=== PATIENT | female | born 1940 | race Caucasian/White ===

== ENCOUNTER 2021-03-05 19:23 | Emergency (ER) | payer MEDICARE ==
--- OUTSIDE RECORDS SUMMARY | 2021-03-05 19:27 | XMS REPORT | Continuity of Care Document ---
:1940 Author Organization [facility] t Address [address] [place] [address] Care Team Providers Name Role Phone MD RAKESH MILLAN Attending Clinician Unavailable YANA Attending Clinician Unavailable Josseline CASTANEDA Attending Clinician Unavailable SUSANNE Attending Clinician Unavailable MD TARA SKINNER Attending Clinician Unavailable DECLAN Attending Clinician Unavailable ALPESH Attending Clinician Unavailable MD RAKESH MILLAN Admitting Clinician Unavailable SUSANNE Admitting Clinician Unavailable MD TARA SKINNER Admitting Clinician Unavailable ALPESH Admitting Clinician Unavailable Problems This patient has no known problems. Allergies, Adverse Reactions, Alerts This patient has no known allergies or adverse reactions. Medications This patient has no known medications. Procedures This patient has no known procedures. Encounters Start End Encounter Admission Attending Care Care Encounter Source Date/Time Date/Time Type Type Clinicians Facility Department ID 2021-03-03 2021-03-03 Outpatient [facility] [id number] 00:00:00 00:00:00 PEDRO [address] 2021-02-19 2021-02-19 [facility] [id number] 00:00:00 00:00:00 PEDRO [address] 2021-02-19 2021-02-19 [facility] [id number] 00:00:00 00:00:00 PEDRO [address] 2021-02-19 2021-02-19 [facility] [id number] 00:00:00 00:00:00 PEDRO [address] 2021-02-19 2021-02-19 [facility] [id number] 00:00:00 00:00:00 PEDRO [facility] 2021-02-02 2021-02-02 Outpatient YANA, [facility] [id number] 00:00:00 00:00:00 PEDRO [address] [facility] 2021-01-08 2021-01-08 Outpatient YANA, [facility] [id number] 00:00:00 00:00:00 PEDRO [facility] 2021-01-08 2021-01-08 Outpatient YANA, [facility] [id number] 00:00:00 00:00:00 PEDRO [address] [facility] 2020-12-18 2020-12-18 Outpatient LEONEL, [facility] [id number] 06:29:00 17:01:00 [facility] 2020-08-06 2020-08-07 Outpatient SUSANNE, [facility] [id number] 00:00:00 00:00:00 JANAK [address] [facility] 2020-07-25 2020-07-25 Outpatient DECLAN, [facility] [id number] 00:00:00 00:00:00 FELIPE 354 [facility] 2020-07-11 2020-07-19 Inpatient SUSANNE, [place] [id number] 00:00:00 00:00:00 JANAK [address] [facility] 2019-11-20 2019-11-21 Inpatient E ALPESH, [facility] [id number] 10:38:00 15:47:00 MART[facility] 2019-02-05 2019-02-05 Inpatient U [facility] [id number] 10:30:00 07:48:00 kwame [facility] Results Test Description Test Time Test Comments Results Result Comments Source SARS-CoV-2 (COVID-19) RNA [Presence] in Respiratory sp ecimen by 2021-03-03 15:56:37 CHANTEL with probe detection Test Item Value Reference Range Interpretation Comme nts SARS-CoV-2 (COVID-19) RNA [Presence] in Respiratory Detected No t-Detected specimen by CHANTEL with probe detection (test code = 15645-3) 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 (test code = 62459-2) Whether the patient has symptoms related to condition of interest (test code = 11019-1) Patient was hospitalized because of this condition (test code = 70019-2) Whether the patient was admitted to intensive care unit (ICU) for condition of interest (test code = 22260-5) Whether patient resides in a congregate care setting (test code = 98484-2) SARS-CoV-2 (COVID-19) RNA [Presence] in Respiratory specimen by CHANTEL with probe [id number] 00:59:54 Test Item Value Reference Range Interpretation Comments SARS-CoV-2 (COVID-19) RNA Not detected Not-Detected [Presence] in Respiratory specimen by CHANTEL with probe detection (test code = 97576-6) 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 (test code = 95439-4) Whether the patient has symptoms related to condition of interest (test code = 39405-8) Patient was hospitalized because of this condition (test code = 38249-0) Whether the patient was admitted to intensive care unit (ICU) for condition of interest (test code = 22453-1) Whether patient resides in a congregate care setting (test code = 90896-2) SARS-CoV-2 (COVID-19) RNA [Presence] in Respiratory specimen by CHANTEL with probe [id number] 00:35:59 Test Item Value Reference Range Interpretation Comments SARS-CoV-2 (COVID-19) RNA Not detected Not-Detected [Presence] in Respiratory specimen by CHANTEL with probe detection (test code = 64302-7) 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 (test code = 59083-5) Whether the patient has symptoms related to condition of interest (test code = 02746-7) Patient was hospitalized because of this condition (test code = 16225-9) Whether the patient was admitted to intensive care unit (ICU) for condition of interest (test code = 45862-2) Whether patient resides in a congregate care setting (test code = 94308-1) SARS-CoV-2 (COVID-19) RNA [Presence] in Respiratory specimen by CHANTEL with probe [id number] 01:44:30 Test Item Value Reference Range Interpretation Comments SARS-CoV-2 (COVID-19) RNA Not detected Not-Detected [Presence] in Respiratory specimen by CHANTEL with probe detection (test code = 54728-6) 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 (test code = 38954-1) Whether the patient has symptoms related to condition of interest (test code = 58698-1) Patient was hospitalized because of this condition (test code = 54956-4) Whether the patient was admitted to intensive care unit (ICU) for condition of interest (test code = 05689-3) Whether patient resides in a congregate care setting (test code = 43449-6)
[2021-03-05 21:43] LABS: Arterial Blood Carboxyhemoglob 1.8 % (0-1.5); Blood Gas Oxyhemoglobin 93.2 % (94-97); Blood O2 Saturation 95.7 % (92-98.5)
[2021-03-05] MEDS ORDERED: ONDANSETRON 4 MG/2 ML VIAL ONE (22:06)
[2021-03-05] MEDS ORDERED: NA CHLORIDE 0.9% 1,000 ML ONE (22:06)
[2021-03-05 22:49] LABS: Absolute Lymphocytes (CBC) 0.7 K/uL (0.7-4.9); Hematocrit 25.1 % (36.0-45.0); Lymphocytes % 7.8 % (15.3-44.8); MPV 6.8 fL (7.6-11.3); RBC Red Blood Cell Count 2.72 M/uL (3.86-4.86)
[2021-03-05 23:02] LABS: Protime INR 1.08
[2021-03-05 23:05] LABS: SARS-COV-2 RT PCR POSITIVE (NEGATIVE)
[2021-03-05 23:15] LABS: Urine Bacteria 20-50 /HPF (<20); Urine Mucus 1+ /HPF (NONE SEEN)
[2021-03-05 23:17] LABS: ALT/SGPT 13 U/L (12-78); AST/SGOT 12 U/L (15-37); Albumin 2.6 g/dL (3.4-5.0); Alkaline Phosphatase 81 U/L (45-117); BUN Blood Urea Nitrogen 66 mg/dL (7-18); Bicarbonate 26 mmol/L (21-32); Bilirubin Direct 0.1 mg/dL (0-0.2); Bilirubin Total 0.4 mg/dL (0.2-1.0); Ferritin 869.5 ng/mL (8-388); Glucose Level 156 mg/dL (74-106); Lipase 202 U/L (73-393); Protein, Total 6.9 g/dL (6.4-8.2); Sodium Level 134 mmol/L (136-145); Troponin (Emerg Dept Use Only) < 0.02 ng/mL (0.0-0.045)
--- NOTE | 2021-03-05 23:53 | ER ---
Nurse's Notes [facility] Name: Sierra Iqbal Age: 80 yrs Sex: Female : 1940 Arrival Date: 03/05/2021 Time: 19:28 Bed 7 Private MD: Diagnosis: Positive Covid 19 Presentation: 03/05 20:08 Chief complaint: Patient states: Tested postitve for Covid on 03/03/21, today I woke up vc1 feeling SOB and vomiting with a fever. I last took Motrin at around 4 pm. Coronavirus screen: Client denies travel out of the [place] in the last 14 days. Client reports previous positive COVID test result. Date of collection: March 03, 2021. Ebola Screen: Patient negative for fever greater than or equal to 101.5 degrees Fahrenheit, and additional compatible Ebola Virus Disease symptoms. Initial Sepsis Screen: Does the patient meet any 2 criteria? RR > 20 per min. Does the patient have a suspected source of infection? No. Patient's initial sepsis screen is negative. Risk Assessment: Do you want to hurt yourself or someone else? Patient reports no desire to harm self or others. Onset of symptoms was March 03, 2021. 20:08 Method Of Arrival: Wheelchair vc1 20:08 Acuity: BRAD 2 vc1 Triage Assessment: 20:11 General: Appears uncomfortable, ill, obese, Behavior is cooperative, drowsy, flat. vc1 Pain: Complains of pain in chest while coughing. Respiratory: Reports shortness of breath labored breathing Onset: The symptoms/episode began/occurred the patient has moderate shortness of breath. Historical: - Allergies: 22:46 No Known Allergies; sm5 - Home Meds: 22:46 isosorbide mononitrate 20 mg Oral tab 1 tab three times a day [Active]; hydralazine 25 sm5 mg Oral tab 1 tab three times a day [Active]; calcium acetate(phosphat bind) 667 mg oral tab 2 tabs before meals [Active]; carvedilol 6.25 mg oral tab 1 tab 2 times per day [Active]; Lasix 40 mg Oral tab 1 tab once daily [Active]; Vitamin C 1,000 mg Oral tab 1,000 mg daily [Active]; Vitamin D3 25 mcg (1,000 unit) oral tab daily [Active]; Iron CR 325mg Oral [Active]; Lantus U-100 Insulin 100 unit/mL Sub-Q soln 50 unit nightly [Active]; aspirin 81 mg Oral tab daily [Active]; atorvastatin 40 mg oral tab 1 tab once daily [Active]; - PMHx: 22:46 Hypertensive disorder; Congestive heart failure; Diabetes mellitus; ESRD; sm5 - PSHx: 22:46 Total abdominal hysterectomy; Pacemaker placement; sm5 - Immunization history:: Client reports receiving the 2nd dose of the Covid vaccine, Flu vaccine is up to date. - Social history:: Smoking status: unknown. Screenin:44 Abuse screen: Denies threats or abuse. Denies injuries from another. Nutritional sm5 screening: No deficits noted. Tuberculosis screening: No symptoms or risk factors identified. Fall Risk No fall in past 12 months (0 pts). No secondary diagnosis (0 pts). IV access (20 points). Ambulatory Aid- None/Bed Rest/Nurse Assist (0 pts). Gait- Normal/Bed Rest/Wheelchair (0 pts) Mental Status- Oriented to own ability (0 pts). Total Calvillo Fall Scale indicates No Risk (0-24 pts). Assessment: 22:56 General: Appears in no apparent distress. Behavior is calm, cooperative. Neuro: No sm5 deficits noted. Level of Consciousness is awake, alert, Oriented to person, place, time, situation. Cardiovascular: Capillary refill < 3 seconds Patient's skin is warm and dry. Rhythm is sinus rhythm. Respiratory: Airway is patent Trachea midline Respiratory effort is even, labored, Breath sounds are clear. GI: Reports nausea. Vital Signs: 20:08 BP 102 / 59; Pulse 78; Resp 28; Temp 98.8; Pulse Ox 98% on R/A; Weight 91.63 kg; Height vc1 5 ft. 5 in. (165.10 cm); Pain 3/10; 23:00 BP 119 / 56; Pulse 73; Resp 20; Pulse Ox 94% on R/A; sm5 20:08 Body Mass Index 33.61 (91.63 kg, 165.10 cm) vc1 ED Course: 19:28 Patient arrived in ED. wm 20:11 Triage completed. vc1 21:09 Yoni Dave MD is Attending Physician. pkl 21:19 Marcos, Sylvie, RN is Primary Nurse. sm5 21:59 CXR XRAY In Process Unspecified. EDMS 22:42 COVID-19/FLU A+B Sent. sm5 22:43 BMP Sent. sm5 22:43 Blood Culture Adult (2) Sent. sm5 22:43 C-Reactive Protein Sent. sm5 22:43 CBC with Diff Sent. sm5 22:43 D-Dimer Sent. sm5 22:43 Ferritin Sent. sm5 22:43 Flu Sent. sm5 22:43 LFT's Sent. sm5 22:43 Lactate Sent. sm5 22:43 Lipase Sent. sm5 22:43 PT-INR Sent. sm5 22:43 Procalcitonin Sent. sm5 22:43 Ptt, Activated Sent. sm5 22:43 Strep Sent. sm5 22:43 Troponin (emerg Dept Use Only) Sent. sm5 22:43 Urine Microscopic Only Sent. sm5 22:45 Arm band placed on right wrist. sm5 22:45 Patient has correct armband on for positive identification. Placed in gown. Bed in low sm5 position. Call light in reach. Side rails up X2. 23:00 No provider procedures requiring assistance completed. Inserted saline lock: 20 gauge sm5 in right hand, using aseptic technique. 23:01 Inserted saline lock: 20 gauge in left antecubital area, using aseptic technique. Blood sm5 collected. 03/06 00:22 IV discontinued, intact, bleeding controlled, No redness/swelling at site. Pressure sm5 dressing applied. Administered Medications: 03/05 22:08 Drug: Zofran (Ondansetron) 4 mg Route: IVP; Site: right hand; 5 03/06 00:23 Follow up: Response: Nausea is decreased 5 03/05 22:09 Drug: NS 0.9% 1000 ml Route: IV; Rate: 75 ml/hr; Site: right hand; sm5 03/06 00:15 Follow up: IV Status: Completed infusion; IV Intake: 300ml 5 00:15 Drug: Zithromax (azithromycin) 500 mg Route: PO; 5 00:24 Follow up: Response: Medication administered at discharge. 5 Intake: 00:15 IV: 300ml; Total: 300ml. 5 Outcome: 03/05 23:52 Discharge ordered by MD. tate 03/06 00:21 Discharged to home via wheelchair, with family. sm5 Condition: stable Discharge instructions given to patient, family, Instructed on discharge instructions, follow up and referral plans. medication usage, Demonstrated understanding of instructions, follow-up care, medications, Prescriptions given X 3. 00:24 Patient left the ED. 5 Signatures: Dispatcher [employer] EDYoni Ortega MD MD pkl Marsh, Wendy wm Mazur, Sarah, RN RN 5 Kourtney Guillen RN RN vc1 Corrections: (The following items were deleted from the chart) 03/05 22:56 22:46 PMHx: Kidney disease; 5 [facility]
--- NOTE | 2021-03-05 23:53 | EDPHYS ---
Physician Documentation [facility] Name: Sierra Iqbal Age: 80 yrs Sex: Female : 1940 Arrival Date: 03/05/2021 Time: 19:28 Bed 7 Private MD: ED Physician Yoni Dave HPI: 03/05 21:49 This 80 yrs old Female presents to ER via Wheelchair with complaints of Shortness Of pkl Breath, Fever, +COVID, Vomiting. 21:49 The patient has shortness of breath at rest. Onset: The symptoms/episode began/occurred pkl today. Associated signs and symptoms: Pertinent positives: non-productive cough, fever, nausea, vomiting. 21:50 Patient tested positive for Covid 19 on 03/03/21 in [place]. Patient has multiple medical pkl conditions, including hypertension, congestive heart failure, pacemaker, diabetes, chronic renal failure on daily peritoneal dialysis. Patient scheduled for triple by pass end of this month.. Historical: - Allergies: 22:46 No Known Allergies; sm5 - Home Meds: 22:46 isosorbide mononitrate 20 mg Oral tab 1 tab three times a day [Active]; hydralazine 25 sm5 mg Oral tab 1 tab three times a day [Active]; calcium acetate(phosphat bind) 667 mg oral tab 2 tabs before meals [Active]; carvedilol 6.25 mg oral tab 1 tab 2 times per day [Active]; Lasix 40 mg Oral tab 1 tab once daily [Active]; Vitamin C 1,000 mg Oral tab 1,000 mg daily [Active]; Vitamin D3 25 mcg (1,000 unit) oral tab daily [Active]; Iron CR 325mg Oral [Active]; Lantus U-100 Insulin 100 unit/mL Sub-Q soln 50 unit nightly [Active]; aspirin 81 mg Oral tab daily [Active]; atorvastatin 40 mg oral tab 1 tab once daily [Active]; - PMHx: 22:46 Hypertensive disorder; Congestive heart failure; Diabetes mellitus; ESRD; sm5 - PSHx: 22:46 Total abdominal hysterectomy; Pacemaker placement; sm5 - Immunization history:: Client reports receiving the 2nd dose of the Covid vaccine, Flu vaccine is up to date. - Social history:: Smoking status: unknown. ROS: 21:50 Eyes: Negative for injury, pain, redness, and discharge, ENT: Negative for injury, pkl pain, and discharge, Neck: Negative for injury, pain, and swelling, Cardiovascular: Negative for chest pain, palpitations, and edema. 21:50 Respiratory: Positive for cough, with no reported sputum, shortness of breath, at rest. 21:50 Abdomen/GI: Positive for nausea and vomiting. 21:50 Back: Negative for acute changes. 21:50 : Negative for urinary symptoms. 21:50 MS/extremity: Negative for acute changes. 21:50 Skin: Negative for rash. 21:50 Neuro: Negative for altered mental status, loss of consciousness. Exam: 21:50 Head/Face: Normocephalic, atraumatic. Eyes: Pupils equal round and reactive to light, pkl extra-ocular motions intact. Lids and lashes normal. Conjunctiva and sclera are non-icteric and not injected. Cornea within normal limits. Periorbital areas with no swelling, redness, or edema. ENT: Nares patent. No nasal discharge, no septal abnormalities noted. Tympanic membranes are normal and external auditory canals are clear. Oropharynx with no redness, swelling, or masses, exudates, or evidence of obstruction, uvula midline. Mucous membranes moist. Neck: Trachea midline, no thyromegaly or masses palpated, and no cervical lymphadenopathy. Supple, full range of motion without nuchal rigidity, or vertebral point tenderness. No Meningismus. Chest/axilla: Normal chest wall appearance and motion. Nontender with no deformity. No lesions are appreciated. Cardiovascular: Regular rate and rhythm with a normal S1 and S2. No gallops, murmurs, or rubs. Normal PMI, no JVD. No pulse deficits. Respiratory: Lungs have equal breath sounds bilaterally, clear to auscultation and percussion. No rales, rhonchi or wheezes noted. No increased work of breathing, no retractions or nasal flaring. Abdomen/GI: Soft, non-tender, with normal bowel sounds. No distension or tympany. No guarding or rebound. No evidence of tenderness throughout. Back: No spinal tenderness. No costovertebral tenderness. Full range of motion. Skin: Warm, dry with normal turgor. Normal color with no rashes, no lesions, and no evidence of cellulitis. MS/ Extremity: Pulses equal, no cyanosis. Neurovascular intact. Full, normal range of motion. Neuro: Awake and alert, GCS 15, oriented to person, place, time, and situation. Cranial nerves II-XII grossly intact. Motor strength 5/5 in all extremities. Sensory grossly intact. Cerebellar exam normal. Normal gait. Vital Signs: 20:08 BP 102 / 59; Pulse 78; Resp 28; Temp 98.8; Pulse Ox 98% on R/A; Weight 91.63 kg; Height vc1 5 ft. 5 in. (165.10 cm); Pain 3/10; 23:00 BP 119 / 56; Pulse 73; Resp 20; Pulse Ox 94% on R/A; sm5 20:08 Body Mass Index 33.61 (91.63 kg, 165.10 cm) vc1 MDM: 21:09 Patient medically screened. pkl 23:46 Data reviewed: vital signs, nurses notes, lab test result(s), EKG, radiologic studies, pkl plain films. ED course: Discussed lab, EKG and imaging studies. Options given to patient for observation or she may go home and return if her symptoms become worse. Patient and daughter prefer to go home and return if her symptoms become worse.. 03/05 21:23 Order name: BMP; Complete Time: 23:30 pkl 03/05 21:23 Order name: Blood Culture Adult (2) pkl 03/05 21:23 Order name: C-Reactive Protein; Complete Time: 23:30 pkl 03/05 21:23 Order name: CBC with Diff; Complete Time: 22:52 pkl 03/05 21:23 Order name: D-Dimer; Complete Time: 23:07 pkl 03/05 21:23 Order name: Ferritin; Complete Time: 23:30 pkl 03/05 21:23 Order name: LFT's; Complete Time: 23:30 pkl 03/05 21:23 Order name: Lactate; Complete Time: 23:08 pkl 03/05 21:23 Order name: Lipase; Complete Time: 23:30 pkl 03/05 21:23 Order name: PT-INR; Complete Time: 23:07 pkl 03/05 21:23 Order name: Procalcitonin; Complete Time: 23:30 pkl 03/05 21:23 Order name: Ptt, Activated; Complete Time: 23:07 pkl 03/05 21:23 Order name: Strep; Complete Time: 22:55 pkl 03/05 21:23 Order name: Troponin (emerg Dept Use Only); Complete Time: 23:30 pkl 03/05 21:23 Order name: Urine Microscopic Only; Complete Time: 23:30 pkl 03/05 21:23 Order name: CXR XRAY pkl 03/05 21:23 Order name: EKG; Complete Time: 21:24 pkl 03/05 21:23 Order name: Cardiac monitoring; Complete Time: 22:13 pkl 03/05 21:23 Order name: Droplet/Contact Precautions; Complete Time: 22:13 pkl 03/05 21:23 Order name: EKG - Nurse/Tech; Complete Time: 22:42 pkl 03/05 21:26 Order name: ABG; Complete Time: 21:57 pkl 03/05 22:22 Order name: COVID-19/FLU A+B; Complete Time: 23:07 EDMS 03/05 22:55 Order name: Throat Culture [facility] 03/05 23:15 Order name: Urine Culture EDVT 03/05 21:23 Order name: [place]; Complete Time: 22:42 pkl 03/05 21:23 Order name: IV Start; Complete Time: 22:42 pkl 03/05 21:23 Order name: Labs collected and sent; Complete Time: 22:42 pkl 03/05 21:23 Order name: O2 Per Protocol; Complete Time: 22:42 pkl 03/05 21:23 Order name: O2 Sat Monitoring; Complete Time: 22:42 pkl 03/05 21:23 Order name: Urine Dipstick-Ancillary (obtain specimen); Complete Time: 22:42 pkl Administered Medications: 22:08 Drug: Zofran (Ondansetron) 4 mg Route: IVP; Site: right hand; 03/06 00:23 Follow up: Response: Nausea is decreased 03/05 22:09 Drug: NS 0.9% 1000 ml Route: IV; Rate: 75 ml/hr; Site: right hand; 5 03/06 00:15 Follow up: IV Status: Completed infusion; IV Intake: 300ml 00:15 Drug: Zithromax (azithromycin) 500 mg Route: PO; 5 00:24 Follow up: Response: Medication administered at discharge. sm5 Disposition Summary: 03/05/21 23:52 Discharge Ordered Location: Home pkl Problem: new pkl Symptoms: are unchanged pkl Condition: Stable pkl Diagnosis - Positive Covid 19 pkl Followup: pkl - With: Private Physician - When: 2 - 3 days - Reason: Re-evaluation by your physician Discharge Instructions: - Discharge Summary Sheet pkl Forms: - Medication Reconciliation Form pkl - Thank You Letter pkl - Antibiotic Education pkl - Prescription Opioid Use pkl Prescriptions: - albuterol sulfate 90 mcg/actuation Inhalation HFA aerosol inhaler - inhale 2 puff by INHALATION route every 4-6 hours; 1 canister; Refills: 0, pkl Product Selection Permitted - Zofran 4 mg Oral Tablet - take 1 tablet by ORAL route every 12 hours As needed; 10 tablet; Refills: 0, pkl Product Selection Permitted - Zithromax Z-Nima 250 mg Oral Tablet - take 1 tablet by ORAL route as directed for 5 days Day 1 - take two (2) tablets pkl one time. Day 2, 3, 4 , 5 take one (1) tablet once daily.; 6 tablet; Refills: 0, Product Selection Permitted Signatures: Dispatcher [employer] EDMS Yoni Dave MD MD pkl Sylvie Rodríguez RN RN 5 Corrections: (The following items were deleted from the chart) 03/05 21:49 21:49 HEMOGLOBIN A1C+CHEM A1C.LAB.BRZ ordered. EDMS EDMS 22:22 21:26 CORONAVIRUS+MR.LAB.BRZ ordered. EDMS EDMS 22:56 22:46 PMHx: Kidney disease; 5 5
[2021-03-06] MEDS ORDERED: AZITHROMYCIN 250 MG TAB ONE (00:07)
[2021-03-06 00:48] VITALS: TEMP 98.8
[2021-03-06 00:49] VITALS: BP 119/56; O2SAT 94
--- NOTE | 2021-03-06 08:57 | RAD REPORT ---
EXAM DESCRIPTION: RAD - Chest Single View - 03/05/2021 9:59 pm CLINICAL HISTORY: Cough;Fever COMPARISON: None TECHNIQUE: AP portable chest image was obtained 03/05/2021 9:59 pm . FINDINGS: Lungs are clear. Interstitial pattern is believed be baseline for the patient. Heart and v asculature are normal. No measurable pleural effusion and no pneumothorax. No acute bony abnormality seen. No acute aortic findings suspected. Left subclavian pacemaker in place. IMPRESSION: No acute cardiopulmonary process.
--- NOTE | 2021-03-07 13:50 | EKG ---
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
== END 2021-03-06 00:24 | disposition home or self-care (01) ==
LOC: ER 19:23
DX: U07.1 COVID-19 (principal); E11.22 Type 2 diabetes mellitus with diabetic chronic kidney disease; I12.0 Hypertensive chronic kidney disease with stage 5 chronic kidney disease or end stage renal disease; N18.6 End stage renal disease; I50.9 Heart failure, unspecified
CPT/HCPCS: 96361; 93005; 87040 ×2; 87070; 87088; 85025; 87086; 80048; 36415; 87205 ×2; 85610; 85379; 80076; 87081; 83605; 85730; 87077; 87186; 81015; 84484; 82728; 83690; 84145; 0240U; 86140; 71045; 82805; 96374; 99284; J7030; J2405

== ENCOUNTER 2021-04-15 08:28 | Inpatient (IN) | payer MEDICARE ==
--- NOTE | 2021-04-16 14:03 | R.PREADM ---
PRE-ADMISSION SCREENING FORM SCREENING DATE AND TIME 04/15/2021 10:01 (PMP PROJECT MANAGER) ANTICIPATED REHAB ADMISSION DATE 04/17/2021 REFERRING FACILITY [facility] REFERRAL DATE AND TIME 04/10/2021 10:01 (PMP PROJECT MANAGER) REFERRAL OFFICE PHONE [phone] ACUTE ADMIT DATE 04/06/2021 HOSPITALIZED IN LAST 60 DAYS? 04/06/21 Previous Rehabilitation(s): No. ACUTE NUTRITION TECHNICIAN/DC COMMUNICATION AND OUTREACH MANAGER SAMANTHA ATTENDING PHYSICIAN MIRANDA LUI MD REFERRING PHYSICIAN MIRANDA LUI MD PRIMARY CARE PHYSICIAN [facility] CLINICAL LIAISON Laurie Lopez PHYSICIAN REVIEWER Dr. Stephen Goetz M.D. MR# [id number] NAME NOEL REAL ADDRESS [address] [place] [address] PHONE [facility] [id number] DATE OF 1940 AGE 80 SSN# [id number] GENDER female MARITAL STATUS PREF. LANGUAGE (IF NON-LATVIAN) [place]an ADMIT FROM 02 - [facility] PRE-HOSPITAL LIVING SETTING 01 - Home (private home/apt. board/care, assisted living, [place] [facility], transitional living) HOME TYPE AND DETAILS Type of home: single family house # of levels in the residence: 1 # of steps within the residence: 0 # of steps to enter the residence: 0 PRE-HOSPITAL LIVING WITH Alone FAMILY SUPPORT No PRIMARY FAMILY CONTACT NAME GUNJAN GRANGER PRIMARY FAMILY CONTACT PHONE PRIMARY FAMILY CONTACT RELATIONSHIP Daughter PHONE PRIMARY FAMILY CONTACT ON ADM.? no IS PRIMARY FAMILY CONTACT AUTH. REP.? no 1ST EMERGENCY CONTACT GUNJAN GRANGER 1ST CONTACT PHONE 1ST CONTACT RELATIONSHIP Daughter PHONE 1ST CONTACT ON ADM. no IS 1ST CONTACT AUTH. REP.? no PHONE 2ND CONTACT ON ADM.? no PATIENT EMPLOYMENT STATUS Retired (for age) PATIENT EMPLOYER No Employer PAYOR INFORMATION: 1ST PAYOR NAME [employer] 1ST PAYOR PHONE [phone] 1ST PAYOR INJURY/ILLNESS DUE TO ACCIDENT? No ANOTHER DEMOCRAT RESPONSIBLE? No PRIMARY REHAB/ACUTE DIAGNOSIS: ISCHEMIC CARDIOMYOPATHY CABG X4 ONSET DATE 04/06/2021 REHAB IMPAIRMENT CATEGORY (JAN): 14 Cardiac does NOT meet 60% rule PRIMARY DIAGNOSIS-RELATED SURGERIES: CABG X 4 04/06/21 INTERVENTIONS: - COVID-19 MONITORING VITALS ASSESSMENT OF NEED OF O2 - CAD MANAGEMENT - HYPERTENSION Blood pressure will be regularly assessed and medications administered as per physician recommendatio ns. - CHF daily weights will be obtained monitoring of patient symptoms and medication management by physician - ESRD Regular blood draws will occur to monitor patient's kidney function and pt will receive necessary sumit lysis as managed by physician - DIABETES Monitor blood glucose levels and administer medication as indicated by Physician Diet will be customized to manage diabetic needs. - ANEMIA - Surgical Site Management regular assessment of surgical site and appropriate dressing changes as warranted by physician RISK FOR COMPLICATIONS: - CARDIC CARDIOMYOPATHY - EXTUBATED HYPOTENSION POST-OP HYPOTENSION - FALLS Patient will be evaluated for Fall Precautions and will be placed on Fall Precautions as indicated pe r protocol. - ANEMIA - DIABETIC COMPLICATIONS pt will receive a specialized diet to help manage blood glucose levels Regular monitoring and management of blood glucose levels. - CVA pt's blood pressures have been inconsistent and require monitoring and medication management as inidi cated by physician. pt has a history of A-Fib and symptoms will be monitored - SKIN BREAKDOWN Nursing will assess skin daily using assessment tool and will place on Skin Breakdown Precautions as Indicated per protocol - DVT PTT and INR will be monitored to effectively mitigate risk for development of DVT or PE while here. Medications will be administered as per MD Mobility training and regular exercise - Pneumonia Symptoms will be monitored and chest x-rays conducted as warranted Medication management as needed pt will be trained on incentive spirometry and deep breathing activities SUMMARY OF ACUTE HOSPITALIZATION: Pt. is a 80 yo Right-handed female. On 04/06/2021 she was admitted to [facility] with diagnosis ISCHEMIC CARDIOMYOPATHY CABG X4. Her impairment category is Cardiac 09 - Cardiac Disorders (09). Pre-morbidly, Pt. was independent/mod-I in Locomotion, Safety Awareness, Social Cognition, and Balanc e; and she had good Sphincter Control, Self-Care, Communication, and Endurance. Currently, she has deficits of Locomotion, Safety Awareness, Social Cognition, Balance, Transfers Con trol, Sphincter Control, Self-Care, Communication, and Endurance. Pt. is now referred to [facility] for acute in-patient rehabilitation in order to maximize patient's functional independence in activities of daily living, strength, ROM, and mobi lity. Patient has realistic goal of being discharged at assistance level 7-Ind to reside at Home with Pt s elf. 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) End stage renal disease (N18.6) ON PERITONEAL DIALYSIS HYPERLIPIDEMIA TYPE 2 DIABETES MELLITUS ANEMIA SECONDARY TO CHRONIC KIDNEY DISEASE HISTORY OF STROKES OBESITY COVID 19 (POST) A-Fib Pacemaker PAST SURGICAL HISTORY: Pacemaker CABG MEDICATION ALLERGIES: No Known Drug Allergies (NKDA) ENVIRONMENTAL ALLERGIES: - Substance Allergies None Known - Other Allergies None Known CODE STATUS: Full code WEIGHT/HEIGHT/BMI: WEIGHT 233 lbs HEIGHT 5' 5" BMI 38.8 DIET: - Diet Type Regular - Diet - Solid Texture Regular - Diet - Liquid Texture Regular - Tube Feed N/A SKIN DIAGRAM: Incision on Chest; extent - small; stage - NS(Not Stageable). Treatment - Per Physician's Orders. REVIEW OF SYSTEMS: - Gen Alert and awake Lying in bed No apparent distress Oriented to: person, time, and place - Vital Signs Temperature: 97.5 F SBP/DBP: 127/78 Pulse: 79 Resp: 17 Vital signs stable, afebrile - CVS RRR VITAL SIGNS Temperature: 97.5 F SBP/DBP: 127/78 (04/15/21) Pulse: 79 Resp: 17 Vital signs stable, afebrile MEDICATIONS/TREATMENT: Other- See attached MAR (Medication Administration Record). CURRENT SPHINCTER CONTROL: Pre-hospital bladder status: unspecified # of bladder accidents in the last 7 days prior to screenin Pre-hospital bowel status: unspecified # of bowel accidents in the last 7 days prior to screenin Last Bowel Movement Date: 04/15/2021 CURRENT LOCOMOTION STATUS: distance walked 30' 30' 60'feet with IVEA and CGA DETAILED CURRENT FUNCTIONAL STATUS: - Bladder accident frequency: 7-Ind - No accidents in the past 7 days - Bowel accident frequency: 7-Ind - No accidents in the past 7 days - Walking score based on distance walked: 0(N/A) score based on distance walked: 1(<=50ft) - Wheelchair score based on distance traveled: 0(N/A) QI SCORES: - Self-Care A. Eating 03-Partial/moderate assistance B. Oral hygiene 03-Partial/moderate assistance C. Toileting hygiene 03-Partial/moderate assistance E. Shower/bathe self 03-Partial/moderate assistance F. Upper body dressing 03-Partial/moderate assistance G. Lower body dressing 03-Partial/moderate assistance H. Putting on/taking off footwear 88-Not attempted due to medical condition or safety concerns - Mobility A. Roll left and right 04-Supervision or touching assistance B. Sit to lying 03-Partial/moderate assistance C. Lying to sitting on side of bed 03-Partial/moderate assistance D. Sit to stand 03-Partial/moderate assistance E. Chair/fpr-[id number] transfer 03-Partial/moderate assistance F. Toilet transfer 03-Partial/moderate assistance G. Car transfer 88-Not attempted due to medical condition or safety concerns I. Walk 10 feet 03-Partial/moderate assistance J. Walk 50 feet with two turns 88-Not attempted due to medical condition or safety concerns K. Walk 150 feet 88-Not attempted due to medical condition or safety concerns L. Walking 10 feet on uneven surfaces 88-Not attempted due to medical condition or safety concerns M. 1 step (curb) 88-Not attempted due to medical condition or safety concerns N. 4 steps 88-Not attempted due to medical condition or safety concerns O. 12 steps 88-Not attempted due to medical condition or safety concerns P. Picking up object 88-Not attempted due to medical condition or safety concerns R. Wheel 50 feet with two turns 88-Not attempted due to medical condition or safety concerns S. Wheel 150 feet 88-Not attempted due to medical condition or safety concerns - Bladder and Bowel Bladder continence Bowel continence - Endurance Fair - Balance Fair - Safety Awareness Fair CURRENT FUNC. DEFICITS: Self-Care, Mobility, Endurance, Balance, and Safety Awareness CURRENT / PREVIOUS ASSISTIVE DEVICES: Rolling Walker HISTORY OF FALLS. HAS THE PATIENT HAD TWO OR MORE FALLS IN THE PAST YEAR OR ANY FALL WITH INJURY IN T HE PAST YEAR?: No PRIOR SURGERY. DID THE PATIENT HAVE MAJOR SURGERY DURING THE 100 DAYS PRIOR TO ADMISSION?: Yes THERAPY NOTES FROM ACUTE CARE: Attached. SPECIAL NEEDS: - Safety Concerns Skin breakdown precautions needed due to skin breakdown risk - Sternal Precautions s/p CABG x4 PRECAUTIONS: - Fall Precaution SAFTY AND FALL PATIENT NEEDS ACTIVE AND ONGOING THERAPEUTIC INTERVENTION OF MULTIPLE THERAPY DISCIPLINES, INCLUDING: - Dietary and Nutrition Adequate Nutrition. Nutritional Education. Nutritional Supplements. - Occupational Therapy Cognitive Retraining. Visual Perceptual Training. ADL Training. Adaptive Equipment. Evaluate and Glenny t. Safety Awareness. Transfer Training. Patient/Family Education. - Speech Therapy Cognitive Training. Expressive Language Skills. Memory Strategies. Receptive Language Skills. Speech Intelligibility Training. Evaluate and Treat. - Physical Therapy Mobility Training. Gait Training. Safety Awareness. Transfer Training. Balance Training. Evaluate and Treat. PATIENT NEEDS CLOSE MEDICAL SUPERVISION BY A REHABILITATION PHYSICIAN FOR: Coordination of Treatment Team Medical and Co-Morbidity Management Wound Care Pain Management Diabetes Management Post-Op Complications DVT Management PATIENT REQUIRES 24X7 REHAB NURSING FOR MEDICAL AND FUNCTIONAL MGT. OF THE FOLLOWING DEFICITS: Disease Management Medication Management Patient/Family Education Providing Safe Environment Skin Integrity Respiratory/Airway Management PATIENT REQUIRES INTENSIVE, COORDINATED INTERDISCIPLINARY APPROACH TO REHAB: Arranging Home Equipment/Services Discharge Planning Family Intervention/Training Sustainability Engineer/Case Management PATIENT REHAB POTENTIAL: Adela REAL is able and expected to receive 3 hours of individualized therapy daily on at least 5 o f every 7 days Adela FARHNA's prognosis for significant practical improvement within a reasonable period of time ap pears Good Expected level of measurable improvement will be of a practical value to Adela FARHAN's functional c apacity or adaptations to impairments Has a viable Discharge Plan Medically appropriate; condition is sufficiently stable to participate in intensive rehab program DISCHARGE PLAN: - Estimated Length of Stay (days) 10. - Consensus on plan Discharge plan has been discussed with primary caregiver. Patient/Family is in agreement with the antonino n. Primary caregiver is in agreement with the plan. - Patient/Family Goals Return home independently. - Planned Living Setting Upon Discharge Home, to live alone. Transitional Living. Primary caregiver: Pt self. RECOMMENDED CARE LEVEL: IRF RECOMMENDATION DETAILS: Recommended Admission to Comprehensive Rehabilitation Program to Increase Functional [place] SCREENER'S COMPLETENESS CONFIRMATION: - Screening Confirmation The patient data collection on this preadmission screening form is finished PHYSICIANS REVIEW AND ADMISSION DETERMINATION Admit - Based on my review of the Pre-Admission Screening results, in my medical judgment and experie nce, I concur with the findings and recommend admission to [facility], as this patient requires an IRF level of care. SIGNATURE PANEL: [employer] - [electronically] signed by Laurie Lopez on 04/16/2021 at 12:02 (PMP PROJECT MANAGER) [employer] - [electronically] signed by Kuldeep Fang PT on 04/16/2021 at 12:19 (PMP PROJECT MANAGER) Physician Reviewer - [electronically] signed by Dr. Stephen Goetz M.D. on 04/16/2021 at 14:02 (PMP PROJECT MANAGER )
--- OUTSIDE RECORDS SUMMARY | 2021-04-16 16:30 | XMS REPORT | Continuity of Care Document ---
:[address] [facility] t Address [address] [place] [address] Care Team Providers Name Role Phone Mahsa Cedillo MD Primary Care Physician LISANDRO Attending Clinician Unavailable MD VINNY MCMAHON Attending Clinician Unavailable Abel Tim Attending Clinician Jan Morejon MD Attending Clinician JIM Attending Clinician Unavailable Abdiaziz JAIMES Attending Clinician Unavailable Sivan Parikh RN Attending Clinician Unavailable Fabio MICHEL Attending Clinician Unavailable Arlene Park RN Attending Clinician Unavailable Jaqui JAIMES Attending Clinician Unavailable Josesline CASTANEDA Attending Clinician Unavailable Madyson Nolan MD Attending Clinician Eleuterio Chaney MD Attending Clinician Chantal INMAN, TDanielle Attending Clinician Sivan Braga MD Attending Clinician Alberto Arambula MD Attending Clinician Kacie Turpin MD Attending Clinician ALPESH Attending Clinician Unavailable HU Admitting Clinician Unavailable MD Veena LUI Admitting Clinician Unavailable SUSANNE Admitting Clinician Unavailable ALPESH Admitting Clinician Unavailable Payers Payer Name Policy Type Policy Number Effective Date Expiration Date S ource Problems Condition Condition Condition Status Onset Resolution Last Treating Co mments Source Name Details Category Date Date Treatment Clinician Date COVID-19 COVID-19 Disease Active Metho di virus virus 03-27 st detected detected 00:00: Hospit a 00 l 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 Added automatic ally from request for surgery [id number] Unstable Unstable Disease Active 2020-02 Overview: Me yessenia angina angina 2- Form[facility]in [facility] pectoris pectoris 00:00: g of this Hos jimena 00 note l might be different from the original. Added automatic ally from request for surgery [id number] Ischemic Ischemic Disease Active 2020-02 Overview: Me yessenia cardiomyop cardiomyop 2- Formattin st athy athy 00:00: g of this Hospita 00 note l might be different from the original. Added automatic ally from request for surgery [id number] Syncope Syncope Disease Active Methodi 08-06 st 00:00: Hospita 00 l Hypotensiv Hypotensiv Disease Active M ethodi e episode e episode 08-06 st 00:00: Hospita 00 l Renal Renal Disease Active Methodi disease disease 07-11 st 00:00: Hospita 00 l Body Mass Diagnosis Active 2014-06-12 Memoria Index 02:03:24 l 34.0-34.9, Body Torin n adult Mass Index 34.0-34.9, adult Active Diagnosis 06/12/2014 [facility] Dysuria Diagnosis Active 2014-06-12 Me moria 02:02:48 l Dysuria Preet Active Diagnosis 06/12/2014 [facility] pre-operat Diagnosis Active 2014-06-12 Memoria david 02:00:19 l examinatio Torin n n pre-operat david examinatio n Active Diagnosis 06/12/2014 [facility] Unspecifie Diagnosis Active 2014-06-12 Memoria d cataract 02:00:19 l Preet Unspecifie d cataract Active Diagnosis 06/12/2014 [facility] 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 Active Problem 5 [facility] CVA Problem Active 2015-01-30 Memor ia (cerebral 03:02:19 l vascular CVA Preet accident) (cerebral vascular accident) Active Problem 01/30/2015 [facility] Dizziness Diagnosis Active 2014-06-12 Memoria and 02:03:24 l giddiness Preet Dizziness and giddiness Active Diagnosis 06/12/2014 [facility] Diabetes Problem Active 2015-01-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 03:02:19 l manifestat Diabetes He rmann ions, type with renal II or manifestat unspecifie ions, type d type, II or uncontroll unspecifie ed d type, uncontroll ed Active Problem 5 [facility] Care Diabetes Problem Active 2015-01-30 Mem oria mellitus 03:02:19 l without Diabetes Gem nn mention of mellitus complicati without on, type mention of II or complicati unspecifie on, type d type, II or not stated unspecifie as d type, uncontroll not stated ed as uncontroll ed Active Problem 5 [facility] DM II [facility] Problem Active 2015-01-30 Me moria 03:02:19 l DM II [place] [facility] Active Problem 01/30/2015 [facility] TRANSIENT Problem Active 2015-01-30 Me moria ISCHEMIC 03:02:19 l ATTACK(TIA Torin n ) TRANSIENT ISCHEMIC ATTACK(TIA ) Active Problem 01/30/2015 [facility] HYPERTENSI Problem Active 2015-01-30 M emoria ON 03:02:19 l [place] HYPERTENSI ON Active Problem 5 [facility] Care HYPERLIPID Problem Active 2015-01-30 M emoria EMIA 03:02:19 l [place] HYPERLIPID EMIA Active Problem 01/30/2015 [facility] Mixed Problem Active 2015-01-30 Memor ia hyperlipid 03:02:19 l emia Mixed Preet hyperlipid emia Active Problem 01/30/2015 [facility] Diabetes Problem Active 2015-01-30 Mem oria mellitus 03:02:19 l without Diabetes Gem nn mention of mellitus complicati without on, type I mention of [juvenile complicati type], not on, type I stated as [juvenile uncontroll type], not ed stated as uncontroll ed Active Problem 5 [facility] Allergies, Adverse Reactions, Alerts This patient has no known allergies or adverse reactions. Family History Family Member Diagnosis Comments Start Date Stop Date Source [facility] mother Cancer [facility] Social History Social Habit Start Date Stop Date Quantity Comments Source History of Smoker [facility] use Hospital Exposure to Not sure [facility] SARS-CoV-2 Hospital (event) Alcohol intake 2021-03-24 2021-03-24 Current [facility] 00:00:00 00:00:00 non-drinker of Hospital alcohol (finding) Tobacco use and 2021-02-19 2021-02-19 Smokeless tobacco Me [facility]ist exposure 00:00:00 00:00:00 [place] [facility] [place]01-20 2015-01-20 [facility] 00:00:00 00:00:00 Sex Ass[birth year] At [birth year] F [facility] 00:00:00 00:00:00 Hospital Smoking Status Start Date Stop Date Source Ex-smoker 2021-02-19 00:00:00 2021-02-19 00:00:00 [facility] Medications Ordered Filled Start Stop Current Ordering Indication Dosage Frequency Signature Comments Components Source Medication Medication Date Date Medication? Clinician (SIG) Name Name ciprofloxac 2021- Yes 500mg Q.5D Take 1 Me thodi in (Cipro) 03-[address] 500 MG 00:00: 05:59 (500 mg Hospita tablet 00 :00 total) by l mouth 2 (two) times a day for 5 days. calcitrioL Yes .25ug QD Take 0.25 M ethodi (ROCALTROL) 1-[address] 0.25 MCG 16:00: mouth Hospita capsule 47 daily. l nitroglycer Yes .4mg Place 0.4 M ethodi in 1-[address] (NITROSTAT) 16:00: the tongue Hospita 0.4 MG SL 46 every 5 l tablet (five) minutes as needed for chest pain. zinc Yes Take by Methodi sulfate 1-[address] (ZINC-220 16:00: Hospita ORAL) 46 l vitamin B Yes Take by Metho di complex/fol 1-[address] ic acid (B 16:00: Hospita COMPLEX 100 46 l ORAL) insulin Yes 30U QD Inject 30 Metho di GLARGINE 1-[address] (Lantus 15:58: under the Hospi ta Solostar 10 skin every l U-100 morning. Insulin) 100 unit/mL injection (pen) aspirin Yes 81mg QD Take 81 mg Meth marsha (ECOTRIN) 1-[address] 81 MG 15:58: daily. Hospita enteric 10 l coated tablet ferrous Yes 325mg QD Take 325 Metho di sulfate 325 1-[address] (65 FE) MG 15:58: mouth Hospit a tablet 10 daily with l breakfast. atorvastati Yes 40mg QD Take 40 mg Methodi n (LIPITOR) 1-[address] 40 mg 15:58: nightly. Hospita tablet 10 l furosemide Yes 40mg QD Take 40 mg M ethodi (LASIX) 40 1-[address] mg tablet 15:58: daily. Ran Ho spita 10 out of l medication ascorbic Yes 1000mg QD Take 1,000 M ethodi acid, 1-[address] vitamin C, 15:58: mouth Hospit a (vitamin C) 10 daily. l 1000 MG tablet cholecalcif Yes 1000U QD Take 1,000 Methodi arvin, 1-[address] vitamin D3, 15:58: mouth Hospi ta 25 mcg 10 daily. l (1,000 unit) capsule isosorbide Yes 20mg Q.[id number] Take 20 mg Methodi dinitrate 1-25 [id number] [address] mouth [address] (ISORDIL) 15:58: 3D (three) Hospi ta 20 MG 10 times a l tablet day. hydrALAZINE Yes 25mg Q.[id number] Take 25 mg Methodi (APRESOLINE 1-25 [id number] by mouth 3 st ) 25 MG 15:58: 3D (three) Hospita tablet 10 times a l day. calcium Yes 1334mg Q.[id number] Take 1,334 Methodi acetate,silvano 1-25 [id number] mg by s t sphat bind, 15:58: 3D mouth 3 Hos jimena (PHOSLO) 10 (three) l 667 mg times a capsule day with meals. carvediloL Yes 6.25mg Q.5D Take 6.25 Methodi (COREG) 1-[address] 6.25 MG 15:58: mouth 2 Hospita tablet 10 (two) l times a day with meals. ciprofloxac 2020-02- No 500mg Q.5D Take 1 Me thodi in (Cipro) 203-[address] 500 MG 00:00: 05:59 (500 mg Hospita tablet 00 :00 total) by l mouth 2 (two) times a day for 7 days. isosorbide 2020- No 20mg Q.03010070 Take 20 mg Methodi dinitrate 6-10 06-10 [id number] by mouth [address] (ISORDIL) 16:31: 00:00 3D (three) Hosp bentley 20 MG 00 :00 times a l tablet day. carvediloL No 6.25mg Q.5D Take 6.25 Methodi (COREG) 6-10 06-[address] 6.25 MG 16:31: 00:00 mouth 2 Hospit a tablet 00 :00 (two) l times a day with meals. hydrALAZINE 2020- No 37.5mg Q.[id number] Take 37.5 Methodi (APRESOLINE 6-10 06-[id number] ) 25 MG 16:31: 00:00 3D mouth 3 Hospit a tablet 00 :00 (three) l times a day. pantoprazol 2020- No 40mg Q24H Take 40 mg Methodi e 08-06- by mouth st (PROTONIX) 14:19: 00:00 daily as Ho spita 40 MG EC 01 :00 needed. l tablet ascorbic 2020- No 500mg QD Take 500 Met hodi acid, 08-06-[address] vitamin C, 14:17: 00:00 mouth Hospi ta (VITAMIN C) 25 :00 daily. l 500 MG tablet furosemide 2020- No 40mg Q24H Take 40 mg Methodi (LASIX) 40 5-20 05-[address] mg tablet 12:15: 00:00 daily as Hos jimena 16 :00 needed. l furosemide 2020- No 40mg QD Take 1 Meth marsha (LASIX) 40 5-20 06-09 tablet (40 st mg tablet 00:00: 00:00 mg total) Ho spita 00 :00 by mouth l daily for 30 days. LANTUS 2015-02- No Methodi SOLOSTAR 0-03 05-14 st 100 unit/mL 00:00: 00:00 Hospi ta (3 mL) 00 :00 l insulin pen atorvastati 2020- No Metho di n (LIPITOR) 10-23 05-14 st 80 MG 00:00: 00:00 Hospita tablet 00 :00 l lisinopril 2020- No Method i (PRINIVIL,Z 7 05-14 st ESTRIL) 40 00:00: 00:00 Hospit a MG tablet 00 :00 l Lantus 2014-02 Yes Pallavolu INJECT 50 M emoria SoloStar 2-03 Melendez UNITS l 03:02: SUBCUTANEO [place] 19 USLY ONCE DAILY Aspirin Yes Pallavolu 1 tablet M emoria 4-15 Melendez l 02:03: [place] 24 Plavix Yes Pallavolu 1 tablet Me moria 4-15 Melendez Once a day l 02:03: Orally 90 [place] 24 days Novolin Yes Pallavolu 20 UNITS M emoria 70/30 4-15 Melendez l 02:03: 24 Meclizine Yes Pallavolu 1 tablet Memoria HCl 4-15 Melendez l 02:03: 24 Pantoprazol Yes Pallavolu 1 tablet Memoria e Sodium 4-15 Melendez l 02:03: [place] 24 Fenofibrate Yes Pallavolu TAKE ONE Memoria 4-15 Melendez TABLET BY l 02:03: MOUTH ONCE [place] 24 DAILY Lisinopril Yes Pallavolu TAKE ONE Memoria 4-15 Melendez TABLET BY l 02:03: MOUTH ONCE [place] 24 DAILY Carvedilol Yes Pallavolu TAKE ONE Memoria 4-15 Melendez TABLET BY l 02:03: MOUTH [place] 24 TWICE DAILY Simvastatin Yes Pallavolu 1 tablet Memoria 4-15 Melendez l 02:03: [place] 24 Simvastatin Yes Pallavolu 1 tablet Memoria 4-15 Melendez l 02:02: [place] 48 Cipro Yes Pallavolu 1 tablet Mem oria 3-20 Melendez l 00:00: Preet 00 Lantus 0 Yes Pallavolu 40 UNITS Me moria SoloStar 3-13 Melendez l 00:00: Vital Signs Vital Name Observation Time Observation Value Comments Source Body height 2021-03-25 16:20:00 165.1 cm [facility] Body weight 2021-03-25 16:20:00 89.086 kg [facility] BMI 2021-03-25 16:20:00 32.68 kg/m2 [facility] Systolic blood 2021-03-25 15:49:00 128 mm[Hg] [facility] pressure Diastolic blood 2021-03-25 15:49:00 60 mm[Hg] [facility] pressure Heart rate 2021-03-25 15:49:00 73 /min [facility] Body temperature 2021-03-25 15:49:00 35.89 Jennyfer [facility] Respiratory rate 2021-03-25 15:49:00 20 /min [facility] Oxygen saturation in 2021-03-25 15:49:00 100 /min [facility] Arterial blood by Pulse oximetry Weight 2014-06-10 15:00[facility] Oral (F) 2014-06-10 15:00:00 98.4 F [facility] Heart Rate 2014-06-10 15:00:00 [facility] Diastolic (mm Hg) 2014-06-10 15:00:00 Mem orial [place] Systolic (mm Hg) 2014-06-10 15:00:00 Alireza rial [place] Weight 2014-05-17 15:15:00 [facility] Temperature Oral (F) 2014-05-17 15:15:00 98.6 F [facility] Preet Diastolic (mm Hg) 2014-05-17 15:15:00 Mem orial Preet Systolic (mm Hg) 2014-05-17 15:15:00 Alireza russell Preet Weight 2014-03-25 15:45:00 [facility] [place] Temperature Oral (F) 2014-03-25 15:45:00 97.9 F [facility] Heart Rate 2014-03-25 15:45:00 [facility] [place] Diastolic (mm Hg) 2014-03-25 15:45:00 Mem orial [place] Systolic (mm Hg) 2014-03-25 15:45:00 Alireza riakwame Preet Procedures Procedure Date / Time Performing Clinician Source Performed CABG, WITH ENDOSCOPIC VEIN 2021-04-03 13:30:00 Dwain Morejon in [facility] HARVESTING URINE CULTURE 2021-03-25 17:10:00 [facility] XR CHEST 2 VW 2021-03-25 16:48:19 [facility] TYPE AND SCREEN 2021-03-25 16:00:00 [facility] HC COMPLETE BLD COUNT 2021-03-25 16:00:00 [facility] W/AUTO DIFF BASIC METABOLIC PANEL 2021-03-25 16:00:00 [facility] PROTHROMBIN TIME WITH INR 2021-03-25 16:00:00 [facility] PARTIAL THROMBOPLASTIN 2021-03-25 16:00:00 [facility] TIME (PTT) URINALYSIS SCREEN AND 2021-03-25 16:00:00 [facility] MICROSCOPY, WITH REFLEX TO CULTURE D-DIMER 2021-03-25 16:00:00 Dwain Morejon [facility] ESTIMATED GFR 2021-03-25 16:00:00 [facility] COVID-19 QUALITATIVE 2021-03-03 15:16:00 Jayant Arambula [facility] RT-PCR COVID-19 QUALITATIVE 2021-02-19 19:44:00 Dwain Morejon [facility] RT-PCR XR CHEST 2 VW 2021-02-19 19:34:25 Dwain Morejon [facility] URINE CULTURE 2021-02-19 19:24:00 Dwain Morejon [facility] ECG PRE/POST OP 2021-02-19 18:49:51 Dwain Morejon [facility] URINALYSIS SCREEN AND 2021-02-19 18:49:00 [facility] MICROSCOPY, WITH REFLEX TO CULTURE MRSA PCR 2021-02-19 18:48:00 Jean-Pierre [facility] LIPID PANEL 2021-02-19 18:43:00 Jean-Pierre [facility] HEMOGLOBIN A1C 2021-02-19 18:43:00 Jean-Pierre [facility] PARTIAL THROMBOPLASTIN 2021-02-19 18:43:00 Dwain Morejon [facility] TIME (PTT) PROTHROMBIN TIME WITH INR 2021-02-19 18:43:00 [facility] COMPLETE BLD COUNT 2021-02-19 18:43:00 Dwain Morejon [facility] W/AUTO DIFF TYPE AND SCREEN 2021-02-19 18:43:00 Dwain Morejon [facility] COMPREHENSIVE METABOLIC 2021-02-19 18:43:00 Dwain Morejon [facility] PANEL ESTIMATED GFR 2021-02-19 18:43:00 Dwain Morejon [facility] MAGNESIUM LEVEL 2021-02-19 18:43:00 Dwain Morejon [facility] ARTERIAL BLOOD GAS 2021-02-19 18:24:00 Dwain Morejon [facility] US CAROTID DUPLEX 2021-02-02 19:14:00 Dwain Morejon [facility] BILATERAL CV CATH EXTERNAL STUDY 2021-01-08 20:39:13 Dwain Morejon [facility] POC GLUCOSE 2020-08-07 20:42:00 Bhaskar Chaney [facility] sarah Mcclellan HEPATITIS B SURFACE AB, 2020-08-07 17:32:00 [facility] QUANTITATIVE HEPATITIS B SURFACE 2020-08-07 [facility]:32[facility] POC GLUCOSE 2020-08-07 16:08:00 Bhaskar Chaney spital Shadaab POC GLUCOSE 2020-08-07 12:56:00 Bhaskar Chaney [facility] Shadaab HC COMPLETE BLD COUNT 2020-08-07 09:03:00 [facility] W/AUTO DIFF BASIC METABOLIC PANEL 2020-08-07 09:03:00 [facility] ESTIM[facility]FR 2020-08-07 09:03:00 [facility] ospital LACTIC ACID LEVEL, SEPSIS 2020-08-07 03:00:[facility] NOW AND REPEAT 2X EVERY 3 HOURS POC GLUCOSE 2020-08-07 01:36:00 Bhaskar Chaney [facility] Shadaab LACTIC ACID LEVEL, SEPSIS 2020-08-07 00:03:00 [facility] - NOW AND REPEAT 2X EVERY 3 HOURS POC GLUCOSE 2020-08-06 23:14:00 Bhaskar Chaney [facility] Shada COVID-19 QUALITATIVE 2020-08-06 22:43:00 [facility] RT-PCR ECG ED PRELIMINARY 2020-08-06 18:13:40 [facility] INTERPRETATION ECG 12-LEAD 2020-08-06 18:01:17 [facility] ospital XR CHEST 1 VW PORTABLE 2020-08-06 18:00:[facility] BLO[facility], AEROBIC & 2020-08-06 17:41:00 [facility] ANAEROBIC BLOOD CULTURE, AEROBIC & 2020-08-06 17:20:00 [facility] ANAEROBIC LACTIC ACID LEVEL, SEPSIS 2020-08-06 17:17:00 [facility] - NOW AND REPEAT 2X EVERY 3 HOURS COMPREHENSIVE METABOLIC 2020-08-06 17:17:00 [facility] PANEL HC COMPLETE BLD COUNT 2020-08-06 17:17:00 Nolan, Norman Madyson [facility] W/AUTO DIFF ESTIMATED GFR 2020-08-06 17:17:00 Nolan, [facility] osp[facility] CT HEAD WO CONTRAST 2020-08-06 16:38:40 Nolan, [facility] POC GLUCOSE 2020-07-19 16:46:00 Moosavi, Bhaskar [facility] Ho spital Shadaab POC GLUCOSE 2020-07-19 12:27:00 Moosavi, Bhaskar [facility] Ho spital [place] BASIC METABOLIC PANEL 2020-07-19 11:10:00 Milton, Bhaskar [facility] ESTIMATED GFR 2020-07-19 11:10:00 Milton, [facility] POC GLUCOSE 2020-07-19 01:53:00 Moosavi, Bhaskar [facility] Ho spital Shadaab POC GLUCOSE 2020-07-18 22:56:00 Moosavi, Bhaskar [facility] Ho spital [place]adaab POC GLUCOSE 2020-07-18 22:07:00 Moosavi, Bhaskar [facility] Ho spital Shadaab POC GLUCOSE 2020-07-18 17:40:00 Moosavi, Bhaskar [facility] Ho spital [place]ab XR CHEST 1 VW PORTABLE 2020-07-18 16:37:09 Milton, Bhaskar Ather [facility] POC GLUCOSE 2020-07-18 12:54:00 Moosavi, Bhaskar [facility] Ho spital Shadaab TROPONIN 2020-07-18 04:05:00 AngelaStacy fields Lemus POC GLUCOSE 2020-07-18 01:55:00 Moosavi, Bhaskar [facility] Ho spital [place]ab TROPONIN 2020-07-17 23:08:00 Stacy Miller Lemus POC GLUCOSE 2020-07-17 21:33:00 Moosavi, Bhaskar [facility] Ho spital [place]ab TROPONIN 2020-07-17 20:35:00 Stacy Miller ECG 12-LEAD 2020-07-17 18:59:06 Moosavi, Bhaskra [facility] Ho spital [place]ab POC GLUCOSE 2020-07-17 16:49:00 Moosavi, Bhaskar [facility] Ho spital [place] POC GLUCOSE 2020-07-17 12:39:00 Moosavi, Bhaskar [facility] Ho spital [place] BASIC METABOLIC PANEL 2020-07-17 09:54:00 [facility] HC COMPLETE BLD COUNT 2020-07-17 09:54:00 [facility] W/AUTO DIFF ESTIMATED GFR 2020-07-17 09:54:00 [facility] POC GLUCOSE 2020-07-17 01:12:00 Moosavi, Bhaskar [facility] Ho spital Shadaab POC GLUCOSE 2020-07-16 22:31:00 Moosavi, Bhaskar [facility] Ho spital [place] POC GLUCOSE 2020-07-16 18:43:00 Moosavi, Bhaskar [facility] Ho spital [place]adaab PA AN ELECTIVE 2020-07-16 17:47:21 Micheline Pruett [facility] ENDOTRACHEAL AIRWAY INSERTION, CATHETER, 2020-07-16 17:15:00 [facility] DIALYSIS, PERITONEAL, LAPAROSCOPIC LYSIS, ADHESIONS, 2020-07-16 17:15:00 [facility] LAPAROSCOPIC POC PANEL 2020-07-16 17:01:00 Moosavi, Bhaskar [facility] Ho spital [place]ab POC GLUCOSE 2020-07-16 13:11:00 Moosavi, Bhaskar [facility] Ho spital [place] POC GLUCOSE 2020-07-16 01:59:00 Moosavi, Bhaskar [facility] Ho spital [place] POC GLUCOSE 2020-07-15 22:42:00 Moosavi, Bhaskar [facility] Ho spital [place] POC GLUCOSE 2020-07-15 16:29:00 Moosavi, Bhaskar [facility] Ho spital [place] POC GLUCOSE 2020-07-15 13:15:00 Moosavi, Bhaskar [facility] Ho spital [place] BASIC METABOLIC PANEL 2020-07-15 08:40:00 [facility] ESTIMATED GFR 2020-07-15 08:40:00 Milton, [facility] POC GLUCOSE 2020-07-15 01:23:00 Moosavi, Bhaskar Torres Ho spital Shadaab POC GLUCOSE 2020-07-14 20:46:00 Moosavi, Bhaskar [facility] Ho spital [place] POC GLUCOSE 2020-07-14 18:29:00 [facility]osavi[facility] IR TUNNELED DIALYSIS 2020-07-14 16:40:34 Milton [facility] CATHETER PLACEMENT US GUIDED VASCULAR ACCESS 2020-07-14 16:31:38 Milton [facility] TTE COMPLETE, WO CONTRAST, 2020-07-14 15:20:13 [facility] ([id number] POC GLUCOSE 2020-07-14 13:18:00 Moosaclara, [facility] PROTHROMBIN TIME WITH INR 2020-07-14 13:04:00 Milton [facility] ECG 12-LEAD 2020-07-14 10:47:20 [facility]askar [facility] 12-LEAD 2020-07-14 10:46:38 [facility] ospital HEMOGLOBIN & HEMATOCRIT 2020-07-14 10:25:00 [facility] BASIC METABOLIC PANEL 2020-07-14 10:25:00 Milton [facility] ESTIMATED GFR 2020-07-14 10:25:00 Milton [facility] POC GLUCOSE 2020-07-14 02:05:00 [facility] POC GLUCOSE 2020-07-13 21:33:00 Moosavi, [facility] HEPATITIS C ANTIBODY 2020-07-13 20:56:00 Milton [facility] HC COMPLETE BLD COUNT 2020-07-13 17:53:00 Milton [facility] W/AUTO DIFF HEPATITIS B SURFACE 2020-07-13 17:53:00 Milton [facility] ANTIGEN HEPATITIS B SURFACE 2020-07-13 17:53:00 Milton, [facility] ANTIBODY HEPATITIS B CORE ANTIBODY 2020-07-13 17:53:00 Milton, [facility] TOTAL SMEAR REVIEW 2020-07-13 17:53:00 Mliton, [facility] POC GLUCOSE 2020-07-13 16:34:00 Moosavi, [facility] Ho spital Shadaab POC GLUCOSE 2020-07-13 13:42:00 Moosavi, [facility] Ho spital Shadaab BASIC METABOLIC PANEL 2020-07-13 08:50:00 Milton [facility] HC COMPLETE BLD COUNT 2020-07-13 08:50:00 Milton [facility] W/AUTO DIFF ESTIMATED GFR 2020-07-13 08:50:00 Milton, [facility] POC GLUCOSE 2020-07-13 02:26:00 Moosavi, [facility] Ho spital Shadaab POC GLUCOSE 2020-07-13 01:09:00 Moosavi, [facility] Ho spital Shadaab POC GLUCOSE 2020-07-12 22:11:00 Moosavi, [facility] Ho spital Shadaab PARATHYROID HORMONE 2020-07-12 17:31:00 Milton, [facility] URIC ACID LEVEL 2020-07-12 17:31:00 Milton [facility] POC GLUCOSE 2020-07-12 16:47:00 Moosavi, [facility] Ho spital Shadaab POC GLUCOSE 2020-07-12 12:35:00 Moosavi, [facility] Ho spital Shadaab HC COMPLETE BLD COUNT 2020-07-12 09:33:00 [facility]FF Sivan COMPREHENSIVE METABOLIC 2020-07-12 09:33:00 Manuela Braga [facility] PANEL Sivan THYROID STIMULATING 2020-07-12 09:33:00 Jeff Sweet [facility] HORMONE ESTIMATED GFR 2020-07-12 09:33:00 Manuela Braga ospital Sivan TROPONIN 2020-07-12 02:45:00 Lakhwinder Vásqueztal US RENAL 2020-07-12 01:56:43 [facility] POC GLUCOSE 2020-07-12 01:15:00 Motonja [facility] Shadaab COVID-19 QUALITATIVE 2020-07-12 00:24:00 Manuela Braga [facility] RT-PCR Sivan HC COMPLETE BLD COUNT 2020-07-12 00:24:00 [facility] W/AUTO DIFF FERRITIN LEVEL 2020-07-12 00:24:00 [facility] URIC ACID LEVEL 2020-07-12 00:24:00 [facility] TOTAL IRON BINDING 2020-07-12 00:24:00 [facility] CAPACITY PARATHYROID HORMONE 2020-07-12 00:24:00 [facility] PROTEIN, URINE, RANDOM 2020-07-12 00:24:00 [facility] CREATININE LEVEL, URINE, 2020-07-12 00:24:00 [facility] RANDOM VITAMIN D 25 HYDROXY LEVEL 2020-07-12 00:24:00 [facility] URINE PROTEIN 2020-07-12 00:24:00 [facility] ELECTROPHORESIS, RANDOM SERUM ELECTROPHORESIS 2020-07-12 00:24:00 [facility], [facility] KAPPA LAMBDA FREE LIGHT 2020-07-12 00:24:00 [facility] CHAIN WITH RATIO URINE PROTEIN/CREATININE 2020-07-12 00:23:00 [facility] RATIO, RANDOM TROPONIN 2020-07-11 23:42:00 Lakhwinder Vásquez XR CHEST 1 VW PORTABLE 2020-07-11 22:36:14 Maria Luz Manuela [facility] Sivan ECG 12-LEAD 2020-07-11 22:15:53 Moosa, Bhaskar Elizondoist [facility] spital Shadaab ECG 12-LEAD 2020-07-11 22:14:36 Motonja, Bhaskar Sabianist [facility] Shadaab ECG 12-LEAD 2020-07-11 22:13:55 Moosavi, Bhaskar Sabianist [facility] spital Shadaab ECG ED PRELIMINARY 2020-07-11 21:39:29 [facility] Sivan HC COMPLETE BLD COUNT 2020-07-11 21:36:00 [place] [facility] W/AUTO DIFF Sivan COMPREHENSIVE METABOLIC 2020-07-11 21:36:00 [facility] PANEL Sivan B NATRIURETIC PEPTIDE 2020-07-11 21:36:00 [facility] Sivan ESTIMATED GFR 2020-07-11 21:36:00 [facility] TROPONIN 2020-07-11 20:45:00 Lakhwinder Vásquez spital ECG 12-LEAD 2020-07-11 20:34:56 Lakhwinder Vásquez spital Plan of Care Planned Activity Planned Date Details Comments Source Future Scheduled 2021-03-31 65+ P[facility]UMOCOCCAL [facility] Test 07:32:58 VACCINE (1 of 4 - PCV13) [code = 65+ PNEUMOCOCCAL VACCINE (1 of 4 - PCV13)] Future Scheduled 2021-03-31 SHINGLES VACCINES (#1) [facility] Test 07:32:58 [code = SHINGLES VACCINES (#1)] Future Scheduled 2021-03-31 INFLUENZA VACCINE Method [facility] Test 07:32:58 [code = INFLUENZA VACCINE] Future Scheduled 2021-03-31 COVID-19 VACCINE (3 - Me [facility] Test 07:32:58 Booster for Pfizer series) [code = COVID-19 VACCINE (3 - Booster for Pfizer series)] Encounters Start End Encounter Admission Attending Care Care Encounter Source Date/Time Date/Time Type Type Clinicians Facility Department ID 2021-04-06 2021-04-16 Inpatient [place] [id number] [address] [place] [address] 00:00:00 00:00:00 DANYELL [address] 2021-03-30 2021-03-30 Orders Razo, 1.2.840.1 [id number] Methodi 00:00:00 00:00:00 Only Neelima Roman 67505.1.[address] 3.430.2.7 Hospit a .3.717964 l .8 2021-03-27 2021-03-27 Orders Razo, 1.2.840.1 [id number] 2700 Methodi 00:00:00 00:00:00 Only Neelima Roman 09764.1.[address] 3.430.2.7 Hospit a .3.603728 l .8 2021-03-25 2021-03-25 Pre-Admiss Jean-Pierre, 1.2.840.1 [id number] [id number] Methodi 09:25:00 10:25:00 ion Dwain Gregoriowin 18726.1.[address] Testing 3.430.2.7 Hospit a .3.292314 l .8 2021-03-25 2021-03-25 [facility] 1.2.840.1 [id number] [place] 00:00:00 00:00:00 Jonathan , BRITTANEY 82956.1.[address] .3.238648 .8 2021-03-25 2021-03-25 Orders Freed, 1.2.840.1 [id number] 4263 Methodi 00:00:00 00:00:00 Only Norma 60309.1.[address] 3.430.2.7 Hospit a .3.277858 l .8 2021-03-24 2021-03-24 Orders Freed, 1.2.840.1 [id number] 7762 Methodi 00:00:00 00:00:00 Only Norma 17733.1.[address] 3.430.2.7 Hospit a .3.465363 l .8 2021-03-24 2021-03-24 Orders Jl, 1.2.840.1 [id number] 7022 Methodi 00:00:00 00:00:00 Only Carmelina Finnegan 96615.1.1 [address] t 3.430.2.7 Hospit a .3.493338 l .8 2021-03-24 2021-03-24 Travel 1.2.840.1 1.2.441.446 2656 [id number] Methodi 00:00:00 00:00:[address] 3.430.2.7 0.2.7.3.698 Ho spita .3.539233 084.8 l .8 2021-03-03 2021-03-03 Transcribe Jean-Pierre, 1.2.840.1 [id number] 781 [id number] Methodi 00:00:00 00:00:00 Orders Dwain Montoya 61340.1.[address] 3.430.2.7 Hospit a .3.124838 l .8 2021-02-26 2021-02-26 Prep for Mccarthy, 1.2.840.1 [id number] Methodi 00:00:00 00:00:00 Surgery Shelia 19787.1.[address] 3.430.2.7 Hospit a .3.230944 l .8 2021-02-19 2021-02-25 Pre-Admiss Jean-Pierre, 1.2.840.1 [id number] 755 [id number] Methodi 11:13:18 10:03:18 ion Dwain Montoya 34562.1.[address] Testing 3.430.2.7 Hospit a .3.868527 l .8 2021-02-23 2021-02-23 Transcribe Jean-Pierre, 1.2.840.1 [id number] [id number] Methodi 00:00:00 00:00:00 Orders Dwain Montoya 75213.1.[address] 3.430.2.7 Hospit a .3.097289 l .8 2021-02-19 2021-02-19 Hospital JEAN-PIERRE, 1.2.840.1 [id number] 02119 [place] 00:00:00 00:00:00 Encounter DWAIN 31315.1.1 [address] .3.559486 .8 2021-02-192021-02-19 [facility] JEAN-PIERRE, 1.2.840.1 [id number] 71866 [place] 00:00:00 00:00:00 Encounter DWAIN 91807.1.1 [address] .3.985104 .8 2021-02-19 2021-02-19 [place], 1.2.840.1 [id number] 0916 Methodi 00:00:00 00:00:00 Only Ana Maria Jacobs 34793.1.[address] 3.430.2.7 Hospit a .3.534101 l .8 2021-02-19 2021-02-19 Travel 1.2.840.1 1.2.842.523 7818 020181 Methodi 00:00:00 00:00:[address] 3.430.2.7 0.2.7.3.698 Ho spita .3.162214 084.8 l .8 2021-02-17 2021-02-17 Travel 1.2.840.1 1.2.511.623 9090 306691 Methodi 00:00:00 00:00:[address] 3.430.2.7 0.2.7.3.698 Ho spita .3.700323 084.8 l .8 2021-02-16 2021-02-16 [facility] Jean-Pierre, 1.2.840.1 [id number] 2244 Methodi 00:00:00 00:00:00 Only Dwain Montoya 30725.1.[address] 3.430.2.7 Hospit a .3.474336 l .8 2021-02-03 2021-02-03 Prep for Fabio, 1.2.840.1 [id number] 63118 Methodi 00:00:00 00:00:00 Surgery Shelia 23398.1.[address] 3.430.2.7 Hospit a .3.043097 l .8 2021-02-02 2021-02-02 Travel 1.2.840.1 1.2.596.560 2830 696153 Methodi 00:00:00 00:00:[address] 3.430.2.7 0.2.7.3.698 Ho spita .3.634432 084.8 l .8 2021-01-08 2021-01-08 Office Jean-Pierre, 1.2.840.1 [id number] 8995 [facility]i 14:15:05 16:02:28 Visit Dwain Montoya 76398.1.[address] 3.430.2.7 Hospit a .3.940538 l .8 2021-01-08 2021-01-08 Ancillary Jean-Pierre, 1.2.840.1 [id number] [id number] Methodi 14:39:12 14:54:12 Procedure Dwain Montoya 83043.1.[address] 3.430.2.7 Hospit a .3.228447 l .8 2021-01-08 2021-01-08 Nurse Only Jaqui 1.2.840.1 [id number] Methodi 00:00:00 00:00:[address] 3.430.2.7 Hospit a .3.957757 l .8 2021-01-08 2021-01-08 Orders Jean-Pierre, 1.2.840.1 [id number] 5145 Methodi 00:00:00 00:00:00 Only Dwain Gregoriowin 48139.1.[address] 3.430.2.7 Hospit a .3.297518 l .8 2020-12-18 2020-12-18 [facility] 7502 Memoria 06:29:00 17:01:00 LIZZY Aguilar [facility] 2020-08-06 2020-08-07 Emergency NolanNorman 1.2.840.1 70496 1004 [id number] Methodi 11:55:00 16:30:00 [address]askar [address] 3.430.2.7 Hospit a .3.893404 l .8 2020-08-06 2020-08-06 Travel 1.2.840.1 1.2.522.759 9547 [id number] Methodi 00:00:00 00:00:[address] 3.430.2.7 0.2.7.3.698 Ho spita .3.620143 084.8 l .8 2020-07-25 2020-07-25 Office Chantal 1.2.840.1 [id number] 5772 Methodi 12:57:17 13:55:12 Visit Demarcus Alcazar 12577.1.[address] 3.430.2.7 Hospit a .3.140879 l .8 2020-07-25 2020-07-25 Travel 1.2.840.1 1.2.593.205 1051 264355 Methodi 00:00:00 00:00:[address] 3.430.2.7 0.2.7.3.698 Ho spita .3.220808 084.8 l .8 2020-07-11 2020-07-19 [facility] [id number] Methodi 16:15:00 14:37:00 Encounter Bhaskar Chaney 17351.1.[address] 3.430.2.7 Hospit a .3.129079 l .8 2020-07-16 2020-07-16 Surgery Chantal 1.2.840.1 [id number] 1018 Methodi 12:30:00 14:00:00 Demarcus Alcazar [address] 3.430.2.7 Hospit a .3.485010 l .8 2020-07-16 2020-07-16 Anesthesia Jayant Arambula 1.2.840.1 714110 012 [id number] Methodi 12:19:00 13:20:00 Event Irma Turpin 39304.1.[address] 3.430.2.7 Hospit a .3.853048 l .8 2020-07-11 2020-07-11 Travel 1.2.840.1 1.2.873.743 6354 [id number] Methodi 00:00:00 00:00:[address] 3.430.2.7 0.2.7.3.698 Ho spita .3.668773 084.8 l .8 2019-11-20 2019-11-21 Inpatient E ALPESH, [facility] MED 7501 Memoria 10:38:00 15:47:00 MARTITA l Preet Cortez Memoria l 2019-02-05 2019-02-05 Inpatient U [facility] MED 7500 Memoria 10:30:00 07:48:00 l [facility]reet [facility] 2015-01-29 2015-01-29 Unknown nullFlavo Milan [id number] -8 [facility] 20:15:00 20:15:00 r Primary 6h0-6788-x l Care be6-095b1b [facility] 0b03a3 2014-12-19 2014-12-19 Unknown nullFlavo Milan [id number] -f [facility] 19:41:00 19:41:00 r Primary 639-4a6a-8 l Care 1c7-q570ik [facility] a3d76e 2014-11-21 2014-11-21 Unknown nullFlavo Milan [id number] -7 Memoria 21:30:00 21:30:00 r Primary 04a-488c-9 l Care 5bf-8b4fbe [facility] 256fc5 2014-06-10 2014-06-10 Unknown nullFlavo Milan zb56cgwt -1 Memoria 16:00:00 16:00:00 r Primary 91d-488f-8 l Care 5k6-d53890 [facility] 868a81 2014-06-10 2014-06-10 Unknown nullFlavo Milan 8x3fxaad -7 Memoria 15:00:00 15:00:00 r Primary 85e-47a6-a l Care 19a-5e84a0 [facility] [id number] 2014-06-10 2014-06-10 Unknown nullFlavo Milan 811ll121 -a [facility]oria 15:00:00 15:00:00 r Primary 355-4d22-a l Care 86a-3266dd [facility] 4803dc 2014-06-10 2014-06-10 Unknown nullFlavo Milan [id number] -4 Memoria 15:00:00 15:00:00 r Primary 683-4b16-9 l Care 9c8-q0m891 [facility] [id number] 2014-05-17 2014-05-17 Unknown nullFlavo Milan 69f6ml19 -c Memoria 16:15:00 16:15:00 r Primary 0e5-5q45-5 l Care fdf-e1084s [facility] [id number] 2014-05-17 2014-05-17 Unknown nullFlavo Milan 793s7h5n -9 Memoria 15:15:00 15:15:00 r Primary a79-573z-a l Care z11-1v8jm4 [facility] 68c12d 2014-05-17 2014-05-17 Unknown nullFlavo Milan [id number] -5 [facility] 15:15:00 15:15:00 r Primary ce5-474d-a l Care 11e-b9f93d [facility] 920321 7559-03-20 2014-05-17 Unknown nullFlavo Milan [id number] -2 Memoria 15:15:00 15:15:00 r Primary cc8-4483-b l Care y86-5o1058 [facility] 509a47 2014-04-15 2014-04-15 Unknown nullFlavo Milan [id number] -d [facility] 22:42:00 22:42:00 r Primary x7p-2d9z-b l Care 359-704a95 [facility] si313z 2014-04-15 2014-04-15 Unknown nullFlavo Milan [id number] -7 Memoria 21:42:00 21:42:00 r Primary 827-48a3-b l Care 523-61l464 [facility] [id number] 2014-04-15 2014-04-15 Unknown nullFlavo Milan 6252eaaf -4 Memoria 21:42:00 21:42:00 r Primary 0ac-4496-9 l Care 699-0e2aa9 [facility] 5dd5b2 2014-04-15 2014-04-15 Unknown nullFlavo Milan [id number] -9 Memoria 21:42:00 21:42:00 r Primary 60e-47e5-8 l Care 43a-85c0ff [facility] 7f7bbc 2014-03-25 2014-03-25 Unknown nullFlavo Milan [id number] -e Memoria 16:45:00 16:45:00 r Primary 0c1-2c26-6 l Care 94e-7856b2 [facility] [id number] 2014-03-25 2014-03-25 Unknown nullFlavo Milan [id number] -b [facility]oria 15:45:00 15:45:00 r Primary 207-49fc-b l Care 3e0-y25s56 [facility] 227fe3 2014-03-25 2014-03-25 Unknown nullFlavo Milan [id number] -9 Memoria 15:45:00 15:45:00 r Primary 765-443f-a l Care [id number]-b28e1a [facility] 201e32 2014-03-25 2014-03-25 Unknown nullFlavo Milan 8b79t1ki -6 Memoria 15:45:00 15:45:00 r Primary a58-71e0-s l Care 7fb-909e1d [facility] 9e21ee Results Test Description Test Time Test Comments Results Result Comments Source SARS-CoV-2 (COVID-19) RNA [Presence] in Respiratory sp ecimen by 2021-04-16 00:53:01 CHANTEL with probe detection Test Item Value Reference Range Interpretation Comme nts SARS-CoV-2 (COVID-19) RNA [Presence] in Respiratory Detected No t-Detected specimen by CHANTEL with probe detection (test code = 55897-8) 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 (test code = 82715-5) Whether the patient has symptoms related to condition of interest (test code = 73056-8) Patient was hospitalized because of this condition (test code = 27053-0) Whether the patient was admitted to intensive care unit (ICU) for condition of interest (test code = 52231-4) Whether patient resides in a congregate care setting (test code = 34777-3) Type and [id number] 17:19:00 Test Item Value Reference Range Interpretation Comments ABO grouping (test code = 883-9) A Rh type (test code = 71622-3) NEG Antibody screen (gel) (test code = NEG 890-4) [facility] Pre/Post [id number] 00:53:16 Test Item Value Reference Range Interpretation Comments Ventricular rate (test code = 253) Atrial rate (test code = 255) PA interval (test code = 266) QRSD interval (test code = 260) QT interval (test code = 264) QTC interval (test code = 265) P axis 1 (test code = 267) QRS axis 1 (test code = 268) T wave axis (test code = 270) EKG impression (test Sinus rhythm with 1st code = 273) degree AV block with occasional ventricular-paced complexes-ST & Marked T wave abnormality, consider inferior ischemia-ST & Marked T wave abnormality, consider anterolateral ischemia-Prolonged QT-Abnormal ECG-In automated comparison with ECG of 06-AUG-2020 13:01,-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- [facility] 12 [id number] 22:40:10 Test Item Value Reference Range Interpretation Comments Ventricular rate (test code = 253) Atrial rate (test code = 255) QRSD interval (test code = 260) QT interval (test code = 264) QTC interval (test code = 265) QRS axis 1 (test code = 268) T wave axis (test code = 270) EKG impression (test Sinus rhythm-ST & code = 273) Marked T wave abnormality, consider inferior ischemia-ST & Marked T wave abnormality, consider anterolateral ischemia-Prolonged QT-Abnormal ECG-In automated comparison with ECG of 06-AUG-2020 13:00,-Current undetermined rhythm precludes rhythm comparison, needs review- [facility] [id number] 20:43:36 Test Item Value Reference Range Interpretation Comments POC glucose (test code 208 mg/dL 65-99 H Opera tor Name: Melody = 84549-4) Shaun ID: [id number] able: HMW Notified compensation intern Interpretation Abnormal (test code = 07283-8) [facility] ED Preliminary Interpretation - Not an [id number] 18:13:40 Test Item Value Reference Range Interpretation Comments BETH (test code = BETH) Norman Nolan MD 08/06/2020 10:25 [facility] Preliminary Interpretation - Not an OrderPerformed by: Norman Nolan MDAuthorized by: Norman Nolan MD ECG reviewed by ED Physician in the absence of a veterinary medical officer: yes Interpretation: Interpretation: abnormal Rate: ECG rate: 65 BPM ECG rate assessment: normal Rhythm: Rhythm: other rhythm Ectopy: Ectopy: none QRS: QRS axis: Normal QRS intervals: Normal (92 ms)Conduction: Conduction: normal ST segments: ST segments: AbnormalT waves: T waves: non-specific Other findings: Other findings: prolonged qTc interval Comments: QT/QTc: 534/555 msPR Interval: * ms Lab Interpretation Abnormal (test code = 86276-2) [facility], (w Contrast, Strain and 3D if needed)2020-07-15 01:37:44 Test Item Value Reference Range Interpretation Comments Ao Root Diameter 3.24 cm (test code = 5725595988) AoV Area, Vmax (test 1.67 cm2 code = 3312593068) AoV Area, VTI (test 1.76 cm2 code = 0179196996) AoV Mean PG (test mmHg code = 8668587621) AoV Peak PG (test mmHg code = 1318173103) AoV Vmax (test code 1.72 m/s = 4377548540) AoV VTI (test code = 0.35 m 7705968969) IVS,d (test code = 1.06 cm 3598674463) IVS/LVPW,2D (test code = 4647895568) Left Atrium 4.44 cm Dimension Anterior (test code = 1035616758) LA Area d A4C (test 20.62 cm2 code = 5149571614) LV,d (test code = 5.80 cm 1428565882) LV EF,2D (test code 38.89 % = 8738561797) LV,s (test code = 4.92 cm 0066871064) LVOT area (test code 3.49 cm2 = 6599076115) LVOT Diam,S (test 2.11 cm code = 4625588631) LVOT Vmax (test code 0.82 m/s = 4660673037) LVOT VTI (test code 0.18 m = 4581739844) LVPWD,d (test code = 1.02 cm 4898768912) PV Mean Grad (test mmHg code = 6841460502) PV Pk Grad (test mmHg code = 0088316887) PV VMAX (test code = 1.32 m/s 8905003805) PV VTI (test code = 0.26 m 0722538188) RVOT Vmax (test code 0.59 m/s = 6595935959) RVSP (TR) (test code mmHg = 9820117618) TR Vpeak (test code 2.95 mm/s = 2822948890) MV E A ratio (test code = 6287888460) TR pk grad (test mmHg code = 2561309936) PV Vmn (test code = 5343078370) MR Vmax (test code = 5.16 m/s 6765749149) E wave decelartion msec time (test code = 9379591543) MV Peak A Nick (test 1.10 m/s code = 1252151265) MV valve area p 1/2 5.06 cm2 method (test code = 5944672812) MV Peak E Nick (test 1.00 m/s code = 2003197848) MV stenosis pressure 43.50 ms 1/2 time (test code = 4086051727) LVOT stroke volume 0.63 cm3 (test code = 2045584531) AV LVOT peak mmHg gradient (test code = 0412656270) RVSP (test code = mmHg 6702317003) Ao Root Diameter 3.24 cm (test code = 5487752055) MV mean gradient mmHg (test code = 2299401724) LV SYS VOL (test 114.00 ml code = 7557933832) LV CURRY VOL (test 166.56 ml code = 1348899994) LV SV Teich 2D (test 52.56 ml code = 3040645674) LV Vol s Teich PSAX 114.00 ml (test code = 6457856614) LVOT CO (test code = 4.52 l/min 4006447219) LVOT HR for LVOT CO bpm (test code = 6910739312) MR peak grad (test mmHg code = 7984511848) MV Vmax (test code = 1.13 m 3879549381) MV VTI Tips (test 0.18 m code = 9979716186) RVOT pk grad (test mmHg code = 9854926452) AoV Vmn (test code = 3610696225) IVS s 2D (test code = 3171436589) LV FS Teich 2D (test code = 6872430293) MV AE ratio (test code = 6895137419) LV FS Cube 2D (test code = 3379320891) LVOT Vmn (test code = 4727458125) Aov area Vmn (test 1.83 cm2 code = 4967800518) LA Vol d MOD A4C 55.09 ml (test code = 5296133073) LVOT mean grad (test mmHg code = 9230427328) MAX Pred HR (test code = 7139866682) RVOT mean grad (test mmHg code = 5980294162) RVOT Vmn (test code 0.39 m/s = 3834049024) RVOT VTI (test code 0.10 m = 9023304903) 85 of MPHR (test code = 9629250298) Calc MPHR (test code bpm = 2973880969) IVS pct thck PLAX 24.74 % (test code = 9435405936) LV SV Cube 2D (test 75.87 ml code = 9311407495) LV vol d cube 2D 195.12 ml (test code = 9220272776) LV vol s cube 2D 119.25 ml (test code = 5503345121) LVPW pct thck PLAX 35.01 % (test code = 5946501422) LVPW s PLAX (test 1.37 cm code = 5851204396) MV Decel slope (test 6.69 m/s2 code = 5969484795) Pred Exer Dur R1 (test code = 6129312424) Pred METS R1 (test code = 8617275882) Velocity Ratio 0.48 m/s (V1/V2) (test code = 4689) EF (test code = 31.56 % 2177186470) E/A ratio (test code = 6058807755) LVOT VTI (CM) (test 18.00 cm code = 7179634801) BETH (test code = Left ventricular BETH) systolic function is moderately impaired. The left ventricular chamber size is mildly enlarged. Left ventricular systolic function is moderately impaired. Left Ventricular ejection fraction is 30 - 35%. Normal right ventricular size and global function. A pacing wire is visualized in the right atrium and right ventricle. LA size is mildly dilated. Spectral Doppler shows impaired relaxation pattern of LV diastolic filling Mild mitral valve regurgitation Left VentricleThe left ventricular chamber size is mildly enlarged. Left ventricular systolic function is moderately impaired. Left Ventricular ejection fraction is 30 - 35%.Right VentricleNormal right ventricular size and global function. A pacing wire is visualized in the right atrium and right ventricle.Left AtriumLA size is mildly dilated.Right AtriumThe right atrium is normal.Mitral ValveThe mitral valve appears thickened. Mild mitral valve regurgitation. Mild mitral annular calcification.Tricuspid ValveThe tricuspid valve appears normal. Mild tricuspid valve regurgitation. No evidence of tricuspid valve stenosis. RVSP is 40 mmHg.Aortic ValveThe aortic valve appears trileaflet and to open well. No significant aortic regurgitation.Pulmonic ValveThe pulmonic valve was not well visualized. No significant pulmonary valve regurgitation. No evidence of pulmonary valve stenosis.PericardiumNo pericardial effusion seen.DiastologySpectral Doppler shows impaired relaxation pattern of LV diastolic filling.AortaAortic root is normal.Study Quality All standard echocardiographic views were obtained. Study quality is adequate. [facility] [id number] 18:27:55 Test Item Value Reference Range Interpretation Comments Prot/creat ratio, 0.16 mg/L Corrected result; urine (test code = previousl y reported as 2890-2) @RANDY on 2020 at 20:30 by I/AUT [facility]
[2021-04-16] MEDS ORDERED: ACETAMINOPHEN 325 MG TABLET PO PRN (18:31)
[2021-04-16] MEDS ORDERED: GLUCAGON 1 MG/VIAL IM PRN (18:35)
[2021-04-16] MEDS ORDERED: D50W 25 GM/50 ML SYRINGE IV PRN (18:35)
[2021-04-16] MEDS ORDERED: NITROGLYCERIN 0.4 MG/TAB SL PRN (18:48)
[2021-04-16] MEDS: ATORVASTATIN 40 MG TAB PO SCH (19:51)
[2021-04-16] MEDS: MIDODRINE HCL 5 MG TABLET PO SCH (19:51)
[2021-04-16] MEDS: POLYETHYL GLY 3350 17 GM/DOSE PO SCH ×2 (19:51→20:00)
[2021-04-16] MEDS: IPRATROPIUM BROM 0.5MG/2.5ML NEB SCH (20:00)
[2021-04-16] MEDS: HYDROCODONE/APAP 5/325 MG TAB PO PRN (23:02)
[2021-04-17] MEDS: HEPARIN 5000 UNIT/ML 1 ML VIAL SQ SCH ×3 (01:00→15:51)
[2021-04-17] MEDS: IPRATROPIUM BROM 0.5MG/2.5ML NEB SCH ×4 (02:04→19:11)
[2021-04-17] MEDS: carvediloL 3.125 MG TAB PO SCH ×2 (05:02→17:13)
[2021-04-17] MEDS: PANTOPRAZOLE 40MG TABLET PO SCH (05:03)
[2021-04-17 05:06] LABS: Absolute Lymphocytes (CBC) 0.5 K/uL (0.7-4.9); Hematocrit 25.3 % (36.0-45.0); MPV 7.4 fL (7.6-11.3); RBC Red Blood Cell Count 2.77 M/uL (3.86-4.86)
[2021-04-17 05:39] LABS: Albumin 1.9 g/dL (3.4-5.0); Magnesium 2.7 mg/dL (1.8-2.4); Phosphorus 4.2 mg/dL (2.5-4.9); Potassium 3.4 mmol/L (3.5-5.1); Prealbumin 14.6 mg/dL (20-40)
[2021-04-17 05:51] LABS: Platelet Estimate ADEQ
[2021-04-17 05:52] LABS: Anisocytosis 1+; Blood Morphology Comment NOTED (NOT SEEN); Polychromasia SLIGHT; Toxic Granulation 2+
[2021-04-17] MEDS ORDERED: INFLUENZA VACCINE (for 6+ mo) 0.5 ML DOSE IMVAC ONE (08:00)
[2021-04-17] MEDS: INSULIN GLARGINE 100 UNIT/ML SQ SCH (08:42)
[2021-04-17] MEDS: INSULIN LISPRO 100 UNIT/1 ML SQ SCH ×3 (08:43→17:00)
[2021-04-17] MEDS: POLYETHYL GLY 3350 17 GM/DOSE PO SCH ×2 (08:43→20:09)
[2021-04-17] MEDS: CALCITROL 0.25 MCG CAP PO SCH (08:44)
[2021-04-17] MEDS: CLOPIDOGREL 75 MG TABLET PO SCH (08:44)
[2021-04-17] MEDS: ASPIRIN 81 MG CHEWABLE TABLET PO SCH (08:44)
[2021-04-17] MEDS: ZINC SULFATE 220 MG CAP PO SCH (08:44)
[2021-04-17] MEDS: FERROUS SULFATE 325 MG TAB PO SCH (08:44)
[2021-04-17] MEDS: VITAMIN B COMPLEX 1 CAP PO SCH (08:44)
[2021-04-17] MEDS: ASCORBIC ACID 500 MG TABLET PO SCH (08:44)
[2021-04-17] MEDS: CALCIUM ACETATE 667 MG TAB PO SCH ×3 (08:44→17:13)
[2021-04-17] MEDS: MIDODRINE HCL 5 MG TABLET PO SCH ×2 (09:15→20:09)
[2021-04-17 09:16] LABS: Urine Appearance CLOUDY (Clear); Urine Bilirubin NEGATIVE (Negative); Urine Blood TRACE (Negative); Urine Color YELLOW (Yellow); Urine Glucose NEGATIVE (Negative); Urine Protein 2+ (Negative); Urine Specific Gravity 1.015 (1.005-1.030); Urine Urobilinogen 0.2 mg/dL (0.2-1.0); Urine pH 5.5 (5.0-7.0)
[2021-04-17 09:55] LABS: Urine Amorphous Sediment 1+ /HPF (NONE SEEN); Urine Bacteria 20-50 /HPF (<20); Urine RBC 20-50 /HPF (NONE SEEN)
--- NOTE | 2021-04-17 09:58 | P.RH.PN ---
Estimated Length of Stay: 11 Expected Discharge Date: 04/27/21 Discharge Disposition Plan: Home Family Support: Yes [facility] Goal: Mobility, Transfers, Self Care Vital Signs: Last Vital Signs Temp 97.0 F 04/17/21 07:28 Pulse 81 04/17/21 07:28 Resp 18 04/17/21 07:28 BP 132/54 L 04/17/21 07:28 Pulse Ox 96 04/17/21 07:28 Laboratory: Laboratory Last Values WBC 9.80 K/uL (4.3-10.9) 04/17/21 03:55 RBC 2.77 M/uL (3.86-4.86) L 04/17/21 03:55 Hgb 8.6 g/dL (12.0-15.0) L 04/17/21 03:55 Hct 25.3 % (36.0-45.0) L 04/17/21 03:55 MCV 91.2 fL (80-100) 04/17/21 03:55 MCH 31.0 pg (27.0-35.0) 04/17/21 03:55 MCHC 34.0 g/dL (32.0-36.0) 04/17/21 03:55 RDW 15.1 % (12.1-15.2) 04/17/21 03:55 Plt Count 165 K/uL (152-406) 04/17/21 03:55 MPV 7.4 fL (7.6-11.3) L 04/17/21 03:55 Neutrophils % 86.9 % (41.7-73.7) H 04/17/21 03:55 Lymphocytes % 5.0 % (15.3-44.8) L 04/17/21 03:55 Monocytes % 6.4 % (3.3-12.3) 04/17/21 03:55 Eosinophils % 1.3 % (0-4.4) 04/17/21 03:55 Basophils % 0.4 % (0-1.3) 04/17/21 03:55 Absolute Neutrophils 8.5 K/uL (1.8-8.0) H 04/17/21 03:55 Segmented Neutrophils 86 % (40-80) H 04/17/21 03:55 Band Neutrophils 1 % (0-1) 04/17/21 03:55 Absolute Lymphocytes 0.5 K/uL (0.7-4.9) L 04/17/21 03:55 Lymphocytes 7 % (15-42) L 04/17/21 03:55 Monocytes 3 % (0-10) 04/17/21 03:55 Absolute Monocytes 0.6 K/uL (0.1-1.3) 04/17/21 03:55 Eosinophils 2 % (0-3) 04/17/21 03:55 Absolute Eosinophils 0.1 K/uL (0-0.5) 04/17/21 03:55 Basophils 1 % (0-1) 04/17/21 03:55 Absolute Basophils 0.0 K/uL (0-0.5) 04/17/21 03:55 Nucleated RBCs 1 /100WBC 04/17/21 03:55 Toxic Granulation 2+ 04/17/21 03:55 Platelet Estimate Adeq 04/17/21 03:55 Polychromasia Slight 04/17/21 03:55 Anisocytosis 1+ 04/17/21 03:55 Morphology Comment Noted (NOT SEEN) 04/17/21 03:55 Sodium 135 mmol/L (136-145) L 04/17/21 03:55 Potassium 3.4 mmol/L (3.5-5.1) L 04/17/21 03:55 Chloride 101 mmol/L (98-107) 04/17/21 03:55 Carbon Dioxide 25 mmol/L (21-32) 04/17/21 03:55 BUN 94 mg/dL (7-18) H 04/17/21 03:55 Creatinine 5.64 mg/dL (0.55-1.3) H* 04/17/21 03:55 Estimated GFR 7 mL/min (=/>90) L 04/17/21 03:55 Glucose 186 mg/dL (74-106) H 04/17/21 03:55 POC Glucose 170 mg/dL (65-120) H 04/17/21 07:09 Calcium 7.7 mg/dL (8.5-10.1) L 04/17/21 03:55 Phosphorus 4.2 mg/dL (2.5-4.9) 04/17/21 03:55 Magnesium 2.7 mg/dL (1.8-2.4) H 04/17/21 03:55 Albumin 1.9 g/dL (3.4-5.0) L 04/17/21 03:55 Prealbumin 14.6 mg/dL (20-40) L 04/17/21 03:55 Urine Color Yellow (Yellow) 04/17/21 07:30 Urine Appearance Cloudy (Clear) 04/17/21 07:30 Urine pH 5.5 (5.0-7.0) 04/17/21 07:30 Ur Specific [place] 1.015 (1.005-1.030) 04/17/21 07:30 Glucose (UA)(Auto) Negative (Negative) 04/17/21 07:30 Urine Ketones Negative (Negative) 04/17/21 07:30 Urine Blood Trace (Negative) H 04/17/21 07:30 Urine Nitrite Negative (Negative) 04/17/21 07:30 Urine Bilirubin Negative (Negative) 04/17/21 07:30 Urine Urobilinogen 0.2 mg/dL (0.2-1.0) 04/17/21 07:30 Ur Leukocyte Esterase 1+ (Negative) H 04/17/21 07:30 Urine RBC 20-50 /HPF (NONE SEEN) H 04/17/21 07:30 Urine WBC 10-20 /HPF (<5) H 04/17/21 07:30 Ur Squamous Epith Cells 10-20 /HPF (NONE SEEN) H 04/17/21 07:30 Amorphous Sediment 1+ /HPF (NONE SEEN) 04/17/21 07:30 Urine Bacteria 20-50 /HPF (<20) H 04/17/21 07:30 Urine Culture Reflexed Not needed 04/17/21 07:30 Urine Total Protein 2+ (Negative) H 04/17/21 07:30 Weight: 230 lb 3.2 oz Negative Pressure Wound Therapy Present: No Physician Update: Labs reviewed and show mildly low Hgb of 8.6. Will add hemocyte plus and ferrous sulfate. Will be evaluated by physical and occupational therapy. Summary: Patient's care plan and assisted goals have been reviewed and revised as necessary. Please see the Rehabilitation Signature page for all necessary signatures.
--- NOTE | 2021-04-17 14:03 | R.HP ---
HISTORY AND PHYSICAL FACILITY: [facility] ENCOUNTER DATE AND TIME: 04/17/2021 13:57 (VICE PRESIDENT AND PORTFOLIO MANAGER) MR#: [id number] NAME NOEL REAL ADDRESS: [facility] [place]: [place]IP [address] PHONE: DATE OF : 1940 AGE: 80 SSN# [id number] GENDER: Female MARITAL STATUS PRE-HOSPITAL LIVING SETTING 01 - Home (private home/apt. board/care, assisted living, mcc, transitional living) PRE-HOSPITAL LIVING WITH Alone ENCOUNTER PHYSICIAN: Dr. Stephen Goetz M.D. REFERRING DOCTOR: MIRANDA LUI MD DATE OF ADMISSION: 04/16/2021 16:24 (VICE PRESIDENT AND PORTFOLIO MANAGER) REFERRING FACILITY [facility] TYPE AND DETAILS: Type of home: single family house # of levels in the residence: 1 # of steps within the residence: 0 # of steps to enter the residence: 0 ONSET DATE: 04/06/2021 PRIMARY DIAGNOSIS-RELATED SURGERIES: CABG X 4 04/06/21 HISTORY OF PRESENT ILLNESS (HPI): Pt. is a 80 yo Right-handed female. On 04/06/2021 she was admitted to [facility] with diagnosis ISCHEMIC CARDIOMYOPATHY CABG X4. Her impairment category is Cardiac 09 - Cardiac Disorders (09). Pre-morbidly, Pt. was independent/mod-I in Locomotion, Safety Awareness, Social Cognition, and Balanc e; and she had good Sphincter Control, Self-Care, Communication, and Endurance. Currently, she has deficits of Locomotion, Safety Awareness, Social Cognition, Balance, Transfers Con trol, Sphincter Control, Self-Care, Communication, and Endurance. Pt. is now referred to [facility] for acute in-patient rehabilitation in order to maximize patient's functional independence in activities of daily living, strength, ROM, and mobi lity. Patient has realistic goal of being discharged at assistance level 7-Ind to reside at Home with Pt s elf. 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 HISTORY OF STROKES OBESITY COVID 19 (POST) A-Fib Pacemaker PAST SURGICAL HISTORY: Pacemaker CABG SOCIAL HISTORY: - Home Living Alone REVIEW OF SYSTEMS: - Gen No Chills Fatigue No Fever - Eyes No Double Vision No itchiness - ENMT No Difficulty Swallowing - CVS Chest Discomfort No Chest Pain Fatigue No Weight Gain - Resp No Cough No Shortness of Breath - GI Continent No Abdominal Pain Constipation No Diarrhea - Continent No Kidney Pain No Painful Urination No Urinary Urgency - MSK Joint Pain Muscle Cramps Stiffness - Skin No Itching No Rash No Suspicious Lesions - Neuro Coordination Difficulty No Difficulty with Concentration No Memory Loss No Seizures Weakness - Psych Anxiety No Depression No HIV Exposure No Persistent Infections No Seasonal Allergies - Endo No Cold/Heat Intolerance No Excessive Hunger No Excessive Thirst No Excessive Urination PHYSICAL EXAM - Gen Alert and awake Lying in bed No apparent distress Oriented to: person, time, and place - Skin Surgical sites on left and right legs shows good hemostasis. Mild to moderate size blisters on medial left and right thighs. No abnormalities - Eyes No abnormalities - ENMT No abnormalities - Neck No abnormalities - CVS RRR - Chest Chest incision is healing with good hemostasis. - Resp No wheezing - Abd Soft - GI nondistended Deferred - No abnormalities - Ext Moderate edema in both lower extremities. - MSK 4/5 weakness in both lower extremities. - Neuro No focal deficits - Psych Mild anxiety. VITAL SIGNS Temperature: 97.5 F SBP/DBP: 132/54 Pulse: 81 Resp: 16 NURSING: - Shower allowing shower PRECAUTIONS: - Fall Precaution SAFTY AND FALL ACTIVITIES OOB only with supervision QI SCORES: - Self-Care A. Eating 03-Partial/moderate assistance B. Oral hygiene 03-Partial/moderate assistance C. Toileting hygiene 03-Partial/moderate assistance E. Shower/bathe self 03-Partial/moderate assistance F. Upper body dressing 03-Partial/moderate assistance G. Lower body dressing 03-Partial/moderate assistance H. Putting on/taking off footwear 88-Not attempted due to medical condition or safety concerns - Mobility A. Roll left and right 04-Supervision or touching assistance B. Sit to lying 03-Partial/moderate assistance C. Lying to sitting on side of bed 03-Partial/moderate assistance D. Sit to stand 03-Partial/moderate assistance E. Chair/zcp-zk-vvbud transfer 03-Partial/moderate assistance F. Toilet transfer 03-Partial/moderate assistance G. Car transfer 88-Not attempted due to medical condition or safety concerns I. Walk 10 feet 03-Partial/moderate assistance J. Walk 50 feet with two turns 88-Not attempted due to medical condition or safety concerns K. Walk 150 feet 88-Not attempted due to medical condition or safety concerns L. Walking 10 feet on uneven surfaces 88-Not attempted due to medical condition or safety concerns M. 1 step (curb) 88-Not attempted due to medical condition or safety concerns N. 4 steps 88-Not attempted due to medical condition or safety concerns O. 12 steps 88-Not attempted due to medical condition or safety concerns P. Picking up object 88-Not attempted due to medical condition or safety concerns R. Wheel 50 feet with two turns 88-Not attempted due to medical condition or safety concerns S. Wheel 150 feet 88-Not attempted due to medical condition or safety concerns - Bladder and Bowel Bladder continence Bowel continence - Endurance Fair - Balance Fair - Safety Awareness Fair CURRENT FUNC. DEFICITS: Self-Care, Mobility, Endurance, Balance, and Safety Awareness MEDICATIONS: - Other See attached MAR (Medication Administration Record) ASSESSMENT: Pt. is a 80 yo Right-handed female.On 04/06/2021 she was admitted to [facility] with diagnosis ISCHEMI C CARDIOMYOPATHY CABG X4.Her impairment category is Cardiac 09 - Cardiac Disorders (09).Pre-morbidly , Pt. was independent/mod-I in Locomotion, Safety Awareness, Social Cognition, and Balance; and she h ad good Sphincter Control, Self-Care, Communication, and Endurance.Currently, she has deficits of Loc omotion, Safety Awareness, Social Cognition, Balance, Transfers Control, Sphincter Control, Self-Care , Communication, and Endurance.Pt. is now referred to [facility] for acute in- patient rehabilitation in order to maximize patient's functional independence in activities of daily living, strength, ROM, and mobility.- Rehab Goal Patient has realistic goal of being discharged at assistance level 7-Ind to reside at Home with Pt s elf. - Physical Therapy Gait dysfunction - to improve, our physical therapists will perform initial evaluation of pt's status upon admission and devise an individualized program for Gait Training, and Wheel Chair mobility Inability to transfer - to improve, our physical therapists will perform initial evaluation of pt's s tatus upon admission and devise an individualized program for Bed mobility Need for home safety evaluation - to improve, our physical therapists will perform initial evaluation of pt's status upon admission and devise an individualized program for Home Evaluation Need in caregiver upon discharge - to improve, our physical therapists will perform initial evaluatio n of pt's status upon admission and devise an individualized program for Caregiver Training New precaution - to improve, our physical therapists will perform initial evaluation of pt's status u jose admission and devise an individualized program for Patient precaution education Edema - to improve, our physical therapists will perform initial evaluation of pt's status upon admi ssion and devise an individualized program for Elevation Training, and Lymphedema Therapy Poor balance - to improve, our physical therapists will perform initial evaluation of pt's status upo n admission and devise an individualized program for Balance Training Poor endurance - to improve, our physical therapists will perform initial evaluation of pt's status u jose admission and devise an individualized program for Endurance Training Weakness - to improve, our physical therapists will perform initial evaluation of pt's status upon ad mission and devise an individualized program for Aquatic Therapy, Neuromuscular Reeducation, and Stre ngthening Achieving independence - to improve, our physical therapists will perform initial evaluation of pt's status upon admission and devise an individualized program for Community Reintegration Activities - Occupational Therapy ADL deficits - to improve, our occupation therapists will perform initial evaluation of pt's status u jose admission and devise an individualized program for Bathing, Bed mobility, Community Reintegration , Cooking, Dressing, Eating, Fine Motor Skills, Grooming, Homemaking, Kitchen Mobility, Laundry, Rachael ent Education, Safety Awareness, Splinting - Positioning, Transfers(Toilet, Tub, Shower), and Wheel C hair Management Cognitive deficits - to improve, our occupation therapists will perform initial evaluation of pt's st atus upon admission and devise an individualized program for Cognition - orientation Need for child care assistant - to improve, our occupation therapists will perform initial evaluation of pt's s tatus upon admission and devise an individualized program for Caregiver Training Weakness - to improve, our occupation therapists will perform initial evaluation of pt's status upon admission and devise an individualized program for Aquatic Therapy, Balance, Endurance, UE ROM, and U E strengthening MEDICAL PLAN: - Diet Type Start Regular - Diet - Liquid Texture Start Regular - Tube Feed Start N/A - Fall Precaution SAFTY AND FALL - Other See attached MAR (Medication Administration Record) - Diet - Solid Texture Regular - Shower shower DISCHARGE PLAN: - Estimated Length of Stay (days) 10. - Consensus on plan Discharge plan has been discussed with primary caregiver. Patient/Family is in agreement with the antonino n. Primary caregiver is in agreement with the plan. - Patient/Family Goals Return home independently. - Planned Living Setting Upon Discharge Home, to live alone. Transitional Living. Primary caregiver: Pt self. SIGNATURE PANEL: (VICE PRESIDENT AND PORTFOLIO MANAGER)
--- NOTE | 2021-04-17 14:06 | PAPE ---
POST ADMISSION PHYSICIAN EVALUATION PATIENT: [facility] MR# [id number] REFERRING DOCTOR MIRANDA LUI MD PRIMARY CARE PHYSICIAN JOEY JOSUE EVALUATION DATE AND TIME 04/17/2021 14:04 (CUSHION MAKER HAND) NAME NOEL REAL DATE OF 1940 AGE 80 PHONE N# [id number] GENDER female EVALUATING PHYSICIAN Dr. Stephen Goetz M.D. ADMISSION DIAGNOSIS: ISCHEMIC CARDIOMYOPATHY CABG X4 ONSET DATE 04/06/2021 POST-ADMISSION FUNCTIONAL/MEDICAL STATUS: - Bladder Same accident frequency: 7-Ind - No accidents in the past 7 days - Bowel Same accident frequency: 7-Ind - No accidents in the past 7 days - Walking Same score based on distance walked: 0(N/A) Same score based on distance walked: 1(<=50ft) - Wheelchair Same score based on distance traveled: 0(N/A) STATUS CHANGE EVALUATION: No change in Functional or Medical Status is identified compared with Pre-Admission screening. PATIENT NEEDS CLOSE MEDICAL SUPERVISION BY A REHABILITATION PHYSICIAN FOR: Coordination of Treatment Team Medical and Co-Morbidity Management Wound Care Pain Management Diabetes Management Post-Op Complications DVT Management PATIENT REQUIRES 24X7 REHAB NURSING FOR MEDICAL AND FUNCTIONAL MGT. OF THE FOLLOWING DEFICITS: Disease Management Medication Management Patient/Family Education Providing Safe Environment Skin Integrity Respiratory/Airway Management PATIENT REQUIRES INTENSIVE, COORDINATED INTERDISCIPLINARY APPROACH TO REHAB: Arranging Home Equipment/Services Discharge Planning Family Intervention/Training Patternmaker Hand/Case Management LIST OF IDENTIFIED AND POTENTIAL PROBLEMS: Alteration in leisure activities Bladder, Incontinence Bowel, Incontinence Infection, Actual or Potential Mobility Impaired Pain, Alteration in Comfort Self Care Deficit Skin Integrity, Actual or Potential Urinary Tract Infection (UTI), Actual or Potential RISK FOR COMPLICATIONS - CARDIC CARDIOMYOPATHY. - EXTUBATED HYPOTENSION. POST-OP HYPOTENSION. - FALLS Patient will be evaluated for Fall Precautions and will be placed on Fall Precautions as indicated pe r protocol. - ANEMIA - DIABETIC COMPLICATIONS pt will receive a specialized diet to help manage blood glucose levels. Regular monitoring and manage ment of blood glucose levels. - CVA pt's blood pressures have been inconsistent and require monitoring and medication management as inidi cated by physician. pt has a history of A-Fib and symptoms will be monitored. - SKIN BREAKDOWN Nursing will assess skin daily using assessment tool and will place on Skin Breakdown Precautions as Indicated per protocol. - DVT PTT and INR will be monitored to effectively mitigate risk for development of DVT or PE while here. M edications will be administered as per MD. Mobility training and regular exercise. - Pneumonia Symptoms will be monitored and chest x-rays conducted as warranted. Medication management as needed. pt will be trained on incentive spirometry and deep breathing activities. INTERVENTIONS - COVID-19 MONITORING VITALS. ASSESSMENT OF NEED OF O2. - CAD MANAGEMENT. - HYPERTENSION Blood pressure will be regularly assessed and medications administered as per physician vita montoya. - CHF daily weights will be obtained. monitoring of patient symptoms and medication management by physician . - ESRD Regular blood draws will occur to monitor patient's kidney function and pt will receive necessary sumit lysis as managed by physician. - DIABETES Monitor blood glucose levels and administer medication as indicated by Physician. Diet will be custom ized to manage diabetic needs. - ANEMIA - Surgical Site Management regular assessment of surgical site and appropriate dressing changes as warranted by physician. PATIENT COULD BE AT RISK FOR COMPLICATIONS FROM ADVERSE MEDICAL CONDITIONS DUE TO HIS/HER COMORBIDITI ES AND THE RIGORS OF THE INTENSIVE REHABILLITATION PROGRAM. METHODS OR INTERVENTIONS TO AVOID COMPLIC ATIONS INCLUDE: - Deep Vein Thrombosis (DVT) Prophylaxis therapy for prevention . Sequential Compression Device (SCD). TE D Hose. - Bleeding Assess lab values and manage abnormalities. Nursing to teach precautions for anti-coagulation therapy . Wound to be assessed every shift. - Infection Clinical staff to assess and manage the signs and symptoms of infection including fever, redness, war mth, etc. - Urinary Tract Infection - Falls Patient will be evaluated for Fall Precautions and will be placed on Fall Precautions as indicated pe r protocol. - Skin Breakdown Nursing will assess skin daily using assessment tool and will place on Skin Breakdown Precautions as indicated per protocol. - Pain Clinical staff may employ non-medication methods such as massage, distraction, decrease stimulus, etc . as needed. Clinical staff will assess patient's pain level every shift per protocol to assess and e nsure pain management effectiveness. Medications will be given and the pain level re-assessed. PRELIMINARY PLAN OF CARE: - Physical Therapy Patient needs Physical Therapy for a daily minimum of 1.5 hours at least 5 out of 7 days, to improve: Mobility, Strengthening, Transfers, Stretching, ROM, Endurance, Ability to manage stairs, Gait, and Balance. - Speech Therapy Patient needs Speech Therapy for a daily minimum of 0.5 hours at least 5 out of 7 days, to improve: S wallowing, Cognition, Language Skills, and Compensatory Strategies. - Rehabilitation Nursing Patient requires 24x7 Rehabilitation Nursing for: Pain Issues, Identifying and preventing risk factor s, Monitoring and reporting current medical conditions, Assisting with ambulation and transfer, Suha ting with all ADL-s, Teaching patients about disease process and medications, Family teaching, Provid ing safe environment, Bowel and Bladder Issues, Skin Integrity, and Medication Management. Patient needs Patternmaker Hand and/or Case Management for: Discharge Planning, Arranging Home Equipmen t or Services, and Family Interventions. - Dietary and Nutrition Services Patient needs Dietary and Nutrition Services for: Adequate Nutrition, Nutritional Supplements, and Nu tritional Education. - Occupational Therapy Patient needs Occupational Therapy for a daily minimum of 1.5 hours at least 5 out of 7 days, to impr ove Activities of Daily Living, including: Eating, Grooming, Bathing, Dressing, Toileting, Toilet Tra nsfers, Community Reintegration, Higher functional activities, Adaptive Equipment, Splinting, Househo ld Tasks, and Other activities as determined. QI SCORES: - Self-Care A. Eating 03-Partial/moderate assistance B. Oral hygiene 03-Partial/moderate assistance C. Toileting hygiene 03-Partial/moderate assistance E. Shower/bathe self 03-Partial/moderate assistance F. Upper body dressing 03-Partial/moderate assistance G. Lower body dressing 03-Partial/moderate assistance H. Putting on/taking off footwear 88-Not attempted due to medical condition or safety concerns - Mobility A. Roll left and right 04-Supervision or touching assistance B. Sit to lying 03-Partial/moderate assistance C. Lying to sitting on side of bed 03-Partial/moderate assistance D. Sit to stand 03-Partial/moderate assistance E. Chair/yqx-qk-usvbe transfer 03-Partial/moderate assistance F. Toilet transfer 03-Partial/moderate assistance G. Car transfer 88-Not attempted due to medical condition or safety concerns I. Walk 10 feet 03-Partial/moderate assistance J. Walk 50 feet with two turns 88-Not attempted due to medical condition or safety concerns K. Walk 150 feet 88-Not attempted due to medical condition or safety concerns L. Walking 10 feet on uneven surfaces 88-Not attempted due to medical condition or safety concerns M. 1 step (curb) 88-Not attempted due to medical condition or safety concerns N. 4 steps 88-Not attempted due to medical condition or safety concerns O. 12 steps 88-Not attempted due to medical condition or safety concerns P. Picking up object 88-Not attempted due to medical condition or safety concerns R. Wheel 50 feet with two turns 88-Not attempted due to medical condition or safety concerns S. Wheel 150 feet 88-Not attempted due to medical condition or safety concerns - Bladder and Bowel Bladder continence Bowel continence - Endurance Fair - Balance Fair - Safety Awareness Fair POTENTIAL FUNCTIONAL GOALS FOR PATIENT TO ACHIEVE BY DISCHARGE: - Safety Precaution Patient will remain free from falls or injury at time of discharge. - Bed Mobility Patient will perform bed mobility at 4-[place] level of assistance. - Transfers Patient will complete transfers from bed to chair at 4-[place] level of assistance. - Mobility Patient will ambulate 150 ft with 4-Jessee level of assistance with RW. PATIENT REHAB POTENTIAL Adela REAL is able and expected to receive 3 hours of individualized therapy daily on at least 5 o f every 7 days Adela REAL's prognosis for significant practical improvement within a reasonable period of time ap pears Good Expected level of measurable improvement will be of a practical value to Adela REAL's functional c apacity or adaptations to impairments Has a viable Discharge Plan Medically appropriate; condition is sufficiently stable to participate in intensive rehab program DISCHARGE PLAN: - Estimated Length of Stay (days) 10. - Consensus on plan Discharge plan has been discussed with primary caregiver. Patient/Family is in agreement with the antonino n. Primary caregiver is in agreement with the plan. - Patient/Family Goals Return home independently. - Planned Living Setting Upon Discharge Home, to live alone. Transitional Living. Primary caregiver: Pt self. CONCLUSION ON REHABILITATION NECESSITY: I have evaluated patient's pre-admission functional status and, comparing it to the patient's post-ad mission functional status now, I conclude that the pre-admission assessment was accurate. Patient's c ondition on admission supports the medical necessity of admission to [facility]. It is safe to proceed with patient's therapy program. SIGNATURE PANEL: (CUSHION MAKER HAND)
[2021-04-17] MEDS ORDERED: GLUCAGON 1 MG/VIAL IM PRN (15:59)
[2021-04-17] MEDS ORDERED: D50W 25 GM/50 ML SYRINGE IV PRN (15:59)
[2021-04-17] MEDS: INSULIN -REGULAR HUMAN 50 UNIT/0.5 ML ML SQ SCH ×2 (16:28→20:10)
[2021-04-17] MEDS: NEPRO SHAKE 237 ML CAN PO SCH (17:16)
[2021-04-17] MEDS: ATORVASTATIN 40 MG TAB PO SCH (20:10)
[2021-04-17] MEDS: DOCUSATE NA/SENNA CONC 1 TAB PO PRN (20:10)
[2021-04-18] MEDS: HEPARIN 5000 UNIT/ML 1 ML VIAL SQ SCH ×3 (01:00→17:04)
[2021-04-18] MEDS: IPRATROPIUM BROM 0.5MG/2.5ML NEB SCH ×4 (01:21→20:00)
[2021-04-18] MEDS: carvediloL 3.125 MG TAB PO SCH ×2 (05:41→17:15)
[2021-04-18] MEDS: PANTOPRAZOLE 40MG TABLET PO SCH (06:33)
[2021-04-18] MEDS: INSULIN -REGULAR HUMAN 50 UNIT/0.5 ML ML SQ SCH ×4 (07:30→19:52)
[2021-04-18] MEDS: NEPRO SHAKE 237 ML CAN PO SCH ×3 (07:33→17:14)
[2021-04-18] MEDS: MIDODRINE HCL 5 MG TABLET PO SCH ×2 (07:33→19:51)
[2021-04-18] MEDS: INSULIN GLARGINE 100 UNIT/ML SQ SCH (08:49)
[2021-04-18] MEDS: INSULIN LISPRO 100 UNIT/1 ML SQ SCH ×3 (08:49→17:14)
[2021-04-18] MEDS: CALCIUM ACETATE 667 MG TAB PO SCH ×3 (08:50→17:16)
[2021-04-18] MEDS: ASCORBIC ACID 500 MG TABLET PO SCH (08:50)
[2021-04-18] MEDS: ASPIRIN 81 MG CHEWABLE TABLET PO SCH (08:50)
[2021-04-18] MEDS: POLYETHYL GLY 3350 17 GM/DOSE PO SCH ×2 (08:50→19:51)
[2021-04-18] MEDS: VITAMIN B COMPLEX 1 CAP PO SCH (08:50)
[2021-04-18] MEDS: ZINC SULFATE 220 MG CAP PO SCH (08:51)
[2021-04-18] MEDS: FERROUS SULFATE 325 MG TAB PO SCH (08:51)
[2021-04-18] MEDS: CLOPIDOGREL 75 MG TABLET PO SCH (08:51)
[2021-04-18] MEDS: FE SULF/FA/VIT B COMP & C TAB PO SCH (08:51)
[2021-04-18] MEDS: CALCITROL 0.25 MCG CAP PO SCH (08:51)
[2021-04-18] MEDS: NA CHLORIDE 0.9% 1,000 ML IV SCH ×2 (10:00→23:20)
--- NOTE | 2021-04-18 13:14 | RAD REPORT ---
EXAM DESCRIPTION: RAD - Abdomen 1 View (KUB) - 04/18/2021 12:18 pm CLINICAL HISTORY: R/O abdominal obstruction. COMPARISON: No comparisons FINDINGS: Bowel gas pattern is non-specific. No obstruction, free air or pneumatosis. Air is seen f illing but not distending the stomach. Air and stool are seen in nondilated colon with a few air-fill ed nondilated small bowel loops. No suspicious calcifications. IMPRESSION: Nonspecific bowel gas pattern. No obstruction, free air or pneumatosis.
--- NOTE | 2021-04-18 17:01 | RAD REPORT ---
EXAM DESCRIPTION: RAD - Chest Single View - 04/18/2021 4:41 pm CLINICAL HISTORY: R/O pneumonia, history of recent four-vessel CABG COMPARISON: Portable March 05 TECHNIQUE: AP portable chest image was obtained 04/18/2021 4:41 pm . FINDINGS: CABG surgical wound changes are now present. Left subclavian pacemaker remains in place. I ncreased opacification is present in the right base obscuring the right heart border right hemidiaphr agm. Right middle lobe atelectasis and/or infiltrate can give this appearance. Right-sided pleural ef fusion may well be present. Heart size is prominent. Rotation distorts the mediastinum. No pneumothor ax is present. No acute bony abnormality seen. No acute aortic findings suspected. IMPRESSION: Right base opacification new from prior imaging. This could be atelectasis or pneumonia. Right base pleural effusion may well be present.
[2021-04-18] MEDS: CRANBERRY FRUIT EXTRACT 400 MG CAP PO SCH (19:52)
[2021-04-18] MEDS: ATORVASTATIN 40 MG TAB PO SCH (19:52)
[2021-04-18] MEDS ORDERED: levoFLOXacin 500 MG TAB PO SCH (20:00)
[2021-04-19] MEDS: HEPARIN 5000 UNIT/ML 1 ML VIAL SQ SCH ×3 (00:25→17:00)
[2021-04-19] MEDS: IPRATROPIUM BROM 0.5MG/2.5ML NEB SCH ×4 (01:50→20:00)
[2021-04-19 04:09] LABS: Absolute Lymphocytes (CBC) 0.4 K/uL (0.7-4.9); Hematocrit 26.1 % (36.0-45.0); Lymphocytes % 3.8 % (15.3-44.8); MPV 7.7 fL (7.6-11.3); RBC Red Blood Cell Count 2.84 M/uL (3.86-4.86)
[2021-04-19 04:25] LABS: Potassium 3.8 mmol/L (3.5-5.1)
[2021-04-19] MEDS: PANTOPRAZOLE 40MG TABLET PO SCH (05:18)
[2021-04-19] MEDS: carvediloL 3.125 MG TAB PO SCH ×2 (05:18→17:03)
[2021-04-19] MEDS: INSULIN -REGULAR HUMAN 50 UNIT/0.5 ML ML SQ SCH ×4 (07:30→19:37)
[2021-04-19] MEDS: POLYETHYL GLY 3350 17 GM/DOSE PO SCH ×2 (08:00→19:36)
[2021-04-19] MEDS: INSULIN GLARGINE 100 UNIT/ML SQ SCH (08:19)
[2021-04-19] MEDS: INSULIN LISPRO 100 UNIT/1 ML SQ SCH ×4 (08:20→17:02)
[2021-04-19] MEDS: MIDODRINE HCL 5 MG TABLET PO SCH ×2 (08:20→18:44)
[2021-04-19] MEDS: CALCITROL 0.25 MCG CAP PO SCH (08:21)
[2021-04-19] MEDS: ASCORBIC ACID 500 MG TABLET PO SCH (08:21)
[2021-04-19] MEDS: VITAMIN B COMPLEX 1 CAP PO SCH (08:21)
[2021-04-19] MEDS: FERROUS SULFATE 325 MG TAB PO SCH (08:21)
[2021-04-19] MEDS: ASPIRIN 81 MG CHEWABLE TABLET PO SCH (08:21)
[2021-04-19] MEDS: CLOPIDOGREL 75 MG TABLET PO SCH (08:22)
[2021-04-19] MEDS: CALCIUM ACETATE 667 MG TAB PO SCH ×3 (08:22→17:02)
[2021-04-19] MEDS: NEPRO SHAKE 237 ML CAN PO SCH ×3 (08:22→17:01)
[2021-04-19] MEDS: CRANBERRY FRUIT EXTRACT 400 MG CAP PO SCH ×2 (08:22→23:05)
[2021-04-19] MEDS: ZINC SULFATE 220 MG CAP PO SCH (08:22)
[2021-04-19] MEDS: FE SULF/FA/VIT B COMP & C TAB PO SCH (08:22)
[2021-04-19] MEDS ORDERED: NA CHLORIDE 0.9% 500 ML ONE (14:41)
[2021-04-19] MEDS ORDERED: LIDOCAINE 1% MPF 30 ML VIAL ONE (15:33)
--- NOTE | 2021-04-19 16:12 | P.CNS ---
Date of Consult: 04/19/21 PC: I was asked to see this 80-year-old female in regards to the placement of a temporary dialysis catheter. HPC: Patient recently underwent coronary artery bypass surgery. Has been in rehab. Her BUN and creatinine have gone up, and peritoneal dialysis is not correcting her electrolytes. Requires emergent hemodialysis. PSHx: Open heart surgery, pacemaker insertion PMHx: Hypertension, diabetes Social Hx: No known allergy Sys R: Unobtainable at the moment, patient is short of breath O/E: Awake alert vital signs are stable, patient still with some HEENT: Not jaundiced, appears to have an insertion site of the right IJ Chest: Sternotomy incision, pacemaker left-sided chest Abd: Negative [place]: No evidence of fracture on the right side Impression: Patient requires vascular access for emergent dialysis Plan: I discussed with the patient and her daughter the plan for catheter placement. She looks like she has a recent IJ, the left subclavian is occupied with her pacemaker. I will go to the right subclavian. The risks of this procedure has been discussed. The possibility of bleeding, infection, injury to blood vessels and surrounding structures were outlined displacement of pacemaker wires were explained. She understands and wants to proceed.
--- NOTE | 2021-04-19 16:14 | P.OP ---
Preoperative diagnosis: Lack of vascular access Postoperative diagnosis: The same Primary procedure: Insertion of right subclavian dialysis catheter Secondary procedure: Fluoroscopy Anesthesia: Local Estimated blood loss: Less than 10 cc Operative Technique: The patient was brought the operating room and placed supine on the table. After we will have him position between the shoulders, the area of the right chest was prepped with a chlorhexidine solution and she was draped in the usual aseptic manner. The right subclavicular area was infiltrated with 1% lidocaine. A finder needle was used to cannulate the right subclavian vein. A guidewire was now carefully passed down through this. Fluoroscopy was used to verify that the guidewire had gone down in the right direction and was not interfering with any of her pacemaker wires. The needle was now removed leaving the wire in place. A small opening was made at the skin level with an 11 blade. The dilators were progressively passed over the wire. We used fluoroscopy to make sure they made the curve easily. This having been done and observed, the catheter was now placed with a guidewire and using a modified Seldinger technique was used to place it into the right superior vena cava. The catheter was then anchored in place. The catheter was flushed with a saline solution. It was then sutured in place and a sterile dressing was applied. At the end of procedure she was in a stable condition was sent to the recovery room. Needle sponge instrument count were correct. Chest x-ray is pending.
--- NOTE | 2021-04-19 17:11 | RAD REPORT ---
EXAM DESCRIPTION: Fan Single View04/19/2021 4:59 pm CLINICAL HISTORY: Device placement/central venous catheter placement COMPARISON: 2020 FINDINGS: Central venous catheter has been placed near the junction of the SVC and atrium. No pneumothorax seen Mild interstitial pulmonary opacities. Right basilar opacity. Heart is enlarged. Postsurgical changes involve the chest. Pacemaker leads place IMPRESSION: Central venous catheter has been placed near the junction of the SVC and atrium. No pneumothorax seen Mild interstitial pulmonary edema is suspected. Opacification of the right lung base may represent a combination of atelectasis and pleural effusion. Underlying mass could have this appearance as well. It is without significant change from the prior exam
--- NOTE | 2021-04-19 17:25 | RAD REPORT ---
EXAM DESCRIPTION: RAD - Fluoroscopy <1 Hour - 04/19/2021 5:15 pm CLINICAL HISTORY: Device placement central venous catheter placement FINDINGS: A central venous catheter was placed into the junction of the right atrium and superior ve na cava. 3 fluoroscopic spot images are submitted. Fluoroscopy time 0.3 minutes The examination was performed by Dr. Turner
[2021-04-19] MEDS ORDERED: NS 0.9% VIAL 20 ML ONE (18:16)
[2021-04-19] MEDS: ATORVASTATIN 40 MG TAB PO SCH (23:04)
--- NOTE | 2021-04-20 00:26 | CON ---
Date of Consultation: 04/19/2021 Chief Complaint: End-stage renal disease. History Of Present Illness: The patient is a 80-year-old woman with multiple medical problems. Recently, she was hospitalized at [facility] for COVID pneumonia and respiratory failure. She has coronary artery disease, underwent coronary artery bypass surgery. She has a pacemaker. Daughter is at the bedside. The patient cannot provide review of systems. She feels short of breath. The patient has been on peritoneal dialysis. Prior to that, she had hemodialysis. Recently, she developed shortness of breath and fluid overload, remains on peritoneal dialysis, although azotemia has been elevated. The patient requested to resume hemodialysis and temporary dialysis catheter was placed. Surgical consultation was requested for hemodialysis catheter. The patient is considering to resume peritoneal dialysis when fluid overload is controlled. Past Medical History: Hypertension, diabetes mellitus, obesity, hyperlipidemia, and end-stage renal disease, on peritoneal dialysis. Past Surgical History: PD catheter placement, pacemaker placement, and CABG. Social History: Denies tobacco or alcohol. Family History: Noncontributory. ROS: unobtainable , patient lethargic Physical Examination: General: The patient is awake and alert, follows commands. Eyes: Anicteric sclerae. EOMI. Ears, Nose, Mouth, and Throat: Oral mucosa moist. No pallor. Neck: Supple. No bruits. Lungs: Diminished breath sounds at bases. Heart: S1, S2. No pericardial friction rub. Abdomen: Obese, soft, and nontender. Extremities: No edema. No clubbing. No cyanosis. Impression And Plan: 1. End-stage renal disease. Hemodialysis will be done today with ultrafiltration to control azotemia and provide negative fluid balance. The patient will require daily dialysis to control fluid overload. Plan is to continue low-sodium diet and p.o. fluid restriction. 2. Anemia due to chronic kidney disease. Continue STEPHANI. 3. Renal osteodystrophy. Continue renal diet and binders. 4. Congestive heart failure, fluid overload. Continue low-sodium diet, fluid restriction, and adjust ultrafiltration with dialysis to treat fluid overload. EB/MODL Voice ID: [id number] Report ID: [id number] SANDRA
[2021-04-20] MEDS: HEPARIN 5000 UNIT/ML 1 ML VIAL SQ SCH ×4 (01:00→20:30)
[2021-04-20] MEDS: IPRATROPIUM BROM 0.5MG/2.5ML NEB SCH ×4 (01:50→19:28)
[2021-04-20] MEDS: PANTOPRAZOLE 40MG TABLET PO SCH (05:10)
[2021-04-20] MEDS: carvediloL 3.125 MG TAB PO SCH ×2 (05:11→17:04)
[2021-04-20 07:04] LABS: Absolute Lymphocytes (CBC) 0.4 K/uL (0.7-4.9); Lymphocytes % 4.3 % (15.3-44.8); MPV 6.9 fL (7.6-11.3); RBC Red Blood Cell Count 2.79 M/uL (3.86-4.86)
[2021-04-20] MEDS: INSULIN -REGULAR HUMAN 50 UNIT/0.5 ML ML SQ SCH ×4 (07:08→19:39)
[2021-04-20 07:11] LABS: Protime INR 1.17
[2021-04-20 07:21] LABS: Potassium 4.3 mmol/L (3.5-5.1)
[2021-04-20] MEDS: POLYETHYL GLY 3350 17 GM/DOSE PO SCH ×2 (08:00→19:38)
[2021-04-20] MEDS: INSULIN LISPRO 100 UNIT/1 ML SQ SCH ×4 (08:00→18:09)
[2021-04-20] MEDS: CALCIUM ACETATE 667 MG TAB PO SCH ×3 (08:32→18:09)
[2021-04-20] MEDS: ZINC SULFATE 220 MG CAP PO SCH (08:32)
[2021-04-20] MEDS: ASPIRIN 81 MG CHEWABLE TABLET PO SCH (08:32)
[2021-04-20] MEDS: CRANBERRY FRUIT EXTRACT 400 MG CAP PO SCH ×2 (08:32→19:38)
[2021-04-20] MEDS: FERROUS SULFATE 325 MG TAB PO SCH (08:33)
[2021-04-20] MEDS: CALCITROL 0.25 MCG CAP PO SCH (08:33)
[2021-04-20] MEDS: FE SULF/FA/VIT B COMP & C TAB PO SCH (08:33)
[2021-04-20] MEDS: CLOPIDOGREL 75 MG TABLET PO SCH (08:33)
[2021-04-20] MEDS: VITAMIN B COMPLEX 1 CAP PO SCH (08:34)
[2021-04-20] MEDS: ASCORBIC ACID 500 MG TABLET PO SCH (08:34)
[2021-04-20] MEDS: MIDODRINE HCL 5 MG TABLET PO SCH ×2 (08:34→19:38)
[2021-04-20] MEDS: NEPRO SHAKE 237 ML CAN PO SCH ×3 (09:00→18:10)
[2021-04-20] MEDS: INSULIN GLARGINE 100 UNIT/ML SQ SCH (09:16)
[2021-04-20 10:33] LABS: Smudge Cells PRESENT
[2021-04-20 10:34] LABS: Anisocytosis SLIGHT; Blood Morphology Comment NOTED (NOT SEEN); Hypochromasia 1+; Platelet Estimate ADEQ; Polychromasia SLIGHT
[2021-04-20] MEDS ORDERED: D10W 125 ML IV PRN (15:07)
[2021-04-20] MEDS: EPOETIN 4,000 UNIT/ML VIAL IV SCH (15:45)
--- NOTE | 2021-04-20 18:11 | R.PN ---
PROGRESS NOTES ENCOUNTER DATE AND TIME: 04/20/2021 18:03 (EMPLOYMENT LEGAL ASSISTANT) NAME NOEL REAL DATE OF : 1940 DATE OF ADMISSION: 04/16/2021 16:24 (EMPLOYMENT LEGAL ASSISTANT) ISCHEMIC CARDIOMYOPATHY CABG [id number] COMPLAINT: Cardiac debility s/p 4 vessel CABG. SUBJECTIVE: Pt denied any depression. Pt denied any Shortness of Breath. CBC differential is normal. Glucose 203 to 392, albumin 2.2, UA shows > 50 bacteria, 3+ esterase, WBC TNTC. Covid-19 is negative. Ambulated 500' with contact guard assistance. Up and down 15 steps and self-propelled wheelchair 100' with contact guard assistance. VITAL SIGNS Temperature: 97.4 F SBP/DBP: 135/62 Pulse: 84 Resp: 16 MEDICATION ALLERGIES: No Known Drug Allergies (NKDA) ENVIRONMENTAL ALLERGIES: - Substance Allergies None Known - Other Allergies None Known NURSING: - Shower allowing shower PRECAUTIONS: - Fall Precaution SAFTY AND FALL ACTIVITIES OOB only with supervision THERAPIES: - Dietary and Nutrition Adequate Nutrition. Nutritional Education. Nutritional Supplements. - Occupational Therapy Cognitive Retraining. Visual Perceptual Training. ADL Training. Adaptive Equipment. Evaluate and Glenny t. Safety Awareness. Transfer Training. Patient/Family Education. - Speech Therapy Cognitive Training. Expressive Language Skills. Memory Strategies. Receptive Language Skills. Speech Intelligibility Training. Evaluate and Treat. - Physical Therapy Mobility Training. Gait Training. Safety Awareness. Transfer Training. Balance Training. Evaluate and Treat. PHYSICAL EXAM - Gen Alert and awake Lying in bed No apparent distress Oriented to: person, time, and place - Skin Surgical sites on left and right legs shows good hemostasis. Mild to moderate size blisters on medial left and right thighs. No abnormalities - Eyes No abnormalities - ENMT No abnormalities - Neck No abnormalities - CVS RRR - Chest Chest incision is healing with good hemostasis. - Resp No wheezing - Abd Soft - GI nondistended Deferred - No abnormalities - Ext Moderate edema in both lower extremities. - MSK 4/5 weakness in both lower extremities. - Neuro No focal deficits - Psych Mild anxiety. ASSESSMENT: Pt. is a 80 yo Right-handed female.On 04/06/2021 she was admitted to [facility] with diagnosis ISCHEMI C CARDIOMYOPATHY CABG X4.Her impairment category is Cardiac 09 - Cardiac Disorders (09).Pre-morbidly , Pt. was independent/mod-I in Locomotion, Safety Awareness, Social Cognition, and Balance; and she h ad good Sphincter Control, Self-Care, Communication, and Endurance.Currently, she has deficits of Loc omotion, Safety Awareness, Social Cognition, Balance, Transfers Control, Sphincter Control, Self-Care , Communication, and Endurance.Pt. is now referred to [facility] for acute in- patient rehabilitation in order to maximize patient's functional independence in activities of daily living, strength, ROM, and mobility.- Rehab Goal Patient has realistic goal of being discharged at assistance level 7-Ind to reside at Home with Pt s elf. MDM/PLAN: - Physical Therapy Gait dysfunction - to improve, our physical therapists will perform initial evaluation of pt's statu s upon admission and devise an individualized program for Gait Training, and Wheel Chair mobility Inability to transfer - to improve, our physical therapists will perform initial evaluation of pt's status upon admission and devise an individualized program for Bed mobility Need for home safety evaluation - to improve, our physical therapists will perform initial evaluatio n of pt's status upon admission and devise an individualized program for Home Evaluation Need in caregiver upon discharge - to improve, our physical therapists will perform initial evaluati on of pt's status upon admission and devise an individualized program for Caregiver Training New precaution - to improve, our physical therapists will perform initial evaluation of pt's status upon admission and devise an individualized program for Patient precaution education Edema - to improve, our physical therapists will perform initial evaluation of pt's status upon admis preeti and devise an individualized program for Elevation Training, and Lymphedema Therapy Poor balance - to improve, our physical therapists will perform initial evaluation of pt's status up on admission and devise an individualized program for Balance Training Poor endurance - to improve, our physical therapists will perform initial evaluation of pt's status upon admission and devise an individualized program for Endurance Training Weakness - to improve, our physical therapists will perform initial evaluation of pt's status upon a dmission and devise an individualized program for Aquatic Therapy, Neuromuscular Reeducation, and Str engthening Achieving independence - to improve, our physical therapists will perform initial evaluation of pt's status upon admission and devise an individualized program for Community Reintegration Activities - Occupational Therapy ADL deficits - to improve, our occupation therapists will perform initial evaluation of pt's status upon admission and devise an individualized program for Bathing, Bed mobility, Community Reintegratio n, Cooking, Dressing, Eating, Fine Motor Skills, Grooming, Homemaking, Kitchen Mobility, Laundry, Pat ient Education, Safety Awareness, Splinting - Positioning, Transfers(Toilet, Tub, Shower), and Wheel Chair Management Cognitive deficits - to improve, our occupation therapists will perform initial evaluation of pt's s tatus upon admission and devise an individualized program for Cognition - orientation Need for wound care technician - to improve, our occupation therapists will perform initial evaluation of pt's status upon admission and devise an individualized program for Caregiver Training Weakness - to improve, our occupation therapists will perform initial evaluation of pt's status upon admission and devise an individualized program for Aquatic Therapy, Balance, Endurance, UE ROM, and UE strengthening - Other See attached MAR (Medication Administration Record) - Diet Type Continue Regular - Diet - Liquid Texture Continue Regular - Tube Feed Continue N/A - Fall Precaution SAFTY AND FALL - Diet - Solid Texture Continue Regular - Shower allowing shower FUNCTIONAL STATUS: UPDATED AT WEEKLY TEAM CONFERENCE - Bladder Same accident frequency: 7-Ind - No accidents in the past 7 days - Bowel Same accident frequency: 7-Ind - No accidents in the past 7 days - Walking Same score based on distance walked: 0(N/A) Same score based on distance walked: 1(<=50ft) - Wheelchair Same score based on distance traveled: 0(N/A) FUNCTIONAL STATUS: - Self-Care A. Eating Ind B. Grooming Ind C. Bathing sup D. Dressing - Upper sup E. Dressing - Lower [place] F. Toileting [place] - Sphincter Control G. Bladder control Yadira H. Bowel control Yadira - Transfers Control I. Bed/Chair/Wheelchair [place] J. Toilet [place] K. Tub/Shower modA - Locomotion L. Walk/Wheelchair (B) [place] M. Stairs modA - Communication N. Comprehension (B) Yadira O. Expression (B) Yadira - Social Cognition P. Social Interaction Yadira Q. Problem Solving Yadira R. Memory Yadira - Endurance Fair - Balance Fair - Safety Awareness Fair QI SCORES: - Self-Care A. Eating 03-Partial/moderate assistance B. Oral hygiene 03-Partial/moderate assistance C. Toileting hygiene 03-Partial/moderate assistance E. Shower/bathe self 03-Partial/moderate assistance F. Upper body dressing 03-Partial/moderate assistance G. Lower body dressing 03-Partial/moderate assistance H. Putting on/taking off footwear 88-Not attempted due to medical condition or safety concerns - Mobility A. Roll left and right 04-Supervision or touching assistance B. Sit to lying 03-Partial/moderate assistance C. Lying to sitting on side of bed 03-Partial/moderate assistance D. Sit to stand 03-Partial/moderate assistance E. Chair/[id number] transfer 03-Partial/moderate assistance F. Toilet transfer 03-Partial/moderate assistance G. Car transfer 88-Not attempted due to medical condition or safety concerns I. Walk 10 feet 03-Partial/moderate assistance J. Walk 50 feet with two turns 88-Not attempted due to medical condition or safety concerns K. Walk 150 feet 88-Not attempted due to medical condition or safety concerns L. Walking 10 feet on uneven surfaces 88-Not attempted due to medical condition or safety concerns M. 1 step (curb) 88-Not attempted due to medical condition or safety concerns N. 4 steps 88-Not attempted due to medical condition or safety concerns O. 12 steps 88-Not attempted due to medical condition or safety concerns P. Picking up object 88-Not attempted due to medical condition or safety concerns R. Wheel 50 feet with two turns 88-Not attempted due to medical condition or safety concerns S. Wheel 150 feet 88-Not attempted due to medical condition or safety concerns - Bladder and Bowel Bladder continence Bowel continence - Endurance Fair - Balance Fair - Safety Awareness Fair CURRENT [facility]. DEFICITS: Self-Care, Mobility, Endurance, Balance, and Safety Awareness SIGNATURE PANEL: (EMPLOYMENT LEGAL ASSISTANT)
--- NOTE | 2021-04-20 18:33 | R.PN ---
PROGRESS NOTES ENCOUNTER DATE AND TIME: 04/20/2021 18:23 (LEAF STRIPPER) NAME NOEL REAL DATE OF : 1940 DATE OF ADMISSION: 04/16/2021 16:24 (LEAF STRIPPER) ISCHEMIC CARDIOMYOPATHY CABG [id number] COMPLAINT: Cardiac debility s/p 4 vessel CABG. SUBJECTIVE: Pt denied any depression. Pt denied any Shortness of Breath. Cardiac debility, S/P 4 vessel CABG. WBC 9.6, Hgb 8.8. Lighting Engineer 3.55, Na 135, glucose 150 to 270. UA: 1+ esterase, WBC 10-20, bacteria 20-50. Renal service started HD after a port was placed by general surgery. Repeat chest x-ray 04-20-21 shows mild interstitial pulmonary edema. No changes from interval exam. Ambulated 3 steps with rolling walker and standby assistance. VITAL SIGNS 04/20/2021 Temperature: 96.8 F Resp: 16 Pulse: 69 SBP/DBP: 96/58 MEDICATION ALLERGIES: No Known Drug Allergies (NKDA) ENVIRONMENTAL ALLERGIES: - Substance Allergies None Known - Other Allergies None Known NURSING: - Shower allowing shower PRECAUTIONS: - Fall Precaution SAFTY AND FALL ACTIVITIES OOB only with supervision THERAPIES: - Dietary and Nutrition Adequate Nutrition. Nutritional Education. Nutritional Supplements. - Occupational Therapy Cognitive Retraining. Visual Perceptual Training. ADL Training. Adaptive Equipment. Evaluate and Glenny t. Safety Awareness. Transfer Training. Patient/Family Education. - Speech Therapy Cognitive Training. Expressive Language Skills. Memory Strategies. Receptive Language Skills. Speech Intelligibility Training. Evaluate and Treat. - Physical Therapy Mobility Training. Gait Training. Safety Awareness. Transfer Training. Balance Training. Evaluate and Treat. PHYSICAL EXAM - Gen Alert and awake Lying in bed No apparent distress Oriented to: person, time, and place - Skin Surgical sites on left and right legs shows good hemostasis. Mild to moderate size blisters on medial left and right thighs. No abnormalities - Eyes No abnormalities - ENMT No abnormalities - Neck No abnormalities - CVS RRR - Chest Chest incision is healing with good hemostasis. - Resp No wheezing - Abd Soft - GI nondistended Deferred - No abnormalities - Ext Moderate edema in both lower extremities. - MSK 4/5 weakness in both lower extremities. - Neuro No focal deficits - Psych Mild anxiety. ASSESSMENT: Pt. is a 80 yo Right-handed female.On 04/06/2021 she was admitted to [facility] with diagnosis ISCHEMI C CARDIOMYOPATHY CABG X4.Her impairment category is Cardiac 09 - Cardiac Disorders (09).Pre-morbidly , Pt. was independent/mod-I in Locomotion, Safety Awareness, Social Cognition, and Balance; and she h ad good Sphincter Control, Self-Care, Communication, and Endurance.Currently, she has deficits of Loc omotion, Safety Awareness, Social Cognition, Balance, Transfers Control, Sphincter Control, Self-Care , Communication, and Endurance.Pt. is now referred to [facility] for acute in- patient rehabilitation in order to maximize patient's functional independence in activities of daily living, strength, ROM, and mobility.- Rehab Goal Patient has realistic goal of being discharged at assistance level 7-Ind to reside at Home with Pt s elf. MDM/PLAN: - Physical Therapy Gait dysfunction - to improve, our physical therapists will perform initial evaluation of pt's statu s upon admission and devise an individualized program for Gait Training, and Wheel Chair mobility Inability to transfer - to improve, our physical therapists will perform initial evaluation of pt's status upon admission and devise an individualized program for Bed mobility Need for home safety evaluation - to improve, our physical therapists will perform initial evaluatio n of pt's status upon admission and devise an individualized program for Home Evaluation Need in caregiver upon discharge - to improve, our physical therapists will perform initial evaluati on of pt's status upon admission and devise an individualized program for Caregiver Training New precaution - to improve, our physical therapists will perform initial evaluation of pt's status upon admission and devise an individualized program for Patient precaution education Edema - to improve, our physical therapists will perform initial evaluation of pt's status upon admi ssion and devise an individualized program for Elevation Training, and Lymphedema Therapy Poor balance - to improve, our physical therapists will perform initial evaluation of pt's status up on admission and devise an individualized program for Balance Training Poor endurance - to improve, our physical therapists will perform initial evaluation of pt's status upon admission and devise an individualized program for Endurance Training Weakness - to improve, our physical therapists will perform initial evaluation of pt's status upon a dmission and devise an individualized program for Aquatic Therapy, Neuromuscular Reeducation, and Str engthening Achieving independence - to improve, our physical therapists will perform initial evaluation of pt's status upon admission and devise an individualized program for Community Reintegration Activities - Occupational Therapy ADL deficits - to improve, our occupation therapists will perform initial evaluation of pt's status upon admission and devise an individualized program for Bathing, Bed mobility, Community Reintegratio n, Cooking, Dressing, Eating, Fine Motor Skills, Grooming, Homemaking, Kitchen Mobility, Laundry, Pat ient Education, Safety Awareness, Splinting - Positioning, Transfers(Toilet, Tub, Shower), and Wheel Chair Management Cognitive deficits - to improve, our occupation therapists will perform initial evaluation of pt's s tatus upon admission and devise an individualized program for Cognition - orientation Need for cattle care worker - to improve, our occupation therapists will perform initial evaluation of pt's status upon admission and devise an individualized program for Caregiver Training Weakness - to improve, our occupation therapists will perform initial evaluation of pt's status upon admission and devise an individualized program for Aquatic Therapy, Balance, Endurance, UE ROM, and UE strengthening - Other See attached MAR (Medication Administration Record) - Diet Type Continue Regular - Diet - Liquid Texture Continue Regular - Tube Feed Continue N/A - Fall Precaution SAFTY AND FALL - Diet - Solid Texture Continue Regular - Shower allowing shower FUNCTIONAL STATUS: UPDATED AT WEEKLY TEAM CONFERENCE - Bladder Same accident frequency: 7-Ind - No accidents in the past 7 days - Bowel Same accident frequency: 7-Ind - No accidents in the past 7 days - Walking Same score based on distance walked: 0(N/A) Same score based on distance walked: 1(<=50ft) - Wheelchair Same score based on distance traveled: 0(N/A) FUNCTIONAL STATUS: - Self-Care A. Eating Ind D. Dressing - Upper sup E. Dressing - Lower [place] F. Toileting [place] - Sphincter Control G. Bladder control Yadira H. Bowel control Yadira - Transfers Control K. Tub/Shower modA - Locomotion L. Walk/Wheelchair (B) maxA M. Stairs maxA - Communication N. Comprehension (B) Yadira O. Expression (B) Yadira - Social Cognition P. Social Interaction Yadira Q. Problem Solving Yadira R. Memory Yadira - Endurance Fair - Balance Fair - Safety Awareness Fair QI SCORES: - Self-Care A. Eating 03-Partial/moderate assistance B. Oral hygiene 03-Partial/moderate assistance C. Toileting hygiene 03-Partial/moderate assistance E. Shower/bathe self 03-Partial/moderate assistance F. Upper body dressing 03-Partial/moderate assistance G. Lower body dressing 03-Partial/moderate assistance H. Putting on/taking off footwear 88-Not attempted due to medical condition or safety concerns - Mobility A. Roll left and right 04-Supervision or touching assistance B. Sit to lying 03-Partial/moderate assistance C. Lying to sitting on side of bed 03-Partial/moderate assistance D. Sit to stand 03-Partial/moderate assistance E. Chair/[id number] transfer 03-Partial/moderate assistance F. Toilet transfer 03-Partial/moderate assistance G. Car transfer 88-Not attempted due to medical condition or safety concerns I. Walk 10 feet 03-Partial/moderate assistance J. Walk 50 feet with two turns 88-Not attempted due to medical condition or safety concerns K. Walk 150 feet 88-Not attempted due to medical condition or safety concerns L. Walking 10 feet on uneven surfaces 88-Not attempted due to medical condition or safety concerns M. 1 step (curb) 88-Not attempted due to medical condition or safety concerns N. 4 steps 88-Not attempted due to medical condition or safety concerns O. 12 steps 88-Not attempted due to medical condition or safety concerns P. Picking up object 88-Not attempted due to medical condition or safety concerns R. Wheel 50 feet with two turns 88-Not attempted due to medical condition or safety concerns S. Wheel 150 feet 88-Not attempted due to medical condition or safety concerns - Bladder and Bowel Bladder continence Bowel continence - Endurance Fair - Balance Fair - Safety Awareness Fair CURRENT FUNC. DEFICITS: Self-Care, Mobility, Endurance, Balance, and Safety Awareness SIGNATURE PANEL: (LEAF STRIPPER)
[2021-04-20] MEDS: DOCUSATE NA/SENNA CONC 1 TAB PO PRN (19:38)
[2021-04-20] MEDS: ATORVASTATIN 40 MG TAB PO SCH (19:38)
[2021-04-20] MEDS: levoFLOXacin 250 MG TAB PO SCH (19:38)
[2021-04-20] MEDS: SODIUM CHLORIDE 0.9% 10ML INJ IV SCH (19:38)
[2021-04-21] MEDS: IPRATROPIUM BROM 0.5MG/2.5ML NEB SCH ×4 (01:09→20:30)
--- NOTE | 2021-04-21 03:41 | PN ---
Date of Progress Note: 04/20/2021 Chief Complaint: End-stage renal disease. History Of Present Illness: The patient is admitted to rehab floor. She is a 80-year-old woman with multiple medical problems. Recently, she was hospitalized at [facility] for COVID pneumonia and respiratory failure. She has coronary artery disease and underwent coronary artery bypass graft. She has pacemaker. The patient is undergoing hemodialysis and recently she was treated with peritoneal dialysis. During this admission she requested to resume hemodialysis for temporary treatment due to the fact that PT has not controlled fluid overload and azotemia was elevated as well. I discussed with the patient possibility to switch to hemodialysis due to non efficient treatment for fluid overload and control of congestive heart failure. The patient has not made a decision. She has a temporary dialysis catheter, which we will place on April 22. Review of Systems: Denies complaints. Denies fever and chills. Physical Examination: Lungs: Clear to auscultation bilaterally. Heart: S1, S2. Abdomen: Soft, benign. Extremities: Slight edema. Impression And Plan: 1. End-stage renal disease. The patient will have daily hemodialysis with ultrafiltration until obtain metabolic clearance to control azotemia. 2. Anemia due to chronic kidney disease. Continue STEPHANI. 3. Severe deconditioning. Continue rehab. The patient may need cardiac evaluation as well. 4. Congestive heart failure with fluid overload. Continue low-sodium diet, p.o. fluid restriction, and adjust ultrafiltration with dialysis to treat fluid overload. TERRY/JENSEN Voice ID: [id number] Report ID: [id number] SANDRA
[2021-04-21 04:41] LABS: Absolute Lymphocytes (CBC) 0.5 K/uL (0.7-4.9); Hematocrit 24.2 % (36.0-45.0); Lymphocytes % 5.7 % (15.3-44.8); MPV 7.1 fL (7.6-11.3); RBC Red Blood Cell Count 2.65 M/uL (3.86-4.86)
[2021-04-21 04:47] LABS: Potassium 4.6 mmol/L (3.5-5.1)
[2021-04-21] MEDS: PANTOPRAZOLE 40MG TABLET PO SCH (05:02)
[2021-04-21] MEDS: carvediloL 3.125 MG TAB PO SCH ×2 (05:03→18:23)
[2021-04-21] MEDS: INSULIN -REGULAR HUMAN 50 UNIT/0.5 ML ML SQ SCH ×4 (07:30→20:09)
[2021-04-21] MEDS: FE SULF/FA/VIT B COMP & C TAB PO SCH (08:27)
[2021-04-21] MEDS: MIDODRINE HCL 5 MG TABLET PO SCH ×2 (08:27→20:09)
[2021-04-21] MEDS: VITAMIN B COMPLEX 1 CAP PO SCH (08:28)
[2021-04-21] MEDS: POLYETHYL GLY 3350 17 GM/DOSE PO SCH (08:28)
[2021-04-21] MEDS: ASCORBIC ACID 500 MG TABLET PO SCH (08:28)
[2021-04-21] MEDS: CRANBERRY FRUIT EXTRACT 400 MG CAP PO SCH ×2 (08:28→20:09)
[2021-04-21] MEDS: CALCIUM ACETATE 667 MG TAB PO SCH ×3 (08:29→18:16)
[2021-04-21] MEDS: NEPRO SHAKE 237 ML CAN PO SCH ×3 (08:29→18:17)
[2021-04-21] MEDS: CLOPIDOGREL 75 MG TABLET PO SCH (08:29)
[2021-04-21] MEDS: ZINC SULFATE 220 MG CAP PO SCH (08:29)
[2021-04-21] MEDS: ASPIRIN 81 MG CHEWABLE TABLET PO SCH (08:29)
[2021-04-21] MEDS: CALCITROL 0.25 MCG CAP PO SCH (08:29)
[2021-04-21] MEDS: FERROUS SULFATE 325 MG TAB PO SCH (08:29)
[2021-04-21] MEDS: INSULIN GLARGINE 100 UNIT/ML SQ SCH (08:58)
[2021-04-21] MEDS: INSULIN LISPRO 100 UNIT/1 ML SQ SCH ×3 (08:58→18:16)
[2021-04-21] MEDS: SODIUM CHLORIDE 0.9% 10ML INJ IV SCH ×2 (09:00→20:09)
[2021-04-21] MEDS ORDERED: DOCUSATE NA 100 MG CAP PO PRN (09:02)
[2021-04-21] MEDS: HEPARIN 5000 UNIT/ML 1 ML VIAL SQ SCH ×2 (09:22→18:19)
--- NOTE | 2021-04-21 13:24 | P.PN ---
Subjective Date of Service: 04/21/21 Subjective: Other (Received HD today.) Physical Examination - Vital Signs Temperature: 97 F Blood Pressure: 108/68 Pulse: 82 Respirations: 18 Pulse Ox (%): 100 - Physical Exam General: Other (appears as her stated age) HEENT: Atraumatic, Normocephalic Neck: Supple Respiratory: Other (symmetric chest expansion) Cardiovascular: No rubs, No murmurs Gastrointestinal: Soft and benign, Non-distended, Other (+PD catheter) Musculoskeletal: No clubbing Integumentary: No warmth Neurological: Normal speech, Normal tone Urinary: Other (no bladder distention) External genitalia: Deferred Rectal: Deferred - Studies Laboratory Data (last 24 hrs) 04/21/21 04:19: Sodium 134 L, Potassium 4.6, BUN 44 H, Creatinine 2.81 H, Glucose 167 H 04/21/21 04:19: WBC 8.60, Hgb 8.3 L, Hct 24.2 L, Plt Count 192 Assessment And Plan - Plan 1. End-stage renal disease. Previously on PD. HD daily x 3, 3rd day today received to optimize volume and metabolic clearance. The patient is considering to resume peritoneal dialysis when fluid overload is controlled. Renal vit po daily. Monitor renal panel. 2. Anemia due to chronic kidney disease. Continue STEPHANI qTTS 3. Severe deconditioning. Continue physical rehab. The patient may need cardiac evaluation as well. 4. Congestive heart failure with fluid overload. HD as above. 5. Renal osteodystrophy. Monitor Ca & Phos.
[2021-04-21] MEDS ORDERED: POLYETHYL GLY 3350 17 GM/DOSE PO PRN (13:50)
[2021-04-21] MEDS: EPOETIN 4,000 UNIT/ML VIAL IV SCH (16:30)
--- NOTE | 2021-04-21 17:32 | R.PN ---
PROGRESS NOTES ENCOUNTER DATE AND TIME: 04/21/2021 17:24 (STADIUM MANAGER) NAME NOEL REAL DATE OF : 1940 DATE OF ADMISSION: 04/16/2021 16:24 (STADIUM MANAGER) ISCHEMIC CARDIOMYOPATHY CABG [id number] COMPLAINT: Cardiac debility s/p 4 vessel CABG. SUBJECTIVE: Pt denied any depression. Pt denied any Shortness of Breath. Cardiac debility, S/P 4 vessel CABG. WBC 8.6, Hgb 8.3. Shaper And Presser 2.81, Na 134, glucose 167 to 285. UA: 1+ esterase, WBC 10-20, bacteria 20-50. Renal service started HD after a port was placed by general surgery. Repeat chest x-ray 04-20-21 shows mild interstitial pulmonary edema. No changes from interval exam. Ambulated 42' using a rolling walker and contact guard assistance. Self-propelled wheelchair 100' wi th contact guard assistance. VITAL SIGNS Temperature: 97 F Resp: 16 Pulse: 82 SBP/DBP: 108/68 MEDICATION ALLERGIES: No Known Drug Allergies (NKDA) ENVIRONMENTAL ALLERGIES: - Substance Allergies None Known - Other Allergies None Known NURSING: - Shower allowing shower PRECAUTIONS: - Fall Precaution SAFTY AND FALL ACTIVITIES OOB only with supervision THERAPIES: - Dietary and Nutrition Adequate Nutrition. Nutritional Education. Nutritional Supplements. - Occupational Therapy Cognitive Retraining. Visual Perceptual Training. ADL Training. Adaptive Equipment. Evaluate and Glenny t. Safety Awareness. Transfer Training. Patient/Family Education. - Speech Therapy Cognitive Training. Expressive Language Skills. Memory Strategies. Receptive Language Skills. Speech Intelligibility Training. Evaluate and Treat. - Physical Therapy Mobility Training. Gait Training. Safety Awareness. Transfer Training. Balance Training. Evaluate and Treat. PHYSICAL EXAM - Gen Alert and awake Lying in bed No apparent distress Oriented to: person, time, and place - Skin Surgical sites on left and right legs shows good hemostasis. Mild to moderate size blisters on medial left and right thighs. No abnormalities - Eyes No abnormalities - ENMT No abnormalities - Neck No abnormalities - CVS RRR - Chest Chest incision is healing with good hemostasis. - Resp No wheezing - Abd Soft - GI nondistended Deferred - No abnormalities - Ext Moderate edema in both lower extremities. - MSK 4/5 weakness in both lower extremities. - Neuro No focal deficits - Psych Mild anxiety. ASSESSMENT: Pt. is a 80 yo Right-handed female.On 04/06/2021 she was admitted to [facility] with diagnosis ISCHEMI C CARDIOMYOPATHY CABG X4.Her impairment category is Cardiac 09 - Cardiac Disorders (09).Pre-morbidly , Pt. was independent/mod-I in Locomotion, Safety Awareness, Social Cognition, and Balance; and she h ad good Sphincter Control, Self-Care, Communication, and Endurance.Currently, she has deficits of Loc omotion, Safety Awareness, Social Cognition, Balance, Transfers Control, Sphincter Control, Self-Care , Communication, and Endurance.Pt. is now referred to [facility] for acute in- patient rehabilitation in order to maximize patient's functional independence in activities of daily living, strength, ROM, and mobility.- Rehab Goal Patient has realistic goal of being discharged at assistance level 7-Ind to reside at Home with Pt s elf. MDM/PLAN: - Physical Therapy Gait dysfunction - to improve, our physical therapists will perform initial evaluation of pt's statu s upon admission and devise an individualized program for Gait Training, and Wheel Chair mobility Inability to transfer - to improve, our physical therapists will perform initial evaluation of pt's status upon admission and devise an individualized program for Bed mobility Need for home safety evaluation - to improve, our physical therapists will perform initial evaluatio n of pt's status upon admission and devise an individualized program for Home Evaluation Need in caregiver upon discharge - to improve, our physical therapists will perform initial evaluati on of pt's status upon admission and devise an individualized program for Caregiver Training New precaution - to improve, our physical therapists will perform initial evaluation of pt's status upon admission and devise an individualized program for Patient precaution education Edema - to improve, our physical therapists will perform initial evaluation of pt's status upon admi ssion and devise an individualized program for Elevation Training, and Lymphedema Therapy Poor balance - to improve, our physical therapists will perform initial evaluation of pt's status up on admission and devise an individualized program for Balance Training Poor endurance - to improve, our physical therapists will perform initial evaluation of pt's status upon admission and devise an individualized program for Endurance Training Weakness - to improve, our physical therapists will perform initial evaluation of pt's status upon a dmission and devise an individualized program for Aquatic Therapy, Neuromuscular Reeducation, and Str engthening Achieving independence - to improve, our physical therapists will perform initial evaluation of pt's status upon admission and devise an individualized program for Community Reintegration Activities - Occupational Therapy ADL deficits - to improve, our occupation therapists will perform initial evaluation of pt's status upon admission and devise an individualized program for Bathing, Bed mobility, Community Reintegratio n, Cooking, Dressing, Eating, Fine Motor Skills, Grooming, Homemaking, Kitchen Mobility, Laundry, Pat ient Education, Safety Awareness, Splinting - Positioning, Transfers(Toilet, Tub, Shower), and Wheel Chair Management Cognitive deficits - to improve, our occupation therapists will perform initial evaluation of pt's s tatus upon admission and devise an individualized program for Cognition - orientation Need for career coordinator - to improve, our occupation therapists will perform initial evaluation of pt's status upon admission and devise an individualized program for Caregiver Training Weakness - to improve, our occupation therapists will perform initial evaluation of pt's status upon admission and devise an individualized program for Aquatic Therapy, Balance, Endurance, UE ROM, and UE strengthening - Other See attached MAR (Medication Administration Record) - Diet Type Continue Regular - Diet - Liquid Texture Continue Regular - Tube Feed Continue N/A - Fall Precaution SAFTY AND FALL - Diet - Solid Texture Continue Regular - Shower allowing shower FUNCTIONAL STATUS: UPDATED AT WEEKLY TEAM CONFERENCE - Bladder Same accident frequency: 7-Ind - No accidents in the past 7 days - Bowel Same accident frequency: 7-Ind - No accidents in the past 7 days - Walking Same score based on distance walked: 0(N/A) Same score based on distance walked: 1(<=50ft) - Wheelchair Same score based on distance traveled: 0(N/A) FUNCTIONAL STATUS: - Self-Care A. Eating Ind D. Dressing - Upper sup E. Dressing - [place] F. Toileting [place] - Sphincter Control G. Bladder control Yadira H. Bowel control Yadira - Transfers Control K. Tub/Shower modA - Locomotion L. Walk/Wheelchair (B) maxA M. Stairs maxA - Communication N. Comprehension (B) Yadira O. Expression (B) Yadira - Social Cognition P. Social Interaction Yadira Q. Problem Solving Yadira R. Memory Yadira - Endurance Fair - Balance Fair - Safety Awareness Fair QI SCORES: - Self-Care A. Eating 03-Partial/moderate assistance B. Oral hygiene 03-Partial/moderate assistance C. Toileting hygiene 03-Partial/moderate assistance E. Shower/bathe self 03-Partial/moderate assistance F. Upper body dressing 03-Partial/moderate assistance G. Lower body dressing 03-Partial/moderate assistance H. Putting on/taking off footwear 88-Not attempted due to medical condition or safety concerns - Mobility A. Roll left and right 04-Supervision or touching assistance B. Sit to lying 03-Partial/moderate assistance C. Lying to sitting on side of bed 03-Partial/moderate assistance D. Sit to stand 03-Partial/moderate assistance E. Chair/[id number] transfer 03-Partial/moderate assistance F. Toilet transfer 03-Partial/moderate assistance G. Car transfer 88-Not attempted due to medical condition or safety concerns I. Walk 10 feet 03-Partial/moderate assistance J. Walk 50 feet with two turns 88-Not attempted due to medical condition or safety concerns K. Walk 150 feet 88-Not attempted due to medical condition or safety concerns L. Walking 10 feet on uneven surfaces 88-Not attempted due to medical condition or safety concerns M. 1 step (curb) 88-Not attempted due to medical condition or safety concerns N. 4 steps 88-Not attempted due to medical condition or safety concerns O. 12 steps 88-Not attempted due to medical condition or safety concerns P. Picking up object 88-Not attempted due to medical condition or safety concerns R. Wheel 50 feet with two turns 88-Not attempted due to medical condition or safety concerns S. Wheel 150 feet 88-Not attempted due to medical condition or safety concerns - Bladder and Bowel Bladder continence Bowel continence - Endurance Fair - Balance Fair - Safety Awareness Fair [facility] DEFICITS: Self-Care, Mobility, Endurance, Balance, and Safety Awareness SIGNATURE PANEL: (STADIUM MANAGER)
[2021-04-21] MEDS: DOCUSATE NA 100 MG CAP PO SCH ×2 (20:00→20:09)
[2021-04-21] MEDS: ATORVASTATIN 40 MG TAB PO SCH (20:09)
[2021-04-21] MEDS: MELATONIN 3 MG TABLET PO PRN (20:09)
[2021-04-22] MEDS: IPRATROPIUM BROM 0.5MG/2.5ML NEB SCH ×2 (01:42→08:08)
[2021-04-22] MEDS: PANTOPRAZOLE 40MG TABLET PO SCH (05:09)
[2021-04-22] MEDS: carvediloL 3.125 MG TAB PO SCH ×2 (05:09→17:06)
[2021-04-22 05:14] LABS: Absolute Lymphocytes (CBC) 0.5 K/uL (0.7-4.9); Hematocrit 23.7 % (36.0-45.0); MPV 6.9 fL (7.6-11.3); RBC Red Blood Cell Count 2.61 M/uL (3.86-4.86)
[2021-04-22 05:16] LABS: Albumin 2.1 g/dL (3.4-5.0)
[2021-04-22] MEDS: HEPARIN 5000 UNIT/ML 1 ML VIAL SQ SCH ×2 (06:17→18:09)
[2021-04-22] MEDS: INSULIN -REGULAR HUMAN 50 UNIT/0.5 ML ML SQ SCH ×4 (07:30→20:07)
[2021-04-22] MEDS: INSULIN LISPRO 100 UNIT/1 ML SQ SCH ×3 (08:24→17:05)
[2021-04-22] MEDS: ASPIRIN 81 MG CHEWABLE TABLET PO SCH (08:24)
[2021-04-22] MEDS: INSULIN GLARGINE 100 UNIT/ML SQ SCH (08:24)
[2021-04-22] MEDS: FERROUS SULFATE 325 MG TAB PO SCH (08:25)
[2021-04-22] MEDS: DOCUSATE NA 100 MG CAP PO SCH ×2 (08:25→19:23)
[2021-04-22] MEDS: VITAMIN B COMPLEX 1 CAP PO SCH (08:25)
[2021-04-22] MEDS: CALCITROL 0.25 MCG CAP PO SCH (08:25)
[2021-04-22] MEDS: CRANBERRY FRUIT EXTRACT 400 MG CAP PO SCH ×2 (08:25→19:24)
[2021-04-22] MEDS: CLOPIDOGREL 75 MG TABLET PO SCH (08:25)
[2021-04-22] MEDS: FE SULF/FA/VIT B COMP & C TAB PO SCH (08:26)
[2021-04-22] MEDS: NEPRO SHAKE 237 ML CAN PO SCH ×3 (08:26→17:05)
[2021-04-22] MEDS: MIDODRINE HCL 5 MG TABLET PO SCH ×2 (08:26→19:27)
[2021-04-22] MEDS: CALCIUM ACETATE 667 MG TAB PO SCH (08:26)
[2021-04-22] MEDS: ZINC SULFATE 220 MG CAP PO SCH (08:26)
[2021-04-22] MEDS: ASCORBIC ACID 500 MG TABLET PO SCH (08:28)
[2021-04-22] MEDS: SODIUM CHLORIDE 0.9% 10ML INJ IV SCH ×2 (09:06→19:25)
[2021-04-22] MEDS: ONDANSETRON 4 MG (ODT) TAB PO PRN (11:46)
--- NOTE | 2021-04-22 11:50 | PN ---
Date of Progress Note: 04/22/2021 Subjective: The patient was admitted for rehabilitation. The patient is doing well. Still has significant leg swelling. The patient had good urine output. The patient has been started on HD for more metabolic clearance. Physical Examination: Vital Signs: Blood pressure 156/73, pulse of 70, afebrile. Had dialysis. Yesterday, we removed 2 L. Chest: Crackles bilateral. Heart: S1, S2. Systolic murmur. Abdomen: Soft, nontender. Extremity: +2 edema. Neurologic: Alert. No focality. On wheelchair. Laboratory Data: WBC 8.6, H and H 8.2/23.7. Sodium 136, potassium 4, bicarb 30, BUN 36, creatinine 2.3, calcium 8, phosphorus 2, albumin 2.1. Current Medications: The patient on include midodrine 5 mg b.i.d., Levaquin 250 every other day, Plavix, Epogen 4000 every dialysis, atorvastatin, carvedilol 3.125 b.i.d., Tylenol, PhosLo with each meal, pantoprazole, insulin, docusate, cranberry fluid, melatonin, hydrocodone, calcitriol, B complex. Assessment And Plan: 1. End-stage renal disease, still on the over volume side. I am going to go ahead and do another dialysis tomorrow and we will try to challenge the patient. We will follow up. 2. Anemia of chronic kidney disease. The patient is on STEPHANI. We will continue. 3. Secondary hyperparathyroidism. Discontinue PhosLo. I am going to go ahead and send for PTH and we will follow up phosphorus level. 4. Anasarca secondary to cardiorenal. Continue to optimize fluid, start the patient on Lasix, and we will follow up the patient. I am going to send for TSH. 5. Anemia possible secondary to chronic kidney disease. Continue STEPHANI. We will send for iron study and we will follow up. 6. Deconditioning. Continue PT/OT. time spend exam the patient face to face reviewing the data laboratory and radiology placing order discussing the case with the patient discussing the case with the steam trap worker including the nurse and charge nurse discussing the case with our subspecialty team including hospitalist 35-minute MARILU/JENSEN Voice ID: [id number] Report ID: [id number] MTDD
[2021-04-22] MEDS: FUROSEMIDE 40 MG TABLET PO SCH (12:54)
[2021-04-22] MEDS: IPRATROPIUM BROM 0.5MG/2.5ML NEB PRN ×2 (17:40→19:39)
[2021-04-22] MEDS: levoFLOXacin 250 MG TAB PO SCH (19:24)
[2021-04-22] MEDS: ATORVASTATIN 40 MG TAB PO SCH (19:24)
--- NOTE | 2021-04-22 19:30 | R.PN ---
PROGRESS NOTES ENCOUNTER DATE AND TIME: 04/22/2021 19:24 (GEAR DESIGN ENGINEER) NAME NOEL REAL DATE OF : 1940 DATE OF ADMISSION: 04/16/2021 16:24 (GEAR DESIGN ENGINEER) ISCHEMIC CARDIOMYOPATHY CABG [id number] COMPLAINT: Cardiac debility s/p 4 vessel CABG. SUBJECTIVE: Pt denied any depression. Pt denied any Shortness of Breath. Cardiac debility, S/P 4 vessel CABG. WBC 8.6, Hgb 8.2. [employer] 2.81, Na 134, glucose 156 to 178. UA: 1+ esterase, WBC 10-20, bacteria 20-50. Renal service started HD after a port was placed by general surgery. Repeat chest x-ray 04-20-21 shows mild interstitial pulmonary edema. No changes from interval exam. Ambulated 70' using a rolling walker and standby assistance. Self-propelled wheelchair 114' with con tact guard assistance. VITAL SIGNS Temperature: 97.4 F Resp: 16 Pulse: 79 SBP/DBP: 125/68 MEDICATION ALLERGIES: No Known Drug Allergies (NKDA) ENVIRONMENTAL ALLERGIES: - Substance Allergies None Known - Other Allergies None Known NURSING: - Shower allowing shower PRECAUTIONS: - Fall Precaution SAFTY AND FALL ACTIVITIES OOB only with supervision THERAPIES: - Dietary and Nutrition Adequate Nutrition. Nutritional Education. Nutritional Supplements. - Occupational Therapy Cognitive Retraining. Visual Perceptual Training. ADL Training. Adaptive Equipment. Evaluate and Glenny t. Safety Awareness. Transfer Training. Patient/Family Education. - Speech Therapy Cognitive Training. Expressive Language Skills. Memory Strategies. Receptive Language Skills. Speech Intelligibility Training. Evaluate and Treat. - Physical Therapy Mobility Training. Gait Training. Safety Awareness. Transfer Training. Balance Training. Evaluate and Treat. PHYSICAL EXAM - Gen Alert and awake Lying in bed No apparent distress Oriented to: person, time, and place - Skin Surgical sites on left and right legs shows good hemostasis. Mild to moderate size blisters on medial left and right thighs. No abnormalities - Eyes No abnormalities - ENMT No abnormalities - Neck No abnormalities - CVS RRR - Chest Chest incision is healing with good hemostasis. - Resp No wheezing - Abd Soft - GI nondistended Deferred - No abnormalities - Ext Moderate edema in both lower extremities. - MSK 4/5 weakness in both lower extremities. - Neuro No focal deficits - Psych Mild anxiety. ASSESSMENT: Pt. is a 80 yo Right-handed female.On 04/06/2021 she was admitted to [facility] with diagnosis ISCHEMI C CARDIOMYOPATHY CABG X4.Her impairment category is Cardiac 09 - Cardiac Disorders (09).Pre-morbidly , Pt. was independent/mod-I in Locomotion, Safety Awareness, Social Cognition, and Balance; and she h ad good Sphincter Control, Self-Care, Communication, and Endurance.Currently, she has deficits of Loc omotion, Safety Awareness, Social Cognition, Balance, Transfers Control, Sphincter Control, Self-Care , Communication, and Endurance.Pt. is now referred to [facility] for acute in- patient rehabilitation in order to maximize patient's functional independence in activities of daily living, strength, ROM, and mobility.- Rehab Goal Patient has realistic goal of being discharged at assistance level 7-Ind to reside at Home with Pt s elf. MDM/PLAN: - Physical Therapy Gait dysfunction - to improve, our physical therapists will perform initial evaluation of pt's statu s upon admission and devise an individualized program for Gait Training, and Wheel Chair mobility Inability to transfer - to improve, our physical therapists will perform initial evaluation of pt's status upon admission and devise an individualized program for Bed mobility Need for home safety evaluation - to improve, our physical therapists will perform initial evaluatio n of pt's status upon admission and devise an individualized program for Home Evaluation Need in caregiver upon discharge - to improve, our physical therapists will perform initial evaluati on of pt's status upon admission and devise an individualized program for Caregiver Training New precaution - to improve, our physical therapists will perform initial evaluation of pt's status upon admission and devise an individualized program for Patient precaution education Edema - to improve, our physical therapists will perform initial evaluation of pt's status upon admi ssion and devise an individualized program for Elevation Training, and Lymphedema Therapy Poor balance - to improve, our physical therapists will perform initial evaluation of pt's status up on admission and devise an individualized program for Balance Training Poor endurance - to improve, our physical therapists will perform initial evaluation of pt's status upon admission and devise an individualized program for Endurance Training Weakness - to improve, our physical therapists will perform initial evaluation of pt's status upon a dmission and devise an individualized program for Aquatic Therapy, Neuromuscular Reeducation, and Str engthening Achieving independence - to improve, our physical therapists will perform initial evaluation of pt's status upon admission and devise an individualized program for Community Reintegration Activities - Occupational Therapy ADL deficits - to improve, our occupation therapists will perform initial evaluation of pt's status upon admission and devise an individualized program for Bathing, Bed mobility, Community Reintegratio n, Cooking, Dressing, Eating, Fine Motor Skills, Grooming, Homemaking, Kitchen Mobility, Laundry, Pat ient Education, Safety Awareness, Splinting - Positioning, Transfers(Toilet, Tub, Shower), and Wheel Chair Management Cognitive deficits - to improve, our occupation therapists will perform initial evaluation of pt's s tatus upon admission and devise an individualized program for Cognition - orientation Need for critical care nurse specialist - to improve, our occupation therapists will perform initial evaluation of pt's status upon admission and devise an individualized program for Caregiver Training Weakness - to improve, our occupation therapists will perform initial evaluation of pt's status upon admission and devise an individualized program for Aquatic Therapy, Balance, Endurance, UE ROM, and UE strengthening - Other See attached MAR (Medication Administration Record) - Diet Type Continue Regular - Diet - Liquid Texture Continue Regular - Tube Feed Continue N/A - Fall Precaution SAFTY AND FALL - Diet - Solid Texture Continue Regular - Shower allowing shower FUNCTIONAL STATUS: UPDATED AT WEEKLY TEAM CONFERENCE - Bladder Same accident frequency: 7-Ind - No accidents in the past 7 days - Bowel Same accident frequency: 7-Ind - No accidents in the past 7 days - Walking Same score based on distance walked: 0(N/A) Same score based on distance walked: 1(<=50ft) - Wheelchair Same score based on distance traveled: 0(N/A) FUNCTIONAL STATUS: - Self-Care A. Eating Ind D. Dressing - Upper sup E. Dressing - [place] F. Toileting [place] - Sphincter Control G. Bladder control Yadira H. Bowel control Yadira - Transfers Control K. Tub/Shower modA - Locomotion L. Walk/Wheelchair (B) maxA M. Stairs maxA - Communication N. Comprehension (B) Yadira O. Expression (B) Yadira - Social Cognition P. Social Interaction Yadira Q. Problem Solving Yadira R. Memory Yadira - Endurance Fair - Balance Fair - Safety Awareness Fair QI SCORES: - Self-Care A. Eating 03-Partial/moderate assistance B. Oral hygiene 03-Partial/moderate assistance C. Toileting hygiene 03-Partial/moderate assistance E. Shower/bathe self 03-Partial/moderate assistance F. Upper body dressing 03-Partial/moderate assistance G. Lower body dressing 03-Partial/moderate assistance H. Putting on/taking off footwear 88-Not attempted due to medical condition or safety concerns - Mobility A. Roll left and right 04-Supervision or touching assistance B. Sit to lying 03-Partial/moderate assistance C. Lying to sitting on side of bed 03-Partial/moderate assistance D. Sit to stand 03-Partial/moderate assistance E. Chair/mph-rc-vqvah transfer 03-Partial/moderate assistance F. Toilet transfer 03-Partial/moderate assistance G. Car transfer 88-Not attempted due to medical condition or safety concerns I. Walk 10 feet 03-Partial/moderate assistance J. Walk 50 feet with two turns 88-Not attempted due to medical condition or safety concerns K. Walk 150 feet 88-Not attempted due to medical condition or safety concerns L. Walking 10 feet on uneven surfaces 88-Not attempted due to medical condition or safety concerns M. 1 step (curb) 88-Not attempted due to medical condition or safety concerns N. 4 steps 88-Not attempted due to medical condition or safety concerns O. 12 steps 88-Not attempted due to medical condition or safety concerns P. Picking up object 88-Not attempted due to medical condition or safety concerns R. Wheel 50 feet with two turns 88-Not attempted due to medical condition or safety concerns S. Wheel 150 feet 88-Not attempted due to medical condition or safety concerns - Bladder and Bowel Bladder continence Bowel continence - Endurance Fair - Balance Fair - Safety Awareness Fair CURRENT [facility]. DEFICITS: Self-Care, Mobility, Endurance, Balance, and Safety Awareness SIGNATURE PANEL: (GEAR DESIGN ENGINEER)
[2021-04-23] MEDS: PANTOPRAZOLE 40MG TABLET PO SCH (05:10)
[2021-04-23] MEDS: carvediloL 3.125 MG TAB PO SCH ×2 (05:10→17:33)
[2021-04-23] MEDS: HEPARIN 5000 UNIT/ML 1 ML VIAL SQ SCH ×2 (06:19→18:26)
[2021-04-23 06:46] LABS: HBsAG Nonreactive (Nonreactive)
[2021-04-23 06:50] LABS: Hematocrit 24.1 % (36.0-45.0); RBC Red Blood Cell Count 2.59 M/uL (3.86-4.86)
[2021-04-23 06:51] LABS: Absolute Lymphocytes (CBC) 0.5 K/uL (0.7-4.9); Lymphocytes % 5.9 % (15.3-44.8); MPV 6.9 fL (7.6-11.3)
[2021-04-23 07:24] LABS: Albumin 2.3 g/dL (3.4-5.0); Ferritin 1068.7 ng/mL (8-388); Folic Acid, (Folate) 15.1 ng/mL (3.1-17.5); Magnesium 2.5 mg/dL (1.8-2.4); Phosphorus 3.5 mg/dL (2.5-4.9); Potassium 4.6 mmol/L (3.5-5.1); Prealbumin 16.2 mg/dL (20-40); Thyroid Stimulating Hormone 6.37 uIU/mL (0.360-3.740)
[2021-04-23] MEDS: INSULIN -REGULAR HUMAN 50 UNIT/0.5 ML ML SQ SCH ×4 (07:30→20:12)
[2021-04-23] MEDS: IPRATROPIUM BROM 0.5MG/2.5ML NEB PRN ×2 (07:46→15:07)
[2021-04-23] MEDS: INSULIN GLARGINE 100 UNIT/ML SQ SCH (08:07)
[2021-04-23] MEDS: INSULIN LISPRO 100 UNIT/1 ML SQ SCH ×3 (08:08→16:59)
[2021-04-23] MEDS: MIDODRINE HCL 5 MG TABLET PO SCH ×2 (08:09→20:11)
[2021-04-23] MEDS: ASCORBIC ACID 500 MG TABLET PO SCH (08:09)
[2021-04-23] MEDS: FE SULF/FA/VIT B COMP & C TAB PO SCH (08:10)
[2021-04-23] MEDS: ZINC SULFATE 220 MG CAP PO SCH (08:10)
[2021-04-23] MEDS: VITAMIN B COMPLEX 1 CAP PO SCH (08:10)
[2021-04-23] MEDS: CRANBERRY FRUIT EXTRACT 400 MG CAP PO SCH ×2 (08:10→20:11)
[2021-04-23] MEDS: ASPIRIN 81 MG CHEWABLE TABLET PO SCH (08:10)
[2021-04-23] MEDS: DOCUSATE NA 100 MG CAP PO SCH ×2 (08:10→20:11)
[2021-04-23] MEDS: FUROSEMIDE 40 MG TABLET PO SCH (08:11)
[2021-04-23] MEDS: FERROUS SULFATE 325 MG TAB PO SCH (08:11)
[2021-04-23] MEDS: CALCITROL 0.25 MCG CAP PO SCH (08:11)
[2021-04-23] MEDS: NEPRO SHAKE 237 ML CAN PO SCH ×3 (08:11→17:00)
[2021-04-23] MEDS: CLOPIDOGREL 75 MG TABLET PO SCH (08:11)
[2021-04-23] MEDS: SODIUM CHLORIDE 0.9% 10ML INJ IV SCH ×2 (08:12→20:11)
--- NOTE | 2021-04-23 11:48 | RAD REPORT ---
EXAM DESCRIPTION: RAD - Chest Single View - 04/23/2021 11:21 am CLINICAL HISTORY: COPD COMPARISON: Portable 04/19/2021 TECHNIQUE: AP portable chest image was obtained 04/23/2021 11:21 am . FINDINGS: Bilateral pleural effusions and bilateral lung base atelectasis present. Infiltrates could be masked. Right-sided double-lumen catheter is in place. Left-sided pacemaker is in place. Heart size is grossly normal with margins partially obscured by the lung base findings. Vasculature within normal limits. No pneumothorax. No acute bony abnormality seen. No acute aortic findings suspe cted. IMPRESSION: Right greater than left lung base opacification not substantially different from compari son. This could be atelectasis or infiltrate. Pleural effusions are likely.
--- NOTE | 2021-04-23 13:35 | PN ---
Date of Progress Note: 04/23/2021 Subjective: The patient was admitted with rehabilitation. The patient used to be on PD. The patien t was initiated on HD to establish better volume control. The patient interested to go back to PD on. Physical Examination: General: When I saw the patient; the patient is sitting in the chair. Vital Signs: Blood pressure 117/54, pulse of 61, afebrile. Chest: Decreased entry bilateral. Heart: S1, S2. Systolic murmur. Abdomen: Soft, nontender. PD catheter. Extremities: +2 edema. Neuro: Alert. No focality. On wheelchair. Laboratory Data: WBC 8.1, H and H 8.1/24.1. Sodium 133, potassium 4.6, bicarb 32, BUN 55, creatinin e 3.1, GFR of 14, calcium 8.8, phosphorus 3.5, magnesium 2.5, iron saturation 39. PTH 37. Current Medications: The patient on include; 1.Levaquin. 2.Aspirin. 3.Plavix. 4.Epogen. 5.Oral iron. 6.Multivitamin. 7.Carvedilol. 8.Atorvastatin. 9.Tylenol. 10.Lasix 80 daily. 11.Zinc sulfate. 12.Pantoprazole. Assessment And Plan: 1.End-stage renal disease, still on the over volume side. I am going to go ahead and do session of dialysis today and we will do another session also tomorrow sequential to establish better volume con trol. The patient upon discharge will be switched to PD. 2.Hypertension, currently blood pressure on the lower side. I am going to go ahead and continue on the midodrine. We will try to establish better volume control with daily dialysis. Continue Lasix a nd we will follow up. 3.Secondary hyperparathyroidism. Yesterday, we discontinued PhosLo. Phosphorus started trending up . We will monitor. 4.Anasarca secondary to cardiorenal. We will continue daily dialysis to establish better volume con trol. Hypothyroidism could be contributed partially. I am going to start the patient on low dose of levothyroxine and we will follow up. 5.Anemia secondary to chronic kidney disease. Continue STEPHANI. 6.Deconditioning. Continue PT/OT. MARILU/MODL Voice ID: [id number] Report ID: [id number]
--- NOTE | 2021-04-23 17:57 | R.PN ---
PROGRESS NOTES ENCOUNTER DATE AND TIME: 04/23/2021 17:51 (DIVER PUMPER) NAME NOEL REAL DATE OF : 1940 DATE OF ADMISSION: 04/16/2021 16:24 (DIVER PUMPER) ISCHEMIC CARDIOMYOPATHY CABG [id number] COMPLAINT: Cardiac debility s/p 4 vessel CABG. SUBJECTIVE: Pt denied any depression. Pt denied any Shortness of Breath. Cardiac debility, S/P 4 vessel CABG. WBC 8.1, Hgb 8.1. [employer] 3.17, Na 133, glucose 120 to 201. UA: 1+ esterase, WBC 10-20, bacteria 20-50. Renal service started HD after a port was placed by general surgery. Repeat chest x-ray 04-20-21 shows mild interstitial pulmonary edema. No changes from interval exam. Ambulated 70' using a rolling walker and standby assistance. Self-propelled wheelchair 100' with con tact guard assistance. PTH 37.8, TSH 6.37, free T4 1.26. Vitamin D panel is pending. 28 VITAL SIGNS Temperature: 97.5 F Resp: 16 Pulse: 77 standing SBP/DBP: 105/55 standing MEDICATION ALLERGIES: No Known Drug Allergies (NKDA) ENVIRONMENTAL ALLERGIES: - Substance Allergies None Known - Other Allergies None Known NURSING: - Shower allowing shower PRECAUTIONS: - Fall Precaution SAFTY AND FALL ACTIVITIES OOB only with supervision THERAPIES: - Dietary and Nutrition Adequate Nutrition. Nutritional Education. Nutritional Supplements. - Occupational Therapy Cognitive Retraining. Visual Perceptual Training. ADL Training. Adaptive Equipment. Evaluate and Glenny t. Safety Awareness. Transfer Training. Patient/Family Education. - Speech Therapy Cognitive Training. Expressive Language Skills. Memory Strategies. Receptive Language Skills. Speech Intelligibility Training. Evaluate and Treat. - Physical Therapy Mobility Training. Gait Training. Safety Awareness. Transfer Training. Balance Training. Evaluate and Treat. PHYSICAL EXAM - Gen Alert and awake Lying in bed No apparent distress Oriented to: person, time, and place - Skin Surgical sites on left and right legs shows good hemostasis. Mild to moderate size blisters on medial left and right thighs. No abnormalities - Eyes No abnormalities - ENMT No abnormalities - Neck No abnormalities - CVS RRR - Chest Chest incision is healing with good hemostasis. - Resp No wheezing - Abd Soft - GI nondistended Deferred - No abnormalities - Ext Moderate edema in both lower extremities. - MSK 4/5 weakness in both lower extremities. - Neuro No focal deficits - Psych Mild anxiety. ASSESSMENT: Pt. is a 80 yo Right-handed female.On 04/06/2021 she was admitted to [facility] with diagnosis ISCHEMI C CARDIOMYOPATHY CABG X4.Her impairment category is Cardiac 09 - Cardiac Disorders (09).Pre-morbidly , Pt. was independent/mod-I in Locomotion, Safety Awareness, Social Cognition, and Balance; and she h ad good Sphincter Control, Self-Care, Communication, and Endurance.Currently, she has deficits of Loc omotion, Safety Awareness, Social Cognition, Balance, Transfers Control, Sphincter Control, Self-Care , Communication, and Endurance.Pt. is now referred to [facility] for acute in- patient rehabilitation in order to maximize patient's functional independence in activities of daily living, strength, ROM, and mobility.- Rehab Goal Patient has realistic goal of being discharged at assistance level 7-Ind to reside at Home with Pt s elf. MDM/PLAN: - Physical Therapy Gait dysfunction - to improve, our physical therapists will perform initial evaluation of pt's statu s upon admission and devise an individualized program for Gait Training, and Wheel Chair mobility Inability to transfer - to improve, our physical therapists will perform initial evaluation of pt's status upon admission and devise an individualized program for Bed mobility Need for home safety evaluation - to improve, our physical therapists will perform initial evaluatio n of pt's status upon admission and devise an individualized program for Home Evaluation Need in caregiver upon discharge - to improve, our physical therapists will perform initial evaluati on of pt's status upon admission and devise an individualized program for Caregiver Training New precaution - to improve, our physical therapists will perform initial evaluation of pt's status upon admission and devise an individualized program for Patient precaution education Edema - to improve, our physical therapists will perform initial evaluation of pt's status upon admi ssion and devise an individualized program for Elevation Training, and Lymphedema Therapy Poor balance - to improve, our physical therapists will perform initial evaluation of pt's status up on admission and devise an individualized program for Balance Training Poor endurance - to improve, our physical therapists will perform initial evaluation of pt's status upon admission and devise an individualized program for Endurance Training Weakness - to improve, our physical therapists will perform initial evaluation of pt's status upon a dmission and devise an individualized program for Aquatic Therapy, Neuromuscular Reeducation, and Str engthening Achieving independence - to improve, our physical therapists will perform initial evaluation of pt's status upon admission and devise an individualized program for Community Reintegration Activities - Occupational Therapy ADL deficits - to improve, our occupation therapists will perform initial evaluation of pt's status upon admission and devise an individualized program for Bathing, Bed mobility, Community Reintegratio n, Cooking, Dressing, Eating, Fine Motor Skills, Grooming, Homemaking, Kitchen Mobility, Laundry, Pat ient Education, Safety Awareness, Splinting - Positioning, Transfers(Toilet, Tub, Shower), and Wheel Chair Management Cognitive deficits - to improve, our occupation therapists will perform initial evaluation of pt's s tatus upon admission and devise an individualized program for Cognition - orientation Need for transitional care manager - to improve, our occupation therapists will perform initial evaluation of pt's status upon admission and devise an individualized program for Caregiver Training Weakness - to improve, our occupation therapists will perform initial evaluation of pt's status upon admission and devise an individualized program for Aquatic Therapy, Balance, Endurance, UE ROM, and UE strengthening - Other See attached MAR (Medication Administration Record) - Diet Type Continue Regular - Diet - Liquid Texture Continue Regular - Tube Feed Continue N/A - Fall Precaution SAFTY AND FALL - Diet - Solid Texture Continue Regular - Shower allowing shower FUNCTIONAL STATUS: UPDATED AT WEEKLY TEAM CONFERENCE - Bladder Same accident frequency: 7-Ind - No accidents in the past 7 days - Bowel Same accident frequency: 7-Ind - No accidents in the past 7 days - Walking Same score based on distance walked: 0(N/A) Same score based on distance walked: 1(<=50ft) - Wheelchair Same score based on distance traveled: 0(N/A) FUNCTIONAL STATUS: - Self-Care A. Eating Ind D. Dressing - Upper sup E. Dressing - [place] F. Toileting [place] - Sphincter Control G. Bladder control Yadira H. Bowel control Yadira - Transfers Control K. Tub/Shower modA - Locomotion L. Walk/Wheelchair (B) maxA M. Stairs maxA - Communication N. Comprehension (B) Yadira O. Expression (B) Yadira - Social Cognition P. Social Interaction Yadira Q. Problem Solving Yadira R. Memory Yadira - Endurance Fair - Balance Fair - Safety Awareness Fair QI SCORES: - Self-Care A. Eating 03-Partial/moderate assistance B. Oral hygiene 03-Partial/moderate assistance C. Toileting hygiene 03-Partial/moderate assistance E. Shower/bathe self 03-Partial/moderate assistance F. Upper body dressing 03-Partial/moderate assistance G. Lower body dressing 03-Partial/moderate assistance H. Putting on/taking off footwear 88-Not attempted due to medical condition or safety concerns - Mobility A. Roll left and right 04-Supervision or touching assistance B. Sit to lying 03-Partial/moderate assistance C. Lying to sitting on side of bed 03-Partial/moderate assistance D. Sit to stand 03-Partial/moderate assistance E. Chair/iof-in-nmfft transfer 03-Partial/moderate assistance F. Toilet transfer 03-Partial/moderate assistance G. Car transfer 88-Not attempted due to medical condition or safety concerns I. Walk 10 feet 03-Partial/moderate assistance J. Walk 50 feet with two turns 88-Not attempted due to medical condition or safety concerns K. Walk 150 feet 88-Not attempted due to medical condition or safety concerns L. Walking 10 feet on uneven surfaces 88-Not attempted due to medical condition or safety concerns M. 1 step (curb) 88-Not attempted due to medical condition or safety concerns N. 4 steps 88-Not attempted due to medical condition or safety concerns O. 12 steps 88-Not attempted due to medical condition or safety concerns P. Picking up object 88-Not attempted due to medical condition or safety concerns R. Wheel 50 feet with two turns 88-Not attempted due to medical condition or safety concerns S. Wheel 150 feet 88-Not attempted due to medical condition or safety concerns - Bladder and Bowel Bladder continence Bowel continence - Endurance Fair - Balance Fair - Safety Awareness Fair CURRENT FUNC. DEFICITS: Self-Care, Mobility, Endurance, Balance, and Safety Awareness SIGNATURE PANEL: (DIVER PUMPER)
[2021-04-23] MEDS: ATORVASTATIN 40 MG TAB PO SCH (20:11)
[2021-04-24] MEDS ORDERED: LEVOTHYROXINE SOD 0.025 MG TAB PO ONE (05:00)
[2021-04-24] MEDS: carvediloL 3.125 MG TAB PO SCH ×2 (05:06→17:02)
[2021-04-24] MEDS: LEVOTHYROXINE SOD 0.025 MG TAB PO SCH (05:13)
[2021-04-24] MEDS ORDERED: LEVOTHYROXINE SOD 0.025 MG TAB PO SCH ×3 (06:00→06:30)
[2021-04-24 06:04] LABS: Absolute Lymphocytes (CBC) 0.4 K/uL (0.7-4.9); Hematocrit 23.6 % (36.0-45.0); Lymphocytes % 5.5 % (15.3-44.8); MPV 6.7 fL (7.6-11.3); RBC Red Blood Cell Count 2.57 M/uL (3.86-4.86)
--- NOTE | 2021-04-24 06:14 | P.PN ---
Subjective Date of Service: 04/25/21 Subjective: Other (Received PUF today. No c/o chest pain.) Physical Examination - Vital Signs Temperature: 96.8 F Blood Pressure: 153/65 Pulse: 63 Respirations: 22 Pulse Ox (%): 98 - Physical Exam General: Other (Appears her stated age) HEENT: Atraumatic, Normocephalic Neck: Supple, JVD not distended Respiratory: Other (symmetric chest expansion) Cardiovascular: No rubs, No murmurs Gastrointestinal: Soft and benign, No guarding Musculoskeletal: No clubbing Neurological: Normal tone, Normal affect Lymphatics: No axilla or inguinal lymphadenopathy Urinary: Other (no bladder distention) External genitalia: Deferred Rectal: Deferred - Studies Laboratory Data (last 24 hrs) 04/24/21 05:38: WBC 8.10, Hgb 8.1 L, Hct 23.6 L, Plt Count 162 04/23/21 06:28: WBC 8.10, Hgb 8.1 L, Hct 24.1 L, Plt Count 167 04/23/21 06:28: Sodium 133 L, Potassium 4.6, BUN 55 H, Creatinine 3.17 H, Glucose 120 H, Phosphorus 3.5 D, Magnesium 2.5 H Assessment And Plan - Plan 1. End-stage renal disease. Previously on PD. On HD TTS currently. PUF received today. HD tomorrow. The patient is considering to resume peritoneal dialysis when fluid overload is controlled. Renal vit po daily. Monitor renal panel. 2. Anemia due to chronic kidney disease. Continue SETPHANI qTTS 3. Severe deconditioning. Continue physical rehab. The patient may need cardiac evaluation as well. 4. Congestive heart failure with fluid overload. HD/PUF as above. 5. Renal osteodystrophy. Monitor Ca & Phos.
[2021-04-24 06:49] LABS: Albumin 2.3 g/dL (3.4-5.0); Magnesium 2.3 mg/dL (1.8-2.4); Phosphorus 2.7 mg/dL (2.5-4.9); Potassium 4.2 mmol/L (3.5-5.1)
[2021-04-24] MEDS: INSULIN -REGULAR HUMAN 50 UNIT/0.5 ML ML SQ SCH ×4 (07:30→20:39)
[2021-04-24] MEDS: SODIUM CHLORIDE 0.9% 10ML INJ IV SCH ×2 (08:00→20:00)
[2021-04-24] MEDS: DOCUSATE NA 100 MG CAP PO SCH (08:00)
[2021-04-24] MEDS: PANTOPRAZOLE 40MG TABLET PO SCH (08:23)
[2021-04-24] MEDS: FUROSEMIDE 40 MG TABLET PO SCH (08:23)
[2021-04-24] MEDS: ASPIRIN 81 MG CHEWABLE TABLET PO SCH (08:23)
[2021-04-24] MEDS: ASCORBIC ACID 500 MG TABLET PO SCH (08:24)
[2021-04-24] MEDS: FERROUS SULFATE 325 MG TAB PO SCH (08:24)
[2021-04-24] MEDS: CRANBERRY FRUIT EXTRACT 400 MG CAP PO SCH ×2 (08:24→20:38)
[2021-04-24] MEDS: FE SULF/FA/VIT B COMP & C TAB PO SCH (08:24)
[2021-04-24] MEDS: CLOPIDOGREL 75 MG TABLET PO SCH (08:24)
[2021-04-24] MEDS: VITAMIN B COMPLEX 1 CAP PO SCH (08:24)
[2021-04-24] MEDS: MIDODRINE HCL 5 MG TABLET PO SCH ×2 (08:25→20:38)
[2021-04-24] MEDS: ZINC SULFATE 220 MG CAP PO SCH (08:25)
[2021-04-24] MEDS: CALCITROL 0.25 MCG CAP PO SCH (08:25)
[2021-04-24] MEDS: NEPRO SHAKE 237 ML CAN PO SCH ×3 (08:26→17:00)
[2021-04-24] MEDS: INSULIN LISPRO 100 UNIT/1 ML SQ SCH ×3 (08:27→17:00)
[2021-04-24] MEDS: INSULIN GLARGINE 100 UNIT/ML SQ SCH (08:27)
[2021-04-24] MEDS: HEPARIN 5000 UNIT/ML 1 ML VIAL SQ SCH ×2 (08:30→20:00)
[2021-04-24] MEDS: IPRATROPIUM BROM 0.5MG/2.5ML NEB PRN ×2 (08:30→16:05)
--- NOTE | 2021-04-24 09:40 | P.RH.PN ---
Estimated Length of Stay: 15 Expected Discharge Date: 05/01/21 Discharge Disposition Plan: Home Family Support: Yes [facility] Goal: Mobility, Transfers, Self Care Vital Signs: Last Vital Signs Temp 96.6 F L 04/24/21 07:37 Pulse 80 04/24/21 08:23 Resp 18 04/24/21 07:37 BP 121/60 04/24/21 08:23 Pulse Ox 100 04/24/21 07:37 Laboratory: Laboratory Last Values WBC 8.10 K/uL (4.3-10.9) 04/24/21 05:38 RBC 2.57 M/uL (3.86-4.86) L 04/24/21 05:38 Hgb 8.1 g/dL (12.0-15.0) L 04/24/21 05:38 Hct 23.6 % (36.0-45.0) L 04/24/21 05:38 MCV 91.7 fL (80-100) 04/24/21 05:38 MCH 31.6 pg (27.0-35.0) 04/24/21 05:38 MCHC 34.4 g/dL (32.0-36.0) 04/24/21 05:38 RDW 16.6 % (12.1-15.2) H 04/24/21 05:38 Plt Count 162 K/uL (152-406) 04/24/21 05:38 MPV 6.7 fL (7.6-11.3) L 04/24/21 05:38 Neutrophils % 86.3 % (41.7-73.7) H 04/24/21 05:38 Lymphocytes % 5.5 % (15.3-44.8) L 04/24/21 05:38 Monocytes % 6.5 % (3.3-12.3) 04/24/21 05:38 Eosinophils % 1.3 % (0-4.4) 04/24/21 05:38 Basophils % 0.4 % (0-1.3) 04/24/21 05:38 Absolute Neutrophils 7.0 K/uL (1.8-8.0) 04/24/21 05:38 Segmented Neutrophils 85 % (40-80) H 04/20/21 06:36 Band Neutrophils 2 % (0-1) H 04/20/21 06:36 Absolute Lymphocytes 0.4 K/uL (0.7-4.9) L 04/24/21 05:38 Lymphocytes 5 % (15-42) L 04/20/21 06:36 Monocytes ROVING SIZER 04/20/21 06:36 Absolute Monocytes 0.5 K/uL (0.1-1.3) 04/24/21 05:38 Eosinophils 2 % (0-3) 04/17/21 03:55 Absolute Eosinophils 0.1 K/uL (0-0.5) 04/24/21 05:38 Basophils 1 % (0-1) 04/17/21 03:55 Absolute Basophils 0.0 K/uL (0-0.5) 04/24/21 05:38 Nucleated RBCs 1 /100WBC 04/17/21 03:55 Smudge Cells Present 04/20/21 06:36 Toxic Granulation 2+ 04/17/21 03:55 Platelet Estimate Adeq 04/20/21 06:36 Polychromasia Slight 04/20/21 06:36 Hypochromasia 1+ 04/20/21 06:36 Anisocytosis Slight 04/20/21 06:36 Morphology Comment Noted (NOT SEEN) 04/20/21 06:36 PT 13.5 SECONDS (9.5-12.5) H 04/20/21 06:36 INR 1.17 04/20/21 06:36 Sodium 136 mmol/L (136-145) 04/24/21 06:19 Potassium 4.2 mmol/L (3.5-5.1) 04/24/21 06:19 Chloride 102 mmol/L (98-107) 04/24/21 06:19 Carbon Dioxide 29 mmol/L (21-32) 04/24/21 06:19 BUN 38 mg/dL (7-18) H 04/24/21 06:19 Creatinine 2.55 mg/dL (0.55-1.3) H 04/24/21 06:19 Estimated GFR 18 mL/min (=/>90) L 04/24/21 06:19 Glucose 159 mg/dL (74-106) H 04/24/21 06:19 POC Glucose 137 mg/dL (65-120) H 04/24/21 07:30 Calcium 8.5 mg/dL (8.5-10.1) 04/24/21 06:19 Phosphorus 2.7 mg/dL (2.5-4.9) 04/24/21 06:19 Magnesium 2.3 mg/dL (1.8-2.4) 04/24/21 06:19 Iron 82.0 ug/dL (50-170) 04/23/21 06:28 TIBC 209 ug/dL (250-460) L 04/23/21 06:28 Transferrin 149 mg/dL (200-360) L 04/23/21 06:28 Transferrin % Sat 39.2 % (20.0-50.0) 04/23/21 06:28 Ferritin 1068.7 ng/mL (8-388) H 04/23/21 06:28 Albumin 2.3 g/dL (3.4-5.0) L 04/24/21 06:19 Prealbumin 16.2 mg/dL (20-40) L 04/23/21 06:28 Vitamin B12 665 pg/mL (193-986) 04/23/21 06:28 Serum Folate 15.1 ng/mL (3.1-17.5) 04/23/21 06:28 TSH 6.370 uIU/mL (0.360-3.740) H 04/23/21 06:28 Free T4 1.26 ng/dL (0.76-1.46) 04/23/21 06: PTH Intact 37.8 pg/mL (18.4-80.1) 04/23/21 06:28 Urine Color Yellow (Yellow) 04/17/21: Urine Appearance Cloudy (Clear) 04/17/21: Urine pH 5.5 (5.0-7.0) 04/17/21 07: Ur Specific [place] 1.015 (1.005-1.030) 04/17/21 07:30 Glucose (UA)(Auto) Negative (Negative) 04/17/21: Urine Ketones Negative (Negative) 04/17/21 07: Urine Blood Trace (Negative) H 04/17/21 07:30 Urine Nitrite Negative (Negative) 04/17/21: Urine Bilirubin Negative (Negative) 04/17/21: Urine Urobilinogen 0.2 mg/dL (0.2-1.0) 04/17/21 07:30 Ur Leukocyte Esterase 1+ (Negative) H 04/17/21 07:30 Urine RBC 20-50 /HPF (NONE SEEN) H 04/17/21 07:30 Urine WBC 10-20 /HPF (<5) H 04/17/21 07:30 Ur Squamous Epith Cells 10-20 /HPF (NONE SEEN) H 04/17/21 07:30 Amorphous Sediment 1+ /HPF (NONE SEEN) 04/17/21 07:30 Urine Bacteria 20-50 /HPF (<20) H 04/17/21 07:30 Urine Culture Reflexed Not needed 04/17/21 07:30 Urine Total Protein 2+ (Negative) H 04/17/21 07:30 Hep Bs Antigen Nonreactive (Nonreactive) 04/19/21 19:00 Hep Bs Antibody Nonreactive (Nonreactive) 04/19/21 19:00 Hep B Core Total Ab Nonreactive (Nonreactive) 04/19/21 19:00 Hepatitis C Antibody Nonreactive (Nonreactive) 04/19/21 19:00 Hep C Ab Signal/Cutoff 0.01 ratio (<1.00) 04/19/21 19:00 Weight: 225 lb 4.8 oz Wound Present: Yes Negative Pressure Wound Therapy Present: No Physician Update: Labs reviewed and are stable. She is making fairly slow progress overall with sternal precautions. Her depression is improving. Requestin additional days due to needing much more therapy to be safe at home with her daughter. ESRD in now on hemodialysis. Functional Improvement: Patient is physically capable of being I w/ transfers however lacks motivations. Patient requires verbal motivation to stay awake and continuation for therapy. Summary: Patient's care plan and detention goals have been reviewed and revised as necessary. Please see the Rehabilitation Signature page for all necessary signatures.
[2021-04-24 11:15] LABS: Blood Morphology Comment NOT SEEN (NOT SEEN); Platelet Estimate ADEQ; White Blood Cell Scan OK (OK)
[2021-04-24] MEDS ORDERED: DOCUSATE NA 100 MG CAP PO PRN (14:44)
--- NOTE | 2021-04-24 19:57 | RAD REPORT ---
EXAM DESCRIPTION: US - Extrem Venous W Compress Bryant - 04/24/2021 7:37 pm CLINICAL HISTORY: r/o dvt COMPARISON: No comparisons TECHNIQUE: Real-time sonographic evaluation of the lower extremity deep venous systems was performed using color Doppler, grayscale, and compression. FINDINGS: Bilateral lower extremities. Normal compressibility, flow augmentation, phasic flow and spontaneous flow is identified in the righ t lower extremity deep venous systems. No intraluminal filling defects seen. The left common femoral vein, femoral vein, popliteal vein, and posterior tibial vein demonstrate com pressibility, augmentation, and color Doppler flow. The left greater saphenous vein is incompletely c ompressible. Left-sided Dougherty's cyst. IMPRESSION: 1. Positive for deep venous thrombosis in the left greater saphenous vein. 2. Negative for deep venous thrombosis in the right lower extremity.
[2021-04-24] MEDS: DULOXETINE 30 MG CAP PO SCH (20:38)
[2021-04-24] MEDS: ATORVASTATIN 40 MG TAB PO SCH (20:39)
[2021-04-24] MEDS: levoFLOXacin 250 MG TAB PO SCH (20:39)
[2021-04-24] MEDS: MELATONIN 3 MG TABLET PO PRN (22:09)
[2021-04-24] MEDS: HYDROCODONE/APAP 5/325 MG TAB PO PRN (22:09)
[2021-04-25] MEDS: LEVOTHYROXINE SOD 0.025 MG TAB PO SCH (05:03)
[2021-04-25] MEDS: carvediloL 3.125 MG TAB PO SCH ×2 (05:03→16:59)
[2021-04-25 06:25] LABS: Absolute Lymphocytes (CBC) 0.5 K/uL (0.7-4.9); Hematocrit 23.2 % (36.0-45.0); Lymphocytes % 7.8 % (15.3-44.8); MPV 6.8 fL (7.6-11.3); RBC Red Blood Cell Count 2.47 M/uL (3.86-4.86)
[2021-04-25 06:39] LABS: Albumin 2.4 g/dL (3.4-5.0); Magnesium 2.4 mg/dL (1.8-2.4); Phosphorus 3.1 mg/dL (2.5-4.9)
[2021-04-25] MEDS: INSULIN -REGULAR HUMAN 50 UNIT/0.5 ML ML SQ SCH ×4 (06:53→19:59)
[2021-04-25] MEDS: SODIUM CHLORIDE 0.9% 10ML INJ IV SCH ×2 (08:00→19:46)
[2021-04-25] MEDS: FUROSEMIDE 40 MG TABLET PO SCH ×2 (08:00→09:19)
[2021-04-25] MEDS: ONDANSETRON 4 MG (ODT) TAB PO PRN ×2 (08:25→23:48)
[2021-04-25] MEDS: ASPIRIN 81 MG CHEWABLE TABLET PO SCH (08:51)
[2021-04-25] MEDS: FERROUS SULFATE 325 MG TAB PO SCH (08:52)
[2021-04-25] MEDS: CLOPIDOGREL 75 MG TABLET PO SCH (08:52)
[2021-04-25] MEDS: CALCITROL 0.25 MCG CAP PO SCH (08:52)
[2021-04-25] MEDS: VITAMIN B COMPLEX 1 CAP PO SCH (08:52)
[2021-04-25] MEDS: CRANBERRY FRUIT EXTRACT 400 MG CAP PO SCH ×2 (08:52→19:45)
[2021-04-25] MEDS: FE SULF/FA/VIT B COMP & C TAB PO SCH (08:52)
[2021-04-25] MEDS: PANTOPRAZOLE 40MG TABLET PO SCH (08:52)
[2021-04-25] MEDS: ZINC SULFATE 220 MG CAP PO SCH (08:52)
[2021-04-25] MEDS: CYANOCOBALAMIN 1,000 MCG TAB PO SCH (08:52)
[2021-04-25] MEDS: NEPRO SHAKE 237 ML CAN PO SCH ×3 (08:53→17:00)
[2021-04-25] MEDS: ASCORBIC ACID 500 MG TABLET PO SCH (09:01)
[2021-04-25] MEDS: MIDODRINE HCL 5 MG TABLET PO SCH ×2 (09:03→19:45)
[2021-04-25] MEDS: INSULIN LISPRO 100 UNIT/1 ML SQ SCH ×3 (09:20→17:00)
[2021-04-25] MEDS: INSULIN GLARGINE 100 UNIT/ML SQ SCH (09:21)
[2021-04-25] MEDS: HEPARIN 5000 UNIT/ML 1 ML VIAL SQ SCH (10:00)
--- NOTE | 2021-04-25 11:59 | PN ---
Date of Progress Note: 04/25/2021 Subjective: The patient was admitted after cardiac surgery for cardiac rehab. The patient doing wel l. The patient had anasarca. DVT study was done yesterday and was positive for DVT on the greater s aphenous vein on the left side. Physical Examination: Vital Signs: Blood pressure 120/60, pulse of 77. Chest: Crackles bilateral. Heart S1, S2. Systolic murmur. Abdomen: Soft, nontender. Extremity: +1 edema, left more than the right. Laboratory Data: Chest x-ray dated on the , bilateral congestion with right-sided pleural effusi on. DVT study positive for DVT on the greater saphenous on the left side. WBC 6.9, H and H 7.8/23.2 . Sodium 133, potassium 4, bicarb 29, BUN 59, creatinine 3.4, calcium 8.5, phosphorus 3.1, magnesium 2.4, albumin 2.4. Current Medications: The patient on include; 1.Aspirin. 2.Levaquin. 3.Midodrine. 4.Plavix. 5.Carvedilol. 6.Nitroglycerin. 7.Lasix 80 daily. 8.Levothyroxine. 9.Insulin. 10.Vitamin C. 11.Calcitriol. 12.B complex. Assessment And Plan: 1.End-stage renal disease, still on the over volume side. I am going to go ahead and do another ses preeti of sequential today and we will follow up the patient. 2.Hypertension. We will utilize blood pressure for more ultrafiltration. 3.Deep vein thrombosis. We will start the patient on Eliquis. We will follow up with primary. 4.Heart surgery, coronary artery disease. Continue on anticoagulation. Continue PT/OT. We will di scontinue heparin as we are going to start the patient on Eliquis. 5.Anemia of chronic kidney disease. Continue Retacrit. 6.Congestive heart failure with exacerbation as above. 7.Diabetes as by primary. MARILU/JENSEN Voice ID: [id number] Report ID: [id number]
[2021-04-25] MEDS: EPOETIN 4,000 UNIT/ML VIAL IV SCH (14:47)
[2021-04-25] MEDS: ATORVASTATIN 40 MG TAB PO SCH (19:45)
[2021-04-25] MEDS: DULOXETINE 30 MG CAP PO SCH (19:45)
[2021-04-25] MEDS: APIXABAN 5 MG TABLET PO SCH (19:45)
[2021-04-25] MEDS: MELATONIN 3 MG TABLET PO PRN (19:45)
--- NOTE | 2021-04-25 22:41 | P.CNS ---
Date of Consult: 04/25/21 Reason for Consult: Medical management Requesting Physician: Stephen Goetz Chief Complaint: Weakness; fatigue; DVT; ESRD History of Present Illness: The patient is a 80-year-old woman with history of coronary artery disease and recent CABG status post pacemaker placement. Patient was hospitalized at [facility] for COVID pneumonia and respiratory failure. Patient was admitted to rehab after CABG for continued physical therapy and strengthening. Patient has been on peritoneal dialysis. However, peritoneal dialysis had not been working well so patient was started on hemodialysis. Patient has been getting hemodialysis and doing well. Patient was recently found to have a DVT. Patient was started on Eliquis. Patient also on antiplatelet regimen of aspirin and Plavix. Patient with generalized weakness. Continuing with inpatient rehab and hopefully her strength improves. Allergies No Known Allergies Allergy (Verified 04/16/21 16:34) Home Medications: Acetaminophen [Tylenol] 650 mg PO Q6H PRN 04/16/21 Ascorbic Acid [C-1000] 1,000 mg PO DAILY 04/16/21 Aspirin 81 mg PO DAILY 04/16/21 Atorvastatin Calcium [Lipitor] 40 mg PO BEDTIME 04/16/21 Calcitrol [Rocaltrol*] 1 tab PO DAILY 04/16/21 Calcium Acetate [Phoslo*] 1 tab PO TIDWM 04/16/21 Carvedilol [Coreg] 1 tab PO BID 04/16/21 Clopidogrel Bisulfate [Plavix*] 75 mg PO DAILY 04/16/21 Ferrous Sulfate [Ferrous Sulfate*] 1 tab PO DAILY 04/16/21 Heparin Sod,Porcine/0.9 % NaCl [Heparin 5,000 Unit/1,000 ml-Ns] 5,000 unit SQ Q8H 04/16/21 Hydrocodone 5/APAP 325 [[place] 5/325*] 1 tab PO Q5H PRN 04/16/21 Insulin Glargine,Hum.rec.anlog [Lantus Solostar] 30 units SQ DAILY 04/16/21 Insulin Lispro [Insulin Lispro Linus Kwikpen] 12 units SQ TID 04/16/21 Ipratropium Neb [Atrovent*] 1 aero IN Q6H 04/16/21 Midodrine HCl [Proamatine*] 5 mg PO BID 04/16/21 Nitroglycerin [Nitrostat*] 1 tab PO Q5MX3, Q15MX1, Q30M PRN 04/16/21 Pantoprazole [Protonix Tab*] 40 mg PO DAILY 04/16/21 Polyethylene Glycol 3350 [Miralax] 1 packet PO BID 04/16/21 Vitamin B Complex [B Complex] 1 tab PO DAILY 04/16/21 Zinc Sulfate [Zinc Sulfate*] 1 tab PO DAILY 04/16/21 - Past Medical/Surgical History Diabetic: Yes -: CHF -: CAD -: DM -: Stroke, no residual -: HTN -: CKD on Peritoneal dialysis @[facility] -: Cabg x4 04/06/21 - Family History Father Family History: Reviewed- Non-Contributory - Social History Smoking Status: Unknown if ever smoked Alcohol use: No CD- Drugs: No Caffeine use: Yes Place of Residence: Home Review of Systems 10-point ROS is otherwise unremarkable Physical Examination Temp Pulse Resp BP Pulse Ox 96.6 F L 84 18 122/57 L 99 04/25/21 20:00 04/25/21 20:00 04/25/21 20:00 04/25/21 20:00 04/25/21 20:00 General: Alert, In no apparent distress, Other (Lethargic and fatigued) HEENT: Atraumatic, PERRLA, Mucous membr. moist/pink, EOMI, Sclerae nonicteric Neck: Supple, 2+ carotid pulse no bruit, No LAD, Without JVD or thyroid abnormality Respiratory: Clear to auscultation bilaterally, Normal air movement Cardiovascular: Regular rate/rhythm, Normal S1 S2, Systolic murmur Gastrointestinal: Normal bowel sounds, Soft and benign, Non-distended, W/out succussion splash, No tenderness Musculoskeletal: No clubbing, No swelling, No tenderness Integumentary: No rashes Neurological: Sensation intact, Cranial nerves 3-12 intact, Abnormal gait, Abnormal speech Lymphatics: No axilla or inguinal lymphadenopathy Laboratory Data (last 24 hrs) 04/25/21 06:05: WBC 6.90 D, Hgb 7.8 L, Hct 23.2 L, Plt Count 128 L D 04/25/21 06:05: Sodium 133 L, Potassium 4.0, BUN 59 H D, Creatinine 3.41 H, Glucose 134 H, Phosphorus 3.1, Magnesium 2.4 - Problems (1) ESRD (end stage renal disease) Current Visit: Yes Status: Acute (2) Weakness Current Visit: Yes Status: Acute (3) DVT (deep venous thrombosis) Current Visit: Yes Status: Acute (4) Fatigue Current Visit: Yes Status: Acute (5) CAD (coronary artery disease) Current Visit: Yes Status: Acute (6) Status post coronary artery bypass graft Current Visit: Yes Status: Acute (7) History of hypertension Current Visit: Yes Status: Acute (8) History of diabetes mellitus Current Visit: Yes Status: Acute Conclusions/ Impression: Plan: 1. Continue with hemodialysis per nephrology 2. Continue Eliquis for DVT prophylaxis 3. Continue with antiplatelet therapy 4. We will get cardiology consult for input regarding antiplatelet regimen 5. Strict blood pressure and blood sugar control 6. GI DVT prophylaxis Critical Care: No Time Spent Managing Pts care (In Minutes): 45
[2021-04-26] MEDS: LEVOTHYROXINE SOD 0.025 MG TAB PO SCH (05:07)
[2021-04-26] MEDS: carvediloL 3.125 MG TAB PO SCH ×3 (05:07→17:58)
[2021-04-26 06:23] LABS: Absolute Lymphocytes (CBC) 0.6 K/uL (0.7-4.9); Hematocrit 23.8 % (36.0-45.0); MPV 6.8 fL (7.6-11.3); RBC Red Blood Cell Count 2.52 M/uL (3.86-4.86)
[2021-04-26 06:42] LABS: Albumin 2.5 g/dL (3.4-5.0); Magnesium 2.4 mg/dL (1.8-2.4); Phosphorus 2.9 mg/dL (2.5-4.9); Potassium 4.6 mmol/L (3.5-5.1)
[2021-04-26 07:23] LABS: Albumin 2.5 g/dL (3.4-5.0); Bilirubin Total 0.6 mg/dL (0.2-1.0); Folic Acid, (Folate) 15.4 ng/mL (3.1-17.5); Potassium 4.4 mmol/L (3.5-5.1); Protein, Total 6.1 g/dL (6.4-8.2)
[2021-04-26 07:24] LABS: Thyroid Stimulating Hormone 4.25 uIU/mL (0.360-3.740)
[2021-04-26] MEDS: INSULIN -REGULAR HUMAN 50 UNIT/0.5 ML ML SQ SCH ×4 (07:30→19:56)
[2021-04-26] MEDS: ASCORBIC ACID 500 MG TABLET PO SCH (08:00)
[2021-04-26] MEDS: ZINC SULFATE 220 MG CAP PO SCH (08:00)
[2021-04-26] MEDS: FERROUS SULFATE 325 MG TAB PO SCH (08:00)
[2021-04-26] MEDS: CRANBERRY FRUIT EXTRACT 400 MG CAP PO SCH ×2 (08:00→19:56)
[2021-04-26] MEDS: FUROSEMIDE 40 MG TABLET PO SCH ×2 (08:00→13:00)
[2021-04-26] MEDS: FE SULF/FA/VIT B COMP & C TAB PO SCH (08:00)
[2021-04-26] MEDS: PANTOPRAZOLE 40MG TABLET PO SCH ×2 (08:09→17:58)
[2021-04-26] MEDS: NEPRO SHAKE 237 ML CAN PO SCH ×3 (09:00→17:24)
[2021-04-26] MEDS: APIXABAN 5 MG TABLET PO SCH ×2 (09:32→19:55)
[2021-04-26] MEDS: CLOPIDOGREL 75 MG TABLET PO SCH (09:32)
[2021-04-26] MEDS: CYANOCOBALAMIN 1,000 MCG TAB PO SCH (09:32)
[2021-04-26] MEDS: CALCITROL 0.25 MCG CAP PO SCH (09:33)
[2021-04-26] MEDS: MIDODRINE HCL 5 MG TABLET PO SCH ×2 (09:33→19:56)
[2021-04-26] MEDS: INSULIN GLARGINE 100 UNIT/ML SQ SCH (09:34)
[2021-04-26] MEDS: INSULIN LISPRO 100 UNIT/1 ML SQ SCH ×3 (09:34→17:00)
[2021-04-26] MEDS: ASPIRIN 81 MG CHEWABLE TABLET PO SCH (12:01)
[2021-04-26] MEDS: VITAMIN B COMPLEX 1 CAP PO SCH (12:02)
[2021-04-26] MEDS: SODIUM CHLORIDE 0.9% 10ML INJ IV SCH ×2 (12:02→19:56)
[2021-04-26] MEDS: ONDANSETRON 4 MG (ODT) TAB PO PRN ×3 (13:02→22:06)
--- NOTE | 2021-04-26 15:29 | PN ---
Date of Progress Note: 04/26/2021 Subjective: The patient was admitted after heart surgery for cardiac rehab. The patient used to be on PD. The patient was over volume, being dialyzed on a daily basis to establish better volume contr ol. The patient also found to have DVT. Physical Examination: Vital Signs: Blood pressure 129/57, pulse of 80, afebrile. Yesterday, we managed to ultrafiltrate. Chest: Decreased entry bilateral. Heart: S1, S2. Systolic murmur. Sternal wound clean. Abdomen: Morbidly obese. Extremities: +1 edema, more prominent on the left. Neurologic: Alert. No focality. Laboratory Data: H and H 10/20.8. Sodium 133, potassium 4.4, bicarb 29, BUN 42, creatinine 2.8, GFR of 16, calcium 8.3. Phosphorus 2.9. BNP 69,000. Current Medications: The patient on include; 1.Aspirin. 2.Levofloxacin. 3.Eliquis 5 mg b.i.d. 4.Epogen 4000 every dialysis. 5.Carvedilol 3.125 b.i.d. 6.Tylenol. 7.Lasix 80 daily. 8.Ipratropium. 9.Zofran. 10.Insulin. 11.Cranberry fruit extract. 12.Melatonin. 13.Hydrocodone. Assessment And Plan: 1.End-stage renal disease, started to be close to normal volume. The patient is interested to go ba on PD after discharge. We will continue on hemo currently while she is in the hospital to establi sh better volume control and we will follow up the patient. We will continue to challenge as tolerat ed. 2.Hypertension, controlled, optimal. We will utilize blood pressure for more ultrafiltration. Cont inue diuresis. 3.Deep vein thrombosis. The patient was started on Eliquis. We will follow up. 4.Anasarca secondary to renal failure, cardiorenal. Continue to establish better volume control. 5.Unilateral edema secondary to deep vein thrombosis. Continue Eliquis. 6.Anemia of chronic kidney disease. Continue STEPHANI. 7.Secondary hyperparathyroidism. Calcium and phosphorus on the goal. 8.Cardiac surgery. Continue cardiac rehab. We will follow up with the primary. MARILU/JENSEN Voice ID: [id number] Report ID: [id number]
--- NOTE | 2021-04-26 19:47 | RAD REPORT ---
EXAM DESCRIPTION: RAD - Abdomen 1 View (KUB) - 04/26/2021 6:06 pm CLINICAL HISTORY: abd pain COMPARISON: Abdomen 1 View (KUB) dated 04/18/2021 FINDINGS: Nonobstructive bowel gas pattern. No acute osseous abnormality.Right pleural effusion. Pac emaker.No abnormal calcifications. Catheter tubing overlies the pelvis. IMPRESSION: Nonobstructive bowel gas pattern.
[2021-04-26] MEDS: ATORVASTATIN 40 MG TAB PO SCH (19:55)
[2021-04-26] MEDS: levoFLOXacin 250 MG TAB PO SCH (19:55)
[2021-04-26] MEDS: DULOXETINE 30 MG CAP PO SCH (19:55)
[2021-04-27] MEDS: LEVOTHYROXINE SOD 0.025 MG TAB PO SCH (05:02)
[2021-04-27] MEDS: carvediloL 3.125 MG TAB PO SCH ×2 (05:02→17:21)
[2021-04-27 05:31] LABS: Absolute Lymphocytes (CBC) 0.6 K/uL (0.7-4.9); Hematocrit 24.7 % (36.0-45.0); MPV 7.1 fL (7.6-11.3); RBC Red Blood Cell Count 2.62 M/uL (3.86-4.86)
[2021-04-27 05:49] LABS: Albumin 2.7 g/dL (3.4-5.0); Phosphorus 4.5 mg/dL (2.5-4.9)
[2021-04-27 05:50] LABS: Magnesium 2.6 mg/dL (1.8-2.4); Potassium 5.1 mmol/L (3.5-5.1)
[2021-04-27] MEDS: PANTOPRAZOLE 40MG TABLET PO SCH ×2 (07:15→17:21)
[2021-04-27] MEDS: ONDANSETRON 4 MG (ODT) TAB PO PRN (07:17)
[2021-04-27] MEDS: INSULIN -REGULAR HUMAN 50 UNIT/0.5 ML ML SQ SCH ×4 (07:30→19:45)
--- NOTE | 2021-04-27 07:34 | RAD REPORT ---
EXAM DESCRIPTION: RAD - Chest Single View - 04/27/2021 6:46 am CLINICAL HISTORY: follow up COMPARISON: Abdomen 1 View (KUB) dated 04/26/2021; Chest Single View dated 04/23/2021; Chest Single Vi ew dated 04/19/2021; Chest Single View dated 04/18/2021 FINDINGS: Lines: Right subclavian dialysis catheter. Pacemaker. Lungs: Diffuse prominence of the pulmonary interstitium. Pleural: Bilateral effusions. Cardiac: Cardiomegaly. Bones: No acute fractures. Sternotomy. Other: The patient rotated. IMPRESSION: Similar aeration of the lungs with bilateral pleural effusions and hazy opacities likely reflecting edema.
[2021-04-27] MEDS: MIDODRINE HCL 5 MG TABLET PO SCH ×2 (07:40→19:52)
[2021-04-27] MEDS: NEPRO SHAKE 237 ML CAN PO SCH ×3 (07:40→17:00)
[2021-04-27] MEDS: ASPIRIN 81 MG CHEWABLE TABLET PO SCH (07:40)
[2021-04-27] MEDS: CALCITROL 0.25 MCG CAP PO SCH (07:41)
[2021-04-27] MEDS: VITAMIN B COMPLEX 1 CAP PO SCH (07:41)
[2021-04-27] MEDS: SODIUM CHLORIDE 0.9% 10ML INJ IV SCH ×2 (07:42→19:23)
[2021-04-27] MEDS: APIXABAN 5 MG TABLET PO SCH ×2 (07:42→19:52)
[2021-04-27] MEDS: FUROSEMIDE 40 MG TABLET PO SCH (07:43)
[2021-04-27] MEDS: CRANBERRY FRUIT EXTRACT 400 MG CAP PO SCH ×2 (08:00→19:45)
[2021-04-27] MEDS: ZINC SULFATE 220 MG CAP PO SCH (08:00)
[2021-04-27] MEDS: INSULIN LISPRO 100 UNIT/1 ML SQ SCH ×3 (08:00→17:00)
[2021-04-27] MEDS: FERROUS SULFATE 325 MG TAB PO SCH (08:00)
[2021-04-27] MEDS: INSULIN GLARGINE 100 UNIT/ML SQ SCH (08:00)
[2021-04-27] MEDS: FE SULF/FA/VIT B COMP & C TAB PO SCH (08:00)
[2021-04-27] MEDS: ASCORBIC ACID 500 MG TABLET PO SCH (08:00)
--- NOTE | 2021-04-27 13:10 | P.PN ---
Subjective Date of Service: 04/27/21 Chief Complaint: Weakness; fatigue; DVT; ESRD Subjective: No new changes (-Complaining of midabdominal pain, still very static and lethargic Noted with low BP with systolic in the mid 100s today, similar to her chronic a.m. blood pressure Review of records show patient did not get her midodrine last p.m. due to elevated blood pressure Patient denies any chest pain ) Physical Examination - Vital Signs Temperature: 96.6 F Blood Pressure: 109/60 Pulse: 68 Respirations: 19 Pulse Ox (%): 100 - Studies Laboratory Data (last 24 hrs) 04/27/21 05:10: WBC 7.70, Hgb 8.4 L, Hct 24.7 L, Plt Count 109 L 04/27/21 05:10: Sodium 134 L, Potassium 5.1, BUN 63 H D, Creatinine 3.87 H D, Glucose 84, Phosphorus 4.5 D, Magnesium 2.6 H Assessment And Plan Physician Review: Patient Assessed, Agree with Above Assessment and Plan Physician Review Additional Text: General: Alert, In no apparent distress, Other (Lethargic and fatigued) HEENT: Atraumatic, PERRLA, Mucous membr. moist/pink, EOMI, Sclerae nonicteric Neck: Supple, 2+ carotid pulse no bruit, No LAD, Without JVD or thyroid abnormality Respiratory: Clear to auscultation bilaterally, Normal air movement Cardiovascular: Regular rate/rhythm, Normal S1 S2, Systolic murmur Gastrointestinal: Normal bowel sounds, Soft and benign, Non-distended, W/out succussion splash, No tenderness Musculoskeletal: No clubbing, No swelling, No tenderness Integumentary: No rashes Neurological: Sensation intact, Cranial nerves 3-12 intact, Abnormal gait, Abnormal speech Lymphatics: No axilla or inguinal lymphadenopathy Laboratory Data (last 24 hrs) Impression/plan Chronic borderline hypotensionstable, on chronic midodrine Persistent abdominal pain Status post CABG Recent Covid pneumonia with respiratory failurestatus [facility] Anemia of CKD ESRDstatus post failed PD, switched to hemodialysis now since 1 week Mild elevated troponin Status post pacemaker Recent DVT on chronic anticoagulation with Eliquis Plan We will obtain CT of the abdomen today to rule out any intra-abdominal pathology Previous KUB shows normal air-fluid levels with no obstruction Continue midodrine Follow with hemodialysis today, target UF of at least 3 to 4 L Consider increase midodrine to allow for more ultrafiltration on to volume status obtained Nephrology discussed with Rehab team/nurses discussed with Avoid further hold of midodrine doses even with elevated blood pressure intermittently Follow troponin trend, mild elevation may be due to post CABG and ESRD, no any new EKG changes Continue to monitor closely If further rise in troponin, will consult cardiology as well as transfer to inpatient status Continue in rehab for now
--- NOTE | 2021-04-27 14:55 | RAD REPORT ---
EXAM DESCRIPTION: CT - Abdomen Pelvis Wo Contrast - 04/27/2021 2:35 pm CLINICAL HISTORY: Abdominal pain COMPARISON: None TECHNIQUE: Computed axial tomography of the abdomen and pelvis was obtained. IV and oral contrast we re not requested. All CT scans are performed using dose optimization technique as appropriate and may include automated exposure control or mA/KV adjustment according to patient size. FINDINGS: The evaluation of solid organs, vessels and bowel is limited secondary to the lack of con trast administration. Small to moderate right and small left pleural effusions The liver, spleen, pancreas, adrenals and kidneys appear grossly normal. The appendix is normal. There is no evidence of diverticulitis. A percutaneous catheter with its tip in the right upper pelvis. Laxity of the right lateral abdominal wall musculature IMPRESSION: Small to moderate right and small left pleural effusions No acute abnormality involving the abdomen/pelvis
--- NOTE | 2021-04-27 17:10 | R.PN ---
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 SUBJECTIVE: Pt denied any depression. Pt denied any Shortness of Breath. Cardiac debility, S/P 4 vessel CABG. WBC 7.7, Hgb 8.4. Negative Retoucher 3.87, Na 134, glucose 77 to 97. UA: 1+ esterase, WBC 10-20, bacteria 20-50. Renal service started HD after a port was placed by general surgery. Repeat chest x-ray 04-20-21 shows mild interstitial pulmonary edema. No changes from interval exam. Therapy held today due to possible worsening cardiac condition. Patient states that pain is under control. Troponin I is elevated to 142.7. Note patient had 4-vessel CABG. She did not have worsening chest fabiola n. Cardiology is consulted. Hep Bs antigen testing, nonreactive. VITAL SIGNS Temperature: 97.6 F Resp: 16 Pulse: 68 SBP/DBP: 109/60 MEDICATION ALLERGIES: No Known Drug Allergies (NKDA) ENVIRONMENTAL ALLERGIES: - Substance Allergies None Known - Other Allergies None Known NURSING: - Shower allowing shower PRECAUTIONS: - Fall Precaution SAFTY AND FALL ACTIVITIES OOB only with supervision THERAPIES: - Dietary and Nutrition Adequate Nutrition. Nutritional Education. Nutritional Supplements. - Occupational Therapy Cognitive Retraining. Visual Perceptual Training. ADL Training. Adaptive Equipment. Evaluate and Glenny t. Safety Awareness. Transfer Training. Patient/Family Education. - Speech Therapy Cognitive Training. Expressive Language Skills. Memory Strategies. Receptive Language Skills. Speech Intelligibility Training. Evaluate and Treat. - Physical Therapy Mobility Training. Gait Training. Safety Awareness. Transfer Training. Balance Training. Evaluate and Treat. PHYSICAL EXAM - Gen Alert and awake Lying in bed No apparent distress Oriented to: person, time, and place - Skin Surgical sites on left and right legs shows good hemostasis. Mild to moderate size blisters on medial left and right thighs. No abnormalities - Eyes No abnormalities - ENMT No abnormalities - Neck No abnormalities - CVS RRR - Chest Chest incision is healing with good hemostasis. - Resp No wheezing - Abd Soft - GI nondistended Deferred - No abnormalities - Ext Moderate edema in both lower extremities. - MSK 4/5 weakness in both lower extremities. - Neuro No focal deficits - Psych Mild anxiety. ASSESSMENT: Pt. is a 80 yo Right-handed female.On 04/06/2021 she was admitted to [facility] with diagnosis ISCHEMI C CARDIOMYOPATHY CABG X4.Her impairment category is Cardiac 09 - Cardiac Disorders (09).Pre-morbidly , Pt. was independent/mod-I in Locomotion, Safety Awareness, Social Cognition, and Balance; and she h ad good Sphincter Control, Self-Care, Communication, and Endurance.Currently, she has deficits of Loc omotion, Safety Awareness, Social Cognition, Balance, Transfers Control, Sphincter Control, Self-Care , Communication, and Endurance.Pt. is now referred to [facility] for acute in- patient rehabilitation in order to maximize patient's functional independence in activities of daily living, strength, ROM, and mobility.- Rehab Goal Patient has realistic goal of being discharged at assistance level 7-Ind to reside at Home with Pt s elf. MDM/PLAN: - Physical Therapy Gait dysfunction - to improve, our physical therapists will perform initial evaluation of pt's statu s upon admission and devise an individualized program for Gait Training, and Wheel Chair mobility Inability to transfer - to improve, our physical therapists will perform initial evaluation of pt's status upon admission and devise an individualized program for Bed mobility Need for home safety evaluation - to improve, our physical therapists will perform initial evaluatio n of pt's status upon admission and devise an individualized program for Home Evaluation Need in caregiver upon discharge - to improve, our physical therapists will perform initial evaluati on of pt's status upon admission and devise an individualized program for Caregiver Training New precaution - to improve, our physical therapists will perform initial evaluation of pt's status upon admission and devise an individualized program for Patient precaution education Edema - to improve, our physical therapists will perform initial evaluation of pt's status upon admi ssion and devise an individualized program for Elevation Training, and Lymphedema Therapy Poor balance - to improve, our physical therapists will perform initial evaluation of pt's status up on admission and devise an individualized program for Balance Training Poor endurance - to improve, our physical therapists will perform initial evaluation of pt's status upon admission and devise an individualized program for Endurance Training Weakness - to improve, our physical therapists will perform initial evaluation of pt's status upon a dmission and devise an individualized program for Aquatic Therapy, Neuromuscular Reeducation, and Str engthening Achieving independence - to improve, our physical therapists will perform initial evaluation of pt's status upon admission and devise an individualized program for Community Reintegration Activities - Occupational Therapy ADL deficits - to improve, our occupation therapists will perform initial evaluation of pt's status upon admission and devise an individualized program for Bathing, Bed mobility, Community Reintegratio n, Cooking, Dressing, Eating, Fine Motor Skills, Grooming, Homemaking, Kitchen Mobility, Laundry, Pat ient Education, Safety Awareness, Splinting - Positioning, Transfers(Toilet, Tub, Shower), and Wheel Chair Management Cognitive deficits - to improve, our occupation therapists will perform initial evaluation of pt's s tatus upon admission and devise an individualized program for Cognition - orientation Need for vp care management - to improve, our occupation therapists will perform initial evaluation of pt's status upon admission and devise an individualized program for Caregiver Training Weakness - to improve, our occupation therapists will perform initial evaluation of pt's status upon admission and devise an individualized program for Aquatic Therapy, Balance, Endurance, UE ROM, and UE strengthening - Other See attached MAR (Medication Administration Record) - Diet Type Continue Regular - Diet - Liquid Texture Continue Regular - Tube Feed Continue N/A - Fall Precaution SAFTY AND FALL - Diet - Solid Texture Continue Regular - Shower allowing shower FUNCTIONAL STATUS: UPDATED AT WEEKLY TEAM CONFERENCE - Bladder Same accident frequency: 7-Ind - No accidents in the past 7 days - Bowel Same accident frequency: 7-Ind - No accidents in the past 7 days - Walking Same score based on distance walked: 0(N/A) Same score based on distance walked: 1(<=50ft) - Wheelchair Same score based on distance traveled: 0(N/A) FUNCTIONAL STATUS: - Self-Care A. Eating Ind D. Dressing - Upper sup E. Dressing - Lower [place] F. Toileting [place] - Sphincter Control G. Bladder control Yadira H. Bowel control Yadira - Transfers Control K. Tub/Shower modA - Locomotion L. Walk/Wheelchair (B) maxA M. Stairs maxA - Communication N. Comprehension (B) Yadira O. Expression (B) Yadira - Social Cognition P. Social Interaction Yadira Q. Problem Solving Yadira R. Memory Yadira - Endurance Fair - Balance Fair - Safety Awareness Fair QI SCORES: - Self-Care A. Eating 03-Partial/moderate assistance B. Oral hygiene 03-Partial/moderate assistance C. Toileting hygiene 03-Partial/moderate assistance E. Shower/bathe self 03-Partial/moderate assistance F. Upper body dressing 03-Partial/moderate assistance G. Lower body dressing 03-Partial/moderate assistance H. Putting on/taking off footwear 88-Not attempted due to medical condition or safety concerns - Mobility A. Roll left and right 04-Supervision or touching assistance B. Sit to lying 03-Partial/moderate assistance C. Lying to sitting on side of bed 03-Partial/moderate assistance D. Sit to stand 03-Partial/moderate assistance E. Chair/wif-cw-spfoy transfer 03-Partial/moderate assistance F. Toilet transfer 03-Partial/moderate assistance G. Car transfer 88-Not attempted due to medical condition or safety concerns I. Walk 10 feet 03-Partial/moderate assistance J. Walk 50 feet with two turns 88-Not attempted due to medical condition or safety concerns K. Walk 150 feet 88-Not attempted due to medical condition or safety concerns L. Walking 10 feet on uneven surfaces 88-Not attempted due to medical condition or safety concerns M. 1 step (curb) 88-Not attempted due to medical condition or safety concerns N. 4 steps 88-Not attempted due to medical condition or safety concerns O. 12 steps 88-Not attempted due to medical condition or safety concerns P. Picking up object 88-Not attempted due to medical condition or safety concerns R. Wheel 50 feet with two turns 88-Not attempted due to medical condition or safety concerns S. Wheel 150 feet 88-Not attempted due to medical condition or safety concerns - Bladder and Bowel Bladder continence Bowel continence - Endurance Fair - Balance Fair - Safety Awareness Fair CURRENT FUNC. 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
[2021-04-27] MEDS: D5W 1,000 ML IV SCH (17:38)
[2021-04-27 18:11] LABS: Potassium 5.1 mmol/L (3.5-5.1)
[2021-04-27 18:12] LABS: Troponin High Sensitivity 127.5 pg/mL (<58.9)
[2021-04-27] MEDS: ATORVASTATIN 40 MG TAB PO SCH (19:52)
[2021-04-27] MEDS: DULOXETINE 30 MG CAP PO SCH (19:52)
--- NOTE | 2021-04-27 22:08 | CON ---
Date of Consultation: 04/27/2021 Reason For Consultation: Borderline elevation of troponin. History Of Present Illness: This is a 81-year-old female who is status post quadruple bypass surgery recently last month. She was transferred to the facility for inpatient rehab. However, as per mariza madison, she has not been eating and drinking very well and is having failure to thrive. I evaluated the patient by bedside and she is lethargic slightly, but denies having any chest pain. She was found to have DVT recently and she was on Eliquis. Past Medical History: As outlined above in the HPI. Coronary artery disease, end-stage renal diseas e, diabetes, CHF, CVA. Past Surgical History: Coronary artery bypass surgery. Medications: Reviewed. Refer consultation sheet for detailed list. Allergies: NO KNOWN DRUG ALLERGIES. Family History: No mention of coronary artery disease or cancer. Social History: Does not smoke or drink. Does not use any drugs. Review of Systems: All systems reviewed and they were negative except mentioned in HPI. Physical Examination: Vital Signs: Reviewed. Head and Neck: Pupils are equal and reactive to light. Intact eye movements. No JVD. No cervical lymphadenopathy. Neck is supple. Thyroid is not enlarged. Lungs: Clear to auscultation bilaterally. No rhonchi, rales, or crackles. No accessory muscle use. Heart: Regular rate and rhythm. No extra sounds. Abdomen: Soft, nontender. Bowel sounds positive. No organomegaly. No masses or hernia. No rigidi ty or rebound. Extremities: No clubbing, cyanosis. Intact pulses. Skin: No rashes. Neurologic: Alert, awake, oriented x3. No acute focal deficits appreciated. Lymph Nodes: No cervical adenopathy. Investigations: Hemoglobin is 8.4. Troponin highly sensitive was 142. Assessment And Recommendation: 1.Borderline elevated troponin, recent bypass surgery. Patient does not have any chest pain. EKG s howed paced rhythm. Trend 2 more sets of troponin. Obtain echocardiogram and further recommendation based on what the echo shows. 2.Coronary artery disease, status post cardiac bypass surgery. Wound healed very well. Patient jernigan s not have chest pain. Borderline elevated troponin will be worked up as outlined above. Thank you for the consult. /JENSEN Voice ID: [id number] Report ID: [id number]
[2021-04-28 00:11] LABS: Vitamin D 1,25-Dihydroxy Total 21 pg/mL (18-72); Vitamin D,1,25-OH2, D2 <8 pg/mL
--- NOTE | 2021-04-28 03:56 | PN ---
Date of Progress Note: 04/27/2021 History Of Present Illness: End-stage renal disease, on hemodialysis. Previously, patient was on peritoneal dialysis due to volume overload, congestive heart failure. Patient is on hemodialysis via temporary dialysis catheter. Patient has chronic hypotension. Recently, she was hospitalized at [facility] for COVID pneumonia. She has history of coronary artery and CABG. Today, she complained of generalized weakness. She denies nausea, vomiting . She has generalized pain and she is evaluated by primary team for acute coronary syndrome. Patient has chronic hypotension and intradialytic hypotension. Patient is on midodrine. Yesterday, midodrine was on hold due to the fact the blood pressure was normal, and today, blood pressure was low range. Systolic blood pressure was 105. Patient received midodrine. Patient was found to have marginal hyperkalemia, potassium of 5.1 and lab work will be re-evaluated. Dialysis currently is on hold due to typical chest pain and workup with is conducted by primary team and Cardiology. Echo is pending. CT scan of the chest did not show pulmonary edema. There is bilateral small pleural effusion present. There is no infiltrate. Blood cultures were obtained to rule out bacteremia. I spoke with dialysis nurse to obtain culture from the PD fluid. Review of Systems: Denies headache, vision changes. She is complaining of generalized weakness and she was medicated with Zofran nausea. Physical Examination: Lungs: Clear respirations bilaterally. Heart: S1, S2. Abdomen: Soft, benign. Extremities: Slight edema. Impression And Plan: 1. End-stage renal disease. Patient will have dialysis tomorrow. 2. Hyperkalemia. Reevaluate blood work. Continue low-potassium diet. Patient will have dialysis with 2 potassium dialysate and plan is to resume dialysis tomorrow. Patient received dialysis on Tuesday. 3. Hypertension. Patient is off blood pressure medication due to episodes of hypotension. 4. Chest pain. Continue management per primary team. Troponin level was ordered and pending. 5. Chronic kidney disease. Continue STEPHANI. 6. Secondary hyperparathyroidism. Phosphorus level is within normal limits. Continue to monitor. Patient may receive binders if phosphorus is greater than 5. EB/MODL Voice ID: [id number] Report ID: [id number] [facility]
[2021-04-28] MEDS: LEVOTHYROXINE SOD 0.025 MG TAB PO SCH (05:03)
[2021-04-28] MEDS: carvediloL 3.125 MG TAB PO SCH ×2 (05:04→17:08)
[2021-04-28] MEDS: INSULIN -REGULAR HUMAN 50 UNIT/0.5 ML ML SQ SCH ×4 (07:30→20:38)
[2021-04-28] MEDS: ONDANSETRON 4 MG (ODT) TAB PO PRN (07:33)
[2021-04-28] MEDS: PANTOPRAZOLE 40MG TABLET PO SCH ×2 (07:33→17:10)
[2021-04-28] MEDS: ZINC SULFATE 220 MG CAP PO SCH (08:00)
[2021-04-28] MEDS: FE SULF/FA/VIT B COMP & C TAB PO SCH (08:00)
[2021-04-28] MEDS: CRANBERRY FRUIT EXTRACT 400 MG CAP PO SCH ×2 (08:00→20:00)
[2021-04-28] MEDS: FERROUS SULFATE 325 MG TAB PO SCH (08:00)
[2021-04-28] MEDS: ASCORBIC ACID 500 MG TABLET PO SCH (08:00)
[2021-04-28] MEDS: INSULIN LISPRO 100 UNIT/1 ML SQ SCH ×3 (08:00→17:00)
[2021-04-28] MEDS: INSULIN GLARGINE 100 UNIT/ML SQ SCH (08:00)
[2021-04-28] MEDS: NEPRO SHAKE 237 ML CAN PO SCH ×3 (08:00→17:00)
[2021-04-28] MEDS: SODIUM CHLORIDE 0.9% 10ML INJ IV SCH ×2 (08:00→19:31)
[2021-04-28] MEDS: IPRATROPIUM BROM 0.5MG/2.5ML NEB PRN (08:15)
[2021-04-28] MEDS: MIDODRINE HCL 5 MG TABLET PO SCH ×2 (08:18→20:37)
[2021-04-28] MEDS: ASPIRIN 81 MG CHEWABLE TABLET PO SCH (08:18)
[2021-04-28] MEDS: CALCITROL 0.25 MCG CAP PO SCH (08:18)
[2021-04-28] MEDS: VITAMIN B COMPLEX 1 CAP PO SCH (08:18)
[2021-04-28] MEDS: APIXABAN 5 MG TABLET PO SCH ×2 (08:18→20:37)
[2021-04-28] MEDS: FUROSEMIDE 40 MG TABLET PO SCH (08:18)
--- NOTE | 2021-04-28 13:10 | ECHO ---
HEIGHT: 5 ft 5 in WEIGHT: 208 lb 0 oz DATE OF STUDY: 04/28/[address]: Ammon Madden 2-DIMENSIONAL: YES M.MODE: YES DOPPLER: YES COLOR FLOW: YES TDS: NO PORTABLE: NO DEFINITY: NO BUBBLE STUDY: NO DIAGNOSIS: ELEVATED TROPONIN CARDIAC HISTORY: CATHERIZATION: NO SURGERY: YES PROSTHETIC VALVE: NO PACEMAKER: NO MEASUREMENTS (cm) DIASTOLIC (NORMALS) SYSTOLIC (NORMALS) IVSd 1.3 (0.6-1.2) LA Diam 3.4 (1.9-4.0) LVEF 46% LVIDd 4.0 (3.5-5.7) LVIDs 3.1 (2.0-3.5) %FS 22% LVPWd 1.2 (0.6-1.2) Ao Diam 3.2 (2.0-3.7) 2 DIMENSIONAL ASSESSMENT: RIGHT ATRIUM: NORMAL LEFT ATRIUM: NORMAL RIGHT VENTRICLE: NORMAL LEFT VENTRICLE: NORMAL SIZE TRICUSPID VALVE: NORMAL MITRAL VALVE: NORMAL PULMONIC VALVE: NORMAL AORTIC VALVE: SCLEROSIS PERICARDIAL EFFUSION: NONE AORTIC ROOT: NORMAL LEFT VENTRICULAR WALL MOTION: MILD GLOBAL HYPOKINESIS. DOPPLER/COLOR FLOW: MILD TRICUSPID REGURGITATION. COMMENTS: MILD GLOBAL HYPOKINESIS. LEFT VENTRICULAR EJECTION FRACTION 46%. MILD TRICUSPID REGURGITATION. NORMAL RIGHT VENTRICULAR SYSTOLIC PRESSURE. NO EFFUSION. TECHNOLOGIST: Ottoniel VANCE
--- NOTE | 2021-04-28 14:15 | P.PN ---
Subjective Date of Service: 04/28/21 Chief Complaint: Weakness; fatigue; DVT; ESRD Subjective: No new changes (-More awake and conversant Admits to poor appetite, denies any nausea vomiting Daughters at bedside discussed withmultiple questions regarding overall care as well as recent declining intake explained) Physical Examination - Vital Signs Temperature: 96.4 F Blood Pressure: 131/60 Pulse: 72 Respirations: 19 Pulse Ox (%): 100 - Studies Laboratory Data (last 24 hrs) 04/27/21 17:12: Sodium 132 L, Potassium 5.1, BUN 76 H, Creatinine 4.35 H, Glucose 113 H Microbiology Data (last 24 hrs): 04/27/21 10:45 Blood - Blood Anaerobic Blood Culture - Final Assessment And Plan Discharge Plan: Home Physician Review: Patient Assessed, Agree with Above Assessment and Plan Physician Review Additional Text: General: Alert, In no apparent distress, frail-looking, awake HEENT: Atraumatic, PERRLA, on the nasal cannula O2 Neck: Supple, 2+ carotid pulse no bruit, No LAD, Without JVD or thyroid abnormality Respiratory: Mild decreased bibasilar creps Cardiovascular: Regular rate/rhythm, Normal S1 S2, Systolic murmur Gastrointestinal: Normal bowel sounds, Soft and benign, Musculoskeletal: No clubbing, No swelling, No tenderness Integumentary: No rashes Neurological: Sensation intact, Cranial nerves 3-12 intact, Abnormal gait, intact speech Lymphatics: No axilla or inguinal lymphadenopathy Laboratory Data (last 24 hrs) Impression/plan Anorexia/new onset depressionon Cymbalta Chronic borderline hypotensionstable, on chronic midodrine Persistent abdominal painnegative work-up with CT Status post recent CABG Recent Covid pneumonia with respiratory failurestatus [facility] Anemia of CKD ESRDstatus post failed PD, switched to hemodialysis now since last 1 week Mild elevated troponinstable Status post pacemaker Recent DVT on chronic anticoagulation with Eliquis Diabetes mellitus Plan Vitals remained stable, blood pressure remained stable with midodrine Continue D5W for intermittent hypoglycemia Increase p.o. intake encouraged, started on Nepro -Continue current midodrine dosage Follow-up with hemodialysis today Mild elevated troponin but stablemay be due to recent CABG, cardiology on board, follow-up pending echocardiogram, no new EKG changes Since stable blood pressure as well as no evidence of acute coronary syndrome, can resume acute PT/OT rehab services today -Anorexia and p.o. intake may be due to new onset depression since post CABG, although recent start of Cymbalta 4 days ago may be contributing to the decreased appetite -We will switch Cymbalta to Remeronfor increased appetite -Abdominal pain resolved now, CT shows no intra-abdominal pathology -Continue hemodialysis for bilateral pleural effusion control Continue current rehab care TSH mildly elevated but normal T4, likely due to euthyroid sick syndrome, continue current Synthroid dosage - Family discussed with, no urgent need for appetite stimulant including medication at this time, follow-up pending echocardiogram Continue in rehab for now 04/28/21 14:16 Time Spent Managing PTS Care (In Minutes): 35
--- NOTE | 2021-04-28 18:17 | PN ---
Date of Progress Note: 04/28/2021 Subjective: The patient was admitted after CABG for a cardiac rehab. The patient is maintaining goo d blood pressure. The patient complaining from abdominal pain. The patient was started on hemodialy sis to establish better volume control. Last dialysis was Tuesday with 3600 ultrafiltration. Physical Examination: Vital Signs: Blood pressure 131/60, pulse of 72, afebrile. Chest: Decreased entry bilateral base. Heart: S1, S2. Systolic murmur. Abdomen: Soft, nontender. Extremity: Plus edema, more prominent on the left side. Neurologic: Alert. No focality. Laboratory Data: WBC 7.7, H and H 8.4/24.7. Sodium of 132, potassium 5.1, bicarb 29, BUN 76, creati nine 4.3, GFR of 10, calcium 8.8. Current Medications: The patient on include; 1.Aspirin. 2.Midodrine 5 mg b.i.d. 3.Eliquis 5 mg b.i.d. 4.Epogen. 5.Oral iron. 6.Carvedilol 3.125. 7.Nitroglycerin. 8.Lasix 80 daily. 9.Pantoprazole. Assessment And Plan: 1.End-stage renal disease, over volume. I am going to continue dialysis. We will arrange for dialy sis today and we will try to establish better volume control and we will follow up. The patient like s to resume PD as outpatient. 2.Abdominal pain with the presence of PD catheter. We will ask the patient to do flush and since ce ll count is still not done as family not familiar with it, we will follow up with her center. 3.Hypertension. We will utilize blood pressure for more diuresis and ultrafiltration. Discontinue Lasix as the patient is anuric. 4.Coronary artery disease, status post coronary artery bypass graft. We will follow up the PT/OT. Follow up with Cardiology. MARILU/JENSEN Voice ID: [id number] Report ID: [id number]
--- NOTE | 2021-04-28 19:43 | R.PN ---
PROGRESS NOTES ENCOUNTER DATE AND TIME: 04/28/2021 19:37 (PIGMENT PRESSER) NAME NOEL REAL DATE OF : 1940 DATE OF ADMISSION: 04/16/2021 16:24 (PIGMENT PRESSER) ISCHEMIC CARDIOMYOPATHY CABG [id number] COMPLAINT: Cardiac debility s/p 4 vessel CABG. SUBJECTIVE: Pt denied any depression. Pt denied any Shortness of Breath. Cardiac debility, S/P 4 vessel CABG. WBC 7.7, Hgb 8.4. Business Improvement Manager 3.87, Na 134, glucose 115 to 158. UA: 1+ esterase, WBC 10-20, bacteria 20-50. Renal service is doing HD after a port was placed by general surgery. Repeat chest x-ray 04-20-21 shows mild interstitial pulmonary edema. No changes from interval exam. Patient states that pain is under control. Troponin I was elevated to 142.7, then decreased to 125.9. Note patient had 4-vessel CABG. She did no t have worsening chest pain. Cardiology is following the patient. Hep Bs antigen testing, nonreactive. ECHO: EF 46% with mild global hypokinesis. Therapy is held today. VITAL SIGNS Temperature: 97.8 F Resp: 16 Pulse: 66 SBP/DBP: 125/68 MEDICATION ALLERGIES: No Known Drug Allergies (NKDA) ENVIRONMENTAL ALLERGIES: - Substance Allergies None Known - Other Allergies None Known NURSING: - Shower allowing shower PRECAUTIONS: - Fall Precaution SAFTY AND FALL ACTIVITIES OOB only with supervision THERAPIES: - Dietary and Nutrition Adequate Nutrition. Nutritional Education. Nutritional Supplements. - Occupational Therapy Cognitive Retraining. Visual Perceptual Training. ADL Training. Adaptive Equipment. Evaluate and Glenny t. Safety Awareness. Transfer Training. Patient/Family Education. - Speech Therapy Cognitive Training. Expressive Language Skills. Memory Strategies. Receptive Language Skills. Speech Intelligibility Training. Evaluate and Treat. - Physical Therapy Mobility Training. Gait Training. Safety Awareness. Transfer Training. Balance Training. Evaluate and Treat. PHYSICAL EXAM - Gen Alert and awake Lying in bed No apparent distress Oriented to: person, time, and place - Skin Surgical sites on left and right legs shows good hemostasis. Mild to moderate size blisters on medial left and right thighs. No abnormalities - Eyes No abnormalities - ENMT No abnormalities - Neck No abnormalities - CVS RRR - Chest Chest incision is healing with good hemostasis. - Resp No wheezing - Abd Soft - GI nondistended Deferred - No abnormalities - Ext Moderate edema in both lower extremities. - MSK 4/5 weakness in both lower extremities. - Neuro No focal deficits - Psych Mild anxiety. ASSESSMENT: Pt. is a 80 yo Right-handed female.On 04/06/2021 she was admitted to [facility] with diagnosis ISCHEMI C CARDIOMYOPATHY CABG X4.Her impairment category is Cardiac 09 - Cardiac Disorders (09).Pre-morbidly , Pt. was independent/mod-I in Locomotion, Safety Awareness, Social Cognition, and Balance; and she h ad good Sphincter Control, Self-Care, Communication, and Endurance.Currently, she has deficits of Loc omotion, Safety Awareness, Social Cognition, Balance, Transfers Control, Sphincter Control, Self-Care , Communication, and Endurance.Pt. is now referred to [facility] for acute in- patient rehabilitation in order to maximize patient's functional independence in activities of daily living, strength, ROM, and mobility.- Rehab Goal Patient has realistic goal of being discharged at assistance level 7-Ind to reside at Home with Pt s elf. MDM/PLAN: - Physical Therapy Gait dysfunction - to improve, our physical therapists will perform initial evaluation of pt's statu s upon admission and devise an individualized program for Gait Training, and Wheel Chair mobility Inability to transfer - to improve, our physical therapists will perform initial evaluation of pt's status upon admission and devise an individualized program for Bed mobility Need for home safety evaluation - to improve, our physical therapists will perform initial evaluatio n of pt's status upon admission and devise an individualized program for Home Evaluation Need in caregiver upon discharge - to improve, our physical therapists will perform initial evaluati on of pt's status upon admission and devise an individualized program for Caregiver Training New precaution - to improve, our physical therapists will perform initial evaluation of pt's status upon admission and devise an individualized program for Patient precaution education Edema - to improve, our physical therapists will perform initial evaluation of pt's status upon admi ssion and devise an individualized program for Elevation Training, and Lymphedema Therapy Poor balance - to improve, our physical therapists will perform initial evaluation of pt's status up on admission and devise an individualized program for Balance Training Poor endurance - to improve, our physical therapists will perform initial evaluation of pt's status upon admission and devise an individualized program for Endurance Training Weakness - to improve, our physical therapists will perform initial evaluation of pt's status upon a dmission and devise an individualized program for Aquatic Therapy, Neuromuscular Reeducation, and Str engthening Achieving independence - to improve, our physical therapists will perform initial evaluation of pt's status upon admission and devise an individualized program for Community Reintegration Activities - Occupational Therapy ADL deficits - to improve, our occupation therapists will perform initial evaluation of pt's status upon admission and devise an individualized program for Bathing, Bed mobility, Community Reintegratio n, Cooking, Dressing, Eating, Fine Motor Skills, Grooming, Homemaking, Kitchen Mobility, Laundry, Pat ient Education, Safety Awareness, Splinting - Positioning, Transfers(Toilet, Tub, Shower), and Wheel Chair Management Cognitive deficits - to improve, our occupation therapists will perform initial evaluation of pt's s tatus upon admission and devise an individualized program for Cognition - orientation Need for nurse wound care - to improve, our occupation therapists will perform initial evaluation of pt's status upon admission and devise an individualized program for Caregiver Training Weakness - to improve, our occupation therapists will perform initial evaluation of pt's status upon admission and devise an individualized program for Aquatic Therapy, Balance, Endurance, UE ROM, and UE strengthening - Other See attached MAR (Medication Administration Record) - Diet Type Continue Regular - Diet - Liquid Texture Continue Regular - Tube Feed Continue N/A - Fall Precaution SAFTY AND FALL - Diet - Solid Texture Continue Regular - Shower allowing shower FUNCTIONAL STATUS: UPDATED AT WEEKLY TEAM CONFERENCE - Bladder Same accident frequency: 7-Ind - No accidents in the past 7 days - Bowel Same accident frequency: 7-Ind - No accidents in the past 7 days - Walking Same score based on distance walked: 0(N/A) Same score based on distance walked: 1(<=50ft) - Wheelchair Same score based on distance traveled: 0(N/A) FUNCTIONAL STATUS: - Self-Care A. Eating Ind D. Dressing - Upper sup E. Dressing - Lower [place] F. Toileting [place] - Sphincter Control G. Bladder control Yadira H. Bowel control Yadira - Transfers Control K. Tub/Shower modA - Locomotion L. Walk/Wheelchair (B) maxA M. Stairs maxA - Communication N. Comprehension (B) Yadira O. Expression (B) Yadira - Social Cognition P. Social Interaction Yadira Q. Problem Solving Yadira R. Memory Yadira - Endurance Fair - Balance Fair - Safety Awareness Fair QI SCORES: - Self-Care A. Eating 03-Partial/moderate assistance B. Oral hygiene 03-Partial/moderate assistance C. Toileting hygiene 03-Partial/moderate assistance E. Shower/bathe self 03-Partial/moderate assistance F. Upper body dressing 03-Partial/moderate assistance G. Lower body dressing 03-Partial/moderate assistance H. Putting on/taking off footwear 88-Not attempted due to medical condition or safety concerns - Mobility A. Roll left and right 04-Supervision or touching assistance B. Sit to lying 03-Partial/moderate assistance C. Lying to sitting on side of bed 03-Partial/moderate assistance D. Sit to stand 03-Partial/moderate assistance E. Chair/[id number]-[id number] transfer 03-Partial/moderate assistance F. Toilet transfer 03-Partial/moderate assistance G. Car transfer 88-Not attempted due to medical condition or safety concerns I. Walk 10 feet 03-Partial/moderate assistance J. Walk 50 feet with two turns 88-Not attempted due to medical condition or safety concerns K. Walk 150 feet 88-Not attempted due to medical condition or safety concerns L. Walking 10 feet on uneven surfaces 88-Not attempted due to medical condition or safety concerns M. 1 step (curb) 88-Not attempted due to medical condition or safety concerns N. 4 steps 88-Not attempted due to medical condition or safety concerns O. 12 steps 88-Not attempted due to medical condition or safety concerns P. Picking up object 88-Not attempted due to medical condition or safety concerns R. Wheel 50 feet with two turns 88-Not attempted due to medical condition or safety concerns S. Wheel 150 feet 88-Not attempted due to medical condition or safety concerns - Bladder and Bowel Bladder continence Bowel continence - Endurance Fair - Balance Fair - Safety Awareness Fair CURRENT FUNC. DEFICITS: Self-Care, Mobility, Endurance, Balance, and Safety Awareness SIGNATURE PANEL: (PIGMENT PRESSER)
[2021-04-28] MEDS: MIRTAZAPINE 15 MG TAB PO SCH (20:38)
[2021-04-28] MEDS: ATORVASTATIN 40 MG TAB PO SCH (20:38)
[2021-04-29] MEDS: D5W 1,000 ML IV SCH (02:22)
[2021-04-29 04:51] LABS: Albumin 2.6 g/dL (3.4-5.0); Bilirubin Total 0.9 mg/dL (0.2-1.0); Potassium 4.7 mmol/L (3.5-5.1); Protein, Total 6.2 g/dL (6.4-8.2)
[2021-04-29] MEDS: LEVOTHYROXINE SOD 0.025 MG TAB PO SCH (05:08)
[2021-04-29] MEDS: carvediloL 3.125 MG TAB PO SCH ×2 (05:08→17:19)
[2021-04-29] MEDS: INSULIN -REGULAR HUMAN 50 UNIT/0.5 ML ML SQ SCH ×4 (07:28→20:05)
[2021-04-29] MEDS: INSULIN GLARGINE 100 UNIT/ML SQ SCH (08:00)
[2021-04-29] MEDS: ASCORBIC ACID 500 MG TABLET PO SCH (08:00)
[2021-04-29] MEDS: FERROUS SULFATE 325 MG TAB PO SCH (08:00)
[2021-04-29] MEDS: CRANBERRY FRUIT EXTRACT 400 MG CAP PO SCH ×2 (08:00→20:05)
[2021-04-29] MEDS: VITAMIN B COMPLEX 1 CAP PO SCH (08:00)
[2021-04-29] MEDS: ZINC SULFATE 220 MG CAP PO SCH (08:00)
[2021-04-29] MEDS: FE SULF/FA/VIT B COMP & C TAB PO SCH (08:00)
[2021-04-29] MEDS: NEPRO SHAKE 237 ML CAN PO SCH ×3 (08:00→17:21)
[2021-04-29] MEDS: SODIUM CHLORIDE 0.9% 10ML INJ IV SCH ×2 (08:00→20:05)
[2021-04-29] MEDS: INSULIN LISPRO 100 UNIT/1 ML SQ SCH ×3 (08:00→17:00)
[2021-04-29] MEDS: ASPIRIN 81 MG CHEWABLE TABLET PO SCH (08:16)
[2021-04-29] MEDS: APIXABAN 5 MG TABLET PO SCH (08:17)
[2021-04-29] MEDS: PANTOPRAZOLE 40MG TABLET PO SCH ×2 (08:17→17:19)
[2021-04-29] MEDS: CALCITROL 0.25 MCG CAP PO SCH (08:17)
[2021-04-29] MEDS: MIDODRINE HCL 5 MG TABLET PO SCH ×2 (08:17→20:05)
--- NOTE | 2021-04-29 15:16 | RAD REPORT ---
EXAM DESCRIPTION: RAD - Chest Single View - 04/29/2021 3:07 pm CLINICAL HISTORY: compare with previous xray Chest pain. COMPARISON: Chest Single View dated 04/27/2021; Abdomen 1 View (KUB) dated 04/26/2021; Chest Single Vi ew dated 04/23/2021; Chest Single View dated 04/19/2021; Abdomen Pelvis Wo Contrast dated 04/27/2021 FINDINGS: Portable technique limits examination quality. Moderate right pleural effusion appears similar in size relative to prior study. Patchy opacities in both lung bases, greater on the right likely atelectasis. The heart is enlarged with changes of a joselo or CABG. Dual lead pacer device is in place. Right-sided venous catheter tip in the SVC.
--- NOTE | 2021-04-29 15:19 | R.PN ---
PROGRESS NOTES ENCOUNTER DATE AND TIME: 04/29/2021 15:15 (MAORI LIAISON ADVISER) NAME NOEL REAL DATE OF : 1940 DATE OF ADMISSION: 04/16/2021 16:24 (MAORI LIAISON ADVISER) ISCHEMIC CARDIOMYOPATHY CABG [id number] COMPLAINT: Cardiac debility s/p 4 vessel CABG. SUBJECTIVE: Pt denied any depression. Pt denied any Shortness of Breath. Cardiac debility, S/P 4 vessel CABG. WBC 7.7, Hgb 8.4. Counterintelligence/Humint Specialist 3.87, Na 134, glucose 115 to 158. UA: 1+ esterase, WBC 10-20, bacteria 20-50. Renal service is doing HD after a port was placed by general surgery. Repeat chest x-ray 04-20-21 shows mild interstitial pulmonary edema. No changes from interval exam. Patient states that pain is under control. Troponin I was elevated to 142.7, then decreased to 125.9. Note patient had 4-vessel CABG. She did no t have worsening chest pain. Cardiology is following the patient. Hep Bs antigen testing, nonreactive. ECHO: EF 46% with mild global hypokinesis. Ambulated 34' with minimum assistance using a rolling walker. Blood pressure was 114/75 while standin g. VITAL SIGNS Temperature: 97.6 F Resp: 15 Pulse: 81 SBP/DBP: 110/46 MEDICATION ALLERGIES: No Known Drug Allergies (NKDA) ENVIRONMENTAL ALLERGIES: - Substance Allergies None Known - Other Allergies None Known NURSING: - Shower allowing shower PRECAUTIONS: - Fall Precaution SAFTY AND FALL ACTIVITIES OOB only with supervision THERAPIES: - Dietary and Nutrition Adequate Nutrition. Nutritional Education. Nutritional Supplements. - Occupational Therapy Cognitive Retraining. Visual Perceptual Training. ADL Training. Adaptive Equipment. Evaluate and Glenny t. Safety Awareness. Transfer Training. Patient/Family Education. - Speech Therapy Cognitive Training. Expressive Language Skills. Memory Strategies. Receptive Language Skills. Speech Intelligibility Training. Evaluate and Treat. - Physical Therapy Mobility Training. Gait Training. Safety Awareness. Transfer Training. Balance Training. Evaluate and Treat. PHYSICAL EXAM - Gen Alert and awake Lying in bed No apparent distress Oriented to: person, time, and place - Skin Surgical sites on left and right legs shows good hemostasis. Mild to moderate size blisters on medial left and right thighs. No abnormalities - Eyes No abnormalities - ENMT No abnormalities - Neck No abnormalities - CVS RRR - Chest Chest incision is healing with good hemostasis. - Resp No wheezing - Abd Soft - GI nondistended Deferred - No abnormalities - Ext Moderate edema in both lower extremities. - MSK 4/5 weakness in both lower extremities. - Neuro No focal deficits - Psych Mild anxiety. ASSESSMENT: Pt. is a 80 yo Right-handed female.On 04/06/2021 she was admitted to [facility] with diagnosis ISCHEMI C CARDIOMYOPATHY CABG X4.Her impairment category is Cardiac 09 - Cardiac Disorders (09).Pre-morbidly , Pt. was independent/mod-I in Locomotion, Safety Awareness, Social Cognition, and Balance; and she h ad good Sphincter Control, Self-Care, Communication, and Endurance.Currently, she has deficits of Loc omotion, Safety Awareness, Social Cognition, Balance, Transfers Control, Sphincter Control, Self-Care , Communication, and Endurance.Pt. is now referred to [facility] for acute in- patient rehabilitation in order to maximize patient's functional independence in activities of daily living, strength, ROM, and mobility.- Rehab Goal Patient has realistic goal of being discharged at assistance level 7-Ind to reside at Home with Pt s elf. MDM/PLAN: - Physical Therapy Gait dysfunction - to improve, our physical therapists will perform initial evaluation of pt's statu s upon admission and devise an individualized program for Gait Training, and Wheel Chair mobility Inability to transfer - to improve, our physical therapists will perform initial evaluation of pt's status upon admission and devise an individualized program for Bed mobility Need for home safety evaluation - to improve, our physical therapists will perform initial evaluatio n of pt's status upon admission and devise an individualized program for Home Evaluation Need in caregiver upon discharge - to improve, our physical therapists will perform initial evaluati on of pt's status upon admission and devise an individualized program for Caregiver Training New precaution - to improve, our physical therapists will perform initial evaluation of pt's status upon admission and devise an individualized program for Patient precaution education Edema - to improve, our physical therapists will perform initial evaluation of pt's status upon admi ssion and devise an individualized program for Elevation Training, and Lymphedema Therapy Poor balance - to improve, our physical therapists will perform initial evaluation of pt's status up on admission and devise an individualized program for Balance Training Poor endurance - to improve, our physical therapists will perform initial evaluation of pt's status upon admission and devise an individualized program for Endurance Training Weakness - to improve, our physical therapists will perform initial evaluation of pt's status upon a dmission and devise an individualized program for Aquatic Therapy, Neuromuscular Reeducation, and Str engthening Achieving independence - to improve, our physical therapists will perform initial evaluation of pt's status upon admission and devise an individualized program for Community Reintegration Activities - Occupational Therapy ADL deficits - to improve, our occupation therapists will perform initial evaluation of pt's status upon admission and devise an individualized program for Bathing, Bed mobility, Community Reintegratio n, Cooking, Dressing, Eating, Fine Motor Skills, Grooming, Homemaking, Kitchen Mobility, Laundry, Pat ient Education, Safety Awareness, Splinting - Positioning, Transfers(Toilet, Tub, Shower), and Wheel Chair Management Cognitive deficits - to improve, our occupation therapists will perform initial evaluation of pt's s tatus upon admission and devise an individualized program for Cognition - orientation Need for career and transition teacher - to improve, our occupation therapists will perform initial evaluation of pt's status upon admission and devise an individualized program for Caregiver Training Weakness - to improve, our occupation therapists will perform initial evaluation of pt's status upon admission and devise an individualized program for Aquatic Therapy, Balance, Endurance, UE ROM, and UE strengthening - Other See attached MAR (Medication Administration Record) - Diet Type Continue Regular - Diet - Liquid Texture Continue Regular - Tube Feed Continue N/A - Fall Precaution SAFTY AND FALL - Diet - Solid Texture Continue Regular - Shower allowing shower FUNCTIONAL STATUS: UPDATED AT WEEKLY TEAM CONFERENCE - Bladder Same accident frequency: 7-Ind - No accidents in the past 7 days - Bowel Same accident frequency: 7-Ind - No accidents in the past 7 days - Walking Same score based on distance walked: 0(N/A) Same score based on distance walked: 1(<=50ft) - Wheelchair Same score based on distance traveled: 0(N/A) FUNCTIONAL STATUS: - Self-Care A. Eating Ind D. Dressing - Upper sup E. Dressing - Lower [place] F. Toileting [place] - Sphincter Control G. Bladder control Yadira H. Bowel control Yadira - Transfers Control K. Tub/Shower modA - Locomotion L. Walk/Wheelchair (B) maxA M. Stairs maxA - Communication N. Comprehension (B) Yadira O. Expression (B) Yadira - Social Cognition P. Social Interaction Yadira Q. Problem Solving Yadira R. Memory Yadira - Endurance Fair - Balance Fair - Safety Awareness Fair QI SCORES: - Self-Care A. Eating 03-Partial/moderate assistance B. Oral hygiene 03-Partial/moderate assistance C. Toileting hygiene 03-Partial/moderate assistance E. Shower/bathe self 03-Partial/moderate assistance F. Upper body dressing 03-Partial/moderate assistance G. Lower body dressing 03-Partial/moderate assistance H. Putting on/taking off footwear 88-Not attempted due to medical condition or safety concerns - Mobility A. Roll left and right 04-Supervision or touching assistance B. Sit to lying 03-Partial/moderate assistance C. Lying to sitting on side of bed 03-Partial/moderate assistance D. Sit to stand 03-Partial/moderate assistance E. Chair/[id number] transfer 03-Partial/moderate assistance F. Toilet transfer 03-Partial/moderate assistance G. Car transfer 88-Not attempted due to medical condition or safety concerns I. Walk 10 feet 03-Partial/moderate assistance J. Walk 50 feet with two turns 88-Not attempted due to medical condition or safety concerns K. Walk 150 feet 88-Not attempted due to medical condition or safety concerns L. Walking 10 feet on uneven surfaces 88-Not attempted due to medical condition or safety concerns M. 1 step (curb) 88-Not attempted due to medical condition or safety concerns N. 4 steps 88-Not attempted due to medical condition or safety concerns O. 12 steps 88-Not attempted due to medical condition or safety concerns P. Picking up object 88-Not attempted due to medical condition or safety concerns R. Wheel 50 feet with two turns 88-Not attempted due to medical condition or safety concerns S. Wheel 150 feet 88-Not attempted due to medical condition or safety concerns - Bladder and Bowel Bladder continence Bowel continence - Endurance Fair - Balance Fair - Safety Awareness Fair [facility] DEFICITS: Self-Care, Mobility, Endurance, Balance, and Safety Awareness SIGNATURE PANEL: (MAORI LIAISON ADVISER)
--- NOTE | 2021-04-29 17:20 | RAD REPORT ---
EXAM DESCRIPTION: US - Extremity Venous Uni Ltd - 04/29/2021 5:02 pm CLINICAL HISTORY: compare with previous test Leg swelling and edema. COMPARISON: Extrem Venous W Compress Bryant dated 04/24/2021 FINDINGS: Left lower extremity venous system was interrogated with Doppler technique. Normal flow, c ompressibility and augmentation was noted. There is no DVT present. IMPRESSION: No evidence of left lower extremity deep venous thrombosis.
[2021-04-29] MEDS: ATORVASTATIN 40 MG TAB PO SCH (20:05)
[2021-04-29] MEDS: APIXABAN 2.5 MG TABLET PO SCH (20:05)
[2021-04-29] MEDS: MIRTAZAPINE 15 MG TAB PO SCH (20:05)
[2021-04-29] MEDS: EPOETIN ALFA-EPBX 10,000 UNIT/ML VIAL IV SCH (20:08)
--- NOTE | 2021-04-29 21:59 | PN ---
Date of Progress Note: 04/29/2021 Subjective: The patient was admitted after cardiac surgery for cardiac rehab. The patient been dial yzed almost on a daily basis to establish better volume control. The patient still complaining from shortness of breath today. Physical Examination: Vital Signs: When I saw the patient, the patient sitting in the chair with blood pressure of 108/68, pulse of 88. Chest: Crackles bilateral. Heart: S1, S2. Systolic murmur. Abdomen: Soft, nontender. Extremities: +1 edema. Neurological: Alert and oriented x3. No focal. Laboratory Data: H and H of 8.4/24.2. Sodium 133, potassium 4.7, bicarb 29, BUN 47, creatinine 3.4, calcium of 8. Current Medications: The patient on include: 1.Aspirin. 2.Eliquis. 3.Epogen. 4.Carvedilol. 5.Atorvastatin. 6.Nitroglycerin. 7.Ipratropium. Assessment And Plan: 1.End-stage renal disease, over volume. We will continue the patient on dialysis 3 times a week. T he patient interested to switch back to PD after discharge. We will follow up. 2.Hypertension, controlled, optimal. We will keep utilizing blood pressure for more ultrafiltration . 3.Congestive heart failure, coronary artery disease. I am going to go ahead and get therapeutic alana st x-ray for better evaluation of the fluid status. We will continue challenging the patient. 4.Anemia of chronic kidney disease. I am going to go ahead and increase her Epogen to 6000. 5.Deconditioning. Continue PT/OT. MARILU/JENSEN Voice ID: [id number] Report ID: [id number]
[2021-04-29] MEDS: IPRATROPIUM BROM 0.5MG/2.5ML NEB PRN (22:12)
[2021-04-30] MEDS: IPRATROPIUM BROM 0.5MG/2.5ML NEB PRN ×2 (02:48→08:25)
[2021-04-30] MEDS: LEVOTHYROXINE SOD 0.025 MG TAB PO SCH (05:06)
[2021-04-30] MEDS: carvediloL 3.125 MG TAB PO SCH ×2 (05:06→17:27)
[2021-04-30 06:36] LABS: Absolute Lymphocytes (CBC) 0.5 K/uL (0.7-4.9); Hematocrit 21.6 % (36.0-45.0); Lymphocytes % 7.6 % (15.3-44.8); MPV 6.5 fL (7.6-11.3); RBC Red Blood Cell Count 2.32 M/uL (3.86-4.86)
[2021-04-30 06:50] LABS: Albumin 2.5 g/dL (3.4-5.0); Bilirubin Total 0.8 mg/dL (0.2-1.0); Magnesium 2.6 mg/dL (1.8-2.4); Potassium 4.9 mmol/L (3.5-5.1); Prealbumin 23.1 mg/dL (20-40); Protein, Total 5.8 g/dL (6.4-8.2)
[2021-04-30] MEDS: PANTOPRAZOLE 40MG TABLET PO SCH ×2 (07:23→16:30)
[2021-04-30] MEDS: INSULIN -REGULAR HUMAN 50 UNIT/0.5 ML ML SQ SCH ×4 (07:26→19:59)
[2021-04-30] MEDS: ASCORBIC ACID 500 MG TABLET PO SCH (08:00)
[2021-04-30] MEDS: ZINC SULFATE 220 MG CAP PO SCH (08:00)
[2021-04-30] MEDS: CRANBERRY FRUIT EXTRACT 400 MG CAP PO SCH (08:00)
[2021-04-30] MEDS: SODIUM CHLORIDE 0.9% 10ML INJ IV SCH ×2 (08:00→19:58)
--- NOTE | 2021-04-30 08:22 | RAD REPORT ---
EXAM DESCRIPTION: US - Extremity Venous Uni Ltd - 04/30/2021 12:11 am CLINICAL HISTORY: compare with previous test Leg swelling and edema. COMPARISON: Extremity Venous Uni Ltd dated 04/29/2021 FINDINGS: Right lower extremity venous system was interrogated with Doppler technique. Normal flow, compressibility and augmentation was noted. There is no DVT present. IMPRESSION: No evidence of right lower extremity deep venous thrombosis.
[2021-04-30] MEDS: ASPIRIN EC 81 MG TAB PO SCH (08:40)
[2021-04-30] MEDS: APIXABAN 2.5 MG TABLET PO SCH ×2 (08:41→19:59)
[2021-04-30] MEDS: MIDODRINE HCL 5 MG TABLET PO SCH ×2 (08:41→19:59)
[2021-04-30] MEDS: CALCITROL 0.25 MCG CAP PO SCH (08:46)
[2021-04-30] MEDS: FERROUS SULFATE 325 MG TAB PO SCH (08:46)
[2021-04-30] MEDS: NEPRO SHAKE 237 ML CAN PO SCH ×3 (08:47→17:00)
[2021-04-30] MEDS: INSULIN LISPRO 100 UNIT/1 ML SQ SCH ×3 (09:12→17:00)
[2021-04-30] MEDS: INSULIN GLARGINE 100 UNIT/ML SQ SCH (09:12)
[2021-04-30] MEDS: FE SULF/FA/VIT B COMP & C TAB PO SCH (11:11)
[2021-04-30] MEDS: VITAMIN B COMPLEX 1 CAP PO SCH (11:11)
[2021-04-30 13:47] LABS: C.diff Antigen/Toxin Ag neg : Tox neg (NEG : NEG)
--- NOTE | 2021-04-30 17:45 | PN ---
Date of Progress Note: 04/30/2021 Subjective: The patient was admitted for cardiac rehab after CABG. The patient starts participating on physical therapy. Physical Examination: Vital Signs: Blood pressure 121/61, pulse of 75, afebrile. The patient had good urine output. Chest: Crackles bilateral. Heart: S1, S2. Systolic murmur. Abdomen: Soft, nontender. Extremities: +1 edema left more than the right. Laboratory Data: Chest x-ray still has cardiomegaly with congestion with right- sided pleural effusion. WBC 7.3, H and H 7.5/21.6. Sodium 130, potassium 4.9, bicarb 27, BUN 71, creatinine 4.8, calcium 8.1, magnesium 2.6, albumin 2.5. Current Medications: The patient on include: 1. Midodrine. 2. Aspirin. 3. Epogen. 4. Atorvastatin. 5. Carvedilol b.i.d. 6. Zinc sulfate. 7. Ipratropium. Assessment And Plan: 1. End-stage renal disease with over volume. We will continue challenging the patient. We will arrange for blood transfusion tomorrow with dialysis and we will ultrafiltrate. 2. Hypertension, currently blood pressure on the lower side. We will try to utilize blood pressure for more ultrafiltration. 3. Anemia of chronic kidney disease/I am going to continue STEPHANI. 4. Secondary hyperparathyroidism, stable. 5. Coronary artery disease, congestive heart failure. We will try to establish better volume control with dialysis. 6. Cardiac rehab post CABG. We will follow up with Dr. Goetz. MARILU/JENSEN Voice ID: [id number] Report ID: [id number]
[2021-04-30] MEDS: ATORVASTATIN 40 MG TAB PO SCH (19:59)
[2021-04-30] MEDS: MIRTAZAPINE 15 MG TAB PO SCH (19:59)
[2021-05-01] MEDS: LEVOTHYROXINE SOD 0.025 MG TAB PO SCH (05:18)
[2021-05-01] MEDS: carvediloL 3.125 MG TAB PO SCH ×2 (05:18→17:23)
[2021-05-01] MEDS: INSULIN -REGULAR HUMAN 50 UNIT/0.5 ML ML SQ SCH ×4 (07:30→20:35)
[2021-05-01 07:31] LABS: Albumin 2.7 g/dL (3.4-5.0); Bilirubin Total 1.4 mg/dL (0.2-1.0); Potassium 3.9 mmol/L (3.5-5.1); Protein, Total 6.3 g/dL (6.4-8.2)
[2021-05-01] MEDS: PANTOPRAZOLE 40MG TABLET PO SCH ×2 (07:37→16:53)
[2021-05-01] MEDS: ONDANSETRON 4 MG (ODT) TAB PO PRN (07:37)
[2021-05-01] MEDS: INSULIN GLARGINE 100 UNIT/ML SQ SCH (08:24)
[2021-05-01] MEDS: INSULIN LISPRO 100 UNIT/1 ML SQ SCH ×3 (08:25→16:52)
[2021-05-01] MEDS: ZINC SULFATE 220 MG CAP PO SCH (08:25)
[2021-05-01] MEDS: VITAMIN B COMPLEX 1 CAP PO SCH (08:26)
[2021-05-01] MEDS: FERROUS SULFATE 325 MG TAB PO SCH (08:26)
[2021-05-01] MEDS: CALCITROL 0.25 MCG CAP PO SCH (08:26)
[2021-05-01] MEDS: APIXABAN 2.5 MG TABLET PO SCH ×2 (08:26→20:34)
[2021-05-01] MEDS: FE SULF/FA/VIT B COMP & C TAB PO SCH (08:26)
[2021-05-01] MEDS: ASPIRIN EC 81 MG TAB PO SCH (08:26)
[2021-05-01] MEDS: MIDODRINE HCL 5 MG TABLET PO SCH ×2 (08:26→20:34)
[2021-05-01] MEDS: NEPRO SHAKE 237 ML CAN PO SCH ×3 (08:27→17:23)
[2021-05-01] MEDS: SODIUM CHLORIDE 0.9% 10ML INJ IV SCH ×2 (08:27→20:00)
--- NOTE | 2021-05-01 09:49 | P.RH.PN ---
Estimated Length of Stay: 22 Expected Discharge Date: 05/06/21 Discharge Disposition Plan: Home Family Support: Yes Custodial Goal: Mobility, Transfers, Self Care Vital Signs: Last Vital Signs Temp 98.0 F 05/01/21 08:00 Pulse 81 05/01/21 08:00 Resp 16 05/01/21 08:00 BP 131/53 L 05/01/21 08:00 Pulse Ox 96 05/01/21 08:00 Laboratory: Laboratory Last Values WBC 6.30 K/uL (4.3-10.9) D 04/30/21 06:23 RBC 2.32 M/uL (3.86-4.86) L 04/30/21 06:23 Hgb 7.5 g/dL (12.0-15.0) L 04/30/21 06:23 Hct 21.6 % (36.0-45.0) L 04/30/21 06:23 MCV 93.2 fL (80-100) 04/30/21 06:23 MCH 32.4 pg (27.0-35.0) 04/30/21 06:23 MCHC 34.8 g/dL (32.0-36.0) 04/30/21 06:23 RDW 21.8 % (12.1-15.2) H D 04/30/21 06:23 Plt Count 109 K/uL (152-406) L 04/30/21 06:23 MPV 6.5 fL (7.6-11.3) L 04/30/21 06:23 Neutrophils % 83.6 % (41.7-73.7) H 04/30/21 06:23 Lymphocytes % 7.6 % (15.3-44.8) L 04/30/21 06:23 Monocytes % 7.6 % (3.3-12.3) 04/30/21 06:23 Eosinophils % 0.9 % (0-4.4) 04/30/21 06:23 Basophils % 0.3 % (0-1.3) 04/30/21 06:23 Absolute Neutrophils 5.2 K/uL (1.8-8.0) 04/30/21 06:23 Segmented Neutrophils 85 % (40-80) H 04/20/21 06:36 Band Neutrophils 2 % (0-1) H 04/20/21 06:36 Absolute Lymphocytes 0.5 K/uL (0.7-4.9) L 04/30/21 06:23 Lymphocytes 5 % (15-42) L 04/20/21 06:36 Monocytes PEST CONTROL SUPERVISOR 04/20/21 06:36 Absolute Monocytes 0.5 K/uL (0.1-1.3) 04/30/21 06:23 Eosinophils 2 % (0-3) 04/17/21 03:55 Absolute Eosinophils 0.1 K/uL (0-0.5) 04/30/21 06:23 Basophils 1 % (0-1) 04/17/21 03:55 Absolute Basophils 0.0 K/uL (0-0.5) 04/30/21 06:23 Nucleated RBCs 1 /100WBC 04/17/21 03:55 Smudge Cells Present 04/20/21 06:36 Toxic Granulation 2+ 04/17/21 03:55 Platelet Estimate Adeq 04/24/21 05:38 Polychromasia Slight 04/20/21 06:36 Hypochromasia 1+ 04/20/21 06:36 Anisocytosis Slight 04/20/21 06:36 Morphology Comment Not seen (NOT SEEN) 04/24/21 05:38 ESR Westergren 91 mm/HR (0-30) H 04/26/21 06:10 PT 13.5 SECONDS (9.5-12.5) H 04/20/21 06:36 INR 1.17 04/20/21 06:36 Sodium 135 mmol/L (136-145) L 05/01/21 06:58 Potassium 3.9 mmol/L (3.5-5.1) 05/01/21 06:58 Chloride 100 mmol/L (98-107) 05/01/21 06:58 Carbon Dioxide 28 mmol/L (21-32) 05/01/21 06:58 BUN 40 mg/dL (7-18) H D 05/01/21 06:58 Creatinine 3.57 mg/dL (0.55-1.3) H D 05/01/21 06:58 Estimated GFR 12 mL/min (=/>90) L 05/01/21 06:58 Glucose 137 mg/dL (74-106) H 05/01/21 06:58 POC Glucose 146 mg/dL (65-120) H 05/01/21 07:43 Calcium 8.4 mg/dL (8.5-10.1) L 05/01/21 06:58 Phosphorus 4.5 mg/dL (2.5-4.9) D 04/27/21 05:10 Magnesium 2.6 mg/dL (1.8-2.4) H 04/30/21 06:23 Iron 78.0 ug/dL (50-170) 04/26/21 06:10 TIBC 209 ug/dL (250-460) L 04/23/21 06:28 Transferrin 149 mg/dL (200-360) L 04/23/21 06:28 Transferrin % Sat 39.2 % (20.0-50.0) 04/23/21 06:28 Ferritin 1068.7 ng/mL (8-388) H 04/23/21 06:28 Total Bilirubin 1.4 mg/dL (0.2-1.0) H 05/01/21 06:58 AST 17 U/L (15-37) 05/01/21 06:58 ALT 14 U/L (12-78) 05/01/21 06:58 Alkaline Phosphatase 95 U/L (45-117) 05/01/21 06:58 Creatine Kinase 23 U/L (26-192) L 04/26/21 06:10 CK-MB (CK-2) 3.5 ng/mL (1.0-3.6) 04/27/21 10:56 Troponin I High Sens 125.90 pg/mL (<58.9) H* 04/27/21 23:03 NT-Pro-B Natriuret Pep 33804 pg/mL (<450) H 04/26/21 06:10 Serum Total Protein 6.3 g/dL (6.4-8.2) L 05/01/21 06:58 Albumin 2.7 g/dL (3.4-5.0) L 05/01/21 06:58 Globulin 3.6 g/dL (2.3-3.5) H 05/01/21 06:58 Albumin/Globulin Ratio 0.8 (1.1-1.8) L 05/01/21 06:58 Prealbumin 23.1 mg/dL (20-40) 04/30/21 06:23 Vitamin B12 1125 pg/mL (193-986) H 04/26/21 06:10 Vit D 1,25-Dihyd Total 21 pg/mL (18-72) 04/23/21 06:28 1,25 Dihydroxy Vit D2 <8 pg/mL 04/23/21 06:28 1,25 Dihydroxy Vit D3 21 pg/mL 04/23/21 06:28 Serum Folate 15.4 ng/mL (3.1-17.5) 04/26/21 06:10 Procalcitonin 0.48 ng/mL (<0.050) H 04/26/21 06:10 TSH 4.250 uIU/mL (0.360-3.740) H 04/26/21 06:10 Free T4 1.23 ng/dL (0.76-1.46) 04/26/21 06:10 PTH Intact 37.8 pg/mL (18.4-80.1) 04/23/21 06:28 Cortisol 22.70 ug/dL (SEE COMMENT) 04/26/21 06:10 Urine Color Yellow (Yellow) 04/17/21 07:30 Urine Appearance Cloudy (Clear) 04/17/21 07:30 Urine pH 5.5 (5.0-7.0) 04/17/21 07:30 Ur Specific [place] 1.015 (1.005-1.030) 04/17/21 07:30 Glucose (UA)(Auto) Negative (Negative) 04/17/21 07:30 Urine Ketones Negative (Negative) 04/17/21 07:30 Urine Blood Trace (Negative) H 04/17/21 07:30 Urine Nitrite Negative (Negative) 04/17/21 07:30 Urine Bilirubin Negative (Negative) 04/17/21 07:30 Urine Urobilinogen 0.2 mg/dL (0.2-1.0) 04/17/21 07:30 Ur Leukocyte Esterase 1+ (Negative) H 04/17/21 07:30 Urine RBC 20-50 /HPF (NONE SEEN) H 04/17/21 07:30 Urine WBC 10-20 /HPF (<5) H 04/17/21 07:30 Ur Squamous Epith Cells 10-20 /HPF (NONE SEEN) H 04/17/21 07:30 Amorphous Sediment 1+ /HPF (NONE SEEN) 04/17/21 07:30 Urine Bacteria 20-50 /HPF (<20) H 04/17/21 07:30 Urine Culture Reflexed Not needed 04/17/21 07:30 Urine Total Protein 2+ (Negative) H 04/17/21 07:30 C. difficile Ag & Toxin Ag neg : tox neg (NEG : NEG) 04/30/21 10:20 Hep Bs Antigen Nonreactive (Nonreactive) 04/19/21 19:00 Hep Bs Antibody Nonreactive (Nonreactive) 04/19/21 19:00 Hep B Core Total Ab Nonreactive (Nonreactive) 04/19/21 19:00 Hepatitis C Antibody Nonreactive (Nonreactive) 04/19/21 19:00 Hep C Ab Signal/Cutoff 0.01 ratio (<1.00) 04/19/21 19:00 Smear Scan Ok (OK) 04/24/21 05:38 ABO/Rh A NEGATIVE 04/30/21 14:58 Solid Phase Ab Screen Negative 04/30/21 14:58 Crossmatch See Detail 04/30/21 14:58 Weight: 208 lb Wound Present: Yes Negative Pressure Wound Therapy Present: No Physician Update: She has severe anemia and received 2 units of blood. She is making slow overall progress with all therapy. She is depressed and is on antidepressant. She is ambulating less than 25' at a time. He days will be extended. Functional Improvement: Patient continues to self limit requiring heavy VC for mtoivation and continuation of PT services. Patient is physically capable of meeting goals and medically stable however, due to self limitation patient still has not met goals. Summary: Patient's care plan and terminal gauger goals have been reviewed and revised as necessary. Please see the Rehabilitation Signature page for all necessary signatures.
--- NOTE | 2021-05-01 12:46 | P.PN ---
Subjective Date of Service: 05/01/21 Chief Complaint: Weakness; fatigue; DVT; ESRD Subjective Pt with ESRD was on PD , switch to HD now Today no overnight events HD tomorrow cont PT/OT A/P End-stage renal disease. Previously on PD. On HD TTS currently. The patient is considering to resume peritoneal dialysis when fluid overload is controlled. Renal vit po daily. Monitor renal panel. Anemia due to chronic kidney disease. Continue STEPHANI qTTS, odse increased Severe deconditioning. Continue physical rehab. Congestive heart failure with fluid overload. HD/PUF as above. Renal osteodystrophy. Monitor Ca & Phos. Physical Examination - Vital Signs Temperature: 98.0 F Blood Pressure: 131/53 Pulse: 81 Respirations: 16 Pulse Ox (%): 96 - Studies Laboratory Data (last 24 hrs) 05/01/21 06:58: Sodium 135 L, Potassium 3.9, BUN 40 H D, Creatinine 3.57 H D, Glucose 137 H, Total Bilirubin 1.4 H, AST 17, ALT 14, Alkaline Phosphatase 95 Microbiology Data (last 24 hrs): 04/30/21 10:20 Stool Occult Blood - Final Assessment And Plan Physician Review: Patient Assessed, Agree with Above Assessment and Plan
[2021-05-01] MEDS: EPOETIN ALFA-EPBX 10,000 UNIT/ML VIAL IV SCH (17:00)
[2021-05-01] MEDS: IPRATROPIUM BROM 0.5MG/2.5ML NEB PRN (19:19)
[2021-05-01] MEDS: ATORVASTATIN 40 MG TAB PO SCH (20:34)
[2021-05-01] MEDS: MIRTAZAPINE 15 MG TAB PO SCH (20:35)
[2021-05-02] MEDS: IPRATROPIUM BROM 0.5MG/2.5ML NEB PRN (01:36)
[2021-05-02] MEDS: carvediloL 3.125 MG TAB PO SCH ×2 (05:27→17:12)
[2021-05-02] MEDS: LEVOTHYROXINE SOD 0.025 MG TAB PO SCH (05:27)
[2021-05-02] MEDS: ONDANSETRON 4 MG (ODT) TAB PO PRN (07:00)
[2021-05-02] MEDS: PANTOPRAZOLE 40MG TABLET PO SCH ×2 (07:00→16:40)
[2021-05-02] MEDS: INSULIN -REGULAR HUMAN 50 UNIT/0.5 ML ML SQ SCH ×4 (07:30→21:00)
[2021-05-02] MEDS: FERROUS SULFATE 325 MG TAB PO SCH (07:54)
[2021-05-02] MEDS: MIDODRINE HCL 5 MG TABLET PO SCH ×2 (07:54→21:00)
[2021-05-02] MEDS: ASPIRIN EC 81 MG TAB PO SCH (07:54)
[2021-05-02] MEDS: FE SULF/FA/VIT B COMP & C TAB PO SCH (07:54)
[2021-05-02] MEDS: ZINC SULFATE 220 MG CAP PO SCH (07:54)
[2021-05-02] MEDS: VITAMIN B COMPLEX 1 CAP PO SCH (07:54)
[2021-05-02] MEDS: INSULIN LISPRO 100 UNIT/1 ML SQ SCH ×3 (07:55→16:40)
[2021-05-02] MEDS: INSULIN GLARGINE 100 UNIT/ML SQ SCH (07:55)
[2021-05-02] MEDS: APIXABAN 2.5 MG TABLET PO SCH ×2 (07:55→21:00)
[2021-05-02] MEDS: CALCITROL 0.25 MCG CAP PO SCH (07:58)
[2021-05-02] MEDS: SODIUM CHLORIDE 0.9% 10ML INJ IV SCH ×2 (07:58→21:00)
[2021-05-02] MEDS: NEPRO SHAKE 237 ML CAN PO SCH ×3 (07:58→16:41)
[2021-05-02 09:03] LABS: Albumin 2.4 g/dL (3.4-5.0); Bilirubin Total 0.8 mg/dL (0.2-1.0); Potassium 4.5 mmol/L (3.5-5.1); Protein, Total 5.7 g/dL (6.4-8.2)
--- NOTE | 2021-05-02 14:09 | PN ---
Date of Progress Note: 04/28/2021 Ms. Iqbal was seen by Dr. Madden in the rehab center. She is admitted under Dr. Goetz for re habilitation post CABG surgery last month. Has a history of DVT, on Eliquis. Apparently, she has be en more somnolent and we got short of breath. Echocardiogram showed an ejection fraction of 30% to 3 5%. The patient needs to be on RAUL inhibitor, carvedilol, Lasix, and she needs to continue her Eliqu is. We will continue to follow her as needed. She obviously has an ischemic cardiomyopathy post CAB G with a significant drop in her ejection fraction. We will definitely follow her as an outpatient a s well. TACO/JENSEN Voice ID: [id number] Report ID: [id number]
[2021-05-02 18:40] LABS: Absolute Lymphocytes (CBC) 0.5 K/uL (0.7-4.9); Hematocrit 28.8 % (36.0-45.0); Lymphocytes % 9.1 % (15.3-44.8); MPV 6.6 fL (7.6-11.3); RBC Red Blood Cell Count 3.15 M/uL (3.86-4.86)
[2021-05-02] MEDS: EPOETIN ALFA-EPBX 10,000 UNIT/ML VIAL IV SCH (19:15)
[2021-05-02] MEDS: ATORVASTATIN 40 MG TAB PO SCH (21:00)
[2021-05-02] MEDS: MIRTAZAPINE 15 MG TAB PO SCH (21:00)
[2021-05-03] MEDS: carvediloL 3.125 MG TAB PO SCH ×2 (05:14→17:05)
[2021-05-03] MEDS: LEVOTHYROXINE SOD 0.025 MG TAB PO SCH (05:15)
[2021-05-03] MEDS: PANTOPRAZOLE 40MG TABLET PO SCH ×2 (07:00→16:45)
[2021-05-03] MEDS: ONDANSETRON 4 MG (ODT) TAB PO PRN (07:00)
[2021-05-03] MEDS: INSULIN -REGULAR HUMAN 50 UNIT/0.5 ML ML SQ SCH ×4 (07:30→19:47)
[2021-05-03] MEDS: INSULIN LISPRO 100 UNIT/1 ML SQ SCH ×3 (08:06→16:45)
[2021-05-03] MEDS: CALCITROL 0.25 MCG CAP PO SCH (08:07)
[2021-05-03] MEDS: VITAMIN B COMPLEX 1 CAP PO SCH (08:07)
[2021-05-03] MEDS: ASPIRIN EC 81 MG TAB PO SCH (08:07)
[2021-05-03] MEDS: INSULIN GLARGINE 100 UNIT/ML SQ SCH (08:07)
[2021-05-03] MEDS: ZINC SULFATE 220 MG CAP PO SCH (08:07)
[2021-05-03] MEDS: FE SULF/FA/VIT B COMP & C TAB PO SCH (08:07)
[2021-05-03] MEDS: NEPRO SHAKE 237 ML CAN PO SCH ×3 (08:08→16:46)
[2021-05-03] MEDS: SODIUM CHLORIDE 0.9% 10ML INJ IV SCH ×2 (08:08→19:47)
[2021-05-03] MEDS: MIDODRINE HCL 5 MG TABLET PO SCH ×2 (08:08→19:47)
[2021-05-03] MEDS: APIXABAN 2.5 MG TABLET PO SCH ×2 (08:08→19:47)
[2021-05-03] MEDS: FERROUS SULFATE 325 MG TAB PO SCH (08:08)
--- NOTE | 2021-05-03 12:04 | P.PN ---
Subjective Date of Service: 05/03/21 Chief Complaint: Weakness; fatigue; DVT; ESRD Subjective Pt with ESRD was on PD , switch to HD now Today no overnight events cont PT/OT Dialysis o Tuesday , UF 2 liters Physical exam General: AAOx3, NAD CHEST; CTAB, no wheezes or rales HEART : RRR. Normal S1,2 no murmur or rub Abd: soft, Nt Ext: no edema, Rt leg wound Skin : No rash A/P End-stage renal disease. Previously on PD. On HD TTS currently. The patient is considering to resume peritoneal dialysis when fluid overload is controlled. Renal vit po daily. Monitor renal panel. Anemia due to chronic kidney disease. Continue STEPHANI qTTS, odse increased Severe deconditioning. Continue physical rehab. Congestive heart failure with fluid overload. HD/PUF as above. Renal osteodystrophy. Monitor Ca & Phos. Physical Examination - Vital Signs Temperature: 97.6 F Blood Pressure: 99/56 Pulse: 73 Respirations: 16 Pulse Ox (%): 100 - Studies Laboratory Data (last 24 hrs) 05/02/21 18:14: WBC 5.70, Hgb 10.0 L D, Hct 28.8 L D, Plt Count 117 L Microbiology Data (last 24 hrs): 04/27/21 10:56 Blood - Blood Aerobic Blood Culture - Final No growth in 5 days. 04/27/21 10:56 Blood - Blood Anaerobic Blood Culture - Final 04/27/21 10:56 Blood - Blood Gram Stain - Final 04/27/21 17:12 Blood - Blood Aerobic Blood Culture - Final No growth in 5 days. 04/27/21 17:12 Blood - Blood Anaerobic Blood Culture - Final No growth in 5 days. 04/27/21 10:45 Blood - Blood Aerobic Blood Culture - Final No growth in 5 days. 04/27/21 10:45 Blood - Blood Anaerobic Blood Culture - Final Assessment And Plan Physician Review: Patient Assessed, Agree with Above Assessment and Plan
[2021-05-03] MEDS: ATORVASTATIN 40 MG TAB PO SCH (19:47)
[2021-05-03] MEDS: MIRTAZAPINE 15 MG TAB PO SCH (19:47)
[2021-05-04] MEDS: carvediloL 3.125 MG TAB PO SCH ×2 (05:12→17:06)
[2021-05-04] MEDS: LEVOTHYROXINE SOD 0.025 MG TAB PO SCH (05:13)
[2021-05-04] MEDS: INSULIN -REGULAR HUMAN 50 UNIT/0.5 ML ML SQ SCH ×4 (07:30→19:18)
[2021-05-04 07:35] LABS: Absolute Lymphocytes (CBC) 0.7 K/uL (0.7-4.9); Hematocrit 29.3 % (36.0-45.0); Lymphocytes % 12.2 % (15.3-44.8); MPV 6.8 fL (7.6-11.3); RBC Red Blood Cell Count 3.16 M/uL (3.86-4.86)
[2021-05-04 07:50] LABS: Potassium 4.6 mmol/L (3.5-5.1)
[2021-05-04] MEDS: SODIUM CHLORIDE 0.9% 10ML INJ IV SCH (08:00)
[2021-05-04] MEDS: NEPRO SHAKE 237 ML CAN PO SCH ×3 (08:30→16:33)
[2021-05-04] MEDS: PANTOPRAZOLE 40MG TABLET PO SCH ×2 (08:31→16:44)
[2021-05-04] MEDS: MIDODRINE HCL 5 MG TABLET PO SCH ×2 (08:38→19:18)
[2021-05-04] MEDS: CALCITROL 0.25 MCG CAP PO SCH (08:38)
[2021-05-04] MEDS: APIXABAN 2.5 MG TABLET PO SCH ×2 (08:38→19:18)
[2021-05-04] MEDS: ASPIRIN EC 81 MG TAB PO SCH (08:38)
[2021-05-04] MEDS: INSULIN GLARGINE 100 UNIT/ML SQ SCH (08:39)
[2021-05-04] MEDS: INSULIN LISPRO 100 UNIT/1 ML SQ SCH ×3 (08:39→16:48)
[2021-05-04] MEDS: FE SULF/FA/VIT B COMP & C TAB PO SCH (12:16)
[2021-05-04] MEDS: FERROUS SULFATE 325 MG TAB PO SCH (12:16)
[2021-05-04] MEDS: ZINC SULFATE 220 MG CAP PO SCH (12:16)
[2021-05-04] MEDS: VITAMIN B COMPLEX 1 CAP PO SCH (12:16)
--- NOTE | 2021-05-04 18:31 | R.PN ---
PROGRESS NOTES ENCOUNTER DATE AND TIME: 05/04/2021 18:26 (BUSINESS PROPOSAL REP) NAME NOEL REAL DATE OF : 1940 DATE OF ADMISSION: 04/16/2021 16:24 (BUSINESS PROPOSAL REP) ISCHEMIC CARDIOMYOPATHY CABG [id number] COMPLAINT: Cardiac debility s/p 4 vessel CABG. SUBJECTIVE: Pt denied any depression. Pt denied any Shortness of Breath. Cardiac debility, S/P 4 vessel CABG. WBC 5.5, Hgb 10.0. Chip Unloader 4.88, Ca 8.1, Na 134, glucose 131 to 189. UA: 1+ esterase, WBC 10-20, bacteria 20-50. Renal service is doing HD after a port was placed by general surgery. Repeat chest x-ray 04-20-21 shows mild interstitial pulmonary edema. No changes from interval exam. Patient states that pain is under control. Hep Bs antigen testing, nonreactive. ECHO: EF 46% with mild global hypokinesis. COVID-19 test today is negative. She is not doing therapy as instructed for the last 3 days. She will be discharge to a SNF on . She refused to ambulate today despite appearing to be much better compared to when first admitted. VITAL SIGNS Temperature: 97.5 F Resp: 16 Pulse: 70 SBP/DBP: 124/77 MEDICATION ALLERGIES: No Known Drug Allergies (NKDA) ENVIRONMENTAL ALLERGIES: - Substance Allergies None Known - Other Allergies None Known NURSING: - Shower allowing shower PRECAUTIONS: - Fall Precaution SAFTY AND FALL ACTIVITIES OOB only with supervision THERAPIES: - Dietary and Nutrition Adequate Nutrition. Nutritional Education. Nutritional Supplements. - Occupational Therapy Cognitive Retraining. Visual Perceptual Training. ADL Training. Adaptive Equipment. Evaluate and Glenny t. Safety Awareness. Transfer Training. Patient/Family Education. - Speech Therapy Cognitive Training. Expressive Language Skills. Memory Strategies. Receptive Language Skills. Speech Intelligibility Training. Evaluate and Treat. - Physical Therapy Mobility Training. Gait Training. Safety Awareness. Transfer Training. Balance Training. Evaluate and Treat. PHYSICAL EXAM - Gen Alert and awake Lying in bed No apparent distress Oriented to: person, time, and place - Skin Surgical sites on left and right legs shows good hemostasis. Mild to moderate size blisters on medial left and right thighs. No abnormalities - Eyes No abnormalities - ENMT No abnormalities - Neck No abnormalities - CVS RRR - Chest Chest incision is healing with good hemostasis. - Resp No wheezing - Abd Soft - GI nondistended Deferred - No abnormalities - Ext Moderate edema in both lower extremities. - MSK 4/5 weakness in both lower extremities. - Neuro No focal deficits - Psych Mild anxiety. ASSESSMENT: Pt. is a 80 yo Right-handed female.On 04/06/2021 she was admitted to [facility] with diagnosis ISCHEMI C CARDIOMYOPATHY CABG X4.Her impairment category is Cardiac 09 - Cardiac Disorders (09).Pre-morbidly , Pt. was independent/mod-I in Locomotion, Safety Awareness, Social Cognition, and Balance; and she h ad good Sphincter Control, Self-Care, Communication, and Endurance.Currently, she has deficits of Loc omotion, Safety Awareness, Social Cognition, Balance, Transfers Control, Sphincter Control, Self-Care , Communication, and Endurance.Pt. is now referred to [facility] for acute in- patient rehabilitation in order to maximize patient's functional independence in activities of daily living, strength, ROM, and mobility.- Rehab Goal Patient has realistic goal of being discharged at assistance level 7-Ind to reside at Home with Pt s elf. MDM/PLAN: - Physical Therapy Gait dysfunction - to improve, our physical therapists will perform initial evaluation of pt's statu s upon admission and devise an individualized program for Gait Training, and Wheel Chair mobility Inability to transfer - to improve, our physical therapists will perform initial evaluation of pt's status upon admission and devise an individualized program for Bed mobility Need for home safety evaluation - to improve, our physical therapists will perform initial evaluatio n of pt's status upon admission and devise an individualized program for Home Evaluation Need in caregiver upon discharge - to improve, our physical therapists will perform initial evaluati on of pt's status upon admission and devise an individualized program for Caregiver Training New precaution - to improve, our physical therapists will perform initial evaluation of pt's status upon admission and devise an individualized program for Patient precaution education Edema - to improve, our physical therapists will perform initial evaluation of pt's status upon admi ssion and devise an individualized program for Elevation Training, and Lymphedema Therapy Poor balance - to improve, our physical therapists will perform initial evaluation of pt's status up on admission and devise an individualized program for Balance Training Poor endurance - to improve, our physical therapists will perform initial evaluation of pt's status upon admission and devise an individualized program for Endurance Training Weakness - to improve, our physical therapists will perform initial evaluation of pt's status upon a dmission and devise an individualized program for Aquatic Therapy, Neuromuscular Reeducation, and Str engthening Achieving independence - to improve, our physical therapists will perform initial evaluation of pt's status upon admission and devise an individualized program for Community Reintegration Activities - Occupational Therapy ADL deficits - to improve, our occupation therapists will perform initial evaluation of pt's status upon admission and devise an individualized program for Bathing, Bed mobility, Community Reintegratio n, Cooking, Dressing, Eating, Fine Motor Skills, Grooming, Homemaking, Kitchen Mobility, Laundry, Pat ient Education, Safety Awareness, Splinting - Positioning, Transfers(Toilet, Tub, Shower), and Wheel Chair Management Cognitive deficits - to improve, our occupation therapists will perform initial evaluation of pt's s tatus upon admission and devise an individualized program for Cognition - orientation Need for career education teacher - to improve, our occupation therapists will perform initial evaluation of pt's status upon admission and devise an individualized program for Caregiver Training Weakness - to improve, our occupation therapists will perform initial evaluation of pt's status upon admission and devise an individualized program for Aquatic Therapy, Balance, Endurance, UE ROM, and UE strengthening - Other See attached MAR (Medication Administration Record) - Diet Type Continue Regular - Diet - Liquid Texture Continue Regular - Tube Feed Continue N/A - Fall Precaution SAFTY AND FALL - Diet - Solid Texture Continue Regular - Shower allowing shower FUNCTIONAL STATUS: UPDATED AT WEEKLY TEAM CONFERENCE - Bladder Same accident frequency: 7-Ind - No accidents in the past 7 days - Bowel Same accident frequency: 7-Ind - No accidents in the past 7 days - Walking Same score based on distance walked: 0(N/A) Same score based on distance walked: 1(<=50ft) - Wheelchair Same score based on distance traveled: 0(N/A) FUNCTIONAL STATUS: - Self-Care A. Eating Ind D. Dressing - Upper sup E. Dressing - Lower [place] F. Toileting [place] - Sphincter Control G. Bladder control Yadira H. Bowel control Yadira - Transfers Control K. Tub/Shower modA - Locomotion L. Walk/Wheelchair (B) maxA M. Stairs maxA - Communication N. Comprehension (B) Yadira O. Expression (B) Yadira - Social Cognition P. Social Interaction Yadira Q. Problem Solving Yadira R. Memory Yadira - Endurance Fair - Balance Fair - Safety Awareness Fair QI SCORES: - Self-Care A. Eating 03-Partial/moderate assistance B. Oral hygiene 03-Partial/moderate assistance C. Toileting hygiene 03-Partial/moderate assistance E. Shower/bathe self 03-Partial/moderate assistance F. Upper body dressing 03-Partial/moderate assistance G. Lower body dressing 03-Partial/moderate assistance H. Putting on/taking off footwear 88-Not attempted due to medical condition or safety concerns - Mobility A. Roll left and right 04-Supervision or touching assistance B. Sit to lying 03-Partial/moderate assistance C. Lying to sitting on side of bed 03-Partial/moderate assistance D. Sit to stand 03-Partial/moderate assistance E. Chair/kqs-[id number] transfer 03-Partial/moderate assistance F. Toilet transfer 03-Partial/moderate assistance G. Car transfer 88-Not attempted due to medical condition or safety concerns I. Walk 10 feet 03-Partial/moderate assistance J. Walk 50 feet with two turns 88-Not attempted due to medical condition or safety concerns K. Walk 150 feet 88-Not attempted due to medical condition or safety concerns L. Walking 10 feet on uneven surfaces 88-Not attempted due to medical condition or safety concerns M. 1 step (curb) 88-Not attempted due to medical condition or safety concerns N. 4 steps 88-Not attempted due to medical condition or safety concerns O. 12 steps 88-Not attempted due to medical condition or safety concerns P. Picking up object 88-Not attempted due to medical condition or safety concerns R. Wheel 50 feet with two turns 88-Not attempted due to medical condition or safety concerns S. Wheel 150 feet 88-Not attempted due to medical condition or safety concerns - Bladder and Bowel Bladder continence Bowel continence - Endurance Fair - Balance Fair - Safety Awareness Fair CURRENT FUNC. DEFICITS: Self-Care, Mobility, Endurance, Balance, and Safety Awareness SIGNATURE PANEL: (BUSINESS PROPOSAL REP)
[2021-05-04] MEDS: ATORVASTATIN 40 MG TAB PO SCH (19:18)
[2021-05-04] MEDS: MIRTAZAPINE 15 MG TAB PO SCH (19:18)
--- NOTE | 2021-05-05 00:38 | PN ---
Date of Progress Note: 05/04/2021 Chief Complaint: End-stage renal disease. History Of Present Illness: Currently, the patient is on hemodialysis. She wants to resume peritone al dialysis. The patient is scheduled to have hemodialysis tomorrow. She had temporary hemodialysis catheter, which was placed when the patient was fluid overloaded and required extra dialysis session for volume control. The patient denies PND or orthopnea. Physical Examination: Lungs: Diminished breath sounds at bases. Heart: S1, S2. Abdomen: Soft, benign. Extremities: No edema. Impression And Plan: 1.End-stage renal disease. Continue hemodialysis during this hospitalization and patient will be sw itched to peritoneal dialysis. Arrangements are with outpatient dialysis nursing staff. 2.Anemia of chronic kidney disease. Continue STEPHANI. 3.Severe deconditioning. The patient is on rehab. 4.Congestive heart failure with fluid overload. Continue p.o. fluid restriction, low-sodium diet an d ultrafiltration and dialysis as needed. 5.Renal osteodystrophy. Monitor phosphorus and calcium. Continue low phosphorus diet. TERRY/MODL Voice ID: [id number] Report ID: [id number]
[2021-05-05] MEDS: carvediloL 3.125 MG TAB PO SCH ×2 (05:03→17:24)
[2021-05-05] MEDS: LEVOTHYROXINE SOD 0.025 MG TAB PO SCH (05:03)
[2021-05-05] MEDS: INSULIN -REGULAR HUMAN 50 UNIT/0.5 ML ML SQ SCH ×4 (06:55→21:00)
[2021-05-05] MEDS: NEPRO SHAKE 237 ML CAN PO SCH (08:00)
[2021-05-05] MEDS: PANTOPRAZOLE 40MG TABLET PO SCH ×2 (08:37→17:30)
[2021-05-05] MEDS: APIXABAN 2.5 MG TABLET PO SCH (08:37)
[2021-05-05] MEDS: MIDODRINE HCL 5 MG TABLET PO SCH ×2 (08:37→20:59)
[2021-05-05] MEDS: CALCITROL 0.25 MCG CAP PO SCH (08:38)
[2021-05-05] MEDS: ASPIRIN EC 81 MG TAB PO SCH (08:40)
[2021-05-05] MEDS: INSULIN LISPRO 100 UNIT/1 ML SQ SCH ×3 (08:41→17:30)
[2021-05-05] MEDS: INSULIN GLARGINE 100 UNIT/ML SQ SCH (08:41)
[2021-05-05] MEDS: VITAMIN B COMPLEX 1 CAP PO SCH (09:11)
[2021-05-05] MEDS: ZINC SULFATE 220 MG CAP PO SCH (09:11)
[2021-05-05] MEDS: FERROUS SULFATE 325 MG TAB PO SCH (09:11)
[2021-05-05] MEDS: FE SULF/FA/VIT B COMP & C TAB PO SCH (09:11)
--- NOTE | 2021-05-05 15:23 | RAD REPORT ---
EXAM DESCRIPTION: USExtremity Venous Uni Ltd05/05/2021 3:10 pm CLINICAL HISTORY: left leg pain and swelling. FINDINGS: Heterogeneous fluid collection is present within the left thigh extending to the left knee compatible with hematoma. Echogenic material consistent with acute/subacute thrombus is present within the greater saphenous ve in near the takeoff with left common femoral vein. Left common femoral, superficial femoral, popliteal and posterior tibial veins are compressible and demonstrate augmentation. Doppler demonstrates good flow. Grayscale, color and spectral analysis performed on all vessels IMPRESSION: Acute/subacute thrombus within the left greater saphenous vein near its takeoff within t he left common femoral vein extending towards the knee. Hematoma in the region of the left hip extending to the left knee. The precise dimensions of the simi lucio are not well displayed on this exam. If clinically indicated a CT scan could be obtained for fur ther evaluation
--- NOTE | 2021-05-05 15:54 | P.PN ---
Subjective Date of Service: 05/05/21 Chief Complaint: Weakness; fatigue; DVT; ESRD Subjective: No new changes (Received HD today.) Physical Examination - Vital Signs Temperature: 95.4 F Blood Pressure: 114/65 Pulse: 76 Respirations: 19 Pulse Ox (%): 100 - Physical Exam General: Other (frail looking.) HEENT: Atraumatic, Normocephalic Neck: Supple Respiratory: Other (symmetric chest expansion) Cardiovascular: No rubs, No murmurs Gastrointestinal: Soft and benign, No guarding Musculoskeletal: No clubbing Integumentary: No warmth Neurological: Normal speech, Normal tone Urinary: Other (no bladder distention) External genitalia: Deferred Rectal: Deferred Assessment And Plan - Plan 1. End-stage renal disease. Previously on PD. On HD TTS currently. HD today. The patient is considering to resume peritoneal dialysis when fluid overload is controlled. Renal vit po daily. Monitor renal panel. 2. Anemia due to chronic kidney disease. Continue STEPHANI qTTS 3. Severe deconditioning. Continue physical rehab. The patient may need cardiac evaluation as well. 4. Congestive heart failure with fluid overload. HD as above. 5. Renal osteodystrophy. Monitor Ca & Phos. 6. L leg DVT. [place]. Physician Review: Patient Assessed, Agree with Above Assessment and Plan
[2021-05-05] MEDS: EPOETIN ALFA-EPBX 10,000 UNIT/ML VIAL IV SCH ×2 (17:00→19:21)
[2021-05-05] MEDS: ALBUMIN HUMAN 25% 100 ML IV SCH ×2 (17:00→18:01)
--- NOTE | 2021-05-05 17:14 | R.PN ---
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 SUBJECTIVE: Pt denied any depression. Pt denied any Shortness of Breath. Cardiac debility, S/P 4 vessel CABG. WBC 5.5, Hgb 10.0. Pharmacometrician 4.88, Ca 8.1, Na 134, glucose 109 to 259. UA: 1+ esterase, WBC 10-20, bacteria 20-50. Renal service is doing HD after a port was placed by general surgery. Repeat chest x-ray 04-20-21 shows mild interstitial pulmonary edema. No changes from interval exam. Patient states that pain is under control. Hep Bs antigen testing, nonreactive. ECHO: EF 46% with mild global hypokinesis. COVID-19 test is negative. Wheelchair mobilized 100' forward and 100' backwards with standby assistance. Repeat left lower extremity Doppler shows acute/subacute left greater saphenous vein and femoral vein into the knee. Hematoma in the left hip extending to the left knee. CT scan of the left knee, femur and knee is ordered. Eliquis 5 mg bid. VITAL SIGNS Temperature: 98.0 F Resp: 15 Pulse: 76 SBP/DBP: 114/65 MEDICATION ALLERGIES: No Known Drug Allergies (NKDA) ENVIRONMENTAL ALLERGIES: - Substance Allergies None Known - Other Allergies None Known NURSING: - Shower allowing shower PRECAUTIONS: - Fall Precaution SAFTY AND FALL ACTIVITIES OOB only with supervision THERAPIES: - Dietary and Nutrition Adequate Nutrition. Nutritional Education. Nutritional Supplements. - Occupational Therapy Cognitive Retraining. Visual Perceptual Training. ADL Training. Adaptive Equipment. Evaluate and Glenny t. Safety Awareness. Transfer Training. Patient/Family Education. - Speech Therapy Cognitive Training. Expressive Language Skills. Memory Strategies. Receptive Language Skills. Speech Intelligibility Training. Evaluate and Treat. - Physical Therapy Mobility Training. Gait Training. Safety Awareness. Transfer Training. Balance Training. Evaluate and Treat. PHYSICAL EXAM - Gen Alert and awake Lying in bed No apparent distress Oriented to: person, time, and place - Skin Surgical sites on left and right legs shows good hemostasis. Mild to moderate size blisters on medial left and right thighs. No abnormalities - Eyes No abnormalities - ENMT No abnormalities - Neck No abnormalities - CVS RRR - Chest Chest incision is healing with good hemostasis. - Resp No wheezing - Abd Soft - GI nondistended Deferred - No abnormalities - Ext Moderate edema in both lower extremities. - MSK 4/5 weakness in both lower extremities. - Neuro No focal deficits - Psych Mild anxiety. ASSESSMENT: Pt. is a 80 yo Right-handed female.On 04/06/2021 she was admitted to [facility] with diagnosis ISCHEMI C CARDIOMYOPATHY CABG X4.Her impairment category is Cardiac 09 - Cardiac Disorders (09).Pre-morbidly , Pt. was independent/mod-I in Locomotion, Safety Awareness, Social Cognition, and Balance; and she h ad good Sphincter Control, Self-Care, Communication, and Endurance.Currently, she has deficits of Loc omotion, Safety Awareness, Social Cognition, Balance, Transfers Control, Sphincter Control, Self-Care , Communication, and Endurance.Pt. is now referred to [facility] for acute in- patient rehabilitation in order to maximize patient's functional independence in activities of daily living, strength, ROM, and mobility.- Rehab Goal Patient has realistic goal of being discharged at assistance level 7-Ind to reside at Home with Pt s elf. MDM/PLAN: - Physical Therapy Gait dysfunction - to improve, our physical therapists will perform initial evaluation of pt's statu s upon admission and devise an individualized program for Gait Training, and Wheel Chair mobility Inability to transfer - to improve, our physical therapists will perform initial evaluation of pt's status upon admission and devise an individualized program for Bed mobility Need for home safety evaluation - to improve, our physical therapists will perform initial evaluatio n of pt's status upon admission and devise an individualized program for Home Evaluation Need in caregiver upon discharge - to improve, our physical therapists will perform initial evaluati on of pt's status upon admission and devise an individualized program for Caregiver Training New precaution - to improve, our physical therapists will perform initial evaluation of pt's status upon admission and devise an individualized program for Patient precaution education Edema - to improve, our physical therapists will perform initial evaluation of pt's status upon admi ssion and devise an individualized program for Elevation Training, and Lymphedema Therapy Poor balance - to improve, our physical therapists will perform initial evaluation of pt's status up on admission and devise an individualized program for Balance Training Poor endurance - to improve, our physical therapists will perform initial evaluation of pt's status upon admission and devise an individualized program for Endurance Training Weakness - to improve, our physical therapists will perform initial evaluation of pt's status upon a dmission and devise an individualized program for Aquatic Therapy, Neuromuscular Reeducation, and Str engthening Achieving independence - to improve, our physical therapists will perform initial evaluation of pt's status upon admission and devise an individualized program for Community Reintegration Activities - Occupational Therapy ADL deficits - to improve, our occupation therapists will perform initial evaluation of pt's status upon admission and devise an individualized program for Bathing, Bed mobility, Community Reintegratio n, Cooking, Dressing, Eating, Fine Motor Skills, Grooming, Homemaking, Kitchen Mobility, Laundry, Pat ient Education, Safety Awareness, Splinting - Positioning, Transfers(Toilet, Tub, Shower), and Wheel Chair Management Cognitive deficits - to improve, our occupation therapists will perform initial evaluation of pt's s tatus upon admission and devise an individualized program for Cognition - orientation Need for care advocate - to improve, our occupation therapists will perform initial evaluation of pt's status upon admission and devise an individualized program for Caregiver Training Weakness - to improve, our occupation therapists will perform initial evaluation of pt's status upon admission and devise an individualized program for Aquatic Therapy, Balance, Endurance, UE ROM, and UE strengthening - Other See attached MAR (Medication Administration Record) - Diet Type Continue Regular - Diet - Liquid Texture Continue Regular - Tube Feed Continue N/A - Fall Precaution SAFTY AND FALL - Diet - Solid Texture Continue Regular - Shower allowing shower FUNCTIONAL STATUS: UPDATED AT WEEKLY TEAM CONFERENCE - Bladder Same accident frequency: 7-Ind - No accidents in the past 7 days - Bowel Same accident frequency: 7-Ind - No accidents in the past 7 days - Walking Same score based on distance walked: 0(N/A) Same score based on distance walked: 1(<=50ft) - Wheelchair Same score based on distance traveled: 0(N/A) FUNCTIONAL STATUS: - Self-Care A. Eating Ind D. Dressing - Upper sup E. Dressing - Lower [place] F. Toileting [place] - Sphincter Control G. Bladder control Yadira H. Bowel control Yadira - Transfers Control K. Tub/Shower modA - Locomotion L. Walk/Wheelchair (B) maxA M. Stairs maxA - Communication N. Comprehension (B) Yadira O. Expression (B) Yadira - Social Cognition P. Social Interaction Yadira Q. Problem Solving Yadira R. Memory Yadira - Endurance Fair - Balance Fair - Safety Awareness Fair QI SCORES: - Self-Care A. Eating 03-Partial/moderate assistance B. Oral hygiene 03-Partial/moderate assistance C. Toileting hygiene 03-Partial/moderate assistance E. Shower/bathe self 03-Partial/moderate assistance F. Upper body dressing 03-Partial/moderate assistance G. Lower body dressing 03-Partial/moderate assistance H. Putting on/taking off footwear 88-Not attempted due to medical condition or safety concerns - Mobility A. Roll left and right 04-Supervision or touching assistance B. Sit to lying 03-Partial/moderate assistance C. Lying to sitting on side of bed 03-Partial/moderate assistance D. Sit to stand 03-Partial/moderate assistance E. Chair/[id number]-[id number] transfer 03-Partial/moderate assistance F. Toilet transfer 03-Partial/moderate assistance G. Car transfer 88-Not attempted due to medical condition or safety concerns I. Walk 10 feet 03-Partial/moderate assistance J. Walk 50 feet with two turns 88-Not attempted due to medical condition or safety concerns K. Walk 150 feet 88-Not attempted due to medical condition or safety concerns L. Walking 10 feet on uneven surfaces 88-Not attempted due to medical condition or safety concerns M. 1 step (curb) 88-Not attempted due to medical condition or safety concerns N. 4 steps 88-Not attempted due to medical condition or safety concerns O. 12 steps 88-Not attempted due to medical condition or safety concerns P. Picking up object 88-Not attempted due to medical condition or safety concerns R. Wheel 50 feet with two turns 88-Not attempted due to medical condition or safety concerns S. Wheel 150 feet 88-Not attempted due to medical condition or safety concerns - Bladder and Bowel Bladder continence Bowel continence - Endurance Fair - Balance Fair - Safety Awareness Fair CURRENT FUNC. 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
--- NOTE | 2021-05-05 17:32 | RAD REPORT ---
EXAM DESCRIPTION: CT - Hip Left Wo Con - 05/05/2021 5:12 pm CLINICAL HISTORY: Left hip pain and swelling COMPARISON: Ultrasound May 05, 2021 TECHNIQUE: Computed axial tomography left hip and proximal to mid left femur obtained with coronal a nd sagittal reconstruction. All CT scans are performed using dose optimization technique as appropriate and may include automated exposure control or mA/KV adjustment according to patient size. FINDINGS: No fracture or dislocation is seen. No significant hip joint effusion. A low to intermediate density fluid collection is present within the posteromedial subcutaneous tissu es of the mid left femur extending to the knee measuring approximately 2.5 x 2.3 centimeters (AP by gracie sears). Diffuse edema within the subcutaneous tissues IMPRESSION: Fluid collection extending from the mid left femur to the knee having the appearance of a subacute hematoma.
--- NOTE | 2021-05-05 17:33 | RAD REPORT ---
EXAM DESCRIPTION: CT - Knee Left Wo Con - 05/05/2021 5:12 pm CLINICAL HISTORY: Left knee pain and swelling COMPARISON: May 05, 2021 ultrasound TECHNIQUE: Computed axial tomography obtained from a the mid left femur to the left knee. Coronal an d sagittal reconstruction performed All CT scans are performed using dose optimization technique as appropriate and may include automated exposure control or mA/KV adjustment according to patient size. FINDINGS: No fracture or dislocation is seen. No significant knee joint effusion. A low to intermediate density fluid collection is present within the posteromedial subcutaneous tissu es of the mid left femur extending to the knee measuring approximately 2.5 x 2.3 centimeters (AP by gracie sears). Diffuse edema within the subcutaneous tissues IMPRESSION: Fluid collection extending from the mid left femur to the knee having the appearance of a subacute hematoma.
[2021-05-05] MEDS: APIXABAN 5 MG TABLET PO SCH (20:58)
[2021-05-05] MEDS: ATORVASTATIN 40 MG TAB PO SCH (20:59)
[2021-05-05] MEDS: MIRTAZAPINE 15 MG TAB PO SCH (20:59)
[2021-05-06] MEDS: IPRATROPIUM BROM 0.5MG/2.5ML NEB PRN ×2 (02:31→19:50)
[2021-05-06] MEDS: LEVOTHYROXINE SOD 0.025 MG TAB PO SCH (05:10)
[2021-05-06] MEDS: carvediloL 3.125 MG TAB PO SCH ×2 (05:10→17:39)
[2021-05-06] MEDS: INSULIN -REGULAR HUMAN 50 UNIT/0.5 ML ML SQ SCH ×4 (07:04→20:33)
[2021-05-06] MEDS: PANTOPRAZOLE 40MG TABLET PO SCH ×2 (07:28→17:13)
[2021-05-06] MEDS: ASPIRIN EC 81 MG TAB PO SCH (08:00)
[2021-05-06] MEDS: MIDODRINE HCL 5 MG TABLET PO SCH ×2 (08:16→20:32)
[2021-05-06] MEDS: APIXABAN 5 MG TABLET PO SCH ×2 (08:16→20:00)
[2021-05-06] MEDS: CALCITROL 0.25 MCG CAP PO SCH (08:17)
[2021-05-06] MEDS: VITAMIN B COMPLEX 1 CAP PO SCH (08:17)
[2021-05-06] MEDS: FERROUS SULFATE 325 MG TAB PO SCH (08:17)
[2021-05-06] MEDS: FE SULF/FA/VIT B COMP & C TAB PO SCH (08:18)
[2021-05-06] MEDS: ZINC SULFATE 220 MG CAP PO SCH (08:18)
[2021-05-06] MEDS: LIDOCAINE 4% PATCH TOP SCH (08:18)
[2021-05-06] MEDS: INSULIN LISPRO 100 UNIT/1 ML SQ SCH ×3 (08:57→16:34)
[2021-05-06] MEDS: INSULIN GLARGINE 100 UNIT/ML SQ SCH (08:58)
--- NOTE | 2021-05-06 14:06 | CON ---
Date of Consultation: 05/06/2021 Reason For Consultation: Placement of a tunneled hemodialysis catheter. History Of Present Illness: This is the case of a 81-year-old patient, currently in rehab, who is in need of hemodialysis catheter. The patient has a temporary one placed by Dr. Odom, one of the [facility] surgeons several weeks ago, but is not tunneled and they wanted a cuffed tunnel catheter. That i s why they called me. Dr. Odom asked me to help in the case. Past Surgical History: Includes open heart surgery, pacemaker insertion, also this temporary dialysi s catheter in the right subclavian vein. Past Medical History: Hypertension, diabetes. Social History: She does not smoke. She does not drink alcohol. Allergies: NONE. Review of Systems: No shortness of breath. No chest pain. Ten points otherwise unremarkable. Family History: Noncontributory. Physical Examination: General: The patient is awake, alert. HEENT: Pupils are equal and reactive. Anicteric. Neck: Supple. Chest: Clear. The patient has a hemodialysis catheter on the right subclavian chest area. Abdomen: Soft and depressible. No guarding or rebound. Extremities: Good capillary refill. Laboratory Data: Blood work; WBC count 5.5 with hemoglobin of 10. INR is 1.1. Glucose 124. Assessment: A 81-year-old patient in need of cuffed hemodialysis catheter tunnel. The benefits, alt ernatives, and risks were fully explained to the patient, which include, but not limited to infection , bleeding, damage to adjacent structures, anesthesia complication, pneumothorax, hemothorax, DVTs, M I, and even . She also understands this is a temporary catheter. She has to look for her [facility] surgeons in [place] that will be sent by the Renal doctor to have more permanent access if the he modialysis will be continued. She understands also the risks of hemothorax, understands the risks of PEs, understands the risks of pericardial tamponade and vessel lacerations. HM/MODL Voice ID: [id number] Report ID: [id number]
--- NOTE | 2021-05-06 15:12 | PN ---
Date of Progress Note: 05/06/2021 Subjective: Patient was admitted for rehabilitation after CABG. Patient tolerated rehab, but is sti ll weak. Physical Examination: Vital Signs: Blood pressure 137/59, pulse of 90, afebrile. We managed to remove 2 L yesterday with the dialysis. Chest: Decreased entry bilateral base. Heart: S1, S2. Systolic murmur. Abdomen: Soft, nontender. PD catheter. Extremities: Plus edema left more than the right. Laboratory Data: WBC 5.5, H and H 10/29.3, platelets 115. Sodium 134, potassium 4.6, bicarb 28, BUN 59, creatinine 4.8, calcium 8.1. Current Medications: The patient is on include: 1.Epogen. 2.Eliquis. 3.Atorvastatin. 4.Carvedilol 3.125. 5.Zinc sulfate. 6.Zofran. 7.Levothyroxine. 8.Calcitriol. Assessment And Plan: 1.End-stage renal disease. We will continue the patient on dialysis. We will arrange for the patie nt for another session of dialysis tomorrow. Patient is planned for discharge to rehab, which they d o not do PD, so patient is going to need arrangement for hemodialysis. We will consult social services designee for chair with Dorothy Santillan and we will consult the surgery for converting the temporary dial ysis catheter to tunnelled. 2.Hypertension. We will utilize the blood pressure for more ultrafiltration. Continue current dose of carvedilol. 3.Anemia of chronic kidney disease. Continue STEPHANI. 4.Secondary hyperparathyroidism, stable. MARILU/JENSEN Voice ID: [id number] Report ID: [id number]
--- NOTE | 2021-05-06 16:23 | R.PN ---
PROGRESS NOTES ENCOUNTER DATE AND TIME: 05/06/2021 16:16 (SENIOR SCHEDULER) NAME NOEL REAL DATE OF : 1940 DATE OF ADMISSION: 04/16/2021 16:24 (SENIOR SCHEDULER) ISCHEMIC CARDIOMYOPATHY CABG [id number] COMPLAINT: Cardiac debility s/p 4 vessel CABG. SUBJECTIVE: Pt denied any depression. Pt denied any Shortness of Breath. Cardiac debility, S/P 4 vessel CABG. WBC 5.5, Hgb 10.0. Roofer 4.88, Ca 8.1, Na 134, glucose 111 to 124. UA: 1+ esterase, WBC 10-20, bacteria 20-50. Renal service is doing HD after a port was placed by general surgery. Repeat chest x-ray 04-20-21 shows mild interstitial pulmonary edema. No changes from interval exam. Patient states that pain is under control. Hep Bs antigen testing, nonreactive. ECHO: EF 46% with mild global hypokinesis. COVID-19 test is negative on 05/04/2021 and 05/06/2021. Repeat left lower extremity Doppler shows acute/subacute left greater saphenous vein and femoral vein into the knee. Hematoma in the left hip extending to the left knee. CT scan of the left knee, femur and knee is ordered. Eliquis 5 mg bid. She refused out of bed therapy today. She did bed mobility exercises. Her temporary dialysis will be converted to permanent in the AM and she will be discharged to [facility] the following day. VITAL SIGNS Temperature: 97.1 F Resp: 16 Pulse: 90 SBP/DBP: 137/59 MEDICATION ALLERGIES: No Known Drug Allergies (NKDA) ENVIRONMENTAL ALLERGIES: - Substance Allergies None Known - Other Allergies None Known NURSING: - Shower allowing shower PRECAUTIONS: - Fall Precaution SAFTY AND FALL ACTIVITIES OOB only with supervision THERAPIES: - Dietary and Nutrition Adequate Nutrition. Nutritional Education. Nutritional Supplements. - Occupational Therapy Cognitive Retraining. Visual Perceptual Training. ADL Training. Adaptive Equipment. Evaluate and Glenny t. Safety Awareness. Transfer Training. Patient/Family Education. - Speech Therapy Cognitive Training. Expressive Language Skills. Memory Strategies. Receptive Language Skills. Speech Intelligibility Training. Evaluate and Treat. - Physical Therapy Mobility Training. Gait Training. Safety Awareness. Transfer Training. Balance Training. Evaluate and Treat. PHYSICAL EXAM - Gen Alert and awake Lying in bed No apparent distress Oriented to: person, time, and place - Skin Surgical sites on left and right legs shows good hemostasis. Mild to moderate size blisters on medial left and right thighs. No abnormalities - Eyes No abnormalities - ENMT No abnormalities - Neck No abnormalities - CVS RRR - Chest Chest incision is healing with good hemostasis. - Resp No wheezing - Abd Soft - GI nondistended Deferred - No abnormalities - Ext Moderate edema in both lower extremities. - MSK 4/5 weakness in both lower extremities. - Neuro No focal deficits - Psych Mild anxiety. ASSESSMENT: Pt. is a 80 yo Right-handed female.On 04/06/2021 she was admitted to [facility] with diagnosis ISCHEMI C CARDIOMYOPATHY CABG X4.Her impairment category is Cardiac 09 - Cardiac Disorders (09).Pre-morbidly , Pt. was independent/mod-I in Locomotion, Safety Awareness, Social Cognition, and Balance; and she h ad good Sphincter Control, Self-Care, Communication, and Endurance.Currently, she has deficits of Loc omotion, Safety Awareness, Social Cognition, Balance, Transfers Control, Sphincter Control, Self-Care , Communication, and Endurance.Pt. is now referred to [facility] for acute in- patient rehabilitation in order to maximize patient's functional independence in activities of daily living, strength, ROM, and mobility.- Rehab Goal Patient has realistic goal of being discharged at assistance level 7-Ind to reside at Home with Pt s elf. MDM/PLAN: - Physical Therapy Gait dysfunction - to improve, our physical therapists will perform initial evaluation of pt's statu s upon admission and devise an individualized program for Gait Training, and Wheel Chair mobility Inability to transfer - to improve, our physical therapists will perform initial evaluation of pt's status upon admission and devise an individualized program for Bed mobility Need for home safety evaluation - to improve, our physical therapists will perform initial evaluatio n of pt's status upon admission and devise an individualized program for Home Evaluation Need in caregiver upon discharge - to improve, our physical therapists will perform initial evaluati on of pt's status upon admission and devise an individualized program for Caregiver Training New precaution - to improve, our physical therapists will perform initial evaluation of pt's status upon admission and devise an individualized program for Patient precaution education Edema - to improve, our physical therapists will perform initial evaluation of pt's status upon admi ssion and devise an individualized program for Elevation Training, and Lymphedema Therapy Poor balance - to improve, our physical therapists will perform initial evaluation of pt's status up on admission and devise an individualized program for Balance Training Poor endurance - to improve, our physical therapists will perform initial evaluation of pt's status upon admission and devise an individualized program for Endurance Training Weakness - to improve, our physical therapists will perform initial evaluation of pt's status upon a dmission and devise an individualized program for Aquatic Therapy, Neuromuscular Reeducation, and Str engthening Achieving independence - to improve, our physical therapists will perform initial evaluation of pt's status upon admission and devise an individualized program for Community Reintegration Activities - Occupational Therapy ADL deficits - to improve, our occupation therapists will perform initial evaluation of pt's status upon admission and devise an individualized program for Bathing, Bed mobility, Community Reintegratio n, Cooking, Dressing, Eating, Fine Motor Skills, Grooming, Homemaking, Kitchen Mobility, Laundry, Pat ient Education, Safety Awareness, Splinting - Positioning, Transfers(Toilet, Tub, Shower), and Wheel Chair Management Cognitive deficits - to improve, our occupation therapists will perform initial evaluation of pt's s tatus upon admission and devise an individualized program for Cognition - orientation Need for children's zoo caretaker - to improve, our occupation therapists will perform initial evaluation of pt's status upon admission and devise an individualized program for Caregiver Training Weakness - to improve, our occupation therapists will perform initial evaluation of pt's status upon admission and devise an individualized program for Aquatic Therapy, Balance, Endurance, UE ROM, and UE strengthening - Other See attached MAR (Medication Administration Record) - Diet Type Continue Regular - Diet - Liquid Texture Continue Regular - Tube Feed Continue N/A - Fall Precaution SAFTY AND FALL - Diet - Solid Texture Continue Regular - Shower allowing shower FUNCTIONAL STATUS: UPDATED AT WEEKLY TEAM CONFERENCE - Bladder Same accident frequency: 7-Ind - No accidents in the past 7 days - Bowel Same accident frequency: 7-Ind - No accidents in the past 7 days - Walking Same score based on distance walked: 0(N/A) Same score based on distance walked: 1(<=50ft) - Wheelchair Same score based on distance traveled: 0(N/A) FUNCTIONAL STATUS: - Self-Care A. Eating Ind D. Dressing - Upper sup E. Dressing - Lower [place] F. Toileting [place] - Sphincter Control G. Bladder control Yadira H. Bowel control Yadira - Transfers Control K. Tub/Shower modA - Locomotion L. Walk/Wheelchair (B) maxA M. Stairs maxA - Communication N. Comprehension (B) Yadira O. Expression (B) Yadira - Social Cognition P. Social Interaction Yadira Q. Problem Solving Yadira R. Memory Yadira - Endurance Fair - Balance Fair - Safety Awareness Fair QI SCORES: - Self-Care A. Eating 03-Partial/moderate assistance B. Oral hygiene 03-Partial/moderate assistance C. Toileting hygiene 03-Partial/moderate assistance E. Shower/bathe self 03-Partial/moderate assistance F. Upper body dressing 03-Partial/moderate assistance G. Lower body dressing 03-Partial/moderate assistance H. Putting on/taking off footwear 88-Not attempted due to medical condition or safety concerns - Mobility A. Roll left and right 04-Supervision or touching assistance B. Sit to lying 03-Partial/moderate assistance C. Lying to sitting on side of bed 03-Partial/moderate assistance D. Sit to stand 03-Partial/moderate assistance E. Chair/[id number] transfer 03-Partial/moderate assistance F. Toilet transfer 03-Partial/moderate assistance G. Car transfer 88-Not attempted due to medical condition or safety concerns I. Walk 10 feet 03-Partial/moderate assistance J. Walk 50 feet with two turns 88-Not attempted due to medical condition or safety concerns K. Walk 150 feet 88-Not attempted due to medical condition or safety concerns L. Walking 10 feet on uneven surfaces 88-Not attempted due to medical condition or safety concerns M. 1 step (curb) 88-Not attempted due to medical condition or safety concerns N. 4 steps 88-Not attempted due to medical condition or safety concerns O. 12 steps 88-Not attempted due to medical condition or safety concerns P. Picking up object 88-Not attempted due to medical condition or safety concerns R. Wheel 50 feet with two turns 88-Not attempted due to medical condition or safety concerns S. Wheel 150 feet 88-Not attempted due to medical condition or safety concerns - Bladder and Bowel Bladder continence Bowel continence - Endurance Fair - Balance Fair - Safety Awareness Fair CURRENT FUNC. DEFICITS: Self-Care, Mobility, Endurance, Balance, and Safety Awareness SIGNATURE PANEL: (SENIOR SCHEDULER)
[2021-05-06] MEDS: NEPRO SHAKE 237 ML CAN PO SCH (17:13)
[2021-05-06] MEDS ORDERED: D50W 25 GM/50 ML SYRINGE IV PRN (17:18)
[2021-05-06] MEDS: MIRTAZAPINE 15 MG TAB PO SCH (20:32)
[2021-05-06] MEDS: ATORVASTATIN 40 MG TAB PO SCH (20:32)
[2021-05-07] MEDS: IPRATROPIUM BROM 0.5MG/2.5ML NEB PRN (04:15)
[2021-05-07 04:52] LABS: Absolute Lymphocytes (CBC) 0.7 K/uL (0.7-4.9); Hematocrit 25.8 % (36.0-45.0); MPV 6.5 fL (7.6-11.3); RBC Red Blood Cell Count 2.83 M/uL (3.86-4.86)
[2021-05-07 05:21] LABS: Albumin 2.8 g/dL (3.4-5.0); Magnesium 2.3 mg/dL (1.8-2.4); Potassium 4.2 mmol/L (3.5-5.1); Prealbumin 22.9 mg/dL (20-40)
[2021-05-07] MEDS: LEVOTHYROXINE SOD 0.025 MG TAB PO SCH (05:24)
[2021-05-07] MEDS: carvediloL 3.125 MG TAB PO SCH ×2 (05:24→17:35)
[2021-05-07 05:26] LABS: Anisocytosis 1+; Blood Morphology Comment NOTED (NOT SEEN); Macrocytosis SLIGHT; Platelet Estimate ADEQ; White Blood Cell Scan OK (OK)
[2021-05-07] MEDS: LIDOCAINE 4% PATCH TOP SCH (06:54)
[2021-05-07] MEDS: MIDODRINE HCL 5 MG TABLET PO SCH ×2 (07:02→20:21)
[2021-05-07] MEDS: PANTOPRAZOLE 40MG TABLET PO SCH ×2 (07:27→16:09)
[2021-05-07] MEDS: INSULIN -REGULAR HUMAN 50 UNIT/0.5 ML ML SQ SCH ×4 (07:27→20:45)
[2021-05-07] MEDS: VITAMIN B COMPLEX 1 CAP PO SCH (07:28)
[2021-05-07] MEDS: APIXABAN 5 MG TABLET PO SCH ×2 (07:30→20:21)
[2021-05-07] MEDS: FE SULF/FA/VIT B COMP & C TAB PO SCH (07:31)
[2021-05-07] MEDS: FERROUS SULFATE 325 MG TAB PO SCH (07:31)
[2021-05-07] MEDS: INSULIN LISPRO 100 UNIT/1 ML SQ SCH ×3 (07:31→16:12)
[2021-05-07] MEDS: NEPRO SHAKE 237 ML CAN PO SCH ×5 (07:31→17:37)
[2021-05-07] MEDS: CALCITROL 0.25 MCG CAP PO SCH (07:32)
[2021-05-07] MEDS: INSULIN GLARGINE 100 UNIT/ML SQ SCH (07:32)
[2021-05-07] MEDS: ZINC SULFATE 220 MG CAP PO SCH (07:32)
[2021-05-07] MEDS ORDERED: NA CHLORIDE 0.9% 500 ML ONE (08:29)
[2021-05-07] MEDS ORDERED: NA CHLORIDE 0.9% 100 ML IV ONE (08:39)
[2021-05-07] MEDS ORDERED: HEPARIN 5000 UNIT/ML 1 ML VIAL ONE (08:39)
[2021-05-07] MEDS: BUPIVACAINE 0.5% PF 10 ML VIAL ONE ×2 (08:39→09:42)
[2021-05-07] MEDS ORDERED: NS 0.9% VIAL 10 ML ONE (08:39)
[2021-05-07] MEDS ORDERED: FENTANYL CITR 100 MCG/2 ML ONE (08:46)
[2021-05-07] MEDS ORDERED: propofoL 200 MG/20 ML VIAL IV ONE (08:46)
[2021-05-07] MEDS ORDERED: LIDOCAINE 2% MPF 5 ML VIAL ONE (08:46)
[2021-05-07] MEDS ORDERED: CEFAZOLIN SODIUM 1 GM/VIAL ONE (08:58)
--- NOTE | 2021-05-07 10:15 | P.BOP ---
Preoperative diagnosis: ESRD, CHF Postoperative diagnosis: same Primary procedure: 1. Placement of Hemosplit cuffed HD catheter Secondary procedure: 2. Interpretation of Fluoroscopy Other procedure(s): 3. Right neck and subclavian ultrasound Estimated blood loss: Less than 10 cc Specimen: old dialysis catheter intact Findings: see dicta Anesthesia: General Complications: None Drain(s): Other Implants: Hemosplit cuffed HD catheter Fluids & blood products: no blood Transferred to: Recovery Room Condition: Good
--- NOTE | 2021-05-07 10:38 | RAD REPORT ---
EXAM DESCRIPTION: RAD - Fluoroscopy <1 Hour - 05/07/2021 10:33 am CLINICAL HISTORY: Venous catheter insertion. HEMODIALYSIS CATH PLACEMENT COMPARISON: Fluoroscopy <1 Hour dated 04/19/2021 FINDINGS: Fluoroscopic imaging is submitted from placement of a venous catheter. Details of the pro cedure not available. Fluoroscopy time: 0.7 minutes
--- NOTE | 2021-05-07 11:28 | RAD REPORT ---
EXAM DESCRIPTION: RAD - Chest Single View - 05/07/2021 11:22 am CLINICAL HISTORY: new HD catheter Chest pain. COMPARISON: Chest Single View dated 04/29/2021; Chest Single View dated 04/27/2021; Abdomen 1 View (KUB ) dated 04/26/2021; Chest Single View dated 04/23/2021 FINDINGS: Portable technique limits examination quality. Right-sided venous catheter has been placed with its tip in the SVC. No postprocedure pneumothorax. Moderate CHF pattern with right pleural effusion is again noted.
--- NOTE | 2021-05-07 15:54 | OP ---
Date of Procedure: 05/07/2021 Surgeon: Brown Odell MD Preoperative Diagnoses: Morbid obesity, end-stage renal disease, congestive heart failure, on hemodi alysis. Postoperative Diagnoses: Morbid obesity, end-stage renal disease, congestive heart failure, on hemod ialysis. Procedures: 1.Placement of HemoSplit cuffed hemodialysis catheter. 2.Interpretation of fluoroscopy. 3.Right neck and subclavian ultrasound. Estimated Blood Loss: Less than 10 mL. Specimen: Old dialysis catheter intact. Anesthesia: General plus local. Findings: New HemoSplit cuffed catheter was placed replacing the previous non-cuffed catheter. Implant: HemoSplit cuffed hemodialysis catheter. Indication: This is the case of a 81-year-old patient, had an emergent placement of hemodialysis cat heter not too long ago. She also had recent cardiac surgery, defibrillator placed too. Dr. Odom came emergently and placed a hemodialysis catheter on the subclavian vein because he could not get ac cess to other place of subclavian. He is afraid of and left jugular because of the recent surgery an d recent placement of a device. In the right jugular region since the patient body habitus was diffi cult to access, so we put a non-cuffed catheter on the right subclavian vein and then the renal docto r has already discharged her, but they want to replace with a cuffed catheter. The benefits, alterna tives, and risks of placement of a hemodialysis catheter were fully explained to the patient, which i nclude, but not limited to infection, bleeding, damage to adjacent structures, anesthesia complicatio n, hemothorax, pneumothorax, DVTs, PEs, pericardiac tamponade, dislodging of heart device, vein lacer ation, infection, MA, and even . She also understands this may not relieve any symptoms. She u nderstands the chance of pneumothorax and hemothorax. She signed a consent. Procedure In Detail: The patient was brought to the operating room, placed in supine position. Anes thesia was done without complication. Right chest and neck were prepped and draped in a sterile [facility] ion. We have this dilemma at this moment too. We have this previous catheter in the right subclavia n. It is not the usual location that we had our first option, but this case is the safest option, so what I did just basically removed the stitches, cleaned the area nicely. We were trying to see we h ave a new insertion point, so we were trying to stay away from the all insertion points at least afte r the new catheter is placed, so I put the patient in Trendelenburg position, put a guidewire through the previous Mahurkar catheter, put pressure in the area. A guidewire was placed in. I have to men tion that before that I did an ultrasound of the right subclavian in right neck to make sure they are patent and shows compressible, they are patent. Once again, neck location is little bit difficult f or body habitus, so we are going to trying to do the safer way for her case. Once again, we went elisabet k, the guidewire was placed in the superior vena cava using fluoroscopy as guidance. Previous cathet er was placed in. I did not want to come new catheter to come through that previous incision, so we got the guidewire. We made another incision in the upper chest and pulled the guidewire to that new incision. So, we do not have to use old one. Then, we created an incision on the right upper chest and the catheter was basically tunneled through. To that new incision, we created the area below the subclavian. With the help of fluoroscopy, multiple dilators were placed over the area until we plac e the introducer and sheath, catheter. The guidewire was removed and then the catheter was placed th rough the introducer sheath and the introducer sheath was peeled off. This was done under fluoroscop y. At the end of the case, excellent backflow and inflow. The previous incisions were left to close by secondary intention with some Neosporin. New incisions were approximated with 3-0 chromic. The line was flushed with heparinized solution. Excellent backflow and inflow. The patient was brought back to normal position and a chest x-ray was ordered in recovery. The patient tolerated the procedu re well. From here now, Renal Service will take care of her. She was advised once again to look for more permanent access through a vascular surgical office in [place]. BRITTANY/JENSEN Voice ID: [id number] Report ID: [id number]
[2021-05-07] MEDS: EPOETIN ALFA-EPBX 10,000 UNIT/ML VIAL IV SCH ×2 (17:00→17:45)
--- NOTE | 2021-05-07 18:08 | R.PN ---
PROGRESS NOTES ENCOUNTER DATE AND TIME: 05/07/2021 18:04 (OFFAL SEPARATOR) NAME NOEL REAL DATE OF : 1940 DATE OF ADMISSION: 04/16/2021 16:24 (OFFAL SEPARATOR) ISCHEMIC CARDIOMYOPATHY CABG [id number] COMPLAINT: Cardiac debility s/p 4 vessel CABG. SUBJECTIVE: Pt denied any depression. Pt denied any Shortness of Breath. Cardiac debility, S/P 4 vessel CABG. WBC 5.5, Hgb 10.0. Library Director 4.88, Ca 8.1, Na 134, glucose 111 to 124. UA: 1+ esterase, WBC 10-20, bacteria 20-50. Renal service is doing HD after a port was placed by general surgery. Repeat chest x-ray 04-20-21 shows mild interstitial pulmonary edema. No changes from interval exam. Patient states that pain is under control. Hep Bs antigen testing, nonreactive. ECHO: EF 46% with mild global hypokinesis. COVID-19 test is negative on 05/04/2021 and 05/06/2021. Repeat left lower extremity Doppler shows acute/subacute left greater saphenous vein and femoral vein into the knee. Hematoma in the left hip extending to the left knee. CT scan of the left knee, femur and knee is ordered. Eliquis 5 mg bid. Her temporary dialysis was converted to permanent access and she will be discharged to SNF in the AM. VITAL SIGNS Temperature: 97.0 F Resp: 15 Pulse: 66 SBP/DBP: 129/53 MEDICATION ALLERGIES: No Known Drug Allergies (NKDA) ENVIRONMENTAL ALLERGIES: - Substance Allergies None Known - Other Allergies None Known NURSING: - Shower allowing shower PRECAUTIONS: - Fall Precaution SAFTY AND FALL ACTIVITIES OOB only with supervision THERAPIES: - Dietary and Nutrition Adequate Nutrition. Nutritional Education. Nutritional Supplements. - Occupational Therapy Cognitive Retraining. Visual Perceptual Training. ADL Training. Adaptive Equipment. Evaluate and Glenny t. Safety Awareness. Transfer Training. Patient/Family Education. - Speech Therapy Cognitive Training. Expressive Language Skills. Memory Strategies. Receptive Language Skills. Speech Intelligibility Training. Evaluate and Treat. - Physical Therapy Mobility Training. Gait Training. Safety Awareness. Transfer Training. Balance Training. Evaluate and Treat. PHYSICAL EXAM - Gen Alert and awake Lying in bed No apparent distress Oriented to: person, time, and place - Skin Surgical sites on left and right legs shows good hemostasis. Mild to moderate size blisters on medial left and right thighs. No abnormalities - Eyes No abnormalities - ENMT No abnormalities - Neck No abnormalities - CVS RRR - Chest Chest incision is healing with good hemostasis. - Resp No wheezing - Abd Soft - GI nondistended Deferred - No abnormalities - Ext Moderate edema in both lower extremities. - MSK 4/5 weakness in both lower extremities. - Neuro No focal deficits - Psych Mild anxiety. ASSESSMENT: Pt. is a 80 yo Right-handed female.On 04/06/2021 she was admitted to [facility] with diagnosis ISCHEMI C CARDIOMYOPATHY CABG X4.Her impairment category is Cardiac 09 - Cardiac Disorders (09).Pre-morbidly , Pt. was independent/mod-I in Locomotion, Safety Awareness, Social Cognition, and Balance; and she h ad good Sphincter Control, Self-Care, Communication, and Endurance.Currently, she has deficits of Loc omotion, Safety Awareness, Social Cognition, Balance, Transfers Control, Sphincter Control, Self-Care , Communication, and Endurance.Pt. is now referred to [facility] for acute in- patient rehabilitation in order to maximize patient's functional independence in activities of daily living, strength, ROM, and mobility.- Rehab Goal Patient has realistic goal of being discharged at assistance level 7-Ind to reside at Home with Pt s elf. MDM/PLAN: - Physical Therapy Gait dysfunction - to improve, our physical therapists will perform initial evaluation of pt's statu s upon admission and devise an individualized program for Gait Training, and Wheel Chair mobility Inability to transfer - to improve, our physical therapists will perform initial evaluation of pt's status upon admission and devise an individualized program for Bed mobility Need for home safety evaluation - to improve, our physical therapists will perform initial evaluatio n of pt's status upon admission and devise an individualized program for Home Evaluation Need in caregiver upon discharge - to improve, our physical therapists will perform initial evaluati on of pt's status upon admission and devise an individualized program for Caregiver Training New precaution - to improve, our physical therapists will perform initial evaluation of pt's status upon admission and devise an individualized program for Patient precaution education Edema - to improve, our physical therapists will perform initial evaluation of pt's status upon admi ssion and devise an individualized program for Elevation Training, and Lymphedema Therapy Poor balance - to improve, our physical therapists will perform initial evaluation of pt's status up on admission and devise an individualized program for Balance Training Poor endurance - to improve, our physical therapists will perform initial evaluation of pt's status upon admission and devise an individualized program for Endurance Training Weakness - to improve, our physical therapists will perform initial evaluation of pt's status upon a dmission and devise an individualized program for Aquatic Therapy, Neuromuscular Reeducation, and Str engthening Achieving independence - to improve, our physical therapists will perform initial evaluation of pt's status upon admission and devise an individualized program for Community Reintegration Activities - Occupational Therapy ADL deficits - to improve, our occupation therapists will perform initial evaluation of pt's status upon admission and devise an individualized program for Bathing, Bed mobility, Community Reintegratio n, Cooking, Dressing, Eating, Fine Motor Skills, Grooming, Homemaking, Kitchen Mobility, Laundry, Pat ient Education, Safety Awareness, Splinting - Positioning, Transfers(Toilet, Tub, Shower), and Wheel Chair Management Cognitive deficits - to improve, our occupation therapists will perform initial evaluation of pt's s tatus upon admission and devise an individualized program for Cognition - orientation Need for care provider - to improve, our occupation therapists will perform initial evaluation of pt's status upon admission and devise an individualized program for Caregiver Training Weakness - to improve, our occupation therapists will perform initial evaluation of pt's status upon admission and devise an individualized program for Aquatic Therapy, Balance, Endurance, UE ROM, and UE strengthening - Other See attached MAR (Medication Administration Record) - Diet Type Continue Regular - Diet - Liquid Texture Continue Regular - Tube Feed Continue N/A - Fall Precaution SAFTY AND FALL - Diet - Solid Texture Continue Regular - Shower allowing shower FUNCTIONAL STATUS: UPDATED AT WEEKLY TEAM CONFERENCE - Bladder Same accident frequency: 7-Ind - No accidents in the past 7 days - Bowel Same accident frequency: 7-Ind - No accidents in the past 7 days - Walking Same score based on distance walked: 0(N/A) Same score based on distance walked: 1(<=50ft) - Wheelchair Same score based on distance traveled: 0(N/A) FUNCTIONAL STATUS: - Self-Care A. Eating Ind D. Dressing - Upper sup E. Dressing - Lower [place] F. Toileting [place] - Sphincter Control G. Bladder control Yadira H. Bowel control Yadira - Transfers Control K. Tub/Shower modA - Locomotion L. Walk/Wheelchair (B) maxA M. Stairs maxA - Communication N. Comprehension (B) Yadira O. Expression (B) Yadira - Social Cognition P. Social Interaction Yadira Q. Problem Solving Yadira R. Memory Yadira - Endurance Fair - Balance Fair - Safety Awareness Fair QI SCORES: - Self-Care A. Eating 03-Partial/moderate assistance B. Oral hygiene 03-Partial/moderate assistance C. Toileting hygiene 03-Partial/moderate assistance E. Shower/bathe self 03-Partial/moderate assistance F. Upper body dressing 03-Partial/moderate assistance G. Lower body dressing 03-Partial/moderate assistance H. Putting on/taking off footwear 88-Not attempted due to medical condition or safety concerns - Mobility A. Roll left and right 04-Supervision or touching assistance B. Sit to lying 03-Partial/moderate assistance C. Lying to sitting on side of bed 03-Partial/moderate assistance D. Sit to stand 03-Partial/moderate assistance E. Chair/afp-hv-pwcar transfer 03-Partial/moderate assistance F. Toilet transfer 03-Partial/moderate assistance G. Car transfer 88-Not attempted due to medical condition or safety concerns I. Walk 10 feet 03-Partial/moderate assistance J. Walk 50 feet with two turns 88-Not attempted due to medical condition or safety concerns K. Walk 150 feet 88-Not attempted due to medical condition or safety concerns L. Walking 10 feet on uneven surfaces 88-Not attempted due to medical condition or safety concerns M. 1 step (curb) 88-Not attempted due to medical condition or safety concerns N. 4 steps 88-Not attempted due to medical condition or safety concerns O. 12 steps 88-Not attempted due to medical condition or safety concerns P. Picking up object 88-Not attempted due to medical condition or safety concerns R. Wheel 50 feet with two turns 88-Not attempted due to medical condition or safety concerns S. Wheel 150 feet 88-Not attempted due to medical condition or safety concerns - Bladder and Bowel Bladder continence Bowel continence - Endurance Fair - Balance Fair - Safety Awareness Fair CURRENT FUNC. DEFICITS: Self-Care, Mobility, Endurance, Balance, and Safety Awareness SIGNATURE PANEL: (OFFAL SEPARATOR)
[2021-05-07] MEDS: ATORVASTATIN 40 MG TAB PO SCH (20:21)
[2021-05-07] MEDS: MIRTAZAPINE 15 MG TAB PO SCH (20:21)
[2021-05-08] MEDS: IPRATROPIUM BROM 0.5MG/2.5ML NEB PRN ×2 (01:23→20:00)
[2021-05-08] MEDS: carvediloL 3.125 MG TAB PO SCH ×2 (05:18→17:01)
[2021-05-08] MEDS: LEVOTHYROXINE SOD 0.025 MG TAB PO SCH (05:18)
[2021-05-08] MEDS: PANTOPRAZOLE 40MG TABLET PO SCH ×2 (07:19→16:59)
[2021-05-08] MEDS: INSULIN -REGULAR HUMAN 50 UNIT/0.5 ML ML SQ SCH ×4 (07:30→19:30)
[2021-05-08] MEDS: INSULIN LISPRO 100 UNIT/1 ML SQ SCH ×3 (07:54→17:00)
[2021-05-08] MEDS: NEPRO SHAKE 237 ML CAN PO SCH ×3 (07:54→17:01)
[2021-05-08] MEDS: INSULIN GLARGINE 100 UNIT/ML SQ SCH (07:54)
[2021-05-08] MEDS: FERROUS SULFATE 325 MG TAB PO SCH (07:55)
[2021-05-08] MEDS: CALCITROL 0.25 MCG CAP PO SCH (07:55)
[2021-05-08] MEDS: ZINC SULFATE 220 MG CAP PO SCH (07:55)
[2021-05-08] MEDS: MIDODRINE HCL 5 MG TABLET PO SCH ×2 (07:55→19:30)
[2021-05-08] MEDS: VITAMIN B COMPLEX 1 CAP PO SCH (07:55)
[2021-05-08] MEDS: APIXABAN 5 MG TABLET PO SCH ×2 (07:55→19:30)
[2021-05-08] MEDS: FE SULF/FA/VIT B COMP & C TAB PO SCH (07:55)
--- NOTE | 2021-05-08 09:47 | P.RH.PN ---
Estimated Length of Stay: 26 Expected Discharge Date: 05/11/21 Discharge Disposition Plan: [facility] Family Support: Yes Care Home Goal: Mobility, Transfers, Self Care Vital Signs: Last Vital Signs Temp 95.7 F L 05/08/21 07:39 Pulse 84 05/08/21 07:39 Resp 18 05/08/21 07:39 BP 120/58 L 05/08/21 07:39 Pulse Ox 91 05/08/21 07:39 Laboratory: Laboratory Last Values WBC 4.70 K/uL (4.3-10.9) D 05/07/21 04:32 RBC 2.83 M/uL (3.86-4.86) L 05/07/21 04:32 Hgb 8.9 g/dL (12.0-15.0) L 05/07/21 04:32 Hct 25.8 % (36.0-45.0) L 05/07/21 04:32 MCV 91.3 fL (80-100) 05/07/21 04:32 MCH 31.4 pg (27.0-35.0) 05/07/21 04:32 MCHC 34.4 g/dL (32.0-36.0) 05/07/21 04:32 RDW 20.4 % (12.1-15.2) H 05/07/21 04:32 Plt Count 137 K/uL (152-406) L 05/07/21 04:32 MPV 6.5 fL (7.6-11.3) L 05/07/21 04:32 Neutrophils % 72.8 % (41.7-73.7) 05/07/21 04:32 Lymphocytes % 14.0 % (15.3-44.8) L 05/07/21 04:32 Monocytes % 9.8 % (3.3-12.3) 05/07/21 04:32 Eosinophils % 2.6 % (0-4.4) 05/07/21 04:32 Basophils % 0.8 % (0-1.3) 05/07/21 04:32 Absolute Neutrophils 3.4 K/uL (1.8-8.0) 05/07/21 04:32 Segmented Neutrophils 85 % (40-80) H 04/20/21 06:36 Band Neutrophils 2 % (0-1) H 04/20/21 06:36 Absolute Lymphocytes 0.7 K/uL (0.7-4.9) 05/07/21 04:32 Lymphocytes 5 % (15-42) L 04/20/21 06:36 Monocytes GRAIN COMMODITY MANAGER 04/20/21 06:36 Absolute Monocytes 0.5 K/uL (0.1-1.3) 05/07/21 04:32 Eosinophils 2 % (0-3) 04/17/21 03:55 Absolute Eosinophils 0.1 K/uL (0-0.5) 05/07/21 04:32 Basophils 1 % (0-1) 04/17/21 03:55 Absolute Basophils 0.0 K/uL (0-0.5) 05/07/21 04:32 Nucleated RBCs 1 /100WBC 04/17/21 03:55 Smudge Cells Present 04/20/21 06:36 Toxic Granulation 2+ 04/17/21 03:55 Platelet Estimate Adeq 05/07/21 04:32 Polychromasia Slight 04/20/21 06:36 Hypochromasia 1+ 04/20/21 06:36 Anisocytosis 1+ 05/07/21 04:32 Macrocytosis Slight 05/07/21 04:32 Morphology Comment Noted (NOT SEEN) 05/07/21 04:32 ESR Westergren 91 mm/HR (0-30) H 04/26/21 06:10 PT 13.5 SECONDS (9.5-12.5) H 04/20/21 06:36 INR 1.17 04/20/21 06:36 Sodium 130 mmol/L (136-145) L 05/07/21 04:32 Potassium 4.2 mmol/L (3.5-5.1) 05/07/21 04:32 Chloride 96 mmol/L (98-107) L 05/07/21 04:32 Carbon Dioxide 27 mmol/L (21-32) 05/07/21 04:32 BUN 60 mg/dL (7-18) H 05/07/21 04:32 Creatinine 4.75 mg/dL (0.55-1.3) H 05/07/21 04:32 Estimated GFR 9 mL/min (=/>90) L 05/07/21 04:32 Glucose 116 mg/dL (74-106) H 05/07/21 04:32 POC Glucose 124 mg/dL (65-120) H 05/08/21 06:50 Calcium 8.3 mg/dL (8.5-10.1) L 05/07/21 04:32 Phosphorus 4.5 mg/dL (2.5-4.9) D 04/27/21 05:10 Magnesium 2.3 mg/dL (1.8-2.4) 05/07/21 04:32 Iron 78.0 ug/dL (50-170) 04/26/21 06:10 TIBC 209 ug/dL (250-460) L 04/23/21 06:28 Transferrin 149 mg/dL (200-360) L 04/23/21 06:28 Transferrin % Sat 39.2 % (20.0-50.0) 04/23/21 06:28 Ferritin 1068.7 ng/mL (8-388) H 04/23/21 06:28 Total Bilirubin 0.8 mg/dL (0.2-1.0) 05/02/21 07:55 AST 20 U/L (15-37) 05/02/21 07:55 ALT 15 U/L (12-78) 05/02/21 07:55 Alkaline Phosphatase 80 U/L (45-117) 05/02/21 07:55 Creatine Kinase 23 U/L (26-192) L 04/26/21 06:10 CK-MB (CK-2) 3.5 ng/mL (1.0-3.6) 04/27/21 10:56 Troponin I High Sens 125.90 pg/mL (<58.9) H* 04/27/21 23:03 NT-Pro-B Natriuret Pep 81822 pg/mL (<450) H 04/26/21 06:10 Serum Total Protein 5.7 g/dL (6.4-8.2) L 05/02/21 07:55 Albumin 2.8 g/dL (3.4-5.0) L 05/07/21 04:32 Globulin 3.3 g/dL (2.3-3.5) 05/02/21 07:55 Albumin/Globulin Ratio 0.7 (1.1-1.8) L 05/02/21 07:55 Prealbumin 22.9 mg/dL (20-40) 05/07/21 04:32 Vitamin B12 1125 pg/mL (193-986) H 04/26/21 06:10 Vit D 1,25-Dihyd Total 21 pg/mL (18-72) 04/23/21 06:28 1,25 Dihydroxy Vit D2 <8 pg/mL 04/23/21 06:28 1,25 Dihydroxy Vit D3 21 pg/mL 04/23/21 06:28 Serum Folate 15.4 ng/mL (3.1-17.5) 04/26/21 06:10 Procalcitonin 0.48 ng/mL (<0.050) H 04/26/21 06:10 TSH 4.250 uIU/mL (0.360-3.740) H 04/26/21 06:10 Free T4 1.23 ng/dL (0.76-1.46) 04/26/21 06:10 PTH Intact 37.8 pg/mL (18.4-80.1) 04/23/21 06:28 Cortisol 22.70 ug/dL (SEE COMMENT) 04/26/21 06:10 Urine Color Yellow (Yellow) 04/17/21 07:30 Urine Appearance Cloudy (Clear) 04/17/21 07:30 Urine pH 5.5 (5.0-7.0) 04/17/21 07:30 Ur Specific [place] 1.015 (1.005-1.030) 04/17/21 07:30 Glucose (UA)(Auto) Negative (Negative) 04/17/21 07:30 Urine Ketones Negative (Negative) 04/17/21 07:30 Urine Blood Trace (Negative) H 04/17/21 07:30 Urine Nitrite Negative (Negative) 04/17/21 07:30 Urine Bilirubin Negative (Negative) 04/17/21 07:30 Urine Urobilinogen 0.2 mg/dL (0.2-1.0) 04/17/21 07:30 Ur Leukocyte Esterase 1+ (Negative) H 04/17/21 07:30 Urine RBC 20-50 /HPF (NONE SEEN) H 04/17/21 07:30 Urine WBC 10-20 /HPF (<5) H 04/17/21 07:30 Ur Squamous Epith Cells 10-20 /HPF (NONE SEEN) H 04/17/21 07:30 Amorphous Sediment 1+ /HPF (NONE SEEN) 04/17/21 07:30 Urine Bacteria 20-50 /HPF (<20) H 04/17/21 07:30 Urine Culture Reflexed Not needed 04/17/21 07:30 Urine Total Protein 2+ (Negative) H 04/17/21 07:30 C. difficile Ag & Toxin Ag neg : tox neg (NEG : NEG) 04/30/21 10:20 Hep Bs Antigen Nonreactive (Nonreactive) 04/19/21 19:00 Hep Bs Antibody Nonreactive (Nonreactive) 04/19/21 19:00 Hep B Core Total Ab Nonreactive (Nonreactive) 04/19/21 19:00 Hepatitis C Antibody Nonreactive (Nonreactive) 04/19/21 19:00 Hep C Ab Signal/Cutoff 0.01 ratio (<1.00) 04/19/21 19:00 SARS-CoV-2 Rap RNA(RT-PCR) Negative (NEGATIVE) 05/06/21 09:45 Smear Scan Ok (OK) 05/07/21 04:32 ABO/Rh A NEGATIVE 04/30/21 14:58 Solid Phase Ab Screen Negative 04/30/21 14:58 Crossmatch See Detail 04/30/21 14:58 Weight: 205 lb 3.2 oz Wound Present: Yes Negative Pressure Wound Therapy Present: No Physician Update: Labs were reviewed are stable given her ESRD on HD. Chest x- ray shows mod pleural effusion with O2 sat drop to 85% on room air after supine to sit exercises. Only 2 showers in 21 days doing sponge baths. Upper body dressing with min assistance. Mod assistance for lower body dressing. Dependent for footware. Contact guard for transfers. Walking 20' with much encouragement, contact guard using a rolling walker. Functional Improvement: Patient continues to self limit requiring heavy VC for mtoivation and continuation of PT services. Patient is physically capable of meeting goals and medically stable however, due to self limitation patient still has not met goals. Summary: Patient's care plan and skilled nursing goals have been reviewed and revised as necessary. Please see the Rehabilitation Signature page for all necessary signatures.
[2021-05-08] MEDS: LIDOCAINE 4% PATCH TOP SCH (11:30)
[2021-05-08] MEDS: ATORVASTATIN 40 MG TAB PO SCH (19:30)
[2021-05-08] MEDS: MIRTAZAPINE 15 MG TAB PO SCH (19:30)
--- NOTE | 2021-05-08 21:15 | P.CNS ---
Date of Consult: 05/08/21 Reason for Consult: ESRD Requesting Physician: Stephen Goetz Chief Complaint: Weakness; fatigue; DVT; ESRD History of Present Illness: 81 yo WF CHF, CAD, CKD, DM presented to the [facility] after an episode of COVID followed by a CABG. During the hospitalization, she was found to have a DVT and started on Eliquis. She reports moderate, persistent weakness and fatigue that is worse after dialysis. Allergies No Known Allergies Allergy (Verified 04/16/21 16:34) Home medications list reviewed: Yes Home Medications: Acetaminophen [Tylenol*] 650 mg PO Q6H PRN tab 05/06/21 Apixaban [Eliquis] 5 mg PO BID tablet 05/06/21 Atorvastatin Calcium [Lipitor] 40 mg PO BEDTIME tab 05/06/21 Calcitrol [Rocaltrol*] 0.25 mcg PO DAILY cap 05/06/21 Docusate [Colace Cap*] 100 mg PO BID PRN cap 05/06/21 Docusate/Senna [Senokot-S*] 2 tab PO BEDTIME PRN tab 05/06/21 Epoetin Carlos-Epbx [Retacrit] 6,000 unit IV TuThSa@1700 vial 05/06/21 Ferrous Sulfate [Ferrous Sulfate*] 325 mg PO DAILY tab 05/06/21 Heparin [Heparin 1,000 units/mL *] 6,000 unit IV EVERY HD PRN vial 05/06/21 Hydrocodone 5/APAP 325 [[employer] 5/325*] 1 tab PO Q4H PRN tab 05/06/21 Insulin -Regular Human [Novolin -R*] See Protocol SQ ACHS ml 05/06/21 Insulin Glargine,Hum.rec.anlog [Semglee] 30 unit SQ DAILY ml 05/06/21 Insulin Lispro [Humalog*] 10 unit SQ TIDWM ml 05/06/21 Ipratropium Neb [Atrovent*] 0.5 mg NEB [id number] PRN amp 05/06/21 Iron/FA/Vit B-Com W/C [Hemocyte Plus*] 1 tab PO DAILY WITH BREAKFAST tab 05/06/21 Lidocaine 4% Patch [Lidoderm 5% Patch*] 1 patch TOP DAILY patch 05/06/21 Melatonin [Melatonin*] 3 mg PO BEDTIME PRN PRN tablet 05/06/21 Midodrine HCl [Proamatine*] 5 mg PO BID tab 05/06/21 Mirtazapine [Remeron*] 15 mg PO BEDTIME tab 05/06/21 Nitroglycerin [Nitrostat*] 0.4 mg SL UD PRN tab 05/06/21 Ondansetron [Zofran (Odt)*] 4 mg PO Q4H PRN tab 05/06/21 Pantoprazole [Protonix Tab*] 40 mg PO BIDAC tab 05/06/21 Polyethyl Gly 3350 [Glycolax*] 17 gm PO BID PRN udbot 05/06/21 Vitamin B Complex [Vitamin B Complex*] 1 cap PO DAILY cap 05/06/21 Zinc Sulfate [Zinc Sulfate*] 220 mg PO DAILY cap 05/06/21 carvediloL [Coreg*] 3.125 mg PO BID 6AM 6PM tab 05/06/21 - Past Medical/Surgical History Diabetic: Yes -: CHF -: CAD -: DM -: Stroke, no residual -: HTN -: CKD on Peritoneal dialysis @[facility] -: Cabg x4 04/06/21 - Family History Father Family History: Reviewed- Non-Contributory - Social History Smoking Status: Unknown if ever smoked Alcohol use: No CD- Drugs: No Caffeine use: Yes Place of Residence: Home Review of Systems 10-point ROS is otherwise unremarkable General: Weakness, Malaise Respiratory: SOB with Excertion Cardiovascular: Edema Neurological: Weakness Physical Examination Temp Pulse Resp BP Pulse Ox 98.8 F 73 18 164/60 H 99 05/08/21 20:33 05/08/21 20:33 05/08/21 20:33 05/08/21 20:33 05/08/21 20:33 General: Oriented x3, Cooperative HEENT: Atraumatic Neck: Supple Respiratory: Clear to auscultation bilaterally Cardiovascular: Regular rate/rhythm, Edema Gastrointestinal: Soft and benign, Non-distended Musculoskeletal: No clubbing, No contractures Integumentary: No rashes, No cyanosis Neurological: Normal speech Blood work reviewed in the chart. Imagings Data: EXAM DESCRIPTION: RAD - Chest Single View - 05/07/2021 11:22 am CLINICAL HISTORY: new HD catheter Chest pain. COMPARISON: Chest Single View dated 04/29/2021; Chest Single View dated 04/27/2021; Abdomen 1 View (KUB) dated 04/26/2021; Chest Single View dated 04/23/2021 FINDINGS: Portable technique limits examination quality. Right-sided venous catheter has been placed with its tip in the SVC. No postprocedure pneumothorax. Moderate CHF pattern with right pleural effusion is again noted. Conclusions/Impression: ESRD -HD TIW Chronic hypotension -Continue Midodrine Diastolic CHF, chronic -HD with UF -Continue Coreg DM II with CKD -Continue Lantus -Continue Lispro -RISS Moderate malnutrition -Continue Nepro Anemia in CKD -Increase Retacrit CKD MBD -Increase Calcitriol LE DVT -Continue Yazmin Case reviewed with her daughter, Aubree. Thank you kindly for the consultation.
[2021-05-09 04:24] VITALS: BMI 34.7
[2021-05-09] MEDS: carvediloL 3.125 MG TAB PO SCH ×2 (05:16→17:05)
[2021-05-09] MEDS: LEVOTHYROXINE SOD 0.025 MG TAB PO SCH (05:16)
[2021-05-09] MEDS: PANTOPRAZOLE 40MG TABLET PO SCH ×2 (06:52→16:59)
[2021-05-09] MEDS: INSULIN -REGULAR HUMAN 50 UNIT/0.5 ML ML SQ SCH ×4 (07:18→22:37)
[2021-05-09] MEDS: LIDOCAINE 4% PATCH TOP SCH (08:07)
[2021-05-09] MEDS: CALCITROL 0.25 MCG CAP PO SCH (08:07)
[2021-05-09] MEDS: APIXABAN 5 MG TABLET PO SCH ×3 (08:08→22:36)
[2021-05-09] MEDS: VITAMIN B COMPLEX 1 CAP PO SCH (08:08)
[2021-05-09] MEDS: MIDODRINE HCL 5 MG TABLET PO SCH ×3 (08:08→22:36)
[2021-05-09] MEDS: FERROUS SULFATE 325 MG TAB PO SCH (08:08)
[2021-05-09] MEDS: INSULIN GLARGINE 100 UNIT/ML SQ SCH (08:26)
[2021-05-09] MEDS: NEPRO SHAKE 237 ML CAN PO SCH ×4 (08:26→17:10)
[2021-05-09] MEDS: INSULIN LISPRO 100 UNIT/1 ML SQ SCH ×4 (08:27→17:09)
[2021-05-09] MEDS: FE SULF/FA/VIT B COMP & C TAB PO SCH (10:16)
[2021-05-09] MEDS: ZINC SULFATE 220 MG CAP PO SCH (10:17)
[2021-05-09] MEDS ORDERED: EPOETIN ALFA 10,000 UNIT/ML VIAL IV SCH (17:00)
[2021-05-09] MEDS: IPRATROPIUM BROM 0.5MG/2.5ML NEB PRN (18:07)
--- NOTE | 2021-05-09 20:02 | P.PN ---
Date of Service: 05/09/21 Vital Signs Temp Pulse Resp BP Pulse Ox 96.4 F L 78 18 127/66 100 05/09/21 07:00 05/09/21 07:00 05/09/21 07:00 05/09/21 07:00 05/09/21 07:00 Medications Acetaminophen (Acetaminophen 325 Mg Tablet) 650 mg PO Q6H PRN PRN Reason: TEMP > 100.4' F Last Admin: 04/17/21 09:45 Dose: 650 mg Documented by: Hydrocodone Bitart/Acetaminophen (Hydrocodone/Apap 5/325 Mg Tab) 1 tab PO Q4H PRN PRN Reason: Pain scale 5-7 (Moderate) Last Admin: 04/24/21 22:09 Dose: 1 tab Documented by: Apixaban (Apixaban 5 Mg Tablet) 5 mg PO BID [facility] Last Admin: 05/09/21 08:08 Dose: 5 mg Documented by: Atorvastatin Calcium (Atorvastatin 40 Mg Tab) 40 mg PO BEDTIME [facility] Last Admin: 05/08/21 19:30 Dose: 40 mg Documented by: Calcitriol (Calcitrol 0.25 Mcg Cap) 0.5 mcg PO DAILY [facility] Last Admin: 05/09/21 08:07 Dose: 0.5 mcg Documented by: Carvedilol (Carvedilol 3.125 Mg Tab) 3.125 mg PO BID 6AM 6PM [facility] Last Admin: 05/09/21 17:05 Dose: Not Given Documented by: Docusate Sodium (Docusate Na 100 Mg Cap) 100 mg PO BID PRN PRN Reason: CONSTIPATION Enteral Nutritional Formula (Nepro Shake 237 Ml Can) 237 ml PO 0800,1200,1700 [facility] Last Admin: 05/09/21 17:00 Dose: Not Given Documented by: Epoetin Carlos (Epoetin Carlos 10,000 Unit/Ml Vial) 10,000 unit IV TuThSa@1700 [facility] Ferrous Sulfate (Ferrous Sulfate 325 Mg Tab) 325 mg PO DAILY [facility] Last Admin: 05/09/21 08:08 Dose: 325 mg Documented by: Glucagon (Glucagon 1 Mg/Vial) 1 mg IM 1X PRN; Protocol PRN Reason: HYPOGLYCEMIA Heparin Sodium (Porcine) (Heparin 1,000 Unit/Ml Vial) 6,000 unit IV EVERY HD PRN PRN Reason: AFTER EACH Dextrose (Dextrose 10% Water Iv Soln.) 125 mls @ 0 mls/hr IV PRN PRN; Protocol PRN Reason: HYPOGLYCEMIA Insulin Glargine (Insulin Glargine 100 Unit/Ml) 30 unit SQ DAILY [facility] Last Admin: 05/09/21 08:26 Dose: 30 unit Documented by: Insulin Human Lispro (Insulin Lispro 100 Unit/1 Ml) 10 unit SQ TIDWM [facility] Last Admin: 05/09/21 17:00 Dose: Not Given Documented by: Insulin Human Regular (Insulin -Regular Human 50 Unit/0.5 Ml Ml) 0 unit SQ ACHS [facility]; Protocol Last Admin: 05/09/21 16:30 Dose: Not Given Documented by: Ipratropium [place] (Ipratropium Brom 0.5mg/2.5ml) 0.5 mg NEB [id number] PRN PRN Reason: SHORTNESS OF BREATH Last Admin: 05/09/21 18:07 Dose: 0.5 mg Documented by: Levothyroxine Sodium (Levothyroxine Sod 0.025 Mg Tab) 0.025 mg PO 0600 [facility] Last Admin: 05/09/21 05:16 Dose: 0.025 mg Documented by: Lidocaine (Lidocaine 4% Patch) 1 patch TOP DAILY [facility] Last Admin: 05/09/21 08:07 Dose: 1 patch Documented by: Melatonin (Melatonin 3 Mg Tablet) 3 mg PO BEDTIME PRN PRN PRN Reason: INSOMNIA Last Admin: 04/24/21 22:09 Dose: 3 mg Documented by: Midodrine (Midodrine Hcl 5 Mg Tablet) 5 mg PO BID [facility] Last Admin: 05/09/21 08:08 Dose: 5 mg Documented by: Mirtazapine (Mirtazapine 15 Mg Tab) 15 mg PO BEDTIME [facility] Last Admin: 05/08/21 19:30 Dose: 15 mg Documented by: Multivitamins/Iron (Fe Sulf/Fa/Vit B Comp & C Tab) 1 tab PO DAILY WITH BREAKFAST [facility] Last Admin: 05/09/21 10:16 Dose: 1 tab Documented by: Nitroglycerin (Nitroglycerin 0.4 Mg/Tab) 0.4 mg SL UD PRN PRN Reason: Pain scale 2-4 (Mild) Ondansetron HCl (Ondansetron 4 Mg (Odt) Tab) 4 mg PO Q4H PRN PRN Reason: NAUSEA / VOMITING Last Admin: 05/03/21 07:00 Dose: 4 mg Documented by: Pantoprazole Sodium (Pantoprazole 40mg Tablet) 40 mg PO BIDAC [facility]; Protocol Last Admin: 05/09/21 16:59 Dose: 40 mg Documented by: Polyethylene Glycol (Polyethyl Gly 3350 17 Gm/Dose) 17 gm PO BID PRN PRN Reason: CONSTIPATION Senna/Docusate Sodium (Docusate Na/Senna Conc 1 Tab) 2 tab PO BEDTIME PRN PRN Reason: CONSTIPATION Last Admin: 04/17/21 20:10 Dose: 2 tab Documented by: Vitamin B Complex (Vitamin B Complex 1 Cap) 1 cap PO DAILY [facility] Last Admin: 05/09/21 08:08 Dose: 1 cap Documented by: Zinc Sulfate (Zinc Sulfate 220 Mg Cap) 220 mg PO DAILY [facility] Last Admin: 05/09/21 10:17 Dose: 220 mg Documented by: Lab Results (last 24 hrs) 05/09/21 16:35: POC Glucose 145 H 05/09/21 11:39: POC Glucose 155 H 05/09/21 07:10: POC Glucose 136 H Microbiology Results 04/27/21 10:56 Blood - Blood Aerobic Blood Culture - Final No growth in 5 days. 04/27/21 10:56 Blood - Blood Anaerobic Blood Culture - Final 04/27/21 10:56 Blood - Blood Gram Stain - Final 04/27/21 17:12 Blood - Blood Aerobic Blood Culture - Final No growth in 5 days. 04/27/21 17:12 Blood - Blood Anaerobic Blood Culture - Final No growth in 5 days. 04/27/21 10:45 Blood - Blood Aerobic Blood Culture - Final No growth in 5 days. 04/27/21 10:45 Blood - Blood Anaerobic Blood Culture - Final 04/30/21 10:20 Stool Occult Blood - Final 04/17/21 07:30 Clean Catch Urine [place] Count - Final No growth. 04/17/21 07:30 Clean Catch Urine - Final No growth. Assessment/ Plan: Nephrology No dyspnea No chest pain Weakness and fatigue No acute events overnight Vitals, medications, blood work and imaging reviewed in the chart. General: Oriented x3, Cooperative HEENT: Atraumatic Neck: Supple Respiratory: Clear to auscultation bilaterally Cardiovascular: Regular rate/rhythm, Edema Gastrointestinal: Soft and benign, Non-distended Musculoskeletal: No clubbing, No contractures Integumentary: No rashes, No cyanosis Neurological: Normal speech Blood work reviewed in the chart. Imagings Data: EXAM DESCRIPTION: RAD - Chest Single View - 05/07/2021 11:22 am CLINICAL HISTORY: new HD catheter Chest pain. COMPARISON: Chest Single View dated 04/29/2021; Chest Single View dated 04/27/2021; Abdomen 1 View (KUB) dated 04/26/2021; Chest Single View dated 04/23/2021 FINDINGS: Portable technique limits examination quality. Right-sided venous catheter has been placed with its tip in the SVC. No postprocedure pneumothorax. Moderate CHF pattern with right pleural effusion is again noted. Conclusions/Impression: ESRD -HD TIW Chronic hypotension -Continue Midodrine Diastolic CHF, chronic -HD with UF -Continue Coreg DM II with CKD -Continue Lantus -Continue Lispro -RISS Moderate malnutrition -Continue Nepro Anemia in CKD -Continue Retacrit CKD MBD -Continue Calcitriol LE DVT -Continue Yazmin Case reviewed with her daughter, Aubree.
[2021-05-09] MEDS: MIRTAZAPINE 15 MG TAB PO SCH ×2 (21:00→22:36)
[2021-05-09] MEDS: ATORVASTATIN 40 MG TAB PO SCH ×2 (21:00→22:36)
[2021-05-10] MEDS: carvediloL 3.125 MG TAB PO SCH ×2 (05:16→16:33)
[2021-05-10] MEDS: LEVOTHYROXINE SOD 0.025 MG TAB PO SCH (05:16)
[2021-05-10 06:27] LABS: Absolute Lymphocytes (CBC) 0.5 K/uL (0.7-4.9); Hematocrit 27.2 % (36.0-45.0); Lymphocytes % 12.3 % (15.3-44.8); MPV 6.3 fL (7.6-11.3); RBC Red Blood Cell Count 2.93 M/uL (3.86-4.86)
[2021-05-10 06:45] LABS: Albumin 2.6 g/dL (3.4-5.0); Phosphorus 1.9 mg/dL (2.5-4.9)
[2021-05-10] MEDS: LIDOCAINE 4% PATCH TOP SCH (06:45)
[2021-05-10] MEDS: INSULIN -REGULAR HUMAN 50 UNIT/0.5 ML ML SQ SCH ×4 (07:19→19:55)
[2021-05-10] MEDS: PANTOPRAZOLE 40MG TABLET PO SCH ×2 (07:34→15:54)
[2021-05-10] MEDS: IPRATROPIUM BROM 0.5MG/2.5ML NEB SCH ×2 (07:38→23:16)
[2021-05-10] MEDS: NEPRO SHAKE 237 ML CAN PO SCH ×3 (08:00→15:52)
[2021-05-10] MEDS: CALCITROL 0.25 MCG CAP PO SCH (08:32)
[2021-05-10] MEDS: APIXABAN 5 MG TABLET PO SCH ×2 (08:32→19:55)
[2021-05-10] MEDS: MIDODRINE HCL 5 MG TABLET PO SCH ×2 (08:33→19:54)
[2021-05-10] MEDS: INSULIN LISPRO 100 UNIT/1 ML SQ SCH ×3 (09:02→15:52)
[2021-05-10] MEDS: INSULIN GLARGINE 100 UNIT/ML SQ SCH (09:02)
[2021-05-10] MEDS: VITAMIN B COMPLEX 1 CAP PO SCH (09:24)
[2021-05-10] MEDS: FERROUS SULFATE 325 MG TAB PO SCH (09:24)
[2021-05-10] MEDS: ZINC SULFATE 220 MG CAP PO SCH (09:24)
[2021-05-10] MEDS: FE SULF/FA/VIT B COMP & C TAB PO SCH (09:24)
[2021-05-10 10:09] LABS: Anisocytosis 1+; Blood Morphology Comment NOTED (NOT SEEN); Platelet Estimate ADEQ; Poikilocytosis 1+; White Blood Cell Scan OK (OK)
[2021-05-10] MEDS: ATORVASTATIN 40 MG TAB PO SCH (19:54)
[2021-05-10] MEDS: MIRTAZAPINE 15 MG TAB PO SCH (19:55)
[2021-05-11] MEDS: carvediloL 3.125 MG TAB PO SCH (05:01)
[2021-05-11] MEDS: LEVOTHYROXINE SOD 0.025 MG TAB PO SCH (05:01)
[2021-05-11] MEDS: INSULIN -REGULAR HUMAN 50 UNIT/0.5 ML ML SQ SCH ×2 (07:09→11:30)
[2021-05-11 07:12] VITALS: BP 137/61; TEMP 96.7
[2021-05-11] MEDS: PANTOPRAZOLE 40MG TABLET PO SCH (07:16)
[2021-05-11] MEDS: LIDOCAINE 4% PATCH TOP SCH (08:00)
[2021-05-11] MEDS: NEPRO SHAKE 237 ML CAN PO SCH ×2 (08:00→12:00)
[2021-05-11] MEDS: IPRATROPIUM BROM 0.5MG/2.5ML NEB SCH (08:30)
[2021-05-11] MEDS: APIXABAN 5 MG TABLET PO SCH (08:56)
[2021-05-11] MEDS: INSULIN LISPRO 100 UNIT/1 ML SQ SCH ×2 (08:57→11:44)
[2021-05-11] MEDS: MIDODRINE HCL 5 MG TABLET PO SCH (08:57)
[2021-05-11] MEDS: CALCITROL 0.25 MCG CAP PO SCH (08:57)
[2021-05-11] MEDS: FERROUS SULFATE 325 MG TAB PO SCH (08:57)
[2021-05-11] MEDS: INSULIN GLARGINE 100 UNIT/ML SQ SCH (08:58)
[2021-05-11] MEDS: VITAMIN B COMPLEX 1 CAP PO SCH (09:21)
[2021-05-11] MEDS: ZINC SULFATE 220 MG CAP PO SCH (09:21)
[2021-05-11] MEDS: FE SULF/FA/VIT B COMP & C TAB PO SCH (09:21)
[2021-05-11 09:39] VITALS: O2SAT 97
--- NOTE | 2021-05-11 17:26 | R.PN ---
PROGRESS NOTES ENCOUNTER DATE AND TIME: 05/11/2021 17:21 (CDT) NAME NOEL REAL DATE OF : 1940 DATE OF ADMISSION: 04/16/2021 16:24 (RFID SPECIALIST) ISCHEMIC CARDIOMYOPATHY CABG [id number] COMPLAINT: Cardiac debility s/p 4 vessel CABG. SUBJECTIVE: Pt denied any depression. Pt denied any Shortness of Breath. Cardiac debility, S/P 4 vessel CABG. WBC 4.2, Hgb 9.2. Shirt Ironer Supervisor 4.88, Ca 8.1, Na 134, glucose 87 to 147. UA: 1+ esterase, WBC 10-20, bacteria 2 0-50. Renal service is doing HD after a port was placed by general surgery. Repeat chest x-ray 04-20-21 shows mild interstitial pulmonary edema. No changes from interval exam. Patient states that pain is under control. Hep Bs antigen testing, nonreactive. ECHO: EF 46% with mild global hypokinesis. COVID-19 test is negative on 05/04/2021, 05/06/2021 and 05/11/21. Repeat left lower extremity Doppler shows acute/subacute left greater saphenous vein and femoral vein into the knee. Hematoma in the left hip extending to the left knee. CT scan of the left knee, femur and knee is ordered. Eliquis 5 mg bid. Her temporary dialysis was converted to permanent access and she will be discharged to SNF today. VITAL SIGNS Temperature: 97.5 F Resp: 16 Pulse: 84 SBP/DBP: 137/61 MEDICATION ALLERGIES: No Known Drug Allergies (NKDA) ENVIRONMENTAL ALLERGIES: - Substance Allergies None Known - Other Allergies None Known NURSING: - Shower allowing shower PRECAUTIONS: - Fall Precaution SAFTY AND FALL ACTIVITIES OOB only with supervision THERAPIES: - Dietary and Nutrition Adequate Nutrition. Nutritional Education. Nutritional Supplements. - Occupational Therapy Cognitive Retraining. Visual Perceptual Training. ADL Training. Adaptive Equipment. Evaluate and Glenny t. Safety Awareness. Transfer Training. Patient/Family Education. - Speech Therapy Cognitive Training. Expressive Language Skills. Memory Strategies. Receptive Language Skills. Speech Intelligibility Training. Evaluate and Treat. - Physical Therapy Mobility Training. Gait Training. Safety Awareness. Transfer Training. Balance Training. Evaluate and Treat. PHYSICAL EXAM - Gen Alert and awake Lying in bed No apparent distress Oriented to: person, time, and place - Skin Surgical sites on left and right legs shows good hemostasis. Mild to moderate size blisters on medial left and right thighs. No abnormalities - Eyes No abnormalities - ENMT No abnormalities - Neck No abnormalities - CVS RRR - Chest Chest incision is healing with good hemostasis. - Resp No wheezing - Abd Soft - GI nondistended Deferred - No abnormalities - Ext Moderate edema in both lower extremities. - MSK 4/5 weakness in both lower extremities. - Neuro No focal deficits - Psych Mild anxiety. ASSESSMENT: Pt. is a 80 yo Right-handed female.On 04/06/2021 she was admitted to [facility] with diagnosis ISCHEMI C CARDIOMYOPATHY CABG X4.Her impairment category is Cardiac 09 - Cardiac Disorders (09).Pre-morbidly , Pt. was independent/mod-I in Locomotion, Safety Awareness, Social Cognition, and Balance; and she h ad good Sphincter Control, Self-Care, Communication, and Endurance.Currently, she has deficits of Loc omotion, Safety Awareness, Social Cognition, Balance, Transfers Control, Sphincter Control, Self-Care , Communication, and Endurance.Pt. is now referred to [facility] for acute in- patient rehabilitation in order to maximize patient's functional independence in activities of daily living, strength, ROM, and mobility.- Rehab Goal Patient has realistic goal of being discharged at assistance level 7-Ind to reside at Home with Pt s elf. MDM/PLAN: - Physical Therapy Gait dysfunction - to improve, our physical therapists will perform initial evaluation of pt's statu s upon admission and devise an individualized program for Gait Training, and Wheel Chair mobility Inability to transfer - to improve, our physical therapists will perform initial evaluation of pt's status upon admission and devise an individualized program for Bed mobility Need for home safety evaluation - to improve, our physical therapists will perform initial evaluatio n of pt's status upon admission and devise an individualized program for Home Evaluation Need in caregiver upon discharge - to improve, our physical therapists will perform initial evaluati on of pt's status upon admission and devise an individualized program for Caregiver Training New precaution - to improve, our physical therapists will perform initial evaluation of pt's status upon admission and devise an individualized program for Patient precaution education Edema - to improve, our physical therapists will perform initial evaluation of pt's status upon admi ssion and devise an individualized program for Elevation Training, and Lymphedema Therapy Poor balance - to improve, our physical therapists will perform initial evaluation of pt's status up on admission and devise an individualized program for Balance Training Poor endurance - to improve, our physical therapists will perform initial evaluation of pt's status upon admission and devise an individualized program for Endurance Training Weakness - to improve, our physical therapists will perform initial evaluation of pt's status upon a dmission and devise an individualized program for Aquatic Therapy, Neuromuscular Reeducation, and Str engthening Achieving independence - to improve, our physical therapists will perform initial evaluation of pt's status upon admission and devise an individualized program for Community Reintegration Activities - Occupational Therapy ADL deficits - to improve, our occupation therapists will perform initial evaluation of pt's status upon admission and devise an individualized program for Bathing, Bed mobility, Community Reintegratio n, Cooking, Dressing, Eating, Fine Motor Skills, Grooming, Homemaking, Kitchen Mobility, Laundry, Pat ient Education, Safety Awareness, Splinting - Positioning, Transfers(Toilet, Tub, Shower), and Wheel Chair Management Cognitive deficits - to improve, our occupation therapists will perform initial evaluation of pt's s tatus upon admission and devise an individualized program for Cognition - orientation Need for skin care specialist - to improve, our occupation therapists will perform initial evaluation of pt's status upon admission and devise an individualized program for Caregiver Training Weakness - to improve, our occupation therapists will perform initial evaluation of pt's status upon admission and devise an individualized program for Aquatic Therapy, Balance, Endurance, UE ROM, and UE strengthening - Other See attached MAR (Medication Administration Record) - Diet Type Continue Regular - Diet - Liquid Texture Continue Regular - Tube Feed Continue N/A - Fall Precaution SAFTY AND FALL - Diet - Solid Texture Continue Regular - Shower allowing shower FUNCTIONAL STATUS: UPDATED AT WEEKLY TEAM CONFERENCE - Bladder Same accident frequency: 7-Ind - No accidents in the past 7 days - Bowel Same accident frequency: 7-Ind - No accidents in the past 7 days - Walking Same score based on distance walked: 0(N/A) Same score based on distance walked: 1(<=50ft) - Wheelchair Same score based on distance traveled: 0(N/A) FUNCTIONAL STATUS: - Self-Care A. Eating Ind D. Dressing - Upper sup E. Dressing - Lower [place] F. Toileting [place] - Sphincter Control G. Bladder control Yadira H. Bowel control Yadira - Transfers Control K. Tub/Shower modA - Locomotion L. Walk/Wheelchair (B) maxA M. Stairs maxA - Communication N. Comprehension (B) Yadira O. Expression (B) Ydaira - Social Cognition P. Social Interaction Yadira Q. Problem Solving Yadira R. Memory Yadira - Endurance Fair - Balance Fair - Safety Awareness Fair QI SCORES: - Self-Care A. Eating 03-Partial/moderate assistance B. Oral hygiene 03-Partial/moderate assistance C. Toileting hygiene 03-Partial/moderate assistance E. Shower/bathe self 03-Partial/moderate assistance F. Upper body dressing 03-Partial/moderate assistance G. Lower body dressing 03-Partial/moderate assistance H. Putting on/taking off footwear 88-Not attempted due to medical condition or safety concerns - Mobility A. Roll left and right 04-Supervision or touching assistance B. Sit to lying 03-Partial/moderate assistance C. Lying to sitting on side of bed 03-Partial/moderate assistance D. Sit to stand 03-Partial/moderate assistance E. Chair/ody-mr-vhlje transfer 03-Partial/moderate assistance F. Toilet transfer 03-Partial/moderate assistance G. Car transfer 88-Not attempted due to medical condition or safety concerns I. Walk 10 feet 03-Partial/moderate assistance J. Walk 50 feet with two turns 88-Not attempted due to medical condition or safety concerns K. Walk 150 feet 88-Not attempted due to medical condition or safety concerns L. Walking 10 feet on uneven surfaces 88-Not attempted due to medical condition or safety concerns M. 1 step (curb) 88-Not attempted due to medical condition or safety concerns N. 4 steps 88-Not attempted due to medical condition or safety concerns O. 12 steps 88-Not attempted due to medical condition or safety concerns P. Picking up object 88-Not attempted due to medical condition or safety concerns R. Wheel 50 feet with two turns 88-Not attempted due to medical condition or safety concerns S. Wheel 150 feet 88-Not attempted due to medical condition or safety concerns - Bladder and Bowel Bladder continence Bowel continence - Endurance Fair - Balance Fair - Safety Awareness Fair CURRENT FUNC. DEFICITS: Self-Care, Mobility, Endurance, Balance, and Safety Awareness SIGNATURE PANEL: (CDT)
--- NOTE | 2021-05-11 21:17 | P.PN ---
Date of Service: 05/11/21 Vital Signs Temp Pulse Resp BP Pulse Ox 96.7 F L 84 16 137/61 100 05/11/21 07:11 05/11/21 07:11 05/11/21 07:11 05/11/21 07:11 05/11/21 07:11 Lab Results (last 24 hrs) 05/11/21 12:10: SARS-CoV-2 Rap RNA(RT-PCR) Negative 05/11/21 11:39: POC Glucose 87 05/11/21 06:57: POC Glucose 113 Microbiology Results 04/27/21 10:56 Blood - Blood Aerobic Blood Culture - Final No growth in 5 days. 04/27/21 10:56 Blood - Blood Anaerobic Blood Culture - Final 04/27/21 10:56 Blood - Blood Gram Stain - Final 04/27/21 17:12 Blood - Blood Aerobic Blood Culture - Final No growth in 5 days. 04/27/21 17:12 Blood - Blood Anaerobic Blood Culture - Final No growth in 5 days. 04/27/21 10:45 Blood - Blood Aerobic Blood Culture - Final No growth in 5 days. 04/27/21 10:45 Blood - Blood Anaerobic Blood Culture - Final 04/30/21 10:20 Stool Occult Blood - Final 04/17/21 07:30 Clean Catch Urine [place] Count - Final No growth. 04/17/21 07:30 Clean Catch Urine - Final No growth. Assessment/ Plan: Nephrology No dyspnea No chest pain Weakness and fatigue Depressed No acute events overnight Vitals, medications, blood work and imaging reviewed in the chart. General: Oriented x3, Cooperative. Obese. HEENT: Atraumatic Neck: Supple Respiratory: Clear to auscultation bilaterally Cardiovascular: Regular rate/rhythm, Edema Gastrointestinal: Soft and benign, Non-distended Musculoskeletal: No clubbing, No contractures Integumentary: No rashes, No cyanosis Neurological: Normal speech Blood work reviewed in the chart. Imagings Data: EXAM DESCRIPTION: RAD - Chest Single View - 05/07/2021 11:22 am CLINICAL HISTORY: new HD catheter Chest pain. COMPARISON: Chest Single View dated 04/29/2021; Chest Single View dated 04/01; Abdomen 1 View (KUB) dated 04/26/2021; Chest Single View dated 04/23/2021 FINDINGS: Portable technique limits examination quality. Right-sided venous catheter has been placed with its tip in the SVC. No postprocedure pneumothorax. Moderate CHF pattern with right pleural effusion is again noted. Conclusions/Impression: ESRD -HD TIW Chronic hypotension -Continue Midodrine Diastolic CHF, chronic -HD with UF -Continue Coreg DM II with CKD -Continue Lantus -Continue Lispro -RISS Moderate malnutrition -Continue Nepro Anemia in CKD -Continue Retacrit CKD MBD -Continue Calcitriol LE DVT -Continue Yazmin Case reviewed with her daughter, Aubree.
--- NOTE | 2021-05-13 16:58 | R.DS ---
DISCHARGE SUMMARY FACILITY [facility] MR# [id number] NAME NOEL REAL ADDRESS [id number] [place] [address] [address] [id number] PHONE DATE OF 1940 AGE 80 SSN# [id number] GENDER Female MARITAL STATUS ENCOUNTER PHYSICIAN Dr. Stephen Goetz M.D. REFERRING DOCTOR MIRANDA LUI MD REFERRING FACILITY [facility] JOEY JOSUE-JEY DISCHARGE DIAGNOSIS: - Cardiac 09 - Cardiac Disorders (09) ISCHEMIC CARDIOMYOPATHY CABG X4. DATE OF ADMISSION 04/16/2021 16:24 (MANAGER SOCIAL MEDIA) MEDICATION ALLERGIES: No Known Drug Allergies (NKDA) ENVIRONMENTAL ALLERGIES: - Substance Allergies None Known - Other Allergies None Known DISCHARGE MEDICATIONS: Other- ContinueSee attached MAR (Medication Administration Record). NURSING: - Shower allowing shower PRECAUTIONS: - Fall Precaution SAFTY AND FALL ACTIVITIES OOB only with supervision THERAPIES: - Dietary and Nutrition Adequate Nutrition Nutritional Education Nutritional Supplements - Occupational Therapy Cognitive Retraining Visual Perceptual Training ADL Training Adaptive Equipment Evaluate and Treat Safety Awareness Transfer Training Patient/Family Education - Speech Therapy Cognitive Training Expressive Language Skills Memory Strategies Receptive Language Skills Speech Intelligibility Training Evaluate and Treat - Physical Therapy Mobility Training Gait Training Safety Awareness Transfer Training Balance Training Evaluate and Treat HISTORY OF PRESENT ILLNESS: Pt. is a 80 yo Right-handed female.On 04/06/2021 she was admitted to [facility] with diagnosis ISCHEMI C CARDIOMYOPATHY CABG X4.Her impairment category is Cardiac 09 - Cardiac Disorders ().Pre-morbidly , Pt. was independent/mod-I in Locomotion, Safety Awareness, Social Cognition, and Balance; and she h ad good Sphincter Control, Self-Care, Communication, and Endurance.Currently, she has deficits of Loc omotion, Safety Awareness, Social Cognition, Balance, Transfers Control, Sphincter Control, Self-Care , Communication, and Endurance.Pt. is now referred to [facility] for acute in- patient rehabilitation in order to maximize patient's functional independence in activities of daily living, strength, ROM, and mobility.- Rehab Goal Patient has realistic goal of being discharged at assistance level 7-Ind to reside at Home with Pt s elf. DIET - LIQUID TEXTURE: On 04/15/2021 Pt was upgraded to Regular Diet - Liquid Texture. DIET - SOLID TEXTURE: On 04/15/2021 Pt was upgraded to Regular Diet - Solid Texture. DIET TYPE: On 04/15/2021 Pt was upgraded to Regular Diet Type. FALL PRECAUTION: On 04/15/2021 the following precautions were added for the patient: Fall Precaution - SAFTY AND FALL. On 04/17/2021 the following precautions were added for the patient: Fall Precaution - SAFTY AND FALL . On 04/20/2021 the following precautions were removed for the patient: Fall Precaution - SAFTY AND FA LL. On 04/20/2021 the following precautions were added for the patient: Fall Precaution - SAFTY AND FALL . The following precautions were removed for the patient: Fall Precaution - SAFTY AND FALL, and Fall Pr ecaution - SAFTY AND FALL. TUBE FEED: On 04/15/2021 Pt was changed to N/A Tube Feed. DISCHARGE PHYSICAL EXAM - Gen Alert and awake Lying in bed No apparent distress Oriented to: person, time, and place - Skin Surgical sites on left and right legs shows good hemostasis. Mild to moderate size blisters on medial left and right thighs. No abnormalities - Eyes No abnormalities - ENMT No abnormalities - Neck No abnormalities - CVS RRR - Chest Chest incision is healing with good hemostasis. - Resp No wheezing - Abd Soft - GI nondistended Deferred - No abnormalities - Ext Moderate edema in both lower extremities. - MSK 4/5 weakness in both lower extremities. - Neuro No focal deficits - Psych Mild anxiety. FUNCTIONAL STATUS: - Self-Care A. Eating 7-Ind D. Dressing - Upper 5-sup E. Dressing - Lower 5-sup F. Toileting 5-sup - Sphincter Control G. Bladder control 6-Yadira H. Bowel control 6-Yadira - Transfers Control K. Tub/Shower 4-Jessee - Locomotion L. Walk/Wheelchair (B) 4-Jessee M. Stairs 2-maxA - Communication N. Comprehension (B) 6-Ydaira O. Expression (B) 6-Yadira - Social Cognition P. Social Interaction 6-Yadira Q. Problem Solving 6-Yadira R. Memory 6-Yadira - Endurance Fair - Balance Fair - Safety Awareness Fair QI SCORES: - Self-Care A. Eating 03-Partial/moderate assistance B. Oral hygiene 03-Partial/moderate assistance C. Toileting hygiene 03-Partial/moderate assistance E. Shower/bathe self 03-Partial/moderate assistance F. Upper body dressing 03-Partial/moderate assistance G. Lower body dressing 03-Partial/moderate assistance H. Putting on/taking off footwear 88-Not attempted due to medical condition or safety concerns - Mobility A. Roll left and right 04-Supervision or touching assistance B. Sit to lying 03-Partial/moderate assistance C. Lying to sitting on side of bed 03-Partial/moderate assistance D. Sit to stand 03-Partial/moderate assistance E. Chair/[id number] transfer 03-Partial/moderate assistance F. Toilet transfer 03-Partial/moderate assistance G. Car transfer 88-Not attempted due to medical condition or safety concerns I. Walk 10 feet 03-Partial/moderate assistance J. Walk 50 feet with two turns 88-Not attempted due to medical condition or safety concerns K. Walk 150 feet 88-Not attempted due to medical condition or safety concerns L. Walking 10 feet on uneven surfaces 88-Not attempted due to medical condition or safety concerns M. 1 step (curb) 88-Not attempted due to medical condition or safety concerns N. 4 steps 88-Not attempted due to medical condition or safety concerns O. 12 steps 88-Not attempted due to medical condition or safety concerns P. Picking up object 88-Not attempted due to medical condition or safety concerns R. Wheel 50 feet with two turns 88-Not attempted due to medical condition or safety concerns S. Wheel 150 feet 88-Not attempted due to medical condition or safety concerns - Bladder and Bowel Bladder continence Bowel continence - Endurance Fair - Balance Fair - Safety Awareness Fair DISCHARGE INSTRUCTIONS: - N/A Aspirin 81 mg daily, Eliquis 2.5 mg bid. DISCHARGE PLAN, FOLLOW UP CARE PROVISIONS: - Estimated Length of Stay (days) 10. - Consensus on plan Discharge plan has been discussed with primary caregiver. Patient/Family is in agreement with the antonino n. Primary caregiver is in agreement with the plan. - Patient/Family Goals Return home independently. - Planned Living Setting Upon Discharge Home, to live alone. Transitional Living. Primary caregiver: Pt self. SIGNATURE PANEL: (CDT)
== END 2021-05-11 14:30 | DRG 949 ==
LOC: 5TH 04-16 16:24
PROVIDERS: ADMIT Psychiatry & Neurology Neurology with Special Qualifications in Child Neurology; ATTEND Psychiatry & Neurology Neurology with Special Qualifications in Child Neurology
PROC: 02HV33Z Insertion of Infusion Device into Superior Vena Cava, Percutaneous Approach (ICD-10-PCS; 2021-04-19)
PROC: 5A1D70Z Performance of Urinary Filtration, Intermittent, Less than 6 Hours Per Day (ICD-10-PCS; 2021-04-19)
PROC: 30233N1 Transfusion of Nonautologous Red Blood Cells into Peripheral Vein, Percutaneous Approach (ICD-10-PCS; 2021-04-30)
PROC: 02HV33Z Insertion of Infusion Device into Superior Vena Cava, Percutaneous Approach (ICD-10-PCS; 2021-05-07)
PROC: 0JH63XZ Insertion of Tunneled Vascular Access Device into Chest Subcutaneous Tissue and Fascia, Percutaneous Approach (ICD-10-PCS; principal; 2021-05-07 09:00)
DX: Z48.812 Encounter for surgical aftercare following surgery on the circulatory system (principal); N18.6 End stage renal disease; I50.32 Chronic diastolic (congestive) heart failure; I13.2 Hypertensive heart and chronic kidney disease with heart failure and with stage 5 chronic kidney disease, or end stage renal disease; E44.0 Moderate protein-calorie malnutrition; N25.81 Secondary hyperparathyroidism of renal origin; E11.22 Type 2 diabetes mellitus with diabetic chronic kidney disease; D63.1 Anemia in chronic kidney disease; E11.649 Type 2 diabetes mellitus with hypoglycemia without coma; I95.89 Other hypotension; E87.5 Hyperkalemia; I25.10 Atherosclerotic heart disease of native coronary artery without angina pectoris; N25.0 Renal osteodystrophy; E78.5 Hyperlipidemia, unspecified; M89.9 Disorder of bone, unspecified; R77.8 Other specified abnormalities of plasma proteins; Z68.34 Body mass index [BMI] 34.0-34.9, adult; Z86.73 Personal history of transient ischemic attack (TIA), and cerebral infarction without residual deficits; Z86.16 Personal history of COVID-19; Z95.0 Presence of cardiac pacemaker; Z79.01 Long term (current) use of anticoagulants; Z95.1 Presence of aortocoronary bypass graft; Z86.718 Personal history of other venous thrombosis and embolism; Z99.2 Dependence on renal dialysis; Z79.4 Long term (current) use of insulin; Z79.899 Other long term (current) drug therapy; Z79.82 Long term (current) use of aspirin; Z79.02 Long term (current) use of antithrombotics/antiplatelets; Z95.828 Presence of other vascular implants and grafts; Z20.822 Contact with and (suspected) exposure to COVID-19
CPT/HCPCS: 36415; 71045; 73700; 74018; 74176; 76000; 80048; 80053; 80069; 81001; 82040; 82274; 82533; 82550; 82553; 82607; 82652; 82728; 82746; 82947; 83540; 83735; 83880; 83970; 84100; 84134; 84145; 84439; 84443; 84466; 84484; 85025; 85610; 85652; 86704; 86706; 86803; 86850; 86900; 86901; 87040; 87086; 87088; 87205; 87324; 87340; 87449; 88300; 90935; 92523; 93005; 93306; 93970; 93971; 94010; 94640; 97110; 97112; 97116; 97162; 97165; 97530; 97535; 97542; C1752; J0690; J1644; J1815; J2704; J3010; J7040; J7060; P9016; P9047; Q5105; Q5106; U0003

== ENCOUNTER 2021-08-05 16:08 | Inpatient (IN) | payer MEDICARE ==
--- OUTSIDE RECORDS SUMMARY | 2021-08-05 16:11 | XMS REPORT | Continuity of Care Document ---
:1940 Author Organization [facility] t Address [address] [place] [address] Care Team Providers Name Role Phone Mahsa Cedillo MD Primary Care Physician JEAN-PIERRE Attending Clinician Unavailable LISANDRO Attending Clinician Unavailable MD VINNY MCMAHON Attending Clinician Unavailable Abel Tim Attending Clinician JIM Attending Clinician Unavailable Abdiaziz JAIMES Attending Clinician Unavailable Sivan Parikh RN Attending Clinician Unavailable MD RAKESH MOREJON Attending Clinician Unavailable Fabio MICHEL Attending Clinician Unavailable Arlene Park RN Attending Clinician Unavailable Jaqui JAIMES Attending Clinician Unavailable Josseline CASTANEDA Attending Clinician Unavailable An INMAN, Madyson Attending Clinician Eleuterio Chaney MD Attending Clinician MD ELEUTERIO CHANEY Attending Clinician Unavailable Chantal INMAN, TDanielle Attending Clinician Sivan Braga MD Attending Clinician Alberto Arambula MD Attending Clinician Kacie Turpin MD Attending Clinician ALPESH Attending Clinician Unavailable HU Admitting Clinician Unavailable MD HU HDanielle Admitting Clinician Unavailable MD RAKESH MOREJON Admitting Clinician Unavailable SUSANNE Admitting Clinician Unavailable MD ELEUTERIO CHANEY Admitting Clinician Unavailable ALPESH Admitting Clinician Unavailable Payers Payer Name Policy Type Policy Number Effective Date Expiration Date S jaquelin Problems Condition Condition Condition Status Onset Resolution [...] Added automatic ally from request for surgery [id number] Unstable Unstable Disease Active 2020-02 Overview: Me thodi angina angina 2-[address] pectoris pectoris 00:00: g of this Hos jimena 00 note l might be different from the original. Added automatic ally from request for surgery [id number] Ischemic Ischemic Disease Active 2020-02 Overview: Me yessenia cardiomyop cardiomyop 2-[address] athy athy 00:00: g of this Hospita 00 note l might be different from the original. 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, type with renal II or manifestat unspecifie ions, type d type, II or uncontroll unspecifie ed d type, uncontroll ed Active Problem 5 [facility] Diabetes Problem Active 2015-01-30 Mem oria mellitus 03:02:19 l without Diabetes Gem nn mention of mellitus complicati without on, type mention of II or complicati unspecifie on, type d type, II or not stated unspecifie as d type, uncontroll not stated ed as uncontroll ed Active Problem 5 [facility] DM II [facility] Problem Active 2015-01-30 Me moria 03:02:19 l DM II [place] [facility] Active Problem 01/30/2015 [facility] TRANSIENT Problem Active 2015-01-30 Me moria ISCHEMIC 03:02:19 l ATTACK(TIA Torin n ) TRANSIENT ISCHEMIC ATTACK(TIA ) Active Problem 01/30/2015 [facility] HYPERTENSI Problem Active 2015-01-30 M emoria ON 03:02:19 l [place] HYPERTENSI ON Active Problem 5 [facility] Care HYPERLIPID Problem Active 2015-01-30 M emoria EMIA 03:02:19 l Preet HYPERLIPID EMIA Active Problem 01/30/2015 [facility] Mixed Problem Active 2015-01-30 Memor ia hyperlipid 03:02:19 l emia Mixed [place] hyperlipid emia Active Problem 01/30/2015 [facility] Diabetes Problem Active 2015-01-30 Mem oria mellitus 03:02:19 l without Diabetes Gem nn mention of mellitus complicati without on, type I mention of [juvenile complicati type], not on, type I stated as [juvenile uncontroll type], not ed stated as uncontroll ed Active Problem 5 [facility] Body Mass Diagnosis Active 2014-06-12 Memoria Index 02:03:24 l 34.0-34.9, Body Torin n adult Mass Index 34.0-34.9, adult Active Diagnosis 06/12/2014 [facility] Dysuria Diagnosis Active 2014-06-12 Me moria 02:02:48 l Dysuria [place] Active Diagnosis 06/12/2014 [facility] pre-operat Diagnosis Active 2014-06-12 Memoria david 02:00:19 l examinatio Torin n n pre-operat david examinatio n Active Diagnosis 06/12/2014 [facility] Unspecifie Diagnosis Active 2014-06-12 Memoria d cataract 02:00:19 l [place] Unspecifie d cataract Active Diagnosis 06/12/2014 [facility] 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 Family History Family Member Diagnosis Comments Start Date Stop Date Source Natural father Heart disease [facility] Natural mother Cancer [facility] Social History Social Habit Start Date Stop Date Quantity Comments Source History of Smoker [facility] tobacco use Hospital Exposure to Not sure [facility] SARS-CoV-2 Hospital (event) Alcohol intake 2021-03-24 2021-03-24 Current [facility] 00:00:00 00:00:00 non-drinker of Hospital alcohol (finding) Tobacco use and 2021-02-19 2021-02-19 Smokeless tobacco [facility] exposure 00:00:00 00:00:00 [facility]user [facility] 2015-01-20 2015-01-20 [facility] 00:00:00 00:00:00 Sex Assigned At [birth year] F [facility] 00:00:00 00:00:00 Hospital Smoking Status Start Date Stop Date Source Ex-smoker 2021-02-19 00:00:00 2021-02-19 00:00:00 [facility] Medications Ordered Filled Start Stop Current Ordering Indication Dosage Frequency Signature Comments Components Source Medication Medication Date Date Medication? Clinician (SIG) Name Name ciprofloxac 2021- No 500mg Q.5D Take 1 Me thodi in (Cipro) 03-[address] 500 MG 00:00: 05:59 (500 [...] l (1,000 unit) capsule isosorbide Yes 20mg [id number] Take 20 mg [facility] dinitrate 1-25 [id number] mouth [address] (ISORDIL) 15:58: 3D (three) Hospi ta 20 MG 10 times a l tablet day. hydrALAZINE Yes 25mg Q.[id number] Take 25 mg [facility] (APRESOLINE 1-25 [id number] mouth 3 st ) 25 MG 15:58: 3D (three) Hospita tablet 10 times a l day. calcium Yes 1334mg Q.[id number] Take 1,334 [facility] acetate,silvano 1-25 [id number] mg by s t sphat bind, 15:58: 3D mouth 3 Hos jimena (PHOSLO) 10 (three) l 667 mg times a capsule day with meals. carvediloL Yes 6.25mg Q.5D Take 6.25 [facility] (COREG) 1-[address] 6.25 MG 15:58: mouth 2 Hospita tablet 10 (two) l times a day with meals. ciprofloxac 2020-02- No 500mg Q.5D Take 1 Me thodi in (Cipro) 04-[address] 500 MG 00:00: 05:59 (500 mg Hospita tablet 00 :00 total) by l mouth 2 (two) times a day for 7 days. isosorbide 2020- No 20mg [id number] Take 20 mg [facility] dinitrate 08-07-10 [id number] [address] mouth [address] (ISORDIL) 16:31: 00:00 3D (three) Hosp [facility] 20 MG 00 :00 times a l tablet day. carvediloL 2020- No 6.25mg Q.5D Take 6.25 [facility] (COREG) 6-10 06-[address] 6.25 MG 16:31: 00:00 mouth 2 Hospit a tablet 00 :00 (two) l times a day with meals. hydrALAZINE 2020- No 37.5mg [id number] Take 37.5 [facility] (APRESOLINE 6- 06-[id number] mg by st ) 25 MG 16:31: 00:00 3D mouth 3 Hospit a tablet 00 :00 (three) l times a day. pantoprazol 2020- No 40mg Q24H Take 40 mg Methodi e 08-06-[address] (PROTONIX) 14:19: 00:00 daily [...] SoloStar 2-03 Melendez UNITS l 03:02: SUBCUTANEO [place] 19 USLY ONCE DAILY Aspirin Yes Pallavolu 1 tablet M emoria 4-15 [place] l 02:03: 24 Plavix Yes Pallavolu 1 tablet Me moria 4-15 [place] Once a day l 02:03: Orally 90 Preet 24 days Novolin Yes Pallavolu 20 UNITS M emoria 70/30 4-15 [place] l 02:03: 24 Meclizine Yes Pallavolu 1 tablet Memoria HCl 4-15 [place] l 02:03: 24 Pantoprazol Yes Pallavolu 1 tablet Memoria e Sodium 4-15 [place] l 02:03: 24 Fenofibrate Yes Pallavolu TAKE ONE Memoria 4-15 [place] TABLET BY l 02:03: MOUTH ONCE Preet 24 DAILY Lisinopril Yes Pallavolu TAKE ONE Memoria 4-15 [place] TABLET BY l 02:03: MOUTH ONCE [place] 24 DAILY Carvedilol Yes Pallavolu TAKE ONE Memoria 4-15 [place] TABLET BY l 02:03: MOUTH [place] 24 TWICE DAILY Simvastatin Yes Pallavolu 1 tablet Memoria 4-15 [place] l 02:03: [place] 24 Simvastatin Yes Pallavolu 1 tablet Memoria 4-15 [place] l 02:02: Preet 48 Cipro Yes Pallavolu 1 tablet Mem oria 3-20 [place] l 00:00: Preet 00 Lantus 0 Yes Pallavolu 40 UNITS Me moria SoloStar 3-13 [place] l 00:00: 00 Vital Signs Vital Name Observation Time Observation Value Comments Source Body height 2021-03-25 16:20:00 165.1 cm [facility] Body weight 2021-03-25 16:20:00 89.086 kg [facility] BMI 2021-03-25 16:20:00 32.68 kg/m2 [facility] Systolic blood 2021-03-25 15:49:00 128 mm[Hg] [facility] pressure Diastolic blood 2021-03-25 15:49:00 60 mm[Hg] [facility] pressure Heart rate 2021-03-25 15:49:00 73 /min [facility] Body temperature 2021-03-25 15:49:00 35.89 [facility]fer [facility] Respiratory rate 2021-03-25 15:49:00 20 /min [facility] Oxygen saturation in 2021-03-25 15:49:00 100 /min [facility] Arterial blood by Pulse oximetry Weight 2014-06-10 15:00:00 [facility] Temperature Oral (F) 2014-06-10 15:00:00 98.4 F [facility] Heart Rate 2014-06-10 15:00:00 [facility] Diastolic (mm Hg) 2014-06-10 15:00:00 Mem orial [place] Systolic (mm Hg) 2014-06-10 15:00:00 Alireza rial Preet Weight 2014-05-17 15:15:00 [facility] Temperature Oral (F) 2014-05-17 15:15:00 98.6 F [facility] Diastolic (mm Hg) 2014-05-17 15:15:00 Mem orial [place] Systolic (mm Hg) 2014-05-17 15:15:00 Alireza rial [place] Weight 2014-03-25 15:45:00 [facility] Temperature Oral (F) 2014-03-25 15:45:00 97.9 F [facility] [place] Heart Rate 2014-03-25 15:45:00 [facility] [place] Diastolic (mm Hg) 2014-03-25 15:45:00 Mem orial [place] Systolic (mm Hg) 2014-03-25 15:45:00 Alireza rial [place] Procedures Procedure Date / Time Performing Clinician Source Performed CABG, WITH ENDOSCOPIC VEIN 2021-04-03 13:30:00 Dwain Morejon in [facility] HARVESTING URINE CULTURE 2021-03-25 17:10:00 [facility] XR CHEST 2 VW 2021-03-25 16:48:19 [facility] TYPE AND SCREEN 2021-03-25 16:00:00 [facility] HC COMPLETE BLD COUNT 2021-03-25 16:00:00 [facility] W/AUTO DIFF BASIC METABOLIC PANEL 2021-03-25 16:00:00 [facility] PROTHROMBIN TIME WITH INR 2021-03-25 16:00:00 [facility] PARTIAL THROMBOPLASTIN 2021-03-25 16:00:00 [facility] TIME (PTT) URINALYSIS SCREEN AND 2021-03-25 16:00:00 [facility] MICROSCOPY, WITH REFLEX TO CULTURE D-DIMER 2021-03-25 16:00:00 Dwain Morejon [facility] ESTIMATED GFR 2021-03-25 16:00:00 [facility] COVID-19 QUALITATIVE 2021-03-03 15:16:00 Jayant Arambula [facility] RT-PCR COVID-19 QUALITATIVE 2021-02-19 19:44:00 Dwain Morejon [facility] RT-PCR XR CHEST 2 VW 2021-02-19 19:34:25 Dwain Morejon [facility] URINE CULTURE 2021-02-19 19:24:00 Dwain Morejon [facility] ECG PRE/POST OP 2021-02-19 18:49:51 Dwain Morejon [facility] URINALYSIS SCREEN AND 2021-02-19 18:49:00 Dwain Morejon [facility] MICROSCOPY, WITH REFLEX TO CULTURE MRSA PCR 2021-02-19 18:48:00 Dwain Morejon [facility] LIPID PANEL 2021-02-19 18:43:00 Dwain Morejon Rakesh [facility] HEMOGLOBIN A1C 2021-02-19 18:43:00 Dwain Morejon Rakesh [facility] PARTIAL THROMBOPLASTIN 2021-02-19 18:43:00 Dwain Morejon [facility] TIME (PTT) PROTHROMBIN TIME WITH INR 2021-02-19 18:43:00 [facility] COMPLETE BLD [facility] 2021-02-19 18:43:00 Dwain Morejon [facility] W/AUTO DIFF TYPE AND SCREEN 2021-02-19 18:43:00 Dwain Morejon [facility] COMPREHENSIVE METABOLIC 2021-02-19 18:43:00 Dwain Morejon Rakesh [facility] PANEL ESTIMATED GFR 2021-02-19 18:43:00 Dwain Morejon [facility] MAGNESIUM LEVEL 2021-02-19 18:43:00 Dwain Morejon [facility] ARTERIAL BLOOD GAS 2021-02-19 18:24:00 Dwain Morejon [facility] US CAROTID DUPLEX 2021-02-02 19:14:00 Dwain Morejon [facility] BILATERAL CV CATH EXTERNAL STUDY 2021-01-08 20:39:13 Dwain Morejon [facility] POC GLUCOSE 2020-08-07 20:42:00 Bhaskar Chaney [facility] sarah Boyceda HEPATITIS B SURFACE AB, 2020-08-07 17:32:00 [place], [facility] QUANTITATIVE HEPATITIS B SURFACE 2020-08-07 17:32:00 [place] [facility] ANTIGEN POC GLUCOSE 2020-08-07 16:08:00 [facility] POC GLUCOSE 2020-08-07 12:56:00 [facility] HC COMPLETE BLD COUNT 2020-08-07 09:03:00 [facility]FF BASIC METABOLIC PANEL 2020-08-07 09:03:00 [facility]FR 2020-08-07 09:03:00 [facility] LACTIC ACID LEVEL, SEPSIS 2020-08-07 03:00:00 [facility] - NOW AND REPEAT 2X EVERY 3 HOURS POC GLUCOSE 2020-08-07 01:36:00 [facility] LACTIC ACID LEVEL, SEPSIS 2020-08-07 00:03:00 [facility] NOW AND REPEAT 2X EVERY 3 HOURS POC GLUCOSE 2020-08-06 23:14:00 Bhaskar Chaney spital [place] COVID-19 QUALITATIVE 2020-08-06 22:43:00 [facility] RT-PCR ECG ED PRELIMINARY 2020-08-06 18:13:40 [facility] INTERPRETATION ECG 12-LEAD 2020-08-06 18:01:17 [facility] ospital XR CHEST 1 VW PORTABLE 2020-08-06 18:00:31 [facility] BLOOD CULTURE, AEROBIC & 2020-08-06 17:41:00 [facility] ANAEROBIC BLOOD CULTURE, AEROBIC & 2020-08-06 17:20:00 [facility] ANA[facility] LACTIC ACID LEVEL, SEPSIS 2020-08-06 17:17:00 [facility] - NOW AND REPEAT 2X EVERY 3 HOURS COMPREHENSIVE METABOLIC 2020-08-06 17:17:00 NolanPhankatarina Coughlin [facility] PANEL HC COMPLETE BLD COUNT 2020-08-06 17:17:00 NolanNorman Madyson [facility] W/AUTO DIFF ESTIMATED GFR 2020-08-06 17:17:00 [facility] HEAD WO CONTRAST 2020-08-06 16:38:40 [facility] 2020-07-19 16:46:00 Moosavi, Bhaskar [facility] POC GLUCOSE 2020-07-19 12:27:00 Moosavi, Bhaskar [facility] BASIC METABOLIC PANEL 2020-07-19 11:10:00 [place] [facility] ESTIMATED GFR 2020-07-19 11:10:[address] [place] [facility] POC GLUCOSE 2020-07-19 01:53:00 Moosavi, Bhaskar [facility] POC GLUCOSE 2020-07-18 22:56:00 Moosavi, Bhaskar [facility] POC GLUCOSE 2020-07-18 22:07:00 Moosavi, Bhaskar [facility] [place] POC GLUCOSE 2020-07-18 17:40:00 Moosavi, Bhaskar [facility] XR CHEST 1 VW PORTABLE 2020-07-18 16:37:09 [facility]SE 2020-07-18 12:54:00 Moosavi, Bhaskar [facility] [place] TROPONIN 2020-07-18 04:05:00 AngelaStacy Lemus POC GLUCOSE 2020-07-18 01:55:00 Moosavi, Bhaskar [facility] [place] TROPONIN 2020-07-17 23:08:00 Stacy Miller Lemus POC GLUCOSE 2020-07-17 21:33:00 Moosavi, Bhaskar [facility] [place] TROPONIN 2020-07-17 20:35:00 Stacy Miller ECG 12-LEAD 2020-07-17 18:59:06 Moosavi, Bhaskar [facility] [place] POC GLUCOSE 2020-07-17 16:49:00 Moosavi, Bhaskar [facility] [place] POC GLUCOSE 2020-07-17 12:39:00 Moosavi, Bhaskar [facility] [place] BASIC METABOLIC PANEL 2020-07-17 09:54:00 [facility] HC COMPLETE BLD COUNT 2020-07-17 09:54:00 [facility] W/AUTO DIFF ESTIMATED GFR 2020-07-17 09:54:00 [facility] POC GLUCOSE 2020-07-17 01:12:00 Moosavi, Bhaskar [facility] POC GLUCOSE 2020-07-16 22:31:00 Moosavi, Bhaskar [facility] POC GLUCOSE 2020-07-16 18:43:00 Moosavi, Bhaskar [facility] NE AN ELECTIVE 2020-07-16 17:47:21 Micheline Pruett Sivan [facility] ENDOTRACHEAL AIRWAY INSERTION, CATHETER, 2020-07-16 17:15:00 [facility] DIALYSIS, PERITONEAL, LAPAROSCOPIC LYSIS, ADHESIONS, 2020-07-16 17:15:00 [facility] LAPAROSCOPIC POC PANEL 2020-07-16 17:01:00 Moosavi, Bhaskar [facility] POC GLUCOSE 2020-07-16 13:11:00 Moosavi, Bhaskar [facility] POC GLUCOSE 2020-07-16 01:59:00 Moosavi, Bhaskar [facility] POC GLUCOSE 2020-07-15 22:42:00 Moosavi, Bhaskar [facility] POC GLUCOSE 2020-07-15 16:29:00 Moosavi, Bhaskar [facility] POC GLUCOSE 2020-07-15 13:15:00 Moosavi, Bhaskar [facility] [place] BASIC METABOLIC PANEL 2020-07-15 08:40:00 [place] [facility] ESTIMATED GFR 2020-07-15 08:40:00 [facility] 2020-07-15 01:23:00 [facility] POC GLUCOSE 2020-07-14 20:46:00 Motonja, Bhaskar Torres spital [place] POC GLUCOSE 2020-07-14 18:29:00 MoosaBhaskar elizabethHoly [facility] IR TUNNELED DIALYSIS 2020-07-14 16:40:34 [place] [facility] CATHETER PLACEMENT US GUIDED VASCULAR ACCESS 2020-07-14 16:31:38 [place] [facility] TTE COMPLETE, WO CONTRAST, 2020-07-14 15:20:13 [facility] W DOPPLER ([id number]) POC GLUCOSE 2020-07-14 13:18:00 MoBhaskar [facility] PROTHROMBIN TIME WITH INR 2020-07-14 13:04:00 [place] [facility] ECG 12-LEAD 2020-07-14 10:47:20 [facility] 12-LEAD 2020-07-14 10:46:38 [facility] ospital HEMOGLOBIN & HEMATOCRIT 2020-07-14 10:25:00 Batsheva Vergara [facility] BASIC METABOLIC PANEL 2020-07-14 10:25:00 [place] [facility] ESTIMATED GFR 2020-07-14 10:25:[address] [place] [facility] POC GLUCOSE 2020-07-14 02:05:00 [facility] POC GLUCOSE 2020-07-13 21:33:00 Motonja [facility]ital [place] HEPATITIS C ANTIBODY 2020-07-13 20:56:00 [place] [facility] HC COMPLETE BLD COUNT 2020-07-13 17:53:00 [place] [facility] W/AUTO DIFF HEPATITIS B SURFACE 2020-07-13 17:53:00 [place], [facility] ANTIGEN HEPATITIS B SURFACE 2020-07-13 17:53:00 [place], [facility] ANTIBODY HEPATITIS B CORE ANTIBODY 2020-07-13 17:53:00 [place], [facility] TOTAL SMEAR REVIEW 2020-07-13 17:53:00 [place], [facility] POC GLUCOSE 2020-07-13 16:34:00 Moosavi, Bhaskar [facility] POC GLUCOSE 2020-07-13 13:42:00 Moosavi, [facility] [place] BASIC METABOLIC PANEL 2020-07-13 08:50:00 [place], [facility] HC COMPLETE BLD COUNT 2020-07-13 08:50:00 [place], [facility] W/AUTO DIFF ESTIMATED GFR 2020-07-13 08:50:00 [place], [facility] POC GLUCOSE 2020-07-13 02:26:00 Moosavi, Bhaskar [facility] [place] POC GLUCOSE 2020-07-13 01:09:00 Moosavi, Bhaskar [facility] POC GLUCOSE 2020-07-12 22:11:00 Moosavi, Bhaskar [facility] PARATHYROID HORMONE 2020-07-12 17:31:00 [place], [facility] URIC ACID LEVEL 2020-07-12 17:31:00 [place], [facility] POC GLUCOSE 2020-07-12 16:47:00 Moosavi, Bhaskar [facility] POC GLUCOSE 2020-07-12 12:35:00 Moosavi, Bhaskar [facility] HC COMPLETE BLD COUNT 2020-07-12 09:33:00 Manuela Braga [facility] W/AUTO DIFF Sivan COMPREHENSIVE METABOLIC 2020-07-12 09:33:00 [facility] PANEL Sivan THYROID STIMULATING 2020-07-12 09:33:00 Kee, Jeff [facility] HORMONE ESTIMATED GFR 2020-07-12 09:33:00 [facility] Sivan TROPONIN 2020-07-12 02:45:00 Lakhwinder Vásquez spital US RENAL 2020-07-12 01:56:43 [facility] POC GLUCOSE 2020-07-12 01:15:00 Motonja [facility] Shadaab COVID-19 QUALITATIVE 2020-07-12 00:24:00 Manuela Braga [facility] RT-PCR Sivan HC COMPLETE BLD COUNT 2020-07-12 00:24:00 [facility] W/AUTO DIFF FERRITIN LEVEL 2020-07-12 00:24:00 [facility] URIC ACID LEVEL 2020-07-12 00:24:00 [facility] TOTAL IRON BINDING 2020-07-12 00:24:00 [facility] CAPACITY PARATHYROID HORMONE 2020-07-12 00:24:00 [facility] PROTEIN, URINE, RANDOM 2020-07-12 00:24:00 [facility] CREATININE LEVEL, URINE, 2020-07-12 00:24:00 [facility] RANDOM VITAMIN D 25 HYDROXY LEVEL 2020-07-12 00:24:00 [facility] URINE PROTEIN 2020-07-12 00:24:00 [facility] ELECTROPHORESIS, RANDOM SERUM ELECTROPHORESIS 2020-07-12 00:24:00 [facility] KAPPA LAMBDA FREE LIGHT 2020-07-12 00:24:00 [facility] CHAIN WITH RATIO URINE PROTEIN/CREATININE 2020-07-12 00:23:00 [facility] RATIO, RANDOM TROPONIN 2020-07-11 23:42:00 Lakhwinder Vásquez XR CHEST 1 VW PORTABLE 2020-07-11 22:36:14 [facility] 12-LEAD 2020-07-11 22:15:53 Moosaclara, [facility] ECG 12-LEAD 2020-07-11 22:14:36 Moosavi, Bhaskar [facility] ECG 12-LEAD 2020-07-11 22:13:55 Moosavi, Bhaskar [facility] ECG ED PRELIMINARY 2020-07-11 21:39:29 Maria Luz [facility] INTERPRETATION Sivan HC COMPLETE BLD COUNT 2020-07-11 21:36:00 [facility] W/AUTO DIFF Sivan COMPREHENSIVE METABOLIC 2020-07-11 21:36:00 [facility] PANEL Sivan B NATRIURETIC PEPTIDE 2020-07-11 21:36:00 [facility] Sivan ESTIMATED GFR 2020-07-11 21:36:00 [facility] Sivan TROPONIN 2020-07-11 20:45:00 Lakhwinder Vásquez Ho spital ECG 12-LEAD 2020-07-11 20:34:56 Lakhwinder Vásquezist Ho spital Plan of Care Planned Activity Planned Date Details Comments Source Future Scheduled 2021-03-31 65+ PNEUMOCOCCAL [facility] Test 07:32:58 VACCINE (1 of 4 - PCV13) [code = 65+ PNEUMOCOCCAL VACCINE (1 of 4 - PCV13)] Future Scheduled 2021-03-31 SHINGLES VACCINES (#1) [facility] Test 07:32:58 [code = SHINGLES VACCINES (#1)] Future Scheduled 2021-03-31 INFLUENZA VACCINE Method [facility] Test 07:32:58 [code = INFLUENZA VACCINE] Future Scheduled 2021-03-31 COVID-19 VACCINE (3 - Me [facility] Test 07:32:58 Booster for Pfizer series) [code = COVID-19 VACCINE (3 - Booster for Pfizer series)] Encounters Start End Encounter Admission Attending Care Care Encounter Source Date/Time Date/Time Type Type Clinicians Facility Department ID 2021-06-02 2021-06-02 Outpatient JEAN-PIERRE [facility] [id number] [address] [place] [address] 00:00:00 00:00:00 DWAIN [address] 2021-04-06 2021-04-16 Inpatient [facility] [id number] [place] 00:00:00 00:00:00 DANYELL [address] 2021-03-30 2021-03-30 Orders Razo, 1.2.840.1 [id number] Methodi 00:00:00 00:00:00 Only Neelima Bellharriet 60388.1.[address] 3.430.2.7 Hospit a .3.653393 l .8 2021-03-27 2021-03-27 Orders Razo, 1.2.840.1 [id number] 7419 Methodi 00:00:00 00:00:00 Only Neelima Bellharriet [address]0501.1.[address] 3.430.2.7 Hospit a .3.223897 l .8 2021-03-25 2021-03-25 Pre-Admiss Jean-Pierre, 1.2.840.1 [id number] Methodi 09:25:00 10:25:00 ion Dwain Rakesh 40694.1.[address] Testing 3.430.2.7 Hospit a .3.124287 l .8 2021-03-25 2021-03-25 [facility].2.[facility]1 [id number] [place] 00:00:00 00:00:00 BRITTANEY Castillo 55210[address]1.[address] .3.597564 .8 2021-03-25 2021-03-25 Orders Freed, 1.2.840.1 [id number] 9836 Methodi 00:00:00 00:00:00 Only Norma 69699.1.[address] 3.430.2.7 Hospit a .3.723354 l .8 2021-03-24 2021-03-24 Orders Freed, 1.2.840.1 [id number] 2923 Methodi 00:00:00 00:00:00 Only Norma 61027.1.[address] 3.430.2.7 Hospit a .3.311392 l .8 2021-03-24 2021-03-24 Orders Jl, 1.2.840.1 [id number] 9558 Methodi 00:00:00 00:00:00 Only Carmelina Finnegan 92884.1.1 [address] t 3.430.2.7 Hospit a .3.674292 l .8 2021-03-24 2021-03-24 Travel 1.2.840.1 1.2.162.099 1167 064348 Methodi 00:00:00 00:00:[address] 3.430.2.7 0.2.7.3.698 Ho spita .3.259230 084.8 l .8 2021-03-03 2021-03-03 Outpatient JEAN-PIERRE, [facility] [id number] [place] 00:00:00 00:00:00 DWAIN [facility] 2021-03-03 2021-03-03 Transcribe Jean-Pierre, 1.2.840.1 [id number] [id number] Methodi 00:00:00 00:00:00 Orders Dwain Montoya 98261.1.[address] 3.430.2.7 Hospit a .3.834091 l .8 2021-02-26 2021-02-26 Prep for Mccarthy, 1.2.840.1 [id number] 95649 Methodi 00:00:00 00:00:00 Surgery Shelia 08876.1.[address] 3.430.2.7 Hospit a .3.215192 l .8 2021-02-19 2021-02-25 Pre-Admiss Jean-Pierre, 1.2.840.1 [id number] 806 [id number] Methodi 11:13:18 10:03:18 ion Dwain Montoya 11242.1.[address] Testing 3.430.2.7 Hospit a .3.316914 l .8 2021-02-23 2021-02-23 Transcribe Jean-Pierre, 1.2.840.1 [id number] 597 [id number] Methodi 00:00:00 00:00:00 Orders Dwain Gregoriowin 27027.1.[address] 3.430.2.7 Hospit a .3.026323 l .8 2021-02-19 2021-02-19 [facility] JEAN-PIERRE, 1.2.840.1 [id number] [place] 00:00:00 00:00:00 Encounter DWAIN 44344.1.1 [address] .3.050128 .8 2021-02-19 2021-02-19 [facility] JEAN-PIERRE, 1.2.840.1 [id number] [place] 00:00:00 00:00:00 Encounter DWAIN 05590.1.1 [address] .3.640457 .8 2021-02-19 2021-02-19 Outpatient JEAN-PIERRECOUNT INCLUDES THE [facility] [id number] [place] 00:00:00 00:00:00 DWAIN [address] 2021-02-19 2021-02-19 [place] 1.2.840.1 [id number] 7369 Methodi 00:00:00 00:00:00 Only Ana Maria Jacobs 57771.1.[address] 3.430.2.7 Hospit a .3.308961 l .8 2021-02-19 2021-02-19 Travel 1.2.840.1 1.2.200.494 3963 [id number] Methodi 00:00:00 00:00:[address] 3.430.2.7 0.2.7.3.698 Ho spita .3.684491 084.8 l .8 2021-02-17 2021-02-17 Travel 1.2.840.1 1.2.966.160 2009 690024 Methodi 00:00:00 00:00:[address] 3.430.2.7 0.2.7.3.698 Ho spita .3.617972 084.8 l .8 2021-02-16 2021-02-16 Orders Jean-Pierre 1.2.840.1 [id number] 8335 Methodi 00:00:00 00:00:00 Only Dwain Montoya 76380.1.[address] 3.430.2.7 Hospit a .3.915033 l .8 2021-02-03 2021-02-03 Prep for Fabio, 1.2.840.1 [id number] 62419 Methodi 00:00:00 00:00:00 Surgery Shelia 81734.1.[address] 3.430.2.7 Hospit a .3.976965 l .8 2021-02-02 2021-02-02 Outpatient JEAN-PIERRECOUNT INCLUDES THE [facility] [id number] [place] 00:00:00 00:00:00 DWAIN Dick [facility] 2021-02-02 2021-02-02 Travel 1.2.840.1 1.2.391.669 8812 [id number] Methodi 00:00:00 00:00:[address] 3.430.2.7 0.2.7.3.698 Ho spita .3.848692 084.8 l .8 2021-01-08 2021-01-08 Office Jean-Pierre, 1.2.840.1 [id number] 5762 Methodi 14:15:05 16:02:28 Visit Dwain Montoya 58500.1.[address] 3.430.2.7 Hospit a .3.689807 l .8 2021-01-08 2021-01-08 Ancillary Jean-Pierre, 1.2.840.1 [id number] [id number] Methodi 14:39:12 14:54:12 Procedure Dwain oMntoya 76661.1.[address] 3.430.2.7 Hospit a .3.189078 l .8 2021-01-08 2021-01-08 Nurse Only Jaqui, 1.2.840.1 [id number] Methodi 00:00:00 00:00:[address] 3.430.2.7 Hospit a .3.993087 l .8 2021-01-08 2021-01-08 Orders Jean-Pierre, 1.2.840.1 [id number] 0696 Methodi 00:00:00 00:00:00 Only Dwain Montoya 93219.1.[address] 3.430.2.7 Hospit a .3.390913 l .8 2020-12-18 2020-12-18 Outpatient JORGE, [facility] CAR 7502 [facility] 06:29:00 17:01:00 [facility] 2020-08-06 2020-08-07 Emergency Nolan, Norman Coughlin 1.2.840.1 23285 [id number] [id number] Methodi 11:55:00 16:30:00 [address].1.[address] 3.430.2.7 Hospit a .3.626639 l .8 2020-08-06 2020-08-06 Travel 1.2.840.1 1.2.581.343 6510 478239 Methodi 00:00:00 00:00:[address] 3.430.2.7 0.2.7.3.698 Ho spita .3.947929 084.8 l .8 2020-07-25 2020-07-25 Office Cornejo, 1.2.840.1 [id number] 5976 Methodi 12:57:17 13:55:12 Visit Demarcus Alcazar 52076.1.[address] 3.430.2.7 Hospit a .3.639840 l .8 2020-07-25 2020-07-25 Travel 1.2.840.1 1.2.748.741 5745 890819 Methodi 00:00:00 00:00:[address] 3.430.2.7 0.2.7.3.698 Ho spita .3.074220 084.8 l .8 2020-07-11 2020-07-19 [facility] Manuela Braga 1.2.840.1 [id number] Methodi 16:15:00 14:37:00 Encounter Bhaskar Chaney 52033.1.[address] 3.430.2.7 Hospit a .3.043228 l .8 2020-07-16 2020-07-16 Surgery Chantal, 1.2.840.1 [id number] 3206 Methodi 12:30:00 14:00:00 Demarcus Alc[address] 3.430.2.7 Hospit a .3.517583 l .8 2020-07-16 2020-07-16 Anesthesia Jayant Arambula K 1.2.840.1 356318 012 [id number] Methodi 12:19:00 13:20:00 Event Irma Turpin 49223.1.[address] 3.430.2.7 Hospit a .3.436232 l .8 2020-07-11 2020-07-11 Travel 1.2.840.1 1.2.558.190 9722 120323 Methodi 00:00:00 00:00:[address] 3.430.2.7 0.2.7.3.698 Ho spita .3.206051 084.8 l .8 2019-11-20 2019-11-21 [facility] 7501 [facility] 10:38:00 15:47:00 [facility] 2019-02-05 2019-02-05 Inpatient U [facility] MED 7500 Mem[facility] 10:30:00 07:48:00 kwame puente [facility] 2015-01-29 2015-01-29 Unknown nullFlavo Hazard [id number] -8 Memoria 20:15:00 20:15:00 r Primary 4j4-5929-q l Care be6-095b1b [facility] 0b03a3 2014-12-19 2014-12-19 Unknown nullFlavo Hazard [id number] -f Memoria 19:41:00 19:41:00 r Primary 639-4a6a-8 l Care 8u6-w985qj [facility] a3d76e 2014-11-21 2014-11-21 Unknown nullFlavo Hazard [id number] -7 Memoria 21:30:00 21:30:00 r Primary 04a-488c-9 l Care 5bf-8b4fbe [facility] 256fc5 2014-06-10 2014-06-10 Unknown nullFlavo Hazard ud07uwuv -1 [facility]oria 16:00:00 16:00:00 r Primary 91d-488f-8 l Care [id number]-m04783 [facility] 868a81 2014-06-10 2014-06-10 Unknown nullFlavo Hazard 4k4qfeam -7 Memoria 15:00:00 15:00:00 r Primary 85e-47a6-a l Care 19a-5e84a0 [facility] [id number] 2014-06-10 2014-06-10 Unknown nullFlavo Hazard 262oe262 -a Memoria 15:00:00 15:00:00 r Primary 355-4d22-a l Care 86a-3266dd [facility] 4803dc 2014-06-10 2014-06-10 Unknown nullFlavo Hazard 6785930g -4 Memoria 15:00:00 15:00:00 r Primary 683-4b16-9 l Care [id number]-k2p841 [facility] [id number] 2014-05-17 2014-05-17 Unknown nullFlavo Hazard 54x0lw94 -c Memoria 16:15:00 16:15:00 r Primary 2k7-7n42-8 l Care fdf-k5896v [facility] [id number] 2014-05-17 2014-05-17 Unknown nullFlavo Hazard 326f4u7w -9 Memoria 15:15:00 15:15:00 r Primary o40-616n-g l Care p66-7z6ka1 [facility] 68c12d 2014-05-17 2014-05-17 Unknown nullFlavo Hazard [id number] -5 Memoria 15:15:00 15:15:00 r Primary ce5-474d-a l Care 11e-b9f93d [facility] 263755 4182-03-20 2014-05-17 Unknown nullFlavo Hazard 9p07w556 -2 Memoria 15:15:00 15:15:00 r Primary cc8-4483-b l Care l44-1f5330 [facility] 509a47 2014-04-15 2014-04-15 Unknown nullFlavo Hazard [id number] -d [facility]oria 22:42:00 22:42:00 r Primary l2u-3t3h-u l Care 359-704a95 [facility] ov197z 2014-04-15 2014-04-15 Unknown nullFlavo Hazard wpc10r3e -7 Memoria 21:42:00 21:42:00 r Primary 827-48a3-b l Care 523-27n641 [facility] [id number] 2014-04-15 2014-04-15 Unknown nullFlavo Hazard 6252eaaf -4 Memoria 21:42:00 21:42:00 r Primary 0ac-4496-9 l Care 699-0e2aa9 [facility] 5dd5b2 2014-04-15 2014-04-15 Unknown nullFlavo Hazard [id number] -9 Memoria 21:42:00 21:42:00 r Primary 60e-47e5-8 l Care 43a-85c0ff [facility] 7f7bbc 2014-03-25 2014-03-25 Unknown nullFlavo Hazard 77e44je5 -e [facility]oria 16:45:00 16:45:00 r Primary 9i9-7v83-6 l Care 94e-7856b2 [facility] d6bb02 2014-03-25 2014-03-25 Unknown nullFlavo Hazard [id number] -b Memoria 15:45:00 15:45:00 r Primary 207-49fc-b l Care 5j2-m15v13 [facility] 227fe3 2014-03-25 2014-03-25 Unknown nullFlavo Hazard [id number] -9 Memoria 15:45:00 15:45:00 r Primary 765-443f-a l Care [id number]-b28e1a [facility] 201e32 2014-03-25 2014-03-25 Unknown nullFlavo Hazard 3c68h3ts -6 Memoria 15:45:00 15:45:00 r Primary r39-28n2-q l Care 7fb-909e1d [facility] [id number] Results Test Description Test Time Test Comments Results Result Comments Source SARS-CoV-2 (COVID-19) RNA [Presence] in Respiratory sp ecimen by 2021-04-16 00:53:01 CHANTEL with probe detection Test Item Value Reference Range Interpretation Comme nts SARS-CoV-2 (COVID-19) RNA [Presence] in Respiratory Detected No t-Detected specimen by CHANTEL with probe detection (test code = 04386-0) 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 (test code = 40995-9) Whether the patient has symptoms related to condition of interest (test code = 31839-3) Patient was hospitalized because of this condition (test code = 62227-8) Whether the patient was admitted to intensive care unit (ICU) for condition of interest (test code = 09747-7) Whether patient resides in a congregate care setting (test code = 04976-2) Type and udulpg2016-30-30 17:19:00 Test Item Value Reference Range Interpretation Comments ABO grouping (test code = 883-9) A Rh type (test code = 46503-6) NEG Antibody screen (gel) (test code = NEG 890-4) [facility] (COVID-19) RNA [Presence] in Respiratory specimen by CHANTEL with probe hedriugds1896-48-96 15:56:37 Test Item Value Reference Range Interpretation Comments SARS-CoV-2 (COVID-19) RNA [Presence] Detected Not-Detected in Respiratory specimen by CHANTEL with probe detection (test code = 07728-4) 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 (test code = 62380-4) Whether the patient has symptoms related to condition of interest (test code = 81268-6) Patient was hospitalized because of this condition (test code = 63495-2) Whether the patient was admitted to intensive care unit (ICU) for condition of interest (test code = 93900-9) Whether patient resides in a congregate care setting (test code = 96553-8) SARS-CoV-2 (COVID-19) RNA [Presence] in Respiratory specimen by CHANTEL with probe jynvtffgd5536-55-95 00:59:54 Test Item Value Reference Range Interpretation Comments SARS-CoV-2 (COVID-19) RNA Not detected Not-Detected [Presence] in Respiratory specimen by CHANTEL with probe detection (test code = 15719-9) 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 (test code = 34270-1) Whether the patient has symptoms related to condition of interest (test code = 11103-3) Patient was hospitalized because of this condition (test code = 13869-0) Whether the patient was admitted to intensive care unit (ICU) for condition of interest (test code = 03437-2) Whether patient resides in a congregate care setting (test code = 66734-1) ECG Pre/Post [id number] 00:53:16 Test Item Value Reference Range Interpretation Comments Ventricular rate (test code = 253) Atrial rate (test code = 255) NE interval (test code = 266) QRSD interval [...] 13:01,-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- [address]2021-06-10 22:40:10 Test Item Value Reference Range Interpretation [...] undetermined rhythm precludes rhythm comparison, needs review- [facility] cruhkdq9814-23-64 20:43:36 Test Item Value Reference Range Interpretation Comments POC glucose (test code 208 mg/dL 65-99 H [employer] Name: Melody = 72127-7) Shaun ID: [id number] able: HMW Notified enamel drier Interpretation Abnormal (test code = 80541-2) [facility] RNA [Presence] in Respiratory specimen by CHANTEL with probe odqnxyfjx4505-51-21 00:35:59 Test Item Value Reference Range Interpretation Comments SARS-CoV-2 (COVID-19) RNA Not detected Not-Detected [Presence] in Respiratory specimen by CHANTEL with probe detection (test code = 05808-4) 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 (test code = 76920-3) Whether the patient has symptoms related to condition of interest (test code = 92060-1) Patient was hospitalized because of this condition (test code = 28277-0) Whether the patient was admitted to intensive care unit (ICU) for condition of interest (test code = 83239-9) Whether patient resides in a congregate care setting (test code = 41189-3) ECG ED Preliminary Interpretation - Not an Ehnuh2975-01-75 18:13:40 Test Item Value Reference Range Interpretation Comments BETH (test code = BETH) Norman Nolan MD 08/06/2020 10:25 PMEG ED Preliminary Interpretation - Not an OrderPerformed by: Norman Nolan MDAuthorized by: Norman Nolan MD ECG reviewed by ED Physician in the absence of a retrieval specialist: yes Interpretation: Interpretation: abnormal Rate: ECG rate: 65 BPM ECG rate assessment: normal Rhythm: Rhythm: other rhythm Ectopy: Ectopy: none QRS: QRS axis: Normal QRS intervals: Normal (92 ms)Conduction: Conduction: normal ST segments: ST segments: AbnormalT waves: T waves: non-specific Other findings: Other findings: prolonged qTc interval Comments: QT/QTc: 534/555 msPR Interval: * ms Lab Interpretation Abnormal (test code = 98957-6) [facility], (w Contrast, Strain and 3D if needed)2020-07-15 01:37:44 Test Item Value Reference Range Interpretation Comments Ao Root Diameter 3.24 cm (test code = 2205705325) AoV Area, Vmax (test 1.67 cm2 code = 8924366701) AoV Area, VTI (test 1.76 cm2 code = 6794718036) AoV Mean PG (test mmHg code = 2771082244) AoV Peak PG (test mmHg code = 0640686184) AoV Vmax (test code 1.72 m/s = 7649056006) AoV VTI (test code = 0.35 m 9809494547) IVS,d (test code = 1.06 cm 4917948303) IVS/LVPW,2D (test code = 1988656749) Left Atrium 4.44 cm Dimension Anterior (test code = 6356065932) LA Area d A4C (test 20.62 cm2 code = 4173982093) LV,d (test code = 5.80 cm 1070715992) LV EF,2D (test code 38.89 % = 2061834432) LV,s (test code = 4.92 cm 5568830427) LVOT area (test code 3.49 cm2 = 5618643486) LVOT Diam,S (test 2.11 cm code = 4347869211) LVOT Vmax (test code 0.82 m/s = 4184252829) LVOT VTI (test code 0.18 m = 7552143730) LVPWD,d (test code = 1.02 cm 1081451870) PV Mean Grad (test mmHg code = 2556108813) PV Pk Grad (test mmHg code = 0155694107) PV VMAX (test code = 1.32 m/s 2284174989) PV VTI (test code = 0.26 m 1642643570) RVOT Vmax (test code 0.59 m/s = 8279338193) RVSP (TR) (test code mmHg = 9440150886) TR Vpeak (test code 2.95 mm/s = 4269610442) MV E A ratio (test code = 5033277863) TR pk grad (test mmHg code = 8580701025) PV Vmn (test code = 0605248903) MR Vmax (test code = 5.16 m/s 7190966727) E wave decelartion msec time (test code = 8340088136) MV Peak A Nick (test 1.10 m/s code = 9991437411) MV valve area p 1/2 5.06 cm2 method (test code = 1132675619) MV Peak E Nick (test 1.00 m/s code = 5973444334) MV stenosis pressure 43.50 ms 1/2 time (test code = 1448684026) LVOT stroke volume 0.63 cm3 (test code = 9116474636) AV LVOT peak mmHg gradient (test code = 4767106440) RVSP (test code = mmHg 0641033161) Ao Root Diameter 3.24 cm (test code = 9402356943) MV mean gradient mmHg (test code = 5456269040) LV SYS VOL (test 114.00 ml code = 3465276938) LV CURRY VOL (test 166.56 ml code = 0002147663) LV SV Teich 2D (test 52.56 ml code = 5963886025) LV Vol s Teich PSAX 114.00 ml (test code = 9158206605) LVOT CO (test code = 4.52 l/min 1476472707) LVOT HR for LVOT CO bpm (test code = 5522325487) MR peak grad (test mmHg code = 3176270978) MV Vmax (test code = 1.13 m 4363832137) MV VTI Tips (test 0.18 m code = 1945515274) RVOT pk grad (test mmHg code = 9594243190) AoV Vmn (test code = 3735347318) IVS s 2D (test code = 1181472195) LV FS Teich 2D (test code = 8425849510) MV AE ratio (test code = 6403988606) LV FS Cube 2D (test code = 5685618934) LVOT Vmn (test code = 0767213903) Aov area Vmn (test 1.83 cm2 code = 0839498235) LA Vol d MOD A4C 55.09 ml (test code = 5168177047) LVOT mean grad (test mmHg code = 6037716774) MAX Pred HR (test code = 2399055824) RVOT mean grad (test mmHg code = 1572975386) RVOT Vmn (test code 0.39 m/s = 5890533144) RVOT VTI (test code 0.10 m = 2090223329) 85 of MPHR (test code = 9150800956) Calc MPHR (test code bpm = 1973286276) IVS pct thck PLAX 24.74 % (test code = 6304423934) LV SV Cube 2D (test 75.87 ml code = 9610416890) LV vol d cube 2D 195.12 ml (test code = 1270588224) LV vol s cube 2D 119.25 ml (test code = 1181264816) LVPW pct thck PLAX 35.01 % (test code = 7149840155) LVPW s PLAX (test 1.37 cm code = 6729483687) MV Decel slope (test 6.69 m/s2 code = 9723864004) Pred Exer Dur R1 (test code = 7253400642) Pred METS R1 (test code = 3414283269) Velocity Ratio 0.48 m/s (V1/V2) (test code = 4689) EF (test code = 31.56 % 3676855180) E/A ratio (test code = 5789994429) LVOT VTI (CM) (test 18.00 cm code = 0257704425) BETH (test code = Left ventricular BETH) [...] views were obtained. Study quality is adequate. [facility] protein/creatinine ratio, [id number] 18:27:55 Test Item Value Reference Range Interpretation Comments Prot/creat ratio, 0.16 mg/L Corrected result; urine (test code = previousl y reported as 2890-2) @RANDY on 2020 at 20:30 by I/AUT [facility] RNA [Presence] in Respiratory specimen by CHANTEL with probe [id number] 01:44:30 Test Item Value Reference Range Interpretation Comments SARS-CoV-2 (COVID-19) RNA Not detected Not-Detected [Presence] in Respiratory specimen by CHANTEL with probe detection (test code = 64091-6) 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 (test code = 58427-3) Whether the patient has symptoms related to condition of interest (test code = 64633-0) Patient was hospitalized because of this condition (test code = 37722-5) Whether the patient was admitted to intensive care unit (ICU) for condition of interest (test code = 96802-1) Whether patient resides in a congregate care setting (test code = 16618-1)
--- NOTE | 2021-08-05 17:08 | RAD REPORT ---
EXAM DESCRIPTION: Fan Single View08/05/2021 5:01 pm CLINICAL HISTORY: Cough COMPARISON: None FINDINGS: The lungs appear clear of acute infiltrate. The heart is mildly enlarged. Postsurgical changes involve the chest. Pacemaker leads in place Central venous catheter with its tip in the superior vena cava IMPRESSION: No acute abnormalities displayed
[2021-08-05 17:19] LABS: Absolute Lymphocytes (CBC) 1.3 K/uL (0.7-4.9); Hematocrit 28.2 % (36.0-45.0); Lymphocytes % 15.8 % (15.3-44.8); MCV 89.9 fL (80-100); MPV 6.8 fL (7.6-11.3); RBC Red Blood Cell Count 3.14 M/uL (3.86-4.86)
[2021-08-05] MEDS ORDERED: NA CHLORIDE 0.9% 500 ML ONE (17:29)
[2021-08-05 17:47] LABS: Potassium 3.3 mmol/L (3.5-5.1); Troponin High Sensitivity 25.2 pg/mL (<58.9)
--- NOTE | 2021-08-05 18:27 | ER ---
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 Coronavirus screen: Vaccine status: Patient reports receiving the 2nd dose of the covid vaccine. Ebola Screen: No symptoms or risks identified at this time. Initial Sepsis Screen: Does the patient meet any 2 criteria? No. Patient's initial sepsis screen is negative. Does the patient have a suspected source of infection? No. Patient's initial sepsis screen is negative. Risk Assessment: Do you want to hurt yourself or someone else? Patient reports no desire to harm self or others. Onset of symptoms was August 05, 2021. 16:16 Method Of Arrival: EMS: [facility] 16:16 Acuity: BRAD 2 ph Triage Assessment: 16:22 General: Appears in no apparent distress. uncomfortable, Behavior is calm, cooperative, ph appropriate for age, Denies fever, chills. Pain: Denies pain. Neuro: Level of Consciousness is awake, obeys commands, lethargic, Oriented to person, place, time, situation. Cardiovascular: Capillary refill < 3 seconds in bilateral fingers Patient's skin is warm and dry. Respiratory: Airway is patent Respiratory effort is even, unlabored. GI: Abdomen is non-distended, Reports diarrhea, nausea, vomiting. Derm: Skin is fragile, is thin, Skin is pink, warm \\T\\ dry. Musculoskeletal: Circulation, motion, and sensation intact. Range of motion: intact in all extremities. Historical: - Allergies: 16:22 No Known Allergies; ph - Home Meds: 16:21 aspirin 81 mg Oral tab daily [Active]; atorvastatin 40 mg Oral tab 1 tab once daily ph [Active]; calcium acetate(phosphat bind) 667 mg Oral tab 2 tabs before meals [Active]; carvedilol 6.25 mg Oral tab 1 tab 2 times per day [Active]; hydralazine 25 mg Oral tab 1 tab three times a day [Active]; Iron CR 325mg Oral [Active]; isosorbide mononitrate 20 mg Oral tab 1 tab three times a day [Active]; Lantus U-100 Insulin 100 unit/mL Sub-Q soln 50 unit nightly [Active]; Lasix 40 mg Oral tab 1 tab once daily [Active]; Vitamin C 1,000 mg Oral tab 1000 mg daily [Active]; Vitamin D3 25 mcg (1,000 unit) Oral tab daily [Active]; - PMHx: 16:21 Congestive heart failure; diabetes mellitus; ESRD; Hypertensive disorder; ph 16:22 Peritoneal dialysis; ph - PSHx: 16:21 Pacemaker placement; Total abdominal hysterectomy; ph - Immunization history:: Adult Immunizations unknown. - Social history:: Smoking status: Patient denies any tobacco usage or history of. Screenin:23 Abuse screen: Denies threats or abuse. Denies injuries from another. Nutritional ph screening: No deficits noted. Tuberculosis screening: No symptoms or risk factors identified. Fall Risk None identified. Assessment: 17:00 General: SEE TRIAGE ASSESSMENT. ph 18:00 Reassessment: Patient appears in no apparent distress at this time. Patient and/or ph family updated on plan of care and expected duration. Pain level reassessed. Patient is alert, oriented x 3, equal unlabored respirations, skin warm/dry/pink. 19:44 General: Appears ill, Reports chills for. Pain: Denies pain. Respiratory: Respiratory as6 effort is even, unlabored, Respiratory pattern is regular, symmetrical. 19:46 General: Reports fatigue for. as6 19:46 Derm: Skin is pale. as6 Vital Signs: 16:16 BP 84 / 58; Pulse 65; Resp 16; Temp 98.2; Pulse Ox 97% on R/A; Weight 74.84 kg; Height ph 5 ft. 5 in. (165.10 cm); 16:30 BP 85 / 54; Pulse 74; Resp 18; Pulse Ox 99% on R/A; ph 17:00 BP 89 / 46; Pulse 74; Resp 18; Pulse Ox 99% on R/A; ph 17:30 BP 84 / 52; Pulse 76; Resp 16; Pulse Ox 99% ; ph 18:00 BP 80 / 60; Pulse 69; Resp 16; Pulse Ox 98% on R/A; ph 18:42 BP 109 / 68; Pulse 76; Resp 18; Pulse Ox 99% on R/A; ph 19:45 BP 82 / 50; Pulse 77; Resp 18; Pulse Ox 97% on R/A; as6 21:13 BP 118 / 72; Pulse 70; Resp 16 S; Pulse Ox 100% on R/A; as6 16:16 Body Mass Index 27.46 (74.84 kg, 165.10 cm) ph ED Course: 16:16 Patient arrived in ED. ph 16:18 Dm Moe DO is Attending Physician. ms3 16:21 Triage completed. ph 16:23 Arm band placed on Patient placed in an exam room, on a stretcher, on security monitor, ph on pulse oximetry. 16:24 Patient has correct armband on for positive identification. Bed in low position. Call ph light in reach. Side rails up X 1. Pulse ox on. NIBP on. Door closed. Noise minimized. Warm blanket given. 17:00 No provider procedures requiring assistance completed. Maintain EMS IV. Dressing ph intact. Site clean \\T\\ dry. Gauge \\T\\ site: 20 L hand. IV is patent, with fluids infusing freely, Flushed right hand with 5 ml normal saline. Patient admitted, IV remains in place. 17:03 XRAY Chest (1 view) In Process Unspecified. EDMS 17:08 Razia Gonzales, RN is Primary Nurse. ph 17:49 Notified ED physician of a critical lab result(s). K 6.2, creatinine 7.42. Dr. Moe ss notified. 18:26 Fabian Giordano MD is Hospitalizing Provider. ms3 19:02 Primary Nurse role handed off by Razia Gonzales, FIONA tw5 19:02 Sharda Campos is Primary Nurse. tw5 19:03 COVID-19 SARS RT PCR (Document "Date of Onset" if Symptomatic) Sent. tw5 Administered Medications: 17:34 Drug: NS 0.9% 500 ml Route: IV; Rate: 1000 ml; Site: right hand; ph 18:42 Follow up: Response: No adverse reaction; IV Status: Completed infusion; IV Intake: ph 500ml 19:44 Drug: midodrine 5 mg Route: PO; as6 22:56 Follow up: Response: No adverse reaction as6 21:29 Drug: ProTONIX (pantoprazole) 40 mg Route: IVP; Site: right forearm; as6 22:56 Follow up: Response: No adverse reaction as6 21:29 Drug: Zosyn (piperacillin-tazobactam) 3.375 grams Route: IVPB; Infused Over: 60 mins; as6 Site: right forearm; 08/06 00:38 Follow up: Response: No adverse reaction; IV Status: Completed infusion; IV Intake: as6 100ml 08/05 21:29 Drug: NS 0.9% 250 ml Route: IV; Rate: bolus; Site: right forearm; as6 08/06 00:38 Follow up: Response: No adverse reaction; IV Status: Completed infusion; IV Intake: as6 250ml Medication: 08/05 16:24 VIS not applicable for this client. ph Intake: 18:42 IV: 500ml; Total: 500ml. ph 08/06 00:38 IV: 100ml; Total: 600ml. as6 00:38 IV: 250ml; Total: 850ml. as6 Outcome: 08/05 18:26 Decision to Hospitalize by Provider. ms3 08/06 00:39 Admitted to ICU accompanied by nurse, via stretcher, room 7, with chart. as6 Condition: stable Instructed on the need for admit. 00:47 Patient left the ED. as6 Signatures: Dispatcher [employer] EDMS Madalyn Carlos, RN RN ss Razia Gonzales RN RN Dm Moe DO DO ms3 Sharda Campos tw5 Sixto Pelletier RN RN as6 Corrections: (The following items were deleted from the chart) 08/05 17:51 17:49 Notified ED physician of a critical lab result(s). K 6.2, creatinine elevated. ss Dr. Moe notified. ss
--- NOTE | 2021-08-05 18:27 | EDPHYS ---
Physician Documentation [facility] Name: Sierra Iqbal Age: 81 yrs Sex: Female : 1940 Arrival Date: 08/05/2021 Time: 16:16 Bed 3 Private MD: ED Physician Dm Michaud HPI: 08/05 16:35 This 81 yrs old Female presents to ER via EMS with complaints of ms3 Nausea/Vomiting/Diarrhea, Syncope. 16:35 The patient presents to the emergency department with nausea, vomiting, diarrhea. ms3 Onset: The symptoms/episode began/occurred 1 month(s) ago. Possible causes: unknown. The symptoms are aggravated by nothing. The symptoms are alleviated by nothing. Associated signs and symptoms: Pertinent positives: diarrhea, nausea, vomiting. Severity of symptoms: At their worst the symptoms were very mild in the emergency department the symptoms are unchanged. Historical: - Allergies: 16:22 No Known Allergies; ph - Home Meds: 16:21 aspirin 81 mg Oral tab daily [Active]; atorvastatin 40 mg Oral tab 1 tab once daily ph [Active]; calcium acetate(phosphat bind) 667 mg Oral tab 2 tabs before meals [Active]; carvedilol 6.25 mg Oral tab 1 tab 2 times per day [Active]; hydralazine 25 mg Oral tab 1 tab three times a day [Active]; Iron CR 325mg Oral [Active]; isosorbide mononitrate 20 mg Oral tab 1 tab three times a day [Active]; Lantus U-100 Insulin 100 unit/mL Sub-Q soln 50 unit nightly [Active]; Lasix 40 mg Oral tab 1 tab once daily [Active]; Vitamin C 1,000 mg Oral tab 1000 mg daily [Active]; Vitamin D3 25 mcg (1,000 unit) Oral tab daily [Active]; - PMHx: 16:21 Congestive heart failure; diabetes mellitus; ESRD; Hypertensive disorder; ph 16:22 Peritoneal dialysis; ph - PSHx: 16:21 Pacemaker placement; Total abdominal hysterectomy; ph - Immunization history:: Adult Immunizations unknown. - Social history:: Smoking status: Patient denies any tobacco usage or history of. ROS: 16:42 Constitutional: Negative for fever, and chills. Neck: Negative for injury, pain, and ms3 swelling, Cardiovascular: Negative for chest pain, and palpitations. Respiratory: Negative for shortness of breath, cough, wheezing, and pleuritic chest pain, Skin: Negative for injury, rash, and discoloration. 16:42 Abdomen/GI: Positive for nausea, vomiting, and diarrhea. 16:42 Neuro: Positive for dizziness. 16:42 All other systems are negative. Exam: 16:42 Constitutional: This is a well developed, well nourished patient who is awake, alert, ms3 and in no acute distress. Head/Face: Normocephalic, atraumatic. Neck: Trachea midline, no cervical lymphadenopathy. Supple, full range of motion without nuchal rigidity, or vertebral point tenderness. No Meningismus. Chest/axilla: Normal chest wall appearance and motion. Nontender with no deformity. Cardiovascular: Regular rate and rhythm with a normal S1 and S2. No gallops, murmurs, or rubs. Normal PMI, no JVD. No pulse deficits. Respiratory: Lungs have equal breath sounds bilaterally, clear to auscultation and percussion. No rales, rhonchi or wheezes noted. No increased work of breathing, no retractions or nasal flaring. Abdomen/GI: Soft, non-tender, with normal bowel sounds. No distension or tympany. No guarding or rebound. No evidence of tenderness throughout. Skin: Warm, dry with normal turgor. Normal color with no rashes, no lesions, and no evidence of cellulitis. Psych: Awake, alert, with orientation to person, place and time. Behavior, mood, and affect are within normal limits. 17:30 ECG was reviewed by the Attending Physician. ms3 Vital Signs: 16:16 BP 84 / 58; Pulse 65; Resp 16; Temp 98.2; Pulse Ox 97% on R/A; Weight 74.84 kg; Height ph 5 ft. 5 in. (165.10 cm); 16:30 BP 85 / 54; Pulse 74; Resp 18; Pulse Ox 99% on R/A; ph 17:00 BP 89 / 46; Pulse 74; Resp 18; Pulse Ox 99% on R/A; ph 17:30 BP 84 / 52; Pulse 76; Resp 16; Pulse Ox 99% ; ph 18:00 BP 80 / 60; Pulse 69; Resp 16; Pulse Ox 98% on R/A; ph 18:42 BP 109 / 68; Pulse 76; Resp 18; Pulse Ox 99% on R/A; ph 19:45 BP 82 / 50; Pulse 77; Resp 18; Pulse Ox 97% on R/A; as6 21:13 BP 118 / 72; Pulse 70; Resp 16 S; Pulse Ox 100% on R/A; as6 16:16 Body Mass Index 27.46 (74.84 kg, 165.10 cm) ph MDM: 16:18 Patient medically screened. ms3 16:42 Differential diagnosis: Nonspecific abd pain, gastritis, viral gastroenteritis, ms3 gastroenteritis, Dehydration. 18:26 Data reviewed: vital signs, nurses notes, lab test result(s), EKG, radiologic studies, ms3 and as a result, I will admit patient. Data interpreted: Pulse oximetry: on room air is 97 %. Interpretation: normal. Counseling: I had a detailed discussion with the patient and/or guardian regarding: the historical points, exam findings, and any diagnostic results supporting the discharge/admit diagnosis, lab results, radiology results, the need for further work-up and treatment in the hospital. ED course: Discussed patient with Yoan PERSONNEL ASSISTANT with Dr Giordano. He accepts patient. Discussed plan with patient and her daughter and they understand/ agree with plan. Patient's blood pressure has improved since arrival to the Emergency Department.. 08/05 16:19 Order name: Basic Metabolic Panel; Complete Time: 17:52 ms3 08/05 16:19 Order name: CBC with Diff; Complete Time: 17:52 ms3 08/05 16:19 Order name: NT PRO-BNP; Complete Time: 17:52 ms3 08/05 16:19 Order name: Troponin HS; Complete Time: 17:52 ms3 08/05 16:48 Order name: COVID-19 SARS RT PCR (Document "Date of Onset" if Symptomatic); Complete ss Time: 20:44 08/05 17:07 Order name: Occult Blood--Ancillary; Complete Time: 19:24 bd 08/05 16:19 Order name: XRAY Chest (1 view); Complete Time: 17:52 ms3 08/05 18:38 Order name: Abdomen ; Complete Time: 20:56 EDMS 08/05 23:20 Order name: Glucose, Ancillary Testing EDMS 08/05 16:19 Order name: EKG; Complete Time: 16:19 ms3 08 16:19 Order name: Cardiac monitoring; Complete Time: 16:24 ms3 08 16:19 Order name: EKG - Nurse/Tech; Complete Time: 17:34 ms3 08 16:19 Order name: IV Saline Lock; Complete Time: 16:24 ms3 08 16:19 Order name: Labs collected and sent; Complete Time: 17:09 ms3 08/05 16:19 Order name: O2 Per Protocol; Complete Time: 16:24 ms3 08/05 16:19 Order name: O2 Sat Monitoring; Complete Time: 16:24 ms3 08 21:12 Order name: NPO; Complete Time: 21:12 la1 EC:30 Rate is 67 beats/min. Rhythm is regular. QT interval is normal. Clinical impression: ms3 Paced. Interpreted by me. Administered Medications: 17:34 Drug: NS 0.9% 500 ml Route: IV; Rate: 1000 ml; Site: right hand; ph 18:42 Follow up: Response: No adverse reaction; IV Status: Completed infusion; IV Intake: ph 500ml 19:44 Drug: midodrine 5 mg Route: PO; as6 22:56 Follow up: Response: No adverse reaction as6 21:29 Drug: ProTONIX (pantoprazole) 40 mg Route: IVP; Site: right forearm; as6 22:56 Follow up: Response: No adverse reaction as6 21:29 Drug: Zosyn (piperacillin-tazobactam) 3.375 grams Route: IVPB; Infused Over: 60 mins; as6 Site: right forearm; 08/06 00:38 Follow up: Response: No adverse reaction; IV Status: Completed infusion; IV Intake: as6 100ml 08/05 21:29 Drug: NS 0.9% 250 ml Route: IV; Rate: bolus; Site: right forearm; as6 08/06 00:38 Follow up: Response: No adverse reaction; IV Status: Completed infusion; IV Intake: as6 250ml Disposition Summary: 08/05/21 18:26 Hospitalization Ordered Provider: Fabian Giordano ms3 Condition: Stable ms3 Problem: new ms3 Symptoms: are unchanged ms3 Bed/Room Type: Standard ms3 Hospitalization Status: Inpatient Admission(08/05/21 18:29) ms3 Location: Intensive Care Unit(08/06/21 00:33) cg Room Assignment: 7-(08/06/21 00:33) cg Diagnosis - Hypotension, unspecified ms3 - End stage renal disease ms3 - Syncope ms3 Forms: - Medication Reconciliation Form ms3 - SBAR form ms3 Signatures: Dispatcher [employer] EDRajendra Stokes MD MD rn Attema, Lee, FREIGHT FLAGMAN-C FREIGHT FLAGMAN-Cla1 Razia Gonzales RN RN Maddi Park RN RN Dm Richard DO DO ms3 Faith Osuna RN RN ld1 Sixto Pelletier RN RN as6 Corrections: (The following items were deleted from the chart) 08/05 18:29 18:26 Observation ms3 ms3 18:29 18:26 Telemetry/MedSurg (observation) ms3 ms3 18:29 18:26 ms3 ms3 21:04 18:29 ms3 cg 21:06 21:04 201 cg cg 21:26 18:29 Telemetry/MedSurg (Inpatient) ms3 ld1 21:26 21:06 cg ld1 08/06 00:33 08 21:26 [facility] ER HOLD ld1 cg 08/06 00:33 08/05 21:26 ERHOLD- ld1 cg
--- NOTE | 2021-08-05 19:43 | P.HP ---
Certification for Inpatient Patient admitted to: Inpatient With expected LOS: >2 Midnights Patient will require the following post-hospital care: None Practitioner: I am a practitioner with admitting privileges, knowledge of patient current condition, hospital course, and medical plan of care. Services: Services provided to patient in accordance with Admission requirements found in Title 42 Section 412.3 of the Code of Federal Regulations Patient History Date of Service: 08/05/21 Reason for admission: Syncope, hypotension History of Present Illness: 81-year-old female history of chronic systolic congestive heart failure, ESRD on PD but with HD catheter in place, DMII, presents emergency room after having a syncopal episode, patient reports that she was straining to have a bowel movement when this occurred although she does report that she has been having dizziness and lightheadedness over the course of the last week or so it was noted that she was hypotensive and orthostatic in the emergency department she was given 500 cc NS bolus blood pressure has improved but still on the low side her labs were significant for normocytic anemia and other findings of ESRD chest x-ray was unremarkable without signs of volume overload. Patient does report that she been having difficulty taking her oral medications as well as persistent nausea vomiting over the course last 1 to 2 weeks, a CT has been ordered to further evaluate this. Patient was also admitted to the rehab unit earlier this year at which time she did have some degree of chronic hypotension requiring midodrine during her stay. Patient was given dose of midodrine in the emergency department will need to admit for further evaluation and management of hypotension, syncope on ESRD. Allergies No Known Allergies Allergy (Verified 04/16/21 16:34) Home Medications: Acetaminophen [Tylenol*] 650 mg PO Q6H PRN tab 05/06/21 Apixaban [Eliquis] 5 mg PO BID tablet 05/06/21 Atorvastatin Calcium [Lipitor] 40 mg PO BEDTIME tab 05/06/21 Calcitrol [Rocaltrol*] 0.25 mcg PO DAILY cap 05/06/21 Docusate [Colace Cap*] 100 mg PO BID PRN cap 05/06/21 Docusate/Senna [Senokot-S*] 2 tab PO BEDTIME PRN tab 05/06/21 Epoetin Carlos-Epbx [Retacrit] 6,000 unit IV TuThSa@1700 vial 05/06/21 Ferrous Sulfate [Ferrous Sulfate*] 325 mg PO DAILY tab 05/06/21 Heparin [Heparin 1,000 units/mL *] 6,000 unit IV EVERY HD PRN vial 05/06/21 Insulin Glargine,Hum.rec.anlog [Semglee] 30 unit SQ DAILY ml 05/06/21 Insulin Lispro [Humalog*] 10 unit SQ TIDWM ml 05/06/21 Ipratropium Neb [Atrovent*] 0.5 mg NEB [id number] PRN amp 05/06/21 Iron/FA/Vit B-Com W/C [Hemocyte Plus*] 1 tab PO DAILY WITH BREAKFAST tab 05/06/21 Lidocaine 4% Patch [Lidoderm 5% Patch*] 1 patch TOP DAILY patch 05/06/21 Melatonin [Melatonin*] 3 mg PO BEDTIME PRN PRN tablet 05/06/21 Midodrine HCl [Proamatine*] 5 mg PO BID tab 05/06/21 Mirtazapine [Remeron*] 15 mg PO BEDTIME tab 05/06/21 Nitroglycerin [Nitrostat*] 0.4 mg SL UD PRN tab 05/06/21 Ondansetron [Zofran (Odt)*] 4 mg PO Q4H PRN tab 05/06/21 Pantoprazole [Protonix Tab*] 40 mg PO BIDAC tab 05/06/21 Polyethyl Gly 3350 [Glycolax*] 17 gm PO BID PRN udbot 05/06/21 Vitamin B Complex [Vitamin B Complex*] 1 cap PO DAILY cap 05/06/21 Zinc Sulfate [Zinc Sulfate*] 220 mg PO DAILY cap 05/06/21 carvediloL [Coreg*] 3.125 mg PO BID 6AM 6PM tab 05/06/21 - Past Medical/Surgical History Diabetic: Yes -: CHF -: CAD -: DM -: Stroke, no residual -: HTN -: CKD on Peritoneal dialysis @[facility] -: Cabg x4 04/06/21 Psychosocial/ Personal History: Patient lives at home with her daughter - Family History Mother -: Cancer Father -: Heart disease Sister -: Cancer - Social History Smoking Status: Never smoker Alcohol use: No CD- Drugs: No Caffeine use: Yes Place of Residence: Home Review of Systems 10-point ROS is otherwise unremarkable General: Weakness, Malaise Cardiovascular: Light Headedness, Other (Syncope), As per HPI Gastrointestinal: Nausea, Vomiting Physical Examination - Physical Exam General: Alert, In no apparent distress, Oriented x3, Obese HEENT: Atraumatic, PERRLA, Mucous membr. moist/pink, EOMI, Sclerae nonicteric Neck: Supple, 2+ carotid pulse no bruit, No LAD, Without JVD or thyroid abnormality Respiratory: Clear to auscultation bilaterally, Normal air movement Cardiovascular: Regular rate/rhythm, Normal S1 S2 Capillary refill: <2 Seconds Gastrointestinal: Normal bowel sounds, No tenderness Musculoskeletal: No tenderness Integumentary: No rashes Neurological: Normal gait, Normal speech, Normal strength at 5/5 x4 extr, Normal tone, Normal affect - Studies Laboratory Data (last 24 hrs) 08/05/21 16:50: WBC 8.0, Hgb 9.6 L, Hct 28.2 L, Plt Count 144 L 08/05/21 16:50: Sodium 140, Potassium 3.3 L, BUN 39 H, Creatinine 7.42 H*, Glucose 121 H Microbiology Data (last 24 hrs): 08/05/21 17:07 Stool Occult Blood - Final Assessment and Plan - Plan Assessment: Syncope History of hypertension currently with hypotension Nausea and vomiting ESRD on PD/with HD cath Chronic diastolic congestive heart failure 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 Orthostatics were positive in the ER has received some IV fluids chest x-ray negative for volume overload pattern we will continue with small boluses as necessary to maintain blood pressure. History of hypertension currently with hypotension: Received IV fluids in the ER during her stay in rehab was receiving midodrine 5 mg p.o. twice daily, given dose of midodrine now, will continue midodrine 5 mg p.o. twice daily. Appreciate further input from nephrology. Nausea and vomiting: Reports ongoing nausea vomiting over the course last week or 2 CT pending to further evaluate we will continue daily Protonix clear liquid diet advance as tolerated. ESRD on PD/with HD cath: Typically does peritoneal dialysis at home but does have hemodialysis catheter that was inserted during her rehab stay, nephrology consulted for assistance in managing her dialysis needs. Chronic diastolic congestive heart failure: Stable, continue as above. CAD status post CABG: Monitor telemetry, continue home medication. Diabetes type 2insulin-dependent: ACH S Accu-Chek, sliding scale insulin. DVT PPX: Heparin Code status: Full Discharge Plan: Home Plan to discharge in: 24 Hours - Advance Directives Does patient have a Living Will: No Does patient have a Durable POA for Healthcare: No - Code Status/Comfort Care Code Status Assessed: Yes (Full code) Critical Care: No Time Spent Managing Pts Care (In Minutes): 55
--- NOTE | 2021-08-05 20:51 | RAD REPORT ---
EXAM DESCRIPTION: CT - Abdomen Pelvis Wo Contrast - 08/05/2021 8:28 pm CLINICAL HISTORY: Abdominal pain vomiting COMPARISON: March 2021 TECHNIQUE: Computed axial tomography of the abdomen and pelvis was obtained. IV and oral contrast we re not requested. All CT scans are performed using dose optimization technique as appropriate and may include automated exposure control or mA/KV adjustment according to patient size. FINDINGS: The evaluation of solid organs, vessels and bowel is limited secondary to the lack of con trast administration. The liver, spleen, pancreas, adrenals and kidneys appear grossly normal. Dialysis catheter within the pelvis. Pneumoperitoneum. There probably is a perforation of the anterior aspect of the distal stomach. Small amount of ascites IMPRESSION: Pneumoperitoneum. This likely indicates a bowel perforation. Anterior aspect of the dist al stomach is the probable source. Kang Page of the emergency room notified
[2021-08-05] MEDS ORDERED: PANTOPRAZOLE 40 MG INJ ONE (21:22)
[2021-08-05] MEDS ORDERED: PIPERACIL/TAZO 3.375 GM VIAL IV ONE (21:22)
[2021-08-05] MEDS ORDERED: NA CHLORIDE 0.9% 250 ML ONE (21:22)
[2021-08-05] MEDS ORDERED: NA CHLORIDE 0.9% 100 ML ONE (21:22)
[2021-08-05] MEDS ORDERED: SODIUM CHLORIDE 0.9% 10ML INJ IV PRN (22:30)
[2021-08-05] MEDS: INSULIN -REGULAR HUMAN 50 UNIT/0.5 ML ML SQ SCH (22:30)
[2021-08-06 05:48] LABS: Absolute Lymphocytes (CBC) 1.1 K/uL (0.7-4.9); Hematocrit 22.6 % (36.0-45.0); Lymphocytes % 19.5 % (15.3-44.8); MCV 89.4 fL (80-100); MPV 6.4 fL (7.6-11.3); RBC Red Blood Cell Count 2.53 M/uL (3.86-4.86)
[2021-08-06] MEDS ORDERED: NA CHLORIDE 0.9% 250 ML ONE (06:01)
[2021-08-06 06:25] LABS: AST/SGOT 7 U/L (15-37); Albumin 2.1 g/dL (3.4-5.0); Alkaline Phosphatase 80 U/L (45-117); BUN Blood Urea Nitrogen 51 mg/dL (7-18); Bicarbonate 24 mmol/L (21-32); Bilirubin Total 0.4 mg/dL (0.2-1.0); Glomerular Filtration Rate 4 ml/min (=/>90); Glucose Level 115 mg/dL (74-106); Potassium 4.4 mmol/L (3.5-5.1); Protein, Total 5.6 g/dL (6.4-8.2); Sodium Level 134 mmol/L (136-145)
[2021-08-06 06:27] LABS: ALT/SGPT < 10 U/L (12-78)
--- NOTE | 2021-08-06 06:28 | EKG ---
Test Date: 2021-08-05 Test Time: 17:30:17 Profile Saw Setup Operator: MICHELE MEASUREMENT RESULTS: Intervals: Rate: 67 AK: QRSD: 98 QT: 488 QTc: 515 [place]: P: 67 AK: QRS: 33 T: 251 INTERPRETIVE STATEMENTS: Sinus rhythm with occasional ventricular-paced complexes ST & Marked T wave abnormality, consider anterolateral ischemia Prolonged QT Abnormal ECG Compared to ECG 04/27/2021 12:43:25 T-wave abnormality now present Possible ischemia now present Prolonged QT interval now present Electronically Signed On 08-06-21 06:27:36 CDT by Ned Matthews
[2021-08-06] MEDS: NA CHLORIDE 0.9% 250 ML IV PRN ×2 (06:29→06:43)
[2021-08-06] MEDS: INSULIN -REGULAR HUMAN 50 UNIT/0.5 ML ML SQ SCH ×4 (07:21→20:39)
[2021-08-06] MEDS: PIPER TAZO 3.375 GM in NA CHLORIDE 0.9% 100 ML IV SCH ×2 (08:28→20:38)
[2021-08-06] MEDS: PANTOPRAZOLE 40 MG INJ IVP SCH ×2 (08:28→20:38)
[2021-08-06] MEDS: MIDODRINE HCL 5 MG TABLET PO SCH ×3 (08:37→20:38)
[2021-08-06] MEDS: ONDANSETRON 4 MG/2 ML VIAL IV PRN (08:55)
[2021-08-06] MEDS ORDERED: MIDODRINE HCL 5 MG TABLET PO SCH (09:00)
[2021-08-06] MEDS ORDERED: EPOETIN ALFA 10,000 UNIT/ML VIAL IV ONE (09:30)
[2021-08-06] MEDS ORDERED: NA CHLORIDE 0.9% 1,000 ML IV SCH (10:00)
--- NOTE | 2021-08-06 13:43 | CON ---
Date of Consultation: 08/06/2021 Reason For Consultation: ESRD on peritoneal dialysis. History Of Present Illness: Ms. Iqbal is a 81-year-old female with past medical history signifi cant for history of ESRD, on dialysis for the last close to a year. She is currently living with her daughter who brought her into the hospital because of syncopal episodes x2 yesterday. The patient h as had 4-vessel coronary bypass back in March and since that time her symptoms started gradually o f decreased appetite, failure to thrive, and has progressively gotten worse with severe nausea and vo miting and unable to keep any food down. The patient has been continuing to do peritoneal dialysis w ith the help of her daughter who has been able to do PD at home. However, at this time, she has brou ght her in because of the syncopal episodes. She was found to have severe hypotension. She received few boluses of fluid yesterday and again this morning. She had a CT scan of her abdomen which showe d some free air, which is likely from the peritoneal dialysis catheter, but she is currently n.p.o. a nd awaiting surgical clearance for her to eat. She is completely asymptomatic in terms of her abdomi nal symptoms. Denies any abdominal pain. She has chronic nausea and vomiting. Past Medical History: Significant for history of ESRD on dialysis, history of coronary artery diseas e status post CABG, history of stroke, no residual deficits, history of diabetes. Family History: Significant for mother with history of cancer and father with history of heart disea se. Social History: No history of smoking, alcohol, or drug use reported. Currently living at home with her daughter. Home Medications: Have been reviewed. She remains on midodrine for chronic hypotension, Retacrit, i nsulin, Remeron, and Coreg 3.125 mg b.i.d. Physical Examination: Vital Signs: At this time are showing temperature of 97.2, pulse rate of 83, respiratory rate of 18, and blood pressure 93/59. General: She appears in no acute distress. She appears lethargic and with flat affect. HEENT: Shows atraumatic head. Lungs: Clear to auscultation. Abdomen: Obese, nontender. PD catheter in place. No tenderness, rebound or guarding was noted. Extremities: Showed no evidence of edema at all. Neurologic: She is alert, awake, and oriented x3. Her daughter is at bedside. No focal gross motor neurological deficits were noted. Laboratory Data: At this time are showing BUN of 51, creatinine of 10, sodium of 134, potassium of 4 .4, chloride was 98. LFTs are within normal limits. CBC showing hemoglobin of 7.7, hematocrit of 22 .6, and platelet count of 173. Current Medications: Have been reviewed in detail. She is on midodrine 10 mg 3 times a day. Coreg is on hold. I have ordered Retacrit 10,000 one time dose for her anemia. She is on Zosyn 3.375 g ev natalie [address] scan of her abdomen and pelvis showing pneumoperitoneum without any other acute abd ominal findings and dialysis catheter was noted within the pelvis. Impression: 1.End-stage renal disease, on peritoneal dialysis. The patient also has a hemodialysis catheter in her right IJ because she was on hemodialysis intermittently back in May when she went to [facility]. Righ t now she is currently on PD. The patient's volume status seems okay and status seems oka y and given her hypotension we will hold off on any dialysis for today. We will try to order some ge ntle IV hydration to improve her volume status and monitor her labs closely and follow up on her volu ri status tomorrow and reassess her situation. 2.Pneumoperitoneum, likely secondary to placement of PD catheter, unlikely secondary to bowel perfor ation. We are awaiting surgical consult. 3.Failure to thrive with nausea, vomiting, and decreased p.o. intake with hypokalemia and hypophosph atemia that has been going on for a long time. The patient will benefit from GI consultation to furt her evaluate this. 4.Anemia secondary to chronic kidney disease. The patient will be given some Epogen and monitor chelsie sely. 5.Hypotension. Continue midodrine. Rule out sepsis. Cultures are still pending at this time and f ollow up closely. Plan: Overall, the patient's condition is guarded. We will try to correct the hypotension. Start h er on gentle IV hydration to avoid further volume overload also and monitor labs closely. Hold off o n further dialysis hemo or peritoneum at this time and monitor closely. VV/MODL Voice ID: [id number] Report ID: [id number]
[2021-08-06] MEDS ORDERED: propofoL 200 MG/20 ML VIAL IV ONE (14:20)
[2021-08-06] MEDS ORDERED: LIDOCAINE 1% MPF 5 ML VIAL ONE (14:20)
[2021-08-07 05:51] LABS: Absolute Lymphocytes (CBC) 1.4 K/uL (0.7-4.9); Hematocrit 25.3 % (36.0-45.0); Lymphocytes % 22.1 % (15.3-44.8); MCV 89.3 fL (80-100); MPV 6.4 fL (7.6-11.3); RBC Red Blood Cell Count 2.84 M/uL (3.86-4.86)
[2021-08-07 06:13] LABS: AST/SGOT 8 U/L (15-37); Albumin 2.1 g/dL (3.4-5.0); Alkaline Phosphatase 78 U/L (45-117); BUN Blood Urea Nitrogen 56 mg/dL (7-18); Bicarbonate 24 mmol/L (21-32); Bilirubin Total 0.4 mg/dL (0.2-1.0); Glomerular Filtration Rate 3 ml/min (=/>90); Glucose Level 103 mg/dL (74-106); Potassium 4.6 mmol/L (3.5-5.1); Protein, Total 5.7 g/dL (6.4-8.2); Sodium Level 134 mmol/L (136-145)
[2021-08-07 06:14] LABS: ALT/SGPT < 10 U/L (12-78)
[2021-08-07] MEDS: INSULIN -REGULAR HUMAN 50 UNIT/0.5 ML ML SQ SCH ×4 (07:30→20:48)
[2021-08-07] MEDS: PANTOPRAZOLE 40 MG INJ IVP SCH ×2 (08:09→20:48)
[2021-08-07] MEDS: PIPER TAZO 3.375 GM in NA CHLORIDE 0.9% 100 ML IV SCH ×2 (08:09→20:47)
[2021-08-07] MEDS: MIDODRINE HCL 5 MG TABLET PO SCH ×3 (08:09→20:48)
[2021-08-07] MEDS: ONDANSETRON 4 MG/2 ML VIAL IV PRN ×2 (09:55→16:54)
--- NOTE | 2021-08-07 11:13 | ECHO ---
HEIGHT: 5 ft 5 in WEIGHT: 184 lb 14.4 oz DATE OF STUDY: 08/07/[address]: Fabian Giordano MD 2-DIMENSIONAL: YES M.MODE: YES DOPPLER: YES COLOR FLOW: YES TDS: NO PORTABLE: YES DEFINITY: NO BUBBLE STUDY: NO DIAGNOSIS: PATIENT WITH SIGNIFICANT CARDIAC HISTORY, PERSISTENT HYPOTENSION CARDIAC HISTORY: CATHERIZATION:YES SURGERY: YES PROSTHETIC VALVE: NO PACEMAKER: YES MEASUREMENTS (cm) DIASTOLIC (NORMALS) SYSTOLIC (NORMALS) IVSd 1.1 (0.6-1.2) LA Diam 3.6 (1.9-4.0) LVEF 52% LVIDd 4.5 (3.5-5.7) LVIDs 3.3 (2.0-3.5) %FS 27% LVPWd 1.1 (0.6-1.2) Ao Diam 2.6 (2.0-3.7) 2 DIMENSIONAL ASSESSMENT: RIGHT ATRIUM: NORMAL LEFT ATRIUM: NORMAL RIGHT VENTRICLE: PACEMAKER LEFT VENTRICLE: NORMAL TRICUSPID VALVE: NORMAL MITRAL VALVE: MITRAL ANNULAR CALCFICATION PULMONIC VALVE: NORMAL AORTIC VALVE: SCLEROSIS PERICARDIAL EFFUSION: NONE AORTIC ROOT: NORMAL LEFT VENTRICULAR WALL MOTION: NORMAL LEFT VENTRICULAR EJECTION FRACTION. DECREASED LEFT VENTRICULAR COMPLIANCE. DOPPLER/COLOR FLOW: DECREASED LEFT VENTRICULAR COMPLIANCE. COMMENTS: PERMANENT PACEMAKER IN RIGHT VENTRICULAR APEX. AORTIC SCLEROSIS. MITRAL ANNULAR CALCFICATION. DECREASED LEFT VENTRICULAR COMPLIANCE. NORMAL LEFT VENTRICULAR EJECTION FRACTION. NO EFFUSION. TECHNOLOGIST: Ottoniel VANCE
[2021-08-07] MEDS: SUCRALFATE 1 GM TABLET PO SCH ×3 (11:36→20:48)
--- NOTE | 2021-08-07 14:16 | PN ---
Date of Progress Note: 08/07/2021 Subjective: The patient was seen and examined at bedside. She had EGD yesterday, which showed duode nitis and gastritis. She looks little bit better as compared to yesterday. Her daughter is at [facility]. Physical Examination: Vital Signs: Showing temperature of 97.1, pulse rate of 71, respiratory rate of 18, and blood pressu re 98/55. General: She appears in no acute distress. HEENT: Atraumatic head. Lungs: Auscultation of lungs revealed bilateral equal air entry. Abdomen: Soft and nontender. Extremities: Showed no evidence of edema. She is alert, awake, and oriented x3. Laboratory Data: At this time are showing creatinine of 10.7, BUN of 56, and sodium of 134. LFTs ar e within normal limits. CBC showing stable hemoglobin, hematocrit, and platelet count, which is impr oving. Current Medications: Have been reviewed in detail. Impression: 1.End-stage renal disease, on peritoneal dialysis. The patient was on peritoneal dialysis. She als o has a right-sided tunneled dialysis catheter for hemodialysis. We will need to remove it at some p oint, but will leave it in for right now. We will plan for peritoneal dialysis tonight with a 1.5% d extrose and no ultrafiltration to be done. 2.Hypotension with orthostatic hypotension. The patient is currently on midodrine. Cardiac etiolog y is being ruled out. Cardiac evaluation is being done. She has chronic failure to thrive. She got some IV fluids yesterday. We will do gentle peritoneal dialysis without any ultrafiltration and mon itor closely. 3.Anemia secondary to chronic disease. She got a dose of Retacrit. Continue to monitor. 4.Severe debility and weakness. 5.History of chronic congestive heart failure, compensated. History of coronary artery disease, sta ble. 6.Gastritis, noted on the esophagogastroduodenoscopy. We will go ahead and order a PPI and sucralfa te with some Zofran to help her with her eating. VV/MODL Voice ID: [id number] Report ID: [id number]
--- NOTE | 2021-08-07 17:46 | P.PN ---
Subjective Date of Service: 08/06/21 Chief Complaint: Syncope, hypotension Subjective: No new changes, Improving Physical Examination - Vital Signs Temperature: 97.6 F Blood Pressure: 122/51 Pulse: 80 Respirations: 15 Pulse Ox (%): 100 - Physical Exam General: Alert, Oriented x3 HEENT: Atraumatic, Normocephalic Neck: Supple Respiratory: Normal air movement Cardiovascular: Regular rate/rhythm, Normal S1 S2 Gastrointestinal: Soft and benign Musculoskeletal: No swelling Neurological: Normal speech, Normal strength at 5/5 x4 extr Assessment And Plan - Plan Syncope History of hypertension currently with hypotension Nausea and vomiting ESRD on PD/with HD cath Chronic diastolic congestive heart failure CAD status post CABG Diabetes type 2insulin-dependent Plan: Syncope: No repeat episode. We will follow closely. Cardiology following for management recommendations. History of hypertension currently with hypotension: Concerns for vol depletion noted. We will follow closely. Cardiology evaluating. Nausea and vomiting: No repeat episodes. we will follow closely. ESRD on PD/with HD cath: PD/HD as per nephrology. Chronic diastolic congestive heart failure: Stable, continue as above. CAD status post CABG: Monitor telemetry, continue home medication. Diabetes type 2insulin-dependent: ACH S Accu-Chek, sliding scale insulin. Pneumoperitonium: Has been worked up by GI and there was no concern for perforation. Pantoprazole dose to be continued. DVT PPX: Heparin. Code status: Full. Discharge Plan: Home.
--- NOTE | 2021-08-07 17:52 | P.PN ---
Subjective Date of Service: 08/07/21 Chief Complaint: Syncope, hypotension Subjective: No new changes, Improving (still has hypotensive episodes.) Physical Examination - Vital Signs Temperature: 97.6 F Blood Pressure: 122/51 Pulse: 80 Respirations: 15 Pulse Ox (%): 100 - Physical Exam General: Alert, Oriented x3 HEENT: Atraumatic, Normocephalic Neck: Supple Respiratory: Normal air movement Cardiovascular: Regular rate/rhythm, Normal S1 S2 Gastrointestinal: Soft and benign Musculoskeletal: No swelling Neurological: Normal speech, Normal strength at 5/5 x4 extr Assessment And Plan - Plan Syncope History of hypertension currently with hypotension Nausea and vomiting ESRD on PD/with HD cath Chronic diastolic congestive heart failure 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 No repeat episode since admission. we will monitor in telemetry. History of hypertension currently with hypotension: Cardiology following. On midodrine for control. Nausea and vomiting: Resolved. we will follow closely. ESRD on PD/with HD cath: Nephrology following for dialysis needs. Chronic diastolic congestive heart failure: Stable, continue as above. CAD status post CABG: Monitor telemetry, continue home medication. Diabetes type 2insulin-dependent: ACH S Accu-Chek, sliding scale insulin. DVT PPX: Heparin. Code status: Full. Discharge Plan: Home.
--- NOTE | 2021-08-07 19:58 | OP ---
Surgeon: Zev Gilbert MD Procedure Performed: Esophagogastroduodenoscopy. Indication For Procedure: Persistent nausea, vomiting, questionable gastric perforation. Plan For Anesthesia: Monitored anesthesia care. Complexity: High due to the patient's comorbidities. Technique: After obtaining informed consent from the patient and explaining risks and complications, which include, but are not limited to bleeding, infection, perforation, and anesthesia complication, the patient was placed in the left lateral position and sedation was given. From then on, the scope was advanced into the mouth and carefully guided up till the second portion of the duodenum. After the examination was completed and all diagnostic maneuvers done, the scope and equipment were withdra wn and procedure terminated in a safe manner. Findings: Esophagus: No gross lesion seen in the upper and mid esophagus. A small hiatal hernia se en in the distal portion. The Z-line was irregular. Biopsies taken. Stomach: A very mild patchy erythema seen in the body and antrum biopsies taken. Duodenum: Mild erythema seen in the duodenal bulb. Biopsies taken. The second portion of the duode num was normal. Complications: None. Tolerance To Anesthesia: Excellent. Estimated Blood Loss: Minimal. Postoperative Diagnoses: Mild gastritis, mild duodenitis. Plan: 1.Await pathology results. 2.Continue PPI, avoid NSAIDs. 3.Follow up with primary care team and Renal to evaluate for non-GI cause of her symptoms. US/MODL Voice ID: [id number] Report ID: [id number]
[2021-08-08 05:25] LABS: Absolute Lymphocytes (CBC) 1.4 K/uL (0.7-4.9); Lymphocytes % 22.3 % (15.3-44.8); MCV 88.8 fL (80-100); MPV 6.6 fL (7.6-11.3)
[2021-08-08 05:47] LABS: AST/SGOT 9 U/L (15-37); Alkaline Phosphatase 74 U/L (45-117); BUN Blood Urea Nitrogen 53 mg/dL (7-18); Bicarbonate 23 mmol/L (21-32); Bilirubin Total 0.3 mg/dL (0.2-1.0); Glomerular Filtration Rate 4 ml/min (=/>90); Glucose Level 156 mg/dL (74-106); Potassium 3.9 mmol/L (3.5-5.1); Protein, Total 5.8 g/dL (6.4-8.2); Sodium Level 132 mmol/L (136-145)
[2021-08-08 05:50] LABS: ALT/SGPT < 10 U/L (12-78)
[2021-08-08] MEDS: INSULIN -REGULAR HUMAN 50 UNIT/0.5 ML ML SQ SCH ×4 (07:30→20:11)
[2021-08-08] MEDS: SUCRALFATE 1 GM TABLET PO SCH ×4 (08:51→20:10)
[2021-08-08] MEDS: PIPER TAZO 3.375 GM in NA CHLORIDE 0.9% 100 ML IV SCH ×2 (08:51→20:09)
[2021-08-08] MEDS: ONDANSETRON 4 MG/2 ML VIAL IV PRN ×2 (08:51→17:24)
[2021-08-08] MEDS: PANTOPRAZOLE 40 MG INJ IVP SCH ×2 (08:51→20:10)
[2021-08-08] MEDS: MIDODRINE HCL 5 MG TABLET PO SCH ×3 (08:51→20:10)
--- NOTE | 2021-08-08 11:29 | CON ---
Date of Consultation: 08/07/2021 Reason For Consultation: Hypotension and an extensive past cardiac history. History Of Present Illness: Ms. Iqbal is a 81-year-old woman, who came in to the emergency room complaining of nausea, vomiting, diarrhea, and syncope. Has remained hypotensive and I was consulte d. Ms. Iqbal has an extensive history. She has had congestive heart failure, diabetes, end-sta ge renal disease, hypertension. She is on peritoneal dialysis. She has also has a history of monet ry artery disease, dyslipidemia. Has a history of pacemaker placement. There were some questions ab out a perforated stomach, but apparently that had been ruled out. She does have gastritis, esophagit is, and colitis. She is on antibiotics, but remained slightly hypotensive and I was consulted. The patient had no cardiac symptoms. She denied PND, orthopnea, pedal edema, palpitations, or syncope. She denied any chest pain. Denied any shortness of breath. Past Medical History: As stated above. Allergies: NONE. Review of Systems: Negative. Social History: Negative. Family History: Negative. Medications: At home include aspirin, Lipitor, calcium, hydralazine, carvedilol, isosorbide, insulin , Lasix, and vitamins. Physical Examination: Vital Signs: Her blood pressure when I saw her was 122/51. She was in a paced rhythm, afebrile, 96% room air saturation. HEENT: Negative. Neck: Supple with no bruit. Chest: Clear. Cardiac: Revealed a paced rhythm. No murmurs, gallops, or rubs. Abdomen: Benign. Extremities: Revealed no clubbing, cyanosis, or edema. Diagnostic Data: Showed her creatinine is 10.7. Her hemoglobin is 8.7. Her potassium was 4.6, gluc ose was 178. Her EKG showed sinus rhythm with occasional PVCs. Chest x-ray was negative. Impression And Plan: Hypotension secondary to dehydration from nausea, vomiting and diarrhea, which may be secondary to gastritis and/or colitis. No cardiac symptoms and this is definitely not a cardi ac hypotension. She is normotensive today. Echocardiogram is pending. I will continue her present regimen definitely, continue hold her Coreg and hydralazine as well as Bumex for now. Nephrology is following. She is getting peritoneal dialysis. I do not have any more recommendation from a cardiac standpoint. We will see what her echocardiogram shows. Her other problems including diabetes and d yslipidemia and coronary artery disease seem to be stable at this point. SUSANA Voice ID: [id number] Report ID: [id number]
[2021-08-08 12:11] LABS: C.diff Antigen/Toxin Ag neg : Tox neg (NEG : NEG)
--- NOTE | 2021-08-08 12:17 | PN ---
Date of Progress Note: 08/08/2021 Ms. Iqbal was seen yesterday for hypotension, which I thought was secondary to dehydration, poss ible gastritis, colitis and maybe peritonitis. She has been followed by Nephrology for peritoneal di alysis. Perforated bowel possibility and diagnosis were ruled out. Dr. Curiel is on the case. I r ecommended we hold her Bumex and hydralazine and Coreg. Echocardiogram which was done yesterday show ed an ejection fraction of 52%, no wall motion abnormalities, no effusion, pacemaker in the right fernando tricular apex. Her pacemaker is functioning appropriately. Again, I do not think we are dealing wit h any cardiac issue. We will continue present regimen, reinstate her blood pressure pills whenever s he is able to tolerate it today. Her blood pressure is 109/57. I will sign off the case. I will be available for questions if the need arises. TACO/JENSEN Voice ID: [id number] Report ID: [id number]
[2021-08-08] MEDS ORDERED: PROMETHAZINE INJ 25 MG/ML AMP IV PRN ×2 (12:33→12:35)
--- NOTE | 2021-08-08 16:13 | P.PN ---
Subjective Date of Service: 08/08/21 Chief Complaint: Syncope, hypotension Subjective: No new changes, Improving Physical Examination - Vital Signs Temperature: 97.1 F Blood Pressure: 106/52 Pulse: 79 Respirations: 16 Pulse Ox (%): 100 - Physical Exam General: Alert, Oriented x3 HEENT: Atraumatic, Normocephalic Neck: Supple Respiratory: Normal air movement Cardiovascular: Regular rate/rhythm, Normal S1 S2 Gastrointestinal: Soft and benign Musculoskeletal: No swelling Neurological: Normal speech, Normal strength at 5/5 x4 extr Assessment And Plan - Plan Syncope History of hypertension currently with hypotension Nausea and vomiting ESRD on PD/with HD cath Chronic diastolic congestive heart failure CAD status post CABG Diabetes type 2insulin-dependent Plan: Syncope: No repeat episode. We will follow closely. Cardiology following for management recommendations. History of hypertension currently with hypotension: Concerns for vol depletion noted. We will follow closely. Cardiology evaluating. Rate is adequate for now. Nausea and vomiting: Continues to have episode of nausea however she is stable. Will continue Zofran and as needed Phenergan for management. ESRD on PD/with HD cath: PD prescription as per nephrology. Chronic diastolic congestive heart failure: Stable, continue as above. CAD status post CABG: Monitor telemetry, continue home medication. Diabetes type 2insulin-dependent: ACH S Accu-Chek, sliding scale insulin. Pneumoperitonium: Has been worked up by GI and there was no concern for perforation. Pantoprazole dose to be continued. DVT PPX: Heparin. Code status: Full. Discharge Plan: Home.
[2021-08-08] MEDS: SODIUM CHLORIDE 1 GM TAB PO SCH (17:00)
--- NOTE | 2021-08-08 20:49 | PN ---
Date of Progress Note: 08/08/2021 Subjective: The patient is seen at the bedside. The patient has GI symptoms. The patient's EGD did show gastritis. She states that medications given to her since that time have somewhat improved her symptoms. She states that her p.o. intake is modestly improving. She did have peritoneal dialysis overnight with 1.5% solution. Objective: Vital Signs: Blood pressure is 105/49, pulse 78, afebrile. General: No acute distress. Heart: Regular rate and rhythm. No murmurs, rubs, or gallops. Lungs: Grossly clear. Abdomen: Soft. Extremities: No edema. Laboratory Data: H and H of 8.3/24. Serum chemistry; sodium is 132, potassium 3.9, chloride 96, CO2 of 23, BUN and creatinine of 53/9.9, glucose 156, calcium 7. Medications: Reviewed. Impression: 1.End-stage renal disease, on peritoneal dialysis. 2.Hypotension with orthostatic hypotension. 3.Hyponatremia. 4.Anemia. 5.Debility and weakness. 6.Chronic congestive heart failure. 7.Gastritis. Plan: The patient will continue peritoneal dialysis at the same concentration dialysate solution for 8 hours tonight. I have added thyroid and cortisol level as part of the patient's hyponatremia workup. We will start salt tablet 1 g b.i.d. I have also added the iron panel to assess the patient 's anemia. /JENSEN Voice ID: [id number] Report ID: [id number]
[2021-08-09 05:56] LABS: Thyroid Stimulating Hormone 5.48 uIU/mL (0.360-3.740)
[2021-08-09] MEDS: INSULIN -REGULAR HUMAN 50 UNIT/0.5 ML ML SQ SCH ×4 (07:30→21:00)
[2021-08-09] MEDS: PANTOPRAZOLE 40 MG INJ IVP SCH ×2 (08:59→21:07)
[2021-08-09] MEDS: MIDODRINE HCL 5 MG TABLET PO SCH ×3 (08:59→21:08)
[2021-08-09] MEDS: PIPER TAZO 3.375 GM in NA CHLORIDE 0.9% 100 ML IV SCH ×2 (08:59→21:07)
[2021-08-09] MEDS: SUCRALFATE 1 GM TABLET PO SCH ×5 (09:00→21:08)
[2021-08-09 09:10] LABS: Potassium 3.5 mmol/L (3.5-5.1)
[2021-08-09] MEDS: SODIUM CHLORIDE 1 GM TAB PO SCH ×3 (09:11→16:26)
[2021-08-09] MEDS: ONDANSETRON 4 MG/2 ML VIAL IV PRN ×2 (09:16→22:00)
[2021-08-09] MEDS: VITAMIN D 1000 UNIT TAB PO SCH (12:56)
--- NOTE | 2021-08-09 15:25 | P.PN ---
Subjective Date of Service: 08/09/21 Chief Complaint: Syncope, hypotension Subjective: No new changes, Improving Physical Examination - Vital Signs Temperature: 97.6 F Blood Pressure: 113/49 Pulse: 72 Respirations: 15 Pulse Ox (%): 100 - Physical Exam General: Alert, In no apparent distress HEENT: Atraumatic, Normocephalic Neck: Supple Respiratory: Normal air movement Cardiovascular: Regular rate/rhythm, Normal S1 S2 Gastrointestinal: Soft and benign Musculoskeletal: No swelling Neurological: Normal speech Assessment And Plan - Plan Syncope History of hypertension currently with hypotension Nausea and vomiting ESRD on PD/with HD cath Chronic diastolic congestive heart failure CAD status post CABG Diabetes type 2insulin-dependent Plan: Syncope: No repeat episode. We will follow closely. Cardiology following for management recommendations. History of hypertension currently with hypotension: Concerns for volume depletion noted. We will follow closely. Cardiology evaluating. Nausea and vomiting: Continues to have episode of nausea however she is stable. Will continue Zofran and as needed Phernegan for management. Sucralfate dose added. ESRD on PD/with HD cath: PD prescription as per nephrology. Chronic diastolic congestive heart failure: Stable, continue as above. CAD status post CABG: Monitor telemetry, continue home medication. Diabetes type 2insulin-dependent: ACH S Accu-Chek, sliding scale insulin. Pneumoperitonium: Has been worked up by GI and there was no concern for perforation. Pantoprazole dose to be continued for gastritis episode. DVT PPX: Heparin. Code status: Full. Discharge Plan: Home.
[2021-08-09] MEDS: CALCIUM CARBONATE 500 MG TAB PO SCH ×2 (16:26→21:08)
--- NOTE | 2021-08-09 19:47 | PN ---
Date of Progress Note: 08/09/2021 Subjective: The patient is seen at the bedside. No overnight events reported. The patient feels we ll. Denies any fevers, chills, chest pain, shortness of breath, nausea, vomiting, or diarrhea. Objective: Vital Signs: Blood pressure is 110/38, pulse 70, and afebrile. General: No acute distress. Heart: Regular rate and rhythm. No murmurs, rubs, gallops. Lungs: Grossly clear. Abdomen: Soft, nontender, nondistended. Extremities: No edema. Laboratory Data: Sodium 121, potassium 3.5, chloride 95, CO2 of 22, BUN 48, creatinine 9.28, glucose 134, calcium 6.9, corrected calcium is 8.3. Iron panel was reviewed. The patient is iron replete. The patient does have evidence of possible hypothyroidism with low free T4. Cortisol level was norm al. Impression: 1.End-stage renal disease, on peritoneal dialysis. 2.Hypotension with orthostatic hypotension status post IV fluids, unknown salt tablets. 3.Hyponatremia, likely depletion with possible hypothyroidism component. 4.Anemia. 5.Debility and weakness. 6.Chronic congestive heart failure. 7.Gastritis. Plan: The patient remains on liquid diet. The patient would benefit from having diet advanced so as to improve electrolyte balance. The patient does have low calcium level and vitamin D 2000 units da lyndon will be added. It should be noted that the patient's corrected calcium is 8.3 and does not requi re aggressive replenishment. Salt tablets have been increased. We will continue peritoneal dialysis at the current prescription. /JENSEN Voice ID: [id number] Report ID: [id number]
[2021-08-10 06:02] LABS: Potassium 3.7 mmol/L (3.5-5.1)
[2021-08-10 06:35] VITALS: BMI 33.3
[2021-08-10] MEDS: INSULIN -REGULAR HUMAN 50 UNIT/0.5 ML ML SQ SCH ×4 (07:30→20:11)
[2021-08-10] MEDS: VITAMIN D 1000 UNIT TAB PO SCH (08:31)
[2021-08-10] MEDS: PANTOPRAZOLE 40 MG INJ IVP SCH ×2 (08:31→20:32)
[2021-08-10] MEDS: PIPER TAZO 3.375 GM in NA CHLORIDE 0.9% 100 ML IV SCH ×2 (08:31→20:32)
[2021-08-10] MEDS: SUCRALFATE 1 GM TABLET PO SCH ×4 (08:31→20:31)
[2021-08-10] MEDS: SODIUM CHLORIDE 1 GM TAB PO SCH ×2 (08:32→17:05)
[2021-08-10] MEDS: CALCIUM CARBONATE 500 MG TAB PO SCH ×3 (08:32→20:31)
[2021-08-10] MEDS: MIDODRINE HCL 5 MG TABLET PO SCH ×3 (08:32→21:00)
--- NOTE | 2021-08-10 09:48 | P.PN ---
Date of Service: 08/10/21 Subjective Patient with persistent nausea and vomiting. Unknown etiology. Physical Examination - Vital Signs Reviewed - Physical Exam General: Alert, In no apparent distress Respiratory: Normal air movement Cardiovascular: Regular rate/rhythm, Normal S1 S2 Gastrointestinal: Soft and benign Musculoskeletal: No swelling Neurological: Normal speech Assessment And Plan Assessment Syncope History of hypertension currently with hypotension Nausea and vomiting ESRD on PD/with HD cath Chronic diastolic congestive heart failure CAD status post CABG Diabetes type 2insulin-dependent Plan: Syncope: No repeat episode. We will follow closely. Cardiology following for management recommendations. History of hypertension currently with hypotension: Concerns for volume depletion noted. We will follow closely. Cardiology evaluating. Nausea and vomiting: Continues to have episode of nausea however she is stable. Will continue Zofran and as needed Phernegan for management. Sucralfate dose added. ESRD on PD/with HD cath: PD prescription as per nephrology. Chronic diastolic congestive heart failure: Stable, continue as above. CAD status post CABG: Monitor telemetry, continue home medication. Diabetes type 2insulin-dependent: ACH S Accu-Chek, sliding scale insulin. Pneumoperitonium: Has been worked up by GI and there was no concern for perforation. Pantoprazole dose to be continued for gastritis episode. DVT PPX: Heparin. Code status: Full. Discharge Plan: Home.
[2021-08-10] MEDS ORDERED: METOCLOPRAMIDE 10 MG/2mL INJ IV SCH (10:00)
[2021-08-10 14:39] LABS: Urine Appearance Clear (Clear); Urine Bilirubin Negative (Negative); Urine Blood 1+ (Negative); Urine Color Yellow (Yellow); Urine Glucose Trace (Negative); Urine Protein 2+ (Negative); Urine Specific Gravity 1.015 (1.005-1.030); Urine Urobilinogen 0.2 mg/dL (0.2-1.0)
[2021-08-10 14:47] LABS: Urine Microscopic Reflex ORDER UMIC
[2021-08-10 14:50] LABS: Urine Bacteria <20 /HPF (<20); Urine RBC <5 /HPF (NONE SEEN)
[2021-08-11 06:47] LABS: Absolute Lymphocytes (CBC) 0.9 K/uL (0.7-4.9); Hematocrit 22.7 % (36.0-45.0); Lymphocytes % 18.2 % (15.3-44.8); MCV 88.6 fL (80-100); MPV 6.2 fL (7.6-11.3); RBC Red Blood Cell Count 2.56 M/uL (3.86-4.86)
[2021-08-11 07:14] LABS: ALT/SGPT < 10 U/L (12-78); AST/SGOT 7 U/L (15-37); Albumin 1.8 g/dL (3.4-5.0); Alkaline Phosphatase 62 U/L (45-117); BUN Blood Urea Nitrogen 40 mg/dL (7-18); Bicarbonate 24 mmol/L (21-32); Bilirubin Total 0.3 mg/dL (0.2-1.0); Glomerular Filtration Rate 4 ml/min (=/>90); Glucose Level 135 mg/dL (74-106); Lipase 310 U/L (73-393); Magnesium 1.6 mg/dL (1.8-2.4); Phosphorus 5.6 mg/dL (2.5-4.9); Potassium 3.6 mmol/L (3.5-5.1); Protein, Total 5.2 g/dL (6.4-8.2); Sodium Level 130 mmol/L (136-145)
[2021-08-11] MEDS: INSULIN -REGULAR HUMAN 50 UNIT/0.5 ML ML SQ SCH ×4 (07:30→21:00)
[2021-08-11] MEDS: PIPER TAZO 3.375 GM in NA CHLORIDE 0.9% 100 ML IV SCH ×2 (08:24→21:51)
[2021-08-11] MEDS: SUCRALFATE 1 GM TABLET PO SCH ×4 (08:25→21:50)
[2021-08-11] MEDS: VITAMIN D 1000 UNIT TAB PO SCH (08:25)
[2021-08-11] MEDS: PANTOPRAZOLE 40 MG INJ IVP SCH ×2 (08:25→21:51)
[2021-08-11] MEDS: CALCIUM CARBONATE 500 MG TAB PO SCH ×3 (08:25→21:50)
[2021-08-11] MEDS: MIDODRINE HCL 5 MG TABLET PO SCH ×3 (08:26→21:50)
--- NOTE | 2021-08-11 08:47 | RAD REPORT ---
EXAM DESCRIPTION: US - Abdomen Exam Complete - 08/11/2021 5:51 am CLINICAL HISTORY: Abdominal pain. Intractable nausea and vomiting COMPARISON: No comparisons FINDINGS: The liver parenchyma is heterogenous in coarsened. No focal liver lesions or intrahepatic biliary dilatation is seen. Echogenic material is present within the gallbladder likely sludge and small stones. Common bile abi t is normal in caliber measuring 4 mm. Cortical thinning is seen involving both kidneys. The kidneys are mildly atrophic. No hydronephrosis, focal lesion of concern or perinephric fluid. The spleen is normal in size measuring 8 centimeters. The pancreas and aorta are obscured by bowel gas. The visualized aspects of the IVC are grossly normal. Trace free fluid is seen in the abdomen. IMPRESSION: Coarsened liver parenchyma suggests chronic inflammation or mild fatty infiltration. Sludge/stones present in gallbladder without cholecystitis findings. Atrophic kidneys with cortical thinning bilaterally.
[2021-08-11] MEDS ORDERED: MAGNESIUM SULFATE 1 gm IVPB 1 GM/100 ML BAG IV ONE (10:17)
[2021-08-11] MEDS: SODIUM CHLORIDE 1 GM TAB PO SCH ×2 (11:13→16:12)
--- NOTE | 2021-08-11 19:04 | P.PN ---
Date of Service: 08/10/21 Vital Signs Temp Pulse Resp BP Pulse Ox 96.8 F 66 18 182/63 H 99 08/11/21 16:00 08/11/21 16:00 08/11/21 16:00 08/11/21 16:00 08/11/21 16:00 Medications Calcium Carbonate/Glycine (Calcium Carbonate 500 Mg Tab) 1,000 mg PO TID [facility] Last Admin: 08/11/21 16:12 Dose: 1,000 mg Documented by: Cholecalciferol (Vitamin D 1000 Unit Tab) 2,000 unit PO DAILY [facility] Last Admin: 08/11/21 08:25 Dose: 2,000 unit Documented by: Piperacillin Sod/Tazobactam (Sod 3.375 gm/ Sodium Chloride) 100 mls @ 25 mls/hr IV Q12HR [facility]; Protocol Last Admin: 08/11/21 08:24 Dose: 100 mls Documented by: Sodium Chloride (Sodium Chloride) 250 mls @ 999 mls/hr IV Q15M PRN PRN Reason: HYPOTENSION Last Admin: 08/06/21 06:43 Dose: 250 mls Documented by: Insulin Human Regular (Insulin -Regular Human 50 Unit/0.5 Ml Ml) 0 unit SQ ACHS [facility]; Protocol Last Admin: 08/11/21 07:30 Dose: Not Given Documented by: Midodrine (Midodrine Hcl 5 Mg Tablet) 10 mg PO TID [facility] Last Admin: 08/11/21 14:00 Dose: Not Given Documented by: Ondansetron HCl (Ondansetron 4 Mg/2 Ml Vial) 4 mg IV Q6HP PRN PRN Reason: NAUSEA / VOMITING Last Admin: 08/09/21 22:00 Dose: 4 mg Documented by: Pantoprazole Sodium (Pantoprazole 40 Mg Inj) 40 mg IVP Q12HR [facility]; Protocol Last Admin: 08/11/21 08:25 Dose: 40 mg Documented by: Promethazine HCl (Promethazine Inj 25 Mg/Ml Amp) 12.5 mg IV Q6H PRN PRN Reason: NAUSEA / VOMITING Sodium Chloride (Flush Normal Saline 10 Ml) 10 ml IV BID [facility] Last Admin: 08/11/21 08:27 Dose: 10 ml Documented by: Sodium Chloride (Sodium Chloride 0.9% 10ml Inj) 10 ml IV UD PRN PRN Reason: Diluant Sodium Chloride (Sodium Chloride 1 Gm Tab) 2 gm PO BIDWM [facility] Last Admin: 08/11/21 16:12 Dose: 2 gm Documented by: Sucralfate (Sucralfate 1 Gm Tablet) 1 gm PO ACHS [facility] Last Admin: 08/11/21 16:15 Dose: 1 gm Documented by: Microbiology Results 08/05/21 17:07 Stool Occult Blood - Final Assessment/ Plan: Nephrology No dyspnea No chest pain Dizziness and weakness. No acute events overnight Vitals, medications, blood work and imaging reviewed in the chart. NAD. NCAT. MMM. Neck supple. Normal respiratory effort. RRR. Abd ND. No C/C/E. No rash. AAO. Normal speech. ESRD Proteinuria -Continue PD Hyponatremia -Continue NaCl Hypomagnesemia -Replete prn Hypotension -Continue Midodrine DM II with CKD -RISS Severe malnutrition Hypoalbuminemia -Encourage nutrition Anemia in CKD -Start Retacrit TIW CKD MBD -Continue Vitamin D -Continue Calcium TID
--- NOTE | 2021-08-11 19:08 | P.PN ---
Date of Service: 08/11/21 Vital Signs Temp Pulse Resp BP Pulse Ox 96.8 F 66 18 182/63 H 99 08/11/21 16:00 08/11/21 16:00 08/11/21 16:00 08/11/21 16:00 08/11/21 16:00 Medications Calcitriol (Calcitrol 0.25 Mcg Cap) 0.5 mcg PO DAILY [facility] Calcium Carbonate/Glycine (Calcium Carbonate 500 Mg Tab) 1,000 mg PO TID [facility] Last Admin: 08/11/21 16:12 Dose: 1,000 mg Documented by: Cholecalciferol (Vitamin D 1000 Unit Tab) 2,000 unit PO DAILY [facility] Last Admin: 08/11/21 08:25 Dose: 2,000 unit Documented by: Enteral Nutritional Formula (Nepro Shake 237 Ml Can) 240 ml PO TID [facility] Epoetin Carlos (Epoetin Carlos 10,000 Unit/Ml Vial) 10,000 unit SQ M,W,F [facility] Piperacillin Sod/Tazobactam (Sod 3.375 gm/ Sodium Chloride) 100 mls @ 25 mls/hr IV Q12HR [facility]; Protocol Last Admin: 08/11/21 08:24 Dose: 100 mls Documented by: Sodium Chloride (Sodium Chloride) 250 mls @ 999 mls/hr IV Q15M PRN PRN Reason: HYPOTENSION Last Admin: 08/06/21 06:43 Dose: 250 mls Documented by: Insulin Human Regular (Insulin -Regular Human 50 Unit/0.5 Ml Ml) 0 unit SQ ACHS [facility]; Protocol Last Admin: 08/11/21 07:30 Dose: Not Given Documented by: Midodrine (Midodrine Hcl 5 Mg Tablet) 10 mg PO TID [facility] Last Admin: 08/11/21 14:00 Dose: Not Given Documented by: Ondansetron HCl (Ondansetron 4 Mg/2 Ml Vial) 4 mg IV Q6HP PRN PRN Reason: NAUSEA / VOMITING Last Admin: 08/09/21 22:00 Dose: 4 mg Documented by: Pantoprazole Sodium (Pantoprazole 40 Mg Inj) 40 mg IVP Q12HR [facility]; Protocol Last Admin: 08/11/21 08:25 Dose: 40 mg Documented by: Promethazine HCl (Promethazine Inj 25 Mg/Ml Amp) 12.5 mg IV Q6H PRN PRN Reason: NAUSEA / VOMITING Sodium Chloride (Flush Normal Saline 10 Ml) 10 ml IV BID [facility] Last Admin: 08/11/21 08:27 Dose: 10 ml Documented by: Sodium Chloride (Sodium Chloride 0.9% 10ml Inj) 10 ml IV UD PRN PRN Reason: Diluant Sodium Chloride (Sodium Chloride 1 Gm Tab) 2 gm PO BIDWM [facility] Last Admin: 08/11/21 16:12 Dose: 2 gm Documented by: Sucralfate (Sucralfate 1 Gm Tablet) 1 gm PO ACHS [facility] Last Admin: 08/11/21 16:15 Dose: 1 gm Documented by: Vitamin B Complex/Vit C/Folic Acid (Multivitamins,Therapeut 1 Tab) 1 tab PO DAILY [facility] Microbiology Results 08/05/21 17:07 Stool Occult Blood - Final Assessment/ Plan: Nephrology No dyspnea No chest pain Dizziness and weakness. No acute events overnight Vitals, medications, blood work and imaging reviewed in the chart. NAD. NCAT. MMM. Neck supple. Normal respiratory effort. RRR. Abd ND. No C/C/E. No rash. AAO. Normal speech. ESRD Proteinuria -Continue PD Hyponatremia -Continue NaCl Hypomagnesemia -Replete prn Hypotension -Continue Midodrine DM II with CKD -RISS Severe malnutrition Hypoalbuminemia -Encourage nutrition Anemia in CKD -Continue Retacrit TIW CKD MBD -Continue Vitamin D -Continue Calcium TID
[2021-08-11] MEDS: NEPRO SHAKE 237 ML CAN PO SCH (21:00)
[2021-08-12] MEDS: INSULIN -REGULAR HUMAN 50 UNIT/0.5 ML ML SQ SCH ×2 (07:30→11:30)
--- NOTE | 2021-08-12 07:44 | P.PN ---
Date of Service: 08/12/21 Vital Signs Temp Pulse Resp BP Pulse Ox 97.9 F 87 17 119/58 L 99 08/12/21 04:00 08/12/21 04:00 08/12/21 04:00 08/12/21 04:00 08/12/21 04:00 Medications Calcitriol (Calcitrol 0.25 Mcg Cap) 0.5 mcg PO DAILY [facility] Calcium Carbonate/Glycine (Calcium Carbonate 500 Mg Tab) 1,000 mg PO TID [facility] Last Admin: 08/11/21 21:50 Dose: 1,000 mg Documented by: Cholecalciferol (Vitamin D 1000 Unit Tab) 2,000 unit PO DAILY [facility] Last Admin: 08/11/21 08:25 Dose: 2,000 unit Documented by: Enteral Nutritional Formula (Nepro Shake 237 Ml Can) 237 ml PO TID [facility] Last Admin: 08/11/21 21:00 Dose: Not Given Documented by: Epoetin Carlos (Epoetin Carlos 10,000 Unit/Ml Vial) 10,000 unit SQ M,W,F [facility] Piperacillin Sod/Tazobactam (Sod 3.375 gm/ Sodium Chloride) 100 mls @ 25 mls/hr IV Q12HR [facility]; Protocol Last Admin: 08/11/21 21:51 Dose: 100 mls Documented by: Sodium Chloride (Sodium Chloride) 250 mls @ 999 mls/hr IV Q15M PRN PRN Reason: HYPOTENSION Last Admin: 08/06/21 06:43 Dose: 250 mls Documented by: Insulin Human Regular (Insulin -Regular Human 50 Unit/0.5 Ml Ml) 0 unit SQ ACHS [facility]; Protocol Last Admin: 08/11/21 21:00 Dose: Not Given Documented by: Midodrine (Midodrine Hcl 5 Mg Tablet) 10 mg PO TID [facility] Last Admin: 08/11/21 21:50 Dose: 10 mg Documented by: Ondansetron HCl (Ondansetron 4 Mg/2 Ml Vial) 4 mg IV Q6HP PRN PRN Reason: NAUSEA / VOMITING Last Admin: 08/09/21 22:00 Dose: 4 mg Documented by: Pantoprazole Sodium (Pantoprazole 40 Mg Inj) 40 mg IVP Q12HR [facility]; Protocol Last Admin: 08/11/21 21:51 Dose: 40 mg Documented by: Promethazine HCl (Promethazine Inj 25 Mg/Ml Amp) 12.5 mg IV Q6H PRN PRN Reason: NAUSEA / VOMITING Sodium Chloride (Flush Normal Saline 10 Ml) 10 ml IV BID [facility] Last Admin: 08/11/21 21:51 Dose: 10 ml Documented by: Sodium Chloride (Sodium Chloride 0.9% 10ml Inj) 10 ml IV UD PRN PRN Reason: Diluant Sodium Chloride (Sodium Chloride 1 Gm Tab) 2 gm PO BIDWM [facility] Last Admin: 08/11/21 16:12 Dose: 2 gm Documented by: Sucralfate (Sucralfate 1 Gm Tablet) 1 gm PO ACHS [facility] Last Admin: 08/11/21 21:50 Dose: 1 gm Documented by: Vitamin B Complex/Vit C/Folic Acid (Multivitamins,Therapeut 1 Tab) 1 tab PO DAILY [facility] Microbiology Results 08/05/21 17:07 Stool Occult Blood - Final Assessment/ Plan: Nephrology No dyspnea No chest pain Did not sleep well overnight No acute events overnight Vitals, medications, blood work and imaging reviewed in the chart. NAD. NCAT. MMM. Neck supple. Normal respiratory effort. RRR. Abd ND. No C/C/E. No rash. AAO. Normal speech. ESRD Proteinuria -Continue PD Hyponatremia -Continue NaCl Hypomagnesemia -Replete prn Hypotension -Continue Midodrine DM II with CKD -RISS Severe malnutrition Hypoalbuminemia -Encourage nutrition Anemia in CKD -Continue Retacrit TIW CKD MBD -Continue Vitamin D -Continue Calcium TID
[2021-08-12] MEDS ORDERED: CALCITROL 0.25 MCG CAP PO SCH (09:00)
[2021-08-12] MEDS ORDERED: MULTIVITAMINS,THERAPEUT 1 TAB PO SCH (09:00)
[2021-08-12] MEDS: NEPRO SHAKE 237 ML CAN PO SCH ×3 (09:05→14:08)
[2021-08-12] MEDS: PIPER TAZO 3.375 GM in NA CHLORIDE 0.9% 100 ML IV SCH (09:09)
[2021-08-12] MEDS: PANTOPRAZOLE 40 MG INJ IVP SCH (09:09)
[2021-08-12] MEDS: CALCIUM CARBONATE 500 MG TAB PO SCH ×2 (09:10→14:04)
[2021-08-12] MEDS: SODIUM CHLORIDE 1 GM TAB PO SCH (09:10)
[2021-08-12] MEDS: MIDODRINE HCL 5 MG TABLET PO SCH ×2 (09:10→14:04)
[2021-08-12] MEDS: SUCRALFATE 1 GM TABLET PO SCH ×2 (09:11→12:03)
[2021-08-12] MEDS: VITAMIN D 1000 UNIT TAB PO SCH (09:13)
[2021-08-12 11:23] VITALS: O2SAT 100
[2021-08-12 12:02] VITALS: BP 112/60; TEMP 97.5
--- NOTE | 2021-08-12 12:23 | P.PN ---
Date of Service: 08/11/21 Subjective Continues to improve. Clinical symptoms are much better. 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 No other complaints. History of hypertension currently with hypotension: Symptoms are much better. Blood pressure improved Nausea and vomiting: Nausea/vomiting has improved. Advancing diet as tolerated. ESRD on PD/with HD cath: PD prescription as per nephrology. Chronic diastolic congestive heart failure: Stable, continue as above. CAD status post CABG: Monitor telemetry, continue home medication. Diabetes type 2insulin-dependent: ACH S Accu-Chek, sliding scale insulin. Pneumoperitonium: No abnormalities noted-stable; GI does not recommend any further work-up. DVT PPX: Heparin. Code status: Full. Discharge Plan: Home.
[2021-08-12] MEDS ORDERED: EPOETIN ALFA 10,000 UNIT/ML VIAL SQ SCH (17:00)
== END 2021-08-12 14:00 | disposition home or self-care (01) | DRG 391 ==
LOC: ER 16:08 → ERHOLD 19:09 → 3RD-ICU 08-06 00:43 → OBSVTOIN 08-06 10:59 → 2ND 08-10 18:13
PROVIDERS: ADMIT Internal Medicine Nephrology; ATTEND Internal Medicine Nephrology
PROC: 0DB68ZX Excision of Stomach, Via Natural or Artificial Opening Endoscopic, Diagnostic (ICD-10-PCS; 2021-08-06)
PROC: 0DB58ZX Excision of Esophagus, Via Natural or Artificial Opening Endoscopic, Diagnostic (ICD-10-PCS; 2021-08-06)
PROC: 0DB98ZX Excision of Duodenum, Via Natural or Artificial Opening Endoscopic, Diagnostic (ICD-10-PCS; principal; 2021-08-06 14:30)
DX: K29.70 Gastritis, unspecified, without bleeding (principal); N18.6 End stage renal disease; E43 Unspecified severe protein-calorie malnutrition; I50.32 Chronic diastolic (congestive) heart failure; E87.1 Hypo-osmolality and hyponatremia; I25.10 Atherosclerotic heart disease of native coronary artery without angina pectoris; K29.80 Duodenitis without bleeding; E11.22 Type 2 diabetes mellitus with diabetic chronic kidney disease; E83.42 Hypomagnesemia; Z68.33 Body mass index [BMI] 33.0-33.9, adult; E88.09 Other disorders of plasma-protein metabolism, not elsewhere classified; D63.1 Anemia in chronic kidney disease; K66.8 Other specified disorders of peritoneum; R62.7 Adult failure to thrive; R53.81 Other malaise; K44.9 Diaphragmatic hernia without obstruction or gangrene; E86.9 Volume depletion, unspecified; I95.1 Orthostatic hypotension; Z99.2 Dependence on renal dialysis; Z95.1 Presence of aortocoronary bypass graft; Z79.4 Long term (current) use of insulin; Z86.79 Personal history of other diseases of the circulatory system; Z20.822 Contact with and (suspected) exposure to COVID-19; Z95.0 Presence of cardiac pacemaker; Z86.73 Personal history of transient ischemic attack (TIA), and cerebral infarction without residual deficits
CPT/HCPCS: 36415; 71045; 74176; 76700; 80048; 80053; 81003; 81015; 82272; 82306; 82330; 82533; 82728; 82947; 83540; 83605; 83690; 83735; 83880; 83970; 84100; 84145; 84439; 84443; 84466; 84484; 85025; 87086; 87088; 87324; 87449; 88305; 88312; 93005; 93306; 96361; 96365; 96366; 96368; 96375; 97110; 97161; 97530; 99285; C9113; G0378; J1815; J2250; J2405; J2543; J2704; J2765; J3475; J7030; J7040; J7050; U0003

== ENCOUNTER 2021-10-05 09:55 | Day surgery (SDC) | payer MEDICARE, OTHER ==
[2021-10-02 15:11] LABS: Potassium 3.1 mmol/L (3.5-5.1)
[2021-10-02 15:11] LABS: SARS-CoV-2 Antigen Rapid Res Negative (Negative)
[2021-10-05] MEDS ORDERED: NA CHLORIDE 0.9% 1,000 ML ONE (10:06)
[2021-10-05] MEDS ORDERED: CEFAZOLIN SODIUM 1 GM/VIAL ONE (10:06)
[2021-10-05 10:29] VITALS: O2SAT 100
[2021-10-05] MEDS ORDERED: LIDOCAINE 1% W/EPI 1:100,000 10 ML VIAL ONE (11:12)
[2021-10-05] MEDS ORDERED: propofoL 200 MG/20 ML VIAL IV ONE (11:30)
[2021-10-05] MEDS ORDERED: LIDOCAINE 1% MPF 5 ML VIAL ONE (11:30)
--- NOTE | 2021-10-05 12:11 | P.OP ---
Preoperative diagnosis: Attention to HD catheter Postoperative diagnosis: Attention to HD catheter Primary procedure: Removal of RIGHT chest HD catheter Anesthesia: Mac + Local Estimated blood loss: <2cc Specimen: catheter for culture Findings: small collection around catheter Complications: None Transferred to: Recovery Room Condition: Good
[2021-10-05 13:08] VITALS: BP 100/54; TEMP 97.9
--- NOTE | 2021-10-05 23:00 | OP ---
Date of Procedure: 10/05/2021 Surgeon: Edgar Brito MD, Preoperative Diagnosis: Attention to right chest hemodialysis catheter. Postoperative Diagnosis: Attention to right chest hemodialysis catheter. Procedure Performed: Removal of right subclavian chest hemodialysis catheter. Anesthesia: MAC plus local with 0.25% Marcaine. Estimated Blood Loss: Less than 2 cc. Specimen: Catheter sent for culture. Findings: Small collection in right catheter. Complications: None. Disposition: Patient was transferred to recovery room in good condition. Procedure In Detail: After informed consent was obtained, patient was brought to the operating room, prepped and draped in the usual sterile fashion. After adequate anesthesia was achieved, patient wa s placed in steep Trendelenburg position. I then removed the sutures attaching the catheter to the c hest wall and then subsequently dilated the tract to bring the cuff into view. I then performed a co mbination of blunt and Metzenbaum dissection to bring the cuff into visualized field. A small amount of fluid, which had a murky appearance was appreciated at this point. I then removed the catheter w hile holding the patient in steep Trendelenburg position and applying pressure at the insertion site at the exit site. The catheter was removed and sent off for culture and ID at this point. I then ir rigated the tract, the insertion site completely with irrigation and closed it with interrupted 2-0 n ylon sutures and a sterile dressing was placed over the top. Patient was then taken out of Trendelen robbie position and pressure continued to be held for another 2 minutes after patient was in head up po sition with sterile dressings in place. No collections, no hematoma, no bleeding was appreciated thr oughout the procedure. All counts were correct at the end of the case. ALVAREZ/JENSEN Voice ID: [id number] Report ID: [id number]
== END 2021-10-05 13:14 | disposition home or self-care (01) ==
LOC: OR 09:55
PROVIDERS: ATTEND Surgery
PROC: 0WPG03Z Removal of Infusion Device from Peritoneal Cavity, Open Approach (ICD-10-PCS; principal; 2021-10-05 11:30)
DX: Z45.2 Encounter for adjustment and management of vascular access device (principal); E11.22 Type 2 diabetes mellitus with diabetic chronic kidney disease; I13.2 Hypertensive heart and chronic kidney disease with heart failure and with stage 5 chronic kidney disease, or end stage renal disease; I50.9 Heart failure, unspecified; N18.6 End stage renal disease; Z99.2 Dependence on renal dialysis; Z20.822 Contact with and (suspected) exposure to COVID-19
CPT/HCPCS: 36590; 80048; 36415; 82947; 88300; 87811; J2704; J7030; J0690

== ENCOUNTER 2022-02-15 12:28 | Inpatient (IN) | payer OTHER ==
--- OUTSIDE RECORDS SUMMARY | 2022-02-15 12:41 | XMS REPORT | Continuity of Care Document ---
:1940 Author Organization [facility] t Address [address] [place] [address] Care Team Providers Name Role Phone RUTH UP Primary Care Physician UnavailGeneva Mahajan Attending Clinician Unavailable Ruth Up Attending Clinician [phone] Will Corona MD Attending Clinician WILL CORONA Attending Clinician Unavailable Jean-Pierre INMAN, Dwain Montoya Attending Clinician Jaqui JAIMES, Radha Attending Clinician Unavailable Jackie INMAN, Sumit Curiel Attending Clinician Forest Mcmahon MD Attending Clinician Rosario Nolan MD Attending Clinician [phone] Pedrito Espinoza CRNA. Attending Clinician MD FOREST MCMAHON Attending Clinician Unavailable Dung MCCULLOUGH, Neelima Roman Attending Clinician Pauly INMAN, Aston Attending Clinician Abdiaziz RN, Norma Attending Clinician Unavailable Jl JAIMES, Carmelina Finnegan Attending Clinician Unavailable MD DWAIN MOREJON Attending Clinician Unavailable Shelia Mccarthy MA Attending Clinician Unavailable Xavier JAIMES, Ana Maria Jacobs Attending Clinician Unavailable LIZZY CASTANEDA Attending Clinician Unavailable An INMAN, Norman Coughlin Attending Clinician Ritu INMAN, Janak Mcclellan Attending Clinician MD JANAK SKINNER Attending Clinician Unavailable Chantal INMAN, Demarcus Ottoniel Attending Clinician Maria Luz INMAN, Manuela Finnegan Attending Clinician [phone] Jayant Arambula MD Attending Clinician Papi INMAN, Irma Hester Attending Clinician MARTITA BETTS Attending Clinician Unavailable WILL CORONA Admitting Clinician Unavailable SUMIT MEJIA Admitting Clinician Unavailable MD SUMIT MEJIA Admitting Clinician Unavailable MD DWAIN MOREJON Admitting Clinician Unavailable JANAK SKINNER Admitting Clinician Unavailable MD JANAK SKINNER Admitting Clinician Unavailable MARTITA BETTS Admitting Clinician Unavailable Payers Payer Name Policy Type Policy Number Effective Date Expiration Date Jayla hammer [facility] 53 [id number] 2021 [facility] ADVANTAGE 00:00:[address] [facility] Problems Condition Condition Condition Status Onset Resolution Last Treating Co mments Source Name Details Category Date Date Treatment Clinician Date ESRD on ESRD on Disease Active 2021-[address] [facility] peritoneal peritoneal 0- Sanam kes dialysis dialysis 00:00: Medica l 00 Center Hypotensio Hypotensio Disease Active 2021-[address] n n 0- kes 00:00: Medical 00 Center COVID-19 COVID-19 Disease Active Metho di virus virus 03-27 st detected detected 00:00: Hospit a 00 l 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 Added automatic ally from request for surgery [id number] Unstable Unstable Disease Active 2020-02 Overview: Me thodi angina angina 2-[address] pectoris pectoris 00:00: g of this Hos jimena 00 note l might be different from the original. Added automatic ally from request for surgery [id number] Ischemic Ischemic Disease Active 2020-02 Overview: Me meaghanodi cardiomyop cardiomyop 2-[address] athy athy 00:00: g of this Hospita 00 note l might be different from the original. 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 03:02:19 l manifestat manifestat He rmann ions, type ions, type II or II or unspecifie unspecifie d type, d type, uncontroll uncontroll ed ed Active Problem 01/30/2015 [facility] Diabetes Diabetes Problem Active 2015-01-30 Memoria mellitus mellitus 03:02:19 l without without Preet mention of mention of complicati complicati on, type on, type II or II or unspecifie unspecifie d type, d type, not stated not stated as as uncontroll uncontroll ed ed Active Problem 01/30/2015 [facility] DM II [facility] DM II [facility] Problem Active 2015-01-30 Memoria Active 03:02:19 l Problem [place] 01/30/2015 [facility] TRANSIENT TRANSIENT Problem Active 2015-01-30 Memoria ISCHEMIC ISCHEMIC 03:02:19 l ATTACK(TIA ATTACK(TIA He rmann ) ) Active Problem 01/30/2015 [facility] HYPERTENSI HYPERTENS Problem Active 2015-01-30 Memoria ON ION Active 03:02:19 l Problem Preet 01/30/2015 [facility] HYPERLIPID HYPERLIPI Problem Active 2015-01-30 Memoria EMIA DEMIA 03:02:19 l Active Preet Problem 01/30/2015 [facility] 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 Memor ia hyperlipid hyperlipid 03:02:19 l emia maria t [place] Active Problem 01/30/2015 [facility] Diabetes Diabetes Problem Active 2015-01-30 Memoria mellitus mellitus 03:02:19 l without without Preet mention of mention of complicati complicati on, type I on, type I [juvenile [juvenile type], not type], not stated as stated as uncontroll uncontroll ed ed Active Problem 01/30/2015 [facility] Body Mass Body Mass Diagnosis Active 2014-06-12 Memoria Index Index 02:03:24 l 34.0-34.9, 34.0-34.9, He rmann adult adult Active Diagnosis 06/12/2014 [facility] Dysuria Dysuria Diagnosis Active 2014-06-12 Memoria Active 02:02:48 l Diagnosis Preet 06/12/2014 [facility] pre-operat Diagnosis Active 2014-06-12 Memoria david pre-operat 02:00:19 l examinatio david Torin n n examinatio n Active Diagnosis 06/12/2014 [facility] Unspecifie Unspecifi Diagnosis Active 2014-06-12 Memoria d cataract ed 02:00:19 l cataract Preet Active Diagnosis 06/12/2014 [facility] DM renal DM renal Problem Active 2015-01-30 Memoria manif type manif type 03:02:19 l II II Active Preet Problem 01/30/2015 [facility] CVA CVA Problem Active 2015-01-30 Memor ia (cerebral (cerebral 03:02:19 l vascular vascular Toirn n accident) accident) Active Problem 01/30/2015 [facility] Dizziness Dizziness Diagnosis Active 2014-06-12 Memoria and and 02:03:24 l giddiness giddiness Herm los Active Diagnosis 06/12/2014 [facility] [id number] Functional Problem Com mon incontinen [facility] - [facility] [id number] 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 - [facility]I involving [place] [facility] coronary [facility] artery of Center [place] heart without angina pectoris [id number] 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 - [facility] [id number] long term Problem Com mon (current) Spirit use of - CHI insulin [facility] [id number] Peritoneal Problem Co mmon dialysis Spirit catheter - [facility] in place [facility] [id number] Mixed Problem Common hyperlipid Spirit emia - [facility] [id number] Wheelchair Problem Co mmon bound Spirit - CH[facility] [id number] 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 - [facility] [id number] 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 [facility] failure Center [id number] Hypertensi Problem C ommon [id number] ve heart Spirit and - CHI chronic kidney [facility] disease Medical with heart Center failure and with stage 5 chronic kidney disease, or end stage renal disease [id number] 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 [id number] End stage Problem Com mon renal Spirit disease - [facility] Allergies, Adverse Reactions, Alerts Allergy Allergy Status Severity Reaction(s) Onset Inactive Treating Comm ents Source Name Type Date Date Clinician NO KNOWN Allergy Active [facility] ALLERGIE S Family History Family Member Diagnosis Comments Start Date Stop Date Source Natural father Heart disease [facility] Natural mother Cancer [facility] Social History Social Habit Start Date Stop Date Quantity Comments Source Exposure to Not sure [facility] SARS-CoV-2 [facility] (event) History of [facility] - Tobacco Use [facility] Alcohol intake 2021-06-02 2021-06-02 Current [facility] 00:00:00 00:00:00 non-drinker of Hospital alcohol (finding) Tobacco use and 2021-02-19 2021-02-19 Smokeless tobacco Me [facility] exposure 00:00:00 00:00:00 non-user Hospital Alliepakennedy? 2015-01-20 2015-01-20 [facility] 00:00:00 00:00:00 Sex Ass[birth year] [facility] 00:00:00 00:00:00 Medical Center Smoking Status Start Date Stop Date Source Never Smoker [facility] Ex-smoker 2021-02-19 00:00:00 2021-02-19 00:00:00 [facility] Medications Ordered Filled Start Stop Current Ordering Indication Dosage Frequency Signature Comments Components Source Medication Medication Date Date Medication? Clinician (SIG) Name Name clopidogrel 2021-02 Yes 75mg QD Take [address] (PLAVIX) 75 1-07 by mouth Luke s mg tablet 11:50: daily. Medica l 11 Dora insulin 2021-02 Yes QD Inject [facility] glargine 1-07 [facility] (LANTUS) 11:50: usly Medical 100 unit/mL 11 nightly Cente r injection Use as directed . aspirin 81 2021-02 Yes 81mg QD Take [address] MG EC 1-07 by mouth [facility] tablet 11:50: daily. [address] lisinopril 2021-02 Yes 20mg QD Take [address] (PRINIVIL,Z 1-07 by mouth Luke s ESTRIL) 20 11:50: daily. Medic al MG tablet 11 Dora cloNIDine 2021-02 Yes .1mg Q.5D Take 0.[address] HCl 1-07 mg by [facility] (CATAPRES) 11:50: mouth 2 Medi gabbi 0.1 MG 11 (two) Dora tablet times daily. atorvastati 2021-02 Yes 20mg QD Take [address] n (LIPITOR) 1-07 by mouth Luke s 20 MG 11:50: daily. Medical tablet 11 Dora fenofibrate 2021-02 Yes 160mg QD Take [address] (TRIGLIDE,L 1-07 mg by [facility] OFIBRA) 160 11:50: mouth Medic al MG tablet 11 daily. Dora clopidogrel 2021-02 Yes 75mg QD Take [address] (PLAVIX) 75 0-02 by mouth Luke s mg tablet 02:33: daily. Medica l 50 Dora insulin 2021-02 Yes QD Inject [facility] glargine 0-02 [facility] (LANTUS) 02:33: usly Medical 100 unit/mL 50 nightly Cente r injection Use as directed . aspirin 81 2021-02 Yes 81mg QD Take [address] MG EC 0-02 by mouth [facility] tablet 02:33: daily. [address] lisinopril 2021-02 Yes 20mg QD Take [address] (PRINIVIL,Z 0-02 by mouth Luke s ESTRIL) 20 02:33: daily. Medic al MG tablet 50 Dora cloNIDine 2021-02 Yes .1mg Q.5D Take 0.[address] HCl 0-02 mg by [facility] (CATAPRES) 02:33: mouth 2 Medi gabbi 0.1 MG 50 (two) Center tablet times daily. atorvastati 2021-02 Yes 20mg QD Take [address] n (LIPITOR) 0-02 by mouth Luke s 20 MG 02:33: daily. Medical tablet 50 Dora fenofibrate 2021-02 Yes 160mg QD Take [address] (TRIGLIDE,L 0-02 mg by [facility] OFIBRA) 160 02:33: mouth Medic al MG tablet 50 daily. Dora clopidogrel 2021-02 Yes 75mg QD Take [address] (PLAVIX) 75 0-02 by mouth Luke s mg tablet 02:33: daily. Medica l 50 Dora insulin 2021-02 Yes QD Inject [facility] glargine 0-02 [facility] (LANTUS) 02:33: usly Medical 100 unit/mL 50 nightly Cente r injection Use as directed . aspirin 81 2021-02 Yes 81mg QD Take [address] MG EC 0-02 by mouth [facility] tablet 02:33: daily. [address] lisinopril 2021-02 Yes 20mg QD Take [address] (PRINIVIL,Z 0-02 by mouth Luke s ESTRIL) 20 02:33: daily. Medic al MG tablet 50 Dora cloNIDine 2021-02 Yes .1mg Q.5D Take 0.[address] HCl 0-02 mg by [facility]ukes (CATAPRES) 02:33: mouth 2 Medi gabbi 0.1 MG 50 (two) Center tablet times daily. atorvastati 2021-02 Yes 20mg QD Take [address] n (LIPITOR) 0-02 by mouth Luke s 20 MG 02:33: daily. Medical tablet 50 Dora fenofibrate 2021-02 Yes 160mg QD Take [address] (TRIGLIDE,L 0-02 mg by [facility] OFIBRA) 160 02:33: mouth Medic al MG tablet 50 daily. Dora clopidogrel 2021-02 Yes 75mg QD Take [address] (PLAVIX) 75 0-02 by mouth Luke s mg tablet 02:33: daily. Medica l 50 Dora insulin 2021-02 Yes QD Inject [facility] glargine 0-02 [facility] (LANTUS) 02:33: usly Medical 100 unit/mL 50 nightly Cente r injection Use as directed . aspirin 81 2021-02 Yes 81mg QD Take [address] MG EC 0-02 by mouth [facility] tablet 02:33: daily. [address] lisinopril 2021-02 Yes 20mg QD Take [address] (PRINIVIL,Z 0-02 by mouth Luke s ESTRIL) 20 02:33: daily. Medic al MG tablet 50 Dora cloNIDine 2021-02 Yes .1mg Q.5D Take 0.[address] HCl 0-02 mg by [facility] (CATAPRES) 02:33: mouth 2 Medi gabbi 0.1 MG 50 (two) Dora tablet times daily. atorvastati 2021-02 Yes 20mg QD Take [address] n (LIPITOR) 0-02 by mouth Luke s 20 MG 02:33: daily. Medical tablet 50 Dora fenofibrate 2021-02 Yes 160mg QD Take [address] (TRIGLIDE,L 0-02 mg by [facility] OFIBRA) 160 02:33: mouth Medic al MG tablet 50 daily. Dora clopidogrel 2021-02 Yes 75mg QD Take [address] (PLAVIX) 75 0-02 by mouth Luke s mg tablet 02:33: daily. Medica l 50 Dora insulin 2021-02 Yes QD Inject [facility] glargine 0-02 [facility] (LANTUS) 02:33: usly Medical 100 unit/mL 50 nightly Cente r injection Use as directed . aspirin 81 2021-02 Yes 81mg QD Take [address] MG EC 0-02 by mouth [facility] tablet 02:33: daily. [address] lisinopril 2021-02 Yes 20mg QD Take [address] (PRINIVIL,Z 0-02 by mouth Luke s ESTRIL) 20 02:33: daily. Medic al MG tablet 50 Dora cloNIDine 2021-02 Yes .1mg Q.5D Take 0.[address] HCl 0-02 mg by [facility] (CATAPRES) 02:33: mouth 2 Medi gabbi 0.1 MG 50 (two) Center tablet times daily. atorvastati 2021-02 Yes 20mg QD Take [address] n (LIPITOR) 0-02 by mouth Luke s 20 MG 02:33: daily. Medical tablet 50 Dora fenofibrate 2021-02 Yes 160mg QD Take [address] (TRIGLIDE,L 0-02 mg by [facility] OFIBRA) 160 02:33: mouth Medic al MG tablet 50 daily. Dora clopidogrel 2021-02 Yes 75mg QD Take [address] (PLAVIX) 75 0-02 by mouth Luke s mg tablet 02:33: daily. Medica l 50 Dora insulin 2021-02 Yes QD Inject [facility] glargine 0-02 [facility]o [facility] (LANTUS) 02:33: usly Medical 100 unit/mL 50 nightly Cente r injection Use as directed . aspirin 81 2021-02 Yes 81mg QD Take [address] MG EC 0-02 by mouth [facility] tablet 02:33: daily. Medical [address] [place] [address] lisinopril 2021-02 Yes 20mg QD Take [address] (PRINIVIL,Z 0-02 by mouth Luke s ESTRIL) 20 02:33: daily. Medic al MG tablet 50 Dora cloNIDine 2021-02 Yes .1mg Q.5D Take 0.[address] HCl 0-02 mg by [facility] (CATAPRES) 02:33: mouth 2 Medi gabbi 0.1 MG 50 (two) Center tablet times daily. atorvastati 2021-02 Yes 20mg QD Take [address] n (LIPITOR) 0-02 by mouth Luke s 20 MG 02:33: daily. Medical tablet 50 Dora fenofibrate 2021-02 Yes 160mg QD Take [address] (TRIGLIDE,L 0-02 mg by [facility] OFIBRA) 160 02:33: mouth Medic al MG tablet 50 daily. Dora clopidogrel 2021-02 Yes 75mg QD Take [address] (PLAVIX) 75 0-02 by mouth Luke s mg tablet 02:33: daily. Medica l 50 Dora insulin 2021-02 Yes QD Inject [facility] glargine 0-02 [facility]cutaneo [facility] (LANTUS) 02:33: usly Medical 100 unit/mL 50 nightly Cente r injection Use as directed . aspirin 81 2021-02 Yes 81mg QD Take [address] MG EC 0-02 by mouth [facility] tablet 02:33: daily. Medical 50 Center lisinopril 2021-02 Yes 20mg QD Take [address] (PRINIVIL,Z 0-02 by mouth Luke s ESTRIL) 20 02:33: daily. Medic al MG tablet 50 Center cloNIDine 2021-02 Yes .1mg Q.5D Take 0.[address] HCl 0-02 mg by [facility] (CATAPRES) 02:33: mouth 2 Medi gabbi 0.1 MG 50 (two) Center tablet times daily. atorvastati 2021-02 Yes 20mg QD Take [address] n (LIPITOR) 0-02 by mouth Luke s 20 MG 02:33: daily. Medical tablet 50 Center fenofibrate 2021-02 Yes 160mg QD Take [address] (TRIGLIDE,L 0-02 mg by [facility] OFIBRA) 160 02:33: mouth Medic al MG tablet 50 daily. Center nitroglycer Yes .4mg Place 0.4 M ethodi in 2-[address] (NITROSTAT) 15:55: the tongue Hospita 0.4 MG SL 04 every 5 l tablet (five) minutes as needed for chest pain. zinc Yes Take by Methodi sulfate 2-[address] (ZINC-220 15:55: Hospita ORAL) 04 l vitamin B Yes Take by Metho di complex/fol 2-[address] ic acid (B 15:55: Hospita COMPLEX 100 04 l ORAL) calcitrioL Yes .25ug QD Take 0.25 M ethodi (ROCALTROL) 2-[address] 0.25 MCG 15:55: mouth Hospita capsule 04 daily. l nitroglycer Yes .4mg Place 0.4 M ethodi in 2-[address] (NITROSTAT) 15:55: the tongue Hospita 0.4 MG SL 04 every 5 l tablet (five) minutes as needed for chest pain. zinc Yes Take by Methodi sulfate 2-[address] (ZINC-220 15:55: Hospita ORAL) 04 l vitamin B 2022-0 Yes Take by Metho di complex/fol 2-[address] ic acid (B 15:55: Hospita COMPLEX 100 04 l ORAL) calcitrioL 2022-0 Yes .25ug QD Take 0.25 M ethodi (ROCALTROL) 2-[address] 0.25 MCG 15:55: mouth Hospita capsule 04 daily. l nitroglycer 2022-[address] 0.4 M ethodi in 2-[address] (NITROSTAT) 15:55: the tongue Hospita 0.4 MG SL 04 every 5 l tablet (five) minutes as needed for chest pain. zinc 2022-0 Yes Take by Methodi sulfate 2-[address] (ZINC-220 15:55: Hospita ORAL) 04 l vitamin B 2022-0 Yes Take by Metho di complex/fol 2-[address] ic acid (B 15:55: Hospita COMPLEX 100 04 l ORAL) calcitrioL 2022-0 Yes .25ug QD Take 0.25 M ethodi (ROCALTROL) 2-[address] 0.25 MCG 15:55: mouth Hospita capsule 04 daily. l nitroglycer 2022-[address] 0.4 M ethodi in 2-[address] (NITROSTAT) 15:55: the tongue Hospita 0.4 MG SL 04 every 5 l tablet (five) minutes as needed for chest pain. zinc 2022-0 Yes Take by Methodi sulfate 2-[address] (ZINC-220 15:55: Hospita ORAL) 04 l vitamin B 2022-0 Yes Take by Metho di complex/fol 2-[address] ic acid (B 15:55: Hospita COMPLEX 100 04 l ORAL) calcitrioL 2022-0 Yes .25ug QD Take 0.25 M ethodi (ROCALTROL) 2-[address] 0.25 MCG 15:55: mouth Hospita capsule 04 daily. l nitroglycer 2022-[address] 0.4 M ethodi in 2-[address] (NITROSTAT) 15:55: the tongue Hospita 0.4 MG SL 04 every 5 l tablet (five) minutes as needed for chest pain. zinc 2022-0 Yes Take by Methodi sulfate 2-[address] (ZINC-220 15:55: Hospita ORAL) 04 l vitamin B 2022-0 Yes Take by Metho di complex/fol 2-[address] ic acid (B 15:55: Hospita COMPLEX 100 04 l ORAL) calcitrioL 2022-0 Yes .25ug QD Take 0.25 M ethodi (ROCALTROL) 2-[address] 0.25 MCG 15:55: mouth Hospita capsule 04 daily. l nitroglycer 2022-[address] 0.4 M ethodi in 2-[address] (NITROSTAT) 15:55: the tongue Hospita 0.4 MG SL 04 every 5 l tablet (five) minutes as needed for chest pain. zinc 2022-0 Yes Take by Methodi sulfate 2-[address] (ZINC-220 15:55: Hospita ORAL) 04 l vitamin B 2022-0 Yes Take by Metho di complex/fol 2-[address] ic acid (B 15:55: Hospita COMPLEX 100 04 l ORAL) calcitrioL 2022-0 Yes .25ug QD Take 0.25 M ethodi (ROCALTROL) 2-[address] 0.25 MCG 15:55: mouth Hospita capsule 04 daily. l nitroglycer 2022-[address] 0.4 M ethodi in 2-[address] (NITROSTAT) 15:55: the tongue Hospita 0.4 MG SL 04 every 5 l tablet (five) minutes as needed for chest pain. zinc 2022-0 Yes Take by Methodi sulfate 2-[address] (ZINC-220 15:55: Hospita ORAL) 04 l vitamin B 2022-0 Yes Take by Metho di complex/fol 2-[address] ic acid (B 15:55: Hospita COMPLEX 100 04 l ORAL) calcitrioL 2022-0 Yes .25ug QD Take 0.25 M ethodi (ROCALTROL) 2-[address] 0.25 MCG 15:55: mouth Hospita capsule 04 daily. l nitroglycer 2022-[address] 0.4 M ethodi in 2-[address] (NITROSTAT) 15:55: the tongue Hospita 0.4 MG SL 04 every 5 l tablet (five) minutes as needed for chest pain. zinc 2022-0 Yes Take by Methodi sulfate 2-[address] (ZINC-220 15:55: Hospita ORAL) 04 l vitamin B 2022-0 Yes Take by Metho di complex/fol 2-[address] ic acid (B 15:55: Hospita COMPLEX 100 04 l ORAL) calcitrioL 2022-0 Yes .25ug QD Take 0.25 M ethodi (ROCALTROL) 2-[address] 0.25 MCG 15:55: mouth Hospita capsule 04 daily. l nitroglycer 2022-[address] 0.4 M ethodi in 2-[address] (NITROSTAT) 15:55: the tongue Hospita 0.4 MG SL 04 every 5 l tablet (five) minutes as needed for chest pain. zinc 2022-0 Yes Take by Methodi sulfate 2-[address] (ZINC-220 15:55: Hospita ORAL) 04 l vitamin B 2022-0 Yes Take by Metho di complex/fol 2-[address] ic acid (B 15:55: Hospita COMPLEX 100 04 l ORAL) calcitrioL 2022-0 Yes .25ug QD Take 0.25 M ethodi (ROCALTROL) 2-[address] 0.25 MCG 15:55: mouth Hospita capsule 04 daily. l nitroglycer 2022-[address] 0.4 M ethodi in 2-[address] (NITROSTAT) 15:55: the tongue Hospita 0.4 MG SL 04 every 5 l tablet (five) minutes as needed for chest pain. zinc 2022-0 Yes Take by Methodi sulfate 2-[address] (ZINC-220 15:55: Hospita ORAL) 04 l vitamin B 2022-0 Yes Take by Metho di complex/fol 2-[address] ic acid (B 15:55: Hospita COMPLEX 100 04 l ORAL) calcitrioL 2022-0 Yes .25ug QD Take 0.25 M ethodi (ROCALTROL) 2-[address] 0.25 MCG 15:55: mouth Hospita capsule 04 daily. l clopidogreL 2022-0 2022- No 75mg QD Take 1 Met hodi (PLAVIX) 75 2-18 03-21 tablet (75 s t mg tablet 00:00: 04:59 mg total) Ho spita 00 :00 by mouth l daily for 30 days. pantoprazol 2021-2- No 40mg QD Take 1 Met hodi e 2-18 -21 tablet (40 st (PROTONIX) 00:00: 04:59 mg total) H ospita 40 MG EC 00 :00 by mouth l tablet daily for 30 days. clopidogreL 2021-2021- No 75mg QD Take 1 Met hodi (PLAVIX) 75 2-18 -21 tablet (75 s t mg tablet 00:00: 04:59 mg total) Ho spita 00 :00 by mouth l daily for 30 days. pantoprazol 2021-2021- No 40mg QD Take 1 Met hodi e 2-18 - tablet (40 st (PROTONIX) 00:00: 04:59 mg total) H ospita 40 MG EC 00 :00 by mouth l tablet daily for 30 days. clopidogreL 2021-0 2021- No 75mg QD Take 1 Met hodi (PLAVIX) 75 2-18 -21 tablet (75 s t mg tablet 00:00: 04:59 mg total) Ho spita 00 :00 by mouth l daily for 30 days. pantoprazol 2021-0 2021- No 40mg QD Take 1 Met hodi e 2-18 - tablet (40 st (PROTONIX) 00:00: 04:59 mg total) H ospita 40 MG EC 00 :00 by mouth l tablet daily for 30 days. clopidogreL 2021-0 2021- No 75mg QD Take 1 Met hodi (PLAVIX) 75 218 -21 tablet (75 s t mg tablet 00:00: 04:59 mg total) Ho spita 00 :00 by mouth l daily for 30 days. pantoprazol 2021-0 2- No 40mg QD Take 1 Met hodi e 2-18 -21 tablet (40 st (PROTONIX) 00:00: 04:59 mg total) H ospita 40 MG EC 00 :00 by mouth l tablet daily for 30 days. clopidogreL 2021-0 2- No 75mg QD Take 1 Met hodi (PLAVIX) 75 2-18 -21 tablet (75 s t mg tablet 00:00: 04:59 mg total) Ho spita 00 :00 by mouth l daily for 30 days. pantoprazol 2-0 2022- No 40mg QD Take 1 Met hodi e 2-18 -21 tablet (40 st (PROTONIX) 00:00: 04:59 mg total) H ospita 40 MG EC 00 :00 by mouth l tablet daily for 30 days. clopidogreL 2021-0 2022- No 75mg QD Take 1 Met hodi (PLAVIX) 75 2-18 -21 tablet (75 s t mg tablet 00:00: 04:59 mg total) Ho spita 00 :00 by mouth l daily for 30 days. pantoprazol 2021-0 2- No 40mg QD Take 1 Met hodi e 2-18 -21 tablet (40 st (PROTONIX) 00:00: 04:59 mg total) H ospita 40 MG EC 00 :00 by mouth l tablet daily for 30 days. clopidogreL 2021-2- No 75mg QD Take 1 Met hodi (PLAVIX) 75 2-18 -21 tablet (75 s t mg tablet 00:00: 04:59 mg total) Ho spita 00 :00 by mouth l daily for 30 days. pantoprazol 2021-0 2- No 40mg QD Take 1 Met hodi e 2-18 -21 tablet (40 st (PROTONIX) 00:00: 04:59 mg total) H ospita 40 MG EC 00 :00 by mouth l tablet daily for 30 days. clopidogreL 2021-0 2- No 75mg QD Take 1 Met hodi (PLAVIX) 75 2-18 -21 tablet (75 s t mg tablet 00:00: 04:59 mg total) Ho spita 00 :00 by mouth l daily for 30 days. pantoprazol 2-0 2- No 40mg QD Take 1 Met hodi e 2-18 03-21 tablet (40 st (PROTONIX) 00:00: 04:59 mg total) H ospita 40 MG EC 00 :00 by mouth l tablet daily for 30 days. clopidogreL 2021-0 2- No 75mg QD Take 1 Met hodi (PLAVIX) 75 2-18 03-21 tablet (75 s t mg tablet 00:00: 04:59 mg total) Ho spita 00 :00 by mouth l daily for 30 days. pantoprazol 2021- No 40mg QD Take 1 Met hodi e 2-18 03-21 tablet (40 st (PROTONIX) 00:00: 04:59 mg total) H ospita 40 MG EC 00 :00 by mouth l tablet daily for 30 days. clopidogreL 2021- No 75mg QD Take 1 Met hodi (PLAVIX) 75 -18 -21 tablet (75 s t mg tablet 00:00: 04:59 mg total) [facility] 00 :00 by mouth l daily for 30 days. pantoprazol 2021- No 40mg QD Take 1 [facility] 2-18 -21 tablet (40 st (PROTONIX) 00:00: 04:59 mg total) [facility] 40 MG EC 00 :00 by mouth l tablet daily for 30 days. furosemide 2021- No 40mg QD Take 40 mg [facility] (LASIX) 40 -16 04-[address] mg tablet 15:55: 00:00 daily. Ran [facility] 26 :00 out of l medication cholecalcif 2021- No 1000U QD Take 1,000 [facility] arvin, 2-17 02-[address] vitamin D3, 15:55: 00:00 mouth [facility] 25 mcg 26 :00 daily. l (1,000 unit) capsule isosorbide 2021- No 20mg Q.[id number] Take 20 mg [facility] dinitrate 04-16-17 [id number] by mouth [address] (ISORDIL) 15:55: 00:00 3D (three) [facility] 20 MG 26 :00 times a l tablet day. hydrALAZINE 2021- No 25mg Q.[id number] Take 25 mg [facility] (APRESOLINE 2-17 -17 [id number] by mouth 3 st ) 25 MG 15:55: 00:00 3D (three) [facility] tablet 26 :00 times a l day. carvediloL 2021- No 6.25mg Q.5D Take 6.25 [facility] (COREG) 2-17 02-[address] 6.25 MG 15:55: 00:00 mouth 2 [facility] tablet 26 :00 (two) l times a day with meals. furosemide 2021-0 2- No 40mg QD Take 40 mg [facility] (LASIX) 40 2-17 02-[address] mg tablet 15:55: 00:00 daily. Ran [facility] 26 :00 out of l medication cholecalcif 2021-0 2- No 1000U QD Take 1,000 [facility] arvin, 2-17 02-[address] vitamin D3, 15:55: 00:00 mouth [facility] 25 mcg 26 :00 daily. l (1,000 unit) capsule isosorbide 2021-0 2- No 20mg Q.[id number] Take 20 mg [facility] dinitrate -16 04-17 [id number] [address] mouth [address] (ISORDIL) 15:55: 00:00 3D (three) [facility] 20 MG 26 :00 times a l tablet day. hydrALAZINE 2021-0 2- No 25mg Q.[id number] Take 25 mg [facility] (APRESOLINE -16 04- [id number] by mouth 3 st ) 25 MG 15:55: 00:00 3D (three) [facility] tablet 26 :00 times a l day. carvediloL 2021-0 2- No 6.25mg Q.5D Take 6.25 [facility] (COREG) 2-17 02-[address] 6.25 MG 15:55: 00:00 mouth 2 [facility] tablet 26 :00 (two) l times a day with meals. furosemide 2021-0 2021- No 40mg QD Take 40 mg [facility] (LASIX) 40 2-17 -[address] mg tablet 15:55: 00:00 daily. [facility] 26 :00 out of l medication cholecalcif 2021-0 2- No 1000U QD Take 1,000 [facility] arvin, 2-17 02-[address] vitamin D3, 15:55: 00:00 mouth [facility] 25 mcg 26 :00 daily. l (1,000 unit) capsule isosorbide 2-0 2022- No 20mg Q.[id number] Take 20 mg [facility] dinitrate 2-17 -17 [id number] [address] mouth [address] (ISORDIL) 15:55: 00:00 3D (three) [facility] 20 MG 26 :00 times a l tablet day. hydrALAZINE 2021- No 25mg Q.[id number] Take 25 mg [facility] (APRESOLINE -16 04-17 [id number] by mouth 3 st ) 25 MG 15:55: 00:00 3D (three) [facility] tablet 26 :00 times a l day. carvediloL 2021- No 6.25mg Q.5D Take 6.25 [facility] (COREG) 2-17 02-[address] 6.25 MG 15:55: 00:00 mouth 2 [facility] tablet 26 :00 (two) l times a day with meals. furosemide 2021- No 40mg QD Take 40 mg [facility] (LASIX) 40 04-16-[address] mg tablet 15:55: 00:00 daily. [facility] 26 :00 out of l medication cholecalcif 2021- No 1000U QD Take 1,000 [facility], 04-16-[address] vitamin D3, 15:55: 00:00 mouth [facility] 25 mcg 26 :00 daily. l (1,000 unit) capsule isosorbide 2021- No 20mg Q.[id number] Take 20 mg [facility] dinitrate 04-16- [id number] by mouth [facility] (ISORDIL) 15:55: 00:00 3D (three) [facility] 20 MG 26 :00 times a l tablet day. hydrALAZINE 2021- No 25mg Q.07421777 Take 25 mg [facility] (APRESOLINE -16 04-17 [id number] by mouth 3 st ) 25 MG 15:55: 00:00 3D (three) [facility] tablet 26 :00 times a l day. carvediloL 2021- No 6.25mg Q.5D Take 6.25 [facility] (COREG) 2-17 02-[address] 6.25 MG 15:55: 00:00 mouth 2 [facility] tablet 26 :00 (two) l times a day with meals. furosemide 2021- No 40mg QD Take 40 mg [facility] (LASIX) 40 2-17 02-[address] mg tablet 15:55: 00:00 daily. [facility] 26 :00 out of l medication cholecalcif 2021-0 2021- No 1000U QD Take 1,000 [facility] ar[facility], 2-17 02-[address] vitamin D3, 15:55: 00:00 mouth [facility] 25 mcg 26 :00 daily. l (1,000 unit) capsule isosorbide 2021-0 2021- No 20mg Q.[id number] Take 20 mg [facility] dinitrate 2-17 -17 [id number] [address] (ISORDIL) 15:55: 00:00 3D (three) [facility] 20 MG 26 :00 times a l tablet day. hydrALAZINE 2021-2021- No 25mg Q.[id number] Take 25 mg [facility] (APRESOLINE 2-17 -17 [id number] by mouth 3 st ) 25 MG 15:55: 00:00 3D (three) [facility] tablet 26 :00 times a l day. carvediloL 2021- No 6.25mg Q.5D Take 6.25 [facility] (COREG) 2-17 02-[address] 6.25 MG 15:55: 00:00 mouth 2 [facility] tablet 26 :00 (two) l times a day with meals. furosemide 2021- No 40mg QD Take 40 mg [facility] (LASIX) 40 2-17 02-[address] mg tablet 15:55: 00:00 daily. Ran [facility] 26 :00 out of l medication cholecalcif 2021-0 2021- No 1000U QD Take 1,000 [facility] arvin, 2-17 02-[address] vitamin D3, 15:55: 00:00 mouth [facility] 25 mcg 26 :00 daily. l (1,000 unit) capsule isosorbide 2021-0 2021- No 20mg Q.[id number] Take 20 mg [facility] dinitrate 2-17 02-17 [id number] [address] mouth [address] (ISORDIL) 15:55: 00:00 3D (three) [facility] 20 MG 26 :00 times a l tablet day. hydrALAZINE 2021-2021- No 25mg Q.[id number] Take 25 mg [facility] (APRESOLINE -16 04-17 [id number] by mouth 3 st ) 25 MG 15:55: 00:00 3D (three) [facility] tablet 26 :00 times a l day. carvediloL 2021-0 2- No 6.25mg Q.5D Take 6.25 [facility] (COREG) 2-17 02-[address] 6.25 MG 15:55: 00:00 mouth 2 [facility] tablet 26 :00 (two) l times a day with meals. furosemide 2021-2021- No 40mg QD Take 40 mg [facility] (LASIX) 40 -16 04-[address] mg tablet 15:55: 00:00 daily. [facility] 26 :00 out of l medication cholecalcif 2021-2021- No 1000U QD Take 1,000 [facility], -16 04- Units by st vitamin D3, 15:55: 00:00 mouth [facility] 25 mcg 26 :00 daily. l (1,000 unit) capsule isosorbide 2021- No 20mg Q.[id number] Take 20 mg [facility] dinitrate -16 04-17 [id number] [address] mouth [address] (ISORDIL) 15:55: 00:00 3D (three) [facility] 20 MG 26 :00 times a l tablet day. hydrALAZINE 2021-2021- No 25mg Q.20504738 Take 25 mg [facility] (APRESOLINE -16 04-17 [id number] by mouth 3 st ) 25 MG 15:55: 00:00 3D (three) [facility] tablet 26 :00 times a l day. carvediloL 2021-0 2021- No 6.25mg Q.5D Take 6.25 [facility] (COREG) 2-17 02-[address] 6.25 MG 15:55: 00:00 mouth 2 [facility] a tablet 26 :00 (two) l times a day with meals. furosemide 2021-0 2021- No 40mg QD Take 40 mg [facility] (LASIX) 40 -16 04-[address] mg tablet 15:55: 00:00 daily. Ran [facility] 26 :00 out of l medication cholecalcif 2021-0 2021- No 1000U QD Take 1,000 [facility] arvin, 2-17 02-[address] vitamin D3, 15:55: 00:00 mouth [facility] 25 mcg 26 :00 daily. l (1,000 unit) capsule isosorbide 2021-0 2- No 20mg Q.[id number] Take 20 mg [facility] dinitrate 04-16- [id number] by mouth [facility] (ISORDIL) 15:55: 00:00 3D (three) [facility] 20 MG 26 :00 times a l tablet day. hydrALAZINE 2021-0 2021- No 25mg Q.[id number] Take 25 mg [facility] (APRESOLINE -16 04- [id number] by mouth 3 st ) 25 MG 15:55: 00:00 3D (three) [facility] tablet 26 :00 times a l day. carvediloL 2021-2021- No 6.25mg Q.5D Take 6.25 [facility] (COREG) 04-16-[address] 6.25 MG 15:55: 00:00 mouth 2 [facility] tablet 26 :00 (two) l times a day with meals. furosemide 2021-2021- No 40mg QD Take 40 mg [facility] (LASIX) 40 04-16- by mouth st mg tablet 15:55: 00:00 daily. Ran [facility] 26 :00 out of l medication cholecalcif 2021-0 2021- No 1000U QD Take 1,000 [facility] ar[facility], 2-16 04-[address] vitamin D3, 15:55: 00:00 mouth [facility] 25 mcg 26 :00 daily. l (1,000 unit) capsule isosorbide 2021-0 2021- No 20mg Q.[id number] Take 20 mg [facility] dinitrate -16 04- [id number] by mouth [facility] (ISORDIL) 15:55: 00:00 3D (three) [facility] 20 MG 26 :00 times a l tablet day. hydrALAZINE 2021-0 2021- No 25mg Q.[id number] Take 25 mg [facility] (APRESOLINE 04-16- [id number] by mouth 3 st ) 25 MG 15:55: 00:00 3D (three) [facility] tablet 26 :00 times a l day. carvediloL 2021- No 6.25mg Q.5D Take 6.25 [facility] (COREG) 2-17 02-[address] 6.25 MG 15:55: 00:00 mouth 2 [facility] a tablet 26 :00 (two) l times a day with meals. furosemide 2021- No 40mg QD Take 40 mg [facility] (LASIX) 40 04-[address] mg tablet 15:55: 00:00 daily. Ran [facility] 26 :00 out of l medication cholecalcif 2021- No 1000U QD Take 1,000 [facility], 04-[address] vitamin D3, 15:55: 00:00 mouth [facility] 25 mcg 26 :00 daily. l (1,000 unit) capsule isosorbide 2021- No 20mg Q.[id number] Take 20 mg [facility] dinitrate 04-16- [id number] by mouth [facility] (ISORDIL) 15:55: 00:00 3D (three) [facility] 20 MG 26 :00 times a l tablet day. hydrALAZINE 2021- No 25mg Q.[id number] Take 25 mg [facility] (APRESOLINE 04-16- [id number] by mouth 3 st ) 25 MG 15:55: 00:00 3D (three) [facility] tablet 26 :00 times a l day. carvediloL 2021- No 6.25mg Q.5D Take 6.25 [facility] (COREG) 2-17 02-[address] 6.25 MG 15:55: 00:00 mouth 2 [facility] a tablet 26 :00 (two) l times a day with meals. insulin Yes 30U QD Inject 30 [facility] GLARGINE 2-[address] (Lantus 15:55: under [facility] 25 skin every l U-100 morning. Insulin) 100 unit/mL injection (pen) aspirin Yes 81mg QD Take 81 mg [facility] (ECOTRIN) 2-[address] 81 MG 15:55: daily. [facility] 25 l coated tablet ferrous 0 Yes 325mg QD Take 325 [facility] di sulfate 325 2-[address] (65 FE) MG 15:55: mouth [facility] a tablet 25 daily with l breakfast. atorvastati 2021-0 Yes 40mg QD Take 40 mg [facility] n (LIPITOR) 2-[address] 40 mg 15:55: nightly. [facility]osp[facility] tablet 25 l ascorbic 2021-0 Yes 1000mg QD Take 1,000 [facility] acid, 2-[address] vitamin C, 15:55: mouth [facility] a (vitamin C) 25 daily. l 1000 MG tablet calcium 0 Yes 1334mg Q.56501443 Take 1,334 [facility] acetate,silvano 2-17 [id number] mg by s t sphat bind, 15:55: 3D mouth 3 [facility] (PHOSLO) 25 (three) l 667 mg times a capsule day with meals. insulin 0 Yes 30U QD Inject 30 [facility] di GLARGINE 2-[address] (Lantus 15:55: under [facility] 25 skin every l U-100 morning. Insulin) 100 unit/mL injection (pen) aspirin Yes 81mg QD Take 81 mg [facility] (ECOTRIN) 2-[address] 81 MG 15:55: daily. [facility] 25 l coated tablet ferrous 0 Yes 325mg QD Take 325 [facility] di sulfate 325 2-[address] (65 FE) MG 15:55: mouth [facility] a tablet 25 daily with l breakfast. atorvastati 0 Yes 40mg QD Take 40 mg [facility] n (LIPITOR) 2-[address] 40 mg 15:55: nightly. [facility] tablet 25 l ascorbic 2021-0 Yes 1000mg QD Take 1,000 [facility] acid, 2-[address] vitamin C, 15:55: mouth [facility] a (vitamin C) 25 daily. l 1000 MG tablet calcium 2021-0 Yes 1334mg Q.[id number] Take 1,334 [facility] acetate,silvano 2-17 [id number] mg by s t sphat bind, 15:55: 3D mouth 3 [facility] (PHOSLO) 25 (three) l 667 mg times a capsule day with meals. insulin 2021-0 Yes 30U QD Inject 30 [facility] GLARGINE 2-[address] (Lantus 15:55: under [facility] 25 skin every l U-100 morning. Insulin) 100 unit/mL injection (pen) aspirin 2022-0 Yes 81mg QD Take 81 mg [facility] (ECOTRIN) 2-[address] 81 MG 15:55: daily. [facility] 25 l coated tablet ferrous 202-0 Yes 325mg QD Take 325 [facility] di sulfate 325 2-[address] (65 FE) MG 15:55: mouth [facility] a tablet 25 daily with l breakfast. atorvastati 2021-0 Yes 40mg QD Take 40 mg [facility] n (LIPITOR) 2-[address] 40 mg 15:55: nightly. [facility] tablet 25 l ascorbic 2021-0 Yes 1000mg QD Take 1,000 [facility] acid, 2-[address] vitamin C, 15:55: mouth [facility] a (vitamin C) 25 daily. l 1000 MG tablet calcium 0 Yes 1334mg Q.36741637 Take 1,334 [facility] acetate,silvano 2-17 [id number] mg by s t sphat bind, 15:55: 3D mouth 3 [facility] (PHOSLO) 25 (three) l 667 mg times a capsule day with meals. insulin 202-0 Yes 30U QD Inject 30 [facility] di GLARGINE 2-[address] (Lantus 15:55: under [facility] 25 skin every l U-100 morning. Insulin) 100 unit/mL injection (pen) aspirin 2021-0 Yes 81mg QD Take 81 mg [facility] (ECOTRIN) 2-[address] 81 MG 15:55: daily. [facility] 25 l coated tablet ferrous 2022-0 Yes 325mg QD Take 325 [facility] di sulfate 325 2-[address] (65 FE) MG 15:55: mouth [facility] a tablet 25 daily with l breakfast. atorvastati 2022-0 Yes 40mg QD Take 40 mg [facility] n (LIPITOR) 2-[address] 40 mg 15:55: nightly. [facility] tablet 25 l ascorbic 2021-0 Yes 1000mg QD Take 1,000 [facility] acid, 2-[address] vitamin C, 15:55: mouth [facility] a (vitamin C) 25 daily. l 1000 MG tablet calcium 2021-0 Yes 1334mg Q.10033212 Take 1,334 [facility] acetate,silvano 2-17 [id number] mg by s t sphat bind, 15:55: 3D mouth 3 [facility] (PHOSLO) 25 (three) l 667 mg times a capsule day with meals. insulin 2021-0 Yes 30U QD Inject 30 [facility] di GLARGINE 2-[address] (Lantus 15:55: under [facility] 25 skin every l U-100 morning. Insulin) 100 unit/mL injection (pen) aspirin 2021-0 Yes 81mg QD Take 81 mg [facility] (ECOTRIN) 2-[address] 81 MG 15:55: daily. [facility] 25 l coated tablet ferrous 0 Yes 325mg QD Take 325 [facility] di sulfate 325 2-[address] (65 FE) MG 15:55: mouth [facility] a tablet 25 daily with l breakfast. atorvastati 0 Yes 40mg QD Take 40 mg [facility] n (LIPITOR) 2-[address] 40 mg 15:55: nightly. [facility]osp[facility] tablet 25 l ascorbic 2021-0 Yes 1000mg QD Take 1,000 [facility] acid, 2-[address] vitamin C, 15:55: mouth [facility] a (vitamin C) 25 daily. l 1000 MG tablet calcium 0 Yes 1334mg Q.[id number] Take 1,334 [facility] acetate,silvano 2-17 [id number] mg by s t sphat bind, 15:55: 3D mouth 3 [facility] (PHOSLO) 25 (three) l 667 mg times a capsule day with meals. insulin 2021-0 Yes 30U QD Inject 30 [facility] di GLARGINE 2-[address] (Lantus 15:55: under [facility] 25 skin every l U-100 morning. Insulin) 100 unit/mL injection (pen) aspirin 2021-0 Yes 81mg QD Take 81 mg [facility] (ECOTRIN) 2-[address] 81 MG 15:55: daily. [facility] 25 l coated tablet ferrous 2021-0 Yes 325mg QD Take 325 [facility] di sulfate 325 2-[address] (65 FE) MG 15:55: mouth [facility] a tablet 25 daily with l breakfast. atorvastati 202-0 Yes 40mg QD Take 40 mg [facility] n (LIPITOR) 2-[address] 40 mg 15:55: nightly. [facility]osp[facility] tablet 25 l ascorbic 2021-0 Yes 1000mg QD Take 1,000 [facility] acid, 2-[address] vitamin C, 15:55: mouth [facility] a (vitamin C) 25 daily. l 1000 MG tablet calcium 2021-0 Yes 1334mg Q.[id number] Take 1,334 [facility] acetate,silvano 2-17 [id number] mg by s t sphat bind, 15:55: 3D mouth 3 [facility] (PHOSLO) 25 (three) l 667 mg times a capsule day with meals. insulin 0 Yes 30U QD Inject 30 [facility] di GLARGINE 2-[address] (Lantus 15:55: under [facility] 25 skin every l U-100 morning. Insulin) 100 unit/mL injection (pen) aspirin 0 Yes 81mg QD Take 81 mg [facility] (ECOTRIN) 2-[address] 81 MG 15:55: daily. [facility] 25 l coated tablet ferrous 2021-0 Yes 325mg QD Take 325 [facility] di sulfate 325 2-[address] (65 FE) MG 15:55: mouth [facility] a tablet 25 daily with l breakfast. atorvastati 2021-0 Yes 40mg QD Take 40 mg [facility] (LIPITOR) 2-[address] 40 mg 15:55: nightly. [facility]osp[facility] tablet 25 l ascorbic 2022-0 Yes 1000mg QD Take 1,000 [facility] acid, 2-[address] vitamin C, 15:55: mouth [facility] a (vitamin C) 25 daily. l 1000 MG tablet calcium 2021-0 Yes 1334mg Q.[id number] Take 1,334 [facility] acetate,silvano 2-17 [id number] mg by s t sphat bind, 15:55: 3D mouth 3 [facility] (PHOSLO) 25 (three) l 667 mg times a capsule day with meals. insulin 2021-0 Yes 30U QD Inject 30 [facility] di GLARGINE 2-[address] (Lantus 15:55: under the [facility] 25 skin every l U-100 morning. Insulin) 100 unit/mL injection (pen) aspirin 2021-0 Yes 81mg QD Take 81 mg [facility] (ECOTRIN) 2-[address] 81 MG 15:55: daily. [facility] 25 l coated tablet ferrous 2021-0 Yes 325mg QD Take 325 [facility] di sulfate 325 2-[address] (65 FE) MG 15:55: mouth [facility] a tablet 25 daily with l breakfast. atorvastati 2021-0 Yes 40mg QD Take 40 mg [facility] (LIPITOR) 2-[address] 40 mg 15:55: nightly. [facility]osp[facility] tablet 25 l ascorbic 2021-0 Yes 1000mg QD Take 1,000 [facility] acid, 2-[address] vitamin C, 15:55: mouth [facility] a (vitamin C) 25 daily. l 1000 MG tablet calcium 0 Yes 1334mg Q.[id number] Take 1,334 [facility] acetate,silvano 2-17 [id number] mg by s t sphat bind, 15:55: 3D mouth 3 [facility] (PHOSLO) 25 (three) l 667 mg times a capsule day with meals. insulin 2021-0 Yes 30U QD Inject 30 [facility] di GLARGINE 2-[address] (Lantus 15:55: under [facility] 25 skin every l U-100 morning. Insulin) 100 unit/mL injection (pen) aspirin 2021-0 Yes 81mg QD Take 81 mg [facility] (ECOTRIN) 2-[address] 81 MG 15:55: daily. [facility] 25 l coated tablet ferrous 2-0 Yes 325mg QD Take 325 [facility] di sulfate 325 2-[address] (65 FE) MG 15:55: mouth [facility] a tablet 25 daily with l breakfast. atorvastati 2022-0 Yes 40mg QD Take 40 mg [facility] (LIPITOR) 2-[address] 40 mg 15:55: nightly. [facility]osp[facility] tablet 25 l ascorbic 2022-0 Yes 1000mg QD Take 1,000 [facility] acid, 2-[address] vitamin C, 15:55: mouth Hospit a (vitamin C) 25 daily. l 1000 MG tablet calcium 2021-0 Yes 1334mg Q.11937165 Take 1,334 [facility] acetate,silvano 2-17 [id number] mg by s t sphat bind, 15:55: 3D mouth 3 [facility] (PHOSLO) 25 (three) l 667 mg times a capsule day with meals. insulin 2021-0 Yes 30U QD Inject 30 [facility] di GLARGINE 2-[address] (Lantus 15:55: under the [facility] 25 skin every l U-100 morning. Insulin) 100 unit/mL injection (pen) aspirin 0 Yes 81mg QD Take 81 mg [facility] (ECOTRIN) 2-[address] 81 MG 15:55: daily. [facility] 25 l coated tablet ferrous 0 Yes 325mg QD Take 325 [facility] di sulfate 325 2-[address] (65 FE) MG 15:55: mouth [facility] a tablet 25 daily with l breakfast. atorvastati 0 Yes 40mg QD Take 40 mg [facility] (LIPITOR) 2-[address] 40 mg 15:55: nightly. [facility]osp[facility] tablet 25 l ascorbic 2021-0 Yes 1000mg QD Take 1,000 [facility] acid, 2-[address] vitamin C, 15:55: mouth Hospit a (vitamin C) 25 daily. l 1000 MG tablet calcium 0 Yes 1334mg Q.[id number] Take 1,334 [facility] acetate,silvano 2-17 [id number] mg by s t sphat bind, 15:55: 3D mouth 3 [facility] (PHOSLO) 25 (three) l 667 mg times a capsule day with meals. insulin 2021-0 Yes 0U Q.[id number] Inject [facility] lispro 2-17 [id number] 0-12 Units s t (ADMELOG) 00:00: 3D under the [facility] 100 unit/mL 00 skin 3 l injection (three) times a day before meals. insulin 2021-0 Yes 0U Q.[id number] Inject [facility] lispro 2-17 [id number] 0-12 Units s t (ADMELOG) 00:00: 3D under the [facility] 100 unit/mL 00 skin 3 l injection (three) times a day before meals. insulin 2022-0 Yes 0U Q.[id number] Inject [facility] lispro 2-17 [id number] 0-12 Units s t (ADMELOG) 00:00: 3D under the [facility] 100 unit/mL 00 skin 3 l injection (three) times a day before meals. insulin 2022-0 Yes 0U Q.[id number] Inject [facility] lispro 2-17 [id number] 0-12 Units s t (ADMELOG) 00:00: 3D under the [facility] 100 unit/mL 00 skin 3 l injection (three) times a day before meals. insulin 2022-0 Yes 0U Q.[id number] Inject [facility] lispro 2-17 [id number] 0-12 Units s t (ADMELOG) 00:00: 3D under the [facility] 100 unit/mL 00 skin 3 l injection (three) times a day before meals. insulin 2022-0 Yes 0U Q.[id number] Inject [facility] lispro 2-17 [id number] 0-12 Units s t (ADMELOG) 00:00: 3D under the [facility] 100 unit/mL 00 skin 3 l injection (three) times a day before meals. insulin 2022-0 Yes 0U Q.[id number] Inject [facility] lispro 2-17 [id number] 0-12 Units s t (ADMELOG) 00:00: 3D under the [facility] 100 unit/mL 00 skin 3 l injection (three) times a day before meals. insulin 2022-0 Yes 0U Q.[id number] Inject [facility] lispro 2-17 [id number] 0-12 Units s t (ADMELOG) 00:00: 3D under the [facility] 100 unit/mL 00 skin 3 l injection (three) times a day before meals. insulin 2022-0 Yes 0U Q.[id number] Inject [facility] lispro 2-17 [id number] 0-12 Units s t (ADMELOG) 00:00: 3D under the [facility] 100 unit/mL 00 skin 3 l injection (three) times a day before meals. insulin Yes 0U Q.[id number] Inject [facility] lispro 04-16 [id number] 0-12 Units s t (ADMELOG) 00:00: 3D under the [facility] 100 unit/mL 00 skin 3 l injection (three) times a day before meals. carvediloL 2021- No 3.125mg Q.5D Take 1 [facility] (COREG) 04-[address] 3.125 MG 00:00: 04:59 (3.125 mg [facility] tablet 00 :00 total) by l mouth 2 (two) times a day for 30 days. acetaminoph 2021- No 650mg Q6H Take 2 [facility] en 04-16-[address] (TYLENOL) 00:00: 04:59 (650 mg [facility] 325 MG 00 :00 total) by l tablet mouth every 6 (six) hours as needed for mild pain, headaches or fever (GREATER than 100.4) for up to 30 days. heparin 2021- No 5000U Q.[id number] Inject 1 [facility] sodium,porc 04-16 [id number] mL (5,000 st ine 00:00: 04:59 3D Units [facility]ospita (HEParin, 00 :00 total) l porcine,) under the 5,000 skin every unit/mL 8 (eight) injection hours for 30 days. ipratropium 2021- No [id number] .5mg Q.25D Take 2.5 [facility] (ATROVENT) 04-16 28094 mL (0.5 mg s t 0.02 % 00:00: 04:59 total) by [facility] nebulizer 00 :00 nebulizati l solution on every 6 (six) hours for 30 days. midodrine 2021- No 5mg Q.5D Take 1 [facility] (PROAMATINE 04-16 tablet (5 st ) 5 MG 00:00: 04:59 mg total) [facility] tablet 00 :00 by mouth 2 l (two) times a day for 30 days. polyethylen 2021- No 17g Q.5D Take 17 g [facility] glycol 04-16-[address] (MIRALAX) 00:00: 04:59 (two) Hospit [facility] 17 gram 00 :00 times a l packet day for 30 days. carvediloL 2021- No 3.125mg Q.5D Take 1 [facility]i (COREG) 04-16-[address] 3.125 MG 00:00: 04:59 (3.125 mg [facility] tablet 00 :00 total) by l mouth 2 (two) times a day for 30 days. acetaminoph 2021- No 650mg Q6H Take 2 [facility] 04-16-[address] (TYLENOL) 00:00: 04:59 (650 mg [facility] 325 MG 00 :00 total) by l tablet mouth every 6 (six) hours as needed for mild pain, headaches or fever (GREATER than 100.4) for up to 30 days. heparin 2021- No 5000U Q.[id number] Inject 1 [facility] sodium,porc 04-16- [id number] mL (5,000 st ine 00:00: 04:59 3D Units [facility]osp[facility] (HEParin, 00 :00 total) l porcine,) under the 5,000 skin every unit/mL 8 (eight) injection hours for 30 days. ipratropium 2021- No [id number] .5mg Q.25D Take 2.5 [facility] (ATROVENT) 04-16- 47795 mL (0.5 mg s t 0.02 % 00:00: 04:59 total) by [facility] nebulizer 00 :00 nebulizati l solution on every 6 (six) hours for 30 days. midodrine 2021- No 5mg Q.5D Take 1 [facility] (PROAMATINE 04-16-20 tablet (5 st ) 5 MG 00:00: 04:59 mg total) [facility] tablet 00 :00 by mouth 2 l (two) times a day for 30 days. polyethylen 2021- No 17g Q.5D Take 17 g [facility] glycol 04-16-[address] (MIRALAX) 00:00: 04:59 (two) Hospit a 17 gram 00 :00 times a l packet day for 30 days. carvediloL 2021- No 3.125mg Q.5D Take 1 M [facility]i (COREG) 04-[address] 3.125 MG 00:00: 04:59 (3.125 mg [facility] tablet 00 :00 total) by l mouth 2 (two) times a day for 30 days. acetaminoph 2021- No 650mg Q6H Take 2 [facility] 04-16- tablets st (TYLENOL) 00:00: 04:59 (650 mg [facility] 325 MG 00 :00 total) by l tablet mouth every 6 (six) hours as needed for mild pain, headaches or fever (GREATER than 100.4) for up to 30 days. heparin 2021- No 5000U Q.[id number] Inject 1 [facility] sodium,porc 04-16 [id number] mL (5,000 st ine 00:00: 04:59 3D [facility] (HEParin, 00 :00 total) l porcine,) under the 5,000 skin every unit/mL 8 (eight) injection hours for 30 days. ipratropium 2021- No [id number] .5mg Q.25D Take 2.5 [facility] (ATROVENT) 04-16 42376 mL (0.5 mg s t 0.02 % 00:00: 04:59 total) by Hospi ta nebulizer 00 :00 nebulizati l solution on every 6 (six) hours for 30 days. midodrine 2021- No 5mg Q.5D Take 1 Metho di (PROAMATINE 04-1620 tablet (5 st ) 5 MG 00:00: 04:59 mg total) Hospi ta tablet 00 :00 by mouth 2 l (two) times a day for 30 days. polyethylen 2021- No 17g Q.5D Take 17 g [facility] e glycol 04-[address] (MIRALAX) 00:00: 04:59 (two) Hospit a 17 gram 00 :00 times a l packet day for 30 days. carvediloL 2021- No 3.125mg Q.5D Take 1 M [facility]i (COREG) 04-16-[address] 3.125 MG 00:00: 04:59 (3.125 mg Hos jimena tablet 00 :00 total) by l mouth 2 (two) times a day for 30 days. acetaminoph 2021- No 650mg Q6H Take 2 Me thodi en 04-16-[address] (TYLENOL) 00:00: 04:59 (650 mg [facility] 325 MG 00 :00 total) by l tablet mouth every 6 (six) hours as needed for mild pain, headaches or fever (GREATER than 100.4) for up to 30 days. heparin 2021- No 5000U [id number] Inject 1 [facility] sodium,[facility] 04-16 [id number] mL (5,000 st ine 00:00: 04:59 3D Units [facility] (HEParin, 00 :00 total) l porcine,) under the 5,000 skin every unit/mL 8 (eight) injection hours for 30 days. ipratropium 2021- No [id number] .5mg Q.25D Take 2.5 [facility] (ATROVENT) 04-16 54464 mL (0.5 mg s t 0.02 % 00:00: 04:59 total) by [facility] nebulizer 00 :00 nebulizati l solution on every 6 (six) hours for 30 days. midodrine 2021- No 5mg Q.5D Take 1 [facility]o di (PROAMATINE 04-1620 tablet (5 st ) 5 MG 00:00: 04:59 mg total) [facility] tablet 00 :00 by mouth 2 l (two) times a day for 30 days. polyethylen 2021- No 17g Q.5D Take 17 g [facility] e glycol 04-16-[address] (MIRALAX) 00:00: 04:59 (two) Hospit [facility] 17 gram 00 :00 times a l packet day for 30 days. carvediloL 2021- No 3.125mg Q.5D Take 1 M [facility] (COREG) 04-16-[address] 3.125 MG 00:00: 04:59 (3.125 mg [facility] tablet 00 :00 total) by l mouth 2 (two) times a day for 30 days. acetaminoph 2021- No 650mg Q6H Take 2 [facility] 04-16-[address] (TYLENOL) 00:00: 04:59 (650 mg [facility] 325 MG 00 :00 total) by l tablet mouth every 6 (six) hours as needed for mild pain, headaches or fever (GREATER than 100.4) for up to 30 days. heparin 2021- No 5000U [id number] Inject 1 [facility] sodium,porc 04-16- [id number] mL (5,000 st ine 00:00: 04:59 3D Units [facility] (HEParin, 00 :00 total) l porcine,) under the 5,000 skin every unit/mL 8 (eight) injection hours for 30 days. ipratropium 2021- No [id number] .5mg Q.25D Take 2.5 [facility] (ATROVENT) 04-16 60473 mL (0.5 mg s t 0.02 % 00:00: 04:59 total) by [facility] ta nebulizer 00 :00 nebulizati l solution on every 6 (six) hours for 30 days. midodrine 2021- No 5mg Q.5D Take 1 Metho di (PROAMATINE 04-1620 tablet (5 st ) 5 MG 00:00: 04:59 mg total) [facility] tablet 00 :00 by mouth 2 l (two) times a day for 30 days. polyethylen 2021- No 17g Q.5D Take 17 g [facility] e glycol 04-[address] (MIRALAX) 00:00: 04:59 (two) Hospit a 17 gram 00 :00 times a l packet day for 30 days. carvediloL 2021- No 3.125mg Q.5D Take 1 [facility] (COREG) 04-[address] 3.125 MG 00:00: 04:59 (3.125 mg [facility] tablet 00 :00 total) by l mouth 2 (two) times a day for 30 days. acetaminoph 2021- No 650mg Q6H Take 2 [facility] 04-16-[address] (TYLENOL) 00:00: 04:59 (650 mg [facility] 325 MG 00 :00 total) by l tablet mouth every 6 (six) hours as needed for mild pain, headaches or fever (GREATER than 100.4) for up to 30 days. heparin 2021- No 5000U Q.[id number] Inject 1 [facility] sodium,porc 04-16- [id number] mL (5,000 st ine 00:00: 04:59 3D Units [facility] (HEParin, 00 :00 total) l porcine,) under the 5,000 skin every unit/mL 8 (eight) injection hours for 30 days. ipratropium 2021- No [id number] .5mg Q.25D Take 2.5 [facility] (ATROVENT) 04-16- 04048 mL (0.5 mg s t 0.02 % 00:00: 04:59 total) by [facility] nebulizer 00 :00 nebulizati l solution on every 6 (six) hours for 30 days. midodrine 2021- No 5mg Q.5D Take 1 [facility]o di (PROAMATINE 04-16-20 tablet (5 st ) 5 MG 00:00: 04:59 mg total) [facility] tablet 00 :00 by mouth 2 l (two) times a day for 30 days. polyethylen 2021- No 17g Q.5D Take 17 g [facility] glycol 04-16-[address] (MIRALAX) 00:00: 04:59 (two) Hospit a 17 gram 00 :00 times a l packet day for 30 days. carvediloL 2021- No 3.125mg Q.5D Take 1 [facility] (COREG) 04-16-[address] 3.125 MG 00:00: 04:59 (3.125 mg [facility] tablet 00 :00 total) by l mouth 2 (two) times a day for 30 days. acetaminoph 2021- No 650mg Q6H Take 2 [facility] 04-16-[address] (TYLENOL) 00:00: 04:59 (650 mg [facility] 325 MG 00 :00 total) by l tablet mouth every 6 (six) hours as needed for mild pain, headaches or fever (GREATER than 100.4) for up to 30 days. heparin 2021- No 5000U Q.[id number] Inject 1 [facility] sodium,porc 04-16-20 [id number] mL (5,000 st ine 00:00: 04:59 3D Units [facility] (HEParin, 00 :00 total) l porcine,) under the 5,000 skin every unit/mL 8 (eight) injection hours for 30 days. ipratropium 2021- No [id number] .5mg Q.25D Take 2.5 [facility] (ATROVENT) 04-16- 98497 mL (0.5 mg s t 0.02 % 00:00: 04:59 total) by [facility] nebulizer 00 :00 nebulizati l solution on every 6 (six) hours for 30 days. midodrine 2021- No 5mg Q.5D Take 1 [facility]o di (PROAMATINE 04-16-20 tablet (5 st ) 5 MG 00:00: 04:59 mg total) [facility] tablet 00 :00 by mouth 2 l (two) times a day for 30 days. polyethylen 2021- No 17g Q.5D Take 17 g [facility] glycol 04-16-[address] (MIRALAX) 00:00: 04:59 (two) Hospit a 17 gram 00 :00 times a l packet day for 30 days. carvediloL 2021- No 3.125mg Q.5D Take 1 [facility] (COREG) 04-16-[address] 3.125 MG 00:00: 04:59 (3.125 mg [facility] tablet 00 :00 total) by l mouth 2 (two) times a day for 30 days. acetaminoph 2021- No 650mg Q6H Take 2 [facility] 04-16-[address] (TYLENOL) 00:00: 04:59 (650 mg [facility] 325 MG 00 :00 total) by l tablet mouth every 6 (six) hours as needed for mild pain, headaches or fever (GREATER than 100.4) for up to 30 days. heparin 2021- No 5000U [id number] Inject 1 [facility] sodium,porc 04-16- [id number] mL (5,000 st ine 00:00: 04:59 3D Units [facility] (HEParin, 00 :00 total) l porcine,) under the 5,000 skin every unit/mL 8 (eight) injection hours for 30 days. ipratropium 2021- No [id number] .5mg Q.25D Take 2.5 [facility] (ATROVENT) 04-16- 87619 mL (0.5 mg s t 0.02 % 00:00: 04:59 total) by [facility] nebulizer 00 :00 nebulizati l solution on every 6 (six) hours for 30 days. midodrine 2021- No 5mg Q.5D Take 1 [facility]o di (PROAMATINE 04-16- tablet (5 st ) 5 MG 00:00: 04:59 mg total) [facility] tablet 00 :00 by mouth 2 l (two) times a day for 30 days. polyethylen 2021- No 17g Q.5D Take 17 g [facility] glycol 04-16-[address] (MIRALAX) 00:00: 04:59 (two) Hospit a 17 gram 00 :00 times a l packet day for 30 days. carvediloL 2021- No 3.125mg Q.5D Take 1 [facility] (COREG) 04-[address] 3.125 MG 00:00: 04:59 (3.125 mg [facility] tablet 00 :00 total) by l mouth 2 (two) times a day for 30 days. acetaminoph 2021- No 650mg Q6H Take 2 [facility] 04-16-[address] (TYLENOL) 00:00: 04:59 (650 mg [facility] 325 MG 00 :00 total) by l tablet mouth every 6 (six) hours as needed for mild pain, headaches or fever (GREATER than 100.4) for up to 30 days. heparin 2021- No 5000U [id number] Inject 1 [facility] sodium,porc 04-16- [id number] mL (5,000 st ine 00:00: 04:59 3D Units [facility] (HEParin, 00 :00 total) l porcine,) under the 5,000 skin every unit/mL 8 (eight) injection hours for 30 days. ipratropium 2021- No [id number] .5mg Q.25D Take 2.5 [facility] (ATROVENT) 04-16- 01986 mL (0.5 mg s t 0.02 % 00:00: 04:59 total) by Hos[facility] ta nebulizer 00 :00 nebulizati l solution on every 6 (six) hours for 30 days. midodrine 2021- No 5mg Q.5D Take 1 Metho di (PROAMATINE 04-16 tablet (5 st ) 5 MG 00:00: 04:59 mg total) [facility] tablet 00 :00 by mouth 2 l (two) times a day for 30 days. polyethylen 2021- No 17g Q.5D Take 17 g [facility] e glycol 04-[address] (MIRALAX) 00:00: 04:59 (two) Hospit a 17 gram 00 :00 times a l packet day for 30 days. carvediloL 2021- No 3.125mg Q.5D Take 1 [facility] (COREG) 04-16-[address] 3.125 MG 00:00: 04:59 (3.125 mg [facility] tablet 00 :00 total) by l mouth 2 (two) times a day for 30 days. acetaminoph 2021- No 650mg Q6H Take 2 [facility] 04-16-[address] (TYLENOL) 00:00: 04:59 (650 mg [facility] 325 MG 00 :00 total) by l tablet mouth every 6 (six) hours as needed for mild pain, headaches or fever (GREATER than 100.4) for up to 30 days. heparin 2021- No 5000U [id number] Inject 1 [facility] sodium,porc 04-16- [id number] mL (5,000 st ine 00:00: 04:59 3D Units [facility] (HEParin, 00 :00 total) l porcine,) under the 5,000 skin every unit/mL 8 (eight) injection hours for 30 days. ipratropium No [id number] .5mg Q.25D Take 2.5 [facility] (ATROVENT) 2-17 -20 20446 mL (0.5 mg s t 0.02 % 00:00: 04:59 total) by [facility] nebulizer 00 :00 nebulizati l solution on every 6 (six) hours for 30 days. midodrine No 5mg Q.5D Take 1 [facility] di (PROAMATINE 2-17 -20 tablet (5 st ) 5 MG 00:00: 04:59 mg total) [facility] tablet 00 :00 by mouth 2 l (two) times a day for 30 days. polyethylen 2021- No 17g Q.5D Take 17 g [facility] glycol 04-16-[address] (MIRALAX) 00:00: 04:59 (two) Hospit a 17 gram 00 :00 times a l packet day for 30 days. HYDROcodone 2021- No [id number] 1{tbl} Q4H Take 1 [facility] -acetaminop 2-17 02-[address] [facility] (Poke[facility]n Call) 00:00: 05:59 mouth [facility] 5-325 mg 00 :00 every 4 l per tablet (four) hours as needed for moderate pain for up to 7 days .acute pain. Max Daily Amount: 6 tablets HYDROcodone 2021- No [id number] 1{tbl} Q4H Take 1 [facility] -acetaminop 2-17 02-[address] [facility] ([facility] Call) 00:00: 05:59 mouth [facility] 5-325 mg 00 :00 every 4 l per tablet (four) hours as needed for moderate pain for up to 7 days .acute pain. Max Daily Amount: 6 tablets HYDROcodone 2021- No [id number] 1{tbl} Q4H Take 1 [facility] -acetaminop 2-17 02-[address] [facility] ([facility] Call) 00:00: 05:59 mouth [facility] 5-325 mg 00 :00 every 4 l per tablet (four) hours as needed for moderate pain for up to 7 days .acute pain. Max Daily Amount: 6 tablets HYDROcodone 2021-0 2021- No [id number] 1{tbl} Q4H Take 1 [facility] -acetaminop 2-17 02-[address] [facility] ([facility] Call) 00:00: 05:59 mouth [facility] 5-325 mg 00 :00 every 4 l per tablet (four) hours as needed for moderate pain for up to 7 days .acute pain. Max Daily Amount: 6 tablets HYDROcodone 2021-0 2021- No [id number] 1{tbl} Q4H Take 1 [facility] -acetaminop 2-17 02-[address] [facility] (Poke[facility]n Call) 00:00: 05:59 mouth [facility] 5-325 mg 00 :00 every 4 l per tablet (four) hours as needed for moderate pain for up to 7 days .acute pain. Max Daily Amount: 6 tablets HYDROcodone 2021-0 2021- No 1{tbl} Q4H Take 1 [facility] -acetaminop 2-17 02-[address] [facility] ([facility]oke[facility] Call) 00:00: 05:59 mouth [facility] 5-325 mg 00 :00 every 4 l per tablet (four) hours as needed for moderate pain for up to 7 days .acute pain. Max Daily Amount: 6 tablets HYDROcodone 2021-0 2021- 1{tbl} Q4H Take 1 [facility] -acetaminop 2-17 02-[address] [facility] ([facility]oke[facility] Call) 00:00: 05:59 mouth [facility] 5-325 mg 00 :00 every 4 l per tablet (four) hours as needed for moderate pain for up to 7 days .acute pain. Max Daily Amount: 6 tablets HYDROcodone 2021-0 2021- No [id number] 1{tbl} Q4H Take 1 [facility] -acetaminop 2-17 02-[address] [facility] ([facility] Call) 00:00: 05:59 mouth [facility] 5-325 mg 00 :00 every 4 l per tablet (four) hours as needed for moderate pain for up to 7 days .acute pain. Max Daily Amount: 6 tablets HYDROcodone 2021-0 2021- No [id number] 1{tbl} Q4H Take 1 [facility] -acetaminop 2-17 02-[address] [facility] (Poke[facility]n Call) 00:00: 05:59 mouth [facility] 5-325 mg 00 :00 every 4 l per tablet (four) hours as needed for moderate pain for up to 7 days .acute pain. Max Daily Amount: 6 tablets HYDROcodone 2021-0 2021- [place] [id number] 1{tbl} Q4H Take 1 [facility] -acetaminop 04-[address] [facility] (Poke[facility]n Call) 00:00: 05:59 mouth [facility] 5-325 mg 00 :00 every 4 l per tablet (four) hours as needed for moderate pain for up to 7 days .acute pain. Max Daily Amount: 6 tablets ciprofloxac 2021-0 2021- No 500mg Q.5D Take 1 [facility] (Cipro) 03-[address] 500 MG 00:00: 05:59 (500 mg [facility]osp[facility] tablet 00 :00 total) by l mouth 2 (two) times a day for 5 days. ciprofloxac 2021-0 2021- No 500mg Q.5D Take 1 [facility] (Cipro) 03-[address] 500 MG 00:00: 05:59 (500 mg [facility]osp[facility] tablet 00 :00 total) by l mouth 2 (two) times a day for 5 days. ciprofloxac 2021-0 2021- No 500mg Q.5D Take 1 [facility] (Cipro) 03-[address] 500 MG 00:00: 05:59 (500 mg [facility] tablet 00 :00 total) by l mouth 2 (two) times a day for 5 days. ciprofloxac 2021-0 2021- No 500mg Q.5D Take 1 [facility] (Cipro) 03-[address] 500 MG 00:00: 05:59 (500 mg [facility]osp[facility] tablet 00 :00 total) by l mouth 2 (two) times a day for 5 days. ciprofloxac 2021-0 2022- No 500mg Q.5D Take 1 [facility] (Cipro) 03-[address] 500 MG 00:00: 05:59 (500 mg [facility] tablet 00 :00 total) by l mouth 2 (two) times a day for 5 days. ciprofloxac 2022-0 2022- No 500mg Q.5D Take 1 [facility] (Cipro) 03-[address] 500 MG 00:00: 05:59 (500 mg [facility]osp[facility] tablet 00 :00 total) by l mouth 2 (two) times a day for 5 days. ciprofloxac 2021-0 2022- No 500mg Q.5D Take 1 [facility] (Cipro) 03-[address] 500 MG 00:00: 05:59 (500 mg [facility] tablet 00 :00 total) by l mouth 2 (two) times a day for 5 days. ciprofloxac 2021-0 2022- No 500mg Q.5D Take 1 [facility] (Cipro) 03-[address] 500 MG 00:00: 05:59 (500 mg [facility] tablet 00 :00 total) by l mouth 2 (two) times a day for 5 days. ciprofloxac 2021-0 2022- No 500mg Q.5D Take 1 [facility] (Cipro) 03-[address] 500 MG 00:00: 05:59 (500 mg [facility] tablet 00 :00 total) by l mouth 2 (two) times a day for 5 days. ciprofloxac 2021-0 2022- No 500mg Q.5D Take 1 [facility] (Cipro) 03-[address] 500 MG 00:00: 05:59 (500 mg [facility] tablet 00 :00 total) by l mouth 2 (two) times a day for 5 days. ciprofloxac 2021-0 2022- No 500mg Q.5D Take 1 [facility] (Cipro) 03-[address] 500 MG 00:00: 05:59 (500 mg [facility]osp[facility] tablet 00 :00 total) by l mouth 2 (two) times a day for 5 days. calcitrioL 0 Yes .25ug QD Take 0.25 M [facility]i (ROCALTROL) 1-[address] 0.25 MCG 16:00: mouth [facility]osp[facility] capsule 47 daily. l nitroglycer 2021-[address] 0.4 M ethodi in [...] l (1,000 unit) capsule isosorbide Yes 20mg Q.[id number] Take 20 mg [facility] dinitrate 1-25 [id number] mouth [address] (ISORDIL) 15:58: 3D (three) [facility]pi ta 20 MG 10 times a l tablet day. hydrALAZINE Yes 25mg Q.[id number] Take 25 mg [facility] (APRESOLINE 1-25 [id number] by mouth 3 st ) 25 MG 15:58: 3D (three) [facility]ospita tablet 10 times a l day. calcium 2021-0 Yes 1334mg Q.[id number] Take 1,334 [facility] acetate,silvano 1-25 [id number] mg by s t sphat bind, 15:58: 3D mouth 3 [facility] (PHOSLO) 10 (three) l 667 mg times a capsule day with meals. carvediloL 0 Yes 6.25mg Q.5D Take 6.25 [facility] (COREG) 1-[address] 6.25 MG 15:58: mouth 2 [facility]osp[facility] tablet 10 (two) l times a day with meals. ciprofloxac 2020-02- No 500mg Q.5D Take 1 [facility] (Cipro) 04-[address] 500 MG 00:00: 05:59 (500 mg [facility]osp[facility] tablet 00 :00 total) by l mouth 2 (two) times a day for 7 days. ciprofloxac 2020-02 No 500mg Q.5D Take 1 [facility] (Cipro) 04-[address] 500 MG 00:00: 05:59 (500 mg [facility] tablet 00 :00 total) by l mouth 2 (two) times a day for 7 days. ciprofloxac 2020-02- No 500mg Q.5D Take 1 [facility] (Cipro) 04-[address] 500 MG 00:00: 05:59 (500 mg [facility]osp[facility] tablet 00 :00 total) by l mouth 2 (two) times a day for 7 days. ciprofloxac 2020-02- No 500mg Q.5D Take 1 [facility] (Cipro) 04-[address] 500 MG 00:00: 05:59 (500 mg [facility]osp[facility] tablet 00 :00 total) by l mouth 2 (two) times a day for 7 days. ciprofloxac 2020-02- No 500mg Q.5D Take 1 [facility] (Cipro) 04-[address] 500 MG 00:00: 05:59 (500 mg [facility]osp[facility] tablet 00 :00 total) by l mouth 2 (two) times a day for 7 days. ciprofloxac 2020-02- No 500mg Q.5D Take 1 [facility] (Cipro) 04-[address] 500 MG 00:00: 05:59 (500 mg [facility] tablet 00 :00 total) by l mouth 2 (two) times a day for 7 days. ciprofloxac 2020-02- No 500mg Q.5D Take 1 [facility] (Cipro) 04-[address] 500 MG 00:00: 05:59 (500 mg [facility]osp[facility] tablet 00 :00 total) by l mouth 2 (two) times a day for 7 days. ciprofloxac 2020-02- No 500mg Q.5D Take 1 [facility] (Cipro) 04-[address] 500 MG 00:00: 05:59 (500 mg [facility]osp[facility] tablet 00 :00 total) by l mouth 2 (two) times a day for 7 days. ciprofloxac 2020-02- No 500mg Q.5D Take 1 [facility] (Cipro) 04-[address] 500 MG 00:00: 05:59 (500 mg [facility]osp[facility] tablet 00 :00 total) by l mouth 2 (two) times a day for 7 days. ciprofloxac 2020-02 No 500mg Q.5D Take 1 [facility] (Cipro) 04-[address] 500 MG 00:00: 05:59 (500 mg [facility]osp[facility] tablet 00 :00 total) by l mouth 2 (two) times a day for 7 days. ciprofloxac 2020-02- No 500mg Q.5D Take 1 [facility] (Cipro) 04-[address] 500 MG 00:00: 05:59 (500 mg [facility]osp[facility] tablet 00 :00 total) by l mouth 2 (two) times a day for 7 days. isosorbide 2020- No 20mg Q.[id number] Take 20 mg [facility] dinitrate 6-10 06-10 [id number] by mouth [facility] [address] (ISORDIL) 16:31: 00:00 3D (three) [facility] 20 MG 00 :00 times a l tablet day. carvediloL 2020- No 6.25mg Q.5D Take 6.25 [facility] (COREG) 6-10 06-[address] 6.25 MG 16:31: 00:00 mouth 2 Hospit a tablet 00 :00 (two) l times a day with meals. hydrALAZINE 2020- No 37.5mg Q.[id number] Take 37.5 [facility] (APRESOLINE 6-10 06-[id number] by st ) 25 MG 16:31: 00:00 3D mouth 3 Hospit a tablet 00 :00 (three) l times a day. pantoprazol 2020- No 40mg Q24H Take 40 mg [facility] e 08-06- by mouth st (PROTONIX) 14:19: 00:00 daily as [facility] 40 MG EC 01 :00 needed. l tablet ascorbic No 500mg QD Take 500 [facility] acid, 08-06- mg by st vitamin C, 14:17: 00:00 mouth Hospi ta (VITAMIN C) 25 :00 daily. l 500 MG tablet furosemide 2020- No 40mg Q24H Take 40 mg [facility] (LASIX) 40 5-20 05-[address] mg tablet 12:15: 00:00 daily as [facility] 16 :00 needed. l furosemide 2020- No 40mg QD Take 1 Meth marsha (LASIX) 40 5-20 -09 tablet (40 st mg tablet 00:00: 00:00 mg total) Ho [facility] 00 :00 by mouth l daily for 30 days. LANTUS 2015-02- No [facility] SOLOSTAR 0 05-14 st 100 unit/mL 00:00: 00:00 [facility]pi ta (3 mL) 00 :00 l insulin pen atorvastati 2020- No Metho di n (LIPITOR) 10-23-14 st 80 MG 00:00: 00:00 [facility]ospita tablet 00 :00 l lisinopril 2020- No [facility] (PRINIVIL,Z 09-19 05-14 st ESTRIL) 40 00:00: 00:00 Hospit a MG tablet 00 :00 l Lantus 2014-02 Yes Pallavolu INJECT 50 M emoria SoloStar 2-03 Up UNITS l 03:02: SUBCUTANEO [place] 19 USLY ONCE DAILY Lantus 2014-02 Yes Pallavolu INJECT 50 M emoria SoloStar 2-03 Up UNITS l 03:02: SUBCUTANEO Preet 19 USLY ONCE DAILY Pantoprazol Yes Pallavolu 1 tablet [facility] e Sodium 4-15 Up l 02:03: 24 Carvedilol Yes Pallavolu TAKE ONE [facility] 4-15 Up TABLET BY l 02:03: MOUTH 24 TWICE DAILY Plavix Yes Pallavolu 1 tablet Me moria 4-15 Up Once a day l 02:03: Orally 90 24 days Novolin Yes Pallavolu 20 UNITS M emoria 70/30 4-15 Up l 02:03: Fenofibrate Yes Pallavolu TAKE ONE [facility] 4-15 Up TABLET BY l 02:03: MOUTH ONCE 24 DAILY Simvastatin Yes Pallavolu 1 tablet [facility] 4-15 Up l 02:03: Meclizine Yes Pallavolu 1 tablet [facility] HCl 4-15 Up l 02:03: Lisinopril Yes Pall[facility]olu TAKE ONE [facility] 4-15 Up TABLET BY l 02:03: MOUTH ONCE 24 DAILY Aspirin Yes Pallavolu 1 tablet M emoria 4-15 Up l 02:03: Pantoprazol Yes Pallavolu 1 tablet [facility] e Sodium 4-15 Up l 02:03: Carvedilol Yes Pallavolu TAKE ONE [facility] 4-15 Up TABLET BY l 02:03: MOUTH 24 TWICE DAILY Plavix Yes Pallavolu 1 tablet Me moria 4-15 Up Once a day l 02:03: Orally 90 [place] 24 days Novolin Yes [facility]olu 20 UNITS M emoria 70/30 4-15 Up l 02:03: Fenofibrate 2015-0 Yes Pallavolu TAKE ONE [facility] 4-15 Up TABLET BY l 02:03: MOUTH ONCE DAILY Simvastatin Yes Pallavolu 1 tablet [facility] 4-15 Up l 02:03: Meclizine Yes Pallavolu 1 tablet [facility] HCl 4-15 Up l 02:03: Lisinopril Yes Pallavolu TAKE ONE [facility] 4-15 Up TABLET BY l 02:03: MOUTH ONCE DAILY Aspirin Yes Pallavolu 1 tablet M emoria 4-15 Up l 02:03: Simvastatin Yes Pallavolu 1 tablet [facility] 4-15 Up l 02:02: Simvastatin Yes Pallavolu 1 tablet [facility] 4-15 Up l 02:02: Cipro Yes Pallavolu 1 tablet Mem oria 3-20 Up l 00:00: Cipro Yes Pallavolu 1 tablet Mem [facility] 3-20 Up l 00:00: Lantus Yes Pallavolu 40 UNITS Me moria SoloStar 3-13 Up l 00:00: Lantus Yes Pallavolu 40 UNITS Me moria SoloStar 3-13 Up l 00:00: Aspirin 81 Aspirin 81 No 1{table QD Aspirin 81 MG MG t} MG hydrALAZINE hydrALAZINE No hydrALAZIN HCl 50 MG HCl 50 MG E HCl 50 MG Sodium Sodium No BID Sodium Chloride 1 Chloride 1 Chloride 1 GM GM GM Carvedilol Carvedilol No Carvedilol 6.25 MG 6.25 MG 6.25 MG Vitamin C Vitamin C No 1{table QD Vitamin C 1000 MG 1000 MG t} 1000 MG Calcitriol Calcitriol No 1{capsu Calcitriol 0.25 MCG 0.25 MCG le} 0.25 MCG Bumetanide Bumetanide No Bumetanide 2 MG 2 MG 2 MG Lactulose Lactulose No Lactulose 10 GM/15ML 10 GM/15ML 10 GM/15ML HumaLOG HumaLOG No TID HumaLOG KwikPen 100 KwikPen 100 KwikPen UNIT/ML UNIT/ML 100 UNIT/ML Vitamin B Vitamin B No Vitamin B Complex - Complex - Complex - Metoclopram Metoclopram No 1{table BID Metoclopra lauren HCl 5 lauren HCl 5 t_befor mide HCl 5 MG MG e_meals MG } Vitamin D3 Vitamin D3 No 1{table QD Vitamin D3 25 MCG 25 MCG t} 25 MCG (1000 UT) (1000 UT) (1000 UT) Sucralfate Sucralfate No 1{table BID Sucralfate 1 GM 1 GM t_on_an 1 GM _empty_ stomach } Zinc Zinc No 1{capsu QD Zinc Sulfate 220 Sulfate 220 le} Sulfate (50 Zn) MG (50 Zn) MG 220 (50 Zn) MG Lantus Lantus No BID Lantus SoloStar SoloStar SoloStar 100 UNIT/ML 100 UNIT/ML 100 UNIT/ML Atorvastati Atorvastati No Atorvastat n Calcium n Calcium in Calcium 40 MG 40 MG 40 MG Pantoprazol Pantoprazol No Pantoprazo e Sodium 40 e Sodium 40 le Sodium MG MG 40 MG Midodrine Midodrine No 1{table BID Midodrine HCl 5 MG HCl 5 MG t} HCl 5 MG Calcium Calcium No Calcium Acetate Acetate Acetate (Phos (Phos (Phos Binder) 667 Binder) 667 Binder) MG MG 667 MG Aspirin 81 Aspirin 81 No 1{table QD Aspirin 81 MG MG t} MG hydrALAZINE hydrALAZINE No hydrALAZIN HCl 50 MG HCl 50 MG E HCl 50 MG Sodium Sodium No BID Sodium Chloride 1 Chloride 1 Chloride 1 GM GM GM Carvedilol Carvedilol No Carvedilol 6.25 MG 6.25 MG 6.25 MG Vitamin C Vitamin C No 1{table QD Vitamin C 1000 MG 1000 MG t} 1000 MG Calcitriol Calcitriol No 1{capsu Calcitriol 0.25 MCG 0.25 MCG le} 0.25 MCG Bumetanide Bumetanide No Bumetanide 2 MG 2 MG 2 MG Lactulose Lactulose No Lactulose 10 GM/15ML 10 GM/15ML 10 GM/15ML HumaLOG HumaLOG No TID HumaLOG KwikPen 100 KwikPen 100 KwikPen UNIT/ML UNIT/ML 100 UNIT/ML Vitamin B Vitamin B No Vitamin B Complex - Complex - Complex - Metoclopram Metoclopram No 1{table BID Metoclopra lauren HCl 5 lauren HCl 5 t_befor mide HCl 5 MG MG e_meals MG } Vitamin D3 Vitamin D3 No 1{table QD Vitamin D3 25 MCG 25 MCG t} 25 MCG (1000 UT) (1000 UT) (1000 UT) Sucralfate Sucralfate No 1{table BID Sucralfate 1 GM 1 GM t_on_an 1 GM _empty_ stomach } Zinc Zinc No 1{capsu QD Zinc Sulfate 220 Sulfate 220 le} Sulfate (50 Zn) MG (50 Zn) MG 220 (50 Zn) MG Lantus Lantus No BID Lantus SoloStar SoloStar SoloStar 100 UNIT/ML 100 UNIT/ML 100 UNIT/ML Atorvastati Atorvastati No Atorvastat n Calcium n Calcium in Calcium 40 MG 40 MG 40 MG Pantoprazol Pantoprazol No Pantoprazo e Sodium 40 e Sodium 40 le Sodium MG MG 40 MG Midodrine Midodrine No 1{table BID Midodrine HCl 5 MG HCl 5 MG t} HCl 5 MG Calcium Calcium No Calcium Acetate Acetate Acetate (Phos (Phos (Phos Binder) 667 Binder) 667 Binder) MG MG 667 MG Calcitriol Calcitriol No 1{capsu Calcitriol 0.25 MCG 0.25 MCG le} 0.25 MCG Vitamin D3 Vitamin D3 No 1{table QD Vitamin D3 25 MCG 25 MCG t} 25 MCG (1000 UT) (1000 UT) (1000 UT) Vitamin B Vitamin B No Vitamin B Complex - Complex - Complex - Lactulose Lactulose No Lactulose 10 GM/15ML 10 GM/15ML 10 GM/15ML HumaLOG HumaLOG No TID HumaLOG KwikPen 100 KwikPen 100 KwikPen UNIT/ML UNIT/ML 100 UNIT/ML Atorvastati Atorvastati No Atorvastat n Calcium n Calcium in Calcium 40 MG 40 MG 40 MG Calcium Calcium No Calcium Acetate Acetate Acetate (Phos (Phos (Phos Binder) 667 Binder) 667 Binder) MG MG 667 MG Midodrine Midodrine No 1{table BID Midodrine HCl 5 MG HCl 5 MG t} HCl 5 MG hydrALAZINE hydrALAZINE No hydrALAZIN HCl 50 MG HCl 50 MG E HCl 50 MG Sodium Sodium No BID Sodium Chloride 1 Chloride 1 Chloride 1 GM GM GM Zinc Zinc No 1{capsu QD Zinc Sulfate 220 Sulfate 220 le} Sulfate (50 Zn) MG (50 Zn) MG 220 (50 Zn) MG Metoclopram Metoclopram No 1{table BID Metoclopra lauren HCl 5 lauren HCl 5 t_befor mide HCl 5 MG MG e_meals MG } Carvedilol Carvedilol No Carvedilol 6.25 MG 6.25 MG 6.25 MG Lantus Lantus No BID Lantus SoloStar SoloStar SoloStar 100 UNIT/ML 100 UNIT/ML 100 UNIT/ML Vitamin C Vitamin C No 1{table QD Vitamin C 1000 MG 1000 MG t} 1000 MG Pantoprazol Pantoprazol No Pantoprazo e Sodium 40 e Sodium 40 le Sodium MG MG 40 MG Bumetanide Bumetanide No Bumetanide 2 MG 2 MG 2 MG Sucralfate Sucralfate No 1{table BID Sucralfate 1 GM 1 GM t_on_an 1 GM _empty_ stomach } Aspirin 81 Aspirin 81 No 1{table QD Aspirin 81 MG MG t} MG Aspirin 81 Aspirin 81 No 1{table QD Aspirin 81 MG MG t} MG hydrALAZINE hydrALAZINE No hydrALAZIN HCl 50 MG HCl 50 MG E HCl 50 MG Sodium Sodium No BID Sodium Chloride 1 Chloride 1 Chloride 1 GM GM GM Carvedilol Carvedilol No Carvedilol 6.25 MG 6.25 MG 6.25 MG Vitamin C Vitamin C No 1{table QD Vitamin C 1000 MG 1000 MG t} 1000 MG Calcitriol Calcitriol No 1{capsu Calcitriol 0.25 MCG 0.25 MCG le} 0.25 MCG Bumetanide Bumetanide No Bumetanide 2 MG 2 MG 2 MG Lactulose Lactulose No Lactulose 10 GM/15ML 10 GM/15ML 10 GM/15ML HumaLOG HumaLOG No TID HumaLOG KwikPen 100 KwikPen 100 KwikPen UNIT/ML UNIT/ML 100 UNIT/ML Vitamin B Vitamin B No Vitamin B Complex - Complex - Complex - Metoclopram Metoclopram No 1{table BID Metoclopra lauren HCl 5 lauren HCl 5 t_befor mide HCl 5 MG MG e_meals MG } Vitamin D3 Vitamin D3 No 1{table QD Vitamin D3 25 MCG 25 MCG t} 25 MCG (1000 UT) (1000 UT) (1000 UT) Sucralfate Sucralfate No 1{table BID Sucralfate 1 GM 1 GM t_on_an 1 GM _empty_ stomach } Zinc Zinc No 1{capsu QD Zinc Sulfate 220 Sulfate 220 le} Sulfate (50 Zn) MG (50 Zn) MG 220 (50 Zn) MG Lantus Lantus No BID Lantus SoloStar SoloStar SoloStar 100 UNIT/ML 100 UNIT/ML 100 UNIT/ML Atorvastati Atorvastati No Atorvastat n Calcium n Calcium in Calcium 40 MG 40 MG 40 MG Pantoprazol Pantoprazol No Pantoprazo e Sodium 40 e Sodium 40 le Sodium MG MG 40 MG Midodrine Midodrine No 1{table BID Midodrine HCl 5 MG HCl 5 MG t} HCl 5 MG Calcium Calcium No Calcium Acetate Acetate Acetate (Phos (Phos (Phos Binder) 667 Binder) 667 Binder) MG MG 667 MG Immunizations Ordered Immunization Filled Immunization Date Status Commen ts Source Name Name [facility] 2014-11-[address] [facility] 00:00:00 [facility] 2014-11-[address] [facility] 00[facility]00:00 [facility] 2014-11-[address] [facility] 00:00:00 [facility] 2014-11-[address] [facility] 00[facility]00:00 [facility] 2014-11-[address] [facility] 00:00:00 [facility] 2014-11-[address] [facility] 00:00:00 [facility] 2014-11-[address] [facility] 00:00:00 [facility] Vital Signs Vital Name Observation Time Observation Value Comments Source WEIGHT 2021-11-29 17:10:00 78.4 kg WEIGHT 2021-11-29 06:00:00 78.4 kg WEIGHT 2021-11-29 03:00:00 78.4 kg WEIGHT 2021-11-29 17:10:00 78.4 kg WEIGHT 2021-11-29 06:00:00 78.4 kg WEIGHT 2021-11-29 03:00:00 78.4 kg WEIGHT 2021-11-29 17:10:00 78.4 kg WEIGHT 2021-11-29 06:00:00 78.4 kg WEIGHT 2021-11-29 03:00:00 78.4 kg oximetry 2021-10-23 15:00:00 99 % [facility] respiratory rate 2021-10-23 15:00:00 17 /min Comm on [facility] blood pressure 2021-10-23 15:00:00 114 mm[Hg] [facility] blood pressure 2021-10-23 15:00:00 55 mm[Hg] [facility] diastolic [facility] height 2021-10-23 15:00:00 65 [in_i] Common [facility] weight 2021-10-23 15:00:00 179 [lb_av] [facility] temperature 2021-10-23 15:00:00 98.7 [degF] [facility] bmi 2021-10-23 15:00:00 29.78 kg/m2 [facility] height 2021-10-23 14:20:00 65 [in_i] [facility] weight 2021-10-23 14:20:00 179 [lb_av] [facility] temperature 2021-10-23 14:20:00 98.7 [degF] [facility] bmi 2021-10-23 14:20:00 29.78 kg/m2 [facility] oximetry 2021-10-23 14:20:00 99 % [facility] respiratory rate 2021-10-23 14:20:00 17 /min Comm on [facility] blood pressure 2021-10-23 14:20:00 114 mm[Hg] Common [facility] - systolic [facility] blood pressure 2021-10-23 14:20:00 55 mm[Hg] Common [facility] - diastolic [facility] height 2021-09-24 10:00:00 65 [in_i] Common [facility] weight 2021-09-24 10:00:00 179 [lb_av] [facility] temperature 2021-09-24 10:00:00 97.5 [degF] [facility] bmi 2021-09-24 10:00:00 29.78 kg/m2 [facility] oximetry 2021-09-24 10:00:00 100 % [facility] respiratory rate 2021-09-24 10:00:00 16 /min Comm on [facility] blood pressure 2021-09-24 10:00:00 120 mm[Hg] Common [facility] - systolic [facility] blood pressure 2021-09-24 10:00:00 68 mm[facility]Hg[facility] Systolic blood 2021-11-29 22:00:00 122 mm[Hg] [facility] Diastolic blood 2021-11-29 22:00:00 60 mm[Hg] [facility] rate 2021-11-29 22:00:00 79 /min [facility] Respiratory rate 2021-11-29 22:00:00 20 /min [facility] Oxygen saturation in 2021-11-29 22:00:00 99 /min [facility] Arterial blood by Medical Ce nter Pulse oximetry Body temperature 2021-11-29 20:00:00 36.89 Jennyfer [facility] Body weight 2021-11-29 17:10:00 78.4 kg [facility] Systolic blood 2021-06-02 18:12:00 123 mm[Hg] [facility] pressure Diastolic blood 2021-06-02 18:12:00 70 mm[Hg] Metho [facility] pressure Heart rate 2021-06-02 18:12:00 88 /min [facility] Body height 2021-06-02 18:12:00 165.1 cm [facility] Body weight 2021-06-02 18:12:00 104.781 kg [facility] BMI 2021-06-02 18:12:00 38.44 kg/m2 [facility] Oxygen saturation in 2021-06-02 18:12:00 98 /min [facility] Arterial blood by Pulse oximetry Respiratory rate 2021-04-16 19:59:00 18 /min [facility] Body temperature 2021-04-16 14:35:00 36.61 Jennyfer [facility] Body height 2021-03-25 16:20:00 165.1 cm [facility] Body weight 2021-03-25 16:20:00 89.086 kg [facility] BMI 2021-03-25 16:20:00 32.68 kg/m2 [facility] Systolic blood 2021-03-25 15:49:00 128 mm[Hg] [facility] pressure Diastolic blood 2021-03-25 15:49:00 60 mm[Hg] [facility] pressure Heart rate 2021-03-25 15:49:00 73 /min [facility] Body temperature 2021-03-25 15:49:00 35.89 Jennyfer [facility] Respiratory rate 2021-03-25 15:49:00 20 /min [facility] Oxygen saturation in 2021-03-25 15:49:00 100 /min [facility] Arterial blood by Pulse oximetry Weight 2014-06-10 15:00:00 [facility] Temperature Oral (F) 2014-06-10 15:00:00 98.4 F [facility] 2014-06-10 15:00:00 [facility] Diastolic (mm Hg) 2014-06-10 15:00:00 Mem o[facility] Systolic (mm Hg) 2014-06-10 15:00:00 [facility]reet Weight 2014-05-17 15:15:00 [facility] Temperature Oral (F) 2014-05-17 15:15:00 98.6 F [facility] Diastolic (mm Hg) 2014-05-17 15:15:00 Mem orial [facility] Systolic (mm Hg) 2014-05-17 15:15:00 [facility] 2014-03-25 15:45:00 [facility] Temperature Oral (F) 2014-03-25 15:45:00 97.9 F [facility] Heart Rate 2014-03-25 15:45:00 [facility] Diastolic (mm Hg) 2014-03-25 15:45:00 Mem orial [facility] Systolic (mm Hg) 2014-03-25 15:45:00 Alireza Oviedo Procedures Procedure Date / Time Performing Clinician Source Performed PREPARE RBC 2021-12-10 23:54:00 Corona, [facility] POCT-GLUCOSE METER 2021-12-10 12:02:00 Corona, [facility] POCT-GLUCOSE METER 2021-12-10 07:11:00 Corona, [facility] BASIC METABOLIC PANEL 2021-12-10 04:15:00 Corona, [facility] POCT-GLUCOSE METER 2021-12-09 20:56:00 Corona, [facility] XR ABDOMEN/KUB 1 VIEW 2021-12-09 16:46:00 Farzad Alberto I [facility] POCT-GLUCOSE METER 2021-12-09 16:12:00 Corona, [facility] POCT-GLUCOSE METER 2021-12-09 11:28:00 Corona, [facility] POCT-GLUCOSE METER 2021-12-09 07:43:00 Corona, [facility] POCT-GLUCOSE METER 2021-12-08 21:54:00 Corona, [facility] POCT-GLUCOSE METER 2021-12-08 20:09:00 Corona, [facility] ABORH, MANUAL 2021-12-08 17:28:00 Ct Paul [facility] POCT-GLUCOSE METER 2021-12-08 16:22:00 Corona, [facility] TYPE AND SCREEN, AUTOMATED 2021-12-08 14:53:00 CoronaJosé Luis martinezhu Kang [facility] POCT-GLUCOSE METER 2021-12-08 10:47:00 Corona, [facility] POCT-GLUCOSE METER 2021-12-08 07:06:00 Corona, [facility] POCT-GLUCOSE METER 2021-12-07 20:19:00 Corona, [facility] POCT-GLUCOSE METER 2021-12-07 17:18:00 Corona, [facility] POCT-GLUCOSE METER 2021-12-07 12:13:00 Corona, [facility] POCT-GLUCOSE METER 2021-12-07 08:36:00 Corona, [facility] POCT-GLUCOSE METER 2021-12-06 20:51:00 Corona, [facility] POCT-GLUCOSE METER 2021-12-06 16:19:00 Corona, [facility] POCT-GLUCOSE METER 2021-12-06 11:50:00 Corona, [facility] POCT-GLUCOSE METER 2021-12-06 08:09:00 Corona, [facility] POCT-GLUCOSE METER 2021-12-05 20:34:00 Corona, [facility] POCT-GLUCOSE METER 2021-12-05 16:21:00 Corona, [facility] POCT-GLUCOSE METER 2021-12-05 12:03:00 Corona, [facility] POCT-GLUCOSE METER 2021-12-05 07:59:00 Corona, [facility] POCT-GLUCOSE METER 2021-12-04 20:53:00 Corona, [facility] POCT-GLUCOSE METER 2021-12-04 16:38:00 Corona, [facility] XR ABDOMEN/KUB 1 VIEW 2021-12-04 13:22:00 Corona, [facility] POCT-GLUCOSE METER 2021-12-04 11:34:00 Corona, [facility] POCT-GLUCOSE METER 2021-12-04 07:53:00 Corona, [facility] POCT-GLUCOSE METER 2021-12-03 21:09:00 Corona, [facility] POCT-GLUCOSE METER 2021-12-03 17:01:00 Corona, [facility] POCT-GLUCOSE METER 2021-12-03 11:55:00 Corona, [facility] POCT-GLUCOSE METER 2021-12-03 07:46:00 Corona, [facility] POCT-GLUCOSE METER 2021-12-02 22:14:00 Corona, [facility] POCT-GLUCOSE METER 2021-12-02 20:37:00 Corona, [facility] POCT-GLUCOSE METER 2021-12-02 16:04:00 Corona, [facility] POCT-GLUCOSE METER 2021-12-02 11:15:00 Corona, [facility] POCT-GLUCOSE METER 2021-12-02 07:37:00 Corona, [facility] POCT-GLUCOSE METER 2021-12-02 06:27:00 Corona, [facility] POCT-GLUCOSE METER 2021-12-01 16:48:00 Corona, [facility] POCT-GLUCOSE METER 2021-12-01 15:14:00 Corona, [facility] POCT-GLUCOSE METER 2021-12-01 11:00:00 Corona, [facility] POCT-GLUCOSE METER 2021-12-01 08:06:00 Corona, [facility] POCT-GLUCOSE METER 2021-12-01 06:08:00 Corona, [facility] POCT-GLUCOSE METER 2021-11-30 22:11:00 Corona, [facility] 2D ECHO W/ DOPPLER 2021-11-30 08:22:20 [facility] 2021-11-29 21:16:00 Corona, Will B [facility] LACTIC ACID, VENOUS 2021-11-29 21:03:00 JaiOctaviaPili [facility] BASIC METABOLIC PANEL 2021-11-29 21:03:00 [facility] BODY FLUID CULTURE + GRAM 2021-11-29 17:27:00 Stephanie Hough CH, I [facility] STAIN [facility] BODY FLUID CELL COUNT WITH 2021-11-29 17:25:[address] [facility] DIFFERENTIAL [facility] POCT-GLUCOSE METER 2021-11-29 16:11:00 Will Corona [facility] LACTIC ACID, VENOUS 2021-11-29 14:13:[address] [facility] BASIC METABOLIC PANEL 2021-11-29 14:13:00 [facility] MAGNESIUM 2021-11-29 14:13:[address] [facility] CALCIUM, IONIZED 2021-11-29 12:24:00 Jai [facility] BLOOD CULTURE 2021-11-29 04:50:00 Stas Lyles [facility] B-TYPE NATRIURETIC FACTOR 2021-11-29 04:45:00 Stas Lyles CH, I [facility] (BNP) [facility] KETONE, BLOOD 2021-11-29 04:44:00 Stas Lyles [facility] CBC W/PLT COUNT & AUTO 2021-11-29 04:20:00 Stas Lyles [facility] DIFFERENTIAL [facility] CBC W/PLT COUNT & AUTO 2021-11-29 04:20[facility]00 [facility] DIFFERENTIAL [facility] COMPREHENSIVE METABOLIC 2021-11-29 04:20:00 Stas Lyles [facility] CALCIUM, IONIZED 2021-11-29 04:20:00 Stas Lyles [facility] MAGNESIUM 2021-11-29 04:20:00 Stas Lyles [facility] PHOSPHORUS 2021-11-29 04:20:00 Stas Lyles [facility] TSH/FREE T4 IF INDICATED 2021-11-29 04:20:00 Rafal, Stas [facility] T4, FREE 2021-11-29 04:20:00 Rafal Stas [facility] BLOOD CULTURE 2021-11-29 04:19:00 Rafal Stas [facility] ECG 12-LEAD 2021-11-29 04:00:34 Unknown, [facility] ECG 12-LEAD 2021-11-29 04:00:34 Unknown, [facility] ECG 12-LEAD 2021-11-29 03:59:50 Unknown, [facility] ECG 12-LEAD 2021-11-29 03:59:50 Eglibrahima, Stas [facility] ECG 12-LEAD 2021-11-29 03:59:50 Unknown, [facility] XR CHEST 1 VIEW PORTABLE / 2021-11-29 03:50:[address] [facility] PERMANENT LAB REPORT - 2021-11-29 00:00:00 Provider, Anders [facility] POC GLUCOSE 2021-04-16 17:45:00 Forest Mcmahon spital Stephane POC GLUCOSE 2021-04-16 14:31:00 Forest Mcmahon XR CHEST 1 VW PORTABLE 2021-04-16 13:40:16 Linda Nolan [facility] HC COMPLETE BLD COUNT 2021-04-16 10:34:00 [facility] BASIC METABOLIC PANEL 2021-04-16 10:34:00 An [facility] MAGNESIUM LEVEL 2021-04-16 10:34:00 Linda Nolan spital ESTIMATED GFR 2021-04-16 10:34:00 Linda Nolan spital POC GLUCOSE 2021-04-16 03:06:00 Forest Mcmahon spijamaal Wardian COVID-19 QUALITATIVE 2021-04-15 23:24:00 [facility]ane COVID-19 OMICRON VARIANT 2021-04-15 23:24:00 Forest Mcmahon [facility] QUALITATIVE RT-PCR Stephane POC GLUCOSE 2021-04-15 23:04:00 Forest Mcmahon Ho spital Stephane TYPE AND SCREEN 2021-04-15 19:14:00 [facility] PREPARE RBC 2021-04-15 19:14:00 [facility] POC GLUCOSE 2021-04-15 18:11:00 Thampoe, Forest Torres Ho spital Stephane POC GLUCOSE 2021-04-15 14:02:00 Thampoe, Forest Torres Ho spital Stephane XR CHEST 1 VW PORTABLE 2021-04-15 12:48:08 [facility] 2021-04-15 11:53[facility]00 [facility] BASIC METABOLIC PANEL 2021-04-15 11:53:00 [facility] MAGN[facility] L[facility] 2021-04-15 11:53:00 NolanLinda Ho spital ESTIMATED GFR 2021-04-15 11:53:00 NolnaLinda Ho spital POC GLUCOSE 2021-04-15 02:15:00 Thampoe, Forest Torres Ho spital Stephane POC GLUCOSE 2021-04-14 22:22:00 Thampoe, Forest Torres Ho spital Stephane POC GLUCOSE 2021-04-14 17:48:00 Thampoe, Forest Torres Ho spital Stephane POC GLUCOSE 2021-04-14 13:59:00 Thampoe, Forest Torres Ho spital Stephane XR CHEST 1 VW PORTABLE 2021-04-14 10:53:13 [facility] COMPLETE BLD COUNT 2021-04-14 10:38:00 [facility] BASIC METABOLIC PANEL 2021-04-14 10:38:00 [facility] MAGNESIUM LEVEL 2021-04-14 10:38:00 NolanLinda Ho spital PHOSPHORUS LEVEL 2021-04-14 10:38:00 NolanLinda H ospital ESTIMATED GFR 2021-04-14 10:38:00 Linda Nolan [facility] sp[facility] POC GLUCOSE 2021-04-14 01:44:00 Thampoe, Basti [facility] Ho spital Stephane POC GLUCOSE 2021-04-13 22:25:00 Thampoe, Basti [facility] Stephane POC GLUCOSE 2021-04-13 17:51:00 Thampoe, Basti [facility] spital Stephane POC GLUCOSE 2021-04-13 13:43:00 Thampoe, Basti [facility] spital Stephane XR CHEST 1 VW PORTABLE 2021-04-13 11:21:44 [facility] BASIC METABOLIC PANEL 2021-04-13 11:11:00 [facility] HC COMPLETE BLD COUNT 2021-04-13 11:11:00 [facility] W/AUTO DIFF MAGNESIUM LEVEL 2021-04-13 11:11:00 [facility] PHOSPHORUS LEVEL 2021-04-13 11:11:00 [facility] Terry Torres H ospital IONIZED CALCIUM 2021-04-13 11:11:00 Conner Mazeppasuzie Torres Ho spital ESTIMATED GFR 2021-04-13 11:11:00 [facility] POC GLUCOSE 2021-04-13 02:04:00 Gracieoe, Basti [facility] spital Stephane POC GLUCOSE 2021-04-12 22:15:00 Thalorettaoe, Basti [facility] spital Stephane POC GLUCOSE 2021-04-12 18:13:00 Thampoe, Basti [facility] Stephane POC GLUCOSE 2021-04-12 15:09:00 Thampoe, Basti [facility] spital Stephane XR CHEST 1 VW PORTABLE 2021-04-12 11:42:00 [facility] BASIC METABOLIC PANEL 2021-04-12 10:24:00 [facility] HC COMPLETE BLD COUNT 2021-04-12 10:24:00 [facility] W/AUTO DIFF MAGNESIUM LEVEL 2021-04-12 10:24:00 Prieto, Bhargav Torres Ho spital PHOSPHORUS LEVEL 2021-04-12 10:24:00 Prieto, Bhargav Torres H ospital IONIZED CALCIUM 2021-04-12 10:24:00 Prieto, Bhargav Torres Ho spital ESTIMATED GFR 2021-04-12 10:24:00 Janak Rose [facility] POC GLUCOSE 2021-04-12 02:13:00 Forest Mcmahon spital Stephane IONIZED CALCIUM 2021-04-11 23:42:00 Prieto, Bhargav Dowell spital POC GLUCOSE 2021-04-11 23:00:00 Forest Mcmahon spital Stephane POC GLUCOSE 2021-04-11 18:41:00 Forest Mcmahon spital Stephane XR CHEST 1 PORTABLE 2021-04-11 14:29:00 Prieto, [facility] POC GLUCOSE 2021-04-11 13:12:00 Forest Mcmahon spital Stephane BASIC METABOLIC PANEL 2021-04-11 11:33:00 [facility] HC COMPLETE BLD COUNT 2021-04-11 11:33:00 [facility] W/AUTO DIFF MAGNESIUM LEVEL 2021-04-11 11:33:00 Bhargav Prieto Ho spital PHOSPHORUS LEVEL 2021-04-11 11:33:00 Bhargav Prieto H ospital IONIZED CALCIUM 2021-04-11 11:33:00 PrietoBhargav marsh Ho spital ESTIMATED GFR 2021-04-11 11:33:00 [facility]ner [facility] POC GLUCOSE 2021-04-11 01:24:00 Forest Mcmahontal Stephane XR CHEST 1 VW PORTABLE 2021-04-10 22:47:00 [facility] LINE/DRAIN REMOVAL 2021-04-10 21:28:34 [facility] POC GLUCOSE 2021-04-10 21:17:00 Forest Mcmahon spital Stephane COMPREHENSIVE METABOLIC 2021-04-10 20:51:00 [facility] PANEL HC COMPLETE BLD COUNT 2021-04-10 20:51:00 Robert, [facility] W/AUTO DIFF MAGNESIUM LEVEL 2021-04-10 20:51:00 Robert, Segunho Elizondoist Ho spital PHOSPHORUS LEVEL 2021-04-10 20:51:00 Robert, Segunho Elizondoist H ospital ESTIMATED GFR 2021-04-10 20:51:00 Robert, Segun Torres Ho spital IONIZED CALCIUM 2021-04-10 20:51:00 Robert, Segun Torres spital POC GLUCOSE 2021-04-10 17:56:00 Forest Mcmahon spital Stephane POC GLUCOSE 2021-04-10 13:36:00 Forest Mcmahon spital Stephane XR CHEST 1 VW PORTABLE 2021-04-10 10:48:54 Deborah [facility] BASIC METABOLIC PANEL 2021-04-10 09:16:00 Deborah [facility] HC COMPLETE BLD COUNT 2021-04-10 09:16:00 Gregoriout [facility] W/AUTO DIFF Vedasto MAGNESIUM LEVEL 2021-04-10 09:16:00 Deborah [facility] PHOSPHORUS LEVEL 2021-04-10 09:16:00 [facility] 2021-04-10 09:16:00 Deborah [facility] PROTHROMBIN TIME WITH INR 2021-04-10 09:16:00 Ann Cabrera [facility] HEPATITIS B SURFACE 2021-04-10 09:16:00 Janak Rose [facility] ANTIGEN ESTIMATED GFR 2021-04-10 09:16:00 Deborah [facility] POC GLUCOSE 2021-04-10 07:02:00 Thampoe, Basti [facility] spital Stephane POC GLUCOSE 2021-04-10 02:06:00 Thampoe, Basti [facility] Stephane POC GLUCOSE 2021-04-09 21:36:00 Thampoe, Basti [facility] Stephane POC GLUCOSE 2021-04-09 17:39:00 Thampoe, Basti [facility] Stephane POC GLUCOSE 2021-04-09 13:34:00 Thampoe, Basti [facility] Stephane XR CHEST 1 VW PORTABLE 2021-04-09 10:39:00 Dwain Morejon [facility] BASIC METABOLIC PANEL 2021-04-09 09:29:00 Dwain Morejon [facility] HC COMPLETE BLD COUNT 2021-04-09 09:29:00 [facility] W/AUTO DIFF [facility] MAGNESIUM LEVEL 2021-04-09 09:29:00 [facility] PHOSPHORUS LEVEL 2021-04-09 09:29:00 [facility] IONIZED CALCIUM 2021-04-09 09:29:00 [facility] PROTHROMBIN TIME WITH INR 2021-04-09 09:29:00 [facility] Ann emerson [facility] ESTIMATED GFR 2021-04-09 09:29:00 Dwain Morejon [facility] POC GLUCOSE 2021-04-09 01:22:00 Thampoe, Basti [facility] Stephane POC GLUCOSE 2021-04-08 22:43:00 Thampoe, Basti [facility] Stephane POC GLUCOSE 2021-04-08 18:04:00 Thampoe, Basti [facility] Stephane POC GLUCOSE 2021-04-08 13:35:00 Thampoe, Basti [facility] spital Stephane XR CHEST 1 VW PORTABLE 2021-04-08 11:26:37 Dwain Morejon [facility] COVID-19 ANTI-SPIKE IGG 2021-04-08 08:18:00 Pedrito Lindsey [facility] ANTIBODY TITER Rambo COVID-19 SEROLOGY PATIENT 2021-04-08 08:18:00 Pedrito Lindsey [facility] SURVEILLANCE [place] BASIC METABOLIC PANEL 2021-04-08 08:18:[address] [facility] HC COMPLETE BLD COUNT 2021-04-08 08:18:[address] [facility] W/AUTO DIFF MAGNESIUM LEVEL 2021-04-08 08:18:00 Cezar Davis Ho spital PHOSPHORUS LEVEL 2021-04-08 08:18:00 Cezar Davis H ospital IONIZED CALCIUM 2021-04-08 08:18:00 Cezar Davis spital ESTIMATED GFR 2021-04-08 08:18:00 Cezar Davis spital SMEAR REVIEW 2021-04-08 08:18:00 Cezar Davis Ho spital POC GLUCOSE 2021-04-08 05:34:00 Forest Mcmahon Ho spital Stephane TRANSFUSE RED BLOOD CELLS 2021-04-08 04:30:00 [facility] HEMOGLOBIN & HEMATOCRIT 2021-04-08 03:31:00 [facility] SMEAR REVIEW 2021-04-08 03:31:00 Cezar Davis spital POC GLUCOSE 2021-04-08 01:36:00 Forest Mcmahon spital Stephane POC GLUCOSE 2021-04-07 23:21:00 Forest Mcmahon Ho spital Stephane HC COMPLETE BLD COUNT 2021-04-07 20:24:00 Keira Valdez [facility] W/AUTO DIFF Ginny Marta PHOSPHORUS LEVEL 2021-04-07 20:24:00 Mert Mae Si H ospital IONIZED CALCIUM 2021-04-07 20:24:00 Mert Mae Si spital BASIC METABOLIC PANEL 2021-04-07 20:24:00 Mert Mae [facility] MAGNESIUM LEVEL 2021-04-07 20:24:00 Mert Mae Si Ho spital ESTIMATED GFR 2021-04-07 20:24:00 Mert Mae Si Ho spital POC GLUCOSE 2021-04-07 20:11:00 Thampoe, Basvirgil [facility] Ho spital Stephane POC GLUCOSE 2021-04-07 18:20:00 Thampoe, Basti [facility] sp[facility] Stephane POC GLUCOSE 2021-04-07 17:22:00 Thampoe, Basvirgil [facility] sp[facility] Stephane IONIZED CALCIUM 2021-04-07 14:34:00 William Enriquez H ospital POC GLUCOSE 2021-04-07 14:25:00 ThampoeForest Ho spital Stephane POC GLUCOSE 2021-04-07 12:09:00 YousifmpForest patel Ho spital Stephane ARTERIAL BLOOD GAS 2021-04-07 11:59:00 [facility]ON[facility] CALCI[facility], ARTERIAL 2021-04-07 11:59:00 Zoe [facility] BASIC METABOLIC PANEL 2021-04-07 11:58:00 Zoe [facility] HC COMPLETE BLD COUNT 2021-04-07 11:58:00 Zoe [facility] W/AUTO DIFF MAGNESIUM LEVEL 2021-04-07 11:58:00 William Enriquez ospital PROTHROMBIN TIME WITH INR 2021-04-07 11:58:00 Zoe [facility] ESTIMATED GFR 2021-04-07 11:58:00 William Enriquez ospital SMEAR REVIEW 2021-04-07 11:58:00 William Enriquez ospital POC GLUCOSE 2021-04-07 11:13:00 Forest Mcmahontal Stephane XR CHEST 1 VW PORTABLE 2021-04-07 11:07:41 Dw[facility]jon [facility] [facility] POC GLUCOSE 2021-04-07 10:08:00 ThaForest lopez spital Stephane POC GLUCOSE 2021-04-07 09:21:00 ThalorettaoeForest Ho spital Stephane TRANSFUSE RED BLOOD CELLS 2021-04-07 09:15:00 [facility] 2021-04-07 09:09:00 [facility] POC GLUCOSE 2021-04-07 08:07:00 ThaForest lopez spital Stephane BASIC METABOLIC PANEL 2021-04-07 08:06:00 Dwain Morejon [facility] HC COMPLETE BLD COUNT 2021-04-07 08:06:00 [facility]oe [facility] W/AUTO DIFF ARTERIAL BLOOD GAS 2021-04-07 08:06:00 Zoe [facility] MAGNESIUM LEVEL 2021-04-07 08:06:00 Zoe [facility] ospital PHOSPHORUS LEVEL 2021-04-07 08:06:00 Zoe [facility] ESTIMATED GFR 2021-04-07 08:06:00 Jean-Pierre [facility] IONIZED CALCIUM, ARTERIAL 2021-04-07 08:06:00 William Enriquez [facility] POC GLUCOSE 2021-04-07 07:01:00 ThaForest lopez spital Stephane POC GLUCOSE 2021-04-07 05:58:00 ThaForest lopez spital Stephane ARTERIAL BLOOD GAS 2021-04-07 04:53:00 [facility] 2021-04-07 04:43:00 Forest Mcmahon spital Stephane HEMOGLOBIN & HEMATOCRIT 2021-04-07 04:19:00 William Enriqeuz [facility] BASIC METABOLIC PANEL 2021-04-07 04:19:00 Zoe [facility] MAGNESIUM LEVEL 2021-04-07 04:19:00 William Enriquez [facility] ospital PHOSPHORUS LEVEL 2021-04-07 04:19:00 Zoe [facility] IONIZED CALCIUM 2021-04-07 04:19:00 [facility] ESTIMATED GFR 2021-04-07 04:19:00 Zoe [facility] ospital POC GLUCOSE 2021-04-07 03:29:00 Thampamanda, Forest Torres Ho spital Stephane ARTERIAL BLOOD GAS 2021-04-07 02:52:00 [facility] POC GLUCOSE 2021-04-07 02:31:00 Thampoe, Forest Torres Ho spital Stephane POC GLUCOSE 2021-04-07 01:30:00 Michelle, Forest Torres Ho spital Stephane XR ABDOMEN 1 VW PORTABLE 2021-04-06 23:09:04 [facility] Mert [facility] XR CHEST 1 VW PORTABLE 2021-04-06 23:08:10 [facility] 12-LEAD 2021-04-06 23:00:52 Linda Nolan spital PROTHROMBIN TIME WITH INR 2021-04-06 22:37:00 [facility] THROMB[facility]LASTIN 2021-04-06 22:37:00 [facility] TIME (PTT[facility] POC GLUCOSE 2021-04-06 22:35:00 ThaForest lopez spital Stephane ARTERIAL BLOOD GAS 2021-04-06 22:33:00 Jean-Pierre Dwain [facility] IONIZED CALCIUM, ARTERIAL 2021-04-06 22:33:00 [facility] BASIC METABOLIC PANEL 2021-04-06 22:32:00 Dwain Morejon Jan [facility] HC COMPLETE BLD COUNT 2021-04-06 22:32:00 Dwain Morejon Jan [facility] W/AUTO DIFF MAGNESIUM LEVEL 2021-04-06 22:32:00 Jean-Pierre [facility] PHOSPHORUS LEVEL 2021-04-06 22:32:00 Jean-Pierre Dwain Jan [facility] ESTIMATED GFR 2021-04-06 22:32:00 Jean-Pierre [facility] ACTIVATED CLOTTING TIME 2021-04-06 21:51:00 [facility] Stephane POC BLOOD GAS, ARTERIAL 2021-04-06 21:33:00 [facility] AND DONNA Calderón TRANSFUSE PLATELET 2021-04-06 21:28:00 Pedrito Espinoza [facility] PHERESIS TRANSFUSE FRESH FROZEN 2021-04-06 21:06:00 Pedrito Espinoza [facility] PLASMA ACTIVATED CLOTTING TIME 2021-04-06 21:01:00 [facility] Stephane POC BLOOD GAS, ARTERIAL 2021-04-06 20:50:00 [facility] AND [facility]ane TRANSFUSE RED BLOOD CELLS 2021-04-06 20:41:00 [facility] 2021-04-06 20:38:00 Mejia, [facility] spital PROTHROMBIN TIME WITH INR 2021-04-06 20:38:00 [facility] FIBRINOGEN 2021-04-06 20:38:00 Mejia, [facility] spital PARTIAL THROMBOPLASTIN 2021-04-06 20:38:00 [facility], [facility] TIME (PTT) ACTIVATED CLOTTING TIME 2021-04-06 20:31:00 [facility] Stephane ACTIVATED CLOTTING TIME 2021-04-06 20:01:00 [facility] Stephane POC BLOOD GAS, ARTERIAL 2021-04-06 19:59:00 [facility] AND LYTES Stephane ACTIVATED CLOTTING TIME 2021-04-06 19:32:00 [facility] Stephane POC BLOOD GAS, ARTERIAL 2021-04-06 19:29:00 [facility] AND LYTES Stephane TRANSFUSE RED BLOOD CELLS 2021-04-06 19:19:00 Pedrito Espinoza [facility] ARTERIAL BLOOD GAS 2021-04-06 19:03:00 Mejia, [facility] HEMOGLOBIN, SYRINGE 2021-04-06 19:03:00 [facility], [facility] ACTIVATED CLOTTING TIME 2021-04-06 19:02:00 [facility] Stephane POC BLOOD GAS, ARTERIAL 2021-04-06 18:59:00 [facility] AND LYTES Stephane POC BLOOD GAS, ARTERIAL 2021-04-06 18:31:00 [facility] RED BLOOD CELLS 2021-04-06 18:04:00 Pedrito Espinoza [facility] POC BLOOD GAS, ARTERIAL 2021-04-06 18:01:00 [facility] AND [facility] Stephane ACTIVATED CLOTTING TIME 2021-04-06 17:50:00 [facility] Stephane POC BLOOD GAS, ARTERIAL 2021-04-06 16:13:00 [facility] ACTIVATED CLOTTING TIME 2021-04-06 16:01:00 [facility] Stephane ANESTHESIA MARIE 2021-04-06 15:37:02 NolanRosario Ho spital Willy PA CATHETER 2021-04-06 15:36:27 NolanRosario Ho spital Willy CENTRAL LINE 2021-04-06 15:35:30 NolanRosario Ho spital Willy CENTRAL LINE 2021-04-06 15:34:57 Nolan, Rosario Torres Ho spital Willy POC BLOOD GAS, ARTERIAL 2021-04-06 14:59:00 [facility] AND [facility] Stephane ARTERIAL LINE 2021-04-06 14:50:20 Pedrito Espinoza H ospital TRANSFUSE RED BLOOD CELLS 2021-04-06 14:38:00 Pedrito Espinoza [facility] MN AN ELECTIVE 2021-04-06 14:25:00 Pedrito Espinoza H ospital ENDOTRACHEAL AIRWAY CABG, WITH ENDOSCOPIC VEIN 2021-04-06 14:07:00 Dwain Morejon in [facility] HARVESTING POC PANEL 2021-04-06 12:12:00 Dwain Morejon [facility] CABG, WITH ENDOSCOPIC VEIN 2021-04-03 13:30:00 Dwain Morejon in [facility] HARVESTING URINE CULTURE 2021-03-25 17:10:00 Aston Coats [facility] XR CHEST 2 VW 2021-03-25 16:48:19 [facility] TYPE AND SCREEN 2021-03-25 16:00:00 [facility] HC COMPLETE BLD COUNT 2021-03-25 16:00:00 [facility] W/AUTO DIFF BASIC METABOLIC PANEL 2021-03-25 16:00:00 [facility] PROTHROMBIN TIME WITH INR 2021-03-25 16:00:00 Cintia Coats [facility] PARTIAL THROMBOPLASTIN 2021-03-25 16:00:00 [facility] TIME (PTT) URINALYSIS SCREEN AND 2021-03-25 16:00:00 [facility] MICROSCOPY, WITH REFLEX TO CULTURE D-DIMER 2021-03-25 16:00:00 Dwain Morejon Jan [facility] ESTIMATED GFR 2021-03-25 16:00:00 [facility] PREPARE RBC 2021-03-25 16:00:00 [facility] PREPARE FRESH FROZEN 2021-03-25 16:00:00 [facility] PLASMA PREPARE PLATELET PHERESIS 2021-03-25 16:00:00 Cintia Coats [facility] COVID-19 QUALITATIVE 2021-03-03 15:16:00 Jayant Arambula [facility] RT-PCR COVID-19 QUALITATIVE 2021-02-19 19:44:00 Dwain Morejon [facility] RT-PCR XR CHEST 2 VW 2021-02-19 19:34:25 Dwain Morejon [facility] URINE CULTURE 2021-02-19 19:24:00 Dwain Morejon [facility] ECG PRE/POST OP 2021-02-19 18:49:51 Dwain Morejon [facility] URINALYSIS SCREEN AND 2021-02-19 18:49:00 Dwain Morejon [facility] MICROSCOPY, WITH REFLEX TO CULTURE MRSA PCR 2021-02-19 18:48:00 Jean-Pierre, [facility] LIPID PANEL 2021-02-19 18:43:00 [facility] HEMOGLOBIN A1C 2021-02-19 18:43:00 Jean-Pierre [facility] PARTIAL THROMBOPLASTIN 2021-02-19 18:43:00 Dwain [facility] TIME (PTT) PROTHROMBIN TIME WITH INR 2021-02-19 18:43:00 [facility] COMPLETE BLD COUNT 2021-02-19 18:43:00 Dwain Morejon [facility] W/AUTO DIFF TYPE AND SCREEN 2021-02-19 18:43:00 Jean-Pierre [facility] COMPREHENSIVE METABOLIC 2021-02-19 18:43:00 Dwain Morejon [facility] PANEL ESTIMATED GFR 2021-02-19 18:43:00 [facility] MAGNESIUM LEVEL 2021-02-19 18:43:00 [facility] ARTERIAL BLOOD GAS 2021-02-19 18:24:00 Dwain Morejon [facility] US CAROTID DUPLEX 2021-02-02 19:14:00 Jean-Pierre Dwain [facility] BILATERAL CV CATH EXTERNAL STUDY 2021-01-08 20:39:13 Dwain Morejon [facility] POC GLUCOSE 2020-08-07 20:42:00 [facility] HEPATITIS B SURFACE AB, 2020-08-07 17:32:00 Milton [facility] QUANTITATIVE HEPATITIS B SURFACE 2020-08-07 17:32:[address] [facility] ANTIGEN POC GLUCOSE 2020-08-07 16:08:00 Janak Skinner [facility] spital Shadaab POC GLUCOSE 2020-08-07 12:56:00 [facility] HC COMPLETE BLD COUNT 2020-08-07 09:03:00 [facility] BASIC METABOLIC PANEL 2020-08-07 09:03:00 [facility] ESTIMATED GFR 2020-08-07 09:03:00 NolanPhankatarina Madyson [facility]spital LACTIC ACID LEVEL, SEPSIS 2020-08-07 03:00:00 [facility] REPEAT 2X EVERY 3 HOURS POC GLUCOSE 2020-08-07 01:36:00 Janak Skinner LACTIC ACID LEVEL, SEPSIS 2020-08-07 00:03:00 Nolan [facility] - NOW AND REPEAT 2X EVERY 3 HOURS POC GLUCOSE 2020-08-06 23:14:00 Janak Skinner Shaconnie COVID-19 QUALITATIVE 2020-08-06 22:43:00 [facility] RT-PCR ECG ED PRELIMINARY 2020-08-06 18:13:40 [facility] INTERPRETATION ECG 12-LEAD 2020-08-06 18:01:17 An katarina Villatorong [facility]sp[facility] XR CHEST 1 VW PORTABLE 2020-08-06 18:00:31 [facility] BLOOD [facility], AEROBIC & 2020-08-06 17:41:00 [facility] ANA[facility]OBIC BLOOD CULTURE, AEROBIC & 2020-08-06 17:20:00 [facility] ANAEROBIC LACTIC ACID LEVEL, SEPSIS 2020-08-06 17:17:00 [facility] - NOW AND REPEAT 2X EVERY 3 HOURS COMPREHENSIVE METABOLIC 2020-08-06 17:17:00 [facility] HC COMPLETE BLD COUNT 2020-08-06 17:17:00 [facility] W/AUTO DIFF ESTIMATED GFR 2020-08-06 17:17:00 [facility] Holiness H ospital CT HEAD WO CONTRAST 2020-08-06 16:38:40 [facility] POC GLUCOSE 2020-07-19 16:46:00 Janak Skinner Shadaab POC GLUCOSE 2020-07-19 12:27:00 Moosavi, Janak [facility] Shadaab BASIC METABOLIC PANEL 2020-07-19 11:10:00 Milton, [facility] ESTIMATED GFR 2020-07-19 11:10:00 Milton, [facility] POC GLUCOSE 2020-07-19 01:53:00 Moosavi, Janak [facility] sp[facility] Shadaab POC GLUCOSE 2020-07-18 22:56:00 Moosavi, Janak [facility] Shadaab POC GLUCOSE 2020-07-18 22:07:00 Moosavi, Janak [facility] Shadaab POC GLUCOSE 2020-07-18 17:40:00 Moosavi, Janak [facility] Shadaab XR CHEST 1 VW PORTABLE 2020-07-18 16:37:09 Milton, [facility] POC GLUCOSE 2020-07-18 12:54:00 Moosavi, Janak [facility] Shadaab TROPONIN 2020-07-18 04:05:00 AngelaStacy Ho spital Lemus POC GLUCOSE 2020-07-18 01:55:00 Moosavi, Janak [facility] Shadaab TROPONIN 2020-07-17 23:08:00 AngelaStacy Holiness Ho spital Lemus POC GLUCOSE 2020-07-17 21:33:00 Moosavi, Janak [facility] Shadaab TROPONIN 2020-07-17 20:35:00 Stacy Miller spital Lemus ECG 12-LEAD 2020-07-17 18:59:06 Moosavi, Janak [facility] Shadaab POC GLUCOSE 2020-07-17 16:49:00 Moosavi, Janak [facility] sp[facility] Shadaab POC GLUCOSE 2020-07-17 12:39:00 Moosavi, Janak [facility] sp[facility] Shadaab BASIC METABOLIC PANEL 2020-07-17 09:54:00 Milton, [facility] HC COMPLETE BLD COUNT 2020-07-17 09:54:00 [facility], [facility] W/AUTO DIFF ESTIMATED GFR 2020-07-17 09:54:00 Milton, Janak [facility] POC GLUCOSE 2020-07-17 01:12:00 Moosavi, Janak Holiness [facility] spital Shadaab POC GLUCOSE 2020-07-16 22:31:00 Moosavi, Janak [facility] sp[facility] Shadaab POC GLUCOSE 2020-07-16 18:43:00 Moosavi, Janak [facility] spital Shadaab [place] AN ELECTIVE 2020-07-16 17:47:21 Micheline Pruett [facility] ENDOTRACHEAL AIRWAY INSERTION, CATHETER, 2020-07-16 17:15:00 [facility] DIALYSIS, PERITONEAL, LAPAROSCOPIC LYSIS, ADHESIONS, 2020-07-16 17:15:00 [facility] LAPAROSCOPIC POC PANEL 2020-07-16 17:01:00 Moosavi, Janak [facility] sp[facility] Shadaab POC GLUCOSE 2020-07-16 13:11:00 Moosavi, Janak [facility] sp[facility] Shadaab POC GLUCOSE 2020-07-16 01:59:00 Moosavi, Janak [facility] Shadaab POC GLUCOSE 2020-07-15 22:42:00 Moosavi, Janak Hol[facility] sp[facility] Shadaab POC GLUCOSE 2020-07-15 16:29:00 Moosavi, Janak Hol[facility] sp[facility] Shadaab POC GLUCOSE 2020-07-15 13:15:00 Moosavi, Janak [facility] sp[facility] Shadaab BASIC METABOLIC PANEL 2020-07-15 08:40:00 Milton, Janak Ather [facility] ESTIMATED GFR 2020-07-15 08:40:00 Milton, Janak [facility] POC GLUCOSE 2020-07-15 01:23:00 Moosavi, Janak Hol[facility] spital Shadaab POC GLUCOSE 2020-07-14 20:46:00 Moosavi, Janak Hol[facility] sp[facility] Shadaab POC GLUCOSE 2020-07-14 18:29:00 Moosavi, Janak [facility] spital Shadaab IR TUNNELED DIALYSIS 2020-07-14 16:40:34 Milton, [facility] CATHETER PLACEMENT US GUIDED VASCULAR ACCESS 2020-07-14 16:31:38 Milton [facility] TTE COMPLETE, WO CONTRAST, 2020-07-14 15:20:13 Grabiel [facility] W DOPPLER ([id number]) POC GLUCOSE 2020-07-14 13:18:00 MoosaJanak elizabeth [facility] spital Shadaab PROTHROMBIN TIME WITH INR 2020-07-14 13:04:00 Milton [facility] ECG 12-LEAD 2020-07-14 10:47:20 MoosaJanak elizabeth [facility] spital Shadaab ECG 12-LEAD 2020-07-14 10:46:38 Ursula [facility] ospital HEMOGLOBIN & HEMATOCRIT 2020-07-14 10:25:00 Batsheva Vergara [facility] BASIC METABOLIC PANEL 2020-07-14 10:25:00 Milton [facility] ESTIMATED GFR 2020-07-14 10:25:00 Milton [facility] POC GLUCOSE 2020-07-14 02:05:00 Moosavi Janak [facility] spital Shadaab POC GLUCOSE 2020-07-13 21:33:00 Moosavi [facility] spital Shadaab HEPATITIS C ANTIBODY 2020-07-13 20:56:00 Milton [facility] HC COMPLETE BLD COUNT 2020-07-13 17:53:00 Milton [facility] W/AUTO DIFF HEPATITIS B SURFACE 2020-07-13 17:53:00 [facility] B SURFACE 2020-07-13 [facility]:53[facility] CORE ANTIBODY 2020-07-13 17:53:00 [facility], [facility] TOTAL SMEAR REVIEW 2020-07-13 17:53:00 [facility] 2020-07-13 16:34:00 Moosavi [facility] spital Shadaab POC GLUCOSE 2020-07-13 13:42:00 Moosavi, Janak [facility] spital Shadaab BASIC METABOLIC PANEL 2020-07-13 08:50:00 Milton, [facility] HC COMPLETE BLD COUNT 2020-07-13 08:50:00 Milton, [facility] W/AUTO DIFF ESTIMATED GFR 2020-07-13 08:50:00 Milton, [facility] POC GLUCOSE 2020-07-13 02:26:00 Moosavi, Janak [facility] spital Shadaab POC GLUCOSE 2020-07-13 01:09:00 Moosavi, Janak Hol[facility] spital Shadaab POC GLUCOSE 2020-07-12 22:11:00 Moosavi, Janak [facility] spital Shadaab PARATHYROID HORMONE 2020-07-12 17:31:00 Milton, [facility] URIC ACID LEVEL 2020-07-12 17:31:00 Milton, [facility] POC GLUCOSE 2020-07-12 16:47:00 Moosavi, Janak Hol[facility] spital Shadaab POC GLUCOSE 2020-07-12 12:35:00 Moosavi, Janak Hol[facility] spital Shadaab HC COMPLETE BLD COUNT 2020-07-12 09:33:00 Manuela Braga [facility] W/AUTO DIFF Sivan COMPREHENSIVE METABOLIC 2020-07-12 09:33:00 Manuela Braga [facility] PANEL Sivan THYROID STIMULATING 2020-07-12 09:33:00 Jeff Sweet [facility] HORMONE ESTIMATED GFR 2020-07-12 09:33:00 Manuela Braga H ospital Sivan TROPONIN 2020-07-12 02:45:00 Lakhwinder Vásquez Ho spital US RENAL 2020-07-12 01:56:43 [place], [facility] POC GLUCOSE 2020-07-12 01:15:00 Moosavi, Janak Holiness Ho spital Shadaab COVID-19 QUALITATIVE 2020-07-12 00:24:00 Manuela Braga [facility] RT-PCR Sivan HC COMPLETE BLD COUNT 2020-07-12 00:24:00 [facility] W/AUTO DIFF FERRITIN LEVEL 2020-07-12 00:24:00 [facility] URIC ACID LEVEL 2020-07-12 00:24:00 [facility] TOTAL IRON BINDING 2020-07-12 00:24:00 [facility] PARATHYROID HORMONE 2020-07-12 00:24:00 [facility], [facility] PROTEIN, URINE, RANDOM 2020-07-12 00:24:00 [facility] CREATININE LEVEL, URINE, 2020-07-12 00:24:00 [facility] RANDOM VITAMIN D 25 HYDROXY LEVEL 2020-07-12 00:24:00 [facility], [facility] URINE PROTEIN 2020-07-12 00:24:00 [facility] ELECTROPHORESIS, RANDOM SERUM ELECTROPHORESIS 2020-07-12 00:24:00 [facility] KAPPA LAMBDA FREE LIGHT 2020-07-12 00:24:00 [facility] CHAIN WITH RATIO URINE PROTEIN/CREATININE 2020-07-12 00:23:00 [facility] RATIO, RANDOM TROPONIN 2020-07-11 23:42:00 Lakhwinder Vásquez spital XR CHEST 1 VW PORTABLE 2020-07-11 22:36:14 Manuela Braga [facility] Sivan ECG 12-LEAD 2020-07-11 22:15:53 MoosaJanak elizabeth Ho spital Shadaab ECG 12-LEAD 2020-07-11 22:14:36 Motonja, Janak Hol[facility] spital Shadaab ECG 12-LEAD 2020-07-11 22:13:55 [facility] ECG ED PRELIMINARY 2020-07-11 21:39:29 [facility] Sivan HC COMPLETE BLD COUNT 2020-07-11 21:36:00 [place], [facility] W/AUTO DIFF Sivan COMPREHENSIVE METABOLIC 2020-07-11 21:36:00 Maria Luz Manuela [facility] PANEL Sivan B NATRIURETIC PEPTIDE 2020-07-11 21:36:00 Maria Luz [facility] Sivan ESTIMATED GFR 2020-07-11 21:36:00 Manuela Braga H ospital Sivan TROPONIN 2020-07-11 20:45:00 Lakhwinder Vásquez spital ECG 12-LEAD 2020-07-11 20:34:56 Lakhwinder Vásquez spital Plan of Care Planned Activity Planned Date Details Comments Source Future Scheduled 2024-11-23 DTAP/TDAP/TD VACCINES [facility] 00:[facility]:00 (2 - Td or Tdap) [code Medic al Center = DTAP/TDAP/TD VACCINES (2 - Td or Tdap)] Future Scheduled 2024-11-23 DTAP/TDAP/TD VACCINES [facility] 00:00:00 (2 - Td or Tdap) [code Medic al Center = DTAP/TDAP/TD VACCINES (2 - Td or Tdap)] Future Scheduled 2024-11-23 DTAP/TDAP/TD VACCINES [facility] 00:00:00 (2 - Td or Tdap) [code Medic al Center = DTAP/TDAP/TD VACCINES (2 - Td or Tdap)] Future Scheduled 2024-11-23 DTAP/TDAP/TD VACCINES [facility] 00:00:00 (2 - Td or Tdap) [code Medic al Center = DTAP/TDAP/TD VACCINES (2 - Td or Tdap)] Future Scheduled 2024-11-23 DTAP/TDAP/TD VACCINES [facility] 00:00:00 (2 - Td or Tdap) [code Medic al Center = DTAP/TDAP/TD VACCINES (2 - Td or Tdap)] Future Scheduled 2024-11-23 DTAP/TDAP/TD VACCINES [facility] 00:00:00 (2 - Td or Tdap) [code Medic al Center = DTAP/TDAP/TD VACCINES (2 - Td or Tdap)] Future Scheduled 2024-11-23 DTAP/TDAP/TD VACCINES I [facility] Test 00:00:00 (2 - Td or Tdap) [code Medic al Center = DTAP/TDAP/TD VACCINES (2 - Td or Tdap)] Future Scheduled 2022-02-12 65+ [facility]OCOCCAL [facility] 09:40:19 VACCINE (1 - PCV) [code = 65+ PNEUMOCOCCAL VACCINE (1 - PCV)] Future Scheduled 2022-02-12 SHINGLES VACCINES (1 Met [facility] Test 09:40:19 of 2) [code = SHINGLES VACCINES (1 of 2)] Future Scheduled 2022-02-12 COVID-19 VACCINE (3 - [facility] Test 09:40:19 Booster for Pfizer series) [code = COVID-19 VACCINE (3 - Booster for Pfizer series)] Future Scheduled 2022-02-12 INFLUENZA VACCINE Method [facility] Test 09:40:19 [code = INFLUENZA VACCINE] Future Scheduled 2021-12-21 HEPATITIS B VACCINES Met [facility] Test 11:19:28 (1 of 3 - 3-dose series) [code = HEPATITIS B VACCINES (1 of 3 - 3-dose series)] Future Scheduled 2021-12-21 65+ [facility]OCOCCAL [facility] Test 11:19:28 VACCINE (1 - PCV) [code = 65+ PNEUMOCOCCAL VACCINE (1 - PCV)] Future Scheduled 2021-12-21 SHINGLES VACCINES (1 Met [facility] Test 11:19:28 of 2) [code = SHINGLES VACCINES (1 of 2)] Future Scheduled 2021-12-21 COVID-19 VACCINE (3 - [facility] Test 11:19:28 Booster for Pfizer series) [code = COVID-19 VACCINE (3 - Booster for Pfizer series)] Future Scheduled 2021-12-21 INFLUENZA VACCINE Method [facility] Hospital Test 11:19:28 [code = INFLUENZA VACCINE] Future Scheduled 2021-12-21 HEPATITIS B VACCINES Met [facility] Test 11:19:28 (1 of 3 - 3-dose series) [code = HEPATITIS B VACCINES (1 of 3 - 3-dose series)] Future Scheduled 2021-12-21 65+ PNEUMOCOCCAL [facility] Test 11:19:28 VACCINE (1 - PCV) [code = 65+ PNEUMOCOCCAL VACCINE (1 - PCV)] Future Scheduled 2021-12-21 SHINGLES VACCINES (1 Met [facility] Test 11:19:28 of 2) [code = SHINGLES VACCINES (1 of 2)] Future Scheduled 2021-12-21 COVID-19 VACCINE (3 - [facility] Test 11:19:28 Booster for Pfizer series) [code = COVID-19 VACCINE (3 - Booster for Pfizer series)] Future Scheduled 2021-12-21 INFLUENZA VACCINE [facility] Test 11:19:28 [code = INFLUENZA VACCINE] Future Scheduled 2021-12-21 HEPATITIS B VACCINES Met [facility] Test 11:19:28 (1 of 3 - 3-dose series) [code = HEPATITIS B VACCINES (1 of 3 - 3-dose series)] Future Scheduled 2021-12-21 65+ [facility]CCAL [facility]28 VACCINE (1 - PCV) [code = 65+ PNEUMOCOCCAL VACCINE (1 - PCV)] Future Scheduled 2021-12-21 SHINGLES VACCINES (1 Met [facility] Test 11:19:28 of 2) [code = SHINGLES VACCINES (1 of 2)] Future Scheduled 2021-12-21 COVID-19 VACCINE (3 - Me [facility] Test 11:19:28 Booster for Pfizer series) [code = COVID-19 VACCINE (3 - Booster for Pfizer series)] Future Scheduled 2021-12-21 INFLUENZA VACCINE Method [facility] Test 11:19:28 [code = INFLUENZA VACCINE] Future Scheduled 2021-12-21 HEPATITIS B VACCINES Met [facility] Test 11:19:28 (1 of 3 - 3-dose series) [code = HEPATITIS B VACCINES (1 of 3 - 3-dose series)] Future Scheduled 2021-12-21 65+ [facility] VACCINE (1 - PCV) [code = 65+ PNEUMOCOCCAL VACCINE (1 - PCV)] Future Scheduled 2021-12-21 SHINGLES VACCINES (1 Met [facility] Test 11:19:28 of 2) [code = SHINGLES VACCINES (1 of 2)] Future Scheduled 2021-12-21 COVID-19 VACCINE (3 - [facility] 11:19:28 Booster for Pfizer series) [code = COVID-19 VACCINE (3 - Booster for Pfizer series)] Future Scheduled 2021-12-21 INFLUENZA VACCINE Method [facility] Test 11:19:28 [code = INFLUENZA VACCINE] Future Scheduled 2021-12-10 HEPATITIS B VACCINES Met [facility] Test 15:42:41 (1 of 3 - 3-dose series) [code = HEPATITIS B VACCINES (1 of 3 - 3-dose series)] Future Scheduled 2021-12-10 65+ PNEUMOCOCCAL [facility] Test 15:42:41 VACCINE (1 - PCV) [code = 65+ PNEUMOCOCCAL VACCINE (1 - PCV)] Future Scheduled 2021-12-10 SHINGLES VACCINES (1 Met [facility] Test 15:42:41 of 2) [code = SHINGLES VACCINES (1 of 2)] Future Scheduled 2021-12-10 COVID-19 VACCINE (3 - Me [facility] Test 15:42:41 Booster for Pfizer series) [code = COVID-19 VACCINE (3 - Booster for Pfizer series)] Future Scheduled 2021-12-10 INFLUENZA VACCINE Method [facility] Test 15:42:41 [code = INFLUENZA VACCINE] Future Scheduled 2021-12-10 HEPATITIS B VACCINES Met [facility] Test 15:42:41 (1 of 3 - 3-dose series) [code = HEPATITIS B VACCINES (1 of 3 - 3-dose series)] Future Scheduled 2021-12-10 65+ [facility] 15:42:41 VACCINE (1 - PCV) [code = 65+ PNEUMOCOCCAL VACCINE (1 - PCV)] Future Scheduled 2021-12-10 SHINGLES VACCINES (1 Met [facility] Test 15:42:41 of 2) [code = SHINGLES VACCINES (1 of 2)] Future Scheduled 2021-12-10 COVID-19 VACCINE (3 - Me [facility] Test 15:42:41 Booster for Pfizer series) [code = COVID-19 VACCINE (3 - Booster for Pfizer series)] Future Scheduled 2021-12-10 INFLUENZA VACCINE Method [facility] Test 15:42:41 [code = INFLUENZA VACCINE] Future Scheduled 2021-12-10 HEPATITIS B VACCINES Met [facility] Test 15:42:41 (1 of 3 - 3-dose series) [code = HEPATITIS B VACCINES (1 of 3 - 3-dose series)] Future Scheduled 2021-12-10 65+ PNEUMOCOCCAL [facility] Test 15:42:41 VACCINE (1 - PCV) [code = 65+ PNEUMOCOCCAL VACCINE (1 - PCV)] Future Scheduled 2021-12-10 SHINGLES VACCINES (1 Met [facility] Test 15:42:41 of 2) [code = SHINGLES VACCINES (1 of 2)] Future Scheduled 2021-12-10 COVID-19 VACCINE (3 - [facility] Test 15:42:41 Booster for Pfizer series) [code = COVID-19 VACCINE (3 - Booster for Pfizer series)] Future Scheduled 2021-12-10 INFLUENZA VACCINE Method [facility] Hospital Test 15:42:41 [code = INFLUENZA VACCINE] Future Scheduled 2021-12-10 HEPATITIS B VACCINES Met [facility] Test 15:42:41 (1 of 3 - 3-dose series) [code = HEPATITIS B VACCINES (1 of 3 - 3-dose series)] Future Scheduled 2021-12-10 65+ PNEUMOCOCCAL [facility] Test 15:42:41 VACCINE (1 - PCV) [code = 65+ PNEUMOCOCCAL VACCINE (1 - PCV)] Future Scheduled 2021-12-10 SHINGLES VACCINES (1 Met [facility] Test 15:42:41 of 2) [code = SHINGLES VACCINES (1 of 2)] Future Scheduled 2021-12-10 COVID-19 VACCINE (3 - [facility] Test 15:42:41 Booster for Pfizer series) [code = COVID-19 VACCINE (3 - Booster for Pfizer series)] Future Scheduled 2021-12-10 INFLUENZA VACCINE Method [facility] Test 15:42:41 [code = INFLUENZA VACCINE] Future Scheduled 2021-11-13 HEPATITIS B VACCINES Met [facility] Test 12:46:56 (1 of 3 - 3-dose series) [code = HEPATITIS B VACCINES (1 of 3 - 3-dose series)] Future Scheduled 2021-11-13 65+ PNEUMOCOCCAL [facility] Test 12:46:56 VACCINE (1 - PCV) [code = 65+ PNEUMOCOCCAL VACCINE (1 - PCV)] Future Scheduled 2021-11-13 SHINGLES VACCINES (1 Met [facility] Test 12:46:56 of 2) [code = SHINGLES VACCINES (1 of 2)] Future Scheduled 2021-11-13 COVID-19 VACCINE (3 - [facility] Test 12:46:56 Booster for Pfizer series) [code = COVID-19 VACCINE (3 - Booster for Pfizer series)] Future Scheduled 2021-11-13 INFLUENZA VACCINE Method [facility] Test 12:46:56 [code = INFLUENZA VACCINE] Future Scheduled 2021-10-29 INFLUENZA VACCINE (#1) [facility] [code = INFLUENZA Medical Ce nter VACCINE (#1)] Future Scheduled 2021-10-29 INFLUENZA VACCINE (#1) [facility] 00:00:00 [code = INFLUENZA Medical Ce nter VACCINE (#1)] Future Scheduled 2021-10-29 INFLUENZA VACCINE (#1) [facility] 00:00:00 [code = INFLUENZA Medical Ce nter VACCINE (#1)] Future Scheduled 2021-10-29 INFLUENZA VACCINE (#1) [facility] 00:00:00 [code = INFLUENZA Medical Ce nter VACCINE (#1)] Future Scheduled 2021-10-29 INFLUENZA VACCINE (#1) [facility] 00:00:00 [code = INFLUENZA Medical Ce nter VACCINE (#1)] Future Scheduled 2021-10-29 INFLUENZA VACCINE (#1) [facility] 00:00:00 [code = INFLUENZA Medical Ce nter VACCINE (#1)] Future Scheduled 2021-10-29 INFLUENZA VACCINE (#1) [facility] 00:00:00 [code = INFLUENZA Medical Ce nter VACCINE (#1)] Future Scheduled 2021-03-31 65+ [facility]OCOCCAL [facility] Test 07:32:58 VACCINE (1 of 4 - PCV13) [code = 65+ PNEUMOCOCCAL VACCINE (1 of 4 - PCV13)] Future Scheduled 2021-03-31 SHINGLES VACCINES (#1) [facility] 07:32:58 [code = SHINGLES VACCINES (#1)] Future Scheduled 2021-03-31 INFLUENZA VACCINE Method [facility] Test 07:32:58 [code = INFLUENZA VACCINE] Future Scheduled 2021-03-31 COVID-19 [facility]ACCINE ([facility] 07:32:58 Booster for Pfizer series) [code = COVID-19 VACCINE (3 - Booster for Pfizer series)] Future Scheduled 2021-02-[address] [facility] Test 00:00:00 (12+) [code = Medical Center DEPRESSION SCREENING (12+)] Future Scheduled 2021-02-28 FALLS RISK SCREENING [facility] Test 00:00:00 [code = FALLS RISK Medical C enter SCREENING] Future Scheduled 2021-02-[address] [facility] Test 00:00:00 (12+) [code = Medical Center DEPRESSION SCREENING (12+)] Future Scheduled 2021-02-28 FALLS RISK SCREENING [facility] Test 00:00:00 [code = FALLS RISK Medical C enter SCREENING] Future Scheduled 2021-02-[address] [facility] Test 00:00:00 (12+) [code = Medical Center DEPRESSION SCREENING (12+)] Future Scheduled 2021-02-28 F[address]S RISK SCREENING [facility] Test 00:00:00 [code = FALLS RISK Medical C enter SCREENING] Future Scheduled 2021-02-[address] [facility] Test 00:00:00 (12+) [code = Medical Center DEPRESSION SCREENING (12+)] Future Scheduled 2021-02-28 F[address]S RISK SCREENING [facility] 00:00:00 [code = FALLS RISK Medical C enter SCREENING] Future Scheduled 2021-02-[address] [facility] Test 00:00:00 (12+) [code = Medical Center DEPRESSION SCREENING (12+)] Future Scheduled 2021-02-28 FALLS RISK SCREENING [facility] 00:00:00 [code = FALLS RISK Medical C enter SCREENING] Future Scheduled 2021-02-[address] [facility] Test 00:00:00 (12+) [code = Medical Center DEPRESSION SCREENING (12+)] Future Scheduled 2021-02-28 FALLS RISK SCREENING [facility] 00:00:00 [code = FALLS RISK Medical C enter SCREENING] Future Scheduled 2021-02-[address] [facility] Test 00:00:00 (12+) [code = Medical Center DEPRESSION SCREENING (12+)] Future Scheduled 2021-02-28 F[address]K SCREENING [facility] 00:00:00 [code = FALLS RISK Medical C enter SCREENING] Future Scheduled 2015-03-[address] [facility] 00:00:00 WELLNESS (YEAR 2 or Medical Center FIRST YEAR if no IPPE) [code = MEDICARE ANNUAL WELLNESS (YEAR 2 or FIRST YEAR if no IPPE)] Future Scheduled 2015-03-[address] [facility] 00:00:00 WELLNESS (YEAR 2 or Medical Center FIRST YEAR if no IPPE) [code = MEDICARE ANNUAL WELLNESS (YEAR 2 or FIRST YEAR if no IPPE)] Future Scheduled 2015-03-[address] [facility] 00:00:00 WELLNESS (YEAR 2 or Medical Center FIRST YEAR if no IPPE) [code = MEDICARE ANNUAL WELLNESS (YEAR 2 or FIRST YEAR if no IPPE)] Future Scheduled 2015-03-[address] [facility] 00:00:00 WELLNESS (YEAR 2 or Medical Center FIRST YEAR if no IPPE) [code = MEDICARE ANNUAL WELLNESS (YEAR 2 or FIRST YEAR if no IPPE)] Future Scheduled 2015-03-[address] [facility] 00:00:00 WELLNESS (YEAR 2 or Medical Center FIRST YEAR if no IPPE) [code = MEDICARE ANNUAL WELLNESS (YEAR 2 or FIRST YEAR if no IPPE)] Future Scheduled 2015-03-[address] [facility] 00:00:00 WELLNESS (YEAR 2 or Medical Center FIRST YEAR if no IPPE) [code = MEDICARE ANNUAL WELLNESS (YEAR 2 or FIRST YEAR if no IPPE)] Future Scheduled 2015-03-[address] [facility] 00:00:00 WELLNESS (YEAR 2 or Medical Center FIRST YEAR if no IPPE) [code = MEDICARE ANNUAL WELLNESS (YEAR 2 or FIRST YEAR if no IPPE)] Future Scheduled 2007 PNEUMOCOCCAL 65+ YRS [facility] Test 00:00:00 (1 - PCV) [code = Medical Ce nter PNEUMOCOCCAL 65+ YRS (1 - PCV)] Future Scheduled 2007 PNEUMOCOCCAL 65+ YRS [facility] Test 00:00:00 (1 - PCV) [code = Medical Ce nter PNEUMOCOCCAL 65+ YRS (1 - PCV)] Future Scheduled 2007 PNEUMOCOCCAL 65+ YRS [facility] Test 00:00:00 (1 - PCV) [code = Medical Ce nter PNEUMOCOCCAL 65+ YRS (1 - PCV)] Future Scheduled 2007 PNEUMOCOCCAL 65+ YRS [facility] Test 00:00:00 (1 - PCV) [code = Medical Ce nter PNEUMOCOCCAL 65+ YRS (1 - PCV)] Future Scheduled 2007 PNEUMOCOCCAL 65+ YRS [facility] Test 00:00:00 (1 - PCV) [code = Medical Ce nter PNEUMOCOCCAL 65+ YRS (1 - PCV)] Future Scheduled 2007 PNEUMOCOCCAL 65+ YRS [facility] Test 00:00:00 (1 - PCV) [code = Medical Ce nter PNEUMOCOCCAL 65+ YRS (1 - PCV)] Future Scheduled 2007 PNEUMOCOCCAL 65+ YRS [facility] Test 00:00:00 (1 - PCV) [code = Medical Ce nter PNEUMOCOCCAL 65+ YRS (1 - PCV)] Future Scheduled 1992 SHINGLES VACCINES ([address] [facility] 00:00:00 of 2) [code = SHINGLES Medic al Center VACCINES (1 of 2)] Future Scheduled 1992 SHINGLES VACCINES ([address] [facility] 00:00:00 of 2) [code = SHINGLES Medic al Center VACCINES (1 of 2)] Future Scheduled 1992 SHINGLES VACCINES ([address] [facility] 00:00:00 of 2) [code = SHINGLES Medic al Center VACCINES (1 of 2)] Future Scheduled 1992 SHINGLES VACCINES ([address] [facility] 00:00:00 of 2) [code = SHINGLES Medic al Center VACCINES (1 of 2)] Future Scheduled 1992 SHINGLES VACCINES ([address] [facility] 00:00:00 of 2) [code = SHINGLES Medic al Center VACCINES (1 of 2)] Future Scheduled 1992 SHINGLES VACCINES ([address] [facility] Test 00:00:00 of 2) [code = SHINGLES Medic al Center VACCINES (1 of 2)] Future Scheduled 1992 SHINGLES VACCINES ([address] [facility] Test 00:00:00 of 2) [code = SHINGLES Medic al Center VACCINES (1 of 2)] Future Scheduled 1960 HE[facility]ITIS C [facility]CRE[facility] 00:00:00 [code = HEPATITIS C Medical Center SCREENING] Future Scheduled 1960 HE[facility]ITIS C [facility] 00:00:00 [code = HEPATITIS C Medical Center SCREENING] Future Scheduled 1960 HEPATITIS C [facility]CRE[facility]ING [facility] 00:00:00 [code = HEPATITIS C Medical Center SCREENING] Future Scheduled 1960 HEPATITIS C [facility]ING [facility] 00:00:00 [code = HEPATITIS C Medical Center SCREENING] Future Scheduled 1960 HEPATITIS C [facility]ING [facility] 00:00:00 [code = HEPATITIS C Medical Center SCREENING] Future Scheduled 1960 HEPATITIS C [facility]CRE[facility]ING [facility] 00:00:00 [code = HEPATITIS C Medical Center SCREENING] Future Scheduled 1960 HEPATITIS C [facility]ING [facility] 00:00:00 [code = HEPATITIS C Medical Center SCREENING] Future Scheduled [address] [facility] Test 00:00:00 Counseling and Medical Cente r Screening (12+) [code = Tobacco Cessation Counseling and Screening (12+)] Future Scheduled 1942 COVID-19 VACCINE (#1) [facility] 00:00:00 [code = COVID-[address] VACCINE (#1)] Future Scheduled 1942 COVID-19 VACCINE (#1) [facility] 00:00:00 [code = COVID-[address] VACCINE (#1)] Future Scheduled 1942 COVID-19 VACCINE (#1) [facility] 00:00:00 [code = COVID-[address] VACCINE (#1)] Future Scheduled 1942 COVID-19 VACCINE (#1) [facility] 00:00:00 [code = COVID-[address] VACCINE (#1)] Future Scheduled 1942 COVID-19 VACCINE (#1) [facility] 00:00:00 [code = COVID-[address] VACCINE (#1)] Future Scheduled 1942 COVID-19 VACCINE (#1) [facility] 00:00:00 [code = COVID-[address] VACCINE (#1)] Future Scheduled 1942 COVID-19 VACCINE (#1) [facility] 00:00:00 [code = COVID-[address] VACCINE (#1)] Future Scheduled 1942 DXA SCAN [code = DXA [facility] 00:00:00 SCAN] Medical Center Future Scheduled 1942 DXA SCAN [code = DXA [facility] 00:00:00 SCAN] Medical Center Future Scheduled 1942 DXA SCAN [code = DXA [facility] 00:00:00 SCAN] [facility] Center Future Scheduled 1942 DXA SCAN [code = DXA [facility] 00:00:00 SCAN] [facility] Center Future Scheduled 1942 DXA SCAN [code = DXA [facility] 00:00:00 SCAN] [facility] Center Future Scheduled 1942 DXA SCAN [code = DXA [facility] 00:00:00 SCAN] [facility] Center Future Scheduled 1942 DXA SCAN [code = DXA [facility] 00:00:00 SCAN] [facility] Center Encounters Start End Encounter Admission Attending Care Care Encounter Source Date/Time Date/Time Type Type Clinicians Facility Department ID 2021-10-21 Outpatient [place] [id number] Common 09:42:03 [facility] 2021-09-25 Outpatient Medina, [facility]LMLC [facility] [id number] Common 15:05:01 [place] [facility] 2021-09-24 Outpatient Medina, STLMLC [facility] [id number] Common 09:52:03 [facility] 2021-12-17 2021-12-17 [id number] 00[facility]00:00 00:00:00 Only Pallavcece Marion[facility] 2021-12-17 2021-12-17 [facility] [id number] 00:00:00 00:00:00 Only Pallavolu Sanamke [facility] 2021-11-29 2021-12-10 [facility] [id number] 02:33:00 12:37:00 Encounter [facility] 2021-11-29 2021-12-10 Inpatient ER [facility] [id number] [facility] 02:33:00 12:37:00 Med 2021-11-29 2021-11-29 Outpatient [facility] [id number] [facility] 00:00:00 23:59:00 [facility] 2021-11-29 2021-11-29 [facility] [id number] 00:00:00 00:00:00 [facility] 2021-11-29 2021-11-[address] [facility] [id number] 00:00:00 00:00:00 [facility] 2021-10-28 2021-10-28 (TEL) STLMLC STLMLC [id number] Co mmon 00:00:00 00:00:00 [facility] 2021-10-23 2021-10-23 OFFICE STLMLC STLMLC [id number] Co mmon 00:00:00 00:00:00 VISIT Spirit ESTAB PT - [facility] LEVEL 4 [facility] 2021-10-23 2021-10-23 (MCR WELL) STLMLC STLMLC [id number] Common 00:00:00 00:00:00 Medicare Spiri t Wellness - [facility] 2021-09-24 2021-09-24 OFFICE STLMLC STLMLC [id number] Co mmon 00:00:00 00:00:00 VISIT NEW Spir it PT LEVEL 5 - [facility] 2021-06-02 2021-06-02 Office Jean-Pierre, 1.2.840.1 [id number] Methodi 13:45:00 13:48:12 Visit Dwain Montoya 04306.1.[address] 3.430.2.7 Hospit a .3.513336 l .8 2021-06-02 2021-06-02 Office Jean-Pierre, 1.2.840.1 [id number] Methodi 13:45:00 13:48:12 Visit Dwain Montoya 34852.1.[address] 3.430.2.7 Hospit a .3.483096 l .8 2021-06-02 2021-06-02 Travel 1.2.840.1 1.2.182.957 7315 [id number] Methodi 00:00:00 00:00:[address] 3.430.2.7 0.2.7.3.698 Ho spita .3.780245 084.8 l .8 2021-06-02 2021-06-02 Travel 1.2.840.1 1.2.987.346 4287 [id number] Methodi 00:00:00 00:00:[address] 3.430.2.7 0.2.7.3.698 Ho spita .3.697186 084.8 l .8 2021-05-26 2021-05-26 Telephone Jaqui, 1.2.840.1 [id number] 2 [id number] Methodi 00:00:00 00:00:[address] 3.430.2.7 Hospit a .3.209336 l .8 2021-05-26 2021-05-26 Telephone Jaqui, 1.2.840.1 [id number] 2 [id number] Methodi 00:00:00 00:00:[address] 3.430.2.7 Hospit a .3.915290 l .8 2021-04-06 2021-04-16 [facility] Dwain Morejon 1.2.840.1 [id number] Methodi 05:25:00 15:55:00 Encounter Sumit Mejia H. 41425.1.[address] [facility] Stephane 3.430.2.7 Hospita .3.839303 l .8 2021-04-06 2021-04-16 [facility] Dwain Morejon 1.2.840.1 [id number] Methodi 05:25:00 15:55:00 Encounter Sumit Mejia H. 85973.1.[address] [facility] Stephane 3.430.2.7 Hospita .3.650826 l .8 2021-04-06 2021-04-06 Anesthesia Rosario Nolan 1.2.840 .1 [id number] Methodi 08:08:00 16:38:00 Event Pedrito Espinoza 28633.1.[address] 3.430.2.7 Hospit a .3.307544 l .8 2021-04-06 2021-04-06 Anesthesia Rosario Nolan 1.2.840 .1 [id number] Methodi 08:08:00 16:38:00 Event Pedrito Espinoza 49060.1.[address] 3.430.2.7 Hospit a .3.713825 l .8 2021-04-06 2021-04-06 Surgery Jean-Pierre, 1.2.840.1 [id number] Methodi 07:30:00 12:00:00 Dwain Montoya 70786.1.[address] 3.430.2.7 Hospit a .3.581113 l .8 2021-04-06 2021-04-06 Surgery Jean-Pierre, 1.2.840.1 [id number] Methodi 07:30:00 12:00:00 Dwain Montoya [address]11.1.[address] 3.430.2.7 Hospit a .3.967643 l .8 2021-04-06 2021-04-06 Travel 1.2.840.1 1.2.339.935 3158 [id number] Methodi 00:00:00 00:00:[address] 3.430.2.7 0.2.7.3.698 Ho spita .3.431476 084.8 l .8 2021-04-06 2021-04-06 Travel 1.2.840.1 1.2.651.366 3202 447191 Methodi 00:00:00 00:00:[address] 3.430.2.7 0.2.7.3.698 Ho spita .3.437088 084.8 l .8 2021-03-30 2021-03-30 Felipa Razo, 1.2.840.1 [id number] Methodi 00:00:00 00:00:00 Only Neelima Roman 51201.1.[address] 3.430.2.7 Hospit a .3.075083 l .8 2021-03-30 2021-03-30 Orders Razo, 1.2.840.1 [id number] Methodi 00:00:00 00:00:00 Only Neelima Roman 88923.1.[address] 3.430.2.7 Hospit a .3.292530 l .8 2021-03-27 2021-03-27 Orders Razo, 1.2.840.1 [id number] 7682 Methodi 00:00:00 00:00:00 Only Neelima Roman 70280.1.[address] 3.430.2.7 Hospit a .3.798591 l .8 2021-03-27 2021-03-27 Orders Razo, 1.2.840.1 [id number] Methodi 00:00:00 00:00:00 Only Neelima Roman 58453.1.[address] 3.430.2.7 Hospit a .3.963283 l .8 2021-03-25 2021-03-25 [facility] 1.2.840.1 [id number] 2 [id number] Methodi 10:09:35 23:59:00 Encounter , [place]ston 36415.1.[address] 3.430.2.7 Hospit a .3.169985 l .8 2021-03-25 2021-03-25 [facility] 1.2.840.1 [id number] 2 [id number] Methodi 10:09:35 23:59:00 Encounter , [place]ston 87919.1.[address] 3.430.2.7 Hospit a .3.175945 l .8 2021-03-25 2021-03-25 Pre-Admiss Jean-Pierre, 1.2.840.1 [id number] Methodi 10:00:00 11:00:00 ion Dwain Montoya 00543.1.[address] Testing 3.430.2.7 Hospit a .3.998250 l .8 2021-03-25 2021-03-25 Pre-Admiss Jean-Pierre, 1.2.840.1 [id number] 225 [id number] Methodi 10:00:00 11:00:00 amos Montoya 08876.1.[address] Testing 3.430.2.7 Hospit a .3.605086 l .8 2021-03-25 2021-03-25 Orders Freed, 1.2.840.1 [id number] Methodi 00:00:00 00:00:00 Only Norma 09090.1.[address] 3.430.2.7 Hospit a .3.975443 l .8 2021-03-25 2021-03-25 Orders Freed, 1.2.840.1 [id number] 5772 Methodi 00:00:00 00:00:00 Only Norma 10469.1.[address] 3.430.2.7 Hospit a .3.285573 l .8 2021-03-24 2021-03-24 Orders Freed, 1.2.840.1 [id number] 1273 Methodi 00:00:00 00:00:00 Only Norma 30691.1.[address] 3.430.2.7 Hospit a .3.569034 l .8 2021-03-24 2021-03-24 Orders Jl, 1.2.840.1 [id number] 6356 Methodi 00:00:00 00:00:00 Only Carmelina Finnegan 24805.1.1 [address] 3.430.2.7 Hospit a .3.248712 l .8 2021-03-24 2021-03-24 Travel 1.2.840.1 1.2.379.584 8255 769589 Methodi 00:00:00 00:00:[address] 3.430.2.7 0.2.7.3.698 Ho spita .3.853971 084.8 l .8 2021-03-24 2021-03-24 Orders Freed, 1.2.840.1 [id number] 0986 Methodi 00:00:00 00:00:00 Only Norma 60985.1.[address] 3.430.2.7 Hospit a .3.532193 l .8 2021-03-24 2021-03-24 Orders Jl, 1.2.840.1 [id number] 6129 Methodi 00:00:00 00:00:00 Only Carmelina Finnegan 32632.1.1 [address] 3.430.2.7 Hospit a .3.543499 l .8 2021-03-24 2021-03-24 Travel 1.2.840.1 1.2.507.914 7805 [id number] Methodi 00:00:00 00:00:[address] 3.430.2.7 0.2.7.3.698 Ho spita .3.677470 084.8 l .8 2021-03-03 2021-03-03 Transcribe Jean-Pierre, 1.2.840.1 [id number] Methodi 00:00:00 00:00:00 Orders Dwain Montoya 67762.1.[address] 3.430.2.7 Hospit a .3.136688 l .8 2021-03-03 2021-03-03 [facility] [id number] [place] 00:00:00 00:00:[address] 2021-03-03 2021-03-03 Transcribe Jean-Pierre, 1.2.840.1 [id number] Methodi 00:00:00 00:00:00 Orders Dwain Montoya 18819.1.[address] 3.430.2.7 Hospit a .3.464299 l .8 2021-02-26 2021-02-26 Prep for Fabio, 1.2.840.1 [id number] 64022 25747 Methodi 00:00:00 00:00:00 Surgery Shelia 92070.1.[address] 3.430.2.7 Hospit a .3.844458 l .8 2021-02-26 2021-02-26 Prep for Mccarthy, 1.2.840.1 [id number] 83691 01316 Methodi 00:00:00 00:00:00 Surgery Shelia 58929.1.[address] 3.430.2.7 Hospit a .3.090332 l .8 2021-02-19 2021-02-25 Pre-Admiss Jean-Pierre, 1.2.840.1 [id number] 086 [id number] Methodi 12:00:00 10:03:18 ion Dwain Jan 40310.1.[address] Testing 3.430.2.7 Hospit a .3.786448 l .8 2021-02-19 2021-02-25 Pre-Admiss Jean-Pierre, 1.2.840.1 [id number] Methodi 12:00:00 10:03:18 ion Dwain Jan 74141.1.[address] Testing 3.430.2.7 Hospit a .3.003547 l .8 2021-02-23 2021-02-23 Transcribe Jean-Pierre, 1.2.840.1 [id number] 089 [id number] Methodi 00:00:00 00:00:00 Orders Dwain Jan 43938.1.[address] 3.430.2.7 Hospit a .3.301569 l .8 2021-02-23 2021-02-23 Transcribe Jean-Pierre, 1.2.840.1 [id number] 312 [id number] Methodi 00:00:00 00:00:00 Orders Dwain Jan 49688.1.[address] 3.430.2.7 Hospit a .3.151965 l .8 2021-02-19 2021-02-19 Hospital Jean-Pierre, 1.2.840.1 [id number] 53785 Methodi 13:13:46 23:59:00 Encounter Dwain Jan 36571.1.[address] 3.430.2.7 Hospit a .3.350417 l .8 2021-02-19 2021-02-19 [facility] Jean-Pierre, 1.2.840.1 [id number] Methodi 13:13:46 23:59:00 Encounter Dwain Montoya 66693.1.[address] 3.430.2.7 Hospit a .3.471358 l .8 2021-02-19 2021-02-19 [facility] 1.2.840.1 [id number] 49364 Methodi 10:30:00 11:17:24 Encounter Dwain Montoya 98855.1.[address] 3.430.2.7 Hospit a .3.239981 l .8 2021-02-19 2021-02-19 [facility] 1.2.840.1 [id number] 76 Methodi 10:30:00 11:17:24 Encounter Dwain Montoya 27069.1.[address] 3.430.2.7 Hospit a .3.448568 l .8 2021-02-19 2021-02-19 Orders Xavier 1.2.840.1 [id number] 306065 9002 Methodi 00:00:00 00:00:00 Only Ana Maria Jacobs 18852.1.[address] 3.430.2.7 Hospit a .3.356612 l .8 2021-02-19 2021-02-19 Travel 1.2.840.1 1.2.518.695 0059 480075 Methodi 00:00:00 00:00:[address] 3.430.2.7 0.2.7.3.698 spita .3.165147 084.8 l .8 2021-02-19 2021-02-19 [facility] [id number] [place] 00:00:00 00:00:00 DWAIN [address] 2021-02-19 2021-02-19 Felipa Granegr 1.2.840.1 [id number] 6866 Methodi 00:00:00 00:00:00 Only Ana Maria Jacobs 34402.1.[address] 3.430.2.7 Hospit a .3.076744 l .8 2021-02-19 2021-02-19 Travel 1.2.840.1 1.2.538.765 1254 647066 Methodi 00:00:00 00:00:[address] 3.430.2.7 0.2.7.3.698 Ho spita .3.415961 084.8 l .8 2021-02-17 2021-02-17 Travel 1.2.840.1 1.2.794.331 3056 609429 Methodi 00:00:00 00:00:[address] 3.430.2.7 0.2.7.3.698 Ho spita .3.988306 084.8 l .8 2021-02-17 2021-02-17 Travel 1.2.840.1 1.2.995.766 0412 108201 Methodi 00:00:00 00:00:[address] 3.430.2.7 0.2.7.3.698 Ho spita .3.330015 084.8 l .8 2021-02-16 2021-02-16 Felipa Morejon, 1.2.840.1 [id number] 5574 Methodi 00:00:00 00:00:00 Only Dwain Montoya 15304.1.[address] 3.430.2.7 Hospit a .3.622701 l .8 2021-02-16 2021-02-16 Felipa Morejon, 1.2.840.1 [id number] 7894 Methodi 00:00:00 00:00:00 Only Dwain Montoya 27357.1.[address] 3.430.2.7 Hospit a .3.301646 l .8 2021-02-03 2021-02-03 Prep for Fabio, 1.2.840.1 [id number] 28333 96160 Methodi 00:00:00 00:00:00 Surgery Shelia 36347.1.[address] 3.430.2.7 Hospit a .3.463545 l .8 2021-02-02 2021-02-02 Outpatient BRITTANY MOREJONH [facility] [id number] [address] [place] 00:00:00 00:00:00 DWAIN Kapil [facility] 2021-02-02 2021-02-02 Travel 1.2.840.1 1.2.783.913 6892 318004 Methodi 00:00:00 00:00:[address] 3.430.2.7 0.2.7.3.698 Ho spita .3.784268 084.8 l .8 2021-01-08 2021-01-08 Office Jean-Pierre, 1.2.840.1 [id number] 8506 Methodi 14:30:00 16:02:28 Visit Dwain Montoya 55278.1.[address] 3.430.2.7 Hospit a .3.134503 l .8 2021-01-08 2021-01-08 Ancillary Jean-Pierre 1.2.840.1 [id number] 2099 186106 Methodi 14:40:00 14:55:00 Procedure Dwain Montoya 90085.1.[address] 3.430.2.7 Hospit a .3.647244 l .8 2021-01-08 2021-01-08 Nurse Only Jaqui 1.2.840.1 [id number] Methodi 00:00:00 00:00:[address] 3.430.2.7 Hospit a .3.649100 l .8 2021-01-08 2021-01-08 Orders Jean-Pierre, 1.2.840.1 [id number] [id number] 0504 Methodi 00:00:00 00:00:00 Only Dwain Montoya 18660.1.[address] 3.430.2.7 Hospit a .3.282721 l .8 2020-12-18 2020-12-18 Outpatient LEONEL [facility] CAR 7502 Memoria 06:29:00 17:01:00 LIZZY Aguilar [facility] 2020-08-06 2020-08-07 Emergency Nolan, Norman Coughlin 1.2.840.1 01383 1004 [id number] Methodi 11:55:00 16:30:00 Jan[address]inner [address]82.1.[address] 3.430.2.7 Hospit a .3.814438 l .8 2020-08-06 2020-08-06 Travel 1.2.840.1 1.2.189.047 2267 971263 Methodi 00:00:00 00:00:[address] 3.430.2.7 0.2.7.3.698 Ho spita .3.586960 084.8 l .8 2020-07-25 2020-07-25 Office Chantal 1.2.840.1 [id number] 626800 6300 Methodi 12:57:17 13:55:12 Visit Demarcus Alcazar 36300.1.[address] 3.430.2.7 Hospit a .3.475718 l .8 2020-07-25 2020-07-25 Travel 1.2.840.1 1.2.068.256 7700 564282 Methodi 00:00:00 00:00:[address] 3.430.2.7 0.2.7.3.698 Ho spita .3.302150 084.8 l .8 2020-07-11 2020-07-19 [facility] [id number] Methodi 16:15:00 14:37:00 Encounter Janak Skinner 83344.1.[address] 3.430.2.7 Hospit a .3.548185 l .8 2020-07-16 2020-07-16 Surgery Chantal 1.2.840.1 [id number] 1157 Methodi 12:30:00 14:00:00 Demarc[address] TDanielle 19388.1.[address] 3.430.2.7 Hospit a .3.900847 l .8 2020-07-16 2020-07-16 Anesthesia Jayant Arambula 1.2.840.1 [id number] 012 [id number] Methodi 12:19:00 13:20:00 Event Irma Turpin 32570.1.[address] 3.430.2.7 Hospit a .3.724742 l .8 2020-07-11 2020-07-11 Travel 1.2.840.1 1.2.790.852 9520 065676 Methodi 00:00:00 00:00:[address] 3.430.2.7 0.2.7.3.698 Ho spita .3.937358 084.8 l .8 2019-11-20 2019-11-21 Inpatient E ALPESH, [facility] 7501 Memoria 10:38:00 15:47:00 MARTITA Cortez Memoria l 2019-02-05 2019-02-05 Inpatient U [facility] 7500 Memoria 10:30:00 07:48:00 kwame puente [facility] 2015-01-29 2015-01-29 Unknown nullFlavo [place] [id number] -8 Memoria 20:15:00 20:15:00 r Primary 6w8-9934-g l Care be6-095b1b [facility] 0b03a3 2015-01-29 2015-01-29 Unknown nullFlavo [place] [id number] -8 Memoria 20:15:00 20:15:00 r Primary 0g8-3073-d l Care be6-095b1b [facility] 0b03a3 2015-01-29 2015-01-29 [place] [address] eClinic 14:15:00 14:15:00 Primary Primary alWork s [facility] s 2014-12-19 2014-12-19 Unknown nullFlavo [place] [id number] -f Memoria 19:41:00 19:41:00 r Primary 639-4a6a-8 l Care [id number]-[id number] [facility] [id number] 2014-12-19 2014-12-19 Unknown nullFlavo [place] [id number] -f Memoria 19:41:00 19:41:00 r Primary 639-4a6a-8 l Care [id number]-[id number] [facility] a3d76e 2014-11-21 2014-11-21 Unknown nullFlavo [place] [id number] -7 Memoria 21:30:00 21:30:00 r Primary 04a-488c-9 l Care 5bf-8b4fbe [facility] [id number] 2014-11-21 2014-11-21 Unknown nullFlavo [place] [id number] -7 Memoria 21:30:00 21:30:00 r Primary 04a-488c-9 l Care 5bf-8b4fbe [facility] 256fc5 2014-06-10 2014-06-10 Unknown nullFlavo [place] [id number] -1 Memoria 16:00:00 16:00:00 r Primary 91d-488f-8 l Care [id number]-[id number] [facility] 868a81 2014-06-10 2014-06-10 Unknown nullFlavo [place] [id number] -1 Memoria 16:00:00 16:00:00 r Primary 91d-488f-8 l Care [id number]-q24304 [facility] 868a81 2014-06-10 2014-06-10 Unknown nullFlavo [place] [id number] -4 Memoria 15:00:00 15:00:00 r Primary 683-4b16-9 l Care [id number]-[id number] [facility] [id number] 2014-06-10 2014-06-10 Unknown nullFlavo [place] [id number] -a Memoria 15:00:00 15:00:00 r Primary 355-4d22-a l Care 86a-3266dd [facility] 4803dc 2014-06-10 2014-06-10 Unknown nullFlavo [place] [id number] -7 Memoria 15:00:00 15:00:00 r Primary 85e-47a6-a l Care 19a-5e84a0 [facility] [id number] 2014-06-10 2014-06-10 Unknown nullFlavo [place] [id number] -7 Memoria 15:00:00 15:00:00 r Primary 85e-47a6-a l Care 19a-5e84a0 [facility] [id number] 2014-06-10 2014-06-10 Unknown nullFlavo [place] [id number] -a Memoria 15:00:00 15:00:00 r Primary 355-4d22-a l Care 86a-3266dd [facility] 4803dc 2014-06-10 2014-06-10 Unknown nullFlavo [place] [id number] -4 Memoria 15:00:00 15:00:00 r Primary 683-4b16-9 l Care [id number] [facility] [id number] 2014-06-10 2014-06-10 Outpatient [place] [address] eClinic 10:00:00 10:00:00 Primary Primary alWork s [facility] 2014-05-17 2014-05-17 Unknown nullFlavo [place] [id number] -c Memoria 16:15:00 16:15:00 r Primary 3j9-6x22-9 l Care [id number]-[id number] [facility] [id number] 2014-05-17 2014-05-17 Unknown nullFlavo [place] [id number] -c Memoria 16:15:00 16:15:00 r Primary 3v4-8l81-5 l Care fdf-u7843t [facility] [id number] 2014-05-17 2014-05-17 Unknown nullFlavo [place] [id number] -5 Memoria 15:15:00 15:15:00 r Primary ce5-474d-a l Care 11e-b9f93d [facility] [id number] 1627-03-20 2014-05-17 Unknown nullFlavo [place] [id number] -9 Memoria 15:15:00 15:15:00 r Primary n40-963z-d l Care [id number] [facility] 68c12d 2014-05-17 2014-05-17 Unknown nullFlavo [place] [id number] -2 Memoria 15:15:00 15:15:00 r Primary cc8-4483-b l Care [id number] [facility] 509a47 2014-05-17 2014-05-17 Unknown nullFlavo [place] [id number] -9 Memoria 15:15:00 15:15:00 r Primary k35-082g-v l Care [id number] [facility] 68c12d 2014-05-17 2014-05-17 Unknown nullFlavo [place] [id number] -5 Memoria 15:15:00 15:15:00 r Primary ce5-474d-a l Care 11e-b9f93d [facility] [id number] 9740-03-20 2014-05-17 Unknown nullFlavo [place] [id number] -2 Memoria 15:15:00 15:15:00 r Primary cc8-4483-b l Care [id number] [facility] 509a47 2014-05-17 2014-05-17 Outpatient [place] [address] eClinic 10:15:00 10:15:00 Primary Primary alWork [facility] 2014-04-15 2014-04-15 Unknown nullFlavo [place] [id number] -d Memoria 22:42:00 22:42:00 r Primary x3x-6q7f-t l Care [id number] [facility] ds200k 2014-04-15 2014-04-15 Unknown nullFlavo [place] [id number] -d Memoria 22:42:00 22:42:00 r Primary a3c-5i3q-u l Care [id number] [facility] [id number] 2014-04-15 2014-04-15 Unknown nullFlavo [place] [id number] -9 Memoria 21:42:00 21:42:00 r Primary 60e-47e5-8 l Care 43a-85c0ff [facility] 7f7bbc 2014-04-15 2014-04-15 Unknown nullFlavo [place] [id number] -4 Memoria 21:42:00 21:42:00 r Primary 0ac-4496-9 l Care 699-0e2aa9 [facility] 5dd5b2 2014-04-15 2014-04-15 Unknown nullFlavo [place] [id number] -7 Memoria 21:42:00 21:42:00 r Primary 827-48a3-b l Care [id number] [facility] [id number] 2014-04-15 2014-04-15 Unknown nullFlavo [place] [id number] -7 Memoria 21:42:00 21:42:00 r Primary 827-48a3-b l Care [id number] [facility] [id number] 2014-04-15 2014-04-15 Unknown nullFlavo [place] [id number] -4 Memoria 21:42:00 21:42:00 r Primary 0ac-4496-9 l Care 699-0e2aa9 [facility] 5dd5b2 2014-04-15 2014-04-15 Unknown nullFlavo [place] [id number] -9 Memoria 21:42:00 21:42:00 r Primary 60e-47e5-8 l Care 43a-85c0ff [facility] 7f7bbc 2014-03-25 2014-03-25 Unknown nullFlavo [place] [id number] -e Memoria 16:45:00 16:45:00 r Primary 1f3-8i97-4 l Care 94e-7856b2 [facility] [id number] 2014-03-25 2014-03-25 Unknown nullFlavo [place] [id number] -e Memoria 16:45:00 16:45:00 r Primary 1r2-1d46-9 l Care 94e-7856b2 [facility] d6bb02 2014-03-25 2014-03-25 Unknown nullFlavo [place] [id number] -9 Memoria 15:45:00 15:45:00 r Primary 765-443f-a l Care [id number] [facility] 201e32 2014-03-25 2014-03-25 Unknown nullFlavo [place] [id number] -6 Memoria 15:45:00 15:45:00 r Primary z01-99j2-j l Care 7fb-909e1d [facility] 9e21ee 2014-03-25 2014-03-25 Unknown nullFlavo [place] [id number] -6 Memoria 15:45:00 15:45:00 r Primary k62-52s4-g l Care 7fb-909e1d [facility] 9e21ee 2014-03-25 2014-03-25 Unknown nullFlavo [place] [id number] -9 Memoria 15:45:00 15:45:00 r Primary 765-443f-a l Care 321-[id number] [facility] 201e32 2014-03-25 2014-03-25 Unknown nullFlavo [place] [id number] -b Memoria 15:45:00 15:45:00 r Primary 207-49fc-b l Care [id number]-e37a40 [facility] 227fe3 2014-03-25 2014-03-25 Unknown nullFlavo [place] [id number] -b Memoria 15:45:00 15:45:00 r Primary 207-49fc-b Care [id number]-k36b69 [facility] 227fe3 2014-03-25 2014-03-25 Outpatient [place] [address] eClinic 10:45:00 10:45:00 Primary Primary alWork s Care Care [facility] Results Test Description Test Time Test Comments Results Result Comments Source BASIC METABOLIC PANEL 2022-01-13 13:28:43 Test Item Value Reference Range Interpretation Comme nts SODIUM (BEAKER) (test 130 meq/L 135-148 L code = 381) POTASSIUM (BEAKER) 3.7 meq/L (test code = 379) CHLORIDE (BEAKER) (test 96 meq/L 98-106 L code = 382) CO2 (BEAKER) (test code 22 meq/L = 355) BLOOD UREA NITROGEN 33 mg/dL 10-26 H (BEAKER) (test code = 354) CREATININE (BEAKER) 7.32 mg/dL 0.50-1.20 H (test code = 358) GLUCOSE RANDOM (BEAKER) 155 mg/dL (test code = 652) CALCIUM (BEAKER) (test 7.6 mg/dL 8.5-10.5 L code = 697) EGFR (BEAKER) (test 5 mL/min/1.73 sq m I nterpretation of eGFR values code = 1092) Stage Descripti on Result G1 Normal or high >=90 G2 Mildly decreased 60-89 G3a Mildly to moderately 45-5 9 G3b Moderately to severely 30- 44 G4 Severly decreased 15-2 9 G5 Kidney failure <15Repo rted eGFR is based on the CK D-EPI 2020 equation that d oes not use a race coefficien tEstimated GFR is not as accurate as Creatinine Clearance in pr edicting glomerular filt ration rate. Estimated GFR i s not applicable for dialysis rosemary macedo Body fluid culture + gram [id number] 16:12:17 Test Item Value Reference Range Interpretation Comments Result (test code = No growth 6463-4) Gram Stain Result No organisms seen (test code = 1123) BETH (test code = BETH) Culture processed during Downtime in November 2021. [facility]AM [id number] 16:12:17 Test Item Value Reference Range Interpretation Comments CULTURE (BEAKER) (test code No growth = 1095) GRAM STAIN RESULT (BEAKER) 1+ WBCs (test code = 1123) GRAM STAIN RESULT (BEAKER) No organisms seen (test code = 439089) Culture processed during Downtime in November 2021.POC-Glucose [id number] 10:20:03 Test Item Value Reference Range Interpretation Comments POC-Glucose Meter (test 130 mg/dL 70-110 H : TE STED AT [facility] code = 1538) [address] [place] [address], [address] 30: Sweep Molder/Techni lisseth ID = [id number] for STOKES, AGLAE Lab Interpretation (test Abnormal code = 74939-1) [facility] [id number] 10:20:03 Test Item Value Reference Range Interpretation Comments POC-Glucose Meter (test 130 mg/dL 70-110 H : TE STED AT [facility] code = 1538) [address] [place] [address], 770 30: Sweep Molder/Techni lisseth ID = [id number] for STOKES, AGLAE Lab Interpretation (test Abnormal code = 66873-7) [facility] [id number] 10:20:03 Test Item Value Reference Range Interpretation Comments POC-Glucose Meter (test 130 mg/dL 70-110 H : TE STED AT [facility] code = 1538) [address] [place] [address], 770 30: Sweep Molder/Techni lisseth ID = [id number] for STOKES, AGLAE Lab Interpretation (test Abnormal code = 49533-3) [facility] [id number] 10:20:03 Test Item Value Reference Range Interpretation Comments POC-Glucose Meter (test 130 mg/dL 70-110 H : TE STED AT [facility] code = 1538) [address] [facility], 770 30: Sweep Molder/Techni lisseth ID = [id number] for STOKES, AGLAE Lab Interpretation (test Abnormal code = 05910-4) [facility] Center[facility] [id number] 10:20:03 Test Item Value Reference Range Interpretation Comments POC-Glucose Meter (test 130 mg/dL 70-110 H : TE STED AT [facility] code = 1538) [address] [facility], 770 30: Sweep Molder/Techni lisseth ID = [id number] for STOKES, AGLAE Lab Interpretation (test Abnormal code = 80241-5) [facility] Center[facility]SE [id number] 10:20:03 Test Item Value Reference Range Interpretation Comments POC-GLUCOSE METER 130 mg/dL 70-110 H : TESTED A T [facility] 6720 (BEAKER) (test code = [facility], 1538) [address]: Sweep Molder/Techni lisseth ID = [id number] for HI DALGO, AGLAE BLOOD [id number] 02:59:29 Test Item Value Reference Range Interpretation Comments CULTURE (BEAKER) (test No growth in 5 days code = 1095) BLOOD [id number] 02:59:29 Test Item Value Reference Range Interpretation Comments CULTURE (BEAKER) (test No growth in 5 days code = 1095) The specimen volume collected for this blood culture was below the optimum (10 mL per bottle or 20 mL total). Use of lower volumes may adversely affect recovery and/or detection times of some organisms.POC-Glucose [id number] 18:04:09 Test Item Value Reference Range Interpretation Comments POC-Glucose Meter (test 132 mg/dL 70-110 H : TE STED AT [facility] code = 1538) [address] [facility], [facility] 30: Sweep Molder/Techni lisseth ID = [id number] for STOKES, AGLAE Lab Interpretation (test Abnormal code = 74078-7) [facility] Center[facility] [id number] 18:04:09 Test Item Value Reference Range Interpretation Comments POC-GLUCOSE METER 132 mg/dL 70-110 H : TESTED A T [facility] 6720 (BEAKER) (test code = [facility], 1538) [address]: Sweep Molder/Techni lisseth ID = [id number] for ALONDRA SOTO, CIRILOE POCT-GLUCOSE [id number] 17:37:16 Test Item Value Reference Range Interpretation Comments POC-GLUCOSE METER 162 mg/dL 70-110 H : Notified RN/MD: ([facility]) (test code = TESTED AT [place] [address] 153) [facility], [address]: Sweep Molder/Techni lisseth ID = [id number] for JAGRUTI PEARCE POCT-GLUCOSE [id number] 17:28:31 Test Item Value Reference Range Interpretation Comments POC-GLUCOSE METER 129 mg/dL 70-110 H : [facility]) (test code = [facility], 153) [address]: Sweep Molder/Techni lisseth ID = [id number] for Prabha bingham, Rowena POCT-GLUCOSE [id number] 17:16:33 Test Item Value Reference Range Interpretation Comments POC-GLUCOSE METER 151 mg/dL 70-110 H : [facility] ([facility]) (test code = [facility], 153) 80099: Sweep Molder/Techni lisseth ID = [id number] for Re otilia, Rowena POCT-GLUCOSE [id number] 17:04:30 Test Item Value Reference Range Interpretation Comments POC-GLUCOSE METER 128 mg/dL 70-110 H : [facility] ([facility]) (test code = [facility], 153) 44157: Sweep Molder/Techni lisseth ID = [id number] for Ga ry, Staci POCT-GLUCOSE [id number] 16:41:09 Test Item Value Reference Range Interpretation Comments POC-GLUCOSE METER 149 mg/dL 70-110 H : [facility] ([facility]) (test code = [facility], 153) 07[address]: Sweep Molder/Techni lisseth ID = [id number] for VALDEMAR LUISJOHANNA (V), QUINTON POCT-GLUCOSE [id number] 16:38:03 Test Item Value Reference Range Interpretation Comments POC-GLUCOSE METER 160 mg/dL 70-110 H : [facility] ([facility]) (test code = [facility], 1538) [address]: Sweep Molder/Techni lisseth ID = [id number] for WI LMSUDHIR, DHAVAL POCT-GLUCOSE [id number] 16:30:30 Test Item Value Reference Range Interpretation Comments POC-GLUCOSE METER 107 mg/dL 70-110 : TESTED A T [facility] 6720 (BEAKER) (test code = [facility], 1538) 404[address]: Sweep Molder/Techni lisseth ID = [id number] for MANJIT RIOSIAQUEEN PASCAL POCT-GLUCOSE [id number] 16:14:56 Test Item Value Reference Range Interpretation Comments POC-GLUCOSE METER 198 mg/dL 70-110 H : TESTED A T [facility] 6720 (BEAKER) (test code = [facility], 1538) 77906: Sweep Molder/Techni lisseth ID = [id number] for MANJIT RIOSIA, POCT-GLUCOSE [id number] 16:05:04 Test Item Value Reference Range Interpretation Comments POC-GLUCOSE METER 151 mg/dL 70-110 H : TESTED A T [facility] 6720 (BEAKER) (test code = [facility], 153) 10927: Sweep Molder/Techni lisseth ID = [id number] for MANJIT RIOSIAQUEEN PASCAL POCT-GLUCOSE [id number] 15:38:41 Test Item Value Reference Range Interpretation Comments POC-GLUCOSE METER 156 mg/dL 70-110 H : TESTED A T [facility] 6720 (BEAKER) (test code = [facility], 153) 938[address]: Sweep Molder/Techni lisseth ID = [id number] for Be llard (contract), Reg hele POCT-GLUCOSE [id number] 15:33:07 Test Item Value Reference Range Interpretation Comments POC-GLUCOSE METER 101 mg/dL 70-110 : TESTED A T [facility] 6720 (BEAKER) (test code = [facility], 1538) 27836: Sweep Molder/Techni lisseth ID = [id number] for [place] LLIS, ANNMARIE POCT-GLUCOSE [id number] 15:24:47 Test Item Value Reference Range Interpretation Comments POC-GLUCOSE METER 152 mg/dL 70-110 H : TESTED A T [facility] 6720 (BEAKER) (test code = [facility], 1538) 31933: Sweep Molder/Techni lisseth ID = [id number] for [place] LLIS, ANNMARIE POCT-GLUCOSE [id number] 15:22:11 Test Item Value Reference Range Interpretation Comments POC-GLUCOSE METER 158 mg/dL 70-110 H : [facility]) (test code = [facility], 153) 22529: Sweep Molder/Techni lisseth ID = [id number] for [place] LLIS, ANNMARIE POCT-GLUCOSE [id number] 15:17:38 Test Item Value Reference Range Interpretation Comments POC-GLUCOSE METER 218 mg/dL 70-110 H : Notified RN/MD: ([facility]) (test code = TESTED AT [place] [address]38) [facility], [address]: Sweep Molder/Techni lisseth ID = [id number] for JAGRUTI PEARCE POCT-GLUCOSE [id number] 15:15:09 Test Item Value Reference Range Interpretation Comments POC-GLUCOSE METER 153 mg/dL 70-110 H : [facility]) (test code = [facility], 153) [address]: Sweep Molder/Techni lisseth ID = [id number] for Ga ry, Staci POCT-GLUCOSE [id number] 15:13:02 Test Item Value Reference Range Interpretation Comments POC-GLUCOSE METER 160 mg/dL 70-110 H : [facility] ([facility]) (test code = [facility], 153) [address]: Sweep Molder/Techni lisseth ID = [id number] for Ga ry, Staci POCT-GLUCOSE [id number] 15:11:17 Test Item Value Reference Range Interpretation Comments POC-GLUCOSE METER 161 mg/dL 70-110 H : [facility] (test code = [facility], 153) [address]: Sweep Molder/Techni lisseth ID = [id number] for Ga ry, Staci POCT-GLUCOSE [id number] 15:05:53 Test Item Value Reference Range Interpretation Comments POC-GLUCOSE METER 156 mg/dL 70-110 H : Notified RN/MD: ([facility]) (test code = TESTED AT [place] [id number] 1538) [facility], [address]: Sweep Molder/Techni lisseth ID = [id number] for JAGRUTI PEARCE POCT-GLUCOSE [id number] 13:54:33 Test Item Value Reference Range Interpretation Comments POC-GLUCOSE METER 175 mg/dL 70-110 H : TESTED A T [facility] 6720 (BEAKER) (test code = [facility], 153) [address]: Sweep Molder/Techni lisseth ID = [id number] for Ga ry, Staci POC-Glucose [id number] 13:46:16 Test Item Value Reference Range Interpretation Comments POC-Glucose Meter (test 131 mg/dL 70-110 H : TE STED AT [facility] code = 1538) 67[address] [facility], 770 30: Sweep Molder/Techni lisseth ID = [id number] for Staci [facility] Interpretation (test Abnormal code = 91826-0) [facility] [id number] 13:46:16 Test Item Value Reference Range Interpretation Comments POC-GLUCOSE METER 131 mg/dL 70-110 H : TESTED A T [facility] 6720 (BEAKER) (test code = [facility], 153) [address]: Sweep Molder/Techni lisseth ID = [id number] for Ga ry, Staci POCT-GLUCOSE [id number] 13:37:03 Test Item Value Reference Range Interpretation Comments POC-GLUCOSE METER 158 mg/dL 70-110 H : TESTED A T [facility] 6720 (BEAKER) (test code = [facility], 153) [address]: Sweep Molder/Techni lisseth ID = [id number] for Ga ry, Staci POCT-GLUCOSE [id number] 13:12:27 Test Item Value Reference Range Interpretation Comments POC-GLUCOSE METER 127 mg/dL 70-110 H : TESTED A T [facility] 6720 (BEAKER) (test code = [facility], 153) 95661: Sweep Molder/Techni lisseth ID = [id number] for Be llard (contract), Reg hele POCT-GLUCOSE [id number] 13:04:15 Test Item Value Reference Range Interpretation Comments POC-GLUCOSE METER 129 mg/dL 70-110 H : TESTED A T [facility] 6720 (BEAKER) (test code = [facility], 1538) 16068: Sweep Molder/Techni lisseth ID = [id number] for Ga ry, Staci POCT-GLUCOSE [id number] 12:49:00 Test Item Value Reference Range Interpretation Comments POC-GLUCOSE METER 137 mg/dL 70-110 H : TESTED A T [facility] 6720 (BEAKER) (test code = [facility], [facility]8) 00891: Sweep Molder/Techni lisseth ID = [id number] for Ga ry, Staci POCT-GLUCOSE [id number] 12:37:25 Test Item Value Reference Range Interpretation Comments POC-GLUCOSE METER 215 mg/dL 70-110 H : TESTED A T [facility] 6720 (BEAKER) (test code = [facility], [facility]8) 38027: Sweep Molder/Techni lisseth ID = [id number] for Ga ry, Staci POCT-GLUCOSE [id number] 12:12:20 Test Item Value Reference Range Interpretation Comments POC-GLUCOSE METER 195 mg/dL 70-110 H : TESTED A T [facility] 6720 (BEAKER) (test code = [facility], [facility]8) 14435: Sweep Molder/Techni lisseth ID = [id number] for CR ISWELL, TIA POCT-GLUCOSE [id number] 12:04:26 Test Item Value Reference Range Interpretation Comments POC-GLUCOSE METER 179 mg/dL 70-110 H : TESTED A T [facility] 6720 (BEAKER) (test code = [facility], [facility]8) 52945: Sweep Molder/Techni lisseth ID = [id number] for WI LLIS, ANNMARIE POCT-GLUCOSE [id number] 11:52:37 Test Item Value Reference Range Interpretation Comments POC-GLUCOSE METER 167 mg/dL 70-110 H : TESTED A T [facility] 6720 (BEAKER) (test code = [facility], [facility]8) 53843: Sweep Molder/Techni lisseth ID = [id number] for [place] LLIS, ANNMARIE POCT-GLUCOSE [id number] 11:39:44 Test Item Value Reference Range Interpretation Comments POC-GLUCOSE METER 166 mg/dL 70-110 H : TESTED A T [facility] 6720 (BEAKER) (test code = [facility], [facility]8) 20070: Sweep Molder/Techni lisseth ID = [id number] for WI LLIS, ANNMARIE POCT-GLUCOSE [id number] 11:17:28 Test Item Value Reference Range Interpretation Comments POC-GLUCOSE METER 160 mg/dL 70-110 H : TESTED A T [facility] 6720 (BEAKER) (test code = [facility], 153) 63859: Sweep Molder/Techni lisseth ID = [id number] for MOUNIKA HART, TIA POCT-GLUCOSE [id number] 11:12:56 Test Item Value Reference Range Interpretation Comments POC-GLUCOSE METER 197 mg/dL 70-110 H : TESTED A T [facility] 6720 (BEAKER) (test code = [facility], 1538) 37465: Sweep Molder/Techni lisseth ID = [id number] for Alberto cook (contract), Lil kit POCT-GLUCOSE [id number] 11:01:52 Test Item Value Reference Range Interpretation Comments POC-GLUCOSE METER 164 mg/dL 70-110 H : TESTED A T [facility] 6720 (BEAKER) (test code = [facility], 153) 37729: Sweep Molder/Techni lisseth ID = [id number] for Ke enan (contract), Hea ther POCT-GLUCOSE [id number] 10:49:57 Test Item Value Reference Range Interpretation Comments POC-GLUCOSE METER 195 mg/dL 70-110 H : TESTED A T [facility] 6720 (BEAKER) (test code = [facility], 153) 13752: Sweep Molder/Techni lisseth ID = [id number] for Ke enan (contract), Hea ther POCT-GLUCOSE [id number] 10:41:31 Test Item Value Reference Range Interpretation Comments POC-GLUCOSE METER 154 mg/dL 70-110 H : TESTED A T [facility] 6720 (BEAKER) (test code = [facility], 1538) 83117: Sweep Molder/Techni lisseth ID = [id number] for Sa bal (contract), Gladis catherine POCT-GLUCOSE [id number] 10:37:56 Test Item Value Reference Range Interpretation Comments POC-GLUCOSE METER 164 mg/dL 70-110 H : TESTED A T [facility] 6720 (BEAKER) (test code [facility], = 1538) 78766: Sweep Molder/Techni lisseth ID = [id number] for SUGU , SHEENAMOL POCT-GLUCOSE [id number] 10:03:25 Test Item Value Reference Range Interpretation Comments POC-GLUCOSE METER 113 mg/dL 70-110 H : TESTED A T [facility] 6720 (BEAKER) (test code [facility], = 1538) 46453: Sweep Molder/Techni lisseth ID = [id number] for Danl ey (contract), Don inique POCT-GLUCOSE [id number] 09:59:22 Test Item Value Reference Range Interpretation Comments POC-GLUCOSE METER 125 mg/dL 70-110 H : Notified RN/MD: TESTED ([facility]) [facility] = 1538) [facility], 770 30: Sweep Molder/Techni lisseth ID = [id number] for Yuni almazan (contract), Fernando aphine POCT-GLUCOSE [id number] 09:46:18 Test Item Value Reference Range Interpretation Comments POC-GLUCOSE METER 148 mg/dL 70-110 H : TESTED A T [facility] 6720 (BEAKER) (test code [facility], = 1538) 95894: Sweep Molder/Techni lisseth ID = [id number] for Danl ey (contract), Don inique POCT-GLUCOSE [id number] 09:38:39 Test Item Value Reference Range Interpretation Comments POC-GLUCOSE METER 180 mg/dL 70-110 H : TESTED A T [facility] 6720 (BEAKER) (test code [facility], = 1538) 28617: Sweep Molder/Techni lisseth ID = [id number] for Danl ey (contract), Don inique POCT-GLUCOSE [id number] 09:32:31 Test Item Value Reference Range Interpretation Comments POC-GLUCOSE METER 219 mg/dL 70-110 H : TESTED A T [facility] 6720 (BEAKER) (test code [facility], = 1538) 77521: Sweep Molder/Techni lisseth ID = [id number] for SUGU , SHEENAMOL POCT-GLUCOSE [id number] 09:13:11 Test Item Value Reference Range Interpretation Comments POC-GLUCOSE METER 142 mg/dL 70-110 H : TESTED A T [facility] 6720 (BEAKER) (test code [facility], = 1538) 41891: Sweep Molder/Techni lisseth ID = [id number] for SUGU , JAQUELINEENAMOL Prepare [id number] 23:54:00 Test Item Value Reference Range Interpretation Comments CROSSMATCH (test code = 2264) COMPATIBLE Unit ABO (test code = A Neg 5055646) UNIT NUMBER (test code = [id number] 934-0) Status (test code = 6087707) TX_TIMEINCHART Blood Bank Product (test code RED BLOOD CELLS = 2263) PRODUCT CODE (test code = W8557A08 933-2) [facility] [id number] 23:54:00 Test Item Value Reference Range Interpretation Comments CROSSMATCH (test code = 2264) COMPATIBLE Unit ABO (test code = A Neg 6055183) UNIT NUMBER (test code = [id number] 934-0) Status (test code = 0596704) TX_TIMEINCHART Blood Bank Product (test code RED BLOOD CELLS = 2263) PRODUCT CODE (test code = M2918S83 933-2) [facility] [id number] 23:54:00 Test Item Value Reference Range Interpretation Comments CROSSMATCH (test code = 2264) COMPATIBLE Unit ABO (test code = A Neg 1839034) UNIT NUMBER (test code = [id number] 934-0) Status (test code = 5378265) TX_TIMEINCHART Blood Bank Product (test code RED BLOOD CELLS = 2263) PRODUCT CODE (test code = H6597R17 933-2) [facility] [id number] 23:54:00 Test Item Value Reference Range Interpretation Comments CROSSMATCH (test code = 2264) COMPATIBLE Unit ABO (test code = A Neg 1399534) UNIT NUMBER (test code = [id number] 934-0) Status (test code = 6089671) TX_TIMEINCHART Blood Bank Product (test code RED BLOOD CELLS = 2263) PRODUCT CODE (test code = Z1276B15 933-2) [facility] [id number] 23:54:00 Test Item Value Reference Range Interpretation Comments CROSSMATCH (test code = 2264) COMPATIBLE Unit ABO (test code = A Neg 8955439) UNIT NUMBER (test code = [id number] 934-0) Status (test code = 9176865) TX_TIMEINCHART Blood Bank Product (test code RED BLOOD CELLS = 2263) PRODUCT CODE (test code = M7175B99 933-2) [facility], 1 VIEW [id number] 17:31:009T-54 [facility] : 1940 Sex: FFINALREPORT EXAM: KUB COMPARISON: December 04, 2021 CLINICAL HISTORY: Constipation FINDINGS: There is nonobstructive bowel gas pattern with mild retained feces in the colon. There is no gross evidence of pneumoperitoneum. The regional osseous structures are unremarkable. Signed: Ana Roberts [facility] Verified Date/Time: 12/09/2021 17:31:17 RAD, ABDOMEN/KUB, 1 VIEW [id number] 14:46:00 [facility] REAL : 1940 Sex: FFINALREPORT CLINICAL HISTORY: PD Cath Placement TECHNIQUE: Supine abdomen COMPARISON: None IMPRESSION: A peritoneal dialysis catheter projects in the right lower quadrant. The bowel gaspattern is nonspecific. Free air and air- fluid levels are not definitively seen, but cannot be excluded on the supine view. Signed: Janie Crump MDReport Verified Date/Time: 12/04/2021 14:46:50 Reading Location: [address] Reading Room 2D Echo W/Doppler(CW/PW/Color) 2021-11-30 12:04:14Ejection [facility]ractionSLEH ECHO [facility] W[facility]Doppler(CW/PW/Color)2021-11-30 12:04:14Ejection FractionSLEH ECHO [facility] W/Doppler(CW/PW/Color)2021-11-30 12:04:14[facility]jection [facility]LEH [facility] W[facility]Doppler(CW/PW/Color) 2021-11-30 12:04:14Ejection [facility]ractionSLEH ECHO [facility] W/Doppler(CW/PW/Color)2021-11-30 12:04:14[facility](CW/PW/Color[facility]2021-11-30 12:04:14Ejection FractionSLEH [facility]CHO [facility] [id number] 21:27:48 Test Item Value Reference Range Interpretation Comments POC-GLUCOSE METER 208 mg/dL 70-110 H : TESTED A T [facility] 6720 (BEDAVIAN) (test code = [facility] [place], 1538) 95699: Sweep Molder/Techni lisseth ID = [id number] for Oksana Jensen BASIC METABOLIC [id number] 21:24:43 Test Item Value Reference Range Interpretation Comments SODIUM (BEAKER) 132 meq/L 136-145 L (test code = 381) POTASSIUM 3.9 meq/L 3.5-5.1 Specimen slight ly (BEAKER) (test hemolyzed code = 379) CHLORIDE (BEAKER) 96 meq/L 98-107 L (test code = 382) CO2 (BEAKER) 18 meq/L 22-29 L (test code = 355) BLOOD UREA 46 mg/dL 7-21 H NITROGEN (BEAKER) (test code = 354) CREATININE 8.44 mg/dL 0.57-1.25 H Specimen slight ly (BEAKER) (test hemolyzed code = 358) GLUCOSE RANDOM 187 mg/dL 70-105 H (BEAKER) (test code = 652) CALCIUM (BEAKER) 8.3 mg/dL 8.4-10.2 L (test code = 697) EGFR (BEAKER) 4 Interpretatio n of eGFR (test code = mL/min/1.73 values Stage De scription 1092) sq m Result G1 Norm al or high >=90 G2 Mildly decreased 60-89 G3a Mildl y to moderately 45-5 9 G3b Moderately to s everely 30-44 G4 Severl y decreased 15-29 G5 Kidne y failure <15Reported eGF R is based on the CKD-EPI 2020 equation that d oes not use a race coefficientEsti mated GFR is not as accur ate as Creatinine Agnieszka farah in predicting glom erular filtration rate . Estimated GFR is not appl icable for dialysis patien ts Sweep Molder ID - ROBERT LLACTIC ACID, [id number] 21:21:15 Test Item Value Reference Range Interpretation Comments LACTATE BLOOD VENOUS 2.94 mmol/L 0.50-2.20 H Specime n moderately (2) (BEAKER) (test hemolyzed code = 2872) Sweep Molder ID - ROBERT LBody fluid cell count with [id number] 19:54:54 Test Item Value Reference Range Interpretation Comments Appearance (test code Slightly Hazy Clear A = 9335-1) Color (test code = Straw Colorless, Straw 6824-7) RBCs (test code = 6 See_Comment H [Automate d 01348-2) message] The system which generated this result transmitted reference range : <=1 /cu mm. The reference range was not used to interpret this result as normal/abnormal . Adjusted WBC Count 295 See_Comment H [Automat ed (test code = 65588-3) messag e] The system which generated this result transmitted reference range : <=5 /cu mm. The reference range was not used to interpret this result as normal/abnormal . Lining Cells (test 3 See_Comment H [Automat ed code = 36982-9) message] The system which generated this result transmitted reference range : <=1 /cu mm. The reference range was not used to interpret this result as normal/abnormal . % Segs (test code = 63 % 81884-9) % Lymphs (test code = 7 % 54482-0) % Monos (test code = 30 % 76160-3) % Eos (test code = 0 % 12816-7) % Baso (test code = 0 % 87836-4) Container Body Fluid Sterile (test code = 2873) Container Lab Interpretation Abnormal (test code = 35625-6) [facility] Center[facility] count with kryjdhiyvhgs7406-44-69 19:54:54 Test Item Value Reference Range Interpretation Comments Appearance (test code Slightly Hazy Clear A = 9335-1) Color (test code = Straw Colorless, Straw 6824-7) RBCs (test code = 6 See_Comment H [Automate d 60935-7) message] The system which generated this result transmitted reference range : <=1 /cu mm. The reference range was not used to interpret this result as normal/abnormal . Adjusted WBC Count 295 See_Comment H [Automat ed (test code = 01755-1) messag e] The system which generated this result transmitted reference range : <=5 /cu mm. The reference range was not used to interpret this result as normal/abnormal . Lining Cells (test 3 See_Comment H [Automat ed code = 29934-5) message] The system which generated this result transmitted reference range : <=1 /cu mm. The reference range was not used to interpret this result as normal/abnormal . % Segs (test code = 63 % 46630-3) % Lymphs (test code = 7 % 54866-1) % Monos (test code = 30 % 87255-4) % Eos (test code = 0 % 31004-2) % Baso (test code = 0 % 69409-1) Container Body Fluid Sterile (test code = 2873) Container Lab Interpretation Abnormal (test code = 41932-9) [facility] Center[facility] fluid cell count with sqpghonprhbb6262-94-11 19:54:54 Test Item Value Reference Range Interpretation Comments Appearance (test code Slightly Hazy Clear A = 9335-1) Color (test code = Straw Colorless, Straw 6824-7) RBCs (test code = 6 See_Comment H [Automate d 77665-3) message] The system which generated this result transmitted reference range : <=1 /cu mm. The reference range was not used to interpret this result as normal/abnormal . Adjusted WBC Count 295 See_Comment H [Automat ed (test code = 15233-2) messag e] The system which generated this result transmitted reference range : <=5 /cu mm. The reference range was not used to interpret this result as normal/abnormal . Lining Cells (test 3 See_Comment H [Automat ed code = 00974-7) message] The system which generated this result transmitted reference range : <=1 /cu mm. The reference range was not used to interpret this result as normal/abnormal . % Segs (test code = 63 % 62239-9) % Lymphs (test code = 7 % 87275-8) % Monos (test code = 30 % 62247-3) % Eos (test code = 0 % 97043-8) % Baso (test code = 0 % 42384-8) Container Body Fluid Sterile (test code = 2873) Container Lab Interpretation Abnormal (test code = 67647-9) [facility] Center[facility] cell count with ikzcfywzpsbt1964-66-86 19:54:54 Test Item Value Reference Range Interpretation Comments Appearance (test code Slightly Hazy Clear A = 9335-1) Color (test code = Straw Colorless, Straw 6824-7) RBCs (test code = 6 See_Comment H [Automate d 97199-5) message] The system which generated this result transmitted reference range : <=1 /cu mm. The reference range was not used to interpret this result as normal/abnormal . Adjusted WBC Count 295 See_Comment H [Automat ed (test code = 05685-4) messag e] The system which generated this result transmitted reference range : <=5 /cu mm. The reference range was not used to interpret this result as normal/abnormal . Lining Cells (test 3 See_Comment H [Automat ed code = 00581-7) message] The system which generated this result transmitted reference range : <=1 /cu mm. The reference range was not used to interpret this result as normal/abnormal . % Segs (test code = 63 % 67729-3) % Lymphs (test code = 7 % 29805-1) % Monos (test code = 30 % 73237-8) % Eos (test code = 0 % 15306-2) % Baso (test code = 0 % 88922-2) Container Body Fluid Sterile (test code = 2873) Container Lab Interpretation Abnormal (test code = 16621-8) [facility] Center[facility] count with fsgbkbupsxvv0157-58-98 19:54:54 Test Item Value Reference Range Interpretation Comments Appearance (test code Slightly Hazy Clear A = 9335-1) Color (test code = Straw Colorless, Straw 6824-7) RBCs (test code = 6 See_Comment H [Automate d 26331-4) message] The system which generated this result transmitted reference range : <=1 /cu mm. The reference range was not used to interpret this result as normal/abnormal . Adjusted WBC Count 295 See_Comment H [Automat ed (test code = 10034-0) messag e] The system which generated this result transmitted reference range : <=5 /cu mm. The reference range was not used to interpret this result as normal/abnormal . Lining Cells (test 3 See_Comment H [Automat ed code = 51254-9) message] The system which generated this result transmitted reference range : <=1 /cu mm. The reference range was not used to interpret this result as normal/abnormal . % Segs (test code = 63 % 59771-4) % Lymphs (test code = 7 % 24320-6) % Monos (test code = 30 % 92090-6) % Eos (test code = 0 % 75199-3) % Baso (test code = 0 % 23955-8) Container Body Fluid Sterile (test code = 2873) Container Lab Interpretation Abnormal (test code = 73956-4) [facility] Center[facility] count with vvxlmaogfqna9828-63-56 19:54:54 Test Item Value Reference Range Interpretation Comments Appearance (test code Slightly Hazy Clear A = 9335-1) Color (test code = Straw Colorless, Straw 6824-7) RBCs (test code = 6 See_Comment H [Automate d 90497-9) message] The system which generated this result transmitted reference range : <=1 /cu mm. The reference range was not used to interpret this result as normal/abnormal . Adjusted WBC Count 295 See_Comment H [Automat ed (test code = 54816-3) messag e] The system which generated this result transmitted reference range : <=5 /cu mm. The reference range was not used to interpret this result as normal/abnormal . Lining Cells (test 3 See_Comment H [Automat ed code = 95195-5) message] The system which generated this result transmitted reference range : <=1 /cu mm. The reference range was not used to interpret this result as normal/abnormal . % Segs (test code = 63 % 25531-1) % Lymphs (test code = 7 % 76836-7) % Monos (test code = 30 % 84678-6) % Eos (test code = 0 % 96846-0) % Baso (test code = 0 % 19964-0) Container Body Fluid Sterile (test code = 2873) Container Lab Interpretation Abnormal (test code = 86964-3) [facility] count with spcfrgsqacmg2402-18-49 19:54:54 Test Item Value Reference Range Interpretation Comments Appearance (test code Slightly Hazy Clear A = 9335-1) Color (test code = Straw Colorless, Straw 6824-7) RBCs (test code = 6 See_Comment H [Automate d 40226-9) message] The system which generated this result transmitted reference range : <=1 /cu mm. The reference range was not used to interpret this result as normal/abnormal . Adjusted WBC Count 295 See_Comment H [Automat ed (test code = 13834-0) messag e] The system which generated this result transmitted reference range : <=5 /cu mm. The reference range was not used to interpret this result as normal/abnormal . Lining Cells (test 3 See_Comment H [Automat ed code = 22365-3) message] The system which generated this result transmitted reference range : <=1 /cu mm. The reference range was not used to interpret this result as normal/abnormal . % Segs (test code = 63 % 06452-9) % Lymphs (test code = 7 % 53316-8) % Monos (test code = 30 % 69636-3) % Eos (test code = 0 % 37728-2) % Baso (test code = 0 % 33023-5) Container Body Fluid Sterile (test code = 2873) Container Lab Interpretation Abnormal (test code = 42476-9) [facility] CenterBODY FLUID CELL COUNT WITH [id number] 19:54:54 Test Item Value Reference Range Interpretation Comments APPEARANCE FLUID Slightly Hazy Clear A (BEAKER) (test code = 510) COLOR FLUID Straw Colorless, Straw (BEAKER) (test code = 511) RBC FLUID (BEAKER) 6 /cu mm See_Comment H [Automat ed (test code = 513) message] T he system which generated this result transmit geeta reference range : <=1. The refere nce range was not u sed to interpret th is result as normal/abnormal . ADJUSTED WBC FLUID 295 /cu mm See_Comment H [Automat ed (BEAKER) (test code message] The = 1691) system which generated this result transmit geeta reference range : <=5. The refere nce range was not u sed to interpret th is result as normal/abnormal . LINING CELLS 3 /cu mm See_Comment H [Automated (BEAKER) (test code message] The = 1590) system which generated this result transmit geeta reference range : <=1. The refere nce range was not u sed to interpret th is result as normal/abnormal . NEUTROPHILS FLUID 63 % (BEAKER) (test code = 1656) LYMPHS FLUID 7 % (BEAKER) (test code = 488) MONO/MACROPHAGE 30 % FLUID (BEAKER) (test code = 489) EOSINOPHILS FLUID 0 % (BEAKER) (test code = 491) BASO FLUID (BEAKER) 0 % (test code = 492) CONTAINER BODY Sterile Container FLUID (BEAKER) (test code = 2873) POCT-GLUCOSE [id number] 16:23:27 Test Item Value Reference Range Interpretation Comments POC-GLUCOSE METER 205 mg/dL 70-110 H : TESTED A T [facility] 6720 (BEAKER) (test code [facility] [place], = 1538) 23619: Sweep Molder/Techni lisseth ID = [id number] for Yuni almazan (contract)Fernando BASIC METABOLIC [id number] 14:52:07 Test Item Value Reference Range Interpretation Comments SODIUM (BEAKER) 133 meq/L 136-145 L (test code = 381) POTASSIUM 3.5 meq/L 3.5-5.1 (BEAKER) (test code = 379) CHLORIDE (BEAKER) 96 meq/L 98-107 L (test code = 382) CO2 (BEAKER) 18 meq/L 22-29 L (test code = 355) BLOOD UREA 50 mg/dL 7-21 H NITROGEN (BEAKER) (test code = 354) CREATININE 9.21 mg/dL 0.57-1.25 H (BEAKER) (test code = 358) GLUCOSE RANDOM 185 mg/dL 70-105 H (BEAKER) (test code = 652) CALCIUM (BEAKER) 8.5 mg/dL 8.4-10.2 (test code = 697) EGFR (BEAKER) 4 Interpretatio n of eGFR (test code = mL/min/1.73 values Stage De scription 1092) sq m Result G1 Iris l or high >=90 G2 Mildly decreased 60-89 G3a Mildl y to moderately 45-5 9 G3b Moderately to s everely 30-44 G4 Severl y decreased 15-29 G5 Kidney failure <15Reported eGF R is based on the CKD-EPI 2020 equation that d oes not use a race coefficientEsti mated GFR is not as accur ate as Creatinine Agnieszka farah in predicting glom erular filtration rate . Estimated GFR is not appl icable for dialysis patien ts Sweep Molder ID - PICRYSTAL [id number] 14:48:18 Test Item Value Reference Range Interpretation Comments MAGNESIUM (BEAKER) (test code = 2.6 mg/dL 1.6-2.6 627) Sweep Molder ID - ROBERT LLACTIC ACID, [id number] 14:37:53 Test Item Value Reference Range Interpretation Comments LACTATE BLOOD VENOUS 3.19 mmol/L 0.50-2.20 H Specime n moderately (2) (BEAKER) (test hemolyzed code = 2872) Sweep Molder ID - HERON DCALCIUM, [id number] 12:51:45 Test Item Value Reference Range Interpretation Comments CALCIUM IONIZED (BEAKER) (test 1.11 mmol/L 1.12-1.27 L code = 698) PH, BLOOD (BEAKER) (test code = 7.36 1810) T4, [id number] 09:41:16 Test Item Value Reference Range Interpretation Comments FREE T4 (BEAKER) (test code = 655) 0.85 ng/dL 0.70-1.48 Sweep Molder ID - ROBERT LCOMPREHENSIVE METABOLIC [id number] 06:38:33 Test Item Value Reference Range Interpretation Comments TOTAL PROTEIN 5.8 gm/dL 6.0-8.3 L (BEAKER) (test code = 770) ALBUMIN (BEAKER) 2.9 g/dL 3.5-5.0 L (test code = 1145) ALKALINE 80 U/L 40-150 PHOSPHATASE (BEAKER) (test code = 346) BILIRUBIN TOTAL 0.4 mg/dL 0.2-1.2 (BEAKER) (test code = 377) SODIUM (BEAKER) 137 meq/L 136-145 (test code = 381) POTASSIUM (BEAKER) 3.3 meq/L 3.5-5.1 L (test code = 379) CHLORIDE (BEAKER) 98 meq/L 98-107 (test code = 382) CO2 (BEAKER) (test 19 meq/L 22-29 L code = 355) BLOOD UREA 50 mg/dL 7-21 H NITROGEN (BEAKER) (test code = 354) CREATININE 9.49 mg/dL 0.57-1.25 H (BEAKER) (test code = 358) GLUCOSE RANDOM 172 mg/dL 70-105 H (BEAKER) (test code = 652) CALCIUM (BEAKER) 8.3 mg/dL 8.4-10.2 L (test code = 697) AST (SGOT) 9 U/L 5-34 (BEAKER) (test code = 353) ALT (SGPT) 6 U/L 6-55 (BEAKER) (test code = 347) EGFR (BEAKER) 4 Interpretatio n of eGFR (test code = 1092) mL/min/1.[address] age Description sq m Result G1 Iris l or high >=90 G2 Mildly decreased 60-89 G3a Mildl y to moderately 45-5 9 G3b Moderately to s everely 30-44 G4 Severl y decreased 15-29 G5 Kidney failure <15Reported eGF R is based on the CKD-EPI 2020 equation that d oes not use a race coefficientEsti mated GFR is not as accur ate as Creatinine Agnieszka farah in predicting glom erular filtration rate . Estimated GFR is not appl icable for dialysis patien ts Sweep Molder ID - ROBERT [id number] 05:59:27 Test Item Value Reference Range Interpretation Comments MAGNESIUM (BEAKER) (test code = 1.6 mg/dL 1.6-2.6 627) Sweep Molder ID Cesar JONES [id number] 05:59:27 Test Item Value Reference Range Interpretation Comments PHOSPHORUS (BEAKER) (test code = 7.6 mg/dL 2.3-4.7 H 604) Sweep Molder ID Cesar JONES LTSH/FREE T4 IF [id number] 05:54:49 Test Item Value Reference Range Interpretation Comments THYROID STIMULATING HORMONE 5.804 uIU/mL 0.350-4.940 H (BEAKER) (test code = 772) Sweep Molder ID Cesar JONES LCALCIUM, [id number] 05:42:26 Test Item Value Reference Range Interpretation Comments CALCIUM IONIZED (BEAKER) (test 0.99 mmol/L 1.12-1.27 L code = 698) PH, BLOOD (BEAKER) (test code = 7.38 1810) B-TYPE NATRIURETIC FACTOR (BNP)2021-11-29 05:35:37 Test Item Value Reference Range Interpretation Comments B-TYPE NATRIURETIC PEPTIDE (BEAKER) 198 pg/mL 0-100 H (test code = 700) Sweep Molder ID - ROBERT LKETONE, [id number] 05:30:26 Test Item Value Reference Range Interpretation Comments KETONES, BLOOD (BEAKER) (test code 0.3 mmol/L <0.4 = 1103) CBC W/PLT COUNT & AUTO [id number] 04:56:25 Test Item Value Reference Range Interpretation Comments WHITE BLOOD CELL COUNT (BEAKER) 12.4 K/ L 3.5-10.5 H (test code = 775) RED BLOOD CELL COUNT (BEAKER) 2.91 M/ L 3.93-5.22 L (test code = 761) HEMOGLOBIN (BEAKER) (test code = 8.9 GM/DL 11.2-15.7 L 410) HEMATOCRIT (BEAKER) (test code = 26.6 % 34.1-44.9 L 411) MEAN CORPUSCULAR VOLUME (BEAKER) 91 fL 79-95 (test code = 753) MEAN CORPUSCULAR HEMOGLOBIN 30.6 pg 25.6-32.2 (BEAKER) (test code = 751) MEAN CORPUSCULAR HEMOGLOBIN CONC 33.5 GM/DL 32.2-35.5 (BEAKER) (test code = 752) RED CELL DISTRIBUTION WIDTH 14.9 % 11.7-14.4 H (BEAKER) (test code = 412) PLATELET COUNT (BEAKER) (test 197 K/CU MM 150-450 code = 756) MEAN PLATELET VOLUME (BEAKER) 8.9 fL 9.4-12.3 L (test code = 754) NUCLEATED RED BLOOD CELLS 0 /100 WBC 0-0 (BEAKER) (test code = 413) NEUTROPHILS RELATIVE PERCENT 83 % (BEAKER) (test code = 429) LYMPHOCYTES RELATIVE PERCENT 10 % (BEAKER) (test code = 430) MONOCYTES RELATIVE PERCENT 6 % (BEAKER) (test code = 431) EOSINOPHILS RELATIVE PERCENT 0 % (BEAKER) (test code = 432) BASOPHILS RELATIVE PERCENT 0 % (BEAKER) (test code = 437) NEUTROPHILS ABSOLUTE COUNT 10.21 K/ L 1.56-6.13 H (BEAKER) (test code = 670) LYMPHOCYTES ABSOLUTE COUNT 1.19 K/ L 1.18-3.74 (BEAKER) (test code = 414) MONOCYTES ABSOLUTE COUNT (BEAKER) 0.72 K/ L 0.24-0.36 H (test code = 415) EOSINOPHILS ABSOLUTE COUNT 0.05 K/ L 0.04-0.36 (BEAKER) (test code = 416) BASOPHILS ABSOLUTE COUNT (BEAKER) 0.05 K/ L 0.01-0.08 (test code = 417) IMMATURE GRANULOCYTES-RELATIVE 1.10 % 0.00-1.00 H PERCENT (BEAKER) (test code = 2801) RAD, CHEST, 1 VIEW, NON [id number] 04:24:00Reason for exam:->possible infectionShould this be performed at the bedside?->Yes [facility] 1940 Sex: FFINALREPORT History: possible infection. Comparison: None. Findings: A single view of the chest is submitted. The cardiac silhouette is within normal limits for size. The patient has undergone prior sternotomy and left subclavian, dual- lead pacemaker placement. There is no focal consolidation, pneumothorax, large pleural effusion or evidence of overt pulmonary edema. There is no acutebony abnormality. Free air is seen under the right hemidiaphragm, which is worrisome for a perforated intra-abdominal hollow viscus. By report, the patient has had recent outside CT imaging of the abdomen and pelvis where a similar finding was suggested to result from peritoneal dialysis catheter manipulation. Further evaluation with repeat CT the abdomen and pelvis and surgical evaluation can be considered, as clinically indicated. 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 Interpretation (test Abnormal code = 99771-3) [facility]2022-02-17 17:47:43 Test Item Value Reference Range Interpretation Comments POC glucose (test code = 195 mg/dL 65-99 H Ope rator Name: [id number]) Uwbela Ayala IDevice ID: [id number] able : HMW 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 Interpretation (test Abnormal code = 66299-4) [facility]2022-02-17 17:47:43 Test Item Value Reference Range Interpretation Comments POC glucose (test code = 195 mg/dL 65-99 H Ope rator Name: 91004-5) Uwbela Ayala IDevice ID: [id number] able : HMW 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 Interpretation (test Abnormal code = 04088-2) [facility]2022-02-17 17:47:43 Test Item Value Reference Range Interpretation Comments POC glucose (test code = 195 mg/dL 65-99 H Ope rator Name: 72815-7) Uwbela Ayala IDevice ID: [id number] able : HMW 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 Interpretation (test Abnormal code = 56763-4) [facility]2022-02-17 17:47:43 Test Item Value Reference Range Interpretation Comments POC glucose (test code = 195 mg/dL 65-99 H Ope rator Name: [id number]) Uwbela Ayala IDevice ID: [id number] able : HMW 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 Interpretation (test Abnormal code = 12413-3) [facility]2022-02-17 17:47:43 Test Item Value Reference Range Interpretation Comments POC glucose (test code = 195 mg/dL 65-99 H Ope rator Name: [id number]) Uwbela Ayala IDevice ID: [id number] able : HMW 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 Interpretation (test Abnormal code = 39068-2) [facility]2022-02-17 17:47:43 Test Item Value Reference Range Interpretation Comments POC glucose (test code = 195 mg/dL 65-99 H Ope rator Name: 03645-5) [facility] Toigerrydede IDevice ID: [id number] able : HMW 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 Interpretation (test Abnormal code = 04897-9) [facility]2022-02-17 17:47:43 Test Item Value Reference Range Interpretation Comments POC glucose (test code = 195 mg/dL 65-99 H Ope rator Name: 17249-9) Uwmariela Lucy IDevice ID: [id number] able : HMW 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 Interpretation (test Abnormal code = 64222-3) [facility] [id number] 17:47:43 Test Item Value Reference Range Interpretation Comments POC glucose (test code = 195 mg/dL 65-99 H Ope rator Name: 43049-9) [facility] Lucy IDevice ID: [id number] able : HMW 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 Interpretation (test Abnormal code = 49674-4) [facility]2022-02-17 17:47:43 Test Item Value Reference Range Interpretation Comments POC glucose (test code = 195 mg/dL 65-99 H Ope rator Name: [id number]) [facility] Lucy IDevice ID: [id number] able : HMW 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 Interpretation (test Abnormal code = 31567-3) [facility] [Presence] in Respiratory specimen by CHANTEL with probe [id number] 00:53:01 Test Item Value Reference Range Interpretation Comments SARS-CoV-2 (COVID-19) RNA [Presence] Detected Not-Detected in Respiratory specimen by CHANTEL with probe detection (test code = 70378-6) 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 (test code = 60084-6) Whether the patient has symptoms related to condition of interest (test code = 53852-6) Patient was hospitalized because of this condition (test code = 70163-0) Whether the patient was admitted to intensive care unit (ICU) for condition of interest (test code = 00868-2) Whether patient resides in a congregate care setting (test code = 58040-5) [facility] [id number] 20:47:00 Test Item Value Reference Range Interpretation Comments ABO grouping (test code = 883-9) A Rh type (test code = 77830-9) NEG Antibody screen (gel) (test code = NEG 890-4) [facility] and [id number] 20:47:00 Test Item Value Reference Range Interpretation Comments ABO grouping (test code = 883-9) A Rh type (test code = 65317-1) NEG Antibody screen (gel) (test code = NEG 890-4) [facility] and [id number] 20:47:00 Test Item Value Reference Range Interpretation Comments ABO grouping (test code = 883-9) A Rh type (test code = 89660-3) NEG Antibody screen (gel) (test code = NEG 890-4) [facility] and [id number] 20:47:00 Test Item Value Reference Range Interpretation Comments ABO grouping (test code = 883-9) A Rh type (test code = 68066-3) NEG Antibody screen (gel) (test code = NEG 890-4) [facility] and [id number] 20:47:00 Test Item Value Reference Range Interpretation Comments ABO grouping (test code = 883-9) A Rh type (test code = 95681-1) NEG Antibody screen (gel) (test code = NEG 890-4) [facility] and [id number] 20:47:00 Test Item Value Reference Range Interpretation Comments ABO grouping (test code = 883-9) A Rh type (test code = 61762-0) NEG Antibody screen (gel) (test code = NEG 890-4) [facility] and [id number] 20:47:00 Test Item Value Reference Range Interpretation Comments ABO grouping (test code = 883-9) A Rh type (test code = 37385-4) NEG Antibody screen (gel) (test code = NEG 890-4) [facility] and [id number] 20:47:00 Test Item Value Reference Range Interpretation Comments ABO grouping (test code = 883-9) A Rh type (test code = 85786-3) NEG Antibody screen (gel) (test code = NEG 890-4) [facility] and [id number] 20:47:00 Test Item Value Reference Range Interpretation Comments ABO grouping (test code = 883-9) A Rh type (test code = 47390-2) NEG Antibody screen (gel) (test code = NEG 890-4) [facility] and [id number] 20:47:00 Test Item Value Reference Range Interpretation Comments ABO grouping (test code = 883-9) A Rh type (test code = 84724-6) NEG Antibody screen (gel) (test code = NEG 890-4) [place] [address] [id number] 20:31:34 Test Item Value Reference Range Interpretation Comments Ventricular rate (test code = 253) Atrial rate (test code = 255) MN interval (test code = 266) QRSD interval (test code = 260) QT interval (test code = 264) QTC interval (test code = 265) P axis 1 (test code = 267) QRS axis 1 (test code = 268) T wave axis (test code = 270) EKG impression (test Sinus rhythm with 1st code = 273) degree AV block-ST & T wave abnormality, consider anterolateral ischemia-Prolonged QT-Abnormal ECG-No previous ECGs available-Electronicall y Signed By Catrachita Crump MD Min ([id number]) on 04/07/2021 2:31:[address]2022-02-08 20:31:34 Test Item Value Reference Range Interpretation Comments Ventricular rate (test code = 253) Atrial rate (test code = 255) MN interval (test code = 266) QRSD interval (test code = 260) QT interval (test code = 264) QTC interval (test code = 265) P axis 1 (test code = 267) QRS axis 1 (test code = 268) T wave axis (test code = 270) EKG impression (test Sinus rhythm with 1st code = 273) degree AV block-ST & T wave abnormality, consider anterolateral ischemia-Prolonged QT-Abnormal ECG-No previous ECGs available-Electronicall y Signed By Catrachita Crump MD Min ([id number]) on 04/07/2021 2:31:33 PM [place] [address] [id number] 20:31:34 Test Item Value Reference Range Interpretation Comments Ventricular rate (test code = 253) Atrial rate (test code = 255) MN interval (test code = 266) QRSD interval (test code = 260) QT interval (test code = 264) QTC interval (test code = 265) P axis 1 (test code = 267) QRS axis 1 (test code = 268) T wave axis (test code = 270) EKG impression (test Sinus rhythm with 1st code = 273) degree AV block-ST & T wave abnormality, consider anterolateral ischemia-Prolonged QT-Abnormal ECG-No previous ECGs available-Electronicall y Signed By Catrachita Crump MD Min ([id number]) on 04/07/2021 2:31:33 PM [facility] 12 [id number] 20:31:34 Test Item Value Reference Range Interpretation Comments Ventricular rate (test code = 253) Atrial rate (test code = 255) MN interval (test code = 266) QRSD interval (test code = 260) QT interval (test code = 264) QTC interval (test code = 265) P axis 1 (test code = 267) QRS axis 1 (test code = 268) T wave axis (test code = 270) EKG impression (test Sinus rhythm with 1st code = 273) degree AV block-ST & T wave abnormality, consider anterolateral ischemia-Prolonged QT-Abnormal ECG-No previous ECGs available-Electronicall y Signed By Catrachita Crump MD ([id number]) on 04/07/2021 2:31:33 PM [place] [address] [id number] 20:31:34 Test Item Value Reference Range Interpretation Comments Ventricular rate (test code = 253) Atrial rate (test code = 255) MN interval (test code = 266) QRSD interval (test code = 260) QT interval (test code = 264) QTC interval (test code = 265) P axis 1 (test code = 267) QRS axis 1 (test code = 268) T wave axis (test code = 270) EKG impression (test Sinus rhythm with 1st code = 273) degree AV block-ST & T wave abnormality, consider anterolateral ischemia-Prolonged QT-Abnormal ECG-No previous ECGs available-Electronicall y Signed By Catrachita Crump MD Min ([id number]) on 04/07/2021 2:31:33 PM [facility] 12 [id number] 20:31:34 Test Item Value Reference Range Interpretation Comments Ventricular rate (test code = 253) Atrial rate (test code = 255) MN interval (test code = 266) QRSD interval (test code = 260) QT interval (test code = 264) QTC interval (test code = 265) P axis 1 (test code = 267) QRS axis 1 (test code = 268) T wave axis (test code = 270) EKG impression (test Sinus rhythm with 1st code = 273) degree AV block-ST & T wave abnormality, consider anterolateral ischemia-Prolonged QT-Abnormal ECG-No previous ECGs available-Electronicall y Signed By Catrachita Crump MD Min ([id number]) on 04/07/2021 2:31:33 PM [facility] 12 [id number] 20:31:34 Test Item Value Reference Range Interpretation Comments Ventricular rate (test code = 253) Atrial rate (test code = 255) MN interval (test code = 266) QRSD interval (test code = 260) QT interval (test code = 264) QTC interval (test code = 265) P axis 1 (test code = 267) QRS axis 1 (test code = 268) T wave axis (test code = 270) EKG impression (test Sinus rhythm with 1st code = 273) degree AV block-ST & T wave abnormality, consider anterolateral ischemia-Prolonged QT-Abnormal ECG-No previous ECGs available-Electronicall y Signed By Catrachita Crump MD Min ([id number]) on 04/07/2021 2:31:33 PM [place] [address] [id number] 20:31:34 Test Item Value Reference Range Interpretation Comments Ventricular rate (test code = 253) Atrial rate (test code = 255) MN interval (test code = 266) QRSD interval (test code = 260) QT interval (test code = 264) QTC interval (test code = 265) P axis 1 (test code = 267) QRS axis 1 (test code = 268) T wave axis (test code = 270) EKG impression (test Sinus rhythm with 1st code = 273) degree AV block-ST & T wave abnormality, consider anterolateral ischemia-Prolonged QT-Abnormal ECG-No previous ECGs available-Electronicall y Signed By Catrachita Crump MD Min ([id number]) on 04/07/2021 2:31:33 PM [facility] 12 [id number] 20:31:34 Test Item Value Reference Range Interpretation Comments Ventricular rate (test code = 253) Atrial rate (test code = 255) MN interval (test code = 266) QRSD interval (test code = 260) QT interval (test code = 264) QTC interval (test code = 265) P axis 1 (test code = 267) QRS axis 1 (test code = 268) T wave axis (test code = 270) EKG impression (test Sinus rhythm with 1st code = 273) degree AV block-ST & T wave abnormality, consider anterolateral ischemia-Prolonged QT-Abnormal ECG-No previous ECGs available-Electronicall y Signed By Catrachita Crump MD ([id number]) on 04/07/2021 2:31:33 PM [facility] 12 [id number] 20:31:34 Test Item Value Reference Range Interpretation Comments Ventricular rate (test code = 253) Atrial rate (test code = 255) MN interval (test code = 266) QRSD interval (test code = 260) QT interval (test code = 264) QTC interval (test code = 265) P axis 1 (test code = 267) QRS axis 1 (test code = 268) T wave axis (test code = 270) EKG impression (test Sinus rhythm with 1st code = 273) degree AV block-ST & T wave abnormality, consider anterolateral ischemia-Prolonged QT-Abnormal ECG-No previous ECGs available-Electronicall y Signed By Catrachita Crump MD ([id number]) on 04/07/2021 2:31:33 PM [facility] fresh frozen [id number] 23:17:00 Test Item Value Reference Range Interpretation Comments Product name (test code Plasma frz w/in 24hrs = 25) thaw Unit number (test code = [id number]) Product code (test code A7772D35 = 3092) Dispense status (test Returned to not code = 24) transfused Blood expiration date (test code = 302) Blood type code (test code = 308) Blood type (test code = A POSITIVE 1314) Compatibility (test code Not required = 6400) [facility] frozen [id number] 23:17:00 Test Item Value Reference Range Interpretation Comments Product name (test code Plasma frz w/in 24hrs = 25) thaw Unit number (test code = [id number]) Product code (test code Y9673H57 = 3092) Dispense status (test Returned to BB not code = 24) transfused Blood expiration date (test code = 302) Blood type code (test code = 308) Blood type (test code = A POSITIVE 1314) Compatibility (test code Not required = 6400) [facility] fresh frozen [id number] 23:17:00 Test Item Value Reference Range Interpretation Comments Product name (test code Plasma frz w/in 24hrs = 25) thaw Unit number (test code = [id number]) Product code (test code T1967Q75 = 3092) Dispense status (test Returned to BB not code = 24) transfused Blood expiration date (test code = 302) Blood type code (test code = 308) Blood type (test code = A POSITIVE 1314) Compatibility (test code Not required = 6400) [facility] fresh frozen [id number] 23:17:00 Test Item Value Reference Range Interpretation Comments Product name (test code Plasma frz w/in 24hrs = 25) thaw Unit number (test code = [id number]) Product code (test code M5308D81 = 3092) Dispense status (test Returned to BB not code = 24) transfused Blood expiration date (test code = 302) Blood type code (test code = 308) Blood type (test code = A POSITIVE 1314) Compatibility (test code Not required = 6400) [facility] fresh frozen [id number] 23:17:00 Test Item Value Reference Range Interpretation Comments Product name (test code Plasma frz w/in 24hrs = 25) thaw Unit number (test code = [id number]) Product code (test code M4419I99 = 3092) Dispense status (test Returned to BB not code = 24) transfused Blood expiration date (test code = 302) Blood type code (test code = 308) Blood type (test code = A POSITIVE 1314) Compatibility (test code Not required = 6400) [facility] fresh frozen [id number] 23:17:00 Test Item Value Reference Range Interpretation Comments Product name (test code Plasma frz w/in 24hrs = 25) thaw Unit number (test code = [id number]) Product code (test code I7248X48 = 3092) Dispense status (test Returned to BB not code = 24) transfused Blood expiration date (test code = 302) Blood type code (test code = 308) Blood type (test code = A POSITIVE 1314) Compatibility (test code Not required = 6400) [facility] fresh frozen [id number] 23:17:00 Test Item Value Reference Range Interpretation Comments Product name (test code Plasma frz w/in 24hrs = 25) thaw Unit number (test code = [id number]) Product code (test code U6620O35 = 3092) Dispense status (test Returned to BB not code = 24) transfused Blood expiration date (test code = 302) Blood type code (test code = 308) Blood type (test code = A POSITIVE 1314) Compatibility (test code Not required = 6400) [facility] fresh frozen [id number] 23:17:00 Test Item Value Reference Range Interpretation Comments Product name (test code Plasma frz w/in 24hrs = 25) thaw Unit number (test code = [id number] [id number]) Product code (test code W6093I73 = 3092) Dispense status (test Returned to BB not code = 24) transfused Blood expiration date (test code = 302) Blood type code (test code = 308) Blood type (test code = A POSITIVE 1314) Compatibility (test code Not required = 6400) [facility] fresh frozen [id number] 23:17:00 Test Item Value Reference Range Interpretation Comments Product name (test code Plasma frz w/in 24hrs = 25) thaw Unit number (test code = [id number]) Product code (test code F6805Q94 = 3092) Dispense status (test Returned to BB not code = 24) transfused Blood expiration date (test code = 302) Blood type code (test code = 308) Blood type (test code = A POSITIVE 1314) Compatibility (test code Not required = 6400) [facility] fresh frozen [id number] 23:17:00 Test Item Value Reference Range Interpretation Comments Product name (test code Plasma frz w/in 24hrs = 25) thaw Unit number (test code = [id number]) Product code (test code S3211D92 = 3092) Dispense status (test Returned to not code = 24) transfused Blood expiration date (test code = 302) Blood type code (test code = 308) Blood type (test code = A POSITIVE 1314) Compatibility (test code Not required = 6400) [facility] [id number] 22:03:23 Test Item Value Reference Range Interpretation Comments Activated clotting time See_Comment Oper ator Name: Mack (test code = 5298) Reyes J rDevice ID: [id number] [Autom ated message] The sy stem which generated this result transmitted ref erence range: 96 - 152 sec. The reference range was not used to interpr et this result as normal/abnormal . [facility] [id number] 22:03:23 Test Item Value Reference Range Interpretation Comments Activated clotting time See_Comment Oper ator Name: Mack (test code = 5298) Reyes J rDevice ID: [id number] [Autom ated message] The sy stem which generated this result transmitted ref erence range: 96 - 152 sec. The reference range was not used to interpr et this result as normal/abnormal . [facility] [id number] 22:03:23 Test Item Value Reference Range Interpretation Comments Activated clotting time See_Comment Oper ator Name: Mack (test code = 5298) Reyes J rDevice ID: [id number] [Autom ated message] The sy stem which generated this result transmitted ref erence range: 96 - 152 sec. The reference range was not used to interpr et this result as normal/abnormal . [facility] [id number] 22:03:23 Test Item Value Reference Range Interpretation Comments Activated clotting time See_Comment Oper ator Name: Mack (test code = 5298) Reyes J rDevice ID: [id number] [Autom ated message] The sy stem which generated this result transmitted ref erence range: 96 - 152 sec. The reference range was not used to interpr et this result as normal/abnormal . [facility] [id number] 22:03:23 Test Item Value Reference Range Interpretation Comments Activated clotting time See_Comment Oper ator Name: Mack (test code = 5298) Eric Ruby rDevice ID: [id number] [Autom ated message] The sy stem which generated this result transmitted ref erence range: 96 - 152 sec. The reference range was not used to interpr et this result as normal/abnormal . [facility] [id number] 22:03:23 Test Item Value Reference Range Interpretation Comments Activated clotting time See_Comment Oper ator Name: Mack (test code = 5298) Eric Ruby rDevice ID: [id number] [Autom ated message] The sy stem which generated this result transmitted ref erence range: 96 - 152 sec. The reference range was not used to interpr et this result as normal/abnormal . [facility] [id number] 22:03:23 Test Item Value Reference Range Interpretation Comments Activated clotting time See_Comment Oper ator Name: Mack (test code = 5298) Eric Ruby rDevice ID: [id number] [Autom ated message] The sy stem which generated this result transmitted ref erence range: 96 - 152 sec. The reference range was not used to interpr et this result as normal/abnormal . [facility] [id number] 22:03:23 Test Item Value Reference Range Interpretation Comments Activated clotting time See_Comment Oper ator Name: Mack (test code = 5298) Eric Ruby rDevice ID: [id number] [Autom ated message] The sy stem which generated this result transmitted ref erence range: 96 - 152 sec. The reference range was not used to interpr et this result as normal/abnormal . [facility] [id number] 22:03:23 Test Item Value Reference Range Interpretation Comments Activated clotting time See_Comment Oper ator Name: Mack (test code = 5298) Reyes J rDevice ID: [id number] [Autom ated message] The sy stem which generated this result transmitted ref erence range: 96 - 152 sec. The reference range was not used to interpr et this result as normal/abnormal . [facility] [id number] 22:03:23 Test Item Value Reference Range Interpretation Comments Activated clotting time See_Comment Oper ator Name: Mack (test code = 5298) Reyes J rDevice ID: [id number] [Autom ated message] The sy stem which generated this result transmitted ref erence range: 96 - 152 sec. The reference range was not used to interpr et this result as normal/abnormal . [facility] blood gas, arterial and [id number] 22:02:14 Test Item Value Reference Range Interpretation Comments pH, arterial, POC 7.35-7.45 L (test code = 2744-1) pCO2, arterial, POC See_Comment H [Automa geeta message] (test code = 2018-8) The sys tem which generated this result transmit geeta reference range : 35 - 45 mmhg. The reference range was not used to interpret this result as normal/abnormal . pO2, arterial, POC See_Comment H [Automat ed message] (test code = 2703-7) The sys tem which generated this result transmit geeta reference range : 80 - 90 mmHg. The reference range was not used to interpret this result as normal/abnormal . Base excess, arterial, -4 mmol/L -2-2 L POC (test code = 1925-7) Bicarbonate, arterial, 22.7 mmol/L 21-28 POC (test code = 1960-4) CO2 calculated, 24 mmol/L 24-31 arterial, POC (test code = 2025-3) O2 saturation, 100 % 95-100 Sweep Molder Name : Shine arterial, POC (test Quin vice ID: code = 2708-6) [id number] POC sodium (test code 141 mmol/L 135-148 = 2947-0) POC potassium (test 4.8 mmol/L 3.5-5 code = 6298-4) POC hematocrit (test 24 % 37-47 L code = 4544-3) POC glucose (test code 164 mg/dL 65-99 H = 2339-0) Ionized calcium, 1.05 mmol/L 1.11-1.32 L arterial, POC (test code = 14941-9) POC hemoglobin (test 8.2 g/dL 12-16 L code = 718-7) Lab Interpretation Abnormal (test code = 28691-2) [facility] blood gas, arterial and qyfhy0112-08-05 22:02:14 Test Item Value Reference Range Interpretation Comments pH, arterial, POC 7.35-7.45 L (test code = 2744-1) pCO2, arterial, POC See_Comment H [Automa geeta message] (test code = 2018-09) The sys tem which generated this result transmit geeta reference range : 35 - 45 mmhg. The reference range was not used to interpret this result as normal/abnormal . pO2, arterial, POC See_Comment H [Automat ed message] (test code = 2703-7) The sys tem which generated this result transmit geeta reference range : 80 - 90 mmHg. The reference range was not used to interpret this result as normal/abnormal . Base excess, arterial, -4 mmol/L -2-2 L POC (test code = 1925-7) Bicarbonate, arterial, 22.7 mmol/L 21.0-28.0 POC (test code = 1959-4) CO2 calculated, 24 mmol/L 24-31 arterial, POC (test code = 2025-) O2 saturation, 100 % 95-100 Sweep Molder Name : Shine arterial, POC (test Rubin vice ID: code = 2708-6) [id number] POC sodium (test code 141 mmol/L 135-148 = 2947-0) POC potassium (test 4.8 mmol/L 3.5-5.0 code = 6298-4) POC hematocrit (test 24 % 37-47 L code = 4544-3) POC glucose (test code 164 mg/dL 65-99 H = 2339-0) Ionized calcium, 1.05 mmol/L 1.11-1.32 L arterial, POC (test code = 21201-0) POC hemoglobin (test 8.2 g/dL 12.0-16.0 L code = 718-7) Lab Interpretation Abnormal (test code = 65235-2) [facility] blood gas, arterial and [id number] 22:02:14 Test Item Value Reference Range Interpretation Comments pH, arterial, POC 7.35-7.45 L (test code = 2744-1) pCO2, arterial, POC See_Comment H [Automa geeta message] (test code = 2018-09) The sys tem which generated this result transmit geeta reference range : 35 - 45 mmhg. The reference range was not used to interpret this result as normal/abnormal . pO2, arterial, POC See_Comment H [Automat ed message] (test code = 2703-7) The sys tem which generated this result transmit geeta reference range : 80 - 90 mmHg. The reference range was not used to interpret this result as normal/abnormal . Base excess, arterial, -4 mmol/L -2-2 L POC (test code = 1924-) Bicarbonate, arterial, 22.7 mmol/L 21.0-28.0 POC (test code = 1959-) CO2 calculated, 24 mmol/L 24-31 arterial, POC (test code = 2025-3) O2 saturation, 100 % 95-100 Sweep Molder Name : Shine arterial, POC (test Quin vice ID: code = 2708-6) [id number] POC sodium (test code 141 mmol/L 135-148 = 2947-0) POC potassium (test 4.8 mmol/L 3.5-5.0 code = 6298-4) POC hematocrit (test 24 % 37-47 L code = 4544-3) POC glucose (test code 164 mg/dL 65-99 H = 2339-0) Ionized calcium, 1.05 mmol/L 1.11-1.32 L arterial, POC (test code = 28240-3) POC hemoglobin (test 8.2 g/dL 12.0-16.0 L code = 718-7) Lab Interpretation Abnormal (test code = 75345-6) [facility] blood gas, arterial and [id number] 22:02:14 Test Item Value Reference Range Interpretation Comments pH, arterial, POC 7.35-7.45 L (test code = 2744-1) pCO2, arterial, POC See_Comment H [Automa geeta message] (test code = 2018-09) The sys tem which generated this result transmit geeta reference range : 35 - 45 mmhg. The reference range was not used to interpret this result as normal/abnormal . pO2, arterial, POC See_Comment H [Automat ed message] (test code = 2703-7) The sys tem which generated this result transmit geeta reference range : 80 - 90 mmHg. The reference range was not used to interpret this result as normal/abnormal . Base excess, arterial, -4 mmol/L -2-2 L POC (test code = 1924-) Bicarbonate, arterial, 22.7 mmol/L 21.0-28.0 POC (test code = 1959-) CO2 calculated, 24 mmol/L 24-31 arterial, POC (test code = 2025-04) O2 saturation, 100 % 95-100 Sweep Molder Name : Shine arterial, POC (test Quin vice ID: code = 2708-6) [id number] POC sodium (test code 141 mmol/L 135-148 = 2947-0) POC potassium (test 4.8 mmol/L 3.5-5.0 code = 6298-4) POC hematocrit (test 24 % 37-47 L code = 4544-3) POC glucose (test code 164 mg/dL 65-99 H = 2339-0) Ionized calcium, 1.05 mmol/L 1.11-1.32 L arterial, POC (test code = 52764-6) POC hemoglobin (test 8.2 g/dL 12.0-16.0 L code = 718-7) Lab Interpretation Abnormal (test code = 43889-0) [facility] blood gas, arterial and [id number] 22:02:14 Test Item Value Reference Range Interpretation Comments pH, arterial, POC 7.35-7.45 L (test code = 2744-1) pCO2, arterial, POC See_Comment H [Automa geeta message] (test code = 2018-09) The sys tem which generated this result transmit geeta reference range : 35 - 45 mmhg. The reference range was not used to interpret this result as normal/abnormal . pO2, arterial, POC See_Comment H [Automat ed message] (test code = 2703-7) The sys tem which generated this result transmit geeta reference range : 80 - 90 mmHg. The reference range was not used to interpret this result as normal/abnormal . Base excess, arterial, -4 mmol/L -2-2 L POC (test code = 1925-7) Bicarbonate, arterial, 22.7 mmol/L 21.0-28.0 POC (test code = 1959-) CO2 calculated, 24 mmol/L 24-31 arterial, POC (test code = 2025-04) O2 saturation, 100 % 95-100 Sweep Molder Name : Shine arterial, POC (test Quin vice ID: code = 2708-6) [id number] POC sodium (test code 141 mmol/L 135-148 = 2947-0) POC potassium (test 4.8 mmol/L 3.5-5.0 code = 6298-4) POC hematocrit (test 24 % 37-47 L code = 4544-3) POC glucose (test code 164 mg/dL 65-99 H = 2339-0) Ionized calcium, 1.05 mmol/L 1.11-1.32 L arterial, POC (test code = 74607-5) POC hemoglobin (test 8.2 g/dL 12.0-16.0 L code = 718-7) Lab Interpretation Abnormal (test code = 88561-7) [facility] blood gas, arterial and [id number] 22:02:14 Test Item Value Reference Range Interpretation Comments pH, arterial, POC 7.35-7.45 L (test code = 2744-1) pCO2, arterial, POC See_Comment H [Automa geeta message] (test code = 2018-09) The sys tem which generated this result transmit geeta reference range : 35 - 45 mmhg. The reference range was not used to interpret this result as normal/abnormal . pO2, arterial, POC See_Comment H [Automat ed message] (test code = 2703-7) The sys tem which generated this result transmit geeta reference range : 80 - 90 mmHg. The reference range was not used to interpret this result as normal/abnormal . Base excess, arterial, -4 mmol/L -2-2 L POC (test code = 1925-7) Bicarbonate, arterial, 22.7 mmol/L 21.0-28.0 POC (test code = 1959-4) CO2 calculated, 24 mmol/L 24-31 arterial, POC (test code = 2025-) O2 saturation, 100 % 95-100 Sweep Molder Name : Shine arterial, POC (test Quin vice ID: code = 2708-6) [id number] POC sodium (test code 141 mmol/L 135-148 = 2947-0) POC potassium (test 4.8 mmol/L 3.5-5.0 code = 6298-4) POC hematocrit (test 24 % 37-47 L code = 4544-3) POC glucose (test code 164 mg/dL 65-99 H = 2339-0) Ionized calcium, 1.05 mmol/L 1.11-1.32 L arterial, POC (test code = 16551-4) POC hemoglobin (test 8.2 g/dL 12.0-16.0 L code = 718-7) Lab Interpretation Abnormal (test code = 33166-4) [facility] blood gas, arterial and [id number] 22:02:14 Test Item Value Reference Range Interpretation Comments pH, arterial, POC 7.35-7.45 L (test code = 2744-1) pCO2, arterial, POC See_Comment H [Automa geeta message] (test code = 2018-09) The sys tem which generated this result transmit geeta reference range : 35 - 45 mmhg. The reference range was not used to interpret this result as normal/abnormal . pO2, arterial, POC See_Comment H [Automat ed message] (test code = 2703-7) The sys tem which generated this result transmit geeta reference range : 80 - 90 mmHg. The reference range was not used to interpret this result as normal/abnormal . Base excess, arterial, -4 mmol/L -2-2 L POC (test code = 1925-7) Bicarbonate, arterial, 22.7 mmol/L 21.0-28.0 POC (test code = 1960-4) CO2 calculated, 24 mmol/L 24-31 arterial, POC (test code = 2025-3) O2 saturation, 100 % 95-100 Sweep Molder Name : Shine arterial, POC (test Quin vice ID: code = 2708-6) [id number] POC sodium (test code 141 mmol/L 135-148 = 2947-0) POC potassium (test 4.8 mmol/L 3.5-5.0 code = 6298-4) POC hematocrit (test 24 % 37-47 L code = 4544-3) POC glucose (test code 164 mg/dL 65-99 H = 2339-0) Ionized calcium, 1.05 mmol/L 1.11-1.32 L arterial, POC (test code = 99302-7) POC hemoglobin (test 8.2 g/dL 12.0-16.0 L code = 718-7) Lab Interpretation Abnormal (test code = 75300-2) [facility] blood gas, arterial and [id number] 22:02:14 Test Item Value Reference Range Interpretation Comments pH, arterial, POC 7.35-7.45 L (test code = 2744-1) pCO2, arterial, POC See_Comment H [Automa geeta message] (test code = 2018-09) The sys tem which generated this result transmit geeta reference range : 35 - 45 mmhg. The reference range was not used to interpret this result as normal/abnormal . pO2, arterial, POC See_Comment H [Automat ed message] (test code = 2703-7) The sys tem which generated this result transmit geeta reference range : 80 - 90 mmHg. The reference range was not used to interpret this result as normal/abnormal . Base excess, arterial, -4 mmol/L -2-2 L POC (test code = 1925-7) Bicarbonate, arterial, 22.7 mmol/L 21.0-28.0 POC (test code = 1960-4) CO2 calculated, 24 mmol/L 24-31 arterial, POC (test code = 2025-3) O2 saturation, 100 % 95-100 Sweep Molder Name : Shine arterial, POC (test Quin vice ID: code = 2708-6) [id number] POC sodium (test code 141 mmol/L 135-148 = 2947-0) POC potassium (test 4.8 mmol/L 3.5-5.0 code = 6298-4) POC hematocrit (test 24 % 37-47 L code = 4544-3) POC glucose (test code 164 mg/dL 65-99 H = 2339-0) Ionized calcium, 1.05 mmol/L 1.11-1.32 L arterial, POC (test code = 44881-4) POC hemoglobin (test 8.2 g/dL 12.0-16.0 L code = 718-7) Lab Interpretation Abnormal (test code = 84905-8) [facility] blood gas, arterial and [id number] 22:02:14 Test Item Value Reference Range Interpretation Comments pH, arterial, POC 7.35-7.45 L (test code = 2744-1) pCO2, arterial, POC See_Comment H [Automa geeta message] (test code = 2018-09) The sys tem which generated this result transmit geeta reference range : 35 - 45 mmhg. The reference range was not used to interpret this result as normal/abnormal . pO2, arterial, POC See_Comment H [Automat ed message] (test code = 2703-7) The sys tem which generated this result transmit geeta reference range : 80 - 90 mmHg. The reference range was not used to interpret this result as normal/abnormal . Base excess, arterial, -4 mmol/L -2-2 L POC (test code = 1924-7) Bicarbonate, arterial, 22.7 mmol/L 21.0-28.0 POC (test code = 1959-) CO2 calculated, 24 mmol/L 24-31 arterial, POC (test code = 2025-3) O2 saturation, 100 % 95-100 Sweep Molder Name : Shine arterial, POC (test Quin vice ID: code = 2708-6) [id number] POC sodium (test code 141 mmol/L 135-148 = 2947-0) POC potassium (test 4.8 mmol/L 3.5-5.0 code = 6298-4) POC hematocrit (test 24 % 37-47 L code = 4544-3) POC glucose (test code 164 mg/dL 65-99 H = 2339-0) Ionized calcium, 1.05 mmol/L 1.11-1.32 L arterial, POC (test code = 38147-2) POC hemoglobin (test 8.2 g/dL 12.0-16.0 L code = 718-7) Lab Interpretation Abnormal (test code = 81061-5) [facility] blood gas, arterial and [id number] 22:02:14 Test Item Value Reference Range Interpretation Comments pH, arterial, POC 7.35-7.45 L (test code = 2744-1) pCO2, arterial, POC See_Comment H [Automa geeta message] (test code = 2018-09) The sys tem which generated this result transmit geeta reference range : 35 - 45 mmhg. The reference range was not used to interpret this result as normal/abnormal . pO2, arterial, POC See_Comment H [Automat ed message] (test code = 2703-7) The sys tem which generated this result transmit geeta reference range : 80 - 90 mmHg. The reference range was not used to interpret this result as normal/abnormal . Base excess, arterial, -4 mmol/L -2-2 L POC (test code = 1924-) Bicarbonate, arterial, 22.7 mmol/L 21.0-28.0 POC (test code = 1959-4) CO2 calculated, 24 mmol/L 24-31 arterial, POC (test code = 2025-3) O2 saturation, 100 % 95-100 Sweep Molder Name : Shine arterial, POC (test Quin vice ID: code = 2708-6) [id number] POC sodium (test code 141 mmol/L 135-148 = 2947-0) POC potassium (test 4.8 mmol/L 3.5-5.0 code = 6298-4) POC hematocrit (test 24 % 37-47 L code = 4544-3) POC glucose (test code 164 mg/dL 65-99 H = 2339-0) Ionized calcium, 1.05 mmol/L 1.11-1.32 L arterial, POC (test code = 54535-3) POC hemoglobin (test 8.2 g/dL 12.0-16.0 L code = 718-7) Lab Interpretation Abnormal (test code = 72218-4) [facility]cf4524[facility]:16[facility] Test Item Value Reference Range Interpretation Comments Product name (test code Platelets Aph LR, = 25) Path Red cont2 Unit number (test code = [id number]) Product code (test code R5824U11 = 3092) Dispense status (test Transfused code = 24) Blood expiration date (test code = 302) Blood type code (test code = 308) Blood type (test code = A POSITIVE 1314) Compatibility (test code Not required = 6400) [facility] tagpwquc3799-62-25 21:16:00 Test Item Value Reference Range Interpretation Comments Product name (test code Platelets Aph LR, = 25) Path Red cont2 Unit number (test code = [id number]) Product code (test code E1419U48 = 3092) Dispense status (test Transfused code = 24) Blood expiration date (test code = 302) Blood type code (test code = 308) Blood type (test code = A POSITIVE 1314) Compatibility (test code Not required = 6400) [facility] [id number] 21:16:00 Test Item Value Reference Range Interpretation Comments Product name (test code Platelets Aph LR, = 25) Path Red cont2 Unit number (test code = [id number]) Product code (test code V1873J73 = 3092) Dispense status (test Transfused code = 24) Blood expiration date (test code = 302) Blood type code (test code = 308) Blood type (test code = A POSITIVE 1314) Compatibility (test code Not required = 6400) [facility] platelet [id number] 21:16:00 Test Item Value Reference Range Interpretation Comments Product name (test code Platelets Aph LR, = 25) Path Red cont2 Unit number (test code = [id number]) Product code (test code D9932Z27 = 3092) Dispense status (test Transfused code = 24) Blood expiration date (test code = 302) Blood type code (test code = 308) Blood type (test code = A POSITIVE 1314) Compatibility (test code Not required = 6400) [facility] platelet glqtezdt9830-61-27 21:16:00 Test Item Value Reference Range Interpretation Comments Product name (test code Platelets Aph LR, = 25) Path Red cont2 Unit number (test code = [id number]) Product code (test code Z7016E94 = 3092) Dispense status (test Transfused code = 24) Blood expiration date (test code = 302) Blood type code (test code = 308) Blood type (test code = A POSITIVE 1314) Compatibility (test code Not required = 6400) [facility] platelet [id number] 21:16:00 Test Item Value Reference Range Interpretation Comments Product name (test code Platelets Aph LR, = 25) Path Red cont2 Unit number (test code = [id number]) Product code (test code C7498R58 = 3092) Dispense status (test Transfused code = 24) Blood expiration date (test code = 302) Blood type code (test code = 308) Blood type (test code = A POSITIVE 1314) Compatibility (test code Not required = 6400) [facility] platelet [id number] 21:16:00 Test Item Value Reference Range Interpretation Comments Product name (test code Platelets Aph LR, = 25) Path Red cont2 Unit number (test code = [id number]) Product code (test code W9174W73 = 3092) Dispense status (test Transfused code = 24) Blood expiration date (test code = 302) Blood type code (test code = 308) Blood type (test code = A POSITIVE 1314) Compatibility (test code Not required = 6400) [facility] [id number] 21:16:00 Test Item Value Reference Range Interpretation Comments Product name (test code Platelets Aph LR, = 25) Path Red cont2 Unit number (test code = [id number]) Product code (test code A5080J63 = 3092) Dispense status (test Transfused code = 24) Blood expiration date (test code = 302) Blood type code (test code = 308) Blood type (test code = A POSITIVE 1314) Compatibility (test code Not required = 6400) [facility] uvhrybpo2943-40-20 21:16:00 Test Item Value Reference Range Interpretation Comments Product name (test code Platelets Aph LR, = 25) Path Red cont2 Unit number (test code = [id number]) Product code (test code L1026U36 = 3092) Dispense status (test Transfused code = 24) Blood expiration date (test code = 302) Blood type code (test code = 308) Blood type (test code = A POSITIVE 1314) Compatibility (test code Not required = 6400) [facility] ykzzvnek5965-75-23 21:16:00 Test Item Value Reference Range Interpretation Comments Product name (test code Platelets Aph LR, = 25) Path Red cont2 Unit number (test code = [id number] 9408148) Product code (test code Q3379M11 = 3092) Dispense status (test Transfused code = 24) Blood expiration date (test code = 302) Blood type code (test code = 308) Blood type (test code = A POSITIVE 1314) Compatibility (test code Not required = 6400) [facility] mgmws[facility]9184[facility] 19:18:30 Test Item Value Reference Range Interpretation Comments Hemoglobin, syringe (test 6.7 g/dL 12-16 LL HG BS results called code = 718-7) to and read ba ck by Stephane BURCH at _ 04/06/2021 13 :18 __by RLS_. Lab Interpretation (test Abnormal code = 52177-0) [facility]2022-02-07 19:18:30 Test Item Value Reference Range Interpretation Comments Hemoglobin, syringe (test 6.7 g/dL 12.0-16.0 LL HG BS results called code = 718-7) to and read ba ck by Stephane BURCH at _ 04/06/2021 13 :18 __by RLS_. Lab Interpretation (test Abnormal code = 77851-1) [facility]2022-02-07 19:18:30 Test Item Value Reference Range Interpretation Comments Hemoglobin, syringe (test 6.7 g/dL 12.0-16.0 LL HG BS results called code = 718-7) to and read ba ck by Stephane BURCH at _ 04/06/2021 13 :18 __by RLS_. Lab Interpretation (test Abnormal code = 32848-1) [facility]2022-02-07 19:18:30 Test Item Value Reference Range Interpretation Comments Hemoglobin, syringe (test 6.7 g/dL 12.0-16.0 LL HG BS results called code = 718-7) to and read ba ck by Stephane BURCH at _ 04/06/2021 13 :18 __by RLS_. Lab Interpretation (test Abnormal code = 07453-0) [facility]2022-02-07 19:18:30 Test Item Value Reference Range Interpretation Comments Hemoglobin, syringe (test 6.7 g/dL 12.0-16.0 LL HG BS results called code = 718-7) to and read ba ck by Stephane BURCH at _ 04/06/2021 13 :18 __by RLS_. Lab Interpretation (test Abnormal code = 07895-9) [facility]2022-02-07 19:18:30 Test Item Value Reference Range Interpretation Comments Hemoglobin, syringe (test 6.7 g/dL 12.0-16.0 LL HG BS results called code = 718-7) to and read ba ck by Stephane BURCH at _ 04/06/2021 13 :18 __by RLS_. Lab Interpretation (test Abnormal code = 82775-3) [facility] [id number] 19:18:30 Test Item Value Reference Range Interpretation Comments Hemoglobin, syringe (test 6.7 g/dL 12.0-16.0 LL HG BS results called code = 718-7) to and read ba ck by Stephane BURCH at _ 04/06/2021 13 :18 __by RLS_. Lab Interpretation (test Abnormal code = 76801-0) [facility]2022-02-07 19:18:30 Test Item Value Reference Range Interpretation Comments Hemoglobin, syringe (test 6.7 g/dL 12.0-16.0 LL HG BS results called code = 718-7) to and read ba ck by Stephane BURCH at _ 04/06/2021 13 :18 __by RLS_. Lab Interpretation (test Abnormal code = 77723-8) [facility]2022-02-07 19:18:30 Test Item Value Reference Range Interpretation Comments Hemoglobin, syringe (test 6.7 g/dL 12.0-16.0 LL HG BS results called code = 718-7) to and read ba ck by Stephane BURCH at _ 04/06/2021 13 :18 __by RLS_. Lab Interpretation (test Abnormal code = 12969-1) [facility], ukbmaps6306-29-21 19:18:30 Test Item Value Reference Range Interpretation Comments Hemoglobin, syringe (test 6.7 g/dL 12.0-16.0 LL HG BS results called code = 718-7) to and read ba ck by Stephane BURCH at _ 04/06/2021 13 :18 __by RLS_. Lab Interpretation (test Abnormal code = 99688-7) [facility] [id number] 17:19:00 Test Item Value Reference Range Interpretation Comments ABO grouping (test code = 883-9) A Rh type (test code = 77867-7) NEG Antibody screen (gel) (test code = NEG 890-4) [facility] [Presence] in Respiratory specimen by CHANTEL with probe [id number] 15:56:37 Test Item Value Reference Range Interpretation Comments SARS-CoV-2 (COVID-19) RNA [Presence] Detected Not-Detected in Respiratory specimen by CHANTEL with probe detection (test code = 23320-9) 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 (test code = 81322-7) Whether the patient has symptoms related to condition of interest (test code = 28147-5) Patient was hospitalized because of this condition (test code = 53856-8) Whether the patient was admitted to intensive care unit (ICU) for condition of interest (test code = 96500-1) Whether patient resides in a congregate care setting (test code = 27179-8) [facility] [Presence] in Respiratory specimen by CHANTEL with probe [id number] 00:59:54 Test Item Value Reference Range Interpretation Comments SARS-CoV-2 (COVID-19) RNA Not detected Not-Detected [Presence] in Respiratory specimen by CHANTEL with probe detection (test code = 38652-5) 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 (test code = 56098-4) Whether the patient has symptoms related to condition of interest (test code = 19883-7) Patient was hospitalized because of this condition (test code = 15864-7) Whether the patient was admitted to intensive care unit (ICU) for condition of interest (test code = 59100-9) Whether patient resides in a congregate care setting (test code = 29967-3) [facility] [id number] 00:53:16 Test Item Value Reference Range Interpretation Comments Ventricular rate (test code = 253) Atrial rate (test code = 255) MN interval (test code = 266) QRSD interval [...] 13:01,-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- [facility] Pre/Post [id number] 00:53:16 Test Item Value Reference Range Interpretation Comments Ventricular rate (test code = 253) Atrial rate (test code = 255) MN interval (test code = 266) QRSD interval [...] 13:01,-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- [facility] Pre/Post [id number] 00:53:16 Test Item Value Reference Range Interpretation Comments Ventricular rate (test code = 253) Atrial rate (test code = 255) MN interval (test code = 266) QRSD interval [...] 13:01,-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- [facility] Pre/Post [id number] 00:53:16 Test Item Value Reference Range Interpretation Comments Ventricular rate (test code = 253) Atrial rate (test code = 255) MN interval (test code = 266) QRSD interval [...] 13:01,-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- [facility] Pre/Post [id number] 00:53:16 Test Item Value Reference Range Interpretation Comments Ventricular rate (test code = 253) Atrial rate (test code = 255) MN interval (test code = 266) QRSD interval [...] 13:01,-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- [facility] Pre/Post [id number] 00:53:16 Test Item Value Reference Range Interpretation Comments Ventricular rate (test code = 253) Atrial rate (test code = 255) MN interval (test code = 266) QRSD interval [...] 13:01,-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- [facility] Pre/Post [id number] 00:53:16 Test Item Value Reference Range Interpretation Comments Ventricular rate (test code = 253) Atrial rate (test code = 255) MN interval (test code = 266) QRSD interval [...] 13:01,-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- [facility] Pre/Post [id number] 00:53:16 Test Item Value Reference Range Interpretation Comments Ventricular rate (test code = 253) Atrial rate (test code = 255) MN interval (test code = 266) QRSD interval [...] 13:01,-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- [facility] Pre/Post [id number] 00:53:16 Test Item Value Reference Range Interpretation Comments Ventricular rate (test code = 253) Atrial rate (test code = 255) MN interval (test code = 266) QRSD interval [...] 13:01,-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- [facility] Pre/Post [id number] 00:53:16 Test Item Value Reference Range Interpretation Comments Ventricular rate (test code = 253) Atrial rate (test code = 255) MN interval (test code = 266) QRSD interval [...] 13:01,-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- [facility] Pre/Post [id number] 00:53:16 Test Item Value Reference Range Interpretation Comments Ventricular rate (test code = 253) Atrial rate (test code = 255) MN interval (test code = 266) QRSD interval [...] 13:01,-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- [facility] 12 [id number] 22:40:10 Test Item Value Reference Range Interpretation [...] undetermined rhythm precludes rhythm comparison, needs review- [facility] [id number] 20:43:36 Test Item Value Reference Range Interpretation Comments POC glucose (test code 208 mg/dL 65-99 [facility] Name: Melody = [id number]) Shaun ID: [id number] able: HMW 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 Interpretation Abnormal (test code = 76513-3) [facility] [Presence] in Respiratory specimen by CHANTEL with probe [id number] 00:35:59 Test Item Value Reference Range Interpretation Comments SARS-CoV-2 (COVID-19) RNA Not detected Not-Detected [Presence] in Respiratory specimen by CHANTEL with probe detection (test code = 49905-3) 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 (test code = 39680-5) Whether the patient has symptoms related to condition of interest (test code = 35418-3) Patient was hospitalized because of this condition (test code = 56337-5) Whether the patient was admitted to intensive care unit (ICU) for condition of interest (test code = 65007-5) Whether patient resides in a congregate care setting (test code = 45791-1) [facility] ED Preliminary Interpretation - Not an Order 2020-08-06 18:13:40 Test Item Value Reference Range Interpretation Comments BETH (test code = BETH) Norman Nolan MD 08/06/2020 10:25 [facility] ED Preliminary Interpretation - Not an OrderPerformed by: Norman Nolan MDAuthorized by: Norman Nolan MD ECG reviewed by ED Physician in the absence of a hybrid powertrain development engineer: yes Interpretation: Interpretation: abnormal Rate: ECG rate: 65 BPM ECG rate assessment: normal Rhythm: Rhythm: other rhythm Ectopy: Ectopy: none QRS: QRS axis: Normal QRS intervals: Normal (92 ms)Conduction: Conduction: normal ST segments: ST segments: AbnormalT waves: T waves: non-specific Other findings: Other findings: prolonged qTc interval Comments: QT/QTc: 534/555 msPR Interval: * ms Lab Interpretation Abnormal (test code = 50554-1) [facility] (w Contrast, Strain and 3D if needed)2020-07-15 01:37:44 Test Item Value Reference Range Interpretation Comments Ao Root Diameter 3.24 cm (test code = 0186557929) AoV Area, Vmax (test 1.67 cm2 code = 9921876226) AoV Area, VTI (test 1.76 cm2 code = 9686702456) AoV Mean PG (test mmHg code = 5024754879) AoV Peak PG (test mmHg code = 3279128875) AoV Vmax (test code 1.72 m/s = 4219390492) AoV VTI (test code = 0.35 m 6668612533) IVS,d (test code = 1.06 cm 6242569511) IVS/LVPW,2D (test code = 5327662899) Left Atrium 4.44 cm Dimension Anterior (test code = 6552338889) LA Area d A4C (test 20.62 cm2 code = 9586339423) LV,d (test code = 5.80 cm 2646766592) LV EF,2D (test code 38.89 % = 9482953288) LV,s (test code = 4.92 cm 6489239590) LVOT area (test code 3.49 cm2 = 7780382083) LVOT Diam,S (test 2.11 cm code = 9294597642) LVOT Vmax (test code 0.82 m/s = 8194701288) LVOT VTI (test code 0.18 m = 6399121839) LVPWD,d (test code = 1.02 cm 0565911473) PV Mean Grad (test mmHg code = 7609672531) PV Pk Grad (test mmHg code = 7512747533) PV VMAX (test code = 1.32 m/s 6071726464) PV VTI (test code = 0.26 m 9721241517) RVOT Vmax (test code 0.59 m/s = 7031113397) RVSP (TR) (test code mmHg = 6048034774) TR Vpeak (test code 2.95 mm/s = 4895792520) MV E A ratio (test code = 1830660719) TR pk grad (test mmHg code = 0541824835) PV Vmn (test code = 8848990484) MR Vmax (test code = 5.16 m/s 2853371329) E wave decelartion msec time (test code = 0360453241) MV Peak A Nick (test 1.10 m/s code = 5382528652) MV valve area p 1/2 5.06 cm2 method (test code = 3213650153) MV Peak E Nick (test 1.00 m/s code = 5603384964) MV stenosis pressure 43.50 ms 1/2 time (test code = 7299999370) LVOT stroke volume 0.63 cm3 (test code = 4560957254) AV LVOT peak mmHg gradient (test code = 0994105984) RVSP (test code = mmHg 9722560636) Ao Root Diameter 3.24 cm (test code = 7101300237) MV mean gradient mmHg (test code = 6526693933) LV SYS VOL (test 114.00 ml code = 4878988380) LV CURRY VOL (test 166.56 ml code = 0190280379) LV SV Teich 2D (test 52.56 ml code = 5686992508) LV Vol s Teich PSAX 114.00 ml (test code = 6787961239) LVOT CO (test code = 4.52 l/min 9517889482) LVOT HR for LVOT CO bpm (test code = 3436179098) MR peak grad (test mmHg code = 0809799395) MV Vmax (test code = 1.13 m 2365644983) MV VTI Tips (test 0.18 m code = 0268411396) RVOT pk grad (test mmHg code = 6694953209) AoV Vmn (test code = 6101902845) IVS s 2D (test code = 3097168660) LV FS Teich 2D (test code = 7819488427) MV AE ratio (test code = 7451352404) LV FS Cube 2D (test code = 6623537764) LVOT Vmn (test code = 4402083430) Aov area Vmn (test 1.83 cm2 code = 6767378364) LA Vol d MOD A4C 55.09 ml (test code = 5662088338) LVOT mean grad (test mmHg code = 9607889897) MAX Pred HR (test code = 6385782493) RVOT mean grad (test mmHg code = 0583775597) RVOT Vmn (test code 0.39 m/s = 9655850929) RVOT VTI (test code 0.10 m = 6205168860) 85 of MPHR (test code = 1212480928) Calc MPHR (test code bpm = 3099418219) IVS pct thck PLAX 24.74 % (test code = 2490163662) LV SV Cube 2D (test 75.87 ml code = 7325379006) LV vol d cube 2D 195.12 ml (test code = 1699102303) LV vol s cube 2D 119.25 ml (test code = 5185777305) LVPW pct thck PLAX 35.01 % (test code = 6878318615) LVPW s PLAX (test 1.37 cm code = 6264400198) MV Decel slope (test 6.69 m/s2 code = 3031841094) Pred Exer Dur R1 (test code = 9341044609) Pred METS R1 (test code = 9010046695) Velocity Ratio 0.48 m/s (V1/V2) (test code = 4689) EF (test code = 31.56 % 7687999949) E/A ratio (test code = 3291478454) LVOT VTI (CM) (test 18.00 cm code = 5870949825) BETH (test code = Left ventricular BETH) [...] views were obtained. Study quality is adequate. [facility] protein/creatinine ratio, [id number] 18:27:55 Test Item Value Reference Range Interpretation Comments Prot/creat ratio, 0.16 mg/L Corrected result; urine (test code = previousl y reported as 2890-2) @RANDY on 2020 at 20:30 by I/AUT [facility] RNA [Presence] in Respiratory specimen by CHANTEL with probe [id number] 01:44:30 Test Item Value Reference Range Interpretation Comments SARS-CoV-2 (COVID-19) RNA Not detected Not-Detected [Presence] in Respiratory specimen by CHANTEL with probe detection (test code = 44341-4) 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 (test code = 84028-0) Whether the patient has symptoms related to condition of interest (test code = 95262-2) Patient was hospitalized because of this condition (test code = 32242-7) Whether the patient was admitted to intensive care unit (ICU) for condition of interest (test code = 63922-7) Whether patient resides in a congregate care setting (test code = 39124-4) [facility]
[2022-02-15 13:23] LABS: Absolute Lymphocytes (CBC) 0.8 K/uL (0.7-4.9); Hematocrit 25.7 % (36.0-45.0); Lymphocytes % 9.9 % (15.3-44.8); MCV 88.8 fL (80-100)
[2022-02-15 13:55] LABS: AST/SGOT 10 U/L (15-37); Albumin 1.8 g/dL (3.4-5.0); Alkaline Phosphatase 77 U/L (45-117); BUN Blood Urea Nitrogen 44 mg/dL (7-18); Bicarbonate 25 mmol/L (21-32); Bilirubin Total 0.3 mg/dL (0.2-1.0); Glomerular Filtration Rate 5 ml/min (=/>90); Glucose Level 201 mg/dL (74-106); Lipase 214 U/L (73-393); Protein, Total 5.7 g/dL (6.4-8.2); Sodium Level 131 mmol/L (136-145)
[2022-02-15 13:56] LABS: ALT/SGPT < 10 U/L (13-56)
[2022-02-15 13:58] LABS: Potassium 2.4 mmol/L (3.5-5.1)
--- NOTE | 2022-02-15 14:06 | RAD REPORT ---
EXAM DESCRIPTION: CT - Abdomen Pelvis Wo Contrast - 02/15/2022 1:30 pm CLINICAL HISTORY: Abdominal pain COMPARISON: February 2021 TECHNIQUE: Computed axial tomography of the abdomen and pelvis was obtained. IV and oral contrast we re not requested. All CT scans are performed using dose optimization technique as appropriate and may include automated exposure control or mA/KV adjustment according to patient size. FINDINGS: The evaluation of solid organs, vessels and bowel is limited secondary to the lack of con trast administration. The liver, spleen, pancreas, and adrenals appear grossly normal. Kidneys mildly diminished in size Diverticula stem from the colon without evidence of diverticulitis. Small amount of ascites. Peritoneal catheter in place. Laxity of right lateral abdominal wall. IMPRESSION: No acute abnormality is displayed.
[2022-02-15] MEDS ORDERED: POTASSIUM CL SA 10 MEQ TAB PO ONE (14:19)
[2022-02-15] MEDS ORDERED: ONDANSETRON 4 MG/2 ML VIAL ONE (14:28)
--- NOTE | 2022-02-15 14:34 | ER ---
Nurse's Notes [facility] Name: Sierra Iqbal Age: 81 yrs Sex: Female : 1940 Arrival Date: 02/15/2022 Time: 12:54 Bed 8 Private MD: Diagnosis: Nausea with vomiting, unspecified;Diarrhea, unspecified;Hypokalemia;Weakness Presentation: 02/15 12:45 Chief complaint: EMS states: NVD x 1 week, upon arrival to pt home pt was 80% RA, place vg1 on O2 with 4 L NC. Pt took 4 mg PO of zofran at home before EMS arrived. 12:45 Coronavirus screen: Vaccine status: Patient reports receiving the 2nd dose of the covid vg1 vaccine. Client denies travel out of the [place] in the last 14 days. Ebola Screen: Patient negative for fever greater than or equal to 101.5 degrees Fahrenheit, and additional compatible Ebola Virus Disease symptoms. Initial Sepsis Screen: Does the patient meet any 2 criteria? RR > 20 per min. Does the patient have a suspected source of infection? No. Patient's initial sepsis screen is negative. Risk Assessment: Do you want to hurt yourself or someone else? Patient reports no desire to harm self or others. Onset of symptoms was February 08, 2022. 12:45 Method Of Arrival: EMS: [facility] vg1 12:45 Acuity: BRAD 3 vg1 12:45 Care prior to arrival: Medication(s) given: Normal saline infusion, continued IV vg1 initiated. 20 GA, in the left antecubital area. Triage Assessment: 12:45 General: Appears uncomfortable, Behavior is cooperative. Pain: Complains of pain in vg1 left upper quadrant and left lower quadrant Pain currently is 0 out of 10 on a pain scale. at worst was 10 out of 10 on a pain scale. Pain began x 1 week. EENT: No signs and/or symptoms were reported regarding the EENT system. Neuro: Level of Consciousness is awake, alert, obeys commands, Oriented to person, place, time, situation. Cardiovascular: Patient's skin is warm and dry. Respiratory: Airway is patent Respiratory effort is even, unlabored, Respiratory pattern is tachypnea. GI: Abdomen is round non-distended, Reports diarrhea, nausea, vomiting. : No signs and/or symptoms were reported regarding the genitourinary system. Derm: Skin is pink, warm \T\ dry. Musculoskeletal: Circulation, motion, and sensation intact. Historical: - Allergies: 13:03 No Known Allergies; vg1 - Home Meds: 13:03 aspirin 81 mg Oral tab daily [Active]; midodrine Oral [Active]; vg1 - PMHx: 13:03 Congestive heart failure; diabetes mellitus; ESRD; Hypertensive disorder; PERITONEAL vg1 DIALYSIS; UTI; - PSHx: 13:03 bypass; Pacemaker placement; Total abdominal hysterectomy; vg1 - Immunization history:: Client reports receiving the 2nd dose of the Covid vaccine. - Social history:: Smoking status: Patient denies any tobacco usage or history of. Screenin:06 [facility] ED Fall Risk Assessment (Adult) History of falling in the last 3 months, vg1 including since admission No falls in past 3 months (0 pts) Confusion or Disorientation No (0 pts) Intoxicated or Sedated No (0 pts) Impaired Gait No (0 pts) Mobility Assist Device Used No (0 pt) Altered Elimination No (0 pt) Score/Fall Risk Level 0 - 2 = Low Risk Oriented to surroundings, Maintained a safe environment, Educated pt \T\ family on fall prevention, incl call for assistance when getting out of bed, Assessed \T\ reinforced patient's understanding of fall precautions. Abuse screen: Denies threats or abuse. Nutritional screening: Has had N/V for 3 or more days. Tuberculosis screening: No symptoms or risk factors identified. Assessment: 13:00 GI: Reports lower abdominal pain, upper abdominal pain. ko1 13:06 Reassessment: SEE TRIAGE. vg1 14:12 Reassessment: Lab called with critical K+ level of 2.4, notified Toni Santillan, orders ko1 received. Vital Signs: 12:45 BP 107 / 90; Pulse 77; Resp 22; Temp 98.2; Pulse Ox 97% on 4 lpm NC; Weight 81.19 kg; vg1 Height 5 ft. 5 in. (165.10 cm); Pain 0/10; 14:00 BP 119 / 70; Pulse 69; Resp 17; Pulse Ox 95% on 4 lpm NC; vg1 12:45 Body Mass Index 29.79 (81.19 kg, 165.10 cm) vg1 ED Course: 12:45 Arm band placed on. vg1 12:54 Patient arrived in ED. vg1 12:54 Gissel Santillan FNP-C [facility] kb 12:54 Dm Michaud DO is Attending Physician. kb 13:00 Grace Barillas, RN is Primary Nurse. ko1 13:02 Triage completed. vg1 13:06 Patient has correct armband on for positive identification. Placed in gown. Bed in low vg1 position. Call light in reach. Side rails up X2. Adult w/ patient. Client placed on continuous cardiac and pulse oximetry monitoring. NIBP monitoring applied. 13:18 CBC with Diff Sent. ko1 13:18 CMP Sent. ko1 13:18 Lipase Sent. ko1 13:30 Abdomen In Process Unspecified. EDMS 14:33 Delmar Goode MD is Hospitalizing Provider. kb 14:40 SARS RAPID Sent. ko1 Administered Medications: 13:00 Drug: NS 0.9% 1000 ml Route: IV; Rate: 1 bolus; Site: left forearm; ko1 14:15 Follow up: Response: No adverse reaction; IV Status: Completed infusion; IV Intake: ko1 1000ml 14:18 Drug: Potassium Chloride 40 mEq Route: PO; ko1 14:29 Drug: Zofran (Ondansetron) 4 mg Route: IVP; Site: left forearm; ko1 Medication: 13:07 VIS not applicable for this client. vg1 Intake: 14:15 IV: 1000ml; Total: 1000ml. ko1 14:15 IV: 1000ml (IV Fluid); Total: 2000ml. ko1 Outcome: 14:33 Decision to Hospitalize by Provider. kb 18:00 Patient left the ED. ko1 Signatures: Dispatcher [employer] EDMS Gissel Santillan FNP-C FNP-Ckb Garcia, Victoria RN RN vg1 Grace Barillas, RN RN ko1
--- NOTE | 2022-02-15 14:34 | EDPHYS ---
Physician Documentation [facility] Name: Sierra Iqbal Age: 81 yrs Sex: Female : 1940 Arrival Date: 02/15/2022 Time: 12:54 Bed 8 Private MD: ED Physician Dm Michaud HPI: 02/15 14:35 This 81 yrs old Female presents to ER via EMS with complaints of kb Nausea/Vomiting/Diarrhea. 14:35 The patient presents to the emergency department with nausea, vomiting, diarrhea, kb abdominal pain. Onset: The symptoms/episode began/occurred 7 day(s) ago. Possible causes: unknown. The symptoms are aggravated by nothing. The symptoms are alleviated by nothing. Associated signs and symptoms: Pertinent positives: abdominal pain, diarrhea, nausea, vomiting. Severity of symptoms: At their worst the symptoms were moderate in the emergency department the symptoms are unchanged. The patient has not experienced similar symptoms in the past. The patient has not recently seen a physician. Pt reports n/v/d for 5-7 days. States she called 911 today because she was too weak to get up. . Historical: - Allergies: 13:03 No Known Allergies; vg1 - Home Meds: 13:03 aspirin 81 mg Oral tab daily [Active]; midodrine Oral [Active]; vg1 - PMHx: 13:03 Congestive heart failure; diabetes mellitus; ESRD; Hypertensive disorder; PERITONEAL vg1 DIALYSIS; UTI; - PSHx: 13:03 bypass; Pacemaker placement; Total abdominal hysterectomy; vg1 - Immunization history:: Client reports receiving the 2nd dose of the Covid vaccine. - Social history:: Smoking status: Patient denies any tobacco usage or history of. ROS: 14:34 Constitutional: Negative for fever, chills, and weight loss. kb 14:34 Abdomen/GI: Positive for abdominal pain, nausea, vomiting, and diarrhea. 14:34 Neuro: Positive for weakness. 14:34 All other systems are negative. Exam: 14:34 Constitutional: This is a well developed, well nourished patient who is awake, alert, kb and in no acute distress. Head/Face: Normocephalic, atraumatic. ENT: Moist Mucous membranes Cardiovascular: Regular rate and rhythm with a normal S1 and S2. No gallops, murmurs, or rubs. No pulse deficits. Respiratory: Respirations even and unlabored. No increased work of breathing. Talking in full sentences Skin: Warm, dry with normal turgor. Normal color. MS/ Extremity: Pulses equal, no cyanosis. Neurovascular intact. Full, normal range of motion. Neuro: Awake and alert, GCS 15, oriented to person, place, time, and situation. Moves all extremities. Normal gait. Psych: Awake, alert, with orientation to person, place and time. Behavior, mood, and affect are within normal limits. 14:34 Abdomen/GI: Inspection: abdomen appears normal, Bowel sounds: normal, Palpation: soft, in all quadrants, mild abdominal tenderness, in the left upper quadrant and left lower quadrant. Vital Signs: 12:45 BP 107 / 90; Pulse 77; Resp 22; Temp 98.2; Pulse Ox 97% on 4 lpm NC; Weight 81.19 kg; vg1 Height 5 ft. 5 in. (165.10 cm); Pain 0/10; 14:00 BP 119 / 70; Pulse 69; Resp 17; Pulse Ox 95% on 4 lpm NC; vg1 12:45 Body Mass Index 29.79 (81.19 kg, 165.10 cm) vg1 MDM: 12:55 Patient medically screened. kb 14:34 Data reviewed: vital signs, nurses notes. Data interpreted: Pulse oximetry: on room air kb is 95 %. Interpretation: normal. Counseling: I had a detailed discussion with the patient and/or guardian regarding: the historical points, exam findings, and any diagnostic results supporting the discharge/admit diagnosis, lab results, radiology results, the need for further work-up and treatment in the hospital. Physician consultation: Fransisco accepts pt for admission under Dr Goode. 02/15 12:59 Order name: CBC with Diff; Complete Time: 13:39 kb 02/15 12:59 Order name: CMP; Complete Time: 14:00 kb 02/15 12:59 Order name: Lipase; Complete Time: 14:00 kb 02/15 14:34 Order name: SARS RAPID; Complete Time: 15:00 kb 02/15 15:40 Order name: Basic Metabolic Panel EDMS 02/15 15:40 Order name: Basic Metabolic Panel EDMS 02/15 15:44 Order name: Magnesium; Complete Time: 16:33 EDMS 02/15 15:44 Order name: Phosphorus; Complete Time: 16:33 EDMS 02/15 15:44 Order name: Urinalysis EDMS 02/15 15:44 Order name: Basic Metabolic Panel EDMS 02/15 15:44 Order name: Basic Metabolic Panel EDMS 02/15 15:44 Order name: CBC with Automated Diff EDMS 02/15 15:44 Order name: CBC with Automated Diff EDMS 02/15 16:05 Order name: Magnesium kb 02/15 12:59 Order name: IV Saline Lock; Complete Time: 13:00 kb 02/15 12:59 Order name: Labs collected and sent; Complete Time: 13:17 kb 02/15 13:25 Order name: Abdomen ; Complete Time: 14:10 EDMS 02/15 15:40 Order name: Renal EDMS 02/15 16:06 Order name: Phosphorus kb Administered Medications: 13:00 Drug: NS 0.9% 1000 ml Route: IV; Rate: 1 bolus; Site: left forearm; ko1 14:15 Follow up: Response: No adverse reaction; IV Status: Completed infusion; IV Intake: ko1 1000ml 14:18 Drug: Potassium Chloride 40 mEq Route: PO; ko1 14:29 Drug: Zofran (Ondansetron) 4 mg Route: IVP; Site: left forearm; ko1 Disposition: 22:04 Co-signature as Attending Physician, Dm CARLOS was immediately available on-site ms3 in the Emergency Department for consultation in the care of the patient. . Disposition Summary: 02/15/22 14:33 Hospitalization Ordered Hospitalization Status: Observation kb Provider: Delmar Goode Location: Telemetry/[facility] (observation) kb Condition: Stable kb Problem: new kb Symptoms: are unchanged kb Bed/Room Type: Standard kb Room Assignment: 207(02/15/22 16:42) em1 Diagnosis - Nausea with vomiting, unspecified kb - Diarrhea, unspecified kb - Hypokalemia kb - Weakness kb Forms: - Medication Reconciliation Form kb - SBAR form kb Signatures: Dispatcher [employer] EDMS Gissel Santillan, SUDHEER WALLACE[facility] em1 Mihaela Park, RN RN sandra1 Dm Michaud DO DO ms3 Grace Barillas RN RN ko1 Corrections: (The following items were deleted from the chart) 13:25 13:03 Abdomen Pelvis W Con+CT.RAD.BRZ ordered. EDMS EDMS 16:42 14:33 kb em1
[2022-02-15 14:58] LABS: SARS-CoV-2 Antigen Rapid Res Negative (Negative)
[2022-02-15] MEDS ORDERED: HYDROCODONE/APAP 5/325 MG TAB PO PRN (15:35)
[2022-02-15] MEDS ORDERED: ACETAMINOPHEN 325 MG TABLET PO PRN (15:35)
[2022-02-15] MEDS ORDERED: ONDANSETRON 4 MG/2 ML VIAL IV PRN (15:38)
[2022-02-15] MEDS ORDERED: MIDODRINE HCL 5 MG TABLET PO PRN (15:44)
[2022-02-15] MEDS ORDERED: GLUCAGON 1 MG/VIAL IM PRN (15:51)
--- NOTE | 2022-02-15 15:53 | P.HP ---
Certification for Inpatient Patient admitted to: Observation With expected LOS: <2 Midnights Patient will require the following post-hospital care: None Practitioner: I am a practitioner with admitting privileges, knowledge of patient current condition, hospital course, and medical plan of care. Services: Services provided to patient in accordance with Admission requirements found in Title 42 Section 412.3 of the Code of Federal Regulations <Batool Woodward Giancarlo - Last Filed: 02/16/22 01:03> Patient History Date of Service: 02/15/22 Reason for admission: N\V\D History of Present Illness: Patient is a 81-year-old female with a past medical history significant for CHF, ESRD, hypertension, CVA, GERD, DM 2 who presents with complaint of nausea, vomiting and diarrhea that has been ongoing for the past 1 week. Patient also reports intermittent left lower quadrant pain rated as 7/10 in severity and described as sharp in quality. Patient reported associated signs and symptoms of fever, chills, fatigue, weakness and shortness of breath. Patient denies any other signs or symptoms. Symptoms are aggravated or relieved by nothing. Patient decided to present to the ER due top worsening symptoms. Of note, patient reported that she has had poor appetite for the past 1 month. - Past Medical/Surgical History Diabetic: Yes -: CHF -: CAD -: DM -: Stroke, no residual -: HTN -: ESRD on Peritoneal dialysis -: Cabg x4 04/06/21 -: pacemaker Psychosocial/ Personal History: Patient lives at home with her daughter - Family History Mother -: Cancer Father -: Heart disease Sister -: Cancer - Social History Smoking Status: Unknown if ever smoked Alcohol use: No CD- Drugs: No Caffeine use: Yes Place of Residence: Home <Batool Woodward - Last Filed: 02/16/22 01:03> Date of Service: 02/16/22 <Delmar Goode - Last Filed: 02/16/22 18:13> Allergies No Known Allergies Allergy (Verified 10/05/21 10:32) Home Medications: RX: Aspirin [Aspirin EC 81 MG] 81 mg PO DAILY 08/05/21 Metoclopramide [Reglan] 5 mg PO BID 10/02/21 Insulin Lispro [Insulin Lispro Kwikpen U-100] 4 unit SQ TIDWM 02/15/22 L.acidoph,Paracasei, B.lactis [Probiotic] 1 each PO DAILY 02/15/22 Magnesium Oxide [Mag 0X Tab] 400 mg PO DAILY 02/15/22 Megestrol [Megace] 20 mg PO BID 02/15/22 Ondansetron [Zofran] 4 mg PO Q6H PRN 02/15/22 Pantoprazole [Protonix Tab] 40 mg PO DAILY 02/15/22 Phoslyra 10 ml PO TIDWM 02/15/22 RX: Midodrine HCl 10 mg PO TID 02/15/22 Review of Systems General: Fever, Chills, Weakness, Other (fatigue) Eyes: Unremarkable ENT: Unremarkable Respiratory: Shortness of Breath Cardiovascular: Unremarkable Gastrointestinal: Nausea, Vomiting, Abdominal Pain, Diarrhea Genitourinary: Unremarkable Musculoskeletal: Unremarkable Integumentary: Unremarkable Neurological: Weakness Lymphatics: Unremarkable <Batool Woodward E - Last Filed: 02/16/22 01:03> Physical Examination - Physical Exam General: Alert, In no apparent distress, Oriented x3, Cooperative HEENT: Atraumatic, PERRLA, Mucous membr. moist/pink, EOMI, Sclerae nonicteric Neck: Supple, 2+ carotid pulse no bruit, No LAD, Without JVD or thyroid abnormality Respiratory: Clear to auscultation bilaterally, Diminished Cardiovascular: No edema, Normal pulses, Regular rate/rhythm, Normal S1 S2 Capillary refill: <2 Seconds Gastrointestinal: Normal bowel sounds, Soft and benign, No tenderness Musculoskeletal: No clubbing, No swelling, No contractures, No tenderness Integumentary: No rashes, No breakdown, No significant lesion, No erythema Neurological: Normal speech, Normal tone, Normal affect Lymphatics: No axilla or inguinal lymphadenopathy - Studies Laboratory Data (last 24 hrs) 02/15/22 13:12: Sodium 131 L, Potassium 2.4 L*, BUN 44 H, Creatinine 7.16 H*, Glucose 201 H, Total Bilirubin 0.3, AST 10 L, ALT < 10 L, Alkaline Phosphatase 77, Lipase 214 02/15/22 13:12: WBC 7.60, Hgb 9.1 L, Hct 25.7 L, Plt Count 195 <Batool Woodward E - Last Filed: 02/16/22 01:03> - Studies Laboratory Data (last 24 hrs) 02/16/22 12:00: Potassium Cancelled 02/16/22 04:13: Sodium 131 L, Potassium 2.5 L*, BUN 37 H, Creatinine 6.42 H*, Glucose 275 H 02/16/22 04:13: WBC 5.10, Hgb 7.6 L D, Hct 22.1 L, Plt Count 150 L 02/15/22 18:31: Sodium 131 L, Potassium 2.8 L* D, BUN 43 H, Creatinine 7.01 H*, Glucose 144 H Microbiology Data (last 24 hrs): 02/16/22 10:00 Body Fluid - Peritoneal Fluid Gram Stain - Final <Delmar Goode Last Filed: 02/16/22 18:13> Assessment and Plan - Plan -- Diarrhea. Stool studies pending to rule out any infectious process. Continue supportive care. --Nausea and vomiting. CT abdomen negative for any intra-abdominal abnormality. Continue supportive care. --ESRD. Patient on peritoneal dialysis. Nephrology consulted. Further management per senior animator. --Hypokalemia. Replete as needed. Further management per senior animator. --Anemia of chronic disease. H&H stable. We will continue to monitor hemoglobin and transfuse if less than 7.0. --Hypertension. Patient currently hypotensive. We will hold off on BP meds. Continue midodrine. --Hyperlipidemia. Continue statin. --DM 2. BS monitoring with sliding scale insulin and Lantus. --Chronic diastolic CHF. Daily weight and strict I/O. Continue supportive care. --History of CABG\CVA. Continue aspirin and statin. --Presence of cardiac pacemaker. Continue supportive care -- Class I obesity. Likely secondary to excess calories intake. Patient counseled on weight reduction, diet and exercise therapy. --DVT prophylaxis with heparin subQ. Discharge Plan: Home Plan to discharge in: 48 Hours - Advance Directives Does patient have a Living Will: No Does patient have a Durable POA for Healthcare: No - Code Status/Comfort Care Code Status Assessed: Yes Physician Review: Patient Assessed, Agree with Above Assessment and Plan Critical Care: No <Batool Woodward - Last Filed: 02/16/22 01:03> Physician Review: Patient Assessed, Agree with Above Assessment and Plan <Delmar Goode - Last Filed: 02/16/22 18:13>
[2022-02-15] MEDS ORDERED: D10W 250 ML BAG IV PRN (15:56)
[2022-02-15 16:26] LABS: Magnesium 1.6 mg/dL (1.6-2.4); Phosphorus 3.4 mg/dL (2.5-4.9)
[2022-02-15] MEDS: SUCRALFATE 1 GM TABLET PO SCH ×2 (16:30→20:48)
[2022-02-15] MEDS: INSULIN -REGULAR HUMAN 50 UNIT/0.5 ML ML SQ SCH ×2 (16:30→20:49)
[2022-02-15] MEDS: ASPIRIN 81 MG CHEWABLE TABLET PO SCH (17:00)
[2022-02-15] MEDS: SODIUM CHLORIDE 1 GM TAB PO SCH (17:00)
[2022-02-15] MEDS ORDERED: CALCIUM ACETATE 667 MG TAB PO SCH (17:00)
[2022-02-15 19:02] LABS: Potassium 2.8 mmol/L (3.5-5.1)
[2022-02-15 19:33] VITALS: BMI 29.9
--- NOTE | 2022-02-15 20:45 | P.CNS ---
Date of Consult: 02/16/22 Reason for Consult: ESRD Requesting Physician: Delmar Goode Chief Complaint: N/V/D History of Present Illness: [facility] 14:35 This 81 yrs old Female presents to ER via EMS with complaints of kb Nausea/Vomiting/Diarrhea. 14:35 The patient presents to the emergency department with nausea, vomiting, diarrhea, kb abdominal pain. Onset: The symptoms/episode began/occurred 7 day(s) ago. Possible causes: unknown. The symptoms are aggravated by nothing. The symptoms are alleviated by nothing. Associated signs and symptoms: Pertinent positives: abdominal pain, diarrhea, nausea, vomiting. Severity of symptoms: At their worst the symptoms were moderate in the emergency department the symptoms are unchanged. The patient has not experienced similar symptoms in the past. The patient has not recently seen a physician. Pt reports n/v/d for 5-7 days. States she called 911 today because she was too weak to get up. Allergies No Known Allergies Allergy (Verified 10/05/21 10:32) Home medications list reviewed: Yes Home Medications: Aspirin [Aspirin EC 81 MG] 81 mg PO DAILY 08/05/21 Metoclopramide [Reglan*] 5 mg PO BID 10/02/21 Insulin Lispro [Insulin Lispro Kwikpen U-100] 4 unit SQ TIDWM 02/15/22 L.acidoph,Paracasei, B.lactis [Probiotic] 1 each PO DAILY 02/15/22 Magnesium Oxide [Mag 0X*] 400 mg PO DAILY 02/15/22 Megestrol [Megace*] 20 mg PO BID 02/15/22 Midodrine HCl 10 mg PO TID 02/15/22 Ondansetron [Zofran (Odt)*] 4 mg PO Q6H PRN 02/15/22 Pantoprazole [Protonix Tab*] 40 mg PO DAILY 02/15/22 Phoslyra 10 ml PO TIDWM 02/15/22 - Past Medical/Surgical History Diabetic: Yes -: Diastolic CHF -: CAD -: DM II with Polyneuropathy -: Stroke, no residual -: HTN -: ESRD on Peritoneal dialysis (Dr. Sanches) -: Cabg x4 04/06/21 -: pacemaker Psychosocial/ Personal History: Patient lives at home with her daughter - Family History Mother Medical History: Cancer Father Medical History: Heart disease Sister Medical History: Cancer - Social History Smoking Status: Unknown if ever smoked Alcohol use: No CD- Drugs: No Caffeine use: Yes Review of Systems 10-point ROS is otherwise unremarkable General: Weakness, Malaise Gastrointestinal: Nausea, Vomiting, Diarrhea Physical Examination Temp Pulse Resp BP Pulse Ox 96.6 F L 87 20 99/50 L 02/15/22 18:24 02/15/22 18:24 02/15/22 18:24 02/15/22 18:24 General: In no apparent distress, Oriented x3, Cooperative HEENT: Atraumatic Neck: Supple Respiratory: Clear to auscultation bilaterally Cardiovascular: No edema, Regular rate/rhythm Gastrointestinal: Non-distended, No guarding, Tenderness Musculoskeletal: No clubbing, No contractures Integumentary: No rashes, No cyanosis Neurological: Normal speech Laboratory Data (last 24 hrs) 02/15/22 13:12: Phosphorus 3.4, Magnesium 1.6 02/15/22 13:12: Sodium 131 L, Potassium 2.4 L*, BUN 44 H, Creatinine 7.16 H*, Glucose 201 H, Total Bilirubin 0.3, AST 10 L, ALT < 10 L, Alkaline Phosphatase 77, Lipase 214 02/15/22 13:12: WBC 7.60, Hgb 9.1 L, Hct 25.7 L, Plt Count 195 Imagings Data: [facility] EXAM DESCRIPTION: CT - Abdomen Pelvis Wo Contrast - 02/15/2022 1:30 pm CLINICAL HISTORY: Abdominal pain COMPARISON: February 2021 TECHNIQUE: Computed axial tomography of the abdomen and pelvis was obtained. IV and oral contrast were not requested. All CT scans are performed using dose optimization technique as appropriate and may include automated exposure control or mA/KV adjustment according to patient size. FINDINGS: The evaluation of solid organs, vessels and bowel is limited secondary to the lack of contrast administration. The liver, spleen, pancreas, and adrenals appear grossly normal. Kidneys mildly diminished in size Diverticula stem from the colon without evidence of diverticulitis. Small amount of ascites. Peritoneal catheter in place. Laxity of right lateral abdominal wall. IMPRESSION: No acute abnormality is displayed. [facility] LEFT VENTRICULAR WALL MOTION: NORMAL LEFT VENTRICULAR EJECTION FRACTION. DECREASED LEFT VENTRICULAR COMPLIANCE. DOPPLER/COLOR FLOW: DECREASED LEFT VENTRICULAR COMPLIANCE. COMMENTS: PERMANENT PACEMAKER IN RIGHT VENTRICULAR APEX. AORTIC SCLEROSIS. MITRAL ANNULAR CALCFICATION. DECREASED LEFT VENTRICULAR COMPLIANCE. NORMAL LEFT VENTRICULAR EJECTION FRACTION. NO EFFUSION. Conclusions/Impression: ESRD on PD -Continue PD as ordered Peritonitis -Cell count reviewed -Culture pending -Continue Abx -Recommend a transfer to a facility that performs PD Hyponatremia -Caution with excess free water Hypokalemia -Replete as ordered Chronic Hypotension -Midodrine prn -Albumin 50g X1 Diastolic CHF, chronic -Daily weight DM II with CKD, Polyneuropathy -Continue Lantus -RISS Anemia in CKD -Retacrit TIW Severe malnutrition with anorexia Decreased functional ability -Continue Nepro TID -Continue Nepro CKD MBD -Continue Calcitriol and Cholecalciferol -Hold Phoslo at this time Case reviewed with Dr. Goode Thank you kindly for the consultation
[2022-02-15] MEDS: METOCLOPRAMIDE 5 MG TAB PO SCH (20:48)
[2022-02-15] MEDS: ATORVASTATIN 40 MG TAB PO SCH (20:48)
[2022-02-15] MEDS ORDERED: EPOETIN ALFA 10,000 UNIT/ML VIAL SQ ONE (20:48)
[2022-02-15] MEDS: HEPARIN 5000 UNIT/ML 1 ML VIAL SQ SCH (20:48)
[2022-02-15] MEDS: BUMETANIDE 1 MG TABLET PO SCH (20:49)
[2022-02-15] MEDS: NEPRO SHAKE 237 ML CAN PO SCH (20:49)
[2022-02-15] MEDS: INSULIN GLARGINE 100 UNIT/ML SQ SCH (20:50)
[2022-02-15] MEDS ORDERED: ALBUMIN HUMAN 25% 200 ML IV ONE (21:00)
[2022-02-15] MEDS ORDERED: EPOETIN ALFA-EPBX 10,000 UNIT/ML VIAL ONE (21:13)
[2022-02-15] MEDS ORDERED: ALBUMIN HUMAN 25% 100 ML IV ONE (21:27)
[2022-02-15] MEDS: LACTOBACILLUS/ACIDOPHILUS TAB PO SCH (22:25)
[2022-02-16 04:29] LABS: Absolute Lymphocytes (CBC) 0.6 K/uL (0.7-4.9); Hematocrit 22.1 % (36.0-45.0); Lymphocytes % 10.8 % (15.3-44.8); MCV 89.7 fL (80-100); MPV 6.9 fL (7.6-11.3); RBC Red Blood Cell Count 2.46 M/uL (3.86-4.86)
[2022-02-16 05:08] LABS: Potassium 2.5 mmol/L (3.5-5.1)
[2022-02-16] MEDS ORDERED: POTASSIUM 25 MEQ EFFERV TAB PO ONE (05:16)
[2022-02-16] MEDS ORDERED: KCL 20 MEQ/100 mL IVPB 100 ML IV ONE (06:07)
[2022-02-16] MEDS ORDERED: NA CHLORIDE 0.9% 250 ML ONE ×2 (06:07→22:42)
[2022-02-16] MEDS: KCL 20 MEQ/100 mL IVPB 20 MEQ/100 ML BAG IV SCH ×2 (06:15→08:00)
[2022-02-16] MEDS ORDERED: PANTOPRAZOLE 40MG TABLET PO SCH (06:30)
[2022-02-16] MEDS: BUMETANIDE 1 MG TABLET PO SCH (09:00)
[2022-02-16] MEDS ORDERED: ZINC SULFATE 220 MG CAP PO SCH (09:00)
[2022-02-16] MEDS ORDERED: VITAMIN D 1000 UNIT TAB PO SCH (09:00)
[2022-02-16] MEDS ORDERED: ASCORBIC ACID 500 MG TABLET PO SCH (09:00)
[2022-02-16] MEDS ORDERED: VITAMIN B COMPLEX 1 CAP PO SCH (09:00)
[2022-02-16] MEDS ORDERED: HOME MED 1 EA UNK (Ascorbic Acid [Vitamin C] 1,000 MG Tablet) PO SCH (09:00)
[2022-02-16] MEDS ORDERED: MULTIVITAMINS,THERAPEUT 1 TAB PO SCH (09:00)
[2022-02-16] MEDS ORDERED: CALCITROL 0.25 MCG CAP PO SCH (09:00)
[2022-02-16] MEDS: INSULIN -REGULAR HUMAN 50 UNIT/0.5 ML ML SQ SCH ×4 (09:56→21:00)
[2022-02-16] MEDS: LACTOBACILLUS/ACIDOPHILUS TAB PO SCH ×3 (09:58→21:00)
[2022-02-16] MEDS: METOCLOPRAMIDE 5 MG TAB PO SCH (09:59)
[2022-02-16] MEDS: ASPIRIN 81 MG CHEWABLE TABLET PO SCH (09:59)
[2022-02-16] MEDS: SUCRALFATE 1 GM TABLET PO SCH ×3 (09:59→16:30)
[2022-02-16] MEDS: SODIUM CHLORIDE 1 GM TAB PO SCH ×2 (09:59→17:00)
[2022-02-16] MEDS: HEPARIN 5000 UNIT/ML 1 ML VIAL SQ SCH ×2 (09:59→21:00)
[2022-02-16] MEDS: NEPRO SHAKE 237 ML CAN PO SCH ×2 (10:00→14:00)
[2022-02-16] MEDS ORDERED: CEFTRIAXONE 1,000 MG in NA CHLORIDE 0.9% 50 ML IVPB NR (11:00)
[2022-02-16 13:22] LABS: Body Fluid WBC 3063 /mm^3
[2022-02-16 15:03] LABS: Appearance SLT. TURBID (CLEAR); Body Fluid Source PERITONEAL; Color of fluid Colorless (COLORLESS)
[2022-02-16] MEDS ORDERED: CEFTRIAXONE 1,000 MG in NA CHLORIDE 0.9% 50 ML IVPB SCH (16:30)
[2022-02-16] MEDS ORDERED: CEFTRIAXONE 1000 MG/VIAL ONE (16:31)
[2022-02-16] MEDS ORDERED: NA CHLORIDE 0.9% 50 ML ONE ×2 (16:32→16:33)
--- NOTE | 2022-02-16 18:24 | P.DS ---
Admission Date: 02/15/22 Discharge Date: 02/16/22 Disposition: TRANSFER TO [facility] Comment: [facility] Discharge Condition: FAIR Reason for Admission: N\V\D Consultations: 1. Nephrology Hospital Course: DIAGNOSES: # Secondary Bacterial Peritonitis # End-Stage Renal Disease on Peritoneal Dialysis # Hyperglycemia in Type II Diabetes Mellitus # Coronary Artery Disease s/p CABG # History of Cerebrovascular Accident # Chronic Diastolic Congestive Heart Failure # Hypertension # Hyperlipidemia # S/P Cardiac Pacemaker HOSPITAL COURSE: Ms. Sierra Iqbal is a pleasant 81 year old female with a past medical history significant for end-stage renal disease on peritoneal dialysis, coronary artery disease s/p CABG, history of cerebrovascular accident, chronic diastolic congestive heart failure, hypertension, hyperlipidemia, and type II diabetes mellitus who was admitted to the [facility] on 02/15/2022 for generalized weakness, abdominal pain, nausea, and vomiting. She was admitted to the Medicine service. Her peritoneal fluid was sent for studies and returned with a WBC count of 3,063. This was suggestive of secondary bacterial peritonitis, and she was started on ceftriaxone. Nephrology was consulted for assistance with her electrolyte derangements and peritoneal dialysis. She was evaluated by Dr. Sanches. He stated that we do not have the staff here to perform peritoneal dialysis, so he recommended that she be transferred to [facility] for dialysis. I completed doc-to-doc with Dr. Kuldeep Jaramillo ([facility] Hospitalist), who has generously accepted her for transfer. Dr. Sanches stated that he will contact Dr. Ellis (Nephrology) at [facility]. On 02/16/2022, she was seen on rounds and deemed medically stable for transfer. She was given the opportunity to ask questions and reported no further questions. Furthermore, all questions were answered to the best of my ability. A copy of this discharge summary will be sent to the above providers to facilitate continuity of care. Today, I personally spent 25 minutes on her case, of which greater than 50% of the time was spent in patient education, counseling, and coordination of care as described above. Vital Signs/Physical Exam: Temp Pulse Resp BP Pulse Ox 98.1 F 97 H 16 103/51 L 96 02/16/22 16:00 02/16/22 16:00 02/16/22 16:00 02/16/22 16:00 02/16/22 16:00 General: Alert, In no apparent distress, Oriented x3 HEENT: Atraumatic, Mucous membr. moist/pink, EOMI, Sclerae nonicteric Neck: JVD not distended Respiratory: Clear to auscultation bilaterally, Normal air movement Cardiovascular: Regular rate/rhythm, Normal S1 S2, No gallops, No rubs, No murmurs, Edema (1+ BLE) Gastrointestinal: Normal bowel sounds, Soft and benign, Non-distended, No rebound, No guarding, Tenderness (generalized) Musculoskeletal: No clubbing Integumentary: No rashes Neurological: Normal speech, Cranial nerves 3-12 intact, Normal affect Laboratory Data at Discharge: WBC 5.10 K/uL (4.3-10.9) 02/16/22 04:13 Hgb 7.6 g/dL (12.0-15.0) L D 02/16/22 04:13 Hct 22.1 % (36.0-45.0) L 02/16/22 04:13 Plt Count 150 K/uL (152-406) L 02/16/22 04:13 Sodium 131 mmol/L (136-145) L 02/16/22 04:13 Potassium Cancelled 02/16/22 17:00 BUN 37 mg/dL (7-18) H 02/16/22 04:13 Creatinine 6.42 mg/dL (0.55-1.02) H* 02/16/22 04:13 Glucose 275 mg/dL (74-106) H 02/16/22 04:13 Phosphorus Cancelled 02/15/22 16:06 Magnesium Cancelled 02/15/22 16:05 Total Bilirubin 0.3 mg/dL (0.2-1.0) 02/15/22 13:12 AST 10 U/L (15-37) L 02/15/22 13:12 ALT < 10 U/L (13-56) L 02/15/22 13:12 Alkaline Phosphatase 77 U/L (45-117) 02/15/22 13:12 Lipase 214 U/L (73-393) 02/15/22 13:12 Home Medications: RX: Aspirin [Aspirin EC 81 MG] 81 mg PO DAILY 08/05/21 RX: Metoclopramide [Reglan*] 5 mg PO BID 10/02/21 Phoslyra 10 ml PO TIDWM 02/15/22 RX: Insulin Lispro [Insulin Lispro Kwikpen U-100] 4 unit SQ TIDWM 02/15/22 RX: L.acidoph,Paracasei, B.lactis [Probiotic] 1 each PO DAILY 02/15/22 RX: Magnesium Oxide [Mag 0X*] 400 mg PO DAILY 02/15/22 RX: Megestrol [Megace*] 20 mg PO BID 02/15/22 RX: Midodrine HCl 10 mg PO TID 02/15/22 RX: Ondansetron [Zofran (Odt)*] 4 mg PO Q6H PRN 02/15/22 RX: Pantoprazole [Protonix Tab*] 40 mg PO DAILY 02/15/22 Diet: AHA Activity: Fall precautions Followup: Geneva Medina MD [Primary Care Provider] - Daray Ellis MD [ACTIVE - CAN ADMIT] - Dionisio Sanches DO [ACTIVE - CAN ADMIT] - Time spent managing pt's care (in minutes): 25
[2022-02-16] MEDS ORDERED: EPOETIN ALFA 10,000 UNIT/ML VIAL SQ SCH (20:00)
[2022-02-16] MEDS ORDERED: VANCOMYCIN 1.5 GM in NA CHLORIDE 0.9% 500 ML IVPB ONE (21:00)
[2022-02-16] MEDS: INSULIN GLARGINE 100 UNIT/ML SQ SCH (21:00)
[2022-02-16] MEDS: ATORVASTATIN 40 MG TAB PO SCH (21:00)
[2022-02-16] MEDS ORDERED: ENSURE HIGH PROTEIN 237 ML CAN PO SCH (21:00)
[2022-02-16 21:12] VITALS: BP 99/57; TEMP 100.5
[2022-02-16] MEDS ORDERED: KCL 20 MEQ/100 mL IVPB 20 MEQ/100 ML BAG IV SCH (22:00)
[2022-02-16] MEDS ORDERED: VANCOMYCIN 500 MG/VIAL ONE (22:50)
[2022-02-16] MEDS ORDERED: NA CHLORIDE 0.9% 500 ML ONE (22:50)
[2022-02-16] MEDS ORDERED: VANCOMYCIN 1 GM/VIAL ONE (22:50)
[2022-02-16] MEDS ORDERED: WATER FOR INJ,STERILE 30 ML ONE (22:51)
[2022-02-16] MEDS ORDERED: EPOETIN ALFA-EPBX 10,000 UNIT/ML VIAL ONE (23:29)
[2022-02-16 23:59] VITALS: O2SAT 96
[2022-02-17] MEDS ORDERED: FAMOTIDINE 20 MG/2 ML VIAL IV SCH (09:00)
[2022-02-17] MEDS ORDERED: CEFEPIME 1 GM in NA CHLORIDE 0.9% 100 ML IV SCH (09:00)
== END 2022-02-17 00:15 | disposition short-term general hospital (02) | DRG 371 ==
LOC: ER 12:28 → ERHOLD 15:34 → 2ND 17:26 → OBSVTOIN 02-16 14:55
PROVIDERS: ADMIT Internal Medicine; ATTEND Internal Medicine
DX: K65.2 Spontaneous bacterial peritonitis (principal); E43 Unspecified severe protein-calorie malnutrition; N18.6 End stage renal disease; I13.2 Hypertensive heart and chronic kidney disease with heart failure and with stage 5 chronic kidney disease, or end stage renal disease; Z16.30 Resistance to unspecified antimicrobial drugs; E87.1 Hypo-osmolality and hyponatremia; I50.32 Chronic diastolic (congestive) heart failure; E11.22 Type 2 diabetes mellitus with diabetic chronic kidney disease; E11.65 Type 2 diabetes mellitus with hyperglycemia; E11.42 Type 2 diabetes mellitus with diabetic polyneuropathy; D63.1 Anemia in chronic kidney disease; E87.6 Hypokalemia; K21.9 Gastro-esophageal reflux disease without esophagitis; I95.89 Other hypotension; E78.5 Hyperlipidemia, unspecified; D63.8 Anemia in other chronic diseases classified elsewhere; I25.10 Atherosclerotic heart disease of native coronary artery without angina pectoris; B95.2 Enterococcus as the cause of diseases classified elsewhere; R63.0 Anorexia; Z79.4 Long term (current) use of insulin; Z99.2 Dependence on renal dialysis; Z95.0 Presence of cardiac pacemaker; Z68.29 Body mass index [BMI] 29.0-29.9, adult; Z79.82 Long term (current) use of aspirin; Z86.73 Personal history of transient ischemic attack (TIA), and cerebral infarction without residual deficits; Z79.899 Other long term (current) drug therapy; Z90.710 Acquired absence of both cervix and uterus; Z20.822 Contact with and (suspected) exposure to COVID-19
CPT/HCPCS: 36415; 74176; 80048; 80053; 82947; 83690; 83735; 84100; 84132; 85025; 87070; 87077; 87186; 87811; 89050; 89055; 96361; 96374; 99284; G0378; J1644; J1815; J2250; J2405; J3370; J3480; J7040; J7050; P9047; Q5106

== ENCOUNTER 2022-03-18 09:26 | Emergency (ER) | payer OTHER ==
--- OUTSIDE RECORDS SUMMARY | 2022-03-18 09:42 | XMS REPORT | Continuity of Care Document ---
:1940 Author Organization [facility] t Address [address] [place] [address] Care Team Providers Name Role Phone RUTH UP Primary Care Physician UnavailGeneva Mahajan Attending Clinician Unavailable ИРИНА JARAMILLO Attending Clinician Unavailable Ирина Jaramillo MD Attending Clinician Ronak Shaw MD Attending Clinician Brody Shipley MD Attending Clinician Ruth Up Attending Clinician [phone] WILL CORONA Attending Clinician Unavailable Will Corona MD Attending Clinician Dwain Morejon MD Attending Clinician Jaqui JAIMES, Radha Attending Clinician Unavailable Jackie INMAN, Sumit Curiel Attending Clinician Michelle INMAN, Forest Calderón Attending Clinician Rosario Nolan MD Attending Clinician [phone] Pedrito Espinoza CRNA Attending Clinician MD FOREST MCMAHON Attending Clinician Unavailable Dung MCCULLOUGH, Neelima Roman Attending Clinician Aston Coats MD Attending Clinician Abdiaziz JAIMES, Norma Attending Clinician Unavailable Jl JAIMES, Carmelina Finnegan Attending Clinician Unavailable MD DWAIN MOREJON Attending Clinician Unavailable Shelia Mccarthy MA Attending Clinician Unavailable Xavier JAIMES, Ana Maria Jacobs Attending Clinician Unavailable LIZZY CASTANEDA Attending Clinician Unavailable An INMAN, Norman Coughlin Attending Clinician Ritu INMAN, Janak Mcclellan Attending Clinician MD JANAK SKINNER Attending Clinician Unavailable Chantal INMAN, Demarcus Alcazar Attending Clinician Maria Luz INMAN, Manuela Finnegan Attending Clinician [phone] Tyesha INMAN, Jayant Dominguez Attending Clinician Papi INMAN, Irma Hester Attending Clinician MARTITA BETTS Attending Clinician Unavailable BRODY SHIPLEY Admitting Clinician Unavailable WILL CORONA Admitting Clinician Unavailable SUMIT MEJIA Admitting Clinician Unavailable MD SUMIT MEJIA Admitting Clinician Unavailable MD DWAIN MOREJON Admitting Clinician Unavailable JANAK SKINNER Admitting Clinician Unavailable MD JANAK SKINNER Admitting Clinician Unavailable MARTITA BETTS Admitting Clinician Unavailable Payers Payer Name Policy Type Policy Number Effective Date Expiration Date Jayla FRANKLIN [id number] 2021 MEDICARE 00:00:00 [facility] 53 [id number] 2021 [facility] ADVANTAGE 00:00:[address] [facility] Problems Condition Condition Condition Status Onset Resolution Last Treating Co mments Source Name Details Category Date Date Treatment Clinician Date Peritoniti Peritoniti Disease Active 2021-[address] [facility] s 2-21 [facility] ESRD on ESRD on Disease Active 2021-[address] [facility] peritoneal peritoneal 0-02 Sanam kes dialysis dialysis 00:00: Medica l 00 Center Hypotensio Hypotensio Disease Active 2021-[address] n n 0-02 [facility] COVID-19 COVID-19 Disease Active Metho di virus virus 03-27 st detected detected 00:00: Hospit a 00 l 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 Added automatic ally from request for surgery [id number] Unstable Unstable Disease Active 2020-02 Overview: Me thodi angina angina 2-[address] pectoris pectoris 00:00: g of this Hos jimena 00 note l might be different from the original. Added automatic ally from request for surgery [id number] Ischemic Ischemic Disease Active 2020-02 Overview: Me thodi cardiomyop cardiomyop 2-[address] athy athy 00:00: g of this Hospita 00 note l might be different from the original. Added automatic ally from request for surgery [id number] Syncope Syncope Disease Active Methodi 08-06 st [...] uncontroll uncontroll ed ed Active Problem 01/30/2015 [facility] Diabetes Diabetes Problem Active 2015-01-30 Memoria mellitus mellitus 03:02:19 l without without Preet mention of mention of complicati complicati on, type on, type II or II or unspecifie unspecifie d type, d type, not stated not stated as as uncontroll uncontroll ed ed Active Problem 01/30/2015 [facility] DM II [facility] DM II [facility] Problem Active 2015-01-30 Memoria Active 03:02:19 l Problem Peck 01/30/2015 [facility] TRANSIENT Problem Active 2015-01-30 Me moria ISCHEMIC TRANSIENT 03:02:19 l ATTACK(TIA ISCHEMIC Herm johanna ) ATTACK(TIA ) Active Problem 01/30/2015 [facility] HYPERTENSI HYPERTENS Problem Active 2015-01-30 Memoria ON ION Active 03:02:19 l Problem Peck 01/30/2015 [facility] HYPERLIPID HYPERLIPI Problem Active 2015-01-30 Memoria EMIA DEMIA 03:02:19 l Active Peck Problem 01/30/2015 [facility] 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 Alireza narciso hyperlipid hyperlipid 03:02:19 l emia emia Preet Active Problem 01/30/2015 [facility] Diabetes Diabetes Problem Active 2015-01-30 Memoria mellitus mellitus 03:02:19 l without without Preet mention of mention of complicati complicati on, type I on, type I [juvenile [juvenile type], not type], not stated as stated as uncontroll uncontroll ed ed Active Problem 01/30/2015 [facility] Body Mass Body Mass Diagnosis Active 2014-06-12 Memoria Index Index 02:03:24 l 34.0-34.9, 34.0-34.9, He johanna adult adult Active Diagnosis 06/12/2014 [facility] Dysuria Dysuria Diagnosis Active 2014-06-12 Memoria Active 02:02:48 l Diagnosis Peck 06/12/2014 [facility] pre-operat pre-opera Diagnosis Active 2014-06-12 Memoria david tive 02:00:19 l examinatio examinatio He [facility] n n Active Diagnosis 06/12/2014 [facility] Unspecifie Unspecifi Diagnosis Active 2014-06-12 Memoria d cataract ed 02:00:19 l cataract Preet Active Diagnosis 06/12/2014 [facility] DM renal DM renal Problem Active 2015-01-30 Memoria manif type manif type 03:02:19 l II II Active Preet Problem 01/30/2015 [facility] CVA CVA Problem Active 2015-01-30 Memor ia (cerebral (cerebral 03:02:19 l vascular vascular Torin n accident) accident) Active Problem 01/30/2015 [facility] Dizziness Dizziness Diagnosis Active 2014-06-12 Memoria and and 02:03:24 l giddiness giddiness Herm johanna Active Diagnosis 06/12/2014 [facility] [id number] Functional Problem Com mon incontinen Spirit ce - [facility] [id number] 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 - [facility] involving [facility] coronary [facility] artery of Center ione heart without angina pectoris [id number] 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 - [facility] [id number] 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 - [facility] insulin [facility] [id number] Peritoneal Problem Co mmon dialysis Spirit catheter - [facility] in place [facility] [id number] Mixed Problem Common hyperlipid Spirit emia [facility] [id number] Wheelchair Problem Co mmon bound Spirit - [facility] [id number] 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 - [facility] [id number] [place] [id number] 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 [facility] heart Medical failure Center [id number] Hypertensi Problem C ommon 9107 ve heart Spirit and - [facility] chronic kidney [facility] disease Medical with heart Center failure and with stage 5 chronic kidney disease, or end stage renal disease [id number] 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 [id number] End stage Problem Com mon renal Spirit disease - [facility] Allergies, Adverse Reactions, Alerts Allergy Allergy Status Severity Reaction(s) Onset Inactive Treating Comm ents Source Name Type Date Date Clinician NO KNOWN Allergy Active [facility] ALLERGIE S Family History Family Member Diagnosis Comments Start Date Stop Date Source Natural father [facility] mother [facility] Social History Social Habit Start Date Stop Date Quantity Comments Source History [facility] Medical nter Lived History [facility] Last Year [facility] of [facility] - Tobacco Use [facility] Exposure to 2022-02-07 2022-02-17 Not sure [facility] SARS-CoV-2 00:00:00 05:45:00 Medical Center (event) History SDOH 2022-02-17 2022-02-17 2 [facility] Housing Unable to 00:00:00 00:00:00 Medical Center Pay Alcohol intake 2021-06-02 2021-06-02 Current [employer] 00:00:00 00:00:00 non-drinker of Hospital alcohol (finding) Tobacco use and 2021-02-19 2021-02-19 Smokeless tobacco Me [facility] exposure 00:00:00 00:00:00 non-user [facility] 2015-01-20 2015-01-20 [facility] 00:00:00 00:00:00 Sex [birth year] [facility] 00:00:00 00:00:00 Medical Center Smoking Status Start Date Stop Date Source Never Smoker [facility] Ex-smoker 2021-02-19 00:00:00 2021-02-19 [facility]00[facility] Medications Ordered Filled Start Stop Current Ordering Indication Dosage Frequency Signature Comments Components Source Medication Medication Date Date Medication? Clinician (SIG) Name Name pantoprazol Yes 40mg QD Take [address] e -07 tablet (40 [facility] (PROTONIX) 00:00: mg total) Ia dical 40 MG 00 by mouth Center tablet daily. sodium 2022- 1g QD Take [address] chloride 1 -07 01-11 tablet (1 Souleymane es gram tablet 00:00: 23:59 g total) M edical 00 :00 by mouth Center daily for 4 days. clopidogrel Yes 75mg QD Take [address] (PLAVIX) 75 1-06 by mouth Luke s mg tablet 18:41: daily. Medica l 24 Center insulin Yes 10U QD Inject 10 [facility] glargine 1-06 Units [facility] (LANTUS) 18:41: subcutaneo Med ical 100 unit/mL 24 usly Center injection nightly Use as directed . aspirin 81 Yes 81mg QD Take [address] MG EC -06 by mouth [facility] tablet 18:41: daily. Medical 24 Center atorvastati Yes 40mg QD Take [address] n (LIPITOR) 03-05 by mouth Luke s 20 MG 18:41: daily . Medical tablet 24 Center metoclopram Yes 5mg Q.5D Take [address] lauren 06 by mouth 2 [facility] (REGLAN) 5 18:41: (two) Medica l MG tablet 24 times Center daily. midodrine Yes 10mg Q.[id number] Take [address] (PROAMATINE 03-05 [id number] by mouth 3 [facility] ) 10 MG 18:41: 3D (three) Medical tablet 24 times Center daily. lisinopril 2022- No 20mg QD Take [address] (PRINIVIL,Z 03-05- by mouth Souleymane es ESTRIL) 20 13:51: 00:00 daily. Medi gabbi MG tablet 33 :00 [place] fenofibrate 2022- No 160mg QD Take [address] (TRIGLIDE,L 03-05- mg by [facility] OFIBRA) 160 13:51: 00:00 mouth Medi gabbi MG tablet 30 :00 daily. Center cloNIDine 2022- No .1mg Q.5D Take 0.[address] HCl 03-05- mg by [facility] (CATAPRES) 13:51: 00:00 mouth 2 Med ical 0.1 MG 24 :00 (two) Center tablet times daily. dronabinoL Yes 2.5mg Q.5D Take [address] (MARINOL) 03-05 capsule [facility] 2.5 MG 00:00: (2.5 mg Medical capsule 00 total) by Center mouth 2 (two) times daily. Max Daily Amount: 5 mg vancomycin 2022- No 125mg Q.25D Take [address] (VANCOCIN) 03-05 capsule [facility] 125 MG 00:00: 23:59 (125 mg Medical capsule 00 :00 total) by Center mouth 4 (four) times daily for 5 days. clopidogrel 2021-02 Yes 75mg QD Take [address] (PLAVIX) 75 07 by mouth Luke s mg tablet 11:50: daily. Medica l 11 [place] insulin 2022-1 Yes QD Inject [facility] glargine 1-07 subcutaneo [facility] (LANTUS) 11:50: usly Medical 100 unit/mL 11 nightly Cente r injection Use as directed . aspirin 81 2021-02 Yes 81mg QD Take [address] MG EC 1-07 by mouth [facility] tablet 11:50: daily. Medical 11 [place] lisinopril 2021-02 Yes 20mg QD Take [address] (PRINIVIL,Z 1-07 by mouth Luke s ESTRIL) 20 11:50: daily. Medic al MG tablet 11 [place] cloNIDine 2021-02 Yes .1mg Q.5D Take 0.[address] HCl 1-07 mg by [facility] (CATAPRES) 11:50: mouth 2 Medi gabbi 0.1 MG 11 (two) Center tablet times daily. atorvastati 2021-02 Yes 20mg QD Take [address] n (LIPITOR) 1-07 by mouth Luke s 20 MG 11:50: daily. Medical tablet 11 [place] fenofibrate 2021-02 Yes 160mg QD Take [address] (TRIGLIDE,L 1-07 mg by [facility] OFIBRA) 160 11:50: mouth Medic al MG tablet 11 daily. [place] lisinopril 2021-02 Yes 20mg QD Take [address] (PRINIVIL,Z 0-02 by mouth Luke s ESTRIL) 20 02:33: daily. Medic al MG tablet 50 [place] cloNIDine 2021-02 Yes .1mg Q.5D Take 0.[address] HCl 0-02 mg by [facility] (CATAPRES) 02:33: mouth 2 Medi gabbi 0.1 MG 50 (two) Center tablet times daily. atorvastati 2021-02 Yes 20mg QD Take [address] n (LIPITOR) 0-02 by mouth Luke s 20 MG 02:33: daily. Medical tablet 50 [place] fenofibrate 2021-02 Yes 160mg QD Take [address] (TRIGLIDE,L 0-02 mg by [facility] OFIBRA) 160 02:33: mouth Medic al MG tablet 50 daily. [place] clopidogrel 2021-02 Yes 75mg QD Take [address] (PLAVIX) 75 0-02 by mouth Luke s mg tablet 02:33: daily. Medica l 50 [place] insulin 2021-02 Yes QD Inject [facility] glargine 0-02 subcutaneo [facility] (LANTUS) 02:33: usly Medical 100 unit/mL 50 nightly Cente r injection Use as directed . aspirin 81 2021-02 Yes 81mg QD Take [address] MG EC 0-02 by mouth [facility] tablet 02:33: daily. [address] lisinopril 2021-02 Yes 20mg QD Take [address] (PRINIVIL,Z 0-02 by mouth Luke s ESTRIL) 20 02:33: daily. Medic al MG tablet 50 [place] cloNIDine 2021-02 Yes .1mg Q.5D Take 0.[address] HCl 0-02 mg by [facility] (CATAPRES) 02:33: mouth 2 Medi gabbi 0.1 MG 50 (two) Center tablet times daily. atorvastati 2021-02 Yes 20mg QD Take [address] n (LIPITOR) 0-02 by mouth Luke s 20 MG 02:33: daily. Medical tablet 50 [place] fenofibrate 2021-02 Yes 160mg QD Take [address] (TRIGLIDE,L 0-02 mg by [facility] OFIBRA) 160 02:33: mouth Medic al MG tablet 50 daily. [place] clopidogrel 2021-02 Yes 75mg QD Take [address] (PLAVIX) 75 0-02 by mouth Luke s mg tablet 02:33: daily. Medica l 50 [place] insulin 2021-02 Yes QD Inject [facility] glargine 0-02 subcutaneo [facility]ukes (LANTUS) 02:33: usly Medical 100 unit/mL 50 nightly Cente r injection Use as directed . aspirin 81 2021-02 Yes 81mg QD Take [address] MG EC 0-02 by mouth [facility] tablet 02:33: daily. [address] lisinopril 2021-02 Yes 20mg QD Take [address] (PRINIVIL,Z 0-02 by mouth Luke s ESTRIL) 20 02:33: daily. Medic al MG tablet 50 [place] cloNIDine 2021-02 Yes .1mg Q.5D Take 0.[address] HCl 0-02 mg by [facility] (CATAPRES) 02:33: mouth 2 Medi gabbi 0.1 MG 50 (two) Center tablet times daily. atorvastati 2021-02 Yes 20mg QD Take [address] n (LIPITOR) 0-02 by mouth Luke s 20 MG 02:33: daily. Medical tablet 50 [place] fenofibrate 2021-02 Yes 160mg QD Take [address] (TRIGLIDE,L 0-02 mg by [facility] OFIBRA) 160 02:33: mouth Medic al MG tablet 50 daily. [place] clopidogrel 2021-02 Yes 75mg QD Take [address] (PLAVIX) 75 0-02 by mouth Luke s mg tablet 02:33: daily. Medica l 50 [place] insulin 2021-02 Yes QD Inject [facility] glargine 0-02 subcutaneo [facility] (LANTUS) 02:33: usly Medical 100 unit/mL 50 nightly Cente r injection Use as directed . aspirin 81 2021-02 Yes 81mg QD Take [address] MG EC 0-02 by mouth [facility] tablet 02:33: daily. [address] lisinopril 2021-02 Yes 20mg QD Take [address] (PRINIVIL,Z 0-02 by mouth Luke s ESTRIL) 20 02:33: daily. Medic al MG tablet 50 [place] cloNIDine 2021-02 Yes .1mg Q.5D Take 0.[address] HCl 0-02 mg by [facility] (CATAPRES) 02:33: mouth 2 Medi gabbi 0.1 MG 50 (two) Center tablet times daily. atorvastati 2021-02 Yes 20mg QD Take [address] n (LIPITOR) 0-02 by mouth Luke s 20 MG 02:33: daily. Medical tablet 50 [place] fenofibrate 2021-02 Yes 160mg QD Take [address] (TRIGLIDE,L 0-02 mg by [facility] OFIBRA) 160 02:33: mouth Medic al MG tablet 50 daily. [place] clopidogrel 2021-02 Yes 75mg QD Take [address] (PLAVIX) 75 0-02 by mouth Luke s mg tablet 02:33: daily. Medica l 50 [place] insulin 2021-02 Yes QD Inject [facility] glargine 0-02 subcutaneo [facility] (LANTUS) 02:33: usly Medical 100 unit/mL 50 nightly Cente r injection Use as directed . aspirin 81 2021-02 Yes 81mg QD Take [address] MG EC 0-02 by mouth [facility] tablet 02:33: daily. [address] lisinopril 2021-02 Yes 20mg QD Take [address] (PRINIVIL,Z 0-02 by mouth Luke s ESTRIL) 20 02:33: daily. Medic al MG tablet 50 [place] cloNIDine 2021-02 Yes .1mg Q.5D Take 0.[address] HCl 0-02 mg by [facility] (CATAPRES) 02:33: mouth 2 Medi gabbi 0.1 MG 50 (two) Center tablet times daily. atorvastati 2021-02 Yes 20mg QD Take [address] n (LIPITOR) 0-02 by mouth Luke s 20 MG 02:33: daily. Medical tablet 50 [place] fenofibrate 2021-02 Yes 160mg QD Take [address] (TRIGLIDE,L 0-02 mg by [facility] OFIBRA) 160 02:33: mouth Medic al MG tablet 50 daily. [place] clopidogrel 2021-02 Yes 75mg QD Take [address] (PLAVIX) 75 0-02 by mouth Luke s mg tablet 02:33: daily. Medica l 50 [place] insulin 2021-02 Yes QD Inject [facility] glargine 0-02 subcutaneo [facility] (LANTUS) 02:33: usly Medical 100 unit/mL 50 nightly Cente r injection Use as directed . aspirin 81 2021-02 Yes 81mg QD Take [address] MG EC 0-02 by mouth [facility] tablet 02:33: daily. [address] lisinopril 2021-02 Yes 20mg QD Take [address] (PRINIVIL,Z 0-02 by mouth Luke s ESTRIL) 20 02:33: daily. Medic al MG tablet 50 [place] cloNIDine 2021-02 Yes .1mg Q.5D Take 0.[address] HCl 0-02 mg by [facility] (CATAPRES) 02:33: mouth 2 Medi gabbi 0.1 MG 50 (two) Center tablet times daily. atorvastati 2021-02 Yes 20mg QD Take [address] n (LIPITOR) 0-02 by mouth Luke s 20 MG 02:33: daily. Medical tablet 50 [place] fenofibrate 2022-1 Yes 160mg QD Take [address] (TRIGLIDE,L 0-02 mg by [facility] OFIBRA) 160 02:33: mouth Medic al MG tablet 50 daily. Center clopidogrel 2021-02 Yes 75mg QD Take [address] (PLAVIX) 75 0-02 by mouth Luke s mg tablet 02:33: daily. Medica l 50 Center insulin 2021-02 Yes QD Inject [facility] glargine 0-02 subcutaneo [facility] (LANTUS) 02:33: usly Medical 100 unit/mL 50 nightly Cente r injection Use as directed . aspirin 81 2021-02 Yes 81mg QD Take [address] MG EC 0-02 by mouth [facility] tablet 02:33: daily. [address] nitroglycer Yes .4mg Place 0.4 M ethodi in 2-[address] (NITROSTAT) 15:55: the tongue Hospita 0.4 MG SL 04 every 5 l tablet (five) minutes as needed for chest pain. zinc Yes Take by Methodi sulfate 2-[address] (ZINC-220 15:55: Hospita ORAL) 04 l vitamin B 0 Yes Take by Metho di complex/fol 2-[address] ic acid (B 15:55: Hospita COMPLEX 100 04 l ORAL) calcitrioL 0 Yes .25ug QD Take 0.25 M ethodi (ROCALTROL) 2-[address] 0.25 MCG 15:55: mouth [facility]ospita capsule 04 daily. l nitroglycer Yes .4mg Place 0.4 M ethodi in 2-[address] (NITROSTAT) 15:55: the tongue Hospita 0.4 MG SL 04 every 5 l tablet (five) minutes as needed for chest pain. zinc 2021-0 Yes Take by Methodi sulfate 2-[address] (ZINC-220 15:55: Hospita ORAL) 04 l vitamin B 2021-0 Yes Take by Metho di complex/fol 2-[address] ic acid (B 15:55: Hospita COMPLEX 100 04 l ORAL) calcitrioL 2021-0 Yes .25ug QD Take 0.25 M ethodi [...] mouth Hospita capsule 04 daily. l clopidogreL 2021- No 75mg QD Take 1 Met hodi (PLAVIX) 75 2-21 tablet (75 s t mg tablet 00:00: [...] QD Take 1 Met hodi (PLAVIX) 75 04-17- tablet (75 s t mg tablet 00:00: [...] QD Take 1 Met hodi (PLAVIX) 75 2- tablet (75 s t mg tablet 00:00: [...] QD Take 1 Met hodi (PLAVIX) 75 04-17- tablet (75 s t mg tablet 00:00: [...] QD Take 40 mg [facility]i (LASIX) 40 2-16 04-[address] mg tablet 15:55: 00:00 daily. Ran H ospita 26 :00 out of l medication cholecalcif 2021- No 1000U QD Take 1,000 [facility]i arvin, 2-17 02-[address] vitamin D3, 15:55: 00:00 mouth [facility] 25 mcg 26 :00 daily. l (1,000 unit) capsule isosorbide 0 2021- No 20mg Q.[id number] Take 20 mg [facility]i dinitrate 2-17 -17 [id number] mouth [address] (ISORDIL) 15:55: 00:00 3D (three) [facility] 20 MG 26 :00 times a l tablet day. hydrALAZINE 2021-0 2021- No 25mg Q.[id number] Take 25 mg [facility] (APRESOLINE 2-17 -17 [id number] by mouth 3 st ) 25 MG [...] 1000U QD Take 1,000 [facility]i arvin, 2-17 -[address] vitamin D3, 15:55: 00:00 mouth [facility] 25 mcg 26 :00 daily. l (1,000 unit) capsule isosorbide 2021- No 20mg Q.[id number] Take 20 mg [facility] dinitrate 2-17 -17 [id number] [address] mouth [address] (ISORDIL) 15:55: 00:00 3D (three) [facility] 20 MG 26 :00 times a l tablet day. hydrALAZINE 2021-2021- No 25mg Q.[id number] Take 25 mg [facility] (APRESOLINE 2-17 -17 [id number] [address] mouth 3 [address] ) 25 MG [...] unit) capsule isosorbide 2021-0 2021- No 20mg Q.[id number] Take 20 mg [facility] dinitrate 04-16- [id number] by mouth 3 [facility] (ISORDIL) 15:55: 00:00 3D (three) [facility] 20 MG 26 :00 times a l tablet day. hydrALAZINE 2021-2021- No 25mg Q.[id number] Take 25 mg [facility] (APRESOLINE 04-16- [id number] by mouth 3 st ) 25 MG 15:55: 00:00 3D (three) Hospit a tablet 26 :00 times a l day. carvediloL 2021-2021- No 6.25mg Q.5D Take 6.25 [facility]i (COREG) -16 04-[address] 6.25 MG 15:55: 00:00 mouth 2 Hospit a tablet 26 :00 (two) l times a day with meals. furosemide 2021-2021- No 40mg QD Take 40 mg [facility] (LASIX) 40 04-16-[address] mg tablet 15:55: 00:00 daily. Ran H ospita 26 :00 out of l medication cholecalcif 2021-0 2021- No 1000U QD Take 1,000 Methodi arvin, 2- 02-[address] vitamin D3, 15:55: 00:00 mouth [facility] 25 mcg 26 :00 daily. l (1,000 unit) capsule isosorbide 2021-0 2021- No 20mg Q.[id number] Take 20 mg [facility]i dinitrate 04-16-17 [id number] [address] mouth [address] (ISORDIL) 15:55: 00:00 3D (three) [facility] 20 MG 26 :00 times a l tablet day. hydrALAZINE 2021- No 25mg Q.[id number] Take 25 mg [facility] (APRESOLINE 2-17 -17 [id number] by mouth 3 st ) 25 MG [...] (1,000 unit) capsule isosorbide 2021- No 20mg Q.[id number] Take 20 mg [facility] dinitrate 2-17 -17 [id number] [address] mouth [address] (ISORDIL) 15:55: 00:00 3D (three) [facility] 20 MG 26 :00 times a l tablet day. hydrALAZINE 2021- No 25mg Q.[id number] Take 25 mg [facility] (APRESOLINE 2-17 -17 [id number] [address] mouth 3 [address] ) 25 MG [...] unit) capsule isosorbide 2021-0 2- No 20mg Q.[id number] Take 20 mg [facility] dinitrate 2-17 02-17 [id number] [address] mouth [address] (ISORDIL) 15:55: 00:00 3D (three) [facility] 20 MG 26 :00 times a l tablet day. hydrALAZINE 2021-0 2- No 25mg Q.[id number] Take 25 mg [facility] (APRESOLINE 2-17 02-17 [id number] by mouth 3 st ) 25 MG [...] unit) capsule isosorbide 2021-0 2- No 20mg Q.[id number] Take 20 mg [facility] dinitrate 2-17 02-17 [id number] [address] mouth [address] (ISORDIL) 15:55: 00:00 3D (three) [facility] 20 MG 26 :00 times a l tablet day. hydrALAZINE 2021- No 25mg Q.[id number] Take 25 mg [facility] (APRESOLINE 04-16- [id number] by mouth 3 st ) 25 MG [...] No 1000U QD Take 1,000 [facility]i arvin, 04-16- Units by st vitamin D3, 15:55: 00:00 mouth [facility] 25 mcg 26 :00 daily. l (1,000 unit) capsule isosorbide 2021- No 20mg Q.[id number] Take 20 mg [facility] dinitrate 04-16 [id number] mouth [address] (ISORDIL) 15:55: 00:00 3D (three) [facility] 20 MG 26 :00 times a l tablet day. hydrALAZINE 2021- No 25mg Q.[id number] Take 25 mg [facility] (APRESOLINE 04-16- [id number] by mouth 3 st ) 25 MG [...] 26 :00 out of l medication cholecalcif 202-0 2022- No 1000U QD Take 1,000 [facility] arvin, 2-17 02-[address] vitamin D3, 15:55: 00:00 mouth [facility] 25 mcg 26 :00 daily. l (1,000 unit) capsule isosorbide 2021-0 2022- No 20mg Q.[id number] Take 20 mg [facility] dinitrate -16 04- [id number] by mouth [address] [facility] (ISORDIL) 15:55: 00:00 3D (three) [facility] 20 MG 26 :00 times a l tablet day. hydrALAZINE 2021-0 2021- No 25mg Q.[id number] Take 25 mg [facility] (APRESOLINE -16 04- [id number] by mouth 3 st ) 25 MG 15:55: 00:00 3D (three) Hospit a tablet 26 :00 times a l day. carvediloL 2021-0 2021- No 6.25mg Q.5D Take 6.25 [facility]i (COREG) -16 04-[address] 6.25 MG 15:55: 00:00 [...] daily. l (1,000 unit) capsule isosorbide 2021-0 2022- No 20mg Q.[id number] Take 20 mg [facility] dinitrate 2-16 04-17 [id number] mouth [address] (ISORDIL) 15:55: 00:00 3D (three) [facility] 20 MG 26 :00 times a l tablet day. hydrALAZINE 2021-0 2022- No 25mg Q.[id number] Take 25 mg [facility] (APRESOLINE 2-17 -17 [id number] by mouth 3 st ) 25 MG [...] (1,000 unit) capsule isosorbide 2021- No 20mg Q.[id number] Take 20 mg [facility] dinitrate -16 04- [id number] by mouth 3 st (ISORDIL) 15:55: 00:00 3D (three) [facility] 20 MG 26 :00 times a l tablet day. hydrALAZINE 2021- No 25mg Q.[id number] Take 25 mg [facility] (APRESOLINE -16 04-17 [id number] by mouth 3 st ) 25 MG [...] 1000 MG tablet calcium 2021-0 Yes 1334mg Q.[id number] Take 1,334 [facility] acetate,silvano 2-17 [id number] mg by s t sphat bind, 15:55: [...] 1000 MG tablet calcium 2021-0 Yes 1334mg Q.[id number] Take 1,334 [facility] acetate,silvano 2-17 [id number] mg by s t sphat bind, 15:55: [...] 1000 MG tablet calcium 0 Yes 1334mg Q.[id number] Take 1,334 [facility] acetate,silvano 2-17 [id number] mg by s t sphat bind, 15:55: 3D mouth 3 [facility] (PHOSLO) 25 (three) l 667 mg times a capsule day with meals. insulin 2022-0 Yes 30U QD Inject 30 Metho di [...] 1000 MG tablet calcium 2021-0 Yes 1334mg Q.[id number] Take 1,334 [facility] acetate,silvano 2-17 [id number] mg by s t sphat bind, 15:55: [...] 1000 MG tablet calcium 2021-0 Yes 1334mg Q.[id number] Take 1,334 [facility] acetate,silvano 2-17 [id number] mg by s t sphat bind, 15:55: [...] 15:55: nightly. Hospita tablet 25 l ascorbic 202-0 Yes 1000mg QD Take 1,000 M ethodi acid, 2-[address] vitamin C, 15:55: mouth Hospit a (vitamin C) 25 daily. l 1000 MG tablet calcium 2021-0 Yes 1334mg Q.[id number] Take 1,334 [facility] acetate,silvano 2-17 [id number] mg by s t sphat bind, 15:55: [...] 25 daily. l 1000 MG tablet calcium 2-0 Yes 1334mg Q.[id number] Take 1,334 [facility] acetate,silvano 2-17 [id number] mg by s t sphat bind, 15:55: [...] 1000 MG tablet calcium 0 Yes 1334mg Q.[id number] Take 1,334 [facility] acetate,silvano 2-17 [id number] mg by s t sphat bind, 15:55: 3D mouth 3 [facility] (PHOSLO) 25 (three) l 667 mg times a capsule day with meals. insulin 2021-0 Yes 30U QD Inject 30 Metho di GLARGINE 2-[address] (Lantus 15:55: under the Hospi ta Solostar 25 skin every l U-100 morning. Insulin) 100 unit/mL injection (pen) aspirin 2-0 Yes 81mg QD Take 81 mg Meth [...] 1000 MG tablet calcium 0 Yes 1334mg Q.[id number] Take 1,334 [facility] acetate,silvano 2-17 [id number] mg by s t sphat bind, 15:55: [...] 15:55: nightly. Hospita tablet 25 l ascorbic 0 Yes 1000mg QD Take 1,000 M ethodi acid, 2-[address] vitamin C, 15:55: mouth Hospit a (vitamin C) 25 daily. l 1000 MG tablet calcium 0 Yes 1334mg Q.[id number] Take 1,334 [facility] acetate,silvano 2-17 [id number] mg by s t sphat bind, 15:55: [...] 15:55: nightly. Hospita tablet 25 l ascorbic 0 Yes 1000mg QD Take 1,000 M ethodi acid, 2-[address] vitamin C, 15:55: mouth Hospit a (vitamin C) 25 daily. l 1000 MG tablet calcium 0 Yes 1334mg Q.[id number] Take 1,334 [facility] acetate,silvano 2-17 [id number] mg by s t sphat bind, 15:55: 3D mouth 3 [facility] (PHOSLO) 25 (three) l 667 mg times a capsule day with meals. insulin 0 Yes 0U Q.[id number] Inject Me thodi lispro 2-17 [id number] 0-12 Units s t (ADMELOG) 00:00: 3D under the [facility] 100 unit/mL 00 skin 3 l injection (three) times a day before meals. insulin 2021-0 Yes 0U Q.[id number] Inject Me thodi lispro 2-17 [id number] 0-12 Units s t (ADMELOG) 00:00: 3D under the [facility] 100 unit/mL 00 skin 3 l injection (three) times a day before meals. insulin 2021-0 Yes 0U Q.[id number] Inject Me thodi lispro 2-17 [id number] 0-12 Units s t (ADMELOG) 00:00: 3D under the [facility] 100 unit/mL 00 skin 3 l injection (three) times a day before meals. insulin 2021-0 Yes 0U Q.[id number] Inject Me thodi lispro 2-17 [id number] 0-12 Units s t (ADMELOG) 00:00: 3D under the [facility] 100 unit/mL 00 skin 3 l injection (three) times a day before meals. insulin 2021-0 Yes 0U Q.[id number] Inject Me thodi lispro 2-17 [id number] 0-12 Units s t (ADMELOG) 00:00: 3D under the [facility] 100 unit/mL 00 skin 3 l injection (three) times a day before meals. insulin 2021-0 Yes 0U Q.[id number] Inject Me thodi lispro 2-17 [id number] 0-12 Units s t (ADMELOG) 00:00: 3D under the [facility] 100 unit/mL 00 skin 3 l injection (three) times a day before meals. insulin 2021-0 Yes 0U Q.[id number] Inject Me thodi lispro 2-17 [id number] 0-12 Units s t (ADMELOG) 00:00: 3D under the [facility] 100 unit/mL 00 skin 3 l injection (three) times a day before meals. insulin 2021-0 Yes 0U Q.[id number] Inject Me thodi lispro 2-17 [id number] 0-12 Units s t (ADMELOG) 00:00: 3D under the [facility] 100 unit/mL 00 skin 3 l injection (three) times a day before meals. insulin 2021-0 Yes 0U Q.[id number] Inject Me thodi lispro 2-17 [id number] 0-12 Units s t (ADMELOG) 00:00: 3D under the [facility] 100 unit/mL 00 skin 3 l injection (three) times a day before meals. insulin 2021-0 Yes 0U Q.[id number] Inject Me thodi lispro 2-17 [id number] 0-12 Units s t (ADMELOG) 00:00: 3D under the [facility] 100 unit/mL 00 skin 3 l injection (three) times a day before meals. insulin 2021-0 Yes 0U Q.[id number] Inject Me thodi lispro 2-17 [id number] 0-12 Units s t (ADMELOG) 00:00: 3D under the [facility] 100 unit/mL 00 skin 3 l injection (three) times a day before meals. carvediloL 2021-0 2022- No 3.125mg Q.5D Take 1 M ethodi (COREG) 2-17 03-[address] 3.125 MG 00:00: 04:59 (3.125 [...] to 30 days. heparin 2021- No 5000U Q.[id number] Inject 1 [facility] sodium,porc 04-16 [id number] mL (5,000 st ine 00:00: 04:59 3D Units Hospita (HEParin, 00 :00 total) l porcine,) under the 5,000 skin every unit/mL 8 (eight) injection hours for 30 days. ipratropium 2021- No [id number] .5mg Q.25D Take 2.5 [facility] (ATROVENT) 04-16 24939 mL (0.5 mg s t 0.02 % [...] to 30 days. heparin 2021- No 5000U Q.[id number] Inject 1 [facility] sodium,porc 04-16-20 [id number] mL (5,000 st ine 00:00: 04:59 3D Units Hospita (HEParin, 00 :00 total) l porcine,) under the 5,000 skin every unit/mL 8 (eight) injection hours for 30 days. ipratropium 2021- No [id number] .5mg Q.25D Take 2.5 [facility] (ATROVENT) 04-16- 88987 mL (0.5 mg s t 0.02 % [...] l packet day for 30 days. carvediloL 2021-2021- No 3.125mg Q.5D Take 1 M ethodi (COREG) 04-16-[address] 3.125 MG 00:00: 04:59 (3.125 mg [facility] tablet 00 :00 total) by l mouth 2 (two) times a day for 30 days. acetaminoph 2021-2021- No 650mg Q6H Take 2 Me thodi en 04-16-[address] (TYLENOL) 00:00: 04:59 (650 mg [facility] 325 MG 00 :00 total) by l tablet mouth every 6 (six) hours as needed for mild pain, headaches or fever (GREATER than 100.4) for up to 30 days. heparin 2021- No 5000U Q.[id number] Inject 1 [facility] sodium,porc 04-16 [id number] mL (5,000 st ine 00:00: 04:59 3D Units Hospita (HEParin, 00 :00 total) l porcine,) under the 5,000 skin every unit/mL 8 (eight) injection hours for 30 days. ipratropium 2021- No [id number] .5mg Q.25D Take 2.5 [facility] (ATROVENT) 04-16 47781 mL (0.5 mg s t 0.02 % [...] to 30 days. heparin 2021- No 5000U Q.[id number] Inject 1 [facility] sodium,porc 04-16- [id number] mL (5,000 st ine 00:00: 04:59 3D Units Hospita (HEParin, 00 :00 total) l porcine,) under the 5,000 skin every unit/mL 8 (eight) injection hours for 30 days. ipratropium 2021- No [id number] .5mg Q.25D Take 2.5 [facility] (ATROVENT) 04-16- 90514 mL (0.5 mg s t 0.02 % [...] to 30 days. heparin 2021- No 5000U Q.[id number] Inject 1 [facility] sodium,porc 04-16-20 [id number] mL (5,000 st ine 00:00: 04:59 3D Units Hospita (HEParin, 00 :00 total) l porcine,) under the 5,000 skin every unit/mL 8 (eight) injection hours for 30 days. ipratropium 2021- No [id number] .5mg Q.25D Take 2.5 [facility] (ATROVENT) 04-16-20 75696 mL (0.5 mg s t 0.02 % [...] 100.4) for up to 30 days. heparin 2021-2021- No 5000U Q.[id number] Inject 1 [facility] sodium,porc 04-16- [id number] mL (5,000 st ine 00:00: 04:59 3D Units Hospita (HEParin, 00 :00 total) l porcine,) under the 5,000 skin every unit/mL 8 (eight) injection hours for 30 days. ipratropium 2021- No [id number] .5mg Q.25D Take 2.5 [facility] (ATROVENT) 04-16 52509 mL (0.5 mg s t 0.02 % [...] 100.4) for up to 30 days. heparin 2021-2021- No 5000U Q.[id number] Inject 1 [facility] sodium,porc 04-16-20 [id number] mL (5,000 st ine 00:00: 04:59 3D Units Hospita (HEParin, 00 :00 total) l porcine,) under the 5,000 skin every unit/mL 8 (eight) injection hours for 30 days. ipratropium 2021- No [id number] .5mg Q.25D Take 2.5 [facility] (ATROVENT) 04-16-20 50626 mL (0.5 mg s t 0.02 % [...] 100.4) for up to 30 days. heparin 2021-2021- No 5000U Q.[id number] Inject 1 [facility] sodium,porc 04-16-20 [id number] mL (5,000 st ine 00:00: 04:59 3D Units Hospita (HEParin, 00 :00 total) l porcine,) under the 5,000 skin every unit/mL 8 (eight) injection hours for 30 days. ipratropium 2021- No [id number] .5mg Q.25D Take 2.5 [facility] (ATROVENT) 04-16- 54590 mL (0.5 mg s t 0.02 % 00:00: 04:59 total) by Hospi ta nebulizer 00 :00 nebulizati l solution on every 6 (six) hours for 30 days. midodrine 2021-2021- No 5mg Q.5D Take 1 Metho di (PROAMATINE 04-16 tablet (5 st ) 5 MG 00:00: 04:59 mg total) Hospi ta tablet 00 :00 by mouth 2 l (two) times a day for 30 days. polyethylen 2021-2021- No 17g Q.5D Take 17 g [facility] e glycol 04-[address] (MIRALAX) 00:00: 04:59 [...] 650mg Q6H Take 2 Me thodi en 04-[address] (TYLENOL) 00:00: 04:59 (650 mg [facility] 325 MG 00 :00 total) by l tablet mouth every 6 (six) hours as needed for mild pain, headaches or fever (GREATER than 100.4) for up to 30 days. heparin 2021- No 5000U Q.[id number] Inject 1 [facility] sodium,porc 04-16- [id number] mL (5,000 st ine 00:00: 04:59 3D Units Hospita (HEParin, 00 :00 total) l porcine,) under the 5,000 skin every unit/mL 8 (eight) injection hours for 30 days. ipratropium 2021-2021- No [id number] .5mg Q.25D Take 2.5 [facility] (ATROVENT) 04-16- 20227 mL (0.5 mg s t 0.02 % [...] to 30 days. heparin 2021- No 5000U Q.[id number] Inject 1 [facility] sodium,porc 04-16- [id number] mL (5,000 st ine 00:00: 04:59 3D Units Hospita (HEParin, 00 :00 total) l porcine,) under the 5,000 skin every unit/mL 8 (eight) injection hours for 30 days. ipratropium 2021- No [id number] .5mg Q.25D Take 2.5 [facility] (ATROVENT) 04-16-20 80365 mL (0.5 mg s t 0.02 % [...] 650mg Q6H Take 2 Me [facility]odi en 04-[address] (TYLENOL) 00:00: 04:59 (650 mg [facility] 325 MG 00 :00 total) by l tablet mouth every 6 (six) hours as needed for mild pain, headaches or fever (GREATER than 100.4) for up to 30 days. heparin 2021- No 5000U Q.[id number] Inject 1 [facility] sodium,porc 04-16 [id number] mL (5,000 st ine 00:00: 04:59 3D Units Hospita (HEParin, 00 :00 total) l porcine,) under the 5,000 skin every unit/mL 8 (eight) injection hours for 30 days. ipratropium 2021- No [id number] .5mg Q.25D Take 2.5 [facility] (ATROVENT) 04-16 60048 mL (0.5 mg s t 0.02 % 00:00: 04:59 total) by Hospi ta nebulizer 00 :00 nebulizati l solution on every 6 (six) hours for 30 days. midodrine 2021- No 5mg Q.5D Take 1 Metho di (PROAMATINE 2-14 05-20 tablet (5 st ) 5 MG 00:00: 04:59 mg total) Hospi ta tablet 00 :00 by mouth 2 l (two) times a day for 30 days. polyethylen 17g Q.5D Take 17 g [facility] e glycol -17 -[address] (MIRALAX) 00:00: 04:59 (two) Hospit a 17 gram 00 :00 times a l packet day for 30 days. HYDROcodone 1{tbl} Q4H Take 1 [facility] -acetaminop 2-17 02-[address] hen (iMeigu) 00:00: 05:59 mouth [facility] 5-325 mg 00 :00 every 4 l per tablet (four) hours as needed for moderate pain for up to 7 days .acute pain. Max Daily Amount: 6 tablets HYDROcodone 1{tbl} Q4H Take 1 [facility] -acetaminop 2-17 02-[address] hen (iMeigu) 00:00: 05:59 mouth [facility] 5-325 mg 00 :00 every 4 l per tablet (four) hours as needed for moderate pain for up to 7 days .acute pain. Max Daily Amount: 6 tablets HYDROcodone 1{tbl} Q4H Take 1 [facility] -acetaminop 2-17 02-[address] hen (iMeigu) 00:00: 05:59 mouth [facility] 5-325 mg 00 :00 every 4 l per tablet (four) hours as needed for moderate pain for up to 7 days .acute pain. Max Daily Amount: 6 tablets HYDROcodone 1{tbl} Q4H Take 1 [facility] -acetaminop 2-17 02-[address] hen (iMeigu) 00:00: 05:59 mouth [facility] 5-325 mg 00 :00 every 4 l per tablet (four) hours as needed for moderate pain for up to 7 days .acute pain. Max Daily Amount: 6 tablets HYDROcodone 1{tbl} Q4H Take 1 [facility] -acetaminop 2-17 02-[address] hen (NORCO) 00:00: 05:59 mouth [facility] 5-325 mg 00 :00 every 4 l per tablet (four) hours as needed for moderate pain for up to 7 days .acute pain. Max Daily Amount: 6 tablets HYDROcodone 2021-0 2021- [place] [id number] 1{tbl} Q4H Take 1 [facility] -acetaminop 2-17 02-[address] hen (iMeigu) 00:00: 05:59 mouth [facility] 5-325 mg 00 :00 every 4 l per tablet (four) hours as needed for moderate pain for up to 7 days .acute pain. Max Daily Amount: 6 tablets HYDROcodone 2021-0 2021- No [id number] 1{tbl} Q4H Take 1 [facility] -acetaminop 2-17 02-[address] [employer] (iMeigu) 00:00: 05:59 mouth [facility] 5-325 mg 00 :00 every 4 l per tablet (four) hours as needed for moderate pain for up to 7 days .acute pain. Max Daily Amount: 6 tablets HYDROcodone 2021-0 2021- No [id number] 1{tbl} Q4H Take 1 [facility] -acetaminop 2-17 02-[address] [employer] (iMeigu) 00:00: 05:59 mouth [facility] 5-325 mg 00 :00 every 4 l per tablet (four) hours as needed for moderate pain for up to 7 days .acute pain. Max Daily Amount: 6 tablets HYDROcodone 2-0 2021- No [id number] 1{tbl} Q4H Take 1 [facility] -acetaminop 2-17 02-[address] hen (iMeigu) 00:00: 05:59 mouth [facility] 5-325 mg 00 :00 every 4 l per tablet (four) hours as needed for moderate pain for up to 7 days .acute pain. Max Daily Amount: 6 tablets HYDROcodone 2-0 2021- No [id number] 1{tbl} Q4H Take 1 [facility] -acetaminop 2-17 02-[address] [employer] (iMeigu) 00:00: 05:59 mouth [facility] 5-325 mg 00 :00 every 4 l per tablet (four) hours as needed for moderate pain for up to 7 days .acute pain. Max Daily Amount: 6 tablets [place]one 2021-2021- [place] [id number] 1{tbl} Q4H Take 1 [facility] -acetaminop 2-17 04-[address] hen (NORCO) 00:00: 05:59 mouth [facility] 5-325 mg [...] times a day for 5 days. ciprofloxac 2021-2021- No 500mg Q.5D Take 1 Me thodi [...] a day for 5 days. ciprofloxac 2021-0 2- No 500mg Q.5D Take 1 Me thodi [...] Q.5D Take 1 Me thodi in (Cipro) 03-27- tablet st 500 MG 00:00: 05:59 (500 [...] times a day for 5 days. calcitrioL 2-0 Yes .25ug QD Take 0.25 M ethodi (ROCALTROL) 1-[address] 0.25 MCG 16:00: mouth Hospita capsule 47 daily. l nitroglycer 2-[address] 0.4 M ethodi in [...] l (1,000 unit) capsule isosorbide Yes 20mg Q.[id number] Take 20 mg [facility] dinitrate 1-25 [id number] [address] mouth [address] (ISORDIL) 15:58: 3D (three) Hospi ta 20 MG 10 times a l tablet day. hydrALAZINE Yes 25mg Q.[id number] Take 25 mg [facility] (APRESOLINE 1-25 [id number] by mouth 3 st ) 25 MG 15:58: 3D (three) Hospita tablet 10 times a l day. calcium 0 Yes 1334mg Q.[id number] Take 1,334 [facility] acetate,silvano 1-25 [id number] mg by s t sphat bind, 15:58: [...] for 7 days. isosorbide 2020- No 20mg Q.[id number] Take 20 mg [facility] dinitrate 6-10 06-10 [id number] [address] mouth [address] (ISORDIL) 16:31: 00:00 3D (three) [facility] 20 MG 00 :00 times a l tablet day. carvediloL No 6.25mg Q.5D Take 6.25 [facility] (COREG) 6-10 06-[address] 6.25 MG 16:31: 00:00 mouth 2 Hospit a tablet 00 :00 (two) l times a day with meals. hydrALAZINE 2020- No 37.5mg Q.[id number] Take 37.5 [facility] (APRESOLINE 6-10 06-[id number] ) 25 MG 16:31: 00:00 3D mouth 3 Hospit a tablet 00 :00 (three) l times a day. pantoprazol 2020- No 40mg Q24H Take 40 mg Method[facility] e 08-[address] (PROTONIX) 14:19: 00:00 daily as Ho spita 40 MG EC 01 :00 needed. l tablet ascorbic No 500mg QD Take 500 Met hodi acid, 08-[address] vitamin C, 14:17: 00:00 mouth Hospi ta (VITAMIN C) 25 :00 daily. l 500 MG tablet furosemide No 40mg Q24H Take 40 mg [facility] (LASIX) 40 5-20 05-[address] mg tablet 12:15: 00:00 daily as [facility] 16 :00 needed. l furosemide No 40mg QD Take 1 Meth marsha (LASIX) 40 5-20 -09 tablet (40 st mg tablet 00:00: 00:00 mg total) Ho spita 00 :00 by mouth l daily for 30 days. LANTUS 2015-02 No Methodi SOLOSTAR 0 05-14 st 100 [...] 03:02: SUBCUTANEO Preet 19 USLY ONCE DAILY Lantus 2014-02 Yes Pallavolu INJECT 50 M emoria SoloStar 2-03 Up UNITS l 03:02: SUBCUTANEO Peck 19 USLY ONCE DAILY Lantus 2014-02 Yes Pallavolu INJECT 50 M emoria SoloStar 2-03 Up UNITS l 03:02: SUBCUTANEO Peck 19 USLY ONCE DAILY Lantus 2014-02 Yes Pallavolu INJECT 50 M emoria SoloStar 2-03 Up UNITS l 03:02: [facility] USLY ONCE DAILY Pantoprazol Yes [...] 4-15 Up TABLET BY l 02:03: MOUTH TWICE DAILY Plavix Yes Pallavolu 1 tablet Me moria 4-15 Up Once a day l 02:03: Orally 90 days Novolin Yes Pallavolu 20 UNITS M [...] 4-15 Up TABLET BY l 02:03: MOUTH TWICE DAILY Plavix Yes Pallavolu 1 tablet Me moria 4-15 Up Once a day l 02:03: Orally 90 days Novolin Yes Pallavolu 20 UNITS M [...] 00:00: Lantus Yes Pallavolu 40 UNITS Me shani Martinez 3-13 Up l 00:00: Lantus Yes Pallavolu 40 UNITS Me shani Martinez 3-13 Up l 00:00: Lantus Yes Pallavolu 40 UNITS Me shani Martinez 3-13 Up l 00:00: Lantus Yes Pallavolu 40 UNITS Me shani Martinez 3-13 Up l 00:00: Aspirin 81 Aspirin [...] Date Status Commen ts Source Name Name [facility] 2014-11-[address] [facility] 00:00:00 [facility] 2014-11-[address] [facility] 00:00:00 [facility] 2014-11-[address] [facility] 00:00:00 [facility] 2014-11-[address] [facility] 00[facility]00:00 [facility] 2014-11-[address] [facility] 00:00:00 [facility] 2014-11-[address] [facility] 00[facility]00:00 [facility] 2014-11-[address] [facility] 00:00:00 [facility] 2014-11-[address] [facility] 00:00:00 [facility] Vital Signs Vital Name Observation Time Observation Value Comments Source WEIGHT 2022-02-22 19:00:00 85.7 kg HEIGHT 2022-02-17 02:00:00 175.3 cm WEIGHT 2022-02-17 02:00:00 84.823 kg WEIGHT 2022-02-22 19:00:00 85.7 kg HEIGHT 2022-02-17 02:00:00 175.3 cm WEIGHT 2022-02-17 02:00:00 84.823 kg WEIGHT 2022-02-22 19:00:00 85.7 kg HEIGHT 2022-02-17 02:00:00 175.3 cm WEIGHT 2022-02-17 02:00:00 84.823 kg WEIGHT 2021-11-29 17:10:00 78.4 kg WEIGHT 2021-11-29 06:00:00 78.4 kg WEIGHT 2021-11-29 03:00:00 78.4 kg WEIGHT 2021-11-29 17:10:00 78.4 kg WEIGHT 2021-11-29 06:00:00 78.4 kg WEIGHT 2021-11-29 03:00:00 78.4 kg WEIGHT 2021-11-29 17:10:00 78.4 kg WEIGHT 2021-11-29 06:00:00 78.4 kg WEIGHT 2021-11-29 03:00:00 78.4 kg oximetry 2021-10-23 15:00:00 99 % [facility] respiratory rate 2021-10-23 15:00:00 17 /min Comm on [facility] blood pressure 2021-10-23 15:00:00 114 mm[Hg] [facility] blood pressure 2021-10-23 15:00:00 55 mm[Hg] [facility] diastolic [facility] height 2021-10-23 15:00:00 65 [in_i] Common [facility] weight 2021-10-23 15:00:00 179 [lb_av] [facility] temperature 2021-10-23 15:00:00 98.7 [degF] [facility] bmi 2021-10-23 15:00:00 29.78 kg/m2 [facility] height 2021-10-23 14:20:00 65 [in_i] [facility] weight 2021-10-23 14:20:00 179 [lb_av] [facility] temperature 2021-10-23 14:20:00 98.7 [degF] [facility] bmi 2021-10-23 14:20:00 29.78 kg/m2 [facility] oximetry 2021-10-23 14:20:00 99 % [facility] respiratory rate 2021-10-23 14:20:00 17 /min Comm on [facility] blood pressure 2021-10-23 14:20:00 114 mm[Hg] Common [facility] - systolic [facility] blood pressure 2021-10-23 14:20:00 55 mm[Hg] Common [facility] diastolic [facility] height 2021-09-24 10:00:00 65 [in_i] Common [facility] weight 2021-09-24 10:00:00 179 [lb_av] [facility] temperature 2021-09-24 10:00:00 97.5 [degF] [facility] bmi 2021-09-24 10:00:00 29.78 kg/m2 [facility] oximetry 2021-09-24 10:00:00 100 % [facility] respiratory rate 2021-09-24 10:00:00 16 /min Comm on [facility] blood pressure 2021-09-24 10:00:00 120 mm[Hg] Common [facility] - systolic [facility] blood pressure 2021-09-24 10:00:00 68 mm[Hg] [facility] - diastolic [facility] Systolic blood 2022-03-05 17:00:00 116 mm[Hg] [facility] Diastolic blood 2022-03-05 17:00:00 57 mm[Hg] [facility] Heart rate 2022-03-05 17:00:00 71 /min [facility] Body temperature 2022-03-05 17:00:00 36.28 Jennyfer [facility] Respiratory rate 2022-03-05 17:00:00 17 /min [facility] Oxygen saturation in 2022-03-05 17:00:00 98 /min [facility] Arterial blood by Medical Ce nter Pulse oximetry Body weight 2022-02-22 19:00:00 85.7 kg [facility] BMI 2022-02-22 19:00:00 27.90 kg/m2 [facility] Body height 2022-02-17 02:00:00 175.3 cm [facility] Systolic blood 2021-11-29 22:00:00 122 mm[Hg] [facility] Diastolic blood 2021-11-29 22:00:00 60 mm[Hg] [facility] Heart rate 2021-11-29 22:00:00 79 /min [facility] Respiratory rate 2021-11-29 22:00:00 20 /min [facility] Oxygen saturation in 2021-11-29 22:00:00 99 /min [facility] Arterial blood by Medical Ce nter Pulse oximetry Body temperature 2021-11-29 20:00:00 36.89 Jennyfer [facility] Body weight 2021-11-29 17:10:00 78.4 kg [facility] Oxygen saturation in 2021-06-02 18:12:00 98 /min [facility] Arterial blood by Pulse oximetry Systolic blood 2021-06-02 18:12:00 123 mm[Hg] [facility] pressure Diastolic blood 2021-06-02 18:12:00 70 mm[Hg] [facility] pressure Heart rate 2021-06-02 18:12:00 88 /min [facility] Body height 2021-06-02 18:12:00 165.1 cm [facility] Body weight 2021-06-02 18:12:00 104.781 kg [facility] BMI 2021-06-02 18:12:00 38.44 kg/m2 [facility] Respiratory rate 2021-04-16 19:59:00 18 /min [facility] Body temperature 2021-04-16 14:35:00 36.61 Jennyfer [facility] Body height 2021-03-25 16:20:00 165.1 cm [facility] Body weight 2021-03-25 16:20:00 89.086 kg [facility] BMI 2021-03-25 16:20:00 32.68 kg/m2 [facility] Systolic blood 2021-03-25 15:49:00 128 mm[Hg] Method [facility] pressure Diastolic blood 2021-03-25 15:49:00 60 mm[Hg] [facility] pressure Heart rate 2021-03-25 15:49:00 73 /min [facility] Body temperature 2021-03-25 15:49:00 35.89 Jennyfer [facility] Respiratory rate 2021-03-25 15:49:00 20 /min [facility] Oxygen saturation in 2021-03-25 15:49:00 100 /min [facility] Arterial blood by Pulse oximetry Weight 2014-06-10 15:00:00 [facility] Temperature Oral (F) 2014-06-10 15:00:00 98.4 F [facility] Heart Rate 2014-06-10 15:00:00 [facility] Diastolic (mm Hg) 2014-06-10 15:00:00 Mem [facility] Systolic (mm Hg) 2014-06-10 15:00:00 [facility] Weight 2014-05-17 15:15:00 [facility] Temperature Oral (F) 2014-05-17 15:15:00 98.6 F [facility] Diastolic (mm Hg) 2014-05-17 15:15:00 [facility] Systolic (mm Hg) 2014-05-17 15:15:00 [facility] Weight 2014-03-25 15:45:00 [facility] Temperature Oral (F) 2014-03-25 15:45:00 97.9 F [facility] Heart Rate 2014-03-25 15:45:00 [facility] Diastolic (mm Hg) 2014-03-25 15:45:00 [facility] Systolic (mm Hg) 2014-03-25 15:45:00 [facility] Procedures Procedure Date / Time Performing Clinician Source Performed POCT-GLUCOSE METER 2022-03-05 15:47:00 Ирина Jaramillo [facility] POCT-GLUCOSE METER 2022-03-05 11:05:00 Ирина Jaramillo [facility] VANCOMYCIN LEVEL, RANDOM 2022-03-05 09:00:00 Gonzalo Coles [facility], [facility] POCT-GLUCOSE METER 2022-03-05 06:25:00 Ирина Jaramillo [facility] CBC W/PLT COUNT & AUTO 2022-03-05 04:45:00 Ирина Jaramillo [facility] BASIC METABOLIC PANEL 2022-03-05 04:45:00 Ирина Jaramillo [facility] MAGNESIUM 2022-03-05 04:45:00 Ирина Jaramillo [facility] PHOSPHORUS 2022-03-05 04:45:00 Ирина Jaramillo [facility] CBC W/PLT COUNT & AUTO 2022-03-05 04:45:00 Ирина Jaramillo [facility] POCT-GLUCOSE METER 2022-03-04 20:40:00 Lalithamukund Ирина C [facility] POCT-GLUCOSE METER 2022-03-04 15:38:00 EllaИрина [facility] POCT-GLUCOSE METER 2022-03-04 11:44:00 EllaИрина [facility] POCT-GLUCOSE METER 2022-03-04 08:35:00 LalithamukundИрина [facility] POCT-GLUCOSE METER 2022-03-04 06:02:00 LalithamuukndИрина [facility] CBC W/PLT COUNT & AUTO 2022-03-04 04:50:00 Ирина Jaramillo [facility] BASIC METABOLIC PANEL 2022-03-04 04:50:00 Ирина Jaramillo [facility] MAGNESIUM 2022-03-04 04:50:00 Ирина Jaramillo [facility] PHOSPHORUS 2022-03-04 04:50:00 Ирина Jaramillo [facility] CBC W/PLT COUNT & AUTO 2022-03-04 04:50:00 [facility] POCT-GLUCOSE METER 2022-03-03 20:53:00 LalithamukundИрина [facility] POCT-GLUCOSE METER 2022-03-03 15:37:00 Ирина Jaramillo [facility] 2D ECHO W/ DOPPLER 2022-03-03 12:07:04 Ирина Jaramillo [facility] (CW/PW/COLOR) [facility] POCT-GLUCOSE METER 2022-03-03 10:59:00 [facility] CBC W/PLT COUNT & AUTO 2022-03-03 06:27:00 Ирина Jaramillo [facility] BASIC METABOLIC PANEL 2022-03-03 06:27:00 Ирина Jaramillo [facility] MAGNESIUM 2022-03-03 06:27:00 Ирина Jaramillo [facility] PHOSPHORUS 2022-03-03 06:27:00 Ирина Jaramillo [facility] CBC W/PLT COUNT & AUTO 2022-03-03 06:27:00 Ella Ирина Albina [facility] (MANUAL DIFFERENTIAL) 2022-03-03 06:27:00 Ella Ирина Albina [facility] PREPARE RBC 2022-03-02 23:54:00 Valeria, [facility] POCT-GLUCOSE METER 2022-03-02 23:25:00 [facility] POCT-GLUCOSE METER 2022-03-02 15:27:00 [facility] BRAIN WITHOUT IV 2022-03-02 12:40:[address] [facility] POCT-GLUCOSE METER 2022-03-02 11:49:00 [facility] POCT-GLUCOSE METER 2022-03-02 06:08:00 [facility] CBC W/PLT COUNT & AUTO 2022-03-02 04:04:00 Ella [facility] BASIC METABOLIC PANEL 2022-03-02 04:04:00 Ella Ирина C [facility] MAGNESIUM 2022-03-02 04:04:00 [facility] PHOSPHORUS 2022-03-02 04:04:00 [facility] CBC W/PLT COUNT & AUTO 2022-03-02 04:04:00 [facility] Ирина Albina [facility] POCT-GLUCOSE METER 2022-03-01 20:52:00 [facility] TRANSFUSE LEUKO-REDUCED 2022-03-01 15:20:[facility] POCT-GLUCOSE METER 2022-03-01 14:59:00 [facility] TYPE AND SCREEN, AUTOMATED 2022-03-01 12:53:00 [facility] PO[facility]-GLUCOSE METER 2022-03-01 10:50:00 Valeria [facility] POCT-GLUCOSE METER 2022-03-01 06:12:00 Valeria [facility] CBC W/PLT COUNT & AUTO 2022-03-01 04:33:00 Ella Ирина Albina [facility] BASIC METABOLIC PANEL 2022-03-01 04:33:00 Ирина Jaramillo [facility] MAGNESIUM 2022-03-01 04:33:00 LalithamukundИрина [facility] PHOSPHORUS 2022-03-01 04:33:00 LalithamukundИрина [facility] CBC W/PLT COUNT & AUTO 2022-03-01 04:33:00 Ella Ирина C [facility] POCT-GLUCOSE METER 2022-02-28 20:27:00 Valeria [facility] POCT-GLUCOSE METER 2022-02-28 16:44:00 Valeria, [facility] CBC W/PLT COUNT & AUTO 2022-02-28 12:29:00 LalithaehIsaew Albina [facility] BASIC METABOLIC PANEL 2022-02-28 12:29:00 Ирина Jaramillo [facility] MAGNESIUM 2022-02-28 12:29:00 Lalithamukund Ирина C [facility] PHOSPHORUS 2022-02-28 12:29:00 Ирина Jaramillo [facility] CBC W/PLT COUNT & AUTO 2022-02-28 12:29:00 Ella Иирна C [facility] POCT-GLUCOSE METER 2022-02-28 12:11:00 Valeria, [facility] POCT-GLUCOSE METER 2022-02-28 07:52:00 Valeria, [facility] POCT-GLUCOSE METER 2022-02-27 21:46:00 Valeria, [facility] POCT-GLUCOSE METER 2022-02-27 16:03:00 [facility] POCT-GLUCOSE METER 2022-02-27 11:40:00 Ronak Shaw [facility] VANCOMYCIN LEVEL, RANDOM 2022-02-27 10:50:00 Gonzalo Coles CH, I [facility] POCT-GLUCOSE METER 2022-02-27 06:18:00 Ирина Jaramillo [facility] CBC W/PLT COUNT & AUTO 2022-02-27 04:00:00 Ирина Jaramillo [facility] BASIC METABOLIC PANEL 2022-02-27 04:00:00 Ирина Jaramillo [facility] MAGNESIUM 2022-02-27 04:00:00 Ирина Jaramillo [facility] PHOSPHORUS 2022-02-27 04:00:00 Ирина Jaramillo [facility] CBC W/PLT COUNT & AUTO 2022-02-27 04:00:00 Ирина Jaramillo [facility] POCT-GLUCOSE METER 2022-02-26 20:55:00 Ирина Jaramillo [facility] POCT-GLUCOSE METER 2022-02-26 10:38:00 Ирина Jaramillo [facility] BODY FLUID CULTURE + GRAM 2022-02-26 07:31:00 Ashok [facility] BODY FLUID CELL COUNT WITH 2022-02-26 07:23:00 Darya Ellis [facility] CBC W/PLT COUNT & AUTO 2022-02-26 06:38:00 Ирина Jaramillo [facility] BASIC METABOLIC PANEL 2022-02-26 06:38:00 Ирина Jaramillo [facility] MAGNESIUM 2022-02-26 06:38:00 Ирина Jaramillo [facility] PHOSPHORUS 2022-02-26 06:38:00 Ирина Jaramillo [facility] CBC W/PLT COUNT & AUTO 2022-02-26 06:38:00 Ирина Jaramillo [facility] POCT-GLUCOSE METER 2022-02-26 06:25:00 Ирина Jaramillo [facility] POCT-GLUCOSE METER 2022-02-25 21:29:00 LalithamukundИрина [facility] POCT-GLUCOSE METER 2022-02-25 16:35:00 LalithamukundИрина [facility] POCT-GLUCOSE METER 2022-02-25 12:11:00 Ирина Jaramillo [facility] CBC W/PLT COUNT & AUTO 2022-02-25 07:05:00 LalithamuknudИрина [facility] CBC W/PLT COUNT & AUTO 2022-02-25 07:05:00 Ирина Jaramillo [facility] POCT-GLUCOSE METER 2022-02-25 06:13:00 Ирина Jaramillo [facility] BASIC METABOLIC PANEL 2022-02-25 06:00:00 Ирина Jaramillo [facility] MAGNESIUM 2022-02-25 06:00:00 Ирина Jaramillo [facility] PHOSPHORUS 2022-02-25 06:00:00 Ирина Jaramillo [facility] POCT-GLUCOSE METER 2022-02-24 20:51:00 LalithaИрина [facility] POCT-GLUCOSE METER 2022-02-24 16:40:00 Ирина Jaramillo [facility] XR ABDOMEN/KUB 1 VIEW 2022-02-24 15:24:00 Kilo Piper CH, I [facility] POCT-GLUCOSE METER 2022-02-24 11:40:00 Ирина Jaramillo [facility] VANCOMYCIN LEVEL, TROUGH 2022-02-24 10:36:00 Traci Mcclure [facility] POCT-GLUCOSE METER 2022-02-24 06:03:00 Ирина Jaramillo [facility] CBC W/PLT COUNT & AUTO 2022-02-24 05:14:00 Ирина Jaramillo [facility] BASIC METABOLIC PANEL 2022-02-24 05:14:00 Ирина Jaramillo [facility] MAGNESIUM 2022-02-24 05:14:00 Ирина Jaramillo [facility] PHOSPHORUS 2022-02-24 05:14:00 Ирина Jaramillo [facility] CBC W/PLT COUNT & AUTO 2022-02-24 05:14:00 Ирина Jaramillo [facility] US ABDOMEN COMPLETE 2022-02-23 22:25:00 Kilo Piper [facility] POCT-GLUCOSE METER 2022-02-23 20:29:00 Ирина Jaramillo [facility] POCT-GLUCOSE METER 2022-02-23 15:32:00 Ирина Jaramillo [facility] POCT-GLUCOSE METER 2022-02-23 11:51:00 Ирина Jaramillo [facility] VANCOMYCIN LEVEL, RANDOM 2022-02-23 05:32:00 Jenise Crump [facility] CBC (HEMOGRAM ONLY) 2022-02-23 05:32:00 Valeria [facility] BASIC METABOLIC PANEL 2022-02-23 05:32:00 Valeria [facility] MAGNESIUM 2022-02-23 05:32:00 Ирина Jaramillo [facility] PHOSPHORUS 2022-02-23 05:32:00 Ирина Jaramillo [facility] HEMOGLOBIN A1C 2022-02-23 05:32:00 Kilo Piper [facility] C. DIFFICILE GDH TOXIN 2022-02-22 22:11:00 Valeria [facility] STOOL PATH CHARGE 2022-02-22 17:31:00 Valeria, [facility] STOOL CULTURE + SHIGA 2022-02-22 17:31:00 Valeria, [facility] SHIGA TOXIN SCREEN 2022-02-22 17:31:00 Valeria [facility] POCT-GLUCOSE METER 2022-02-22 10:40:00 [facility] POCT-GLUCOSE METER 2022-02-22 07:06:00 [facility] (HEMOGRAM ONLY) 2022-02-22 05:01:[address] [facility] BASIC METABOLIC PANEL 2022-02-22 04:58:00 [facility] POCT-GLUCOSE METER 2022-02-21 21:13:00 Valeria, [facility] POCT-GLUCOSE METER 2022-02-21 16:55:00 Valeria, [facility] POCT-GLUCOSE METER 2022-02-21 11:07:00 Valeria, [facility] POCT-GLUCOSE METER 2022-02-21 06:18:00 [facility] CBC (HEMOGRAM ONLY) 2022-02-21 05:08:[address] [facility] BASIC METABOLIC PANEL 2022-02-21 05:08:00 Valeria, [facility] POCT-GLUCOSE METER 2022-02-20 20:11:00 Valeria, [facility] POCT-GLUCOSE METER 2022-02-20 16:51:00 Valeria, [facility] POCT-GLUCOSE METER 2022-02-20 11:47:00 [facility] POCT-GLUCOSE METER 2022-02-20 09:44:00 [facility] POCT-GLUCOSE METER 2022-02-20 05:50:00 Valeria [facility] CBC W/PLT COUNT & AUTO 2022-02-20 05:22:00 Ирина Jaramillo [facility] CBC W/PLT COUNT & AUTO 2022-02-20 05:22:00 Ирина Jaramillo [facility] BASIC METABOLIC PANEL 2022-02-20 05:22:00 Ирина Jaramillo [facility] MAGNESIUM 2022-02-20 05:22:00 Ирина Jaramillo [facility] PHOSPHORUS 2022-02-20 05:22:00 Ирина Jaramillo [facility] POCT-GLUCOSE METER 2022-02-19 21:01:00 Ирина Jaramillo [facility] POCT-GLUCOSE METER 2022-02-19 15:36:00 Ирина Jaramillo [facility] POCT-GLUCOSE METER 2022-02-19 12:17:00 Ирина Jaramillo [facility] CBC W/PLT COUNT & AUTO 2022-02-19 07:45:00 Ирина Jaramillo [facility] VANCOMYCIN LEVEL, TROUGH 2022-02-19 07:45:00 Traci Mcclure [facility] CBC W/PLT COUNT & AUTO 2022-02-19 07:45:00 Ирина Jaramillo [facility] BASIC METABOLIC PANEL 2022-02-19 07:45:00 Ирина Jaramillo [facility] MAGNESIUM 2022-02-19 07:45:00 Ирина Jaramillo [facility] PHOSPHORUS 2022-02-19 07:45:00 Ирина Jaramillo [facility] POCT-GLUCOSE METER 2022-02-19 06:28:00 Ирина Jaramillo [facility] POCT-GLUCOSE METER 2022-02-18 22:56:00 Ирина Jaramillo [facility] POCT-GLUCOSE METER 2022-02-18 18:44:00 Ирина Jaramillo [facility] PERITONEAL DIALYSIS 2022-02-18 16:25:00 Darya Ellis [facility] CULTURE [facility] BODY FLUID CELL COUNT WITH 2022-02-18 16:25:00 Darya Ellis [facility] POCT-GLUCOSE METER 2022-02-18 05:42:00 Ирина Jaramillo [facility] CBC W/PLT COUNT & AUTO 2022-02-18 04:09:00 Ирина Jaramillo [facility] HEPATITIS B SURFACE 2022-02-18 04:09:00 Darya Ellis [facility] HEPATITIS B SURFACE 2022-02-18 04:09:00 NickDarya chávez [facility] ANTIBODY [facility] CBC W/PLT COUNT & AUTO 2022-02-18 04:09:00 Ирина Jaramillo [facility] BASIC METABOLIC PANEL 2022-02-18 04:09:00 Ирина Jaramillo [facility] MAGNESIUM 2022-02-18 04:09:00 Ирина Jaramillo [facility] PHOSPHORUS 2022-02-18 04:09:00 Ирина Jaramillo [facility] POCT-GLUCOSE METER 2022-02-17 21:45:00 Ирина Jaramillo [facility] POCT-GLUCOSE METER 2022-02-17 20:51:00 Ирина Jaramillo [facility] POCT-GLUCOSE METER 2022-02-17 16:59:00 Ирина Jaramillo [facility] POCT-GLUCOSE METER 2022-02-17 12:38:00 Ирина Jaramillo [facility] VANCOMYCIN LEVEL, RANDOM 2022-02-17 11:44:00 Krish Ruffin I [facility] POCT-GLUCOSE METER 2022-02-17 06:38:00 Ирина Jaramillo [facility] PROTHROMBIN TIME/INR 2022-02-17 06:37:00 Brody Shipley [facility] CBC W/PLT COUNT & AUTO 2022-02-17 03:43:00 Brody Shipley [facility] BASIC METABOLIC PANEL 2022-02-17 03:43:00 Brody Shipley [facility] HEPATIC FUNCTION PANEL 2022-02-17 03:43:00 Brody Shipley [facility] HEMOGLOBIN A1C 2022-02-17 03:43:00 Brody Shipley [facility] LIPID PANEL 2022-02-17 03:43:00 Brody Shipley [facility] MAGNESIUM 2022-02-17 03:43:00 Brody Shipley [facility] PHOSPHORUS 2022-02-17 03:43:00 Augustin Shipleyhir Josseline [facility] CBC W/PLT COUNT & AUTO 2022-02-17 03:43:00 ViolettaGriseldar Josseline [facility] BLOOD CULTURE 2022-02-17 03:42:00 Violetta Brody Josseline [facility] PREPARE RBC 2021-12-10 23:54:00 Corona, [facility] POCT-GLUCOSE METER 2021-12-10 12:02:00 Corona, [facility] POCT-GLUCOSE METER 2021-12-10 07:11:00 Corona, [facility] BASIC METABOLIC PANEL 2021-12-10 04:15:00 Corona, [facility] POCT-GLUCOSE METER 2021-12-09 20:56:00 Corona, [facility] XR ABDOMEN/KUB 1 VIEW 2021-12-09 16:46:00 Farzad Alberto CH I [facility] POCT-GLUCOSE METER 2021-12-09 16:12:00 Corona, [facility] POCT-GLUCOSE METER 2021-12-09 11:28:00 Corona, [facility] POCT-GLUCOSE METER 2021-12-09 07:43:00 Corona, [facility] POCT-GLUCOSE METER 2021-12-08 21:54:00 Corona, [facility] POCT-GLUCOSE METER 2021-12-08 20:09:00 Corona, [facility] ABORH, MANUAL 2021-12-08 17:28:00 Ct Paul [facility] POCT-GLUCOSE METER 2021-12-08 16:22:00 Corona, [facility] TYPE AND SCREEN, AUTOMATED 2021-12-08 14:53:00 CoronaJosé Luis martinezhu Kang Montemayor HI [facility] POCT-GLUCOSE METER 2021-12-08 10:47:00 Corona, [facility] POCT-GLUCOSE METER 2021-12-08 07:06:00 Corona, [facility] POCT-GLUCOSE METER 2021-12-07 20:19:00 Corona, [facility] POCT-GLUCOSE METER 2021-12-07 17:18:00 Corona, [facility] POCT-GLUCOSE METER 2021-12-07 12:13:00 Corona, [facility] POCT-GLUCOSE METER 2021-12-07 08:36:00 Corona, [facility] POCT-GLUCOSE METER 2021-12-06 20:51:00 Corona, [facility] POCT-GLUCOSE METER 2021-12-06 16:19:00 Corona, [facility] POCT-GLUCOSE METER 2021-12-06 11:50:00 Corona, [facility] POCT-GLUCOSE METER 2021-12-06 08:09:00 Corona, [facility] POCT-GLUCOSE METER 2021-12-05 20:34:00 Corona, [facility] POCT-GLUCOSE METER 2021-12-05 16:21:00 Corona, [facility] POCT-GLUCOSE METER 2021-12-05 12:03:00 Corona, [facility] POCT-GLUCOSE METER 2021-12-05 07:59:00 Corona, [facility] POCT-GLUCOSE METER 2021-12-04 20:53:00 Corona, [facility] POCT-GLUCOSE METER 2021-12-04 16:38:00 Corona, [facility] XR ABDOMEN/KUB 1 VIEW 2021-12-04 13:22:00 Corona, [facility] POCT-GLUCOSE METER 2021-12-04 11:34:00 Corona, [facility] POCT-GLUCOSE METER 2021-12-04 07:53:00 Corona, [facility] POCT-GLUCOSE METER 2021-12-03 21:09:00 Corona, [facility] POCT-GLUCOSE METER 2021-12-03 17:01:00 Corona, [facility] POCT-GLUCOSE METER 2021-12-03 11:55:00 Corona, [facility] POCT-GLUCOSE METER 2021-12-03 07:46:00 Corona, [facility] POCT-GLUCOSE METER 2021-12-02 22:14:00 Corona, [facility] POCT-GLUCOSE METER 2021-12-02 20:37:00 Corona, [facility] POCT-GLUCOSE METER 2021-12-02 16:04:00 Corona, [facility] POCT-GLUCOSE METER 2021-12-02 11:15:00 Corona, [facility] POCT-GLUCOSE METER 2021-12-02 07:37:00 Corona, [facility] POCT-GLUCOSE METER 2021-12-02 06:27:00 Corona, [facility] POCT-GLUCOSE METER 2021-12-01 16:48:00 Corona, [facility] POCT-GLUCOSE METER 2021-12-01 15:14:00 Corona, [facility] POCT-GLUCOSE METER 2021-12-01 11:00:00 Corona, [facility] POCT-GLUCOSE METER 2021-12-01 08:06:00 Corona, [facility] POCT-GLUCOSE METER 2021-12-01 06:08:00 Corona, [facility] POCT-GLUCOSE METER 2021-11-30 22:11:00 Corona, Will B [facility] 2D ECHO W/ DOPPLER 2021-11-30 08:22:20 Stas Lyles [facility] (CW/PW/COLOR) [facility] POCT-GLUCOSE METER 2021-11-29 21:16:00 CoronaWill martinez [facility] LACTIC ACID, VENOUS 2021-11-29 21:03:00 [facility] BASIC METABOLIC PANEL 2021-11-29 21:03:00 [facility] BODY FLUID CULTURE + GRAM 2021-11-29 17:27:00 Stephanie Hough CH, I [facility] STAIN [facility] BODY FLUID CELL COUNT WITH 2021-11-29 17:25:[address] [facility] DIFFERENTIAL [facility] POCT-GLUCOSE METER 2021-11-29 16:11:00 Jade [facility] LACTIC ACID, VENOUS 2021-11-29 14:13:00 [facility] BASIC METABOLIC PANEL 2021-11-29 14:13:00 [facility] MAGNESIUM 2021-11-29 14:13:00 [facility] CALCIUM, IONIZED 2021-11-29 12:24:00 [facility] BLOOD CULTURE 2021-11-29 04:50:[address] [facility] B-TYPE NATRIURETIC FACTOR 2021-11-29 04:45:00 Stas Lyles CH, I [facility] (BNP) [facility] KETONE, BLOOD 2021-11-29 04:44:[address] [facility] CBC W/PLT COUNT & AUTO 2021-11-29 04:20:00 Stas Lyles [facility] DIFFERENTIAL [facility] CBC W/PLT COUNT & AUTO 2021-11-29 04:20:00 Stas Lyles [facility] DIFFERENTIAL [facility] COMPREHENSIVE METABOLIC 2021-11-29 04:20:00 Stas Lyles [facility] PANEL [facility] CALCIUM, IONIZED 2021-11-29 04:20:00 Stas Lyles [facility] MAGNESIUM 2021-11-29 04:20:00 Stas Lyles [facility] PHOSPHORUS 2021-11-29 04:20:00 Rafal [facility] TSH/FREE T4 IF INDICATED 2021-11-29 04:20:00 Stas Lyles [facility] T4, FREE 2021-11-29 04:20:00 Stas Lyles [facility] BLOOD CULTURE 2021-11-29 04:19:00 Stas Lyles [facility] ECG 12-LEAD 2021-11-29 04:00:34 Unknown, Hl7 [facility] ECG 12-LEAD 2021-11-29 04:00:34 Unknown, Hl7 [facility] ECG 12-LEAD 2021-11-29 03:59:50 OpalStas alexandra [facility] ECG 12-LEAD 2021-11-29 03:59:50 Unknown, Hl7 [facility] ECG 12-LEAD 2021-11-29 03:59:50 Unknown, Hl7 [facility] XR CHEST 1 VIEW PORTABLE / 2021-11-29 03:50:00 Stas Lyles [facility] PERMANENT LAB REPORT - 2021-11-29 00:00:00 Provider, [facility] POC GLUCOSE 2021-04-16 17:45:00 Forest Mcmahon POC GLUCOSE 2021-04-16 14:31:00 Forest Mcmahon XR CHEST 1 VW PORTABLE 2021-04-16 13:40:16 [facility] 2021-04-16 10:34[facility]00 [facility] BASIC METABOLIC PANEL 2021-04-16 10:34[facility]00 [facility] L[facility] 2021-04-16 10:34:00 Linda Nolan ESTIMATED GFR 2021-04-16 10:34:00 Linda Nolan POC GLUCOSE 2021-04-16 03:06:00 Thampoe, Forest Torres [facility] Stephane COVID-19 QUALITATIVE 2021-04-15 23:24:00 [facility] Stephane COVID-19 OMICRON VARIANT 2021-04-15 23:24:00 Thampoe, Forest [facility] QUALITATIVE RT-PCR Stephane POC GLUCOSE 2021-04-15 23:04:00 Thampoe, Forest [facility] TYPE AND SCREEN 2021-04-15 19:14:00 [facility] PREPARE RBC 2021-04-15 19:14:00 [facility] POC GLUCOSE 2021-04-15 18:11:00 Thampoe, Forest Torres [facility] Ste[facility]ane POC GLUCOSE 2021-04-15 14:02:00 Thampoe, Forest Torres [facility] XR CHEST 1 VW PORTABLE 2021-04-15 12:48:08 [facility] COMPLETE BLD COUNT 2021-04-15 11:53:00 [facility] W/AUTO DIFF BASIC METABOLIC PANEL 2021-04-15 11:53:00 [facility] MAGNESIUM LEVEL 2021-04-15 11:53:00 An [facility] Brian Dowell spital ESTIMATED GFR 2021-04-15 11:53:00 Linda Nolan spital POC GLUCOSE 2021-04-15 02:15:00 ThampoeForest Ho spital Stephane POC GLUCOSE 2021-04-14 22:22:00 Thampoe, Forest Torres [facility] POC GLUCOSE 2021-04-14 17:48:00 Thampoe, Forest Torres [facility] Stephane POC GLUCOSE 2021-04-14 13:59:00 Thampoe, Forest Torres [facility]ane XR CHEST 1 VW PORTABLE 2021-04-14 10:53:13 [facility] COMPLETE BLD [facility] 2021-04-14 10:38:00 [facility] DIFF BASIC METABOLIC PANEL 2021-04-14 10:38:00 [facility]NESIUM LEVEL 2021-04-14 10:38:00 NolanLinda Ho spital PHOSPHORUS LEVEL 2021-04-14 10:38:00 Linda Nolan H ospital ESTIMATED GFR 2021-04-14 10:38:00 NolanLinda Ho spital POC GLUCOSE 2021-04-14 01:44:00 Thampoe, Basti [employer] [facility] Stephane POC GLUCOSE 2021-04-13 22:25:00 Thampoe, Basti [employer] [facility] POC GLUCOSE 2021-04-13 17:51:00 Thampoe, Basti [employer] [facility] Ste[facility]ane POC GLUCOSE 2021-04-13 13:43:00 Thampoe, Basvirgil [facility] Ste[facility]ane XR CHEST 1 PORTABLE 2021-04-13 11:21:44 [facility] BASIC METABOLIC PANEL 2021-04-13 11:11:00 [facility] HC COMPLETE BLD COUNT 2021-04-13 11:11[facility]00 [facility] MAGNESI[facility] LEVEL 2021-04-13 11:11:00 [facility]argav [facility] PHOSPHORUS LEVEL 2021-04-13 11:11:00 [facility] ION[facility] CALCIUM 2021-04-13 11:11:00 Bhargav [facility] ESTIMATED GFR 2021-04-13 11:11:00 [facility] POC GLUCOSE 2021-04-13 02:04:00 Thampoe, Forest [facility] Stephane POC GLUCOSE 2021-04-12 22:15:00 Thampoe, Basti [facility] Stephane POC GLUCOSE 2021-04-12 18:13:00 Thampoe, Basti [facility] Stephane POC GLUCOSE 2021-04-12 15:09:00 Thampoe, [facility]i [facility] Stephane XR CHEST 1 VW PORTABLE 2021-04-12 11:42:00 Prieto, [facility] BASIC METABOLIC PANEL 2021-04-12 10:24:00 [facility] HC COMPLETE BLD COUNT 2021-04-12 10:24:00 [facility], [facility] W/AUTO DIFF MAGNESIUM LEVEL 2021-04-12 10:24:00 Prieto, Christa Terry [facility] PHOSPHORUS LEVEL 2021-04-12 10:24:00 Prieto, Bhargav Stewart [facility] IONIZED CALCIUM 2021-04-12 10:24:00 Prieto, Christa Terry [facility] ESTIMATED GFR 2021-04-12 10:24:00 [facility] POC GLUCOSE 2021-04-12 02:13:00 ThampForest patel [facility] Stephane IONIZED CALCIUM 2021-04-11 23:42:00 Prieto, Bhargav Stewart [facility] POC GLUCOSE 2021-04-11 23:00:00 Thampoe Basvirgil [facility] Stephane POC GLUCOSE 2021-04-11 18:41:00 ThampoeForest [facility] Stephane XR CHEST 1 VW PORTABLE 2021-04-11 14:29:00 [facility], [facility] POC GLUCOSE 2021-04-11 13:12:00 ThaForest lopez [facility] Stephane BASIC METABOLIC PANEL 2021-04-11 11:33:00 [facility] HC COMPLETE BLD COUNT 2021-04-11 11:33:00 Prieto, [facility] W/AUTO DIFF MAGNESIUM LEVEL 2021-04-11 11:33:00 Prieto, Millstonesuzie Stewart [facility] PHOSPHORUS LEVEL 2021-04-11 11:33:00 Prieto, Bhargav Stewart [facility] IONIZED CALCIUM 2021-04-11 11:33:00 Prieto, Bhargav Stewart [facility] ESTIMATED GFR 2021-04-11 11:33:00 [facility] POC GLUCOSE 2021-04-11 01:24:00 Thampoe Basvirgil [facility] Stephane XR CHEST 1 VW PORTABLE 2021-04-10 22:47[facility] 2021-04-10 21:28:34 [facility] POC GLUCOSE 2021-04-10 21:17:00 ThaForest lopez Ho spital Stephane COMPREHENSIVE METABOLIC 2021-04-10 20:51:00 Marquis [facility] PANEL HC COMPLETE BLD COUNT 2021-04-10 20:51:00 Marquis [facility] W/AUTO DIFF MAGNESIUM LEVEL 2021-04-10 20:51:00 RobertSegun Ho spital PHOSPHORUS LEVEL 2021-04-10 20:51:00 Segun Jones H ospital ESTIMATED GFR 2021-04-10 20:51:00 Segun Jones Ho spital IONIZED CALCIUM 2021-04-10 20:51:00 Segun Jones Ho spital POC GLUCOSE 2021-04-10 17:56:00 ThaForest lopez Ho spital Stephane POC GLUCOSE 2021-04-10 13:36:00 Forest Mcmahon Ho spital Stephane XR CHEST 1 VW PORTABLE 2021-04-10 10:48:[address] [facility] BASIC METABOLIC PANEL 2021-04-10 09:16:00 Gregorioak [facility] HC COMPLETE BLD COUNT 2021-04-10 09:16:00 Gregorioak [facility] W/AUTO DIFF Vedasto MAGNESIUM LEVEL 2021-04-10 09:16:00 Gregorioak [facility] PHOSPHORUS LEVEL 2021-04-10 09:16:00 Gregorioak [facility] IONIZED CALCIUM 2021-04-10 09:16:00 Gregorioak [facility] PROTHROMBIN TIME WITH INR 2021-04-10 09:16:00 [facility] 2021-04-10 09:16:00 Janak Rose [facility] ANTIGEN ESTIMATED GFR 2021-04-10 09:16:00 [facility]OC [facility]SE 2021-04-10 07:02:00 Thampoe, Basti [facility] Stephane POC GLUCOSE 2021-04-10 02:06:00 Thampoe, Basti [facility] Stephane POC GLUCOSE 2021-04-09 21:36:00 Thampoe, Basti [facility] Stephane POC GLUCOSE 2021-04-09 17:39:00 Thampoe, Basti [facility] Stephane POC GLUCOSE 2021-04-09 13:34:00 Thampoe, Basti [facility] Stephane XR CHEST 1 VW PORTABLE 2021-04-09 10:39:00 Dwain Morejon [facility] BASIC METABOLIC PANEL 2021-04-09 09:29:00 Dwain Morejon [facility] HC COMPLETE BLD COUNT 2021-04-09 09:29:00 Gregorioak [facility] W/AUTO DIFF [facility] MAGNESIUM LEVEL 2021-04-09 09:29:00 Deborah [facility] PHOSPHORUS LEVEL 2021-04-09 09:29:00 Deborah [facility] IONIZED CALCIUM 2021-04-09 09:29:00 Deborah [facility] PROTHROMBIN TIME WITH INR 2021-04-09 09:29:00 Ann Cabrera [facility] ESTIMATED GFR 2021-04-09 09:29:00 Dwain Morejon [facility] POC GLUCOSE 2021-04-09 01:22:00 Thampoe, Forest [facility] Stephane POC GLUCOSE 2021-04-08 22:43:00 Thampoe, Basti [facility] Stephane POC GLUCOSE 2021-04-08 18:04:00 Thampoe, Basti [facility] Stephane POC GLUCOSE 2021-04-08 13:35:00 Forest Mcmahon Ho spital Stephane XR CHEST 1 VW PORTABLE 2021-04-08 11:26:37 Dwain Morejon [facility] ZZCOVID-19 ANTI-SPIKE IGG 2021-04-08 08:18:00 Pedrito Lindsey [facility] ANTIBODY TITER Rambo ZZCOVID-19 SEROLOGY 2021-04-08 08:18:00 Pedrito Lindsey [facility] PATIENT SURVEILLANCE Rambo BASIC METABOLIC PANEL 2021-04-08 08:18:00 [facility] HC COMPLETE BLD COUNT 2021-04-08 08:18:00 [facility] W/AUTO DIFF MAGNESIUM LEVEL 2021-04-08 08:18:00 Cezar Davis Ho spital PHOSPHORUS LEVEL 2021-04-08 08:18:00 Cezar Davis H ospital IONIZED CALCIUM 2021-04-08 08:18:00 Cezar Davis Ho spital ESTIMATED GFR 2021-04-08 08:18:00 Cezar Davis Ho spital SMEAR REVIEW 2021-04-08 08:18:00 Cezar Davis Ho spital POC GLUCOSE 2021-04-08 05:34:00 ThaForest lopez Ho spital Stephane TRANSFUSE RED BLOOD CELLS 2021-04-08 04:30:00 [facility] HEMOGLOBIN & HEMATOCRIT 2021-04-08 03:31:00 Cezar Davis [facility] SMEAR REVIEW 2021-04-08 03:31:00 Cezar Davis Ho spital POC GLUCOSE 2021-04-08 01:36:00 ThaForest lopez Ho spital Stephane POC GLUCOSE 2021-04-07 23:21:00 Forest Mcmahon Ho spital Stephane HC COMPLETE BLD COUNT 2021-04-07 20:24:00 Keira Valdez [facility] W/AUTO DIFF Ginny Marta PHOSPHORUS LEVEL 2021-04-07 20:24:00 Mert Mae Si H ospital IONIZED CALCIUM 2021-04-07 20:24:00 Mert Mae Si spital BASIC METABOLIC PANEL 2021-04-07 20:24:00 Mert Mae Si [facility] MAGNESIUM LEVEL 2021-04-07 20:24:00 Mert Mae Si Ho spital ESTIMATED GFR 2021-04-07 20:24:00 Mert Mae Si Ho spital POC GLUCOSE 2021-04-07 20:11:00 ThampoeForest [facility] Stephane POC GLUCOSE 2021-04-07 18:20:00 Thampoe, Basvirgil [facility] Stephane POC GLUCOSE 2021-04-07 17:22:00 Thampoe, Forest Torres Ho spital Stephane IONIZED CALCIUM 2021-04-07 14:34:00 William Enriquez H ospital POC GLUCOSE 2021-04-07 14:25:00 ThampoeForest Ho spital Stephane POC GLUCOSE 2021-04-07 12:09:00 ThaForest lopez Ho spital Stephane ARTERIAL BLOOD GAS 2021-04-07 11:59:00 [facility]ONIZED CALCIUM, ARTERIAL 2021-04-07 11:59:00 William Enriquez [facility] BASIC METABOLIC PANEL 2021-04-07 11:58:00 Zoe [facility] HC COMPLETE BLD COUNT 2021-04-07 11:58:00 Zoe [facility] W/AUTO DIFF MAGNESIUM LEVEL 2021-04-07 11:58:00 William Enriquez ospital PROTHROMBIN TIME WITH INR 2021-04-07 11:58:00 William Enriquez [facility] ESTIMATED GFR 2021-04-07 11:58:00 William Enriquez ospital SMEAR REVIEW 2021-04-07 11:58:00 William Enriquez ospital POC GLUCOSE 2021-04-07 11:13:00 Forest Mcmahon spital Stephane XR CHEST 1 VW PORTABLE 2021-04-07 11:07:41 Jean-Pierre, Dwain [facility] POC GLUCOSE 2021-04-07 10:08:00 Forest Mcmahon Ho spital Stephane POC GLUCOSE 2021-04-07 09:21:00 Forest Mcmahon spital Stephane TRANSFUSE RED BLOOD CELLS 2021-04-07 09:15:00 Zoe [facility] PREPARE RBC 2021-04-07 09:09:00 William Enriquez [facility] H ospital POC GLUCOSE 2021-04-07 08:07:00 ThaForest lopez Ho spital Stephane BASIC METABOLIC PANEL 2021-04-07 08:06:00 Dwain Morejon [facility] HC COMPLETE BLD COUNT 2021-04-07 08:06:00 Zoe [facility] W/AUTO DIFF ARTERIAL BLOOD GAS 2021-04-07 08:06:[address] [facility] MAGNESIUM LEVEL 2021-04-07 08:06:00 Zoe [facility] ospital PHOSPHORUS LEVEL 2021-04-07 08:06:00 Zoe [facility] ESTIMATED GFR 2021-04-07 08:06:00 Jean-Pierre [facility] IONIZED CALCIUM, ARTERIAL 2021-04-07 08:06:00 William Enriquez [facility] POC GLUCOSE 2021-04-07 07:01:00 Forest Mcmahon spital Stephane POC GLUCOSE 2021-04-07 05:58:00 Forest Mcmahon spital Stephane ARTERIAL BLOOD GAS 2021-04-07 04:53:[address] [facility] POC GLUCOSE 2021-04-07 04:43:00 Forest Mcmahon spital Stephane HEMOGLOBIN & HEMATOCRIT 2021-04-07 04:19:00 William Enriquez [facility] BASIC METABOLIC PANEL 2021-04-07 04:19:00 Zoe [facility] MAGNESIUM LEVEL 2021-04-07 04:19:00 Zoe [facility] ospital PHOSPHORUS LEVEL 2021-04-07 04:19:00 William Enriquez [facility] IONIZED CALCIUM 2021-04-07 04:19:00 William Enriquez [facility] ospital ESTIMATED GFR 2021-04-07 04:19:00 William Enriquez [facility] ospital POC GLUCOSE 2021-04-07 03:29:00 ThaForest lopez Ho spital Stephane ARTERIAL BLOOD GAS 2021-04-07 02:52:00 [facility] POC GLUCOSE 2021-04-07 02:31:00 Thampoe, Forest [facility] Stephane POC GLUCOSE 2021-04-07 01:30:00 Thalorettaoe, Forest Torres Ho spital Stephane XR ABDOMEN 1 PORTABLE 2021-04-06 23:09:04 [facility] XR CHEST 1 VW PORTABLE 2021-04-06 23:08:10 [facility] 12-LEAD 2021-04-06 23:00:52 Linda Nolan Ho spital PROTHROMBIN TIME WITH INR 2021-04-06 22:37:00 [facility] THROMBOPLASTIN 2021-04-06 22:37:00 Dwain Morejon [facility] TIME (PTT) POC GLUCOSE 2021-04-06 22:35:00 ThaForest lopez Ho spital Stephane ARTERIAL BLOOD GAS 2021-04-06 22:33:00 Dwain Morejon [facility] IONIZED CALCIUM, ARTERIAL 2021-04-06 22:33:00 Dwain Morejon [facility] BASIC METABOLIC PANEL 2021-04-06 22:32:00 Dwain Morejon [facility] HC COMPLETE BLD COUNT 2021-04-06 22:32:00 Dwain Morejon [facility] W/AUTO DIFF MAGNESIUM LEVEL 2021-04-06 22:32:00 Dwain Morejon [facility] PHOSPHORUS LEVEL 2021-04-06 22:32:00 Dwain Morejon [facility] ESTIMATED GFR 2021-04-06 22:32:00 Dwain Morejon [facility] ACTIVATED CLOTTING TIME 2021-04-06 21:51:00 [facility], [facility] Stephane POC BLOOD GAS, ARTERIAL 2021-04-06 21:33:00 [facility]ane TRANSFUSE PLATELET 2021-04-06 21:28:00 Pedrito Espinoza [facility] PHERESIS TRANSFUSE FRESH FROZEN 2021-04-06 21:06:00 Pedrito Espinoza [facility] PLASMA ACTIVATED CLOTTING TIME 2021-04-06 21:01:00 [facility], [facility] POC BLOOD GAS, ARTERIAL 2021-04-06 20:50:00 [facility] AND [facility] TRANSFUSE RED BLOOD CELLS 2021-04-06 20:41:00 Pedrito Espinoza [facility] PLATELET COUNT 2021-04-06 20:38:00 Mejia, [facility] Ho spital PROTHROMBIN TIME WITH INR 2021-04-06 20:38:00 Mejia, [facility] FIBRINOGEN 2021-04-06 20:38:00 [facility], [facility] spital PARTIAL THROMBOPLASTIN 2021-04-06 20:38:00 [facility], [facility] TIME (PTT) ACTIVATED CLOTTING TIME 2021-04-06 20:31:00 [facility] Stephane ACTIVATED CLOTTING TIME 2021-04-06 20:01:00 [facility] POC BLOOD GAS, ARTERIAL 2021-04-06 19:59:00 [facility], [facility] ACTIVATED CLOTTING TIME 2021-04-06 19:32:00 [facility] BLOOD GAS, ARTERIAL 2021-04-06 19:29:00 [facility] AND [facility] TRANSFUSE RED BLOOD CELLS 2021-04-06 19:19:00 Pedrito Espinoza [facility] ARTERIAL BLOOD GAS 2021-04-06 19:03:00 Mejia, [facility] HEMOGLOBIN, SYRINGE 2021-04-06 19:03:00 [facility] ACTIVATED CLOTTING TIME 2021-04-06 19:02:00 [facility] Stephane POC BLOOD GAS, ARTERIAL 2021-04-06 18:59:00 [facility] POC BLOOD GAS, ARTERIAL 2021-04-06 18:31:00 [facility] AND [facility] TRANSFUSE RED BLOOD CELLS 2021-04-06 18:04:00 Pedrito Espinoza [facility] POC BLOOD GAS, ARTERIAL 2021-04-06 18:01:00 [facility] AND [facility] ACTIVATED CLOTTING TIME 2021-04-06 17:50:00 [facility] POC BLOOD GAS, ARTERIAL 2021-04-06 16:13:00 [facility] AND [facility] ACTIVATED CLOTTING TIME 2021-04-06 16:01:00 [facility] Stephane ANESTHESIA MARIE 2021-04-06 15:37:02 NolanRosario Ho spital Willy PA CATHETER 2021-04-06 15:36:27 NolanRosario Ho spital Willy CENTRAL LINE 2021-04-06 15:35:30 NolanRosario Ho spital Willy CENTRAL LINE 2021-04-06 15:34:57 NolanRosario Ho spital Willy POC BLOOD GAS, ARTERIAL 2021-04-06 14:59:00 [facility] AND LYBRAD Stephane ARTERIAL LINE 2021-04-06 14:50:20 Pedrito Espinoza H ospital TRANSFUSE RED BLOOD CELLS 2021-04-06 14:38:00 Pedrito Espinoza Josseline [facility] DC AN ELECTIVE 2021-04-06 14:25:00 Pedrito Espinoza H ospital ENDOTRACHEAL AIRWAY CABG, WITH ENDOSCOPIC VEIN 2021-04-06 14:07:00 Dwain Morejon in [facility] HARVESTING POC PANEL 2021-04-06 12:12:00 Dwain Morejon [facility] CABG, WITH ENDOSCOPIC VEIN 2021-04-03 13:30:00 Dwain Morejon in [facility] HARVESTING URINE CULTURE 2021-03-25 17:10:00 [facility] XR CHEST 2 VW 2021-03-25 16:48:19 [facility] TYPE AND SCREEN 2021-03-25 16:00:00 [facility] HC COMPLETE BLD COUNT 2021-03-25 16:00:00 [facility] W/AUTO DIFF BASIC METABOLIC PANEL 2021-03-25 16:00:00 [facility] PROTHROMBIN TIME WITH INR 2021-03-25 16:00:00 [facility] PARTIAL THROMBOPLASTIN 2021-03-25 16:00:00 [facility] TIME (PTT) URINALYSIS SCREEN AND 2021-03-25 16:00:00 [facility] MICROSCOPY, WITH REFLEX TO CULTURE D-DIMER 2021-03-25 16:00:00 Dwain Morejon [facility] ESTIMATED GFR 2021-03-25 16:00:00 [facility] PREPARE RBC 2021-03-25 16:00:00 [facility] PREPARE FRESH FROZEN 2021-03-25 16:00:00 [facility] PLASMA PREPARE PLATELET PHERESIS 2021-03-25 16:00:00 Cintia Coats [facility] COVID-19 QUALITATIVE 2021-03-03 15:16:00 Jayant Arambula [facility] RT-PCR COVID-19 QUALITATIVE 2021-02-19 19:44:00 Dwain Morejon [facility] RT-PCR XR CHEST 2 VW 2021-02-19 19:34:25 Dwain Morejon [facility] URINE CULTURE 2021-02-19 19:24:00 Dwain Morejon [facility] ECG PRE/POST OP 2021-02-19 18:49:51 Dwain Morejon [facility] URINALYSIS SCREEN AND 2021-02-19 18:49:00 Dwain Morejon [facility] MICROSCOPY, WITH REFLEX TO CULTURE MRSA PCR 2021-02-19 18:48:00 Dwain Morejon [facility] LIPID PANEL 2021-02-19 18:43:00 Jean-Pierre [facility] HEMOGLOBIN A1C 2021-02-19 18:43:00 Jean-Pierre [facility] PARTIAL THROMBOPLASTIN 2021-02-19 18:43:00 Jean-Pierre Dwain [facility] TIME (PTT) PROTHROMBIN TIME WITH INR 2021-02-19 18:43:00 [facility] COMPLETE BLD COUNT 2021-02-19 18:43:00 [facility]O DIFF TYPE AND SCREEN 2021-02-19 18:43:00 Dwain Morejon [facility] COMPREHENSIVE METABOLIC 2021-02-19 18:43:00 Jean-Pierre [facility] PANEL ESTIMATED GFR 2021-02-19 18:43:00 Jean-Pierre [facility] MAGNESIUM LEVEL 2021-02-19 18:43:00 Jean-Pierre [facility] ARTERIAL BLOOD GAS 2021-02-19 18:24:00 [facility] CAROTID DUPLEX 2021-02-02 19:14:00 Dwain Morejon [facility] BILATERAL CV CATH EXTERNAL STUDY 2021-01-08 20:39:13 Dwain Morejon [facility] POC GLUCOSE 2020-08-07 20:42:00 [facility] Mc[facility] HEPATITIS B SURFACE AB, 2020-08-07 17:32:00 Milton [facility] QUANTITATIVE HEPATITIS B SURFACE 2020-08-07 17:32:00 Milton [facility] ANTIGEN POC GLUCOSE 2020-08-07 16:08:00 [facility] POC GLUCOSE 2020-08-07 12:56:00 Janak Skinner Shada HC COMPLETE BLD COUNT 2020-08-07 09:03:00 [facility] BASIC METABOLIC PANEL 2020-08-07 09:03:00 [facility] ESTIMATED GFR 2020-08-07 09:03:00 Nolan [facility] H ospital LACTIC ACID LEVEL, SEPSIS 2020-08-07 03:00:00 [facility] NOW AND REPEAT 2X EVERY 3 HOURS POC GLUCOSE 2020-08-07 01:36:00 Janak Skinner sarah Mcclellan LACTIC ACID LEVEL, SEPSIS 2020-08-07 00:03:00 [facility] - NOW AND REPEAT 2X EVERY 3 HOURS POC GLUCOSE 2020-08-06 23:14:00 Janak Skinner sarah Mcclellan COVID-19 QUALITATIVE 2020-08-06 22:43:00 [facility] ED PRELIMINARY 2020-08-06 18:13:40 [facility] INTERPRETATION ECG 12-LEAD 2020-08-06 18:01:17 [facility] ospital XR CHEST 1 VW PORTABLE 2020-08-06 18:00:31 [facility] BLOOD CULTURE, AEROBIC & 2020-08-06 17:41:00 [facility] C[facility], AEROBIC & 2020-08-06 17:20:00 [facility] ANA[facility]OBIC LACTIC ACID LEVEL, SEPSIS 2020-08-06 17:17:00 [facility] - NOW AND REPEAT 2X EVERY 3 HOURS COMPREHENSIVE METABOLIC 2020-08-06 17:17:00 [facility] PAN[facility] HC COMPLETE BLD COUNT 2020-08-06 17:17:00 [facility] W/AUTO DIFF ESTIMATED GFR 2020-08-06 17:17:00 Nolan, Boi Madyson [facility] HEAD WO CONTRAST 2020-08-06 16:38:40 Nolan, Norman Coughlin [facility] POC GLUCOSE 2020-07-19 16:46:00 Moosavi, Janak [facility] spital Shadaab POC GLUCOSE 2020-07-19 12:27:00 Moosavi, Janak [facility] sp[facility] Shadaab BASIC METABOLIC PANEL 2020-07-19 11:10:00 Milton, Janak Ather [facility] ESTIMATED GFR 2020-07-19 11:10:00 Milton, Janak [facility] POC GLUCOSE 2020-07-19 01:53:00 Moosavi, Janak [facility] spital Shadaab POC GLUCOSE 2020-07-18 22:56:00 Moosavi, Janak [facility] spital Shadaab POC GLUCOSE 2020-07-18 22:07:00 Moosavi, Janak [facility] sp[facility] Shadaab POC GLUCOSE 2020-07-18 17:40:00 Moosavi, Janak [facility] Shadaab XR CHEST 1 VW PORTABLE 2020-07-18 16:37:09 Milton, Janak Ather [facility] POC GLUCOSE 2020-07-18 12:54:00 Moosavi, Janak [facility] spital Shadaab TROPONIN 2020-07-18 04:05:00 AngelaStacy [facility] Delmer smith Lemus POC GLUCOSE 2020-07-18 01:55:00 Moosavi, Janak [facility] spital Shadaab TROPONIN 2020-07-17 23:08:00 AngelaStacy [facility] Delmer spital Lemus POC GLUCOSE 2020-07-17 21:33:00 Moosavi, Janak [facility] Ho spital Shadaab TROPONIN 2020-07-17 20:35:00 AngelaStacy [facility] Delmer smith Lemus ECG 12-LEAD 2020-07-17 18:59:06 Moosavi, Janak [facility] Ho spital Shadaab POC GLUCOSE 2020-07-17 16:49:00 Moosavi, Janak [facility] Ho spital Shadaab POC GLUCOSE 2020-07-17 12:39:00 Moosavi, Janak [facility] spital Shadaab BASIC METABOLIC PANEL 2020-07-17 09:54:00 [facility] HC COMPLETE BLD COUNT 2020-07-17 09:54:00 [facility] W/AUTO DIFF ESTIMATED GFR 2020-07-17 09:54:00 [facility] POC GLUCOSE 2020-07-17 01:12:00 Moosavi, Janak [facility] Ho spital Shadaab POC GLUCOSE 2020-07-16 22:31:00 Moosavi, Janak [facility] spital Shadaab POC GLUCOSE 2020-07-16 18:43:00 Moosavi, Janak Elizondoist Ho spital Shadaab DC AN ELECTIVE 2020-07-16 17:47:21 Micheline Pruett [facility] ENDOTRACHEAL AIRWAY INSERTION, CATHETER, 2020-07-16 17:15:00 [facility] DIALYSIS, PERITONEAL, LAPAROSCOPIC LYSIS, ADHESIONS, 2020-07-16 17:15:00 [facility] LAPAROSCOPIC POC PANEL 2020-07-16 17:01:00 Moosavi, Janak [facility] spital Shadaab POC GLUCOSE 2020-07-16 13:11:00 Moosavi, Janak [facility] spital Shadaab POC GLUCOSE 2020-07-16 01:59:00 Moosavi, Janak [facility] Ho spital Shadaab POC GLUCOSE 2020-07-15 22:42:00 Moosavi, Janak [facility] spital Shadaab POC GLUCOSE 2020-07-15 16:29:00 Moosavi, Janak [facility] Ho spital Shadaab POC GLUCOSE 2020-07-15 13:15:00 Moosavi, Janak [facility] Ho spital Shadaab BASIC METABOLIC PANEL 2020-07-15 08:40:00 [facility] ESTIMATED GFR 2020-07-15 08:40:00 [facility] POC GLUCOSE 2020-07-15 01:23:00 Moosavi, Janak [facility] Ho spital Shadaab POC GLUCOSE 2020-07-14 20:46:00 MoJanka evangelista Ho spital Shadaab POC GLUCOSE 2020-07-14 18:29:00 Janak Skinner Ho spital Shadaab IR TUNNELED DIALYSIS 2020-07-14 16:40:34 Milton [facility] CATHETER PLACEMENT US GUIDED VASCULAR ACCESS 2020-07-14 16:31:38 Milton [facility] TTE COMPLETE, WO CONTRAST, 2020-07-14 15:20:13 [facility] W DOPPLER ([id number]) POC GLUCOSE 2020-07-14 13:18:00 Janak Skinner spital Shadaab PROTHROMBIN TIME WITH INR 2020-07-14 13:04:00 Milton [facility] ECG 12-LEAD 2020-07-14 10:47:20 [facility] ECG 12-LEAD 2020-07-14 10:46:38 [facility]ital HEMOGLOBIN & HEMATOCRIT 2020-07-14 10:25:00 [facility] BASIC METABOLIC PANEL 2020-07-14 10:25:00 [facility] ESTIMATED GFR 2020-07-14 10:25:00 [facility] POC GLUCOSE 2020-07-14 02:05:00 [facility] POC GLUCOSE 2020-07-13 21:33:00 [facility] HEPATITIS C ANTIBODY 2020-07-13 20:56:00 Milton [facility] HC COMPLETE BLD COUNT 2020-07-13 17:53:00 Milton [facility] W/AUTO DIFF HEPATITIS B SURFACE 2020-07-13 17:53:00 Milton [facility] ANTIGEN HEPATITIS B SURFACE 2020-07-13 17:53:[facility] B CORE ANTIBODY 2020-07-13 17:53:00 Milton, [facility] TOTAL SMEAR REVIEW 2020-07-13 17:53:00 [place], [facility] POC GLUCOSE 2020-07-13 16:34:00 Moosavi, Janak [facility] POC GLUCOSE 2020-07-13 13:42:00 Moosavi, [facility] [place] BASIC METABOLIC PANEL 2020-07-13 08:50:00 [place], [facility] HC COMPLETE BLD COUNT 2020-07-13 08:50:00 [facility], [facility] W/AUTO DIFF ESTIMATED GFR 2020-07-13 08:50:00 [facility], [facility] POC GLUCOSE 2020-07-13 02:26:00 Moosavi, Janak [facility] POC GLUCOSE 2020-07-13 01:09:00 Moosavi, [facility] [place] POC GLUCOSE 2020-07-12 22:11:00 Moosavi, [facility] Ho spital [place]ada[place] PARATHYROID HORMONE 2020-07-12 17:31:00 [facility] URIC ACID LEVEL 2020-07-12 17:31:00 Milton, [facility] POC GLUCOSE 2020-07-12 16:47:00 Moosavi, Janak [facility] POC GLUCOSE 2020-07-12 12:35:00 Moosavi, Janak [facility] HC COMPLETE BLD COUNT 2020-07-12 09:33:00 Manuela Braga [facility] W/AUTO DIFF Sivan COMPREHENSIVE METABOLIC 2020-07-12 09:33:00 [place] [facility] PANEL Sivan THYROID STIMULATING 2020-07-12 09:33:00 Jeff Sweet [facility] HORMONE ESTIMATED GFR 2020-07-12 09:33:00 Manuela Braga H ospital Sivan TROPONIN 2020-07-12 02:45:00 Lakhwinder Vásquez Ho spital US RENAL 2020-07-12 01:56:43 [facility], [facility] POC GLUCOSE 2020-07-12 01:15:00 Motonja [facility] COVID-19 QUALITATIVE 2020-07-12 00:24:00 Manuela Braga [facility] RT-PCR Sivan COMPLETE BLD COUNT 2020-07-12 00:24:00 [facility] W/AUTO DIFF FERRITIN LEVEL 2020-07-12 00:24:00 [facility], [facility] URIC ACID LEVEL 2020-07-12 00:24:00 [facility] TOTAL IRON BINDING 2020-07-12 00:24:00 [facility] CAPACITY PARATHYROID HORMONE 2020-07-12 00:24:00 [facility], [facility] PROTEIN, URINE, RANDOM 2020-07-12 00:24:00 [facility] CREATININE LEVEL, URINE, 2020-07-12 00:24:00 [facility] RANDOM VITAMIN D 25 HYDROXY LEVEL 2020-07-12 00:24:00 [facility], [facility] URINE PROTEIN 2020-07-12 00:24:00 [facility], [facility] ELECTROPHORESIS, RANDOM SERUM ELECTROPHORESIS 2020-07-12 00:24:00 [facility] KAPPA LAMBDA FREE LIGHT 2020-07-12 00:24:00 [facility] CHAIN WITH RATIO URINE PROTEIN/CREATININE 2020-07-12 00:23:00 [facility] RATIO, RANDOM TROPONIN 2020-07-11 23:42:00 Lakhwinder Vásquez spital XR CHEST 1 VW PORTABLE 2020-07-11 22:36:14 [facility] ECG 12-LEAD 2020-07-11 22:15:53 Motonja Janakhector Elizondoist Ho spital Shadaab ECG 12-LEAD 2020-07-11 22:14:36 Motonja [facility] [facility] Ho sp[facility] Shada[facility] ECG 12-LEAD 2020-07-11 22:13:55 Ritu Janakhector Torres Ho spital [place]ada[facility] ECG ED PRELIMINARY 2020-07-11 21:39:29 Manuela Braga [facility] INTERPRETATION Sivan HC COMPLETE BLD COUNT 2020-07-11 21:36:00 Maria Luz [facility] W/AUTO DIFF Sivan COMPREHENSIVE METABOLIC 2020-07-11 21:36:00 Manuela Braga [facility] PANEL Sivan B NATRIURETIC PEPTIDE 2020-07-11 21:36:00 [facility] Sivan ESTIMATED GFR 2020-07-11 21:36:00 Manuela Braga H ospital Sivan TROPONIN 2020-07-11 20:45:00 Lakhwinder Vásquez spital ECG 12-LEAD 2020-07-11 20:34:56 Lakhwinder Vásqueztal Plan of Care Planned Activity Planned Date [...] (2 - Td or Tdap)] Future Scheduled 2022-08-[address] [facility] [address] [facility] measurement Medical Center (procedure) [code = 24115704] Future Scheduled 2022-02-[address] [facility] Test 00:00:00 (12+) [code = Medical Center DEPRESSION SCREENING (12+)] Future Scheduled 2022-02-28 FALLS RISK SCREENING [facility] Test 00:00:00 [code = FALLS RISK Medical C enter SCREENING] Future Scheduled 2022-02-12 65+ [facility]OCO[facility]AL [facility] Test 09:40:19 VACCINE (1 - PCV) [code = 65+ PNEUMOCOCCAL VACCINE (1 - PCV)] Future Scheduled 2022-02-12 SHINGLES VACCINES (1 Met [facility] Test 09:40:19 of 2) [code = SHINGLES VACCINES (1 of 2)] Future Scheduled 2022-02-12 COVID-19 VACCINE (3 - [facility] Test 09:40:19 Booster for Pfizer series) [code = COVID-19 VACCINE (3 - Booster for Pfizer series)] Future Scheduled 2022-02-12 INFLUENZA VACCINE [facility] Test 09:40:19 [code = INFLUENZA VACCINE] Future Scheduled 2022-02-12 65+ [facility]OCOCCAL [facility] Test 09:40:19 VACCINE (1 - PCV) [code = 65+ PNEUMOCOCCAL VACCINE (1 - PCV)] Future Scheduled 2022-02-12 SHINGLES VACCINES (1 Met [facility] Test 09:40:19 of 2) [code = SHINGLES VACCINES (1 of 2)] Future Scheduled 2022-02-12 COVID-19 VACCINE (3 - [facility] Test 09:40:19 Booster for Pfizer series) [code = COVID-19 VACCINE (3 - Booster for Pfizer series)] Future Scheduled 2022-02-12 INFLUENZA VACCINE [facility] Test 09:40:19 [code = INFLUENZA VACCINE] Future Scheduled 2021-12-21 HEPATITIS B VACCINES Met [facility] Test 11:19:28 (1 of 3 - 3-dose series) [code = HEPATITIS B VACCINES (1 of 3 - 3-dose series)] Future Scheduled 2021-12-21 65+ [facility] 11:19:28 VACCINE (1 - PCV) [code = 65+ PNEUMOCOCCAL VACCINE (1 - PCV)] Future Scheduled 2021-12-21 SHINGLES VACCINES (1 Met [facility] Test 11:19:28 of 2) [code = SHINGLES VACCINES (1 of 2)] Future Scheduled 2021-12-21 COVID-19 VACCINE (3 - [facility] Test 11:19:28 Booster for Pfizer series) [code = COVID-19 VACCINE (3 - Booster for Pfizer series)] Future Scheduled 2021-12-21 INFLUENZA VACCINE [facility] Test 11:19:28 [code = INFLUENZA VACCINE] Future Scheduled 2021-12-21 HEPATITIS B VACCINES Met [facility] Test 11:19:28 (1 of 3 - 3-dose series) [code = HEPATITIS B VACCINES (1 of 3 - 3-dose series)] Future Scheduled 2021-12-21 65+ [facility] 11:19:28 VACCINE (1 - PCV) [code = 65+ PNEUMOCOCCAL VACCINE (1 - PCV)] Future Scheduled 2021-12-21 SHINGLES VACCINES (1 Met [facility] Test 11:19:28 of 2) [code = SHINGLES VACCINES (1 of 2)] Future Scheduled 2021-12-21 COVID-19 VACCINE (3 - [facility] Test 11:19:28 Booster for Pfizer series) [code = COVID-19 VACCINE (3 - Booster for Pfizer series)] Future Scheduled 2021-12-21 INFLUENZA VACCINE [facility] Test 11:19:28 [code = INFLUENZA VACCINE] Future Scheduled 2021-12-21 HEPATITIS B VACCINES Met [facility] Test 11:19:28 (1 of 3 - 3-dose series) [code = HEPATITIS B VACCINES (1 of 3 - 3-dose series)] Future Scheduled 2021-12-21 65+ PNEUMOCOCCAL [facility] Hospital Test 11:19:28 VACCINE (1 - PCV) [code = 65+ PNEUMOCOCCAL VACCINE (1 - PCV)] Future Scheduled 2021-12-21 SHINGLES VACCINES (1 Met [facility] Test 11:19:28 of 2) [code = SHINGLES VACCINES (1 of 2)] Future Scheduled 2021-12-21 COVID-19 VACCINE (3 - [facility] Test 11:19:28 Booster for Pfizer series) [code = COVID-19 VACCINE (3 - Booster for Pfizer series)] Future Scheduled 2021-12-21 INFLUENZA VACCINE [facility] Test 11:19:28 [code = INFLUENZA VACCINE] Future Scheduled 2021-12-21 HEPATITIS B VACCINES Met [facility] Test 11:19:28 (1 of 3 - 3-dose series) [code = HEPATITIS B VACCINES (1 of 3 - 3-dose series)] Future Scheduled 2021-12-21 65+ [facility] 11:19:28 VACCINE (1 - PCV) [code = 65+ PNEUMOCOCCAL VACCINE (1 - PCV)] Future Scheduled 2021-12-21 SHINGLES VACCINES (1 Met [facility] Test 11:19:28 of 2) [code = SHINGLES VACCINES (1 of 2)] Future Scheduled 2021-12-21 COVID-19 VACCINE (3 - [facility] Test 11:19:28 Booster for Pfizer series) [code = COVID-19 VACCINE (3 - Booster for Pfizer series)] Future Scheduled 2021-12-21 INFLUENZA VACCINE [facility] Test 11:19:28 [code = INFLUENZA VACCINE] Future Scheduled 2021-12-10 HEPATITIS B VACCINES Met [facility] Test 15:42:41 (1 of 3 - 3-dose series) [code = HEPATITIS B VACCINES (1 of 3 - 3-dose series)] Future Scheduled 2021-12-10 65+ PNEUMOCOCCAL [facility] Test 15:42:41 VACCINE (1 - PCV) [code = 65+ PNEUMOCOCCAL VACCINE (1 - PCV)] Future Scheduled 2021-12-10 SHINGLES VACCINES (1 Met [facility] Test 15:42:41 of 2) [code = SHINGLES VACCINES (1 of 2)] Future Scheduled 2021-12-10 COVID-19 VACCINE (3 - [facility] Test 15:42:41 Booster for Pfizer series) [code = COVID-19 VACCINE (3 - Booster for Pfizer series)] Future Scheduled 2021-12-10 INFLUENZA VACCINE [facility] Test 15:42:41 [code = INFLUENZA VACCINE] Future Scheduled 2021-12-10 HEPATITIS B VACCINES Met [facility] Test 15:42:41 (1 of 3 - 3-dose series) [code = HEPATITIS B VACCINES (1 of 3 - 3-dose series)] Future Scheduled 2021-12-10 65+ [facility] 15:42:41 VACCINE (1 - PCV) [code = 65+ PNEUMOCOCCAL VACCINE (1 - PCV)] Future Scheduled 2021-12-10 SHINGLES VACCINES (1 Met [facility] Test 15:42:41 of 2) [code = SHINGLES VACCINES (1 of 2)] Future Scheduled 2021-12-10 COVID-19 VACCINE (3 - [facility] Test 15:42:41 Booster for Pfizer series) [code = COVID-19 VACCINE (3 - Booster for Pfizer series)] Future Scheduled 2021-12-10 INFLUENZA VACCINE [facility] Test 15:42:41 [code = INFLUENZA VACCINE] Future Scheduled 2021-12-10 HEPATITIS B VACCINES Met [facility] Test 15:42:41 (1 of 3 - 3-dose series) [code = HEPATITIS B VACCINES (1 of 3 - 3-dose series)] Future Scheduled 2021-12-10 65+ [facility] 15:42:41 VACCINE (1 - PCV) [code = 65+ PNEUMOCOCCAL VACCINE (1 - PCV)] Future Scheduled 2021-12-10 SHINGLES VACCINES (1 Met [facility] Test 15:42:41 of 2) [code = SHINGLES VACCINES (1 of 2)] Future Scheduled 2021-12-10 COVID-19 VACCINE (3 - [facility] Test 15:42:41 Booster for Pfizer series) [code = COVID-19 VACCINE (3 - Booster for Pfizer series)] Future Scheduled 2021-12-10 INFLUENZA VACCINE [facility] Test 15:42:41 [code = INFLUENZA VACCINE] Future Scheduled 2021-12-10 HEPATITIS B VACCINES Met [facility] Test 15:42:41 (1 of 3 - 3-dose series) [code = HEPATITIS B VACCINES (1 of 3 - 3-dose series)] Future Scheduled 2021-12-10 65+ P[facility]UMOCOCCAL [facility] Test 15:42:41 VACCINE (1 - PCV) [code = 65+ PNEUMOCOCCAL VACCINE (1 - PCV)] Future Scheduled 2021-12-10 SHINGLES VACCINES (1 Met [facility] Test 15:42:41 of 2) [code = SHINGLES VACCINES (1 of 2)] Future Scheduled 2021-12-10 COVID-19 VACCINE (3 - [facility] Test 15:42:41 Booster for Pfizer series) [code = COVID-19 VACCINE (3 - Booster for Pfizer series)] Future Scheduled 2021-12-10 INFLUENZA VACCINE [facility] Test 15:42:41 [code = INFLUENZA VACCINE] Future Scheduled 2021-11-13 HEPATITIS B VACCINES Met [facility] Test 12:46:56 (1 of 3 - 3-dose series) [code = HEPATITIS B VACCINES (1 of 3 - 3-dose series)] Future Scheduled 2021-11-13 65+ PNEUMOCOCCAL [facility] Test 12:46:56 VACCINE (1 - PCV) [code = 65+ PNEUMOCOCCAL VACCINE (1 - PCV)] Future Scheduled 2021-11-13 SHINGLES VACCINES (1 Met [facility] Test 12:46:56 of 2) [code = SHINGLES VACCINES (1 of 2)] Future Scheduled 2021-11-13 COVID-19 VACCINE (3 - [facility] Test 12:46:56 Booster for Pfizer series) [code = COVID-19 VACCINE (3 - Booster for Pfizer series)] Future Scheduled 2021-11-13 INFLUENZA VACCINE [facility] Test 12:46:56 [code = INFLUENZA VACCINE] [...] Cessation Counseling and Screening (12+)] Future Scheduled [address] [facility] Test 00:00:00 Counseling and Medical Cente r Screening (12+) [code = Tobacco Cessation Counseling and Screening (12+)] Future Scheduled [address] EYE EXAM [facility] Test 00:00:00 [code = DIABETIC EYE Medical Center EXAM] Future Scheduled [address] [facility]00 examination Medical Center (regime/therapy) [code = 134878904] Future Scheduled 1952 Urine screening for [facility] Test 00:00:00 protein (procedure) Medical Center [code = 645259930] Future Scheduled 1948 PNEUMOCOCCAL 65+ [facility] Test 00:00:00 (1 - PCV) [code = Medical Ce nter PNEUMOCOCCAL 65+ YRS (1 - PCV)] Future Scheduled 1942 COVID-19 VACCINE (#1) CH [...] DXA [facility] Test 00:00:00 SCAN] [facility] Center Future Scheduled 1942 DXA SCAN [code = DXA [facility] Test 00:00:00 SCAN] [facility] Center Future Scheduled 1942 DXA SCAN [code = DXA [facility] Test 00:00:00 SCAN] [facility] Future Scheduled 1942 DXA SCAN [code = DXA [facility] Test 00:00:00 SCAN] [facility] Future Scheduled 1942 DXA SCAN [code = DXA [facility] Test 00:00:00 SCAN] [facility] Future Scheduled 1942 DXA SCAN [code = DXA [facility] Test 00:00:00 SCAN] [facility] Center Future Scheduled 1942 DXA SCAN [code = DXA [facility] Test 00:00:00 SCAN] [facility] Center Future Scheduled 1942 DXA SCAN [code = DXA [facility] Test 00:00:00 SCAN] [facility] Center Encounters Start End Encounter Admission Attending Care Care Encounter Source Date/Time Date/Time Type Type Clinicians Facility Department ID 2021-10-21 Outpatient Carol[facility] [id number] Common 09:42:03 [facility] 2021-09-25 Outpatient Carol, [facility] [id number] Common 15:05:01 [facility] 2021-09-24 Outpatient Carol, [facility] [id number] Common 09:52:03 [facility] 2022-02-17 2022-03-05 [facility] [id number] [facility] 01:31:00 18:41:00 ИРИНА 2022-02-17 2022-03-05 [facility] Ирина Jaramillo [facility] [id number] 01:31:00 18:41:00 Encounter Ronak Shaw [facility] Brody Shipley [facility] 2022-02-17 2022-02-17 Travel [facility] [id number] [facility] 00[facility]00 [facility] 2021-12-17 2021-12-17 [facility] [id number] 00:00:00 00:00:00 Only [facility] 2021-12-17 2021-12-17 [facility] [id number] 00:00:00 00:00:00 Only [facility] 2021-11-29 2021-12-10 Inpatient ER [facility] [id number] [facility] 02:33:00 12:37:00 Med 2021-11-29 2021-12-10 [facility] [id number] 02:33:00 12:37:00 Encounter B [facility] 2021-11-29 2021-12-10 [facility] [id number] 02:33:00 12:37:00 Encounter [facility] 2021-11-29 2021-11-29 Outpatient [facility] [id number] [facility] 00:00:00 23:59:00 [facility] 2021-11-29 2021-11-29 Orders [facility] [id number] 00:00:00 00:00:00 [facility] 2021-11-29 2021-11-29 [facility] [id number] 00:00:00 00:00:00 [facility] 2021-10-28 2021-10-28 (TEL) STLMLC STLMLC [id number] Co mmon 00:00:00 00:00:00 Spirit - [facility] 2021-10-23 2021-10-23 OFFICE STLMLC STLMLC [id number] Co mmon 00:00:00 00:00:00 VISIT Spirit ESTAB PT - CHI LEVEL 4 [facility] 2021-10-23 2021-10-23 (MCR WELL) STLMLC STLMLC [id number] Common 00:00:00 00:00:00 Medicare Spiri t Wellness - [facility] 2021-09-24 2021-09-24 OFFICE STLMLC STLMLC [id number] Co mmon 00:00:00 00:00:00 VISIT NEW Spir it PT LEVEL 5 - [facility] 2021-06-02 2021-06-02 Office Jean-Pierre, 1.2.840.1 [id number] Methodi 13:45:00 13:48:12 Visit Dwain Montoya 51078.1.[address] 3.430.2.7 Hospit a .3.228834 l .8 2021-06-02 2021-06-02 Office Jean-Pierre, 1.2.840.1 [id number] Methodi 13:45:00 13:48:12 Visit Dwain Montoya 87602.1.[address] 3.430.2.7 Hospit a .3.587919 l .8 2021-06-02 2021-06-02 Travel 1.2.840.1 1.2.536.157 [id number] Methodi 00:00:00 00:00:[address] 3.430.2.7 0.2.7.3.698 Ho spita .3.763087 084.8 l .8 2021-06-02 2021-06-02 Travel 1.2.840.1 1.2.751.614 [id number] Methodi 00:00:00 00:00:[address] 3.430.2.7 0.2.7.3.698 Ho spita .3.990615 084.8 l .8 2021-05-26 2021-05-26 Telephone Jaqui, 1.2.840.1 [id number] Methodi 00:00:00 00:00:[address] 3.430.2.7 Hospit a .3.795438 l .8 2021-05-26 2021-05-26 Telephone Jaqui, 1.2.840.1 [id number] 2 [id number] Methodi 00:00:00 00:00:[address] 3.430.2.7 Hospit a .3.501689 l .8 2021-04-06 2021-04-16 [facility] Dwain Morejon 1.2.840.1 [id number] Methodi 05:25:00 15:55:00 Encounter Sumit Mejia H. 70396.1.1 802 [facility] Stephane 3.430.2.7 Hospita .3.218662 l .8 2021-04-06 2021-04-16 [facility] Dwain Morejon 1.2.840.1 [id number] Methodi 05:25:00 15:55:00 Encounter Sumit Mejia H. 58097.1.[address] [facility] Stephane 3.430.2.7 Hospita .3.025119 l .8 2021-04-06 2021-04-06 Anesthesia Rosario Nolan 1.2.840 .1 [id number] Methodi 08:08:00 16:38:00 Event Pedrito Espinoza 08575.1.[address] 3.430.2.7 Hospit a .3.830710 l .8 2021-04-06 2021-04-06 Anesthesia Rosario Nolan 1.2.840 .1 [id number] Methodi 08:08:00 16:38:00 Event Pedrito Espinoza 10496.1.[address] 3.430.2.7 Hospit a .3.793374 l .8 2021-04-06 2021-04-06 Surgery Jean-Pierre, 1.2.840.1 [id number] Methodi 07:30:00 12:00:00 Dwain Montoya 63229.1.[address] 3.430.2.7 Hospit a .3.600007 l .8 2021-04-06 2021-04-06 Surgery Jean-Pierre, 1.2.840.1 [id number] Methodi 07:30:00 12:00:00 Dwani Montoya [address] 3.430.2.7 Hospit a .3.847975 l .8 2021-04-06 2021-04-06 Travel 1.2.840.1 1.2.611.329 3411 [id number] Methodi 00:00:00 00:00:[address] 3.430.2.7 0.2.7.3.698 Ho spita .3.962924 084.8 l .8 2021-04-06 2021-04-06 Travel 1.2.840.1 1.2.975.046 5997 [id number] Methodi 00:00:00 00:00:[address] 3.430.2.7 0.2.7.3.698 Ho spita .3.361033 084.8 l .8 2021-03-30 2021-03-30 Orders Razo, 1.2.840.1 [id number] Methodi 00:00:00 00:00:00 Only Neelima Roman 44757.1.[address] 3.430.2.7 Hospit a .3.741670 l .8 2021-03-30 2021-03-30 Orders Razo, 1.2.840.1 [id number] Methodi 00:00:00 00:00:00 Only Neelima Roman 15182.1.[address] 3.430.2.7 Hospit a .3.947270 l .8 2021-03-27 2021-03-27 Orders Razo, 1.2.840.1 [id number] Methodi 00:00:00 00:00:00 Only Neelima Roman 06108.1.[address] 3.430.2.7 Hospit a .3.907634 l .8 2021-03-27 2021-03-27 Orders Razo, 1.2.840.1 [id number] Methodi 00:00:00 00:00:00 Only Neelima Roman 20198.1.[address] 3.430.2.7 Hospit a .3.019879 l .8 2021-03-25 2021-03-25 [facility] 1.2.840.1 [id number] Methodi 10:09:35 23:59:00 Aston Castillo 07120.1.[address] 3.430.2.7 Hospit a .3.129454 l .8 2021-03-25 2021-03-25 [facility] 1.2.840.1 [id number] 2 [id number] Methodi 10:09:35 23:59:00 Encounter Aston 23534.1.[address] 3.430.2.7 Hospit a .3.774000 l .8 2021-03-25 2021-03-25 Pre-Admiss Jean-Pierre, 1.2.840.1 [id number] Methodi 10:00:00 11:00:00 amos Montoya 43733.1.[address] Testing 3.430.2.7 Hospit a .3.803608 l .8 2021-03-25 2021-03-25 Pre-Admiss Jean-Pierre, 1.2.840.1 [id number] Methodi 10:00:00 11:00:00 ion Dwain oMntoya 51685.1.[address] Testing 3.430.2.7 Hospit a .3.713716 l .8 2021-03-25 2021-03-25 Orders Freed, 1.2.840.1 [id number] Methodi 00:00:00 00:00:00 Only Norma 74193.1.[address] 3.430.2.7 Hospit a .3.236430 l .8 2021-03-25 2021-03-25 Orders Freed, 1.2.840.1 [id number] Methodi 00:00:00 00:00:00 Only Norma 84606.1.[address] 3.430.2.7 Hospit a .3.982772 l .8 2021-03-24 2021-03-24 Orders Freed, 1.2.840.1 [id number] Methodi 00:00:00 00:00:00 Only Norma 99871.1.[address] 3.430.2.7 Hospit a .3.262713 l .8 2021-03-24 2021-03-24 Orders Jl, 1.2.840.1 [id number] [id number] Methodi 00:00:00 00:00:00 Only Carmelina Finnegan 15480.1.1 [address] 3.430.2.7 Hospit a .3.910646 l .8 2021-03-24 2021-03-24 Travel 1.2.840.1 1.2.598.125 6831 884985 Methodi 00:00:00 00:00:[address] 3.430.2.7 0.2.7.3.698 Ho spita .3.162809 084.8 l .8 2021-03-24 2021-03-24 Orders Freed, 1.2.840.1 [id number] 181448 8495 Methodi 00:00:00 00:00:00 Only Norma 07975.1.[address] 3.430.2.7 Hospit a .3.114215 l .8 2021-03-24 2021-03-24 Orders Jl, 1.2.840.1 [id number] 384369 5138 Methodi 00:00:00 00:00:00 Only Carmelina Finnegan 20699.1.1 488 s t 3.430.2.7 Hospit a .3.897438 l .8 2021-03-24 2021-03-24 Travel 1.2.840.1 1.2.761.317 3444 828383 Methodi 00:00:00 00:00:[address] 3.430.2.7 0.2.7.3.698 Ho spita .3.039493 084.8 l .8 2021-03-03 2021-03-03 [id number] [address] [place] 00:00:00 00:00:[address] 2021-03-03 2021-03-03 Transcribe Jean-Pierre, 1.2.840.1 [id number] 370 6351962 Methodi 00:00:00 00:00:00 Orders Dwain Montoya 70977.1.[address] 3.430.2.7 Hospit a .3.643213 l .8 2021-02-26 2021-02-26 Prep for Mccarthy, 1.2.840.1 [id number] 57522 36225 Methodi 00:00:00 00:00:00 Surgery Shelia 89891.1.[address] 3.430.2.7 Hospit a .3.301855 l .8 2021-02-19 2021-02-25 Pre-Admiss Jean-Pierre, 1.2.840.1 [id number] 422 [id number] Methodi 12:00:00 10:03:18 ion Dwain Montoya 12272.1.[address] Testing 3.430.2.7 Hospit a .3.087170 l .8 2021-02-23 2021-02-23 Transcribe Jean-Pierre, 1.2.840.1 [id number] 173 0008400 Methodi 00:00:00 00:00:00 Orders Dwain Montoya 68570.1.[address] 3.430.2.7 Hospit a .3.577125 l .8 2021-02-19 2021-02-19 [facility] [facility], 1.2.840.1 [id number] [id number] Methodi 13:13:46 23:59:00 Encounter Dwain Montoya 11617.1.[address] 3.430.2.7 Hospit a .3.819228 l .8 2021-02-19 2021-02-19 [facility] Jean-Pierre, 1.2.840.1 [id number] Methodi 10:30:00 11:17:24 Encounter Dwain Gregoriowin 98382.1.[address] 3.430.2.7 Hospit a .3.970570 l .8 2021-02-19 2021-02-19 Outpatient [facility] [id number] [address] [place] [address] 00:00:00 00:00:00 DWAIN [address] 2021-02-19 2021-02-19 Orders Xavier 1.2.840.1 [id number] Methodi 00:00:00 00:00:00 Only Ana Maria Jacobs 36862.1.[address] 3.430.2.7 Hospit a .3.787039 l .8 2021-02-19 2021-02-19 Travel 1.2.840.1 1.2.929.286 7107 [id number] Methodi 00:00:00 00:00:[address] 3.430.2.7 0.2.7.3.698 Ho spita .3.386926 084.8 l .8 2021-02-17 2021-02-17 Travel 1.2.840.1 1.2.108.820 8038 [id number] Methodi 00:00:00 00:00:[address] 3.430.2.7 0.2.7.3.698 Ho spita .3.681845 084.8 l .8 2021-02-16 2021-02-16 Orders Jean-Pierre, 1.2.840.1 [id number] 7896 Methodi 00:00:00 00:00:00 Only Dwain Montoya 30771.1.[address] 3.430.2.7 Hospit a .3.484611 l .8 2021-02-03 2021-02-03 Prep for Mccarthy, 1.2.840.1 [id number] Methodi 00:00:00 00:00:00 Surgery Shelia 90573.1.[address] 3.430.2.7 Hospit a .3.659545 l .8 2021-02-02 2021-02-02 [id number] [address] [place] 00:00:00 00:00:00 DWAIN Dick Method i st 2021-02-02 2021-02-02 Travel 1.2.840.1 1.2.588.754 6383 [id number] Methodi 00:00:00 00:00:[address] 3.430.2.7 0.2.7.3.698 Ho spita .3.081100 084.8 l .8 2021-01-08 2021-01-08 Office Jean-Pierre 1.2.840.1 [id number] 6231 Methodi 14:30:00 16:02:28 Visit Dwain Montoya 13074.1.[address] 3.430.2.7 Hospit a .3.585874 l .8 2021-01-08 2021-01-08 Ancillary Jean-Pierre 1.2.840.1 [id number] [id number] Methodi 14:40:00 14:55:00 Procedure Dwain Montoya 64766.1.[address] 3.430.2.7 Hospit a .3.694548 l .8 2021-01-08 2021-01-08 Nurse Only Jaqui 1.2.840.1 [id number] Methodi 00:00:00 00:00:[address] 3.430.2.7 Hospit a .3.111195 l .8 2021-01-08 2021-01-08 Orders Jean-Pierre, 1.2.840.1 [id number] Methodi 00:00:00 00:00:00 Only Dwain Montoya 36945.1.[address] 3.430.2.7 Hospit a .3.411778 l .8 2020-12-18 2020-12-18 Outpatient LEONEL, [facility] CAR 7502 Memoria 06:29:00 17:01:00 [facility] 2020-08-06 2020-08-07 Emergency Nolan, Norman Coughlin 1.2.840.1 62888 1004 [id number] Methodi 11:55:00 16:30:00 Ritu Janak Mcclellan 17646.1.[address] 3.430.2.7 Hospit a .3.846928 l .8 2020-08-06 2020-08-06 Travel 1.2.840.1 1.2.120.673 6268 [id number] Methodi 00:00:00 00:00:[address] 3.430.2.7 0.2.7.3.698 Ho spita .3.617127 084.8 l .8 2020-07-25 2020-07-25 Office Chantal, 1.2.840.1 [id number] 6807 Methodi 12:57:17 13:55:12 Visit Demarcus Alcazar 86864.1.[address] 3.430.2.7 Hospit a .3.710033 l .8 2020-07-25 2020-07-25 Travel 1.2.840.1 1.2.070.964 5595 457858 Methodi 00:00:00 00:00:[address] 3.430.2.7 0.2.7.3.698 Ho spita .3.316308 084.8 l .8 2020-07-11 2020-07-19 Hospital Manuela Braga 1.2.840.1 [id number] Methodi 16:15:00 14:37:00 Encounter Janak Skinner 06799.1.[address] 3.430.2.7 Hospit a .3.553169 l .8 2020-07-16 2020-07-16 Surgery Cornejo, 1.2.840.1 [id number] Methodi 12:30:00 14:00:00 Demarcus Alcazar [address]87.1.[address] 3.430.2.7 Hospit a .3.572850 l .8 2020-07-16 2020-07-16 Anesthesia Jayant Arambula 1.2.840.1 833366 012 [id number] Methodi 12:19:00 13:20:00 Event Irma Turpin 51342.1.[address] 3.430.2.7 Hospit a .3.521068 l .8 2020-07-11 2020-07-11 Travel 1.2.840.1 1.2.591.632 9883 [id number] Methodi 00:00:00 00:00:[address] 3.430.2.7 0.2.7.3.698 Ho spita .3.586321 084.8 l .8 2019-11-20 2019-11-21 Inpatient E ALPESH, [facility] MED 7501 Memoria 10:38:00 15:47:00 MARTITA puente 2019-02-05 2019-02-05 Inpatient U [facility] MED 7500 Memoria 10:30:00 07:48:00 kwame puente [facility] 2015-01-29 2015-01-29 Unknown nullAlexandriao [place] [id number] -8 Memoria 20:15:00 20:15:00 r Primary 6p8-0361-s Care be6-095b1b [facility] 0b03a3 2015-01-29 2015-01-29 Unknown nullFlavo [place] [id number] -8 Memoria 20:15:00 20:15:00 r Primary 8y7-8445-m l Care be6-095b1b [facility] 0b03a3 2015-01-29 2015-01-29 Out[place] [address] eClinic 14:15:00 14:15:00 Primary Primary alWork [facility] 2014-12-19 2014-12-19 Unknown nullFlavo [place] [id number] -f Memoria 19:41:00 19:41:00 r Primary 639-4a6a-8 l Care [id number]-n242cm [facility] a3d76e 2014-12-19 2014-12-19 Unknown nullFlavo [place] [id number] -f Memoria 19:41:00 19:41:00 r Primary 639-4a6a-8 l Care 8e3-u916ue [facility] a3d76e 2014-11-21 2014-11-21 Unknown nullFlavo [place] [id number] -7 Memoria 21:30:00 21:30:00 r Primary 04a-488c-9 l Care 5bf-8b4fbe [facility] 256fc5 2014-11-21 2014-11-21 Unknown nullFlavo [place] [id number] -7 Memoria 21:30:00 21:30:00 r Primary 04a-488c-9 l Care 5bf-8b4fbe [facility] 256fc5 2014-06-10 2014-06-10 Unknown nullFlavo [place] fx88qitw -1 Memoria 16:00:00 16:00:00 r Primary 91d-488f-8 l Care [id number] [facility] 868a81 2014-06-10 2014-06-10 Unknown nullFlavo [place] qs85jhsr -1 Memoria 16:00:00 16:00:00 r Primary 91d-488f-8 l Care [id number] [facility] 868a81 2014-06-10 2014-06-10 Unknown nullFlavo [place] [id number] -7 Memoria 15:00:00 15:00:00 r Primary 85e-47a6-a l Care 19a-5e84a0 [facility] ip9072 2014-06-10 2014-06-10 Unknown nullFlavo [place] [id number] -a Memoria 15:00:00 15:00:00 r Primary 355-4d22-a l Care 86a-3266dd [facility] 4803dc 2014-06-10 2014-06-10 Unknown nullFlavo [place] [id number] -4 Memoria 15:00:00 15:00:00 r Primary 683-4b16-9 l Care [id number] [facility] [id number] 2014-06-10 2014-06-10 Unknown nullFlavo [place] [id number] -4 Memoria 15:00:00 15:00:00 r Primary 683-4b16-9 l Care [id number]-x2h250 [facility] [id number] 2014-06-10 2014-06-10 Unknown nullFlavo [place] [id number] -a Memoria 15:00:00 15:00:00 r Primary 355-4d22-a l Care 86a-3266dd [facility] 4803dc 2014-06-10 2014-06-10 Unknown nullFlavo [place] 4p4znzyk -7 Memoria 15:00:00 15:00:00 r Primary 85e-47a6-a l Care 19a-5e84a0 [facility] [id number] 2014-06-10 2014-06-10 Out[place] [address] eClinic 10:00:00 10:00:00 Primary Primary alWork s Care [facility] 2014-05-17 2014-05-17 Unknown nullFlavo [place] [id number] -c Memoria 16:15:00 16:15:00 r Primary 5y7-1o58-9 l Care [id number]-h0220b [facility] [id number] 2014-05-17 2014-05-17 Unknown nullFlavo [place] [id number] -c Memoria 16:15:00 16:15:00 r Primary 2g9-1o10-9 l Care [id number]-[id number] [facility] [id number] 2014-05-17 2014-05-17 Unknown nullFlavo [place] [id number] -9 Memoria 15:15:00 15:15:00 r Primary a04-043s-z l Care k01-4e8ru8 [facility] 68c12d 2014-05-17 2014-05-17 Unknown nullFlavo [place] [id number] -5 Memoria 15:15:00 15:15:00 r Primary ce5-474d-a l Care 11e-b9f93d [facility] 559999 5520-03-20 2014-05-17 Unknown nullFlavo [place] 103x6c8x -9 Memoria 15:15:00 15:15:00 r Primary l17-693k-f l Care c66-2d5fi8 [facility] 68c12d 2014-05-17 2014-05-17 Unknown nullFlavo [place] [id number] -2 Memoria 15:15:00 15:15:00 r Primary cc8-4483-b l Care [id number] [facility] 509a47 2014-05-17 2014-05-17 Unknown nullFlavo [place] [id number] -5 Memoria 15:15:00 15:15:00 r Primary ce5-474d-a l Care 11e-b9f93d [facility] [id number] 0498-03-20 2014-05-17 Unknown nullFlavo [place] [id number] -2 Memoria 15:15:00 15:15:00 r Primary cc8-4483-b l Care [id number] [facility] 509a47 2014-05-17 2014-05-17 Out[place] [address] eClinic 10:15:00 10:15:00 Primary Primary alWork s Care [facility] 2014-04-15 2014-04-15 Unknown nullFlavo [place] [id number] -d Memoria 22:42:00 22:42:00 r Primary c1s-0e2q-t l Care [id number] [facility] ab800j 2014-04-15 2014-04-15 Unknown nullFlavo [place] [id number] -d Memoria 22:42:00 22:42:00 r Primary s9t-4z4x-j l Care [id number] [facility] bv874r 2014-04-15 2014-04-15 Unknown nullFlavo [place] [id number] -9 Memoria 21:42:00 21:42:00 r Primary 60e-47e5-8 l Care 43a-85c0ff [facility] 7f7bbc 2014-04-15 2014-04-15 Unknown nullFlavo [place] 6252eaaf -4 Memoria 21:42:00 21:42:00 r Primary 0ac-4496-9 l Care 699-0e2aa9 [facility] 5dd5b2 2014-04-15 2014-04-15 Unknown nullFlavo [place] ovx25d3m -7 Memoria 21:42:00 21:42:00 r Primary 827-48a3-b l Care 523-61u004 [facility] [id number] 2014-04-15 2014-04-15 Unknown nullFlavo [place] [id number] -7 Memoria 21:42:00 21:42:00 r Primary 827-48a3-b l Care 523-10j157 [facility] [id number] 2014-04-15 2014-04-15 Unknown nullFlavo [place] [id number] -4 Memoria 21:42:00 21:42:00 r Primary 0ac-4496-9 l Care 699-0e2aa9 [facility] 5dd5b2 2014-04-15 2014-04-15 Unknown nullFlavo [place] [id number] -9 Memoria 21:42:00 21:42:00 r Primary 60e-47e5-8 l Care 43a-85c0ff [facility] 7f7bbc 2014-03-25 2014-03-25 Unknown nullFlavo [place] [id number] -e Memoria 16:45:00 16:45:00 r Primary 6i8-8g88-1 l Care 94e-7856b2 [facility] [id number] 2014-03-25 2014-03-25 Unknown nullFlavo [place] [id number] -e Memoria 16:45:00 16:45:00 r Primary 6m0-2z87-6 l Care 94e-7856b2 [facility] d6bb02 2014-03-25 2014-03-25 Unknown nullFlavo [place] [id number] -9 Memoria 15:45:00 15:45:00 r Primary 765-443f-a l Care 321-[id number] [facility] 201e32 2014-03-25 2014-03-25 Unknown nullFlavo [place] 6x83h2wp -6 Memoria 15:45:00 15:45:00 r Primary b47-13r9-v l Care 7fb-909e1d [facility] 9e21ee 2014-03-25 2014-03-25 Unknown nullFlavo [place] [id number] -6 Memoria 15:45:00 15:45:00 r Primary w71-82k6-v l Care 7fb-909e1d [facility] 9e21ee 2014-03-25 2014-03-25 Unknown nullFlavo [place] [id number] -9 Memoria 15:45:00 15:45:00 r Primary 765-443f-a l Care 321-[id number] [facility] 201e32 2014-03-25 2014-03-25 Unknown nullFlavo [place] [id number] -b Memoria 15:45:00 15:45:00 r Primary 207-49fc-b l Care [id number]-p97p35 [facility] 227fe3 2014-03-25 2014-03-25 Unknown nullFlavo [place] [id number] -b Memoria 15:45:00 15:45:00 r Primary 207-49fc-b l Care [id number]-p40r64 [facility] 227fe3 2014-03-25 2014-03-25 Outpatient [place] [address] eClinic 10:45:00 10:45:00 Primary Primary alWork s Care [facility] Results Test Description Test Time Test Comments Results Result Comments Source POC-Glucose meter 2022-03-05 21:29:22 Test Item Value Reference Range Interpretation Comme nts POC-Glucose Meter (test code = 289 mg/dL 70-110 H : TESTED AT [facility] [address] [facility] 153) [facility] [address]: Computer Applications Instructor/Techni lisseth ID = [id number] for Mariajose Marie Lab Interpretation (test code = Abnormal 72183-2) [facility] [id number] 21:29:22 Test Item Value Reference Range Interpretation Comments POC-GLUCOSE METER 289 mg/dL 70-110 H : TESTED A T [address] [address] (BEAKER) (test code [address], = 1538) [place] [address]: Computer Applications Instructor/Techni lisseth ID = [id number] for Simi Miller POCT-GLUCOSE [id number] 21:29:14 Test Item Value Reference Range Interpretation Comments POC-GLUCOSE METER 285 mg/dL 70-110 H : TESTED A T [address] (BEAKER) (test code [address], = 1538) [place] [address]: Computer Applications Instructor/Techni lisseth ID = [id number] for Elizabeth Armstrong VANCOMYCIN LEVEL, [id number] 09:24:55 Test Item Value Reference Range Interpretation Comments VANCOMYCIN RANDOM (BEAKER) (test 22.2 ug/mL code = 523) Reference Range: No NormalsOperator ID - [id number] 07:00:05 Test Item Value Reference Range Interpretation Comments POC-GLUCOSE METER 296 mg/dL 70-110 H : TESTED A T [address] (BEAKER) (test code [address], = 1538) [place] [address]: Computer Applications Instructor/Techni lisseth ID = [id number] for Gabriela Otero BASIC METABOLIC [id number] 05:23:52 Test Item Value Reference Range Interpretation Comments SODIUM (BEAKER) 129 meq/L 135-148 L (test code = 381) POTASSIUM 3.8 meq/L 3.6-5.5 (BEAKER) (test code = 379) CHLORIDE (BEAKER) 93 meq/L 98-106 L (test code = 382) CO2 (BEAKER) 27 meq/L 20-29 (test code = 355) BLOOD UREA 50 mg/dL 10-26 H NITROGEN (BEAKER) (test code = 354) CREATININE 7.75 mg/dL 0.50-1.20 H (BEAKER) (test code = 358) GLUCOSE RANDOM 320 mg/dL 70-110 H (BEAKER) (test code = 652) CALCIUM (BEAKER) 7.6 mg/dL 8.5-10.5 L (test code = 697) EGFR (BEAKER) 5 Interpretatio n of eGFR (test code = mL/min/1.73 values Stage De scription 1092) sq m Result G1 Iris l or high >=90 G2 Mildly decreased 60-89 G3a Mildl y to moderately 45-5 9 G3b Moderately to s everely 30-44 G4 Severl y decreased 15-29 G5 Kidney failure <15Reported eGF R is based on the CKD-EPI 202 equation that d oes not use a race coefficientEsti mated GFR is not as accur ate as Creatinine Agnieszka gagan in predicting glom erular filtration rate . Estimated GFR is not appl icable for dialysis patien ts Computer Applications Instructor ID - LITOOperator ID - LITOOperator ID - LITOOperator ID - LITOOperator ID - LITOOperator ID - LITOOperator ID - LITOOperator ID - LITOOperator ID - LITOOperator ID - [id number] 05:22:13 Test Item Value Reference Range Interpretation Comments MAGNESIUM (BEAKER) (test code = 1.8 mg/dL 1.5-3.0 627) Computer Applications Instructor ID - LITOOperator ID - LITOOperator ID - LITOOperator ID - JUNO [id number] 05:19:31 Test Item Value Reference Range Interpretation Comments PHOSPHORUS (BEAKER) (test code = 2.0 mg/dL 2.5-4.5 L 604) Computer Applications Instructor ID - LITOCBC W/PLT COUNT & AUTO [id number] 05:12:17 Test Item Value Reference Range Interpretation Comments WHITE BLOOD CELL COUNT (BEAKER) 4.9 K/ L 4.0-10.0 (test code = 775) RED BLOOD CELL COUNT (BEAKER) 2.37 M/ L 4.00-5.00 L (test code = 761) HEMOGLOBIN (BEAKER) (test code = 7.3 GM/DL 12.0-15.5 L 410) HEMATOCRIT (BEAKER) (test code = 22.2 % 36.0-46.0 L 411) MEAN CORPUSCULAR VOLUME (BEAKER) 94 fL 82-99 (test code = 753) MEAN CORPUSCULAR HEMOGLOBIN 30.8 pg 27.0-33.0 (BEAKER) (test code = 751) MEAN CORPUSCULAR HEMOGLOBIN CONC 32.9 GM/DL 32.0-36.0 (BEAKER) (test code = 752) RED CELL DISTRIBUTION WIDTH 17.2 % 12.0-15.0 H (BEAKER) (test code = 412) PLATELET COUNT (BEAKER) (test 187 K/CU MM 150-430 code = 756) MEAN PLATELET VOLUME (BEAKER) 8.5 fL 6.0-11.5 (test code = 754) NUCLEATED RED BLOOD CELLS 0 /100 WBC 0-0 (BEAKER) (test code = 413) NEUTROPHILS RELATIVE PERCENT 73 % (BEAKER) (test code = 429) LYMPHOCYTES RELATIVE PERCENT 15 % (BEAKER) (test code = 430) MONOCYTES RELATIVE PERCENT 8 % (BEAKER) (test code = 431) EOSINOPHILS RELATIVE PERCENT 1 % (BEAKER) (test code = 432) BASOPHILS RELATIVE PERCENT 1 % (BEAKER) (test code = 437) NEUTROPHILS ABSOLUTE COUNT 3.62 K/ L 1.80-8.00 (BEAKER) (test code = 670) LYMPHOCYTES ABSOLUTE COUNT 0.74 K/ L 1.48-4.50 L (BEAKER) (test code = 414) MONOCYTES ABSOLUTE COUNT (BEAKER) 0.38 K/ L 0.00-1.30 (test code = 415) EOSINOPHILS ABSOLUTE COUNT 0.07 K/ L 0.00-0.50 (BEAKER) (test code = 416) BASOPHILS ABSOLUTE COUNT (BEAKER) 0.03 K/ L 0.00-0.20 (test code = 417) IMMATURE GRANULOCYTES-RELATIVE 2.00 % 0.00-0.00 H PERCENT (BEAKER) (test code = 2801) POCT-GLUCOSE [id number] 21:58:42 Test Item Value Reference Range Interpretation Comments POC-GLUCOSE METER 342 mg/dL 70-110 H : TESTED A T [facility] (BEAKER) (test code [facility] [address], = 1538) [facility] [address]: Computer Applications Instructor/Techni lisseth ID = [id number] for Gabriela Otero POCT-GLUCOSE [id number] 17:20:24 Test Item Value Reference Range Interpretation Comments POC-GLUCOSE METER 281 mg/dL 70-110 H : TESTED A T [facility] [address] (BEAKER) (test [facility] [address] [facility] = [facility]) [place] [address]: Computer Applications Instructor/Techni lisseth ID = [id number] for Alza hrevgeny, Zaena POCT-GLUCOSE [id number] 12:13:20 Test Item Value Reference Range Interpretation Comments POC-GLUCOSE METER 245 mg/dL 70-110 H : TESTED A T [facility] [address] (BEAKER) (test code [address] [facility], = 1538) [place] [address]: Computer Applications Instructor/Techni lisseth ID = [id number] for Alza hram, Zaena POCT-GLUCOSE [id number] 09:15:57 Test Item Value Reference Range Interpretation Comments POC-GLUCOSE METER 177 mg/dL 70-110 H : TESTED A T [facility] [address] (BEAKER) (test code [address] [facility], = 1538) [place] [address]: Computer Applications Instructor/Techni lisseth ID = [id number] for Alza hram, Zaena POCT-GLUCOSE [id number] 06:34:33 Test Item Value Reference Range Interpretation Comments POC-GLUCOSE METER 203 mg/dL 70-110 H : Notified RN/MD: TESTED (BEAKER) [facility] [address] = [address]) [place] [id number]: Computer Applications Instructor/Techni lisseth ID = [id number] for Cynthia Lozoya [id number] 06:09:24 Test Item Value Reference Range Interpretation Comments MAGNESIUM (BEAKER) (test code = 1.9 mg/dL 1.5-3.0 627) Computer Applications Instructor ID - [id number] ID - [id number] ID - [id number] ID - [id number] BASIC METABOLIC [id number] 06:08:36 Test Item Value Reference Range Interpretation Comments SODIUM (BEAKER) 130 meq/L 135-148 L (test code = 381) POTASSIUM 3.4 meq/L 3.6-5.5 L (BEAKER) (test code = 379) CHLORIDE (BEAKER) 93 meq/L 98-106 L (test code = 382) CO2 (BEAKER) 26 meq/L 20-29 (test code = 355) BLOOD UREA 49 mg/dL 10-26 H NITROGEN (BEAKER) (test code = 354) CREATININE 8.03 mg/dL 0.50-1.20 H (BEAKER) (test code = 358) GLUCOSE RANDOM 228 mg/dL 70-110 H (BEAKER) (test code = 652) CALCIUM (BEAKER) 7.4 mg/dL 8.5-10.5 L (test code = 697) EGFR (BEAKER) 5 Interpretatio n of eGFR (test code = [...] not as accur ate as Creatinine Agnieszka gagan in predicting glom erular filtration rate . Estimated GFR is not appl icable for dialysis patien ts Computer Applications Instructor ID - [id number] ID - YSRS19Fqtksraz ID - [id number] ID - TJDA87Tvixggem ID - PEBB17Soqggmkz ID - OYUM24Jycvsgak ID - ZIMS72Kukopcfo ID - EJSP29Utwozqzw ID - APBQ05Mmsjitzd ID - [id number] 06:06:36 Test Item Value Reference Range Interpretation Comments PHOSPHORUS (BEAKER) (test code = 2.3 mg/dL 2.5-4.5 L 604) Computer Applications Instructor ID - [id number] W/PLT COUNT & AUTO [id number] 05:30:26 Test Item Value Reference Range Interpretation Comments WHITE BLOOD CELL COUNT (BEAKER) 4.1 K/ L 4.0-10.0 (test code = 775) RED BLOOD CELL COUNT (BEAKER) 2.39 M/ L 4.00-5.00 L (test code = 761) HEMOGLOBIN (BEAKER) (test code = 7.4 GM/DL 12.0-15.5 L 410) HEMATOCRIT (BEAKER) (test code = 22.2 % 36.0-46.0 L 411) MEAN CORPUSCULAR VOLUME (BEAKER) 93 fL 82-99 (test code = 753) MEAN CORPUSCULAR HEMOGLOBIN 31.0 pg 27.0-33.0 (BEAKER) (test code = 751) MEAN CORPUSCULAR HEMOGLOBIN CONC 33.3 GM/DL 32.0-36.0 (BEAKER) (test code = 752) RED CELL DISTRIBUTION WIDTH 16.8 % 12.0-15.0 H (BEAKER) (test code = 412) PLATELET COUNT (BEAKER) (test 169 K/CU MM 150-430 code = 756) MEAN PLATELET VOLUME (BEAKER) 9.0 fL 6.0-11.5 (test code = 754) NUCLEATED RED BLOOD CELLS 0 /100 WBC 0-0 (BEAKER) (test code = 413) NEUTROPHILS RELATIVE PERCENT 75 % (BEAKER) (test code = 429) LYMPHOCYTES RELATIVE PERCENT 15 % (BEAKER) (test code = 430) MONOCYTES RELATIVE PERCENT 7 % (BEAKER) (test code = 431) EOSINOPHILS RELATIVE PERCENT 1 % (BEAKER) (test code = 432) BASOPHILS RELATIVE PERCENT 1 % (BEAKER) (test code = 437) NEUTROPHILS ABSOLUTE COUNT 3.10 K/ L 1.80-8.00 (BEAKER) (test code = 670) LYMPHOCYTES ABSOLUTE COUNT 0.60 K/ L 1.48-4.50 L (BEAKER) (test code = 414) MONOCYTES ABSOLUTE COUNT (BEAKER) 0.29 K/ L 0.00-1.30 (test code = 415) EOSINOPHILS ABSOLUTE COUNT 0.05 K/ L 0.00-0.50 (BEAKER) (test code = 416) BASOPHILS ABSOLUTE COUNT (BEAKER) 0.02 K/ L 0.00-0.20 (test code = 417) IMMATURE GRANULOCYTES-RELATIVE 1.90 % 0.00-0.00 H PERCENT (BEAKER) (test code = 2801) POCT-GLUCOSE [id number] 21:30:59 Test Item Value Reference Range Interpretation Comments POC-GLUCOSE METER 268 mg/dL 70-110 H : Notified RN/MD: TESTED (BEAKER) (test code AT [address] POINT = 1538) [facility] [id number]: Computer Applications Instructor/Techni lisseth ID = [id number] for Cynthia Lozoya POCT-GLUCOSE [id number] 17:12:44 Test Item Value Reference Range Interpretation Comments POC-GLUCOSE METER 301 mg/dL 70-110 H : TESTED A T [address] [address] (BEAKER) (test code [address], = 1538) [place] [id number]: Computer Applications Instructor/Techni lisseth ID = [id number] for Bessy Nelson 2D Echo W/Doppler(CW/PW/Color)2022-03-03 13:23:57Ejection FractionSLEH ECHO [facility] [id number] 12:12:22 Test Item Value Reference Range Interpretation Comments POC-GLUCOSE METER 202 mg/dL 70-110 H : TESTED A T [facility] [address] (BEAKER) (test code [address], = 1538) [place] [id number]: Computer Applications Instructor/Techni lisseth ID = [id number] for Bessy Nelson (MANUAL DIFFERENTIAL)2022-03-03 07:24:54 Test Item Value Reference Range Interpretation Comments NEUTROPHILS - REL (DIFF) (BEAKER) 73 % (test code = 1359) LYMPHOCYTES - REL (DIFF) (BEAKER) 16 % (test code = 1360) MONOCYTES - REL (DIFF) (BEAKER) 8 % (test code = 1361) MYELOCYTES-REL (DIFF) (BEAKER) 1 % 0-0 H (test code = 1594) ATYPICAL LYMPHOCYTE - REL (DIFF) 2 % 0-0 H (BEAKER) (test code = 260) NEUTROPHILS - ABS (DIFF) (BEAKER) 3.43 K/ L 1.80-8.00 (test code = 1365) LYMPHOCYTES - ABS (DIFF) (BEAKER) 0.75 K/ L 1.48-4.50 L (test code = 1366) MONOCYTES - ABS (DIFF) (BEAKER) 0.38 K/ L 0.00-1.30 (test code = 1367) ATYPICAL LYMPHOCYTES - ABS (DIFF) 0.09 K/ L 0.00-0.00 H (BEAKER) (test code = 263) MYELOCYTES-ABS (DIFF) (BEAKER) 0.05 K/ L 0.00-0.00 H (test code = 1593) TOTAL COUNTED (BEAKER) (test code = 100 1351) WBC MORPHOLOGY (BEAKER) (test code Normal = 487) PLT MORPHOLOGY (BEAKER) (test code Normal = 486) RBC MORPHOLOGY (BEAKER) (test code Normal = 762) CBC W/PLT COUNT & AUTO [id number] 07:24:53 Test Item Value Reference Range Interpretation Comments WHITE BLOOD CELL COUNT (BEAKER) 4.7 K/ L 4.0-10.0 (test code = 775) RED BLOOD CELL COUNT (BEAKER) 2.45 M/ L 4.00-5.00 L (test code = 761) HEMOGLOBIN (BEAKER) (test code = 7.5 GM/DL 12.0-15.5 L 410) HEMATOCRIT (BEAKER) (test code = 22.6 % 36.0-46.0 L 411) MEAN CORPUSCULAR VOLUME (BEAKER) 92 fL 82-99 (test code = 753) MEAN CORPUSCULAR HEMOGLOBIN 30.6 pg 27.0-33.0 (BEAKER) (test code = 751) MEAN CORPUSCULAR HEMOGLOBIN CONC 33.2 GM/DL 32.0-36.0 (BEAKER) (test code = 752) RED CELL DISTRIBUTION WIDTH 17.1 % 12.0-15.0 H (BEAKER) (test code = 412) PLATELET COUNT (BEAKER) (test 166 K/CU MM 150-430 code = 756) MEAN PLATELET VOLUME (BEAKER) 8.7 fL 6.0-11.5 (test code = 754) NUCLEATED RED BLOOD CELLS 0 /100 WBC 0-0 (BEAKER) (test code = 413) BASIC METABOLIC [id number] 07:02:31 Test Item Value Reference Range Interpretation Comments SODIUM (BEAKER) 131 meq/L 135-148 L (test code = 381) POTASSIUM 3.5 meq/L 3.6-5.5 L Specimen slight ly (BEAKER) (test hemolyzed code = 379) CHLORIDE (BEAKER) 95 meq/L 98-106 L (test code = 382) CO2 (BEAKER) 23 meq/L 20-29 (test code = 355) BLOOD UREA 44 mg/dL 10-26 H NITROGEN (BEAKER) (test code = 354) CREATININE 7.99 mg/dL 0.50-1.20 H Specimen slight ly (BEAKER) (test hemolyzed code = 358) GLUCOSE RANDOM 173 mg/dL 70-110 H (BEAKER) (test code = 652) CALCIUM (BEAKER) 7.2 mg/dL 8.5-10.5 L (test code = 697) EGFR (BEAKER) 5 Interpretatio n of eGFR (test code = [...] not as accur ate as Creatinine Agnieszka gagan in predicting glom erular filtration rate . Estimated GFR is not appl icable for dialysis patien ts Computer Applications Instructor ID - DSENSONOperator ID - DSENSONOperator ID - DSENSONOperator ID - DSENSONOperator ID - DSENSONOperator ID - DSENSONOperator ID - DSENSONOperator ID - DSENSONOperator ID - DSENSONOperator ID - [id number] 07:01:36 Test Item Value Reference Range Interpretation Comments MAGNESIUM (BEAKER) 1.5 mg/dL 1.5-3.0 Specimen slightly (test code = 627) hemolyzed Computer Applications Instructor ID - DSENSONOperator ID - DSENSONOperator ID - DSENSONOperator ID - [id number] 06:58:57 Test Item Value Reference Range Interpretation Comments PHOSPHORUS (BEAKER) 3.0 mg/dL 2.5-4.5 Specimen slightly (test code = 604) hemolyzed Computer Applications Instructor ID - DSENSONPrepare [id number] 23:54:00 Test Item Value Reference Range Interpretation Comments CROSSMATCH (test code = 2264) COMPATIBLE Unit ABO (test code = O Neg [id number]) UNIT NUMBER (test code = [id number] 934-0) Status (test code = 0144504) TX_TIMEINCHART Blood Bank Product (test code RED BLOOD CELLS = 2263) PRODUCT CODE (test code = S3925Q64 933-2) [facility] [id number] 23:37:14 Test Item Value Reference Range Interpretation Comments POC-GLUCOSE METER 219 mg/dL 70-110 H : TESTED A T [address] (BEAKER) (test code [address], = 1538) [place] [address]: Computer Applications Instructor/Techni lisseth ID = [id number] for Nelli Muller POCT-GLUCOSE [id number] 16:00:19 Test Item Value Reference Range Interpretation Comments POC-GLUCOSE METER 205 mg/dL 70-110 H : TESTED A T [address] (BEAKER) (test code [address], = 1538) [place] [address]: Computer Applications Instructor/Techni lisseth ID = [id number] for Jigna Latif CT, BRAIN, WITHOUT [id number] 13:53:00 [facility] : 1940 [address]: [address], BRAIN, WITHOUT CONTRAST CLINICAL INDICATION: Unlisted Reason for Exam, acute encephalopathy COMPARISON: 11/23/2014 TECHNIQUE: Noncontrast axial CT imaging of the brain and skull. Coronal and sagittal reformats are provided. DOSE REDUCTION: Dose modulation, iterative reconstruction, and/or weight-based adjustment of the mA/kV was utilized to reduce the radiation dose to as low as reasonably achievable. FINDINGS:No intracranial hemorrhage, midline shift or mass effect. Midline structures are normally developed. Hypoattenuation within the periventricular and subcortical white matter is present, nonspecific by imaging, however, statistically representing chronic microvascular changes in this age group. Diffuse senescent parenchymal volume loss. 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 Old lacunar infarcts in the left genu of the internal capsule.No hydrocephalus. Atherosclerotic calcification of the intracranial internal carotid and vertebral arteries. Orbits are within normal limits. Prior bilateral lens surgery. No o bstructive paranasal sinus disease. IMPRESSION: 1.No acute intracranial findings2.Old lacunar infarct in the left striatocapsular region and left internal capsule. If there is persistent clinical concern for intracranial pathology, MR should be considered for further characterization. Signed: Prince Carlos MDReport Verified Date/Time: 03/02/2022 13:53:51 POCT-GLUCOSE [id number] 12:15:36 Test Item Value Reference Range Interpretation Comments POC-GLUCOSE METER 195 mg/dL 70-110 H : TESTED A T [address] (BEAKER) (test code [address], = 1538) [place] [address]: Computer Applications Instructor/Techni lisseth ID = [id number] for Jigna Latif POCT-GLUCOSE [id number] 06:50:22 Test Item Value Reference Range Interpretation Comments POC-GLUCOSE METER 182 mg/dL 70-110 H : TESTED A T [address] (BEAKER) (test code [address], = 1538) [place] [address]: Computer Applications Instructor/Techni lisseth ID = [id number] for Ana Maria Finch BASIC METABOLIC [id number] 06:01:29 Test Item Value Reference Range Interpretation Comments SODIUM (BEAKER) 130 meq/L 135-148 L (test code = 381) POTASSIUM 3.1 meq/L 3.6-5.5 L (BEAKER) (test code = 379) CHLORIDE (BEAKER) 94 meq/L 98-106 L (test code = 382) CO2 (BEAKER) 24 meq/L 20-29 (test code = 355) BLOOD UREA 45 mg/dL 10-26 H NITROGEN (BEAKER) (test code = 354) CREATININE 8.06 mg/dL 0.50-1.20 H (BEAKER) (test code = 358) GLUCOSE RANDOM 187 mg/dL 70-110 H (BEAKER) (test code = 652) CALCIUM (BEAKER) 7.1 mg/dL 8.5-10.5 L (test code = 697) EGFR (BEAKER) 5 Interpretatio n of eGFR (test code = mL/min/1.73 values Stage De scription 1092) sq m Result G1 Iris l or high >=90 G2 Mildly decreased 60-89 G3a Mildl y to moderately 45-5 9 G3b Moderately to s everely 30-44 G4 Severl y decreased 15-29 G5 Kidney failure <15Reported eGF R is based on the CKD-EPI 2021 equation that d oes not use a race coefficientEsti mated GFR is not as accur ate as Creatinine Agnieszka gagan in predicting glom erular filtration rate . Estimated GFR is not appl icable for dialysis patien ts Computer Applications Instructor ID - [id number] ID - [id number] ID - IKJRQFLZN034Xupvguwb ID - [id number] ID - EWHFYGHPU725Nbqefake ID - FSLXRPPTY745Rzaegyso ID - CZVZDODWF846Qeesnnqp ID - MHSGLQWGE722Ijcyyjxr ID - OBGLKSKVM718Ebwqkjai ID - [id number] 05:58:57 Test Item Value Reference Range Interpretation Comments MAGNESIUM (BEAKER) (test code = 1.5 mg/dL 1.5-3.0 627) Computer Applications Instructor ID - [id number] ID - QGVGQYIRR128Gsyqtmft ID - EGAKBSMWV144Lnvmaeyc ID - [id number] 05:56:30 Test Item Value Reference Range Interpretation Comments PHOSPHORUS (BEAKER) (test code = 2.9 mg/dL 2.5-4.5 604) Computer Applications Instructor ID - [id number] W/PLT COUNT & AUTO [id number] 05:55:29 Test Item Value Reference Range Interpretation Comments WHITE BLOOD CELL COUNT (BEAKER) 7.2 K/ L 4.0-10.0 (test code = 775) RED BLOOD CELL COUNT (BEAKER) 2.38 M/ L 4.00-5.00 L (test code = 761) HEMOGLOBIN (BEAKER) (test code = 7.5 GM/DL 12.0-15.5 L 410) HEMATOCRIT (BEAKER) (test code = 22.3 % 36.0-46.0 L 411) MEAN CORPUSCULAR VOLUME (BEAKER) 94 fL 82-99 (test code = 753) MEAN CORPUSCULAR HEMOGLOBIN 31.5 pg 27.0-33.0 (BEAKER) (test code = 751) MEAN CORPUSCULAR HEMOGLOBIN CONC 33.6 GM/DL 32.0-36.0 (BEAKER) (test code = 752) RED CELL DISTRIBUTION WIDTH 17.3 % 12.0-15.0 H (BEAKER) (test code = 412) PLATELET COUNT (BEAKER) (test 205 K/CU MM 150-430 code = 756) MEAN PLATELET VOLUME (BEAKER) 9.0 fL 6.0-11.5 (test code = 754) NUCLEATED RED BLOOD CELLS 0 /100 WBC 0-0 (BEAKER) (test code = 413) NEUTROPHILS RELATIVE PERCENT 79 % (BEAKER) (test code = 429) LYMPHOCYTES RELATIVE PERCENT 12 % (BEAKER) (test code = 430) MONOCYTES RELATIVE PERCENT 7 % (BEAKER) (test code = 431) EOSINOPHILS RELATIVE PERCENT 1 % (BEAKER) (test code = 432) BASOPHILS RELATIVE PERCENT 0 % (BEAKER) (test code = 437) NEUTROPHILS ABSOLUTE COUNT 5.65 K/ L 1.80-8.00 (BEAKER) (test code = 670) LYMPHOCYTES ABSOLUTE COUNT 0.84 K/ L 1.48-4.50 L (BEAKER) (test code = 414) MONOCYTES ABSOLUTE COUNT (BEAKER) 0.52 K/ L 0.00-1.30 (test code = 415) EOSINOPHILS ABSOLUTE COUNT 0.05 K/ L 0.00-0.50 (BEAKER) (test code = 416) BASOPHILS ABSOLUTE COUNT (BEAKER) 0.02 K/ L 0.00-0.20 (test code = 417) IMMATURE GRANULOCYTES-RELATIVE 1.10 % 0.00-0.00 H PERCENT (BEAKER) (test code = 2801) POCT-GLUCOSE [id number] 21:06:25 Test Item Value Reference Range Interpretation Comments POC-GLUCOSE METER 295 mg/dL 70-110 H : TESTED A T [address] (BEAKER) (test code [address], = 1538) [facility] [address]: Computer Applications Instructor/Techni lisseth ID = [id number] for Ana Maria Finch POCT-GLUCOSE [id number] 15:10:34 Test Item Value Reference Range Interpretation Comments POC-GLUCOSE METER 268 mg/dL 70-110 H : TESTED A T [address] (BEAKER) (test code [address], = 1538) [place] [address]: Computer Applications Instructor/Techni lisseth ID = [id number] for Will Jigna avila POCT-GLUCOSE [id number] 11:02:27 Test Item Value Reference Range Interpretation Comments POC-GLUCOSE METER 157 mg/dL 70-110 H : TESTED A T [address] (BEAKER) (test code [address], = 1538) [place] [address]: Computer Applications Instructor/Techni lisseth ID = [id number] for Will Jigna avila [id number] 07:25:48 Test Item Value Reference Range Interpretation Comments MAGNESIUM (BEAKER) 1.8 mg/dL 1.5-3.0 Specimen slightly (test code = 627) hemolyzed Computer Applications Instructor ID - [id number] ID - [id number] ID - JDZF27Zzvtovof ID - [id number] BASIC METABOLIC [id number] 07:24:39 Test Item Value Reference Range Interpretation Comments SODIUM (BEAKER) 130 meq/L 135-148 L (test code = 381) POTASSIUM 3.8 meq/L 3.6-5.5 Specimen slight ly (BEAKER) (test hemolyzed code = 379) CHLORIDE (BEAKER) 95 meq/L 98-106 L (test code = 382) CO2 (BEAKER) 21 meq/L 20-29 (test code = 355) BLOOD UREA 45 mg/dL 10-26 H NITROGEN (BEAKER) (test code = 354) CREATININE 8.42 mg/dL 0.50-1.20 H Specimen slight ly (BEAKER) (test hemolyzed code = 358) GLUCOSE RANDOM 180 mg/dL 70-110 H (BEAKER) (test code = 652) CALCIUM (BEAKER) 7.0 mg/dL 8.5-10.5 L (test code = 697) EGFR (BEAKER) 4 Interpretatio n of eGFR (test code = mL/min/1.73 values Stage De scription 1092) sq m Result G1 Norm al or high >=90 G2 Mildly decreased 60-89 G3a Mildl y to moderately 45-5 9 G3b Moderately to s everely 30-44 G4 Severl y decreased 15-29 G5 Kidney failure <15Reported eGF R is based on the CKD-EPI 202 equation that d oes not use a race coefficientEsti mated GFR is not as accur ate as Creatinine Agnieszka gagan in predicting glom erular filtration rate . Estimated GFR is not appl icable for dialysis patien ts Computer Applications Instructor ID - [id number] ID - [id number] ID - CODE50Onpzbyzz ID - AQEO97Thfsmflh ID - VWDR52Rqifxtha ID - AUFS84Swowzqro ID - UDCW69Idoxxgpd ID - CPWY39Fgjuqbbz ID - AXVJ54Ywvdmvbb ID - [id number] 07:23:10 Test Item Value Reference Range Interpretation Comments PHOSPHORUS (BEAKER) 3.6 mg/dL 2.5-4.5 Specimen slightly (test code = 604) hemolyzed Computer Applications Instructor ID - [id number] W/PLT COUNT & AUTO [id number] 06:59:05 Test Item Value Reference Range Interpretation Comments WHITE BLOOD CELL COUNT (BEAKER) 5.6 K/ L 4.0-10.0 (test code = 775) RED BLOOD CELL COUNT (BEAKER) 2.15 M/ L 4.00-5.00 L (test code = 761) HEMOGLOBIN (BEAKER) (test code = 6.6 GM/DL 12.0-15.5 L 410) HEMATOCRIT (BEAKER) (test code = 22.3 % 36.0-46.0 L 411) MEAN CORPUSCULAR VOLUME (BEAKER) 104 fL 82-99 H (test code = 753) MEAN CORPUSCULAR HEMOGLOBIN 30.7 pg 27.0-33.0 (BEAKER) (test code = 751) MEAN CORPUSCULAR HEMOGLOBIN CONC 29.6 GM/DL 32.0-36.0 L (BEAKER) (test code = 752) RED CELL DISTRIBUTION WIDTH 17.4 % 12.0-15.0 H (BEAKER) (test code = 412) PLATELET COUNT (BEAKER) (test code 73 K/CU MM 150-430 L = 756) MEAN PLATELET VOLUME (BEAKER) 9.9 fL 6.0-11.5 (test code = 754) NUCLEATED RED BLOOD CELLS (BEAKER) 0 /100 WBC 0-0 (test code = 413) NEUTROPHILS RELATIVE PERCENT 77 % (BEAKER) (test code = 429) LYMPHOCYTES RELATIVE PERCENT 14 % (BEAKER) (test code = 430) MONOCYTES RELATIVE PERCENT 6 % (BEAKER) (test code = 431) EOSINOPHILS RELATIVE PERCENT 1 % (BEAKER) (test code = 432) BASOPHILS RELATIVE PERCENT 1 % (BEAKER) (test code = 437) NEUTROPHILS ABSOLUTE COUNT 4.29 K/ L 1.80-8.00 (BEAKER) (test code = 670) LYMPHOCYTES ABSOLUTE COUNT 0.78 K/ L 1.48-4.50 L (BEAKER) (test code = 414) MONOCYTES ABSOLUTE COUNT (BEAKER) 0.35 K/ L 0.00-1.30 (test code = 415) EOSINOPHILS ABSOLUTE COUNT 0.06 K/ L 0.00-0.50 (BEAKER) (test code = 416) BASOPHILS ABSOLUTE COUNT (BEAKER) 0.04 K/ L 0.00-0.20 (test code = 417) IMMATURE GRANULOCYTES-RELATIVE 0.50 % 0.00-0.00 H PERCENT (BEAKER) (test code = 2801) POCT-GLUCOSE [id number] 06:44:18 Test Item Value Reference Range Interpretation Comments POC-GLUCOSE METER 179 mg/dL 70-110 H : TESTED A T [address] (BEAKER) ([facility] [place] [id number]: Computer Applications Instructor/Techni lisseth ID = [id number] for Ana Maria Finch POCT-GLUCOSE [id number] 20:39:05 Test Item Value Reference Range Interpretation Comments POC-GLUCOSE METER 242 mg/dL 70-110 H : TESTED A T [address] (BEAKER) ([facility] [place] [address]: Computer Applications Instructor/Techni lisseth ID = [id number] for Ana Maria Finch POCT-GLUCOSE [id number] 16:56:49 Test Item Value Reference Range Interpretation Comments POC-GLUCOSE METER 217 mg/dL 70-110 H : TESTED A T [address] (BEAKER) ([facility] = [facility]) [place] [address]: Computer Applications Instructor/Techni lisseth ID = [id number] for Katja Coelho BASIC METABOLIC [id number] 13:10:13 Test Item Value Reference Range Interpretation Comments SODIUM (BEAKER) 130 meq/L 135-148 L (test code = 381) POTASSIUM 3.6 meq/L 3.6-5.5 (BEAKER) (test code = 379) CHLORIDE (BEAKER) 93 meq/L 98-106 L (test code = 382) CO2 (BEAKER) 24 meq/L 20-29 (test code = 355) BLOOD UREA 42 mg/dL 10-26 H NITROGEN (BEAKER) (test code = 354) CREATININE 8.09 mg/dL 0.50-1.20 H (BEAKER) (test code = 358) GLUCOSE RANDOM 177 mg/dL 70-110 H (BEAKER) (test code = 652) CALCIUM (BEAKER) 7.2 mg/dL 8.5-10.5 L (test code = 697) EGFR (BEAKER) 5 Interpretatio n of eGFR (test code = [...] not as accur ate as Creatinine Agnieszka gagan in predicting glom erular filtration rate . Estimated GFR is not appl icable for dialysis patien ts Computer Applications Instructor ID - [id number] ID - [id number] ID - EQLOBVVIB808Vlphrwsx ID - RPTWYSLZT885Bilyzlqf ID - SOMRYSION585Oadptdfw ID - VCQJJNIYB719Puzjjvmu ID - ABATIPRCW014Yxpynavg ID - QAAQMSRGX300Cpjxsfro ID - UXGFIYHDK998Rvjxyybt ID - [id number] 13:06:45 Test Item Value Reference Range Interpretation Comments MAGNESIUM (BEAKER) (test code = 1.8 mg/dL 1.5-3.0 627) Computer Applications Instructor ID - [id number] ID - [id number] ID - ZTJANYEQT554Vwgtoncw ID - [id number] 13:04:07 Test Item Value Reference Range Interpretation Comments PHOSPHORUS (BEAKER) (test code = 3.5 mg/dL 2.5-4.5 604) Computer Applications Instructor ID - [id number] W/PLT COUNT & AUTO [id number] 12:45:57 Test Item Value Reference Range Interpretation Comments WHITE BLOOD CELL COUNT (BEAKER) 7.7 K/ L 4.0-10.0 (test code = 775) RED BLOOD CELL COUNT (BEAKER) 2.50 M/ L 4.00-5.00 L (test code = 761) HEMOGLOBIN (BEAKER) (test code = 7.7 GM/DL 12.0-15.5 L 410) HEMATOCRIT (BEAKER) (test code = 23.5 % 36.0-46.0 L 411) MEAN CORPUSCULAR VOLUME (BEAKER) 94 fL 82-99 (test code = 753) MEAN CORPUSCULAR HEMOGLOBIN 30.8 pg 27.0-33.0 (BEAKER) (test code = 751) MEAN CORPUSCULAR HEMOGLOBIN CONC 32.8 GM/DL 32.0-36.0 (BEAKER) (test code = 752) RED CELL DISTRIBUTION WIDTH 17.0 % 12.0-15.0 H (BEAKER) (test code = 412) PLATELET COUNT (BEAKER) (test 190 K/CU MM 150-430 code = 756) MEAN PLATELET VOLUME (BEAKER) 8.6 fL 6.0-11.5 (test code = 754) NUCLEATED RED BLOOD CELLS 0 /100 WBC 0-0 (BEAKER) (test code = 413) NEUTROPHILS RELATIVE PERCENT 81 % (BEAKER) (test code = 429) LYMPHOCYTES RELATIVE PERCENT 12 % (BEAKER) (test code = 430) MONOCYTES RELATIVE PERCENT 6 % (BEAKER) (test code = 431) EOSINOPHILS RELATIVE PERCENT 1 % (BEAKER) (test code = 432) BASOPHILS RELATIVE PERCENT 0 % (BEAKER) (test code = 437) NEUTROPHILS ABSOLUTE COUNT 6.17 K/ L 1.80-8.00 (BEAKER) (test code = 670) LYMPHOCYTES ABSOLUTE COUNT 0.90 K/ L 1.48-4.50 L (BEAKER) (test code = 414) MONOCYTES ABSOLUTE COUNT (BEAKER) 0.44 K/ L 0.00-1.30 (test code = 415) EOSINOPHILS ABSOLUTE COUNT 0.05 K/ L 0.00-0.50 (BEAKER) (test code = 416) BASOPHILS ABSOLUTE COUNT (BEAKER) 0.02 K/ L 0.00-0.20 (test code = 417) IMMATURE GRANULOCYTES-RELATIVE 0.90 % 0.00-0.00 H PERCENT (BEAKER) (test code = 2801) POCT-GLUCOSE [id number] 12:43:25 Test Item Value Reference Range Interpretation Comments POC-GLUCOSE METER 174 mg/dL 70-110 H : TESTED A T [address] (BEAKER) ([facility] [address] [facility], = 1538) [place] [address]: Computer Applications Instructor/Techni lisseth ID = [id number] for Katja Coelho Body fluid culture + gram [id number] 09:54:40 Test Item Value Reference Range Interpretation Comments Result (test code = 6463-4) No growth Gram Stain Result (test No organisms seen code = 1123) [facility] [id number] 09:54:40 Test Item Value Reference Range Interpretation Comments CULTURE (BEAKER) (test No growth code = 1095) GRAM STAIN RESULT No White blood cells (BEAKER) (test code = seen 1123) GRAM STAIN RESULT No organisms seen (BEAKER) (test code = 77841) POCT-GLUCOSE [id number] 08:03:25 Test Item Value Reference Range Interpretation Comments POC-GLUCOSE METER 148 mg/dL 70-110 H : TESTED A T [address] (BEAKER) (test code [address], = 1538) [place] [address]: Computer Applications Instructor/Techni lisseth ID = [id number] for Dora Bernard POCT-GLUCOSE [id number] 21:58:03 Test Item Value Reference Range Interpretation Comments POC-GLUCOSE METER 198 mg/dL 70-110 H : TESTED A T [address] (BEAKER) (test code [address], = 1538) [place] [address]: Computer Applications Instructor/Techni lisseth ID = [id number] for Dora Bernard POCT-GLUCOSE [id number] 17:52:15 Test Item Value Reference Range Interpretation Comments POC-GLUCOSE METER 228 mg/dL 70-110 H : TESTED A T [address] (BEAKER) (test code [address], = 1538) [place] [address]: Computer Applications Instructor/Techni lisseth ID = [id number] for Kayli Moreno POCT-GLUCOSE [id number] 11:53:52 Test Item Value Reference Range Interpretation Comments POC-GLUCOSE METER 196 mg/dL 70-110 H : TESTED A T [address] (BEAKER) (test code [address] [facility] = [facility]) [place] [address]: Computer Applications Instructor/Techni lisseth ID = [id number] for Kayli Moreno VANCOMYCIN LEVEL, [id number] 11:14:09 Test Item Value Reference Range Interpretation Comments VANCOMYCIN RANDOM (BEAKER) (test 19.7 ug/mL code = 523) Reference Range: No NormalsOperator ID - [id number] 06:30:49 Test Item Value Reference Range Interpretation Comments POC-GLUCOSE METER 146 mg/dL 70-110 H : TESTED A T [address] (BEAKER) (test code [address] [facility], = 1538) [place] [address]: Computer Applications Instructor/Techni lisseth ID = [id number] for Nancy Retana BASIC METABOLIC [id number] 06:19:05 Test Item Value Reference Range Interpretation Comments SODIUM (BEAKER) 132 meq/L 135-148 L (test code = 381) POTASSIUM 3.6 meq/L 3.6-5.5 Specimen slight ly (BEAKER) (test hemolyzed code = 379) CHLORIDE (BEAKER) 94 meq/L 98-106 L (test code = 382) CO2 (BEAKER) 24 meq/L 20-29 (test code = 355) BLOOD UREA 34 mg/dL 10-26 H NITROGEN (BEAKER) (test code = 354) CREATININE 7.25 mg/dL 0.50-1.20 H Specimen slight ly (BEAKER) (test hemolyzed code = 358) GLUCOSE RANDOM 168 mg/dL 70-110 H (BEAKER) (test code = 652) CALCIUM (BEAKER) 7.4 mg/dL 8.5-10.5 L (test code = 697) EGFR (BEAKER) 5 Interpretatio n of eGFR (test code = [...] not as accur ate as Creatinine Agnieszka gagan in predicting glom erular filtration rate . Estimated GFR is not appl icable for dialysis patien ts Computer Applications Instructor ID - [id number] ID - FETZ61Swggwxcl ID - UVYL35Cotmwpir ID - AWRX03Twcmbmgu ID - HSXZ69Oskhmkhk ID - GTAN57Pqusemub ID - GXQF64Qdvxlvka ID - HEAA53Delseixs ID - BDUP63Lpcrfjfn ID - [id number] 05:50:14 Test Item Value Reference Range Interpretation Comments MAGNESIUM (BEAKER) 1.8 mg/dL 1.5-3.0 Specimen slightly (test code = 627) hemolyzed Computer Applications Instructor ID - [id number] ID - [id number] ID - KJMT37Udwlttep ID - [id number] [id number] 05:47:31 Test Item Value Reference Range Interpretation Comments PHOSPHORUS (BEAKER) 4.0 mg/dL 2.5-4.5 Specimen slightly (test code = 604) hemolyzed Computer Applications Instructor ID - [id number] W/PLT COUNT & AUTO [id number] 05:10:15 Test Item Value Reference Range Interpretation Comments WHITE BLOOD CELL COUNT (BEAKER) 5.8 K/ L 4.0-10.0 (test code = 775) RED BLOOD CELL COUNT (BEAKER) 2.63 M/ L 4.00-5.00 L (test code = 761) HEMOGLOBIN (BEAKER) (test code = 8.2 GM/DL 12.0-15.5 L 410) HEMATOCRIT (BEAKER) (test code = 24.7 % 36.0-46.0 L 411) MEAN CORPUSCULAR VOLUME (BEAKER) 94 fL 82-99 (test code = 753) MEAN CORPUSCULAR HEMOGLOBIN 31.2 pg 27.0-33.0 (BEAKER) (test code = 751) MEAN CORPUSCULAR HEMOGLOBIN CONC 33.2 GM/DL 32.0-36.0 (BEAKER) (test code = 752) RED CELL DISTRIBUTION WIDTH 17.0 % 12.0-15.0 H (BEAKER) (test code = 412) PLATELET COUNT (BEAKER) (test 181 K/CU MM 150-430 code = 756) MEAN PLATELET VOLUME (BEAKER) 8.6 fL 6.0-11.5 (test code = 754) NUCLEATED RED BLOOD CELLS 0 /100 WBC 0-0 (BEAKER) (test code = 413) NEUTROPHILS RELATIVE PERCENT 72 % (BEAKER) (test code = 429) LYMPHOCYTES RELATIVE PERCENT 19 % (BEAKER) (test code = 430) MONOCYTES RELATIVE PERCENT 7 % (BEAKER) (test code = 431) EOSINOPHILS RELATIVE PERCENT 2 % (BEAKER) (test code = 432) BASOPHILS RELATIVE PERCENT 0 % (BEAKER) (test code = 437) NEUTROPHILS ABSOLUTE COUNT 4.17 K/ L 1.80-8.00 (BEAKER) (test code = 670) LYMPHOCYTES ABSOLUTE COUNT 1.07 K/ L 1.48-4.50 L (BEAKER) (test code = 414) MONOCYTES ABSOLUTE COUNT (BEAKER) 0.39 K/ L 0.00-1.30 (test code = 415) EOSINOPHILS ABSOLUTE COUNT 0.09 K/ L 0.00-0.50 (BEAKER) (test code = 416) BASOPHILS ABSOLUTE COUNT (BEAKER) 0.02 K/ L 0.00-0.20 (test code = 417) IMMATURE GRANULOCYTES-RELATIVE 0.90 % 0.00-0.00 H PERCENT (BEAKER) (test code = 2801) POCT-GLUCOSE [id number] 21:12:41 Test Item Value Reference Range Interpretation Comments POC-GLUCOSE METER 245 mg/dL 70-110 H : TESTED A T [facility] [address] (BEAKER) (test code [facility] [address], = 1538) [facility] 77 478: Computer Applications Instructor/Techni lisseth ID = [id number] for Gabriela Otero POCT-GLUCOSE [id number] 15:37:19 Test Item Value Reference Range Interpretation Comments POC-GLUCOSE METER 203 mg/dL 70-110 H : TESTED A T [facility] [address] (BEAKER) (test code [address], = 1538) [facility] 77 478: Computer Applications Instructor/Techni lisseth ID = [id number] for Justyna Mosqueda Body fluid cell count with [id number] 11:12:23 Test Item Value Reference Range Interpretation Comments Appearance (test code Clear Clear = 9335-1) Color (test code = Colorless Colorless, 6824-7) Straw RBCs (test code = 0 See_Comment [Automate d 73727-3) message] The system which generated this result transmitted reference range : <=1 /cu mm. The reference range was not used to interpret this result as normal/abnormal . Adjusted WBC Count 3 See_Comment [Automat ed (test code = 41102-0) messag e] The system which generated this result transmitted reference range : <=5 /cu mm. The reference range was not used to interpret this result as normal/abnormal . Lining Cells (test 0 See_Comment [Automat ed code = 88392-3) message] The system which generated this result transmitted reference range : <=1 /cu mm. The reference range was not used to interpret this result as normal/abnormal . % Segs (test code = 16 % 26952-6) % Lymphs (test code = 20 % 42303-7) % Monos (test code = 64 % 04085-6) % Eos (test code = 0 % 69126-8) % Baso (test code = 0 % 38319-7) Interpretation (test Agree with the code = 97844-2) above count. Negative for malignancy Pathologist: (test Margarita Gardner, code = 2620) M.DDanielle (electronic signature) Container Body Fluid EDTA Tube (test code = 2873) [facility] FLUID CELL COUNT WITH [id number] 11:12:23 Test Item Value Reference Range Interpretation Comments APPEARANCE FLUID Clear Clear (BEAKER) (test code = 510) COLOR FLUID Colorless Colorless, Straw (BEAKER) (test code = 511) RBC FLUID (BEAKER) 0 /cu mm See_Comment [Automat ed (test code = 513) message] T he system which generated this result transmit geeta reference range : <=1. The refere nce range was not u sed to interpret th is result as normal/abnormal . ADJUSTED WBC FLUID 3 /cu mm See_Comment [Automat ed (BEAKER) (test code message] The = 1691) system which generated this result transmit geeta reference range : <=5. The refere nce range was not u sed to interpret th is result as normal/abnormal . LINING CELLS 0 /cu mm See_Comment [Automated (BEAKER) (test code message] The = 1590) system which generated this result transmit geeta reference range : <=1. The refere nce range was not u sed to interpret th is result as normal/abnormal . NEUTROPHILS FLUID 16 % (BEAKER) (test code = 1656) LYMPHS FLUID 20 % (BEAKER) (test code = 488) MONO/MACROPHAGE 64 % FLUID (BEAKER) (test code = 489) EOSINOPHILS FLUID 0 % (BEAKER) (test code = 491) BASO FLUID (BEAKER) 0 % (test code = 492) INTERPRETATION-210 Agree with the (BEAKER) (test code above count. = 2619) Negative for malignancy [id number] Margarita Helekar, 0 (BEAKER) (test M.D. (electronic code = 2620) signature) CONTAINER BODY EDTA Tube FLUID (BEAKER) (test code = 2873) POCT-GLUCOSE [id number] 07:03:20 Test Item Value Reference Range Interpretation Comments POC-GLUCOSE METER 184 mg/dL 70-110 H : TESTED A T [facility] (BEAKER) (test code [address], = 1538) [facility] [place] [address]: Computer Applications Instructor/Techni lisseth ID = [id number] for Gabriela Otero [id number] 07:01:46 Test Item Value Reference Range Interpretation Comments MAGNESIUM (BEAKER) (test code = 1.8 mg/dL 1.5-3.0 627) Computer Applications Instructor ID - [id number] ID - [id number] ID - [id number] ID - [id number] METABOLIC [id number] 07:01:24 Test Item Value Reference Range Interpretation Comments SODIUM (BEAKER) 131 meq/L 135-148 L (test code = 381) POTASSIUM 3.4 meq/L 3.6-5.5 L (BEAKER) (test code = 379) CHLORIDE (BEAKER) 94 meq/L 98-106 L (test code = 382) CO2 (BEAKER) 25 meq/L 20-29 (test code = 355) BLOOD UREA 32 mg/dL 10-26 H NITROGEN (BEAKER) (test code = 354) CREATININE 7.37 mg/dL 0.50-1.20 H (BEAKER) (test code = 358) GLUCOSE RANDOM 188 mg/dL 70-110 H (BEAKER) (test code = 652) CALCIUM (BEAKER) 7.3 mg/dL 8.5-10.5 L (test code = 697) EGFR (BEAKER) 5 Interpretatio n of eGFR (test code = [...] not appl icable for dialysis patien ts Computer Applications Instructor ID - [id number] ID - [id number] ID - [id number] ID - [id number] ID - [id number] ID - [id number] ID - [id number] ID - [id number] ID - [id number] ID - [id number] 06:59:04 Test Item Value Reference Range Interpretation Comments PHOSPHORUS (BEAKER) (test code = 4.3 mg/dL 2.5-4.5 604) Computer Applications Instructor ID - [id number] W/PLT COUNT & AUTO [id number] 06:51:11 Test Item Value Reference Range Interpretation Comments WHITE BLOOD CELL COUNT (BEAKER) 6.2 K/ L 4.0-10.0 (test code = 775) RED BLOOD CELL COUNT (BEAKER) 2.63 M/ L 4.00-5.00 L (test code = 761) HEMOGLOBIN (BEAKER) (test code = 8.2 GM/DL 12.0-15.5 L 410) HEMATOCRIT (BEAKER) (test code = 24.2 % 36.0-46.0 L 411) MEAN CORPUSCULAR VOLUME (BEAKER) 92 fL 82-99 (test code = 753) MEAN CORPUSCULAR HEMOGLOBIN 31.2 pg 27.0-33.0 (BEAKER) (test code = 751) MEAN CORPUSCULAR HEMOGLOBIN CONC 33.9 GM/DL 32.0-36.0 (BEAKER) (test code = 752) RED CELL DISTRIBUTION WIDTH 16.7 % 12.0-15.0 H (BEAKER) (test code = 412) PLATELET COUNT (BEAKER) (test 170 K/CU MM 150-430 code = 756) MEAN PLATELET VOLUME (BEAKER) 8.6 fL 6.0-11.5 (test code = 754) NUCLEATED RED BLOOD CELLS 0 /100 WBC 0-0 (BEAKER) (test code = 413) NEUTROPHILS RELATIVE PERCENT 79 % (BEAKER) (test code = 429) LYMPHOCYTES RELATIVE PERCENT 13 % (BEAKER) (test code = 430) MONOCYTES RELATIVE PERCENT 7 % (BEAKER) (test code = 431) EOSINOPHILS RELATIVE PERCENT 1 % (BEAKER) (test code = 432) BASOPHILS RELATIVE PERCENT 0 % (BEAKER) (test code = 437) NEUTROPHILS ABSOLUTE COUNT 4.84 K/ L 1.80-8.00 (BEAKER) (test code = 670) LYMPHOCYTES ABSOLUTE COUNT 0.77 K/ L 1.48-4.50 L (BEAKER) (test code = 414) MONOCYTES ABSOLUTE COUNT (BEAKER) 0.41 K/ L 0.00-1.30 (test code = 415) EOSINOPHILS ABSOLUTE COUNT 0.08 K/ L 0.00-0.50 (BEAKER) (test code = 416) BASOPHILS ABSOLUTE COUNT (BEAKER) 0.02 K/ L 0.00-0.20 (test code = 417) IMMATURE GRANULOCYTES-RELATIVE 0.60 % 0.00-0.00 H PERCENT (BEAKER) (test code = 2801) POCT-GLUCOSE [id number] 21:41:56 Test Item Value Reference Range Interpretation Comments POC-GLUCOSE METER 217 mg/dL 70-110 H : TESTED A T [facility] (BEAKER) (test code [address], = 1538) [place] [address]: Computer Applications Instructor/Techni lisseth ID = [id number] for Gabriela Otero POCT-GLUCOSE [id number] 18:49:14 Test Item Value Reference Range Interpretation Comments POC-GLUCOSE METER 239 mg/dL 70-110 H : TESTED A T [facility] [address] (BEAKER) (test code [address], = 1538) [place] [address]: Computer Applications Instructor/Techni lisseth ID = [id number] for Elizbaeth Armstrong POCT-GLUCOSE [id number] 18:49:06 Test Item Value Reference Range Interpretation Comments POC-GLUCOSE METER 226 mg/dL 70-110 H : TESTED A T [facility] [address] (BEAKER) (test code [address], = 1538) [place] [address]: Computer Applications Instructor/Techni lisseth ID = [id number] for Elizabeth Armstrong CBC W/PLT COUNT & AUTO [id number] 07:19:11 Test Item Value Reference Range Interpretation Comments WHITE BLOOD CELL COUNT (BEAKER) 6.9 K/ L 4.0-10.0 (test code = 775) RED BLOOD CELL COUNT (BEAKER) 2.64 M/ L 4.00-5.00 L (test code = 761) HEMOGLOBIN (BEAKER) (test code = 8.1 GM/DL 12.0-15.5 L 410) HEMATOCRIT (BEAKER) (test code = 24.5 % 36.0-46.0 L 411) MEAN CORPUSCULAR VOLUME (BEAKER) 93 fL 82-99 (test code = 753) MEAN CORPUSCULAR HEMOGLOBIN 30.7 pg 27.0-33.0 (BEAKER) (test code = 751) MEAN CORPUSCULAR HEMOGLOBIN CONC 33.1 GM/DL 32.0-36.0 (BEAKER) (test code = 752) RED CELL DISTRIBUTION WIDTH 16.6 % 12.0-15.0 H (BEAKER) (test code = 412) PLATELET COUNT (BEAKER) (test 167 K/CU MM 150-430 code = 756) MEAN PLATELET VOLUME (BEAKER) 8.5 fL 6.0-11.5 (test code = 754) NUCLEATED RED BLOOD CELLS 0 /100 WBC 0-0 (BEAKER) (test code = 413) NEUTROPHILS RELATIVE PERCENT 82 % (BEAKER) (test code = 429) LYMPHOCYTES RELATIVE PERCENT 11 % (BEAKER) (test code = 430) MONOCYTES RELATIVE PERCENT 6 % (BEAKER) (test code = 431) EOSINOPHILS RELATIVE PERCENT 1 % (BEAKER) (test code = 432) BASOPHILS RELATIVE PERCENT 0 % (BEAKER) (test code = 437) NEUTROPHILS ABSOLUTE COUNT 5.60 K/ L 1.80-8.00 (BEAKER) (test code = 670) LYMPHOCYTES ABSOLUTE COUNT 0.72 K/ L 1.48-4.50 L (BEAKER) (test code = 414) MONOCYTES ABSOLUTE COUNT (BEAKER) 0.38 K/ L 0.00-1.30 (test code = 415) EOSINOPHILS ABSOLUTE COUNT 0.06 K/ L 0.00-0.50 (BEAKER) (test code = 416) BASOPHILS ABSOLUTE COUNT (BEAKER) 0.01 K/ L 0.00-0.20 (test code = 417) IMMATURE GRANULOCYTES-RELATIVE 1.20 % 0.00-0.00 H PERCENT (BEAKER) (test code = 2801) BASIC METABOLIC [id number] 06:34:01 Test Item Value Reference Range Interpretation Comments SODIUM (BEAKER) 130 meq/L 135-148 L (test code = 381) POTASSIUM 3.7 meq/L 3.6-5.5 Specimen modera tely (BEAKER) (test hemolyzed code = 379) CHLORIDE (BEAKER) 94 meq/L 98-106 L (test code = 382) CO2 (BEAKER) 23 meq/L 20-29 (test code = 355) BLOOD UREA 31 mg/dL 10-26 H NITROGEN (BEAKER) (test code = 354) CREATININE 7.55 mg/dL 0.50-1.20 H Specimen modera tely (BEAKER) (test hemolyzed code = 358) GLUCOSE RANDOM 198 mg/dL 70-110 H (BEAKER) (test code = 652) CALCIUM (BEAKER) 7.5 mg/dL 8.5-10.5 L (test code = 697) EGFR (BEAKER) 5 Interpretatio n of eGFR (test code = [...] not as accur ate as Creatinine Agnieszka gagan in predicting glom erular filtration rate . Estimated GFR is not appl icable for dialysis patien ts Computer Applications Instructor ID - [id number] ID - [id number] ID - [id number] ID - [id number] ID - [id number] ID - [id number] ID - [id number] ID - ZNTR51Rbnxmmzf ID - EURL93Hjburjlw ID - [id number] 06:32:24 Test Item Value Reference Range Interpretation Comments MAGNESIUM (BEAKER) 1.9 mg/dL 1.5-3.0 Specimen moderately (test code = 627) hemolyzed Computer Applications Instructor ID - [id number] ID - [id number] ID - [id number] ID - [id number] 06:29:21 Test Item Value Reference Range Interpretation Comments PHOSPHORUS (BEAKER) 4.4 mg/dL 2.5-4.5 Specimen moderately (test code = 604) hemolyzed Computer Applications Instructor ID - [id number] [id number] 06:25:10 Test Item Value Reference Range Interpretation Comments POC-GLUCOSE METER 183 mg/dL 70-110 H : TESTED A T [facility] [address] (BEAKER) (test code [address], = 1538) [place] [address]: Computer Applications Instructor/Techni lisseth ID = [id number] for Ana Maria Finch POCT-GLUCOSE [id number] 21:02:53 Test Item Value Reference Range Interpretation Comments POC-GLUCOSE METER 185 mg/dL 70-110 H : TESTED A T [facility] [address] (BEAKER) (test code [address], = 1538) [place] [address]: Computer Applications Instructor/Techni lisseth ID = [id number] for Ana Maria Finch, ABDOMEN/KUB 1 VIEW [id number] 17:02:00Reason for exam:->nausea/vomiting [facility] 1940 Sex: FFINALREPORT Abdomen, 1 view. History: Nausea and vomiting. Comparison: 12/09/2021. Findings: There are no dilated loops of bowel. Catheter overlies the right abdomen. There are no abnormal calcifications. The osseous structures are intact. IMPRESSION:Non-specific bowel gas pattern. Signed: David Alamo Verified Date/Time: 02/24/2022 17:02:47 Reading Location: [facility] Reading Room POCT-GLUCOSE [id number] 16:51:52 Test Item Value Reference Range Interpretation Comments POC-GLUCOSE METER 154 mg/dL 70-110 H : TESTED A T [facility] ([place]) (test code [address], = 1538) [place] [address]: Computer Applications Instructor/Techni lisseth ID = [id number] for Sharda Caruso POCT-GLUCOSE [id number] 11:51:50 Test Item Value Reference Range Interpretation Comments POC-GLUCOSE METER 201 mg/dL 70-110 H : [facility] (test code [address], = 1538) [place] [address]: Computer Applications Instructor/Techni lisseth ID = [id number] for Sharda Caruso U/S, ABDOMINAL, [id number] 11:33:00Reason for exam:->nausea/vomiting [facility] 1940 Sex: FFINALREPORT Abdominal ultrasound dated 02/24/2022 Clinical information:nausea/vomiting Comment: Real-time transabdominal ultrasound was performed. Liver is normal in size and measures 14.2 cm in length. The echogenicity of the liver is heterogeneous. No focal lesion is noted in the live r. Spleen is normal in size without focal abnormality. Gallbladder is contracted. No gallstone is present. No biliary dilatation is seen. Common bile duct measures 4 mm in diameter. Main portal vein measures 10 mm in diameter. Pancreas is suboptimal visualized. Right kidney measures 8.1 x 4.1 x 3.7 cm. Left kidney measures 8.5 x 3.6 x 4.2 cm. Echogenicity of both kidney is increased. No hydronephrosis or solid mass seen in either kidney. No cyst is seen in either kidney. No ascites is present in theabdomen. There is trace right pleural effusion. Abdominal aorta is normal in caliber. IVC and Hepatic veins are patent. Impression: 1. Heterogeneous appearing liver without suspicious hepatic mass.2. Atrophic kidneys suggesting medical renal disease. Signed: Keely Butlereport Verified Date/Time: 02/24/2022 11:33:59 VANCOMYCIN LEVEL, [id number] 11:01:47 Test Item Value Reference Range Interpretation Comments VANCOMYCIN TROUGH (BEAKER) (test 24.3 ug/mL 10.0-20.0 H code = 522) Computer Applications Instructor ID - [id number] culture + Shiga [id number] 08:53:08 Test Item Value Reference Range Interpretation Comments Result (test code = No Salmonella, Shigella or 6463-4) Campylobacter isolated [facility] CULTURE + SHIGA [id number] 08:53:08 Test Item Value Reference Range Interpretation Comments CULTURE (BEAKER) No Salmonella, Shigella (test code = 1095) or Campylobacter isolated CBC W/PLT COUNT & AUTO [id number] 06:29:01 Test Item Value Reference Range Interpretation Comments WHITE BLOOD CELL COUNT (BEAKER) 8.4 K/ L 4.0-10.0 (test code = 775) RED BLOOD CELL COUNT (BEAKER) 2.84 M/ L 4.00-5.00 L (test code = 761) HEMOGLOBIN (BEAKER) (test code = 8.6 GM/DL 12.0-15.5 L 410) HEMATOCRIT (BEAKER) (test code = 26.1 % 36.0-46.0 L 411) MEAN CORPUSCULAR VOLUME (BEAKER) 92 fL 82-99 (test code = 753) MEAN CORPUSCULAR HEMOGLOBIN 30.3 pg 27.0-33.0 (BEAKER) (test code = 751) MEAN CORPUSCULAR HEMOGLOBIN CONC 33.0 GM/DL 32.0-36.0 (BEAKER) (test code = 752) RED CELL DISTRIBUTION WIDTH 16.3 % 12.0-15.0 H (BEAKER) (test code = 412) PLATELET COUNT (BEAKER) (test 207 K/CU MM 150-430 code = 756) MEAN PLATELET VOLUME (BEAKER) 8.6 fL 6.0-11.5 (test code = 754) NUCLEATED RED BLOOD CELLS 0 /100 WBC 0-0 (BEAKER) (test code = 413) NEUTROPHILS RELATIVE PERCENT 77 % (BEAKER) (test code = 429) LYMPHOCYTES RELATIVE PERCENT 13 % (BEAKER) (test code = 430) MONOCYTES RELATIVE PERCENT 9 % (BEAKER) (test code = 431) EOSINOPHILS RELATIVE PERCENT 1 % (BEAKER) (test code = 432) BASOPHILS RELATIVE PERCENT 0 % (BEAKER) (test code = 437) NEUTROPHILS ABSOLUTE COUNT 6.50 K/ L 1.80-8.00 (BEAKER) (test code = 670) LYMPHOCYTES ABSOLUTE COUNT 1.05 K/ L 1.48-4.50 L (BEAKER) (test code = 414) MONOCYTES ABSOLUTE COUNT (BEAKER) 0.72 K/ L 0.00-1.30 (test code = 415) EOSINOPHILS ABSOLUTE COUNT 0.04 K/ L 0.00-0.50 (BEAKER) (test code = 416) BASOPHILS ABSOLUTE COUNT (BEAKER) 0.03 K/ L 0.00-0.20 (test code = 417) IMMATURE GRANULOCYTES-RELATIVE 1.00 % 0.00-0.00 H PERCENT (BEAKER) (test code = 2801) [id number] 06:28:51 Test Item Value Reference Range Interpretation Comments MAGNESIUM (BEAKER) (test code = 2.0 mg/dL 1.5-3.0 627) Computer Applications Instructor ID - LITOOperator ID - LITOOperator ID - LITOOperator ID - LITOBASIC METABOLIC [id number] 06:28:45 Test Item Value Reference Range Interpretation Comments SODIUM (BEAKER) 132 meq/L 135-148 L (test code = 381) POTASSIUM 2.9 meq/L 3.6-5.5 L (BEAKER) (test code = 379) CHLORIDE (BEAKER) 93 meq/L 98-106 L (test code = 382) CO2 (BEAKER) 26 meq/L 20-29 (test code = 355) BLOOD UREA 30 mg/dL 10-26 H NITROGEN (BEAKER) (test code = 354) CREATININE 7.21 mg/dL 0.50-1.20 H (BEAKER) (test code = 358) GLUCOSE RANDOM 175 mg/dL 70-110 H (BEAKER) (test code = 652) CALCIUM (BEAKER) 7.6 mg/dL 8.5-10.5 L (test code = 697) EGFR (BEAKER) 5 Interpretatio n of eGFR (test code = [...] not appl icable for dialysis patien ts Computer Applications Instructor ID - LITOOperator ID - LITOOperator ID - LITOOperator ID - LITOOperator ID - LITOOperator ID - LITOOperator ID - LITOOperator ID - LITOOperator ID - LITOOperator ID - [id number] 06:26:14 Test Item Value Reference Range Interpretation Comments PHOSPHORUS (BEAKER) (test code = 3.9 mg/dL 2.5-4.5 604) Computer Applications Instructor ID - LITOPOCT-GLUCOSE [id number] 06:14:25 Test Item Value Reference Range Interpretation Comments POC-GLUCOSE METER 189 mg/dL 70-110 H : TESTED A T [facility] [address] (BEAKER) (test code [address], = 1538) [place] [address]: Computer Applications Instructor/Techni lisseth ID = [id number] for Ana Maria Finch POCT-GLUCOSE [id number] 20:41:20 Test Item Value Reference Range Interpretation Comments POC-GLUCOSE METER 180 mg/dL 70-110 H : TESTED A T [facility] [address] (BEAKER) (test code [address], = 1538) [place] [address]: Computer Applications Instructor/Techni lisseth ID = [id number] for Ana Maria Finch POCT-GLUCOSE [id number] 15:43:17 Test Item Value Reference Range Interpretation Comments POC-GLUCOSE METER 189 mg/dL 70-110 H : TESTED A T [facility] [address] (BEAKER) (test code [address], = 1538) [place] [address]: Computer Applications Instructor/Techni lisseth ID = [id number] for Jigna Latif Shiga Toxin [id number] 13:53:06 Test Item Value Reference Range Interpretation Comments Shiga toxin 1 (test code = Not detected Not detected 56003-9) Shiga toxin 2 (test code = Not detected Not detected 39765-4) Lab Interpretation (test code = Normal 73653-2) [facility] [id number] 13:53:06 Test Item Value Reference Range Interpretation Comments SHIGA TOXIN 1 (BEAKER) (test Not detected Not detected code = 2177) SHIGA TOXIN 2 (BEAKER) (test Not detected Not detected code = 2179) HEMOGLOBIN [id number] 13:23:31 Test Item Value Reference Range Interpretation Comments HEMOGLOBIN A1C (BEAKER) (test code = 6.0 % 4.3-6.1 368) Computer Applications Instructor ID - [id number] [id number] 12:13:11 Test Item Value Reference Range Interpretation Comments POC-GLUCOSE METER 218 mg/dL 70-110 H : TESTED A T [facility] [address] (BEAKER) (test code [address], = 1538) [facility] [address]: Computer Applications Instructor/Techni lisseth ID = [id number] for Jigna Latif STOOL PATH [id number] 09:06:47 Test Item Value Reference Range Interpretation Comments Pathogen exam charged (test code = Done 2381) [facility] [id number] 09:06:47 Test Item Value Reference Range Interpretation Comments PATHOGEN EXAM CHARGED (BEAKER) (test Done code = 2381) VANCOMYCIN LEVEL, [id number] 06:03:32 Test Item Value Reference Range Interpretation Comments VANCOMYCIN RANDOM (BEAKER) (test 24.4 ug/mL code = 523) Reference Range: No NormalsOperator ID - LITOBASIC METABOLIC [id number] 05:57:57 Test Item Value Reference Range Interpretation Comments SODIUM (BEAKER) 133 meq/L 135-148 L (test code = 381) POTASSIUM 3.2 meq/L 3.6-5.5 L (BEAKER) (test code = 379) CHLORIDE (BEAKER) 94 meq/L 98-106 L (test code = 382) CO2 (BEAKER) 25 meq/L 20-29 (test code = 355) BLOOD UREA 30 mg/dL 10-26 H NITROGEN (BEAKER) (test code = 354) CREATININE 7.13 mg/dL 0.50-1.20 H (BEAKER) (test code = 358) GLUCOSE RANDOM 185 mg/dL 70-110 H (BEAKER) (test code = 652) CALCIUM (BEAKER) 7.8 mg/dL 8.5-10.5 L (test code = 697) EGFR (BEAKER) 5 Interpretatio n of eGFR (test code = [...] not as accur ate as Creatinine Agnieszka gagan in predicting glom erular filtration rate . Estimated GFR is not appl icable for dialysis patien ts Computer Applications Instructor ID - LITOOperator ID - LITOOperator ID - LITOOperator ID - LITOOperator ID - LITOOperator ID - LITOOperator ID - LITOOperator ID - LITOOperator ID - LITOOperator ID - [id number] 05:57:10 Test Item Value Reference Range Interpretation Comments MAGNESIUM (BEAKER) (test code = 1.7 mg/dL 1.5-3.0 627) Computer Applications Instructor ID - LITOOperator ID - LITOOperator ID - LITOOperator ID - JUNO [id number] 05:54:04 Test Item Value Reference Range Interpretation Comments PHOSPHORUS (BEAKER) (test code = 4.3 mg/dL 2.5-4.5 604) Computer Applications Instructor ID - LITOCBC (HEMOGRAM ONLY)2022-02-23 05:47:59 Test Item Value Reference Range Interpretation Comments WHITE BLOOD CELL COUNT (BEAKER) 6.2 K/ L 4.0-10.0 (test code = 775) RED BLOOD CELL COUNT (BEAKER) 2.76 M/ L 4.00-5.00 L (test code = 761) HEMOGLOBIN (BEAKER) (test code = 8.6 GM/DL 12.0-15.5 L 410) HEMATOCRIT (BEAKER) (test code = 25.4 % 36.0-46.0 L 411) MEAN CORPUSCULAR VOLUME (BEAKER) 92 fL 82-99 (test code = 753) MEAN CORPUSCULAR HEMOGLOBIN 31.2 pg 27.0-33.0 (BEAKER) (test code = 751) MEAN CORPUSCULAR HEMOGLOBIN CONC 33.9 GM/DL 32.0-36.0 (BEAKER) (test code = 752) RED CELL DISTRIBUTION WIDTH 16.4 % 12.0-15.0 H (BEAKER) (test code = 412) PLATELET COUNT (BEAKER) (test 167 K/CU MM 150-430 code = 756) MEAN PLATELET VOLUME (BEAKER) 8.6 fL 6.0-11.5 (test code = 754) NUCLEATED RED BLOOD CELLS 0 /100 WBC 0-0 (BEAKER) (test code = 413) Clostridium difficile GDH [id number] 22:32:39 Test Item Value Reference Interpretation Comments Range C. Difficle Toxin Positive Negative A (test code = ) C. Difficile GDH Negative Negative i) A low Antigen (test code = percent age of [id number]) specimens may t est negative for antigen but positive for toxin. These samples should be considered indeterminate a nd retested using a fresh specimen. If sample retests negative for antigen but positive for toxin: Result indicates high antibody production agai nst antigen in relapsing patie nts that may bind G DH and cause nonreactive results or less likely cross reaction with C . Sordellii. ID consultation is highly recommended. Continue enteri c isolation in patients with persistent diarrhea until 72 hours after symptoms have resolved. ii) F or confirmation, C . diff Toxin PCR (tcdB nucleic a camilo amplification)t est may be performe d at the request of the physician o r Infection Contr ol. BETH (test code = Testing performed BETH) by [employer] Rapid Cassette Assay. For GDH, published sensitivity of the assay is 98.7% compared to cytotoxicity testing. For Toxin AB, published sensitivity is 87.8% and specificity 99.4% compared to cytotoxicity testing.Verificati on of kit performance was done by the [facility] Microbiology Lab prior to clinical use. Lab Interpretation Abnormal (test code = 49166-1) [facility] DI[facility]ICILE GDH [id number] 22:32:39 Test Item Value Reference Range Interpretation Comments CDT TOXIN (test code Positive Negative A = ) CDT GDH ANTIGEN Negative Negative i) A low per centage of (test code = specimens may t est [id number]) negative for an tigen but positive for to jazmyn. These samples should be considered inde terminate and retested us ing a fresh specimen. If sample retests negativ e for antigen but pos itive for toxin:Result in dicates high antibody p roduction against antigen in relapsing patie nts that may bind GDH an d cause nonreactive res ults or less likely croze cutter helper ss reaction with C . Sordellii. ID consultation is highly recommended. Co ntinue enteric isolati on in patients with p ersistent diarrhea until 72 hours after symptoms have resolved.ii) Fo r confirmation, C . diff Toxin PCR (tcdB nucleic acid amplificat ion)test may be performe d at the request of the physician or Infection Co ntrol. Testing performed by [employer] Rapid Cassette Assay. For GDH, published sensitivity of the assay is 98.7% compared to cytotoxicity testing. For Toxin AB, published sensitivity is 87.8% and specificity 99.4% compared to cytotoxicity testing.Verification of kit performance was done by the [facility] prior to clinical use.POCT-GLUCOSE [id number] 13:23:46 Test Item Value Reference Range Interpretation Comments POC-GLUCOSE METER 160 mg/dL 70-110 H : TESTED A T SLSL 1317 (BEAKER) (test code [facility] [address], = 1538) [place] [id number]: Computer Applications Instructor/Techni lisseth ID = [id number] for Elizabeth Armstrong POCT-GLUCOSE [id number] 07:18:48 Test Item Value Reference Range Interpretation Comments POC-GLUCOSE METER 176 mg/dL 70-110 H : TESTED A T [facility]SL 1317 (BEAKER) (test code [place] [address], = 1538) [place] [id number] 478: Computer Applications Instructor/Techni lisseth ID = [id number] for Katja Coelho BLOOD [id number] 07:01:32 Test Item Value Reference Range Interpretation Comments CULTURE (BEAKER) (test No growth in 5 days code = 1095) BLOOD [id number] 07:01:32 Test Item Value Reference Range Interpretation Comments CULTURE (BEAKER) (test No growth in 5 days code = 1095) BASIC METABOLIC [id number] 05:27:40 Test Item Value Reference Range Interpretation Comments SODIUM (BEAKER) 128 meq/L 135-148 L (test code = 381) POTASSIUM 4.3 meq/L 3.6-5.5 Specimen modera tely (BEAKER) (test hemolyzed code = 379) CHLORIDE (BEAKER) 95 meq/L 98-106 L (test code = 382) CO2 (BEAKER) 20 meq/L 20-29 (test code = 355) BLOOD UREA 33 mg/dL 10-26 H NITROGEN (BEAKER) (test code = 354) CREATININE 6.87 mg/dL 0.50-1.20 H Specimen modera tely (BEAKER) (test hemolyzed code = 358) GLUCOSE RANDOM 181 mg/dL 70-110 H (BEAKER) (test code = 652) CALCIUM (BEAKER) 7.8 mg/dL 8.5-10.5 L (test code = 697) EGFR (BEAKER) 6 Interpretatio n of eGFR (test code = [...] not as accur ate as Creatinine Agnieszka gagan in predicting glom erular filtration rate . Estimated GFR is not appl icable for dialysis patien ts Computer Applications Instructor ID - [id number] ID - UQIRSOXCS412Ramkhqip ID - YIORUHDRB588Jslvtvyz ID - NVAELNYVE191Rsweuasl ID - KVBZLHZIP246Ftfelxgt ID - ISCPWLHLJ833Ycpidlxn ID - XUAWXOBVS676Hylwnwza ID - YROPMOXMK648Drssuyrn ID - HZRXKBJUV581Hkrdevqr ID - AWWURJOJN229Fkepmmdr ID - AUZLFJTOT923Kqwmvxlg ID - FQDTACQHW490Gjvktgwl ID - [id number] (HEMOGRAM ONLY)2022-02-22 05:08:25 Test Item Value Reference Range Interpretation Comments WHITE BLOOD CELL COUNT (BEAKER) 4.6 K/ L 4.0-10.0 (test code = 775) RED BLOOD CELL COUNT (BEAKER) 2.55 M/ L 4.00-5.00 L (test code = 761) HEMOGLOBIN (BEAKER) (test code = 8.0 GM/DL 12.0-15.5 L 410) HEMATOCRIT (BEAKER) (test code = 25.1 % 36.0-46.0 L 411) MEAN CORPUSCULAR VOLUME (BEAKER) 98 fL 82-99 (test code = 753) MEAN CORPUSCULAR HEMOGLOBIN 31.4 pg 27.0-33.0 (BEAKER) (test code = 751) MEAN CORPUSCULAR HEMOGLOBIN CONC 31.9 GM/DL 32.0-36.0 L (BEAKER) (test code = 752) RED CELL DISTRIBUTION WIDTH 17.0 % 12.0-15.0 H (BEAKER) (test code = 412) PLATELET COUNT (BEAKER) (test 117 K/CU MM 150-430 L code = 756) MEAN PLATELET VOLUME (BEAKER) 9.5 fL 6.0-11.5 (test code = 754) NUCLEATED RED BLOOD CELLS 0 /100 WBC 0-0 (BEAKER) (test code = 413) POCT-GLUCOSE [id number] 22:10:50 Test Item Value Reference Range Interpretation Comments POC-GLUCOSE METER 192 mg/dL 70-110 H : TESTED A T [facility] (BEAKER) (test code [facility], = 1538) [place] [id number]: Computer Applications Instructor/Techni lisseth ID = [id number] for Kahlil faisal, Katja POCT-GLUCOSE [id number] 17:06:33 Test Item Value Reference Range Interpretation Comments POC-GLUCOSE METER 132 mg/dL 70-110 H : TESTED A T [facility] (BEAKER) (test code [facility], = 1538) [place] [id number]: Computer Applications Instructor/Techni lisseth ID = [id number] for Dapr emont, Justyna POCT-GLUCOSE [id number] 11:18:35 Test Item Value Reference Range Interpretation Comments POC-GLUCOSE METER 154 mg/dL 70-110 H : TESTED A T [facility] (BEAKER) (test code [facility], = 1538) [place] [address]: Computer Applications Instructor/Techni lisseth ID = [id number] for Justyna Mosqueda PERITONEAL DIALYSIS EFFLUENT [id number] 11:16:21 Test Item Value Reference Range Interpretation Comments CULTURE (BEAKER) ENTEROCOCCUS A From Aerobi c And (test code = 1095) FAECALIS Anaerobic Bottles Enterococcus faecalis Ampicillin (test S code = 26) Ciprofloxacin (test S code = 7) Daptomycin (test S code = 59) Erythromycin (test I code = 4) Gentamicin High S Level Synergy (test code = 241) Levofloxacin (test S code = 22) Linezolid (test code S = 40) Nitrofurantoin (test S code = 23) Streptomycin High S Level Synergy (test code = 242) Tetracycline (test S code = 2) Tigecycline (test S code = 133) Vancomycin (test S code = 13) GRAM STAIN RESULT From aerobic and Previo us result (BEAKER) (test code anaerobic bottles: gr am positive = 1123) gram positive coccobacilli cocci in pairs Corrected report of gram stain to [email or web address]0;POCT-GLUCOSE [id number] 06:30:02 Test Item Value Reference Range Interpretation Comments POC-GLUCOSE METER 138 mg/dL 70-110 H : Notified RN/MD: TESTED (BEAKER) (test code AT [address] = 1538) [facility] [id number] Computer Applications Instructor/Techni lisseth ID = [id number] for Cynthia Lozoya BASIC METABOLIC [id number] 06:18:23 Test Item Value Reference Range Interpretation Comments SODIUM (BEAKER) 129 meq/L 135-148 L (test code = 381) POTASSIUM 3.5 meq/L 3.6-5.5 L (BEAKER) (test code = 379) CHLORIDE (BEAKER) 94 meq/L 98-106 L (test code = 382) CO2 (BEAKER) 23 meq/L 20-29 (test code = 355) BLOOD UREA 33 mg/dL 10-26 H NITROGEN (BEAKER) (test code = 354) CREATININE 6.58 mg/dL 0.50-1.20 H (BEAKER) (test code = 358) GLUCOSE RANDOM 162 mg/dL 70-110 H (BEAKER) (test code = 652) CALCIUM (BEAKER) 7.8 mg/dL 8.5-10.5 L (test code = 697) EGFR (BEAKER) 6 Interpretatio n of eGFR (test code = [...] not as accur ate as Creatinine Agnieszka gagan in predicting glom erular filtration rate . Estimated GFR is not appl icable for dialysis patien ts Computer Applications Instructor ID - LITOOperator ID - LITOOperator ID - LITOOperator ID - LITOOperator ID - LITOOperator ID - LITOOperator ID - LITOOperator ID - LITOOperator ID - LITOOperator ID - LITOOperator ID - LITOOperator ID - LITOOperator ID - LITOCBC (HEMOGRAM ONLY)2022-02-21 05:43:36 Test Item Value Reference Range Interpretation Comments WHITE BLOOD CELL COUNT (BEAKER) 4.7 K/ L 4.0-10.0 (test code = 775) RED BLOOD CELL COUNT (BEAKER) 2.63 M/ L 4.00-5.00 L (test code = 761) HEMOGLOBIN (BEAKER) (test code = 8.1 GM/DL 12.0-15.5 L 410) HEMATOCRIT (BEAKER) (test code = 24.2 % 36.0-46.0 L 411) MEAN CORPUSCULAR VOLUME (BEAKER) 92 fL 82-99 (test code = 753) MEAN CORPUSCULAR HEMOGLOBIN 30.8 pg 27.0-33.0 (BEAKER) (test code = 751) MEAN CORPUSCULAR HEMOGLOBIN CONC 33.5 GM/DL 32.0-36.0 (BEAKER) (test code = 752) RED CELL DISTRIBUTION WIDTH 16.2 % 12.0-15.0 H (BEAKER) (test code = 412) PLATELET COUNT (BEAKER) (test 175 K/CU MM 150-430 code = 756) MEAN PLATELET VOLUME (BEAKER) 9.1 fL 6.0-11.5 (test code = 754) NUCLEATED RED BLOOD CELLS 0 /100 WBC 0-0 (BEAKER) (test code = 413) POCT-GLUCOSE [id number] 20:29:43 Test Item Value Reference Range Interpretation Comments POC-GLUCOSE METER 200 mg/dL 70-110 H : TESTED A T [facility] (BEAKER) (test code [address], = 1538) [place] [address]: Computer Applications Instructor/Techni lisseth ID = [id number] for Sera Latif POCT-GLUCOSE [id number] 19:36:05 Test Item Value Reference Range Interpretation Comments POC-GLUCOSE METER 149 mg/dL 70-110 H : TESTED A T [facility] [address] (BEAKER) (test code [address], = 1538) [place] [address]: Computer Applications Instructor/Techni lisseth ID = [id number] for Sharda Caruso POCT-GLUCOSE [id number] 11:59:00 Test Item Value Reference Range Interpretation Comments POC-GLUCOSE METER 147 mg/dL 70-110 H : TESTED A T [facility] [address] (BEAKER) (test code [address], = 1538) [place] [address]: Computer Applications Instructor/Techni lisseth ID = [id number] for Sharda Caruso POCT-GLUCOSE [id number] 10:04:03 Test Item Value Reference Range Interpretation Comments POC-GLUCOSE METER 161 mg/dL 70-110 H : TESTED A T [facility] (BEAKER) ([facility] [address] [facility], = 15[facility]) [place] [address]: Computer Applications Instructor/Techni lisseth ID = [id number] for Nelli Muller BASIC METABOLIC [id number] 06:14:42 Test Item Value Reference Range Interpretation Comments SODIUM (BEAKER) 129 meq/L 135-148 L (test code = 381) POTASSIUM 3.7 meq/L 3.6-5.5 (BEAKER) (test code = 379) CHLORIDE (BEAKER) 94 meq/L 98-106 L (test code = 382) CO2 (BEAKER) 21 meq/L 20-29 (test code = 355) BLOOD UREA 34 mg/dL 10-26 H NITROGEN (BEAKER) (test code = 354) CREATININE 6.66 mg/dL 0.50-1.20 H (BEAKER) (test code = 358) GLUCOSE RANDOM 172 mg/dL 70-110 H (BEAKER) (test code = 652) CALCIUM (BEAKER) 7.7 mg/dL 8.5-10.5 L (test code = 697) EGFR (BEAKER) 6 Interpretatio n of eGFR (test code = mL/min/1.73 values Stage D escription 1092) sq m Result G1 Iris l [...] not appl icable for dialysis patien ts Computer Applications Instructor ID - [id number] ID - [id number] ID - TZLYOSMSM750Ezeeuhkg ID - TSYTVMOQV708Zpwkibtj ID - MLOSFWBFN498Ldeiepoi ID - RFGDUZORF297Lmcofyoj ID - XCJATZFGL926Nrzoookq ID - EWONMWNOW265Rqjfxfaf ID - BDUHOERCP646Jxgpmjpo ID - [id number] 06:12:44 Test Item Value Reference Range Interpretation Comments MAGNESIUM (BEAKER) (test code = 1.8 mg/dL 1.5-3.0 627) Computer Applications Instructor ID - [id number] ID - QMBOZJCZV456Mbmvmpaj ID - YBMVEUMKQ165Qoyyxeqc ID - [id number]-PQXCHZS [id number] 06:11:02 Test Item Value Reference Range Interpretation Comments POC-GLUCOSE METER 148 mg/dL 70-110 H : Notified RN/MD: TESTED (BEAKER) (test code AT [facility] [address] = 1538) [place] [address]: Computer Applications Instructor/Techni lisseth ID = [id number] for Cynthia Lozoya [id number] 06:09:46 Test Item Value Reference Range Interpretation Comments PHOSPHORUS (BEAKER) (test code = 3.2 mg/dL 2.5-4.5 604) Computer Applications Instructor ID - [id number] W/PLT COUNT & AUTO [id number] 05:52:19 Test Item Value Reference Range Interpretation Comments WHITE BLOOD CELL COUNT (BEAKER) 4.7 K/ L 4.0-10.0 (test code = 775) RED BLOOD CELL COUNT (BEAKER) 2.67 M/ L 4.00-5.00 L (test code = 761) HEMOGLOBIN (BEAKER) (test code = 8.3 GM/DL 12.0-15.5 L 410) HEMATOCRIT (BEAKER) (test code = 24.5 % 36.0-46.0 L 411) MEAN CORPUSCULAR VOLUME (BEAKER) 92 fL 82-99 (test code = 753) MEAN CORPUSCULAR HEMOGLOBIN 31.1 pg 27.0-33.0 (BEAKER) (test code = 751) MEAN CORPUSCULAR HEMOGLOBIN CONC 33.9 GM/DL 32.0-36.0 (BEAKER) (test code = 752) RED CELL DISTRIBUTION WIDTH 16.1 % 12.0-15.0 H (BEAKER) (test code = 412) PLATELET COUNT (BEAKER) (test 171 K/CU MM 150-430 code = 756) MEAN PLATELET VOLUME (BEAKER) 8.9 fL 6.0-11.5 (test code = 754) NUCLEATED RED BLOOD CELLS 0 /100 WBC 0-0 (BEAKER) (test code = 413) NEUTROPHILS RELATIVE PERCENT 72 % (BEAKER) (test code = 429) LYMPHOCYTES RELATIVE PERCENT 14 % (BEAKER) (test code = 430) MONOCYTES RELATIVE PERCENT 11 % (BEAKER) (test code = 431) EOSINOPHILS RELATIVE PERCENT 1 % (BEAKER) (test code = 432) BASOPHILS RELATIVE PERCENT 0 % (BEAKER) (test code = 437) NEUTROPHILS ABSOLUTE COUNT 3.34 K/ L 1.80-8.00 (BEAKER) (test code = 670) LYMPHOCYTES ABSOLUTE COUNT 0.65 K/ L 1.48-4.50 L (BEAKER) (test code = 414) MONOCYTES ABSOLUTE COUNT (BEAKER) 0.51 K/ L 0.00-1.30 (test code = 415) EOSINOPHILS ABSOLUTE COUNT 0.06 K/ L 0.00-0.50 (BEAKER) (test code = 416) BASOPHILS ABSOLUTE COUNT (BEAKER) 0.02 K/ L 0.00-0.20 (test code = 417) IMMATURE GRANULOCYTES-RELATIVE 1.90 % 0.00-0.00 H PERCENT (BEAKER) (test code = 2801) POCT-GLUCOSE [id number] 21:13:33 Test Item Value Reference Range Interpretation Comments POC-GLUCOSE METER 162 mg/dL 70-110 H : TESTED A T [facility] (BEAKER) (test code [address], = 1538) [place] [address]: Computer Applications Instructor/Techni lisseth ID = [id number] for Katja Coelho POCT-GLUCOSE [id number] 20:46:03 Test Item Value Reference Range Interpretation Comments POC-GLUCOSE METER 161 mg/dL 70-110 H : TESTED A T [facility] (BEAKER) (test code [address], = 1538) [place] [address]: Computer Applications Instructor/Techni lisseth ID = [id number] for Bessy Nelson BODY FLUID CELL COUNT WITH [id number] 18:57:42 Test Item Value Reference Range Interpretation Comments APPEARANCE FLUID Hazy Clear A (BEAKER) (test code = 510) COLOR FLUID Yellow Colorless, Straw A (BEAKER) (test code = 511) RBC FLUID (BEAKER) 100 /cu mm See_Comment H [Automat ed (test code = 513) message] T system which generated this result transmitted reference range : <=1. The reference range was not used to interpret this result as normal/abnormal . ADJUSTED WBC FLUID 2021 /cu mm See_Comment H [Automat ed (BEAKER) (test message] The code = 1691) system which generated this result transmitted reference range : <=5. The reference range was not used to interpret this result as normal/abnormal . LINING CELLS 0 /cu mm See_Comment [Automated (BEAKER) (test message] The code = 1590) system which generated this result transmitted reference range : <=1. The reference range was not used to interpret this result as normal/abnormal . NEUTROPHILS FLUID 69 % (BEAKER) (test code = 1656) LYMPHS FLUID 4 % (BEAKER) (test code = 488) MONO/MACROPHAGE 27 % FLUID (BEAKER) (test code = 489) EOSINOPHILS FLUID 0 % (BEAKER) (test code = 491) BASO FLUID 0 % (BEAKER) (test code = 492) INTERPRETATION-210 Acute inflammation (BEAKER) (test seen code = 2619) FWLT-AGRZZBEPIUL-4 Margarita Gardner, 10 (BEAKER) (test M.D. (electronic code = 2620) signature) CONTAINER BODY Sterile Cup FLUID (BEAKER) (test code = 2873) POCT-GLUCOSE [id number] 12:54:55 Test Item Value Reference Range Interpretation Comments POC-GLUCOSE METER 176 mg/dL 70-110 H : TESTED A T [facility] (BEAKER) (test code [address], = 1538) [facility] [place] [address]: Computer Applications Instructor/Techni lisseth ID = [id number] for Bessy eNlson VANCOMYCIN LEVEL, [id number] 09:14:45 Test Item Value Reference Range Interpretation Comments VANCOMYCIN TROUGH (BEAKER) (test 12.5 ug/mL 10.0-20.0 code = 522) Computer Applications Instructor ID - DSENSONOperator ID - [id number] METABOLIC [id number] 08:37:26 Test Item Value Reference Range Interpretation Comments SODIUM (BEAKER) 131 meq/L 135-148 L (test code = 381) POTASSIUM 3.2 meq/L 3.6-5.5 L (BEAKER) (test code = 379) CHLORIDE (BEAKER) 95 meq/L 98-106 L (test code = 382) CO2 (BEAKER) 17 meq/L 20-29 L (test code = 355) BLOOD UREA 30 mg/dL 10-26 H NITROGEN (BEAKER) (test code = 354) CREATININE 6.64 mg/dL 0.50-1.20 H (BEAKER) (test code = 358) GLUCOSE RANDOM 178 mg/dL 70-110 H (BEAKER) (test code = 652) CALCIUM (BEAKER) 7.7 mg/dL 8.5-10.5 L (test code = 697) EGFR (BEAKER) 6 Interpretatio n of eGFR (test code = [...] not as accur ate as Creatinine Agnieszka gagan in predicting glom erular filtration rate . Estimated GFR is not appl icable for dialysis patien ts Computer Applications Instructor ID - DSENSONOperator ID - DSENSONOperator ID - DSENSONOperator ID - DSENSONOperator ID - DSENSONOperator ID - DSENSONOperator ID - DSENSONOperator ID - DSENSONOperator ID - DSENSONOperator ID - [id number] 08:36:58 Test Item Value Reference Range Interpretation Comments MAGNESIUM (BEAKER) (test code = 1.7 mg/dL 1.5-3.0 627) Computer Applications Instructor ID - DSENSONOperator ID - DSENSONOperator ID - DSENSONOperator ID - [id number] 08:34:10 Test Item Value Reference Range Interpretation Comments PHOSPHORUS (BEAKER) (test code = 3.1 mg/dL 2.5-4.5 604) Computer Applications Instructor ID - DSENSONCBC W/PLT COUNT & AUTO [id number] 07:55:19 Test Item Value Reference Range Interpretation Comments WHITE BLOOD CELL COUNT (BEAKER) 4.0 K/ L 4.0-10.0 (test code = 775) RED BLOOD CELL COUNT (BEAKER) 2.70 M/ L 4.00-5.00 L (test code = 761) HEMOGLOBIN (BEAKER) (test code = 8.2 GM/DL 12.0-15.5 L 410) HEMATOCRIT (BEAKER) (test code = 24.8 % 36.0-46.0 L 411) MEAN CORPUSCULAR VOLUME (BEAKER) 92 fL 82-99 (test code = 753) MEAN CORPUSCULAR HEMOGLOBIN 30.4 pg 27.0-33.0 (BEAKER) (test code = 751) MEAN CORPUSCULAR HEMOGLOBIN CONC 33.1 GM/DL 32.0-36.0 (BEAKER) (test code = 752) RED CELL DISTRIBUTION WIDTH 15.7 % 12.0-15.0 H (BEAKER) (test code = 412) PLATELET COUNT (BEAKER) (test 170 K/CU MM 150-430 code = 756) MEAN PLATELET VOLUME (BEAKER) 9.0 fL 6.0-11.5 (test code = 754) NUCLEATED RED BLOOD CELLS 0 /100 WBC 0-0 (BEAKER) (test code = 413) NEUTROPHILS RELATIVE PERCENT 74 % (BEAKER) (test code = 429) LYMPHOCYTES RELATIVE PERCENT 15 % (BEAKER) (test code = 430) MONOCYTES RELATIVE PERCENT 7 % (BEAKER) (test code = 431) EOSINOPHILS RELATIVE PERCENT 1 % (BEAKER) (test code = 432) BASOPHILS RELATIVE PERCENT 0 % (BEAKER) (test code = 437) NEUTROPHILS ABSOLUTE COUNT 2.93 K/ L 1.80-8.00 (BEAKER) (test code = 670) LYMPHOCYTES ABSOLUTE COUNT 0.61 K/ L 1.48-4.50 L (BEAKER) (test code = 414) MONOCYTES ABSOLUTE COUNT (BEAKER) 0.29 K/ L 0.00-1.30 (test code = 415) EOSINOPHILS ABSOLUTE COUNT 0.05 K/ L 0.00-0.50 (BEAKER) (test code = 416) BASOPHILS ABSOLUTE COUNT (BEAKER) 0.01 K/ L 0.00-0.20 (test code = 417) IMMATURE GRANULOCYTES-RELATIVE 2.00 % 0.00-0.00 H PERCENT (BEAKER) (test code = 2801) POCT-GLUCOSE [id number] 06:43:45 Test Item Value Reference Range Interpretation Comments POC-GLUCOSE METER 167 mg/dL 70-110 H : TESTED A T [facility] (BEAKER) (test code [address], = 1538) [place] [address]: Computer Applications Instructor/Techni lisseth ID = [id number] for Nancy Retana POCT-GLUCOSE [id number] 23:09:23 Test Item Value Reference Range Interpretation Comments POC-GLUCOSE METER 198 mg/dL 70-110 H : TESTED A T [facility] (BEAKER) (test code [address], = 1538) [place] [address]: Computer Applications Instructor/Techni lisseth ID = [id number] for SolaRena bishopth POCT-GLUCOSE [id number] 18:55:56 Test Item Value Reference Range Interpretation Comments POC-GLUCOSE METER 204 mg/dL 70-110 H : TESTED A T [facility] (BEAKER) (test code [facility], = 1538) [place] [address]: Computer Applications Instructor/Techni lisseth ID = [id number] for Elizabeth Armstrong HEPATITIS B SURFACE [id number] 11:36:31 Test Item Value Reference Range Interpretation Comments HEPATITIS B SURFACE ANTIBODY < mIU/mL <8.0 (BEAKER) (test code = 647) Computer Applications Instructor ID - BSPOCT-GLUCOSE [id number] 06:21:23 Test Item Value Reference Range Interpretation Comments POC-GLUCOSE METER 203 mg/dL 70-110 H : TESTED A T [facility] ([facility] (test code [facility], = 1538) [place] [address]: Computer Applications Instructor/Techni lisseth ID = [id number] for Panchito morales Trae POCT-GLUCOSE [id number] 06:20:51 Test Item Value Reference Range Interpretation Comments POC-GLUCOSE METER 237 mg/dL 70-110 H : [facility] (test code [facility], = 1538) [place] [address]: Computer Applications Instructor/Techni lisseth ID = [id number] for Ana Maria Finch POCT-GLUCOSE [id number] 05:54:35 Test Item Value Reference Range Interpretation Comments POC-GLUCOSE METER 188 mg/dL 70-110 H : Notified RN/MD: TESTED ([facility]) (test code AT [facility] [address] = 1538) [place] [address]: Computer Applications Instructor/Techni lisseth ID = [id number] for Cynthia Lozoya HEPATITIS B SURFACE [id number] 05:04:05 Test Item Value Reference Range Interpretation Comments HEPATITIS B SURFACE ANTIGEN (2) Nonreactive Nonreactive (BEAKER) (test code = 2585) Computer Applications Instructor ID - LITOBASIC METABOLIC [id number] 05:00:12 Test Item Value Reference Range Interpretation Comments SODIUM (BEAKER) 131 meq/L 135-148 L (test code = 381) POTASSIUM 3.0 meq/L 3.6-5.5 L (BEAKER) (test code = 379) CHLORIDE (BEAKER) 95 meq/L 98-106 L (test code = 382) CO2 (BEAKER) 20 meq/L 20-29 (test code = 355) BLOOD UREA 37 mg/dL 10-26 H NITROGEN (BEAKER) (test code = 354) CREATININE 7.17 mg/dL 0.50-1.20 H (BEAKER) (test code = 358) GLUCOSE RANDOM 216 mg/dL 70-110 H (BEAKER) (test code = 652) CALCIUM (BEAKER) 7.6 mg/dL 8.5-10.5 L (test code = 697) EGFR (BEAKER) 5 Interpretatio n of eGFR (test code = [...] not appl icable for dialysis patien ts Computer Applications Instructor ID - LITOOperator ID - LITOOperator ID - LITOOperator ID - LITOOperator ID - LITOOperator ID - LITOOperator ID - LITOOperator ID - LITOOperator ID - LITOOperator ID - [id number] 04:48:51 Test Item Value Reference Range Interpretation Comments MAGNESIUM (BEAKER) (test code = 1.5 mg/dL 1.5-3.0 627) Computer Applications Instructor ID - LITOOperator ID - LITOOperator ID - LITOOperator ID - JUNO [id number] 04:46:11 Test Item Value Reference Range Interpretation Comments PHOSPHORUS (BEAKER) (test code = 3.3 mg/dL 2.5-4.5 604) Computer Applications Instructor ID - LITOCBC W/PLT COUNT & AUTO [id number] 04:39:55 Test Item Value Reference Range Interpretation Comments WHITE BLOOD CELL COUNT (BEAKER) 4.6 K/ L 4.0-10.0 (test code = 775) RED BLOOD CELL COUNT (BEAKER) 2.42 M/ L 4.00-5.00 L (test code = 761) HEMOGLOBIN (BEAKER) (test code = 7.5 GM/DL 12.0-15.5 L 410) HEMATOCRIT (BEAKER) (test code = 22.5 % 36.0-46.0 L 411) MEAN CORPUSCULAR VOLUME (BEAKER) 93 fL 82-99 (test code = 753) MEAN CORPUSCULAR HEMOGLOBIN 31.0 pg 27.0-33.0 (BEAKER) (test code = 751) MEAN CORPUSCULAR HEMOGLOBIN CONC 33.3 GM/DL 32.0-36.0 (BEAKER) (test code = 752) RED CELL DISTRIBUTION WIDTH 15.8 % 12.0-15.0 H (BEAKER) (test code = 412) PLATELET COUNT (BEAKER) (test 152 K/CU MM 150-430 code = 756) MEAN PLATELET VOLUME (BEAKER) 9.0 fL 6.0-11.5 (test code = 754) NUCLEATED RED BLOOD CELLS 0 /100 WBC 0-0 (BEAKER) (test code = 413) NEUTROPHILS RELATIVE PERCENT 69 % (BEAKER) (test code = 429) LYMPHOCYTES RELATIVE PERCENT 18 % (BEAKER) (test code = 430) MONOCYTES RELATIVE PERCENT 10 % (BEAKER) (test code = 431) EOSINOPHILS RELATIVE PERCENT 1 % (BEAKER) (test code = 432) BASOPHILS RELATIVE PERCENT 0 % (BEAKER) (test code = 437) NEUTROPHILS ABSOLUTE COUNT 3.18 K/ L 1.80-8.00 (BEAKER) (test code = 670) LYMPHOCYTES ABSOLUTE COUNT 0.84 K/ L 1.48-4.50 L (BEAKER) (test code = 414) MONOCYTES ABSOLUTE COUNT (BEAKER) 0.47 K/ L 0.00-1.30 (test code = 415) EOSINOPHILS ABSOLUTE COUNT 0.04 K/ L 0.00-0.50 (BEAKER) (test code = 416) BASOPHILS ABSOLUTE COUNT (BEAKER) 0.02 K/ L 0.00-0.20 (test code = 417) IMMATURE GRANULOCYTES-RELATIVE 1.50 % 0.00-0.00 H PERCENT (BEAKER) (test code = 2721) POCT-GLUCOSE [id number] 18:55:16 Test Item Value Reference Range Interpretation Comments POC-GLUCOSE METER 170 mg/dL 70-110 H : TESTED A T [facility] [address] (BEAKER) (test code [address], = 1538) [place] [id number]: Computer Applications Instructor/Techni lisseth ID = [id number] for Katja Coelho POCT-GLUCOSE [id number] 12:49:25 Test Item Value Reference Range Interpretation Comments POC-GLUCOSE METER 190 mg/dL 70-110 H : TESTED A T [facility] [address] (BEAKER) (test code [address], = 1538) [place] [address]: Computer Applications Instructor/Techni lisseth ID = [id number] for Freda Baker VANCOMYCIN LEVEL, [id number] 12:07:26 Test Item Value Reference Range Interpretation Comments VANCOMYCIN RANDOM (BEAKER) (test 15.4 ug/mL code = 523) Reference Range: No NormalsOperator ID - [id number] 07:06:01 Test Item Value Reference Range Interpretation Comments PROTIME (BEAKER) 12.8 seconds 9.3-12.0 H Final Infor mation (test code = 759) (Auto Outp ut) INR (BEAKER) (test 1.18 See_Comment Final Inf ormation code = 370) (Auto Output) [Automated mess age] The system [employer] generated this result transmitted ref erence range: <=5.90. The reference range was not used to int erpret this result as normal/abnormal . RECOMMENDED COUMADIN/WARFARIN INR THERAPY RANGESSTANDARD DOSE: 2.0 - 3.0 Includes: PROPHYLAXIS for venous thrombosis, systemic embolization; TREATMENT for venous thrombosis and/or pulmonary embolus.HIGH RISK: Target INR is 2.5-3.5 for patients with mechanical heart valves.POCT-GLUCOSE [id number] 06:49:43 Test Item Value Reference Range Interpretation Comments POC-GLUCOSE METER 127 mg/dL 70-110 H : TESTED A T [facility] [address] (BEAKER) (test code [address], = 1538) [place] [address]: Computer Applications Instructor/Techni lisseth ID = [id number] for Ana Mraia Finch HEMOGLOBIN [id number] 04:38:22 Test Item Value Reference Range Interpretation Comments HEMOGLOBIN A1C (BEAKER) (test code = 5.8 % 4.3-6.1 368) Computer Applications Instructor ID - [id number] 04:26:01 Test Item Value Reference Range Interpretation Comments TRIGLYCERIDES (BEAKER) 282 mg/dL Speci men slightly (test code = 540) hemolyzed CHOLESTEROL (BEAKER) 191 mg/dL Specime n slightly (test code = 631) hemolyzed HDL CHOLESTEROL (BEAKER) 32 mg/dL (test code = 976) LDL CHOLESTEROL 103 mg/dL CALCULATED (BEAKER) (test code = 633) Triglyceride Reference Range: Low Risk <150 Borderline 150-199 High Risk 200- 499 Very High Risk >=500Cholesterol Reference Range: Low Risk <200 Borderline 200-239 High Risk >240HDL Cholesterol Reference Range: Low Risk >=60 High Risk <40LDL Cholesterol Reference Range: Optimal <100 Near Optimal 100-129 Borderline 130-159 High 160-189 Very High >=190 Computer Applications Instructor ID - [id number] ID - [id number] ID - [id number] FUNCTION [id number] 04:25:55 Test Item Value Reference Range Interpretation Comments TOTAL PROTEIN (BEAKER) 5.3 gm/dL 6.0-8.5 L Speci men slightly (test code = 770) hemolyzed ALBUMIN (BEAKER) (test 2.6 g/dL 3.5-5.0 L Speci men slightly code = 1145) hemolyzed BILIRUBIN TOTAL 0.4 mg/dL 0.1-1.2 Specimen sli ghtly (BEAKER) (test code = hemoly zed 377) BILIRUBIN DIRECT 0.2 mg/dL 0.0-0.4 Specimen sl ightly (BEAKER) (test code = hemoly zed 706) ALKALINE PHOSPHATASE 66 U/L 30-115 (BEAKER) (test code = 346) AST (SGOT) (BEAKER) 12 U/L 5-40 Specimen slightly (test code = 353) hemolyzed ALT (SGPT) (BEAKER) 9 U/L 5-50 Specimen slightly (test code = 347) hemolyzed Computer Applications Instructor ID - [id number] ID - [id number] ID - [id number] ID - [id number] ID - [id number] ID - [id number] ID - [id number] METABOLIC [id number] 04:25:42 Test Item Value Reference Range Interpretation Comments SODIUM (BEAKER) 130 meq/L 135-148 L (test code = 381) POTASSIUM 3.6 meq/L 3.6-5.5 Specimen slight ly (BEAKER) (test hemolyzed code = 379) CHLORIDE (BEAKER) 95 meq/L 98-106 L (test code = 382) CO2 (BEAKER) 17 meq/L 20-29 L (test code = 355) BLOOD UREA 34 mg/dL 10-26 H NITROGEN (BEAKER) (test code = 354) CREATININE 7.20 mg/dL 0.50-1.20 H Specimen slight ly (BEAKER) (test hemolyzed code = 358) GLUCOSE RANDOM 128 mg/dL 70-110 H (BEAKER) (test code = 652) CALCIUM (BEAKER) 7.4 mg/dL 8.5-10.5 L (test code = 697) EGFR (BEAKER) 5 Interpretatio n of eGFR (test code = mL/min/1.73 values Stage De scription 1092) sq m Result G1 Iris l or high >=90 G2 Mildly decreased 60-89 G3a Mildl y to moderately 45-5 9 G3b Moderately to s everely 30-44 G4 Severl y decreased 15-29 G5 Kidney failure <15Reported eGF R is based on the CKD-EPI 1 equation that d oes not use a race coefficientEsti mated GFR is not as accur ate as Creatinine Agnieszka farah in predicting glom erular filtration rate . Estimated GFR is not appl icable for dialysis patien ts Computer Applications Instructor ID - [id number] ID - [id number] ID - [id number] ID - [id number] ID - [id number] ID - JIET07Xadxgcll ID - [id number] ID - [id number] ID - [id number] ID - [id number] 04:22:35 Test Item Value Reference Range Interpretation Comments MAGNESIUM (BEAKER) 1.5 mg/dL 1.5-3.0 Specimen slightly (test code = 627) hemolyzed Computer Applications Instructor ID - [id number] ID - [id number] ID - [id number] ID - [id number] 04:18:28 Test Item Value Reference Range Interpretation Comments PHOSPHORUS (BEAKER) 3.4 mg/dL 2.5-4.5 Specimen slightly (test code = 604) hemolyzed Computer Applications Instructor ID - [id number] W/PLT COUNT & AUTO [id number] 04:10:29 Test Item Value Reference Range Interpretation Comments WHITE BLOOD CELL COUNT (BEAKER) 6.7 K/ L 4.0-10.0 (test code = 775) RED BLOOD CELL COUNT (BEAKER) 2.60 M/ L 4.00-5.00 L (test code = 761) HEMOGLOBIN (BEAKER) (test code = 8.1 GM/DL 12.0-15.5 L 410) HEMATOCRIT (BEAKER) (test code = 26.4 % 36.0-46.0 L 411) MEAN CORPUSCULAR VOLUME (BEAKER) 102 fL 82-99 H (test code = 753) MEAN CORPUSCULAR HEMOGLOBIN 31.2 pg 27.0-33.0 (BEAKER) (test code = 751) MEAN CORPUSCULAR HEMOGLOBIN CONC 30.7 GM/DL 32.0-36.0 L (BEAKER) (test code = 752) RED CELL DISTRIBUTION WIDTH 15.8 % 12.0-15.0 H (BEAKER) (test code = 412) PLATELET COUNT (BEAKER) (test 158 K/CU MM 150-430 code = 756) MEAN PLATELET VOLUME (BEAKER) 9.3 fL 6.0-11.5 (test code = 754) NUCLEATED RED BLOOD CELLS 0 /100 WBC 0-0 (BEAKER) (test code = 413) NEUTROPHILS RELATIVE PERCENT 83 % (BEAKER) (test code = 429) LYMPHOCYTES RELATIVE PERCENT 11 % (BEAKER) (test code = 430) MONOCYTES RELATIVE PERCENT 5 % (BEAKER) (test code = 431) EOSINOPHILS RELATIVE PERCENT 1 % (BEAKER) (test code = 432) BASOPHILS RELATIVE PERCENT 0 % (BEAKER) (test code = 437) NEUTROPHILS ABSOLUTE COUNT 5.60 K/ L 1.80-8.00 (BEAKER) (test code = 670) LYMPHOCYTES ABSOLUTE COUNT 0.71 K/ L 1.48-4.50 L (BEAKER) (test code = 414) MONOCYTES ABSOLUTE COUNT (BEAKER) 0.33 K/ L 0.00-1.30 (test code = 415) EOSINOPHILS ABSOLUTE COUNT 0.04 K/ L 0.00-0.50 (BEAKER) (test code = 416) BASOPHILS ABSOLUTE COUNT (BEAKER) 0.02 K/ L 0.00-0.20 (test code = 417) IMMATURE GRANULOCYTES-RELATIVE 0.60 % 0.00-0.00 H PERCENT (BEAKER) (test code = 2801) BASIC METABOLIC [id number] 13:28:43 Test Item Value Reference Range Interpretation Comments SODIUM (BEAKER) 130 meq/L 135-148 L (test code = 381) POTASSIUM 3.7 meq/L (BEAKER) (test code = 379) CHLORIDE (BEAKER) 96 meq/L 98-106 L (test code = 382) CO2 (BEAKER) 22 meq/L (test code = 355) BLOOD UREA 33 mg/dL 10-26 H NITROGEN (BEAKER) (test code = 354) CREATININE 7.32 mg/dL 0.50-1.20 H (BEAKER) (test code = 358) GLUCOSE RANDOM 155 mg/dL (BEAKER) (test code = 652) CALCIUM (BEAKER) 7.6 mg/dL 8.5-10.5 L (test code = 697) EGFR (BEAKER) 5 Interpretatio n of eGFR (test code = [...] not appl icable for dialysis patien ts Body fluid culture + gram [id number] 16:12:17 Test Item Value Reference Range Interpretation Comments Result (test code = No growth 6463-4) Gram Stain Result No organisms seen (test code = 1123) BETH (test code = BETH) Culture processed during Downtime in November 2021. [facility] [id number] 16:12:17 Test Item Value Reference Range Interpretation Comments CULTURE (BEAKER) (test code No growth = 1095) GRAM STAIN RESULT (BEAKER) 1+ WBCs (test code = 1123) GRAM STAIN RESULT (BEAKER) No organisms seen (test code = 874134) Culture processed during Downtime in November 2021.POC-Glucose [id number] 10:20:03 Test Item Value Reference Range Interpretation Comments POC-Glucose Meter (test 130 mg/dL 70-110 H : TE STED AT [facility] code = 1538) [address] [place] [address], [facility] 30: Computer Applications Instructor/Techni lisseth ID = [id number] for STOKES, AGLAE Lab Interpretation (test Abnormal code = 49099-6) [facility] [id number] 10:20:03 Test Item Value Reference Range Interpretation Comments POC-Glucose Meter (test 130 mg/dL 70-110 H : TE STED AT [facility] code = 1538) [address] [place] [address], [facility] 30: Computer Applications Instructor/Techni lisseth ID = [id number] for STOKES, AGLAE Lab Interpretation (test Abnormal code = 91580-9) [facility] [id number] 10:20:03 Test Item Value Reference Range Interpretation Comments POC-Glucose Meter (test 130 mg/dL 70-110 H : TE STED AT [facility] code = 1538) [address] [place] [address], [facility] 30: Computer Applications Instructor/Techni lisseth ID = [id number] for STOKES, AGLAE Lab Interpretation (test Abnormal code = 46069-5) [facility] [id number] 10:20:03 Test Item Value Reference Range Interpretation Comments POC-Glucose Meter (test 130 mg/dL 70-110 H : TE STED AT [facility] code = 1538) [address] [place] [address], [facility] 30: Computer Applications Instructor/Techni lisseth ID = [id number] for STOKES, AGLAE Lab Interpretation (test Abnormal code = 41969-1) [facility] [id number] 10:20:03 Test Item Value Reference Range Interpretation Comments POC-Glucose Meter (test 130 mg/dL 70-110 H : TE STED AT [facility] code = 1538) [address] [facility], [facility] 30: Computer Applications Instructor/Techni lisseth ID = [id number] for STOKES, AGLAE Lab Interpretation (test Abnormal code = 68952-8) [facility] [id number] 10:20:03 Test Item Value Reference Range Interpretation Comments POC-GLUCOSE METER 130 mg/dL 70-110 H : TESTED A T [facility] 6720 (BEAKER) (test code = [facility], 1538) [address]: Computer Applications Instructor/Techni lisseth ID = [id number] for HI DALGO, AGLAE BLOOD [id number] 02:59:29 Test Item Value Reference Range Interpretation Comments CULTURE (BEAKER) (test No growth in 5 days code = 1095) BLOOD [id number] 02:59:29 Test Item Value Reference Range Interpretation Comments CULTURE (BEAKER) (test No growth in 5 days code = 1095) The specimen volume collected for this blood culture was below the optimum (10 mL per bottle or 20 mL total). Use of lower volumes may adversely affect recovery and/or detection times of some organisms.POC-Glucose [id number] 18:04:09 Test Item Value Reference Range Interpretation Comments POC-Glucose Meter (test 132 mg/dL 70-110 H : TE STED AT [facility] code = 1538) [address] [place] [address], [facility] 30: Computer Applications Instructor/Techni lisseth ID = [id number] for STOKES, AGLAE Lab Interpretation (test Abnormal code = 39048-8) [facility] [id number] 18:04:09 Test Item Value Reference Range Interpretation Comments POC-GLUCOSE METER 132 mg/dL 70-110 H : TESTED A T [facility] 6720 (BEAKER) (test code = [facility], 1538) [address]: Computer Applications Instructor/Techni lisseth ID = [id number] for HI DALGO, AGLAE POCT-GLUCOSE [id number] 17:37:16 Test Item Value Reference Range Interpretation Comments POC-GLUCOSE METER 162 mg/dL 70-110 H : Notified RN/MD: ([facility]) (test code = TESTED AT [place] [address] 1537) [facility], [address]: Computer Applications Instructor/Techni lisseth ID = [id number] for JAGRUTI PEARCE POCT-GLUCOSE [id number] 17:28:31 Test Item Value Reference Range Interpretation Comments POC-GLUCOSE METER 129 mg/dL 70-110 H : [facility] ([facility]) (test code = [facility], 153) [address]: Computer Applications Instructor/Techni lisseth ID = [id number] for Re otilia, Rowena POCT-GLUCOSE [id number] 17:16:33 Test Item Value Reference Range Interpretation Comments POC-GLUCOSE METER 151 mg/dL 70-110 H : [facility] ([facility]) (test code = [facility], 1537) [address]: Computer Applications Instructor/Techni lisseth ID = [id number] for Re otilia, Rowena POCT-GLUCOSE [id number] 17:04:30 Test Item Value Reference Range Interpretation Comments POC-GLUCOSE METER 128 mg/dL 70-110 H : [facility] ([facility]) (test code = [facility], 1537) [address]: Computer Applications Instructor/Techni lisseth ID = [id number] for Ga ry, Staci POCT-GLUCOSE [id number] 16:41:09 Test Item Value Reference Range Interpretation Comments POC-GLUCOSE METER 149 mg/dL 70-110 H : [facility] ([facility]) (test code = [facility], [facility]) [address]: Computer Applications Instructor/Techni lisseth ID = [id number] for LI MENNIH (V), QUINTON POCT-GLUCOSE [id number] 16:38:03 Test Item Value Reference Range Interpretation Comments POC-GLUCOSE METER 160 mg/dL 70-110 H : [facility] ([facility]) (test code = [facility], 153) [address]: Computer Applications Instructor/Techni lisseth ID = [id number] for WI LMORE, DHAVAL POCT-GLUCOSE [id number] 16:30:30 Test Item Value Reference Range Interpretation Comments POC-GLUCOSE METER 107 mg/dL 70-110 : TESTED A T [facility] 6720 (BEAKER) (test code = [facility], 1538) [address]: Computer Applications Instructor/Techni lisseth ID = [id number] for MANJIT LLIAMS, POCT-GLUCOSE [id number] 16:14:56 Test Item Value Reference Range Interpretation Comments POC-GLUCOSE METER 198 mg/dL 70-110 H : TESTED A T [facility] 6720 (BEAKER) (test code = [facility], 1538) [address]: Computer Applications Instructor/Techni lisseth ID = [id number] for MANJIT LLIAMS, POCT-GLUCOSE [id number] 16:05:04 Test Item Value Reference Range Interpretation Comments POC-GLUCOSE METER 151 mg/dL 70-110 H : TESTED A T [facility] 6720 (BEAKER) (test code = [facility], 1538) [address]: Computer Applications Instructor/Techni lisseth ID = [id number] for MANJIT LLIAMS, GRULLON POCT-GLUCOSE [id number] 15:38:41 Test Item Value Reference Range Interpretation Comments POC-GLUCOSE METER 156 mg/dL 70-110 H : TESTED A T [facility] 6720 (BEAKER) (test code = [facility], 1538) [address]: Computer Applications Instructor/Techni lisseth ID = [id number] for Be llard (contract), Reg hele POCT-GLUCOSE [id number] 15:33:07 Test Item Value Reference Range Interpretation Comments POC-GLUCOSE METER 101 mg/dL 70-110 : TESTED A T [facility] 6720 (BEAKER) (test code = [facility], 1538) [address]: Computer Applications Instructor/Techni lisseth ID = [id number] for WI LLIS, ANNMARIE POCT-GLUCOSE [id number] 15:24:47 Test Item Value Reference Range Interpretation Comments POC-GLUCOSE METER 152 mg/dL 70-110 H : TESTED A T [facility] 6720 (BEAKER) (test code = [facility], 1538) [address]: Computer Applications Instructor/Techni lisseth ID = [id number] for WI LLIS, ANNMARIE POCT-GLUCOSE [id number] 15:22:11 Test Item Value Reference Range Interpretation Comments POC-GLUCOSE METER 158 mg/dL 70-110 H : [facility] ([facility]) (test code = [facility], 153) [address]: Computer Applications Instructor/Techni lisseth ID = [id number] for WI TC, ANNMARIE POCT-GLUCOSE [id number] 15:17:38 Test Item Value Reference Range Interpretation Comments POC-GLUCOSE METER 218 mg/dL 70-110 H : Notified RN/MD: (GONZAL[facility]) (test code = TESTED AT [place] [address] 1537) [facility], [address]: Computer Applications Instructor/Techni lisseth ID = [id number] for DAVID SANTIAGO, JAGRUTI POCT-GLUCOSE [id number] 15:15:09 Test Item Value Reference Range Interpretation Comments POC-GLUCOSE METER 153 mg/dL 70-110 H : [facility] ([facility]) (test code = [facility], 153) [address]: Computer Applications Instructor/Techni lisseth ID = [id number] for Ga ry, Staci POCT-GLUCOSE [id number] 15:13:02 Test Item Value Reference Range Interpretation Comments POC-GLUCOSE METER 160 mg/dL 70-110 H : [facility] ([facility]) (test code = [facility], 153) [address]: Computer Applications Instructor/Techni lisseth ID = [id number] for Ga ry, Staci POCT-GLUCOSE [id number] 15:11:17 Test Item Value Reference Range Interpretation Comments POC-GLUCOSE METER 161 mg/dL 70-110 H : [facility] ([facility]) (test code = [facility], 153) [address]: Computer Applications Instructor/Techni lisseth ID = [id number] for Ga ry, Staci POCT-GLUCOSE [id number] 15:05:53 Test Item Value Reference Range Interpretation Comments POC-GLUCOSE METER 156 mg/dL 70-110 H : Notified RN/MD: ([facility]) (test code = TESTED AT [place] [address] 1537) [facility], [address]: Computer Applications Instructor/Techni lisseth ID = [id number] for DAVID SANTIAGO, JAGRUTI POCT-GLUCOSE [id number] 13:54:33 Test Item Value Reference Range Interpretation Comments POC-GLUCOSE METER 175 mg/dL 70-110 H : TESTED A T [facility] 6720 (BEAKER) (test code = [facility], 1538) [address]: Computer Applications Instructor/Techni lisseth ID = [id number] for Ga ry, Staci POC-Glucose [id number] 13:46:16 Test Item Value Reference Range Interpretation Comments POC-Glucose Meter (test 131 mg/dL 70-110 H : TE STED AT [facility] code = 1538) [address] [facility], 7[address]: Computer Applications Instructor/Techni lisseth ID = [id number] for tSaci Bass Lab Interpretation (test Abnormal code = 74525-7) [facility] [id number] 13:46:16 Test Item Value Reference Range Interpretation Comments POC-GLUCOSE METER 131 mg/dL 70-110 H : TESTED A T [facility] 6720 (BEAKER) (test code = [facility], 1538) [address]: Computer Applications Instructor/Techni lisseth ID = [id number] for Ga ry, Staci POCT-GLUCOSE [id number] 13:37:03 Test Item Value Reference Range Interpretation Comments POC-GLUCOSE METER 158 mg/dL 70-110 H : TESTED A T [facility] 6720 (BEAKER) (test code = [facility], 153) [address]: Computer Applications Instructor/Techni lisseth ID = [id number] for Ga ry, Staci POCT-GLUCOSE [id number] 13:12:27 Test Item Value Reference Range Interpretation Comments POC-GLUCOSE METER 127 mg/dL 70-110 H : TESTED A T [facility] 6720 (BEAKER) (test code = [facility], 1538) [address]: Computer Applications Instructor/Techni lisseth ID = [id number] for Be llard (contract), Reg hele POCT-GLUCOSE [id number] 13:04:15 Test Item Value Reference Range Interpretation Comments POC-GLUCOSE METER 129 mg/dL 70-110 H : TESTED A T [facility] 6720 (BEAKER) (test code = [facility], 1538) [address]: Computer Applications Instructor/Techni lisseth ID = [id number] for Ga ry, Staci POCT-GLUCOSE [id number] 12:49:00 Test Item Value Reference Range Interpretation Comments POC-GLUCOSE METER 137 mg/dL 70-110 H : TESTED A T [facility] 6720 (BEAKER) (test code = [facility], 1538) [address]: Computer Applications Instructor/Techni lisseth ID = [id number] for Ga ry, Staci POCT-GLUCOSE [id number] 12:37:25 Test Item Value Reference Range Interpretation Comments POC-GLUCOSE METER 215 mg/dL 70-110 H : TESTED A T [facility] 6720 (BEAKER) (test code = [facility], [facility]8) [address]: Computer Applications Instructor/Techni lisseth ID = [id number] for Ga ry, Staci POCT-GLUCOSE [id number] 12:12:20 Test Item Value Reference Range Interpretation Comments POC-GLUCOSE METER 195 mg/dL 70-110 H : TESTED A T [facility] 6720 (BEAKER) (test code = [facility], [facility]8) [address]: Computer Applications Instructor/Techni lisseth ID = [id number] for CR ISWELL, TIA POCT-GLUCOSE [id number] 12:04:26 Test Item Value Reference Range Interpretation Comments POC-GLUCOSE METER 179 mg/dL 70-110 H : TESTED A T [facility] 6720 (BEAKER) (test code = [facility], [facility]8) [address]: Computer Applications Instructor/Techni lisseth ID = [id number] for WI LLIS, ANNMARIE POCT-GLUCOSE [id number] 11:52:37 Test Item Value Reference Range Interpretation Comments POC-GLUCOSE METER 167 mg/dL 70-110 H : TESTED A T [facility] 6720 (BEAKER) (test code = [facility], [facility]8) [address]: Computer Applications Instructor/Techni lisseth ID = [id number] for WI LLIS, ANNMARIE POCT-GLUCOSE [id number] 11:39:44 Test Item Value Reference Range Interpretation Comments POC-GLUCOSE METER 166 mg/dL 70-110 H : TESTED A T [facility] 6720 (BEAKER) (test code = [facility], [facility]8) [address]: Computer Applications Instructor/Techni lisseth ID = [id number] for WI LLIS, ANNMARIE POCT-GLUCOSE [id number] 11:17:28 Test Item Value Reference Range Interpretation Comments POC-GLUCOSE METER 160 mg/dL 70-110 H : TESTED A T [facility] 6720 (BEAKER) (test code = [facility], 1538) [address]: Computer Applications Instructor/Techni lisseth ID = [id number] for MOUNIKA HART TIA POCT-GLUCOSE [id number] 11:12:56 Test Item Value Reference Range Interpretation Comments POC-GLUCOSE METER 197 mg/dL 70-110 H : TESTED A T [facility] 6720 (BEAKER) (test code = [facility], 1538) [address]: Computer Applications Instructor/Techni lisseth ID = [id number] for Alberto cook (contract), Lil kit POCT-GLUCOSE [id number] 11:01:52 Test Item Value Reference Range Interpretation Comments POC-GLUCOSE METER 164 mg/dL 70-110 H : TESTED A T [facility] 6720 (BEAKER) (test code = [facility], 1538) [address]: Computer Applications Instructor/Techni lisseth ID = [id number] for Kenendy enan (contract), Hea ther POCT-GLUCOSE [id number] 10:49:57 Test Item Value Reference Range Interpretation Comments POC-GLUCOSE METER 195 mg/dL 70-110 H : TESTED A T [facility] 6720 (BEAKER) (test code = [facility], 1538) 19947: Computer Applications Instructor/Techni lisseth ID = [id number] for Ke enan (contract), Hea ther POCT-GLUCOSE [id number] 10:41:31 Test Item Value Reference Range Interpretation Comments POC-GLUCOSE METER 154 mg/dL 70-110 H : TESTED A T [facility] 6720 (BEAKER) (test code = [facility], 1538) 12577: Computer Applications Instructor/Techni lisseth ID = [id number] for Sa lmeron (contract), Mar catherine POCT-GLUCOSE [id number] 10:37:56 Test Item Value Reference Range Interpretation Comments POC-GLUCOSE METER 164 mg/dL 70-110 H : TESTED A T [facility] 6720 (BEAKER) (test code [facility], = 1538) [address]: Computer Applications Instructor/Techni lisseth ID = [id number] for SUGU , SHEENAMOL POCT-GLUCOSE [id number] 10:03:25 Test Item Value Reference Range Interpretation Comments POC-GLUCOSE METER 113 mg/dL 70-110 H : TESTED A T [facility] 6720 (BEAKER) (test code [facility], = 1538) 28[address]: Computer Applications Instructor/Techni lisseth ID = [id number] for Danl ey (contract), Don inique POCT-GLUCOSE [id number] 09:59:22 Test Item Value Reference Range Interpretation Comments POC-GLUCOSE METER 125 mg/dL 70-110 H : Notified RN/MD: TESTED (BEAKER) (test code AT [facility] [address] [facility] = 1538) [facility], 770 30: Computer Applications Instructor/Techni lisseth ID = [id number] for Yuni almazan (contract), Fernando almaguerine POCT-GLUCOSE [id number] 09:46:18 Test Item Value Reference Range Interpretation Comments POC-GLUCOSE METER 148 mg/dL 70-110 H : TESTED A T [facility] 6720 (BEAKER) (test code [facility], = 1538) [address]: Computer Applications Instructor/Techni lisseth ID = [id number] for Danl ey (contract), Don inique POCT-GLUCOSE [id number] 09:38:39 Test Item Value Reference Range Interpretation Comments POC-GLUCOSE METER 180 mg/dL 70-110 H : TESTED A T [facility] 6720 (BEAKER) (test code [facility], = 1538) [address]: Computer Applications Instructor/Techni lisseth ID = [id number] for Danl ey (contract), Don inique POCT-GLUCOSE [id number] 09:32:31 Test Item Value Reference Range Interpretation Comments POC-GLUCOSE METER 219 mg/dL 70-110 H : TESTED A T [facility] 6720 (BEAKER) (test code [facility], = 1538) 47398: Computer Applications Instructor/Techni lisseth ID = [id number] for SUGU , SHEENAMOL POCT-GLUCOSE [id number] 09:13:11 Test Item Value Reference Range Interpretation Comments POC-GLUCOSE METER 142 mg/dL 70-110 H : TESTED A T [facility] 6720 (BEAKER) (test code [facility], = 1538) [address]: Computer Applications Instructor/Techni lisseth ID = [id number] for SUGU , SHEENAMOL Prepare [id number] 23:54:00 Test Item Value Reference Range Interpretation Comments CROSSMATCH (test code = 2264) COMPATIBLE Unit ABO (test code = A Neg [id number]) UNIT NUMBER (test code = [id number] 934-0) Status (test code = 3353007) TX_TIMEINCHART Blood Bank Product (test code RED BLOOD CELLS = 2263) PRODUCT CODE (test code = [id number] 933-2) [facility] [id number] 23:54:00 Test Item Value Reference Range Interpretation Comments CROSSMATCH (test code = 2264) COMPATIBLE Unit ABO (test code = A Neg [id number]) UNIT NUMBER (test code = [id number] 934-0) Status (test code = 4742120) TX_TIMEINCHART Blood Bank Product (test code RED BLOOD CELLS = 2263) PRODUCT CODE (test code = [id number] 933-2) [id number] 23:54:00 Test Item Value Reference Range Interpretation Comments CROSSMATCH (test code = 2264) COMPATIBLE Unit ABO (test code = A Neg [id number]) UNIT NUMBER (test code = [id number] 934-0) Status (test code = 7797599) TX_TIMEINCHART Blood Bank Product (test code RED BLOOD CELLS = 2263) PRODUCT CODE (test code = [id number] 933-2) [facility] [id number] 23:54:00 Test Item Value Reference Range Interpretation Comments CROSSMATCH (test code = 2264) COMPATIBLE Unit ABO (test code = A Neg [id number]) UNIT NUMBER (test code = [id number] 934-0) Status (test code = 0863982) TX_TIMEINCHART Blood Bank Product (test code RED BLOOD CELLS = 2263) PRODUCT CODE (test code = [id number] 933-2) [facility] [id number] 23:54:00 Test Item Value Reference Range Interpretation Comments CROSSMATCH (test code = 2264) COMPATIBLE Unit ABO (test code = A Neg [id number]) UNIT NUMBER (test code = [id number] 934-0) Status (test code = 8770604) [facility] Blood Bank Product (test code RED BLOOD CELLS = 2263) PRODUCT CODE (test code = P3058N24 933-2) [facility] VIEW [id number] 17:31:009T-54 [facility] 1940 Sex: FFINALREPORT EXAM: KUB COMPARISON: December 04, 2021 CLINICAL HISTORY: Constipation FINDINGS: There is nonobstructive bowel gas pattern with mild retained feces in the colon. There is no gross evidence of pneumoperitoneum. The regional osseous structures are unremarkable. Signed: Ana Roberts MDRep[facility] Verified Date/Time: 12/09/2021 17:31:17 RAD, ABDOMEN/KUB, 1 VIEW [id number] 14:46:00 [facility] 1940 Sex: FFINALREPORT CLINICAL HISTORY: PD Cath Placement TECHNIQUE: Supine abdomen COMPARISON: None IMPRESSION: A peritoneal dialysis catheter projects in the right lower quadrant. The bowel gaspattern is nonspecific. Free air and air- fluid levels are not definitively seen, but cannot be excluded on the supine view. Signed: Janie Crump Verified Date/Time: 12/04/2021 14:46:50 Reading Location: [address] Reading Room 2D Echo W/Doppler(CW/PW/Color) 2021-11-30 12:04:14Ejection [facility] Echo W/Doppler(CW/PW/Color)2021-11-30 12:04:14Ejection FractionSLEH ECHO HEARTLAB [facility]2D Echo W/Doppler(CW/PW/Color)2021-11-30 12:04:14Ejection [facility]ractionSLEH ECHO [facility]ARTLAB [facility]2D Echo W/Doppler(CW/PW/Color) 2021-11-30 12:04:14Ejection [facility]ractionSLEH ECHO HEARTLAB [facility]2D Echo W/Doppler(CW/PW/Color)2021-11-30 12:04:14Ejection [facility]ractionSLEH ECHO HEARTLAB [facility]2D Echo W/Doppler(CW/PW/Color)2021-11-30 12:04:14Ejection [facility]SLEH ECHO [facility]ART[facility]2D Echo W/Doppler(CW/PW/Color) 2021-11-30 12:04:14[facility]jection [facility] [id number] 21:27:48 Test Item Value Reference Range Interpretation Comments POC-GLUCOSE METER 208 mg/dL 70-110 H : TESTED A T [facility] 6720 (GONZALES) (test code = DEION AMIN [place], 1538) 15561: Computer Applications Instructor/Techni lisseth ID = [id number] for Oksana Jensen BASIC METABOLIC [id number] 21:24:43 Test Item Value Reference Range Interpretation [...] not appl icable for dialysis patien ts Computer Applications Instructor ID - ROBERT LLACTIC ACID, [id number] 21:21:15 Test Item Value Reference Range Interpretation Comments LACTATE BLOOD VENOUS 2.94 mmol/L 0.50-2.20 H Specime n moderately (2) (BEAKER) (test hemolyzed code = 2872) Computer Applications Instructor ID - ROBERT LBody fluid cell count with [id number] 19:54:54 Test Item Value Reference Range Interpretation Comments Appearance (test code Slightly Hazy Clear A = 9335-1) Color (test code = Straw Colorless, Straw 6824-7) RBCs (test code = 6 See_Comment H [Automate d 91738-9) message] The system which generated this result transmitted reference range : <=1 /cu mm. The reference range was not used to interpret this result as normal/abnormal . Adjusted WBC Count 295 See_Comment H [Automat ed (test code = 54685-1) messag e] The system which generated this result transmitted reference range : <=5 /cu mm. The reference range was not used to interpret this result as normal/abnormal . Lining Cells (test 3 See_Comment H [Automat ed code = 86110-1) message] The system which generated this result transmitted reference range : <=1 /cu mm. The reference range was not used to interpret this result as normal/abnormal . % Segs (test code = 63 % 98525-4) % Lymphs (test code = 7 % 03836-8) % Monos (test code = 30 % 24418-7) % Eos (test code = 0 % 33609-4) % Baso (test code = 0 % 06201-2) Container Body Fluid Sterile (test code = 2873) Container Lab Interpretation Abnormal (test code = 62660-3) [facility] count with kyczruoehozu2306-75-28 19:54:54 Test Item Value Reference Range Interpretation Comments Appearance (test code Slightly Hazy Clear A = 9335-1) Color (test code = Straw Colorless, Straw 6824-7) RBCs (test code = 6 See_Comment H [Automate d 30802-3) message] The system which generated this result transmitted reference range : <=1 /cu mm. The reference range was not used to interpret this result as normal/abnormal . Adjusted WBC Count 295 See_Comment H [Automat ed (test code = 50564-9) messag e] The system which generated this result transmitted reference range : <=5 /cu mm. The reference range was not used to interpret this result as normal/abnormal . Lining Cells (test 3 See_Comment H [Automat ed code = 45456-9) message] The system which generated this result transmitted reference range : <=1 /cu mm. The reference range was not used to interpret this result as normal/abnormal . % Segs (test code = 63 % 46920-1) % Lymphs (test code = 7 % 79037-2) % Monos (test code = 30 % 63006-2) % Eos (test code = 0 % 90851-2) % Baso (test code = 0 % 17984-9) Container Body Fluid Sterile (test code = 2873) Container Lab Interpretation Abnormal (test code = 48326-7) [facility] with fxohniohigkv3228-46-89 19:54:54 Test Item Value Reference Range Interpretation Comments Appearance (test code Slightly Hazy Clear A = 9335-1) Color (test code = Straw Colorless, Straw 6824-7) RBCs (test code = 6 See_Comment H [Automate d 91663-7) message] The system which generated this result transmitted reference range : <=1 /cu mm. The reference range was not used to interpret this result as normal/abnormal . Adjusted WBC Count 295 See_Comment H [Automat ed (test code = 12919-9) messag e] The system which generated this result transmitted reference range : <=5 /cu mm. The reference range was not used to interpret this result as normal/abnormal . Lining Cells (test 3 See_Comment H [Automat ed code = 08861-9) message] The system which generated this result transmitted reference range : <=1 /cu mm. The reference range was not used to interpret this result as normal/abnormal . % Segs (test code = 63 % 11948-2) % Lymphs (test code = 7 % 92429-1) % Monos (test code = 30 % 43018-7) % Eos (test code = 0 % 25341-9) % Baso (test code = 0 % 64409-4) Container Body Fluid Sterile (test code = 2873) Container Lab Interpretation Abnormal (test code = 84027-3) [facility] count with fdaejjeqlcjw1290-23-03 19:54:54 Test Item Value Reference Range Interpretation Comments Appearance (test code Slightly Hazy Clear A = 9335-1) Color (test code = Straw Colorless, Straw 6824-7) RBCs (test code = 6 See_Comment H [Automate d 93744-5) message] The system which generated this result transmitted reference range : <=1 /cu mm. The reference range was not used to interpret this result as normal/abnormal . Adjusted WBC Count 295 See_Comment H [Automat ed (test code = 49351-5) messag e] The system which generated this result transmitted reference range : <=5 /cu mm. The reference range was not used to interpret this result as normal/abnormal . Lining Cells (test 3 See_Comment H [Automat ed code = 36838-3) message] The system which generated this result transmitted reference range : <=1 /cu mm. The reference range was not used to interpret this result as normal/abnormal . % Segs (test code = 63 % 75828-4) % Lymphs (test code = 7 % 45215-9) % Monos (test code = 30 % 42346-3) % Eos (test code = 0 % 82298-6) % Baso (test code = 0 % 34991-4) Container Body Fluid Sterile (test code = 2873) Container Lab Interpretation Abnormal (test code = 48924-7) [facility] Hospital[facility] count with peqvttppdvfp6080-45-63 19:54:54 Test Item Value Reference Range Interpretation Comments Appearance (test code Slightly Hazy Clear A = 9335-1) Color (test code = Straw Colorless, Straw 6824-7) RBCs (test code = 6 See_Comment H [Automate d 10219-8) message] The system which generated this result transmitted reference range : <=1 /cu mm. The reference range was not used to interpret this result as normal/abnormal . Adjusted WBC Count 295 See_Comment H [Automat ed (test code = 68876-6) messag e] The system which generated this result transmitted reference range : <=5 /cu mm. The reference range was not used to interpret this result as normal/abnormal . Lining Cells (test 3 See_Comment H [Automat ed code = 31400-7) message] The system which generated this result transmitted reference range : <=1 /cu mm. The reference range was not used to interpret this result as normal/abnormal . % Segs (test code = 63 % 53130-1) % Lymphs (test code = 7 % 52427-9) % Monos (test code = 30 % 43782-0) % Eos (test code = 0 % 92455-0) % Baso (test code = 0 % 17807-5) Container Body Fluid Sterile (test code = 2873) Container Lab Interpretation Abnormal (test code = 63733-5) [facility] count with wvlkbjgojulb7106-91-17 19:54:54 Test Item Value Reference Range Interpretation Comments Appearance (test code Slightly Hazy Clear A = 9335-1) Color (test code = Straw Colorless, Straw 6824-7) RBCs (test code = 6 See_Comment H [Automate d 00347-1) message] The system which generated this result transmitted reference range : <=1 /cu mm. The reference range was not used to interpret this result as normal/abnormal . Adjusted WBC Count 295 See_Comment H [Automat ed (test code = 36037-1) messag e] The system which generated this result transmitted reference range : <=5 /cu mm. The reference range was not used to interpret this result as normal/abnormal . Lining Cells (test 3 See_Comment H [Automat ed code = 20922-1) message] The system which generated this result transmitted reference range : <=1 /cu mm. The reference range was not used to interpret this result as normal/abnormal . % Segs (test code = 63 % 02964-8) % Lymphs (test code = 7 % 90416-5) % Monos (test code = 30 % 57462-0) % Eos (test code = 0 % 67448-0) % Baso (test code = 0 % 77260-7) Container Body Fluid Sterile (test code = 2873) Container Lab Interpretation Abnormal (test code = 99987-6) [facility] count with gxvpnjshassv8152-86-74 19:54:54 Test Item Value Reference Range Interpretation Comments Appearance (test code Slightly Hazy Clear A = 9335-1) Color (test code = Straw Colorless, Straw 6824-7) RBCs (test code = 6 See_Comment H [Automate d 39393-2) message] The system which generated this result transmitted reference range : <=1 /cu mm. The reference range was not used to interpret this result as normal/abnormal . Adjusted WBC Count 295 See_Comment H [Automat ed (test code = 83761-1) messag e] The system which generated this result transmitted reference range : <=5 /cu mm. The reference range was not used to interpret this result as normal/abnormal . Lining Cells (test 3 See_Comment H [Automat ed code = 97586-0) message] The system which generated this result transmitted reference range : <=1 /cu mm. The reference range was not used to interpret this result as normal/abnormal . % Segs (test code = 63 % 08268-4) % Lymphs (test code = 7 % 44784-6) % Monos (test code = 30 % 74694-5) % Eos (test code = 0 % 05788-0) % Baso (test code = 0 % 85615-6) Container Body Fluid Sterile (test code = 2873) Container Lab Interpretation Abnormal (test code = 47543-2) [facility] HospitalBODY FLUID CELL COUNT WITH [id number] 19:54:54 Test Item Value Reference Range Interpretation [...] FLUID (BEAKER) (test code = 2873) POCT-GLUCOSE [id number] 16:23:27 Test Item Value Reference Range Interpretation Comments POC-GLUCOSE METER 205 mg/dL 70-110 H : TESTED A T [facility] 6720 (BEAKER) (test code [place], = 1538) [address]: Computer Applications Instructor/Techni lisseth ID = [id number] for Yuni almazan (contract)Fernando BASIC METABOLIC [id number] 14:52:07 Test Item Value Reference Range Interpretation [...] not as accur ate as Creatinine Agnieszka gagan in predicting glom erular filtration rate . Estimated GFR is not appl icable for dialysis patien ts Computer Applications Instructor ID - PICRYSTAL [id number] 14:48:18 Test Item Value Reference Range Interpretation Comments MAGNESIUM (BEAKER) (test code = 2.6 mg/dL 1.6-2.6 627) Computer Applications Instructor ID - ROBERT LLACTIC ACID, [id number] 14:37:53 Test Item Value Reference Range Interpretation Comments LACTATE BLOOD VENOUS 3.19 mmol/L 0.50-2.20 H Specime n moderately (2) (BEAKER) (test hemolyzed code = 2872) Computer Applications Instructor ID - HERON DCALCIUM, [id number] 12:51:45 Test Item Value Reference Range Interpretation Comments CALCIUM IONIZED (BEAKER) (test 1.11 mmol/L 1.12-1.27 L code = 698) PH, BLOOD (BEAKER) (test code = 7.36 1810) T4, [id number] 09:41:16 Test Item Value Reference Range Interpretation Comments FREE T4 (BEAKER) (test code = 655) 0.85 ng/dL 0.70-1.48 Computer Applications Instructor ID - ROBERT LCOMPREHENSIVE METABOLIC [id number] 06:38:33 Test Item Value Reference Range Interpretation [...] not as accur ate as Creatinine Agnieszka gagan in predicting glom erular filtration rate . Estimated GFR is not appl icable for dialysis patien ts Computer Applications Instructor ID - ROBERT [id number] 05:59:27 Test Item Value Reference Range Interpretation Comments MAGNESIUM (BEAKER) (test code = 1.6 mg/dL 1.6-2.6 627) Computer Applications Instructor ID Cesar JONES [id number] 05:59:27 Test Item Value Reference Range Interpretation Comments PHOSPHORUS (BEAKER) (test code = 7.6 mg/dL 2.3-4.7 H 604) Computer Applications Instructor ID Cesar JONES LTSH/FREE T4 IF [id number] 05:54:49 Test Item Value Reference Range Interpretation Comments THYROID STIMULATING HORMONE 5.804 uIU/mL 0.350-4.940 H (BEAKER) (test code = 772) Computer Applications Instructor ID Cesar JONES LCALCIUM, [id number] 05:42:26 Test Item Value Reference Range Interpretation Comments CALCIUM IONIZED (BEAKER) (test 0.99 mmol/L 1.12-1.27 L code = 698) PH, BLOOD (BEAKER) (test code = 7.38 1810) B-TYPE NATRIURETIC FACTOR (BNP)2021-11-29 05:35:37 Test Item Value Reference Range Interpretation Comments B-TYPE NATRIURETIC PEPTIDE (BEAKER) 198 pg/mL 0-100 H (test code = 700) Computer Applications Instructor ID - ROBERT LKETONE, [id number] 05:30:26 Test Item Value Reference Range Interpretation Comments KETONES, BLOOD (BEAKER) (test code 0.3 mmol/L <0.4 = 1103) CBC W/PLT COUNT & AUTO [id number] 04:56:25 Test Item Value Reference Range Interpretation [...] = 2801) RAD, CHEST, 1 VIEW, NON [id number] 04:24:00Reason for exam:->possible infectionShould this be performed at the bedside?->Yes [facility] 1940 Sex: FFINALREPORT History: [...] with Stas Lyles, the ICU physician's assistant terminal manager in care of the patient, at 0420 hours on 11/29/2021 Signed: Mara Mata Verified Date/Time: 11/29/2021 04:24:39 POC glucose 2021-04-16 17:47:43 Test Item Value Reference Range Interpretation Comments POC glucose (test code = 195 mg/dL 65-99 H Ope rator Name: 27897-9) Carlota Linda ID: [id number] able : HMW Notified bilingual interpreter Interpretation (test Abnormal code = 06783-1) [facility]2022-02-17 17:47:43 Test Item Value Reference Range Interpretation Comments POC glucose (test code = 195 mg/dL 65-99 H Ope rator Name: 21517-5) Uwbela Kanvice ID: [id number] able : HMW Notified bilingual interpreter Interpretation (test Abnormal code = 33401-0) [facility]2022-02-17 17:47:43 Test Item Value Reference Range Interpretation Comments POC glucose (test code = 195 mg/dL 65-99 H Ope rator Name: 97322-6) Carlota Kanvice ID: [id number] able : HMW Notified bilingual interpreter Interpretation (test Abnormal code = 53133-6) [facility]2022-02-17 17:47:43 Test Item Value Reference Range Interpretation Comments POC glucose (test code = 195 mg/dL 65-99 H Ope rator Name: 66217-5) Uwbela Kanvice ID: [id number] able : HMW Notified bilingual interpreter Interpretation (test Abnormal code = 83199-6) [facility]2022-02-17 17:47:43 Test Item Value Reference Range Interpretation Comments POC glucose (test code = 195 mg/dL 65-99 H Ope rator Name: 04379-7) Uwbela Kanvice ID: [id number] able : HMW Notified bilingual interpreter Interpretation (test Abnormal code = 28027-1) [facility]2022-02-17 17:47:43 Test Item Value Reference Range Interpretation Comments POC glucose (test code = 195 mg/dL 65-99 H Ope rator Name: 24923-7) Uwbela Kanvice ID: [id number] able : HMW Notified bilingual interpreter Interpretation (test Abnormal code = 49256-6) [facility]2022-02-17 17:47:43 Test Item Value Reference Range Interpretation Comments POC glucose (test code = 195 mg/dL 65-99 H Ope rator Name: 58883-9) Orajaniya Lucy Kanvice ID: [id number] able : HMW Notified bilingual interpreter Interpretation (test Abnormal code = 80939-9) [facility]2022-02-17 17:47:43 Test Item Value Reference Range Interpretation Comments POC glucose (test code = 195 mg/dL 65-99 H Ope rator Name: 23648-7) Uwbela Kanvice ID: [id number] able : HMW Notified bilingual interpreter Interpretation (test Abnormal code = 79717-6) [facility]2022-02-17 17:47:43 Test Item Value Reference Range Interpretation Comments POC glucose (test code = 195 mg/dL 65-99 H Ope rator Name: 65251-9) Uwmariela Lucy Kanvice ID: [id number] able : HMW Notified bilingual interpreter Interpretation (test Abnormal code = 40357-5) [facility]2022-02-17 17:47:43 Test Item Value Reference Range Interpretation Comments POC glucose (test code = 195 mg/dL 65-99 H Ope rator Name: 77798-7) Uwbela Kanvice ID: [id number] able : HMW Notified bilingual interpreter Interpretation (test Abnormal code = 73794-5) [facility]2022-02-17 17:47:43 Test Item Value Reference Range Interpretation Comments POC glucose (test code = 195 mg/dL 65-99 H Ope rator Name: 19970-3) Uwbela Kanvice ID: [id number] able : HMW Notified bilingual interpreter Interpretation (test Abnormal code = 03695-2) [facility] [Presence] in Respiratory specimen by CHANTEL with probe [id number] 00:53:01 Test Item Value Reference Range Interpretation Comments SARS-CoV-2 (COVID-19) RNA [Presence] Detected Not-Detected in Respiratory specimen by CHANTEL with probe detection (test code = 21399-3) 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 (test code = 51064-8) Whether the patient has symptoms related to condition of interest (test code = 37554-7) Patient was hospitalized because of this condition (test code = 48816-3) Whether the patient was admitted to intensive care unit (ICU) for condition of interest (test code = 96443-1) Whether patient resides in a congregate care setting (test code = 31328-0) [facility] and [id number] 20:47:00 Test Item Value Reference Range Interpretation Comments ABO grouping (test code = 883-9) A Rh type (test code = 37462-2) NEG Antibody screen (gel) (test code = NEG 890-4) [facility] and [id number] 20:47:00 Test Item Value Reference Range Interpretation Comments ABO grouping (test code = 883-9) A Rh type (test code = 66593-7) NEG Antibody screen (gel) (test code = NEG 890-4) [facility] and [id number] 20:47:00 Test Item Value Reference Range Interpretation Comments ABO grouping (test code = 883-9) A Rh type (test code = 48110-4) NEG Antibody screen (gel) (test code = NEG 890-4) [facility] and [id number] 20:47:00 Test Item Value Reference Range Interpretation Comments ABO grouping (test code = 883-9) A Rh type (test code = 73901-6) NEG Antibody screen (gel) (test code = NEG 890-4) [facility] and [id number] 20:47:00 Test Item Value Reference Range Interpretation Comments ABO grouping (test code = 883-9) A Rh type (test code = 98211-5) NEG Antibody screen (gel) (test code = NEG 890-4) [facility] and [id number] 20:47:00 Test Item Value Reference Range Interpretation Comments ABO grouping (test code = 883-9) A Rh type (test code = 94228-3) NEG Antibody screen (gel) (test code = NEG 890-4) [facility] and [id number] 20:47:00 Test Item Value Reference Range Interpretation Comments ABO grouping (test code = 883-9) A Rh type (test code = 17745-1) NEG Antibody screen (gel) (test code = NEG 890-4) [facility] [id number] 20:47:00 Test Item Value Reference Range Interpretation Comments ABO grouping (test code = 883-9) A Rh type (test code = 70051-4) NEG Antibody screen (gel) (test code = NEG 890-4) [facility] [id number] 20:47:00 Test Item Value Reference Range Interpretation Comments ABO grouping (test code = 883-9) A Rh type (test code = 63747-1) NEG Antibody screen (gel) (test code = NEG 890-4) [facility] qlagbp8072-29-16 20:47:00 Test Item Value Reference Range Interpretation Comments ABO grouping (test code = 883-9) A Rh type (test code = 90863-9) NEG Antibody screen (gel) (test code = NEG 890-4) [facility] dvduup6295-41-29 20:47:00 Test Item Value Reference Range Interpretation Comments ABO grouping (test code = 883-9) A Rh type (test code = 90445-4) NEG Antibody screen (gel) (test code = NEG 890-4) [facility] 12 [id number] 20:31:34 Test Item Value Reference Range Interpretation Comments Ventricular rate (test code = 253) Atrial rate (test code = 255) DC interval (test code = 266) QRSD interval [...] available-Electronicall y Signed By Catrachita Crump MD ([id number]) on 04/07/2021 2:31:33 PM [facility] 12 [id number] 20:31:34 Test Item Value Reference Range Interpretation Comments Ventricular rate (test code = 253) Atrial rate (test code = 255) DC interval (test code = 266) QRSD interval [...] y Signed By Catrachita Crump MD Min ([id number]) on 04/07/2021 2:31:33 PM [facility] 12 [id number] 20:31:34 Test Item Value Reference Range Interpretation Comments Ventricular rate (test code = 253) Atrial rate (test code = 255) DC interval (test code = 266) QRSD interval [...] y Signed By Catrachita Crump MD Min ([id number]) on 04/07/2021 2:31:33 PM [place] [address] ovjr9340-33-23 20:31:34 Test Item Value Reference Range Interpretation Comments Ventricular rate (test code = 253) Atrial rate (test code = 255) DC interval (test code = 266) QRSD interval [...] y Signed By Catrachita Crump MD Min ([id number]) on 04/07/2021 2:31:33 PM [place] [address] dcwi0207-46-93 20:31:34 Test Item Value Reference Range Interpretation Comments Ventricular rate (test code = 253) Atrial rate (test code = 255) DC interval (test code = 266) QRSD interval [...] available-Electronicall y Signed By Catrachita Crump MD ([id number]) on 04/07/2021 2:31:33 PM [facility] 12 aqzf9979-99-03 20:31:34 Test Item Value Reference Range Interpretation Comments Ventricular rate (test code = 253) Atrial rate (test code = 255) DC interval (test code = 266) QRSD interval [...] y Signed By Catrachita Crump MD Min ([id number]) on 04/07/2021 2:31:33 PM [facility] 12 [id number] 20:31:34 Test Item Value Reference Range Interpretation Comments Ventricular rate (test code = 253) Atrial rate (test code = 255) DC interval (test code = 266) QRSD interval [...] y Signed By Catrachita Crump MD Min ([id number]) on 04/07/2021 2:31:33 PM [facility] 12 [id number] 20:31:34 Test Item Value Reference Range Interpretation Comments Ventricular rate (test code = 253) Atrial rate (test code = 255) DC interval (test code = 266) QRSD interval [...] available-Electronicall y Signed By Catrachita Crump MD ([id number]) on 04/07/2021 2:31:33 PM [facility] 12 [id number] 20:31:34 Test Item Value Reference Range Interpretation Comments Ventricular rate (test code = 253) Atrial rate (test code = 255) DC interval (test code = 266) QRSD interval [...] available-Electronicall y Signed By Catrachita Crump MD ([id number]) on 04/07/2021 2:31:33 PM [facility] 12 [id number] 20:31:34 Test Item Value Reference Range Interpretation Comments Ventricular rate (test code = 253) Atrial rate (test code = 255) DC interval (test code = 266) QRSD interval [...] y Signed By Catrachita Crump MD Min ([id number]) on 04/07/2021 2:31:33 PM [facility] 12 [id number] 20:31:34 Test Item Value Reference Range Interpretation Comments Ventricular rate (test code = 253) Atrial rate (test code = 255) DC interval (test code = 266) QRSD interval [...] available-Electronicall y Signed By Catrachita Crump MD ([id number]) on 04/07/2021 2:31:33 PM [facility] fresh frozen [id number] 23:17:00 Test Item Value Reference Range Interpretation Comments Product name (test code Plasma frz w/in 24hrs = 25) thaw Unit number (test code = [id number]) Product code (test code B8200V73 = 3092) Dispense status (test Returned to BB not code = 24) transfused Blood expiration date (test code = 302) Blood type code (test code = 308) Blood type (test code = A POSITIVE 1314) Compatibility (test code Not required = 6400) [facility] fresh frozen [id number] 23:17:00 Test Item Value Reference Range Interpretation Comments Product name (test code Plasma frz w/in 24hrs = 25) thaw Unit number (test code = [id number]) Product code (test code B4453Z20 = 3092) Dispense status (test Returned to BB not code = 24) transfused Blood expiration date (test code = 302) Blood type code (test code = 308) Blood type (test code = A POSITIVE 1314) Compatibility (test code Not required = 6400) [facility] fresh frozen [id number] 23:17:00 Test Item Value Reference Range Interpretation Comments Product name (test code Plasma frz w/in 24hrs = 25) thaw Unit number (test code = [id number] [id number]) Product code (test code B1764W32 = 3092) Dispense status (test Returned to BB not code = 24) transfused Blood expiration date (test code = 302) Blood type code (test code = 308) Blood type (test code = A POSITIVE 1314) Compatibility (test code Not required = 6400) [facility] fresh frozen [id number] 23:17:00 Test Item Value Reference Range Interpretation Comments Product name (test code Plasma frz w/in 24hrs = 25) thaw Unit number (test code = [id number]) Product code (test code W8913A49 = 3092) Dispense status (test Returned to BB not code = 24) transfused Blood expiration date (test code = 302) Blood type code (test code = 308) Blood type (test code = A POSITIVE 1314) Compatibility (test code Not required = 6400) [facility] fresh frozen [id number] 23:17:00 Test Item Value Reference Range Interpretation Comments Product name (test code Plasma frz w/in 24hrs = 25) thaw Unit number (test code = [id number]) Product code (test code W6434W68 = 3092) Dispense status (test Returned to BB not code = 24) transfused Blood expiration date (test code = 302) Blood type code (test code = 308) Blood type (test code = A POSITIVE 1314) Compatibility (test code Not required = 6400) [facility] fresh frozen [id number] 23:17:00 Test Item Value Reference Range Interpretation Comments Product name (test code Plasma frz w/in 24hrs = 25) thaw Unit number (test code = [id number] 9721654) Product code (test code F7074C63 = 3092) Dispense status (test Returned to BB not code = 24) transfused Blood expiration date (test code = 302) Blood type code (test code = 308) Blood type (test code = A POSITIVE 1314) Compatibility (test code Not required = 6400) [facility] fresh frozen [id number] 23:17:00 Test Item Value Reference Range Interpretation Comments Product name (test code Plasma frz w/in 24hrs = 25) thaw Unit number (test code = [id number]) Product code (test code Y7323I08 = 3092) Dispense status (test Returned to BB not code = 24) transfused Blood expiration date (test code = 302) Blood type code (test code = 308) Blood type (test code = A POSITIVE 1314) Compatibility (test code Not required = 6400) [facility] [id number] 23:17:00 Test Item Value Reference Range Interpretation Comments Product name (test code Plasma frz w/in 24hrs = 25) thaw Unit number (test code = [id number] [id number]) Product code (test code W9243G60 = 3092) Dispense status (test Returned to BB not code = 24) transfused Blood expiration date (test code = 302) Blood type code (test code = 308) Blood type (test code = A POSITIVE 1314) Compatibility (test code Not required = 6400) [facility] fresh frozen [id number] 23:17:00 Test Item Value Reference Range Interpretation Comments Product name (test code Plasma frz w/in 24hrs = 25) thaw Unit number (test code = [id number]) Product code (test code V7237J43 = 3092) Dispense status (test Returned to BB not code = 24) transfused Blood expiration date (test code = 302) Blood type code (test code = 308) Blood type (test code = A POSITIVE 1314) Compatibility (test code Not required = 6400) [facility] fresh frozen [id number] 23:17:00 Test Item Value Reference Range Interpretation Comments Product name (test code Plasma frz w/in 24hrs = 25) thaw Unit number (test code = [id number]) Product code (test code U6993W62 = 3092) Dispense status (test Returned to BB not code = 24) transfused Blood expiration date (test code = 302) Blood type code (test code = 308) Blood type (test code = A POSITIVE 1314) Compatibility (test code Not required = 6400) [facility] fresh frozen [id number] 23:17:00 Test Item Value Reference Range Interpretation Comments Product name (test code Plasma frz w/in 24hrs = 25) thaw Unit number (test code = [id number]) Product code (test code X7339O73 = 3092) Dispense status (test Returned to BB not code = 24) transfused Blood expiration date (test code = 302) Blood type code (test code = 308) Blood type (test code = A POSITIVE 1314) Compatibility (test code Not required = 6400) [facility] [id number] 22:03:23 Test Item Value Reference Range Interpretation Comments Activated clotting time See_Comment Oper ator Name: Makc (test code = 5298) Eric Ruby rDevice ID: [id number] [Autom ated message] The sy stem which generated this result transmitted ref erence range: 96 - 152 sec. The reference range was not used to interpr et this result as normal/abnormal . [facility] [id number] 22:03:23 Test Item Value Reference Range Interpretation Comments Activated clotting time See_Comment Oper ator Name: Mack (test code = 5298) Eric Ruby rDevice ID: [id number] [Autom ated message] The sy stem which generated this result transmitted ref erence range: 96 - 152 sec. The reference range was not used to interpr et this result as normal/abnormal . [facility] [id number] 22:03:23 Test Item Value Reference Range Interpretation Comments Activated clotting time See_Comment Oper ator Name: Mack (test code = 5298) Eric Ruby rDevice ID: [id number] [Autom ated message] The sy stem which generated this result transmitted ref erence range: 96 - 152 sec. The reference range was not used to interpr et this result as normal/abnormal . [facility] [id number] 22:03:23 Test Item Value Reference Range Interpretation Comments Activated clotting time See_Comment Oper ator Name: Mack (test code = 5298) Reyes J rDevice ID: [id number] [Autom ated message] The sy stem which generated this result transmitted ref erence range: 96 - 152 sec. The reference range was not used to interpr et this result as normal/abnormal . [facility] [id number] 22:03:23 Test Item Value Reference Range Interpretation Comments Activated clotting time See_Comment Oper ator Name: Mack (test code = 5298) Reyes J rDevice ID: [id number] [Autom ated message] The sy stem which generated this result transmitted ref erence range: 96 - 152 sec. The reference range was not used to interpr et this result as normal/abnormal . [facility] [id number] 22:03:23 Test Item Value Reference Range Interpretation Comments Activated clotting time See_Comment Oper ator Name: Mack (test code = 5298) Eirc Beltran rDevice ID: [id number] [Autom ated message] The sy stem which generated this result transmitted ref erence range: 96 - 152 sec. The reference range was not used to interpr et this result as normal/abnormal . [facility] [id number] 22:03:23 Test Item Value Reference Range Interpretation Comments Activated clotting time See_Comment Oper ator Name: Mack (test code = 5298) Eric Ruby rDevice ID: [id number] [Autom ated message] The sy stem which generated this result transmitted ref erence range: 96 - 152 sec. The reference range was not used to interpr et this result as normal/abnormal . [facility] [id number] 22:03:23 Test Item Value Reference Range Interpretation Comments Activated clotting time See_Comment Oper ator Name: Mack (test code = 5298) Eric Beltran rDevice ID: [id number] [Autom ated message] The sy stem which generated this result transmitted ref erence range: 96 - 152 sec. The reference range was not used to interpr et this result as normal/abnormal . [facility] [id number] 22:03:23 Test Item Value Reference Range Interpretation Comments Activated clotting time See_Comment Oper ator Name: Mack (test code = 5298) Eric Beltran rDevice ID: [id number] [Autom ated message] The sy stem which generated this result transmitted ref erence range: 96 - 152 sec. The reference range was not used to interpr et this result as normal/abnormal . [facility] [id number] 22:03:23 Test Item Value Reference Range Interpretation Comments Activated clotting time See_Comment Oper ator Name: Mack (test code = 5298) Eric Beltran rDevice ID: [id number] [Autom ated message] The sy stem which generated this result transmitted ref erence range: 96 - 152 sec. The reference range was not used to interpr et this result as normal/abnormal . [facility] [id number] 22:03:23 Test Item Value Reference Range Interpretation Comments Activated clotting time See_Comment Oper ator Name: Mack (test code = 5298) Eric Beltran rDevice ID: [id number] [Autom ated message] The sy stem which generated this result transmitted ref erence range: 96 - 152 sec. The reference range was not used to interpr et this result as normal/abnormal . [facility] blood gas, arterial and oeqns9831-70-80 22:02:14 Test Item Value Reference Range Interpretation Comments pH, arterial, POC 7.35-7.45 L (test code = 2744-1) pCO2, arterial, POC See_Comment H [Automa geeta message] (test code = 2018-) The sys tem which generated this result [...] = 2025-3) O2 saturation, 100 % 95-100 Computer Applications Instructor Name : Shine arterial, POC (test Quin vice ID: code = 2708-6) [id number] POC sodium (test code 141 mmol/L 135-148 = 2947-0) POC potassium (test 4.8 mmol/L 3.5-5.0 code = 6298-4) POC hematocrit (test 24 % 37-47 L code = 4544-3) POC glucose (test code 164 mg/dL 65-99 H = 2339-0) Ionized calcium, 1.05 mmol/L 1.11-1.32 L arterial, POC (test code = 23766-2) POC hemoglobin (test 8.2 g/dL 12.0-16.0 L code = 718-7) Lab Interpretation Abnormal (test code = 60078-2) [facility] blood gas, arterial and eimoz1459-95-25 22:02:14 Test Item Value Reference Range Interpretation [...] = 2025-3) O2 saturation, 100 % 95-100 Computer Applications Instructor Name : Shine arterial, POC (test Quni vice ID: code = 2708-6) [id number] POC sodium (test code 141 mmol/L 135-148 = 2947-0) POC potassium (test 4.8 mmol/L 3.5-5.0 code = 6298-4) POC hematocrit (test 24 % 37-47 L code = 4544-3) POC glucose (test code 164 mg/dL 65-99 H = 2339-0) Ionized calcium, 1.05 mmol/L 1.11-1.32 L arterial, POC (test code = 64331-5) POC hemoglobin (test 8.2 g/dL 12.0-16.0 L code = 718-7) Lab Interpretation Abnormal (test code = 68893-0) [facility] blood gas, arterial and [id number] 22:02:14 Test Item Value Reference Range Interpretation [...] = 2025-3) O2 saturation, 100 % 95-100 Computer Applications Instructor Name : Shine arterial, POC (test Quin vice ID: code = 2708-6) [id number] POC sodium (test code 141 mmol/L 135-148 = 2947-0) POC potassium (test 4.8 mmol/L 3.5-5.0 code = 6298-4) POC hematocrit (test 24 % 37-47 L code = 4544-3) POC glucose (test code 164 mg/dL 65-99 H = 2339-0) Ionized calcium, 1.05 mmol/L 1.11-1.32 L arterial, POC (test code = 44074-2) POC hemoglobin (test 8.2 g/dL 12.0-16.0 L code = 718-7) Lab Interpretation Abnormal (test code = 41898-4) [facility] blood gas, arterial and [id number] 22:02:14 Test Item Value Reference Range Interpretation [...] = 2025-) O2 saturation, 100 % 95-100 Computer Applications Instructor Name : Shine arterial, POC (test Quin vice ID: code = 2708-6) [id number] POC sodium (test code 141 mmol/L 135-148 = 2947-0) POC potassium (test 4.8 mmol/L 3.5-5.0 code = 6298-4) POC hematocrit (test 24 % 37-47 L code = 4544-3) POC glucose (test code 164 mg/dL 65-99 H = 2339-0) Ionized calcium, 1.05 mmol/L 1.11-1.32 L arterial, POC (test code = 23302-1) POC hemoglobin (test 8.2 g/dL 12.0-16.0 L code = 718-7) Lab Interpretation Abnormal (test code = 99422-5) [facility] blood gas, arterial and [id number] 22:02:14 Test Item Value Reference Range Interpretation [...] mmol/L 24-31 arterial, POC (test code = 2026-3) O2 saturation, 100 % 95-100 Computer Applications Instructor Name : Shine arterial, POC (test Quin vice ID: code = 2708-6) [id number] POC sodium (test code 141 mmol/L 135-148 = 2947-0) POC potassium (test 4.8 mmol/L 3.5-5.0 code = 6298-4) POC hematocrit (test 24 % 37-47 L code = 4544-3) POC glucose (test code 164 mg/dL 65-99 H = 2339-0) Ionized calcium, 1.05 mmol/L 1.11-1.32 L arterial, POC (test code = 96935-7) POC hemoglobin (test 8.2 g/dL 12.0-16.0 L code = 718-7) Lab Interpretation Abnormal (test code = 24242-4) [facility] blood gas, arterial and [id number] 22:02:14 Test Item Value Reference Range Interpretation [...] = 2025-3) O2 saturation, 100 % 95-100 Computer Applications Instructor Name : Shine arterial, POC (test Quin vice ID: code = 2708-6) [id number] POC sodium (test code 141 mmol/L 135-148 = 2947-0) POC potassium (test 4.8 mmol/L 3.5-5.0 code = 6298-4) POC hematocrit (test 24 % 37-47 L code = 4544-3) POC glucose (test code 164 mg/dL 65-99 H = 2339-0) Ionized calcium, 1.05 mmol/L 1.11-1.32 L arterial, POC (test code = 56061-4) POC hemoglobin (test 8.2 g/dL 12.0-16.0 L code = 718-7) Lab Interpretation Abnormal (test code = 78160-9) [facility] blood gas, arterial and [id number] 22:02:14 Test Item Value Reference Range Interpretation [...] = 2025-3) O2 saturation, 100 % 95-100 Computer Applications Instructor Name : Shine arterial, POC (test Quin vice ID: code = 2708-6) [id number] POC sodium (test code 141 mmol/L 135-148 = 2947-0) POC potassium (test 4.8 mmol/L 3.5-5.0 code = 6298-4) POC hematocrit (test 24 % 37-47 L code = 4544-3) POC glucose (test code 164 mg/dL 65-99 H = 2339-0) Ionized calcium, 1.05 mmol/L 1.11-1.32 L arterial, POC (test code = 06542-9) POC hemoglobin (test 8.2 g/dL 12.0-16.0 L code = 718-7) Lab Interpretation Abnormal (test code = 43162-4) [facility] blood gas, arterial and [id number] 22:02:14 Test Item Value Reference Range Interpretation [...] = 2025-3) O2 saturation, 100 % 95-100 Computer Applications Instructor Name : Shine arterial, POC (test Quin vice ID: code = 2708-6) [id number] POC sodium (test code 141 mmol/L 135-148 = 2947-0) POC potassium (test 4.8 mmol/L 3.5-5 code = 6298-4) POC hematocrit (test 24 % 37-47 L code = 4544-3) POC glucose (test code 164 mg/dL 65-99 H = 2339-0) Ionized calcium, 1.05 mmol/L 1.11-1.32 L arterial, POC (test code = 53683-1) POC hemoglobin (test 8.2 g/dL 12-16 L code = 718-7) Lab Interpretation Abnormal (test code = 13421-7) [facility] blood gas, arterial and dfnrb3179-17-42 22:02:14 Test Item Value Reference Range Interpretation [...] mmol/L 24-31 arterial, POC (test code = 6-3) O2 saturation, 100 % 95-100 Computer Applications Instructor Name : Shine arterial, POC (test Quin vice ID: code = 2708-6) [id number] POC sodium (test code 141 mmol/L 135-148 = 2947-0) POC potassium (test 4.8 mmol/L 3.5-5.0 code = 6298-4) POC hematocrit (test 24 % 37-47 L code = 4544-3) POC glucose (test code 164 mg/dL 65-99 H = 2339-0) Ionized calcium, 1.05 mmol/L 1.11-1.32 L arterial, POC (test code = 97965-4) POC hemoglobin (test 8.2 g/dL 12.0-16.0 L code = 718-7) Lab Interpretation Abnormal (test code = 64204-9) [facility] blood gas, arterial and yeych3438-05-12 22:02:14 Test Item Value Reference Range Interpretation Comments pH, arterial, POC 7.35-7.45 L (test code = 2744-1) pCO2, arterial, POC See_Comment H [Automa geeta message] (test code = 2019-8) The sys tem which generated this result [...] = 2025-04) O2 saturation, 100 % 95-100 Computer Applications Instructor Name : Shine arterial, POC (test Quin vice ID: code = 2708-6) [id number] POC sodium (test code 141 mmol/L 135-148 = 2947-0) POC potassium (test 4.8 mmol/L 3.5-5.0 code = 6298-4) POC hematocrit (test 24 % 37-47 L code = 4544-3) POC glucose (test code 164 mg/dL 65-99 H = 2339-0) Ionized calcium, 1.05 mmol/L 1.11-1.32 L arterial, POC (test code = 00501-9) POC hemoglobin (test 8.2 g/dL 12.0-16.0 L code = 718-7) Lab Interpretation Abnormal (test code = 62803-1) [facility] blood gas, arterial and [id number] 22:02:14 Test Item Value Reference Range Interpretation [...] = 2025-04) O2 saturation, 100 % 95-100 Computer Applications Instructor Name : Shine arterial, POC (test Quin vice ID: code = 2708-6) 775359 POC sodium (test code 141 mmol/L 135-148 = 2947-0) POC potassium (test 4.8 mmol/L 3.5-5.0 code = 6298-4) POC hematocrit (test 24 % 37-47 L code = 4544-3) POC glucose (test code 164 mg/dL 65-99 H = 2339-0) Ionized calcium, 1.05 mmol/L 1.11-1.32 L arterial, POC (test code = 69017-9) POC hemoglobin (test 8.2 g/dL 12.0-16.0 L code = 718-7) Lab Interpretation Abnormal (test code = 18396-8) [facility] bguxdwkp8505-97-17 21:16:00 Test Item Value Reference Range Interpretation Comments Product name (test code Platelets Aph LR, = 25) Path Red cont2 Unit number (test code = [id number]) Product code (test code R7955W70 = 3092) Dispense status (test Transfused code = 24) Blood expiration date (test code = 302) Blood type code (test code = 308) Blood type (test code = A POSITIVE 1314) Compatibility (test code Not required = 6400) [facility] bsbjkcjj5626-60-11 21:16:00 Test Item Value Reference Range Interpretation Comments Product name (test code Platelets Aph LR, = 25) Path Red cont2 Unit number (test code = [id number] 1622012) Product code (test code Y4108H78 = 3092) Dispense status (test Transfused code = 24) Blood expiration date (test code = 302) Blood type code (test code = 308) Blood type (test code = A POSITIVE 1314) Compatibility (test code Not required = 6400) [facility] elfxiqoz3877-68-97 21:16:00 Test Item Value Reference Range Interpretation Comments Product name (test code Platelets Aph LR, = 25) Path Red cont2 Unit number (test code = [id number] 3684382) Product code (test code N2525G85 = 3092) Dispense status (test Transfused code = 24) Blood expiration date (test code = 302) Blood type code (test code = 308) Blood type (test code = A POSITIVE 1314) Compatibility (test code Not required = 6400) [facility] kdtmvzfb9878-67-68 21:16:00 Test Item Value Reference Range Interpretation Comments Product name (test code Platelets Aph LR, = 25) Path Red cont2 Unit number (test code = [id number] [id number]) Product code (test code E1692C68 = 3092) Dispense status (test Transfused code = 24) Blood expiration date (test code = 302) Blood type code (test code = 308) Blood type (test code = A POSITIVE 1314) Compatibility (test code Not required = 6400) [facility] nfmzjjgj5848-76-47 21:16:00 Test Item Value Reference Range Interpretation Comments Product name (test code Platelets Aph LR, = 25) Path Red cont2 Unit number (test code = [id number] 5088171) Product code (test code P8314O19 = 3092) Dispense status (test Transfused code = 24) Blood expiration date (test code = 302) Blood type code (test code = 308) Blood type (test code = A POSITIVE 1314) Compatibility (test code Not required = 6400) [facility] ckntedrq6014-69-15 21:16:00 Test Item Value Reference Range Interpretation Comments Product name (test code Platelets Aph LR, = 25) Path Red cont2 Unit number (test code = [id number] 3915596) Product code (test code Y9850D93 = 3092) Dispense status (test Transfused code = 24) Blood expiration date (test code = 302) Blood type code (test code = 308) Blood type (test code = A POSITIVE 1314) Compatibility (test code Not required = 6400) [facility] obtgecaa5983-02-17 21:16:00 Test Item Value Reference Range Interpretation Comments Product name (test code Platelets Aph LR, = 25) Path Red cont2 Unit number (test code = [id number] 6531126) Product code (test code O9840O81 = 3092) Dispense status (test Transfused code = 24) Blood expiration date (test code = 302) Blood type code (test code = 308) Blood type (test code = A POSITIVE 1314) Compatibility (test code Not required = 6400) [facility] suhltfai2936-99-65 21:16:00 Test Item Value Reference Range Interpretation Comments Product name (test code Platelets Aph LR, = 25) Path Red cont2 Unit number (test code = [id number] 9739604) Product code (test code U2845O67 = 3092) Dispense status (test Transfused code = 24) Blood expiration date (test code = 302) Blood type code (test code = 308) Blood type (test code = A POSITIVE 1314) Compatibility (test code Not required = 6400) [facility] bgpweurh9428-27-16 21:16:00 Test Item Value Reference Range Interpretation Comments Product name (test code Platelets Aph LR, = 25) Path Red cont2 Unit number (test code = [id number] 7386441) Product code (test code M4083U82 = 3092) Dispense status (test Transfused code = 24) Blood expiration date (test code = 302) Blood type code (test code = 308) Blood type (test code = A POSITIVE 1314) Compatibility (test code Not required = 6400) [facility] [id number] 21:16:00 Test Item Value Reference Range Interpretation Comments Product name (test code Platelets Aph LR, = 25) Path Red cont2 Unit number (test code = [id number]) Product code (test code [id number] = 3092) Dispense status (test Transfused code = 24) Blood expiration date (test code = 302) Blood type code (test code = 308) Blood type (test code = A POSITIVE 1314) Compatibility (test code Not required = 6400) [facility] [id number] 21:16:00 Test Item Value Reference Range Interpretation Comments Product name (test code Platelets Aph LR, = 25) Path Red cont2 Unit number (test code = [id number]) Product code (test code W0616V26 = 3092) Dispense status (test Transfused code = 24) Blood expiration date (test code = 302) Blood type code (test code = 308) Blood type (test code = A POSITIVE 1314) Compatibility (test code Not required = 6400) [facility]2022-02-07 19:18:30 Test Item Value Reference Range Interpretation Comments Hemoglobin, syringe (test 6.7 g/dL 12.0-16.0 LL HG BS results called code = 718-7) to and read ba ck by Stephane BURCH at _ 04/06/2021 13 :18 __by RLS_. Lab Interpretation (test Abnormal code = 23778-4) [facility]2022-02-07 19:18:30 Test Item Value Reference Range Interpretation Comments Hemoglobin, syringe (test 6.7 g/dL 12.0-16.0 LL HG BS results called code = 718-7) to and read ba ck by Stephane BURCH at _ 04/06/2021 13 :18 __by RLS_. Lab Interpretation (test Abnormal code = 73633-6) [facility]2022-02-07 19:18:30 Test Item Value Reference Range Interpretation Comments Hemoglobin, syringe (test 6.7 g/dL 12.0-16.0 LL HG BS results called code = 718-7) to and read ba ck by Stephane BURCH at _ 04/06/2021 13 :18 __by RLS_. Lab Interpretation (test Abnormal code = 31492-3) [facility]2022-02-07 19:18:30 Test Item Value Reference Range Interpretation Comments Hemoglobin, syringe (test 6.7 g/dL 12.0-16.0 LL HG BS results called code = 718-7) to and read ba ck by Stephane BURCH at _ 04/06/2021 13 :18 __by RLS_. Lab Interpretation (test Abnormal code = 42492-4) [facility]2022-02-07 19:18:30 Test Item Value Reference Range Interpretation Comments Hemoglobin, syringe (test 6.7 g/dL 12.0-16.0 LL HG BS results called code = 718-7) to and read ba ck by Stephane BURCH at _ 04/06/2021 13 :18 __by RLS_. Lab Interpretation (test Abnormal code = 49069-3) [facility]2022-02-07 19:18:30 Test Item Value Reference Range Interpretation Comments Hemoglobin, syringe (test 6.7 g/dL 12.0-16.0 LL HG BS results called code = 718-7) to and read ba ck by Stephane BURCH at _ 04/06/2021 13 :18 __by RLS_. Lab Interpretation (test Abnormal code = 79225-8) [facility]2022-02-07 19:18:30 Test Item Value Reference Range Interpretation Comments Hemoglobin, syringe (test 6.7 g/dL 12.0-16.0 LL HG BS results called code = 718-7) to and read ba ck by Stephane BURCH at _ 04/06/2021 13 :18 __by RLS_. Lab Interpretation (test Abnormal code = 34637-0) [facility]2022-02-07 19:18:30 Test Item Value Reference Range Interpretation Comments Hemoglobin, syringe (test 6.7 g/dL 12-16 LL HG BS results called code = 718-7) to and read ba ck by Stephane BURCH at _ 04/06/2021 13 :18 __by RLS_. Lab Interpretation (test Abnormal code = 50779-0) [facility]2022-02-07 19:18:30 Test Item Value Reference Range Interpretation Comments Hemoglobin, syringe (test 6.7 g/dL 12.0-16.0 LL HG BS results called code = 718-7) to and read ba ck by Stephane BURCH at _ 04/06/2021 13 :18 __by RLS_. Lab Interpretation (test Abnormal code = 95978-7) [facility]2022-02-07 19:18:30 Test Item Value Reference Range Interpretation Comments Hemoglobin, syringe (test 6.7 g/dL 12.0-16.0 LL HG BS results called code = 718-7) to and read ba ck by Stephane BURCH at _ 04/06/2021 13 :18 __by RLS_. Lab Interpretation (test Abnormal code = 30249-5) [facility]2022-02-07 19:18:30 Test Item Value Reference Range Interpretation Comments Hemoglobin, syringe (test 6.7 g/dL 12.0-16.0 LL HG BS results called code = 718-7) to and read ba ck by Stephane BURCH at _ 04/06/2021 13 :18 __by RLS_. Lab Interpretation (test Abnormal code = 26712-6) [facility] [id number] 17:19:00 Test Item Value Reference Range Interpretation Comments ABO grouping (test code = 883-9) A Rh type (test code = 98032-6) NEG Antibody screen (gel) (test code = NEG 890-4) [facility] CcfnssrnEGOC-YnP-9 (COVID-19) RNA [Presence] in Respiratory specimen by CHANTEL with probe [id number] 15:56:37 Test Item Value Reference Range Interpretation Comments SARS-CoV-2 (COVID-19) RNA [Presence] Detected Not-Detected in Respiratory specimen by CHANTEL with probe detection (test code = 72608-2) 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 (test code = 76152-6) Whether the patient has symptoms related to condition of interest (test code = 22498-2) Patient was hospitalized because of this condition (test code = 70380-3) Whether the patient was admitted to intensive care unit (ICU) for condition of interest (test code = 64701-1) Whether patient resides in a congregate care setting (test code = 42228-6) [facility]-CoV-[facility] (COVID-19) RNA [Presence] in Respiratory specimen by CHANTEL with probe [id number] 00:59:54 Test Item Value Reference Range Interpretation Comments SARS-CoV-2 (COVID-19) RNA Not detected Not-Detected [Presence] in Respiratory specimen by CHANTEL with probe detection (test code = 34788-4) 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 (test code = 98469-1) Whether the patient has symptoms related to condition of interest (test code = 13012-0) Patient was hospitalized because of this condition (test code = 30992-3) Whether the patient was admitted to intensive care unit (ICU) for condition of interest (test code = 32132-9) Whether patient resides in a congregate care setting (test code = 20482-7) [facility] Pre/Post [id number] 00:53:16 Test Item Value Reference Range Interpretation Comments Ventricular rate (test code = 253) Atrial rate (test code = 255) DC interval (test code = 266) QRSD interval [...] 13:01,-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- [facility] Pre/Post [id number] 00:53:16 Test Item Value Reference Range Interpretation Comments Ventricular rate (test code = 253) Atrial rate (test code = 255) DC interval (test code = 266) QRSD interval [...] 13:01,-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- [facility] Pre/Post [id number] 00:53:16 Test Item Value Reference Range Interpretation Comments Ventricular rate (test code = 253) Atrial rate (test code = 255) DC interval (test code = 266) QRSD interval [...] 13:01,-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- [facility] Pre/Post [id number] 00:53:16 Test Item Value Reference Range Interpretation Comments Ventricular rate (test code = 253) Atrial rate (test code = 255) DC interval (test code = 266) QRSD interval [...] 13:01,-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- [facility] Pre/Post [id number] 00:53:16 Test Item Value Reference Range Interpretation Comments Ventricular rate (test code = 253) Atrial rate (test code = 255) DC interval (test code = 266) QRSD interval [...] 13:01,-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- [facility] Pre/Post [id number] 00:53:16 Test Item Value Reference Range Interpretation Comments Ventricular rate (test code = 253) Atrial rate (test code = 255) DC interval (test code = 266) QRSD interval [...] 13:01,-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- [facility] Pre/Post [id number] 00:53:16 Test Item Value Reference Range Interpretation Comments Ventricular rate (test code = 253) Atrial rate (test code = 255) DC interval (test code = 266) QRSD interval [...] 13:01,-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- [facility] Pre/Post [id number] 00:53:16 Test Item Value Reference Range Interpretation Comments Ventricular rate (test code = 253) Atrial rate (test code = 255) DC interval (test code = 266) QRSD interval [...] 13:01,-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- [facility] Pre/Post [id number] 00:53:16 Test Item Value Reference Range Interpretation Comments Ventricular rate (test code = 253) Atrial rate (test code = 255) DC interval (test code = 266) QRSD interval [...] 13:01,-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- [facility] Pre/Post [id number] 00:53:16 Test Item Value Reference Range Interpretation Comments Ventricular rate (test code = 253) Atrial rate (test code = 255) DC interval (test code = 266) QRSD interval [...] 13:01,-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- [facility] Pre/Post [id number] 00:53:16 Test Item Value Reference Range Interpretation Comments Ventricular rate (test code = 253) Atrial rate (test code = 255) DC interval (test code = 266) QRSD interval [...] 13:01,-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- [facility] 12 [id number] 22:40:10 Test Item Value Reference Range Interpretation [...] undetermined rhythm precludes rhythm comparison, needs review- [facility] [id number] 20:43:36 Test Item Value Reference Range Interpretation Comments POC glucose (test code 208 mg/dL 65-99 H [employer] tor Name: Melody = 45327-4) Shaun ID: [id number] able: HMW Notified bilingual interpreter Interpretation Abnormal (test code = 89593-4) [facility] [Presence] in Respiratory specimen by CHANTEL with probe [id number] 00:35:59 Test Item Value Reference Range Interpretation Comments SARS-CoV-2 (COVID-19) RNA Not detected Not-Detected [Presence] in Respiratory specimen by CHANTEL with probe detection (test code = 98829-0) 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 (test code = 65705-9) Whether the patient has symptoms related to condition of interest (test code = 13996-6) Patient was hospitalized because of this condition (test code = 81408-2) Whether the patient was admitted to intensive care unit (ICU) for condition of interest (test code = 47210-2) Whether patient resides in a congregate care setting (test code = 09281-8) [facility] ED Preliminary Interpretation - Not an Order 2020-08-06 18:13:40 Test Item Value Reference Range Interpretation Comments BETH (test code = BETH) Norman Nolan MD 08/06/2020 10:25 [facility] ED Preliminary Interpretation - Not an OrderPerformed by: Norman Nolan MDAuthorized by: Norman Nolan MD ECG reviewed by ED Physician in the absence of a proof reader: yes Interpretation: Interpretation: abnormal Rate: ECG rate: 65 BPM ECG rate assessment: normal Rhythm: Rhythm: other rhythm Ectopy: Ectopy: none QRS: QRS axis: Normal QRS intervals: Normal (92 ms)Conduction: Conduction: normal ST segments: ST segments: AbnormalT waves: T waves: non-specific Other findings: Other findings: prolonged qTc interval Comments: QT/QTc: 534/555 msPR Interval: * ms Lab Interpretation Abnormal (test code = 96852-1) [facility], (w Contrast, Strain and 3D if needed)2020-07-15 01:37:44 Test Item Value Reference Range Interpretation Comments Ao Root Diameter 3.24 cm (test code = 2762335278) AoV Area, Vmax (test 1.67 cm2 code = 7556663870) AoV Area, VTI (test 1.76 cm2 code = 3876879193) AoV Mean PG (test mmHg code = 6932528137) AoV Peak PG (test mmHg code = 0138679494) AoV Vmax (test code 1.72 m/s = 1851083192) AoV VTI (test code = 0.35 m 5024468384) IVS,d (test code = 1.06 cm 7449503730) IVS/LVPW,2D (test code = 2214829917) Left Atrium 4.44 cm Dimension Anterior (test code = 7463454713) LA Area d A4C (test 20.62 cm2 code = 3727206940) LV,d (test code = 5.80 cm 0479252023) LV EF,2D (test code 38.89 % = 0360594863) LV,s (test code = 4.92 cm 1134948961) LVOT area (test code 3.49 cm2 = 1818861781) LVOT Diam,S (test 2.11 cm code = 6115617228) LVOT Vmax (test code 0.82 m/s = 0935388449) LVOT VTI (test code 0.18 m = 3411185316) LVPWD,d (test code = 1.02 cm 9627167434) PV Mean Grad (test mmHg code = 1433286141) PV Pk Grad (test mmHg code = 1087342091) PV VMAX (test code = 1.32 m/s 7719376156) PV VTI (test code = 0.26 m 7035203058) RVOT Vmax (test code 0.59 m/s = 0708407922) RVSP (TR) (test code mmHg = 2882353336) TR Vpeak (test code 2.95 mm/s = 8684418625) MV E A ratio (test code = 0918238979) TR pk grad (test mmHg code = 5452903294) PV Vmn (test code = 5035628859) MR Vmax (test code = 5.16 m/s 3321217789) E wave decelartion msec time (test code = 7692876238) MV Peak A Nick (test 1.10 m/s code = 5367794935) MV valve area p 1/2 5.06 cm2 method (test code = 2229075366) MV Peak E Nick (test 1.00 m/s code = 9539269374) MV stenosis pressure 43.50 ms 1/2 time (test code = 5263271576) LVOT stroke volume 0.63 cm3 (test code = 6102369951) AV LVOT peak mmHg gradient (test code = 9643233494) RVSP (test code = mmHg 1135540933) Ao Root Diameter 3.24 cm (test code = 0098917681) MV mean gradient mmHg (test code = 4421995691) LV SYS VOL (test 114.00 ml code = 4919688075) LV CURRY VOL (test 166.56 ml code = 0694173866) LV SV Teich 2D (test 52.56 ml code = 2710840692) LV Vol s Teich PSAX 114.00 ml (test code = 3870869462) LVOT CO (test code = 4.52 l/min 5619495451) LVOT HR for LVOT CO bpm (test code = 5486625795) MR peak grad (test mmHg code = 2018222127) MV Vmax (test code = 1.13 m 5461710869) MV VTI Tips (test 0.18 m code = 4317806842) RVOT pk grad (test mmHg code = 1671073770) AoV Vmn (test code = 3596079687) IVS s 2D (test code = 4579799724) LV FS Teich 2D (test code = 3034557269) MV AE ratio (test code = 3310378178) LV FS Cube 2D (test code = 1942318226) LVOT Vmn (test code = 6809241995) Aov area Vmn (test 1.83 cm2 code = 2956772414) LA Vol d MOD A4C 55.09 ml (test code = 7085632937) LVOT mean grad (test mmHg code = 0938493366) MAX Pred HR (test code = 5522950382) RVOT mean grad (test mmHg code = 4677463177) RVOT Vmn (test code 0.39 m/s = 8217022909) RVOT VTI (test code 0.10 m = 6396695949) 85 of MPHR (test code = 9400625119) Calc MPHR (test code bpm = 7853172531) IVS pct thck PLAX 24.74 % (test code = 7791583175) LV SV Cube 2D (test 75.87 ml code = 4023655038) LV vol d cube 2D 195.12 ml (test code = 0132179882) LV vol s cube 2D 119.25 ml (test code = 9022616222) LVPW pct thck PLAX 35.01 % (test code = 4242950878) LVPW s PLAX (test 1.37 cm code = 2684443056) MV Decel slope (test 6.69 m/s2 code = 1745488071) Pred Exer Dur R1 (test code = 0617430491) Pred METS R1 (test code = 8963476778) Velocity Ratio 0.48 m/s (V1/V2) (test code = 4689) EF (test code = 31.56 % 9811920499) E/A ratio (test code = 3494371587) LVOT VTI (CM) (test 18.00 cm code = 9784179527) BETH (test code = Left ventricular BETH) [...] views were obtained. Study quality is adequate. [facility] protein/creatinine ratio, [id number] 18:27:55 Test Item Value Reference Range Interpretation Comments Prot/creat ratio, 0.16 mg/L Corrected result; urine (test code = previousl y reported as 2890-2) @RANDY on 2020 at 20:30 by I/AUT [facility] RNA [Presence] in Respiratory specimen by CHANTEL with probe [id number] 01:44:30 Test Item Value Reference Range Interpretation Comments SARS-CoV-2 (COVID-19) RNA Not detected Not-Detected [Presence] in Respiratory specimen by CHANTEL with probe detection (test code = 89758-4) 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 (test code = 10814-5) Whether the patient has symptoms related to condition of interest (test code = 70996-8) Patient was hospitalized because of this condition (test code = 50175-2) Whether the patient was admitted to intensive care unit (ICU) for condition of interest (test code = 95332-1) Whether patient resides in a congregate care setting (test code = 18799-8) [facility]
[2022-03-18 10:25] LABS: Absolute Lymphocytes (CBC) 0.8 K/uL (0.7-4.9); Hematocrit 27.2 % (36.0-45.0); Lymphocytes % 10.9 % (15.3-44.8); MCV 91.1 fL (80-100); MPV 5.9 fL (7.6-11.3); RBC Red Blood Cell Count 2.99 M/uL (3.86-4.86)
[2022-03-18 10:54] LABS: ALT/SGPT < 10 U/L (13-56); AST/SGOT 14 U/L (15-37); Albumin 2.1 g/dL (3.4-5.0); Alkaline Phosphatase 44 U/L (45-117); BUN Blood Urea Nitrogen 44 mg/dL (7-18); Bicarbonate 25 mmol/L (21-32); Bilirubin Total 0.4 mg/dL (0.2-1.0); Glomerular Filtration Rate 4 ml/min (=/>90); Glucose Level 106 mg/dL (74-106); Lipase 1069 U/L (73-393); Protein, Total 6.5 g/dL (6.4-8.2); Sodium Level 133 mmol/L (136-145)
--- NOTE | 2022-03-18 10:56 | RAD REPORT ---
EXAM DESCRIPTION: CT - Abdomen Pelvis Wo Contrast - 03/18/2022 10:31 am CLINICAL HISTORY: pain COMPARISON: Abdomen Pelvis Wo Contrast dated 02/15/2022 TECHNIQUE: Axial [address] imaging of the abdomen and pelvis was performed without IV contrast. No IV contrast was given because of allergy, abnormal renal function, patient refusal or physician re quest. Oral contrast was not given. All CT scans are performed using dose optimization technique as appropriate and may include automated exposure control or mA/KV adjustment according to patient size. FINDINGS: Small right-sided pleural effusion is present only partially imaged. Trace pleural fluid n oted on the left. These are new from the 02/15/2022 CT study. No cardiomegaly or pericardial effusion . The liver, spleen and pancreas show no suspicious findings on non-contrast imaging. Gallbladder and b iliary tree are also without suspicious finding. Gallstones can be occult on CT imaging. No hydronephrosis or suspicious renal mass. Punctate 2 mm calyx calcification noted mid right kidney. No significant adrenal finding. Isodense renal masses and pyelonephritis cannot be excluded in the a bsence of IV contrast. The urinary bladder is without significant finding. Uterus is absent or atroph ic. Ovaries are also absent or atrophic. No ENDOCRINOLOGY SPECIALIST suspicious finding. No dilated bowel loops or bowel wall thickening. Moderate left-sided sigmoid diverticulosis present w ithout diverticulitis. No appendicitis findings. No free air or pneumatosis. Minimal amount of free f luid is seen along the liver capsule and continuing inferiorly in the right pericolic gutter. This ab uts bowel loops precluding optimal evaluation of the small bowel loops the inferior aspect of the per icolic gutter. Volume is not unusual for a peritoneal dialysis patient. No mass, bulky lymphadenopathy or omental thickening. Patient has significant laxity of the anterior abdominal wall with probable small defect of the thin fascia in the right upper quadrant. No suspicious bony findings. IMPRESSION: Noncontrast CT study shows no acute or emergent finding in the abdomen or pelvis. Small right-sided pleural effusion, partially imaged, new from 02/15/2022 imaging. Full assessment is limited is the absence of IV contrast.
--- NOTE | 2022-03-18 11:24 | EDPHYS ---
Physician Documentation [facility] Name: Sierra Iqbal Age: 81 yrs Sex: Female : 1940 Arrival Date: 03/18/2022 Time: 09:32 Bed 15 Private MD: ED Physician Haresh Knight HPI: 03/18 09:52 This 81 yrs old Female presents to ER via EMS with complaints of abdominal pain, sb4 diarrhea, urinary retention. 09:52 The patient presents to the emergency department with diarrhea, abdominal pain, of the sb4 suprapubic area. Patient presented with complaints of tremors, diarrhea, decreased appetite, suprapubic pain, and urinary retention. She was admitted here on 02/15 and transferred to [facility] with peritonitis and cdiff and discharged on 03/05. Daughter states that patient has continued to be weak, have decreased appetite, diarrhea. She also reports some issues with her peritoneal dialysis machine. Patient still makes some urine. . Historical: - Allergies: 09:46 No Known Allergies; kr3 - Home Meds: 13:30 aspirin 81 mg Oral tab daily [Active]; atorvastatin 40 mg Oral tab 1 tab once daily eh3 [Active]; calcium acetate(phosphat bind) 667 mg Oral tab 2 tabs before meals [Active]; carvedilol 6.25 mg Oral tab 1 tab 2 times per day [Active]; ciprofloxacn [Active]; hydralazine 25 mg Oral tab 1 tab three times a day [Active]; Iron CR 325mg Oral [Active]; isosorbide mononitrate 20 mg Oral tab 1 tab three times a day [Active]; Lantus U-100 Insulin 100 unit/mL Sub-Q soln 50 unit nightly [Active]; Lasix 40 mg Oral tab 1 tab once daily [Active]; midodrine Oral [Active]; Vitamin C 1,000 mg Oral tab 1000 mg daily [Active]; Vitamin D3 25 mcg (1,000 unit) Oral tab daily [Active]; - PMHx: 09:46 Congestive heart failure; diabetes mellitus; ESRD; Hypertensive disorder; PERITONEAL kr3 DIALYSIS; UTI; - PSHx: 09:46 bypass; Pacemaker placement; Total abdominal hysterectomy; kr3 - Immunization history:: Adult Immunizations not up to date. - Social history:: Smoking status: Patient denies any tobacco usage or history of. ROS: 09:58 Eyes: Negative for injury, pain, redness, and discharge, ENT: Negative for injury, sb4 pain, and discharge, Neck: Negative for injury, pain, and swelling, Cardiovascular: Negative for chest pain, palpitations, and edema, Respiratory: Negative for shortness of breath, cough, wheezing, and pleuritic chest pain, Back: Negative for injury and pain, MS/Extremity: Negative for injury and deformity. 09:58 Constitutional: Positive for fatigue, poor PO intake, Negative for chills, fever. 09:58 Abdomen/GI: Positive for abdominal pain, diarrhea, Negative for constipation, black/tarry stool, bowel incontinence. 09:58 : Positive for difficulty urinating. Exam: 11:53 Head/Face: Normocephalic, atraumatic. Cardiovascular: Regular rate and rhythm with a sb4 normal S1 and S2. Respiratory: No increased work of breathing, no retractions or nasal flaring. Abdomen/GI: Soft, non-tender, no distension. Peritoneal dialysis catheter in place. No surround erythema, tenderness, discharge. Skin: Warm, dry with normal turgor. Normal color with no rashes, no lesions, and no evidence of cellulitis. MS/ Extremity: Pulses equal, no cyanosis. Neurovascular intact. Full, normal range of motion. 11:53 Constitutional: The patient appears alert, awake, pale, uncomfortable. Vital Signs: 09:42 BP 124 / 71; Pulse 85; Resp 26; Temp 98.7; Pulse Ox 100% on R/A; Weight 83.91 kg; kr3 Height 5 ft. 5 in. (165.10 cm); Pain 9/10; 12:00 BP 106 / 69; Pulse 76; Resp 22; Pulse Ox 98% on R/A; kr3 09:42 Body Mass Index 30.79 (83.91 kg, 165.10 cm) kr3 MDM: 09:38 Patient medically screened. sb4 11:24 Data reviewed: vital signs, nurses notes, EMS record, lab test result(s), EKG, sb4 radiologic studies, CT scan, I have discussed the patient's presentation/case with the attending Emergency Department Physician; and as a result, I will transfer patient. Management of patient was discussed with the following: Service Observer: I spoke with patient's director of occupational health, Dr. Sanches, who recommended patient be transferred to [facility] as we do not have peritoneal dialysis capability here. She was also recently transferred there and is a fairly complex patient. . 11:53 Differential diagnosis: Nonspecific abd pain, gastritis, pancreatitis, peritonitis, sb4 clogged peritoneal dialysis catheter, UTI. Consideration of Admission/Observation Patient was admitted/placed on observation. Historians other than the Patient: Daughter/Son: Daughter- Aubree. External Records Reviewed:. Care significantly affected by the following chronic conditions: Diabetes, Hypertension, Congestive Heart Failure, Chronic Kidney Disease. 03/18 09:39 Order name: CBC with Diff; Complete Time: 10:32 03/18 09:39 Order name: CMP; Complete Time: 10:58 03/18 09:39 Order name: Lipase; Complete Time: 10:58 03/18 10:20 Order name: COVID-19/FLU A+B; Complete Time: 12:08 03/18 12:12 Order name: Urine Culture 03/18 12:12 Order name: Urine Microscopic Only; Complete Time: 12:34 03/18 09:38 Order name: Bladder Scanner; Complete Time: 09:57 03/18 09:39 Order name: CT Abd/Pelvis - Without Contrast; Complete Time: 10:58 03/18 09:39 Order name: IV Saline Lock; Complete Time: 10:24 03/18 09:39 Order name: Labs collected and sent; Complete Time: 10:24 03/18 09:41 Order name: EKG; Complete Time: 09:42 03/18 10:36 Order name: EKG - Nurse/Tech; Complete Time: 11:02 03/18 11:43 Order name: Straight Cath - Urine; Complete Time: 12:08 03/18 11:43 Order name: Urine Dipstick-Ancillary (obtain specimen); Complete Time: 12:19 Administered Medications: 12:33 Drug: Ativan (LORazepam) 0.5 mg Route: IVP; Site: right wrist; kr3 13:29 Follow up: Response: Nausea is decreased eh3 12:52 Drug: Zosyn (piperacillin-tazobactam) 2.25 grams Route: IVPB; Infused Over: 60 mins; eh3 Site: right wrist; 13:29 Follow up: Response: No adverse reaction; Medication administered at discharge. 3 13:30 Follow up: IV Status: Infusion continued upon transfer; IV Intake: 100ml eh3 Disposition: 16:39 Co-signature as Attending Physician, Haresh Knight MD I agree with the assessment and kdr plan of care. Disposition Summary: 03/18/22 11:24 Transfer Ordered Transfer Location: Other Acute Care Facility sb4 Reason: Higher level of care sb4 Condition: Fair sb4 Problem: new sb4 Symptoms: are unchanged sb4 Accepting Physician: Dr. Manuel PURCELL [facility](03/18/22 13:32) eh3 Diagnosis - Acute pancreatitis sb4 - ESRD on Peritoneal Dialysis sb4 Forms: - Medication Reconciliation Form sb4 - SBAR form sb4 Signatures: Dispatcher [employer] EDHaresh Connor MD MD kdr Bushra Gonzales RN RN 3 Amanda Milan RN RN kr3 Ilana Russ, PA-[place] PA-C sb4 Corrections: (The following items were deleted from the chart) 10:24 09:38 IV Saline Lock ordered. sb4 ss 11:49 11:24 [facility] sb[facility] 12:33 11:49 [facility] kr3 13:32 12:33 [facility] eh3
--- NOTE | 2022-03-18 11:24 | ER ---
Nurse's Notes [facility] Name: Sierra Iqbal Age: 81 yrs Sex: Female : 1940 Arrival Date: 03/18/2022 Time: 09:32 Bed 15 Private MD: Diagnosis: Acute pancreatitis;ESRD on Peritoneal Dialysis Presentation: 03/18 09:41 Chief complaint: EMS states: has had N/V/D with tremors for the last 2 days. Discharged kr3 from the hospital on the 7th for CDIFF. 09:42 Coronavirus screen: Vaccine status: Patient reports receiving the 2nd dose of the covid kr3 vaccine. Ebola Screen: Patient denies travel to an Ebola-affected area in the 21 days before illness onset. Initial Sepsis Screen: Does the patient meet any 2 criteria? RR > 20 per min. Does the patient have a suspected source of infection? No. Patient's initial sepsis screen is negative. Risk Assessment: Do you want to hurt yourself or someone else? Patient reports no desire to harm self or others. Onset of symptoms was March 16, 2022. 09:42 Method Of Arrival: EMS [facility] 09:42 Acuity: BRAD 3 3 Triage Assessment: 09:46 General: Appears in no apparent distress. uncomfortable, Behavior is calm, cooperative, kr3 appropriate for age. Pain: Complains of pain in suprapubic area. Historical: - Allergies: 09:46 No Known Allergies; kr3 - Home Meds: 13:30 aspirin 81 mg Oral tab daily [Active]; atorvastatin 40 mg Oral tab 1 tab once daily 3 [Active]; calcium acetate(phosphat bind) 667 mg Oral tab 2 tabs before meals [Active]; carvedilol 6.25 mg Oral tab 1 tab 2 times per day [Active]; ciprofloxacn [Active]; hydralazine 25 mg Oral tab 1 tab three times a day [Active]; Iron CR 325mg Oral [Active]; isosorbide mononitrate 20 mg Oral tab 1 tab three times a day [Active]; Lantus U-100 Insulin 100 unit/mL Sub-Q soln 50 unit nightly [Active]; Lasix 40 mg Oral tab 1 tab once daily [Active]; midodrine Oral [Active]; Vitamin C 1,000 mg Oral tab 1000 mg daily [Active]; Vitamin D3 25 mcg (1,000 unit) Oral tab daily [Active]; - PMHx: 09:46 Congestive heart failure; diabetes mellitus; ESRD; Hypertensive disorder; PERITONEAL kr3 DIALYSIS; UTI; - PSHx: 09:46 bypass; Pacemaker placement; Total abdominal hysterectomy; kr3 - Immunization history:: Adult Immunizations not up to date. - Social history:: Smoking status: Patient denies any tobacco usage or history of. Screenin:37 [facility] ED Fall Risk Assessment (Adult) History of falling in the last 3 months, kr3 including since admission No falls in past 3 months (0 pts). Abuse screen: Denies threats or abuse. Nutritional screening: No deficits noted. Tuberculosis screening: No symptoms or risk factors identified. Assessment: 10:10 Reassessment: scanned bladder 149 mL. kr3 11:15 Reassessment: Patient appears in no apparent distress at this time. Patient and/or kr3 family updated on plan of care and expected duration. Pain level reassessed. Patient is alert, oriented x 3, equal unlabored respirations, skin warm/dry/pink. 12:36 Reassessment: Patient appears in no apparent distress at this time. Patient and/or kr3 family updated on plan of care and expected duration. Pain level reassessed. Patient is alert, oriented x 3, equal unlabored respirations, skin warm/dry/pink. Vital Signs: 09:42 BP 124 / 71; Pulse 85; Resp 26; Temp 98.7; Pulse Ox 100% on R/A; Weight 83.91 kg; kr3 Height 5 ft. 5 in. (165.10 cm); Pain 9/10; 12:00 BP 106 / 69; Pulse 76; Resp 22; Pulse Ox 98% on R/A; kr3 09:42 Body Mass Index 30.79 (83.91 kg, 165.10 cm) kr3 ED Course: 09:32 Patient arrived in ED. kj1 09:33 Ilana Russ PA-C is PHCP. sb4 09:33 Haresh Knight MD is Attending Physician. sb4 09:41 Amanda Milan, FIONA is Primary Nurse. kr3 09:46 Triage completed. kr3 09:47 Arm band placed on right wrist. Patient placed in an exam room, on a stretcher. kr3 09:47 Bed in low position. Call light in reach. Side rails up X 1. kr3 10:24 Inserted saline lock: 22 gauge in right forearm, using aseptic technique. Blood ss collected. 10:33 CT Abd/Pelvis - Without Contrast In Process Unspecified. EDMS 11:06 COVID-19/FLU A+B Sent. kr3 11:39 COVID-19/FLU A+B Sent. bc6 12:13 Urine Microscopic Only Sent. kr3 12:13 Urine Culture Sent. kr3 13:30 No provider procedures requiring assistance completed. Patient transferred, IV remains eh3 in place. Administered Medications: 12:33 Drug: Ativan (LORazepam) 0.5 mg Route: IVP; Site: right wrist; kr3 13:29 Follow up: Response: Nausea is decreased eh3 12:52 Drug: Zosyn (piperacillin-tazobactam) 2.25 grams Route: IVPB; Infused Over: 60 mins; 3 Site: right wrist; 13:29 Follow up: Response: No adverse reaction; Medication administered at discharge. eh3 13:30 Follow up: IV Status: Infusion continued upon transfer; IV Intake: 100ml 3 Medication: 13:30 VIS not applicable for this client. eh3 Intake: 13:30 IV: 100ml; Total: 100ml. eh3 Outcome: 11:24 ER care complete, transfer ordered by . sb4 12:33 Patient left the ED. kr3 13:31 Transferred by ground EMS to [facility], Transfer form completed. 3 13:31 Condition: stable 13:31 Instructed on the need for transfer. 13:32 Patient left the ED. eh3 Signatures: Dispatcher [employer] EDOR Madalyn Carlos RN RN Sushma Cochran kj1 Bushra Gonzales RN RN eh3 Amanda Milan RN RN kr3 Ilana Russ PA-C PAErnesto [email or web address] Lucero Sands 6 Corrections: (The following items were deleted from the chart) 09:46 09:41 Chief complaint: EMS states: has had N/V/D x 2 days kr3 kr3
[2022-03-18 12:02] LABS: SARS-COV-2 RT PCR NEGATIVE (NEGATIVE)
[2022-03-18] MEDS ORDERED: LORazepam 2 MG/ML VIAL ONE (12:29)
[2022-03-18 12:31] LABS: Urine Bacteria 20-50 /HPF (<20); Urine RBC >50 /HPF (None Seen); Urine WBC Clump Many /HPF (None Seen)
[2022-03-18 12:45] VITALS: TEMP 98.7
[2022-03-18] MEDS ORDERED: NA CHLORIDE 0.9% 100 ML IV ONE (12:56)
[2022-03-18] MEDS ORDERED: PIPERACIL/TAZO 2.25 GM VIAL IV ONE (12:56)
[2022-03-18 13:54] VITALS: BP 106/69; O2SAT 98
--- NOTE | 2022-03-19 17:34 | EKG ---
Test Date: 2022-03-18 Test Time: 10:58:38 Crushing Machine Operator: JENNIE MEASUREMENT RESULTS: Intervals: Rate: 88 FL: 258 QRSD: 90 QT: 514 QTc: 621 [place]: P: 63 FL: 258 QRS: 7 T: 179 INTERPRETIVE STATEMENTS: Sinus rhythm with 1st degree AV block with premature supraventricular complexes with frequent and consecutive premature ventric ST & Marked T wave abnormality, consider anterolateral ischemia Prolonged QT Abnormal ECG Compared to ECG 11/28/2021 16:33:53 Atrial premature complex(es) now present First degree AV block now present T-wave abnormality now present Atrial fibrillation no longer present Myocardial infarct finding no longer present ST (T wave) deviation no longer present Possible ischemia still present Electronically Signed On 03-19-22 17:31:37 ELECTRIC STOP INSTALLER by Ammon Madden
== END 2022-03-18 13:32 ==
LOC: ER 09:26
DX: K85.90 Acute pancreatitis without necrosis or infection, unspecified (principal); E11.22 Type 2 diabetes mellitus with diabetic chronic kidney disease; I13.2 Hypertensive heart and chronic kidney disease with heart failure and with stage 5 chronic kidney disease, or end stage renal disease; I50.9 Heart failure, unspecified; N18.6 End stage renal disease; Z99.2 Dependence on renal dialysis; Z95.0 Presence of cardiac pacemaker; Z95.1 Presence of aortocoronary bypass graft; Z79.82 Long term (current) use of aspirin; Z79.4 Long term (current) use of insulin; Z20.822 Contact with and (suspected) exposure to COVID-19
CPT/HCPCS: 96365; 93005; 87088; 85025; 87086; 36415; 81015; 83690; 80053; 0240U; 74176; 96375; 99285; J2543

== ENCOUNTER 2022-07-10 18:28 | Emergency (ER) | payer OTHER ==
--- OUTSIDE RECORDS SUMMARY | 2022-07-10 18:52 | XMS REPORT | Continuity of Care Document ---
:1940 Author Organization [facility] t Address [address] [facility] [address] [place] [address] Care Team Providers Name Role Phone ANENL RUTH DUKE Primary Care Physician UnavailGeneva Mahajan Attending Clinician Unavailable RUT JUARES Attending Clinician Unavailable ANUSHA CLEMENTE Attending Clinician Unavailable Rut Juaers MD Attending Clinician Ludwin INMAN, Wendy Rodriges Attending Clinician Usman Orantes MD Attending Clinician Tiffany INMAN, Christine Montgomery Attending Clinician Jonatan Hernandez MD Attending Clinician [phone] Yordy Wilson MD Attending Clinician [phone] Anusha Clemente MD Attending Clinician Elvin INMAN, Angelita Attending Clinician Medina Geneva Attending Clinician Valeria INMAN, Marguerite Attending Clinician Ирина Jaramillo MD Attending Clinician MARGUERITE BENOIT Attending Clinician Unavailable Brody Shipley MD Attending Clinician ИРИНА JARAMILLO Attending Clinician Unavailable Ruth Melendez Attending Clinician [phone] Will Corona MD Attending Clinician WILL CORONA Attending Clinician Unavailable Jean-Pierre INMAN, Pedro Montoya Attending Clinician Jaqui RN, Radha Attending Clinician Unavailable Jackie INMAN, Miranda Curiel Attending Clinician Michelle INMAN, Danyell Calderón Attending Clinician Rosario Nolan MD Attending Clinician [phone] Pedrito Espinoza CRNA Attending Clinician MD DANYELL MCMAHON Attending Clinician Unavailable Dung MCCULLOUGH, Neelima Roman Attending Clinician Pauly INMAN, Aston Attending Clinician Norma Freed RN Attending Clinician Unavailable Carmelina Parikh RN Attending Clinician Unavailable MD PEDRO MOREJON Attending Clinician Unavailable Shelia Mccarthy MA Attending Clinician Unavailable Ana Maria Granger RN Attending Clinician Unavailable LIZZY CASTANEDA Attending Clinician Unavailable Norman Nolan MD Attending Clinician Ritu INMAN, Bhaskar Mcclellan Attending Clinician MD BHASKAR SKINNER Attending Clinician Unavailable Chantal INMAN, Demarcus Alcazar Attending Clinician Manuela Braga MD Attending Clinician [phone] Jayant Arambula MD Attending Clinician Papi INMAN, Irma Hester Attending Clinician MARTITA BETTS Attending Clinician Unavailable ANGELITA OCONNOR Admitting Clinician Unavailable MARGUERITE BENOIT Admitting Clinician Unavailable BRODY SHIPLEY Admitting Clinician Unavailable WILL CORONA Admitting Clinician Unavailable MIRANDA MEJIA Admitting Clinician Unavailable MD MIRANDA MEJIA Admitting Clinician Unavailable MD PEDRO MOREJON Admitting Clinician Unavailable BHASKAR SKINNER Admitting Clinician Unavailable MD BHASKAR SKINNER Admitting Clinician Unavailable MARTITA BETTS Admitting Clinician Unavailable Payers Payer Name Policy Type Policy Number Effective Date Expiration Date Jayla hammer [facility] 53 [id number] 2021 [facility] ADV[facility] 00:00:[address] [facility] Problems Condition Condition Condition Status Onset Resolution Last Treating Co mments Source Name Details Category Date Date Treatment Clinician Date Septic Septic Disease Recurre [facility] 00 [place] Acute Acute Disease Active [facility] pancreatit pancreatit 1-19 [facility] kes is is 00:00: Medical 00 [place] Peritoniti Peritoniti Disease Recurre 2021-[address] [facility] s nce 2-21 [facility] 00:[facility]: Medical 00 [place] ESRD on ESRD on Disease Recurre 2021-[address] peritoneal peritoneal nce 0-02 [facility] kes dialysis dialysis 00:00: Medica l 00 Center Hypotensio Hypotensio Disease Active 2021-[address] n n 0-02 [facility] 00:[facility]: Medical 00 [place] COVID-19 COVID-19 Disease Active Metho di virus virus 1-28 st detected detected 00:00: Hospit a 00 l 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 Added automatic ally from request for surgery [id number] Unstable Unstable Disease Active 2020-02 Overview: Me thodi angina angina 2-[address] pectoris pectoris 00:00: g of this Hos jimena 00 note l might be different from the original. Added automatic ally from request for surgery [id number] Ischemic Ischemic Disease Active 2020-02 Overview: Me thodi cardiomyop cardiomyop [address] athy athy 00:00: g of this Hospita 00 note l might be different from the original. 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 - [facility] involving [facility] coronary [facility] artery of [place] cabazon heart without angina pectoris [id number] 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 - [facility] [id number] 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 of - [facility] insulin [facility] [id number] Peritoneal Problem Co mmon dialysis Spirit catheter - [facility] in place [facility] [id number] Mixed Problem Common hyperlipid Spirit emia - [facility] [id number] Wheelchair Problem Co mmon bound Spirit - [facility] [id number] 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 - [facility] [id number] 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 heart Medical failure Center [id number] Hypertensi Problem C ommon [id number] ve heart Spirit and - [facility] chronic kidney 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 [id number] End stage Problem Com mon renal Spirit disease - [facility] Diabetes Diabetes Problem Active 2015-01-30 [facility] with renal with renal 03:02:19 l manifestat manifestat He rmann ions, type ions, type II or II or unspecifie unspecifie d type, d type, uncontroll uncontroll ed ed Active Problem 01/30/2015 [facility] Diabetes Diabetes Problem Active 2015-01-30 [facility] mellitus mellitus 03:02:19 l without without Preet mention of mention of complicati complicati on, type on, type II or II or unspecifie unspecifie d type, d type, not stated not stated as as uncontroll uncontroll ed ed Active Problem 01/30/2015 [facility] DM II [facility] DM II [facility] Problem Active 2015-01-30 [facility] Active 03:02:19 l Problem [place] 01/30/2015 [facility] TRANSIENT TRANSIENT Problem Active 2015-01-30 [facility] ISCHEMIC ISCHEMIC 03:02:19 l ATTACK(TIA ATTACK(TIA [facility] ) ) Active Problem 01/30/2015 [facility] HYPERTENSI HYPERTENS Problem Active 2015-01-30 [facility] ON ION Active 03:02:19 l Problem [place] 01/30/2015 [facility] HYPERLIPID HYPERLIPI Problem Active 2015-01-30 Memoria EMIA DEMIA 03:02:19 l Active [place] Problem 01/30/2015 [facility] 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 Memor ia hyperlipid hyperlipid 03:02:19 l emia emia [place] Active Problem 01/30/2015 [facility] Diabetes Diabetes Problem Active 2015-01-30 Memoria mellitus mellitus 03:02:19 l without without Preet mention of mention of complicati complicati on, type I on, type I [juvenile [juvenile type], not type], not stated as stated as uncontroll uncontroll ed ed Active Problem 01/30/2015 [facility] Body Mass Body Mass Diagnosis Active 2014-06-12 [facility] Index Index 02:03:24 l 34.0-34.9, 34.0-34.9, He rmann adult adult Active Diagnosis 06/12/2014 [facility] Dysuria Dysuria Diagnosis Active 2014-06-12 Memoria Active 02:02:48 l Diagnosis Preet 06/12/2014 [facility] pre-operat Diagnosis Active 2014-06-12 Memoria david pre-operat 02:00:19 l examinatio david Torin n n examinatio n Active Diagnosis 06/12/2014 [facility] Unspecifie Unspecifi Diagnosis Active 2014-06-12 Memoria d cataract ed 02:00:19 l cataract [place] Active Diagnosis 06/12/2014 [facility] DM renal DM renal Problem Active 2015-01-30 Memoria manif type manif type 03:02:19 l II II Active [place] Problem 01/30/2015 [facility] CVA CVA Problem Active 2015-01-30 Memor ia (cerebral (cerebral 03:02:19 l vascular vascular Torin n accident) accident) Active Problem 01/30/2015 [facility] Dizziness Dizziness Diagnosis Active 2014-06-12 Memoria and and 02:03:24 l giddiness giddiness Herm los Active Diagnosis 06/12/2014 [facility] Allergies, Adverse Reactions, Alerts Allergy Allergy Status Severity Reaction(s) Onset Inactive Treating Comm ents Source Name Type Date Date Clinician N.KBethanieA. N.K.Carmen.A. Active Info Not Alireza narciso Available 1-26 l 00:00: [place] 00 NO KNOWN Allergy Active [facility] ALLERGIE S Family History Family Member Diagnosis Comments Start Date Stop Date Source Natural father Heart disease [facility] Natural [facility] Social History Social Habit Start Date Stop Date Quantity Comments Source Gender identity 2021-01-07 Identifies as Method ist 10:52:42 female gender Hospital (finding) Sexual orientation Method ist Hospital History SDOH [facility] History of Tobacco [facility] - Use [facility] Exposure to 2022-06-02 2022-06-[address] [facility] SARS-CoV-2 (event) 00:00:00 14:33:00 Medica l Center Tobacco use and 2022-06-12 2022-06-[address] [facility] exposure 00:00:00 00:00:00 non-user Medical Center Alcohol intake 2022-06-12 2022-06-[address] [facility] 00:00:00 00:00:00 non-drinker of Medical Ce nter alcohol (finding) History of Social 2022-05-05 2022-05-[address] function 00:00:00 00:00:00 Hospital History SDOH 2022-03-18 2022-03-[address] [facility] Transport Med 00:00:00 00:00:[address] History SDOH 2022-03-18 2022-03-[address] [facility] Housing Unable to 00:00:00 00:00:00 Medical Center Pay History [facility] 2022-03-18 2022-03-18 1 [facility] Places 00:00:00 00:00:00 Medical Ce nter Lived History [facility] 2022-03-18 2022-03-18 2 [facility] Homeless 00:00:00 00:00:00 Medical Center Last Year Doyoprashanth? 2015-01-20 2015-01-20 [facility] 00:00:00 00:00:00 Sex Ass[birth year] At [birth year] [facility] Sanam guadalupe 00:00:00 00:00:00 Medical Center Smoking Status Start Date Stop Date Source Never smoked tobacco [facility] Ex-smoker 2021-02-19 00:00:00 2021-02-19 00:00:00 [facility] Medications Ordered Filled Start Stop Current Ordering Indication Dosage Frequency Signature Comments Components Source Medication Medication Date Date Medication? Clinician (SIG) Name Name fluconazole 2022- No 100mg QD Take [address] (DIFLUCAN) 4-24 05-04 tablet [facility] 100 MG 00:00: 23:59 (100 mg Medical tablet 00 :00 total) by Center mouth in the morning for 10 days. aspirin 81 Yes 81mg QD Take [address] MG EC 4-23 by mouth [facility] tablet 14:29: daily. Medical 16 [place] atorvastati Yes 40mg QD Take [address] n (LIPITOR) 4-23 by mouth Luke s 20 MG 14:29: daily . Medical tablet 16 [place] magnesium Yes 400mg QD Take [address] oxide 4-23 mg by [facility] (MAG-OX) 14:29: mouth Medical 400 mg 16 daily. [place] (241.3 mg magnesium) tablet insulin 2022- No 10U QD Inject [address] glargine 4-23 04-23 Units [facility] (LANTUS) 11:04: 00:00 subcutaneo Me dical 100 unit/mL 08 :00 usly Center injection nightly Use as directed . insulin Yes 5U Inject [address] glargine 4-23 Units [facility] (LANTUS, 00:00: subcutaneo Med ical SEMGLEE) 00 usly daily Cente r 100 unit/mL as needed injection (for fasting BG>150. Do not give if blood glucose <150 as patient is not eating well.). mirtazapine Yes 15mg QD Take [address] (REMERON 4-23 tablet (15 [facility] YAYO-TAB) 15 00:00: mg total) M edical MG 00 by mouth Center disintegrat nightly. ing tablet povidone-io [address] [facility] dine -23 Heel:- [facility] (BETADINE) 00:00: Clean area M edical 10 % 00 with Center external normal solution saline and pat dry. [place] eschar area with bedtadine solution and allow to air dry.. prochlorper Yes 5mg Take [address] azine 4-23 tablet (5 [facility] (COMPAZINE) 00:00: mg total) M edical 5 MG tablet 00 by mouth Cent er daily with lunch. senna-docus Yes 2{tbl} Take [address] ate 4-23 tablets by [facility] (SENOKOT S) 00:00: mouth Medic al 8.6-50 mg 00 every Center per tablet night as needed for Constipati on. zinc oxide 2023- Yes Apply [facility] t 20 % 06-20 04-22 topically [facility] ointment 00:00: 23:59 as needed Med ical 00 :00 Barrier Center cream for sacral wound. ciprofloxac 0 2022- No 500mg QD Take [address] in HCl - 05-03 tablet [facility] (CIPRO) 500 00:00: 23:59 (500 mg Me dical MG tablet 00 :00 total) by Cente r mouth in the morning for 10 days. insulin 0 Yes 10U QD Inject 10 [facility] t glargine 3-29 Units [facility] (LANTUS) 19:06: subcutaneo Med ical 100 unit/mL 01 usly Center injection nightly Use as directed . aspirin 81 0 Yes 81mg QD Take [address] MG EC 3-29 by mouth [facility] tablet 19:06: daily. Medical Center atorvastati Yes 40mg QD Take [address] n (LIPITOR) 3-29 by mouth Luke s 20 MG 19:06: daily . Medical tablet [address] [place] [address] magnesium Yes 400mg QD Take [address] oxide 3-29 mg by [facility] (MAG-OX) 19:06: mouth Medical 400 mg 01 daily. Center (241.3 mg magnesium) tablet insulin Yes 10U QD Inject 10 [facility] t glargine 3-29 Units [facility] (LANTUS) 19:06: subcutaneo Med ical 100 unit/mL 01 usly Center injection nightly Use as directed . aspirin 81 Yes 81mg QD Take [address] MG EC 3-29 by mouth [facility] tablet 19:06: daily. [address] [facility] Yes 40mg QD Take [address] n (LIPITOR) 3-29 by mouth Luke s 20 MG 19:06: daily . Medical tablet [address] [place] [address] magnesium Yes 400mg QD Take [address] oxide 3-29 mg by [facility]ukes (MAG-OX) 19:06: mouth Medical 400 mg 01 daily. [place] (241.3 mg magnesium) tablet ondansetron 2022- No 8mg Take [address] (ZOFRAN) 8 3-16 04-23 tablet (8 [facility] MG tablet 00:00: 00:00 mg total) Me dical 00 :00 by mouth 2 Center (two) times daily as needed. ondansetron 2022- No 8mg Take [address] (ZOFRAN-ODT 3-14 04-23 tablet (8 Sanam kes ) 8 MG 00:00: 00:00 mg total) Medic al disintegrat 00 :00 by mouth 2 Ce nter ing tablet (two) times daily as needed. insulin Yes 10U QD Inject 10 [facility] glargine 2-01 Units [facility] (LANTUS) 11:05: subcutaneo Med ical 100 unit/mL 54 usly Center injection nightly Use as directed . aspirin 81 0 Yes 81mg QD Take [address] MG EC 2-01 by mouth [facility] tablet 11:05: daily. Medical 54 Center atorvastati 2023-0 Yes 40mg QD Take [address] n (LIPITOR) 2-01 by mouth Luke s 20 MG 11:05: daily . Medical tablet 54 Center magnesium 2022-0 Yes 400mg QD Take [address] oxide 2-01 mg by [facility] (MAG-OX) 11:05: mouth Medical 400 mg 54 daily. Center (241.3 mg magnesium) tablet metoclopram 2022- No 5mg Q.5D Take [address] lauren 203-31 by mouth 2 [facility] (REGLAN) 5 08:58: 00:00 (two) Medic al MG tablet 08 :00 times Center daily. midodrine 2022-2022- No 10mg Q.[id number] Take [address] (PROAMATINE 03-31 [id number] by mouth 3 [facility] ) 10 MG 08:58: 00:00 3D (three) Medica l tablet 08 :00 times Center daily. metoclopram 2022-2022- No 5mg Q.5D Take [address] lauren 03-31 by mouth 2 [facility] (REGLAN) 5 08:58: 00:00 (two) Medic al MG tablet 08 :00 times Center daily. midodrine 2022-2022- No 10mg Q.[id number] Take [address] (PROAMATINE 03-31 [id number] by mouth 3 [facility] ) 10 MG 08:58: 00:00 3D (three) Medica l tablet 08 :00 times Center daily. metoclopram 2022-2022- No 5mg Q.5D Take [address] [facility] lauren 03-31 by mouth 2 [facility] (REGLAN) 5 08:58: 00:00 (two) Medic al MG tablet 08 :00 times Center daily. midodrine 2022-2022- No 10mg Q.[id number] Take [address] (PROAMATINE 203-31 [id number] by mouth 3 [facility] ) 10 MG 08:58: 00:00 3D (three) Medica l tablet 08 :00 times Center daily. metoclopram 2022-0 2022- No 5mg Q.5D Take [address] lauren 2-01 by mouth 2 [facility] (REGLAN) 5 08:58: 00:00 (two) Medic al MG tablet 08 :00 times Center daily. midodrine 2022-2022- No 10mg Q.[id number] Take [address] (PROAMATINE 03-31 [id number] by mouth 3 [facility] ) 10 MG 08:58: 00:00 3D (three) Medica l tablet 08 :00 times Center daily. ondansetron 2022-2022- No 4mg Take [address] (ZOFRAN-ODT 03-31-08 tablet (4 Sanam kes ) 4 MG 00:00: 23:59 mg total) Medic al disintegrat 00 :00 by mouth Cent er ing tablet every 8 (eight) hours as needed for up to 7 days. ondansetron 2022-0 2022- No 4mg Take [address] (ZOFRAN-ODT 03-31-08 tablet (4 Sanam kes ) 4 MG 00:00: 23:59 mg total) Medic al disintegrat 00 :00 by mouth Cent er ing tablet every 8 (eight) hours as needed for up to 7 days. ondansetron 2022-0 2022- No 4mg Take [address] (ZOFRAN-ODT 03-31-08 tablet (4 Sanam kes ) 4 MG 00:00: 23:59 mg total) Medic al disintegrat 00 :00 by mouth Cent er ing tablet every 8 (eight) hours as needed for up to 7 days. ondansetron 2022-0 2022- No 4mg Take [address] (ZOFRAN-ODT 03-31-08 tablet (4 Sanam kes ) 4 MG 00:00: 23:59 mg total) Medic al disintegrat 00 :00 by mouth Cent er ing tablet every 8 (eight) hours as needed for up to 7 days. linezolid 2022-0 2022- No 600mg Take [address] (ZYVOX) 600 03-31- tablet [facility] mg tablet 00:00: 23:59 (600 mg Medi gabbi 00 :00 total) by Center mouth every 12 (twelve) hours for 5 days. linezolid 2022-0 2022- No 600mg Take [address] (ZYVOX) 600 03-31 tablet [facility] mg tablet 00:00: 23:59 (600 mg Medi gabbi 00 :00 total) by Center mouth every 12 (twelve) hours for 5 days. linezolid 2022-0 3- No 600mg Take [address] (ZYVOX) 600 03-31- tablet [facility] mg tablet 00:00: 23:59 (600 mg Medi gabbi 00 :00 total) by Center mouth every 12 (twelve) hours for 5 days. linezolid 2022-0 2022- No 600mg Take [address] (ZYVOX) 600 03-31 tablet [facility] mg tablet 00:00: 23:59 (600 mg Medi gabbi 00 :00 total) by Center mouth every 12 (twelve) hours for 5 days. linezolid 2022-0 2022- No 600mg Take [address] (ZYVOX) 600 03-31 tablet [facility] mg tablet 00:00: 00:00 (600 mg Medi gabbi 00 :00 total) by Center mouth every 12 (twelve) hours for 10 days. linezolid 2022-0 2022- No 600mg Take [address] (ZYVOX) 600 03-31 tablet [facility] mg tablet 00:00: 00:00 (600 mg Medi gabbi 00 :00 total) by Center mouth every 12 (twelve) hours for 10 days. linezolid 2022-0 2022- No 600mg Take [address] (ZYVOX) 600 03-31 tablet [facility] mg tablet 00:00: 00:00 (600 mg Medi gabbi 00 :00 total) by Center mouth every 12 (twelve) hours for 10 days. linezolid 2022-0 3- No 600mg Take [address] (ZYVOX) 600 03-31 tablet [facility] mg tablet 00:00: 00:00 (600 mg Medi gabbi 00 :00 total) by Center mouth every 12 (twelve) hours for 10 days. clopidogrel 2022-0 2022- No 75mg QD Take [address] (PLAVIX) 75 03-18 by mouth [facility] mg tablet 16:35: 00:00 daily. Medic al 06 :00 Center clopidogrel 2022-0 3- No 75mg QD Take [address] (PLAVIX) 75 03-18 by mouth [facility] mg tablet 16:35: 00:00 daily. Medic al 06 :00 Center clopidogrel 2023-0 2023- No 75mg QD Take [address] (PLAVIX) 75 03-18 by mouth [place] [facility] mg tablet 16:35: 00:00 daily. Medic al 06 :00 Center clopidogrel 2023-0 2023- No 75mg QD Take [address] (PLAVIX) 75 03-18 by mouth [place] [facility] mg tablet 16:35: 00:00 daily. Medic al 06 :00 Center pantoprazol 2023-0 Yes 40mg QD Take [address] e 1-07 tablet (40 [facility] (PROTONIX) 00:00: mg total) Me dical 40 MG 00 by mouth Center tablet daily. pantoprazol 2023-0 Yes 40mg QD Take [address] e 1-07 tablet (40 [facility] (PROTONIX) 00:00: mg total) Me dical 40 MG 00 by mouth Center tablet daily. pantoprazol 2023-0 Yes 40mg QD Take [address] e 1-07 tablet (40 [facility] (PROTONIX) 00:00: mg total) Me dical 40 MG 00 by mouth Center tablet daily. pantoprazol 2023-0 Yes 40mg QD Take [address] e 1-07 tablet (40 [facility] (PROTONIX) 00:00: mg total) Me dical 40 MG 00 by mouth Center tablet daily. pantoprazol 2023-0 Yes 40mg QD Take [address] e 1-07 tablet (40 [facility] (PROTONIX) 00:00: mg total) Me dical 40 MG 00 by mouth Center tablet daily. sodium 2023-0 2023- No 1g QD Take [address] chloride 1 03-06 tablet (1 [facility] gram tablet 00:00: 23:59 g total) M edical 00 :00 by mouth Center daily for 4 days. sodium 2023-0 2023- No 1g QD Take [address] chloride 1 03-06 tablet (1 [facility] gram tablet 00:00: 23:59 g total) M edical 00 :00 by mouth Center daily for 4 days. sodium 2023-0 2023- No 1g QD Take [address] chloride 1 03-06 tablet (1 [facility] gram tablet 00:00: 23:59 g total) edical 00 :00 by mouth Center daily for 4 days. sodium 2022-0 3- No 1g QD Take [address] chloride 1 03-06 tablet (1 [facility] gram tablet 00:00: 23:59 g total) edical 00 :00 by mouth Center daily for 4 days. sodium 2022-0 3- No 1g QD Take [address] chloride 1 03-06 tablet (1 [place] [facility] gram tablet 00:00: 23:59 g total) edical 00 :00 by mouth Center daily for 4 days. clopidogrel 0 Yes 75mg QD Take [address] (PLAVIX) 75 03-05 by mouth Luke s mg tablet 18:41: daily. Medica l 24 [place] insulin Yes 10U QD Inject 10 [facility] glargine 03-05 Units [facility] (LANTUS) 18:41: subcutaneo Med ical 100 unit/mL 24 [facility] injection nightly Use as directed . aspirin 81 0 Yes 81mg QD Take [address] MG EC 03-05 by mouth [facility] tablet 18:41: daily. Medical 24 Center atorvastati 0 Yes 40mg QD Take [address] n (LIPITOR) 03-05 by mouth Luke s 20 MG 18:41: daily . Medical tablet 24 Center metoclopram 0 Yes 5mg Q.5D Take [address] lauren 03-05 by mouth 2 [facility] (REGLAN) 5 18:41: (two) Medica l MG tablet 24 times Center daily. midodrine 0 Yes 10mg Q.[id number] Take [address] (PROAMATINE 03-05 [id number] by mouth 3 [facility] ) 10 MG 18:41: 3D (three) Medical tablet 24 times Center daily. lisinopril 2022-0 2022- No 20mg QD Take [address] (PRINIVIL,Z 03-05 by mouth [facility] ESTRIL) 20 13:51: 00:00 daily. Medi gabbi MG tablet 33 :00 Center lisinopril 2022-0 2022- No 20mg QD Take [address] (PRINIVIL,Z 03-05 by mouth [place] [facility] ESTRIL) 20 13:51: 00:00 daily. Medi gabbi MG tablet 33 :00 [place] lisinopril 2022-0 2023- No 20mg QD Take [address] (PRINIVIL,Z 03-05 by mouth [place] [facility] ESTRIL) 20 13:51: 00:00 daily. Medi gabbi MG tablet 33 :00 [place] lisinopril 2022-0 3- No 20mg QD Take [address] (PRINIVIL,Z 03-05 by mouth [place] ESTRIL) 20 13:51: 00:00 daily. Medi gabbi MG tablet 33 :00 [place] lisinopril 2022-0 3- No 20mg QD Take [address] (PRINIVIL,Z 03-05 by mouth [place] [facility] ESTRIL) 20 13:51: 00:00 daily. Medi gabbi MG tablet 33 :00 [place] fenofibrate 2022- 2023- No 160mg QD Take [address] (TRIGLIDE,L 1-06 01-06 mg by [facility]ukes OFIBRA) 160 13:51: 00:00 mouth Medi gabbi MG tablet 30 :00 daily. [place] fenofibrate 2022-0 2023- No 160mg QD Take [address] (TRIGLIDE,L 1-06 01-06 mg by [facility] OFIBRA) 160 13:51: 00:00 mouth Medi gabbi MG tablet 30 :00 daily. [place] fenofibrate 3-0 2023- No 160mg QD Take [address] (TRIGLIDE,L 1-06 01-06 mg by [facility]ukes OFIBRA) 160 13:51: 00:00 mouth Medi gabbi MG tablet 30 :00 daily. [place] fenofibrate 3-0 2023- No 160mg QD Take [address] (TRIGLIDE,L 1-06 01-06 mg by [facility]ukes OFIBRA) 160 13:51: 00:00 mouth Medi gabbi MG tablet 30 :00 daily. [place] fenofibrate 3-0 2023- No 160mg QD Take [address] (TRIGLIDE,L 1-06 01-06 mg by [facility]ukes OFIBRA) 160 13:51: 00:00 mouth Medi gabbi MG tablet 30 :00 daily. [place] cloNIDine 2022-0 2023- No .1mg Q.5D Take 0.[address] [facility] HCl 1-06 01-06 mg [facility] (CATAPRES) 13:51: 00:00 mouth 2 Med ical 0.1 MG 24 :00 (two) Center tablet times daily. cloNIDine 3-0 2023- No .1mg Q.5D Take 0.[address] [facility] HCl 1-06 01-06 mg [facility] (CATAPRES) 13:51: 00:00 mouth 2 Med ical 0.1 MG 24 :00 (two) Center tablet times daily. cloNIDine 3-0 2023- No .1mg Q.5D Take 0.[address] [facility] HCl 1-06 01-06 mg [facility] (CATAPRES) 13:51: 00:00 mouth 2 Med ical 0.1 MG 24 :00 (two) Center tablet times daily. cloNIDine 3-0 2023- No .1mg Q.5D Take 0.[address] [facility] HCl 1-06 01-06 mg [facility] (CATAPRES) 13:51: 00:00 mouth 2 Med ical 0.1 MG 24 :00 (two) Center tablet times daily. cloNIDine 3-0 2023- No .1mg Q.5D Take 0.[address] [facility] HCl 1-06 01-06 mg [facility] (CATAPRES) 13:51: 00:00 mouth 2 Med ical 0.1 MG 24 :00 (two) Center tablet times daily. dronabinoL 3-0 Yes 2.5mg Q.5D Take [address] [facility] (MARINOL) 1-06 [facility] 2.5 MG 00:00: (2.5 mg Medical capsule 00 total) by Center mouth 2 (two) times daily. Max Daily Amount: 5 mg dronabinoL 3-0 Yes 2.5mg Q.5D Take [address] [facility] (MARINOL) 1-06 [facility] 2.5 MG 00:00: (2.5 mg Medical capsule 00 total) by Center mouth 2 (two) times daily. Max Daily Amount: 5 mg dronabinoL 3-0 Yes 2.5mg Q.5D Take [address] [facility] (MARINOL) 1-06 [facility] 2.5 MG 00:00: (2.5 mg Medical capsule 00 total) by Center mouth 2 (two) times daily. Max Daily Amount: 5 mg dronabinoL Yes 2.5mg Q.5D Take [address] [facility] (MARINOL) 03-05 [facility] 2.5 MG 00:00: (2.5 mg Medical capsule 00 total) by Center mouth 2 (two) times daily. Max Daily Amount: 5 mg dronabinoL 2022- No 2.5mg Q.5D Take [address] [facility] (MARINOL) 03-05 [facility] 2.5 MG 00:00: 00:00 (2.5 mg Medical capsule 00 :00 total) by Center mouth 2 (two) times daily. Max Daily Amount: 5 mg vancomycin 2022- No 125mg Q.25D Take [address] [facility] [address] [facility] (VANCOCIN) 03-05 [facility] 125 MG 00:00: 23:59 (125 mg Medical capsule 00 :00 total) by Center mouth 4 (four) times daily for 5 days. vancomycin 2022- No 125mg Q.25D Take [address] [facility] [address] [facility] (VANCOCIN) 03-05 [facility] 125 MG 00:00: 23:59 (125 mg Medical capsule 00 :00 total) by Center mouth 4 (four) times daily for 5 days. vancomycin 2022- No 125mg Q.25D Take [address] [facility] [address] [facility] (VANCOCIN) 03-05 [facility] 125 MG 00:00: 23:59 (125 mg Medical capsule 00 :00 total) by Center mouth 4 (four) times daily for 5 days. vancomycin 2022- No 125mg Q.25D Take [address] [facility] (VANCOCIN) 03-05 [facility] 125 MG 00:00: 23:59 (125 mg Medical capsule 00 :00 total) by Center mouth 4 (four) times daily for 5 days. vancomycin 2022- No 125mg Q.25D Take [address] (VANCOCIN) 03-05 [facility] 125 MG 00:00: 23:59 (125 mg Medical capsule 00 :00 total) by Center mouth 4 (four) times daily for 5 days. clopidogrel 2021-02 Yes 75mg QD Take [address] [facility] (PLAVIX) 75 03-06 by mouth [facility] mg tablet 11:50: daily. Medica l 11 [place] insulin 2021-02 Yes QD Inject [facility] glargine 1-07 [facility] (LANTUS) 11:50: usly Medical 100 unit/mL 11 nightly Cente r injection Use as directed . aspirin 81 2021-02 Yes 81mg QD Take [address] MG EC 1-07 by mouth [facility] tablet 11:50: daily. [facility] 11 [place] lisinopril 2021-02 Yes 20mg QD Take [address] (PRINIVIL,Z 1-07 by mouth [facility] ESTRIL) 20 11:50: daily. Medic al MG tablet 11 [place] cloNIDine 2021-02 Yes .1mg Q.5D Take 0.[address] [facility] HCl 1-07 mg by [facility] (CATAPRES) 11:50: mouth 2 Medi gabbi 0.1 MG 11 (two) Center tablet times daily. atorvastati 2021-02 Yes 20mg QD Take [address] [facility] n (LIPITOR) 1-07 by mouth [facility] 20 MG 11:50: daily. Medical tablet 11 [place] fenofibrate 2021-02 Yes 160mg QD Take [address] (TRIGLIDE,L 1-07 mg by [facility] OFIBRA) 160 11:50: mouth Medic al MG tablet 11 daily. [place] clopidogrel 2021-02 Yes 75mg QD Take [address] [facility] (PLAVIX) 75 0-02 by mouth [facility] mg tablet 02:33: daily. Medica l 50 [place] insulin 2021-02 Yes QD Inject [facility] glargine 0-[facility] (LANTUS) 02:33: usly Medical 100 unit/mL 50 nightly Cente r injection Use as directed . aspirin 81 2021-02 Yes 81mg QD Take [address] MG EC 0-02 by mouth [facility] tablet 02:33: daily. [address] lisinopril 2021-02 Yes 20mg QD Take [address] (PRINIVIL,Z 0-02 by mouth [facility] ESTRIL) 20 02:33: daily. Medic al MG tablet 50 [place] cloNIDine 2021-02 Yes .1mg Q.5D Take 0.[address] [facility] HCl 0-02 mg by [facility] (CATAPRES) 02:33: mouth 2 Medi gabbi 0.1 MG 50 (two) Center tablet times daily. atorvastati 2021-02 Yes 20mg QD Take [address] [facility] n (LIPITOR) 0-02 by mouth [facility] 20 MG 02:33: daily. Medical tablet 50 [place] fenofibrate 2021-02 Yes 160mg QD Take [address] (TRIGLIDE,L 0-02 mg by [facility] OFIBRA) 160 02:33: mouth Medic al MG tablet 50 daily. [place] clopidogrel 2021-02 Yes 75mg QD Take [address] [facility] (PLAVIX) 75 0-02 by mouth [facility] mg tablet 02:33: daily. Medica l 50 [place] insulin 2021-02 Yes QD Inject [facility] glargine 0-[facility] (LANTUS) 02:33: usly Medical 100 unit/mL 50 nightly Cente r injection Use as directed . aspirin 81 2021-02 Yes 81mg QD Take [address] MG EC 0-02 by mouth [facility] tablet 02:33: daily. [address] lisinopril 2021-02 Yes 20mg QD Take [address] (PRINIVIL,Z 0-02 by mouth [facility] ESTRIL) 20 02:33: daily. Medic al MG tablet 50 [place] cloNIDine 2021-02 Yes .1mg Q.5D Take 0.[address] [facility] HCl 0-02 mg by [facility] (CATAPRES) 02:33: mouth 2 Medi gabbi 0.1 MG 50 (two) Center tablet times daily. atorvastati 2021-02 Yes 20mg QD Take [address] [facility] n (LIPITOR) 0-02 by mouth [facility] 20 MG 02:33: daily. Medical tablet 50 [place] fenofibrate 2021-02 Yes 160mg QD Take [address] (TRIGLIDE,L 0-02 mg by [facility] OFIBRA) 160 02:33: mouth Medic al MG tablet 50 daily. [place] clopidogrel 2021-02 Yes 75mg QD Take [address] [facility] (PLAVIX) 75 0-02 by mouth [facility] mg tablet 02:33: daily. Medica l 50 [place] insulin 2021-02 Yes QD Inject [facility] glargine 0-[facility] (LANTUS) 02:33: usly Medical 100 unit/mL 50 nightly Cente r injection Use as directed . aspirin 81 2021-02 Yes 81mg QD Take [address] MG EC 0-02 by mouth [facility] tablet 02:33: daily. [address] lisinopril 2021-02 Yes 20mg QD Take [address] (PRINIVIL,Z 0-02 by mouth [facility] ESTRIL) 20 02:33: daily. Medic al MG tablet 50 [place] cloNIDine 2021-02 Yes .1mg Q.5D Take 0.[address] [facility] HCl 0-02 mg by [facility] (CATAPRES) 02:33: mouth 2 Medi gabbi 0.1 MG 50 (two) Center tablet times daily. atorvastati 2021-02 Yes 20mg QD Take [address] [facility] n (LIPITOR) 0-02 by mouth [facility] 20 MG 02:33: daily. Medical tablet 50 [place] fenofibrate 2021-02 Yes 160mg QD Take [address] (TRIGLIDE,L 0-02 mg by [facility] OFIBRA) 160 02:33: mouth Medic al MG tablet 50 daily. [place] clopidogrel 2021-02 Yes 75mg QD Take [address] [facility] (PLAVIX) 75 0-02 by mouth [facility] mg tablet 02:33: daily. Medica l 50 [place] insulin 2021-02 Yes QD Inject [facility] glargine 0-[facility] (LANTUS) 02:33: usly Medical 100 unit/mL 50 nightly Cente r injection Use as directed . aspirin 81 2021-02 Yes 81mg QD Take [address] MG EC 0-02 by mouth [facility] tablet 02:33: daily. [address] lisinopril 2021-02 Yes 20mg QD Take [address] (PRINIVIL,Z 0-02 by mouth [facility] ESTRIL) 20 02:33: daily. Medic al MG tablet 50 [place] cloNIDine 2021-02 Yes .1mg Q.5D Take 0.[address] [facility] HCl 0-02 mg by [facility] (CATAPRES) 02:33: mouth 2 Medi gabbi 0.1 MG 50 (two) Center tablet times daily. atorvastati 2021-02 Yes 20mg QD Take [address] [facility] n (LIPITOR) 0-02 by mouth [facility] 20 MG 02:33: daily. Medical tablet 50 [place] fenofibrate 2021-02 Yes 160mg QD Take [address] (TRIGLIDE,L 0-02 mg by [facility] OFIBRA) 160 02:33: mouth Medic al MG tablet 50 daily. [place] clopidogrel 2021-02 Yes 75mg QD Take [address] [facility] (PLAVIX) 75 0-02 by mouth [facility] mg tablet 02:33: daily. Medica l 50 [place] insulin 2021-02 Yes QD Inject [facility] glargine 0-02 [facility] (LANTUS) 02:33: usly Medical 100 unit/mL 50 nightly Cente r injection Use as directed . aspirin 81 2021-02 Yes 81mg QD Take [address] MG EC 0-02 by mouth [facility] tablet 02:33: daily. [address] lisinopril 2021-02 Yes 20mg QD Take [address] (PRINIVIL,Z 0-02 by mouth [facility] ESTRIL) 20 02:33: daily. Medic al MG tablet 50 [place] cloNIDine 2021-02 Yes .1mg Q.5D Take 0.[address] [facility] HCl 0-02 mg by [facility] (CATAPRES) 02:33: mouth 2 Medi gabbi 0.1 MG 50 (two) [place] tablet times daily. atorvastati 2021-02 Yes 20mg QD Take [address] [facility] n (LIPITOR) 0-02 by mouth [facility] 20 MG 02:33: daily. Medical tablet 50 [place] fenofibrate 2021-02 Yes 160mg QD Take [address] (TRIGLIDE,L 0-02 mg by [facility] OFIBRA) 160 02:33: mouth Medic al MG tablet 50 daily. [place] clopidogrel 2021-02 Yes 75mg QD Take [address] [facility] (PLAVIX) 75 0-02 by mouth [facility] mg tablet 02:33: daily. Medica l 50 [place] insulin 2021-02 Yes QD Inject [facility] glargine 0-02 [facility] (LANTUS) 02:33: usly Medical 100 unit/mL 50 nightly Cente r injection Use as directed . aspirin 81 2021-02 Yes 81mg QD Take [address] MG EC 0-02 by [facility] tablet 02:33: daily. [address] lisinopril 2021-02 Yes 20mg QD Take [...] 15:55: [facility]osp[facility] ORAL) 04 l vitamin B 202-0 Yes Take by Metho di complex/fol 2-[address] ic acid (B 15:55: [facility]osp[facility] COMPLEX 100 04 l ORAL) calcitrioL 2021-0 Yes .25ug QD Take 0.25 [facility] (ROCALTROL) 2-[address] 0.25 MCG 15:55: mouth [facility]osp[facility] capsule 04 daily. l nitroglycer 2021-[address] [...] 40mg QD Take 1 [facility] 04-[facility] tablet (40 st (PROTONIX) 00:00: 04:59 mg total) [facility] 40 MG EC 00 :00 by mouth l tablet daily for 30 days. clopidogreL 2021- No 75mg QD Take 1 [facility] (PLAVIX) 75 04-17 tablet (75 s t mg tablet 00:00: 04:59 mg total) Ho [facility] 00 :00 by mouth l daily for 30 days. pantoprazol 2021- No 40mg QD Take 1 [facility] 04-[facility] tablet (40 st (PROTONIX) 00:00: 04:59 mg total) [facility] 40 MG EC 00 :00 by mouth l tablet daily for 30 days. clopidogreL 2021- No 75mg QD Take 1 [facility] (PLAVIX) 75 04-17 tablet (75 s t mg tablet 00:00: 04:59 mg total) Ho [facility] 00 :00 by mouth l daily for 30 days. pantoprazol 2021- No 40mg QD Take 1 [facility] 04-17 tablet (40 st (PROTONIX) 00:00: 04:59 mg total) [facility]ita 40 MG EC 00 :00 by mouth l tablet daily for 30 days. furosemide 2021- No 40mg QD Take 40 mg [facility] (LASIX) 40 04-16- by mouth st mg tablet 15:55: 00:00 daily. Ran [facility] 26 :00 out of l medication cholecalcif No 1000U QD Take 1,000 [facility] arvin, 04-16- Units by st vitamin D3, 15:55: 00:00 mouth [facility] 25 mcg 26 :00 daily. l (1,000 unit) capsule isosorbide 2021- No 20mg Q.[id number] Take 20 mg [facility] dinitrate -16 04- [id number] by mouth [facility] (ISORDIL) 15:55: 00:00 3D (three) [facility] 20 MG 26 :00 times a l tablet day. hydrALAZINE 2021- No 25mg Q.56498806 Take 25 mg [facility] (APRESOLINE -16 04- [id number] by mouth 3 st ) 25 MG [...] unit) capsule isosorbide 0 2021- No 20mg Q.[id number] Take 20 mg [facility] dinitrate 04-16- [id number] by mouth [facility] (ISORDIL) 15:55: 00:00 3D (three) [facility] 20 MG 26 :00 times a l tablet day. hydrALAZINE 2021- No 25mg Q.[id number] Take 25 mg [facility] (APRESOLINE -16 04-17 [id number] [address] mouth 3 [facility] ) 25 MG [...] :00 daily. l (1,000 unit) capsule isosorbide 2021-2021- No 20mg Q.99212074 Take 20 mg [facility] dinitrate 04-16- [id number] by mouth [facility] (ISORDIL) 15:55: 00:00 3D (three) [facility] 20 MG 26 :00 times a l tablet day. hydrALAZINE 2021- No 25mg Q.47414476 Take 25 mg [facility] (APRESOLINE 04-16- [id number] by mouth 3 st ) 25 MG 15:55: 00:00 3D (three) Hospit a tablet 26 :00 times a l day. carvediloL 2021-2021- No 6.25mg Q.5D Take 6.25 [facility] (COREG) 2-17 02-[address] 6.25 MG 15:55: 00:00 mouth 2 Hospit a tablet 26 :00 (two) l times a day with meals. furosemide 2021-2021- No 40mg QD Take 40 mg [facility] (LASIX) 40 - 02-[address] mg tablet 15:55: 00:00 daily. Ran [facility] 26 :00 out of l medication cholecalcif 2021-0 2021- No 1000U QD Take 1,000 [facility] arvin, 2-17 02-[address] vitamin D3, 15:55: 00:00 mouth [facility] 25 mcg 26 :00 daily. l (1,000 unit) capsule isosorbide 2021-0 2022- No 20mg Q.58976071 Take 20 mg [facility] dinitrate 2-17 -17 [id number] [address] mouth [facility] (ISORDIL) 15:55: 00:00 3D (three) [facility] 20 MG 26 :00 times a l tablet day. hydrALAZINE 2021-0 2- No 25mg Q.[id number] Take 25 mg [facility] (APRESOLINE 2-17 -17 [id number] [facility] mouth [facility] ) 25 MG 15:55: 00:00 3D (three) Hospit a tablet 26 :00 times a l day. carvediloL 2021-0 2022- No 6.25mg Q.5D Take 6.25 [facility] (COREG) [...] 1000U QD Take 1,000 [facility] arvin, -16 04-[address] vitamin D3, 15:55: 00:00 mouth [facility] 25 mcg 26 :00 daily. l (1,000 unit) capsule isosorbide 2021-0 2021- No 20mg Q.71790939 Take 20 mg [facility] dinitrate -16 04-17 [id number] [facility] mouth [facility] (ISORDIL) 15:55: 00:00 3D (three) [facility] 20 MG 26 :00 times a l tablet day. hydrALAZINE 2021-0 2- No 25mg Q.99370946 Take 25 mg [facility] (APRESOLINE 2-17 -17 [id number] by mouth 3 [facility] ) 25 MG 15:55: 00:00 3D (three) Hospit a tablet 26 :00 times a l day. carvediloL 2021-0 2022- No 6.25mg Q.5D Take 6.25 [facility] (COREG) [...] :00 daily. l (1,000 unit) capsule isosorbide 2021-2021- No 20mg Q.07700170 Take 20 mg [facility] dinitrate 04-16- [id number] by mouth [facility] (ISORDIL) 15:55: 00:00 3D (three) [facility] 20 MG 26 :00 times a l tablet day. hydrALAZINE 2021- No 25mg Q.13441232 Take 25 mg [facility] (APRESOLINE -16 04- [id number] by mouth 3 st ) 25 MG [...] unit) capsule isosorbide 2021-0 2021- No 20mg Q.[id number] Take 20 mg [facility] dinitrate -16 04-17 [id number] [facility] mouth [facility] (ISORDIL) 15:55: 00:00 3D (three) [facility] 20 MG 26 :00 times a l tablet day. hydrALAZINE 2021-2021- No 25mg Q.86412205 Take 25 mg [facility] (APRESOLINE 2-17 -17 [id number] by mouth 3 st ) 25 MG [...] 1000U QD Take 1,000 [facility], -16 04-[address] vitamin D3, 15:55: 00:00 mouth [facility] 25 mcg 26 :00 daily. l (1,000 unit) capsule isosorbide 2021- No 20mg Q.74843412 Take 20 mg [facility] dinitrate -16 04-17 [id number] [address] mouth [facility] (ISORDIL) 15:55: 00:00 3D (three) [facility] 20 MG 26 :00 times a l tablet day. hydrALAZINE 2021- No 25mg Q.83219948 Take 25 mg [facility] (APRESOLINE 2-17 -17 [id number] [facility] mouth [facility] ) 25 MG [...] :00 daily. l (1,000 unit) capsule isosorbide 2021-2021- No 20mg Q.48672039 Take 20 mg [facility] dinitrate 2-17 -17 [id number] mouth [facility] [address] (ISORDIL) 15:55: 00:00 3D (three) [facility] 20 MG 26 :00 times a l tablet day. hydrALAZINE 2021- No 25mg Q.19434963 Take 25 mg [facility] (APRESOLINE -17 -17 [id number] by mouth 3 [facility] ) 25 MG [...] unit) capsule isosorbide 2021-0 2021- No 20mg Q.54452852 Take 20 mg [facility] dinitrate 2-17 02-17 [id number] [facility] mouth [facility] (ISORDIL) 15:55: 00:00 3D (three) [facility] 20 MG 26 :00 times a l tablet day. hydrALAZINE 2021- No 25mg Q.77773526 Take 25 mg [facility] (APRESOLINE 2-17 -17 [id number] [address] mouth 3 [address] ) 25 MG [...] 1000U QD Take 1,000 [facility] arvin, 2-16 04- Units by st vitamin D3, 15:55: 00:00 mouth [facility] 25 mcg 26 :00 daily. l (1,000 unit) capsule isosorbide 2021- No 20mg Q.70257482 Take 20 mg [facility] dinitrate -16 04- [id number] by mouth [facility] (ISORDIL) 15:55: 00:00 3D (three) [facility] 20 MG 26 :00 times a l tablet day. hydrALAZINE 2021- No 25mg Q.57384387 Take 25 mg [facility] (APRESOLINE -16 04-17 [id number] by mouth 3 st ) 25 MG [...] 1000 MG tablet calcium 2021-0 Yes 1334mg Q.18163350 Take 1,334 [facility] acetate,silvano 2-17 [id number] mg by s t sphat bind, 15:55: [...] 15:55: nightly. Hospita tablet 25 l ascorbic 2-0 Yes 1000mg QD Take 1,000 [facility] acid, 2-[address] vitamin C, 15:55: mouth Hospit a (vitamin C) 25 daily. l 1000 MG tablet calcium 2021-0 Yes 1334mg Q.48435912 Take 1,334 [facility] acetate,silvano 2-17 [id number] mg by s t sphat bind, 15:55: [...] 1000 MG tablet calcium 0 Yes 1334mg Q.70939905 Take 1,334 [facility] acetate,silvano 2-17 [id number] mg by s t sphat bind, 15:55: [...] tablet 25 daily with l breakfast. atorvastati -0 Yes 40mg QD Take 40 mg [facility] (LIPITOR) 2-[address] 40 mg 15:55: nightly. [facility]ospita tablet 25 l ascorbic 202-0 Yes 1000mg QD Take 1,000 [facility] acid, 2-[address] vitamin C, 15:55: mouth Hospit a (vitamin C) 25 daily. l 1000 MG tablet calcium 2-0 Yes 1334mg Q.65062621 Take 1,334 [facility] acetate,silvano 2-17 [id number] mg by s t sphat bind, 15:55: [...] 1000 MG tablet calcium 2-0 Yes 1334mg Q.77656879 Take 1,334 [facility] acetate,silvano 2-17 [id number] mg by s t sphat bind, 15:55: [...] 1000 MG tablet calcium 2-0 Yes 1334mg Q.49830767 Take 1,334 [facility] acetate,silvano 2-17 [id number] mg by s t sphat bind, 15:55: [...] 25 daily. l 1000 MG tablet calcium 2022-0 Yes 1334mg Q.18112493 Take 1,334 [facility] acetate,silvano 2-17 [id number] mg by s t sphat bind, 15:55: [...] 1000 MG tablet calcium 0 Yes 1334mg Q.54987643 Take 1,334 [facility] acetate,silvano 2-17 [id number] mg by s t sphat bind, 15:55: [...] 1000 MG tablet calcium 2021-0 Yes 1334mg Q.24439502 Take 1,334 [facility] acetate,silvano 2-17 [id number] mg by s t sphat bind, 15:55: [...] 1000 MG tablet calcium 2021-0 Yes 1334mg Q.77902612 Take 1,334 [facility] acetate,silvano 2-17 [id number] mg by s t sphat bind, 15:55: [...] 1000 MG tablet calcium 2021-0 Yes 1334mg Q.60266061 Take 1,334 [facility] acetate,silvano 2-17 [id number] mg by s t sphat bind, 15:55: [...] 1000 MG tablet calcium 2-0 Yes 1334mg Q.68490923 Take 1,334 [facility] acetate,silvano 2-17 [id number] mg by s t sphat bind, 15:55: [...] 1000 MG tablet calcium 0 Yes 1334mg Q.67396992 Take 1,334 [facility] acetate,silvano 2-17 [id number] mg by s t sphat bind, 15:55: [...] 1000 MG tablet calcium 2021-0 Yes 1334mg Q.66479279 Take 1,334 [facility] acetate,silvano 2-17 [id number] mg by s t sphat bind, 15:55: 3D mouth 3 [facility] (PHOSLO) 25 (three) l 667 mg times a capsule day with meals. insulin 2021-0 Yes 0U Q.95466051 Inject [facility] lispro 2-17 [id number] 0-12 Units s t (ADMELOG) 00:00: 3D under the [facility] 100 unit/mL 00 skin 3 l injection (three) times a day before meals. insulin 2021-0 Yes 0U Q.[id number] Inject [facility] lispro 2-17 [id number] 0-12 Units s t (ADMELOG) 00:00: 3D under the [facility] 100 unit/mL 00 skin 3 l injection (three) times a day before meals. insulin 2021-0 Yes 0U Q.[id number] Inject [facility] lispro 2-17 [id number] 0-12 Units s t (ADMELOG) 00:00: 3D under the [facility] 100 unit/mL 00 skin 3 l injection (three) times a day before meals. insulin 202-0 Yes 0U Q.[id number] Inject [facility] lispro 2-17 [id number] 0-12 Units s t (ADMELOG) 00:00: 3D under the [facility] 100 unit/mL 00 skin 3 l injection (three) times a day before meals. insulin 202-0 Yes 0U Q.[id number] Inject [facility] lispro 2-17 [id number] 0-12 Units s t (ADMELOG) 00:00: 3D under the [facility] 100 unit/mL 00 skin 3 l injection (three) times a day before meals. insulin 202-0 Yes 0U Q.[id number] Inject [facility] lispro 2-17 [id number] 0-12 Units s t (ADMELOG) 00:00: 3D under the [facility] 100 unit/mL 00 skin 3 l injection (three) times a day before meals. insulin 2022-0 Yes 0U Q.[id number] Inject [facility] lispro 2-17 [id number] 0-12 Units s t (ADMELOG) 00:00: 3D under the [facility] 100 unit/mL 00 skin 3 l injection (three) times a day before meals. insulin 2022-0 Yes 0U Q.[id number] Inject [facility] lispro 2-17 [id number] 0-12 Units s t (ADMELOG) 00:00: 3D under the [facility] 100 unit/mL 00 skin 3 l injection (three) times a day before meals. insulin 2022-0 Yes 0U Q.[id number] Inject [facility] lispro 2-17 [id number] 0-12 Units s t (ADMELOG) 00:00: 3D under the [facility] 100 unit/mL 00 skin 3 l injection (three) times a day before meals. insulin 202-0 Yes 0U Q.[id number] Inject [facility] lispro 2-17 [id number] 0-12 Units s t (ADMELOG) 00:00: 3D under the [facility] 100 unit/mL 00 skin 3 l injection (three) times a day before meals. insulin 2022-0 Yes 0U Q.[id number] Inject [facility] lispro 2-17 [id number] 0-12 Units s t (ADMELOG) 00:00: 3D under the [facility] 100 unit/mL 00 skin 3 l injection (three) times a day before meals. insulin 2022-0 Yes 0U Q.[id number] Inject [facility] lispro 2-17 [id number] 0-12 Units s t (ADMELOG) 00:00: 3D under the [facility] 100 unit/mL 00 skin 3 l injection (three) times a day before meals. insulin 2022-0 Yes 0U Q.[id number] Inject [facility] lispro 2-17 [id number] 0-12 Units s t (ADMELOG) 00:00: 3D under the [facility] 100 unit/mL 00 skin 3 l injection (three) times a day before meals. insulin Yes 0U Q.[id number] Inject [facility] lispro 04-16 [id number] 0-12 Units s t (ADMELOG) 00:00: 3D [...] to 30 days. heparin 2021- No 5000U Q.[id number] Inject 1 [facility] sodium,porc 04-16 [id number] mL (5,000 st ine 00:00: 04:59 3D Units Hospita (HEParin, 00 :00 total) l porcine,) under the 5,000 skin every unit/mL 8 (eight) injection hours for 30 days. ipratropium 2021- No [id number] .5mg Q.25D Take 2.5 [facility] (ATROVENT) 04-16 44087 mL (0.5 mg s t 0.02 % [...] to 30 days. heparin 2021- No 5000U Q.[id number] Inject 1 [facility] sodium,porc 04-16- [id number] mL (5,000 st ine 00:00: 04:59 3D Units [facility]osp[facility] (HEParin, 00 :00 total) l porcine,) under the 5,000 skin every unit/mL 8 (eight) injection hours for 30 days. ipratropium 2021- No [id number] .5mg Q.25D Take 2.5 [facility] (ATROVENT) 04-16- 38280 mL (0.5 mg s t 0.02 % [...] to 30 days. heparin 2021- No 5000U Q.[id number] Inject 1 [facility] sodium,porc 04-16 [id number] mL (5,000 st ine 00:00: 04:59 3D Units [facility]osp[facility] (HEParin, 00 :00 total) l porcine,) under the 5,000 skin every unit/mL 8 (eight) injection hours for 30 days. ipratropium 2021- No [id number] .5mg Q.25D Take 2.5 [facility] (ATROVENT) 04-16 45471 mL (0.5 mg s t 0.02 % [...] to 30 days. heparin 2021- No 5000U Q.[id number] Inject 1 [facility] sodium,porc 04-16 [id number] mL (5,000 st ine 00:00: 04:59 3D Units [facility]osp[facility] (HEParin, 00 :00 total) l porcine,) under the 5,000 skin every unit/mL 8 (eight) injection hours for 30 days. ipratropium 2021- No [id number] .5mg Q.25D Take 2.5 [facility] (ATROVENT) 04-16- 10246 mL (0.5 mg s t 0.02 % [...] to 30 days. heparin 2021- No 5000U Q.[id number] Inject 1 [facility] sodium,porc 04-16 [id number] mL (5,000 st ine 00:00: 04:59 3D Units [facility]osp[facility] (HEParin, 00 :00 total) l porcine,) under the 5,000 skin every unit/mL 8 (eight) injection hours for 30 days. ipratropium 2021- No [id number] .5mg Q.25D Take 2.5 [facility] (ATROVENT) 04-16 17989 mL (0.5 mg s t 0.02 % [...] 650mg Q6H Take 2 [facility] -14 05-[address] (TYLENOL) 00:00: 04:59 (650 mg [facility] 325 MG 00 :00 total) by l tablet mouth every 6 (six) hours as needed for mild pain, headaches or fever (GREATER than 100.4) for up to 30 days. heparin 2021- No 5000U Q.[id number] Inject 1 [facility] sodium,porc 04-16- [id number] mL (5,000 st ine 00:00: 04:59 3D Units [facility]ospita (HEParin, 00 :00 total) l porcine,) under the 5,000 skin every unit/mL 8 (eight) injection hours for 30 days. ipratropium 2021- No [id number] .5mg Q.25D Take 2.5 [facility] ([facility]) 04-16- 62086 mL (0.5 mg s t 0.02 % [...] 650mg Q6H Take 2 Me thodi en -17 -[address] (TYLENOL) 00:00: 04:59 (650 mg [facility] 325 MG 00 :00 total) by l tablet mouth every 6 (six) hours as needed for mild pain, headaches or fever (GREATER than 100.4) for up to 30 days. heparin 2021- No 5000U [id number] Inject 1 [facility] 04-16 [id number] mL (5,000 st ine 00:00: 04:59 [facility] ([facility], 00 :00 total) l porcine,) under the 5,000 skin every unit/mL 8 (eight) injection hours for 30 days. ipratropium 2021- No [id number] .5mg Q.25D Take 2.5 [facility] ([facility]) 04-16 53390 mL (0.5 mg s t 0.02 % [...] to 30 days. heparin 2021- No 5000U [id number] Inject 1 [facility] 04-16- [id number] mL (5,000 st ine 00:00: 04:59 [facility] ([facility], 00 :00 total) l porcine,) under the 5,000 skin every unit/mL 8 (eight) injection hours for 30 days. ipratropium 2021- No [id number] .5mg Q.25D Take 2.5 [facility] ([facility]) 04-16- 95685 mL (0.5 mg s t 0.02 % [...] to 30 days. heparin 2021- No 5000U [id number] Inject 1 [facility] 04-16 [id number] mL (5,000 st ine 00:00: 04:59 [facility] ([facility], 00 :00 total) l porcine,) under the 5,000 skin every unit/mL 8 (eight) injection hours for 30 days. ipratropium 2021- No [id number] .5mg Q.25D Take 2.5 [facility] ([facility]) 04-16 59447 mL (0.5 mg s t 0.02 % [...] to 30 days. heparin 2021- No 5000U [id number] Inject 1 [facility] 04-16 [id number] mL (5,[address] [facility] ine 00:00: 04:59 [facility] (HEParin, 00 :00 total) l porcine,) under the 5,000 skin every unit/mL 8 (eight) injection hours for 30 days. ipratropium 2021- No [id number] .5mg Q.25D Take 2.5 [facility] (ATROVENT) 04-16-20 [id number] mL (0.5 mg s t 0.02 % [...] to 30 days. heparin 2021- No 5000U Q.[id number] Inject 1 [facility] sodium,porc 04-16-20 [id number] mL (5,[address] [facility] ine 00:00: 04:59 [facility] (HEParin, 00 :00 total) l porcine,) under the 5,000 skin every unit/mL 8 (eight) injection hours for 30 days. ipratropium No [id number] .5mg Q.25D Take 2.5 [facility] (ATROVENT) 04-16- 12107 mL (0.5 mg s t 0.02 % [...] -acetaminop 2-17 02-[address] [facility] (X BODY) 00:00: 05:59 [facility] 5-325 mg 00 :00 every 4 l per tablet (four) hours as needed for moderate pain for up to 7 days .acute pain. Max Daily Amount: 6 tablets HYDROcodone 1{tbl} Q4H Take 1 [facility] -acetaminop 2-17 02-[address] [facility] (X BODY) 00:00: 05:59 [facility] 5-325 mg 00 :00 every 4 l per tablet (four) hours as needed for moderate pain for up to 7 days .acute pain. Max Daily Amount: 6 [place] [id number] 1{tbl} Q4H Take 1 [facility] -acetaminop 2-17 02-[address] [facility] (X BODY) 00:00: 05:59 mouth [facility] 5-325 mg 00 :00 every 4 l per tablet (four) hours as needed for moderate pain for up to 7 days .acute pain. Max Daily Amount: 6 tablets HYDROcodone 2022-0 1{tbl} Q4H Take 1 [facility] -acetaminop 2-17 02-[address] [facility] (X BODY) 00:00: 05:59 mouth [facility] 5-325 mg 00 :00 every 4 l per tablet (four) hours as needed for moderate pain for up to 7 days .acute pain. Max Daily Amount: 6 tablets HYDROcodone 2021-0 2021- No 1{tbl} Q4H Take 1 [facility] -acetaminop 2-17 02-[address] [facility] (X BODY) 00:00: 05:59 mouth [facility] 5-325 mg 00 :00 every 4 l per tablet (four) hours as needed for moderate pain for up to 7 days .acute pain. Max Daily Amount: 6 tablets HYDROcodone 2021-0 2021- 1{tbl} Q4H Take 1 [facility] -acetaminop 2-17 02-[address] [facility] (X BODY) 00:00: 05:59 [facility] 5-325 mg 00 :00 every 4 l per tablet (four) hours as needed for moderate pain for up to 7 days .acute pain. Max Daily Amount: 6 tablets HYDROcodone 2021-0 2021- No 1{tbl} Q4H Take 1 [facility] -acetaminop 2-17 02-[address] [facility] (X BODY) 00:00: 05:59 mouth [facility] 5-325 mg 00 :00 every 4 l per tablet (four) hours as needed for moderate pain for up to 7 days .acute pain. Max Daily Amount: 6 tablets HYDROcodone 2021-0 2021- No 1{tbl} Q4H Take 1 [facility] -acetaminop 2-17 02-[address] [facility] (X BODY) 00:00: 05:59 mouth [facility] 5-325 mg 00 :00 every 4 l per tablet (four) hours as needed for moderate pain for up to 7 days .acute pain. Max Daily Amount: 6 tablets HYDROcodone 2021-0 2021- No 1{tbl} Q4H Take 1 [facility] -acetaminop 2-17 02-[address] [facility] (X BODY) 00:00: 05:59 mouth [facility] 5-325 mg 00 :00 every 4 l per tablet (four) hours as needed for moderate pain for up to 7 days .acute pain. Max Daily Amount: 6 tablets HYDROcodone 2021-0 2021- [place] [id number] 1{tbl} Q4H Take 1 [facility] -acetaminop 2-17 -[address] [facility] (X BODY) 00:00: 05:59 mouth [facility] 5-325 mg 00 :00 every 4 l per tablet (four) hours as needed for moderate pain for up to 7 days .acute pain. Max Daily Amount: 6 tablets HYDROcodone 2021-0 2021- [place] [id number] 1{tbl} Q4H Take 1 [facility] -acetaminop 2-17 - tablet by [facility] (X BODY) 00:00: 05:59 [facility] 5-325 mg [...] times a day for 5 days. ciprofloxac 2-0 2022- No 500mg Q.5D Take 1 [facility] (Cipro) 03-[address] 500 MG 00:00: 05:59 (500 mg [facility]osp[facility] tablet 00 :00 total) by l mouth 2 (two) times a day for 5 days. ciprofloxac 2-0 2022- No 500mg Q.5D Take 1 [facility] (Cipro) 03-[address] 500 MG 00:00: 05:59 (500 mg [facility] tablet 00 :00 total) by l mouth 2 (two) times a day for 5 days. ciprofloxac 2-0 2022- No 500mg Q.5D Take 1 [facility] (Cipro) 03-[address] 500 MG 00:00: 05:59 (500 mg [facility] tablet 00 :00 total) by l mouth 2 (two) times a day for 5 days. ciprofloxac 2-0 2022- No 500mg Q.5D Take 1 [facility] (Cipro) 03-[address] 500 MG 00:00: 05:59 (500 mg [facility] tablet 00 :00 total) by l mouth 2 (two) times a day for 5 days. ciprofloxac 2-0 2022- No 500mg Q.5D Take 1 [facility] (Cipro) 03-[address] 500 MG 00:00: 05:59 (500 mg [facility] tablet 00 :00 total) by l mouth 2 (two) times a day for 5 days. ciprofloxac 2-0 2022- No 500mg Q.5D Take 1 [facility] (Cipro) 03-[address] 500 MG 00:00: 05:59 (500 mg [facility] tablet 00 :00 total) by l mouth 2 (two) times a day for 5 days. ciprofloxac 2-0 2022- No 500mg Q.5D Take 1 Me [...] 10 daily. l (1,000 unit) capsule isosorbide 0 Yes 20mg Q.[id number] Take 20 mg [facility] dinitrate 1-25 [id number] [address] mouth [address] (ISORDIL) 15:58: 3D (three) Hospi ta 20 MG 10 times a l tablet day. hydrALAZINE 0 Yes 25mg Q.[id number] Take 25 mg [facility] (APRESOLINE 1-25 [id number] [address] mouth 3 st ) 25 MG 15:58: 3D (three) [facility]ospita tablet 10 times a l day. calcium 0 Yes 1334mg Q.[id number] Take 1,334 [facility] acetate,silvano 1-25 [id number] mg by s t sphat bind, 15:58: [...] Q.5D Take 1 [facility] (Cipro) 2-27 03-[address] 500 MG 00:00: 05:59 (500 mg [facility] tablet 00 :00 total) by l mouth 2 (two) times a day for 7 days. isosorbide 2020- No 20mg Q.[id number] Take 20 mg [facility] dinitrate 6-10 06-10 [id number] by mouth [address] (ISORDIL) 16:31: 00:00 3D (three) [facility] 20 MG 00 :00 times a l tablet day. carvediloL 2020- No 6.25mg Q.5D Take 6.25 [facility] (COREG) 6-10 06-[address] 6.25 MG 16:31: 00:00 mouth 2 Hospit a tablet 00 :00 (two) l times a day with meals. hydrALAZINE 2020- No 37.5mg Q.[id number] Take 37.5 [facility] (APRESOLINE 6-10 06-[id number] by st ) 25 MG 16:31: 00:00 3D mouth 3 Hospit a tablet 00 :00 (three) l times a day. pantoprazol No 40mg Q24H Take 40 mg [facility] [...] 30 days. LANTUS 2015-02 No [facility] SOLOSTAR 0-03 05- st 100 unit/mL 00:00: 00:00 Hospi ta (3 mL) 00 :00 l insulin pen atorvastati 2020- No [facility] (LIPITOR) 10-23 st 80 MG 00:00: 00:00 [facility]osp[facility] tablet 00 :00 l lisinopril 2020- No [facility] (PRINIVIL,Z 09-19 st ESTRIL) 40 00:00: 00:00 Hospit a MG tablet 00 :00 l Lantus 2014-02 Yes [facility] INJECT 50 M emoria [facility] 2-03 [place] UNITS l 03:02: SUBCUTANEO [place] 19 USLY ONCE DAILY Lantus 2014-02 Yes [facility] INJECT 50 M emoria [facility] 2-03 [place] UNITS l 03:02: SUBCUTANEO [place] 19 USLY ONCE DAILY Lantus 2014-02 Yes Pallavolu INJECT 50 M emoria [facility] 2-03 [place] UNITS l 03:02: SUBCUTANEO [place] 19 USLY ONCE DAILY Lantus 2014-02 Yes Pallavolu INJECT 50 M emoria [facility] 2-03 [place] UNITS l 03:02: SUBCUTANEO [place] 19 USLY ONCE DAILY Lantus 2014-02 Yes [facility] INJECT 50 M emoria [facility] 2-03 [place] UNITS l 03:02: SUBCUTANEO [place] 19 USLY ONCE DAILY Lantus 2014-02 Yes Pall[facility]olu INJECT 50 M emoria [facility] 2-03 [place] UNITS l 03:02: SUBCUTANEO [place] 19 USLY ONCE DAILY Lantus 2014-02 Yes Pallavolu INJECT 50 M emoria [facility] 2-03 [place] UNITS l 03:02: SUBCUTANEO [place] 19 USLY ONCE DAILY Lantus 2014-02 Yes [facility]olu INJECT 50 M emoria [place] 2-03 [place] UNITS l 03:02: SUBCUTANEO [place] 19 USLY ONCE DAILY Lantus 2014-02 Yes Pallavolu INJECT 50 M emoria [place] 2-03 [place] UNITS l 03:02: SUBCUTANEO [place] 19 USLY ONCE DAILY Lantus 2014-02 Yes [facility] INJECT 50 M emoria [facility] 2-03 [place] UNITS l 03:02: SUBCUTANEO 19 USLY ONCE DAILY Fenofibrate Yes [facility] TAKE ONE [facility] 4-15 [place] TABLET BY l 02:03: MOUTH ONCE 24 DAILY Novolin Yes [facility] 20 UNITS M emoria 70/30 4-15 [place] l 02:03: Meclizine Yes [facility] 1 tablet [facility] HCl 4-15 [place] l 02:03: Pantoprazol Yes [facility] 1 tablet [facility] e Sodium 4-15 [place] l 02:03: Lisinopril Yes [facility] TAKE ONE [facility] 4-15 [place] TABLET BY l 02:03: MOUTH ONCE 24 DAILY Plavix Yes [facility] 1 tablet Me moria 4-15 [place] Once a day l 02:03: Orally 90 24 days Carvedilol Yes [facility] TAKE ONE [facility] 4-15 [place] TABLET BY l 02:03: MOUTH 24 TWICE DAILY Aspirin Yes [facility] 1 tablet M emoria 4-15 [place] l 02:03: Simvastatin Yes [facility] 1 tablet [facility] 4-15 [place] l 02:03: Pantoprazol Yes [facility] 1 tablet [facility] e Sodium 4-15 [place] l 02:03: Carvedilol Yes [facility] TAKE ONE [facility] 4-15 [place] TABLET BY l 02:03: MOUTH 24 TWICE DAILY Plavix Yes [facility] 1 tablet Me moria 4-15 [place] Once a day l 02:03: Orally 90 24 days Novolin Yes [facility] 20 UNITS M emoria 70/30 4-15 [place] l 02:03: Fenofibrate Yes [facility] TAKE ONE [facility] 4-15 [place] TABLET BY l 02:03: MOUTH ONCE 24 DAILY Simvastatin Yes [facility] 1 tablet [facility] 4-15 [place] l 02:03: Meclizine Yes [facility] 1 tablet [facility] HCl 4-15 [place] l 02:03: Lisinopril Yes [facility] TAKE ONE [facility] 4-15 [place] TABLET BY l 02:03: MOUTH ONCE 24 DAILY Aspirin Yes [facility] 1 tablet M emoria 4-15 [place] l 02:03: Pantoprazol Yes [facility] 1 tablet [facility] e Sodium 4-15 [place] l 02:03: Carvedilol Yes [facility] TAKE ONE [facility] 4-15 [place] TABLET BY l 02:03: MOUTH TWICE DAILY Plavix Yes [facility] 1 tablet Me moria 4-15 [place] Once a day l 02:03: Orally 90 days Novolin Yes [facility] 20 UNITS M emoria 70/30 4-15 [place] l 02:03: Fenofibrate Yes [facility] TAKE ONE [facility] 4-15 [place] TABLET BY l 02:03: MOUTH ONCE DAILY Simvastatin Yes [facility] 1 tablet [facility] 4-15 [place] l 02:03: Meclizine Yes [facility] 1 tablet [facility] HCl 4-15 [place] l 02:03: Lisinopril Yes [facility] TAKE ONE [facility] 4-15 [place] TABLET BY l 02:03: MOUTH ONCE DAILY Aspirin Yes [facility] 1 tablet M emoria 4-15 [place] l 02:03: Pantoprazol Yes [facility] 1 tablet [facility] e Sodium 4-15 [place] l 02:03: Carvedilol Yes [facility]olu TAKE ONE [facility] 4-15 [place] TABLET BY l 02:03: MOUTH 24 TWICE DAILY Plavix Yes [facility] 1 tablet Me moria 4-15 [place] Once a day l 02:03: Orally 90 24 days Novolin Yes [facility] 20 UNITS M emoria 70/30 4-15 [place] l 02:03: Fenofibrate Yes [facility] TAKE ONE [facility] 4-15 [place] TABLET BY l 02:03: MOUTH ONCE DAILY Simvastatin Yes [facility] 1 tablet [facility] 4-15 [place] l 02:03: Meclizine Yes [facility] 1 tablet [facility] HCl 4-15 [place] l 02:03: Lisinopril Yes [facility] TAKE ONE [facility] 4-15 [place] TABLET BY l 02:03: MOUTH ONCE DAILY Aspirin Yes [facility]olu 1 tablet M emoria 4-15 [place] l 02:03: Pantoprazol Yes [facility] 1 tablet [facility] e Sodium 4-15 [place] l 02:03: Carvedilol Yes [facility] TAKE ONE [facility] 4-15 [place] TABLET BY l 02:03: MOUTH TWICE DAILY Plavix Yes Pall[facility] 1 tablet Me moria 4-15 [place] Once a day l 02:03: Orally 90 days Novolin Yes [facility] 20 UNITS M emoria 70/30 4-15 [place] l 02:03: Fenofibrate Yes [facility] TAKE ONE [facility] 4-15 [place] TABLET BY l 02:03: MOUTH ONCE DAILY Simvastatin Yes Pallavolu 1 tablet [facility] 4-15 [place] l 02:03: Meclizine Yes Pall[facility] 1 tablet [facility] HCl 4-15 [place] l 02:03: Lisinopril Yes [facility] TAKE ONE [facility] 4-15 [place] TABLET BY l 02:03: MOUTH ONCE DAILY Aspirin Yes Pallavolu 1 tablet M emoria 4-15 [place] l 02:03: Pantoprazol Yes [facility] 1 tablet [facility] e Sodium 4-15 [place] l 02:03: Carvedilol Yes [facility] TAKE ONE [facility] 4-15 [place] TABLET BY l 02:03: MOUTH TWICE DAILY Plavix Yes [facility] 1 tablet Me moria 4-15 [place] Once a day l 02:03: Orally 90 days Novolin Yes [facility] 20 UNITS M emoria 70/30 4-15 [place] l 02:03: Fenofibrate Yes [facility] TAKE ONE [facility] 4-15 [place] TABLET BY l 02:03: MOUTH ONCE DAILY Simvastatin Yes [facility] 1 tablet [facility] 4-15 [place] l 02:03: Meclizine Yes [facility] 1 tablet [facility] HCl 4-15 [place] l 02:03: Lisinopril Yes [facility] TAKE ONE [facility] 4-15 [place] TABLET BY l 02:03: MOUTH ONCE DAILY Aspirin Yes [facility] 1 tablet M emoria 4-15 [place] l 02:03: Fenofibrate Yes [facility] TAKE ONE [facility] 4-15 [place] TABLET BY l 02:03: MOUTH ONCE DAILY Novolin Yes [facility] 20 UNITS M emoria 70/30 4-15 [place] l 02:03: Meclizine Yes [facility] 1 tablet [facility] HCl 4-15 [place] l 02:03: Pantoprazol Yes [facility] 1 tablet [facility] e Sodium 4-15 [place] l 02:03: Lisinopril Yes [facility] TAKE ONE [facility] 4-15 [place] TABLET BY l 02:03: MOUTH ONCE DAILY Plavix Yes [facility] 1 tablet Me moria 4-15 [place] Once a day l 02:03: Orally 90 days Carvedilol Yes Pall[facility]olu TAKE ONE [facility] 4-15 [place] TABLET BY l 02:03: MOUTH TWICE DAILY Aspirin Yes Pall[facility] 1 tablet M emoria 4-15 [place] l 02:03: Simvastatin Yes [facility] 1 tablet [facility] 4-15 [place] l 02:03: Fenofibrate Yes [facility] TAKE ONE [facility] 4-15 [place] TABLET BY l 02:03: MOUTH ONCE DAILY Novolin Yes [facility] 20 UNITS M emoria 70/30 4-15 [place] l 02:03: Meclizine Yes [facility] 1 tablet [facility] HCl 4-15 [place] l 02:03: Pantoprazol Yes [facility] 1 tablet [facility] e Sodium 4-15 [place] l 02:03: Lisinopril Yes [facility] TAKE ONE [facility] 4-15 [place] TABLET BY l 02:03: MOUTH ONCE DAILY Plavix Yes [facility] 1 tablet Me moria 4-15 [place] Once a day l 02:03: Orally 90 days Carvedilol Yes Pall[facility]olu TAKE ONE [facility] 4-15 [place] TABLET BY l 02:03: MOUTH TWICE DAILY Aspirin Yes Pallav[facility] 1 tablet M emoria 4-15 [place] l 02:03: Simvastatin Yes [facility] 1 tablet [facility] 4-15 [place] l 02:03: Fenofibrate Yes [facility] TAKE ONE [facility] 4-15 [place] TABLET BY l 02:03: MOUTH ONCE DAILY Novolin Yes [facility] 20 UNITS M emoria 70/30 4-15 [place] l 02:03: Meclizine Yes [facility] 1 tablet [facility] HCl 4-15 [place] l 02:03: Pantoprazol Yes [facility] 1 tablet [facility] e Sodium 4-15 [place] l 02:03: Lisinopril Yes [facility] TAKE ONE [facility] 4-15 [place] TABLET BY l 02:03: MOUTH ONCE DAILY Plavix Yes [facility] 1 tablet Me moria 4-15 [place] Once a day l 02:03: Orally 90 days Carvedilol Yes [facility] TAKE ONE [facility] 4-15 [place] TABLET BY l 02:03: MOUTH TWICE DAILY Aspirin Yes Pallavolu 1 tablet M emoria 4-15 [place] l 02:03: Simvastatin Yes [facility] 1 tablet [facility] 4-15 [place] l 02:03: Fenofibrate Yes [facility] TAKE ONE [facility] 4-15 [place] TABLET BY l 02:03: MOUTH ONCE DAILY Novolin Yes [facility] 20 UNITS M emoria 70/30 4-15 [place] l 02:03: Meclizine Yes [facility] 1 tablet [facility] HCl 4-15 [place] l 02:03: Pantoprazol Yes [facility] 1 tablet [facility] e Sodium 4-15 [place] l 02:03: Lisinopril Yes [facility] TAKE ONE [facility] 4-15 [place] TABLET BY l 02:03: MOUTH ONCE DAILY Plavix Yes [facility] 1 tablet Me moria 4-15 [place] Once a day l 02:03: Orally 90 24 days Carvedilol Yes [facility] TAKE ONE [facility] 4-15 [place] TABLET BY l 02:03: MOUTH TWICE DAILY Aspirin Yes [facility] 1 tablet M emoria 4-15 [place] l 02:03: Simvastatin Yes [facility] 1 tablet Mem[facility] 4-15 [place] l 02:03: Simvastatin Yes [facility] 1 tablet [facility] 4-15 [place] l 02:02: Simvastatin Yes [facility] 1 tablet [facility] 4-15 [place] l 02:02: Simvastatin Yes [facility]av[facility] 1 tablet Memoria 4-15 [place] l 02:02: Simvastatin Yes [facility] 1 tablet Memoria 4-15 [place] l 02:02: Simvastatin Yes [facility] 1 tablet Mem[facility] 4-15 [place] l 02:02: Simvastatin Yes [facility] 1 tablet [facility] 4-15 [place] l 02:02: Simvastatin 2015-0 Yes [facility] 1 tablet [facility] 4-15 [place] l 02:02: Simvastatin 2015-0 Yes [facility]av[facility] 1 tablet [facility] 4-15 [place] l 02:02: [place] Simvastatin 2015-0 Yes Pallavolu 1 tablet Mem[facility] 4-15 [place] l 02:02: Simvastatin 2015-0 Yes Pallav[facility] 1 tablet Mem[facility] 4-15 [place] l 02:02: [place] 48 Cipro 2015-0 Yes Pallavolu 1 tablet Mem oria 3-20 [place] l 00:00: Cipro 2015-0 Yes [facility] 1 tablet Mem oria 3-20 [place] l 00:00: Cipro 2015-0 Yes [facility] 1 tablet Mem oria 3-20 [place] l 00:00: Cipro 2015-0 Yes Pallavolu 1 tablet Mem oria 3-20 [place] l 00:00: Cipro 2015-0 Yes Pallavolu 1 tablet Mem oria 3-20 [place] l 00:00: Cipro 2015-0 Yes Pallavolu 1 tablet Mem oria 3-20 [place] l 00:00: Cipro 2015-0 Yes Pallavolu 1 tablet Mem oria 3-20 [place] l 00:00: Cipro 2015-0 Yes Pallavolu 1 tablet Mem oria 3-20 [place] l 00:00: Cipro 2015-0 Yes Pallavolu 1 tablet Mem oria 3-20 [place] l 00:00: Cipro 2015-0 Yes Pallavolu 1 tablet Mem oria 3-20 [place] l 00:00: Lantus 2014-0 Yes [facility] 40 UNITS Me moria SoloStar 3-13 [place] l 00:00: Lantus 2014-0 Yes [facility] 40 UNITS Me moria SoloStar 3-13 [place] l 00:00: Lantus 2014-0 Yes [facility] 40 UNITS Me moria SoloStar 3-13 [place] l 00:00: Lantus 2014-0 Yes [facility] 40 UNITS Me moria SoloStar 3-13 [place] l 00:00: Lantus Yes [facility] 40 UNITS Me shani Martinez 3-13 [place] l 00:00: Lantus Yes [facility] 40 UNITS Me shani Martinez 3-13 [place] l 00:00: Lantus Yes [facility] 40 UNITS Me shani Martinez 3-13 [place] l 00:00: Lantus Yes [facility] 40 UNITS Me shani Martinez 3-13 [place] l 00:00: Lantus Yes [facility] 40 UNITS Me shani Martinez 3-13 [place] l 00:00: tus Yes [facility] 40 UNITS Me shani Martinez 3-13 [place] l 00:00: Aspirin 81 Aspirin 81 No [...] Date Status Commen ts Source Name Name [facility] 2014-11-[address] [facility] 00:00:00 [facility] 2014-11-[address] [facility] 00[facility]00:00 [facility] 2014-11-[address] [facility] 00[facility]00:00 [facility] 2014-11-[address] [facility] 00[facility]00:00 [facility] 2014-11-[address] [facility] 00[facility]00:00 [facility] 2014-11-[address] [facility] 00[facility]00:00 [facility] 2014-11-[address] [facility] 00:00:00 [facility] 2014-11-[address] [facility] 00[facility]00:00 [facility] 2014-11-[address] [facility] 00:00:00 [facility] 2014-11-[address] [facility] 00:00:00 [facility] 2014-11-[address] [facility] 00:00:00 [facility] 2014-11-[address] [facility] 00:00:00 [facility] Vital Signs Vital Name Observation Time Observation Value Comments Source WEIGHT 2022-06-18 17:00:00 82.1 kg WEIGHT 2022-06-15 18:53:00 82.1 kg WEIGHT 2022-06-14 20:00:00 82.1 kg WEIGHT 2022-06-13 06:00:00 82.101 kg HEIGHT 2022-06-12 10:43:00 165.1 cm WEIGHT 2022-06-12 10:43:00 82.32 kg WEIGHT 2022-06-12 04:25:00 82.328 kg WEIGHT 2022-06-10 19:30:00 83.1 kg WEIGHT 2022-06-10 05:58:00 83.099 kg WEIGHT 2022-06-07 17:39:00 81.7 kg WEIGHT 2022-06-07 06:00:00 81.738 kg WEIGHT 2022-06-06 17:30:00 83.1 kg WEIGHT 2022-06-06 06:00:00 83.144 kg WEIGHT 2022-06-04 20:17:00 86.7 kg WEIGHT 2022-06-03 18:35:00 86.7 kg WEIGHT 2022-05-31 18:48:00 86.7 kg WEIGHT 2022-05-28 21:25:00 86.7 kg WEIGHT 2022-05-27 05:18:00 86.7 kg WEIGHT 2022-06-18 17:00:00 82.1 kg WEIGHT 2022-06-15 18:53:00 82.1 kg WEIGHT 2022-06-14 20:00:00 82.1 kg WEIGHT 2022-06-13 06:00:00 82.101 kg HEIGHT 2022-06-12 10:43:00 165.1 cm WEIGHT 2022-06-12 10:43:00 82.32 kg WEIGHT 2022-06-12 04:25:00 82.328 kg WEIGHT 2022-06-10 19:30:00 83.1 kg WEIGHT 2022-06-10 05:58:00 83.099 kg WEIGHT 2022-06-07 17:39:00 81.7 kg WEIGHT 2022-06-07 06:00:00 81.738 kg WEIGHT 2022-06-06 17:30:00 83.1 kg WEIGHT 2022-06-06 06:00:00 83.144 kg WEIGHT 2022-06-04 20:17:00 86.7 kg WEIGHT 2022-06-03 18:35:00 86.7 kg WEIGHT 2022-05-31 18:48:00 86.7 kg WEIGHT 2022-05-28 21:25:00 86.7 kg WEIGHT 2022-05-27 05:18:00 86.7 kg WEIGHT 2022-06-18 17:00:00 82.1 kg WEIGHT 2022-06-15 18:53:00 82.1 kg WEIGHT 2022-06-14 20:00:00 82.1 kg WEIGHT 2022-06-13 06:00:00 82.101 kg HEIGHT 2022-06-12 10:43:00 165.1 cm WEIGHT 2022-06-12 10:43:00 82.32 kg WEIGHT 2022-06-12 04:25:00 82.328 kg WEIGHT 2022-06-10 19:30:00 83.1 kg WEIGHT 2022-06-10 05:58:00 83.099 kg WEIGHT 2022-06-07 17:39:00 81.7 kg WEIGHT 2022-06-07 06:00:00 81.738 kg WEIGHT 2022-06-06 17:30:00 83.1 kg WEIGHT 2022-06-06 06:00:00 83.144 kg WEIGHT 2022-06-04 20:17:00 86.7 kg WEIGHT 2022-06-03 18:35:00 86.7 kg WEIGHT 2022-05-31 18:48:00 86.7 kg WEIGHT 2022-05-28 21:25:00 86.7 kg WEIGHT 2022-05-27 05:18:00 86.7 kg WEIGHT 2022-03-29 06:00:00 85.231 kg HEIGHT 2022-03-18 17:08:00 175.3 cm WEIGHT 2022-03-18 17:08:00 85.276 kg WEIGHT 2022-03-29 06:00:00 85.231 kg HEIGHT 2022-03-18 17:08:00 175.3 cm WEIGHT 2022-03-18 17:08:00 85.276 kg WEIGHT 2022-03-29 06:00:00 85.231 kg HEIGHT 2022-03-18 17:08:00 175.3 cm WEIGHT 2022-03-18 17:08:00 85.276 kg WEIGHT 2022-02-22 19:00:00 85.7 kg HEIGHT [...] 78.4 kg oximetry 2021-10-23 15:00:00 99 % [facility] respiratory rate 2021-10-23 15:00:00 17 /min Comm on [facility] blood pressure 2021-10-23 15:00:00 114 mm[Hg] [facility] - systolic [facility] blood pressure 2021-10-23 15:00:00 55 mm[Hg] [facility] - diastolic [facility] height 2021-10-23 15:00:00 65 [in_i] [facility] weight 2021-10-23 15:00:00 179 [lb_av] [facility] temperature 2021-10-23 15:00:00 98.7 [degF] [facility] bmi 2021-10-23 15:00:00 29.78 kg/m2 [facility] height 2021-10-23 14:20:00 65 [in_i] [facility] weight 2021-10-23 14:20:00 179 [lb_av] [facility] temperature 2021-10-23 14:20:00 98.7 [degF] [facility] bmi 2021-10-23 14:20:00 29.78 kg/m2 [facility] oximetry 2021-10-23 14:20:00 99 % [facility] respiratory rate 2021-10-23 14:20:00 17 /min Comm on [facility] blood pressure 2021-10-23 14:20:00 114 mm[Hg] [facility] - systolic [facility] blood pressure 2021-10-23 14:20:00 55 mm[Hg] [facility] - diastolic [facility] height 2021-09-24 10:00:00 65 [in_i] [facility] weight 2021-09-24 10:00:00 179 [lb_av] [facility] temperature 2021-09-24 10:00:00 97.5 [degF] [facility] bmi 2021-09-24 10:00:00 29.78 kg/m2 [facility] oximetry 2021-09-24 10:00:00 100 % [facility] respiratory rate 2021-09-24 10:00:00 16 /min Comm on [facility] blood pressure 2021-09-24 10:00:00 120 mm[Hg] [facility] - systolic [facility] blood pressure 2021-09-24 10:00:00 68 mm[Hg] [facility] - diastolic [facility] Systolic blood 2022-06-20 12:17:00 144 mm[Hg] [facility] Diastolic blood 2022-06-20 12:17:00 59 mm[Hg] [facility] rate 2022-06-20 12:17:00 71 /min [facility] Body temperature 2022-06-20 12:17:00 35.72 Jennyfer [facility] Respiratory rate 2022-06-20 12:17:00 18 /min [facility] Oxygen saturation in 2022-06-20 12:17:00 100 /min [facility] Arterial blood by Medical Ce [facility]ter Pulse oximetry Body weight 2022-06-18 17:00:00 82.1 kg [facility] BMI 2022-06-18 17:00:00 30.12 kg/m2 [facility] Body height 2022-06-12 10:43:00 165.1 cm [facility] Systolic blood 2022-05-31 13:03:00 126 mm[Hg] [facility] Diastolic blood 2022-05-31 13:03:00 62 mm[Hg] [facility] Heart rate 2022-05-31 13:03:00 54 /min [facility] Body temperature 2022-05-31 13:03:00 35.83 Jennyfer [facility] Respiratory rate 2022-05-31 13:03:00 18 /min [facility] Oxygen saturation in 2022-05-31 13:03:00 100 /min [facility] Arterial blood by [facility] Pulse oximetry Heart rate 2022-05-31 09:00:00 68 /min [facility] Systolic blood 2022-05-31 08:45:00 105 mm[Hg] [facility] Diastolic blood 2022-05-31 08:45:00 55 mm[Hg] [facility] Body temperature 2022-05-31 08:45:00 36.06 Jennyfer [facility] Respiratory rate 2022-05-31 08:45:00 18 /min [facility] Oxygen saturation in 2022-05-31 08:45:00 98 /min [facility] Arterial blood by [facility] Pulse oximetry Body weight 2022-05-28 21:25:00 86.7 kg [facility] BMI 2022-05-28 21:25:00 28.23 kg/m2 [facility] Systolic blood 2022-03-31 09:42:00 127 mm[Hg] [facility] Diastolic blood 2022-03-31 09:42:00 63 mm[Hg] [facility] Heart rate 2022-03-31 09:42:00 85 /min [facility] Body temperature 2022-03-31 07:10:00 36.39 [facility] [facility] Res[facility] rate 2022-03-31 07:10:00 19 /min [facility] Oxygen saturation in 2022-03-31 07:10:00 97 /min [facility] Arterial blood by Medical Ce nter Pulse oximetry Body weight 2022-03-29 06:00:00 85.231 kg [facility] BMI 2022-03-29 06:00:00 27.75 kg/m2 [facility] Body height 2022-03-18 17:08:00 175.3 cm [facility] Systolic blood 2022-03-05 17:00:00 116 mm[Hg] [facility] Diastolic blood 2022-03-05 17:00:00 57 mm[Hg] [facility] Heart rate 2022-03-05 17:00:00 71 /min [facility] Body temperature 2022-03-05 17:00:00 36.28 Jennyfer [facility] Respiratory rate 2022-03-05 17:00:00 17 /min [facility] Oxygen saturation in 2022-03-05 17:00:00 98 /min [facility] Arterial blood by Medical Ce nter Pulse oximetry Body weight 2022-02-22 19:00:00 85.7 kg [facility] BMI 2022-02-22 19:00:00 27.90 kg/m2 [facility] Body height 2022-02-17 02:00:00 175.3 cm [facility] Systolic blood 2021-11-29 22:00:00 122 mm[Hg] [facility] Diastolic blood 2021-11-29 22:00:00 60 mm[Hg] [facility] Heart rate 2021-11-29 22:00:00 79 /min [facility] Respiratory rate 2021-11-29 22:00:00 20 /min [facility] Oxygen saturation in 2021-11-29 22:00:00 99 /min [facility] Arterial blood by Medical Ce nter Pulse oximetry Body temperature 2021-11-29 20:00:00 36.89 Jennyfer [facility] Body weight 2021-11-29 17:10:00 78.4 kg [facility] Systolic blood 2021-06-02 18:12:00 123 mm[Hg] [facility] pressure Diastolic blood 2021-06-02 18:12:00 70 mm[Hg[facility] Heart rate 2021-06-02 18:12:00 88 /min [facility] Body height 2021-06-02 18:12:00 165.1 cm [facility] Body weight 2021-06-02 18:12:00 104.781 kg [facility] BMI 2021-06-02 18:12:00 38.44 kg/m2 [facility] Oxygen saturation in 2021-06-02 18:12:00 98 /min [facility] Arterial blood by Pulse oximetry Respiratory rate 2021-04-16 19:59:00 18 /min [facility] Body temperature 2021-04-16 14:35:00 36.61 Jennyfer [facility] Body height 2021-03-25 16:20:00 165.1 cm [facility] Body weight 2021-03-25 16:20:00 89.086 kg [facility] BMI 2021-03-25 16:20:00 32.68 kg/m2 [facility] Systolic blood 2021-03-25 15:49:00 128 mm[Hg] [facility] pressure Diastolic blood 2021-03-25 15:49:00 60 mm[Hg] [facility] Heart rate 2021-03-25 15:49:00 73 /min [facility] Body temperature 2021-03-25 15:49:00 35.89 Jennyfer [facility] Respiratory rate 2021-03-25 15:49:00 20 /min [facility] Oxygen saturation in 2021-03-25 15:49:00 100 /min [facility] Arterial blood by Pulse oximetry Weight 2014-06-10 15:00:00 [facility] Temperature Oral (F) 2014-06-10 15:00:00 98.4 F [facility] Heart Rate 2014-06-10 15:00:00 [facility] [place] Diastolic (mm Hg) 2014-06-10 15:00:00 [facility] Systolic (mm Hg) 2014-06-10 15:00:00 Alireza [facility] [place] Weight 2014-05-17 15:15:00 [facility] Temperature Oral (F) 2014-05-17 15:15:00 98.6 F [facility] Diastolic (mm Hg) 2014-05-17 15:15:00 [facility] Systolic (mm Hg) 2014-05-17 15:15:00 Alireza [facility] Weight 2014-03-25 15:45:00 [facility] [place] Temperature Oral (F) 2014-03-25 15:45:00 97.9 F [facility] Heart Rate 2014-03-25 15:45:00 [facility] Diastolic (mm Hg) 2014-03-25 15:45:00 [facility] [place] Systolic (mm Hg) 2014-03-25 15:45:00 Alireza [facility] Procedures Procedure Date / Time Performing Clinician Source Performed POCT-GLUCOSE METER 2022-06-20 12:19:00 Nalam, [facility] POCT-GLUCOSE METER 2022-06-20 05:24:00 [facility] 2022-06-20 04:23:00 David Bermudez [facility] BODY FLUID CELL COUNT WITH 2022-06-20 04:23:00 David Bermudez [facility] POCT-GLUCOSE METER 2022-06-20 00:14:00 Nalam, [facility] POCT-GLUCOSE METER 2022-06-19 17:29:00 [facility] 2022-06-19 16:43:00 [facility]SE METER 2022-06-19 12:19:00 [facility]SE [facility]ER 2022-06-19 12:02:00 [facility]SE METER 2022-06-19 06:28:00 [facility] PO[facility]SE METER 2022-06-18 23:50:00 Nalam, Anusha [facility] POCT-GLUCOSE METER 2022-06-18 18:18:00 [facility] 2022-06-18 12:13:00 [facility] POCT-[facility]SE METER 2022-06-18 07:54:00 [facility] POCT-[facility]SE METER 2022-06-18 07:20:00 [facility] POCT-[facility]UCOSE METER 2022-06-17 21:37:00 Chyna, [facility] POCT-GLUCOSE METER 2022-06-17 18:33:00 Chyna [facility] BASIC METABOLIC PANEL 2022-06-17 12:46:00 Catherine Razo [facility] POCT-GLUCOSE METER 2022-06-17 12:38:00 Chyna [facility] URINALYSIS W/ REFLEX URINE 2022-06-17 11:53:00 [facility] 2022-06-17 11:53:00 [facility] POCT-GLUCOSE METER 2022-06-17 06:17:00 Vandana [facility] POCT-GLUCOSE METER 2022-06-17 00:38:00 [facility] POCT-[facility]UCOSE METER 2022-06-16 18:07:00 [facility] POCT-[facility]UCOSE METER 2022-06-16 11:50:00 Vandana, [facility] POCT-GLUCOSE METER 2022-06-16 06:05:00 Yordy Wilson [facility] POCT-GLUCOSE METER 2022-06-16 02:10:00 Anibal Wilsonshubham [facility] POCT-GLUCOSE METER 2022-06-15 17:41:00 Yordy Wilson [facility] POCT-GLUCOSE METER 2022-06-15 11:18:00 Yordy Wilson [facility] POCT-GLUCOSE METER 2022-06-15 06:47:00 Yordy Wilson [facility] POCT-GLUCOSE METER 2022-06-15 01:43:00 Yordy Wilson [facility] POCT-GLUCOSE METER 2022-06-15 01:42:00 Yordy Wilson [facility] BODY FLUID CELL COUNT WITH 2022-06-14 20:19:00 Yaneth Phan [facility] PERITONEAL DIALYSIS 2022-06-14 20:15:00 David Bermudez [facility] POCT-GLUCOSE METER 2022-06-14 17:43:00 Yordy Wilson [facility] CBC W/PLT COUNT & AUTO 2022-06-14 17:23:00 Montse Wilsonnavya [facility] CBC W/PLT COUNT & AUTO 2022-06-14 17:23:00 Montse Wilsonnavya [facility] POCT-GLUCOSE METER 2022-06-14 12:35:00 Yordy Wilson [facility] BASIC METABOLIC PANEL 2022-06-14 12:12:[address] [facility] POCT-GLUCOSE METER 2022-06-14 06:04:00 Yordy Wilson [facility] POCT-GLUCOSE METER 2022-06-14 00:41:00 Yordy Wilson [facility] POCT-GLUCOSE METER 2022-06-14 00:15:00 Yordy Wilson [facility] POCT-GLUCOSE METER 2022-06-13 18:11:00 Yordy Wilson [facility] CONTINUOUS AMBULATORY 2022-06-13 14:27:28 Olivier [facility] PERITONEAL DIALYSIS [facility] INPATIENT BASIC METABOLIC PANEL 2022-06-13 12:37:[address] [facility] POCT-GLUCOSE METER 2022-06-13 12:21:00 Anibal Wilsonshubham [facility] XR ABDOMEN/KUB 1 VIEW 2022-06-13 11:06:00 Yaneth Phan [facility] CBC W/PLT COUNT & AUTO 2022-06-13 06:11:00 [facility] W/PLT COUNT & AUTO 2022-06-13 06:11:00 [facility] POCT-[facility]UCOSE METER 2022-06-13 05:59:00 [facility] POCT-GLUCOSE METER 2022-06-12 23:55:00 [facility] 2022-06-12 18:41:00 [facility] BASIC METABOLIC PANEL 2022-06-12 16:52:00 [facility] 2022-06-12 16:52:00 Jacquelin Alvarenga [facility] POCT-GLUCOSE METER 2022-06-12 12:27:00 [facility] POCT-[facility]UCOSE METER 2022-06-12 06:01:00 [facility] CBC W/PLT COUNT & AUTO 2022-06-12 05:24:00 Emre Lau [facility] CBC W/PLT COUNT & AUTO 2022-06-12 05:24:00 Emre Lau [facility] POCT-GLUCOSE METER 2022-06-11 23:33:00 Steve, [facility] H. PYLORI ANTIGEN, STOOL 2022-06-11 20:23:00 Aaron Jackson [facility] POCT-GLUCOSE METER 2022-06-11 17:27:00 Steve [facility] ECG 12-LEAD 2022-06-11 16:58:08 Steve [facility] ECG 12-LEAD 2022-06-11 16:58:08 Unknown, Hl7 [facility] POCT-GLUCOSE METER 2022-06-11 11:19:00 Steve [facility] POCT-GLUCOSE METER 2022-06-11 06:07:00 Steve [facility] PT/APTT 2022-06-11 05:48:00 [facility] CBC W/PLT COUNT & AUTO 2022-06-11 03:43:00 [facility] PROTHROMBIN TIME/INR 2022-06-11 03:43:00 [facility] FIBRINOGEN 2022-06-11 03:43:00 [facility] LACTATE DEHYDROGENASE 2022-06-11 03:43:00 [facility] D-DIMER 2022-06-11 03:43:00 [facility] PERIPHERAL BLOOD SMEAR - 2022-06-11 03:43:00 [facility] BASIC METABOLIC PANEL 2022-06-11 03:43:00 [facility]ier [facility] CBC W/PLT COUNT & AUTO 2022-06-11 03:43:[address] [facility] POCT-GLUCOSE METER 2022-06-10 23:49:00 Steve [facility] POCT-GLUCOSE METER 2022-06-10 18:03:00 Yordy Wilson [facility] POCT-GLUCOSE METER 2022-06-10 11:57:00 Yordy Wilson [facility] POCT-GLUCOSE METER 2022-06-10 05:24:00 Yordy Wilson [facility] POCT-GLUCOSE METER 2022-06-10 00:01:00 Yordy Wilson [facility] POCT-GLUCOSE METER 2022-06-09 17:30:00 Yordy Wilson [facility] POCT-GLUCOSE METER 2022-06-09 12:42:00 Montse [facility] BASIC METABOLIC PANEL 2022-06-09 11:18:00 Olivier [facility] POCT-GLUCOSE METER 2022-06-09 05:32:00 Jonatan Hernandez [facility] POCT-GLUCOSE METER 2022-06-09 00:52:00 Jonatan Hernandez [facility] POCT-GLUCOSE METER 2022-06-08 17:59:00 Jonatan Hernandez [facility] POCT-GLUCOSE METER 2022-06-08 13:50:00 Jonatan Hernandez [facility] POCT-GLUCOSE METER 2022-06-08 06:10:00 Jonatan Hernandez [facility] CBC W/PLT COUNT & AUTO 2022-06-08 05:48:00 Lamberto [facility] COMPREHENSIVE METABOLIC 2022-06-08 05:48:00 Lamberto [facility] PHOSPHORUS 2022-06-08 05:48:00 Lamberto [facility] MAGNESIUM 2022-06-08 05:48:00 Lamberto [facility] CBC W/PLT COUNT & AUTO 2022-06-08 05:48:00 Lamberto [facility] POCT-GLUCOSE METER 2022-06-07 23:54:00 [facility] POCT-GLUCOSE METER 2022-06-07 17:58:00 [facility] POCT-GLUCOSE METER 2022-06-07 13:27:00 [facility] POCT-GLUCOSE METER 2022-06-07 12:26:00 [facility] POCT-[facility]SE [facility] 2022-06-07 05:54:00 [facility] CBC W/PLT COUNT & AUTO 2022-06-07 04:31:00 Lamberto [facility] COMPREHENSIVE METABOLIC 2022-06-07 04:31:00 Lamberto [facility] PHOSPHORUS 2022-06-07 04:31:00 [facility] 2022-06-07 04:31:00 Lamberto [facility] CBC W/PLT COUNT & AUTO 2022-06-07 04:31:00 Lamberto [facility] POCT-GLUCOSE METER 2022-06-07 00:34:00 [facility] POCT-GLUCOSE METER 2022-06-06 17:34:00 [facility] SARS-COV2/RT-PCR ([facility] & 2022-06-06 16:24:00 Nahomy Layne I [facility] REF LABS) [facility] XR ABDOMEN/KUB 1 VIEW 2022-06-06 12:36:00 Norma Al [facility] POCT-GLUCOSE METER 2022-06-06 12:18:00 [facility] CBC W/PLT COUNT & AUTO 2022-06-06 06:20:00 Lamberto [facility] COMPREHENSIVE METABOLIC 2022-06-06 06:20:00 [facility]US 2022-06-06 06:20:00 Lamberto, [facility] MAGNESIUM 2022-06-06 06:20:00 [facility] CBC W/PLT COUNT & AUTO 2022-06-06 06:20:00 Lamberto [facility] POCT-GLUCOSE METER 2022-06-06 05:56:00 [facility] POCT-GLUCOSE METER 2022-06-05 17:37:00 [facility] POCT-GLUCOSE METER 2022-06-05 12:06:00 [facility] CBC W/PLT COUNT & AUTO 2022-06-05 08:09:00 Lamberto [facility] COMPREHENSIVE METABOLIC 2022-06-05 08:09:00 Lamberto [facility] PHOSPHORUS 2022-06-05 08:09:00 Lamberto [facility] MAGNESIUM 2022-06-05 08:09:00 Lamberto [facility] CBC W/PLT COUNT & AUTO 2022-06-05 08:09:00 [facility] POCT-GLUCOSE METER 2022-06-05 06:30:00 [facility] POCT-GLUCOSE METER 2022-06-04 17:59:00 [facility] POCT-GLUCOSE METER 2022-06-04 12:28:00 [facility] POCT-GLUCOSE METER 2022-06-04 05:37:00 [facility] CBC W/PLT COUNT & AUTO 2022-06-04 05:36:00 Lamberto [facility] COMPREHENSIVE METABOLIC 2022-06-04 05:36:00 [facility] PHOSPH[facility]US 2022-06-04 05:36:00 Lamberto [facility] MAGNESIUM 2022-06-04 05:36:00 [facility] CBC W/PLT COUNT & AUTO 2022-06-04 05:36:00 Lambetro [facility] POCT-GLUCOSE METER 2022-06-04 00:30:00 [facility] POCT-GLUCOSE METER 2022-06-03 16:24:00 [facility] POCT-GLUCOSE METER 2022-06-03 12:42:00 [facility] NM GASTRIC EMPTYING STUDY 2022-06-03 12:33:00 Christine Allen [facility] POCT-GLUCOSE METER 2022-06-03 06:03:00 [facility] CBC W/PLT COUNT & AUTO 2022-06-03 05:00:00 Lamberto [facility] COMPREHENSIVE METABOLIC 2022-06-03 05:00:00 Lamberto [facility] PHOSPHORUS 2022-06-03 05:00:00 Lamberto [facility] MAGNESIUM 2022-06-03 05:00:00 Lamberto [facility] CBC W/PLT COUNT & AUTO 2022-06-03 05:00:00 Lamberto [facility] POCT-GLUCOSE METER 2022-06-03 01:39:00 [facility] POCT-GLUCOSE METER 2022-06-02 17:01:00 [facility] POCT-GLUCOSE METER 2022-06-02 12:38:00 [facility] CBC W/PLT COUNT & AUTO 2022-06-02 09:23:00 Lamberto, [facility] CBC W/PLT COUNT & AUTO 2022-06-02 09:23:00 [facility] POCT-GLUCOSE METER 2022-06-02 08:17:00 [facility] POCT-GLUCOSE METER 2022-06-02 06:07:00 Tiffany, Christine Calderón. [facility] COMPREHENSIVE METABOLIC 2022-06-02 04:39:00 Lamberto, [facility] PHOSPHORUS 2022-06-02 04:39:00 Lamberto, [facility] MAGNESIUM 2022-06-02 04:39:00 Lamberto, [facility] POCT-GLUCOSE METER 2022-06-01 23:56:00 Adio, Mayankabercrombie R. [facility] POCT-GLUCOSE METER 2022-06-01 18:14:00 Adio, [facility] BASIC METABOLIC PANEL 2022-06-01 16:20:00 Yaneth Phan [facility] POCT-GLUCOSE METER 2022-06-01 12:11:00 Adio, Mayankabercrombie [facility] POCT-GLUCOSE METER 2022-06-01 05:58:00 [facility] W/[facility]T [facility] & AUTO 2022-06-01 04:23:00 Lamberto, [facility] COMPREHENSIVE METABOLIC 2022-06-01 04:23:00 Lamberto [facility] PHOSPHORUS 2022-06-01 04:23:00 Lamberto, [facility] MAGNESIUM 2022-06-01 04:23:00 Lamberto [facility] CBC W/PLT COUNT & AUTO 2022-06-01 04:23:00 Lamberto [facility] POCT-GLUCOSE METER 2022-05-31 23:26:00 Adio, Christine R. [facility] POCT-GLUCOSE METER 2022-05-31 17:14:00 Adio, Mayankabercrombie R. [facility] POCT-GLUCOSE METER 2022-05-31 13:08:00 Adio, [facility]ankabercrombie [facility] POCT-GLUCOSE METER 2022-05-31 06:31:00 Lamberto [facility] CBC W/PLT COUNT & AUTO 2022-05-31 04:42:00 Lamberto [facility] COMPREHENSIVE METABOLIC 2022-05-31 04:42:00 Lamberto [facility] PANEL [facility] PHOSPHORUS 2022-05-31 04:42:00 Lamberto [facility] MAGNESIUM 2022-05-31 04:42:00 Lamberto [facility] CBC W/PLT COUNT & AUTO 2022-05-31 04:42:00 Lamberto [facility] POCT-GLUCOSE METER 2022-05-30 23:49:00 [facility] POCT-GLUCOSE METER 2022-05-30 18:47:00 Lamberto [facility] XR CHEST 1 VIEW PORTABLE / 2022-05-30 16:40:00 Usman Orantes [facility] BEDSIDE [facility] XR ABDOMEN/KUB 1 VIEW 2022-05-30 16:40:00 Lamberto [facility] ECG 12-LEAD 2022-05-30 12:57:19 [facility] ECG 12-LEAD 2022-05-30 12:57:19 Unknown, 7 [facility] ECG 12-LEAD 2022-05-30 12:57:19 Unknown, 7 [facility] POCT-GLUCOSE METER 2022-05-30 12:35:00 [facility] POCT-GLUCOSE METER 2022-05-30 06:03:00 Wendy Mascorro [facility] CBC (HEMOGRAM ONLY) 2022-05-30 04:59:00 Wendy Mascorro [facility] BASIC METABOLIC PANEL 2022-05-30 04:59:00 Wendy Mascorro [facility] MAGNESIUM 2022-05-30 04:59:00 Wedny Mascorro [facility] PHOSPHORUS 2022-05-30 04:59:00 Ludwin, [facility] POCT-GLUCOSE METER 2022-05-30 00:34:00 Wendy Mascorro [facility] PREPARE LEUKO-REDUCED RBC 2022-05-29 23:54:[address] [facility] POCT-GLUCOSE METER 2022-05-29 18:04:00 Wendy [facility] POCT-GLUCOSE METER 2022-05-29 13:04:00 [facility]OL[facility] PANEL 2022-05-29 09:05:00 [facility] 2022-05-29 09:05[facility]ED 2022-05-29 09:05:00 [facility] POCT-GLUCOSE METER 2022-05-29 05:18:00 [facility] W/PLT COUNT & AUTO 2022-05-29 03:42:[address] [facility] DIFFERENTIAL [facility] COMPREHENSIVE METABOLIC 2022-05-29 03:42:00 [place] [facility] PANEL [facility] MAGNESIUM 2022-05-29 03:42:00 [place] [facility] PHOSPHORUS 2022-05-29 03:42:00 [place] Zaid [facility] CALCIUM, IONIZED 2022-05-29 03:42:00 Rafal [facility] CBC W/PLT COUNT & AUTO 2022-05-29 03:42:[address] [facility] DIFFERENTIAL [facility] POCT-GLUCOSE METER 2022-05-28 23:44:00 Farhan [facility] BASIC METABOLIC PANEL 2022-05-28 21:25:00 Rafal [facility] BODY FLUID CELL COUNT WITH 2022-05-28 21:17:00 Lana Rodgers [facility] POCT-GLUCOSE METER 2022-05-28 17:13:00 [facility] POCT-GLUCOSE METER 2022-05-28 12:32:00 Farhan [facility] HIGH SENSITIVITY TROPONIN 2022-05-28 10:37:00 Lana Rodgers [facility] BODY FLUID CULTURE + GRAM 2022-05-28 09:13:00 Lana Rodgers CH, I [facility] HEMOGLOBIN AND HEMATOCRIT 2022-05-28 08:05:00 Maverick [facility] PROCALCITONIN 2022-05-28 08:05:00 [facility] LACTIC ACID, VENOUS 2022-05-28 08:05:00 [facility] POCT-GLUCOSE METER 2022-05-28 05:28:00 [facility] TRANSFUSE LEUKO-REDUCED 2022-05-28 05:00:00 [place] RED BLOOD CELLS [facility] HEMOGLOBIN AND HEMATOCRIT 2022-05-28 04:03:00 Maverick [facility] CBC W/PLT COUNT & AUTO 2022-05-28 03:14:00 [place]SilvianoZaid [facility] COMPREHENSIVE METABOLIC 2022-05-28 03:14:00 Zaid [place] [facility] PANEL [facility] MAGNESIUM 2022-05-28 03:14:00 Zaid West [facility] PHOSPHORUS 2022-05-28 03:14:00 [place] [facility] CBC W/PLT COUNT & AUTO 2022-05-28 03:14:00 [place] Zaid [facility] S t [facility] POCT-GLUCOSE METER 2022-05-28 00:20:00 [facility] POCT-GLUCOSE METER 2022-05-27 17:41:00 Safi, [facility] POCT-GLUCOSE METER 2022-05-27 12:14:00 Clif [facility] CORTISOL,60 MIN 2022-05-27 10:18:00 [facility] CORTISOL,30 MIN 2022-05-27 09:50:00 [facility] LACTIC ACID, VENOUS 2022-05-27 09:07:00 Angelita Oconnor [facility] ACTH STIMULATION 2022-05-27 09:07:00 [facility] VITAMIN B12 2022-05-27 09:07:00 [facility] FERRITIN 2022-05-27 09:07:00 [facility] IRON, TIBC, % SAT. 2022-05-27 09:07:00 [facility]WITHOUT FERRITIN[facility] 2022-05-27 09:07:00 [facility] BASIC METABOLIC PANEL 2022-05-27 09:07:00 [facility] MAGNESIUM 2022-05-27 09:07:00 [facility] CORTISOL,BASELINE 2022-05-27 09:07:00 [facility] LACTIC ACID, VENOUS 2022-05-27 06:31:00 Zaid West [facility] POCT-GLUCOSE METER 2022-05-27 05:28:00 [facility] 2D ECHO W/ DOPPLER 2022-05-27 05:02:44 Kayden [facility] (CW/PW/COLOR) [facility] CBC W/PLT COUNT & AUTO 2022-05-27 02:21:00 Zaid West [facility] COMPREHENSIVE METABOLIC 2022-05-27 02:21:[address] [facility] PANEL [facility] CORTISOL 2022-05-27 02:21:00 [facility] LACT[facility] ACID, VENOUS 2022-05-27 02:21:00 Zaid [facility] MAGNESIUM 2022-05-27 02:21:00 Zaid West [facility] PHOSPHORUS 2022-05-27 02:21:00 Zaid West [facility] CBC W/PLT COUNT & AUTO 2022-05-27 02:21:00 Zaid West [facility] S t [facility] DIFFERENTIAL [facility] CT ABDOMEN/PELVIS WITHOUT 2022-05-27 00:38:00 Zaid West [facility] IV CONTRAST [facility] POCT-GLUCOSE METER 2022-05-27 00:06:00 Rut Juares [facility] KETONE, BLOOD 2022-05-27 00:03:00 [facility] BLOOD CULTURE 2022-05-26 23:47:00 [facility] XR ABDOMEN/KUB 1 VIEW 2022-05-26 22:35:00 [facility] PORTABLE [facility] LACTIC ACID, VENOUS 2022-05-26 22:34:00 [facility] TSH/FREE T4 IF INDICATED 2022-05-26 22:34:00 Zaid West [facility] URINALYSIS W/ REFLEX URINE 2022-05-26 20:56:00 [facility] CULTURE [facility] TYPE AND SCREEN, AUTOMATED 2022-05-26 20:45:00 Zaid West HI [facility] LIPASE 2022-05-26 20:40:00 Zaid West [facility] B-TYPE NATRIURETIC FACTOR 2022-05-26 20:40:00 Zaid West CH I [facility] (BNP) [facility] BLOOD GAS, VENOUS 2022-05-26 20:40:00 Zaid West [facility] BLOOD CULTURE 2022-05-26 20:35:00 Maverick [facility] BODY FLUID CULTURE + GRAM 2022-05-26 20:30:[address] [facility] POCT-GLUCOSE METER 2022-05-26 20:20:00 Rut Juares [facility] CALCIUM, IONIZED 2022-05-26 20:10:00 Maverick [facility] COMPREHENSIVE METABOLIC 2022-05-26 20:10:00 Kayden Temple [facility] MAGNESIUM 2022-05-26 20:10:00 Maverick [facility] PHOSPHORUS 2022-05-26 20:10:00 Maverick [facility] PROTHROMBIN TIME/INR 2022-05-26 20:10:[address] [facility] PROCALCITONIN 2022-05-26 20:10:00 [facility], [facility]ENOUS 2022-05-26 20:10:00 Maverick [facility] XR CHEST 1 VIEW PORTABLE / 2022-05-26 20:04:00 Kayden Temple [facility] ECG 12-LEAD 2022-05-26 19:27:32 Unknown, Hl7 [facility] ECG 12-LEAD 2022-05-26 19:27:32 Unknown, Hl7 [facility] ECG 12-LEAD 2022-05-26 19:26:40 Unknown, Hl7 [facility] ECG 12-LEAD 2022-05-26 19:26:40 Unknown, 7 [facility] ECG 12-LEAD 2022-05-26 19:26:12 Maverick [facility] ECG 12-LEAD 2022-05-26 19:26:12 Unknown, Hl7 [facility] ECG 12-LEAD 2022-05-26 19:26:12 Unknown, Hl7 Doctor [facility] POCT-GLUCOSE METER 2022-03-31 05:47:00 Valeria [facility] BASIC METABOLIC PANEL 2022-03-31 03:58:00 Ирина Jaramillo [facility] MAGNESIUM 2022-03-31 03:58:00 Ирина Jaramillo [facility] PHOSPHORUS 2022-03-31 03:58:00 Ирина Jaramillo [facility] CBC (HEMOGRAM ONLY) 2022-03-31 03:58:00 Ирина Jaramillo [facility] POCT-GLUCOSE METER 2022-03-30 20:42:00 Valeria [facility] POCT-GLUCOSE METER 2022-03-30 15:51:00 Valeria, [facility] POCT-GLUCOSE METER 2022-03-30 11:05:00 Valeria, [facility] POCT-GLUCOSE METER 2022-03-30 06:02:00 Valeria [facility] BASIC METABOLIC PANEL 2022-03-30 04:16:00 Ирина Jaramillo [facility] MAGNESIUM 2022-03-30 04:16:00 Ирина Jaramillo [facility] PHOSPHORUS 2022-03-30 04:16:00 Ирина Jaramillo [facility] POCT-GLUCOSE METER 2022-03-29 20:31:00 Valeria, [facility] POCT-GLUCOSE METER 2022-03-29 16:37:00 Valeria, [facility] POCT-GLUCOSE METER 2022-03-29 11:21:00 Valeria, [facility] POCT-GLUCOSE METER 2022-03-29 05:58:00 Valeria, [facility] BASIC METABOLIC PANEL 2022-03-29 03:38:00 Ирина Jaramillo [facility] MAGNESIUM 2022-03-29 03:38:00 Ирина Jaramillo [facility] PHOSPHORUS 2022-03-29 03:38:00 Ирина Jaramillo [facility] CBC (HEMOGRAM ONLY) 2022-03-29 03:38:00 Loren [facility] POCT-GLUCOSE METER 2022-03-28 20:55:00 Valeria [facility] POCT-GLUCOSE METER 2022-03-28 16:52:00 Valeria [facility] POCT-GLUCOSE METER 2022-03-28 11:25:00 Valeria [facility] POCT-GLUCOSE METER 2022-03-28 06:46:00 [facility]IC METABOLIC PANEL 2022-03-28 04:35:00 Loren Ирина C [facility] MAGNESIUM 2022-03-28 04:35:00 Loren Ирина C [facility] PHOSPHORUS 2022-03-28 04:35:00 Loren [facility] PREPARE RBC 2022-03-27 23:55:00 Valeria [facility] POCT-GLUCOSE METER 2022-03-27 20:55:00 Valeria [facility] POCT-GLUCOSE METER 2022-03-27 16:29:00 Valeria, [facility] POCT-GLUCOSE METER 2022-03-27 11:40:00 Valeria, [facility] POCT-GLUCOSE METER 2022-03-27 06:58:00 Loren Ирина Albina [facility] BASIC METABOLIC PANEL 2022-03-27 05:35:00 Loren Ирина C [facility] MAGNESIUM 2022-03-27 05:35:00 Loren Ирина C [facility] PHOSPHORUS 2022-03-27 05:35:00 Loren Ирина C [facility] CBC (HEMOGRAM ONLY) 2022-03-27 05:35:00 Ирина Jaramillo [facility] POCT-GLUCOSE METER 2022-03-26 20:33:00 Ирина Jaramillo [facility] TRANSFUSE LEUKO-REDUCED 2022-03-26 18:40:00 Ирина Jaramillo [facility] RED BLOOD CELLS [facility] HEMOGLOBIN AND HEMATOCRIT 2022-03-26 16:37:00 Ирина Jaramillo [facility] POCT-GLUCOSE METER 2022-03-26 16:36:00 Ирина Jaramillo [facility] POCT-GLUCOSE METER 2022-03-26 11:37:00 Ирина Jaramillo [facility] XR CHEST 1 VIEW PORTABLE / 2022-03-26 10:50:00 Ирина Jaramillo [facility] POCT-GLUCOSE METER 2022-03-26 06:02:00 Loren Ирина C [facility] BASIC METABOLIC PANEL 2022-03-26 04:27:00 Ирина Jaramillo [facility] MAGNESIUM 2022-03-26 04:27:00 Loren Ирина C [facility] PHOSPHORUS 2022-03-26 04:27:00 Ирина Jaramillo [facility] POCT-GLUCOSE METER 2022-03-25 20:38:00 Loren Ирина C [facility] URINE CULTURE 2022-03-25 17:17:00 Ирина Jaramillo [facility] URINALYSIS W/ REFLEX URINE 2022-03-25 17:17:00 Ирина Jaramillo [facility] POCT-GLUCOSE METER 2022-03-25 14:58:00 Loren Ирина Albina [facility] POCT-GLUCOSE METER 2022-03-25 11:10:00 Ирина Jaramillo [facility] PREPARE RBC 2022-03-25 09:07:[address] [facility] TYPE AND SCREEN, AUTOMATED 2022-03-25 08:20:00 Ирина Jaramillo [facility] POCT-GLUCOSE METER 2022-03-25 05:41:00 Ирина Jaramillo [facility] BASIC METABOLIC PANEL 2022-03-25 04:52:00 Ирина Jaramillo [facility] MAGNESIUM 2022-03-25 04:52:00 Ирина Jaramillo [facility] PHOSPHORUS 2022-03-25 04:52:00 Ирина Jaramillo [facility] CBC (HEMOGRAM ONLY) 2022-03-25 04:52:00 Ирина Jaramillo [facility] POCT-GLUCOSE METER 2022-03-24 21:19:00 Ирина Jaramillo [facility] POCT-GLUCOSE METER 2022-03-24 16:57:00 Ирина Jaramillo [facility] POCT-GLUCOSE METER 2022-03-24 10:41:00 Ирина Jaramillo [facility] POCT-GLUCOSE METER 2022-03-24 05:49:00 Ирина Jaramillo [facility] BASIC METABOLIC PANEL 2022-03-24 04:20:00 Ирина Jaramillo [facility] MAGNESIUM 2022-03-24 04:20:00 Ирина Jaramillo [facility] PHOSPHORUS 2022-03-24 04:20:00 Ирина Jaramillo [facility] POCT-GLUCOSE METER 2022-03-23 20:07:00 Ирина Jaramillo [facility] POCT-GLUCOSE METER 2022-03-23 16:39:00 Ирина Jaramillo [facility] POCT-GLUCOSE METER 2022-03-23 12:23:00 Ирина Jaramillo [facility] POCT-GLUCOSE METER 2022-03-23 06:07:00 Ирина Jaramillo [facility] BASIC METABOLIC PANEL 2022-03-23 03:55:00 Ирина Jaramillo [facility] MAGNESIUM 2022-03-23 03:55:00 Ирина aJramillo [facility] PHOSPHORUS 2022-03-23 03:55:00 Ирина Jaramillo [facility] CBC (HEMOGRAM ONLY) 2022-03-23 03:55:00 Ирина Jaramillo [facility] LIPASE 2022-03-23 03:55:00 Ирина Jaramillo [facility] POCT-GLUCOSE METER 2022-03-22 20:46:00 Ирина Jaramillo [facility] TROPONIN I 2022-03-22 11:39:00 Ирина Jaramillo [facility] POCT-GLUCOSE METER 2022-03-22 11:34:00 Ирина Jaramillo [facility] TROPONIN I 2022-03-22 08:02:00 Ирина Jaramillo [facility] ECG 12-LEAD 2022-03-22 06:56:42 Unknown, 7 [facility] ECG 12-LEAD 2022-03-22 06:56:42 Unknown, 7 [facility] ECG 12-LEAD 2022-03-22 06:55:49 Unknown, 7 [facility] ECG 12-LEAD 2022-03-22 06:55:49 Unknown, 7 [facility] POCT-GLUCOSE METER 2022-03-22 06:19:00 Ирина Jaramillo [facility] BASIC METABOLIC PANEL 2022-03-22 04:34:00 Ирина Jaramillo [facility] MAGNESIUM 2022-03-22 04:34:00 Ирина Jaramillo [facility] PHOSPHORUS 2022-03-22 04:34:00 Ирина Jaramillo [facility] HEPATITIS B SURFACE 2022-03-22 04:34:00 Rhonda [facility] ANTIGEN [facility] HEPATITIS B SURFACE 2022-03-22 04:34:00 Rhonda [facility] ANTIBODY [facility] POCT-GLUCOSE METER 2022-03-21 20:23:00 Ирина Jaramillo [facility] URINE CULTURE 2022-03-21 18:37:00 Ирина Jaramillo [facility] POCT-GLUCOSE METER 2022-03-21 15:30:00 Ирина Jaramillo [facility] POCT-GLUCOSE METER 2022-03-21 12:55:00 Ирина Jaramillo [facility] URINALYSIS W/ MICROSCOPIC 2022-03-21 12:10:00 Ирина Jaramillo [facility] POCT-GLUCOSE METER 2022-03-21 11:37:00 Ирина Jaramillo [facility] POCT-GLUCOSE METER 2022-03-21 06:32:00 Ирина Jaramillo [facility] BASIC METABOLIC PANEL 2022-03-21 04:37:00 Ирина Jaramillo [facility] MAGNESIUM 2022-03-21 04:37:00 Loren Ирина C [facility] PHOSPHORUS 2022-03-21 04:37:00 [facility] CBC (HEMOGRAM ONLY) 2022-03-21 04:37:00 Ирина Jaramillo [facility] POCT-GLUCOSE METER 2022-03-20 20:40:00 Ирина Jaramillo [facility] POCT-GLUCOSE METER 2022-03-20 12:05:00 Lalitha Ирина C [facility] POCT-GLUCOSE METER 2022-03-20 07:38:00 Loren Ириан C [facility] POCT-GLUCOSE METER 2022-03-20 06:47:00 Ирина Jaramillo [facility] BASIC METABOLIC PANEL 2022-03-20 05:31:00 Ирина Jaramillo [facility] MAGNESIUM 2022-03-20 05:31:00 Ирина Jaramillo [facility] PHOSPHORUS 2022-03-20 05:31:00 Loren Ирина C [facility] POCT-GLUCOSE METER 2022-03-19 20:37:00 Loren Ирина C [facility] XR ABDOMEN/KUB 1 VIEW 2022-03-19 12:13:00 Darya Ellis [facility] POCT-GLUCOSE METER 2022-03-19 11:15:00 Ирина Jaramillo [facility] POCT-GLUCOSE METER 2022-03-19 06:26:00 [facility] BASIC METABOLIC PANEL 2022-03-19 05:04[facility]22-03-19 05:04[facility]00 [facility]22-03-19 05:04[facility]T [facility] & AUTO 2022-03-19 05:04:00 [facility] 2022-03-19 05:04:00 Loren [facility] TROPONIN I 2022-03-19 05:04:00 Ирина Jaramillo [facility] CBC W/PLT COUNT & AUTO 2022-03-19 05:04:00 Valeria [facility] POCT-GLUCOSE METER 2022-03-18 20:37:00 [facility] TROPONIN I 2022-03-18 19:14:00 [facility] POCT-GLUCOSE METER 2022-03-18 17:00:00 [facility] EKG-SCANNED 2022-03-18 00:00:00 Anders Sue [facility] POCT-GLUCOSE METER 2022-03-05 15:47:00 Ирина Jaramillo [facility] POCT-GLUCOSE METER 2022-03-05 11:05:00 Ирина Jaramillo [facility] VANCOMYCIN LEVEL, RANDOM 2022-03-05 09:00:00 Gonzalo Coles CH, I [facility] POCT-GLUCOSE METER 2022-03-05 06:25:00 Ирина Jaramillo [facility] CBC W/PLT COUNT & AUTO 2022-03-05 04:45:00 Ирина Jaramillo [facility] BASIC METABOLIC PANEL 2022-03-05 04:45:00 Ирина Jaramillo [facility] MAGNESIUM 2022-03-05 04:45:00 Lalithamukund Ирина C [facility] PHOSPHORUS 2022-03-05 04:45:00 [facility] CBC W/PLT COUNT & AUTO 2022-03-05 04:45:00 Ирина Jaramillo [facility] POCT-GLUCOSE METER 2022-03-04 20:40:00 [facility] И[facility]ина C [facility] POCT-GLUCOSE METER 2022-03-04 15:38:00 [facility] Ирина C [facility] POCT-GLUCOSE METER 2022-03-04 11:44:00 [facility] Ирина C [facility] POCT-GLUCOSE METER 2022-03-04 08:35:00 [facility] POCT-GLUCOSE METER 2022-03-04 06:02:00 [facility] И[facility]ина C [facility] CBC W/PLT COUNT & AUTO 2022-03-04 04:50:00 [facility] Hospital[facility] duval [facility] BASIC METABOLIC PANEL 2022-03-04 04:50:00 Ирина Jaramillo [facility] MAGNESIUM 2022-03-04 04:50:00 Ирина Jaramillo [facility] PHOSPHORUS 2022-03-04 04:50:00 [facility] Hospital[facility] duval [facility] CBC W/PLT COUNT & AUTO 2022-03-04 04:50:00 [facility] POCT-GLUCOSE METER 2022-03-03 20:53:00 [facility] Ирина C [facility] POCT-GLUCOSE METER 2022-03-03 15:37:00 Loren Ирина C [facility] 2D ECHO W/ DOPPLER 2022-03-03 12:07:04 [facility] POCT-GLUCOSE METER 2022-03-03 10:59:00 Ирина Jaramillo [facility] CBC W/PLT COUNT & AUTO 2022-03-03 06:27:00 Loren Ирина C [facility] BASIC METABOLIC PANEL 2022-03-03 06:27:00 Loren Ирина C [facility] MAGNESIUM 2022-03-03 06:27:00 Loren Ирина C [facility] PHOSPHORUS 2022-03-03 06:27:00 [facility] Albina [facility] CBC W/PLT COUNT & AUTO 2022-03-03 06:27:00 [facility] (MANUAL DIFFERENTIAL) 2022-03-03 06:27:00 [facility] Ирина [facility] PREPARE RBC 2022-03-02 23:54:00 [facility] POCT-GLUCOSE METER 2022-03-02 23:25:00 [facility] POCT-GLUCOSE METER 2022-03-02 15:27:[address] [facility] CT BRAIN WITHOUT IV 2022-03-02 12:40:00 Kilo Piper [facility] POCT-GLUCOSE METER 2022-03-02 11:49:00 [facility] POCT-GLUCOSE METER 2022-03-02 06:08:00 [facility] CBC W/PLT COUNT & AUTO 2022-03-02 04:04:00 [facility] Ирина Albina [facility] BASIC METABOLIC PANEL 2022-03-02 04:04:00 [facility] MAGNESIUM 2022-03-02 04:04:00 [facility] PHOSPHORUS 2022-03-02 04:04:00 [facility] CBC W/PLT COUNT & AUTO 2022-03-02 04:04:00 [facility] POCT-GLUCOSE METER 2022-03-01 20:52:00 Valeria, [facility] TRANSFUSE LEUKO-REDUCED 2022-03-01 15:20:00 Valeria, [facility] RED BLOOD CELLS [facility] POCT-GLUCOSE METER 2022-03-01 14:59:00 Valeria, [facility] TYPE AND SCREEN, AUTOMATED 2022-03-01 12:53:00 Valeria, [facility] POCT-GLUCOSE METER 2022-03-01 10:50:00 Valeria, [facility] POCT-GLUCOSE METER 2022-03-01 06:12:00 Valeria, [facility] CBC W/PLT COUNT & AUTO 2022-03-01 04:33:00 Loren Ирина C [facility] BASIC METABOLIC PANEL 2022-03-01 04:33:00 Ирина Jaramillo [facility] MAGNESIUM 2022-03-01 04:33:00 ShiehИрина [facility] PHOSPHORUS 2022-03-01 04:33:00 Ирина Jaramillo [facility] CBC W/PLT COUNT & AUTO 2022-03-01 04:33:00 Loren Ирина C [facility] POCT-GLUCOSE METER 2022-02-28 20:27:00 Valeria, [facility] POCT-GLUCOSE METER 2022-02-28 16:44:00 Valeria, [facility] CBC W/PLT COUNT & AUTO 2022-02-28 12:29:00 Ирина Jaramillo [facility] BASIC METABOLIC PANEL 2022-02-28 12:29:00 Ирина Jaramillo [facility] MAGNESIUM 2022-02-28 12:29:00 Ирина Jaramillo [facility] PHOSPHORUS 2022-02-28 12:29:00 Ирина Jaramillo [facility] CBC W/PLT COUNT & AUTO 2022-02-28 12:29:00 Ирина Jaramillo [facility] POCT-GLUCOSE METER 2022-02-28 12:11:00 Valeria, [facility] POCT-GLUCOSE METER 2022-02-28 07:52:00 Valeria, [facility] POCT-GLUCOSE METER 2022-02-27 21:46:00 Valeria, [facility] POCT-GLUCOSE METER 2022-02-27 16:03:00 Valeria, [facility] POCT-GLUCOSE METER 2022-02-27 11:40:00 Valeria, [facility] VANCOMYCIN LEVEL, RANDOM 2022-02-27 10:50:00 Gonzalo Coles CH, I [facility] POCT-GLUCOSE METER 2022-02-27 06:18:00 Ирина Jaramillo [facility] CBC W/PLT COUNT & AUTO 2022-02-27 04:00:00 Ирина Jaramillo [facility] BASIC METABOLIC PANEL 2022-02-27 04:00:00 Ирина Jaramillo [facility] MAGNESIUM 2022-02-27 04:00:00 Ирина Jaramillo [facility] PHOSPHORUS 2022-02-27 04:00:00 Ирина Jaramillo [facility] CBC W/PLT COUNT & AUTO 2022-02-27 04:00:00 Ирина Jaramillo [facility] POCT-GLUCOSE METER 2022-02-26 20:55:00 Ирина Jaramillo [facility] POCT-GLUCOSE METER 2022-02-26 10:38:00 LalithaИрина [facility] BODY FLUID CULTURE + GRAM 2022-02-26 07:31:00 Rhonda [facility] BODY FLUID CELL COUNT WITH 2022-02-26 07:23:00 [facility] CBC W/PLT COUNT & AUTO 2022-02-26 06:38:00 Ирина Jaramillo [facility] BASIC METABOLIC PANEL 2022-02-26 06:38:00 Ирина Jaramillo [facility] MAGNESIUM 2022-02-26 06:38:00 LalithamukundИрина [facility] PHOSPHORUS 2022-02-26 06:38:00 Ирина Jaramillo [facility] CBC W/PLT COUNT & AUTO 2022-02-26 06:38:00 Ирина Jaramillo [facility] POCT-GLUCOSE METER 2022-02-26 06:25:00 Ирина Jaramillo [facility] POCT-GLUCOSE METER 2022-02-25 21:29:00 [facility] POCT-GLUCOSE METER 2022-02-25 16:35:00 LalithaИрина [facility] POCT-GLUCOSE METER 2022-02-25 12:11:00 LalithaИрина [facility] CBC W/PLT COUNT & AUTO 2022-02-25 07:05:00 [facility] CBC W/PLT COUNT & AUTO 2022-02-25 07:05:00 [facility] POCT-GLUCOSE METER 2022-02-25 06:13:00 [facility] BASIC METABOLIC PANEL 2022-02-25 06:00:00 Ирина Jaramillo [facility] MAGNESIUM 2022-02-25 06:00:00 Ирина Jaramillo [facility] PHOSPHORUS 2022-02-25 06:00:00 Ирина Jaramillo [facility] POCT-GLUCOSE METER 2022-02-24 20:51:00 [facility] POCT-GLUCOSE METER 2022-02-24 16:40:00 LalithaИрина [facility] XR ABDOMEN/KUB 1 VIEW 2022-02-24 15:24:00 Kilo Piper CH, I [facility] POCT-GLUCOSE METER 2022-02-24 11:40:00 Ирина Jaramillo [facility] VANCOMYCIN LEVEL, TROUGH 2022-02-24 10:36:00 Traci Mcclure [facility] POCT-GLUCOSE METER 2022-02-24 06:03:00 Ирина Jaramillo [facility] CBC W/PLT COUNT & AUTO 2022-02-24 05:14:00 Ирина Jaramillo [facility] BASIC METABOLIC PANEL 2022-02-24 05:14:00 Ирина Jaramillo [facility] MAGNESIUM 2022-02-24 05:14:00 Ирина Jaramillo [facility] PHOSPHORUS 2022-02-24 05:14:00 Ирина Jaramillo [facility] CBC W/PLT COUNT & AUTO 2022-02-24 05:14:00 Ирина Jaramillo [facility] US ABDOMEN COMPLETE 2022-02-23 22:25:00 Kilo Piper [facility] POCT-GLUCOSE METER 2022-02-23 20:29:00 Ирина Jaramillo [facility] POCT-GLUCOSE METER 2022-02-23 15:32:00 Lalitha Ирина C [facility] POCT-GLUCOSE METER 2022-02-23 11:51:00 Ирина Jaramillo [facility] VANCOMYCIN LEVEL, RANDOM 2022-02-23 05:32:00 Jenise Crump [facility] CBC (HEMOGRAM ONLY) 2022-02-23 05:32:00 Valeria [facility] BASIC METABOLIC PANEL 2022-02-23 05:32:00 Valeria [facility] MAGNESIUM 2022-02-23 05:32:00 Ирина Jaramillo [facility] PHOSPHORUS 2022-02-23 05:32:00 Ирина Jaramillo [facility] HEMOGLOBIN A1C 2022-02-23 05:32:00 Kilo Piper [facility] C. DIFFICILE GDH TOXIN 2022-02-22 22:11:[address] [facility] STOOL CULTURE + SHIGA 2022-02-22 17:31:00 Valeria [facility] TOXIN [facility] SHIGA TOXIN SCREEN 2022-02-22 17:31:00 Valeria [facility] STOOL PATH CHARGE 2022-02-22 17:31:00 Valeria [facility] POCT-GLUCOSE METER 2022-02-22 10:40:00 Valeria [facility] POCT-GLUCOSE METER 2022-02-22 07:06:00 [facility] CBC (HEMOGRAM ONLY) 2022-02-22 05:01:00 [facility] BASIC METABOLIC PANEL 2022-02-22 04:58:00 [facility] POCT-GLUCOSE METER 2022-02-21 21:13:00 [facility] POCT-GLUCOSE METER 2022-02-21 16:55:00 [facility] POCT-GLUCOSE METER 2022-02-21 11:07:00 [facility] POCT-GLUCOSE METER 2022-02-21 06:18:00 [facility] CBC (HEMOGRAM ONLY) 2022-02-21 05:08:00 [facility] BASIC METABOLIC PANEL 2022-02-21 05:08:00 Valeria, [facility] POCT-GLUCOSE METER 2022-02-20 20:11:00 [facility] POCT-GLUCOSE METER 2022-02-20 16:51:00 [facility], [facility] POCT-GLUCOSE METER 2022-02-20 11:47:00 [facility] POCT-GLUCOSE METER 2022-02-20 09:44:00 [facility] POCT-GLUCOSE METER 2022-02-20 05:50:00 [facility], [facility] CBC W/PLT COUNT & AUTO 2022-02-20 05:22:00 Ирина Jaramillo [facility] BASIC METABOLIC PANEL 2022-02-20 05:22:00 Ирина Jaramillo [facility] MAGNESIUM 2022-02-20 05:22:00 Ирина Jaramillo [facility] PHOSPHORUS 2022-02-20 05:22:00 Ирина Jaramillo [facility] CBC W/PLT COUNT & AUTO 2022-02-20 05:22:00 Ирина Jaramillo [facility] POCT-GLUCOSE METER 2022-02-19 21:01:00 Ирина Jaramillo [facility] POCT-GLUCOSE METER 2022-02-19 15:36:00 Ирина Jaramillo [facility] POCT-GLUCOSE METER 2022-02-19 12:17:00 Ирина Jaramillo [facility] VANCOMYCIN LEVEL, TROUGH 2022-02-19 07:45:00 Traci Mcclure [facility] CBC W/PLT COUNT & AUTO 2022-02-19 07:45:00 Ирина Jaramillo [facility] BASIC METABOLIC PANEL 2022-02-19 07:45:00 Ирина Jaramillo [facility] MAGNESIUM 2022-02-19 07:45:00 Ирина Jaramillo [facility] PHOSPHORUS 2022-02-19 07:45:00 Ирина Jaramillo [facility] CBC W/PLT COUNT & AUTO 2022-02-19 07:45:00 Ирина Jaramillo [facility] POCT-GLUCOSE METER 2022-02-19 06:28:00 Ирина Jaramillo [facility] POCT-GLUCOSE METER 2022-02-18 22:56:00 Ирина Jaramillo [facility] POCT-GLUCOSE METER 2022-02-18 18:44:00 Ирина Jaramillo [facility] PERITONEAL DIALYSIS 2022-02-18 16:25:00 Darya Ellis [facility] BODY FLUID CELL COUNT WITH 2022-02-18 16:25:00 [facility] POCT-GLUCOSE METER 2022-02-18 05:42:00 Ирина Jaramillo [facility] HEPATITIS B SURFACE 2022-02-18 04:09:00 Ashok [facility] ANTIGEN [facility] HEPATITIS B SURFACE 2022-02-18 04:09:00 [facility] ANTIBODY [facility] CBC W/PLT COUNT & AUTO 2022-02-18 04:09:00 Ирина Jaramillo [facility] BASIC METABOLIC PANEL 2022-02-18 04:09:00 Ирина Jaramillo [facility] MAGNESIUM 2022-02-18 04:09:00 Ирина Jaramillo [facility] PHOSPHORUS 2022-02-18 04:09:00 Ирина Jaramillo [facility] CBC W/PLT COUNT & AUTO 2022-02-18 04:09:00 Ирина Jaramillo [facility] POCT-GLUCOSE METER 2022-02-17 21:45:00 Ирина Jaramillo [facility] POCT-GLUCOSE METER 2022-02-17 20:51:00 Ирина Jaramillo [facility] POCT-GLUCOSE METER 2022-02-17 16:59:00 Ирина Jaramillo [facility] POCT-GLUCOSE METER 2022-02-17 12:38:00 Ирина Jaramillo [facility] VANCOMYCIN LEVEL, RANDOM 2022-02-17 11:44:00 Krish Ruffin Katarina [facility] POCT-GLUCOSE METER 2022-02-17 06:38:00 Ирина Jaramillo [facility] PROTHROMBIN TIME/INR 2022-02-17 06:37:00 Brody Shipley [facility] BASIC METABOLIC PANEL 2022-02-17 03:43:00 Brody Shipley [facility] HEPATIC FUNCTION PANEL 2022-02-17 03:43:00 Violetta, Brody [facility] HEMOGLOBIN A1C 2022-02-17 03:43:00 Violetta, Brody M [facility] LIPID PANEL 2022-02-17 03:43:00 ViolettaAugustin wilkersonhicarley Manjarrez [facility] MAGNESIUM 2022-02-17 03:43:00 Violetta, Brody [facility] PHOSPHORUS 2022-02-17 03:43:00 Violetta Brody [facility] CBC W/PLT COUNT & AUTO 2022-02-17 03:43:00 Violetta, [facility] CBC W/PLT COUNT & AUTO 2022-02-17 03:43:00 Violetta [facility] BLOOD CULTURE 2022-02-17 03:42:00 Violetta, [facility] PREPARE RBC 2021-12-10 23:54:00 Jade [facility] POCT-GLUCOSE METER 2021-12-10 12:02:00 Jdae [facility] POCT-GLUCOSE METER 2021-12-10 07:11:00 Jade [facility] BASIC METABOLIC PANEL 2021-12-10 04:15:00 Jade [facility] POCT-GLUCOSE METER 2021-12-09 20:56:00 Jade [facility] XR ABDOMEN/KUB 1 VIEW 2021-12-09 16:46:00 Farzad Alberto CH I [facility] POCT-GLUCOSE METER 2021-12-09 16:12:00 Jade [facility] POCT-GLUCOSE METER 2021-12-09 11:28:00 Jade [facility] POCT-GLUCOSE METER 2021-12-09 07:43:00 Jade [facility] POCT-GLUCOSE METER 2021-12-08 21:54:00 Corona, [facility] POCT-GLUCOSE METER 2021-12-08 20:09:00 Corona, [facility] ABORH, MANUAL 2021-12-08 17:28:00 Ct Paul Carmelina [facility] POCT-GLUCOSE METER 2021-12-08 16:22:00 Corona, [facility] TYPE AND SCREEN, AUTOMATED 2021-12-08 14:53:00 Corona, [facility] C [facility] POCT-GLUCOSE METER 2021-12-08 10:47:00 Corona, [facility] POCT-GLUCOSE METER 2021-12-08 07:06:00 Corona, [facility] POCT-GLUCOSE METER 2021-12-07 20:19:00 Corona, [facility] POCT-GLUCOSE METER 2021-12-07 17:18:00 Corona, [facility] POCT-GLUCOSE METER 2021-12-07 12:13:00 Corona, [facility] POCT-GLUCOSE METER 2021-12-07 08:36:00 Corona, [facility] POCT-GLUCOSE METER 2021-12-06 20:51:00 Corona, [facility] POCT-GLUCOSE METER 2021-12-06 16:19:00 Corona, [facility] POCT-GLUCOSE METER 2021-12-06 11:50:00 Corona, [facility] POCT-GLUCOSE METER 2021-12-06 08:09:00 Corona, [facility] POCT-GLUCOSE METER 2021-12-05 20:34:00 Corona, [facility] POCT-GLUCOSE METER 2021-12-05 16:21:00 Corona, [facility] POCT-GLUCOSE METER 2021-12-05 12:03:00 Corona, [facility] POCT-GLUCOSE METER 2021-12-05 07:59:00 Corona, [facility] POCT-GLUCOSE METER 2021-12-04 20:53:00 Corona, [facility] POCT-GLUCOSE METER 2021-12-04 16:38:00 Corona, [facility] XR ABDOMEN/KUB 1 VIEW 2021-12-04 13:22:00 Corona, [facility] POCT-GLUCOSE METER 2021-12-04 11:34:00 Corona, [facility] POCT-GLUCOSE METER 2021-12-04 07:53:00 Corona, [facility] POCT-GLUCOSE METER 2021-12-03 21:09:00 Corona, [facility] POCT-GLUCOSE METER 2021-12-03 17:01:00 Corona, [facility] POCT-GLUCOSE METER 2021-12-03 11:55:00 Corona, [facility] POCT-GLUCOSE METER 2021-12-03 07:46:00 Corona, [facility] POCT-GLUCOSE METER 2021-12-02 22:14:00 Corona, [facility] POCT-GLUCOSE METER 2021-12-02 20:37:00 Corona, [facility] POCT-GLUCOSE METER 2021-12-02 16:04:00 Corona, [facility] POCT-GLUCOSE METER 2021-12-02 11:15:00 Corona, [facility] POCT-GLUCOSE METER 2021-12-02 07:37:00 Corona, [facility] POCT-GLUCOSE METER 2021-12-02 06:27:00 Corona, [facility] POCT-GLUCOSE METER 2021-12-01 16:48:00 Corona, [facility] POCT-GLUCOSE METER 2021-12-01 15:14:00 Corona, [facility] POCT-GLUCOSE METER 2021-12-01 11:00:00 Corona, [facility] POCT-GLUCOSE METER 2021-12-01 08:06:00 Corona, [facility] POCT-GLUCOSE METER 2021-12-01 06:08:00 Corona [facility] POCT-GLUCOSE METER 2021-11-30 22:11:00 Corona [facility] 2D ECHO W/ DOPPLER 2021-11-30 08:22:20 Stas Lyles [facility] (CW/PW/COLOR) [facility] POCT-GLUCOSE METER 2021-11-29 21:16:00 Corona, [facility] LACTIC ACID, VENOUS 2021-11-29 21:03:00 [facility] BASIC METABOLIC PANEL 2021-11-29 21:03:00 [facility] BODY FLUID CULTURE + GRAM 2021-11-29 17:27:00 Stephanie Hough CH, I [facility] STAIN [facility] BODY FLUID CELL COUNT WITH 2021-11-29 17:25:00 Stephanie Hough [facility] DIFFERENTIAL [facility] POCT-GLUCOSE METER 2021-11-29 16:11:00 Corona [facility] LACTIC ACID, VENOUS 2021-11-29 14:13:00 [facility] BASIC METABOLIC PANEL 2021-11-29 14:13:00 [facility] MAGNESIUM 2021-11-29 14:13:00 [facility] CALCIUM, IONIZED 2021-11-29 12:24:00 [facility] BLOOD CULTURE 2021-11-29 04:50:00 Stas Lyles [facility] B-TYPE NATRIURETIC FACTOR 2021-11-29 04:45:[address] [facility] (BNP) [facility] KETONE, BLOOD 2021-11-29 04:44:00 Stas Lyles [facility] CBC W/PLT COUNT & AUTO 2021-11-29 04:20:00 Stas Lyles [facility] DIFFERENTIAL [facility] CBC W/PLT COUNT & AUTO 2021-11-29 04:20:00 [facility] DIFFERENTIAL [facility] COMPREHENSIVE METABOLIC 2021-11-29 04:20:00 Stas Lyles [facility] PANEL [facility] CALCIUM, IONIZED 2021-11-29 04:20:00 Stas Lyles [facility] MAGNESIUM 2021-11-29 04:20:00 Stas Lyles [facility] PHOSPHORUS 2021-11-29 04:20:00 Stas Lyles [facility] TSH/FREE T4 IF INDICATED 2021-11-29 04:20:00 Stas Lyles [facility] T4, FREE 2021-11-29 04:20:00 Stas Lyles [facility] BLOOD CULTURE 2021-11-29 04:19:00 Stas Lyles [facility] ECG 12-LEAD 2021-11-29 04:00:34 Unknown, 7 [facility] ECG 12-LEAD 2021-11-29 04:00:34 Unknown, 7 [facility] ECG 12-LEAD 2021-11-29 03:59:50 Stas Lyles [facility] ECG 12-LEAD 2021-11-29 03:59:50 Unknown, Hl7 [facility] ECG 12-LEAD 2021-11-29 03:59:50 Unknown, Hl7 [facility] XR CHEST 1 VIEW PORTABLE / 2021-11-29 03:50:00 Stas Lyles [facility] BEDSIDE [facility] PERMANENT LAB REPORT - 2021-11-29 00:00:00 Provider, Anders [facility] POC GLUCOSE 2021-04-16 17:45:00 Danyell Mcmahon POC GLUCOSE 2021-04-16 14:31:00 ThaDanyell lopez spital Stephane XR CHEST 1 VW PORTABLE 2021-04-16 13:40:16 [facility] 2021-04-16 10:34[facility]00 [facility] BASIC METABOLIC PANEL 2021-04-16 10:34:00 [facility] MAG[facility] 2021-04-16 10:34:00 NolanLinda Ho spital ESTIMATED GFR 2021-04-16 10:34:00 NolanLinda Ho spital POC GLUCOSE 2021-04-16 03:06:00 ThalorettaoeDanyell spital Stephane COVID-19 QUALITATIVE 2021-04-15 23:24:00 [facility] RT-PCR Stephane COVID-19 OMICRON VARIANT 2021-04-15 23:24:00 [facility] QUALITATIVE RT-PCR Stephane POC GLUCOSE 2021-04-15 23:04:00 [facility] Ho spital [facility]ane TYPE AND SCREEN 2021-04-15 19:14:00 [facility] PREPARE RBC 2021-04-15 19:14:00 [facility] POC GLUCOSE 2021-04-15 18:11:00 ThalorettaoeDanyell Ho spital Stephane POC GLUCOSE 2021-04-15 14:02:00 Danyell Mcmahon spital Stephane XR CHEST 1 VW PORTABLE 2021-04-15 12:48:08 [facility] COMPLETE BLD COUNT 2021-04-15 11:53:00 [facility] W/AUTO DIFF BASIC METABOLIC PANEL 2021-04-15 11:53:00 Nolan, [facility] MAGNESIUM LEVEL 2021-04-15 11:53:00 NolanLinda Ho spital ESTIMATED GFR 2021-04-15 11:53:00 NolanLinda Ho spital POC GLUCOSE 2021-04-15 02:15:00 ThalorettaoeDanyell Ho spital Stephane POC GLUCOSE 2021-04-14 22:22:00 Thampoe, Basti [facility] POC GLUCOSE 2021-04-14 17:48:00 Thampoe, Basti [facility] POC GLUCOSE 2021-04-14 13:59:00 Thampoe, Basti [facility] XR CHEST 1 VW PORTABLE 2021-04-14 10:53:13 [facility] COMPLETE BLD COUNT 2021-04-14 10:38:00 Nolan, [facility] W/AUTO DIFF BASIC METABOLIC PANEL 2021-04-14 10:38:00 [facility] MAGNESIUM LEVEL 2021-04-14 10:38:00 Nolan [facility] Ho spital PHOSPHORUS LEVEL 2021-04-14 10:38:00 Nolan [facility] H ospital ESTIMATED GFR 2021-04-14 10:38:00 NolanLinda Ho spital POC GLUCOSE 2021-04-14 01:44:00 Thampoe, Basti [facility] POC GLUCOSE 2021-04-13 22:25:00 Thampoe, Basti [facility] POC GLUCOSE 2021-04-13 17:51:00 Thampoe, Basti [facility] POC GLUCOSE 2021-04-13 13:43:00 Thampoe, Basti [facility] XR CHEST 1 VW PORTABLE 2021-04-13 11:21:[address] [facility] BASIC METABOLIC PANEL 2021-04-13 11:11:00 [facility] Bhaskar Ather [facility] HC COMPLETE BLD COUNT 2021-04-13 11:11:00 PrietoBhargav marsh [facility] W/AUTO DIFF MAGNESIUM LEVEL 2021-04-13 11:11:00 Bhargav rPieto Ho spital PHOSPHORUS LEVEL 2021-04-13 11:11:00 Bhargav Prieto H ospital IONIZED CALCIUM 2021-04-13 11:11:00 Bhargav Prieto Ho spital ESTIMATED GFR 2021-04-13 11:11:00 [facility] 2021-04-13 02:04:00 Thampoe, Basti [facility] POC GLUCOSE 2021-04-12 22:15:00 Thampoe, Basti [facility] POC GLUCOSE 2021-04-12 18:13:00 Thampoe, Basti [facility] POC GLUCOSE 2021-04-12 15:09:00 Thampoe, Basti [facility] XR CHEST 1 VW PORTABLE 2021-04-12 11:42:00 [facility] BASIC METABOLIC PANEL 2021-04-12 10:24:00 [facility] HC COMPLETE BLD COUNT 2021-04-12 10:24:00 [facility] W/AUTO DIFF MAGNESIUM LEVEL 2021-04-12 10:24:00 [facility] Ho spital PHOSPHORUS LEVEL 2021-04-12 10:24:00 [facility] IONIZED CALCIUM 2021-04-12 10:24:00 Prieto, [facility] ESTIMATED GFR 2021-04-12 10:24:00 [facility] POC GLUCOSE 2021-04-12 02:13:00 Thampoe, Basti [facility] IONIZED CALCIUM 2021-04-11 23:42:00 PrietoChrista Terry [facility] POC GLUCOSE 2021-04-11 23:00:00 Gracieoe Basvirgil [facility] POC GLUCOSE 2021-04-11 18:41:00 Thampoe, Basti [facility] XR CHEST 1 VW PORTABLE 2021-04-11 14:29:00 [facility] POC GLUCOSE 2021-04-11 13:12:00 Gracieoe, Basvirgil [facility] BASIC METABOLIC PANEL 2021-04-11 11:33:00 [facility] HC COMPLETE BLD COUNT 2021-04-11 11:33:00 [facility] W/AUTO DIFF MAGNESIUM LEVEL 2021-04-11 11:33:00 Bhargav Prieto Ho spital PHOSPHORUS LEVEL 2021-04-11 11:33:00 PrietoBhargav H ospital IONIZED CALCIUM 2021-04-11 11:33:00 PrietoBhargav Ho spital ESTIMATED GFR 2021-04-11 11:33:00 Conner Christasuzie Torres Ho spital POC GLUCOSE 2021-04-11 01:24:00 ThaDanyell lopez Ho spital Stephane XR CHEST 1 VW PORTABLE 2021-04-10 22:47:00 [facility] LINE/DRAIN REMOVAL 2021-04-10 21:28:34 [facility] POC GLUCOSE 2021-04-10 21:17:00 Danyell Mcmahon spital Stephane COMPREHENSIVE METABOLIC 2021-04-10 20:51:00 Marquis [facility] PANEL HC COMPLETE BLD COUNT 2021-04-10 20:51:00 Marquis [facility] W/AUTO DIFF MAGNESIUM LEVEL 2021-04-10 20:51:00 Segun Jones Ho spital PHOSPHORUS LEVEL 2021-04-10 20:51:00 Segun Jones ospital ESTIMATED GFR 2021-04-10 20:51:00 Segun Jones Ho spital IONIZED CALCIUM 2021-04-10 20:51:00 Segun Jones Ho spital POC GLUCOSE 2021-04-10 17:56:00 ThaDanyell lopez Ho spital Stephane POC GLUCOSE 2021-04-10 13:36:00 Danyell Mcmahon spital Stephane XR CHEST 1 VW PORTABLE 2021-04-10 10:48:54 Deborah [facility] BASIC METABOLIC PANEL 2021-04-10 09:16:[address] [facility] HC COMPLETE BLD COUNT 2021-04-10 09:16:00 Gregorionh [facility] W/AUTO DIFF Vedasto MAGNESIUM LEVEL 2021-04-10 09:16:00 Carmen Cabrera [facility] PHOSPHORUS LEVEL 2021-04-10 09:16:00 Carmen Cabrera [facility] IONIZED CALCIUM 2021-04-10 09:16:00 Carmen Cabrera [facility] PROTHROMBIN TIME WITH INR 2021-04-10 09:16:00 Ann Cabrera [facility] HEPATITIS B SURFACE 2021-04-10 09:16:00 Bhaskar Rose [facility] ANTIGEN ESTIMATED GFR 2021-04-10 09:16:00 Carmen Cabrera [facility] POC GLUCOSE 2021-04-10 07:02:00 Thampoe, Basti [facility] POC GLUCOSE 2021-04-10 02:06:00 Thampoe, Basti [facility] POC GLUCOSE 2021-04-09 21:36:00 Thampoe, Basti [facility] POC GLUCOSE 2021-04-09 17:39:00 Thampoe, Basti [facility] POC GLUCOSE 2021-04-09 13:34:00 Thampoe, Basti [facility] XR CHEST 1 VW PORTABLE 2021-04-09 10:39:00 Pedro Morejon [facility] BASIC METABOLIC PANEL 2021-04-09 09:29:00 Pedro Morejon [facility] HC COMPLETE BLD COUNT 2021-04-09 09:29:00 [facility] W/AUTO DIFF Vedasto MAGNESIUM LEVEL 2021-04-09 09:29:00 Carmen Cabrera [facility] PHOSPHORUS LEVEL 2021-04-09 09:29:00 Carmen Cabrera [facility] IONIZED CALCIUM 2021-04-09 09:29:00 Deborah [facility] PROTHROMBIN TIME WITH INR 2021-04-09 09:29:00 Ann Cabrera [facility] ESTIMATED GFR 2021-04-09 09:29:00 Pedro Morejon [facility] POC GLUCOSE 2021-04-09 01:22:00 ThampDanyell patel Ho spital Stephane POC GLUCOSE 2021-04-08 22:43:00 ThampoeDanyell Ho spital Stephane POC GLUCOSE 2021-04-08 18:04:00 Thampoe, Danyell Torres Ho spital Stephane POC GLUCOSE 2021-04-08 13:35:00 Thampoe, Danyell Torres Ho spital Stephane XR CHEST 1 VW PORTABLE 2021-04-08 11:26:37 Perdo [facility] 2021-04-08 08:18:00 [facility] TITER Rambo ZCAVID-19 SEROLOGY 2021-04-08 08:18:00 [facility] Rambo BASIC METABOLIC PANEL 2021-04-08 08:18:00 [facility] HC COMPLETE BLD COUNT 2021-04-08 08:18:00 [facility] W/AUTO DIFF MAGNESIUM LEVEL 2021-04-08 08:18:00 Cezar Davis spital PHOSPHORUS LEVEL 2021-04-08 08:18:00 Cezar Davis H ospital IONIZED CALCIUM 2021-04-08 08:18:00 Cezar Davis spital ESTIMATED GFR 2021-04-08 08:18:00 Cezar Davis Ho spital SMEAR REVIEW 2021-04-08 08:18:00 Cezar Davis spital POC GLUCOSE 2021-04-08 05:34:00 ThaDanyell lopez spital Stephane TRANSFUSE RED BLOOD CELLS 2021-04-08 04:30:00 [facility] HEMOGLOBIN & HEMATOCRIT 2021-04-08 03:31:00 Cezar Davis [facility] SMEAR REVIEW 2021-04-08 03:31:00 Cezar Davis spital POC GLUCOSE 2021-04-08 01:36:00 Danyell Mcmahon [facility] POC GLUCOSE 2021-04-07 23:21:00 Michelle Basvirgil [facility] HC COMPLETE BLD COUNT 2021-04-07 20:24:[address] [facility] [place] W/AUTO DIFF Ginny Marta PHOSPHORUS LEVEL 2021-04-07 20:24:00 Mert Mae Si H ospital IONIZED CALCIUM 2021-04-07 20:24:00 Mert Mae Si Ho spital BASIC METABOLIC PANEL 2021-04-07 20:24:00 Mert Mae Si [facility] [place] MAGNESIUM LEVEL 2021-04-07 20:24:00 Mert Mae Si Ho spital ESTIMATED GFR 2021-04-07 20:24:00 Mert Mae Si Ho spital POC GLUCOSE 2021-04-07 20:11:00 Danyell Mcmahon [facility] POC GLUCOSE 2021-04-07 18:20:00 Michelle, Basvirgil [facility] POC GLUCOSE 2021-04-07 17:22:00 Michelle, Danyell [facility] IONIZED CALCIUM 2021-04-07 14:34:00 Wliliam Enriquez H ospital POC GLUCOSE 2021-04-07 14:25:00 Danyell Mcmahon [facility] POC GLUCOSE 2021-04-07 12:09:00 Danyell Mcmahon [facility] ARTERIAL BLOOD GAS 2021-04-07 11:59:00 [facility] IONIZ[facility] CALCI[facility], ARTERIAL 2021-04-07 11:59:00 William Enriquez [facility] BASIC METABOLIC PANEL 2021-04-07 11:58:00 William Enriquez [facility] HC COMPLETE BLD COUNT 2021-04-07 11:58:00 [facility] W/AUTO DIFF MAGNESIUM LEVEL 2021-04-07 11:58:00 William Enriquez H ospital PROTHROMBIN TIME WITH INR 2021-04-07 11:58:00 Zoe [place] ESTIMATED GFR 2021-04-07 11:58:00 William Enriquezne [facility] SMEAR REVIEW 2021-04-07 11:58:00 [facility] POC GLUCOSE 2021-04-07 11:13:00 Danyell Mcmahon spital Stephane XR CHEST 1 VW PORTABLE 2021-04-07 11:07:41 Jean-Pierre [facility] POC GLUCOSE 2021-04-07 10:08:00 ThaDanyell lopez spital Stephane POC GLUCOSE 2021-04-07 09:21:00 Danyell Mcmahon spital Stephane TRANSFUSE RED BLOOD CELLS 2021-04-07 09:15:00 Zoe [place] PREPARE RBC 2021-04-07 09:09:00 William Enriquez [facility] POC GLUCOSE 2021-04-07 08:07:00 ThaDanyell lopez spital Stephane BASIC METABOLIC PANEL 2021-04-07 08:06:00 Pedro Morejon [facility] HC COMPLETE BLD COUNT 2021-04-07 08:06:00 Zoe [facility] W/AUTO DIFF ARTERIAL BLOOD GAS 2021-04-07 08:06:00 Zoe [facility] MAGNESIUM LEVEL 2021-04-07 08:06:00 [facility] PHOSPHORUS LEVEL 2021-04-07 08:06:00 Zoe [place] ESTIMATED GFR 2021-04-07 08:06:00 [facility] IONIZ[facility] CALCIUM, ARTERIAL 2021-04-07 08:06:00 Zoe [place] POC GLUCOSE 2021-04-07 07:01:00 ThaDanyell lopez spital Stephane POC GLUCOSE 2021-04-07 05:58:00 ThaDanyell lopez spital Stephane ARTERIAL BLOOD GAS 2021-04-07 04:53:00 [facility] P[facility]SE 2021-04-07 04:43:00 ThaDanyell lopez Ho spital Stephane HEMOGLOBIN & HEMATOCRIT 2021-04-07 04:19:00 [facility]OLIC PANEL 2021-04-07 04:19:00 Zoe [facility] MAGNESIUM LEVEL 2021-04-07 04:19:00 Zoe [facility] ospital PHOSPHORUS LEVEL 2021-04-07 04:19:00 Zoe [place] IONIZED CALCIUM 2021-04-07 04:19:00 Zoe [facility] ospital ESTIMATED GFR 2021-04-07 04:19:00 Zoe [facility] ospital POC GLUCOSE 2021-04-07 03:29:00 Danyell Mcmahon Ho spital Stephane ARTERIAL BLOOD GAS 2021-04-07 02:52:00 [facility] POC GLUCOSE 2021-04-07 02:31:00 Danyell Mcmahon Ho spital Stephane POC GLUCOSE 2021-04-07 01:30:00 Danyell Mcmahon Ho spital Stephane XR ABDOMEN 1 PORTABLE 2021-04-06 23:09:04 [facility] XR CHEST 1 VW PORTABLE 2021-04-06 23:08:10 [facility] ECG 12-LEAD 2021-04-06 23:00:52 Linda Nolan spital PROTHROMBIN TIME WITH INR 2021-04-06 22:37:00 [facility] PARTIAL THROMBOPLASTIN 2021-04-06 22:37:00 [facility] TIME (PTT) POC GLUCOSE 2021-04-06 22:35:00 Danyell Mcmahon Ho spital Stephane ARTERIAL BLOOD GAS 2021-04-06 22:33:00 [facility] IONIZED CALCIUM, ARTERIAL 2021-04-06 22:33:00 [facility] BASIC METABOLIC PANEL 2021-04-06 22:32:00 Pedro Morejon [facility] HC COMPLETE BLD COUNT 2021-04-06 22:32:00 Pedro Morejon [facility] W/AUTO DIFF MAGNESIUM LEVEL 2021-04-06 22:32:00 Jean-Pierre [facility] PHOSPHORUS LEVEL 2021-04-06 22:32:00 Pedro Morejon [facility] ESTIMATED GFR 2021-04-06 22:32:00 Pedro Morejon [facility] ACTIVATED CLOTTING TIME 2021-04-06 21:51:00 [facility] POC BLOOD GAS, ARTERIAL 2021-04-06 21:33:00 [facility] Stephane TRANSFUSE PLATELET 2021-04-06 21:28:[address] [facility] PHERESIS TRANSFUSE FRESH FROZEN 2021-04-06 21:06:00 Pedrito Espinoza [facility] PLASMA ACTIVATED CLOTTING TIME 2021-04-06 21:01:00 [facility] POC BLOOD GAS, ARTERIAL 2021-04-06 20:50:00 [facility] AND [facility] TRANSFUSE RED BLOOD CELLS 2021-04-06 20:41:00 [facility] 2021-04-06 20:38:00 Miranda Mejia spital PROTHROMBIN TIME WITH INR 2021-04-06 20:38:00 [facility] FIBRINOGEN 2021-04-06 20:38:00 [facility] Veena Torres spital PARTIAL THROMBOPLASTIN 2021-04-06 20:38:00 [facility] TIME (PTT) ACTIVATED CLOTTING TIME 2021-04-06 20:31:00 [facility] Stephane ACTIVATED CLOTTING TIME 2021-04-06 20:01:00 [facility] POC BLOOD GAS, ARTERIAL 2021-04-06 19:59:00 [facility] AND LYBRAD Calderón ACTIVATED CLOTTING TIME 2021-04-06 19:32:00 [facility] Stephane POC BLOOD GAS, ARTERIAL 2021-04-06 19:29:00 [facility] AND LYBRAD Calderón TRANSFUSE RED BLOOD CELLS 2021-04-06 19:19:00 Espinoza [facility] ARTERIAL BLOOD GAS 2021-04-06 19:03:00 Mejia, [facility] HEMOGLOBIN, SYRINGE 2021-04-06 19:03:00 [facility] ACTIVATED CLOTTING TIME 2021-04-06 19:02:00 [facility] Stephane POC BLOOD GAS, ARTERIAL 2021-04-06 18:59:00 [facility] AND DONNA Calderón POC BLOOD GAS, ARTERIAL 2021-04-06 18:31:00 [facility] DONNA Calderón TRANSFUSE RED BLOOD CELLS 2021-04-06 18:04:00 Espinoza [facility] POC BLOOD GAS, ARTERIAL 2021-04-06 18:01:00 [facility] AND DONNA Calderón ACTIVATED CLOTTING TIME 2021-04-06 17:50:00 [facility] Stephane POC BLOOD GAS, ARTERIAL 2021-04-06 16:13:00 [facility] AND DONNA Calderón ACTIVATED CLOTTING TIME 2021-04-06 16:01:00 [facility] Stephane ANESTHESIA MARIE 2021-04-06 15:37:02 Rosario Nolan Ho spital Willy PA CATHETER 2021-04-06 15:36:27 Rosario Nolan Ho spital Willy CENTRAL LINE 2021-04-06 15:35:30 Rosario Nolan Ho spital Willy CENTRAL LINE 2021-04-06 15:34:57 Rosario Nolan Ho spital Willy POC BLOOD GAS, ARTERIAL 2021-04-06 14:59:00 [facility] DONNA Calderón ARTERIAL LINE 2021-04-06 14:50:20 Pedrito Espinoza ospital TRANSFUSE RED BLOOD CELLS 2021-04-06 14:38:00 Pedrito Espinoza [facility] NE AN ELECTIVE 2021-04-06 14:25:00 Pedrito Espinoza ospital ENDOTRACHEAL AIRWAY CABG, WITH ENDOSCOPIC VEIN 2021-04-06 14:07:00 Pedro Morejon in [facility] HARVESTING POC PANEL 2021-04-06 12:12:00 Pedro Morejon [facility] CABG, WITH ENDOSCOPIC VEIN 2021-04-03 13:30:00 Pedro Morejon in [facility] HARVESTING URINE CULTURE 2021-03-25 17:10:00 [facility] XR CHEST 2 VW 2021-03-25 16:48:19 [facility] TYPE AND SCREEN 2021-03-25 16:00:00 [facility] HC COMPLETE BLD COUNT 2021-03-25 16:00:00 [facility] W/AUTO DIFF BASIC METABOLIC PANEL 2021-03-25 16:00:00 [facility] PROTHROMBIN TIME WITH INR 2021-03-25 16:00:00 [facility] PARTIAL THROMBOPLASTIN 2021-03-25 16:00:00 [facility] TIME (PTT) URINALYSIS SCREEN AND 2021-03-25 16:00:00 [facility] MICROSCOPY, WITH REFLEX TO CULTURE D-DIMER 2021-03-25 16:00:00 Pedro Morejon [facility] ESTIMATED GFR 2021-03-25 16:00:00 [facility] PREPARE RBC 2021-03-25 16:00:00 [facility] PREPARE FRESH FROZEN 2021-03-25 16:00:00 [facility] PLASMA PREPARE PLATELET PHERESIS 2021-03-25 16:00:00 Cintia Coats as [facility] COVID-19 QUALITATIVE 2021-03-03 15:16:00 Jayant Arambula [facility] RT-PCR COVID-19 QUALITATIVE 2021-02-19 19:44:00 Pedro Morejon [facility] RT-PCR XR CHEST 2 VW 2021-02-19 19:34:25 Pedro Morejon [facility] URINE CULTURE 2021-02-19 19:24:00 Pedro Morejon [facility] ECG PRE/POST OP 2021-02-19 18:49:51 Pedro Morejon [facility] URINALYSIS SCREEN AND 2021-02-19 18:49:00 Pedro Morejon [facility] MICROSCOPY, WITH REFLEX TO CULTURE MRSA PCR 2021-02-19 18:48:00 Pedro Morejon [facility] LIPID PANEL 2021-02-19 18:43:00 Pedro Morejon [facility] HEMOGLOBIN A1C 2021-02-19 18:43:00 Pedro Morejon [facility] PARTIAL THROMBOPLASTIN 2021-02-19 18:43:00 Pedro Morejon [facility] TIME (PTT) PROTHROMBIN TIME WITH INR 2021-02-19 18:43:00 Pedro Morejon [facility] HC COMPLETE BLD COUNT 2021-02-19 18:43:00 Pedro Morejon [facility] W/AUTO DIFF TYPE AND SCREEN 2021-02-19 18:43:00 Pedro Morejon [facility] COMPREHENSIVE METABOLIC 2021-02-19 18:43:00 Pedro Morejon [facility] PANEL ESTIMATED GFR 2021-02-19 18:43:00 Pedro Morejon [facility] MAGNESIUM LEVEL 2021-02-19 18:43:00 Pedro Morejon [facility] ARTERIAL BLOOD GAS 2021-02-19 18:24:[address] [facility] US CAROTID DUPLEX 2021-02-02 19:14:[address] [facility] [place] BILATERAL CV CATH EXTERNAL STUDY 2021-01-08 20:39:13 Pedro Morejon [facility] POC GLUCOSE 2020-08-07 20:42:00 Bhaskar Skinner spijamaal Shada HEPATITIS B SURFACE AB, 2020-08-07 17:32:00 [facility] QUANTITATIVE HEPATITIS B SURFACE 2020-08-07 17:32:00 [facility] ANTIGEN POC GLUCOSE 2020-08-07 16:08:00 [facility] Shadaab POC GLUCOSE 2020-08-07 12:56:[address] HC COMPLETE BLD COUNT 2020-08-07 09:03:00 [facility] DIFF BASIC METABOLIC PANEL 2020-08-07 09:03:00 [facility]FR 2020-08-07 09:03:00 Nolan [facility] ospital LACTIC ACID LEVEL, SEPSIS 2020-08-07 03:00:00 [facility] 3 HOURS POC GLUCOSE 2020-08-07 01:36:00 [facility] Shadaab LACTIC ACID LEVEL, SEPSIS 2020-08-07 00:03:00 [facility] 2X EVERY 3 HOURS POC GLUCOSE 2020-08-06 23:14:00 [facility]al Shadaab COVID-19 QUALITATIVE 2020-08-06 22:43:00 [facility]INARY 2020-08-06 18:13:40 [facility] INTERPRETATION ECG 12-LEAD 2020-08-06 18:01:17 [facility] ospital XR CHEST 1 VW PORTABLE 2020-08-06 18:00:31 [facility]LO[facility], AEROBIC & 2020-08-06 17:41:00 [facility] BLOOD CULTURE, AEROBIC & 2020-08-06 17:20:00 Nolan [facility] ANAEROBIC LACTIC ACID LEVEL, SEPSIS 2020-08-06 17:17:00 Nolan [facility] - NOW AND REPEAT 2X EVERY 3 HOURS COMPREHENSIVE METABOLIC 2020-08-06 17:17:[address] [facility] PANEL HC COMPLETE BLD COUNT 2020-08-06 17:17:00 Nolan [facility] W/AUTO DIFF ESTIMATED GFR 2020-08-06 17:17:00 Nolan [facility] HEAD WO CONTRAST 2020-08-06 16:38:40 [facility] 2020-07-19 16:46:00 MoosaBhaskar elizabeth spital Shadaab POC GLUCOSE 2020-07-19 12:27:00 MoBhaskar evangelista spital Shadaab BASIC METABOLIC PANEL 2020-07-19 11:10:00 Milton Bhaskar [facility] ESTIMATED GFR 2020-07-19 11:10:00 Milton [facility]ar [facility] POC GLUCOSE 2020-07-19 01:53:00 MoosaBhaskar elizabeth spital Shadaab POC GLUCOSE 2020-07-18 22:56:00 MoosaBhaskar elizabeth spital Shadaab POC GLUCOSE 2020-07-18 22:07:00 MoosaBhaskar elizabeth spital Shadaab POC GLUCOSE 2020-07-18 17:40:00 MoosaBhaskar elizabeth spital Shadaab XR CHEST 1 VW PORTABLE 2020-07-18 16:37:09 Milton [facility] POC GLUCOSE 2020-07-18 12:54:00 MoBhaskar evangelista spital Shadaab TROPONIN 2020-07-18 04:05:00 Stacy Miller Lemus POC GLUCOSE 2020-07-18 01:55:00 MoosaBhaskar elizabeth spital Shadaab TROPONIN 2020-07-17 23:08:00 AngelaStacy fields Lemus POC GLUCOSE 2020-07-17 21:33:00 Moosavi, Bhaskarhector Torres Ho spital Shadaab TROPONIN 2020-07-17 20:35:00 Stacy Miller ECG 12-LEAD 2020-07-17 18:59:06 Moosavi, [facility] Shadaab POC GLUCOSE 2020-07-17 16:49:00 Moosavi, [facility] Shadaab POC GLUCOSE 2020-07-17 12:39:00 Moosavi, [facility] Shadaab BASIC METABOLIC PANEL 2020-07-17 09:54:00 [facility] HC COMPLETE BLD COUNT 2020-07-17 09:54:00 [facility] W/AUTO DIFF ESTIMATED GFR 2020-07-17 09:54:00 [facility] POC GLUCOSE 2020-07-17 01:12:00 Moosavi, Bhaskarhector Elizondoist Ho spital Shadaab POC GLUCOSE 2020-07-16 22:31:00 Moosavi, [facility] Shadaab POC GLUCOSE 2020-07-16 18:43:00 Moosavi, Bhaskarhector Torres Ho spital Shadaab NE AN ELECTIVE 2020-07-16 17:47:21 Micheline Pruett [facility] ENDOTRACHEAL AIRWAY INSERTION, CATHETER, 2020-07-16 17:15:00 [facility] DIALYSIS, PERITONEAL, LAPAROSCOPIC LYSIS, ADHESIONS, 2020-07-16 17:15:00 [facility] LAPAROSCOPIC POC PANEL 2020-07-16 17:01:00 Moosavi, [facility] Shadaab POC GLUCOSE 2020-07-16 13:11:00 Moosavi, [facility] Shadaab POC GLUCOSE 2020-07-16 01:59:00 Moosavi, [facility] Shadaab POC GLUCOSE 2020-07-15 22:42:00 Moosavi, [facility] Shadaab POC GLUCOSE 2020-07-15 16:29:00 Moosavi, [facility] Shadaab POC GLUCOSE 2020-07-15 13:15:00 Moosavi, [facility] Shadaab BASIC METABOLIC PANEL 2020-07-15 08:40:00 Milton [facility] ESTIMATED GFR 2020-07-15 08:40:00 Milton [facility] POC GLUCOSE 2020-07-15 01:23:00 Moosavi, [facility] Shadaab POC GLUCOSE 2020-07-14 20:46:00 Moosavi, [facility] Shadaab POC GLUCOSE 2020-07-14 18:29:00 Moosavi, Bhaskar Torres Ho spital Shadaab IR TUNNELED DIALYSIS 2020-07-14 16:40:34 Milton [facility] CATHETER PLACEMENT US GUIDED VASCULAR ACCESS 2020-07-14 16:31:38 Milton [facility] TTE COMPLETE, WO CONTRAST, 2020-07-14 15:20:13 Grabiel, [facility] W DOPPLER ([id number]) POC GLUCOSE 2020-07-14 13:18:00 MoosaBhaskar elizabethist Ho spital Shadaab PROTHROMBIN TIME WITH INR 2020-07-14 13:04:00 Milton [facility] ECG 12-LEAD 2020-07-14 10:47:20 Bhaskar Skinner spital Shadaab ECG 12-LEAD 2020-07-14 10:46:38 Batsheva Vergara H ospital HEMOGLOBIN & HEMATOCRIT 2020-07-14 10:25:00 Batsheva Vergara [facility] BASIC METABOLIC PANEL 2020-07-14 10:25:00 Milton [facility] ESTIMATED GFR 2020-07-14 10:25:00 Milton [facility] POC GLUCOSE 2020-07-14 02:05:00 MoosaviBhaskar Ho spital Shadaab POC GLUCOSE 2020-07-13 21:33:00 Moosavi, [facility] Shadaab HEPATITIS C ANTIBODY 2020-07-13 20:56:00 Milton, [facility] HC COMPLETE BLD COUNT 2020-07-13 17:53:00 [facility] W/AUTO DIFF HEPATITIS B SURFACE 2020-07-13 17:53:00 Milton, [facility] ANTIGEN HEPATITIS B SURFACE 2020-07-13 17:53:00 Milton, [facility] ANTIBODY HEPATITIS B CORE ANTIBODY 2020-07-13 17:53:00 Milton, [facility] TOTAL SMEAR REVIEW 2020-07-13 17:53:00 Milton, [facility] POC GLUCOSE 2020-07-13 16:34:00 Moosaclara, Bhaskarhector Elizondoist Ho spital Shadaab POC GLUCOSE 2020-07-13 13:42:00 Moosaclara, Bhaskarhector Torres Ho spital Shadaab BASIC METABOLIC PANEL 2020-07-13 08:50:00 Milton, [facility] HC COMPLETE BLD COUNT 2020-07-13 08:50:00 Milton, [facility] W/AUTO DIFF ESTIMATED GFR 2020-07-13 08:50:00 Milton, [facility] POC GLUCOSE 2020-07-13 02:26:00 Moosavi, Bhaskar Elizondoist Ho spital Shadaab POC GLUCOSE 2020-07-13 01:09:00 Moosavi, [facility] Shadaab POC GLUCOSE 2020-07-12 22:11:00 Moosavi, Bhaskarhector Elizondoist Ho spital Shadaab PARATHYROID HORMONE 2020-07-12 17:31:00 Milton, [facility] URIC ACID LEVEL 2020-07-12 17:31:00 Milton, [facility] POC GLUCOSE 2020-07-12 16:47:00 Moosavi, [facility] Shadaab POC GLUCOSE 2020-07-12 12:35:00 Moosavi, [facility] Shadaab HC COMPLETE BLD COUNT 2020-07-12 09:33:00 Maria Luz [facility] W/AUTO DIFF Sivan COMPREHENSIVE METABOLIC 2020-07-12 09:33:00 Manuela Braga [facility] PANEL Sivan THYROID STIMULATING 2020-07-12 09:33:00 Jeff Sweet [facility] HORMONE ESTIMATED GFR 2020-07-12 09:33:00 [facility] Sivan TROPONIN 2020-07-12 02:45:00 Lakhwinder Vásquez spital US RENAL 2020-07-12 01:56:43 [facility] POC GLUCOSE 2020-07-12 01:15:00 Ritu [facility] Shadaab COVID-19 QUALITATIVE 2020-07-12 00:24:00 [facility] Sivan HC COMPLETE BLD COUNT 2020-07-12 00:24:00 [facility] W/AUTO DIFF FERRITIN LEVEL 2020-07-12 00:24:00 [facility] URIC ACID LEVEL 2020-07-12 00:24:00 [facility] TOTAL IRON BINDING 2020-07-12 00:24:00 [facility] CAPACITY PARATHYROID HORMONE 2020-07-12 00:24:00 [facility] PROTEIN, URINE, RANDOM 2020-07-12 00:24:00 [facility] CREATININE LEVEL, URINE, 2020-07-12 00:24:00 [facility] RANDOM VITAMIN D 25 HYDROXY LEVEL 2020-07-12 00:24:00 [facility] URINE PROTEIN 2020-07-12 00:24:00 [facility] ELECTROPHORESIS, RANDOM SERUM ELECTROPHORESIS 2020-07-12 00:24:00 [facility] KAPPA LAMBDA FREE LIGHT 2020-07-12 00:24:00 [facility] CHAIN WITH RATIO URINE PROTEIN/CREATININE 2020-07-12 00:23:00 Milton, Bhaskar Ather [facility] RATIO, RANDOM TROPONIN 2020-07-11 23:42:00 Lakhwinder Vásquez spital XR CHEST 1 VW PORTABLE 2020-07-11 22:36:14 Maria Luz [facility] Sivan ECG 12-LEAD 2020-07-11 22:15:53 Moosavi, [facility] Shadaab ECG 12-LEAD 2020-07-11 22:14:36 Moosavi, [facility] Shadaab ECG 12-LEAD 2020-07-11 22:13:55 Moosavi, [facility] Shadaab ECG ED PRELIMINARY 2020-07-11 21:39:29 [facility] INTERPRETATION Sivan HC COMPLETE BLD COUNT 2020-07-11 21:36:00 [facility] W/AUTO DIFF Sivan COMPREHENSIVE METABOLIC 2020-07-11 21:36:00 [facility] Sivan B NATRIURETIC PEPTIDE 2020-07-11 21:36:00 [facility] Sivan ESTIMATED GFR 2020-07-11 21:36:00 [facility] Sivan TROPONIN 2020-07-11 20:45:00 Lakhwinder [...] (2 - Td or Tdap)] Future Scheduled 2023-06-[address] [facility] Test 00:00:00 [facility] Scre[facility] (12+) [code = Tobacco Cessation Counseling and Screening (12+)] Future Scheduled 2022-10-[address] [facility] Test 00:00:00 (Season Ended) [code = Medic al Center INFLUENZA VACCINE (Season Ended)] Future Scheduled 2022-10-[address] [facility] Test 00:00:00 (Season Ended) [code = Medic al Center INFLUENZA VACCINE (Season Ended)] Future Scheduled 2022-10-[address] [facility] Test 00:00:00 (Season Ended) [code = Medic al Center INFLUENZA VACCINE (Season Ended)] Future Scheduled 2022-08-[address] [facility] (procedure[facility] [code = 13123214] Future Scheduled 2022-08-[address] [facility] (procedure[facility] [code = 73740698] Future Scheduled 2022-08-[address] [facility] (procedure[facility] [code = 62608944] Future Scheduled 2022-08-[address] [facility] (procedure[facility] [code = [id number]] Future Scheduled 2022-08-[address] [facility] (procedure) [code = [id number]] Future Scheduled 2022-07-10 65+ [facility]OCOCCAL [facility] 18:31:40 VACCINE (1 - PCV) [code = 65+ PNEUMOCOCCAL VACCINE (1 - PCV)] Future Scheduled 2022-07-10 SHINGLES VACCINES (1 Met [facility] Test 18:31:40 of 2) [code = SHINGLES VACCINES (1 of 2)] Future Scheduled 2022-07-10 COVID-19 VACCINE (3 - [facility] Test 18:31:40 Booster for Pfizer series) [code = COVID-19 VACCINE (3 - Booster for Pfizer series)] Future Scheduled 2022-07-10 INFLUENZA VACCINE [facility] Test 18:31:40 [code = INFLUENZA VACCINE] Future Scheduled 2022-05-26 65+ [facility]OCO[facility] 10:33:15 VACCINE (1 - PCV) [code = 65+ PNEUMOCOCCAL VACCINE (1 - PCV)] Future Scheduled 2022-05-26 SHINGLES VACCINES (1 [facility] Test 10:33:15 of 2) [code = SHINGLES VACCINES (1 of 2)] Future Scheduled 2022-05-26 COVID-19 [facility]ACCINE [facility] 10:33:15 Booster for Pfizer series) [code = COVID-19 VACCINE (3 - Booster for Pfizer series)] Future Scheduled 2022-05-26 INFLUENZA VACCINE [facility] Test 10:33:15 [code = INFLUENZA VACCINE] Future Scheduled 2022-05-26 65+ [facility]OCOCC[address] [facility] Test 10:33:15 VACCINE (1 - PCV) [code = 65+ PNEUMOCOCCAL VACCINE (1 - PCV)] Future Scheduled 2022-05-26 SHINGLES VACCINES (1 Met [facility] Test 10:33:15 of 2) [code = SHINGLES VACCINES (1 of 2)] Future Scheduled 2022-05-26 COVID-19 VACCINE ([facility] - [facility] 10:33:15 Booster for Pfizer series) [code = COVID-19 VACCINE (3 - Booster for Pfizer series)] Future Scheduled 2022-05-26 INFLUENZA VACCINE [facility] Test 10:33:15 [code = INFLUENZA VACCINE] Future Scheduled 2022-02-[address] [...] Future Scheduled 2022-02-12 SHINGLES VACCINES (1 [facility] Test 09:40:19 of 2) [code = SHINGLES VACCINES (1 of 2)] Future Scheduled 2022-02-12 COVID-19 VACCINE ([facility] - [facility] 09:40:19 Booster for Pfizer series) [code = COVID-19 VACCINE (3 - Booster for Pfizer series)] Future Scheduled 2022-02-12 INFLUENZA VACCINE Method [facility] Test 09:40:19 [code = INFLUENZA VACCINE] Future Scheduled 2022-02-12 65+ P[facility]UMOCOCCAL [facility] Test 09:40:19 VACCINE (1 - PCV) [code = 65+ PNEUMOCOCCAL VACCINE (1 - PCV)] Future Scheduled 2022-02-12 SHINGLES VACCINES (1 Met [facility] Test 09:40:19 of 2) [code = SHINGLES VACCINES (1 of 2)] Future Scheduled 2022-02-12 COVID-19 VACCINE (3 - [facility] 09:40:19 Booster for Pfizer series) [code = COVID-19 VACCINE (3 - Booster for Pfizer series)] Future Scheduled 2022-02-12 INFLUENZA VACCINE Method [facility] Test 09:40:19 [code = INFLUENZA VACCINE] Future Scheduled 2021-12-21 HEPATITIS B VACCINES Met [facility] Test 11:19:28 (1 of 3 - 3-dose series) [code = HEPATITIS B VACCINES (1 of 3 - 3-dose series)] Future Scheduled 2021-12-21 65+ [facility]28 VACCINE (1 - PCV) [code = 65+ PNEUMOCOCCAL VACCINE (1 - PCV)] Future Scheduled 2021-12-21 SHINGLES VACCINES (1 Met [facility] Test 11:19:28 of 2) [code = SHINGLES VACCINES (1 of 2)] Future Scheduled 2021-12-21 COVID-19 VACCINE (3 - [facility] Test 11:19:28 Booster for Pfizer series) [code = COVID-19 VACCINE (3 - Booster for Pfizer series)] Future Scheduled 2021-12-21 INFLUENZA VACCINE Method [facility] Test 11:19:28 [code = INFLUENZA VACCINE] Future Scheduled 2021-12-21 HEPATITIS B VACCINES Met [facility] Test 11:19:28 (1 of 3 - 3-dose series) [code = HEPATITIS B VACCINES (1 of 3 - 3-dose series)] Future Scheduled 2021-12-21 65+ [facility]OCOCCAL [facility] Test 11:19:28 VACCINE (1 - PCV) [code = 65+ PNEUMOCOCCAL VACCINE (1 - PCV)] Future Scheduled 2021-12-21 SHINGLES VACCINES (1 Met [facility] Test 11:19:28 of 2) [code = SHINGLES VACCINES (1 of 2)] Future Scheduled 2021-12-21 COVID-19 VACCINE (3 - [facility] Test 11:19:28 Booster for Pfizer series) [code = COVID-19 VACCINE (3 - Booster for Pfizer series)] Future Scheduled 2021-12-21 INFLUENZA VACCINE Method [facility] Test 11:19:28 [code = INFLUENZA VACCINE] Future Scheduled 2021-12-21 HEPATITIS B VACCINES Met [facility] Test 11:19:28 (1 of 3 - 3-dose series) [code = HEPATITIS B VACCINES (1 of 3 - 3-dose series)] Future Scheduled 2021-12-21 65+ [facility] 11:19:28 VACCINE (1 - PCV) [code = 65+ PNEUMOCOCCAL VACCINE (1 - PCV)] Future Scheduled 2021-12-21 SHINGLES VACCINES (1 Met [facility] Test 11:19:28 of 2) [code = SHINGLES VACCINES (1 of 2)] Future Scheduled 2021-12-21 COVID-19 VACCINE (3 - Me [facility] Test 11:19:28 Booster for Pfizer series) [code = COVID-19 VACCINE (3 - Booster for Pfizer series)] Future Scheduled 2021-12-21 INFLUENZA VACCINE Method [facility] Test 11:19:28 [code = INFLUENZA VACCINE] Future Scheduled 2021-12-21 HEPATITIS B VACCINES Met [facility] Test 11:19:28 (1 of 3 - 3-dose series) [code = HEPATITIS B VACCINES (1 of 3 - 3-dose series)] Future Scheduled 2021-12-21 65+ [facility]OCOCCAL [facility] Test 11:19:28 VACCINE (1 - PCV) [code = 65+ PNEUMOCOCCAL VACCINE (1 - PCV)] Future Scheduled 2021-12-21 SHINGLES VACCINES (1 Met [facility] Test 11:19:28 of 2) [code = SHINGLES VACCINES (1 of 2)] Future Scheduled 2021-12-21 COVID-19 VACCINE (3 - Me [facility] Test 11:19:28 Booster for Pfizer series) [code = COVID-19 VACCINE (3 - Booster for Pfizer series)] Future Scheduled 2021-12-21 INFLUENZA VACCINE Method [facility] Test 11:19:28 [code = INFLUENZA VACCINE] Future Scheduled 2021-12-10 HEPATITIS B VACCINES Met [facility] Test 15:42:41 (1 of 3 - 3-dose series) [code = HEPATITIS B VACCINES (1 of 3 - 3-dose series)] Future Scheduled 2021-12-10 65+ [facility]OCO[address]AL [facility] Test 15:42:41 VACCINE (1 - PCV) [code = 65+ PNEUMOCOCCAL VACCINE (1 - PCV)] Future Scheduled 2021-12-10 SHINGLES VACCINES (1 Met [facility] Test 15:42:41 of 2) [code = SHINGLES VACCINES (1 of 2)] Future Scheduled 2021-12-10 COVID-19 VACCINE (3 - Me [facility] Test 15:42:41 Booster for Pfizer series) [code = COVID-19 VACCINE (3 - Booster for Pfizer series)] Future Scheduled 2021-12-10 INFLUENZA VACCINE Method [facility] Test 15:42:41 [code = INFLUENZA VACCINE] Future Scheduled 2021-12-10 HEPATITIS B VACCINES Met [facility] Test 15:42:41 (1 of 3 - 3-dose series) [code = HEPATITIS B VACCINES (1 of 3 - 3-dose series)] Future Scheduled 2021-12-10 65+ [facility] VACCINE (1 - PCV) [code = 65+ PNEUMOCOCCAL VACCINE (1 - PCV)] Future Scheduled 2021-12-10 SHINGLES VACCINES (1 Met [facility] Test 15:42:41 of 2) [code = SHINGLES VACCINES (1 of 2)] Future Scheduled 2021-12-10 COVID-19 VACCINE (3 - Me [facility] Test 15:42:41 Booster for Pfizer series) [code = COVID-19 VACCINE (3 - Booster for Pfizer series)] Future Scheduled 2021-12-10 INFLUENZA VACCINE Method [facility] Test 15:42:41 [code = INFLUENZA VACCINE] Future Scheduled 2021-12-10 HEPATITIS B VACCINES Met [facility] Test 15:42:41 (1 of 3 - 3-dose series) [code = HEPATITIS B VACCINES (1 of 3 - 3-dose series)] Future Scheduled 2021-12-10 65[facility] 15:42:41 VACCINE (1 - PCV) [code = 65+ PNEUMOCOCCAL VACCINE (1 - PCV)] Future Scheduled 2021-12-10 SHINGLES VACCINES (1 Met [facility] Test 15:42:41 of 2) [code = [...] Met [facility] Test 15:42:41 (1 of 3 - 3-dose series) [code = HEPATITIS B VACCINES (1 of 3 - 3-dose series)] Future Scheduled 2021-12-10 65+ [facility]OCOCCAL [facility] 15:42:41 VACCINE (1 - PCV) [code = 65+ PNEUMOCOCCAL VACCINE (1 - PCV)] Future Scheduled 2021-12-10 SHINGLES VACCINES (1 Met [facility] Test 15:42:41 of 2) [code = SHINGLES VACCINES (1 of 2)] Future Scheduled 2021-12-10 COVID-19 VACCINE (3 - Me [facility] Test 15:42:41 Booster for Pfizer series) [code = COVID-19 VACCINE (3 - Booster for Pfizer series)] Future Scheduled 2021-12-10 INFLUENZA VACCINE Method [facility] Test 15:42:41 [code = INFLUENZA VACCINE] Future Scheduled 2021-11-13 HEPATITIS B VACCINES Met [facility] Test 12:46:56 (1 of 3 - 3-dose series) [code = HEPATITIS B VACCINES (1 of 3 - 3-dose series)] Future Scheduled 2021-11-13 65+ P[facility]OCOCCAL [facility] Test 12:46:56 VACCINE (1 - PCV) [code = 65+ PNEUMOCOCCAL VACCINE (1 - PCV)] Future Scheduled 2021-11-13 SHINGLES VACCINES (1 Met [facility] Test 12:46:56 of 2) [code = SHINGLES [...] Future Scheduled 2021-03-31 COVID-19 VACCINE (3 - [facility] Test 07:32:58 Booster for Pfizer series) [...] 00:00:00 examination Medical Center (regime/therapy) [code = 016427294] Future Scheduled 1952 Urine screening for [facility] Test 00:00:00 protein (procedure) Medical Center [code = 141464581] Future Scheduled 1952 DIABETIC EYE EXAM [facility] Test 00:00:00 [code = DIABETIC EYE Medical Center EXAM] Future Scheduled [address] [facility] examination Medical Center (regime/therapy) [code = 944695868] Future Scheduled 1952 Urine screening for [facility] Test 00:00:00 protein (procedure) Medical Center [code = 125391709] Future Scheduled [address] DIABETIC EYE EXAM [facility] Test 00:00:00 [code = DIABETIC EYE Medical Center EXAM] Future Scheduled [address] [facility] 00:[facility]:00 examination Medical Center (regime/therapy) [code = 570542444] Future Scheduled 1952 Urine screening for [facility] Test 00:00:00 protein (procedure) Medical Center [code = 236199758] Future Scheduled 1952 DIABETIC EYE EXAM [facility] Test 00:00:00 [code = DIABETIC EYE Medical Center EXAM] Future Scheduled [address] [facility] 00:[facility]:00 examination Medical Center (regime/therapy) [code = 542241934] Future Scheduled 1952 Urine screening for [facility] Test 00:00:00 protein (procedure) Medical Center [code = 058812787] Future Scheduled 1952 DIABETIC EYE EXAM [facility] Test 00:00:00 [code = DIABETIC EYE Medical Center EXAM] Future Scheduled [address] [facility] 00:00:00 examination Medical Center (regime/therapy) [code = 106228723] Future Scheduled 1952 Urine screening for [facility] Test 00:00:00 protein (procedure) Medical Center [code = 312965176] Future Scheduled 1948 PNEUMOCOCCAL 65+ YRS [facility] Test 00:00:00 (1 - PCV) [code = Medical Ce nter PNEUMOCOCCAL 65+ YRS (1 - PCV)] Future Scheduled 1948 PNEUMOCOCCAL 65+ YRS [facility] Test 00:00:00 (1 - PCV) [code = Medical Ce nter PNEUMOCOCCAL 65+ YRS (1 - PCV)] Future Scheduled 1948 PNEUMOCOCCAL 65+ YRS [facility] Test 00:00:00 (1 - PCV) [code = Medical Ce nter PNEUMOCOCCAL 65+ YRS (1 - PCV)] Future Scheduled 1948 PNEUMOCOCCAL 65+ YRS [facility] Test 00:00:00 (1 - PCV) [code = Medical Ce nter PNEUMOCOCCAL 65+ YRS (1 - PCV)] Future Scheduled 1948 PNEUMOCOCCAL 65+ YRS [facility] [...] [facility]XA [facility] Test 00:00:00 SCAN] [facility] Future Scheduled 1942 DXA SCAN [code = DXA [facility] Test 00:00:00 SCAN] [facility] Future Scheduled 1942 DXA SCAN [code = DXA [facility] Test 00:00:00 SCAN] [facility] Future Scheduled 1942 DXA SCAN [code = DXA [facility] Test 00:00:00 SCAN] [facility] Future Scheduled 1942 DXA SCAN [code = DXA [facility] Test 00:00:00 SCAN] [facility] Future Scheduled 1942 DXA SCAN [code = DXA [facility] Test 00:00:00 SCAN] [facility] Future Scheduled 1942 DXA SCAN [code = DXA [facility] Test 00:00:00 SCAN] [facility] Future Scheduled 1942 DXA SCAN [code = DXA [facility] Test 00:00:00 SCAN] [facility] Future Scheduled 1942 DXA SCAN [code = DXA [facility] Test 00:00:00 SCAN] [facility] Future Scheduled 1942 DXA SCAN [code = DXA [facility] Test 00:00:00 SCAN] [facility] Future Scheduled 1942 DXA SCAN [code = DXA [facility] Test 00:00:00 SCAN] [facility] Future Scheduled 1942 DXA SCAN [code = DXA [facility] Test 00:00:00 SCAN] Medical Center Encounters Start End Encounter Admission Attending Care Care Encounter Source Date/Time Date/Time Type Type Clinicians Facility Department ID 2022-05-[address] [facility] [id number] Common 11:20:02 [place] [address] [facility] 2021-10-21 Outpatient Medina, STLALA [facility] [id number] Common 09:42:03 [place] [facility] 2021-09-25 Outpatient Medina, [facility] [id number] Common 15:05:01 [place] [facility] 2021-09-24 Outpatient Medina, [facility] [id number] Common 09:52:03 [facility] 2022-05-26 2022-06-20 Inpatient ER [facility] Medical ICU [id number] [facility] 19:05:00 13:35:00 ANUSHA 2022-05-26 2022-06-20 Hospital Rut Juares [facility] [id number] [facility] 19:05:00 13:35:00 Encounter Wendy Mascorro, [facility] danuta Allen, Jonatan Geller, Yordy Victoriacarmen Nalam, Anusha Angelita Rahman 2022-06-12 2022-06-12 Travel [facility] [id number] [facility] 00:[facility] 00:00:00 [facility] 2022-06-11 2022-06-11 Orders [facility] [id number] 00:00:00 00:00:00 [facility] 2022-05-30 2022-05-30 Orders [facility] [id number] 00:00:00 00:00:00 [facility] 2022-05-30 2022-05-30 Orders [facility] [id number] 00:00:00 00:00:00 [facility] 2022-05-28 2022-05-28 Telephone Carol [facility] [id number] 00:00:00 00:00:00 [facility] 2022-05-28 2022-05-28 Telephone Carol [facility] [id number] 00:00:00 00:00:00 [facility] 2022-05-26 2022-05-26 Orders [facility] [id number] 00:00:00 00:00:00 [facility] 2022-05-26 2022-05-26 Orders [facility] [id number] 00:00:00 00:00:00 [facility] 2022-03-18 2022-03-31 [facility] Marguerite Benoit [facility] [id number] [facility] 14:38:00 11:04:00 Encounter Ирина Jaramillo [facility] 2022-03-18 2022-03-31 Inpatient [facility] Nephrology [id number] [facility] 14:38:00 11:04:00 [facility] 2022-03-18 2022-03-31 [facility] [id number] [facility] 14:38:00 11:04:00 Encounter Ирина Jaramillo [facility] 2022-03-22 2022-03-22 Orders [facility] [id number] 00:00:00 00:00:00 [facility] 2022-03-22 2022-03-22 Orders [facility] [id number] 00:00:00 00:00:00 [facility] 2022-03-18 2022-03-18 Travel [facility] [id number] [facility] 00:00:00 00:00:00 [facility] 2022-03-18 2022-03-18 Travel [facility] [id number] [facility] 00:00:00 00:00:00 [facility] 2022-02-17 2022-03-05 Hospital UR Ирина Jaramillo [facility] [id number] 01:31:00 18:41:00 Encounter Marguerite Benoit [facility] 2022-02-17 2022-03-05 [facility] [id number] [facility] 01:31:00 18:41:00 ИРИНА 2022-02-17 2022-03-05 Hospital Ирина Jaramillo [facility] [id number] 01:31:00 18:41:00 Encounter [facility]22-02-17 2022-02-17 Travel [facility] [id number] [facility] 00:00:00 00:00:00 [facility] 2022-02-17 2022-02-17 Travel [facility] [id number] [facility] 00:00:00 00:00:00 [facility] 2021-12-17 2021-12-17 [id number] 00:00:00 00:00:00 Only Pallavolu [facility] 2021-12-17 2021-12-17 [facility] [id number] 00:00:00 00:00:00 Only Pallavolu ke s [facility] 2021-11-29 2021-12-[address] [facility] [id number] [id number] 02:33:00 12:37:00 Encounter [facility] 2021-11-29 2021-12-10 [facility] [id number] [id number] 02:33:00 12:37:00 Encounter [facility] 2021-11-29 2021-12-10 Inpatient ER [facility] [id number] [facility] 02:33:00 12:37:00 Med 2021-11-29 2021-11-29 Outpatient [facility] [id number] [address] [place] [address] 00:00:00 23:59:00 Stefg e of Medicin e 2021-11-29 2021-11-29 [facility] [id number] 00:00:00 00:00:00 [facility] 2021-11-29 2021-11-29 [facility] [id number] 00:00:00 00:00:00 [facility] 2021-10-28 2021-10-28 (TEL) STLMLC STLMLC [id number] Co mmon 00:00:00 00:00:00 Spirit - [facility] 2021-10-23 2021-10-23 OFFICE STLMLC STLMLC [id number] Co mmon 00:00:00 00:00:00 VISIT Spirit ESTAB PT - [facility]I LEVEL 4 [facility] 2021-10-23 2021-10-23 (MCR WELL) STLMLC STLMLC [id number] Common 00:00:00 00:00:00 Medicare Spiri t Wellness - [facility] 2021-09-24 2021-09-24 OFFICE STLMLC STLMLC [id number] Co mmon 00:00:00 00:00:00 VISIT NEW Spir it PT LEVEL 5 - [facility] 2021-06-02 2021-06-02 Office Jean-Pierre, 1.2.840.1 [id number] Methodi 13:45:00 13:48:12 Visit Pedro Montoya 52340.1.[address] 3.430.2.7 Hospit a .3.938559 l .8 2021-06-02 2021-06-02 Travel 1.2.840.1 1.2.573.854 8349 [id number] Methodi 00:00:00 00:00:[address] 3.430.2.7 0.2.7.3.698 Ho spita .3.775175 084.8 l .8 2021-05-26 2021-05-26 Telephone Jaqui, 1.2.840.1 [id number] Methodi 00:00:00 00:00:[address] 3.430.2.7 Hospit a .3.768977 l .8 2021-04-06 2021-04-16 Hospital Pedro Morejon 1.2.840.1 [id number] Methodi 05:25:00 15:55:00 Encounter Miranda MejiaDanielle 86188.1.[address] Danyell Mcmahon 3.430.2.7 Hospita .3.350718 l .8 2021-04-06 2021-04-06 Anesthesia NolanRosario Willy 1.2.840 .1 [id number] Methodi 08:08:00 16:38:00 Event Pedrito Espinoza 24240.1.[address] 3.430.2.7 Hospit a .3.519634 l .8 2021-04-06 2021-04-06 Surgery Jean-Pierre 1.2.840.1 [id number] Methodi 07:30:00 12:00:00 Pedro Montoya [address]476.1.[address] 3.430.2.7 Hospit a .3.217647 l .8 2021-04-06 2021-04-06 Travel 1.2.840.1 1.2.351.125 1438 010220 Methodi 00:00:00 00:00:[address] 3.430.2.7 0.2.7.3.698 spita .3.597069 084.8 l .8 2021-03-30 2021-03-30 Orders Razo, 1.2.840.1 [id number] Methodi 00:00:00 00:00:00 Only Neelima Roman 14325.1.[address] 3.430.2.7 Hospit a .3.124732 l .8 2021-03-27 2021-03-27 Orders Razo, 1.2.840.1 [id number] Methodi 00:00:00 00:00:00 Only Neelima Bellul 10115.1.[address] 3.430.2.7 Hospit a .3.406166 l .8 2021-03-25 2021-03-25 [facility] 1.2.840.1 [id number] 2 [id number] Methodi 10:09:35 23:59:00 Aston Castillo 80925.1.[address] 3.430.2.7 Hospit a .3.855081 l .8 2021-03-25 2021-03-25 Pre-Admiss Jean-Pierre, 1.2.840.1 [id number] 686 [id number] Methodi 10:00:00 11:00:00 [address]os [address].1.[address] Testing 3.430.2.7 Hospit a .3.474113 l .8 2021-03-25 2021-03-25 Orders Abdiaziz, 1.2.840.1 [id number] 9938 Methodi 00:00:00 00:00:00 Only Norma 77840.1.[address] 3.430.2.7 Hospit a .3.265010 l .8 2021-03-24 2021-03-24 Orders Abdiaziz, 1.2.840.1 [id number] 3422 Methodi 00:00:00 00:00:00 Only Norma 82958.1.[address] 3.430.2.7 Hospit a .3.474176 l .8 2021-03-24 2021-03-24 Orders Jl, 1.2.840.1 [id number] 8656 Methodi 00:00:00 00:00:00 Only Carmelina Finnegan 66176.1.1 [address] t 3.430.2.7 Hospit a .3.883218 l .8 2021-03-24 2021-03-24 Travel 1.2.840.1 1.2.954.688 7147 333755 Methodi 00:00:00 00:00:[address] 3.430.2.7 0.2.7.3.698 Ho spita .3.085763 084.8 l .8 2021-03-03 2021-03-03 Outpatient JEAN-PIERRE, [facility] [id number] [address] [place] 00:00:00 00:00:[address] 2021-03-03 2021-03-03 Transcribe Jean-Pierre, 1.2.840.1 [id number] Methodi 00:00:00 00:00:00 Orders Pedro Montoya 33329.1.[address] 3.430.2.7 Hospit a .3.954600 l .8 2021-02-26 2021-02-26 Prep for Mccarthy, 1.2.840.1 [id number] 56248 Methodi 00:00:00 00:00:00 Surgery Shelia 80848.1.[address] 3.430.2.7 Hospit a .3.150747 l .8 2021-02-19 2021-02-25 Pre-Admiss Jean-Pierre, 1.2.840.1 [id number] 927 [id number] Methodi 12:00:00 10:03:18 ion Pedro Montoya 01194.1.[address] Testing 3.430.2.7 Hospit a .3.588994 l .8 2021-02-23 2021-02-23 Transcribe Jean-Pierre, 1.2.840.1 [id number] 494 [id number] Methodi 00:00:00 00:00:00 Orders Pedro Montoya 78041.1.[address] 3.430.2.7 Hospit a .3.570808 l .8 2021-02-19 2021-02-19 [facility] Jean-Pierre, 1.2.840.1 [id number] 81591 Methodi 13:13:46 23:59:00 Encounter Pedro Montoya 86509.1.[address] 3.430.2.7 Hospit a .3.980458 l .8 2021-02-19 2021-02-19 [facility] Jean-Pierre, 1.2.840.1 [id number] 81051 Methodi 10:30:00 11:17:24 Encounter Pedro Montoya 13319.1.[address] 3.430.2.7 Hospit a .3.729546 l .8 2021-02-19 2021-02-19 Outpatient JEAN-PIERRE [facility] [id number] [address] [place] 00:00:00 00:00:00 PEDRO [address] 2021-02-19 2021-02-19 Felipa Granger, 1.2.840.1 [id number] 2707 Methodi 00:00:00 00:00:00 Only Ana Maria Jacobs 90598.1.[address] 3.430.2.7 Hospit a .3.736584 l .8 2021-02-19 2021-02-19 Travel 1.2.840.1 1.2.088.363 6882 161401 Methodi 00:00:00 00:00:[address] 3.430.2.7 0.2.7.3.698 Ho spita .3.462496 084.8 l .8 2021-02-17 2021-02-17 Travel 1.2.840.1 1.2.134.632 1734 562114 Methodi 00:00:00 00:00:[address] 3.430.2.7 0.2.7.3.698 Ho spita .3.877741 084.8 l .8 2021-02-16 2021-02-16 Felipa Morejon, 1.2.840.1 [id number] 6093 Methodi 00:00:00 00:00:00 Only Pedro Montoya 51624.1.[address] 3.430.2.7 Hospit a .3.661568 l .8 2021-02-03 2021-02-03 Prep for Mccarthy, 1.2.840.1 [id number] 82633 67485 Methodi 00:00:00 00:00:00 Surgery Shelia 94679.1.[address] 3.430.2.7 Hospit a .3.055424 l .8 2021-02-02 2021-02-02 Outpatient JEAN-PIERRE [facility] [id number] [address] [place] 00:00:00 00:00:00 PEDRO [address] 2021-02-02 2021-02-02 Travel 1.2.840.1 1.2.475.891 7141 112250 Methodi 00:00:00 00:00:[address] 3.430.2.7 0.2.7.3.698 Ho spita .3.862095 084.8 l .8 2021-01-08 2021-01-08 Office Jean-Pierre, 1.2.840.1 [id number] 7096 Methodi 14:30:00 16:02:28 Visit Pedro Montoya 94389.1.[address] 3.430.2.7 Hospit a .3.127705 l .8 2021-01-08 2021-01-08 Ancillary Jean-Pierre, 1.2.840.1 [id number] 2099 968988 Methodi 14:40:00 14:55:00 Procedure Pedro Montoya 11336.1.[address] 3.430.2.7 Hospit a .3.950909 l .8 2021-01-08 2021-01-08 Nurse Only Jaqui, 1.2.840.1 [id number] Methodi 00:00:00 00:00:[address] 3.430.2.7 Hospit a .3.863543 l .8 2021-01-08 2021-01-08 Orders Jean-Pierre, 1.2.840.1 [id number] 8748 Methodi 00:00:00 00:00:00 Only Pedro Gregoriowin 19015.1.[address] 3.430.2.7 Hospit a .3.610786 l .8 2020-12-18 2020-12-18 [facility] 7502 Memoria 06:29:00 17:01:00 LIZZY Aguilar [facility] 2020-08-06 2020-08-07 Emergency NolanNorman 1.2.840.1 42390 1004 [id number] Methodi 11:55:00 16:30:00 Bhaskar [address]inner [address]337.1.[address] 3.430.2.7 Hospit a .3.268563 l .8 2020-08-06 2020-08-06 Travel 1.2.840.1 1.2.518.122 0683 380261 Methodi 00:00:00 00:00:[address] 3.430.2.7 0.2.7.3.698 Ho spita .3.046828 084.8 l .8 2020-07-25 2020-07-25 Office Chantal 1.2.840.1 [id number] 2596 Methodi 12:57:17 13:55:12 Visit Demarcus Alcazar 89092.1.[address] 3.430.2.7 Hospit a .3.400429 l .8 2020-07-25 2020-07-25 Travel 1.2.840.1 1.2.176.035 8530 396939 Methodi 00:00:00 00:00:[address] 3.430.2.7 0.2.7.3.698 Ho spita .3.559894 084.8 l .8 2020-07-11 2020-07-19 [facility].2.840[facility]1 [id number] Methodi 16:15:00 14:37:00 Encounter Bhaskar Skinner 88384.1.[address] 3.430.2.7 Hospit a .3.806186 l .8 2020-07-16 2020-07-16 Surgery Cornejo, 1.2.840.1 [id number] 4893 Methodi 12:30:00 14:00:00 Demarc[address] T. 61422.1.[address] 3.430.2.7 Hospit a .3.648509 l .8 2020-07-16 2020-07-16 Anesthesia Jayant Arambula 1.2.840.1 924055 012 [id number] Methodi 12:19:00 13:20:00 Event Irma Turpin 73644.1.[address] 3.430.2.7 Hospit a .3.439353 l .8 2020-07-11 2020-07-11 Travel 1.2.840.1 1.2.927.302 3322 270903 Methodi 00:00:00 00:00:[address] 3.430.2.7 0.2.7.3.698 Ho spita .3.374335 084.8 l .8 2019-11-20 2019-11-21 Inpatient E ALPESH, [facility] MED [id number] Memoria 10:38:00 15:47:00 MARTITA l Preetlos Cortez Memoria l 2019-02-05 2019-02-05 Inpatient U [facility] MED 7500 Memoria 10:30:00 07:48:00 l Preet Memoria l [facility] 2015-01-29 2015-01-29 Unknown nullFlavo [place] [id number] -[id number] Memoria 20:15:00 20:15:00 r Primary [id number] l Care [id number] [facility] [id number] 2015-01-29 2015-01-29 Unknown nullFlavo [place] [id number] -[id number] Memoria 20:15:00 20:15:00 r Primary [id number] l Care [id number] [facility] [id number] 2015-01-29 2015-01-29 Out[place] [address] [facility] 14:15:00 14:15:00 Primary Primary alWork s Care [facility] 2014-12-19 2014-12-19 Unknown nullFlavo [place] [id number] -f Memoria 19:41:00 19:41:00 r Primary [id number]-8 l Care [id number] [facility] [id number] 2014-12-19 2014-12-19 Unknown nullFlavo [place] [id number] -f Memoria 19:41:00 19:41:00 r Primary 639-4a6a-8 l Care [id number] [facility] [id number] 2014-11-21 2014-11-21 Unknown nullFlavo [place] [id number] -[id number] Memoria 21:30:00 21:30:00 r Primary 04a-488c-9 l Care [id number] [facility] [id number] 2014-11-21 2014-11-21 Unknown nullFlavo [place] [id number] -7 Memoria 21:30:00 21:30:00 r Primary 04a-488c-9 l Care [id number] [facility] [id number] 2014-06-10 2014-06-10 Unknown [place]Fl[facility] [place] [id number] -1 [facility] 16:00:00 16:00:00 r Primary 91d-488f-8 l Care [id number] [facility] [id number] 2014-06-10 2014-06-10 Unknown [place]Fl[facility] [place] [id number] -1 [facility] 16:00:00 16:00:00 r Primary 91d-488f-8 l Care [id number] [facility] [id number] 2014-06-10 2014-06-10 Unknown [place]Fl[facility] [place] [id number] -a [facility] 15:00:00 15:00:00 r Primary 355-4d22-a l Care [id number] [facility] [id number] 2014-06-10 2014-06-10 Unknown [place]Flavo [place] [id number] -4 [facility] 15:00:00 15:00:00 r Primary [id number] l Care [id number] [facility] [id number] 2014-06-10 2014-06-10 Unknown [place] [place] [id number] -7 [facility] 15:00:00 15:00:00 r Primary 85e-47a6-a l Care [id number] [facility] [id number] 2014-06-10 2014-06-10 Unknown [place] [place] [id number] -7 [facility] 15:00:00 15:00:00 r Primary 85e-47a6-a l Care [id number] [facility] [id number] 2014-06-10 2014-06-10 Unknown [place]Fl[facility] [place] [id number] -a [facility] 15:00:00 15:00:00 r Primary 355-4d22-a l Care [id number] [facility] [id number] 2014-06-10 2014-06-10 Unknown [place]Fl[facility] [place] [id number] -4 [facility] 15:00:00 15:00:00 r Primary 683-4b16-9 l Care [id number] [facility] [id number] 2014-06-10 2014-06-10 [facility] [place] [id number] [facility] 10:00:00 10:00:00 Primary Primary alWork s [facility] 2014-05-17 2014-05-17 Unknown [place]Fl[facility] [place] [id number] -c [facility] 16:15:00 16:15:00 r Primary 5m6-6o05-8 l Care [id number] [facility] [id number] 2014-05-17 2014-05-17 Unknown [place]Fl[facility] [place] [id number] -c [facility] 16:15:00 16:15:00 r Primary 1f1-8p48-4 l Care [id number] [facility] [id number] 2014-05-17 2014-05-17 Unknown [facility]Fl[facility] [place] [id number] -9 [facility] 15:15:00 15:15:00 r Primary [id number] l Care [id number] [facility] [id number] 2014-05-17 2014-05-17 Unknown [facility]Fl[facility] [place] [id number] -5 [facility] 15:15:00 15:15:00 r Primary ce5-474d-a l Care [id number] [facility] [id number] 9768-03-20 2014-05-17 Unknown [facility]Fl[facility] [place] [id number] -2 [facility] 15:15:00 15:15:00 r Primary cc8-4483-b l Care [id number] [facility] [id number] 2014-05-17 2014-05-17 Unknown [facility] [place] [id number] -9 [facility] 15:15:00 15:15:00 r Primary o63-694i-[id number] l Care [id number] [facility] [id number] 2014-05-17 2014-05-17 Unknown [facility]Fl[facility] [place] [id number] -5 [facility] 15:15:00 15:15:00 r Primary ce5-474d-a l Care [id number] [facility] [id number] 5512-03-20 2014-05-17 Unknown [facility]Fl[facility] [place] [id number] -2 [facility] 15:15:00 15:15:00 r Primary cc8-4483-b l Care [id number] [facility] [id number] 2014-05-17 2014-05-17 [place] [address] eClinic 10:15:00 10:15:00 Primary Primary alWork [facility] s 2014-04-15 2014-04-15 Unknown nullFlavo [place] [id number] -d Memoria 22:42:00 22:42:00 r Primary u1n-6r5d-f l Care [id number] [facility] [id number] 2014-04-15 2014-04-15 Unknown nullFlavo [place] [id number] -d Memoria 22:42:00 22:42:00 r Primary i6c-5i9y-w l Care [id number] [facility] [id number] 2014-04-15 2014-04-15 Unknown nullFlavo [place] [id number] -4 Memoria 21:42:00 21:42:00 r Primary 0ac-4496-9 l Care [id number] [facility] [id number] 2014-04-15 2014-04-15 Unknown nullFlavo [place] [id number] -9 [facility]oria 21:42:00 21:42:00 r Primary 60e-47e5-8 l Care [id number]-[id number] [facility] [id number] 2014-04-15 2014-04-15 Unknown nullFlavo [place] [id number] -7 Memoria 21:42:00 21:42:00 r Primary 827-48a3-b l Care [id number] [facility] [id number] 2014-04-15 2014-04-15 Unknown nullFlavo [place] [id number] -7 Memoria 21:42:00 21:42:00 r Primary 827-48a3-b l Care [id number] [facility] [id number] 2014-04-15 2014-04-15 Unknown nullFlavo [place] [id number] -4 Memoria 21:42:00 21:42:00 r Primary 0ac-4496-9 l Care [id number] [facility] [id number] 2014-04-15 2014-04-15 Unknown nullFlavo [place] [id number] -9 [facility]oria 21:42:00 21:42:00 r Primary 60e-47e5-8 l Care [id number]-[id number] [facility] 7f7bbc 2014-03-25 2014-03-25 Unknown nullFlavo [place] [id number] -e [facility] 16:45:00 16:45:00 r Primary 8z1-0w36-2 l Care [id number] [facility] nn Physicians [id number] 2014-03-25 2014-03-25 Unknown nullFlavo [place] [id number] -e Memoria 16:45:00 16:45:00 r Primary 2u0-4j84-2 l Care [id number] [facility] nn Physicians [id number] 2014-03-25 2014-03-25 Unknown nullFlavo [place] [id number] -9 Memoria 15:45:00 15:45:00 r Primary 765-443f-a l Care [id number] [facility] nn Physicians [id number] 2014-03-25 2014-03-25 Unknown nullFlavo [place] [id number] -6 [facility]oria 15:45:00 15:45:00 r Primary b31-40w7-i l Care [id number]-[id number] [facility] nn Physicians 9e21ee 2014-03-25 2014-03-25 Unknown nullFlavo [place] [id number] -b [facility]oria 15:45:00 15:45:00 r Primary 207-49fc-b l Care [id number] [facility] nn Physicians [id number] 2014-03-25 2014-03-25 Unknown nullFlavo [place] [id number] -b [facility] 15:45:00 15:45:00 r Primary 207-49fc-b l Care [id number] [facility] nn Physicians [id number] 2014-03-25 2014-03-25 Unknown nullFlavo [place] [id number] -9 Memoria 15:45:00 15:45:00 r Primary 765-443f-a l Care [id number] [facility] [id number] 2014-03-25 2014-03-25 Unknown nullFlavo [place] [id number] -6 [facility]oria 15:45:00 15:45:00 r Primary x59-80x1-o l Care 7fb-[id number] [facility] 9e21ee 2014-03-25 2014-03-25 [place] [address] eClinic 10:45:00 10:45:00 Primary Primary alWork s Care Care Physician Physicians s Results Test Description Test Time Test Comments Results Result Comments Source Peritoneal Dialysis Effluent Culture 2022-06-22 08:56:31 Test Item Value Reference Range Interpretation Comme nts Result (test code = 6463-4) No growth [facility] [id number] 08:56:31 Test Item Value Reference Range Interpretation Comments CULTURE (BEAKER) (test code = 1095) No growth POC-Glucose [id number] 12:31:10 Test Item Value Reference Range Interpretation Comments POC-Glucose Meter (test 174 mg/dL 70-110 H : TE STED AT [facility] code = 1538) [address] [facility], [address]: Mail Order Biller/Techni lisseth ID = [id number] for Jesenia Petera Lab Interpretation (test Abnormal code = 67948-8) [facility] [id number] 12:31:10 Test Item Value Reference Range Interpretation Comments POC-GLUCOSE METER 174 mg/dL 70-110 H : [facility] (test code = [facility], 1538) [address]: Mail Order Biller/Techni lisseth ID = [id number] for Phan ailyn Angelica POCT-GLUCOSE [id number] 05:36:08 Test Item Value Reference Range Interpretation Comments POC-GLUCOSE METER 119 mg/dL 70-110 H : TESTED A T [facility] 6720 (BEAKER) (test code = [facility], 1538) [address]: Mail Order Biller/Techni lisseth ID = [id number] for SAYRA ALDRICH RA Body fluid cell count with jipgvsdigjwi0316-40-70 05:31:46 Test Item Value Reference Range Interpretation Comments Appearance (test code = Clear Clear 9335-1) Color (test code = Colorless Colorless, Straw 6824-7) RBCs (test code = 2 See_Comment H [Automate d message] 31471-7) The system [employer] generated this result transmit geeta reference range : <=1 /cu mm. The reference range was not used to interpret this result as normal/abnormal . TNC Count (test code = 7 See_Comment H [Aut omated message] 1442) The system [employer] generated this result transmit geeta reference range : <=5 /cu mm. The reference range was not used to interpret this result as normal/abnormal . Lining Cells/Other 0 Diff'd (test code = 1589) Adjusted WBC Count 7 See_Comment H [Automat ed message] (test code = 07950-0) The sy stem which generated this result transmit geeta reference range : <=5 /cu mm. The reference range was not used to interpret this result as normal/abnormal . Adjusted lining 0 See_Comment [Automated message] cells/Others (test code The system which = 99254-9) generated this result transmit geeta reference range : <=1 /cu mm. The reference range was not used to interpret this result as normal/abnormal . % Segs (test code = 29 % 92984-2) % Lymphs (test code = 17 % 54057-5) % Monos (test code = 52 % 84307-2) % Eos (test code = 2 % 13301-0) % Baso (test code = 0 % 23736-8) Container Body Fluid EDTA Tube (test code = 2873) Lab Interpretation Abnormal (test code = 74964-0) [facility] WITH [id number] 05:31:46 Test Item Value Reference Range Interpretation Comments APPEARANCE FLUID (BEAKER) (test Clear Clear code = 510) COLOR FLUID (BEAKER) (test code = Colorless Colorless, Straw 511) RBC FLUID (BEAKER) (test code = 2 /cu mm <=1 H 513) TOTAL NUCLEATED CELL COUNT 7 /cu mm <=5 H (BEAKER) (test code = 1442) LINING CELLS/OTHERS DIFF'D 0 (BEAKER) (test code = 1589) ADJUSTED WBC FLUID (BEAKER) (test 7 /cu mm <=5 H code = 1691) LINING CELLS/OTHERS, CALCULATED 0 /cu mm <=1 (BEAKER) (test code = 1590) NEUTROPHILS FLUID (BEAKER) (test 29 % code = 1656) LYMPHS FLUID (BEAKER) (test code = 17 % 488) MONO/MACROPHAGE FLUID (BEAKER) 52 % (test code = 489) EOSINOPHILS FLUID (BEAKER) (test 2 % code = 491) BASO FLUID (BEAKER) (test code = 0 % 492) CONTAINER BODY FLUID (BEAKER) EDTA Tube (test code = 2873) POCT-GLUCOSE [id number] 00:25:49 Test Item Value Reference Range Interpretation Comments POC-GLUCOSE METER 187 mg/dL 70-110 H : TESTED A T [facility] 6720 (BEAKER) (test code = [facility], 153) [address]: Mail Order Biller/Techni lisseth ID = [id number] for VALDEMAR WHIPPLE SAYRA POCT-GLUCOSE [id number] 17:40:18 Test Item Value Reference Range Interpretation Comments POC-GLUCOSE METER 95 mg/dL 70-110 : TESTED A T [facility] 6720 (BEAKER) (test code = [facility], 1538) [address]: Mail Order Biller/Techni lisseth ID = [id number] for GIO JONES FITO POCT-GLUCOSE [id number] 16:54:35 Test Item Value Reference Range Interpretation Comments POC-GLUCOSE METER 115 mg/dL 70-110 H : TESTED A T [facility] 6720 (BEAKER) (test code = [facility], 1538) [address]: Mail Order Biller/Techni lisseth ID = [id number] for Phan robertson Angelica POCT-GLUCOSE [id number] 12:30:23 Test Item Value Reference Range Interpretation Comments POC-GLUCOSE METER 166 mg/dL 70-110 H : TESTED A T [facility] 6720 (BEAKER) (test code [facility], = 1538) [address]: Mail Order Biller/Techni lisseth ID = [id number] for Nickolas (con tract), Judith POCT-GLUCOSE [id number] 12:13:20 Test Item Value Reference Range Interpretation Comments POC-GLUCOSE METER 181 mg/dL 70-110 H : TESTED A T [facility] 6720 ([facility]) (test code = [facility], 153) [address]: Mail Order Biller/Techni lisseth ID = [id number] for FITO OLIVA POCT-GLUCOSE [id number] 06:51:56 Test Item Value Reference Range Interpretation Comments POC-GLUCOSE METER 142 mg/dL 70-110 H : TESTED A T [facility] 6720 ([facility]) (test code = [facility], 1537) [address]: Mail Order Biller/Techni lisseth ID = [id number] for Susi Del Cid POCT-GLUCOSE [id number] 00:01:41 Test Item Value Reference Range Interpretation Comments POC-GLUCOSE METER 242 mg/dL 70-110 H : TESTED A T [facility] 6720 ([facility]) (test code = [facility], 1537) [address]: Mail Order Biller/Techni lisseth ID = [id number] for SAYRA ALDRICH RA POCT-GLUCOSE [id number] 18:31:20 Test Item Value Reference Range Interpretation Comments POC-GLUCOSE METER 193 mg/dL 70-110 H : Notified RN/MD: ([facility]) (test code = TESTED AT [facility] 6720 1537) [facility], [address]: Mail Order Biller/Techni lisseth ID = [id number] for CRIS DAVID H. pylori antigen, [id number] 14:34:11 Test Item Value Reference Range Interpretation Comments H. pylori NOT DETECTED NOT DETECTED Antimicrobials, Antigen (test proton pump code = 5833075) inhibitors, and bismuth prepara tions inhibit H.pylor i and ingestion up to two weeks prior to testing may cau se falsenegative results. If clinically fan cated the test should be repeated on ane w specimen obtain ed two weeks after discontinuing treatment. BETH (test code Performing Lab EZ = BETH) [facility] [address] [address] [address] Katarina Livingston MD, PhD, LUZMARIA [facility] [id number] 12:28:20 Test Item Value Reference Range Interpretation Comments POC-GLUCOSE METER 160 mg/dL 70-110 H : TESTED A T [facility] 6720 ([facility]) (test code = [facility], 1538) [address]: Mail Order Biller/Techni lisseth ID = [id number] for Ag uilar, Bee POCT-GLUCOSE [id number] 08:05:55 Test Item Value Reference Range Interpretation Comments POC-GLUCOSE METER 207 mg/dL 70-110 H : [facility] (test code [facility], = 1538) [address]: Mail Order Biller/Techni lisseth ID = [id number] for Salo (contract)Jana onladonna POCT-GLUCOSE [id number] 07:32:01 Test Item Value Reference Range Interpretation Comments POC-GLUCOSE METER 202 mg/dL 70-110 H : [facility]) (test code = [facility], 153) [address]: Mail Order Biller/Techni lisseth ID = [id number] for Aw a, Godswill POCT-GLUCOSE [id number] 21:49:02 Test Item Value Reference Range Interpretation Comments POC-GLUCOSE METER 162 mg/dL 70-110 H : [facility]) (test code = [facility], 1538) [address]: Mail Order Biller/Techni lisseth ID = [id number] for SAYRA ALDRICH RA POCT-GLUCOSE [id number] 18:44:52 Test Item Value Reference Range Interpretation Comments POC-GLUCOSE METER 122 mg/dL 70-110 H : Notified RN/MD: ([facility]) (test code = TESTED AT [facility] 6720 1538) [facility], [address]: Mail Order Biller/Techni lisseth ID = [id number] for AN CRIS DILLON PERITONEAL DIALYSIS EFFLUENT [id number] 17:22:51 Test Item Value Reference Range Interpretation Comments CULTURE (BEAKER) (test code = 1095) No growth BASIC METABOLIC [id number] 13:45:40 Test Item Value Reference Range Interpretation Comments SODIUM (BEAKER) 131 meq/L 136-145 L (test code = 381) POTASSIUM 4.6 meq/L 3.5-5.1 (BEAKER) (test code = 379) CHLORIDE (BEAKER) 100 meq/L 98-107 (test code = 382) CO2 (BEAKER) 20 meq/L 22-29 L (test code = 355) BLOOD UREA 37 mg/dL 7-21 H NITROGEN (BEAKER) (test code = 354) CREATININE 5.48 mg/dL 0.57-1.25 H (BEAKER) (test code = 358) GLUCOSE RANDOM 123 mg/dL 70-105 H (BEAKER) (test code = 652) CALCIUM (BEAKER) 7.5 mg/dL 8.4-10.2 L (test code = 697) EGFR (BEAKER) 7 Interpretatio n of eGFR (test code = mL/min/1.73 values Stage De scription 1092) sq m Result G1 Iris l or high >=90 G2 Mildly decreased 60-89 G3a Mild ly to moderately 45-5 9 G3b Moderately to [...] not appl icable for dialysis patien ts Mail Order Biller ID - ADMINUrinalysis w/Microscopic + Reflex to [id number] 13:00:22 Test Item Value Reference Range Interpretation Comments Color, UA (test code Yellow = 5778-6) Clarity, UA (test Cloudy code = 5767-9) Specific Amo, UA 1.014 1.001-1.035 (test code = 5811-5) pH, UA (test code = 7.5 5.0-8.0 5803-2) Protein, UA (test 300 mg/dL Negative A code = 94098-5) Glucose, UA (test 100 mg/dL Negative A code = 365) Ketones, UA (test Negative Negative code = 2514-8) Bilirubin, UA (test Negative Negative code = 21023-2) Blood, UA (test code Moderate Negative A = 22434-1) Nitrite, UA (test Negative Negative code = 5802-4) Leukocytes, UA (test Large Negative A code = 5799-2) Urobilinogen, UA 0.2 0.2-1.0 (test code = 88055-6) RBC, UA (test code = See_Comment [Autom ated 35952-8) message] The system which generated this result transmit geeta reference range : /HPF. The reference range was not used to interpret this result as normal/abnormal . WBC, UA (test code = See_Comment [Autom ated 5821-4) message] The system which generated this result transmit geeta reference range : /HPF. The reference range was not used to interpret this result as normal/abnormal . Bacteria, UA (test Many code = 56467-6) Specimen Source (test code = 2795) BETH (test code = BETH) Mail Order Biller ID - [auto]Mail Order Biller ID - tech Lab Interpretation Abnormal (test code = 13791-5) [facility] URINE [id number] 13:00:22 Test Item Value Reference Range Interpretation Comments COLOR (BEAKER) (test code = 470) Yellow CLARITY (BEAKER) (test code = 469) Cloudy SPECIFIC GRAVITY UA (BEAKER) (test 1.014 1.001-1.035 code = 468) PH UA (BEAKER) (test code = 467) 7.5 5.0-8.0 PROTEIN UA (BEAKER) (test code = 300 mg/dL Negative A 464) GLUCOSE UA (BEAKER) (test code = 100 mg/dL Negative A 365) KETONES UA (BEAKER) (test code = Negative Negative 371) BILIRUBIN UA (BEAKER) (test code = Negative Negative 462) BLOOD UA (BEAKER) (test code = 461) Moderate Negative A NITRITE UA (BEAKER) (test code = Negative Negative 465) LEUKOCYTE ESTERASE UA (BEAKER) Large Negative A (test code = 466) UROBILINOGEN UA (BEAKER) (test code 0.2 0.2-1.0 = 463) RBC UA (BEAKER) (test code = 519) > /HPF WBC UA (BEAKER) (test code = 520) > /HPF BACTERIA (BEAKER) (test code = 517) Many SOURCE(BEAKER) (test code = 2795) Mail Order Biller ID - [auto]Mail Order Biller ID - techPOCT-GLUCOSE [id number] 12:52:24 Test Item Value Reference Range Interpretation Comments POC-GLUCOSE METER 135 mg/dL 70-110 H : Notified RN/MD: (BEAKER) (test code = TESTED AT [facility] 4480 3548) [facility], [address]: Mail Order Biller/Techni lisseth ID = [id number] for CRIS DAVID POCT-GLUCOSE [id number] 06:28:32 Test Item Value Reference Range Interpretation Comments POC-GLUCOSE METER 227 mg/dL 70-110 H : [facility] (test code = [facility], [facility]) [address]: Mail Order Biller/Techni lisseth ID = [id number] for Bernadette, WIL POCT-GLUCOSE [id number] 00:49:46 Test Item Value Reference Range Interpretation Comments POC-GLUCOSE METER 193 mg/dL 70-110 H : [facility]) (test code = [facility], [facility]) [address]: Mail Order Biller/Techni lisseth ID = [id number] for Yesica-SUN, WIL POCT-GLUCOSE [id number] 18:18:55 Test Item Value Reference Range Interpretation Comments POC-GLUCOSE METER 140 mg/dL 70-110 H : [facility]) (test code = [facility], [facility]) [address]: Mail Order Biller/Techni lisseth ID = [id number] for FITO OLIVA POCT-GLUCOSE [id number] 12:02:19 Test Item Value Reference Range Interpretation Comments POC-GLUCOSE METER 140 mg/dL 70-110 H : Notified RN/MD: ([facility]) (test code = TESTED AT [place] [address]) [facility], [address]: Mail Order Biller/Techni lisseth ID = [id number] for CRIS DAVID POCT-GLUCOSE [id number] 06:16:53 Test Item Value Reference Range Interpretation Comments POC-GLUCOSE METER 94 mg/dL 70-110 : [facility] (test code = [facility], [facility]) [address]: Mail Order Biller/Techni lisseth ID = [id number] for Lizziecarmen Shayy wilkerson POCT-GLUCOSE [id number] 02:22:48 Test Item Value Reference Range Interpretation Comments POC-GLUCOSE METER 189 mg/dL 70-110 H : [facility]) (test code = [facility], [facility]) [address]: Mail Order Biller/Techni lisseth ID = [id number] for Shayy Davison POCT-GLUCOSE [id number] 17:53:21 Test Item Value Reference Range Interpretation Comments POC-GLUCOSE METER 140 mg/dL 70-110 H : TESTED A T [facility] 6720 (BEAKER) (test code = [facility], 153) [address]: Mail Order Biller/Techni lisseth ID = [id number] for Priscilla Cabral POCT-GLUCOSE [id number] 11:35:34 Test Item Value Reference Range Interpretation Comments POC-GLUCOSE METER 202 mg/dL 70-110 H : TESTED A T [facility] 6720 (BEAKER) (test code = [facility], 153) [address]: Mail Order Biller/Techni lisseth ID = [id number] for Rose Raza POCT-GLUCOSE [id number] 07:02:15 Test Item Value Reference Range Interpretation Comments POC-GLUCOSE METER 186 mg/dL 70-110 H : TESTED A T [facility] 6720 (BEAKER) (test code = [facility], [facility]) [address]: Mail Order Biller/Techni lisseth ID = [id number] for ARYA OROZCO POCT-GLUCOSE [id number] 02:08:36 Test Item Value Reference Range Interpretation Comments POC-GLUCOSE METER 290 mg/dL 70-110 H : TESTED A T [facility] 6720 (BEAKER) (test code = [facility], 153) [address]: Mail Order Biller/Techni lisseth ID = [id number] for MARILU DON LOPEZNIFER POCT-GLUCOSE [id number] 01:53:30 Test Item Value Reference Range Interpretation Comments POC-GLUCOSE METER 307 mg/dL 70-110 H : TESTED A T [facility] 6720 (BEAKER) (test code = [facility], 153) [address]: Mail Order Biller/Techni lisseth ID = [id number] for MARILU LOPEZ RAMY BODY FLUID CELL COUNT WITH [id number] 21:47:07 Test Item Value Reference Range Interpretation Comments APPEARANCE FLUID (BEAKER) (test Clear Clear code = 510) COLOR FLUID (BEAKER) (test code = Colorless Colorless, Straw 511) RBC FLUID (BEAKER) (test code = 9 /cu mm <=1 H 513) TOTAL NUCLEATED CELL COUNT 146 /cu mm <=5 H (BEAKER) (test code = 1442) LINING CELLS/OTHERS DIFF'D 0 (BEAKER) (test code = 1589) ADJUSTED WBC FLUID (BEAKER) (test 146 /cu mm <=5 H code = 1691) LINING CELLS/OTHERS, CALCULATED 0 /cu mm <=1 (BEAKER) (test code = 1590) NEUTROPHILS FLUID (BEAKER) (test 40 % code = 1656) LYMPHS FLUID (BEAKER) (test code 11 % = 488) MONO/MACROPHAGE FLUID (BEAKER) 49 % (test code = 489) EOSINOPHILS FLUID (BEAKER) (test 0 % code = 491) BASO FLUID (BEAKER) (test code = 0 % 492) CONTAINER BODY FLUID (BEAKER) EDTA Tube (test code = 2873) POCT-GLUCOSE [id number] 17:55:16 Test Item Value Reference Range Interpretation Comments POC-GLUCOSE METER 157 mg/dL 70-110 H : TESTED A T [facility] 6720 (BEAKER) (test code = [facility], 1538) [address]: Mail Order Biller/Techni lisseth ID = [id number] for FITO OLIVA CBC W/PLT COUNT & AUTO [id number] 17:35:02 Test Item Value Reference Range Interpretation Comments WHITE BLOOD CELL COUNT 6.0 K/ L 3.5-10.5 (BEAKER) (test code = 775) RED BLOOD CELL COUNT 2.48 M/ L 3.93-5.22 L (BEAKER) (test code = 761) HEMOGLOBIN (BEAKER) 7.2 GM/DL 11.2-15.7 L (test code = 410) HEMATOCRIT (BEAKER) 22.4 % 34.1-44.9 L (test code = 411) MEAN CORPUSCULAR 90 fL 79-95 Discordant with VOLUME (BEAKER) (test previo us result. code = 753) Clinical review needed MEAN CORPUSCULAR 29.0 pg 25.6-32.2 HEMOGLOBIN (BEAKER) (test code = 751) MEAN CORPUSCULAR 32.1 GM/DL 32.2-35.5 L HEMOGLOBIN CONC (BEAKER) (test code = 752) RED CELL DISTRIBUTION 18.8 % 11.7-14.4 H WIDTH (BEAKER) (test code = 412) PLATELET COUNT 138 K/CU MM 150-450 L (BEAKER) (test code = 756) MEAN PLATELET VOLUME 8.7 fL 9.4-12.3 L (BEAKER) (test code = 754) NUCLEATED RED BLOOD 0 /100 WBC 0-0 CELLS (BEAKER) (test code = 413) NEUTROPHILS RELATIVE 75 % PERCENT (BEAKER) (test code = 429) LYMPHOCYTES RELATIVE 14 % PERCENT (BEAKER) (test code = 430) MONOCYTES RELATIVE 8 % PERCENT (BEAKER) (test code = 431) EOSINOPHILS RELATIVE 2 % PERCENT (BEAKER) (test code = 432) BASOPHILS RELATIVE 0 % PERCENT (BEAKER) (test code = 437) NEUTROPHILS ABSOLUTE 4.53 K/ L 1.56-6.13 COUNT (BEAKER) (test code = 670) LYMPHOCYTES ABSOLUTE 0.86 K/ L 1.18-3.74 L COUNT (BEAKER) (test code = 414) MONOCYTES ABSOLUTE 0.45 K/ L 0.24-0.36 H COUNT (BEAKER) (test code = 415) EOSINOPHILS ABSOLUTE 0.11 K/ L 0.04-0.36 COUNT (BEAKER) (test code = 416) BASOPHILS ABSOLUTE 0.02 K/ L 0.01-0.08 COUNT (BEAKER) (test code = 417) IMMATURE 0.70 % 0.00-1.00 GRANULOCYTES-RELATIVE PERCENT (BEAKER) (test code = 2801) BASIC METABOLIC [id number] 12:48:05 Test Item Value Reference Range Interpretation Comments SODIUM (BEAKER) 133 meq/L 136-145 L (test code = 381) POTASSIUM 4.7 meq/L 3.5-5.1 (BEAKER) (test code = 379) CHLORIDE (BEAKER) 101 meq/L 98-107 (test code = 382) CO2 (BEAKER) 22 meq/L 22-29 (test code = 355) BLOOD UREA 40 mg/dL 7-21 H NITROGEN (BEAKER) (test code = 354) CREATININE 6.81 mg/dL 0.57-1.25 H (BEAKER) (test code = 358) GLUCOSE RANDOM 168 mg/dL 70-105 H (BEAKER) (test code = 652) CALCIUM (BEAKER) 7.6 mg/dL 8.4-10.2 L (test code = 697) [...] not appl icable for dialysis patien ts Mail Order Biller ID - MARCOPOCT-GLUCOSE [id number] 12:47:24 Test Item Value Reference Range Interpretation Comments POC-GLUCOSE METER 171 mg/dL 70-110 H : TESTED A T [facility] ([employer]) (test code = [facility], [facility]) [id number]: Mail Order Biller/Techni lisseth ID = [id number] for FITO OLIVA POCT-GLUCOSE [id number] 06:15:37 Test Item Value Reference Range Interpretation Comments POC-GLUCOSE METER 182 mg/dL 70-110 H : TESTED A T [facility] ([employer]) (test code = [facility], [facility]) [id number]: Mail Order Biller/Techni lisseth ID = [id number] for ARYA OROZCO POCT-GLUCOSE [id number] 00:52:20 Test Item Value Reference Range Interpretation Comments POC-GLUCOSE METER 138 mg/dL 70-110 H : TESTED A T [facility] (BEAKER) (test code = [facility], 1538) [id number]: Mail Order Biller/Techni lisseth ID = [id number] for Jenni Shelton POCT-GLUCOSE [id number] 00:26:37 Test Item Value Reference Range Interpretation Comments POC-GLUCOSE METER 139 mg/dL 70-110 H : TESTED A T [facility] (BEAKER) (test code = [facility], 153) [id number]: Mail Order Biller/Techni lisseth ID = [id number] for Ts ada, Shayy POCT-GLUCOSE [id number] 18:24:59 Test Item Value Reference Range Interpretation Comments POC-GLUCOSE METER 189 mg/dL 70-110 H : TESTED A T [facility] 6720 (GONZALES) (test code = DEION Calderón [place], 1538) [address]: Mail Order Biller/Techni lisseth ID = [id number] for AN CRIS DILLON BASIC METABOLIC [id number] 13:06:34 Test Item Value Reference Range Interpretation Comments SODIUM (BEAKER) 134 meq/L 136-145 L (test code = 381) POTASSIUM 4.1 meq/L 3.5-5.1 Specimen slight ly (BEAKER) (test hemolyzed code = 379) CHLORIDE (BEAKER) 102 meq/L 98-107 (test code = 382) CO2 (BEAKER) 22 meq/L 22-29 (test code = 355) BLOOD UREA 29 mg/dL 7-21 H NITROGEN (BEAKER) (test code = 354) CREATININE 5.84 mg/dL 0.57-1.25 H Specimen slight ly (BEAKER) (test hemolyzed code = 358) GLUCOSE RANDOM 178 mg/dL 70-105 H (BEAKER) (test code = 652) CALCIUM (BEAKER) 7.5 mg/dL 8.4-10.2 L (test code = 697) EGFR (BEAKER) 7 Interpretatio n of eGFR (test code = [...] not appl icable for dialysis patien ts Mail Order Biller ID - MARCOPOCT-GLUCOSE [id number] 12:41:42 Test Item Value Reference Range Interpretation Comments POC-GLUCOSE METER 178 mg/dL 70-110 H : Notified RN/MD: (GONZALES) (test code = TESTED AT [facility] 6720 1538) [facility], [address]: Mail Order Biller/Techni lisseth ID = [id number] for AN CRIS DILLON RAD, ABDOMEN/KUB, 1 VIEW [id number] 12:22:00Reason for exam:->stool burden [facility] : 1940 Sex: FFINALREPORT Exam: RAD, ABDOMEN/KUB, 1 VIEW AP Indication: Stool burden Comparison: CT abdomen and pelvis 05/27/2022. Abdominal radiographs 05/30/2022. IMPRESSION:Mild to moderate gaseous distention of the stomach. Nonobstructive bowel gas pattern. The majority of small bowel is displaced to the right side of the abdomen, similar to prior examinations. No radiographically significant colonic stool burden. No evidence of free intraperitoneal air. No evidence of abnormal calcification. No acute bony abnormality. Partially visualized AICD leads and median sternotomy wires. Lung bases are clear. Signed: Mateo Mata MDReport Verified Date/Time: 06/13/2022 12:22:37 CBC W/PLT COUNT & AUTO DIFFERENTIAL 2022-06-13 06:26:53 Test Item Value Reference Range Interpretation Comments WHITE BLOOD CELL COUNT (BEAKER) 5.1 K/ L 3.5-10.5 (test code = 775) RED BLOOD CELL COUNT (BEAKER) 2.55 M/ L 3.93-5.22 L (test code = 761) HEMOGLOBIN (BEAKER) (test code = 7.2 GM/DL 11.2-15.7 L 410) HEMATOCRIT (BEAKER) (test code = 22.0 % 34.1-44.9 L 411) MEAN CORPUSCULAR VOLUME (BEAKER) 86 fL 79-95 (test code = 753) MEAN CORPUSCULAR HEMOGLOBIN 28.2 pg 25.6-32.2 (BEAKER) (test code = 751) MEAN CORPUSCULAR HEMOGLOBIN CONC 32.7 GM/DL 32.2-35.5 (BEAKER) (test code = 752) RED CELL DISTRIBUTION WIDTH 18.0 % 11.7-14.4 H (BEAKER) (test code = 412) PLATELET COUNT (BEAKER) (test 105 K/CU MM 150-450 L code = 756) MEAN PLATELET VOLUME (BEAKER) 8.9 fL 9.4-12.3 L (test code = 754) NUCLEATED RED BLOOD CELLS 0 /100 WBC 0-0 (BEAKER) (test code = 413) NEUTROPHILS RELATIVE PERCENT 72 % (BEAKER) (test code = 429) LYMPHOCYTES RELATIVE PERCENT 17 % (BEAKER) (test code = 430) MONOCYTES RELATIVE PERCENT 8 % (BEAKER) (test code = 431) EOSINOPHILS RELATIVE PERCENT 2 % (BEAKER) (test code = 432) BASOPHILS RELATIVE PERCENT 0 % (BEAKER) (test code = 437) NEUTROPHILS ABSOLUTE COUNT 3.65 K/ L 1.56-6.13 (BEAKER) (test code = 670) LYMPHOCYTES ABSOLUTE COUNT 0.85 K/ L 1.18-3.74 L (BEAKER) (test code = 414) MONOCYTES ABSOLUTE COUNT (BEAKER) 0.42 K/ L 0.24-0.36 H (test code = 415) EOSINOPHILS ABSOLUTE COUNT 0.09 K/ L 0.04-0.36 (BEAKER) (test code = 416) BASOPHILS ABSOLUTE COUNT (BEAKER) 0.02 K/ L 0.01-0.08 (test code = 417) IMMATURE GRANULOCYTES-RELATIVE 0.60 % 0.00-1.00 PERCENT (BEAKER) (test code = 2801) POCT-GLUCOSE [id number] 06:10:57 Test Item Value Reference Range Interpretation Comments POC-GLUCOSE METER 167 mg/dL 70-110 H : TESTED A T [facility] 6720 (BEAKER) (test code = DEION AM[place], 1538) [address]: Mail Order Biller/Techni lisseth ID = [id number] for Ts Shayy duong POCT-GLUCOSE [id number] 00:06:45 Test Item Value Reference Range Interpretation Comments POC-GLUCOSE METER 229 mg/dL 70-110 H : TESTED A T [facility] 6720 (BEAKER) (test code = DEION Calderón [place], 1538) [address]: Mail Order Biller/Techni lisseth ID = [id number] for Shayy Davison POCT-GLUCOSE [id number] 18:56:51 Test Item Value Reference Range Interpretation Comments POC-GLUCOSE METER 103 mg/dL 70-110 : TESTED A T [facility] 6720 (BEAKER) (test code = DEION Calderón [place], 1538) [address]: Mail Order Biller/Techni lisseth ID = [id number] for AN CRIS DILLON BASIC METABOLIC [id number] 17:22:46 Test Item Value Reference Range Interpretation Comments SODIUM (BEAKER) 133 meq/L 136-145 L (test code = 381) POTASSIUM 4.5 meq/L 3.5-5.1 Specimen slight ly (BEAKER) (test hemolyzed code = 379) CHLORIDE (BEAKER) 100 meq/L 98-107 (test code = 382) CO2 (BEAKER) 25 meq/L 22-29 (test code = 355) BLOOD UREA 29 mg/dL 7-21 H NITROGEN (BEAKER) (test code = 354) CREATININE 6.58 mg/dL 0.57-1.25 H Specimen slight ly (BEAKER) (test hemolyzed code = 358) GLUCOSE RANDOM 140 mg/dL 70-105 H (BEAKER) (test code = 652) CALCIUM (BEAKER) 7.9 mg/dL 8.4-10.2 L (test code = 697) [...] not appl icable for dialysis patien ts Mail Order Biller ID - [id number] 17:16:00 Test Item Value Reference Range Interpretation Comments PREALBUMIN (BEAKER) 16 mg/dL 14-45 Specimen slightly (test code = 586) hemolyzed Mail Order Biller ID - MMPOCT-GLUCOSE [id number] 12:39:31 Test Item Value Reference Range Interpretation Comments POC-GLUCOSE METER 158 mg/dL 70-110 H : Notified RN/MD: ([facility]) (test code = TESTED AT [place] [address] 1538) [facility], [address]: Mail Order Biller/Techni lisseth ID = [id number] for CRIS DAVID POCT-GLUCOSE [id number] 06:14:55 Test Item Value Reference Range Interpretation Comments POC-GLUCOSE METER 123 mg/dL 70-110 H : TESTED Sharmaine Britt [place] [address] ([facility]) (test code = DEION Calderón [facility], 1538) [address]: Mail Order Biller/Techni lisseth ID = [id number] for ROSI ALCANTAR CBC W/PLT COUNT & AUTO [id number] 06:06:41 Test Item Value Reference Range Interpretation Comments WHITE BLOOD CELL COUNT (BEAKER) 5.7 K/ L 3.5-10.5 (test code = 775) RED BLOOD CELL COUNT (BEAKER) 2.82 M/ L 3.93-5.22 L (test code = 761) HEMOGLOBIN (BEAKER) (test code = 7.9 GM/DL 11.2-15.7 L 410) HEMATOCRIT (BEAKER) (test code = 24.4 % 34.1-44.9 L 411) MEAN CORPUSCULAR VOLUME (BEAKER) 87 fL 79-95 (test code = 753) MEAN CORPUSCULAR HEMOGLOBIN 28.0 pg 25.6-32.2 (BEAKER) (test code = 751) MEAN CORPUSCULAR HEMOGLOBIN CONC 32.4 GM/DL 32.2-35.5 (BEAKER) (test code = 752) RED CELL DISTRIBUTION WIDTH 17.1 % 11.7-14.4 H (BEAKER) (test code = 412) PLATELET COUNT (BEAKER) (test 111 K/CU MM 150-450 L code = 756) MEAN PLATELET VOLUME (BEAKER) 9.0 fL 9.4-12.3 L (test code = 754) NUCLEATED RED BLOOD CELLS 0 /100 WBC 0-0 (BEAKER) (test code = 413) NEUTROPHILS RELATIVE PERCENT 73 % (BEAKER) (test code = 429) LYMPHOCYTES RELATIVE PERCENT 17 % (BEAKER) (test code = 430) MONOCYTES RELATIVE PERCENT 8 % (BEAKER) (test code = 431) EOSINOPHILS RELATIVE PERCENT 1 % (BEAKER) (test code = 432) BASOPHILS RELATIVE PERCENT 1 % (BEAKER) (test code = 437) NEUTROPHILS ABSOLUTE COUNT 4.18 K/ L 1.56-6.13 (BEAKER) (test code = 670) LYMPHOCYTES ABSOLUTE COUNT 0.95 K/ L 1.18-3.74 L (BEAKER) (test code = 414) MONOCYTES ABSOLUTE COUNT (BEAKER) 0.46 K/ L 0.24-0.36 H (test code = 415) EOSINOPHILS ABSOLUTE COUNT 0.06 K/ L 0.04-0.36 (BEAKER) (test code = 416) BASOPHILS ABSOLUTE COUNT (BEAKER) 0.03 K/ L 0.01-0.08 (test code = 417) IMMATURE GRANULOCYTES-RELATIVE 0.90 % 0.00-1.00 PERCENT (BEAKER) (test code = 2801) POCT-GLUCOSE [id number] 23:55:23 Test Item Value Reference Range Interpretation Comments POC-GLUCOSE METER 187 mg/dL 70-110 H : TESTED A T [facility] 6720 (BEAKER) (test code = [facility], 153) [address]: Mail Order Biller/Techni lisseth ID = [id number] for ROSI ALCANTAR POCT-GLUCOSE [id number] 17:39:05 Test Item Value Reference Range Interpretation Comments POC-GLUCOSE METER 132 mg/dL 70-110 H : TESTED A T [facility] 6720 (BEAKER) (test code = [facility], 1538) [address]: Mail Order Biller/Techni lisseth ID = [id number] for Ca juliaero, Priscilla POCT-GLUCOSE [id number] 11:30:52 Test Item Value Reference Range Interpretation Comments POC-GLUCOSE METER 141 mg/dL 70-110 H : TESTED A T [facility] 6720 (BEAKER) (test code = [facility], 1538) [address]: Mail Order Biller/Techni lisseth ID = [id number] for Ca tallero, Priscilla BASIC METABOLIC [id number] 07:47:29 Test Item Value Reference Range Interpretation Comments SODIUM (BEAKER) 134 meq/L 136-145 L (test code = 381) POTASSIUM 3.7 meq/L 3.5-5.1 (BEAKER) (test code = 379) CHLORIDE (BEAKER) 100 meq/L 98-107 (test code = 382) CO2 (BEAKER) 23 meq/L 22-29 (test code = 355) BLOOD UREA 23 mg/dL 7-21 H NITROGEN (BEAKER) (test code = 354) CREATININE 6.18 mg/dL 0.57-1.25 H (BEAKER) (test code = 358) GLUCOSE RANDOM 174 mg/dL 70-105 H (BEAKER) (test code = 652) CALCIUM (BEAKER) 8.5 mg/dL 8.4-10.2 (test code = 697) EGFR (BEAKER) 6 [...] not appl icable for dialysis patien ts Mail Order Biller ID - MARIOPERIPHERAL BLOOD SMEAR - HOLD [id number] 07:24:38 Test Item Value Reference Range Interpretation Comments PERIPHERAL SMEAR SAVE (BEAKER) (test saved code = 1815) [id number] 06:44:50 Test Item Value Reference Range Interpretation Comments PROTIME (BEAKER) (test code = 12.8 seconds 11.9-14.2 759) INR (BEAKER) (test code = 370) 1.02 <=5.90 PARTIAL THROMBOPLASTIN TIME 20.1 seconds 22.5-36.0 L (BEAKER) (test code = 760) RECOMMENDED COUMADIN/WARFARIN INR THERAPY RANGESSTANDARD DOSE: 2.0 - 3.0 Includes: PROPHYLAXIS for venous thrombosis, systemic embolization; TREATMENT for venous thrombosis and/or pulmonary embolus.HIGH RISK: Target INR is 2.5-3.5 for patients with mechanical heart valves.POCT-GLUCOSE [id number] 06:19:08 Test Item Value Reference Range Interpretation Comments POC-GLUCOSE METER 155 mg/dL 70-110 H : TESTED A T [facility] 6720 (BEAKER) (test code = [place], 1538) [address]: Mail Order Biller/Techni lisseth ID = [id number] for ROSI ALCANTAR [id number] 04:27:00 Test Item Value Reference Range Interpretation Comments D-DIMER QUANTITATIVE (BEAKER) 0.70 MG/L FEU <0.50 H (test code = 671) Intended Use: The D-Dimer Assay can be used to aid in the diagnosis of Deep Vein Thrombosis (DVT) and Pulmonary Embolism Disease (PED).In patients with low pre- test probability, various studies concerning STA Liatest D-dimer test have reported that with a cutoff value of 0.50 MG/L FEU, the Negative Predictive Value (NPV) regarding the exclusion of thrombosis is within 95-100% range. [id number] 04:24:17 Test Item Value Reference Range Interpretation Comments FIBRINOGEN LEVEL (BEAKER) (test 494 mg/dl 225-434 H code = 658) PROTHROMBIN [id number] 04:23:56 Test Item Value Reference Range Interpretation Comments PROTIME (BEAKER) (test code = 12.7 seconds 11.9-14.2 759) INR (BEAKER) (test code = 370) 0.97 <=5.90 RECOMMENDED COUMADIN/WARFARIN INR THERAPY RANGESSTANDARD DOSE: 2.0 - 3.0 Includes: PROPHYLAXIS for venous thrombosis, systemic embolization; TREATMENT for venous thrombosis and/or pulmonary embolus.HIGH RISK: Target INR is 2.5-3.5 for patients with mechanical heart valves.LACTATE DEHYDROGENASE (LDH)2022-06-11 04:21:54 Test Item Value Reference Range Interpretation Comments LACTATE DEHYDROGENASE (BEAKER) (test 269 U/L 125-220 H code = 635) Mail Order Biller ID - MARIOCBC W/PLT COUNT & AUTO [id number] 04:10:13 Test Item Value Reference Range Interpretation Comments WHITE BLOOD CELL COUNT (BEAKER) 4.9 K/ L 3.5-10.5 (test code = 775) RED BLOOD CELL COUNT (BEAKER) 2.93 M/ L 3.93-5.22 L (test code = 761) HEMOGLOBIN (BEAKER) (test code = 8.2 GM/DL 11.2-15.7 L 410) HEMATOCRIT (BEAKER) (test code = 25.8 % 34.1-44.9 L 411) MEAN CORPUSCULAR VOLUME (BEAKER) 88 fL 79-95 (test code = 753) MEAN CORPUSCULAR HEMOGLOBIN 28.0 pg 25.6-32.2 (BEAKER) (test code = 751) MEAN CORPUSCULAR HEMOGLOBIN CONC 31.8 GM/DL 32.2-35.5 L (BEAKER) (test code = 752) RED CELL DISTRIBUTION WIDTH 16.5 % 11.7-14.4 H (BEAKER) (test code = 412) PLATELET COUNT (BEAKER) (test code 88 K/CU MM 150-450 L = 756) MEAN PLATELET VOLUME (BEAKER) 9.4 fL 9.4-12.3 (test code = 754) NUCLEATED RED BLOOD [...] (test code = 437) NEUTROPHILS ABSOLUTE COUNT 3.60 K/ L 1.56-6.13 (BEAKER) (test code = 670) LYMPHOCYTES ABSOLUTE COUNT 0.89 K/ L 1.18-3.74 L (BEAKER) (test code = 414) MONOCYTES ABSOLUTE COUNT (BEAKER) 0.28 K/ L 0.24-0.36 (test code = 415) EOSINOPHILS ABSOLUTE COUNT 0.06 K/ L 0.04-0.36 (BEAKER) (test code = 416) BASOPHILS ABSOLUTE COUNT (BEAKER) 0.03 K/ L 0.01-0.08 (test code = 417) IMMATURE GRANULOCYTES-RELATIVE 1.20 % 0.00-1.00 H PERCENT (BEAKER) (test code = 7501) POCT-GLUCOSE [id number] 00:05:06 Test Item Value Reference Range Interpretation Comments POC-GLUCOSE METER 164 mg/dL 70-110 H : TESTED A T [facility] 6720 (BEAKER) (test code = [facility], [facility]) [address]: Mail Order Biller/Techni lisseth ID = [id number] for ROSI ALCANTAR POCT-GLUCOSE [id number] 18:15:07 Test Item Value Reference Range Interpretation Comments POC-GLUCOSE METER 96 mg/dL 70-110 : TESTED A T [facility] 6720 (BEAKER) (test code = [facility], [facility]8) [address]: Mail Order Biller/Techni lisseth ID = [id number] for GIO JONES, FITO POCT-GLUCOSE [id number] 12:08:40 Test Item Value Reference Range Interpretation Comments POC-GLUCOSE METER 100 mg/dL 70-110 : TESTED A T [facility] 6720 ([facility]) (test code = [facility], [facility]) [address]: Mail Order Biller/Techni lisseth ID = [id number] for MARILU OSEGUERAINEAp, FITO POCT-GLUCOSE [id number] 05:36:18 Test Item Value Reference Range Interpretation Comments POC-GLUCOSE METER 79 mg/dL 70-110 : TESTED A T [facility] 6720 (BEAKER) (test code = [facility], [facility]) [address]: Mail Order Biller/Techni lisseth ID = [id number] for Tsad a, Shayy POCT-GLUCOSE [id number] 00:13:42 Test Item Value Reference Range Interpretation Comments POC-GLUCOSE METER 207 mg/dL 70-110 H : TESTED A T [facility] 6720 (BEAKER) (test code = [facility], [facility]) [address]: Mail Order Biller/Techni lisseth ID = [id number] for Ts ada, Shayy POCT-GLUCOSE [id number] 17:42:07 Test Item Value Reference Range Interpretation Comments POC-GLUCOSE METER 125 mg/dL 70-110 H : TESTED A T [facility] 6720 (BEAKER) (test code = [facility], [facility]) [address]: Mail Order Biller/Techni lisseth ID = [id number] for MARILU RTINEZ, FITO POCT-GLUCOSE [id number] 12:58:15 Test Item Value Reference Range Interpretation Comments POC-GLUCOSE METER 120 mg/dL 70-110 H : TESTED A T [facility] 6720 (BEAKER) (test code = [facility], 1538) [address]: Mail Order Biller/Techni lisseth ID = [id number] for FITO OLIVA BASIC METABOLIC [id number] 11:49:24 Test Item Value Reference Range Interpretation Comments SODIUM (BEAKER) 133 meq/L 136-145 L (test code = 381) POTASSIUM 4.3 meq/L 3.5-5.1 (BEAKER) (test code = 379) CHLORIDE (BEAKER) 101 meq/L 98-107 (test code = 382) CO2 (BEAKER) 24 meq/L 22-29 (test code = 355) BLOOD UREA 23 mg/dL 7-21 H NITROGEN (BEAKER) (test code = 354) CREATININE 6.23 mg/dL 0.57-1.25 H (BEAKER) (test code = 358) GLUCOSE RANDOM 146 mg/dL 70-105 H (BEAKER) (test code = 652) CALCIUM (BEAKER) 7.8 mg/dL 8.4-10.2 L (test code = 697) [...] not appl icable for dialysis patien ts Mail Order Biller ID - YOBANY WPOCT-GLUCOSE [id number] 05:43:57 Test Item Value Reference Range Interpretation Comments POC-GLUCOSE METER 100 mg/dL 70-110 : TESTED A T [facility] 6720 (BEAKER) (test code = [facility] Carley [facility], 1538) [address]: Mail Order Biller/Techni lisseth ID = [id number] for Tutu ada, Shayy POCT-GLUCOSE [id number] 01:03:39 Test Item Value Reference Range Interpretation Comments POC-GLUCOSE METER 202 mg/dL 70-110 H : [facility] (test code = [facility], 1538) [address]: Mail Order Biller/Techni lisseth ID = [id number] for Shayy Davison POCT-GLUCOSE [id number] 18:32:21 Test Item Value Reference Range Interpretation Comments POC-GLUCOSE METER 109 mg/dL 70-110 : [facility] (BE[facility]ER[facility] (test code = [facility], 1538) [address]: Mail Order Biller/Techni lisseth ID = [id number] for CRIS DAVID POCT-GLUCOSE [id number] 14:03:53 Test Item Value Reference Range Interpretation Comments POC-GLUCOSE METER 111 mg/dL 70-110 H : Notified RN/MD: ([facility]) (test code = TESTED AT [facility] 6720 1538) [facility], [address]: Mail Order Biller/Techni lisseth ID = [id number] for AN CRIS DILLON COMPREHENSIVE METABOLIC [id number] 06:38:38 Test Item Value Reference Range Interpretation Comments TOTAL PROTEIN 4.3 gm/dL 6.0-8.3 L (BEAKER) (test code = 770) ALBUMIN (BEAKER) 2.1 g/dL 3.5-5.0 L (test code = 1145) ALKALINE 82 U/L 40-150 PHOSPHATASE (BEAKER) (test code = 346) BILIRUBIN TOTAL 0.3 mg/dL 0.2-1.2 (BEAKER) (test code = 377) SODIUM (BEAKER) 136 meq/L 136-145 (test code = 381) POTASSIUM (BEAKER) 3.4 meq/L 3.5-5.1 L (test code = 379) CHLORIDE (BEAKER) 103 meq/L 98-107 (test code = 382) CO2 (BEAKER) (test 24 meq/L 22-29 code = 355) BLOOD UREA 26 mg/dL 7-21 H NITROGEN (BEAKER) (test code = 354) CREATININE 6.38 mg/dL 0.57-1.25 H (BEAKER) (test code = 358) GLUCOSE RANDOM 107 mg/dL 70-105 H (BEAKER) (test code = 652) CALCIUM (BEAKER) 8.0 mg/dL 8.4-10.2 L (test code = 697) AST (SGOT) 12 U/L 5-34 (BEAKER) (test code = 353) ALT (SGPT) 12 U/L 6-55 (BEAKER) (test code = 347) EGFR (BEAKER) 6 Interpretatio n of eGFR [...] not appl icable for dialysis patien ts Mail Order Biller ID - [id number] 06:34:23 Test Item Value Reference Range Interpretation Comments MAGNESIUM (BEAKER) (test code = 1.5 mg/dL 1.6-2.6 L 627) Mail Order Biller ID - [id number] 06:34:23 Test Item Value Reference Range Interpretation Comments PHOSPHORUS (BEAKER) (test code = 2.4 mg/dL 2.3-4.7 604) Mail Order Biller ID - MARCOPOCT-GLUCOSE [id number] 06:22:23 Test Item Value Reference Range Interpretation Comments POC-GLUCOSE METER 102 mg/dL 70-110 : TESTED A T [facility] 6720 (BEAKER) (test code = DEION Calderón [facility], 1538) [address]: Mail Order Biller/Techni lisseth ID = [id number] for Fa tami Clovereni CBC W/PLT COUNT & AUTO [id number] 06:14:53 Test Item Value Reference Range Interpretation Comments WHITE BLOOD CELL COUNT (BEAKER) 6.1 K/ L 3.5-10.5 (test code = 775) RED BLOOD CELL COUNT (BEAKER) 2.92 M/ L 3.93-5.22 L (test code = 761) HEMOGLOBIN (BEAKER) (test code = 8.2 GM/DL 11.2-15.7 L 410) HEMATOCRIT (BEAKER) (test code = 25.5 % 34.1-44.9 L 411) MEAN CORPUSCULAR VOLUME (BEAKER) 87 fL 79-95 (test code = 753) MEAN CORPUSCULAR HEMOGLOBIN 28.1 pg 25.6-32.2 (BEAKER) (test code = 751) MEAN CORPUSCULAR HEMOGLOBIN CONC 32.2 GM/DL 32.2-35.5 (BEAKER) (test code = 752) RED CELL DISTRIBUTION WIDTH 16.5 % 11.7-14.4 H (BEAKER) (test code = 412) PLATELET COUNT (BEAKER) (test code 47 K/CU MM 150-450 L = 756) MEAN PLATELET VOLUME (BEAKER) 9.6 fL 9.4-12.3 (test code = 754) NUCLEATED RED BLOOD CELLS (BEAKER) 0 /100 WBC 0-0 (test code = 413) NEUTROPHILS RELATIVE PERCENT 73 % (BEAKER) (test code = 429) LYMPHOCYTES RELATIVE PERCENT 16 % (BEAKER) (test code = 430) MONOCYTES RELATIVE PERCENT 8 % (BEAKER) (test code = 431) EOSINOPHILS RELATIVE PERCENT 2 % (BEAKER) (test code = 432) BASOPHILS RELATIVE PERCENT 1 % (BEAKER) (test code = 437) NEUTROPHILS ABSOLUTE COUNT 4.40 K/ L 1.56-6.13 (BEAKER) (test code = 670) LYMPHOCYTES ABSOLUTE COUNT 0.99 K/ L 1.18-3.74 L (BEAKER) (test code = 414) MONOCYTES ABSOLUTE COUNT (BEAKER) 0.49 K/ L 0.24-0.36 H (test code = 415) EOSINOPHILS ABSOLUTE COUNT 0.11 K/ L 0.04-0.36 (BEAKER) (test code = 416) BASOPHILS ABSOLUTE COUNT (BEAKER) 0.03 K/ L 0.01-0.08 (test code = 417) IMMATURE GRANULOCYTES-RELATIVE 0.50 % 0.00-1.00 PERCENT (BEAKER) (test code = 2801) POCT-GLUCOSE [id number] 00:05:19 Test Item Value Reference Range Interpretation Comments POC-GLUCOSE METER 226 mg/dL 70-110 H : TESTED A T [facility] 6720 (BEAKER) (test code = [facility], 153) [address]: Mail Order Biller/Techni lisseth ID = [id number] for SAYRA ALDRICH RA POCT-GLUCOSE [id number] 18:11:07 Test Item Value Reference Range Interpretation Comments POC-GLUCOSE METER 121 mg/dL 70-110 H : Notified RN/MD: ([facility]) (test code = TESTED AT [place] [id number]) [facility], [address]: Mail Order Biller/Techni lisseth ID = [id number] for CRIS DAVID POCT-GLUCOSE [id number] 13:41:36 Test Item Value Reference Range Interpretation Comments POC-GLUCOSE METER 90 mg/dL 70-110 : [facility] ([facility]) (test code = [facility], 153) [address]: Mail Order Biller/Techni lisseth ID = [id number] for CRIS MONTIEL POCT-GLUCOSE [id number] 12:48:22 Test Item Value Reference Range Interpretation Comments POC-GLUCOSE METER 59 mg/dL 70-110 L : [facility] ([facility]) (test code = [facility], 153) [address]: Mail Order Biller/Techni lisseth ID = [id number] for CRIS MONTIEL POCT-GLUCOSE [id number] 06:05:52 Test Item Value Reference Range Interpretation Comments POC-GLUCOSE METER 94 mg/dL 70-110 : [facility] ([facility]) (test code = [facility], [facility]) [address]: Mail Order Biller/Techni lisseth ID = [id number] for WIL Fleming COMPREHENSIVE METABOLIC [id number] 05:31:26 Test Item Value Reference Range Interpretation Comments TOTAL PROTEIN 4.3 gm/dL 6.0-8.3 L ([facility]) (test code = 770) ALBUMIN (BEAKER) 2.0 g/dL 3.5-5.0 L (test code = 1145) ALKALINE 75 U/L 40-150 PHOSPHATASE (BEAKER) (test code = 346) BILIRUBIN TOTAL 0.3 mg/dL 0.2-1.2 (BEAKER) (test code = 377) SODIUM (BEAKER) 135 meq/L 136-145 L (test code = 381) POTASSIUM (BEAKER) 3.4 meq/L 3.5-5.1 L (test code = 379) CHLORIDE (BEAKER) 101 meq/L 98-107 (test code = 382) CO2 (BEAKER) (test 24 meq/L 22-29 code = 355) BLOOD UREA 29 mg/dL 7-21 H NITROGEN (BEAKER) (test code = 354) CREATININE 6.38 mg/dL 0.57-1.25 H (BEAKER) (test code = 358) GLUCOSE RANDOM 103 mg/dL 70-105 (BEAKER) (test code = 652) CALCIUM (BEAKER) 8.0 mg/dL 8.4-10.2 L (test code = 697) AST (SGOT) 12 U/L 5-34 (BEAKER) (test code = 353) ALT (SGPT) 11 U/L 6-55 (BEAKER) (test code = 347) EGFR (BEAKER) 6 Interpretatio n of eGFR [...] not appl icable for dialysis patien ts Mail Order Biller ID - YOBANY [id number] 05:27:33 Test Item Value Reference Range Interpretation Comments MAGNESIUM (BEAKER) (test code = 1.6 mg/dL 1.6-2.6 627) Mail Order Biller ID - YOBANY [id number] 05:27:33 Test Item Value Reference Range Interpretation Comments PHOSPHORUS (BEAKER) (test code = 3.0 mg/dL 2.3-4.7 604) Mail Order Biller ID - YOBANY WCBC W/PLT COUNT & AUTO [id number] 04:45:35 Test Item Value Reference Range Interpretation Comments WHITE BLOOD CELL COUNT (BEAKER) 5.2 K/ L 3.5-10.5 (test code = 775) RED BLOOD CELL COUNT (BEAKER) 3.06 M/ L 3.93-5.22 L (test code = 761) HEMOGLOBIN (BEAKER) (test code = 8.7 GM/DL 11.2-15.7 L 410) HEMATOCRIT (BEAKER) (test code = 26.6 % 34.1-44.9 L 411) MEAN CORPUSCULAR VOLUME (BEAKER) 87 fL 79-95 (test code = 753) MEAN CORPUSCULAR HEMOGLOBIN 28.4 pg 25.6-32.2 (BEAKER) (test code = 751) MEAN CORPUSCULAR HEMOGLOBIN CONC 32.7 GM/DL 32.2-35.5 (BEAKER) (test code = 752) RED CELL DISTRIBUTION WIDTH 16.6 % 11.7-14.4 H (BEAKER) (test code = 412) PLATELET COUNT (BEAKER) (test code 39 K/CU MM 150-450 L = 756) MEAN PLATELET VOLUME (BEAKER) 9.6 fL 9.4-12.3 (test code = 754) NUCLEATED RED BLOOD CELLS (BEAKER) 0 /100 WBC 0-0 (test code = 413) NEUTROPHILS RELATIVE PERCENT 69 % (BEAKER) (test code = 429) LYMPHOCYTES RELATIVE PERCENT 21 % (BEAKER) (test code = 430) MONOCYTES RELATIVE PERCENT 8 % (BEAKER) (test code = 431) EOSINOPHILS RELATIVE PERCENT 2 % (BEAKER) (test code = 432) BASOPHILS RELATIVE PERCENT 1 % (BEAKER) (test code = 437) NEUTROPHILS ABSOLUTE COUNT 3.60 K/ L 1.56-6.13 (BEAKER) (test code = 670) LYMPHOCYTES ABSOLUTE COUNT 1.08 K/ L 1.18-3.74 L (BEAKER) (test code = 414) MONOCYTES ABSOLUTE COUNT (BEAKER) 0.41 K/ L 0.24-0.36 H (test code = 415) EOSINOPHILS ABSOLUTE COUNT 0.09 K/ L 0.04-0.36 (BEAKER) (test code = 416) BASOPHILS ABSOLUTE COUNT (BEAKER) 0.03 K/ L 0.01-0.08 (test code = 417) IMMATURE GRANULOCYTES-RELATIVE 0.40 % 0.00-1.00 PERCENT (BEAKER) (test code = 2801) POCT-GLUCOSE [id number] 00:46:10 Test Item Value Reference Range Interpretation Comments POC-GLUCOSE METER 152 mg/dL 70-110 H : TESTED A T [facility] 6720 (GONZALES) (test code = [place], 1538) [id number]: Mail Order Biller/Techni lisseth ID = [id number] for Kira Cordova SARS-CoV2/RT-PCR (Asymptomatic ONLY)2022-06-06 19:02:09 Test Item Value Reference Interpretation Comments Range SARS-COV2/RT-PCR Negative Negative The SARS-Co V-2 (test code = target nucleic 31435-1) acids are not detected in thi s specimen. Negat david results do not preclude SARS-C oV-2 infection and should not be u sed as the sole bas is for patient management decisions. Nega tive results must be combined with clinical observations, patient history , and epidemiolog ical information. A false negative result may occu r if a specimen is improperly collected, transported or handled. This S ARS CoV-2 test is a rapid, real-stephanie e RT-PCR test intended for th e qualitative detection of nucleic acid fr om SARS-CoV-2 in a nasopharyngeal swab specimen [facility] from individual s suspected of COVID-19 by the ir healthcare provider. BETH (test code = This test has been BETH) authorized by FDA under an EUA for use by authorized laboratories. This test is only authorized for the duration of the declaration that circumstances exist justifying the authorization of emergency use of in vitro diagnostic tests for detection and/or diagnosis of COVID-19 under Section 564(b)(1) of the Federal Food, Drug and Cosmetic Act, 21 U.S.C. 360bbb-3(b)(1), unless the authorization is terminated or revoked sooner. Fact Sheet for Healthcare Providers: https://www.[employer]/Documents/Xp ert%20Xpress%20SAR S%20CoV-2/Fact%20S heets/302-4962%20S ARS-COV-2%20HEALTH CARE%20PROVIDERS%2 0FACT%20SHEET.pdf Fact Sheet for Healthcare Patients: https://www.[employer]/Documents/Xp ert%20Xpress%20SAR S%20CoV-2/Fact%20S heets/3023801%20S ARS-COV-2%20PATIEN T%20FACT%20SHEET.p df Lab Interpretation Normal (test code = 18018-6) [facility]2022-06-06 19:02:09 Test Item Value Reference Range Interpretation Comments SARS-COV2/RT-PCR Negative Negative The SARS-Co V-2 target (test code = nucleic acids a re not 8235922) detected in thi s specimen. Negative result s do not preclude SARS-C oV-2 infection and s hould not be used as the yayo e basis for patient managem ent decisions. Nega tive results must be combine d with clinical observ ations, patient history , and epidemiological information. A false negativ e result may occur if a spec imen is improperly vidya ected, transported or handled. This SARS CoV-2 test is a rapid, real-time RT-PC R test intended for th e qualitative detection of nu cleic acid from SARS-CoV-2 in a nasopharyngeal swab specimen collected from individuals suspected of CO VID-19 by their healthcar e provider. This test has been authorized by FDA under an EUA for use by authorized laboratories. This test is only authorized for the duration of the declaration that circumstances exist justifying the authorization of emergency use of in vitro diagnostic tests for detection and/or diagnosis of COVID-19 under Section 564(b)(1) of the Federal Food, Drug and Cosmetic Act, 21 U.S.C. 360bbb-3(b)(1), unless the authorization is terminated or revoked sooner. Fact Sheet for Healthcare Providers: https://www.[employer] m/Documents/Xpert%20Xpress%20SARS%20CoV-2/Fact%20Sheets/3802%30YHLO-BHM-8%20 HEALTHCARE%20PROVIDERS%20FACT%20SHEET.pdf Fact Sheet for Healthcare Patients: https://www.[employer]/Documents/Xpert%20Xp ress%20SARS%20CoV-2/Fact%20Sheets/3801%16PHMW-ZUF-0%20PATIENT%20FACT%20SHEET .pdfPOCT-GLUCOSE [id number] 17:45:25 Test Item Value Reference Range Interpretation Comments POC-GLUCOSE METER 121 mg/dL 70-110 H : TESTED A T [facility] 6720 (GONZALES) (test code = DEION Calderón [facility], 1538) [id number]: Mail Order Biller/Techni lisseth ID = [id number] for FITO OLIVA RAD, ABDOMEN/KUB, 1 VIEW [id number] 17:05:00Reason for exam:->eval PD catheterSAN DIEGO COUNTY [facility]ITALName: SIERRA REAL : 1940 Sex: FFINALREPORT RAD, ABDOMEN/KUB, 1 VIEW AP CLINICAL INDICATION: eval PD catheter COMPARISON: 05/30/22 TECHNIQUE: Single, frontal radiograph of the abdomen. FINDINGS: The bowel gas pattern isnonspecific, but nonobstructive. Moderate stool burden throughout the colon. Evaluation for free airis limited by portable supine technique. Within these limitations, no free air is identified. Signed: Jese Florence Verified Date/Time: 06/06/2022 17:05:56 POCT-GLUCOSE METER 2022-06-06 12:29:24 Test Item Value Reference Range Interpretation Comments POC-GLUCOSE METER 163 mg/dL 70-110 H : TESTED A T [facility] 6720 (GONZALES) (test code = [place], 1538) 338[address]: Mail Order Biller/Techni lisseth ID = [id number] for FITO OLIVA COMPREHENSIVE METABOLIC [id number] 06:54:57 Test Item Value Reference Range Interpretation Comments TOTAL PROTEIN 4.2 gm/dL 6.0-8.3 L Specimen sligh tly (BEAKER) (test hemolyzed code = 770) ALBUMIN (BEAKER) 1.9 g/dL 3.5-5.0 L Specimen sl ightly (test code = 1145) hemolyzed ALKALINE 81 U/L 40-150 PHOSPHATASE (BEAKER) (test code = 346) BILIRUBIN TOTAL 0.2 mg/dL 0.2-1.2 Specimen sli ghtly (BEAKER) (test hemolyzed code = 377) SODIUM (BEAKER) 134 meq/L 136-145 L (test code = 381) POTASSIUM (BEAKER) 3.5 meq/L 3.5-5.1 Specimen slightly (test code = 379) hemolyzed CHLORIDE (BEAKER) 102 meq/L 98-107 (test code = 382) CO2 (BEAKER) (test 21 meq/L 22-29 L code = 355) BLOOD UREA 29 mg/dL 7-21 H NITROGEN (BEAKER) (test code = 354) CREATININE 6.40 mg/dL 0.57-1.25 H Specimen slight ly (BEAKER) (test hemolyzed code = 358) GLUCOSE RANDOM 174 mg/dL 70-105 H (BEAKER) (test code = 652) CALCIUM (BEAKER) 7.8 mg/dL 8.4-10.2 L (test code = 697) AST (SGOT) 14 U/L 5-34 Specimen slight ly (BEAKER) (test hemolyzed code = 353) ALT (SGPT) 10 U/L 6-55 Specimen slight ly (BEAKER) (test hemolyzed code = 347) EGFR (BEAKER) 6 Interpretatio n of eGFR [...] not appl icable for dialysis patien ts Mail Order Biller ID - HUMPHREY [id number] 06:49:02 Test Item Value Reference Range Interpretation Comments PHOSPHORUS (BEAKER) 3.5 mg/dL 2.3-4.7 Specimen slightly (test code = 604) hemolyzed Mail Order Biller ID - HUMPHREY [id number] 06:49:01 Test Item Value Reference Range Interpretation Comments MAGNESIUM (BEAKER) 1.6 mg/dL 1.6-2.6 Specimen slightly (test code = 627) hemolyzed Mail Order Biller ID - HUMPHREY GCBC W/PLT COUNT & AUTO [id number] 06:32:59 Test Item Value Reference Range Interpretation Comments WHITE BLOOD CELL COUNT (BEAKER) 6.1 K/ L 3.5-10.5 (test code = 775) RED BLOOD CELL COUNT (BEAKER) 3.16 M/ L 3.93-5.22 L (test code = 761) HEMOGLOBIN (BEAKER) (test code = 9.2 GM/DL 11.2-15.7 L 410) HEMATOCRIT (BEAKER) (test code = 27.4 % 34.1-44.9 L 411) MEAN CORPUSCULAR VOLUME (BEAKER) 87 fL 79-95 (test code = 753) MEAN CORPUSCULAR HEMOGLOBIN 29.1 pg 25.6-32.2 (BEAKER) (test code = 751) MEAN CORPUSCULAR HEMOGLOBIN CONC 33.6 GM/DL 32.2-35.5 (BEAKER) (test code = 752) RED CELL DISTRIBUTION WIDTH 16.6 % 11.7-14.4 H (BEAKER) (test code = 412) PLATELET COUNT (BEAKER) (test code 35 K/CU MM 150-450 L = 756) MEAN PLATELET VOLUME (BEAKER) 9.4 fL 9.4-12.3 (test code = 754) NUCLEATED RED BLOOD CELLS (BEAKER) 0 /100 WBC 0-0 (test code = 413) NEUTROPHILS RELATIVE PERCENT 76 % (BEAKER) (test code = 429) LYMPHOCYTES RELATIVE PERCENT 13 % (BEAKER) (test code = 430) MONOCYTES RELATIVE PERCENT 8 % (BEAKER) (test code = 431) EOSINOPHILS RELATIVE PERCENT 1 % (BEAKER) (test code = 432) BASOPHILS RELATIVE PERCENT 1 % (BEAKER) (test code = 437) NEUTROPHILS ABSOLUTE COUNT 4.65 K/ L 1.56-6.13 (BEAKER) (test code = 670) LYMPHOCYTES ABSOLUTE COUNT 0.81 K/ L 1.18-3.74 L (BEAKER) (test code = 414) MONOCYTES ABSOLUTE COUNT (BEAKER) 0.51 K/ L 0.24-0.36 H (test code = 415) EOSINOPHILS ABSOLUTE COUNT 0.07 K/ L 0.04-0.36 (BEAKER) (test code = 416) BASOPHILS ABSOLUTE COUNT (BEAKER) 0.04 K/ L 0.01-0.08 (test code = 417) IMMATURE GRANULOCYTES-RELATIVE 0.30 % 0.00-1.00 PERCENT (BEAKER) (test code = 2801) POCT-GLUCOSE [id number] 06:07:46 Test Item Value Reference Range Interpretation Comments POC-GLUCOSE METER 172 mg/dL 70-110 H : TESTED A T [facility] 6720 (BEAKER) (test code = [facility], 1538) 32036: Mail Order Biller/Techni lisseth ID = [id number] for WIL Fleming POCT-GLUCOSE [id number] 17:48:41 Test Item Value Reference Range Interpretation Comments POC-GLUCOSE METER 124 mg/dL 70-110 H : TESTED A T [facility] 6720 (BEAKER) (test code = [facility], 1538) 27248: Mail Order Biller/Techni lisseth ID = [id number] for FITO OLIVA POCT-GLUCOSE [id number] 12:17:51 Test Item Value Reference Range Interpretation Comments POC-GLUCOSE METER 131 mg/dL 70-110 H : TESTED A T [facility] 6720 (BEAKER) (test code = [facility], 1538) [id number]: Mail Order Biller/Techni lisseth ID = [id number] for FITO OLIVA COMPREHENSIVE METABOLIC [id number] 08:33:21 Test Item Value Reference Range Interpretation Comments TOTAL PROTEIN 4.0 gm/dL 6.0-8.3 L (BEAKER) (test code = 770) ALBUMIN (BEAKER) 1.9 g/dL 3.5-5.0 L (test code = 1145) ALKALINE 78 U/L 40-150 PHOSPHATASE (BEAKER) (test code = 346) BILIRUBIN TOTAL 0.3 mg/dL 0.2-1.2 (BEAKER) (test code = 377) SODIUM (BEAKER) 134 meq/L 136-145 L (test code = 381) POTASSIUM (BEAKER) 3.2 meq/L 3.5-5.1 L (test code = 379) CHLORIDE (BEAKER) 100 meq/L 98-107 (test code = 382) CO2 (BEAKER) (test 23 meq/L 22-29 code = 355) BLOOD UREA 29 mg/dL 7-21 H NITROGEN (BEAKER) (test code = 354) CREATININE 6.66 mg/dL 0.57-1.25 H (BEAKER) (test code = 358) GLUCOSE RANDOM 136 mg/dL 70-105 H (BEAKER) (test code = 652) CALCIUM (BEAKER) 7.7 mg/dL 8.4-10.2 L (test code = 697) AST (SGOT) 12 U/L 5-34 (BEAKER) (test code = 353) ALT (SGPT) 10 U/L 6-55 (BEAKER) (test code = 347) EGFR (BEAKER) 6 Interpretatio n of eGFR [...] not appl icable for dialysis patien ts Mail Order Biller ID - [id number] 08:32:28 Test Item Value Reference Range Interpretation Comments PHOSPHORUS (BEAKER) (test code = 3.9 mg/dL 2.3-4.7 604) Mail Order Biller ID - [id number] 08:32:27 Test Item Value Reference Range Interpretation Comments MAGNESIUM (BEAKER) (test code = 1.8 mg/dL 1.6-2.6 627) Mail Order Biller ID - MARCOCBC W/PLT COUNT & AUTO [id number] 08:16:06 Test Item Value Reference Range Interpretation Comments WHITE BLOOD CELL COUNT (BEAKER) 4.8 K/ L 3.5-10.5 (test code = 775) RED BLOOD CELL COUNT (BEAKER) 3.26 M/ L 3.93-5.22 L (test code = 761) HEMOGLOBIN (BEAKER) (test code = 9.3 GM/DL 11.2-15.7 L 410) HEMATOCRIT (BEAKER) (test code = 27.8 % 34.1-44.9 L 411) MEAN CORPUSCULAR VOLUME (BEAKER) 85 fL 79-95 (test code = 753) MEAN CORPUSCULAR HEMOGLOBIN 28.5 pg 25.6-32.2 (BEAKER) (test code = 751) MEAN CORPUSCULAR HEMOGLOBIN CONC 33.5 GM/DL 32.2-35.5 (BEAKER) (test code = 752) RED CELL DISTRIBUTION WIDTH 16.7 % 11.7-14.4 H (BEAKER) (test code = 412) PLATELET COUNT (BEAKER) (test code 49 K/CU MM 150-450 L = 756) MEAN PLATELET VOLUME (BEAKER) 9.3 fL 9.4-12.3 L (test code = 754) NUCLEATED RED BLOOD CELLS (BEAKER) 0 /100 WBC 0-0 (test code = 413) NEUTROPHILS RELATIVE PERCENT 71 % (BEAKER) (test code = 429) LYMPHOCYTES RELATIVE PERCENT 19 % (BEAKER) (test code = 430) MONOCYTES RELATIVE PERCENT 7 % (BEAKER) (test code = 431) EOSINOPHILS RELATIVE PERCENT 2 % (BEAKER) (test code = 432) BASOPHILS RELATIVE PERCENT 0 % (BEAKER) (test code = 437) NEUTROPHILS ABSOLUTE COUNT 3.39 K/ L 1.56-6.13 (BEAKER) (test code = 670) LYMPHOCYTES ABSOLUTE COUNT 0.92 K/ L 1.18-3.74 L (BEAKER) (test code = 414) MONOCYTES ABSOLUTE COUNT (BEAKER) 0.33 K/ L 0.24-0.36 (test code = 415) EOSINOPHILS ABSOLUTE COUNT 0.08 K/ L 0.04-0.36 (BEAKER) (test code = 416) BASOPHILS ABSOLUTE COUNT (BEAKER) 0.02 K/ L 0.01-0.08 (test code = 417) IMMATURE GRANULOCYTES-RELATIVE 0.20 % 0.00-1.00 PERCENT (BEAKER) (test code = 2801) POCT-GLUCOSE [id number] 06:41:33 Test Item Value Reference Range Interpretation Comments POC-GLUCOSE METER 161 mg/dL 70-110 H : TESTED A T [facility] 6720 (BEAKER) (test code = [facility], 1538) 05747: Mail Order Biller/Techni lisseth ID = [id number] for WIL Fleming POCT-GLUCOSE [id number] 18:10:29 Test Item Value Reference Range Interpretation Comments POC-GLUCOSE METER 132 mg/dL 70-110 H : TESTED A T [facility] 6720 (BEAKER) (test code = [facility], 1538) [id number]: Mail Order Biller/Techni lisseth ID = [id number] for FITO OLIVA POCT-GLUCOSE [id number] 12:39:55 Test Item Value Reference Range Interpretation Comments POC-GLUCOSE METER 125 mg/dL 70-110 H : TESTED A T [facility] 6720 (BEAKER) (test code = [facility], 1538) 76976: Mail Order Biller/Techni lisseth ID = [id number] for FITO OLIVA COMPREHENSIVE METABOLIC [id number] 06:39:38 Test Item Value Reference Range Interpretation Comments TOTAL PROTEIN 4.5 gm/dL 6.0-8.3 L (BEAKER) (test code = 770) ALBUMIN (BEAKER) 2.1 g/dL 3.5-5.0 L (test code = 1145) ALKALINE 84 U/L 40-150 PHOSPHATASE (BEAKER) (test code = 346) BILIRUBIN TOTAL 0.3 mg/dL 0.2-1.2 (BEAKER) (test code = 377) SODIUM (BEAKER) 130 meq/L 136-145 L (test code = 381) POTASSIUM (BEAKER) 3.7 meq/L 3.5-5.1 (test code = 379) CHLORIDE (BEAKER) 96 meq/L 98-107 L (test code = 382) CO2 (BEAKER) (test 20 meq/L 22-29 L code = 355) BLOOD UREA 30 mg/dL 7-21 H NITROGEN (BEAKER) (test code = 354) CREATININE 6.63 mg/dL 0.57-1.25 H (BEAKER) (test code = 358) GLUCOSE RANDOM 163 mg/dL 70-105 H (BEAKER) (test code = 652) CALCIUM (BEAKER) 7.7 mg/dL 8.4-10.2 L (test code = 697) AST (SGOT) 11 U/L 5-34 (BEAKER) (test code = 353) ALT (SGPT) 6 U/L 6-55 (BEAKER) (test code = 347) EGFR (BEAKER) 6 Interpretatio n of eGFR [...] not appl icable for dialysis patien ts Mail Order Biller ID - [id number] 06:39:16 Test Item Value Reference Range Interpretation Comments MAGNESIUM (BEAKER) (test code = 1.8 mg/dL 1.6-2.6 627) Mail Order Biller ID - [id number] 06:39:16 Test Item Value Reference Range Interpretation Comments PHOSPHORUS (BEAKER) (test code = 3.9 mg/dL 2.3-4.7 604) Mail Order Biller ID - BSCBC W/PLT COUNT & AUTO [id number] 06:28:14 Test Item Value Reference Range Interpretation Comments WHITE BLOOD CELL COUNT (BEAKER) 5.3 K/ L 3.5-10.5 (test code = 775) RED BLOOD CELL COUNT (BEAKER) 3.77 M/ L 3.93-5.22 L (test code = 761) HEMOGLOBIN (BEAKER) (test code = 10.8 GM/DL 11.2-15.7 L 410) HEMATOCRIT (BEAKER) (test code = 33.3 % 34.1-44.9 L 411) MEAN CORPUSCULAR VOLUME (BEAKER) 88 fL 79-95 (test code = 753) MEAN CORPUSCULAR HEMOGLOBIN 28.6 pg 25.6-32.2 (BEAKER) (test code = 751) MEAN CORPUSCULAR HEMOGLOBIN CONC 32.4 GM/DL 32.2-35.5 (BEAKER) (test code = 752) RED CELL DISTRIBUTION WIDTH 17.1 % 11.7-14.4 H (BEAKER) (test code = 412) PLATELET COUNT (BEAKER) (test code 53 K/CU MM 150-450 L = 756) MEAN PLATELET VOLUME (BEAKER) 9.0 fL 9.4-12.3 L (test code = 754) NUCLEATED RED BLOOD CELLS (BEAKER) 0 /100 WBC 0-0 (test code = 413) NEUTROPHILS RELATIVE PERCENT 71 % (BEAKER) (test code = 429) LYMPHOCYTES RELATIVE PERCENT 21 % (BEAKER) (test code = 430) MONOCYTES RELATIVE PERCENT 6 % (BEAKER) (test code = 431) EOSINOPHILS RELATIVE PERCENT 2 % (BEAKER) (test code = 432) BASOPHILS RELATIVE PERCENT 1 % (BEAKER) (test code = 437) NEUTROPHILS ABSOLUTE COUNT 3.78 K/ L 1.56-6.13 (BEAKER) (test code = 670) LYMPHOCYTES ABSOLUTE COUNT 1.09 K/ L 1.18-3.74 L (BEAKER) (test code = 414) MONOCYTES ABSOLUTE COUNT (BEAKER) 0.29 K/ L 0.24-0.36 (test code = 415) EOSINOPHILS ABSOLUTE COUNT 0.10 K/ L 0.04-0.36 (BEAKER) (test code = 416) BASOPHILS ABSOLUTE COUNT (BEAKER) 0.03 K/ L 0.01-0.08 (test code = 417) IMMATURE GRANULOCYTES-RELATIVE 0.60 % 0.00-1.00 PERCENT (BEAKER) (test code = 2801) POCT-GLUCOSE [id number] 05:49:04 Test Item Value Reference Range Interpretation Comments POC-GLUCOSE METER 161 mg/dL 70-110 H : TESTED A T [facility] 6720 (BEAKER) (test code = [place], 1538) [id number]: Mail Order Biller/Techni lisseth ID = [id number] for SAYRA ALDRICH RA POCT-GLUCOSE [id number] 00:41:39 Test Item Value Reference Range Interpretation Comments POC-GLUCOSE METER 139 mg/dL 70-110 H : TESTED A T [facility] 6720 (BEAKER) (test code = DEION Calderón [facility], 1538) 73271: Mail Order Biller/Techni lisseth ID = [id number] for SAYRA ALDRICH RA POCT-GLUCOSE [id number] 16:36:15 Test Item Value Reference Range Interpretation Comments POC-GLUCOSE METER 64 mg/dL 70-110 L : TESTED A T [facility] 6720 (BEAKER) (test code DOMINIC [facility], = 1538) [id number]: Mail Order Biller/Techni lisseth ID = [id number] for Nickolas (contract)Maureen GASTRIC EMPTYING STUDY, [id number] 15:10:00Reason for Exam:->concern for gastroparesisReason for exam:->ongoing nausea and vomiting in ptwith diabetesSAN DIEGO COUNTY PSYCHIATRIC HOSPITALName: SIERRA REAL : 1940 Sex: FFINALREPORT PROCEDURE: GASTRIC EMPTYING STUDY with Liquids CPT CODE: 17594 INDICATION: 82-year-old female with a history of diabetes and ongoing nausea and vomiting. Concern for gastroparesis. PROTOCOL: 1.1 mCi of Tc-99m sulfur colloid was administered orally in 8 oz of water. Serial images of the upper abdomen were obtained in the PORTUGUESE projection for 60 minutes. Gastric emptying half time was calculated by the PowExp Fit method. FINDINGS: There is progressive emptying of gastric contents into the small bowel. The half-emptying time is calculated to be 15.8 minutes. IMPRESSION: Normal gastric emptying of a liquid meal. Signed: Lana Gonslaes Verified Date/Time: 06/03/2022 15:10:06 POCT-GLUCOSE [id number] 12:54:01 Test Item Value Reference Range Interpretation Comments POC-GLUCOSE METER 89 mg/dL 70-110 : [facility] ([facility]ER) (test code DOMINIC [facility], = 1538) 59717: Mail Order Biller/Techni lisseth ID = [id number] for Nickolas (contract)Maureen COMPREHENSIVE METABOLIC [id number] 06:19:59 Test Item Value Reference Range Interpretation Comments TOTAL PROTEIN 4.1 gm/dL 6.0-8.3 L (BEAKER) (test code = 770) ALBUMIN (BEAKER) 2.0 g/dL 3.5-5.0 L (test code = 1145) ALKALINE 80 U/L 40-150 PHOSPHATASE (BEAKER) (test code = 346) BILIRUBIN TOTAL 0.3 mg/dL 0.2-1.2 (BEAKER) (test code = 377) SODIUM (BEAKER) 130 meq/L 136-145 L (test code = 381) POTASSIUM (BEAKER) 3.5 meq/L 3.5-5.1 (test code = 379) CHLORIDE (BEAKER) 98 meq/L 98-107 (test code = 382) CO2 (BEAKER) (test 21 meq/L 22-29 L code = 355) BLOOD UREA 29 mg/dL 7-21 H NITROGEN (BEAKER) (test code = 354) CREATININE 6.55 mg/dL 0.57-1.25 H (BEAKER) (test code = 358) GLUCOSE RANDOM 125 mg/dL 70-105 H (BEAKER) (test code = 652) CALCIUM (BEAKER) 7.5 mg/dL 8.4-10.2 L (test code = 697) AST (SGOT) 11 U/L 5-34 (BEAKER) (test code = 353) ALT (SGPT) 8 U/L 6-55 (BEAKER) (test code = 347) EGFR (BEAKER) 6 Interpretatio n of eGFR (test code = 1092) mL/min/1.[address] age Description sq m Result G1 Iris l or high >=90 G2 Mildly decreased 60-89 G3a Mild ly to moderately 45-5 9 G3b Moderately to [...] not appl icable for dialysis patien ts Mail Order Biller ID - [id number] 06:19:01 Test Item Value Reference Range Interpretation Comments MAGNESIUM (BEAKER) (test code = 1.8 mg/dL 1.6-2.6 627) Mail Order Biller ID - [id number] 06:19:01 Test Item Value Reference Range Interpretation Comments PHOSPHORUS (BEAKER) (test code = 3.6 mg/dL 2.3-4.7 604) Mail Order Biller ID - MARCOPOCT-GLUCOSE [id number] 06:14:18 Test Item Value Reference Range Interpretation Comments POC-GLUCOSE METER 91 mg/dL 70-110 : TESTED A T [facility] 6720 (BEAKER) (test code = DEION Calderón [facility], 1538) 41132: Mail Order Biller/Techni lisseth ID = [id number] for SAYRA GATICA CBC W/PLT COUNT & AUTO [id number] 05:48:01 Test Item Value Reference Range Interpretation Comments WHITE BLOOD CELL COUNT 6.3 K/ L 3.5-10.5 (BEAKER) (test code = 775) RED BLOOD CELL COUNT 3.80 M/ L 3.93-5.22 L (BEAKER) (test code = 761) HEMOGLOBIN (BEAKER) 10.8 GM/DL 11.2-15.7 L (test code = 410) HEMATOCRIT (BEAKER) 32.3 % 34.1-44.9 L (test code = 411) MEAN CORPUSCULAR 85 fL 79-95 Discordant results VOLUME (BEAKER) (test compar ed to previous code = 753) results; clinic al correlation req uired MEAN CORPUSCULAR 28.4 pg 25.6-32.2 HEMOGLOBIN (BEAKER) (test code = 751) MEAN CORPUSCULAR 33.4 GM/DL 32.2-35.5 HEMOGLOBIN CONC (BEAKER) (test code = 752) RED CELL DISTRIBUTION 17.1 % 11.7-14.4 H WIDTH (BEAKER) (test code = 412) PLATELET COUNT 59 K/CU MM 150-450 L (BEAKER) (test code = 756) MEAN PLATELET VOLUME 9.7 fL 9.4-12.3 (BEAKER) (test code = 754) NUCLEATED RED BLOOD 0 /100 WBC 0-0 CELLS (BEAKER) (test code = 413) NEUTROPHILS RELATIVE 72 % PERCENT (BEAKER) (test code = 429) LYMPHOCYTES RELATIVE 18 % PERCENT (BEAKER) (test code = 430) MONOCYTES RELATIVE 8 % PERCENT (BEAKER) (test code = 431) EOSINOPHILS RELATIVE 2 % PERCENT (BEAKER) (test code = 432) BASOPHILS RELATIVE 0 % PERCENT (BEAKER) (test code = 437) NEUTROPHILS ABSOLUTE 4.51 K/ L 1.56-6.13 COUNT (BEAKER) (test code = 670) LYMPHOCYTES ABSOLUTE 1.11 K/ L 1.18-3.74 L COUNT (BEAKER) (test code = 414) MONOCYTES ABSOLUTE 0.47 K/ L 0.24-0.36 H COUNT (BEAKER) (test code = 415) EOSINOPHILS ABSOLUTE 0.13 K/ L 0.04-0.36 COUNT (BEAKER) (test code = 416) BASOPHILS ABSOLUTE 0.02 K/ L 0.01-0.08 COUNT (BEAKER) (test code = 417) IMMATURE 0.50 % 0.00-1.00 GRANULOCYTES-RELATIVE PERCENT (BEAKER) (test code = 2801) POCT-GLUCOSE [id number] 01:50:48 Test Item Value Reference Range Interpretation Comments POC-GLUCOSE METER 227 mg/dL 70-110 H : TESTED A T [facility] 6720 (BEAKER) (test code = [facility], 1538) [id number]: Mail Order Biller/Techni lisseth ID = [id number] for VALDEMAR WHIPPLE SAYRA POCT-GLUCOSE [id number] 17:12:37 Test Item Value Reference Range Interpretation Comments POC-GLUCOSE METER 116 mg/dL 70-110 H : TESTED A T [facility] 6720 (BEAKER) (test code [facility], = 1538) [id number]: Mail Order Biller/Techni lisseth ID = [id number] for [place] ([place]), Judith POCT-GLUCOSE [id number] 12:49:46 Test Item Value Reference Range Interpretation Comments POC-GLUCOSE METER 147 mg/dL 70-110 H : TESTED Sharmaine Britt [facility] 6720 (BEAKER) (test code [facility], = 1538) [id number]: Mail Order Biller/Techni lisseth ID = [id number] for [place] (con tract)Judith CBC W/PLT COUNT & AUTO [id number] 09:35:01 Test Item Value Reference Range Interpretation Comments WHITE BLOOD CELL COUNT (BEAKER) 4.5 K/ L 3.5-10.5 (test code = 775) RED BLOOD CELL COUNT (BEAKER) 2.86 M/ L 3.93-5.22 L (test code = 761) HEMOGLOBIN (BEAKER) (test code = 8.2 GM/DL 11.2-15.7 L 410) HEMATOCRIT (BEAKER) (test code = 26.1 % 34.1-44.9 L 411) MEAN CORPUSCULAR VOLUME (BEAKER) 91 fL 79-95 (test code = 753) MEAN CORPUSCULAR HEMOGLOBIN 28.7 pg 25.6-32.2 (BEAKER) (test code = 751) MEAN CORPUSCULAR HEMOGLOBIN CONC 31.4 GM/DL 32.2-35.5 L (BEAKER) (test code = 752) RED CELL DISTRIBUTION WIDTH 18.2 % 11.7-14.4 H (BEAKER) (test code = 412) PLATELET COUNT (BEAKER) (test code 58 K/CU MM 150-450 L = 756) MEAN PLATELET VOLUME (BEAKER) 9.3 fL 9.4-12.3 L (test code = 754) [...] 437) NEUTROPHILS ABSOLUTE COUNT 3.34 K/ L 1.56-6.13 (BEAKER) (test code = 670) LYMPHOCYTES ABSOLUTE COUNT 0.82 K/ L 1.18-3.74 L (BEAKER) (test code = 414) MONOCYTES ABSOLUTE COUNT (BEAKER) 0.24 K/ L 0.24-0.36 (test code = 415) EOSINOPHILS ABSOLUTE COUNT 0.08 K/ L 0.04-0.36 (BEAKER) (test code = 416) BASOPHILS ABSOLUTE COUNT (BEAKER) 0.01 K/ L 0.01-0.08 (test code = 417) IMMATURE GRANULOCYTES-RELATIVE 0.20 % 0.00-1.00 PERCENT (BEAKER) (test code = 2801) POCT-GLUCOSE [id number] 08:29:04 Test Item Value Reference Range Interpretation Comments POC-GLUCOSE METER 116 mg/dL 70-110 H : TESTED A T [facility] 6720 (BEAKER) (test code [facility], = 1538) [address]: Mail Order Biller/Techni lisseth ID = [id number] for Nickolas (con tract)Leidaa POCT-GLUCOSE [id number] 06:21:18 Test Item Value Reference Range Interpretation Comments POC-GLUCOSE METER 115 mg/dL 70-110 H : TESTED A T [facility] 6720 (BEAKER) (test code = [facility], 1538) [address]: Mail Order Biller/Techni lisseth ID = [id number] for Tutu duong, Shayy COMPREHENSIVE METABOLIC [id number] 06:03:22 Test Item Value Reference Range Interpretation Comments TOTAL PROTEIN 4.1 gm/dL 6.0-8.3 L Specimen sligh tly (BEAKER) (test hemolyzed code = 770) ALBUMIN (BEAKER) 1.8 g/dL 3.5-5.0 L Specimen sl ightly (test code = 1145) hemolyzed ALKALINE 76 U/L 40-150 PHOSPHATASE (BEAKER) (test code = 346) BILIRUBIN TOTAL 0.3 mg/dL 0.2-1.2 Specimen sli ghtly (BEAKER) (test hemolyzed code = 377) SODIUM (BEAKER) 128 meq/L 136-145 L (test code = 381) POTASSIUM (BEAKER) 3.4 meq/L 3.5-5.1 L Specimen slightly (test code = 379) hemolyzed CHLORIDE (BEAKER) 98 meq/L 98-107 (test code = 382) CO2 (BEAKER) (test 17 meq/L 22-29 L code = 355) BLOOD UREA 27 mg/dL 7-21 H NITROGEN (BEAKER) (test code = 354) CREATININE 6.68 mg/dL 0.57-1.25 H Specimen slight ly (BEAKER) (test hemolyzed code = 358) GLUCOSE RANDOM 148 mg/dL 70-105 H (BEAKER) (test code = 652) CALCIUM (BEAKER) 7.2 mg/dL 8.4-10.2 L (test code = 697) AST (SGOT) 13 U/L 5-34 Specimen slight ly (BEAKER) (test hemolyzed code = 353) ALT (SGPT) 7 U/L 6-55 Specimen slight ly (BEAKER) (test hemolyzed code = 347) EGFR (BEAKER) 6 Interpretatio n of eGFR (test code = 1092) mL/min/1.[address] age Description sq m Result G1 Iris l or high >=90 G2 Mildly decreased 60-89 G3a Mild ly to moderately 45-5 9 G3b Moderately to [...] not appl icable for dialysis patien ts Mail Order Biller ID - [id number] 05:55:50 Test Item Value Reference Range Interpretation Comments MAGNESIUM (BEAKER) 1.8 mg/dL 1.6-2.6 Specimen slightly (test code = 627) hemolyzed Mail Order Biller ID - [id number] 05:55:50 Test Item Value Reference Range Interpretation Comments PHOSPHORUS (BEAKER) 3.6 mg/dL 2.3-4.7 Specimen slightly (test code = 604) hemolyzed Mail Order Biller ID - ADMINPOCT-GLUCOSE [id number] 00:07:59 Test Item Value Reference Range Interpretation Comments POC-GLUCOSE METER 220 mg/dL 70-110 H : TESTED A T [facility] 6720 (BEAKER) (test code = [place], 1538) [address]: Mail Order Biller/Techni lisseth ID = [id number] for Ts Shayy duong POCT-GLUCOSE [id number] 18:25:37 Test Item Value Reference Range Interpretation Comments POC-GLUCOSE METER 103 mg/dL 70-110 : TESTED A T [facility] 6720 (BEAKER) (test code = [facility], 1538) [address]: Mail Order Biller/Techni lisseth ID = [id number] for Angelica Beach BASIC METABOLIC [id number] 16:59:14 Test Item Value Reference Range Interpretation Comments SODIUM (BEAKER) 128 meq/L 136-145 L (test code = 381) POTASSIUM 4.0 meq/L 3.5-5.1 Specimen slight ly (BEAKER) (test hemolyzed code = 379) CHLORIDE (BEAKER) 98 meq/L 98-107 (test code = 382) CO2 (BEAKER) 17 meq/L 22-29 L (test code = 355) BLOOD UREA 28 mg/dL 7-21 H NITROGEN (BEAKER) (test code = 354) CREATININE 6.89 mg/dL 0.57-1.25 H Specimen slight ly (BEAKER) (test hemolyzed code = 358) GLUCOSE RANDOM 110 mg/dL 70-105 H (BEAKER) (test code = 652) CALCIUM (BEAKER) 7.6 mg/dL 8.4-10.2 L (test code = 697) [...] not appl icable for dialysis patien ts Mail Order Biller ID - BSPOCT-GLUCOSE [id number] 12:22:24 Test Item Value Reference Range Interpretation Comments POC-GLUCOSE METER 142 mg/dL 70-110 H : TESTED A T [facility] 6720 (BEAKER) (test code = [facility] [place], 1538) [address]: Mail Order Biller/Techni lisseth ID = [id number] for Angelica Beach POCT-GLUCOSE [id number] 06:09:41 Test Item Value Reference Range Interpretation Comments POC-GLUCOSE METER 93 mg/dL 70-110 : [facility] ([facility] (test code = [facility] [place], 1538) [address]: Mail Order Biller/Techni lisseth ID = [id number] for Shayy Mann COMPREHENSIVE METABOLIC [id number] 05:18:56 Test Item Value Reference Range Interpretation Comments TOTAL PROTEIN 4.0 gm/dL 6.0-8.3 L (BEAKER) (test code = 770) ALBUMIN (BEAKER) 2.0 g/dL 3.5-5.0 L (test code = 1145) ALKALINE 76 U/L 40-150 PHOSPHATASE (BEAKER) (test code = 346) BILIRUBIN TOTAL 0.4 mg/dL 0.2-1.2 (BEAKER) (test code = 377) SODIUM (BEAKER) 131 meq/L 136-145 L (test code = 381) POTASSIUM (BEAKER) 2.7 meq/L 3.5-5.1 L (test code = 379) CHLORIDE (BEAKER) 97 meq/L 98-107 L (test code = 382) CO2 (BEAKER) (test 22 meq/L 22-29 code = 355) BLOOD UREA 29 mg/dL 7-21 H NITROGEN (BEAKER) (test code = 354) CREATININE 6.80 mg/dL 0.57-1.25 H (BEAKER) (test code = 358) GLUCOSE RANDOM 133 mg/dL 70-105 H (BEAKER) (test code = 652) CALCIUM (BEAKER) 7.7 mg/dL 8.4-10.2 L (test code = 697) AST (SGOT) 8 U/L 5-34 (BEAKER) (test code = 353) ALT (SGPT) 6 U/L 6-55 (BEAKER) (test code = 347) EGFR (BEAKER) 6 Interpretatio n of eGFR [...] not appl icable for dialysis patien ts Mail Order Biller ID - [id number] 05:17:04 Test Item Value Reference Range Interpretation Comments MAGNESIUM (BEAKER) (test code = 2.0 mg/dL 1.6-2.6 627) Mail Order Biller ID - [id number] 05:17:04 Test Item Value Reference Range Interpretation Comments PHOSPHORUS (BEAKER) (test code = 3.6 mg/dL 2.3-4.7 604) Mail Order Biller ID - STASOCBC W/PLT COUNT & AUTO [id number] 04:48:12 Test Item Value Reference Range Interpretation Comments WHITE BLOOD CELL COUNT (BEAKER) 5.5 K/ L 3.5-10.5 (test code = 775) RED BLOOD CELL COUNT (BEAKER) 3.72 M/ L 3.93-5.22 L (test code = 761) HEMOGLOBIN (BEAKER) (test code = 10.7 GM/DL 11.2-15.7 L 410) HEMATOCRIT (BEAKER) (test code = 32.7 % 34.1-44.9 L 411) MEAN CORPUSCULAR VOLUME (BEAKER) 88 fL 79-95 (test code = 753) MEAN CORPUSCULAR HEMOGLOBIN 28.8 pg 25.6-32.2 (BEAKER) (test code = 751) MEAN CORPUSCULAR HEMOGLOBIN CONC 32.7 GM/DL 32.2-35.5 (BEAKER) (test code = 752) RED CELL DISTRIBUTION WIDTH 17.4 % 11.7-14.4 H (BEAKER) (test code = 412) PLATELET COUNT (BEAKER) (test code 75 K/CU MM 150-450 L = 756) MEAN PLATELET VOLUME (BEAKER) 8.2 fL 9.4-12.3 L (test code = 754) NUCLEATED RED BLOOD CELLS (BEAKER) 0 /100 WBC 0-0 (test code = 413) NEUTROPHILS RELATIVE PERCENT 66 % (BEAKER) (test code = 429) LYMPHOCYTES RELATIVE PERCENT 23 % (BEAKER) (test code = 430) MONOCYTES RELATIVE PERCENT 8 % (BEAKER) (test code = 431) EOSINOPHILS RELATIVE PERCENT 2 % (BEAKER) (test code = 432) BASOPHILS RELATIVE PERCENT 1 % (BEAKER) (test code = 437) NEUTROPHILS ABSOLUTE COUNT 3.64 K/ L 1.56-6.13 (BEAKER) (test code = 670) LYMPHOCYTES ABSOLUTE COUNT 1.26 K/ L 1.18-3.74 (BEAKER) (test code = 414) MONOCYTES ABSOLUTE COUNT (BEAKER) 0.44 K/ L 0.24-0.36 H (test code = 415) EOSINOPHILS ABSOLUTE COUNT 0.12 K/ L 0.04-0.36 (BEAKER) (test code = 416) BASOPHILS ABSOLUTE COUNT (BEAKER) 0.03 K/ L 0.01-0.08 (test code = 417) IMMATURE GRANULOCYTES-RELATIVE 0.40 % 0.00-1.00 PERCENT (BEAKER) (test code = 2801) BLOOD [id number] 01:00:22 Test Item Value Reference Range Interpretation Comments CULTURE (BEAKER) (test No growth in 5 days code = 1095) POCT-GLUCOSE [id number] 23:38:08 Test Item Value Reference Range Interpretation Comments POC-GLUCOSE METER 202 mg/dL 70-110 H : TESTED A T [facility] 6720 (BEAKER) (test code = [facility], 1538) [address]: Mail Order Biller/Techni lisseth ID = [id number] for Shayy Davison BLOOD [id number] 21:00:24 Test Item Value Reference Range Interpretation Comments CULTURE (BEAKER) (test No growth in 5 days code = 1095) POCT-GLUCOSE [id number] 17:26:21 Test Item Value Reference Range Interpretation Comments POC-GLUCOSE METER 116 mg/dL 70-110 H : TESTED A T [facility] 6720 (BEAKER) (test code = [facility], 1538) 167[address]: Mail Order Biller/Techni lisseth ID = [id number] for Angelica Beach POC-Glucose [id number] 13:19:20 Test Item Value Reference Range Interpretation Comments POC-Glucose Meter (test 118 mg/dL 70-110 H : TE STED AT [facility] code = 1538) 6720 [facility], 770 30: Mail Order Biller/Techni lisseth ID = [id number] for Angelica Peter Lab Interpretation (test Abnormal code = 30915-0) [facility] [id number] 13:19:20 Test Item Value Reference Range Interpretation Comments POC-GLUCOSE METER 118 mg/dL 70-110 H : TESTED A T [facility] 6720 (BEAKER) (test code = [facility], 1538) 54753: Mail Order Biller/Techni lisseth ID = [id number] for Angelica Beach POC-Glucose [id number] 06:42:11 Test Item Value Reference Range Interpretation Comments POC-Glucose Meter (test 120 mg/dL 70-110 H : TE STED AT [facility] code = 1538) 6720 [facility], 770 30: Mail Order Biller/Techni lisseth ID = [id number] for Reggie Zafaroyeni Lab Interpretation (test Abnormal code = 14249-9) [facility] [id number] 06:42:11 Test Item Value Reference Range Interpretation Comments POC-GLUCOSE METER 120 mg/dL 70-110 H : TESTED A T [facility] 6720 (BEAKER) (test code = [facility], 1538) [address]: Mail Order Biller/Techni lisseth ID = [id number] for Fa tami, Omoyeni COMPREHENSIVE METABOLIC [id number] 05:38:11 Test Item Value Reference Range Interpretation Comments TOTAL PROTEIN 4.1 gm/dL 6.0-8.3 L Specimen sligh tly (BEAKER) (test hemolyzed code = 770) ALBUMIN (BEAKER) 2.0 g/dL 3.5-5.0 L Specimen sl ightly (test code = 1145) hemolyzed ALKALINE 71 U/L 40-150 PHOSPHATASE (BEAKER) (test code = 346) BILIRUBIN TOTAL 0.3 mg/dL 0.2-1.2 Specimen sli ghtly (BEAKER) (test hemolyzed code = 377) SODIUM (BEAKER) 130 meq/L 136-145 L (test code = 381) POTASSIUM (BEAKER) 3.1 meq/L 3.5-5.1 L Specimen slightly (test code = 379) hemolyzed CHLORIDE (BEAKER) 97 meq/L 98-107 L (test code = 382) CO2 (BEAKER) (test 21 meq/L 22-29 L code = 355) BLOOD UREA 30 mg/dL 7-21 H NITROGEN (BEAKER) (test code = 354) CREATININE 6.79 mg/dL 0.57-1.25 H Specimen slight ly (BEAKER) (test hemolyzed code = 358) GLUCOSE RANDOM 144 mg/dL 70-105 H (BEAKER) (test code = 652) CALCIUM (BEAKER) 7.5 mg/dL 8.4-10.2 L (test code = 697) AST (SGOT) 11 U/L 5-34 Specimen slight ly (BEAKER) (test hemolyzed code = 353) ALT (SGPT) 6 U/L 6-55 Specimen slight ly (BEAKER) (test hemolyzed code = 347) EGFR (BEAKER) 6 Interpretatio n of eGFR [...] not appl icable for dialysis patien ts Mail Order Biller ID - [id number] 05:36:26 Test Item Value Reference Range Interpretation Comments MAGNESIUM (BEAKER) 2.0 mg/dL 1.6-2.6 Specimen slightly (test code = 627) hemolyzed Mail Order Biller ID - [id number] 05:36:26 Test Item Value Reference Range Interpretation Comments PHOSPHORUS (BEAKER) 3.5 mg/dL 2.3-4.7 Specimen slightly (test code = 604) hemolyzed Mail Order Biller ID - BSCBC W/PLT COUNT & AUTO [id number] 05:19:23 Test Item Value Reference Range Interpretation Comments WHITE BLOOD CELL COUNT 5.8 K/ L 3.5-10.5 (BEAKER) (test code = 775) RED BLOOD CELL COUNT 3.69 M/ L 3.93-5.22 L (BEAKER) (test code = 761) HEMOGLOBIN (BEAKER) 10.8 GM/DL 11.2-15.7 L (test code = 410) HEMATOCRIT (BEAKER) 32.8 % 34.1-44.9 L (test code = 411) MEAN CORPUSCULAR 89 fL 79-95 Discordant results VOLUME (BEAKER) (test compar ed to previous code = 753) results; clinic al correlation req uired MEAN CORPUSCULAR 29.3 pg 25.6-32.2 HEMOGLOBIN (BEAKER) (test code = 751) MEAN CORPUSCULAR 32.9 GM/DL 32.2-35.5 HEMOGLOBIN CONC (BEAKER) (test code = 752) RED CELL DISTRIBUTION 17.7 % 11.7-14.4 H WIDTH (BEAKER) (test code = 412) PLATELET COUNT 88 K/CU MM 150-450 L (BEAKER) (test code = 756) MEAN PLATELET VOLUME 8.8 fL 9.4-12.3 L (BEAKER) (test code = 754) NUCLEATED RED BLOOD 0 /100 WBC 0-0 CELLS (BEAKER) (test code = 413) NEUTROPHILS RELATIVE 72 % PERCENT (BEAKER) (test code = 429) LYMPHOCYTES RELATIVE 18 % PERCENT (BEAKER) (test code = 430) MONOCYTES RELATIVE 7 % PERCENT (BEAKER) (test code = 431) EOSINOPHILS RELATIVE 2 % PERCENT (BEAKER) (test code = 432) BASOPHILS RELATIVE 0 % PERCENT (BEAKER) (test code = 437) NEUTROPHILS ABSOLUTE 4.17 K/ L 1.56-6.13 COUNT (BEAKER) (test code = 670) LYMPHOCYTES ABSOLUTE 1.04 K/ L 1.18-3.74 L COUNT (BEAKER) (test code = 414) MONOCYTES ABSOLUTE 0.42 K/ L 0.24-0.36 H COUNT (BEAKER) (test code = 415) EOSINOPHILS ABSOLUTE 0.14 K/ L 0.04-0.36 COUNT (BEAKER) (test code = 416) BASOPHILS ABSOLUTE 0.02 K/ L 0.01-0.08 COUNT (BEAKER) (test code = 417) IMMATURE 0.50 % 0.00-1.00 GRANULOCYTES-RELATIVE PERCENT (BEAKER) (test code = 2801) POCT-GLUCOSE [id number] 00:00:40 Test Item Value Reference Range Interpretation Comments POC-GLUCOSE METER 215 mg/dL 70-110 H : TESTED A T [facility] 6720 (BEAKER) (test code = [facility] [place], 1538) [address]: Mail Order Biller/Techni lisseth ID = [id number] for SAYRA ALDRICH RA POCT-GLUCOSE [id number] 18:58:16 Test Item Value Reference Range Interpretation Comments POC-GLUCOSE METER 127 mg/dL 70-110 H : TESTED A T [facility] 6720 (BEAKER) (test code = [facility], 1538) 115[address]: Mail Order Biller/Techni lisseth ID = [id number] for KEHINDE BROWN (V)YAEL RAD, CHEST, 1 VIEW, NON [id number] 16:59:00Reason for exam:->ileus, n/vShould this be performed at the bedside?->Yes [facility] : 1940 Sex: FFINALREPORT RAD, CHEST, 1 VIEW, NON DEPT INDICATION: ileus, n/v COMPARISON: Prior day's exam FINDINGS: Portable frontal view of the chest. IMPRESSION: Support Lines: NG tube descends below the diaphragm. Pacer device. Lungs and pleura: Lungs are clear. No significant pneumothorax. Heart and mediastinum: Stable contours. Stable surgical changes. Additional findings: None. Signed: Jese Florence MDReport Verified Date/Time: 05/30/2022 16:59:21 RAD, ABDOMEN/KUB, 1 VIEW [id number] 16:58:00Reason for exam:->ileus, n/vShould this be performed at the bedside?->Yes [facility] : 1940 Sex: FFINALREPORT RAD, ABDOMEN/KUB, 1 VIEW AP INDICATION: ileus, n/v COMPARISON: March 29, 2022 TECHNIQUE: Limited portable radiograph of the lower chest and upper abdomen was acquired for purposes of evaluating tube placement FINDINGS/IMPRESSION:NG side-port overlies the stomach. No enlarged or distended loops of bowel are seen. Large bowel is normal in caliber and partially stool-filled. Bowel gas pattern is nonspecific but nonobstructive. Signed: Jese Florence MDReport Verified Date/Time: 05/30/2022 16:58:55 POCT-GLUCOSE METER 2022-05-30 12:54:16 Test Item Value Reference Range Interpretation Comments POC-GLUCOSE METER 156 mg/dL 70-110 H : Notified RN/: (GONZALES) (test code = TESTED AT [facility] 6720 1538) [facility], [address]: Mail Order Biller/Techni lisseth ID = [id number] for AN CRIS DILLON Body fluid culture + gram [id number] 11:46:22 Test Item Value Reference Range Interpretation Comments Result (test code = 6463-4) No growth Lab Interpretation (test code = Normal 52342-1) [facility] gram [id number] 11:46:22 Test Item Value Reference Range Interpretation Comments Result (test code = 6463-4) No growth Lab Interpretation (test code = Normal 32032-9) [facility] + gram [id number] 11:46:22 Test Item Value Reference Range Interpretation Comments Result (test code = 6463-4) No growth Lab Interpretation (test code = Normal 07011-4) [facility] Center[facility] + GRAM [id number] 11:46:22 Test Item Value Reference Range Interpretation Comments CULTURE (BEAKER) (test code = 1095) No growth POCT-GLUCOSE [id number] 06:14:36 Test Item Value Reference Range Interpretation Comments POC-GLUCOSE METER 155 mg/dL 70-110 H : TESTED A T [facility] 6720 (BEAKER) (test code = [place], 1538) [address]: Mail Order Biller/Techni lisseth ID = [id number] for SAYRA ALDRICH RA BASIC METABOLIC [id number] 05:41:30 Test Item Value Reference Range Interpretation Comments SODIUM (BEAKER) 132 meq/L 136-145 L (test code = 381) POTASSIUM 3.3 meq/L 3.5-5.1 L Specimen slight ly (BEAKER) (test hemolyzed code = 379) CHLORIDE (BEAKER) 97 meq/L 98-107 L (test code = 382) CO2 (BEAKER) 23 meq/L 22-29 (test code = 355) BLOOD UREA 33 mg/dL 7-21 H NITROGEN (BEAKER) (test code = 354) CREATININE 7.20 mg/dL 0.57-1.25 H Specimen slight ly (BEAKER) (test hemolyzed code = 358) GLUCOSE RANDOM 155 mg/dL 70-105 H (BEAKER) (test code = 652) CALCIUM (BEAKER) 7.8 mg/dL 8.4-10.2 L (test code = 697) [...] not appl icable for dialysis patien ts Mail Order Biller ID - [id number] 05:41:13 Test Item Value Reference Range Interpretation Comments PHOSPHORUS (BEAKER) 3.9 mg/dL 2.3-4.7 Specimen slightly (test code = 604) hemolyzed Mail Order Biller ID - [id number] 05:41:12 Test Item Value Reference Range Interpretation Comments MAGNESIUM (BEAKER) 2.2 mg/dL 1.6-2.6 Specimen slightly (test code = 627) hemolyzed Mail Order Biller ID - MARCOCBC (HEMOGRAM ONLY)2022-05-30 05:19:07 Test Item Value Reference Range Interpretation Comments WHITE BLOOD CELL COUNT (BEAKER) 6.1 K/ L 3.5-10.5 (test code = 775) RED BLOOD CELL COUNT (BEAKER) 3.59 M/ L 3.93-5.22 L (test code = 761) HEMOGLOBIN (BEAKER) (test code = 10.2 GM/DL 11.2-15.7 L 410) HEMATOCRIT (BEAKER) (test code = 30.6 % 34.1-44.9 L 411) MEAN CORPUSCULAR VOLUME (BEAKER) 85 fL 79-95 (test code = 753) MEAN CORPUSCULAR HEMOGLOBIN 28.4 pg 25.6-32.2 (BEAKER) (test code = 751) MEAN CORPUSCULAR HEMOGLOBIN CONC 33.3 GM/DL 32.2-35.5 (BEAKER) (test code = 752) RED CELL DISTRIBUTION WIDTH 17.9 % 11.7-14.4 H (BEAKER) (test code = 412) PLATELET COUNT (BEAKER) (test 103 K/CU MM 150-450 L code = 756) MEAN PLATELET VOLUME (BEAKER) 8.7 fL 9.4-12.3 L (test code = 754) NUCLEATED RED BLOOD CELLS 0 /100 WBC 0-0 (BEAKER) (test code = 413) POCT-GLUCOSE [id number] 00:45:57 Test Item Value Reference Range Interpretation Comments POC-GLUCOSE METER 174 mg/dL 70-110 H : TESTED A T [facility] 6720 (BEAKER) (test code = [place], 1538) [address]: Mail Order Biller/Techni lisseth ID = [id number] for SAYRA ALDRICH RA Prepare Leuko-Red [id number] 23:54:00 Test Item Value Reference Range Interpretation Comments CROSSMATCH (test code = 2264) COMPATIBLE Unit ABO (test code = A Neg 5118325) UNIT NUMBER (test code = [id number] 934-0) Status (test code = 8842026) TX_TIMEINCHART Blood Bank Product (test code RED BLOOD CELLS = 2263) PRODUCT CODE (test code = Y3343Z60 933-2) [facility] [id number] 23:54:00 Test Item Value Reference Range Interpretation Comments CROSSMATCH (test code = 2264) COMPATIBLE Unit ABO (test code = A Neg 5195860) UNIT NUMBER (test code = [id number] 934-0) Status (test code = 7969534) TX_TIMEINCHART Blood Bank Product (test code RED BLOOD CELLS = 2263) PRODUCT CODE (test code = [id number] 933-2) [facility] Center[facility]uko[facility]Red [id number] 23:54:00 Test Item Value Reference Range Interpretation Comments CROSSMATCH (test code = 2264) COMPATIBLE Unit ABO (test code = A Neg 8194519) UNIT NUMBER (test code = [id number] 934-0) Status (test code = 5580108) TX_TIMEINCHART Blood Bank Product (test code RED BLOOD CELLS = 2263) PRODUCT CODE (test code = D8513F93 933-2) [facility] CenterPO[facility] [id number] 18:17:14 Test Item Value Reference Range Interpretation Comments POC-GLUCOSE METER 99 mg/dL 70-110 : TESTED A T [facility] 6720 (BEAKER) (test code = [facility] [place]ón [place], 1538) [address]: Mail Order Biller/Techni lisseth ID = [id number] for CRIS MONTIEL POCT-GLUCOSE [id number] 13:16:23 Test Item Value Reference Range Interpretation Comments POC-GLUCOSE METER 127 mg/dL 70-110 H : TESTED A T [facility] 6720 (BEAKER) (test code = [facility], 1538) [address]: Mail Order Biller/Techni lisseth ID = [id number] for Arianna Flores BODY FLUID CULTURE + GRAM [id number] 12:23:59 Test Item Value Reference Range Interpretation Comments CULTURE (BEAKER) (test code = 1095) No growth BASIC METABOLIC [id number] 09:51:40 Test Item Value Reference Range Interpretation Comments SODIUM (BEAKER) 131 meq/L 136-145 L (test code = 381) POTASSIUM 3.2 meq/L 3.5-5.1 L (BEAKER) (test code = 379) CHLORIDE (BEAKER) 95 meq/L 98-107 L (test code = 382) CO2 (BEAKER) 24 meq/L 22-29 (test code = 355) BLOOD UREA 36 mg/dL 7-21 H NITROGEN (BEAKER) (test code = 354) CREATININE 7.42 mg/dL 0.57-1.25 H (BEAKER) (test code = 358) GLUCOSE RANDOM 153 mg/dL 70-105 H (BEAKER) (test code = 652) CALCIUM (BEAKER) 7.8 mg/dL 8.4-10.2 L (test code = 697) EGFR (BEAKER) 5 Interpretatio n of eGFR (test code = mL/min/1.73 values Stage De scription 1092) sq m Result G1 Iris l or high >=90 G2 Mildly decreased 60-89 G3a Mildl y to moderately 45- 59 G3b Moderately to s everely 30-44 G4 Severl y decreased 15-29 G5 Kidney failure <15Reported eGF R is based on the CKD-EPI 2020 equation that d oes not use a race coefficientEsti mated GFR is not as accur ate as Creatinine Agnieszka gagan in predicting glom erular filtration rate . Estimated GFR is not appl icable for dialysis patien ts Mail Order Biller ID - [id number] 09:51:14 Test Item Value Reference Range Interpretation Comments MAGNESIUM (BEAKER) (test code = 2.4 mg/dL 1.6-2.6 627) Mail Order Biller ID - BSCALCIUM, [id number] 09:41:54 Test Item Value Reference Range Interpretation Comments CALCIUM IONIZED (BEAKER) (test 1.06 mmol/L 1.12-1.27 L code = 698) PH, BLOOD (BEAKER) (test code = 7.36 1810) POCT-GLUCOSE [id number] 05:29:24 Test Item Value Reference Range Interpretation Comments POC-GLUCOSE METER 205 mg/dL 70-110 H : TESTED A T BSC 6720 (BEAKER) (test code = DEION AMIN NM, 1538) 36450: Mail Order Biller/Techni lisseth ID = [id number] for Ra khoa Forrester COMPREHENSIVE METABOLIC [id number] 04:15:00 Test Item Value Reference Range Interpretation Comments TOTAL PROTEIN 4.3 gm/dL 6.0-8.3 L (BEAKER) (test code = 770) ALBUMIN (BEAKER) 2.3 g/dL 3.5-5.0 L (test code = 1145) ALKALINE 76 U/L 40-150 PHOSPHATASE (BEAKER) (test code = 346) BILIRUBIN TOTAL 0.4 mg/dL 0.2-1.2 (BEAKER) (test code = 377) SODIUM (BEAKER) 133 meq/L 136-145 L (test code = 381) POTASSIUM (BEAKER) 3.2 meq/L 3.5-5.1 L (test code = 379) CHLORIDE (BEAKER) 97 meq/L 98-107 L (test code = 382) CO2 (BEAKER) (test 21 meq/L 22-29 L code = 355) BLOOD UREA 36 mg/dL 7-21 H NITROGEN (BEAKER) (test code = 354) CREATININE 7.85 mg/dL 0.57-1.25 H (BEAKER) (test code = 358) GLUCOSE RANDOM 182 mg/dL 70-105 H (BEAKER) (test code = 652) CALCIUM (BEAKER) 7.7 mg/dL 8.4-10.2 L (test code = 697) AST (SGOT) 8 U/L 5-34 (BEAKER) (test code = 353) ALT (SGPT) < U/L 6-55 L (BEAKER) (test code = 347) EGFR (BEAKER) 5 Interpretatio n of eGFR [...] not appl icable for dialysis patien ts Mail Order Biller ID - [id number] 04:14:08 Test Item Value Reference Range Interpretation Comments PHOSPHORUS (BEAKER) (test code = 4.0 mg/dL 2.3-4.7 604) Mail Order Biller ID - [id number] 04:14:07 Test Item Value Reference Range Interpretation Comments MAGNESIUM (BEAKER) (test code = 1.9 mg/dL 1.6-2.6 627) Mail Order Biller ID - MMCALCIUM, [id number] 04:04:34 Test Item Value Reference Range Interpretation Comments CALCIUM IONIZED (BEAKER) (test 1.01 mmol/L 1.12-1.27 L code = 698) PH, BLOOD (BEAKER) (test code = 7.37 1810) CBC W/PLT COUNT & AUTO [id number] 03:57:55 Test Item Value Reference Range Interpretation Comments WHITE BLOOD CELL COUNT 9.0 K/ L 3.5-10.5 (BEAKER) (test code = 775) RED BLOOD CELL COUNT 3.33 M/ L 3.93-5.22 L (BEAKER) (test code = 761) HEMOGLOBIN (BEAKER) 9.7 GM/DL 11.2-15.7 L (test code = 410) HEMATOCRIT (BEAKER) 29.3 % 34.1-44.9 L (test code = 411) MEAN CORPUSCULAR 88 fL 79-95 Discordant results VOLUME (BEAKER) (test compar ed to previous code = 753) results; clinic al correlation req uired MEAN CORPUSCULAR 29.1 pg 25.6-32.2 HEMOGLOBIN (BEAKER) (test code = 751) MEAN CORPUSCULAR 33.1 GM/DL 32.2-35.5 HEMOGLOBIN CONC (BEAKER) (test code = 752) RED CELL DISTRIBUTION 18.2 % 11.7-14.4 H WIDTH (BEAKER) (test code = 412) PLATELET COUNT 114 K/CU MM 150-450 L (BEAKER) (test code = 756) MEAN PLATELET VOLUME 8.6 fL 9.4-12.3 L (BEAKER) (test code = 754) NUCLEATED RED BLOOD 0 /100 WBC 0-0 CELLS (BEAKER) (test code = 413) NEUTROPHILS RELATIVE 83 % PERCENT (BEAKER) (test code = 429) LYMPHOCYTES RELATIVE 9 % PERCENT (BEAKER) (test code = 430) MONOCYTES RELATIVE 5 % PERCENT (BEAKER) (test code = 431) EOSINOPHILS RELATIVE 2 % PERCENT (BEAKER) (test code = 432) BASOPHILS RELATIVE 0 % PERCENT (BEAKER) (test code = 437) NEUTROPHILS ABSOLUTE 7.46 K/ L 1.56-6.13 H COUNT (BEAKER) (test code = 670) LYMPHOCYTES ABSOLUTE 0.79 K/ L 1.18-3.74 L COUNT (BEAKER) (test code = 414) MONOCYTES ABSOLUTE 0.47 K/ L 0.24-0.36 H COUNT (BEAKER) (test code = 415) EOSINOPHILS ABSOLUTE 0.17 K/ L 0.04-0.36 COUNT (BEAKER) (test code = 416) BASOPHILS ABSOLUTE 0.01 K/ L 0.01-0.08 COUNT (BEAKER) (test code = 417) IMMATURE 0.70 % 0.00-1.00 GRANULOCYTES-RELATIVE PERCENT (BEAKER) (test code = 2801) POCT-GLUCOSE [id number] 23:54:52 Test Item Value Reference Range Interpretation Comments POC-GLUCOSE METER 143 mg/dL 70-110 H : TESTED A T [facility] 6720 (BEAKER) (test code = [place], 1538) [address]: Mail Order Biller/Techni lisseth ID = [id number] for Ra khoa Forrester Body fluid cell count with [id number] 22:36:06 Test Item Value Reference Range Interpretation Comments Appearance (test code = Clear Clear 9335-1) Color (test code = Straw Colorless, Straw 6824-7) RBCs (test code = 23 See_Comment H [Automate d message] 55141-9) The system [employer] generated this result transmit geeta reference range : <=1 /cu mm. The reference range was not used to interpret this result as normal/abnormal . TNC Count (test code = 84 See_Comment H [Aut omated message] 1442) The system [employer] generated this result transmit geeta reference range : <=5 /cu mm. The reference range was not used to interpret this result as normal/abnormal . Lining Cells/Other 0 Diff'd (test code = 1589) Adjusted WBC Count 84 See_Comment H [Automat ed message] (test code = 54274-2) The sy stem which generated this result transmit geeta reference range : <=5 /cu mm. The reference range was not used to interpret this result as normal/abnormal . Adjusted lining 0 See_Comment [Automated message] cells/Others (test code The system which = 79082-1) generated this result transmit geeta reference range : <=1 /cu mm. The reference range was not used to interpret this result as normal/abnormal . % Segs (test code = 29 % 99528-6) % Lymphs (test code = 21 % 63915-2) % Monos (test code = 50 % 76774-9) % Eos (test code = 0 % 50079-8) % Baso (test code = 0 % 21828-8) Container Body Fluid EDTA Tube (test code = 2873) Lab Interpretation Abnormal (test code = 13104-4) [facility] [id number] 22:36:06 Test Item Value Reference Range Interpretation Comments Appearance (test code = Clear Clear 9335-1) Color (test code = Straw Colorless, Straw 6824-7) RBCs (test code = 23 See_Comment H [Automate d message] 60272-9) The system [employer] generated this result transmit geeta reference range : <=1 /cu mm. The reference range was not used to interpret this result as normal/abnormal . TNC Count (test code = 84 See_Comment H [Aut omated message] 1442) The system whic h generated this result transmit geeta reference range : <=5 /cu mm. The reference range was not used to interpret this result as normal/abnormal . Lining Cells/Other 0 Diff'd (test code = 1589) Adjusted WBC Count 84 See_Comment H [Automat ed message] (test code = 68943-0) The sy stem which generated this result transmit geeta reference range : <=5 /cu mm. The reference range was not used to interpret this result as normal/abnormal . Adjusted lining 0 See_Comment [Automated message] cells/Others (test code The system which = 48772-0) generated this result transmit geeta reference range : <=1 /cu mm. The reference range was not used to interpret this result as normal/abnormal . % Segs (test code = 29 % 43719-4) % Lymphs (test code = 21 % 93632-6) % Monos (test code = 50 % 27353-2) % Eos (test code = 0 % 22624-2) % Baso (test code = 0 % 36600-3) Container Body Fluid EDTA Tube (test code = 2873) Lab Interpretation Abnormal (test code = 19652-9) [facility] WITH [id number] 22:36:06 Test Item Value Reference Range Interpretation Comments APPEARANCE FLUID (BEAKER) (test Clear Clear code = 510) COLOR FLUID (BEAKER) (test code = Straw Colorless, Straw 511) RBC FLUID (BEAKER) (test code = 23 /cu mm <=1 H 513) TOTAL NUCLEATED CELL COUNT 84 /cu mm <=5 H (BEAKER) (test code = 1442) LINING CELLS/OTHERS DIFF'D 0 (BEAKER) (test code = 1589) ADJUSTED WBC FLUID (BEAKER) (test 84 /cu mm <=5 H code = 1691) LINING CELLS/OTHERS, CALCULATED 0 /cu mm <=1 (BEAKER) (test code = 1590) NEUTROPHILS FLUID (BEAKER) (test 29 % code = 1656) LYMPHS FLUID (BEAKER) (test code = 21 % 488) MONO/MACROPHAGE FLUID (BEAKER) 50 % (test code = 489) EOSINOPHILS FLUID (BEAKER) (test 0 % code = 491) BASO FLUID (BEAKER) (test code = 0 % 492) CONTAINER BODY FLUID (BEAKER) EDTA Tube (test code = 2873) BASIC METABOLIC [id number] 22:17:28 Test Item Value Reference Range Interpretation Comments SODIUM (BEAKER) 131 meq/L 136-145 L (test code = 381) POTASSIUM 3.1 meq/L 3.5-5.1 L (BEAKER) (test code = 379) CHLORIDE (BEAKER) 96 meq/L 98-107 L (test code = 382) CO2 (BEAKER) 22 meq/L 22-29 (test code = 355) BLOOD UREA 40 mg/dL 7-21 H NITROGEN (BEAKER) (test code = 354) CREATININE 8.15 mg/dL 0.57-1.25 H (BEAKER) (test code = 358) GLUCOSE RANDOM 139 mg/dL 70-105 H (BEAKER) (test code = 652) CALCIUM (BEAKER) 7.3 mg/dL 8.4-10.2 L (test code = 697) [...] not appl icable for dialysis patien ts Mail Order Biller ID - BSPOCT-GLUCOSE [id number] 17:24:49 Test Item Value Reference Range Interpretation Comments POC-GLUCOSE METER 133 mg/dL 70-110 H : TESTED A T [facility] 6720 (BEAKER) (test code = [place], 1538) [address]: Mail Order Biller/Techni lisseth ID = [id number] for Stacy Bridges [id number] 14:14:13 Test Item Value Reference Range Interpretation Comments PROCALCITONIN (BEAKER) (test code 2.26 ng/mL <0.05 H = 3036) SEPSIS RISK (ng/mL)Low: 0.05-0.50Intermediate: 0.51-2.00High: >=2.01POCT- GLUCOSE [id number] 12:43:38 Test Item Value Reference Range Interpretation Comments POC-GLUCOSE METER 154 mg/dL 70-110 H : TESTED A T [facility] 6720 (BEAKER) (test code = [facility], 1538) [address]: Mail Order Biller/Techni lisseth ID = [id number] for Stacy Bridges HIGH SENSITIVITY TROPONIN [id number] 11:26:40 Test Item Value Reference Range Interpretation Comments HIGH SENSITIVITY TROPONIN I (test 134 pg/ml <=17 H code = 5110500) Mail Order Biller ID - MMThe CONTINUOUS MINER STAT High Sensitivity Troponin-I results should be used in conjunctionwith other diagnostic information such as ECG, clinical observations and information, and patient symptoms to aid in the diagnosis of NM.LACTIC ACID, [id number] 08:44:09 Test Item Value Reference Range Interpretation Comments LACTATE BLOOD VENOUS 2.16 mmol/L 0.50-2.20 Specime n slightly (2) (BEAKER) (test hemolyzed code = 2872) Mail Order Biller ID - MMHEMOGLOBIN AND [id number] 08:21:51 Test Item Value Reference Range Interpretation Comments HEMOGLOBIN (BEAKER) (test code = 8.2 GM/DL 11.2-15.7 L 410) HEMATOCRIT (BEAKER) (test code = 25.4 % 34.1-44.9 L 411) Mail Order Biller ID - [id number]-GLUCOSE [id number] 05:40:11 Test Item Value Reference Range Interpretation Comments POC-GLUCOSE METER 156 mg/dL 70-110 H : TESTED A T [facility] 6720 (BEAKER) (test code = [facility], 1538) [address]: Mail Order Biller/Techni lisseth ID = [id number] for Ra khoa Forrester COMPREHENSIVE METABOLIC [id number] 04:23:54 Test Item Value Reference Range Interpretation Comments TOTAL PROTEIN 4.1 gm/dL 6.0-8.3 L (BEAKER) (test code = 770) ALBUMIN (BEAKER) 2.4 g/dL 3.5-5.0 L (test code = 1145) ALKALINE 65 U/L 40-150 PHOSPHATASE (BEAKER) (test code = 346) BILIRUBIN TOTAL 0.4 mg/dL 0.2-1.2 (BEAKER) (test code = 377) SODIUM (BEAKER) 133 meq/L 136-145 L (test code = 381) POTASSIUM (BEAKER) 2.8 meq/L 3.5-5.1 L (test code = 379) CHLORIDE (BEAKER) 97 meq/L 98-107 L (test code = 382) CO2 (BEAKER) (test 22 meq/L 22-29 code = 355) BLOOD UREA 41 mg/dL 7-21 H NITROGEN (BEAKER) (test code = 354) CREATININE 8.51 mg/dL 0.57-1.25 H (BEAKER) (test code = 358) GLUCOSE RANDOM 183 mg/dL 70-105 H (BEAKER) (test code = 652) CALCIUM (BEAKER) 7.6 mg/dL 8.4-10.2 L (test code = 697) AST (SGOT) 10 U/L 5-34 (BEAKER) (test code = 353) ALT (SGPT) < U/L 6-55 L (BEAKER) (test code = 347) EGFR (BEAKER) [...] not appl icable for dialysis patien ts Mail Order Biller ID - [id number] 04:20:03 Test Item Value Reference Range Interpretation Comments MAGNESIUM (BEAKER) (test code = 2.1 mg/dL 1.6-2.6 627) Mail Order Biller ID - [id number] 04:20:03 Test Item Value Reference Range Interpretation Comments PHOSPHORUS (BEAKER) (test code = 4.5 mg/dL 2.3-4.7 604) Mail Order Biller ID - MMHEMOGLOBIN AND [id number] 04:14:35 Test Item Value Reference Range Interpretation Comments HEMOGLOBIN (BEAKER) (test code = 5.9 GM/DL 11.2-15.7 LL 410) HEMATOCRIT (BEAKER) (test code = 18.5 % 34.1-44.9 L 411) Mail Order Biller ID - [id number] ID - [id number] W/PLT COUNT & AUTO DIFFERENTIAL 2022-05-28 03:48:27 Test Item Value Reference Range Interpretation Comments WHITE BLOOD CELL COUNT (BEAKER) 7.7 K/ L 3.5-10.5 (test code = 775) RED BLOOD CELL COUNT (BEAKER) 1.97 M/ L 3.93-5.22 L (test code = 761) HEMOGLOBIN (BEAKER) (test code = 5.8 GM/DL 11.2-15.7 LL 410) HEMATOCRIT (BEAKER) (test code = 18.3 % 34.1-44.9 L 411) MEAN CORPUSCULAR VOLUME (BEAKER) 93 fL 79-95 (test code = 753) MEAN CORPUSCULAR HEMOGLOBIN 29.4 pg 25.6-32.2 (BEAKER) (test code = 751) MEAN CORPUSCULAR HEMOGLOBIN CONC 31.7 GM/DL 32.2-35.5 L (BEAKER) (test code = 752) RED CELL DISTRIBUTION WIDTH 17.1 % 11.7-14.4 H (BEAKER) (test code = 412) PLATELET COUNT (BEAKER) (test 127 K/CU MM 150-450 L code = 756) MEAN PLATELET VOLUME (BEAKER) 8.8 fL 9.4-12.3 L (test code = 754) [...] (test code = 437) NEUTROPHILS ABSOLUTE COUNT 6.19 K/ L 1.56-6.13 H (BEAKER) (test code = 670) LYMPHOCYTES ABSOLUTE COUNT 0.94 K/ L 1.18-3.74 L (BEAKER) (test code = 414) MONOCYTES ABSOLUTE COUNT (BEAKER) 0.43 K/ L 0.24-0.36 H (test code = 415) EOSINOPHILS ABSOLUTE COUNT 0.04 K/ L 0.04-0.36 (BEAKER) (test code = 416) BASOPHILS ABSOLUTE COUNT (BEAKER) 0.01 K/ L 0.01-0.08 (test code = 417) IMMATURE GRANULOCYTES-RELATIVE 1.00 % 0.00-1.00 PERCENT (BEAKER) (test code = 2801) POCT-GLUCOSE [id number] 00:32:02 Test Item Value Reference Range Interpretation Comments POC-GLUCOSE METER 186 mg/dL 70-110 H : TESTED A T [facility] 6720 (BEAKER) (test code = [facility], 153) [address]: Mail Order Biller/Techni lisseth ID = [id number] for Ra khoa Forrester POCT-GLUCOSE [id number] 17:52:54 Test Item Value Reference Range Interpretation Comments POC-GLUCOSE METER 157 mg/dL 70-110 H : TESTED A T [facility] 6720 (BEAKER) (test code = [facility], 153) [address]: Mail Order Biller/Techni lisseth ID = [id number] for Negra yates, Stacy POCT-GLUCOSE [id number] 12:25:04 Test Item Value Reference Range Interpretation Comments POC-GLUCOSE METER 128 mg/dL 70-110 H : TESTED A T [facility] 6720 (BEAKER) (test code = [facility], 153) [address]: Mail Order Biller/Techni lisseth ID = [id number] for Lo marcusz, Stacy CORTISOL,60 [id number] 12:06:10 Test Item Value Reference Range Interpretation Comments CORTISOL BASELINE NETWORKED 13.3 mcg/dL (BEAKER) (test code = 2307) CORTISOL 30 MINUTE NETWORKED 23.7 mcg/dL (BEAKER) (test code = 2308) CORTISOL, 60 MINUTE (BEAKER) 27.0 ug/dL (test code = 1805) ACTH STIMULATION TEST INTERPRETATION GUIDELINES(Synonyms: Cortrosyn Test, Cosyntropin or Corticotropin Stimulation Test)Adenocorticotropic hormone (ACTH)is a tropic hormone, made in the pituitary gland, which travels trhough the bloodstream and stimulates the cortex of the adrenal glands to release co rtisol. Cortisol is a primary hormone, which aids the body's metabolism of fats, carbohydrates, and protein as well as sodium and potassium regulation.ACTH Stimulation Test: Exogenous administration ofbiologically active ACTH stimulates the secretion of cortisol from the adrenal gland. This test is used to evaluate adrenal function by measuring cortisol levels at baseline and at 30 and 60 minutes after the administration of 250 micrograms of cosyntropin (Cortrosyn). Patients who have received exogenous corticosteroids immediately prior to performing the ACTH Stimulation Test will often have elevated baseline cortisol levels, which may lead to erroneous interpretation of test results. The notable exception is with dexamethasone.Normal Response: An increase in cortisol after stimulation by ACTH isnormal. Post-stimulation cortisol concentration should be greater than 20 mcg/dL or the rate of risefrom baseline cortisol should be greater than or equal to 9 mcg/dL.Patients with sepsis or septic shock: According to a study by Christine et al (SARA 2000,283(8):1038-45), the ACTH Stimulation Test provides important prognostic information. This study defined 3 groups of patients with sepsis or septic shock: 1. Good Survival: Low basal cortisol (<or=34 mcg/dL) and high ACTH response (>9mcg/dL) 2.Intermediate Survival: Low basal cortisol (<34 mcg/dL) and low response to ACTH (<or=9 mcg/dL)OR High basal cortisol (>34 mcg/dL) or high ACTH response (>9 mcg/dL) 3. Poor Survival: High basal cortisol (>34 mcg/dL) and low ACTH response (<or=9 mcg/dL).Treatment of patients with relative adrenal dysfunction may be indicated based on test results and the clinical condition of the patient. Additional information, including treatment recommendations, is available in critically ill patients, approved by the Pharmacy, Nutrition, and Therapeutics Committee on 02/07/2004 and available through the Pharmacy Policy and Procedure Section on The Source.Mail Order Biller ID - BREANNAOCORTISOL,30 [id number] 11:17:16 Test Item Value Reference Range Interpretation Comments CORTISOL BASELINE NETWORKED 13.3 mcg/dL (BEAKER) (test code = 2307) CORTISOL, 30 MINUTE (BEAKER) 23.7 ug/dL (test code = 1804) ACTH STIMULATION TEST INTERPRETATION GUIDELINES(Synonyms: Cortrosyn Test, Cosyntropin or Corticotropin Stimulation Test)Adenocorticotropic hormone (ACTH)is a tropic hormone, made in the pituitary gland, which travels trhough the bloodstream and stimulates the cortex of the adrenal glands to release co rtisol. Cortisol is a primary hormone, which aids the body's metabolism of fats, carbohydrates, and protein as well as sodium and potassium regulation.ACTH Stimulation Test: Exogenous administration ofbiologically active ACTH stimulates the secretion of cortisol from the adrenal gland. This test is used to evaluate adrenal function by measuring cortisol levels at baseline and at 30 and 60 minutes after the administration of 250 micrograms of cosyntropin (Cortrosyn). Patients who have received exogenous corticosteroids immediately prior to performing the ACTH Stimulation Test will often have elevated baseline cortisol levels, which may lead to erroneous interpretation of test results. The notable exception is with dexamethasone.Normal Response: An increase in cortisol after stimulation by ACTH isnormal. Post-stimulation cortisol concentration should be greater than 20 mcg/dL or the rate of risefrom baseline cortisol should be greater than or equal to 9 mcg/dL.Patients with sepsis or septic shock: According to a study by Christine et al (SARA 2000,283(8):1038-45), the ACTH Stimulation Test provides important prognostic information. This study defined 3 groups of patients with sepsis or septic shock: 1. Good Survival: Low basal cortisol (<or=34 mcg/dL) and high ACTH response (>9mcg/dL) 2.Intermediate Survival: Low basal cortisol (<34 mcg/dL) and low response to ACTH (<or=9 mcg/dL)OR High basal cortisol (>34 mcg/dL) or high ACTH response (>9 mcg/dL) 3. Poor Survival: High basal cortisol (>34 mcg/dL) and low ACTH response (<or=9 mcg/dL).Treatment of patients with relative adrenal dysfunction may be indicated based on test results and the clinical condition of the patient. Additional information, including treatment recommendations, is available in critically ill patients, approved by the Pharmacy, Nutrition, and Therapeutics Committee on 02/07/2004 and available through the Pharmacy Policy and Procedure Section on The Source.Mail Order Biller ID - [id number] Echo W/Doppler(CW/PW/Color)2022-05-27 10:17:15Ejection FractionSLEH ECHO [facility] Echo W/Doppler(CW/PW/Color) 2022-05-27 10:17:15Ejection FractionSLEH ECHO [facility] Echo W/Doppler(CW/PW/Color)2022-05-27 10:17:15Ejection [facility]ractionSLE [facility] 2022-05-27 10:01:33 Test Item Value Reference Range Interpretation Comments VITAMIN B12 (BEAKER) (test code = 519 pg/mL 213816 774) Mail Order Biller ID - [id number] 10:01:33 Test Item Value Reference Range Interpretation Comments FERRITIN (BEAKER) (test code = 1611.41 ng/mL 5.00-275.00 H 361) Mail Order Biller ID - BREANNAOCORTISOL,[id number] 09:55:34 Test Item Value Reference Range Interpretation Comments CORTISOL, BASELINE (BEAKER) (test 13.3 ug/dL code = 1803) ACTH STIMULATION TEST INTERPRETATION GUIDELINES(Synonyms: Cortrosyn Test, Cosyntropin or Corticotropin Stimulation Test)Adenocorticotropic hormone (ACTH)is a tropic hormone, made in the pituitary gland, which travels trhough the bloodstream and stimulates the cortex of the adrenal glands to release co rtisol. Cortisol is a primary hormone, which aids the body's metabolism of fats, carbohydrates, and protein as well as sodium and potassium regulation.ACTH Stimulation Test: Exogenous administration ofbiologically active ACTH stimulates the secretion of cortisol from the adrenal gland. This test is used to evaluate adrenal function by measuring cortisol levels at baseline and at 30 and 60 minutes after the administration of 250 micrograms of cosyntropin (Cortrosyn). Patients who have received exogenous corticosteroids immediately prior to performing the ACTH Stimulation Test will often have elevated baseline cortisol levels, which may lead to erroneous interpretation of test results. The notable exception is with dexamethasone.Normal Response: An increase in cortisol after stimulation by ACTH isnormal. Post-stimulation cortisol concentration should be greater than 20 mcg/dL or the rate of risefrom baseline cortisol should be greater than or equal to 9 mcg/dL.Patients with sepsis or septic shock: According to a study by Christine et al (SARA 2000,283(8):1038-45), the ACTH Stimulation Test provides important prognostic information. This study defined 3 groups of patients with sepsis or septic shock: 1. Good Survival: Low basal cortisol (<or=34 mcg/dL) and high ACTH response (>9mcg/dL) 2.Intermediate Survival: Low basal cortisol (<34 mcg/dL) and low response to ACTH (<or=9 mcg/dL)OR High basal cortisol (>34 mcg/dL) or high ACTH response (>9 mcg/dL) 3. Poor Survival: High basal cortisol (>34 mcg/dL) and low ACTH response (<or=9 mcg/dL).Treatment of patients with relative adrenal dysfunction may be indicated based on test results and the clinical condition of the patient. Additional information, including treatment recommendations, is available in critically ill patients, approved by the Pharmacy, Nutrition, and Therapeutics Committee on 02/07/2004 and available through the Pharmacy Policy and Procedure Section on The Source.Mail Order Biller RAN RUSH, TIBC, % SAT. (WITHOUT FERRITIN)2022-05-27 09:41:47 Test Item Value Reference Range Interpretation Comments IRON (BEAKER) (test code = 547) 62.0 ug/dL 40.0-160.0 TOTAL IRON BINDING CAPACITY 49 ug/dL 250-450 L (BEAKER) (test code = 769) IRON % SATURATION (2) (BEAKER) 127 % 20-55 H (test code = 2590) Mail Order Biller [facility] [id number] 09:41:36 Test Item Value Reference Range Interpretation Comments SODIUM (BEAKER) 134 meq/L 136-145 L (test code = 381) POTASSIUM 3.3 meq/L 3.5-5.1 L (BEAKER) (test code = 379) CHLORIDE (BEAKER) 98 meq/L 98-107 (test code = 382) CO2 (BEAKER) 23 meq/L 22-29 (test code = 355) BLOOD UREA 48 mg/dL 7-21 H NITROGEN (BEAKER) (test code = 354) CREATININE 9.63 mg/dL 0.57-1.25 H (BEAKER) (test code = 358) GLUCOSE RANDOM 121 mg/dL 70-105 H (BEAKER) (test code = 652) CALCIUM (BEAKER) 7.6 mg/dL 8.4-10.2 L (test code = 697) EGFR (BEAKER) 4 Interpretati on of eGFR (test code = mL/min/1.73 values [...] not appl icable for dialysis patien ts Mail Order Biller ID - [id number] 09:37:41 Test Item Value Reference Range Interpretation Comments MAGNESIUM (BEAKER) (test code = 2.2 mg/dL 1.6-2.6 627) Mail Order Biller ID - MARIOLACTIC ACID, [id number] 09:29:50 Test Item Value Reference Range Interpretation Comments LACTATE BLOOD VENOUS (2) (BEAKER) 3.39 mmol/L 0.50-2.20 H (test code = 2872) Mail Order Biller ID - MARIORETICULOCYTE [id number] 09:26:58 Test Item Value Reference Range Interpretation Comments RETICULOCYTE COUNT PCT (BEAKER) (test 5.1 % 0.5-1.7 H code = 575) Mail Order Biller ID - 6000LACTIC ACID, [id number] 06:57:49 Test Item Value Reference Range Interpretation Comments LACTATE BLOOD VENOUS (2) (BEAKER) 3.57 mmol/L 0.50-2.20 H (test code = 2872) Mail Order Biller ID - MARIOCT, [id number] 05:52:00Septic with recurrent vomitingUnlisted Reason for Exam - Click Yes and Enter Reason Below->NoProto col Please Specify:->Standard ProtocolWill this procedure require oral contrast?->NoBINH [facility] REAL : 1940 Sex: FFINAL REPORT TECHNIQUE: CT of the abdomen and pelvis WITHOUT intravenous contrast and WITHOUT oral contrast. Dose modulation, iterative reconstruction, and/or weight-based adjustment ofthe mA/kV was utilized to reduce the radiation dose to as low as reasonably achievable. INDICATION: UTI, recurrent/complicated (Female). COMPARISON: None. FINDINGS: ABSENCE OF INTRAVENOUS CONTRAST DECREASES SENSITIVITY FOR DETECTION OF FOCAL LESIONS AND VASCULAR PATHOLOGY. LOWER THORAX: Mild bilateraldependent atelectasis with trace bilateral pleural effusions. Marked coronary atherosclerotic calcifications. Partially imaged AICD lead. HEPATOBILIARY: No focal hepatic lesions. Gallbladder is unremarkable. No biliary ductal dilatation.SPLEEN: No splenomegaly.PANCREAS: No focal masses or ductal dilatation. ADRENALS: No adrenal nodules.KIDNEYS/URETERS: No hydronephrosis, stones, or exophytic masses. Both kidneys are atrophic.PELVIC ORGANS/BLADDER: [place] catheter present within the decompressed bladder. Uterus is absent. PERITONEUM/RETROPERITONEUM: No organized collection or free air. Peritoneal dial ysis catheter present within the right hemiabdomen.LYMPH NODES: No lymphadenopathy.VESSELS: Moderateatherosclerotic calcifications of the aorta and branching vessels without aneurysmal dilatation. GI TRACT: Enteric tube terminates in the gastric antrum. No distention or wall thickening of the stomachor small bowel. Scattered diverticula of the left colon with mild peridiverticular stranding in the left lower quadrant compatible with acute diverticulitis. No fluid collections or evidence of perforation. Appendix not identified. No secondary signs of appendicitis. BONES AND SOFT TISSUES: No acute osseous abnormality. Soft tissues are unremarkable. IMPRESSION: 1. Uncomplicated mild colonic diverticulitis. 2. Trace bilateral pleural effusions. 3. Atrophic kidneys. Signed: Keely Gamboa MDReport Verified Date/Time: 05/27/2022 05:52:35 POCT-GLUCOSE [id number] 05:39:24 Test Item Value Reference Range Interpretation Comments POC-GLUCOSE METER 171 mg/dL 70-110 H : TESTED A T [facility] 6720 (BEAKER) (test code = [place], 1538) [address]: Mail Order Biller/Techni lisseth ID = [id number] for Ra Usama cherylnurys RAD, ABDOMEN/KUB, 1 VIEW [id number] 04:04:00Reason for exam:->NGT placement [facility] : 1940 Sex: FFINALREPORT TECHNIQUE: Supine views of the abdomen. INDICATION: NGT placement. COMPARISON: 03/19/2022. FINDINGS/IMPRESSION: The nasogastric tube terminates within the distal gastric bodyand sidehole is in stomach. Bowel gas pattern is nonobstructive. Right femoral approach central venous catheter overlies the right common iliac vein. Peritoneal dialysis catheter overlies the right lower quadrant. Signed: Keely Gamboa Verified Date/Time: 05/27/2022 04:04:36 CORTISOL 2022-05-27 03:20:20 Test Item Value Reference Range Interpretation Comments CORTISOL, TOTAL (BEAKER) (test 16.0 ug/dL 3.7-19.4 code = 2755) Mail Order Biller ID - DBCOMPREHENSIVE METABOLIC [id number] 03:06:14 Test Item Value Reference Range Interpretation Comments TOTAL PROTEIN 4.3 gm/dL 6.0-8.3 L (BEAKER) (test code = 770) ALBUMIN (BEAKER) 1.9 g/dL 3.5-5.0 L (test code = 1145) ALKALINE 74 U/L 40-150 PHOSPHATASE (BEAKER) (test code = 346) BILIRUBIN TOTAL 0.3 mg/dL 0.2-1.2 (BEAKER) (test code = 377) SODIUM (BEAKER) 129 meq/L 136-145 L (test code = 381) POTASSIUM (BEAKER) 3.1 meq/L 3.5-5.1 L (test code = 379) CHLORIDE (BEAKER) 94 meq/L 98-107 L (test code = 382) CO2 (BEAKER) (test 18 meq/L 22-29 L code = 355) BLOOD UREA 47 mg/dL 7-21 H NITROGEN (BEAKER) (test code = 354) CREATININE 9.54 mg/dL 0.57-1.25 H (BEAKER) (test code = 358) GLUCOSE RANDOM 370 mg/dL 70-105 H (BEAKER) (test code = 652) CALCIUM (BEAKER) 6.8 mg/dL 8.4-10.2 L (test code = 697) AST (SGOT) 12 U/L 5-34 (BEAKER) (test code = 353) [...] not appl icable for dialysis patien ts Mail Order Biller ID - [id number] 03:04:59 Test Item Value Reference Range Interpretation Comments PHOSPHORUS (BEAKER) (test code = 5.4 mg/dL 2.3-4.7 H 604) Mail Order Biller ID - [id number] 03:04:58 Test Item Value Reference Range Interpretation Comments MAGNESIUM (BEAKER) (test code = 2.2 mg/dL 1.6-2.6 627) Mail Order Biller ID - DBLACTIC ACID, [id number] 02:47:33 Test Item Value Reference Range Interpretation Comments LACTATE BLOOD VENOUS 3.61 mmol/L 0.50-2.20 H Specime n slightly (2) (BEAKER) (test hemolyzed code = 2872) Mail Order Biller ID - DBCBC W/PLT COUNT & AUTO [id number] 02:38:24 Test Item Value Reference Range Interpretation Comments WHITE BLOOD CELL COUNT (BEAKER) 14.1 K/ L 3.5-10.5 H (test code = 775) RED BLOOD CELL COUNT (BEAKER) 2.68 M/ L 3.93-5.22 L (test code = 761) HEMOGLOBIN (BEAKER) (test code = 7.7 GM/DL 11.2-15.7 L 410) HEMATOCRIT (BEAKER) (test code = 24.0 % 34.1-44.9 L 411) MEAN CORPUSCULAR VOLUME (BEAKER) 90 fL 79-95 (test code = 753) MEAN CORPUSCULAR HEMOGLOBIN 28.7 pg 25.6-32.2 (BEAKER) (test code = 751) MEAN CORPUSCULAR HEMOGLOBIN CONC 32.1 GM/DL 32.2-35.5 L (BEAKER) (test code = 752) RED CELL DISTRIBUTION WIDTH 16.8 % 11.7-14.4 H (BEAKER) (test code = 412) PLATELET COUNT (BEAKER) (test 186 K/CU MM 150-450 code = 756) MEAN PLATELET VOLUME (BEAKER) 8.3 fL 9.4-12.3 L (test code = 754) NUCLEATED RED BLOOD CELLS 0 /100 WBC 0-0 (BEAKER) (test code = 413) NEUTROPHILS RELATIVE PERCENT 87 % (BEAKER) (test code = 429) LYMPHOCYTES RELATIVE PERCENT 7 % (BEAKER) (test code = 430) MONOCYTES RELATIVE PERCENT 5 % (BEAKER) (test code = 431) EOSINOPHILS RELATIVE PERCENT 0 % (BEAKER) (test code = 432) BASOPHILS RELATIVE PERCENT 0 % (BEAKER) (test code = 437) NEUTROPHILS ABSOLUTE COUNT 12.19 K/ L 1.56-6.13 H (BEAKER) (test code = 670) LYMPHOCYTES ABSOLUTE COUNT 0.99 K/ L 1.18-3.74 L (BEAKER) (test code = 414) MONOCYTES ABSOLUTE COUNT (BEAKER) 0.75 K/ L 0.24-0.36 H (test code = 415) EOSINOPHILS ABSOLUTE COUNT 0.01 K/ L 0.04-0.36 L (BEAKER) (test code = 416) BASOPHILS ABSOLUTE COUNT (BEAKER) 0.02 K/ L 0.01-0.08 (test code = 417) IMMATURE GRANULOCYTES-RELATIVE 0.90 % 0.00-1.00 PERCENT (BEAKER) (test code = 2801) POCT-GLUCOSE [id number] 00:17:49 Test Item Value Reference Range Interpretation Comments POC-GLUCOSE METER 298 mg/dL 70-110 H : TESTED A T [facility] 6720 (BEAKER) (test code = [place] [facility], 1538) [address]: Mail Order Biller/Techni lisseth ID = [id number] for Usama Ra couch KETONE, [id number] 00:13:47 Test Item Value Reference Range Interpretation Comments KETONES, BLOOD (BEAKER) (test code 0.3 mmol/L <0.4 = 1103) TSH/FREE T4 IF [id number] 23:31:10 Test Item Value Reference Range Interpretation Comments THYROID STIMULATING HORMONE 4.342 uIU/mL 0.350-4.940 (BEAKER) (test code = 772) Mail Order Biller ID - DBLACTIC ACID, [id number] 23:13:23 Test Item Value Reference Range Interpretation Comments LACTATE BLOOD VENOUS (2) (BEAKER) 5.67 mmol/L 0.50-2.20 HH (test code = 2872) Mail Order Biller ID - DBUrinalysis w/Microscopic + Reflex to [id number] 22:03:07 Test Item Value Reference Range Interpretation Comments Color, UA (test code [place] = 5778-6) Clarity, UA (test Cloudy code = 5767-9) Specific Amo, UA 1.018 1.001-1.035 (test code = 5811-5) pH, UA (test code = 7.5 5.0-8.0 5803-2) Protein, UA (test 200 mg/dL Negative A code = 01786-5) Glucose, UA (test Negative Negative code = 365) Ketones, UA (test Negative Negative code = 2514-8) Bilirubin, UA (test Negative Negative code = 24673-0) Blood, UA (test code Moderate Negative A = 40827-1) Nitrite, UA (test Negative Negative code = 5802-4) Leukocytes, UA (test Large Negative A code = 5799-2) Urobilinogen, UA 0.2 0.2-1.0 (test code = 45409-1) RBC, UA (test code = 0 See_Comment [Autom ated 33587-3) message] The system which generated this result transmit geeta reference range : /HPF. The reference range was not used to interpret this result as normal/abnormal . WBC, UA (test code = See_Comment [Autom ated 5821-4) message] The system which generated this result transmit geeta reference range : /HPF. The reference range was not used to interpret this result as normal/abnormal . Specimen Source (test code = 2795) BETH (test code = BETH) Mail Order Biller ID - [auto]Mail Order Biller ID - tech Lab Interpretation Abnormal (test code = 51846-4) [facility] Reflex to Culture 2022-05-26 22:03:07 Test Item Value Reference Range Interpretation Comments Color, UA (test code [place] = 5778-6) Clarity, UA (test Cloudy code = 5767-9) Specific Amo, UA 1.018 1.001-1.035 (test code = 5811-5) pH, UA (test code = 7.5 5.0-8.0 5803-2) Protein, UA (test 200 mg/dL Negative A code = 84347-9) Glucose, UA (test Negative Negative code = 365) Ketones, UA (test Negative Negative code = 2514-8) Bilirubin, UA (test Negative Negative code = 14601-6) Blood, UA (test code Moderate Negative A = 19159-5) Nitrite, UA (test Negative Negative code = 5802-4) Leukocytes, UA (test Large Negative A code = 5799-2) Urobilinogen, UA 0.2 0.2-1.0 (test code = 30363-9) RBC, UA (test code = 0 See_Comment [Autom ated 20425-6) message] The system which generated this result transmit geeta reference range : /HPF. The reference range was not used to interpret this result as normal/abnormal . WBC, UA (test code = See_Comment [Autom ated 5821-4) message] The system which generated this result transmit geeta reference range : /HPF. The reference range was not used to interpret this result as normal/abnormal . Specimen Source (test code = 2795) BETH (test code = BETH) Mail Order Biller ID - [auto]Mail Order Biller ID - tech Lab Interpretation Abnormal (test code = 97728-4) [facility] URINE [id number] 22:03:07 Test Item Value Reference Range Interpretation Comments COLOR (BEAKER) (test code = 470) [place] CLARITY (BEAKER) (test code = 469) Cloudy SPECIFIC GRAVITY UA (BEAKER) (test 1.018 1.001-1.035 code = 468) PH UA (BEAKER) (test code = 467) 7.5 5.0-8.0 PROTEIN UA (BEAKER) (test code = 200 mg/dL Negative A 464) GLUCOSE UA (BEAKER) (test code = Negative Negative 365) KETONES UA (BEAKER) (test code = Negative Negative 371) BILIRUBIN UA (BEAKER) (test code = Negative Negative 462) BLOOD UA (BEAKER) (test code = 461) Moderate Negative A NITRITE UA (BEAKER) (test code = Negative Negative 465) LEUKOCYTE ESTERASE UA (BEAKER) Large Negative A (test code = 466) UROBILINOGEN UA (BEAKER) (test code 0.2 0.2-1.0 = 463) RBC UA (BEAKER) (test code = 519) 0 /HPF WBC UA (BEAKER) (test code = 520) < /HPF SOURCE(BEAKER) (test code = 2795) Mail Order Biller ID - [auto]Mail Order Biller ID - [id number] 21:30:51 Test Item Value Reference Range Interpretation Comments PROCALCITONIN (BEAKER) (test code 1.90 ng/mL <0.05 H = 3036) SEPSIS RISK (ng/mL)Low: 0.05-0.50Intermediate: 0.51-2.00High: >=2.01B-TYPE NATRIURETIC FACTOR (BNP)2022-05-26 21:20:56 Test Item Value Reference Range Interpretation Comments B-TYPE NATRIURETIC PEPTIDE 1233 pg/mL 0-100 H (BEAKER) (test code = 700) Mail Order Biller ID - [id number] 21:13:39 Test Item Value Reference Range Interpretation Comments LIPASE (BEAKER) (test code = 749) 61 U/L 8-78 Mail Order Biller ID - DBRAD, CHEST, 1 VIEW, NON [id number] 21:05:00Reason for exam:- >sobShould this be performed at the bedside?->Yes [facility] : 1940 Sex: FFINALREPORT INDICATION: sob COMPARISON: None TECHNIQUE: Single frontal view of the chest. FINDINGS: Lungs and pleura: Clear lungs. No effusion. Heart and mediastinum: Stable cardiomediastinal silhouette with left subclavian pacemaker. Osseous structures: No acute abnormality. Other: None. IMPRESSION: No acute intrathoracic abnormality. Signed: Keely Gamboaconor Verified Date/Time: 05/26/2022 21:05:57 BLOOD GAS, [id number] 20:52:44 Test Item Value Reference Range Interpretation Comments PH VENOUS (BEAKER) (test code = 7.32 7.32-7.42 701) PCO2 VENOUS (BEAKER) (test code = 42 mm Hg 41-51 755) PO2 VENOUS (BEAKER) (test code = 41 mm Hg 25-40 H 702) O2 SATURATION VENOUS (BEAKER) 71.4 % 40.0-70.0 H (test code = 703) HCO3 VENOUS (BEAKER) (test code = 21 mmol/L -29 705) BASE EXCESS VENOUS (BEAKER) (test -4.6 mmol/L -2.0-3.0 L code = 704) PATIENT TEMPERATURE (BEAKER) 37.0 (test code = 1818) FIO2 (BEAKER) (test code = 1819) 21.0 LACTIC ACID, [id number] 20:34:37 Test Item Value Reference Range Interpretation Comments LACTATE BLOOD VENOUS (2) (BEAKER) 4.72 mmol/L 0.50-2.20 HH (test code = 2872) Mail Order Biller ID - ADMINCOMPREHENSIVE METABOLIC [id number] 20:33:47 Test Item Value Reference Range Interpretation Comments TOTAL PROTEIN 4.7 gm/dL 6.0-8.3 L (BEAKER) (test code = 770) ALBUMIN (BEAKER) 2.1 g/dL 3.5-5.0 L (test code = 1145) ALKALINE 79 U/L 40-150 PHOSPHATASE (BEAKER) (test code = 346) BILIRUBIN TOTAL 0.3 mg/dL 0.2-1.2 (BEAKER) (test code = 377) SODIUM (BEAKER) 135 meq/L 136-145 L (test code = 381) POTASSIUM (BEAKER) 3.1 meq/L 3.5-5.1 L (test code = 379) CHLORIDE (BEAKER) 98 meq/L 98-107 (test code = 382) CO2 (BEAKER) (test 17 meq/L 22-29 L code = 355) BLOOD UREA 48 mg/dL 7-21 H NITROGEN (BEAKER) (test code = 354) CREATININE 9.95 mg/dL 0.57-1.25 H (BEAKER) (test code = 358) GLUCOSE RANDOM 345 mg/dL 70-105 H (BEAKER) (test code = 652) CALCIUM (BEAKER) 7.0 mg/dL 8.4-10.2 L (test code = 697) AST (SGOT) 13 U/L 5-34 (BEAKER) (test code = 353) ALT (SGPT) 8 U/L 6-55 (BEAKER) (test code = 347) EGFR (BEAKER) 4 Interpretatio n of eGFR (test code = 1092) mL/min/1.[address] age Description sq m Result G1 Iris l or high >=90 G2 Mildly decreased 60-89 G3a Mild ly to moderately 45-5 9 G3b Moderately to [...] not appl icable for dialysis patien ts Mail Order Biller ID - [id number] 20:33:13 Test Item Value Reference Range Interpretation Comments MAGNESIUM (BEAKER) (test code = 2.2 mg/dL 1.6-2.6 627) Mail Order Biller ID - [id number] 20:33:13 Test Item Value Reference Range Interpretation Comments PHOSPHORUS (BEAKER) (test code = 6.2 mg/dL 2.3-4.7 H 604) Mail Order Biller ID - ADMINPOCT-GLUCOSE [id number] 20:31:48 Test Item Value Reference Range Interpretation Comments POC-GLUCOSE METER 130 mg/dL 70-110 H : TESTED A T [facility] 6720 (BEAKER) (test code = [place], 1538) [address]: Mail Order Biller/Techni lisseth ID = [id number] for Ra khoa Forrester PROTHROMBIN [id number] 20:30:52 Test Item Value Reference Range Interpretation Comments PROTIME (BEAKER) (test code = 16.0 seconds 11.9-14.2 H 759) INR (BEAKER) (test code = 370) 1.36 <=5.90 RECOMMENDED COUMADIN/WARFARIN INR THERAPY RANGESSTANDARD DOSE: 2.0 - 3.0 Includes: PROPHYLAXIS for venous thrombosis, systemic embolization; TREATMENT for venous thrombosis and/or pulmonary embolus.HIGH RISK: Target INR is 2.5-3.5 for patients with mechanical heart valves.CALCIUM, [id number] 20:27:40 Test Item Value Reference Range Interpretation Comments CALCIUM IONIZED (BEAKER) (test 0.90 mmol/L 1.12-1.27 L code = 698) PH, BLOOD (BEAKER) (test code = 7.32 1810) POC-Glucose [id number] 06:23:21 Test Item Value Reference Range Interpretation Comments POC-Glucose Meter (test 213 mg/dL 70-110 H : No tified RN/MD: code = 1538) TESTED AT [address] [address]: Mail Order Biller/Techni lisseth ID = [id number] for Pollo Bob sharmaine Lab Interpretation (test Abnormal code = 36525-9) [facility] [id number] 06:23:21 Test Item Value Reference Range Interpretation Comments POC-GLUCOSE METER 213 mg/dL 70-110 H : Notified RN/MD: TESTED (BEAKER) (test code AT [address] = 1538) [facility] [address]: Mail Order Biller/Techni lisseth ID = [id number] for Cynthia Lozoya BASIC METABOLIC [id number] 05:01:25 Test Item Value Reference Range Interpretation Comments SODIUM (BEAKER) 131 meq/L 135-148 L (test code = 381) POTASSIUM 5.0 meq/L 3.6-5.5 (BEAKER) (test code = 379) CHLORIDE (BEAKER) 96 meq/L 98-106 L (test code = 382) CO2 (BEAKER) 22 meq/L 20-29 (test code = 355) BLOOD UREA 60 mg/dL 10-26 H NITROGEN (BEAKER) (test code = 354) CREATININE 8.42 mg/dL 0.50-1.20 H (BEAKER) (test code = 358) GLUCOSE RANDOM 245 mg/dL 70-110 H (BEAKER) (test code = 652) CALCIUM (BEAKER) 8.1 mg/dL 8.5-10.5 L (test code = 697) [...] not appl icable for dialysis patien ts Mail Order Biller ID - LITOOperator ID - LITOOperator ID - LITOOperator ID - LITOOperator ID - LITOOperator ID - LITOOperator ID - LITOOperator ID - LITOOperator ID - LITOOperator ID - [id number] 04:53:13 Test Item Value Reference Range Interpretation Comments MAGNESIUM (BEAKER) (test code = 2.0 mg/dL 1.5-3.0 627) Mail Order Biller ID - LITOOperator ID - LITOOperator ID - LITOOperator ID - LITOCBC (HEMOGRAM ONLY)2022-03-31 04:51:33 Test Item Value Reference Range Interpretation Comments WHITE BLOOD CELL COUNT (BEAKER) 5.3 K/ L 4.0-10.0 (test code = 775) RED BLOOD CELL COUNT (BEAKER) 2.56 M/ L 4.00-5.00 L (test code = 761) HEMOGLOBIN (BEAKER) (test code = 7.7 GM/DL 12.0-15.5 L 410) HEMATOCRIT (BEAKER) (test code = 23.6 % 36.0-46.0 L 411) MEAN CORPUSCULAR VOLUME (BEAKER) 92 fL 82-99 (test code = 753) MEAN CORPUSCULAR HEMOGLOBIN 30.1 pg 27.0-33.0 (BEAKER) (test code = 751) MEAN CORPUSCULAR HEMOGLOBIN CONC 32.6 GM/DL 32.0-36.0 (BEAKER) (test code = 752) RED CELL DISTRIBUTION WIDTH 15.4 % 12.0-15.0 H (BEAKER) (test code = 412) PLATELET COUNT (BEAKER) (test 158 K/CU MM 150-430 code = 756) MEAN PLATELET VOLUME (BEAKER) 8.1 fL 6.0-11.5 (test code = 754) NUCLEATED RED BLOOD CELLS 0 /100 WBC 0-0 (BEAKER) (test code = 413) [id number] 04:50:27 Test Item Value Reference Range Interpretation Comments PHOSPHORUS (BEAKER) (test code = 5.8 mg/dL 2.5-4.5 H 604) Mail Order Biller ID - LITOPOCT-GLUCOSE [id number] 22:03:13 Test Item Value Reference Range Interpretation Comments POC-GLUCOSE METER 226 mg/dL 70-110 H : Notified RN/MD: TESTED (BEAKER) (test code AT [facility] [address] = 1538) [place] [address]: Mail Order Biller/Techni lisseth ID = [id number] for Cynthia Lozoya POCT-GLUCOSE [id number] 16:03:17 Test Item Value Reference Range Interpretation Comments POC-GLUCOSE METER 180 mg/dL 70-110 H : TESTED A T [facility] [address] (BEAKER) (test code [address] [facility], = 1538) [place] 6[address]258: Mail Order Biller/Techni lisseth ID = [id number] for [place], Kayli POCT-GLUCOSE [id number] 11:17:37 Test Item Value Reference Range Interpretation Comments POC-GLUCOSE METER 273 mg/dL 70-110 H : TESTED A T [facility] [address] (BEAKER) (test code [address] [facility], = 1538) [place] 684258: Mail Order Biller/Techni lisseth ID = [id number] for [place], Kayli POCT-GLUCOSE [id number] 06:14:40 Test Item Value Reference Range Interpretation Comments POC-GLUCOSE METER 211 mg/dL 70-110 H : TESTED A T [facility] [address] (BEAKER) (test code [address] [facility], = 1538) [place] [address]: Mail Order Biller/Techni lisseth ID = [id number] for Jacque prado Walker [id number] 05:46:53 Test Item Value Reference Range Interpretation Comments MAGNESIUM (BEAKER) (test code = 1.8 mg/dL 1.5-3.0 627) Mail Order Biller ID - [id number] ID - [id number] ID - CNLRUKSPB608Xmaosvgw ID - JERXUJMWT971BOVML METABOLIC [id number] 05:45:54 Test Item Value Reference Range Interpretation Comments SODIUM (BEAKER) 131 meq/L 135-148 L (test code = 381) POTASSIUM 4.8 meq/L 3.6-5.5 (BEAKER) (test code = 379) CHLORIDE (BEAKER) 95 meq/L 98-106 L (test code = 382) CO2 (BEAKER) 22 meq/L 20-29 (test code = 355) BLOOD UREA 58 mg/dL 10-26 H NITROGEN (BEAKER) (test code = 354) CREATININE 8.25 mg/dL 0.50-1.20 H (BEAKER) (test code = 358) GLUCOSE RANDOM 231 mg/dL 70-110 H (BEAKER) (test code = 652) CALCIUM (BEAKER) 8.3 mg/dL 8.5-10.5 L (test code = 697) [...] not appl icable for dialysis patien ts Mail Order Biller ID - [id number] ID - [id number] ID - [id number] ID - [id number] ID - [id number] ID - [id number] ID - [id number] ID - [id number] ID - [id number] ID - [id number] 05:44:15 Test Item Value Reference Range Interpretation Comments PHOSPHORUS (BEAKER) (test code = 6.0 mg/dL 2.5-4.5 H 604) Mail Order Biller ID - [id number]-SDQSVCB [id number] 20:42:56 Test Item Value Reference Range Interpretation Comments POC-GLUCOSE METER 244 mg/dL 70-110 H : TESTED A T [facility] [address] (BEAKER) (test code [address], = 1538) [place] [address]258: Mail Order Biller/Techni lisseth ID = [id number] for Aurea Byrne POCT-GLUCOSE [id number] 16:49:16 Test Item Value Reference Range Interpretation Comments POC-GLUCOSE METER 209 mg/dL 70-110 H : TESTED A T [facility] [address] (BEAKER) (test code [address], = 1538) [place] [address]258: Mail Order Biller/Techni lisseth ID = [id number] for Kary Grant POCT-GLUCOSE [id number] 12:15:24 Test Item Value Reference Range Interpretation Comments POC-GLUCOSE METER 208 mg/dL 70-110 H : TESTED A T [facility] [address] (BEAKER) (test code [address], = 1538) [place] [address]258: Mail Order Biller/Techni lisseth ID = [id number] for Bessy Nelson POCT-GLUCOSE [id number] 06:36:34 Test Item Value Reference Range Interpretation Comments POC-GLUCOSE METER 210 mg/dL 70-110 H : TESTED A T [facility] [address] (BEAKER) (test code [address], = 1538) [place] [address]258: Mail Order Biller/Techni lisseth ID = [id number] for Gabriela Otero BASIC METABOLIC [id number] 04:40:53 Test Item Value Reference Range Interpretation Comments SODIUM (BEAKER) 130 meq/L 135-148 L (test code = 381) POTASSIUM 4.7 meq/L 3.6-5.5 (BEAKER) (test code = 379) CHLORIDE (BEAKER) 94 meq/L 98-106 L (test code = 382) CO2 (BEAKER) 22 meq/L 20-29 (test code = 355) BLOOD UREA 55 mg/dL 10-26 H NITROGEN (BEAKER) (test code = 354) CREATININE 8.11 mg/dL 0.50-1.20 H (BEAKER) (test code = 358) GLUCOSE RANDOM 265 mg/dL 70-110 H (BEAKER) (test code = [...] not appl icable for dialysis patien ts Mail Order Biller ID - XXHN93Rlgjlaeh ID - UFGG77Bvmngiuz ID - ZWPU63Xuuvywji ID - MIMP13Pswkvspd ID - RYVU30Utfdfwco ID - FSMA92Rfcmeodl ID - BPEY31Uttavizr ID - QNDA19Ndtsusms ID - JWMA05Rnxhvepl ID - [id number] 04:24:55 Test Item Value Reference Range Interpretation Comments MAGNESIUM (BEAKER) (test code = 1.8 mg/dL 1.5-3.0 627) Mail Order Biller ID - ODKR73Dwwuaetn ID - HMZO86Asnymunv ID - PDWD39Cpicfyfu ID - [id number] [id number] 04:22:40 Test Item Value Reference Range Interpretation Comments PHOSPHORUS (BEAKER) (test code = 5.8 mg/dL 2.5-4.5 H 604) Mail Order Biller ID - [id number] (HEMOGRAM ONLY)2022-03-29 04:13:21 Test Item Value Reference Range Interpretation Comments WHITE BLOOD CELL COUNT (BEAKER) 4.7 K/ L 4.0-10.0 (test code = 775) RED BLOOD CELL COUNT (BEAKER) 2.44 M/ L 4.00-5.00 L (test code = 761) HEMOGLOBIN (BEAKER) (test code = 7.4 GM/DL 12.0-15.5 L 410) HEMATOCRIT (BEAKER) (test code = 22.4 % 36.0-46.0 L 411) MEAN CORPUSCULAR VOLUME (BEAKER) 92 fL 82-99 (test code = 753) MEAN CORPUSCULAR HEMOGLOBIN 30.3 pg 27.0-33.0 (BEAKER) (test code = 751) MEAN CORPUSCULAR HEMOGLOBIN CONC 33.0 GM/DL 32.0-36.0 (BEAKER) (test code = 752) RED CELL DISTRIBUTION WIDTH 15.5 % 12.0-15.0 H (BEAKER) (test code = 412) PLATELET COUNT (BEAKER) (test 165 K/CU MM 150-430 code = 756) MEAN PLATELET VOLUME (BEAKER) 8.5 fL 6.0-11.5 (test code = 754) NUCLEATED RED BLOOD CELLS 0 /100 WBC 0-0 (BEAKER) (test code = 413) POCT-GLUCOSE [id number] 21:11:19 Test Item Value Reference Range Interpretation Comments POC-GLUCOSE METER 330 mg/dL 70-110 H : TESTED A T [facility] 1317 (BEAKER) (test code [facility], = 1538) [place] [id number]: Mail Order Biller/Techni lisseth ID = [id number] for Stefan murciaGabriela POCT-GLUCOSE [id number] 17:07:31 Test Item Value Reference Range Interpretation Comments POC-GLUCOSE METER 180 mg/dL 70-110 H : TESTED A T [facility] 1317 (BEAKER) (test code [facility], = 1538) [place] [id number]: Mail Order Biller/Techni lisseth ID = [id number] for [place], Kayli POCT-GLUCOSE [id number] 11:37:27 Test Item Value Reference Range Interpretation Comments POC-GLUCOSE METER 230 mg/dL 70-110 H : TESTED A T [facility] 1317 (BEAKER) (test code [facility], = 1538) [place] [id number]: Mail Order Biller/Techni lisseth ID = [id number] for [place], Kayli POCT-GLUCOSE [id number] 06:59:10 Test Item Value Reference Range Interpretation Comments POC-GLUCOSE METER 143 mg/dL 70-110 H : TESTED A T [facility] 1317 (BEAKER) (test code [facility], = 1538) [facility] [phone]: Mail Order Biller/Techni lisseth ID = [id number] for Gabriela Otero BASIC METABOLIC [id number] 05:41:27 Test Item Value Reference Range Interpretation Comments SODIUM (BEAKER) 131 meq/L 135-148 L (test code = 381) POTASSIUM 4.7 meq/L 3.6-5.5 (BEAKER) (test code = 379) CHLORIDE (BEAKER) 94 meq/L 98-106 L (test code = 382) CO2 (BEAKER) 23 meq/L 20-29 (test code = 355) BLOOD UREA 51 mg/dL 10-26 H NITROGEN (BEAKER) (test code = 354) CREATININE 7.66 mg/dL 0.50-1.20 H (BEAKER) (test code = 358) GLUCOSE RANDOM 158 mg/dL 70-110 H (BEAKER) (test code = 652) CALCIUM (BEAKER) 8.0 mg/dL 8.5-10.5 L (test code = 697) [...] not appl icable for dialysis patien ts Mail Order Biller ID - [id number] ID - [id number] ID - [id number] ID - [id number] ID - [id number] ID - PISIEVRQJ249Cmcyqtgq ID - JVGGUKATL644Yeqgagau ID - [id number] ID - AHGSYCPWN979Lgchtqwq ID - [id number] 05:39:21 Test Item Value Reference Range Interpretation Comments MAGNESIUM (BEAKER) (test code = 1.7 mg/dL 1.5-3.0 627) Mail Order Biller ID - [id number] ID - [id number] ID - PFJGFWJSV267Quqgqxxv ID - [id number] 05:36:14 Test Item Value Reference Range Interpretation Comments PHOSPHORUS (BEAKER) (test code = 5.9 mg/dL 2.5-4.5 H 604) Mail Order Biller ID - [id number] [id number] 23:55:00 Test Item Value Reference Range Interpretation Comments CROSSMATCH (test code = 2264) COMPATIBLE Unit ABO (test code = A Neg 3510642) UNIT NUMBER (test code = [id number] 934-0) Status (test code = 7360347) TX_TIMEINCHART Blood Bank Product (test code RED BLOOD CELLS = 2263) PRODUCT CODE (test code = S1202P08 933-2) [facility] [id number] 23:55:00 Test Item Value Reference Range Interpretation Comments CROSSMATCH (test code = 2264) COMPATIBLE Unit ABO (test code = A Neg 3515772) UNIT NUMBER (test code = [id number] 934-0) Status (test code = 6773460) TX_TIMEINCHART Blood Bank Product (test code RED BLOOD CELLS = 2263) PRODUCT CODE (test code = C5724Q35 933-2) [facility] [id number] 23:55:00 Test Item Value Reference Range Interpretation Comments CROSSMATCH (test code = 2264) COMPATIBLE Unit ABO (test code = A Neg 0321943) UNIT NUMBER (test code = [id number] 934-0) Status (test code = 0558701) TX_TIMEINCHART Blood Bank Product (test code RED BLOOD CELLS = 2263) PRODUCT CODE (test code = V9342D17 933-2) [facility] [id number] 23:55:00 Test Item Value Reference Range Interpretation Comments CROSSMATCH (test code = 2264) COMPATIBLE Unit ABO (test code = A Neg 6577976) UNIT NUMBER (test code = [id number] 934-0) Status (test code = 6095559) [place] Blood Bank Product (test code RED BLOOD CELLS = 2263) PRODUCT CODE (test code = Y4532P25 933-2) [facility] [id number] 21:13:42 Test Item Value Reference Range Interpretation Comments POC-GLUCOSE METER 201 mg/dL 70-110 H : TESTED A T [address] (BEAKER) (test code [address], = 1538) [place] [address]: Mail Order Biller/Techni lisseth ID = [id number] for Gabriela Otero POCT-GLUCOSE [id number] 17:56:39 Test Item Value Reference Range Interpretation Comments POC-GLUCOSE METER 99 mg/dL 70-110 : TESTED A T [address] (BEAKER) (test code = [address], [address]) [place] [address]: Mail Order Biller/Techni lisseth ID = [id number] for Camila Mattie POCT-GLUCOSE [id number] 12:29:01 Test Item Value Reference Range Interpretation Comments POC-GLUCOSE METER 228 mg/dL 70-110 H : TESTED A T [address] (BEAKER) (test code [address], = 1538) [place] [address]: Mail Order Biller/Techni lisseth ID = [id number] for Nathaniel Elizabeth POCT-GLUCOSE [id number] 07:09:45 Test Item Value Reference Range Interpretation Comments POC-GLUCOSE METER 203 mg/dL 70-110 H : TESTED A T [address] (BEAKER) (test code [address], = 1538) [place] [address]: Mail Order Biller/Techni lisseth ID = [id number] for Nadia Basurto BASIC METABOLIC [id number] 06:42:42 Test Item Value Reference Range Interpretation Comments SODIUM (BEAKER) 128 meq/L 135-148 L (test code = 381) POTASSIUM 4.6 meq/L 3.6-5.5 (BEAKER) (test code = 379) CHLORIDE (BEAKER) 94 meq/L 98-106 L (test code = 382) CO2 (BEAKER) 20 meq/L 20-29 (test code = 355) BLOOD UREA 50 mg/dL 10-26 H NITROGEN (BEAKER) (test code = 354) CREATININE 7.96 mg/dL 0.50-1.20 H (BEAKER) (test code = 358) GLUCOSE RANDOM 223 mg/dL 70-110 H (BEAKER) (test code = 652) CALCIUM (BEAKER) 7.7 mg/dL 8.5-10.5 L (test code = 697) EGFR (BEAKER) 5 Interpretatio n of eGFR (test code = mL/min/1.73 values Stage De scription 1092) sq m Result G1 Iris l or high >=90 G2 Mildly decreased 60-89 G3a Mild ly to moderately 45-5 9 G3b Moderately to [...] not appl icable for dialysis patien ts Mail Order Biller ID - LITOOperator ID - LITOOperator ID - LITOOperator ID - LITOOperator ID - LITOOperator ID - LITOOperator ID - LITOOperator ID - LITOOperator ID - LITOOperator ID - [id number] 06:33:03 Test Item Value Reference Range Interpretation Comments MAGNESIUM (BEAKER) (test code = 1.7 mg/dL 1.5-3.0 627) Mail Order Biller ID - LITOOperator ID - LITOOperator ID - LITOOperator ID - JUNO [id number] 06:30:28 Test Item Value Reference Range Interpretation Comments PHOSPHORUS (BEAKER) (test code = 6.0 mg/dL 2.5-4.5 H 604) Mail Order Biller ID - [id number] (HEMOGRAM ONLY)2022-03-27 06:08:20 Test Item Value Reference Range Interpretation Comments WHITE BLOOD CELL COUNT (BEAKER) 6.1 K/ L 4.0-10.0 (test code = 775) RED BLOOD CELL COUNT (BEAKER) 2.60 M/ L 4.00-5.00 L (test code = 761) HEMOGLOBIN (BEAKER) (test code = 7.8 GM/DL 12.0-15.5 L 410) HEMATOCRIT (BEAKER) (test code = 23.1 % 36.0-46.0 L 411) MEAN CORPUSCULAR VOLUME (BEAKER) 89 fL 82-99 (test code = 753) MEAN CORPUSCULAR HEMOGLOBIN 30.0 pg 27.0-33.0 (BEAKER) (test code = 751) MEAN CORPUSCULAR HEMOGLOBIN CONC 33.8 GM/DL 32.0-36.0 (BEAKER) (test code = 752) RED CELL DISTRIBUTION WIDTH 16.6 % 12.0-15.0 H (BEAKER) (test code = 412) PLATELET COUNT (BEAKER) (test 192 K/CU MM 150-430 code = 756) MEAN PLATELET VOLUME (BEAKER) 8.4 fL 6.0-11.5 (test code = 754) NUCLEATED RED BLOOD CELLS 0 /100 WBC 0-0 (BEAKER) (test code = 413) POCT-GLUCOSE [id number] 20:45:32 Test Item Value Reference Range Interpretation Comments POC-GLUCOSE METER 268 mg/dL 70-110 H : TESTED A T [address] (BEAKER) (test code [address], = 1538) [place] [address]: Mail Order Biller/Techni lisseth ID = [id number] for Nadia Basurto HEMOGLOBIN AND [id number] 16:52:55 Test Item Value Reference Range Interpretation Comments HEMOGLOBIN (BEAKER) (test code = 6.5 GM/DL 12.0-15.5 L 410) HEMATOCRIT (BEAKER) (test code = 19.9 % 36.0-46.0 LL 411) POCT-GLUCOSE [id number] 16:52:47 Test Item Value Reference Range Interpretation Comments POC-GLUCOSE METER 198 mg/dL 70-110 H : TESTED A T [address] (BEAKER) (test code [address], = 1538) [place] [address]: Mail Order Biller/Techni lisseth ID = [id number] for Shin Bree slatery POCT-GLUCOSE [id number] 11:54:04 Test Item Value Reference Range Interpretation Comments POC-GLUCOSE METER 172 mg/dL 70-110 H : TESTED A T [address] (BEAKER) (test code [address], = 1538) [facility] [address]: Mail Order Biller/Techni lisseth ID = [id number] for Bessy Nelson RAD, CHEST, 1 VIEW, NON [id number] 11:36:00Reason for exam:->picc line verificationShould this be performed at the bedside?->Yes [facility] 1940 Sex: FFINALREPORT RAD, CHEST, 1 VIEW, NON DEPT TECHNIQUE: Frontal view(s) of the chest. INDICATION: picc line verification COMPARISON: Chest radiograph 11/29/2021 FINDINGS/IMPRESSION: Lines/Tubes: Interval placement of a right-sided PICC with tip at the cavoatrial junction. Lungs/pleura: No convincing change in bilateral parenchymal opacities. No pleural effusion. No pneumothorax. Heart and Mediastinum: Unremarkable. Soft Tissues and Bones: Unchanged. Signed: Bella Walsh MDRconor Verified Date/Time: 03/26/2022 11:36:18 Reading Location: [facility] Radiology Reading Room POCT-GLUCOSE [id number] 06:46:55 Test Item Value Reference Range Interpretation Comments POC-GLUCOSE METER 183 mg/dL 70-110 H : Notified RN/MD: TESTED (GONZALES) (test code AT [facility] [address] = 1538) [facility], [facility] [address]: Mail Order Biller/Techni lisseth ID = [id number] for Cynthia Lozoya BASIC METABOLIC [id number] 05:24:51 Test Item Value Reference Range Interpretation Comments SODIUM (BEAKER) 129 meq/L 135-148 L (test code = 381) POTASSIUM 4.6 meq/L 3.6-5.5 (BEAKER) (test code = 379) CHLORIDE (BEAKER) 95 meq/L 98-106 L (test code = 382) CO2 (BEAKER) 22 meq/L 20-29 (test code = 355) BLOOD UREA 49 mg/dL 10-26 H NITROGEN (BEAKER) (test code = 354) CREATININE 8.21 mg/dL 0.50-1.20 H (BEAKER) (test code = 358) GLUCOSE RANDOM 222 mg/dL 70-110 H (BEAKER) (test code = [...] is not as accur ate as Creatinine Agneiszka gagan in predicting glom erular filtration rate . Estimated GFR is not appl icable for dialysis patien ts Mail Order Biller ID - [id number] ID - [id number] ID - [id number] ID - [id number] ID - [id number] ID - LSES95Hxsqzghq ID - CBYE29Ngbtyedx ID - JNIN98Iwsoaxkz ID - WVGU36Rgtlqcjm ID - [id number] 05:14:24 Test Item Value Reference Range Interpretation Comments MAGNESIUM (BEAKER) (test code = 1.8 mg/dL 1.5-3.0 627) Mail Order Biller ID - [id number] ID - [id number] ID - [id number] ID - [id number] 05:12:02 Test Item Value Reference Range Interpretation Comments PHOSPHORUS (BEAKER) (test code = 6.8 mg/dL 2.5-4.5 H 604) Mail Order Biller ID - [id number]-JNDCDQK [id number] 21:36:44 Test Item Value Reference Range Interpretation Comments POC-GLUCOSE METER 255 mg/dL 70-110 H : Notified RN/MD: TESTED (BEAKER) (test code AT [facility] [address] = 1538) [facility] [address] Mail Order Biller/Techni lisseth ID = [id number] for Cynthia Lozoya Urinalysis w/Microscopic + Reflex to [id number] 17:58:55 Test Item Value Reference Range Interpretation Comments Color, UA (test code = Other 5778-6) Clarity, UA (test code = Cloudy 5767-9) Specific Amo, UA 1.020 1.001-1.035 (test code = 5811-5) pH, UA (test code = 6.5 5.0-8.0 5803-2) Protein, UA (test code = 100 mg/dL Negative A 31238-5) Glucose, UA (test code = Negative Negative 365) Ketones, UA (test code = Negative Negative 2514-8) Bilirubin, UA (test code Negative Negative = 10986-6) Blood, UA (test code = Large Negative A 23282-2) Nitrite, UA (test code = Negative Negative 5802-4) Leukocytes, UA (test Large Negative A code = 5799-2) Urobilinogen, UA (test 0.2 code = 81341-5) Bacteria, UA (test code Moderate = 55658-1) Amorphous Crystals (test Many code = 87585-7) RBC, UA (test code = None Seen See_Comment [Autom ated message] 799-7) The system [employer] generated this result transmit geeta reference range : /HPF. The refer ence range was not u sed to interpret th is result as normal/abnormal . WBC, UA (test code = >100 See_Comment [Autom ated message] 98990-1) The system [employer] generated this result transmit geeta reference range : /HPF. The refer ence range was not u sed to interpret th is result as normal/abnormal . SQUAMOUS EPITHELIAL <5 See_Comment [Automa geeta message] (test code = 00608-5) The sy stem which generated this result transmit geeta reference range : /HPF. The refer ence range was not u sed to interpret th is result as normal/abnormal . Specimen Source (test code = 2795) Lab Interpretation (test Abnormal code = 56336-4) [facility] [id number] 17:58:55 Test Item Value Reference Range Interpretation Comments COLOR (BEAKER) (test code = Other 470) CLARITY (BEAKER) (test code = Cloudy 469) SPECIFIC GRAVITY UA (BEAKER) 1.020 1.001-1.035 (test code = 468) PH UA (BEAKER) (test code = 6.5 5.0-8.0 467) PROTEIN UA (BEAKER) (test code 100 mg/dL Negative A = 464) GLUCOSE UA (BEAKER) (test code Negative Negative = 365) KETONES UA (BEAKER) (test code Negative Negative = 371) BILIRUBIN UA (BEAKER) (test Negative Negative code = 462) BLOOD UA (BEAKER) (test code = Large Negative A 461) NITRITE UA (BEAKER) (test code Negative Negative = 465) LEUKOCYTE ESTERASE UA (BEAKER) Large Negative A (test code = 466) UROBILINOGEN UA (BEAKER) (test 0.2 code = 463) BACTERIA (BEAKER) (test code = Moderate 517) AMORPHOUS CRYSTALS (BEAKER) Many (test code = 1584) RBC UA-MANUAL (BEAKER) (test None Seen /HPF code = 1659) WBC UA-MANUAL (BEAKER) (test >100 /HPF code = 1661) SQUAMOUS EPITHELIAL MANUAL <5 /HPF (BEAKER) (test code = 1663) SOURCE(BEAKER) (test code = 2795) POCT-GLUCOSE [id number] 16:07:45 Test Item Value Reference Range Interpretation Comments POC-GLUCOSE METER 200 mg/dL 70-110 H : TESTED A T [address] (BEAKER) (test code [address], = 1538) [facility] [address]: Mail Order Biller/Techni lisseth ID = [id number] for Jigna Latif POCT-GLUCOSE [id number] 12:20:35 Test Item Value Reference Range Interpretation Comments POC-GLUCOSE METER 204 mg/dL 70-110 H : TESTED A T [address] (BEAKER) (test code [address], = 1538) [facility] [place] [address]: Mail Order Biller/Techni lisseth ID = [id number] for Jigna Latif BASIC METABOLIC [id number] 06:09:34 Test Item Value Reference Range Interpretation Comments SODIUM (BEAKER) 130 meq/L 135-148 L (test code = 381) POTASSIUM 4.9 meq/L 3.6-5.5 (BEAKER) (test code = 379) CHLORIDE (BEAKER) 94 meq/L 98-106 L (test code = 382) CO2 (BEAKER) 21 meq/L 20-29 (test code = 355) BLOOD UREA 45 mg/dL 10-26 H NITROGEN (BEAKER) (test code = 354) CREATININE 8.20 mg/dL 0.50-1.20 H (BEAKER) (test code = [...] not appl icable for dialysis patien ts Mail Order Biller ID - LITOOperator ID - LITOOperator ID - LITOOperator ID - LITOOperator ID - LITOOperator ID - LITOOperator ID - LITOOperator ID - LITOOperator ID - LITOOperator ID - [id number] 05:59:11 Test Item Value Reference Range Interpretation Comments MAGNESIUM (BEAKER) (test code = 1.8 mg/dL 1.5-3.0 627) Mail Order Biller ID - LITOOperator ID - LITOOperator ID - LITOOperator ID - JUNO [id number] 05:56:26 Test Item Value Reference Range Interpretation Comments PHOSPHORUS (BEAKER) (test code = 6.9 mg/dL 2.5-4.5 H 604) Mail Order Biller ID - LITOPOCT-GLUCOSE [id number] 05:52:49 Test Item Value Reference Range Interpretation Comments POC-GLUCOSE METER 158 mg/dL 70-110 H : TESTED A T [address] (BEAKER) (test code [address], = 1538) [facility] [address]: Mail Order Biller/Techni lisseth ID = [id number] for Ana Maria Finch CBC (HEMOGRAM ONLY)2022-03-25 05:32:32 Test Item Value Reference Range Interpretation Comments WHITE BLOOD CELL COUNT (BEAKER) 5.5 K/ L 4.0-10.0 (test code = 775) RED BLOOD CELL COUNT (BEAKER) 2.24 M/ L 4.00-5.00 L (test code = 761) HEMOGLOBIN (BEAKER) (test code = 6.8 GM/DL 12.0-15.5 L 410) HEMATOCRIT (BEAKER) (test code = 20.9 % 36.0-46.0 LL 411) MEAN CORPUSCULAR VOLUME (BEAKER) 93 fL 82-99 (test code = 753) MEAN CORPUSCULAR HEMOGLOBIN 30.4 pg 27.0-33.0 (BEAKER) (test code = 751) MEAN CORPUSCULAR HEMOGLOBIN CONC 32.5 GM/DL 32.0-36.0 (BEAKER) (test code = 752) RED CELL DISTRIBUTION WIDTH 15.0 % 12.0-15.0 (BEAKER) (test code = 412) PLATELET COUNT (BEAKER) (test 181 K/CU MM 150-430 code = 756) MEAN PLATELET VOLUME (BEAKER) 8.4 fL 6.0-11.5 (test code = 754) NUCLEATED RED BLOOD CELLS 0 /100 WBC 0-0 (BEAKER) (test code = 413) POCT-GLUCOSE [id number] 21:31:51 Test Item Value Reference Range Interpretation Comments POC-GLUCOSE METER 234 mg/dL 70-110 H : TESTED A T [address] (BEAKER) (test code [address], = 1538) [place] [address]: Mail Order Biller/Techni lisseth ID = [id number] for Ana Maria Finch POCT-GLUCOSE [id number] 17:09:08 Test Item Value Reference Range Interpretation Comments POC-GLUCOSE METER 181 mg/dL 70-110 H : TESTED A T [address] (BEAKER) (test code [address], = 1538) [place] [address]: Mail Order Biller/Techni lisseth ID = [id number] for Kayli Moreno POCT-GLUCOSE [id number] 10:53:39 Test Item Value Reference Range Interpretation Comments POC-GLUCOSE METER 180 mg/dL 70-110 H : TESTED A T [address] (BEAKER) (test code [address], = 1538) [place] [address]: Mail Order Biller/Techni lisseth ID = [id number] for Sola janice Nancy URINE [id number] 09:38:21 Test Item Value Reference Range Interpretation Comments CULTURE (BEAKER) VANCOMYCIN A 30-39,000 c ol/mL (test code = 1095) RESISTANT Vancomyci n ENTEROCOCCUS resistant FAECIUM Enterococcus faecium Ampicillin (test R code = 26) Ciprofloxacin (test R code = 7) Erythromycin (test R code = 4) Gentamicin High S Level Synergy (test code = 241) Levofloxacin (test R code = 22) Linezolid (test code S = 40) Nitrofurantoin (test S code = 23) Streptomycin High R Level Synergy (test code = 242) Tetracycline (test S code = 2) Tigecycline (test S code = 133) Vancomycin (test R code = 13) POCT-GLUCOSE [id number] 06:01:18 Test Item Value Reference Range Interpretation Comments POC-GLUCOSE METER 174 mg/dL 70-110 H : TESTED A T [address] (BEAKER) (test code [address], = 1538) [place] [address]: Mail Order Biller/Techni lisseth ID = [id number] for Ana Maria Finch BASIC METABOLIC [id number] 05:57:17 Test Item Value Reference Range Interpretation Comments SODIUM (BEAKER) 129 meq/L 135-148 L (test code = 381) POTASSIUM 5.0 meq/L 3.6-5.5 (BEAKER) (test code = 379) CHLORIDE (BEAKER) 93 meq/L 98-106 L (test code = 382) CO2 (BEAKER) 23 meq/L 20-29 (test code = 355) BLOOD UREA 46 mg/dL 10-26 H NITROGEN (BEAKER) (test code = 354) CREATININE 8.31 mg/dL 0.50-1.20 H (BEAKER) (test code = 358) GLUCOSE RANDOM 169 mg/dL 70-110 H (BEAKER) (test code = [...] not appl icable for dialysis patien ts Mail Order Biller ID - SMJS87Glfbouol ID - WXLS63Gbninriz ID - QASM22Tfznszge ID - SUVJ42Ununbfnn ID - ZQQI46Tpnxdcvb ID - YNEY79Lyodgctt ID - IMWK10Putfniwm ID - XEHS09Qqppnbyu ID - ZNXQ34Xxxjqyrx ID - [id number] 05:45:49 Test Item Value Reference Range Interpretation Comments MAGNESIUM (BEAKER) (test code = 2.0 mg/dL 1.5-3.0 627) Mail Order Biller ID - DLBJ60Gjnundue ID - QKSJ90Zibmfhmi ID - TAGN39Plafkqnk ID - [id number] 05:42:56 Test Item Value Reference Range Interpretation Comments PHOSPHORUS (BEAKER) (test code = 7.2 mg/dL 2.5-4.5 H 604) Mail Order Biller ID - [id number]-ZUESHCC [id number] 20:20:39 Test Item Value Reference Range Interpretation Comments POC-GLUCOSE METER 196 mg/dL 70-110 H : TESTED A T [address] (BEAKER) (test code [address], = 1538) [place] [address]: Mail Order Biller/Techni lisseth ID = [id number] for Ana Maria Finch POCT-GLUCOSE [id number] 16:50:56 Test Item Value Reference Range Interpretation Comments POC-GLUCOSE METER 194 mg/dL 70-110 H : TESTED A T [address] (BEAKER) (test code [address], = 1538) [place] [address]: Mail Order Biller/Techni lisseth ID = [id number] for Bessy Nelson POCT-GLUCOSE [id number] 12:35:51 Test Item Value Reference Range Interpretation Comments POC-GLUCOSE METER 186 mg/dL 70-110 H : TESTED A T [address] (BEAKER) (test code [address], = 1538) [place] [address]: Mail Order Biller/Techni lisseth ID = [id number] for Sharda Caruso POCT-GLUCOSE [id number] 06:20:40 Test Item Value Reference Range Interpretation Comments POC-GLUCOSE METER 148 mg/dL 70-110 H : TESTED A T [address] (BEAKER) (test code [address], = 1538) [place] [address]: Mail Order Biller/Techni lisseth ID = [id number] for Gabriela Otero CBC (HEMOGRAM ONLY)2022-03-23 05:47:05 Test Item Value Reference Range Interpretation Comments WHITE BLOOD CELL COUNT (BEAKER) 5.5 K/ L 4.0-10.0 (test code = 775) RED BLOOD CELL COUNT (BEAKER) 2.49 M/ L 4.00-5.00 L (test code = 761) HEMOGLOBIN (BEAKER) (test code = 7.6 GM/DL 12.0-15.5 L 410) HEMATOCRIT (BEAKER) (test code = 22.9 % 36.0-46.0 L 411) MEAN CORPUSCULAR VOLUME (BEAKER) 92 fL 82-99 (test code = 753) MEAN CORPUSCULAR HEMOGLOBIN 30.5 pg 27.0-33.0 (BEAKER) (test code = 751) MEAN CORPUSCULAR HEMOGLOBIN CONC 33.2 GM/DL 32.0-36.0 (BEAKER) (test code = 752) RED CELL DISTRIBUTION WIDTH 14.7 % 12.0-15.0 (BEAKER) (test code = 412) PLATELET COUNT (BEAKER) (test 179 K/CU MM 150-430 code = 756) MEAN PLATELET VOLUME (BEAKER) 8.7 fL 6.0-11.5 (test code = 754) NUCLEATED RED BLOOD CELLS 0 /100 WBC 0-0 (BEAKER) (test code = 413) [id number] 05:44:37 Test Item Value Reference Range Interpretation Comments LIPASE (BEAKER) (test code = 749) 350 U/L 6-51 H Mail Order Biller ID - [id number] ID - TYGHRBYRL097Aonuxest ID - VBRLGQHYS058Quszbawq ID - [id number]4 05:43:34 Test Item Value Reference Range Interpretation Comments MAGNESIUM (BEAKER) (test code = 2.1 mg/dL 1.5-3.0 627) Mail Order Biller ID - [id number] METABOLIC [id number] 05:42:38 Test Item Value Reference Range Interpretation Comments SODIUM (BEAKER) 128 meq/L 135-148 L (test code = 381) POTASSIUM 4.9 meq/L 3.6-5.5 (BEAKER) (test code = 379) CHLORIDE (BEAKER) 92 meq/L 98-106 L (test code = 382) CO2 (BEAKER) 21 meq/L 20-29 (test code = 355) BLOOD UREA 46 mg/dL 10-26 H NITROGEN (BEAKER) (test code = 354) CREATININE 8.68 mg/dL 0.50-1.20 H (BEAKER) (test code = 358) GLUCOSE RANDOM 144 mg/dL 70-110 H (BEAKER) (test code = [...] not appl icable for dialysis patien ts Mail Order Biller ID - [id number] ID - XVSYDTCXD175Hlsbawvb ID - DTGYYDBVJ322Dssmgbsa ID - MFGPBCWRB641Jqrsmaei ID - ZJYJXVUPU302Renmyzfn ID - SUGXACFXB944Cipuzzqp ID - PUBVZHBPG701Gxqkxssl ID - UQJFSESGU943Janesofo ID - [id number] ID - [id number] 05:40:55 Test Item Value Reference Range Interpretation Comments PHOSPHORUS (BEAKER) (test code = 7.0 mg/dL 2.5-4.5 H 604) Mail Order Biller ID - [id number] [id number] 20:59:39 Test Item Value Reference Range Interpretation Comments POC-GLUCOSE METER 139 mg/dL 70-110 H : TESTED A T [address] (BEAKER) (test code [address], = 1538) [facility] [phone]: Mail Order Biller/Techni lisseth ID = [id number] for Gabriela Otero TROPONIN [id number] 12:47:27 Test Item Value Reference Range Interpretation Comments TROPONIN I (BEAKER) (test code = 0.03 ng/mL 0.00-0.15 397) Troponin I (TnI) levels must be interpreted in the context of the presenting symptoms and the clinical findings. Elevated TnI levels indicate myocardial damage, but are not specific for ischemic heart disease. Elevated TnI levels are seen in patients with other cardiac conditions (including myocarditis and congestive heart failure), and slight TnI elevations occur in patients with other conditions, including sepsis, renal failure, acidosis, acute neurological disease, and persistent tachyarrhythmia.Mail Order Biller ID - [id number]-GLUCOSE METER 2022-03-22 12:36:48 Test Item Value Reference Range Interpretation Comments POC-GLUCOSE METER 210 mg/dL 70-110 H : TESTED A T [address] (BEAKER) (test code [address], = 1538) [place] [id number]: Mail Order Biller/Techni lisseth ID = [id number] for Sharda Caruso HEPATITIS B SURFACE [id number] 11:52:43 Test Item Value Reference Range Interpretation Comments HEPATITIS B SURFACE ANTIBODY < mIU/mL <8.0 (BEAKER) (test code = 647) Mail Order Biller ID - MitchTROPONIN [id number] 08:29:50 Test Item Value Reference Range Interpretation Comments TROPONIN I (BEAKER) (test code = 0.05 ng/mL 0.00-0.15 397) Troponin I (TnI) levels must be interpreted in the context of the presenting symptoms and the clinical findings. Elevated TnI levels indicate myocardial damage, but are not specific for ischemic heart disease. Elevated TnI levels are seen in patients with other cardiac conditions (including myocarditis and congestive heart failure), and slight TnI elevations occur in patients with other conditions, including sepsis, renal failure, acidosis, acute neurological disease, and persistent tachyarrhythmia.Mail Order Biller ID - LITOPOCT-GLUCOSE METER 2022-03-22 06:47:26 Test Item Value Reference Range Interpretation Comments POC-GLUCOSE METER 194 mg/dL 70-110 H : TESTED A T [address] (BEAKER) (test code [address], = 1538) [place] [id number]: Mail Order Biller/Techni lisseth ID = [id number] for Ana Maria Finch HEPATITIS B SURFACE [id number] 06:24:40 Test Item Value Reference Range Interpretation Comments HEPATITIS B SURFACE ANTIGEN (2) Nonreactive Nonreactive (BEAKER) (test code = 2585) Mail Order Biller ID - LITOBASIC METABOLIC [id number] 05:40:09 Test Item Value Reference Range Interpretation Comments SODIUM (BEAKER) 128 meq/L 135-148 L (test code = 381) POTASSIUM 4.6 meq/L 3.6-5.5 (BEAKER) (test code = 379) CHLORIDE (BEAKER) 91 meq/L 98-106 L (test code = 382) CO2 (BEAKER) 20 meq/L 20-29 (test code = 355) BLOOD UREA 43 mg/dL 10-26 H NITROGEN (BEAKER) (test code = 354) CREATININE 8.33 mg/dL 0.50-1.20 H (BEAKER) (test code = 358) GLUCOSE RANDOM 198 mg/dL [...] not appl icable for dialysis patien ts Mail Order Biller ID - LITOOperator ID - LITOOperator ID - LITOOperator ID - LITOOperator ID - LITOOperator ID - LITOOperator ID - LITOOperator ID - LITOOperator ID - LITOOperator ID - [id number] 05:39:09 Test Item Value Reference Range Interpretation Comments MAGNESIUM (BEAKER) (test code = 2.1 mg/dL 1.5-3.0 627) Mail Order Biller ID - LITOOperator ID - LITOOperator ID - LITOOperator ID - JUNO [id number] 05:36:43 Test Item Value Reference Range Interpretation Comments PHOSPHORUS (BEAKER) (test code = 6.8 mg/dL 2.5-4.5 H 604) Mail Order Biller ID - LITOPOCT-GLUCOSE [id number] 20:38:00 Test Item Value Reference Range Interpretation Comments POC-GLUCOSE METER 207 mg/dL 70-110 H : TESTED A T [address] [address] (BEAKER) (test code [address], = 1538) [facility] [address]: Mail Order Biller/Techni lisseth ID = [id number] for Ana Maria Finch POCT-GLUCOSE [id number] 16:21:32 Test Item Value Reference Range Interpretation Comments POC-GLUCOSE METER 151 mg/dL 70-110 H : TESTED A T [address] (BEAKER) (test code [address], = 1538) [facility] [place] 77 [address]: Mail Order Biller/Techni lisseth ID = [id number] for Jigna Latif Urinalysis w/Jdcpateeims2499-89-31 13:28:30 Test Item Value Reference Range Interpretation Comments Color, UA (test code = Yellow 5778-6) Clarity, UA (test code = Cloudy 5767-9) Specific Amo, UA 1.020 1.001-1.035 (test code = 5811-5) pH, UA (test code = 6.5 5.0-8.0 5803-2) Protein, UA (test code = 100 mg/dL Negative A 19905-0) Glucose, UA (test code = 250 mg/dL Negative A 365) Ketones, UA (test code = Negative Negative 2514-8) Bilirubin, UA (test code Negative Negative = 71872-9) Blood, UA (test code = Large Negative A 75596-8) Nitrite, UA (test code = Negative Negative 5802-4) Leukocytes, UA (test Large Negative A code = 5799-2) Urobilinogen, UA (test 0.2 code = 51532-7) Bacteria, UA (test code Many = 15669-1) RBC, UA (test code = None Seen See_Comment [Autom ated message] 799-7) The system [employer] generated this result transmit geeta reference range : /HPF. The refer ence range was not u sed to interpret th is result as normal/abnormal . WBC, UA (test code = >100 See_Comment [Autom ated message] 82692-5) The system [employer] generated this result transmit geeta reference range : /HPF. The refer ence range was not u sed to interpret th is result as normal/abnormal . SQUAMOUS EPITHELIAL None Seen See_Comment [Automa geeta message] (test code = 48579-0) The sy stem which generated this result transmit geeta reference range : /HPF. The refer ence range was not u sed to interpret th is result as normal/abnormal . Specimen Source (test code = 2795) Lab Interpretation (test Abnormal code = 04333-6) [facility]/Lbdkericdaq9674-50-79 13:28:30 Test Item Value Reference Range Interpretation Comments Color, UA (test code = Yellow 5778-6) Clarity, UA (test code = Cloudy 5767-9) Specific Amo, UA 1.020 1.001-1.035 (test code = 5811-5) pH, UA (test code = 6.5 5.0-8.0 5803-2) Protein, UA (test code = 100 mg/dL Negative A 26446-6) Glucose, UA (test code = 250 mg/dL Negative A 365) Ketones, UA (test code = Negative Negative 2514-8) Bilirubin, UA (test code Negative Negative = 83399-9) Blood, UA (test code = Large Negative A 88769-0) Nitrite, UA (test code = Negative Negative 5802-4) Leukocytes, UA (test Large Negative A code = 5799-2) Urobilinogen, UA (test 0.2 code = 59143-9) Bacteria, UA (test code Many = 81199-5) RBC, UA (test code = None Seen See_Comment [Autom ated message] 799-7) The system [employer] generated this result transmit geeta reference range : /HPF. The refer ence range was not u sed to interpret th is result as normal/abnormal . WBC, UA (test code = >100 See_Comment [Autom ated message] 48453-5) The system [employer] generated this result transmit geeta reference range : /HPF. The refer ence range was not u sed to interpret th is result as normal/abnormal . SQUAMOUS EPITHELIAL None Seen See_Comment [Automa geeta message] (test code = 19242-2) The sy stem which generated this result transmit geeta reference range : /HPF. The refer ence range was not u sed to interpret th is result as normal/abnormal . Specimen Source (test code = 2795) Lab Interpretation (test Abnormal code = 17793-2) [facility]/Uszcjixjsyc7492-37-24 13:28:30 Test Item Value Reference Range Interpretation Comments Color, UA (test code = Yellow 5778-6) Clarity, UA (test code = Cloudy 5767-9) Specific Amo, UA 1.020 1.001-1.035 (test code = 5811-5) pH, UA (test code = 6.5 5.0-8.0 5803-2) Protein, UA (test code = 100 mg/dL Negative A 45516-5) Glucose, UA (test code = 250 mg/dL Negative A 365) Ketones, UA (test code = Negative Negative 2514-8) Bilirubin, UA (test code Negative Negative = 83853-0) Blood, UA (test code = Large Negative A 76235-5) Nitrite, UA (test code = Negative Negative 5802-4) Leukocytes, UA (test Large Negative A code = 5799-2) Urobilinogen, UA (test 0.2 code = 33182-0) Bacteria, UA (test code Many = 02914-9) RBC, UA (test code = None Seen See_Comment [Autom ated message] 799-7) The system [employer] generated this result transmit geeta reference range : /HPF. The refer ence range was not u sed to interpret th is result as normal/abnormal . WBC, UA (test code = >100 See_Comment [Autom ated message] 82766-5) The system [employer] generated this result transmit geeta reference range : /HPF. The refer ence range was not u sed to interpret th is result as normal/abnormal . SQUAMOUS EPITHELIAL None Seen See_Comment [Automa geeta message] (test code = 54123-9) The sy stem which generated this result transmit geeta reference range : /HPF. The refer ence range was not u sed to interpret th is result as normal/abnormal . Specimen Source (test code = 2795) Lab Interpretation (test Abnormal code = 09224-9) [facility]/Brxeyqybbss7130-90-57 13:28:30 Test Item Value Reference Range Interpretation Comments Color, UA (test code = Yellow 5778-6) Clarity, UA (test code = Cloudy 5767-9) Specific Amo, UA 1.020 1.001-1.035 (test code = 5811-5) pH, UA (test code = 6.5 5.0-8.0 5803-2) Protein, UA (test code = 100 mg/dL Negative A 76218-4) Glucose, UA (test code = 250 mg/dL Negative A 365) Ketones, UA (test code = Negative Negative 2514-8) Bilirubin, UA (test code Negative Negative = 79169-3) Blood, UA (test code = Large Negative A 18555-0) Nitrite, UA (test code = Negative Negative 5802-4) Leukocytes, UA (test Large Negative A code = 5799-2) Urobilinogen, UA (test 0.2 code = 38894-5) Bacteria, UA (test code Many = 31906-5) RBC, UA (test code = None Seen See_Comment [Autom ated message] 799-7) The system [employer] generated this result transmit geeta reference range : /HPF. The refer ence range was not u sed to interpret th is result as normal/abnormal . WBC, UA (test code = >100 See_Comment [Autom ated message] 47876-9) The system [employer] generated this result transmit geeta reference range : /HPF. The refer ence range was not u sed to interpret th is result as normal/abnormal . SQUAMOUS EPITHELIAL None Seen See_Comment [Automa geeta message] (test code = 84118-9) The sy stem which generated this result transmit geeta reference range : /HPF. The refer ence range was not u sed to interpret th is result as normal/abnormal . Specimen Source (test code = 2795) Lab Interpretation (test Abnormal code = 04661-7) [facility]/ [id number] 13:28:30 Test Item Value Reference Range Interpretation Comments COLOR (BEAKER) (test code = Yellow 470) CLARITY (BEAKER) (test code = Cloudy 469) SPECIFIC GRAVITY UA (BEAKER) 1.020 1.001-1.035 (test code = 468) PH UA (BEAKER) (test code = 6.5 5.0-8.0 467) PROTEIN UA (BEAKER) (test code 100 mg/dL Negative A = 464) GLUCOSE UA (BEAKER) (test code 250 mg/dL Negative A = 365) KETONES UA (BEAKER) (test code Negative Negative = 371) BILIRUBIN UA (BEAKER) (test Negative Negative code = 462) BLOOD UA (BEAKER) (test code = Large Negative A 461) NITRITE UA (BEAKER) (test code Negative Negative = 465) LEUKOCYTE ESTERASE UA (BEAKER) Large Negative A (test code = 466) UROBILINOGEN UA (BEAKER) (test 0.2 code = 463) BACTERIA (BEAKER) (test code = Many 517) RBC UA-MANUAL (BEAKER) (test None Seen /HPF code = 1659) WBC UA-MANUAL (BEAKER) (test >100 /HPF code = 1661) SQUAMOUS EPITHELIAL MANUAL None Seen /HPF (BEAKER) (test code = 1663) SOURCE(BEAKER) (test code = 2795) POCT-GLUCOSE [id number] 13:06:36 Test Item Value Reference Range Interpretation Comments POC-GLUCOSE METER 160 mg/dL 70-110 H : TESTED A T [facility] [address] (BEAKER) (test code [address], = 1538) [place] [address]: Mail Order Biller/Techni lisseth ID = [id number] for Martin BeyenaJonathan POCT-GLUCOSE [id number] 12:36:22 Test Item Value Reference Range Interpretation Comments POC-GLUCOSE METER 194 mg/dL 70-110 H : TESTED A T [facility] [address] (BEAKER) (test code [address], = 1538) [place] [address]: Mail Order Biller/Techni lisseth ID = [id number] for Jigna Latif POCT-GLUCOSE [id number] 06:45:53 Test Item Value Reference Range Interpretation Comments POC-GLUCOSE METER 175 mg/dL 70-110 H : TESTED A T [facility] [address] (BEAKER) (test code [address] [employer] [facility] [address], = 1538) [place] [address]: Mail Order Biller/Techni lisseth ID = [id number] for Ana Maria Finch BASIC METABOLIC [id number] 05:06:45 Test Item Value Reference Range Interpretation Comments SODIUM (BEAKER) 129 meq/L 135-148 L (test code = 381) POTASSIUM 4.3 meq/L 3.6-5.5 (BEAKER) (test code = 379) CHLORIDE (BEAKER) 93 meq/L 98-106 L (test code = 382) CO2 (BEAKER) 21 meq/L 20-29 (test code = 355) BLOOD UREA 43 mg/dL 10-26 H NITROGEN (BEAKER) (test code = 354) CREATININE 8.64 mg/dL 0.50-1.20 H (BEAKER) (test code = 358) GLUCOSE RANDOM 168 mg/dL [...] not appl icable for dialysis patien ts Mail Order Biller ID - [id number] ID - [id number] ID - [id number] ID - [id number] ID - UYEINVGGF827Wfzyahkr ID - YIGPMHQBI991Ogasidpz ID - WWUGNRFBM921Flvahsgh ID - [id number] ID - [id number] ID - [id number] 05:05:20 Test Item Value Reference Range Interpretation Comments MAGNESIUM (BEAKER) (test code = 1.7 mg/dL 1.5-3.0 627) Mail Order Biller ID - [id number] ID - [id number] ID - [id number] ID - [id number] 05:02:38 Test Item Value Reference Range Interpretation Comments PHOSPHORUS (BEAKER) (test code = 7.7 mg/dL 2.5-4.5 H 604) Mail Order Biller ID - [id number] (HEMOGRAM ONLY)2022-03-21 04:53:32 Test Item Value Reference Range Interpretation Comments WHITE BLOOD CELL COUNT (BEAKER) 5.8 K/ L 4.0-10.0 (test code = 775) RED BLOOD CELL COUNT (BEAKER) 2.39 M/ L 4.00-5.00 L (test code = 761) HEMOGLOBIN (BEAKER) (test code = 7.4 GM/DL 12.0-15.5 L 410) HEMATOCRIT (BEAKER) (test code = 21.7 % 36.0-46.0 L 411) MEAN CORPUSCULAR VOLUME (BEAKER) 91 fL 82-99 (test code = 753) MEAN CORPUSCULAR HEMOGLOBIN 31.0 pg 27.0-33.0 (BEAKER) (test code = 751) MEAN CORPUSCULAR HEMOGLOBIN CONC 34.1 GM/DL 32.0-36.0 (BEAKER) (test code = 752) RED CELL DISTRIBUTION WIDTH 14.8 % 12.0-15.0 (BEAKER) (test code = 412) PLATELET COUNT (BEAKER) (test 174 K/CU MM 150-430 code = 756) MEAN PLATELET VOLUME (BEAKER) 8.0 fL 6.0-11.5 (test code = 754) NUCLEATED RED BLOOD CELLS 0 /100 WBC 0-0 (BEAKER) (test code = 413) POCT-GLUCOSE [id number] 21:30:40 Test Item Value Reference Range Interpretation Comments POC-GLUCOSE METER 163 mg/dL 70-110 H : TESTED A T [address] (BEAKER) (test code [address], = 1538) [place] [address]: Mail Order Biller/Techni lisseth ID = [id number] for Nadia Basurto POCT-GLUCOSE [id number] 12:17:10 Test Item Value Reference Range Interpretation Comments POC-GLUCOSE METER 176 mg/dL 70-110 H : TESTED A T [address] (BEAKER) (test code [address], = 1538) [place] [address]: Mail Order Biller/Techni lisseth ID = [id number] for Jonathan Lindquist POCT-GLUCOSE [id number] 07:49:48 Test Item Value Reference Range Interpretation Comments POC-GLUCOSE METER 91 mg/dL 70-110 : TESTED A T [address] (BEAKER) (test code = [address], 1538) [place] [address]: Mail Order Biller/Techni lisseth ID = [id number] for Michelle Finch POCT-GLUCOSE [id number] 06:58:59 Test Item Value Reference Range Interpretation Comments POC-GLUCOSE METER 50 mg/dL 70-110 L : TESTED A T [address] (BEAKER) (test code = [address], 1538) [facility] 77 [address]: Mail Order Biller/Techni lisseth ID = [id number] for Katja Coelho BASIC METABOLIC [id number] 06:17:48 Test Item Value Reference Range Interpretation Comments SODIUM (BEAKER) 133 meq/L 135-148 L (test code = 381) POTASSIUM 3.4 meq/L 3.6-5.5 L (BEAKER) (test code = 379) CHLORIDE (BEAKER) 94 meq/L 98-106 L (test code = 382) CO2 (BEAKER) 23 meq/L 20-29 (test code = 355) BLOOD UREA 46 mg/dL 10-26 H NITROGEN (BEAKER) (test code = 354) CREATININE 8.74 mg/dL 0.50-1.20 H (BEAKER) (test code = 358) GLUCOSE RANDOM 60 mg/dL 70-110 L (BEAKER) (test code = 652) CALCIUM (BEAKER) [...] not appl icable for dialysis patien ts Mail Order Biller ID - [id number] ID - [id number] ID - YNOY56Besnxgjz ID - WHEU97Dmkvijpj ID - NYJL92Tinzpfnv ID - DCUR78Pcyairyb ID - FMSC00Mxwesmun ID - IJBX32Mvvtnbls ID - WMMO61Fzbxadaj ID - [id number] 06:17:42 Test Item Value Reference Range Interpretation Comments PHOSPHORUS (BEAKER) (test code = 8.2 mg/dL 2.5-4.5 H 604) Mail Order Biller ID - [id number] 06:13:23 Test Item Value Reference Range Interpretation Comments MAGNESIUM (BEAKER) (test code = 1.8 mg/dL 1.5-3.0 627) Mail Order Biller ID - [id number] ID - [id number] ID - [id number] ID - [id number] POCT-GLUCOSE [id number] 20:48:49 Test Item Value Reference Range Interpretation Comments POC-GLUCOSE METER 204 mg/dL 70-110 H : TESTED A T [address] (BEAKER) (test code [address], = 1538) [facility] 77 [address]: Mail Order Biller/Techni lisseth ID = [id number] for Katja Coelho RAD, ABDOMEN/KUB 1 VIEW [id number] 12:27:00Reason for exam:->malfunctioning PD catheterS[facility] REAL : 1940 Sex: FFINALREPORT RAD, ABDOMEN/KUB 1 VIEW AP TECHNIQUE: Supine radiograph(s) of the abdomen and pelvis. HISTORY: malfunctioning PD catheter COMPARISON: Abdominal radiograph 02/24/2022 IMPRESSION: Lines and tubes: Peritoneal dialysis catheter looped in the right hemipelvis. Bowel gas pattern:Nonobstructive bowel gas pattern. Other: No acute osseous abnormality. Degenerative changes of the spine Signed: Bella Walsh MDReport Verified Date/Time: 03/19/2022 12:27:05 Reading Location: [facility] Radiology Reading Room POCT-GLUCOSE [id number] 11:28:07 Test Item Value Reference Range Interpretation Comments POC-GLUCOSE METER 222 mg/dL 70-110 H : TESTED A T [address] (BEAKER) (test code [address], = 1538) [place] [address]: Mail Order Biller/Techni lisseth ID = [id number] for Sharda Caruso POCT-GLUCOSE [id number] 06:38:58 Test Item Value Reference Range Interpretation Comments POC-GLUCOSE METER 90 mg/dL 70-110 : [facility] ([facility] (test code = [address], [address]) [place] [address]: Mail Order Biller/Techni lisseth ID = [id number] for Gabriela Otero CBC W/PLT COUNT & AUTO [id number] 05:48:24 Test Item Value Reference Range Interpretation Comments WHITE BLOOD CELL COUNT (BEAKER) 5.9 K/ L 4.0-10.0 (test code = 775) RED BLOOD CELL COUNT (BEAKER) 2.78 M/ L 4.00-5.00 L (test code = 761) HEMOGLOBIN (BEAKER) (test code = 8.6 GM/DL 12.0-15.5 L 410) HEMATOCRIT (BEAKER) (test code = 25.9 % 36.0-46.0 L 411) MEAN CORPUSCULAR VOLUME (BEAKER) 93 fL 82-99 (test code = 753) MEAN CORPUSCULAR HEMOGLOBIN 30.9 pg 27.0-33.0 (BEAKER) (test code = 751) MEAN CORPUSCULAR HEMOGLOBIN CONC 33.2 GM/DL 32.0-36.0 (BEAKER) (test code = 752) RED CELL DISTRIBUTION WIDTH 15.2 % 12.0-15.0 H (BEAKER) (test code = 412) PLATELET COUNT (BEAKER) (test 194 K/CU MM 150-430 code = 756) MEAN [...] (test code = 670) LYMPHOCYTES ABSOLUTE COUNT 0.63 K/ L 1.48-4.50 L (BEAKER) (test code = 414) MONOCYTES ABSOLUTE COUNT (BEAKER) 0.31 K/ L 0.00-1.30 (test code = 415) EOSINOPHILS ABSOLUTE COUNT 0.10 K/ L 0.00-0.50 (BEAKER) (test code = 416) BASOPHILS ABSOLUTE COUNT (BEAKER) 0.03 K/ L 0.00-0.20 (test code = 417) IMMATURE GRANULOCYTES-RELATIVE 0.50 % 0.00-0.00 H PERCENT (BEAKER) (test code = 2801) TROPONIN [id number] 05:43:49 Test Item Value Reference Range Interpretation Comments TROPONIN I (BEAKER) (test code = 0.04 ng/mL 0.00-0.15 397) Troponin I (TnI) levels must be interpreted in the context of the presenting symptoms and the clinical findings. Elevated TnI levels indicate myocardial damage, but are not specific for ischemic heart disease. Elevated TnI levels are seen in patients with other cardiac conditions (including myocarditis and congestive heart failure), and slight TnI elevations occur in patients with other conditions, including sepsis, renal failure, acidosis, acute neurological disease, and persistent tachyarrhythmia.Mail Order Biller ID - LITOHEPATIC FUNCTION PANEL 2022-03-19 05:37:29 Test Item Value Reference Range Interpretation Comments TOTAL PROTEIN (BEAKER) 5.5 gm/dL 6.0-8.5 L Speci men slightly (test code = 770) hemolyzed ALBUMIN (BEAKER) (test 2.5 g/dL 3.5-5.0 L Speci men slightly code = 1145) hemolyzed BILIRUBIN TOTAL 0.3 mg/dL 0.1-1.2 Specimen sli ghtly (BEAKER) (test code = hemoly zed 377) BILIRUBIN DIRECT 0.1 mg/dL 0.0-0.4 Specimen sl ightly (BEAKER) (test code = hemoly zed 706) ALKALINE PHOSPHATASE 36 U/L 30-115 (BEAKER) (test code = 346) AST (SGOT) (BEAKER) 21 U/L 5-40 Specimen slightly (test code = 353) hemolyzed ALT (SGPT) (BEAKER) 8 U/L 5-50 Specimen slightly (test code = 347) hemolyzed Mail Order Biller ID - LITOOperator ID - LITOOperator ID - LITOOperator ID - LITOOperator ID - LITOOperator ID - LITOOperator ID - LITOLIPID [id number] 05:37:22 Test Item Value Reference Range Interpretation Comments TRIGLYCERIDES (BEAKER) 125 mg/dL Speci men slightly (test code = 540) hemolyzed CHOLESTEROL (BEAKER) 135 mg/dL Specime n slightly (test code = 631) hemolyzed HDL CHOLESTEROL (BEAKER) 28 mg/dL (test code = 976) LDL CHOLESTEROL 82 mg/dL CALCULATED (BEAKER) (test code = 633) Triglyceride Reference Range: Low Risk <150 Borderline 150-199 High Risk 200- 499 Very High Risk >=500Cholesterol Reference Range: Low Risk <200 Borderline 200-239 High Risk >240HDL Cholesterol Reference Range: Low Risk >=60 High Risk <40LDL Cholesterol Reference Range: Optimal <100 Near Optimal 100-129 Borderline 130-159 High 160-189 Very High >=190 Mail Order Biller ID - LITOOperator ID - LITOOperator ID - [id number] 05:36:45 Test Item Value Reference Range Interpretation Comments LIPASE (BEAKER) (test code = 749) 332 U/L 6-51 H Mail Order Biller ID - LITOOperator ID - LITOOperator ID - LITOOperator ID - LITOBASIC METABOLIC [id number] 05:34:43 Test Item Value Reference Range Interpretation Comments SODIUM (BEAKER) 136 meq/L 135-148 (test code = 381) POTASSIUM 3.4 meq/L 3.6-5.5 L Specimen slight ly (BEAKER) (test hemolyzed code = 379) CHLORIDE (BEAKER) 96 meq/L 98-106 L (test code = 382) CO2 (BEAKER) 22 meq/L 20-29 (test code = 355) BLOOD UREA 48 mg/dL 10-26 H NITROGEN (BEAKER) (test code = 354) CREATININE 9.09 mg/dL 0.50-1.20 H Specimen slight ly (BEAKER) (test hemolyzed code = 358) GLUCOSE RANDOM 103 mg/dL 70-110 (BEAKER) (test code = 652) CALCIUM (BEAKER) [...] not appl icable for dialysis patien ts Mail Order Biller ID - LITOOperator ID - LITOOperator ID - LITOOperator ID - LITOOperator ID - LITOOperator ID - LITOOperator ID - LITOOperator ID - LITOOperator ID - LITOOperator ID - LITOPOCT-GLUCOSE [id number] 20:51:17 Test Item Value Reference Range Interpretation Comments POC-GLUCOSE METER 200 mg/dL 70-110 H : TESTED A T [address] [address] (BEAKER) (test code [address], = 1538) [facility] [address]: Mail Order Biller/Techni lisseth ID = [id number] for Gabriela Otero TROPONIN [id number] 20:15:31 Test Item Value Reference Range Interpretation Comments TROPONIN I (BEAKER) (test code = 0.05 ng/mL 0.00-0.15 397) Troponin I (TnI) levels must be interpreted in the context of the presenting symptoms and the clinical findings. Elevated TnI levels indicate myocardial damage, but are not specific for ischemic heart disease. Elevated TnI levels are seen in patients with other cardiac conditions (including myocarditis and congestive heart failure), and slight TnI elevations occur in patients with other conditions, including sepsis, renal failure, acidosis, acute neurological disease, and persistent tachyarrhythmia.Mail Order Biller ID - [id number]-OEYRKRY [id number] 17:17:42 Test Item Value Reference Range Interpretation Comments POC-GLUCOSE METER 167 mg/dL 70-110 H : TESTED A T [address] (BEAKER) (test code [address], = 1538) [place] [address]: Mail Order Biller/Techni lisseth ID = [id number] for Evelyne Armstronge POC-Glucose [id number] 21:29:22 Test Item Value Reference Range Interpretation Comments POC-Glucose Meter (test 289 mg/dL 70-110 H : TE STED AT [facility] code = 1538) [address] [facility] [place] [address]: Mail Order Biller/Techni lisseth ID = [id number] for Mariajose Marie Lab Interpretation (test Abnormal code = 55369-5) [facility] [id number] 21:29:22 Test Item Value Reference Range Interpretation Comments POC-GLUCOSE METER 289 mg/dL 70-110 H : TESTED A T [address] (BEAKER) (test code [address], = 1538) [place] [address]: Mail Order Biller/Techni lisseth ID = [id number] for Simi Miller POCT-GLUCOSE [id number] 21:29:14 Test Item Value Reference Range Interpretation Comments POC-GLUCOSE METER 285 mg/dL 70-110 H : TESTED A T [address] (BEAKER) (test code [address], = 1538) [place] [address]: Mail Order Biller/Techni lisseth ID = [id number] for Elizabeth Armstrong VANCOMYCIN LEVEL, [id number] 09:24:55 Test Item Value Reference Range Interpretation Comments VANCOMYCIN RANDOM (BEAKER) (test 22.2 ug/mL code = 523) Reference Range: No NormalsOperator ID - [id number] 07:00:05 Test Item Value Reference Range Interpretation Comments POC-GLUCOSE METER 296 mg/dL 70-110 H : TESTED A T [address] (BEAKER) (test code [address], = 1538) [facility] [place] [address]: Mail Order Biller/Techni lisseth ID = [id number] for Gabriela Otero BASIC METABOLIC [id number] 05:23:52 Test Item Value Reference Range Interpretation [...] not appl icable for dialysis patien ts Mail Order Biller ID - LITOOperator ID - LITOOperator ID - LITOOperator ID - LITOOperator ID - LITOOperator ID - LITOOperator ID - LITOOperator ID - LITOOperator ID - LITOOperator ID - [id number] 05:22:13 Test Item Value Reference Range Interpretation Comments MAGNESIUM (BEAKER) (test code = 1.8 mg/dL 1.5-3.0 627) Mail Order Biller ID - LITOOperator ID - LITOOperator ID - LITOOperator ID - JUNO [id number] 05:19:31 Test Item Value Reference Range Interpretation Comments PHOSPHORUS (BEAKER) (test code = 2.0 mg/dL 2.5-4.5 L 604) Mail Order Biller ID - LITOCBC W/PLT COUNT & AUTO [id number] 05:12:17 Test Item Value Reference Range Interpretation [...] PERCENT (BEAKER) (test code = 2801) POCT-GLUCOSE [id number] 21:58:42 Test Item Value Reference Range Interpretation Comments POC-GLUCOSE METER 342 mg/dL 70-110 H : TESTED A T [facility] [address] (BEAKER) (test code [facility], = 1538) [place] [id number]: Mail Order Biller/Techni lisseth ID = [id number] for Stefan murcia Gabriela POCT-GLUCOSE [id number] 17:20:24 Test Item Value Reference Range Interpretation Comments POC-GLUCOSE METER 281 mg/dL 70-110 H : TESTED A T [facility] (BEAKER) ([facility] [place] [address]: Mail Order Biller/Techni lisseth ID = [id number] for Alza hram, Zaena POCT-GLUCOSE [id number] 12:13:20 Test Item Value Reference Range Interpretation Comments POC-GLUCOSE METER 245 mg/dL 70-110 H : TESTED A T [facility] (BEAKER) (test code [facility] NT [facility], = 1538) [place] [address]: Mail Order Biller/Techni lisseth ID = [id number] for Alza hram, Zaena POCT-GLUCOSE [id number] 09:15:57 Test Item Value Reference Range Interpretation Comments POC-GLUCOSE METER 177 mg/dL 70-110 H : TESTED A T [facility] (BEAKER) (test code [address] [facility] = [facility] [place] [address] 478: Mail Order Biller/Techni lisseth ID = [id number] for Alza hram, Zaena POCT-GLUCOSE [id number] 06:34:33 Test Item Value Reference Range Interpretation Comments POC-GLUCOSE METER 203 mg/dL 70-110 H : Notified RN/MD: TESTED (BEAKER) (test code AT [facility] [address] = 1538) [place] [address]: Mail Order Biller/Techni lisseth ID = [id number] for Cynthia Lozoya [id number] 06:09:24 Test Item Value Reference Range Interpretation Comments MAGNESIUM (BEAKER) (test code = 1.9 mg/dL 1.5-3.0 627) Mail Order Biller ID - HJHX12Agqmqehf ID - KNFL05Wxxjxsjy ID - WWBN71Jxcnjvkd ID - [id number] BASIC METABOLIC [id number] 06:08:36 Test Item Value Reference Range Interpretation [...] not appl icable for dialysis patien ts Mail Order Biller ID - KQSA54Ubvuwaat ID - DHDX99Dkxtqjbj ID - TQML82Fawvmhya ID - PXWT43Oarhhxey ID - PQKR33Ivdezeit ID - MWLA05Ymiviceg ID - WWAA34Bkolwwky ID - NFNW26Pwecfxtd ID - JVLE39Kagtwcrv ID - FGSU53QBWXZXSHRZ2297-11-05 06:06:36 Test Item Value Reference Range Interpretation Comments PHOSPHORUS (BEAKER) (test code = 2.3 mg/dL 2.5-4.5 L 604) Mail Order Biller ID - [id number] W/PLT COUNT & AUTO [id number] 05:30:26 Test Item Value Reference Range Interpretation [...] PERCENT (BEAKER) (test code = 2801) POCT-GLUCOSE [id number] 21:30:59 Test Item Value Reference Range Interpretation Comments POC-GLUCOSE METER 268 mg/dL 70-110 H : Notified RN/MD: TESTED (BEAKER) ([facility] [address] = 1538) [facility] [address]: Mail Order Biller/Techni lisseth ID = [id number] for Cynthia Lozoya POCT-GLUCOSE [id number] 17:12:44 Test Item Value Reference Range Interpretation Comments POC-GLUCOSE METER 301 mg/dL 70-110 H : TESTED A T [facility] 1317 ([facility]) (test code [facility] NT [facility], = 1538) [facility] 77 478: Mail Order Biller/Techni lisseth ID = [id number] for Bessy Nelson 2D Echo W/Doppler(CW/PW/Color)2022-03-03 13:23:57Ejection FractionSLEH [facility]Doppler(CW/PW/Color)2022-03-03 13:23:57Ejection FractionSLEH ECHO HEARTLAB [facility] Echo W/Doppler(CW/PW/Color) 2022-03-03 13:23:57Ejection FractionSLEH ECHO [facility]ARTLAB [facility] Echo W/Doppler(CW/PW/Color)2022-03-03 13:23:57Ejection FractionSLEH ECHO [facility]ARTLAB [facility] Echo W/Doppler(CW/PW/Color)2022-03-03 13:23:57Ejection FractionSLEH ECHO HEARTLAB [facility] AMEVR1702-07-29 12:12:22 Test Item Value Reference Range Interpretation Comments POC-GLUCOSE METER 202 mg/dL 70-110 H : TESTED A T [facility] [address] (BEAKER) (test code [address], = 1538) [facility] 77 478: Mail Order Biller/Techni lisseth ID = [id number] for Bessy Nelson (MANUAL DIFFERENTIAL)2022-03-03 07:24:54 Test [...] = 762) CBC W/PLT COUNT & AUTO [id number] 07:24:53 Test Item Value Reference Range Interpretation [...] (BEAKER) (test code = 413) BASIC METABOLIC [id number] 07:02:31 Test Item Value Reference Range Interpretation [...] not appl icable for dialysis patien ts Mail Order Biller ID - DSENSONOperator ID - DSENSONOperator ID - DSENSONOperator ID - DSENSONOperator ID - DSENSONOperator ID - DSENSONOperator ID - DSENSONOperator ID - DSENSONOperator ID - DSENSONOperator ID - WOAQFMJUFUQVVOVS0806-73-93 07:01:36 Test Item Value Reference Range Interpretation Comments MAGNESIUM (BEAKER) 1.5 mg/dL 1.5-3.0 Specimen slightly (test code = 627) hemolyzed Mail Order Biller ID - DSENSONOperator ID - DSENSONOperator ID - DSENSONOperator ID - [id number]6 06:58:57 Test Item Value Reference Range Interpretation Comments PHOSPHORUS (BEAKER) 3.0 mg/dL 2.5-4.5 Specimen slightly (test code = 604) hemolyzed Mail Order Biller ID - DSENSONPrepare [id number] 23:54:00 Test Item Value Reference Range Interpretation Comments CROSSMATCH (test code = 2264) COMPATIBLE Unit ABO (test code = O Neg 5781817) UNIT NUMBER (test code = [id number] 934-0) Status (test code = 6418210) TX_TIMEINCBANNERT Blood Bank Product (test code RED BLOOD CELLS = 2263) PRODUCT CODE (test code = Y3791Q31 933-2) [facility] [id number] 23:37:14 Test Item Value Reference Range Interpretation Comments POC-GLUCOSE METER 219 mg/dL 70-110 H : TESTED A T [facility] [address] (BEAKER) (test code [address], = 1538) [facility] [place] 77 478: Mail Order Biller/Techni lisseth ID = [id number] for Nelli Muller POCT-GLUCOSE [id number] 16:00:19 Test Item Value Reference Range Interpretation Comments POC-GLUCOSE METER 205 mg/dL 70-110 H : TESTED A T [facility] [address] (BEAKER) (test code [address], = 1538) [facility] 77 478: Mail Order Biller/Techni lisseth ID = [id number] for Jigna Latif CT, BRAIN, WITHOUT [id number] 13:53:00 [facility] : 1940 Sex: FFINALREPORT [...] should be considered for further characterization. Signed: Alessio Carlos MDReport Verified Date/Time: 03/02/2022 13:53:51 POCT-GLUCOSE [id number] 12:15:36 Test Item Value Reference Range Interpretation Comments POC-GLUCOSE METER 195 mg/dL 70-110 H : TESTED A T [facility] [address] (BEAKER) (test code [address], = 1538) [place] [address]: Mail Order Biller/Techni lisseth ID = [id number] for Jigna Latif POCT-GLUCOSE [id number] 06:50:22 Test Item Value Reference Range Interpretation Comments POC-GLUCOSE METER 182 mg/dL 70-110 H : TESTED A T [facility] [address] (BEAKER) (test code [address], = 1538) [place] [address]: Mail Order Biller/Techni lisseth ID = [id number] for Ana Maria Finch BASIC METABOLIC [id number] 06:01:29 Test Item Value Reference Range Interpretation [...] not appl icable for dialysis patien ts Mail Order Biller ID - MOAZOABLF032Yrjxqlgu ID - STEPEJCLK868Grwwwonz ID - XNYVEEYNH996Nxoszqgq ID - VNMVUANNM723Ddjrdqbw ID - OIKARVUQO394Reezfbvp ID - TZNAPVKHP034Ncaovyco ID - AKICUYFSP554Vhvqtkou ID - WETYVONMU023Bqiiinse ID - FLWEMCAWG876Woifiqbx ID - NSXTWQSTP417QLOUDLPJG0236-46-29 05:58:57 Test Item Value Reference Range Interpretation Comments MAGNESIUM (BEAKER) (test code = 1.5 mg/dL 1.5-3.0 627) Mail Order Biller ID - QONTCBHQT569Tyreflke ID - KDYGPUFMQ398Ikkiitbw ID - QUXUPZHIL860Tapehyyc ID - PXVYGFSKV834QKCODPYWZC5317-82-74 05:56:30 Test Item Value Reference Range Interpretation Comments PHOSPHORUS (BEAKER) (test code = 2.9 mg/dL 2.5-4.5 604) Mail Order Biller ID - [id number] W/PLT COUNT & AUTO [id number] 05:55:29 Test Item Value Reference Range Interpretation [...] PERCENT (BEAKER) (test code = 2801) POCT-GLUCOSE [id number] 21:06:25 Test Item Value Reference Range Interpretation Comments POC-GLUCOSE METER 295 mg/dL 70-110 H : TESTED A T [facility] [address] (BEAKER) (test code [address], = 1538) [place] [address]: Mail Order Biller/Techni lisseth ID = [id number] for Ana Maria Finch POCT-GLUCOSE [id number] 15:10:34 Test Item Value Reference Range Interpretation Comments POC-GLUCOSE METER 268 mg/dL 70-110 H : TESTED A T [facility] [address] (BEAKER) (test code [address], = 1538) [place] [address]: Mail Order Biller/Techni lisseth ID = [id number] for Will iaJigna banks POCT-GLUCOSE [id number] 11:02:27 Test Item Value Reference Range Interpretation Comments POC-GLUCOSE METER 157 mg/dL 70-110 H : TESTED A T [facility] [address] (BEAKER) (test code [address], = 1538) [facility] [place] 77 [address]: Mail Order Biller/Techni lisseth ID = [id number] for Will iaJigna banks VSETBVVLQ8981-11-03 07:25:48 Test Item Value Reference Range Interpretation Comments MAGNESIUM (BEAKER) 1.8 mg/dL 1.5-3.0 Specimen slightly (test code = 627) hemolyzed Mail Order Biller ID - JPQA41Hoguxjfn ID - VNYF81Uemqggre ID - HKOR87Tuecbgse ID - [id number] BASIC METABOLIC [id number] 07:24:39 Test Item Value Reference Range Interpretation [...] not appl icable for dialysis patien ts Mail Order Biller ID - FKPT59Dtwcaaqz ID - DASE83Cedybxjs ID - KCTR63Oyhzqwqh ID - PKHL50Xrrxoypn ID - WSOG79Gmypeotl ID - VOHV91Zlskpirn ID - LCXJ74Pzbncigm ID - WAVQ66Axzfqlvg ID - MIPR30Uvldqyxr ID - JXVT30SRLKBAMPZQ3286-87-55 07:23:10 Test Item Value Reference Range Interpretation Comments PHOSPHORUS (BEAKER) 3.6 mg/dL 2.5-4.5 Specimen slightly (test code = 604) hemolyzed Mail Order Biller ID - [id number] W/PLT COUNT & AUTO UASCLDKLYRWO7228-90-90 06:59:05 Test Item Value Reference Range Interpretation [...] PERCENT (BEAKER) (test code = 2801) POCT-GLUCOSE [id number] 06:44:18 Test Item Value Reference Range Interpretation Comments POC-GLUCOSE METER 179 mg/dL 70-110 H : TESTED A T [facility] (BEAKER) (test code [facility], = 1538) [place] [address]: Mail Order Biller/Techni lisseth ID = [id number] for Ana Maria Finch POCT-GLUCOSE [id number] 20:39:05 Test Item Value Reference Range Interpretation Comments POC-GLUCOSE METER 242 mg/dL 70-110 H : TESTED A T [facility] [address]17 (BEAKER) (test code [facility], = 1538) [place] [address]: Mail Order Biller/Techni lisseth ID = [id number] for Ana Maria Finch POCT-GLUCOSE [id number] 16:56:49 Test Item Value Reference Range Interpretation Comments POC-GLUCOSE METER 217 mg/dL 70-110 H : TESTED A T [facility] [address]17 (BEAKER) (test code [facility], = 1538) [place] [address]: Mail Order Biller/Techni lisseth ID = [id number] for Katja Coelho BASIC METABOLIC [id number] 13:10:13 Test Item Value Reference Range Interpretation [...] not appl icable for dialysis patien ts Mail Order Biller ID - FPLDCOUEF420Ifuplslm ID - OZDAXBSIB342Ywfnfdjc ID - QQYAACDDB215Wxflkuso ID - VAILLUZIH680Qowcairi ID - WFIWMJGPD387Xczgsejt ID - TJWPVVBMD922Uudclyzw ID - XUYOVMNHY599Hcytlowc ID - DWSCJIWIQ552Jmoiailz ID - AEVYZHKIV186Fydywwbx ID - BNHDTDUXK226YZRDJGWKJ2007-26-12 13:06:45 Test Item Value Reference Range Interpretation Comments MAGNESIUM (BEAKER) (test code = 1.8 mg/dL 1.5-3.0 627) Mail Order Biller ID - BRNLGZNDF989Xcuuxhgp ID - BYFUGIQQC281Msuwwxqz ID - PGDVRTKYA692Zdrrhwda ID - [id number]-38 13:04:07 Test Item Value Reference Range Interpretation Comments PHOSPHORUS (BEAKER) (test code = 3.5 mg/dL 2.5-4.5 604) Mail Order Biller ID - ONBZJOSAH062VBD W/PLT COUNT & AUTO [id number] 12:45:57 Test Item Value Reference Range Interpretation [...] PERCENT (BEAKER) (test code = 2801) POCT-GLUCOSE [id number] 12:43:25 Test Item Value Reference Range Interpretation Comments POC-GLUCOSE METER 174 mg/dL 70-110 H : TESTED A T [facility] [address] (BEAKER) (test code [facility] [address], = 1538) [place] [address]: Mail Order Biller/Techni lisseth ID = [id number] for Katja Coelho Body fluid culture + gram [id number] 09:54:40 Test Item Value Reference Range Interpretation Comments Result (test code = 6463-4) No growth Gram Stain Result (test No organisms seen code = 1123) [facility] gram pggco9871-98-19 09:54:40 Test Item Value Reference Range Interpretation Comments Result (test code = 6463-4) No growth Gram Stain Result (test No organisms seen code = 1123) [facility] + GRAM [id number] 09:54:40 Test Item Value Reference Range Interpretation Comments CULTURE (BEAKER) (test No growth code = 1095) GRAM STAIN RESULT No White blood cells (BEAKER) (test code = seen 1123) GRAM STAIN RESULT No organisms seen (BEAKER) (test code = 02373) POCT-GLUCOSE [id number] 08:03:25 Test Item Value Reference Range Interpretation Comments POC-GLUCOSE METER 148 mg/dL 70-110 H : TESTED A T [facility] [address] (BEAKER) (test code [address], = 1538) [place] [address]: Mail Order Biller/Techni lisseth ID = [id number] for Harvinder quinonez Dora POCT-GLUCOSE [id number] 21:58:03 Test Item Value Reference Range Interpretation Comments POC-GLUCOSE METER 198 mg/dL 70-110 H : TESTED A T [facility] [address] (BEAKER) (test code [address], = 1538) [place] [address]: Mail Order Biller/Techni lisseth ID = [id number] for Visw amohan, Dora POCT-GLUCOSE [id number] 17:52:15 Test Item Value Reference Range Interpretation Comments POC-GLUCOSE METER 228 mg/dL 70-110 H : TESTED A T [facility] [address] (BEAKER) (test code [address], = 1538) [place] [address]: Mail Order Biller/Techni lisseth ID = [id number] for Fredy oKayli POCT-GLUCOSE [id number] 11:53:52 Test Item Value Reference Range Interpretation Comments POC-GLUCOSE METER 196 mg/dL 70-110 H : TESTED A T [facility] [address]17 (BEAKER) (test code [address] [facility], = 1538) [place] [address]: Mail Order Biller/Techni lisseth ID = [id number] for Fredy oKayli VANCOMYCIN LEVEL, [id number] 11:14:09 Test Item Value Reference Range Interpretation Comments VANCOMYCIN RANDOM (BEAKER) (test 19.7 ug/mL code = 523) Reference Range: No NormalsOperator ID - [id number]-RTWRLZF [id number] 06:30:49 Test Item Value Reference Range Interpretation Comments POC-GLUCOSE METER 146 mg/dL 70-110 H : TESTED A T [facility] [address] (BEAKER) (test code [facility], = 1538) [place] [address]: Mail Order Biller/Techni lisseth ID = [id number] for Nancy Retana BASIC METABOLIC [id number] 06:19:05 Test Item Value Reference Range Interpretation [...] G3b Moderately to s everely 30-44 G4 Sever ly decreased 15-29 G5 Kidney failure <15Repo rted eGFR is based on the CKD-EPI 2020 equation t hat does not use a race coefficientEsti mated GFR is not as accur ate as Creatinine Agnieszka gagan in predicting glom erular filtration rate . Estimated GFR is not appl icable for dialysis patien ts Mail Order Biller ID - CXUJ93Qdmcjgsy ID - RIEI89Ktgdfsbm ID - HYSL32Frvkutbp ID - WCVL96Epqzyafx ID - CATC10Awmnfnfo ID - OIWZ22Tobttvis ID - PKAT69Fmgahidn ID - MODY00Iqtusoob ID - ROIJ58Iwoenlwn ID - HTUE14KILZTHNZL4104-00-75 05:50:14 Test Item Value Reference Range Interpretation Comments MAGNESIUM (BEAKER) 1.8 mg/dL 1.5-3.0 Specimen slightly (test code = 627) hemolyzed Mail Order Biller ID - PLCE07Baafrgcr ID - SLQC48Xrxcwxji ID - MFUD16Nqkforwr ID - ZNMP04 SYNITQUPKV8496-02-69 05:47:31 Test Item Value Reference Range Interpretation Comments PHOSPHORUS (BEAKER) 4.0 mg/dL 2.5-4.5 Specimen slightly (test code = 604) hemolyzed Mail Order Biller ID - IFGE10DRN W/PLT COUNT & AUTO MIWXGSGOHOFT2627-80-57 05:10:15 Test Item Value Reference Range Interpretation [...] PERCENT (BEAKER) (test code = 2801) POCT-GLUCOSE [id number] 21:12:41 Test Item Value Reference Range Interpretation Comments POC-GLUCOSE METER 245 mg/dL 70-110 H : TESTED A T [facility] [address] (BEAKER) (test code [facility] [address], = 1538) [facility] 77 478: Mail Order Biller/Techni lisseth ID = [id number] for Gabriela Otero POCT-GLUCOSE [id number] 15:37:19 Test Item Value Reference Range Interpretation Comments POC-GLUCOSE METER 203 mg/dL 70-110 H : TESTED A T [facility] [address] (BEAKER) (test code [address], = 1538) [facility] 77 478: Mail Order Biller/Techni lisseth ID = [id number] for Justyna Mosqueda Body fluid cell count with wnxplwqouwkl1067-50-02 11:12:23 Test Item Value Reference Range Interpretation Comments Appearance (test code Clear Clear = 9335-1) Color (test code = Colorless Colorless, 6824-7) Straw RBCs (test code = 0 See_Comment [Automate d 02424-7) message] The system which generated this result transmitted reference range : <=1 /cu mm. The reference range was not used to interpret this result as normal/abnormal . Adjusted WBC Count 3 See_Comment [Automat ed (test code = 95640-6) messag e] The system which generated this result transmitted reference range : <=5 /cu mm. The reference range was not used to interpret this result as normal/abnormal . Lining Cells (test 0 See_Comment [Automat ed code = 95946-0) message] The system which generated this result transmitted reference range : <=1 /cu mm. The reference range was not used to interpret this result as normal/abnormal . % Segs (test code = 16 % 26761-9) % Lymphs (test code = 20 % 79999-3) % Monos (test code = 64 % 45599-4) % Eos (test code = 0 % 02432-6) % Baso (test code = 0 % 02558-4) Interpretation (test Agree with the code = 68333-6) above count. Negative for malignancy Pathologist: (test Margarita Gardner, code = 2620) M.D. (electronic signature) Container Body Fluid EDTA Tube (test code = 2873) [facility] with wlmfdzfftqjy6824-20-85 11:12:23 Test Item Value Reference Range Interpretation Comments Appearance (test code Clear Clear = 9335-1) Color (test code = Colorless Colorless, 6824-7) Straw RBCs (test code = 0 See_Comment [Automate d 47381-8) message] The system which generated this result transmitted reference range : <=1 /cu mm. The reference range was not used to interpret this result as normal/abnormal . Adjusted WBC Count 3 See_Comment [Automat ed (test code = 47948-0) messag e] The system which generated this result transmitted reference range : <=5 /cu mm. The reference range was not used to interpret this result as normal/abnormal . Adjusted lining 0 See_Comment [Automated cells/Others (test message] The code = 47526-8) system which generated this result transmitted reference range : <=1 /cu mm. The reference range was not used to interpret this result as normal/abnormal . % Segs (test code = 16 % 01726-9) % Lymphs (test code = 20 % 46913-8) % Monos (test code = 64 % 88561-1) % Eos (test code = 0 % 39585-9) % Baso (test code = 0 % 91320-7) Interpretation (test Agree with the code = 29968-1) above count. Negative for malignancy Pathologist: (test Margarita Gradner, code = 2620) M.D. (electronic signature) Container Body Fluid EDTA Tube (test code = 2873) [facility] Center[facility] COUNT WITH WQKNWJMCASQV6221-78-82 11:12:23 Test Item Value Reference Range Interpretation [...] above count. = 2619) Negative for malignancy SWDE-RJDTTMYOKEV-36 Margarita Helekar, 0 (BEAKER) (test M.D. (electronic code = 2620) signature) CONTAINER BODY EDTA Tube FLUID (BEAKER) (test code = 2873) POCT-GLUCOSE [id number] 07:03:20 Test Item Value Reference Range Interpretation Comments POC-GLUCOSE METER 184 mg/dL 70-110 H : TESTED A T [facility] [address] (BEAKER) (test code [facility] [address], = 1538) [facility] 77 478: Mail Order Biller/Techni lisseth ID = [id number] for Gabriela Otero [id number] 07:01:46 Test Item Value Reference Range Interpretation Comments MAGNESIUM (BEAKER) (test code = 1.8 mg/dL 1.5-3.0 627) Mail Order Biller ID - YZKVY545Akvypzcu ID - CPOAT077Hrkqnqng ID - RFJBL828Uhvvjyhm ID - ECANA110GYGSF METABOLIC PACGL4192-03-37 07:01:24 Test Item Value Reference Range Interpretation [...] not appl icable for dialysis patien ts Mail Order Biller ID - LCZGK537Gtidijpc ID - IZHAD370Nnanuanv ID - XGITV422Nngkdtae ID - ICWQO727Pcvkkmng ID - AAHWR093Yllwtpbv ID - DWNFM486Dfsgjwav ID - MOTKU225Cfmblikt ID - JUUKX388Tifdfhln ID - FPNBF538Xzauqosa ID - MPOYE924 ISTXHNSTNX6445-88-95 06:59:04 Test Item Value Reference Range Interpretation Comments PHOSPHORUS (BEAKER) (test code = 4.3 mg/dL 2.5-4.5 604) Mail Order Biller ID - DOZUB093OEL W/PLT COUNT & AUTO FFASYARIHPMJ4296-16-45 06:51:11 Test Item Value Reference Range Interpretation [...] PERCENT (BEAKER) (test code = 2801) POCT-GLUCOSE [id number] 21:41:56 Test Item Value Reference Range Interpretation Comments POC-GLUCOSE METER 217 mg/dL 70-110 H : TESTED A T [address] [address] (BEAKER) (test code [address], = 1538) [place] [address]: Mail Order Biller/Techni lisseth ID = [id number] for Gabriela Otero POCT-GLUCOSE [id number] 18:49:14 Test Item Value Reference Range Interpretation Comments POC-GLUCOSE METER 239 mg/dL 70-110 H : TESTED A T [address] (BEAKER) (test code [address], = 1538) [place] [address]: Mail Order Biller/Techni lisseth ID = [id number] for Elizabeth Armstrong POCT-GLUCOSE IYNWZ8525-63-24 18:49:06 Test Item Value Reference Range Interpretation Comments POC-GLUCOSE METER 226 mg/dL 70-110 H : TESTED A T [address] (BEAKER) (test code [address], = 1538) [facility] 77 478: Mail Order Biller/Techni lisseth ID = [id number] for Elizabeth Armstrong CBC W/PLT COUNT & AUTO VYTVAJHIGHJC9811-55-96 07:19:11 Test Item Value Reference Range Interpretation [...] (BEAKER) (test code = 2801) BASIC METABOLIC [id number] 06:34:01 Test Item Value Reference Range Interpretation [...] not appl icable for dialysis patien ts Mail Order Biller ID - EAZS48Qmsrvfik ID - SPAD27Wlpcumau ID - DTDU78Vhdfeeuz ID - LWRB35Crvousfz ID - PFEK59Vfqxlpqr ID - OTWM19Zmxtgnai ID - RQAM58Pcapqotq ID - SMOT05Rrtxwjgk ID - OFWK16Ijtsykje ID - [id number] 06:32:24 Test Item Value Reference Range Interpretation Comments MAGNESIUM (BEAKER) 1.9 mg/dL 1.5-3.0 Specimen moderately (test code = 627) hemolyzed Mail Order Biller ID - CKDQ73Oknyaomi ID - UTSJ97Kpvjotjk ID - GCAW14Ghuhtnmc ID - ZNMP04 MYIRSTSXNN9121-50-47 06:29:21 Test Item Value Reference Range Interpretation Comments PHOSPHORUS (BEAKER) 4.4 mg/dL 2.5-4.5 Specimen moderately (test code = 604) hemolyzed Mail Order Biller ID - CUEB12LYNN-GZHBAVS GJYKV1963-61-78 06:25:10 Test Item Value Reference Range Interpretation Comments POC-GLUCOSE METER 183 mg/dL 70-110 H : TESTED A T [address] (BEAKER) (test code [address], = 1538) [place] [address]: Mail Order Biller/Techni lisseth ID = [id number] for Ana Maria Finch POCT-GLUCOSE ZQZEA4931-55-05 21:02:53 Test Item Value Reference Range Interpretation Comments POC-GLUCOSE METER 185 mg/dL 70-110 H : TESTED A T [address] (BEAKER) (test code [address], = 1538) [place] [address]: Mail Order Biller/Techni lisseth ID = [id number] for Ana Maria Finch RAD, ABDOMEN/KUB 1 VIEW [id number] 17:02:00Reason for exam:->nausea/vomiting [facility] 1940 Sex: FFINALREPORT Abdomen, 1 view. History: Nausea and vomiting. Comparison: 12/09/2021. Findings: There are no dilated loops of bowel. Catheter overlies the right abdomen. There are no abnormal calcifications. The osseous structures are intact. IMPRESSION:Non-specific bowel gas pattern. Signed: Hemant Alamo Verified Date/Time: 02/24/2022 17:02:47 Reading Location: [facility] Reading Room POCT-GLUCOSE [id number] 16:51:52 Test Item Value Reference Range Interpretation Comments POC-GLUCOSE METER 154 mg/dL 70-110 H : TESTED A T [facility] [address] (BEAKER) (test code [address], = 1538) [place] [id number]: Mail Order Biller/Techni lisseth ID = [id number] for Sharda Caruso POCT-GLUCOSE [id number] 11:51:50 Test Item Value Reference Range Interpretation Comments POC-GLUCOSE METER 201 mg/dL 70-110 H : TESTED A T [facility] [address] (BEAKER) (test code [address], = 1538) [place] [id number] 478: Mail Order Biller/Techni lisseth ID = [id number] for Riley sMatthewSharda U/S, ABDOMINAL, [id number] 11:33:00Reason for exam:->nausea/vomiting [facility] : 1940 Sex: FFINALREPORT [...] kidneys suggesting medical renal disease. Signed: Keely Butler MDReport Verified Date/Time: 02/24/2022 11:33:59 VANCOMYCIN LEVEL, [id number] 11:01:47 Test Item Value Reference Range Interpretation Comments VANCOMYCIN TROUGH (BEAKER) (test 24.3 ug/mL 10.0-20.0 H code = 522) Mail Order Biller ID - [id number] culture + Shiga [id number] 08:53:08 Test Item Value Reference Range Interpretation Comments Result (test code = No Salmonella, Shigella or 6463-4) Campylobacter isolated [facility] culture + Shiga [id number] 08:53:08 Test Item Value Reference Range Interpretation Comments Result (test code = No Salmonella, Shigella or 6463-4) Campylobacter isolated [facility] culture + Shiga [id number] 08:53:08 Test Item Value Reference Range Interpretation Comments Result (test code = No Salmonella, Shigella or 6463-4) Campylobacter isolated [facility] culture + Shiga [id number] 08:53:08 Test Item Value Reference Range Interpretation Comments Result (test code = No Salmonella, Shigella or 6463-4) Campylobacter isolated [facility] culture + Shiga [id number] 08:53:08 Test Item Value Reference Range Interpretation Comments Result (test code = No Salmonella, Shigella or 6463-4) Campylobacter isolated [facility] CULTURE + SHIGA [id number] 08:53:08 Test Item Value Reference Range Interpretation Comments CULTURE (BEAKER) No Salmonella, Shigella (test code = 1095) or Campylobacter isolated CBC W/PLT COUNT & AUTO [id number] 06:29:01 Test Item Value Reference Range Interpretation [...] H PERCENT (BEAKER) (test code = 2801) [id number] 06:28:51 Test Item Value Reference Range Interpretation Comments MAGNESIUM (BEAKER) (test code = 2.0 mg/dL 1.5-3.0 627) Mail Order Biller ID - LITOOperator ID - LITOOperator ID - LITOOperator ID - LITOBASIC METABOLIC [id number] 06:28:45 Test Item Value Reference Range Interpretation [...] not appl icable for dialysis patien ts Mail Order Biller ID - LITOOperator ID - LITOOperator ID - LITOOperator ID - LITOOperator ID - LITOOperator ID - LITOOperator ID - LITOOperator ID - LITOOperator ID - LITOOperator ID - [id number] 06:26:14 Test Item Value Reference Range Interpretation Comments PHOSPHORUS (BEAKER) (test code = 3.9 mg/dL 2.5-4.5 604) Mail Order Biller ID - LITOPOCT-GLUCOSE [id number] 06:14:25 Test Item Value Reference Range Interpretation Comments POC-GLUCOSE METER 189 mg/dL 70-110 H : TESTED A T [facility] [address] (BEAKER) (test code [address], = 1538) [place] [address]: Mail Order Biller/Techni lisseth ID = [id number] for Ana Maria Finch POCT-GLUCOSE [id number] 20:41:20 Test Item Value Reference Range Interpretation Comments POC-GLUCOSE METER 180 mg/dL 70-110 H : TESTED A T [facility] [address] (BEAKER) (test code [address], = 1538) [place] [address]: Mail Order Biller/Techni lisseth ID = [id number] for Ana Maria Finch POCT-GLUCOSE [id number] 15:43:17 Test Item Value Reference Range Interpretation Comments POC-GLUCOSE METER 189 mg/dL 70-110 H : TESTED A T [facility] [address] (BEAKER) (test code [address], = 1538) [place] [address]: Mail Order Biller/Techni lisseth ID = [id number] for Jigna Latif Shiga Toxin [id number] 13:53:06 Test Item Value Reference Range Interpretation Comments Shiga toxin 1 (test code = Not detected Not detected 17848-0) Shiga toxin 2 (test code = Not detected Not detected 27088-1) Lab Interpretation (test code = Normal 00506-7) [facility] Toxin [id number] 13:53:06 Test Item Value Reference Range Interpretation Comments Shiga toxin 1 (test code = Not detected Not detected 61368-7) Shiga toxin 2 (test code = Not detected Not detected 74203-3) Lab Interpretation (test code = Normal 36995-8) [facility] Toxin [id number] 13:53:06 Test Item Value Reference Range Interpretation Comments Shiga toxin 1 (test code = Not detected Not detected 77964-4) Shiga toxin 2 (test code = Not detected Not detected 55309-9) Lab Interpretation (test code = Normal 15192-9) [facility] Toxin [id number] 13:53:06 Test Item Value Reference Range Interpretation Comments Shiga toxin 1 (test code = Not detected Not detected 00698-3) Shiga toxin 2 (test code = Not detected Not detected 19991-7) Lab Interpretation (test code = Normal 48050-8) [facility] Toxin [id number] 13:53:06 Test Item Value Reference Range Interpretation Comments Shiga toxin 1 (test code = Not detected Not detected 92153-6) Shiga toxin 2 (test code = Not detected Not detected 39284-9) Lab Interpretation (test code = Normal 03801-0) [facility] TOXIN [id number] 13:53:06 Test Item Value Reference Range Interpretation Comments SHIGA TOXIN 1 (BEAKER) (test Not detected Not detected code = 2177) SHIGA TOXIN 2 (BEAKER) (test Not detected Not detected code = 2179) HEMOGLOBIN [id number] 13:23:31 Test Item Value Reference Range Interpretation Comments HEMOGLOBIN A1C (BEAKER) (test code = 6.0 % 4.3-6.1 368) Mail Order Biller ID - [id number] [id number] 12:13:11 Test Item Value Reference Range Interpretation Comments POC-GLUCOSE METER 218 mg/dL 70-110 H : TESTED A T [facility] 1317 (BEAKER) (test code [address], = 1538) [facility] 77 478: Mail Order Biller/Techni lisseth ID = [id number] for Jigna Latif STOOL PATH [id number] 09:06:47 Test Item Value Reference Range Interpretation Comments Pathogen exam charged (test code = Done 2380) [facility] PATH [id number] 09:06:47 Test Item Value Reference Range Interpretation Comments Pathogen exam charged (test code = Done 238) [facility] PATH [id number] 09:06:47 Test Item Value Reference Range Interpretation Comments Pathogen exam charged (test code = Done 238) [facility] PATH [id number] 09:06:47 Test Item Value Reference Range Interpretation Comments Pathogen exam charged (test code = Done 2380) [facility] PATH [id number] 09:06:47 Test Item Value Reference Range Interpretation Comments Pathogen exam charged (test code = Done 2380) [facility] [id number] 09:06:47 Test Item Value Reference Range Interpretation Comments PATHOGEN EXAM CHARGED (BEAKER) (test Done code = 2381) VANCOMYCIN LEVEL, [id number] 06:03:32 Test Item Value Reference Range Interpretation Comments VANCOMYCIN RANDOM (BEAKER) (test 24.4 ug/mL code = 523) Reference Range: No NormalsOperator ID - LITOBASIC METABOLIC [id number] 05:57:57 Test Item Value Reference Range Interpretation [...] not appl icable for dialysis patien ts Mail Order Biller ID - LITOOperator ID - LITOOperator ID - LITOOperator ID - LITOOperator ID - LITOOperator ID - LITOOperator ID - LITOOperator ID - LITOOperator ID - LITOOperator ID - [id number] 05:57:10 Test Item Value Reference Range Interpretation Comments MAGNESIUM (BEAKER) (test code = 1.7 mg/dL 1.5-3.0 627) Mail Order Biller ID - LITOOperator ID - LITOOperator ID - LITOOperator ID - JUNO [id number] 05:54:04 Test Item Value Reference Range Interpretation Comments PHOSPHORUS (BEAKER) (test code = 4.3 mg/dL 2.5-4.5 604) Mail Order Biller ID - LITOCBC (HEMOGRAM ONLY)2022-02-23 05:47:59 Test [...] (test code = 413) Clostridium difficile GDH [id number] 22:32:39 Test Item Value Reference Interpretation Comments Range C. Difficle Toxin Positive Negative A (test code = ) C. Difficile GDH Negative Negative i) A low Antigen (test code = percent age of 1629627404) specimens may t est negative for antigen [...] of kit performance was done by the [facility] Microbiology Lab prior to clinical use. Lab Interpretation Abnormal (test code = 52638-4) [facility] [id number] 22:32:39 Test Item Value Reference Interpretation Comments Range C. Difficle Toxin Positive Negative A (test code = 6183581638) C. Difficile GDH Negative Negative i) A low Antigen (test code = percent age of 8551840842) specimens may t est negative for antigen [...] of kit performance was done by the [facility] Microbiology Lab prior to clinical use. Lab Interpretation Abnormal (test code = 64779-4) [facility] [id number] 22:32:39 Test Item Value Reference Interpretation Comments Range C. Difficle Toxin Positive Negative A (test code = 4022954828) C. Difficile GDH Negative Negative i) A low Antigen (test code = percent age of 2067934374) specimens may t est negative for antigen [...] of kit performance was done by the [facility] Microbiology Lab prior to clinical use. Lab Interpretation Abnormal (test code = 79258-3) [facility] [id number] 22:32:39 Test Item Value Reference Interpretation Comments Range C. Difficle Toxin Positive Negative A (test code = 7538302968) C. Difficile GDH Negative Negative i) A low Antigen (test code = percent age of 1111400140) specimens may t est negative for antigen [...] at the request of the physician o carley Nicholas Contr nithin. BETH (test code = Testing performed BETH) by Alere Rapid Cassette Assay. For GDH, published sensitivity of the assay is 98.7% compared to cytotoxicity testing. For Toxin AB, published sensitivity is 87.8% and specificity 99.4% compared to cytotoxicity testing.Verificati on of kit performance was done by the [facility] Microbiology Lab prior to clinical use. Lab Interpretation Abnormal (test code = 53305-9) [facility] [id number] 22:32:39 Test Item Value Reference Interpretation Comments Range C. Difficle Toxin Positive Negative A (test code = 2956711960) C. Difficile GDH Negative Negative i) A low Antigen (test code = percent age of 4162470974) specimens may t est negative for antigen [...] of kit performance was done by the [facility] Microbiology Lab prior to clinical use. Lab Interpretation Abnormal (test code = 68141-8) [facility]. DIFFICILE GDH [id number] 22:32:39 Test Item Value Reference Range Interpretation Comments CDT TOXIN (test code Positive Negative A = 0529040202) CDT GDH ANTIGEN Negative Negative i) A low per centage of (test code = specimens may t est 0522581877) negative for an tigen but positive for to jazmyn. These samples should be considered inde terminate and retested us ing a fresh specimen. If sample retests negativ e for antigen but pos itive for toxin:Result in dicates high antibody p roduction against antigen in relapsing patie nts that may bind GDH an d cause nonreactive res ults or less likely field crop grower ss reaction with C . Sordellii. ID consultation is highly recommended. Co ntinue enteric isolati on in patients with p ersistent diarrhea until 72 hours after symptoms have resolved.ii) Fo r confirmation, C . diff Toxin PCR (tcdB nucleic acid amplificat ion)test may be performe d at the request of the physician or Infection Co ntrol. Testing performed by Alere Rapid Cassette Assay. For GDH, published sensitivity of the assay is 98.7% compared to cytotoxicity testing. For Toxin AB, published sensitivity is 87.8% and specificity 99.4% compared to cytotoxicity testing.Verification of kit performance was done by the [facility] Microbiology[facility] prior to clinical use.POCT-GLUCOSE [id number] 13:23:46 Test Item Value Reference Range Interpretation Comments POC-GLUCOSE METER 160 mg/dL 70-110 H : [facility] (test code [address], = 1538) [facility] 77 [address]: Mail Order Biller/Techni lisseth ID = [id number] for Elizabeth Armstrong POCT-GLUCOSE [id number] 07:18:48 Test Item Value Reference Range Interpretation Comments POC-GLUCOSE METER 176 mg/dL 70-110 H : TESTED A T [facility] [address] (BEAKER) (test code [address], = 1538) [facility] 77 [address]: Mail Order Biller/Techni lisseth ID = [id number] for Katja Coelho BLOOD [id number] 07:01:32 Test Item Value Reference Range Interpretation Comments CULTURE (BEAKER) (test No growth in 5 days code = 1095) BLOOD [id number] 07:01:32 Test Item Value Reference Range Interpretation Comments CULTURE (BEAKER) (test No growth in 5 days code = 1095) BASIC METABOLIC [id number] 05:27:40 Test Item Value Reference Range Interpretation [...] not appl icable for dialysis patien ts Mail Order Biller ID - [id number] ID - TIWTBIWJU779Josefbul ID - BKENHJSFT398Fkaigbgx ID - YYRCKUZZT873Hcpvzarg ID - HVVDIEIWD033Qzhdgesj ID - KGOWXQOKZ998Mxqahmol ID - WDSNIIGTX020Heqbllqf ID - UHEFLOZLH319Yvwsgoqy ID - MDJJXOTQO646Zoqnjabj ID - ZOQEAZBPU668Wqjcfgwz ID - NZUISCTGF064Gitrbmiu ID - MVUAYYQKL173Murzraem ID - [id number] (HEMOGRAM ONLY)2022-02-22 05:08:25 Test Item Value Reference [...] 0-0 (BEAKER) (test code = 413) POCT-GLUCOSE [id number] 22:10:50 Test Item Value Reference Range Interpretation Comments POC-GLUCOSE METER 192 mg/dL 70-110 H : TESTED A T [facility] [address] (BEAKER) (test code [facility] [address], = 1538) [place] [address]: Mail Order Biller/Techni lisseth ID = [id number] for Katja Coelho POCT-GLUCOSE [id number] 17:06:33 Test Item Value Reference Range Interpretation Comments POC-GLUCOSE METER 132 mg/dL 70-110 H : TESTED A T [facility] [address] (BEAKER) (test code [address], = 1538) [place] [address]: Mail Order Biller/Techni lisseth ID = [id number] for Dapr emont, Justyna POCT-GLUCOSE [id number] 11:18:35 Test Item Value Reference Range Interpretation Comments POC-GLUCOSE METER 154 mg/dL 70-110 H : TESTED A T [facility] [address] (BEAKER) (test code [address] [facility], = 1538) [place] [address]: Mail Order Biller/Techni lisseth ID = [id number] for Dapr emont, Justyna PERITONEAL DIALYSIS EFFLUENT [id number] 11:16:21 Test Item Value Reference Range Interpretation [...] pairs Corrected report of gram stain to Nelli@1220;POCT-GLUCOSE [id number] 06:30:02 Test Item Value Reference Range Interpretation Comments POC-GLUCOSE METER 138 mg/dL 70-110 H : Notified RN/MD: TESTED (BEAKER) (test code AT [facility] [address] = 1538) [place] [address]: Mail Order Biller/Techni lisseth ID = [id number] for Cynthia Lozoya BASIC METABOLIC [id number] 06:18:23 Test Item Value Reference Range Interpretation [...] not appl icable for dialysis patien ts Mail Order Biller ID - LITOOperator ID - LITOOperator ID [...] 0-0 (BEAKER) (test code = 413) POCT-GLUCOSE [id number] 20:29:43 Test Item Value Reference Range Interpretation Comments POC-GLUCOSE METER 200 mg/dL 70-110 H : TESTED A T [facility] [address] (BEAKER) (test code [facility], = 1538) [place] [address]: Mail Order Biller/Techni lisseth ID = [id number] for Sera Latif POCT-GLUCOSE [id number] 19:36:05 Test Item Value Reference Range Interpretation Comments POC-GLUCOSE METER 149 mg/dL 70-110 H : TESTED A T [facility] [address] (BEAKER) (test code [facility], = 1538) [place] [address]: Mail Order Biller/Techni lisseth ID = [id number] for Riley sMatthewSharda POCT-GLUCOSE [id number] 11:59:00 Test Item Value Reference Range Interpretation Comments POC-GLUCOSE METER 147 mg/dL 70-110 H : TESTED A T [facility] [address] (BEAKER) ([facility] [place] [address]: Mail Order Biller/Techni lisseth ID = [id number] for Riley s, Sharda POCT-GLUCOSE [id number] 10:04:03 Test Item Value Reference Range Interpretation Comments POC-GLUCOSE METER 161 mg/dL 70-110 H : TESTED A T [facility] [address] (BEAKER) (test code [address], = 1538) [facility] 77 [address]: Mail Order Biller/Techni lisseth ID = [id number] for Nelli Muller BASIC METABOLIC [id number] 06:14:42 Test Item Value Reference Range Interpretation [...] not appl icable for dialysis patien ts Mail Order Biller ID - NSLMTMBDC206Hkzrbfnl ID - WCMXNCDIX589Vikzhiwg ID - LAHZNNCLN356Rjcihteh ID - NNWATVBCD048Ugmbkumk ID - FHMVXLSPS280Llriiuns ID - FRHETSLXR845Euadtmbj ID - ZLWITHUAY236Mquqfoxh ID - DKLHISYJN758Kzwwmdkl ID - OPSJIFZHJ507Mshbxbxv ID - [id number] 06:12:44 Test Item Value Reference Range Interpretation Comments MAGNESIUM (BEAKER) (test code = 1.8 mg/dL 1.5-3.0 627) Mail Order Biller ID - [id number] ID - [id number] ID - LKLJMRUEK359Wifjlouj ID - [id number]-LYWQGCN [id number] 06:11:02 Test Item Value Reference Range Interpretation Comments POC-GLUCOSE METER 148 mg/dL 70-110 H : Notified RN/MD: TESTED (BEAKER) (test code AT [facility] [address] = 1538) [place] [address]: Mail Order Biller/Techni lisseth ID = [id number] for Cynthia Lozoya [id number] 06:09:46 Test Item Value Reference Range Interpretation Comments PHOSPHORUS (BEAKER) (test code = 3.2 mg/dL 2.5-4.5 604) Mail Order Biller ID - [id number] W/PLT COUNT & AUTO [id number] 05:52:19 Test Item Value Reference Range Interpretation [...] PERCENT (BEAKER) (test code = 2801) POCT-GLUCOSE [id number] 21:13:33 Test Item Value Reference Range Interpretation Comments POC-GLUCOSE METER 162 mg/dL 70-110 H : TESTED A T [facility] [address] (BEAKER) (test code [facility], = 1538) [place] [address]: Mail Order Biller/Techni lisseth ID = [id number] for Katja Coelho POCT-GLUCOSE [id number] 20:46:03 Test Item Value Reference Range Interpretation Comments POC-GLUCOSE METER 161 mg/dL 70-110 H : TESTED A T [facility] [address] (BEAKER) (test code [facility], = 1538) [place] [address]: Mail Order Biller/Techni lisseth ID = [id number] for Shin slaterBreey BODY FLUID CELL COUNT WITH [id number] 18:57:42 Test Item Value Reference Range Interpretation Comments APPEARANCE FLUID Hazy Clear A (BEAKER) (test code = 510) COLOR FLUID Yellow Colorless, Straw A (BEAKER) (test code = 511) RBC FLUID (BEAKER) 100 /cu mm See_Comment H [Automat ed (test code = 513) message] T he system which generated this result transmitted reference range : <=1. The reference range was not used to interpret this result as normal/abnormal . ADJUSTED WBC FLUID 2020 /cu mm See_Comment H [Automat ed (BEAKER) [...] inflammation (BEAKER) (test seen code = 2619) [id number] Margarita Helekar, 10 (BEAKER) (test M.D. (electronic code = 2620) signature) CONTAINER BODY Sterile Cup FLUID (BEAKER) (test code = 2873) POCT-GLUCOSE [id number] 12:54:55 Test Item Value Reference Range Interpretation Comments POC-GLUCOSE METER 176 mg/dL 70-110 H : TESTED A T [facility] 1317 (BEAKER) (test code [facility] [address], = 1538) [facility] 77 478: Mail Order Biller/Techni lisseth ID = [id number] for Bessy Nelson VANCOMYCIN LEVEL, [id number] 09:14:45 Test Item Value Reference Range Interpretation Comments VANCOMYCIN TROUGH (BEAKER) (test 12.5 ug/mL 10.0-20.0 code = 522) Mail Order Biller ID - DSENSONOperator ID - [id number] METABOLIC [id number] 08:37:26 Test Item Value Reference Range Interpretation [...] not appl icable for dialysis patien ts Mail Order Biller ID - DSENSONOperator ID - DSENSONOperator ID - DSENSONOperator ID - DSENSONOperator ID - DSENSONOperator ID - DSENSONOperator ID - DSENSONOperator ID - DSENSONOperator ID - DSENSONOperator ID - [id number] 08:36:58 Test Item Value Reference Range Interpretation Comments MAGNESIUM (BEAKER) (test code = 1.7 mg/dL 1.5-3.0 627) Mail Order Biller ID - DSENSONOperator ID - DSENSONOperator ID - DSENSONOperator ID - [id number] 08:34:10 Test Item Value Reference Range Interpretation Comments PHOSPHORUS (BEAKER) (test code = 3.1 mg/dL 2.5-4.5 604) Mail Order Biller ID - DSENSONCBC W/PLT COUNT & AUTO [id number] 07:55:19 Test Item Value Reference Range Interpretation [...] PERCENT (BEAKER) (test code = 2801) POCT-GLUCOSE [id number] 06:43:45 Test Item Value Reference Range Interpretation Comments POC-GLUCOSE METER 167 mg/dL 70-110 H : TESTED A T [facility] [address] (BEAKER) (test code [address] [facility], = 1538) [place] [address]: Mail Order Biller/Techni lisseth ID = [id number] for Sola ety, Nancy POCT-GLUCOSE [id number] 23:09:23 Test Item Value Reference Range Interpretation Comments POC-GLUCOSE METER 198 mg/dL 70-110 H : TESTED A T [facility] [address] (BEAKER) (test code [facility] NT [facility], = 1538) [place] [address]: Mail Order Biller/Techni lisseth ID = [id number] for Sola ety, Nancy POCT-GLUCOSE [id number] 18:55:56 Test Item Value Reference Range Interpretation Comments POC-GLUCOSE METER 204 mg/dL 70-110 H : TESTED A T [facility] [address] (BEAKER) (test code [facility] NT [facility], = 1538) [place] [address]: Mail Order Biller/Techni lisseth ID = [id number] for Elizabeth Armstrong HEPATITIS B SURFACE [id number] 11:36:31 Test Item Value Reference Range Interpretation Comments HEPATITIS B SURFACE ANTIBODY < mIU/mL <8.0 (BEAKER) (test code = 647) Mail Order Biller ID - BSPOCT-GLUCOSE [id number] 06:21:23 Test Item Value Reference Range Interpretation Comments POC-GLUCOSE METER 203 mg/dL 70-110 H : TESTED A T [facility] [address] (BEAKER) (test code [facility] NT [facility], = 1538) [place] [address]: Mail Order Biller/Techni lisseth ID = [id number] for Panchito carmen Fitogracie POCT-GLUCOSE [id number] 06:20:51 Test Item Value Reference Range Interpretation Comments POC-GLUCOSE METER 237 mg/dL 70-110 H : TESTED A T [facility] [address] (BEAKER) (test [facility] 1538[facility] [place] [address]: Mail Order Biller/Techni lisseth ID = [id number] for Ana Maria Finch POCT-GLUCOSE [id number] 05:54:35 Test Item Value Reference Range Interpretation Comments POC-GLUCOSE METER 188 mg/dL 70-110 H : Notified RN/MD: TESTED (BEAKER) (test code AT [facility] [address] = 1538) [place] [address]: Mail Order Biller/Techni lisseth ID = [id number] for Cynthia Lozoya HEPATITIS B SURFACE [id number] 05:04:05 Test Item Value Reference Range Interpretation Comments HEPATITIS B SURFACE ANTIGEN (2) Nonreactive Nonreactive (BEAKER) (test code = 2585) Mail Order Biller ID - LITOBASIC METABOLIC [id number] 05:00:12 Test Item Value Reference Range Interpretation [...] not appl icable for dialysis patien ts Mail Order Biller ID - LITOOperator ID - LITOOperator ID - LITOOperator ID - LITOOperator ID - LITOOperator ID - LITOOperator ID - LITOOperator ID - LITOOperator ID - LITOOperator ID - [id number] 04:48:51 Test Item Value Reference Range Interpretation Comments MAGNESIUM (BEAKER) (test code = 1.5 mg/dL 1.5-3.0 627) Mail Order Biller ID - LITOOperator ID - LITOOperator ID - LITOOperator ID - JUNO [id number] 04:46:11 Test Item Value Reference Range Interpretation Comments PHOSPHORUS (BEAKER) (test code = 3.3 mg/dL 2.5-4.5 604) Mail Order Biller ID - LITOCBC W/PLT COUNT & AUTO [id number] 04:39:55 Test Item Value Reference Range Interpretation [...] PERCENT (BEAKER) (test code = 2801) POCT-GLUCOSE [id number] 18:55:16 Test Item Value Reference Range Interpretation Comments POC-GLUCOSE METER 170 mg/dL 70-110 H : TESTED A T [facility] [address] (BEAKER) (test code [facility] NT [facility], = 1538) [place] [address]: Mail Order Biller/Techni lisseth ID = [id number] for Katja Coelho POCT-GLUCOSE [id number] 12:49:25 Test Item Value Reference Range Interpretation Comments POC-GLUCOSE METER 190 mg/dL 70-110 H : TESTED A T [facility] [address] (BEAKER) (test code [address], = 1538) [place] [address]: Mail Order Biller/Techni lisseth ID = [id number] for Freda Baker VANCOMYCIN LEVEL, [id number] 12:07:26 Test Item Value Reference Range Interpretation Comments VANCOMYCIN RANDOM (BEAKER) (test 15.4 ug/mL code = 523) Reference Range: No NormalsOperator ID - [id number] 07:06:01 Test Item Value Reference Range Interpretation Comments PROTIME (BEAKER) 12.8 seconds 9.3-12.0 H Final Infor mation (test code = 759) (Auto Outp ut) INR (BEAKER) (test 1.18 See_Comment Final Inf ormation code = 370) (Auto Output) [Automated mess age] The system [employer] generated this result transmitted ref erence range: <=5.90. The reference range was not used to int erpret this result as normal/abnormal . RECOMMENDED COUMADIN/WARFARIN INR THERAPY RANGESSTANDARD DOSE: 2.0 - 3.0 Includes: PROPHYLAXIS for venous thrombosis, systemic embolization; TREATMENT for venous thrombosis and/or pulmonary embolus.HIGH RISK: Target INR is 2.5-3.5 for patients with mechanical heart valves.POCT-GLUCOSE [id number] 06:49:43 Test Item Value Reference Range Interpretation Comments POC-GLUCOSE METER 127 mg/dL 70-110 H : TESTED A T [facility] 1317 (BEAKER) (test code [address], = 1538) [facility] 77 478: Mail Order Biller/Techni lisseth ID = [id number] for Ana Maria Finch HEMOGLOBIN [id number] 04:38:22 Test Item Value Reference Range Interpretation Comments HEMOGLOBIN A1C (BEAKER) (test code = 5.8 % 4.3-6.1 368) Mail Order Biller ID - [id number] [id number] 04:26:01 Test Item Value Reference Range Interpretation [...] Borderline 130-159 High 160-189 Very High >=190 Mail Order Biller ID - [id number] ID - JRCT46Kqdajxhr ID - NDIL45QVOXJOD FUNCTION [id number] 04:25:55 Test Item Value Reference Range Interpretation [...] Specimen slightly (test code = 347) hemolyzed Mail Order Biller ID - [id number] ID - ZWTQ99Taqkzqpl ID - RGFO85Auxcsljc ID - BLRD41Fipihkum ID - VCGT94Tgyderff ID - UZUC14Rkswnsbb ID - [id number] METABOLIC [id number] 04:25:42 Test Item Value Reference Range Interpretation [...] is not as accur ate as Creatinine Agniezska gagan in predicting glom erular filtration rate . Estimated GFR is not appl icable for dialysis patien ts Mail Order Biller ID - QEMR69Rpjxndko ID - CVNW43Cgralgtp ID - EKXA53Ecvaglsf ID - FFYG33Htgzmonv ID - TFED60Kavkdtme ID - KKKP83Itguyqab ID - YXRX76Yxnbtldv ID - VRWE22Teyjoxau ID - IJAN42Bxfzslqv ID - [id number] 04:22:35 Test Item Value Reference Range Interpretation Comments MAGNESIUM (BEAKER) 1.5 mg/dL 1.5-3.0 Specimen slightly (test code = 627) hemolyzed Mail Order Biller ID - PUYD20Kcxmvmhl ID - FCFB99Wmerpncy ID - WTOL94Qyouqwxp ID - [id number] [id number] 04:18:28 Test Item Value Reference Range Interpretation Comments PHOSPHORUS (BEAKER) 3.4 mg/dL 2.5-4.5 Specimen slightly (test code = 604) hemolyzed Mail Order Biller ID - [id number] W/PLT COUNT & AUTO [id number] 04:10:29 Test Item Value Reference Range Interpretation [...] (BEAKER) (test code = 2801) BASIC METABOLIC [id number] 13:28:43 Test Item Value Reference Range Interpretation [...] patien ts Body fluid culture + gram [id number] 16:12:17 Test Item Value Reference Range Interpretation Comments Result (test code = No growth 6463-4) Gram Stain Result No organisms seen (test code = 1123) BETH (test code = BETH) Culture processed during Downtime in November 2021. [facility] [id number] 16:12:17 Test Item Value Reference Range Interpretation Comments CULTURE (BEAKER) (test code No growth = 1095) GRAM STAIN RESULT (BEAKER) 1+ WBCs (test code = 1123) GRAM STAIN RESULT (BEAKER) No organisms seen (test code = 513595) Culture processed during Downtime in November 2021.POC-Glucose [id number] 10:20:03 Test Item Value Reference Range Interpretation Comments POC-Glucose Meter (test 130 mg/dL 70-110 H : TE STED AT [facility] code = 1538) [address] [facility], 770 30: Mail Order Biller/Techni lisseth ID = [id number] for STOKES, AGLAE Lab Interpretation (test Abnormal code = 26794-4) [facility]-Glucose [id number] 10:20:03 Test Item Value Reference Range Interpretation Comments POC-Glucose Meter (test 130 mg/dL 70-110 H : TE STED AT [facility] code = 1538) [address] [facility], 770 30: Mail Order Biller/Techni lisseth ID = [id number] for STOKES, AGLAE Lab Interpretation (test Abnormal code = 40027-7) [facility]-Glucose [id number] 10:20:03 Test Item Value Reference Range Interpretation Comments POC-Glucose Meter (test 130 mg/dL 70-110 H : TE STED AT [facility] code = 1538) [address] [facility], 770 30: Mail Order Biller/Techni lisseth ID = [id number] for STOKES, AGLAE Lab Interpretation (test Abnormal code = 93182-6) [facility]-Glucose [id number] 10:20:03 Test Item Value Reference Range Interpretation Comments POC-Glucose Meter (test 130 mg/dL 70-110 H : TE STED AT [facility] code = 1538) [address] [place] [address], 770 30: Mail Order Biller/Techni lisseth ID = [id number] for STOKES, AGLAE Lab Interpretation (test Abnormal code = 25876-8) [facility]-Glucose [id number] 10:20:03 Test Item Value Reference Range Interpretation Comments POC-Glucose Meter (test 130 mg/dL 70-110 H : TE STED AT [facility] code = 1538) [address] [place] [address], 770 30: Mail Order Biller/Techni lisseth ID = [id number] for STOKES, AGLAE Lab Interpretation (test Abnormal code = 76298-3) [facility]-GLUCOSE [id number] 10:20:03 Test Item Value Reference Range Interpretation Comments POC-GLUCOSE METER 130 mg/dL 70-110 H : TESTED A T [facility] 6720 (BEAKER) (test code = DEION Calderón [facility], 1538) [address]12[address]: Mail Order Biller/Techni lisseth ID = [id number] for HI DALGO, AGLAE BLOOD [id number] 02:59:29 Test Item Value Reference Range Interpretation Comments CULTURE (BEAKER) (test No growth in 5 days code = 1095) BLOOD [id number] 02:59:29 Test Item Value Reference Range Interpretation Comments CULTURE (BEAKER) (test No growth in 5 days code = 1095) The specimen volume collected for this blood culture was below the optimum (10 mL per bottle or 20 mL total). Use of lower volumes may adversely affect recovery and/or detection times of some organisms.POC-Glucose [id number] 18:04:09 Test Item Value Reference Range Interpretation Comments POC-Glucose Meter (test 132 mg/dL 70-110 H : TE STED AT [facility] code = 1538) [address] [facility], 770 30: Mail Order Biller/Techni lisseth ID = [id number] for CIRILO STOKESE Lab Interpretation (test Abnormal code = 65579-7) [facility] [id number] 18:04:09 Test Item Value Reference Range Interpretation Comments POC-GLUCOSE METER 132 mg/dL 70-110 H : [facility] ([facility] (test code = [facility], 153) [address]: Mail Order Biller/Techni lisseth ID = [id number] for HI CHARLES, WESTONLAE POCT-GLUCOSE [id number] 17:37:16 Test Item Value Reference Range Interpretation Comments POC-GLUCOSE METER 162 mg/dL 70-110 H : Notified RN/MD: ([facility]) (test code = TESTED AT [place] [address] 153) [facility], [address]: Mail Order Biller/Techni lisseth ID = [id number] for DAVID PAMELA JAGRUTI POCT-GLUCOSE [id number] 17:28:31 Test Item Value Reference Range Interpretation Comments POC-GLUCOSE METER 129 mg/dL 70-110 H : [facility] ([facility]) (test code = [facility], 153) [address]: Mail Order Biller/Techni lisseth ID = [id number] for Re otilia, Rowena POCT-GLUCOSE [id number] 17:16:33 Test Item Value Reference Range Interpretation Comments POC-GLUCOSE METER 151 mg/dL 70-110 H : [facility] (test code = [facility], 153) 59444: Mail Order Biller/Techni lisseth ID = [id number] for Re otilia, Rowena POCT-GLUCOSE [id number] 17:04:30 Test Item Value Reference Range Interpretation Comments POC-GLUCOSE METER 128 mg/dL 70-110 H : [facility] ([facility]) (test code = [facility], 153) 71099: Mail Order Biller/Techni lisseth ID = [id number] for Ga ry, Staci POCT-GLUCOSE [id number] 16:41:09 Test Item Value Reference Range Interpretation Comments POC-GLUCOSE METER 149 mg/dL 70-110 H : TESTED A T [facility] 6720 (BEAKER) (test code = [facility], 1538) 52468: Mail Order Biller/Techni lisseth ID = [id number] for VALDEMAR WELCH (V)QUINTON POCT-GLUCOSE [id number] 16:38:03 Test Item Value Reference Range Interpretation Comments POC-GLUCOSE METER 160 mg/dL 70-110 H : TESTED A T [facility] 6720 (BEAKER) (test code = [facility], 1538) [address]: Mail Order Biller/Techni lisseth ID = [id number] for MANJIT DONISORE, DHAVAL POCT-GLUCOSE [id number] 16:30:30 Test Item Value Reference Range Interpretation Comments POC-GLUCOSE METER 107 mg/dL 70-110 : TESTED A T [facility] 6720 (BEAKER) (test code = [facility], 1538) 53275: Mail Order Biller/Techni lisseth ID = [id number] for MANJIT LLIAMS, POCT-GLUCOSE [id number] 16:14:56 Test Item Value Reference Range Interpretation Comments POC-GLUCOSE METER 198 mg/dL 70-110 H : TESTED A T [facility] 6720 (BEAKER) (test code = [facility], 1538) 314[address]: Mail Order Biller/Techni lisseth ID = [id number] for [place] LLIAMS, GRULLON POCT-GLUCOSE [id number] 16:05:04 Test Item Value Reference Range Interpretation Comments POC-GLUCOSE METER 151 mg/dL 70-110 H : TESTED A T [facility] 6720 (BEAKER) (test code = [facility], 1538) 97661: Mail Order Biller/Techni lisseth ID = [id number] for [place] LLIAMS, GRULLON POCT-GLUCOSE [id number] 15:38:41 Test Item Value Reference Range Interpretation Comments POC-GLUCOSE METER 156 mg/dL 70-110 H : TESTED A T [facility] 6720 (BEAKER) (test code = [facility], 1538) 18033: Mail Order Biller/Techni lisseth ID = [id number] for Be llard (contract), Reg hele POCT-GLUCOSE [id number] 15:33:07 Test Item Value Reference Range Interpretation Comments POC-GLUCOSE METER 101 mg/dL 70-110 : [facility] ([facility]) (test code = [facility], 153) 33714: Mail Order Biller/Techni lisseth ID = [id number] for [place] LLIS, ANNMARIE POCT-GLUCOSE [id number] 15:24:47 Test Item Value Reference Range Interpretation Comments POC-GLUCOSE METER 152 mg/dL 70-110 H : [facility] ([facility]) (test code = [facility], 153) 076[address]: Mail Order Biller/Techni lisseth ID = [id number] for [place] LLIS, ANNMARIE POCT-GLUCOSE [id number] 15:22:11 Test Item Value Reference Range Interpretation Comments POC-GLUCOSE METER 158 mg/dL 70-110 H : [facility] ([facility]) (test code = [facility], 153) 80848: Mail Order Biller/Techni lisseth ID = [id number] for [place] LLIS, ANNMARIE POCT-GLUCOSE [id number] 15:17:38 Test Item Value Reference Range Interpretation Comments POC-GLUCOSE METER 218 mg/dL 70-110 H : Notified RN/MD: ([facility]) (test code = TESTED AT [place] [address] 153) [facility], [address]: Mail Order Biller/Techni lisseth ID = [id number] for JAGRUTI PEARCE POCT-GLUCOSE [id number] 15:15:09 Test Item Value Reference Range Interpretation Comments POC-GLUCOSE METER 153 mg/dL 70-110 H : [facility] ([facility]) (test code = [facility], 153) [address]: Mail Order Biller/Techni lisseth ID = [id number] for Ga ry, Staci POCT-GLUCOSE [id number] 15:13:02 Test Item Value Reference Range Interpretation Comments POC-GLUCOSE METER 160 mg/dL 70-110 H : [facility] ([facility]) (test code = [facility], 153) 39[address]: Mail Order Biller/Techni lisseth ID = [id number] for Ga ry, Staci POCT-GLUCOSE [id number] 15:11:17 Test Item Value Reference Range Interpretation Comments POC-GLUCOSE METER 161 mg/dL 70-110 H : [facility] (BE[facility]ER[facility] (test code = [facility], 153) [address]326: Mail Order Biller/Techni lisseth ID = [id number] for Ga ry, Staci POCT-GLUCOSE [id number] 15:05:53 Test Item Value Reference Range Interpretation Comments POC-GLUCOSE METER 156 mg/dL 70-110 H : Notified RN/MD: ([facility]) (test code = TESTED AT [facility] 6720 1538) [facility], [address]: Mail Order Biller/Techni lisseth ID = [id number] for JAGRUTI PEARCE POCT-GLUCOSE [id number] 13:54:33 Test Item Value Reference Range Interpretation Comments POC-GLUCOSE METER 175 mg/dL 70-110 H : [facility] ([facility]) (test code = [facility], 153) 23909: Mail Order Biller/Techni lisseth ID = [id number] for Ga ry, Staci POC-Glucose [id number] 13:46:16 Test Item Value Reference Range Interpretation Comments POC-Glucose Meter (test 131 mg/dL 70-110 H : TE STED AT [facility] code = 1538) [address] [facility], 770 30: Mail Order Biller/Techni lisseth ID = [id number] for Staci Bass Lab Interpretation (test Abnormal code = 96844-2) [facility] [id number] 13:46:16 Test Item Value Reference Range Interpretation Comments POC-GLUCOSE METER 131 mg/dL 70-110 H : TESTED A T [facility] 6720 (BEAKER) (test code = [facility], 153) 290[address]: Mail Order Biller/Techni lisseth ID = [id number] for Ga ry, Staci POCT-GLUCOSE [id number] 13:37:03 Test Item Value Reference Range Interpretation Comments POC-GLUCOSE METER 158 mg/dL 70-110 H : [facility] ([facility]ER) (test code = [facility], 153) 034[address]: Mail Order Biller/Techni lisseth ID = [id number] for Ga ry, Staci POCT-GLUCOSE [id number] 13:12:27 Test Item Value Reference Range Interpretation Comments POC-GLUCOSE METER 127 mg/dL 70-110 H : TESTED A T [facility] 6720 (BEAKER) (test code = [facility], [facility]8) [address]236: Mail Order Biller/Techni lisseth ID = [id number] for Be llard (contract), Reg hele POCT-GLUCOSE [id number] 13:04:15 Test Item Value Reference Range Interpretation Comments POC-GLUCOSE METER 129 mg/dL 70-110 H : TESTED A T [facility] 6720 (BEAKER) (test code = [facility], [facility]8) [address]: Mail Order Biller/Techni lisseth ID = [id number] for Ga ry, Staci POCT-GLUCOSE [id number] 12:49:00 Test Item Value Reference Range Interpretation Comments POC-GLUCOSE METER 137 mg/dL 70-110 H : TESTED A T [facility] 6720 (BEAKER) (test code = [facility], [facility]8) 61244: Mail Order Biller/Techni lisseth ID = [id number] for Ga ry, Staci POCT-GLUCOSE [id number] 12:37:25 Test Item Value Reference Range Interpretation Comments POC-GLUCOSE METER 215 mg/dL 70-110 H : TESTED A T [facility] 6720 (BEAKER) (test code = [facility], [facility]8) 09059: Mail Order Biller/Techni lisseth ID = [id number] for Ga ry, Staci POCT-GLUCOSE [id number] 12:12:20 Test Item Value Reference Range Interpretation Comments POC-GLUCOSE METER 195 mg/dL 70-110 H : TESTED A T [facility] 6720 (BEAKER) (test code = [facility], [facility]8) 12448: Mail Order Biller/Techni lisseth ID = [id number] for CR ISWELL, TIA POCT-GLUCOSE [id number] 12:04:26 Test Item Value Reference Range Interpretation Comments POC-GLUCOSE METER 179 mg/dL 70-110 H : TESTED A T [facility] 6720 (BEAKER) (test code = [facility], [facility]8) 58583: Mail Order Biller/Techni lisseth ID = [id number] for [place] LLIS, ANNMARIE POCT-GLUCOSE [id number] 11:52:37 Test Item Value Reference Range Interpretation Comments POC-GLUCOSE METER 167 mg/dL 70-110 H : TESTED A T [facility] 6720 (BEAKER) (test code = [facility], [facility]) 69482: Mail Order Biller/Techni lisseth ID = [id number] for WI LLIS, ANNMARIE POCT-GLUCOSE [id number] 11:39:44 Test Item Value Reference Range Interpretation Comments POC-GLUCOSE METER 166 mg/dL 70-110 H : TESTED A T [facility] 6720 (BEAKER) (test code = [facility], [facility]) [address]2396: Mail Order Biller/Techni lisseth ID = [id number] for WI LLIS, ANNMARIE POCT-GLUCOSE [id number] 11:17:28 Test Item Value Reference Range Interpretation Comments POC-GLUCOSE METER 160 mg/dL 70-110 H : TESTED A T [facility] 6720 (BEAKER) (test code = [facility], [facility]) [address]: Mail Order Biller/Techni lisseth ID = [id number] for CR ISWELL, TIA POCT-GLUCOSE [id number] 11:12:56 Test Item Value Reference Range Interpretation Comments POC-GLUCOSE METER 197 mg/dL 70-110 H : TESTED A T [facility] 6720 (BEAKER) (test code = [facility], [facility]) [address]87: Mail Order Biller/Techni lisseth ID = [id number] for Alberto cook (contract), Lil kit POCT-GLUCOSE [id number] 11:01:52 Test Item Value Reference Range Interpretation Comments POC-GLUCOSE METER 164 mg/dL 70-110 H : TESTED A T [facility] 6720 (BEAKER) (test code = [facility], [facility]) 88716: Mail Order Biller/Techni lisseth ID = [id number] for Ke enan (contract), Hea ther POCT-GLUCOSE [id number] 10:49:57 Test Item Value Reference Range Interpretation Comments POC-GLUCOSE METER 195 mg/dL 70-110 H : TESTED A T [facility] 6720 (BEAKER) (test code = [facility], [facility]) 56148: Mail Order Biller/Techni lisseth ID = [id number] for Ke enan (contract), Hea ther POCT-GLUCOSE [id number] 10:41:31 Test Item Value Reference Range Interpretation Comments POC-GLUCOSE METER 154 mg/dL 70-110 H : TEST[facility] A T [facility] 6720 [facility] (test code = DEION Calderón [facility], 1538) [address]: Mail Order Biller/Techni lisseth ID = [id number] for Sa bal (contract), Gladis alexander POCT-GLUCOSE [id number] 10:37:56 Test Item Value Reference Range Interpretation Comments POC-GLUCOSE METER 164 mg/dL 70-110 H : TESTED A T [facility] 6720 (BEAKER) (test code [facility], = 1538) [address]: Mail Order Biller/Techni lisseth ID = [id number] for SUGU , JAQUELINEENAMOL POCT-GLUCOSE [id number] 10:03:25 Test Item Value Reference Range Interpretation Comments POC-GLUCOSE METER 113 mg/dL 70-110 H : TESTED A T [facility] 6720 ([facility]) (test code [facility], = 1538) [address]: Mail Order Biller/Techni lisseth ID = [id number] for Danl ey (contract), Don inique POCT-GLUCOSE [id number] 09:59:22 Test Item Value Reference Range Interpretation Comments POC-GLUCOSE METER 125 mg/dL 70-110 H : Notified RN/MD: TESTED ([facility]) ([facility] = 1538) [facility], 770 30: Mail Order Biller/Techni lisseth ID = [id number] for Yuni almazan (contract)Fernando POCT-GLUCOSE [id number] 09:46:18 Test Item Value Reference Range Interpretation Comments POC-GLUCOSE METER 148 mg/dL 70-110 H : TESTED A T [facility] 6720 (BEAKER) (test code [facility], = 1538) [address]: Mail Order Biller/Techni lisseth ID = [id number] for Danl ey (contract), Don inique POCT-GLUCOSE [id number] 09:38:39 Test Item Value Reference Range Interpretation Comments POC-GLUCOSE METER 180 mg/dL 70-110 H : TESTED A T [facility] 6720 ([facility] (test code [facility], = 1538) [address]: Mail Order Biller/Techni lisseth ID = [id number] for Danl ey (contract), Don inique POCT-GLUCOSE [id number] 09:32:31 Test Item Value Reference Range Interpretation Comments POC-GLUCOSE METER 219 mg/dL 70-110 H : TESTED A T [facility] 6720 (BEAKER) (test code [facility], = 1538) [address]: Mail Order Biller/Techni lisseth ID = [id number] for SUGU , SHEENAMOL POCT-GLUCOSE [id number] 09:13:11 Test Item Value Reference Range Interpretation Comments POC-GLUCOSE METER 142 mg/dL 70-110 H : TESTED A T [facility] 6720 (BEAKER) (test code [facility], = 1538) 57968: Mail Order Biller/Techni lisseth ID = [id number] for SUGU , SHEENAMOL Prepare [id number] 23:54:00 Test Item Value Reference Range Interpretation Comments CROSSMATCH (test code = 2264) COMPATIBLE Unit ABO (test code = A Neg 7550514) UNIT NUMBER (test code = [id number] 934-0) Status (test code = 6118230) TX_TIMEINCHART Blood Bank Product (test code RED BLOOD CELLS = 2263) PRODUCT CODE (test code = B1339F74 933-2) [facility] [id number] 23:54:00 Test Item Value Reference Range Interpretation Comments CROSSMATCH (test code = 2264) COMPATIBLE Unit ABO (test code = A Neg 5912023) UNIT NUMBER (test code = [id number] 934-0) Status (test code = 5711037) TX_TIMEINCBANNERT Blood Bank Product (test code RED BLOOD CELLS = 2263) PRODUCT CODE (test code = D2506H18 933-2) [facility] [id number] 23:54:00 Test Item Value Reference Range Interpretation Comments CROSSMATCH (test code = 2264) COMPATIBLE Unit ABO (test code = A Neg 0224389) UNIT NUMBER (test code = [id number] 934-0) Status (test code = 6756240) TX_TIMEINCHART Blood Bank Product (test code RED BLOOD CELLS = 2263) PRODUCT CODE (test code = O9209S37 933-2) [facility] [id number] 23:54:00 Test Item Value Reference Range Interpretation Comments CROSSMATCH (test code = 2264) COMPATIBLE Unit ABO (test code = A Neg 7124321) UNIT NUMBER (test code = [id number] 934-0) Status (test code = 2048790) TX_TIMEINCHART Blood Bank Product (test code RED BLOOD CELLS = 2263) PRODUCT CODE (test code = P4275V91 933-2) [facility] [id number] 23:54:00 Test Item Value Reference Range Interpretation Comments CROSSMATCH (test code = 2264) COMPATIBLE Unit ABO (test code = A Neg 5493001) UNIT NUMBER (test code = [id number] 934-0) Status (test code = 0937707) TX_TIMEINCHART Blood Bank Product (test code RED BLOOD CELLS = 2263) PRODUCT CODE (test code = D2676M69 933-2) [facility] CenterRAD, [facility]BDOMEN/KUB, 1 VIEW [id number] 17:31:009T-[facility] 1940 Sex: FFINALREPORT EXAM: KUB COMPARISON: December 04, 2021 CLINICAL HISTORY: Constipation FINDINGS: There is nonobstructive bowel gas pattern with mild retained feces in the colon. There is no gross evidence of pneumoperitoneum. The regional osseous structures are unremarkable. Signed: Mega Roberts MDReport Verified Date/Time: 12/09/2021 17:31:17 RAD, ABDOMEN/KUB, 1 VIEW [id number] 14:46:00 [facility] : 1940 Sex: FFINALREPORT CLINICAL HISTORY: PD Cath Placement TECHNIQUE: Supine abdomen COMPARISON: None IMPRESSION: A peritoneal dialysis catheter projects in the right lower quadrant. The bowel gaspattern is nonspecific. Free air and air- fluid levels are not definitively seen, but cannot be excluded on the supine view. Signed: Janie Crump MDReport Verified Date/Time: 12/04/2021 14:46:50 Reading Location: [address] Reading Room 2D Echo W/Doppler(CW/PW/Color) 2021-11-30 12:04:14E[facility](CW/PW/Color)2021-11-30 12:04:14Ejection [facility]SLEH [facility]Doppler(CW/PW/Color)2021-11-30 12:04:14E[facility]LE[facility]Do[facility](CW/PW/Color) 2021-11-30 12:04:14E[facility]SLE [facility]Doppler(CW/PW/Color)2021-11-30 12:04:14Ejection [facility]LE[facility] [place] [facility] [facility]21-[facility]-30 12:04:14Ejection FractionSLEH ECHO HEARTLAB [facility] Echo W/Doppler(CW/PW/Color) 2021-11-30 12:04:14Ejection FractionSLEH ECHO HEARTLAB [facility] Echo W/Doppler(CW/PW/Color)2021-11-30 12:04:14Ejection FractionSLEH ECHO HEARTLAB [facility] Echo W/Doppler(CW/PW/Color)2021-11-30 12:04:14Ejection FractionSLEH ECHO HEARTLAB [facility] Echo W/Doppler(CW/PW/Color) 2021-11-30 12:04:14Ejection FractionSLEH ECHO HEARTLAB [facility] Echo W/Doppler(CW/PW/Color)2021-11-30 12:04:14Ejection [facility]ractionSLE [facility] [id number] 21:27:48 Test Item Value Reference Range Interpretation Comments POC-GLUCOSE METER 208 mg/dL 70-110 H : TESTED A T [facility] 6720 (BEAKER) (test code = [place], 1538) [address]: Mail Order Biller/Techni lisseth ID = [id number] for Oksana Jensen BASIC METABOLIC [id number] 21:24:43 Test Item Value Reference Range Interpretation [...] not appl icable for dialysis patien ts Mail Order Biller ID - ROBERT LLACTIC ACID, [id number] 21:21:15 Test Item Value Reference Range Interpretation Comments LACTATE BLOOD VENOUS 2.94 mmol/L 0.50-2.20 H Specime n moderately (2) (BEAKER) (test hemolyzed code = 2872) Mail Order Biller ID - ROBERT LBody fluid cell count with rnnqhqeergoq0421-49-82 19:54:54 Test Item Value Reference Range Interpretation Comments Appearance (test code Slightly Hazy Clear A = 9335-1) Color (test code = Straw Colorless, Straw 6824-7) RBCs (test code = 6 See_Comment H [Automate d 40415-6) message] The system which generated this result transmitted reference range : <=1 /cu mm. The reference range was not used to interpret this result as normal/abnormal . Adjusted WBC Count 295 See_Comment H [Automat ed (test code = 42398-4) messag e] The system which generated this result transmitted reference range : <=5 /cu mm. The reference range was not used to interpret this result as normal/abnormal . Lining Cells (test 3 See_Comment H [Automat ed code = 64012-1) message] The system which generated this result transmitted reference range : <=1 /cu mm. The reference range was not used to interpret this result as normal/abnormal . % Segs (test code = 63 % 80873-2) % Lymphs (test code = 7 % 63909-2) % Monos (test code = 30 % 45264-5) % Eos (test code = 0 % 94599-0) % Baso (test code = 0 % 38161-1) Container Body Fluid Sterile (test code = 2873) Container Lab Interpretation Abnormal (test code = 45543-3) [facility] with dxomqsxwilqo8445-53-24 19:54:54 Test Item Value Reference Range Interpretation Comments Appearance (test code Slightly Hazy Clear A = 9335-1) Color (test code = Straw Colorless, Straw 6824-7) RBCs (test code = 6 See_Comment H [Automate d 97850-4) message] The system which generated this result transmitted reference range : <=1 /cu mm. The reference range was not used to interpret this result as normal/abnormal . Adjusted WBC Count 295 See_Comment H [Automat ed (test code = 79741-7) messag e] The system which generated this result transmitted reference range : <=5 /cu mm. The reference range was not used to interpret this result as normal/abnormal . Lining Cells (test 3 See_Comment H [Automat ed code = 77565-7) message] The system which generated this result transmitted reference range : <=1 /cu mm. The reference range was not used to interpret this result as normal/abnormal . % Segs (test code = 63 % 08571-0) % Lymphs (test code = 7 % 96738-5) % Monos (test code = 30 % 71637-8) % Eos (test code = 0 % 95411-6) % Baso (test code = 0 % 31467-9) Container Body Fluid Sterile (test code = 2873) Container Lab Interpretation Abnormal (test code = 21783-9) [facility] with kkvvwnfpqspe5922-70-87 19:54:54 Test Item Value Reference Range Interpretation Comments Appearance (test code Slightly Hazy Clear A = 9335-1) Color (test code = Straw Colorless, Straw 6824-7) RBCs (test code = 6 See_Comment H [Automate d 57573-6) message] The system which generated this result transmitted reference range : <=1 /cu mm. The reference range was not used to interpret this result as normal/abnormal . Adjusted WBC Count 295 See_Comment H [Automat ed (test code = 25091-2) messag e] The system which generated this result transmitted reference range : <=5 /cu mm. The reference range was not used to interpret this result as normal/abnormal . Lining Cells (test 3 See_Comment H [Automat ed code = 74906-2) message] The system which generated this result transmitted reference range : <=1 /cu mm. The reference range was not used to interpret this result as normal/abnormal . % Segs (test code = 63 % 45455-8) % Lymphs (test code = 7 % 31035-3) % Monos (test code = 30 % 90707-4) % Eos (test code = 0 % 94960-8) % Baso (test code = 0 % 90891-3) Container Body Fluid Sterile (test code = 2873) Container Lab Interpretation Abnormal (test code = 92747-1) [facility] with mbdevpkjyhxr8349-85-23 19:54:54 Test Item Value Reference Range Interpretation Comments Appearance (test code Slightly Hazy Clear A = 9335-1) Color (test code = Straw Colorless, Straw 6824-7) RBCs (test code = 6 See_Comment H [Automate d 63476-0) message] The system which generated this result transmitted reference range : <=1 /cu mm. The reference range was not used to interpret this result as normal/abnormal . Adjusted WBC Count 295 See_Comment H [Automat ed (test code = 17777-6) messag e] The system which generated this result transmitted reference range : <=5 /cu mm. The reference range was not used to interpret this result as normal/abnormal . Lining Cells (test 3 See_Comment H [Automat ed code = 52122-4) message] The system which generated this result transmitted reference range : <=1 /cu mm. The reference range was not used to interpret this result as normal/abnormal . % Segs (test code = 63 % 60272-4) % Lymphs (test code = 7 % 19558-1) % Monos (test code = 30 % 33525-9) % Eos (test code = 0 % 18635-0) % Baso (test code = 0 % 05936-9) Container Body Fluid Sterile (test code = 2873) Container Lab Interpretation Abnormal (test code = 74594-6) [facility] with zvqppgfmuexh1005-71-57 19:54:54 Test Item Value Reference Range Interpretation Comments Appearance (test code Slightly Hazy Clear A = 9335-1) Color (test code = Straw Colorless, Straw 6824-7) RBCs (test code = 6 See_Comment H [Automate d 66884-6) message] The system which generated this result transmitted reference range : <=1 /cu mm. The reference range was not used to interpret this result as normal/abnormal . Adjusted WBC Count 295 See_Comment H [Automat ed (test code = 05792-1) messag e] The system which generated this result transmitted reference range : <=5 /cu mm. The reference range was not used to interpret this result as normal/abnormal . Lining Cells (test 3 See_Comment H [Automat ed code = 64779-1) message] The system which generated this result transmitted reference range : <=1 /cu mm. The reference range was not used to interpret this result as normal/abnormal . % Segs (test code = 63 % 01106-8) % Lymphs (test code = 7 % 60004-2) % Monos (test code = 30 % 40004-0) % Eos (test code = 0 % 57094-1) % Baso (test code = 0 % 87471-0) Container Body Fluid Sterile (test code = 2873) Container Lab Interpretation Abnormal (test code = 28602-8) [facility] with veargyovrbtq4528-88-63 19:54:54 Test Item Value Reference Range Interpretation Comments Appearance (test code Slightly Hazy Clear A = 9335-1) Color (test code = Straw Colorless, Straw 6824-7) RBCs (test code = 6 See_Comment H [Automate d 62067-7) message] The system which generated this result transmitted reference range : <=1 /cu mm. The reference range was not used to interpret this result as normal/abnormal . Adjusted WBC Count 295 See_Comment H [Automat ed (test code = 09198-4) messag e] The system which generated this result transmitted reference range : <=5 /cu mm. The reference range was not used to interpret this result as normal/abnormal . Lining Cells (test 3 See_Comment H [Automat ed code = 46582-0) message] The system which generated this result transmitted reference range : <=1 /cu mm. The reference range was not used to interpret this result as normal/abnormal . % Segs (test code = 63 % 63724-6) % Lymphs (test code = 7 % 65998-2) % Monos (test code = 30 % 45173-7) % Eos (test code = 0 % 78558-9) % Baso (test code = 0 % 22257-1) Container Body Fluid Sterile (test code = 2873) Container Lab Interpretation Abnormal (test code = 62459-7) [facility] with lgwqmdyyhwcw8835-98-35 19:54:54 Test Item Value Reference Range Interpretation Comments Appearance (test code Slightly Hazy Clear A = 9335-1) Color (test code = Straw Colorless, Straw 6824-7) RBCs (test code = 6 See_Comment H [Automate d 23825-5) message] The system which generated this result transmitted reference range : <=1 /cu mm. The reference range was not used to interpret this result as normal/abnormal . Adjusted WBC Count 295 See_Comment H [Automat ed (test code = 72728-4) Vastariag e] The system which generated this result transmitted reference range : <=5 /cu mm. The reference range was not used to interpret this result as normal/abnormal . Lining Cells (test 3 See_Comment H [Automat ed code = 60731-0) message] The system which generated this result transmitted reference range : <=1 /cu mm. The reference range was not used to interpret this result as normal/abnormal . % Segs (test code = 63 % 81971-3) % Lymphs (test code = 7 % 52132-7) % Monos (test code = 30 % 18774-3) % Eos (test code = 0 % 96957-5) % Baso (test code = 0 % 10562-4) Container Body Fluid Sterile (test code = 2873) Container Lab Interpretation Abnormal (test code = 30818-9) [facility] WITH EKAMPWJRBROS8428-00-28 19:54:54 Test Item Value Reference Range Interpretation [...] FLUID (BEAKER) (test code = 2873) POCT-GLUCOSE [id number] 16:23:27 Test Item Value Reference Range Interpretation Comments POC-GLUCOSE METER 205 mg/dL 70-110 H : TESTED A T [facility] 6720 (BEAKER) (test code [facility], = 1538) [address]: Mail Order Biller/Techni lisseth ID = [id number] for Yuni almazan (contract)Fernando BASIC METABOLIC [id number] 14:52:07 Test Item Value Reference Range Interpretation [...] not appl icable for dialysis patien ts Mail Order Biller ID Cesar JONES [id number] 14:48:18 Test Item Value Reference Range Interpretation Comments MAGNESIUM (BEAKER) (test code = 2.6 mg/dL 1.6-2.6 627) Mail Order Biller ID Cesar JONES LLACTIC ACID, [id number] 14:37:53 Test Item Value Reference Range Interpretation Comments LACTATE BLOOD VENOUS 3.19 mmol/L 0.50-2.20 H Specime n moderately (2) (BEAKER) (test hemolyzed code = 5152) Mail Order Biller ID Cesar SHELBY DCALCIUM, [id number] 12:51:45 Test Item Value Reference Range Interpretation Comments CALCIUM IONIZED (BEAKER) (test 1.11 mmol/L 1.12-1.27 L code = 698) PH, BLOOD (BEAKER) (test code = 7.36 1810) T4, [id number] 09:41:16 Test Item Value Reference Range Interpretation Comments FREE T4 (BEAKER) (test code = 655) 0.85 ng/dL 0.70-1.48 Mail Order Biller ID Cesar JONES LCOMPREHENSIVE METABOLIC [id number] 06:38:33 Test Item Value Reference Range Interpretation [...] not appl icable for dialysis patien ts Mail Order Biller ID Cesar JONES [id number] 05:59:27 Test Item Value Reference Range Interpretation Comments MAGNESIUM (BEAKER) (test code = 1.6 mg/dL 1.6-2.6 627) Mail Order Biller ID - ROBERT [id number] 05:59:27 Test Item Value Reference Range Interpretation Comments PHOSPHORUS (BEAKER) (test code = 7.6 mg/dL 2.3-4.7 H 604) Mail Order Biller ID - ROBERT LTSH/FREE T4 IF [id number] 05:54:49 Test Item Value Reference Range Interpretation Comments THYROID STIMULATING HORMONE 5.804 uIU/mL 0.350-4.940 H (BEAKER) (test code = 772) Mail Order Biller ID - ROBERT LCALCIUM, [id number] 05:42:26 Test Item Value Reference Range Interpretation Comments CALCIUM IONIZED (BEAKER) (test 0.99 mmol/L 1.12-1.27 L code = 698) PH, BLOOD (BEAKER) (test code = 7.38 1810) B-TYPE NATRIURETIC FACTOR (BNP)2021-11-29 05:35:37 Test Item Value Reference Range Interpretation Comments B-TYPE NATRIURETIC PEPTIDE (BEAKER) 198 pg/mL 0-100 H (test code = 700) Mail Order Biller ID - ROBERT STINSONETONE, [id number] 05:30:26 Test Item Value Reference Range Interpretation Comments KETONES, BLOOD (BEAKER) (test code 0.3 mmol/L <0.4 = 1103) CBC W/PLT COUNT & AUTO [id number] 04:56:25 Test Item Value Reference Range Interpretation [...] = 2801) RAD, CHEST, 1 VIEW, NON [id number] 04:24:00Reason for exam:->possible infectionShould this be performed at the bedside?->Yes [facility] : 1940 Sex: FFINALREPORT History: possible infection. [...] discussed with Stas Lyles, the ICU physician's admissions assistant in care of the patient, at 0420 hours on 11/29/2021 Signed: Mara Mata Verified Date/Time: 11/29/2021 04:24:39 POC glucose 2021-04-16 17:47:43 Test Item Value Reference Range Interpretation Comments POC glucose (test code = 195 mg/dL 65-99 H Ope rator Name: 33959-3) Jaysonjaniya Linda ID: [id number] able : HMW Notified excel expert Interpretation (test Abnormal code = 72217-4) [facility] prfiewl8291-15-14 17:47:43 Test Item Value Reference Range Interpretation Comments POC glucose (test code = 195 mg/dL 65-99 H Ope rator Name: 95575-6) Carlota Linda ID: [id number] able : HMW Notified excel expert Interpretation (test Abnormal code = 26583-6) [facility] [id number] 17:47:43 Test Item Value Reference Range Interpretation Comments POC glucose (test code = 195 mg/dL 65-99 H Ope rator Name: 75852-5) Carlota Kanvice ID: [id number] able : HMW Notified excel expert Interpretation (test Abnormal code = 18485-6) [facility]2022-02-17 17:47:43 Test Item Value Reference Range Interpretation Comments POC glucose (test code = 195 mg/dL 65-99 H Ope rator Name: 73638-6) Carlota Ayala IDevice ID: [id number] able : HMW Notified excel expert Interpretation (test Abnormal code = 95539-2) [facility]2022-02-17 17:47:43 Test Item Value Reference Range Interpretation Comments POC glucose (test code = 195 mg/dL 65-99 H Ope rator Name: 27464-6) Carlota Kanvice ID: [id number] able : HMW Notified excel expert Interpretation (test Abnormal code = 21299-6) [facility]2022-02-17 17:47:43 Test Item Value Reference Range Interpretation Comments POC glucose (test code = 195 mg/dL 65-99 H Ope rator Name: 17669-1) Uwbela Ayala IDevice ID: [id number] able : HMW Notified excel expert Interpretation (test Abnormal code = 40724-9) [facility]2022-02-17 17:47:43 Test Item Value Reference Range Interpretation Comments POC glucose (test code = 195 mg/dL 65-99 H Ope rator Name: 97685-7) Carlota Kanvice ID: [id number] able : HMW Notified excel expert Interpretation (test Abnormal code = 10307-1) [facility]2022-02-17 17:47:43 Test Item Value Reference Range Interpretation Comments POC glucose (test code = 195 mg/dL 65-99 H Ope rator Name: 59699-6) Carlota Kanvice ID: [id number] able : HMW Notified excel expert Interpretation (test Abnormal code = 86792-9) [facility]2022-02-17 17:47:43 Test Item Value Reference Range Interpretation Comments POC glucose (test code = 195 mg/dL 65-99 H Ope rator Name: 47636-6) [facility] Lucy Kanvice ID: [id number] able : HMW Notified excel expert Interpretation (test Abnormal code = 30692-8) [facility] ghttstl9542-69-60 17:47:43 Test Item Value Reference Range Interpretation Comments POC glucose (test code = 195 mg/dL 65-99 H Ope rator Name: 97773-7) [facility] Debragracie Kanvice ID: [id number] able : HMW Notified excel expert Interpretation (test Abnormal code = 55705-8) [facility] pdwmzeg0030-12-97 17:47:43 Test Item Value Reference Range Interpretation Comments POC glucose (test code = 195 mg/dL 65-99 H Ope rator Name: 91331-2) [facility] Debragracie Olivarese ID: [id number] able : HMW Notified excel expert Interpretation (test Abnormal code = 24746-0) [facility] [Presence] in Respiratory specimen by CHANTEL with probe qucefryxr1916-35-29 00:53:01 Test Item Value Reference Range Interpretation Comments SARS-CoV-2 (COVID-19) RNA [Presence] Detected Not-Detected in Respiratory specimen by CHANTEL with probe detection (test code = 75619-2) 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 (test code = 31756-3) Whether the patient has symptoms related to condition of interest (test code = 63104-7) Patient was hospitalized because of this condition (test code = 59076-0) Whether the patient was admitted to intensive care unit (ICU) for condition of interest (test code = 01123-5) Whether patient resides in a congregate care setting (test code = 43782-6) [facility] maveed2445-83-28 20:47:00 Test Item Value Reference Range Interpretation Comments ABO grouping (test code = 883-9) A Rh type (test code = 38138-8) NEG Antibody screen (gel) (test code = NEG 890-4) [facility] azijke7007-29-59 20:47:00 Test Item Value Reference Range Interpretation Comments ABO grouping (test code = 883-9) A Rh type (test code = 91614-4) NEG Antibody screen (gel) (test code = NEG 890-4) [facility] and xwrdme0680-13-51 20:47:00 Test Item Value Reference Range Interpretation Comments ABO grouping (test code = 883-9) A Rh type (test code = 46258-7) NEG Antibody screen (gel) (test code = NEG 890-4) [facility] and qjxdgc4394-71-66 20:47:00 Test Item Value Reference Range Interpretation Comments ABO grouping (test code = 883-9) A Rh type (test code = 89857-8) NEG Antibody screen (gel) (test code = NEG 890-4) [facility] and obqteq4746-23-52 20:47:00 Test Item Value Reference Range Interpretation Comments ABO grouping (test code = 883-9) A Rh type (test code = 99898-3) NEG Antibody screen (gel) (test code = NEG 890-4) [facility] and xhhibf3378-93-80 20:47:00 Test Item Value Reference Range Interpretation Comments ABO grouping (test code = 883-9) A Rh type (test code = 27005-7) NEG Antibody screen (gel) (test code = NEG 890-4) [facility] and dlvonc3734-73-91 20:47:00 Test Item Value Reference Range Interpretation Comments ABO grouping (test code = 883-9) A Rh type (test code = 28159-1) NEG Antibody screen (gel) (test code = NEG 890-4) [facility] and rxwnge5268-10-38 20:47:00 Test Item Value Reference Range Interpretation Comments ABO grouping (test code = 883-9) A Rh type (test code = 11142-7) NEG Antibody screen (gel) (test code = NEG 890-4) [facility] and nqnupc0470-02-96 20:47:00 Test Item Value Reference Range Interpretation Comments ABO grouping (test code = 883-9) A Rh type (test code = 55716-7) NEG Antibody screen (gel) (test code = NEG 890-4) [facility] and [id number] 20:47:00 Test Item Value Reference Range Interpretation Comments ABO grouping (test code = 883-9) A Rh type (test code = 89775-1) NEG Antibody screen (gel) (test code = NEG 890-4) [facility] and dbqogz8735-28-60 20:47:00 Test Item Value Reference Range Interpretation Comments ABO grouping (test code = 883-9) A Rh type (test code = 33522-1) NEG Antibody screen (gel) (test code = NEG 890-4) [place] [address] itwj9277-65-05 20:31:34 Test Item Value Reference Range Interpretation [...] available-Electronicall y Signed By Catrachita Crump MD ([id number]) on 04/07/2021 2:31:[address]2022-02-08 20:31:34 Test Item Value Reference Range [...] available-Electronicall y Signed By Catrachita Crump MD ([id number]) on 04/07/2021 2:31:33 PM [place] [address] purq0036-48-02 20:31:34 Test Item Value Reference Range Interpretation [...] y Signed By Catrachita Crump MD Min ([id number]) on 04/07/2021 2:31:33 PM [facility] 12 layi1359-56-88 20:31:34 Test Item Value Reference Range Interpretation [...] y Signed By Catrachita Crump MD Min ([id number]) on 04/07/2021 2:31:33 PM [place] [address] ubcu0654-15-11 20:31:34 Test Item Value Reference Range Interpretation [...] y Signed By Catrachita Crump MD Min ([id number]) on 04/07/2021 2:31:33 PM [facility] 12 [id number] 20:31:34 Test Item Value Reference Range Interpretation [...] available-Electronicall y Signed By Catrachita Crump MD ([id number]) on 04/07/2021 2:31:33 PM [facility] 12 kkoy0217-21-36 20:31:34 Test Item Value Reference Range Interpretation [...] available-Electronicall y Signed By Catrachita Crump MD ([id number]) on 04/07/2021 2:31:33 PM [facility] 12 [id number] 20:31:34 Test Item Value Reference Range Interpretation [...] available-Electronicall y Signed By Catrachita Crump MD ([id number]) on 04/07/2021 2:31:33 PM [facility] 12 yobn2138-17-13 20:31:34 Test Item Value Reference Range Interpretation [...] available-Electronicall y Signed By Catrachita Crump MD ([id number]) on 04/07/2021 2:31:33 PM [place] [address] muml9236-05-02 20:31:34 Test Item Value Reference Range Interpretation [...] available-Electronicall y Signed By Catrachita Crump MD ([id number]) on 04/07/2021 2:31:33 PM [place] [address] dvll0047-85-94 20:31:34 Test Item Value Reference Range Interpretation [...] available-Electronicall y Signed By Catrachita Crump MD ([id number]) on 04/07/2021 2:31:33 [facility] bzvavf6189-01-26 23:17:00 Test Item Value Reference Range Interpretation Comments Product name (test code Plasma frz w/in 24hrs = 25) thaw Unit number (test code = [id number]) Product code (test code X0218J90 = 3092) Dispense status (test Returned to BB not code = 24) transfused Blood expiration date (test code = 302) Blood type code (test code = 308) Blood type (test code = A POSITIVE 1314) Compatibility (test code Not required = 6400) [facility] fresh frozen jpaoba0432-86-91 23:17:00 Test Item Value Reference Range Interpretation Comments Product name (test code Plasma frz w/in 24hrs = 25) thaw Unit number (test code = [id number]) Product code (test code L6024A77 = 3092) Dispense status (test Returned to BB not code = 24) transfused Blood expiration date (test code = 302) Blood type code (test code = 308) Blood type (test code = A POSITIVE 1314) Compatibility (test code Not required = 6400) [facility] fresh frozen [id number] 23:17:00 Test Item Value Reference Range Interpretation Comments Product name (test code Plasma frz w/in 24hrs = 25) thaw Unit number (test code = [id number]) Product code (test code J0889W61 = 3092) Dispense status (test Returned to BB not code = 24) transfused Blood expiration date (test code = 302) Blood type code (test code = 308) Blood type (test code = A POSITIVE 1314) Compatibility (test code Not required = 6400) [facility] fresh frozen [id number] 23:17:00 Test Item Value Reference Range Interpretation Comments Product name (test code Plasma frz w/in 24hrs = 25) thaw Unit number (test code = [id number]) Product code (test code V6038E62 = 3092) Dispense status (test Returned to BB not code = 24) transfused Blood expiration date (test code = 302) Blood type code (test code = 308) Blood type (test code = A POSITIVE 1314) Compatibility (test code Not required = 6400) [facility] fresh frozen [id number] 23:17:00 Test Item Value Reference Range Interpretation Comments Product name (test code Plasma frz w/in 24hrs = 25) thaw Unit number (test code = [id number]) Product code (test code Y0331I09 = 3092) Dispense status (test Returned to BB not code = 24) transfused Blood expiration date (test code = 302) Blood type code (test code = 308) Blood type (test code = A POSITIVE 1314) Compatibility (test code Not required = 6400) [facility] fresh frozen [id number] 23:17:00 Test Item Value Reference Range Interpretation Comments Product name (test code Plasma frz w/in 24hrs = 25) thaw Unit number (test code = [id number]) Product code (test code X7252P57 = 3092) Dispense status (test Returned to BB not code = 24) transfused Blood expiration date (test code = 302) Blood type code (test code = 308) Blood type (test code = A POSITIVE 1314) Compatibility (test code Not required = 6400) [facility] fresh frozen [id number] 23:17:00 Test Item Value Reference Range Interpretation Comments Product name (test code Plasma frz w/in 24hrs = 25) thaw Unit number (test code = [id number] 0409007) Product code (test code Y5815J36 = 3092) Dispense status (test Returned to BB not code = 24) transfused Blood expiration date (test code = 302) Blood type code (test code = 308) Blood type (test code = A POSITIVE 1314) Compatibility (test code Not required = 6400) [facility] fresh frozen [id number] 23:17:00 Test Item Value Reference Range Interpretation Comments Product name (test code Plasma frz w/in 24hrs = 25) thaw Unit number (test code = [id number] 4692861) Product code (test code K0254J62 = 3092) Dispense status (test Returned to BB not code = 24) transfused Blood expiration date (test code = 302) Blood type code (test code = 308) Blood type (test code = A POSITIVE 1314) Compatibility (test code Not required = 6400) [facility] fresh frozen [id number] 23:17:00 Test Item Value Reference Range Interpretation Comments Product name (test code Plasma frz w/in 24hrs = 25) thaw Unit number (test code = [id number] 8519426) Product code (test code K2331U25 = 3092) Dispense status (test Returned to BB not code = 24) transfused Blood expiration date (test code = 302) Blood type code (test code = 308) Blood type (test code = A POSITIVE 1314) Compatibility (test code Not required = 6400) [facility] fresh frozen [id number] 23:17:00 Test Item Value Reference Range Interpretation Comments Product name (test code Plasma frz w/in 24hrs = 25) thaw Unit number (test code = [id number] 7524802) Product code (test code V9168Y09 = 3092) Dispense status (test Returned to BB not code = 24) transfused Blood expiration date (test code = 302) Blood type code (test code = 308) Blood type (test code = A POSITIVE 1314) Compatibility (test code Not required = 6400) [facility] fresh frozen [id number] 23:17:00 Test Item Value Reference Range Interpretation Comments Product name (test code Plasma frz w/in 24hrs = 25) thaw Unit number (test code = [id number] 2799559) Product code (test code G2167B70 = 3092) Dispense status (test Returned to BB not code = 24) transfused Blood expiration date (test code = 302) Blood type code (test code = 308) Blood type (test code = A POSITIVE 1314) Compatibility (test code Not required = 6400) [facility] [id number] 22:03:23 Test Item Value Reference Range Interpretation Comments Activated clotting time See_Comment Oper ator Name: Mack (test code = 5298) Eric Beltran rDevice ID: [id number] [Autom ated message] The sy stem which generated this result transmitted ref erence range: 96 - 152 sec. The reference range was not used to interpr et this result as normal/abnormal . [facility] [id number] 22:03:23 Test Item Value Reference Range Interpretation Comments Activated clotting time See_Comment Oper ator Name: Mack (test code = 5298) Eric Beltran rDevice ID: [id number] [Autom ated message] The sy stem which generated this result transmitted ref erence range: 96 - 152 sec. The reference range was not used to interpr et this result as normal/abnormal . [facility] [id number] 22:03:23 Test Item Value Reference Range Interpretation Comments Activated clotting time See_Comment Oper ator Name: Mack (test code = 5298) Eric Beltran rDevice ID: [id number] [Autom ated message] The sy stem which generated this result transmitted ref erence range: 96 - 152 sec. The reference range was not used to interpr et this result as normal/abnormal . [facility] [id number] 22:03:23 Test Item Value Reference Range Interpretation Comments Activated clotting time See_Comment Oper ator Name: Mack (test code = 5298) Eric Ruby rDevice ID: [id number] [Autom ated message] The sy stem which generated this result transmitted ref erence range: 96 - 152 sec. The reference range was not used to interpr et this result as normal/abnormal . [facility] [id number] 22:03:23 Test Item Value Reference Range Interpretation Comments Activated clotting time See_Comment Oper ator Name: Mack (test code = 5298) Eric Beltran rDevice ID: [id number] [Autom ated message] The sy stem which generated this result transmitted ref erence range: 96 - 152 sec. The reference range was not used to interpr et this result as normal/abnormal . [facility] [id number] 22:03:23 Test Item Value Reference Range Interpretation Comments Activated clotting time See_Comment Oper ator Name: Mack (test code = 5298) Eric Ruby rDevice ID: [id number] [Autom ated message] The sy stem which generated this result transmitted ref erence range: 96 - 152 sec. The reference range was not used to interpr et this result as normal/abnormal . [facility] [id number] 22:03:23 Test Item Value Reference Range Interpretation Comments Activated clotting time See_Comment Oper ator Name: Mack (test code = 5298) Eric Beltran rDevice ID: [id number] [Autom ated message] The sy stem which generated this result transmitted ref erence range: 96 - 152 sec. The reference range was not used to interpr et this result as normal/abnormal . [facility] clotting [id number] 22:03:23 Test Item Value Reference Range Interpretation Comments Activated clotting time See_Comment Oper ator Name: Mack (test code = 5298) Eric Beltran rDevice ID: [id number] [Autom ated message] The sy stem which generated this result transmitted ref erence range: 96 - 152 sec. The reference range was not used to interpr et this result as normal/abnormal . [facility] clotting [id number] 22:03:23 Test Item Value Reference Range Interpretation Comments Activated clotting time See_Comment Oper ator Name: Mack (test code = 5298) Eric Beltran rDevice ID: [id number] [Autom ated message] The sy stem which generated this result transmitted ref erence range: 96 - 152 sec. The reference range was not used to interpr et this result as normal/abnormal . [facility] clotting [id number] 22:03:23 Test Item Value Reference Range Interpretation Comments Activated clotting time See_Comment Oper ator Name: Mack (test code = 5298) Eric Beltran rDevice ID: [id number] [Autom ated message] The sy stem which generated this result transmitted ref erence range: 96 - 152 sec. The reference range was not used to interpr et this result as normal/abnormal . [facility] clotting [id number] 22:03:23 Test Item Value Reference Range Interpretation Comments Activated clotting time See_Comment Oper ator Name: Mack (test code = 5298) Eric Beltran rDevice ID: [id number] [Autom ated message] The sy stem which generated this result transmitted ref erence range: 96 - 152 sec. The reference range was not used to interpr et this result as normal/abnormal . [facility] blood gas, arterial and [id number] 22:02:14 Test Item Value Reference Range Interpretation [...] = 2025-3) O2 saturation, 100 % 95-100 Mail Order Biller Name : Shine arterial, POC (test Quin vice ID: code = 2708-6) [id number] POC sodium (test code 141 mmol/L 135-148 = 2947-0) POC potassium (test 4.8 mmol/L 3.5-5.0 code = 6298-4) POC hematocrit (test 24 % 37-47 L code = 4544-3) POC glucose (test code 164 mg/dL 65-99 H = 2339-0) Ionized calcium, 1.05 mmol/L 1.11-1.32 L arterial, POC (test code = 92592-3) POC hemoglobin (test 8.2 g/dL 12.0-16.0 L code = 718-7) Lab Interpretation Abnormal (test code = 90375-3) [facility] blood gas, arterial and glnkb9556-80-50 22:02:14 Test Item Value Reference Range Interpretation [...] = 2025-3) O2 saturation, 100 % 95-100 Mail Order Biller Name : Shine arterial, POC (test Quin vice ID: code = 2708-6) [id number] POC sodium (test code 141 mmol/L 135-148 = 2947-0) POC potassium (test 4.8 mmol/L 3.5-5.0 code = 6298-4) POC hematocrit (test 24 % 37-47 L code = 4544-3) POC glucose (test code 164 mg/dL 65-99 H = 2339-0) Ionized calcium, 1.05 mmol/L 1.11-1.32 L arterial, POC (test code = 03781-1) POC hemoglobin (test 8.2 g/dL 12.0-16.0 L code = 718-7) Lab Interpretation Abnormal (test code = 83195-5) [facility] blood gas, arterial and twjcd2132-64-31 22:02:14 Test Item Value Reference Range Interpretation [...] = 2025-04) O2 saturation, 100 % 95-100 Mail Order Biller Name : Shine arterial, POC (test Quin vice ID: code = 2708-6) [id number] POC sodium (test code 141 mmol/L 135-148 = 2947-0) POC potassium (test 4.8 mmol/L 3.5-5.0 code = 6298-4) POC hematocrit (test 24 % 37-47 L code = 4544-3) POC glucose (test code 164 mg/dL 65-99 H = 2339-0) Ionized calcium, 1.05 mmol/L 1.11-1.32 L arterial, POC (test code = 76260-3) POC hemoglobin (test 8.2 g/dL 12.0-16.0 L code = 718-7) Lab Interpretation Abnormal (test code = 23931-7) [facility] blood gas, arterial and jzhyh1295-42-57 22:02:14 Test Item Value Reference Range Interpretation [...] code = 1960-4) CO2 calculated, 24 mmol/L - arterial, POC (test code = 2025-04) O2 saturation, 100 % 95-100 Mail Order Biller Name : Shine arterial, POC (test Quin vice ID: code = 2708-6) [id number] POC sodium (test code 141 mmol/L 135-148 = 2947-0) POC potassium (test 4.8 mmol/L 3.5-5.0 code = 6298-4) POC hematocrit (test 24 % 37-47 L code = 4544-3) POC glucose (test code 164 mg/dL 65-99 H = 2339-0) Ionized calcium, 1.05 mmol/L 1.11-1.32 L arterial, POC (test code = 98713-5) POC hemoglobin (test 8.2 g/dL 12.0-16.0 L code = 718-7) Lab Interpretation Abnormal (test code = 47414-2) [facility] blood gas, arterial and qykue4254-86-58 22:02:14 Test Item Value Reference Range Interpretation [...] = 2025-3) O2 saturation, 100 % 95-100 Mail Order Biller Name : Shine arterial, POC (test Quin vice ID: code = 2708-6) [id number] POC sodium (test code 141 mmol/L 135-148 = 2947-0) POC potassium (test 4.8 mmol/L 3.5-5.0 code = 6298-4) POC hematocrit (test 24 % 37-47 L code = 4544-3) POC glucose (test code 164 mg/dL 65-99 H = 2339-0) Ionized calcium, 1.05 mmol/L 1.11-1.32 L arterial, POC (test code = 03766-0) POC hemoglobin (test 8.2 g/dL 12.0-16.0 L code = 718-7) Lab Interpretation Abnormal (test code = 62376-3) [facility] blood gas, arterial and vqpsg4865-14-35 22:02:14 Test Item Value Reference Range Interpretation [...] = 2025-3) O2 saturation, 100 % 95-100 Mail Order Biller Name : Shine arterial, POC (test Quin vice ID: code = 2708-6) [id number] POC sodium (test code 141 mmol/L 135-148 = 2947-0) POC potassium (test 4.8 mmol/L 3.5-5.0 code = 6298-4) POC hematocrit (test 24 % 37-47 L code = 4544-3) POC glucose (test code 164 mg/dL 65-99 H = 2339-0) Ionized calcium, 1.05 mmol/L 1.11-1.32 L arterial, POC (test code = 52790-7) POC hemoglobin (test 8.2 g/dL 12.0-16.0 L code = 718-7) Lab Interpretation Abnormal (test code = 09808-4) [facility] blood gas, arterial and orpgl9960-21-80 22:02:14 Test Item Value Reference Range Interpretation [...] = 2025-3) O2 saturation, 100 % 95-100 Mail Order Biller Name : Shine arterial, POC (test Quin vice ID: code = 2708-6) [id number] POC sodium (test code 141 mmol/L 135-148 = 2947-0) POC potassium (test 4.8 mmol/L 3.5-5.0 code = 6298-4) POC hematocrit (test 24 % 37-47 L code = 4544-3) POC glucose (test code 164 mg/dL 65-99 H = 2339-0) Ionized calcium, 1.05 mmol/L 1.11-1.32 L arterial, POC (test code = 50493-5) POC hemoglobin (test 8.2 g/dL 12.0-16.0 L code = 718-7) Lab Interpretation Abnormal (test code = 29153-7) [facility] blood gas, arterial and bupja0095-88-96 22:02:14 Test Item Value Reference Range Interpretation [...] = 2025-3) O2 saturation, 100 % 95-100 Mail Order Biller Name : Shine arterial, POC (test Quin vice ID: code = 2708-6) [id number] POC sodium (test code 141 mmol/L 135-148 = 2947-0) POC potassium (test 4.8 mmol/L 3.5-5.0 code = 6298-4) POC hematocrit (test 24 % 37-47 L code = 4544-3) POC glucose (test code 164 mg/dL 65-99 H = 2339-0) Ionized calcium, 1.05 mmol/L 1.11-1.32 L arterial, POC (test code = 23367-9) POC hemoglobin (test 8.2 g/dL 12.0-16.0 L code = 718-7) Lab Interpretation Abnormal (test code = 37346-2) [facility] blood gas, arterial and qvaya3651-60-47 22:02:14 Test Item Value Reference Range Interpretation [...] code = 1924-7) Bicarbonate, arterial, 22.7 mmol/L 21-28 POC (test code = 1959-) CO2 calculated, 24 mmol/L 24-31 arterial, POC (test code = 2025-) O2 saturation, 100 % 95-100 Mail Order Biller Name : Shine arterial, POC (test Quin vice ID: code = 2708-6) [id number] POC sodium (test code 141 mmol/L 135-148 = 2947-0) POC potassium (test 4.8 mmol/L 3.5-5 code = 6298-4) POC hematocrit (test 24 % 37-47 L code = 4544-3) POC glucose (test code 164 mg/dL 65-99 H = 2339-0) Ionized calcium, 1.05 mmol/L 1.11-1.32 L arterial, POC (test code = 09400-6) POC hemoglobin (test 8.2 g/dL 12-16 L code = 718-7) Lab Interpretation Abnormal (test code = 59246-6) [facility] blood gas, arterial and rncws0118-68-09 22:02:14 Test Item Value Reference Range Interpretation [...] = 2025-04) O2 saturation, 100 % 95-100 Mail Order Biller Name : Shine arterial, POC (test Quin vice ID: code = 2708-6) [id number] POC sodium (test code 141 mmol/L 135-148 = 2947-0) POC potassium (test 4.8 mmol/L 3.5-5.0 code = 6298-4) POC hematocrit (test 24 % 37-47 L code = 4544-3) POC glucose (test code 164 mg/dL 65-99 H = 2339-0) Ionized calcium, 1.05 mmol/L 1.11-1.32 L arterial, POC (test code = 34028-4) POC hemoglobin (test 8.2 g/dL 12.0-16.0 L code = 718-7) Lab Interpretation Abnormal (test code = 30523-4) [facility] blood gas, arterial and jalut2295-64-48 22:02:14 Test Item Value Reference Range Interpretation [...] = 2025-) O2 saturation, 100 % 95-100 Mail Order Biller Name : Shine arterial, POC (test Quin vice ID: code = 2708-6) [id number] POC sodium (test code 141 mmol/L 135-148 = 2947-0) POC potassium (test 4.8 mmol/L 3.5-5.0 code = 6298-4) POC hematocrit (test 24 % 37-47 L code = 4544-3) POC glucose (test code 164 mg/dL 65-99 H = 2339-0) Ionized calcium, 1.05 mmol/L 1.11-1.32 L arterial, POC (test code = 30514-7) POC hemoglobin (test 8.2 g/dL 12.0-16.0 L code = 718-7) Lab Interpretation Abnormal (test code = 96247-9) [facility] [id number] 21:16:00 Test Item Value Reference Range Interpretation Comments Product name (test code Platelets Aph LR, = 25) Path Red cont2 Unit number (test code = [id number] 9059015) Product code (test code W3519U81 = 3092) Dispense status (test Transfused code = 24) Blood expiration date (test code = 302) Blood type code (test code = 308) Blood type (test code = A POSITIVE 1314) Compatibility (test code Not required = 6400) [facility] eejlaymj7565-03-88 21:16:00 Test Item Value Reference Range Interpretation Comments Product name (test code Platelets Aph LR, = 25) Path Red cont2 Unit number (test code = [id number] 7908429) Product code (test code D2893N42 = 3092) Dispense status (test Transfused code = 24) Blood expiration date (test code = 302) Blood type code (test code = 308) Blood type (test code = A POSITIVE 1314) Compatibility (test code Not required = 6400) [facility] nabtvwmb7010-71-19 21:16:00 Test Item Value Reference Range Interpretation Comments Product name (test code Platelets Aph LR, = 25) Path Red cont2 Unit number (test code = [id number] 0965686) Product code (test code I2687L50 = 3092) Dispense status (test Transfused code = 24) Blood expiration date (test code = 302) Blood type code (test code = 308) Blood type (test code = A POSITIVE 1314) Compatibility (test code Not required = 6400) [facility] [id number] 21:16:00 Test Item Value Reference Range Interpretation Comments Product name (test code Platelets Aph LR, = 25) Path Red cont2 Unit number (test code = [id number] 1057706) Product code (test code D4032F52 = 3092) Dispense status (test Transfused code = 24) Blood expiration date (test code = 302) Blood type code (test code = 308) Blood type (test code = A POSITIVE 1314) Compatibility (test code Not required = 6400) [facility] [id number] 21:16:00 Test Item Value Reference Range Interpretation Comments Product name (test code Platelets Aph LR, = 25) Path Red cont2 Unit number (test code = [id number] 1934388) Product code (test code F4891E67 = 3092) Dispense status (test Transfused code = 24) Blood expiration date (test code = 302) Blood type code (test code = 308) Blood type (test code = A POSITIVE 1314) Compatibility (test code Not required = 6400) [facility] smwriwmr4406-05-91 21:16:00 Test Item Value Reference Range Interpretation Comments Product name (test code Platelets Aph LR, = 25) Path Red cont2 Unit number (test code = [id number] 2242269) Product code (test code K5708D13 = 3092) Dispense status (test Transfused code = 24) Blood expiration date (test code = 302) Blood type code (test code = 308) Blood type (test code = A POSITIVE 1314) Compatibility (test code Not required = 6400) [facility] mqkkwwrm5363-26-86 21:16:00 Test Item Value Reference Range Interpretation Comments Product name (test code Platelets Aph LR, = 25) Path Red cont2 Unit number (test code = [id number]) Product code (test code Z1854O91 = 3092) Dispense status (test Transfused code = 24) Blood expiration date (test code = 302) Blood type code (test code = 308) Blood type (test code = A POSITIVE 1314) Compatibility (test code Not required = 6400) [facility] wevtfeyy1737-46-48 21:16:00 Test Item Value Reference Range Interpretation Comments Product name (test code Platelets Aph LR, = 25) Path Red cont2 Unit number (test code = [id number] 1508994) Product code (test code I1840O26 = 3092) Dispense status (test Transfused code = 24) Blood expiration date (test code = 302) Blood type code (test code = 308) Blood type (test code = A POSITIVE 1314) Compatibility (test code Not required = 6400) [facility] [id number] 21:16:00 Test Item Value Reference Range Interpretation Comments Product name (test code Platelets Aph LR, = 25) Path Red cont2 Unit number (test code = [id number] 0709003) Product code (test code L0444N73 = 3092) Dispense status (test Transfused code = 24) Blood expiration date (test code = 302) Blood type code (test code = 308) Blood type (test code = A POSITIVE 1314) Compatibility (test code Not required = 6400) [facility] kgslfxqx7519-65-02 21:16:00 Test Item Value Reference Range Interpretation Comments Product name (test code Platelets Aph LR, = 25) Path Red cont2 Unit number (test code = [id number] 2626763) Product code (test code C1643W33 = 3092) Dispense status (test Transfused code = 24) Blood expiration date (test code = 302) Blood type code (test code = 308) Blood type (test code = A POSITIVE 1314) Compatibility (test code Not required = 6400) [facility] ulmrccju4530-09-62 21:16:00 Test Item Value Reference Range Interpretation Comments Product name (test code Platelets Aph LR, = 25) Path Red cont2 Unit number (test code = [id number] 5760086) Product code (test code F8817X49 = 3092) Dispense status (test Transfused code = 24) Blood expiration date (test code = 302) Blood type code (test code = 308) Blood type (test code = A POSITIVE 1314) Compatibility (test code Not required = 6400) [facility] [id number] 19:18:30 Test Item Value Reference Range Interpretation Comments Hemoglobin, syringe (test 6.7 g/dL 12.0-16.0 LL HG BS results called code = 718-7) to and read ba ck by Carley BURCH at _ 04/06/2021 13 :18 __by RLS_. Lab Interpretation (test Abnormal code = 16242-4) [facility], xjicpbr0564-32-06 19:18:30 Test Item Value Reference Range Interpretation Comments Hemoglobin, syringe (test 6.7 g/dL 12.0-16.0 LL HG BS results called code = 718-7) to and read ba ck by Carley BURCH at _ 04/06/2021 13 :18 __by RLS_. Lab Interpretation (test Abnormal code = 50468-3) [facility], [id number] 19:18:30 Test Item Value Reference Range Interpretation Comments Hemoglobin, syringe (test 6.7 g/dL 12.0-16.0 LL HG BS results called code = 718-7) to and read ba ck by Carley BURCH at _ 04/06/2021 13 :18 __by RLS_. Lab Interpretation (test Abnormal code = 26507-4) [facility], xkmrfmm9333-43-91 19:18:30 Test Item Value Reference Range Interpretation Comments Hemoglobin, syringe (test 6.7 g/dL 12.0-16.0 LL HG BS results called code = 718-7) to and read ba ck by Carley BURCH at _ 04/06/2021 13 :18 __by RLS_. Lab Interpretation (test Abnormal code = 31147-0) [facility] fjmkkza5190[facility]67[facility]94 19:18:30 Test Item Value Reference Range Interpretation Comments Hemoglobin, syringe (test 6.7 g/dL 12.0-16.0 LL HG BS results called code = 718-7) to and read ba ck by Carley BURCH at _ 04/06/2021 13 :18 __by RLS_. Lab Interpretation (test Abnormal code = 32884-8) [facility] [id number] 19:18:30 Test Item Value Reference Range Interpretation Comments Hemoglobin, syringe (test 6.7 g/dL 12.0-16.0 LL HG BS results called code = 718-7) to and read ba ck by Carley BURCH at _ 04/06/2021 13 :18 __by RLS_. Lab Interpretation (test Abnormal code = 57085-7) [facility] [id number] 19:18:30 Test Item Value Reference Range Interpretation Comments Hemoglobin, syringe (test 6.7 g/dL 12.0-16.0 LL HG BS results called code = 718-7) to and read ba ck by Carley BURCH at _ 04/06/2021 13 :18 __by RLS_. Lab Interpretation (test Abnormal code = 65376-6) [facility] [id number] 19:18:30 Test Item Value Reference Range Interpretation Comments Hemoglobin, syringe (test 6.7 g/dL 12.0-16.0 LL HG BS results called code = 718-7) to and read ba ck by Carley BURCH at _ 04/06/2021 13 :18 __by RLS_. Lab Interpretation (test Abnormal code = 19537-6) [facility] xmnoajj9873-29-07 19:18:30 Test Item Value Reference Range Interpretation Comments Hemoglobin, syringe (test 6.7 g/dL 12-16 LL HG BS results called code = 718-7) to and read ba ck by Carley BURCH at _ 04/06/2021 13 :18 __by RLS_. Lab Interpretation (test Abnormal code = 35792-4) [facility] [facility], [id number] 19:18:30 Test Item Value Reference Range Interpretation Comments Hemoglobin, syringe (test 6.7 g/dL 12.0-16.0 LL HG BS results called code = 718-7) to and read ba ck by Carley BURCH at _ 04/06/2021 13 :18 __by RLS_. Lab Interpretation (test Abnormal code = 94113-1) [facility] [id number] 19:18:30 Test Item Value Reference Range Interpretation Comments Hemoglobin, syringe (test 6.7 g/dL 12.0-16.0 LL HG BS results called code = 718-7) to and read ba ck by Carley BURCH at _ 04/06/2021 13 :18 __by RLS_. Lab Interpretation (test Abnormal code = 83741-3) [facility] [id number] 17:19:00 Test Item Value Reference Range Interpretation Comments ABO grouping (test code = 883-9) A Rh type (test code = 74207-5) NEG Antibody screen (gel) (test code = NEG 890-4) [facility] [Presence] in Respiratory specimen by CHANTEL with probe [id number] 15:56:37 Test Item Value Reference Range Interpretation Comments SARS-CoV-2 (COVID-19) RNA [Presence] Detected Not-Detected in Respiratory specimen by CHANTEL with probe detection (test code = 94208-0) 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 (test code = 40449-5) Whether the patient has symptoms related to condition of interest (test code = 49123-7) Patient was hospitalized because of this condition (test code = 42377-1) Whether the patient was admitted to intensive care unit (ICU) for condition of interest (test code = 12746-6) Whether patient resides in a congregate care setting (test code = 48450-8) [facility] (COVID-19) RNA [Presence] in Respiratory specimen by CHANTEL with probe [id number] 00:59:54 Test Item Value Reference Range Interpretation Comments SARS-CoV-2 (COVID-19) RNA Not detected Not-Detected [Presence] in Respiratory specimen by CHANTEL with probe detection (test code = 68318-3) 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 (test code = 89761-0) Whether the patient has symptoms related to condition of interest (test code = 07146-7) Patient was hospitalized because of this condition (test code = 84569-0) Whether the patient was admitted to intensive care unit (ICU) for condition of interest (test code = 95248-6) Whether patient resides in a congregate care setting (test code = 65525-9) [facility] Pre/Post [id number] 00:53:16 Test Item Value Reference Range Interpretation [...] 13:01,-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- [facility] Pre/Post [id number] 00:53:16 Test Item Value Reference Range Interpretation [...] 13:01,-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- [facility] Pre/Post [id number] 00:53:16 Test Item Value Reference Range Interpretation [...] 13:01,-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- [facility] Pre/Post [id number] 00:53:16 Test Item Value Reference Range Interpretation [...] 13:01,-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- [facility] Pre/Post [id number] 00:53:16 Test Item Value Reference Range Interpretation [...] 13:01,-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- [facility] Pre/Post [id number] 00:53:16 Test Item Value Reference Range Interpretation [...] 13:01,-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- [facility] Pre/Post [id number] 00:53:16 Test Item Value Reference Range Interpretation [...] 13:01,-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- [facility] Pre/Post [id number] 00:53:16 Test Item Value Reference Range Interpretation [...] 13:01,-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- [facility] Pre/Post [id number] 00:53:16 Test Item Value Reference Range Interpretation [...] 13:01,-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- [facility] Pre/Post [id number] 00:53:16 Test Item Value Reference Range Interpretation [...] 13:01,-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- [facility] Pre/Post [id number] 00:53:16 Test Item Value Reference Range Interpretation [...] 13:01,-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- [facility] 12 [id number] 22:40:10 Test Item Value Reference Range Interpretation [...] rhythm precludes rhythm comparison, needs review- [facility] [id number] 20:43:36 Test Item Value Reference Range Interpretation Comments POC glucose (test code 208 mg/dL 65-99 [facility] Name: Melody = 11566-6) CanadiTariq ID: [id number] able: HMW Notified excel expert Interpretation Abnormal (test code = 18905-6) [facility] [Presence] in Respiratory specimen by CHANTEL with probe [id number] 00:35:59 Test Item Value Reference Range Interpretation Comments SARS-CoV-2 (COVID-19) RNA Not detected Not-Detected [Presence] in Respiratory specimen by CHANTEL with probe detection (test code = 95967-8) 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 (test code = 82604-0) Whether the patient has symptoms related to condition of interest (test code = 85684-7) Patient was hospitalized because of this condition (test code = 44444-2) Whether the patient was admitted to intensive care unit (ICU) for condition of interest (test code = 01484-0) Whether patient resides in a congregate care setting (test code = 02618-8) [facility] ED Preliminary Interpretation - Not an Order 2020-08-06 18:13:40 Test Item Value Reference Range Interpretation Comments BETH (test code = BETH) Norman Nolan MD 08/06/2020 10:25 [facility] ED Preliminary Interpretation - Not an OrderPerformed by: Norman Nolan MDAuthorized by: Norman Nolan MD ECG reviewed by ED Physician in the absence of a fulfillment coordinator: yes Interpretation: Interpretation: abnormal Rate: ECG rate: 65 BPM ECG rate assessment: normal Rhythm: Rhythm: other rhythm Ectopy: Ectopy: none QRS: QRS axis: Normal QRS intervals: Normal (92 ms)Conduction: Conduction: normal ST segments: ST segments: AbnormalT waves: T waves: non-specific Other findings: Other findings: prolonged qTc interval Comments: QT/QTc: 534/555 msPR Interval: * ms Lab Interpretation Abnormal (test code = 84691-5) [facility], (w Contrast, Strain and 3D if needed)2020-07-15 01:37:44 Test Item Value Reference Range Interpretation Comments Ao Root Diameter 3.24 cm (test code = 8253224036) AoV Area, Vmax (test 1.67 cm2 code = 8535604817) AoV Area, VTI (test 1.76 cm2 code = 0190712832) AoV Mean PG (test mmHg code = 3966775865) AoV Peak PG (test mmHg code = 2416512958) AoV Vmax (test code 1.72 m/s = 8987128298) AoV VTI (test code = 0.35 m 3629226598) IVS,d (test code = 1.06 cm 7355441761) IVS/LVPW,2D (test code = 9301700711) Left Atrium 4.44 cm Dimension Anterior (test code = 6245962522) LA Area d A4C (test 20.62 cm2 code = 3879612350) LV,d (test code = 5.80 cm 7285570046) LV EF,2D (test code 38.89 % = 0479899563) LV,s (test code = 4.92 cm 7764798511) LVOT area (test code 3.49 cm2 = 6252222154) LVOT Diam,S (test 2.11 cm code = 3818179592) LVOT Vmax (test code 0.82 m/s = 1076304379) LVOT VTI (test code 0.18 m = 6816309759) LVPWD,d (test code = 1.02 cm 0010344488) PV Mean Grad (test mmHg code = 6695620490) PV Pk Grad (test mmHg code = 3825048745) PV VMAX (test code = 1.32 m/s 2515576985) PV VTI (test code = 0.26 m 8278942075) RVOT Vmax (test code 0.59 m/s = 7856480974) RVSP (TR) (test code mmHg = 9335108999) TR Vpeak (test code 2.95 mm/s = 6519745176) MV E A ratio (test code = 2333620856) TR pk grad (test mmHg code = 2335530588) PV Vmn (test code = 8348672730) MR Vmax (test code = 5.16 m/s 5163538258) E wave decelartion msec time (test code = 4572732187) MV Peak A Nick (test 1.10 m/s code = 6740094540) MV valve area p 1/2 5.06 cm2 method (test code = 5553894776) MV Peak E Nick (test 1.00 m/s code = 8051313496) MV stenosis pressure 43.50 ms 1/2 time (test code = 1776560827) LVOT stroke volume 0.63 cm3 (test code = 3063492736) AV LVOT peak mmHg gradient (test code = 8197352277) RVSP (test code = mmHg 4764616296) Ao Root Diameter 3.24 cm (test code = 4759630006) MV mean gradient mmHg (test code = 9686418421) LV SYS VOL (test 114.00 ml code = 3066885401) LV CURRY VOL (test 166.56 ml code = 6088906825) LV SV Teich 2D (test 52.56 ml code = 6394706307) LV Vol s Teich PSAX 114.00 ml (test code = 8742641932) LVOT CO (test code = 4.52 l/min 8976666814) LVOT HR for LVOT CO bpm (test code = 0563381406) MR peak grad (test mmHg code = 8730650650) MV Vmax (test code = 1.13 m 2330285785) MV VTI Tips (test 0.18 m code = 2202080721) RVOT pk grad (test mmHg code = 1437562047) AoV Vmn (test code = 5054459512) IVS s 2D (test code = 9765238994) LV FS Teich 2D (test code = 9883539947) MV AE ratio (test code = 1409782830) LV FS Cube 2D (test code = 3747130582) LVOT Vmn (test code = 6079279424) Aov area Vmn (test 1.83 cm2 code = 7325088909) LA Vol d MOD A4C 55.09 ml (test code = 3719225375) LVOT mean grad (test mmHg code = 5124541975) MAX Pred HR (test code = 0721225362) RVOT mean grad (test mmHg code = 2421792563) RVOT Vmn (test code 0.39 m/s = 2302940097) RVOT VTI (test code 0.10 m = 3517383380) 85 of MPHR (test code = 3065331566) Calc MPHR (test code bpm = 6777785811) IVS pct thck PLAX 24.74 % (test code = 4495139830) LV SV Cube 2D (test 75.87 ml code = 3810549268) LV vol d cube 2D 195.12 ml (test code = 8953124844) LV vol s cube 2D 119.25 ml (test code = 1584146299) LVPW pct thck PLAX 35.01 % (test code = 8845081993) LVPW s PLAX (test 1.37 cm code = 0593840617) MV Decel slope (test 6.69 m/s2 code = 6551222754) Pred Exer Dur R1 (test code = 2849320708) Pred METS R1 (test code = 6479937929) Velocity Ratio 0.48 m/s (V1/V2) (test code = 4689) EF (test code = 31.56 % 1887488738) E/A ratio (test code = 4135517210) LVOT VTI (CM) (test 18.00 cm code = 8463594716) BETH (test code = Left ventricular BETH) [...] views were obtained. Study quality is adequate. [facility] protein/creatinine ratio, [id number] 18:27:55 Test Item Value Reference Range Interpretation Comments Prot/creat ratio, 0.16 mg/L Corrected result; urine (test code = previousl y reported as 2890-2) @RANDY on 2020 at 20:30 by I/AUT [facility] RNA [Presence] in Respiratory specimen by CHANTEL with probe [id number] 01:44:30 Test Item Value Reference Range Interpretation Comments SARS-CoV-2 (COVID-19) RNA Not detected Not-Detected [Presence] in Respiratory specimen by CHANTEL with probe detection (test code = 18324-4) 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 (test code = 59424-9) Whether the patient has symptoms related to condition of interest (test code = 25603-5) Patient was hospitalized because of this condition (test code = 60834-3) Whether the patient was admitted to intensive care unit (ICU) for condition of interest (test code = 31452-4) Whether patient resides in a congregate care setting (test code = 27139-1) [facility]
[2022-07-10] MEDS ORDERED: NA CHLORIDE 0.9% 500 ML ONE ×3 (19:00→21:59)
[2022-07-10 19:02] LABS: Absolute Lymphocytes (CBC) 1.4 K/uL (0.7-4.9); Hematocrit 26.9 % (36.0-45.0); Lymphocytes % 14.9 % (15.3-44.8); MPV 6.4 fL (7.6-11.3); RBC Red Blood Cell Count 3.13 M/uL (3.86-4.86)
[2022-07-10 19:21] LABS: Protime INR 1.11
[2022-07-10 19:22] LABS: AST/SGOT 13 U/L (15-37); Albumin 1.8 g/dL (3.4-5.0); Alkaline Phosphatase 120 U/L (45-117); BUN Blood Urea Nitrogen 25 mg/dL (7-18); Bicarbonate 29 mEq/L (21-32); Bilirubin Direct 0.2 mg/dL (0-0.2); Bilirubin Indirect, Calculated 0.2 (0.2-0.8); Bilirubin Total 0.4 mg/dL (0.2-1.0); Glomerular Filtration Rate 5 ml/min (=/>90); Glucose Level 153 mg/dL (74-106); Lipase 44 U/L (13-75); Magnesium 1.5 mg/dL (1.6-2.4); Potassium 2.9 mEq/L (3.5-5.1); Protein, Total 6.4 g/dL (6.4-8.2); Sodium Level 133 mEq/L (136-145); Troponin High Sensitivity 33.8 pg/mL (<58.9)
[2022-07-10 19:23] LABS: ALT/SGPT < 10 U/L (13-56)
--- NOTE | 2022-07-10 19:35 | RAD REPORT ---
EXAM DESCRIPTION: RAD - Chest Single View - 07/10/2022 7:28 pm CLINICAL HISTORY: vomiting COMPARISON: <Comparisons> FINDINGS: Lines: Pacemaker. Sternotomy. Lungs: No evidence of edema or pneumonia. Pleural: No significant pleural effusions or pneumothorax. Cardiac: The heart size is within normal limits. Mediastinum: Within normal limits. Bones: No acute fractures. Other: None IMPRESSION: No acute cardiopulmonary disease.
[2022-07-10] MEDS ORDERED: CEFEPIME 1 GM/VIAL ONE (20:05)
[2022-07-10] MEDS ORDERED: NA CHLORIDE 0.9% 100 ML ONE (20:05)
[2022-07-10] MEDS ORDERED: ONDANSETRON 4 MG/2 ML VIAL ONE (20:08)
[2022-07-10] MEDS ORDERED: FAMOTIDINE 20 MG/2 ML VIAL IV ONE (20:08)
--- NOTE | 2022-07-10 20:10 | RAD REPORT ---
EXAM DESCRIPTION: CTChest Abd Pelvis Wo Con - 07/10/2022 7:50 pm CLINICAL HISTORY: vomiting/diarrhea COMPARISON: No comparisons TECHNIQUE: CT of the chest, abdomen, and pelvis was performed. All CT scans are performed using dose optimization technique as appropriate and may include automated exposure control or mA/KV adjustment according to patient size. FINDINGS: Thorax: Chest Wall: No abnormal mass left upper chest wall pacemaker. Sternotomy. Lungs: No acute abnormality. Pleura: Small right pleural effusion. Talisha/Mediastinum: No lymphadenopathy. Aorta/Pulmonary Arteries: Unremarkable Heart: Normal size. Multi-vessel coronary artery disease. Abdomen/Pelvis: Liver: No acute abnormality or suspicious lesions. Biliary: No biliary ductal dilatation. Stomach: No significant focal abnormality. Duodenum: No significant focal abnormality. Pancreas: No significant abnormality. Spleen: No significant abnormality. Adrenal: No suspicious lesions. Kidney/ureter: No hydronephrosis. No renal calculi. Retroperitoneum: No retroperitoneal adenopathy. Vascular: No aneurysm. Atherosclerosis. Bowel: Mild wall thickening extending from the hepatic flexure through the rectum.. Normal appendix . Peritoneum: Peritoneal dialysis catheter in the right lower quadrant. Trace perihepatic ascites. Bladder: Grossly unremarkable. Reproductive: No adnexal masses. Bones: No acute fracture. Pronounced osteopenia. Other: n/a IMPRESSION: 1. Small nonspecific right pleural effusion but otherwise no acute process in the chest. 2. Bladder gas. This could be secondary to either infection or recent instrumentation. 3. Possible mild colitis.
--- NOTE | 2022-07-10 20:25 | ER ---
Nurse's Notes [facility] [place] Name: Sierra Iqbal Age: 82 yrs Sex: Female : 1940 Arrival Date: 07/10/2022 Time: 18:28 Bed 15 Private MD: Diagnosis: Severe sepsis with septic shock;Infectious gastroenteritis and colitis, unspecified;UTI/ Urinary tract infection, site not specified Presentation: 07/10 18:32 Chief complaint: EMS states: n/v/d x1 week. 4mg IM zofran given em route to left kc6 deltoid, BGL 155. Coronavirus screen: Vaccine status: Patient reports receiving the 2nd dose of the covid vaccine. At this time, the client does not indicate any symptoms associated with coronavirus-19. Ebola Screen: No symptoms or risks identified at this time. Initial Sepsis Screen: Does the patient meet any 2 criteria? Systolic BP < 90 mmHg. Does the patient have a suspected source of infection? No. Patient's initial sepsis screen is negative. Risk Assessment: Do you want to hurt yourself or someone else? Patient reports no desire to harm self or others. Onset of symptoms was July 10, 2022. 18:32 Method Of Arrival: EMS: [facility] kc6 18:32 Acuity: BRAD 3 kc6 Triage Assessment: 18:33 General: Appears in no apparent distress. comfortable, ill, Behavior is calm, kc6 cooperative, appropriate for age. Pain: Denies pain. EENT: No signs and/or symptoms were reported regarding the EENT system. Neuro: Osorio Agitation-Sedation Scale (RASS): 0 - Alert and Calm Level of Consciousness is awake, alert, obeys commands, Oriented to person, place, time, situation, Appropriate for age. Cardiovascular: Capillary refill < 3 seconds. Respiratory: Airway is patent Trachea midline Respiratory effort is even, unlabored, Respiratory pattern is regular, symmetrical. GI: Abdomen is flat, non-distended, Peritoneal dialysis catheter capped. Site is clean and dry. Bowel sounds present X 4 quads. Abd is soft and non tender X 4 quads. Reports diarrhea, nausea, vomiting. : No signs and/or symptoms were reported regarding the genitourinary system. Derm: No signs and/or symptoms reported regarding the dermatologic system. Skin is pale. Musculoskeletal: No signs and/or symptoms reported regarding the musculoskeletal system. Circulation, motion, and sensation intact. Capillary refill < 3 seconds, Range of motion: intact in all extremities. Historical: - Allergies: 18:33 No Known Allergies; kc6 - PMHx: 18:33 Congestive heart failure; CVA; diabetes mellitus; ESRD; Hypercholesterolemia; kc6 Hypertensive disorder; PERITONEAL DIALYSIS; UTI; - PSHx: 18:33 bypass; Pacemaker placement; Total abdominal hysterectomy; kc6 - Immunization history:: Client reports receiving the 2nd dose of the Covid vaccine, Flu vaccine is up to date. - Social history:: Smoking status: Patient denies any tobacco usage or history of. Screenin:35 [facility] ED Fall Risk Assessment (Adult) History of falling in the last 3 months, kc6 including since admission No falls in past 3 months (0 pts) Confusion or Disorientation No (0 pts) Intoxicated or Sedated No (0 pts) Impaired Gait No (0 pts) Mobility Assist Device Used No (0 pt) Altered Elimination No (0 pt) Score/Fall Risk Level 0 - 2 = Low Risk Oriented to surroundings, Maintained a safe environment, Educated pt \T\ family on fall prevention, incl call for assistance when getting out of bed, Assessed \T\ reinforced patient's understanding of fall precautions, Hourly rounding (assess needs \T\ fall precautionary measures) done. Abuse screen: Denies threats or abuse. Denies injuries from another. Nutritional screening: No deficits noted. Tuberculosis screening: No symptoms or risk factors identified. Assessment: 18:32 Reassessment: please see triage assessment. kc6 19:12 General: Appears in no apparent distress. comfortable, Behavior is calm, cooperative. lg3 Pain: Denies pain. Neuro: No deficits noted. Osorio Agitation-Sedation Scale (RASS): 0 - Alert and Calm Level of Consciousness is awake, alert, obeys commands, Oriented to person, place, time, situation. Cardiovascular: No deficits noted. Denies chest pain, shortness of breath, Capillary refill < 3 seconds Clubbing of nail beds is absent JVD is absent Patient's skin is warm and dry. Respiratory: No deficits noted. Airway is patent Trachea midline Respiratory effort is even, unlabored, Respiratory pattern is regular, symmetrical. GI: Reports diarrhea, nausea, vomiting. GI: Abdomen is round non-distended, Bowel sounds present X 4 quads. : No signs and/or symptoms were reported regarding the genitourinary system. EENT: No deficits noted. No signs and/or symptoms were reported regarding the EENT system. Derm: No deficits noted. No signs and/or symptoms reported regarding the dermatologic system. Skin is intact, is healthy with good turgor, Skin is dry, Skin is normal, Skin temperature is warm. Musculoskeletal: No deficits noted. Circulation, motion, and sensation intact. Range of motion: Reports generalized weakness. 20:59 Reassessment: Patient appears in no apparent distress at this time. No changes from lg3 previously documented assessment. Patient and/or family updated on plan of care and expected duration. Pain level reassessed. Patient is alert, oriented x 3, equal unlabored respirations, skin warm/dry/pink. 22:48 Reassessment: Patient appears in no apparent distress at this time. No changes from lg3 previously documented assessment. Patient and/or family updated on plan of care and expected duration. Pain level reassessed. Patient is alert, oriented x 3, equal unlabored respirations, skin warm/dry/pink. Vital Signs: 18:32 BP 86 / 53; Pulse 97; Resp 15; Temp 98.3(O); Pulse Ox 100% on R/A; Weight 81.65 kg (R); kc6 Height 5 ft. 5 in. (R); Pain 0/10; 18:57 BP 88 / 59; Pulse 102; Resp 15 S; Pulse Ox 100% on R/A; kc6 19:12 BP 113 / 46; Pulse 88; Resp 14 S; Pulse Ox 98% on R/A; lg3 20:59 BP 115 / 61; Pulse 94; Resp 15 S; Pulse Ox 98% on R/A; lg3 21:21 BP 138 / 69; Pulse 87; Resp 17 S; Pulse Ox 98% on R/A; lg3 22:48 BP 126 / 71; Pulse 85; Resp 16 S; Pulse Ox 97% on R/A; lg3 18:32 Body Mass Index 29.95 (81.65 kg, 165.1 cm) [facility] 18:32 Pain Scale: Adult [facility] ED Course: 18:30 Patient arrived in ED. mm9 18:31 Corrine Campos, RN is Primary Nurse. kc6 18:33 Kang Salas PA is PHCP. cp 18:33 Jose L Muñoz MD is Attending Physician. cp 18:33 Triage completed. kc6 18:33 Arm band placed on. kc6 18:35 Patient has correct armband on for positive identification. Bed in low position. Call kc6 light in reach. Side rails up X2. 18:57 Inserted saline lock: 20 gauge in right antecubital area, using aseptic technique. kc6 Blood collected. 19:12 Door closed. Noise minimized. Warm blanket given. lg3 19:30 XRAY Chest (1 view) In Process Unspecified. EDMS 19:35 COVID-19 SARS RT PCR Sent. eh3 19:35 Influenza Screen (a \T\ B) Sent. eh3 19:52 CT Chest Abdomen Pelvis W/O Contrast In Process Unspecified. EDMS 20:57 Urine Culture Sent. lg3 21:05 IV discontinued, intact, bleeding controlled, No redness/swelling at site. Pressure lg3 dressing applied. 21:05 Inserted 18G midline to left upper arm. lg3 22:50 No provider procedures requiring assistance completed. Patient transferred, IV remains lg3 in place. No redness/swelling at site. Administered Medications: 18:57 Drug: NS 0.9% IV 500 ml Route: IV; Rate: bolus; Site: right antecubital; kc6 20:59 Follow up: Response: No adverse reaction; IV Status: Completed infusion; IV Intake: lg3 1000ml 19:04 CANCELLED (Physician Discretion): NS 0.9% IV 500 ml IV at bolus once cp 20:24 Drug: Ondansetron IVP 4 mg Route: IVP; Site: right antecubital; lg3 21:18 Follow up: Response: No adverse reaction; Marked relief of symptoms lg3 20:24 Drug: Famotidine IVP 20 mg Route: IVP; Site: right antecubital; lg3 21:18 Follow up: Response: No adverse reaction; Marked relief of symptoms lg3 20:57 Drug: metroNIDAZOLE IVPB 500 mg Volume: 100 ml; Route: IVPB; Infused Over: 30 mins; lg3 Site: left upper arm; 21:18 Follow up: Response: No adverse reaction; IV Status: Completed infusion; IV Intake: lg3 100ml 20:58 Drug: NS 0.9% IV 500 ml Route: IV; Rate: bolus; Site: left upper arm; lg3 21:18 Follow up: Response: No adverse reaction; IV Status: Completed infusion; IV Intake: lg3 500ml 21:18 Drug: Potassium Chloride IV 20 mEq Route: IV; Rate: calculated rate; Site: left upper 3 arm; 22:48 Follow up: IV Status: Infusion continued upon transfer lg3 21:19 Drug: Cefepime IVPB 1 grams Route: IVPB; Rate: 200 ml/hr; Infused Over: 30 mins; Site: [facility] left upper arm; 21:49 Follow up: Response: No adverse reaction; IV Status: Completed infusion; IV Intake: lg3 100ml 22:15 Drug: NS 0.9% IV 500 ml Route: IV; Rate: bolus; Site: left upper arm; lg3 22:47 Follow up: IV Status: Completed infusion; IV Intake: 500ml lg3 22:47 Drug: vancoMYCIN IVPB 1.5 grams Route: IVPB; Rate: calculated rate; Site: left upper [facility] arm; 22:48 Follow up: IV Status: Infusion continued upon transfer lg3 Medication: 22:50 VIS not applicable for this client. lg3 Intake: 20:59 IV: 1000ml; Total: 1000ml. lg3 21:18 IV: 100ml; Total: 1100ml. lg3 21:18 IV: 500ml; Total: 1600ml. lg3 21:49 IV: 100ml; Total: 1700ml. lg3 22:47 IV: 500ml; Total: 2200ml. lg3 Outcome: 20:25 ER care complete, transfer ordered by cp 22:50 Transferred by ground EMS to [facility]. lg3 22:50 Condition: stable 22:50 Instructed on the need for transfer, Demonstrated understanding of instructions. 22:50 Patient left the ED. lg3 Signatures: Dispatcher [employer] EDMS Kang Salas PA PA cp Gibson, Lacie RN RN lg3 Bushra Gonzales RN RN 3 Corrine Campos RN RN kc6 Dee Odell mm9
--- NOTE | 2022-07-10 20:25 | EDPHYS ---
Physician Documentation [facility] Name: Sierra Iqbal Age: 82 yrs Sex: Female : 1940 Arrival Date: 07/10/2022 Time: 18:28 Bed 15 Private MD: ED Physician Jose L Muñoz HPI: 07/10 18:50 This 82 yrs old Female presents to ER via EMS with complaints of cp Nausea/Vomiting/Diarrhea - lethargy. 18:50 The patient presents to the emergency department with nausea, with "dry heaves", cp vomiting, that is intermittent, diarrhea, that is continuous, abdominal pain, of the right lower quadrant, described as waxing and waning. Onset: The symptoms/episode began/occurred 1 week(s) ago. Possible causes: unknown. Historical: - Allergies: 18:33 No Known Allergies; kc6 - PMHx: 18:33 Congestive heart failure; CVA; diabetes mellitus; ESRD; Hypercholesterolemia; kc6 Hypertensive disorder; PERITONEAL DIALYSIS; UTI; - PSHx: 18:33 bypass; Pacemaker placement; Total abdominal hysterectomy; kc6 - Immunization history:: Client reports receiving the 2nd dose of the Covid vaccine, Flu vaccine is up to date. - Social history:: Smoking status: Patient denies any tobacco usage or history of. ROS: 18:55 Constitutional: Positive for poor PO intake, Negative for body aches, chills, fever. cp 18:55 Cardiovascular: Negative for chest pain. cp 18:55 Respiratory: Positive for cough, with no reported sputum, Negative for shortness of cp breath, wheezing. 18:55 Eyes: Negative for injury, pain, redness, and discharge. cp 18:55 ENT: Negative for drainage from ear(s), ear pain, sore throat, difficulty swallowing, difficulty handling secretions. 18:55 Abdomen/GI: Positive for abdominal pain, nausea, vomiting, and diarrhea, anorexia, of the right lower quadrant, Negative for constipation, hematemesis, black/tarry stool, rectal bleeding. 18:55 Back: Negative for pain at rest, pain with movement. 18:55 : Negative for urinary symptoms. 18:55 Neuro: Positive for weakness, Negative for altered mental status, dizziness, headache, loss of consciousness, syncope. 18:55 All other systems are negative. Exam: 19:29 ECG was reviewed by the Attending Physician. cp 19:30 Head/Face: Normocephalic, atraumatic. cp 19:30 Constitutional: The patient appears in no acute distress, alert, awake, non-diaphoretic, well developed, well nourished, obviously ill, uncomfortable. 19:30 Eyes: Periorbital structures: appear normal, Pupils: equal, round, and reactive to light and accomodation, Extraocular movements: intact throughout, Conjunctiva: normal, no exudate, no injection, Sclera: no appreciated abnormality, Lids and lashes: appear normal, bilaterally. 19:30 ENT: External ear(s): are unremarkable, Nose: is normal, Mouth: Lips: dry, Oral mucosa: moist, Posterior pharynx: is normal, airway is patent, no erythema, no exudate. 19:30 Neck: ROM/movement: is normal, is supple, without pain, no range of motions limitations, no meningismus. 19:30 Chest/axilla: Inspection: normal. 19:30 Cardiovascular: Rate: tachycardic, Rhythm: irregular, Edema: is not appreciated, JVD: is not appreciated. 19:30 Respiratory: 19:30 Abdomen/GI: Inspection: abdomen appears normal, Bowel sounds: active, all quadrants, Palpation: soft, in all quadrants, mild abdominal tenderness, in the right lower quadrant. 19:30 Back: pain, is absent, ROM is normal. 19:30 Skin: cellulitis, is not appreciated. 19:30 Neuro: Orientation: to person, place \\T\\ time. Mentation: able to follow commands, slow to respond, Motor: moves all fours, general weakness with no focal deficits, Sensation: no obvious gross deficits. Vital Signs: 18:32 BP 86 / 53; Pulse 97; Resp 15; Temp 98.3(O); Pulse Ox 100% on R/A; Weight 81.65 kg (R); kc6 Height 5 ft. 5 in. (R); Pain 0/10; 18:57 BP 88 / 59; Pulse 102; Resp 15 S; Pulse Ox 100% on R/A; kc6 19:12 BP 113 / 46; Pulse 88; Resp 14 S; Pulse Ox 98% on R/A; lg3 20:59 BP 115 / 61; Pulse 94; Resp 15 S; Pulse Ox 98% on R/A; lg3 21:21 BP 138 / 69; Pulse 87; Resp 17 S; Pulse Ox 98% on R/A; lg3 22:48 BP 126 / 71; Pulse 85; Resp 16 S; Pulse Ox 97% on R/A; lg3 18:32 Body Mass Index 29.95 (81.65 kg, 165.1 cm) kc6 18:32 Pain Scale: Adult kc6 Procedures: 20:48 Peripheral line: by aseptic technique a peripheral line was placed in the left LUE 18g la1 10cm midline via dynamic usg, + blood return flushes easily. MDM: 18:33 Patient medically screened. cp 19:00 Differential diagnosis: gastritis, cholecystitis, pancreatitis, viral gastroenteritis, cp gastroenteritis, colitis, sepsis. 20:19 Data reviewed: vital signs, nurses notes, lab test result(s), EKG, radiologic studies, cp CT scan, plain films. 21:31 Consideration of Admission/Observation Patient was admitted/placed on observation. sd2 Escalation of care including admission/observation considered. Management of patient was discussed with the following: Hospitalist: Unable to admit here due to lack of resources for peritoneal dialysis or CRRT. 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. I considered the following discharge prescriptions or medication management in the emergency department Medications were administered in the Emergency Department. See MAR. Independent interpretation of the following test(s) in the Emergency Department X-Ray: My interpretation is no acute change. Historians other than the Patient: Daughter/Son: provides history. Care significantly affected by the following chronic conditions: Diabetes, Chronic Kidney Disease. Post IV fluid administration reassessment for Sepsis: Client not prescribed the 30 mL/kg IVF due to: concern related to renal failure. Sepsis focused reassessment complete. Focused assessment performed: July 10, 2022 at 21:33 Heart: Regular rate/rhythm. Lungs: noted to be clear bilaterally. Capillary refill examination performed. Capillary refill noted to be < 2 seconds. Peripheral pulse evaluation performed. Peripheral pulses noted to be 2+ slightly diminished. Skin examination performed. Skin noted to be pink. Current patient vital signs reviewed: Yes. Counseling: I had a detailed discussion with the patient and/or guardian regarding: the historical points, exam findings, and any diagnostic results supporting the discharge/admit diagnosis, lab results, radiology results, the need to transfer to another facility, for higher level of care. ED course: Transfer accepted to [facility] ICU.. 07/10 18:44 Order name: Basic Metabolic Panel; Complete Time: 19:26 cp 07/10 19:26 Interpretation: Normal except: NA 133; K 2.9; CL 94; GLUC 153; BUN 25; CRE 7.48; GFR 5; cp CA 8.0. 07/10 18:44 Order name: CBC with Diff; Complete Time: 19:23 cp 07/10 19:23 Interpretation: Normal except: RBC 3.13; HGB 8.9; HCT 26.9; RDW 21.0; MPV 6.4; JEIMY% cp 79.2; LYM% 14.9. 07/10 18:44 Order name: LFT's; Complete Time: 19:26 cp 07/10 19:26 Interpretation: Normal except: AST 13; ALT < 10; ALK 120; ALB 1.8; GLOB 4.6; A/G 0.4. cp 07/10 18:44 Order name: Magnesium; Complete Time: 19:26 cp 07/10 19:26 Interpretation: Abnormal: MG 1.5. cp 07/10 18:44 Order name: NT PRO-BNP; Complete Time: 19:26 cp 07/10 18:44 Order name: PT-INR; Complete Time: 19:23 cp 07/10 18:44 Order name: Troponin HS; Complete Time: 19:26 cp 07/10 18:44 Order name: Lactate w/ 2H reflex if indic.; Complete Time: 19:23 cp 07/10 19:23 Interpretation: Abnormal: LAC 3.4. cp 07/10 18:44 Order name: Blood Culture Adult (2) cp 07/10 18:44 Order name: Lipase; Complete Time: 19:26 cp 07/10 18:44 Order name: Urinalysis W/Microscopic; Complete Time: 20:37 cp 07/10 19:23 Order name: Influenza Screen (a \\T\\ B); Complete Time: 20:12 cp 07/10 20:12 Interpretation: Reviewed. cp 07/10 19:23 Order name: COVID-19 SARS RT PCR; Complete Time: 20:12 cp 07/10 20:12 Interpretation: Reviewed. cp 07/10 20:38 Order name: Urine Culture EDMS 07/10 18:44 Order name: XRAY Chest (1 view); Complete Time: 19:41 cp 07/10 19:41 Interpretation: Report reviewed. 07/10 19:28 Order name: CT Chest Abdomen Pelvis W/O Contrast; Complete Time: 20:12 cp 07/10 20:12 Interpretation: Report reviewed. cp 07/10 18:44 Order name: EKG; Complete Time: 18:44 cp 07/10 18:44 Order name: Cardiac monitoring; Complete Time: 18:56 cp 07/10 18:44 Order name: EKG - Nurse/Tech; Complete Time: 19:27 cp 07/10 18:44 Order name: IV Saline Lock; Complete Time: 18:56 cp 07/10 18:44 Order name: Labs collected and sent; Complete Time: 18:56 cp 07/10 18:44 Order name: O2 Per Protocol; Complete Time: 18:56 cp 07/10 18:44 Order name: O2 Sat Monitoring; Complete Time: 18:56 cp 07/10 19:47 Order name: Cath; Complete Time: 20:17 cp EC:29 Rate is 90 beats/min. Rhythm is irregular. QRS interval is normal. QT interval is cp prolonged. T waves are Inverted in leads V2, V3, V4, V5, V6. Interpreted by me. Reviewed by me. Administered Medications: 18:57 Drug: NS 0.9% IV 500 ml Route: IV; Rate: bolus; Site: right antecubital; kc6 20:59 Follow up: Response: No adverse reaction; IV Status: Completed infusion; IV Intake: lg3 1000ml 19:04 CANCELLED (Physician Discretion): NS 0.9% IV 500 ml IV at bolus once cp 20:24 Drug: Ondansetron IVP 4 mg Route: IVP; Site: right antecubital; lg3 21:18 Follow up: Response: No adverse reaction; Marked relief of symptoms lg3 20:24 Drug: Famotidine IVP 20 mg Route: IVP; Site: right antecubital; lg3 21:18 Follow up: Response: No adverse reaction; Marked relief of symptoms lg3 20:57 Drug: metroNIDAZOLE IVPB 500 mg Volume: 100 ml; Route: IVPB; Infused Over: 30 mins; lg3 Site: left upper arm; 21:18 Follow up: Response: No adverse reaction; IV Status: Completed infusion; IV Intake: lg3 100ml 20:58 Drug: NS 0.9% IV 500 ml Route: IV; Rate: bolus; Site: left upper arm; lg3 21:18 Follow up: Response: No adverse reaction; IV Status: Completed infusion; IV Intake: lg3 500ml 21:18 Drug: Potassium Chloride IV 20 mEq Route: IV; Rate: calculated rate; Site: left upper lg3 arm; 22:48 Follow up: IV Status: Infusion continued upon transfer lg3 21:19 Drug: Cefepime IVPB 1 grams Route: IVPB; Rate: 200 ml/hr; Infused Over: 30 mins; Site: lg3 left upper arm; 21:49 Follow up: Response: No adverse reaction; IV Status: Completed infusion; IV Intake: lg3 100ml 22:15 Drug: NS 0.9% IV 500 ml Route: IV; Rate: bolus; Site: left upper arm; lg3 22:47 Follow up: IV Status: Completed infusion; IV Intake: 500ml lg3 22:47 Drug: vancoMYCIN IVPB 1.5 grams Route: IVPB; Rate: calculated rate; Site: left upper lg3 arm; 22:48 Follow up: IV Status: Infusion continued upon transfer lg3 Disposition Summary: 07/10/22 20:25 Transfer Ordered Transfer Location: [facility] cp Reason: Higher level of care cp Condition: Serious cp Problem: new cp Symptoms: have improved cp Accepting Physician: Doctor(07/10/22 22:50) lg3 Diagnosis - Severe sepsis with septic shock cp - Infectious gastroenteritis and colitis, unspecified cp - UTI/ Urinary tract infection, site not specified cp Forms: - Medication Reconciliation Form cp - SBAR form cp Signatures: Dispatcher [employer] EDMS Yoan Etienne FNP-C [employer]CHITECT-Cla1 Kang Salas PA PA cp Keesha Mata, RN RN lg3 Rosario Rocha MD MD sd2 Corrine Campos, RN RN kc6 Corrections: (The following items were deleted from the chart) 19:04 19:03 NS 0.9% IV 500 ml IV at bolus once ordered. cp cp 22:50 20:25 Doctor cp lg3
[2022-07-10] MEDS ORDERED: KCL 20 MEQ/100 mL IVPB 100 ML IV ONE (20:33)
[2022-07-10] MEDS ORDERED: METRONIDAZOLE 500mg IVPB 500 MG/100 ML BAG IV ONE (20:33)
[2022-07-10 20:34] LABS: Specific Gravity 1.015 (1.005-1.030); Urine Bacteria >50 /HPF (<20); Urine Bilirubin NEGATIVE (Negative); Urine Blood 2+ (Negative); Urine Clarity Extremely Turbid (Clear); Urine Color Orange (Yellow); Urine Glucose NEGATIVE (Negative); Urine Mucus Slight /HPF (None Seen); Urine Protein 3+ (Negative); Urine RBC >50 /HPF (None Seen); Urine Urobilinogen Normal (Normal); Urine WBC Clump Many /HPF (None Seen); Urine pH 6.5 (5.0-7.0)
[2022-07-10] MEDS ORDERED: VANCOMYCIN 1 GM/VIAL ONE (21:58)
[2022-07-10] MEDS ORDERED: VANCOMYCIN 500 MG/VIAL ONE (21:58)
[2022-07-10] MEDS ORDERED: NA CHLORIDE 0.9% 250 ML ONE (21:59)
[2022-07-10 23:06] VITALS: TEMP 98.3
[2022-07-10 23:21] VITALS: BP 126/71; O2SAT 97
--- NOTE | 2022-07-12 11:44 | EKG ---
Test Date: 2022-07-10 Test Time: 19:22:33 Data Capture Specialist: DAMON MEASUREMENT RESULTS: Intervals: Rate: 90 NM: QRSD: 98 QT: 454 QTc: 555 [place]: P: NM: QRS: 24 T: 198 INTERPRETIVE STATEMENTS: Atrial fibrillation Posterior infarct, age undetermined ST & T wave abnormality, consider inferolateral ischemia or digitalis effect Prolonged QT Abnormal ECG Compared to ECG 05/26/2022 11:45:24 Myocardial infarct finding now present Sinus rhythm no longer present ST (T wave) deviation still present Possible ischemia still present Electronically Signed On 07-12-22 11:41:43 CDT by Ned Matthews
== END 2022-07-10 22:50 | disposition short-term general hospital (02) ==
LOC: ER 18:28
PROC: 05HF33Z Insertion of Infusion Device into Left Cephalic Vein, Percutaneous Approach (ICD-10-PCS; principal; 2022-07-10)
DX: A41.9 Sepsis, unspecified organism (principal); A09 Infectious gastroenteritis and colitis, unspecified; R65.21 Severe sepsis with septic shock; N39.0 Urinary tract infection, site not specified; E11.22 Type 2 diabetes mellitus with diabetic chronic kidney disease; I13.2 Hypertensive heart and chronic kidney disease with heart failure and with stage 5 chronic kidney disease, or end stage renal disease; I50.9 Heart failure, unspecified; N18.6 End stage renal disease; Z99.2 Dependence on renal dialysis; Z95.0 Presence of cardiac pacemaker; Z95.1 Presence of aortocoronary bypass graft; Z20.822 Contact with and (suspected) exposure to COVID-19
CPT/HCPCS: 93005; 87040 ×2; 87088; 85025; 81001; 87086; 80048; 36415; 83735; 85610; 80076; 83605; 84484; 83690; 83880; 87804 ×2; 71250; 74176; 71045; 99285; 36569; U0003; J3480; J2405; J7050; J7040 ×3; J0692